=== PATIENT | female | born 1940 | race Caucasian/White ===

== ENCOUNTER → 2016-07-09 | Outpatient (CLI) | payer OTHER ==
[~2016-07-09] MED LIST: ACET325T96 PO; AMLO-110 PO; ASCO500C43 PO; ATOR-24 PO; CALCTAB5 PO; CHOL200027 PO; EFFSR75 PO; ENAL10TA88 PO; FRS/40 PO; MCTP TOP; METO50TA16 PO; MRLP120 PO; MULT-190 PO; MULTTAB58 PO; NVLGI; PANT1TAB48 PO; TOLT1CAP3 PO
[2016-07-09 12:04] LABS: HEMATOCRIT 39.3 % (37-47); MEAN CELL VOLUME 85.8 fL (80-100); MEAN CORPUSCULAR HEMOGLOBIN 27.3 pg (25-34); MEAN CORPUSCULAR HGB CONC 31.8 g/dl (32-36); MEAN PLATELET VOLUME 9.8 fL (7.4-10.4); PLATELET COUNT 213 K/uL (130-400); RED BLOOD COUNT 4.58 M/uL (4.2-5.4); WHITE BLOOD COUNT 9.52 K/uL (4.8-10.8)
[2016-07-09 12:14] LABS: ESTIMATED AVERAGE GLUCOSE 157 mg/dl; HA1C FLAG Normal (Normal)
[2016-07-09 12:17] LABS: BLOOD UREA NITROGEN 35 mg/dl (7-18); GLUCOSE 158 mg/dl (70-99)
[2016-07-09 12:18] LABS: BUN/CREATININE RATIO 22.1 (10-20); CALCIUM 9.2 mg/dl (8.5-10.1); CARBON DIOXIDE 29 mmol/L (21-32); CHLORIDE 104 mmol/L (98-107); PHOSPHORUS 2.8 mg/dl (2.5-4.9); POTASSIUM 4.5 mmol/L (3.5-5.1); SODIUM 141 mmol/L (136-145)
[2016-07-09 12:31] LABS: URINE PROTIEN/CREAT RATIO 0.9 (0-0.2); URINE TOTAL PROTEIN 78.9 mg/dl (0-11.9)
== END | disposition home or self-care (01) ==
LOC: C.LAB 10:44
PROVIDERS: ATTEND Internal Medicine Nephrology
DX: D64.9 Anemia, unspecified (principal); N18.3 Chronic kidney disease, stage 3 (moderate); I12.9 Hypertensive chronic kidney disease with stage 1 through stage 4 chronic kidney disease, or unspecified chronic kidney disease; N25.81 Secondary hyperparathyroidism of renal origin; E11.22 Type 2 diabetes mellitus with diabetic chronic kidney disease

== ENCOUNTER → 2016-08-23 | Outpatient (CLI) | payer OTHER ==
[2016-08-23 12:09] LABS: HEMATOCRIT 38.1 % (37-47); MEAN CELL VOLUME 84.5 fL (80-100); MEAN CORPUSCULAR HEMOGLOBIN 27.5 pg (25-34); MEAN CORPUSCULAR HGB CONC 32.5 g/dl (32-36); MEAN PLATELET VOLUME 9.7 fL (7.4-10.4); PLATELET COUNT 234 K/uL (130-400); RED BLOOD COUNT 4.51 M/uL (4.2-5.4); WHITE BLOOD COUNT 6.61 K/uL (4.8-10.8)
[2016-08-23 12:27] LABS: URINE APPEARANCE CLEAR (CLEAR); URINE BILIRUBIN NEG (NEG); URINE COLOR YELLOW; URINE NITRITE NEG (NEG); URINE SPECIFIC GRAVITY 1.009 (1.000-1.030); UROBILINOGEN NEG (NEG)
[2016-08-23 12:32] LABS: ALT/SGPT 20 U/L (12-78); AST/SGOT 18 U/L (15-37); BLOOD UREA NITROGEN 41 mg/dl (7-18); BUN/CREATININE RATIO 27.4 (10-20); CALCIUM 9.1 mg/dl (8.5-10.1); CARBON DIOXIDE 27 mmol/L (21-32); CHLORIDE 105 mmol/L (98-107); GLUCOSE 164 mg/dl (70-99); POTASSIUM 4.4 mmol/L (3.5-5.1); SODIUM 142 mmol/L (136-145)
[2016-08-23 12:37] LABS: ALKALINE PHOSPHATASE 98 U/L (45-117); CHOLESTEROL 239 mg/dl (0-200); CHOLESTEROL/HDL RATIO 5.6; HDL CHOLESTEROL 43 mg/dl; LDL CHOLESTEROL CALCULATED 145 mg/dl; PHOSPHORUS 3.1 mg/dl (2.5-4.9); TRIGLYCERIDES 256 mg/dl (0-150); VERY LOW DENSITY LIPOPROT CALC 51 mg/dl
[2016-08-23 12:38] LABS: URINE PROTIEN/CREAT RATIO 0.8 (0-0.2); URINE TOTAL PROTEIN 16.7 mg/dl (0-11.9)
[2016-08-23 12:39] LABS: MANUAL MICROSCOPIC REQUIRED? NO; REVIEW REQ? NO
== END | disposition home or self-care (01) ==
LOC: C.LAB 10:26
PROVIDERS: ATTEND Family Medicine
DX: I12.9 Hypertensive chronic kidney disease with stage 1 through stage 4 chronic kidney disease, or unspecified chronic kidney disease (principal); E78.5 Hyperlipidemia, unspecified; D64.9 Anemia, unspecified; N25.81 Secondary hyperparathyroidism of renal origin

== ENCOUNTER → 2016-10-02 | Outpatient (CLI) | payer OTHER ==
--- NOTE | 2016-10-03 14:06 | MAMMOGRAPHY REPORT ---
BILATERAL DIGITAL SCREENING MAMMOGRAM WITH CAD: 10/02/2016 CLINICAL HISTORY: Routine screening. Patient has no complaints. TECHNIQUE: Bilateral CC, MLO and CC views with nipples in profile were obtained. Current study was also evaluated with a Computer Aided Detection (CAD) system. COMPARISON: Comparison is made to exams dated: 09/12/2015 mammogram, 08/12/2012 mammogram, 10/11/2011 [facility] mogram, 04/09/2011 mammogram, 04/04/2010 mammogram - [facility], and 09/26/2008. BREAST COMPOSITION: There are scattered areas of fibroglandular density in both breasts. FINDINGS: There are mild vascular calcifications and scattered round and punctate benign-appearing m icrocalcifications in the breasts. No suspicious mass, architectural distortion or cluster of suspi cious microcalcifications is seen. IMPRESSION: ACR BI-RADS CATEGORY 1: NEGATIVE There is no mammographic evidence of malignancy. A 1 year screening mammogram is recommended. The p atient will receive written notification of the results. Approximately 10% of breast cancers are not detected with mammography. A negative mammographic repor t should not delay biopsy if a clinically suggestive mass is present. Christianne Forrester M.D. ay/:10/02/2016 15:47:53 Passenger Elevator Operator: Shaina COLIN(Cayla)(M), [facility] letter sent: Normal 1/2 BI-RADS Code: ACR BI-RADS Category 1: Negative
== END | disposition home or self-care (01) ==
LOC: C.MAMM 13:39
PROVIDERS: ATTEND Family Medicine
DX: Z12.31 Encounter for screening mammogram for malignant neoplasm of breast (principal)

== ENCOUNTER → 2016-10-11 | Outpatient (CLI) | payer OTHER ==
--- NOTE | 2016-10-12 13:58 | DIAGNOSTIC IMAGING REPORT ---
MAXILLOFACIAL CT WITH CONTRAST CT DOSE: 133.42 mGy.cm CLINICAL HISTORY: Large mass on palate. TECHNIQUE: Axial images through the face were obtained following intravenous injection 119 cc Optiray 320 IV. Sagittal and coronal reconstructions were viewed. COMPARISON STUDY: MRI of the brain April 15, 2007. FINDINGS: Visualized portions of the intracranial contents are unremarkable. Orbits are within normal limits. Mastoid air cells are clear. Note is made of a 9 mm periapical lucency of the symphysis of the mandible shown on axial image 192 of 241. This is associated with the roots for the medial mandibular incisors. Note is made of a 2 x 1.7 cm mixed attenuation destructive focus within the right anterior aspect of the maxilla which extends into the hard palate. This has an enhancing irregular rind with central hypodensity. This erodes through the cortex. This is associated with the roots of the right medial and lateral maxillary incisors. A prominent right level 2 lymph node measures 9 mm in short axis diameter. Slight asymmetry is noted within visualized portions of the lingual tonsils. This is only partially imaged on this exam. IMPRESSION: 1. 2 x 1.7 cm mass-like abnormality with associated bony erosion of the right anterior maxilla, associated with the roots of the right lateral and medial maxillary incisors. This is nonspecific and could reflect an infectious etiology however malignancy is within the differential given the aggressive appearance. 2. 9 mm periapical lucency of the symphysis of the mandible associated with the roots of the bilateral medial incisors. This is also nonspecific and likely odontogenic. 3. Prominent but nonenlarged right level 2 cervical lymph node. Electronically signed by: Emigdio Ibrahim M.D. 10/12/2016 1:57 PM Dictated Date/Time: 10/11/2016 2:43 PM
== END | disposition home or self-care (01) ==
LOC: C.CTS 12:54
PROVIDERS: ATTEND Dentist Oral and Maxillofacial Surgery
DX: R22.0 Localized swelling, mass and lump, head (principal)

== ENCOUNTER 2016-12-03 11:56 | Day surgery (SDC) | payer OTHER ==
[2016-11-13 14:54] VITALS: BMI 40.0
--- NOTE | 2016-11-13 15:26 | PAT Medication Instructions ---
Service Date Nov 13, 2016. Current Home Medication List Acetaminophen Tab (Tylenol), 650-975 MG PO BID PRN for PRN Amlodipine (Norvasc), 5 MG PO BID Ascorbic Acid (Vitamin C 500 mg), 500 MG PO BID Atorvastatin (Lipitor), 40 MG PO QPM Calcium (Caltrate), 600 MG PO BID Cholecalciferol (Vitamin D-3), 1 TAB PO QAM Enalapril (Vasotec), 20 MG PO BID Furosemide (Lasix), 40 MG PO QAM Insulin Aspart (Novolog), DIRECTED Metoprolol Tartrate (Lopressor) (Lopressor), 50 PO BID Multiple Vitamin (Multivitamin), 1 TAB PO QAM Ocuvite Preservision (Ocuvite Preservision), 1 TAB PO BID Pantoprazole (Protonix), 40 MG PO QAM Polyethylene (Miralax), 1 DOSE PO DAILY PRN for PRN Tolterodine Tartrate (Tolterodine Tartrate ER), 2 MG PO BID Venlafaxine Ext Rel (Effexor Extended Rel *), 75 MG PO BID Medication Instructions For Your Scheduled Surgery - Keep at basal rate as of midnight the night before surgery. No bolus. : Insulin Aspart (Novolog), DIRECTED - Hold the following medications 24 hours prior to surgery: Enalapril (Vasotec), 20 MG PO BID - Hold the following medications the morning of surgery: Ascorbic Acid (Vitamin C 500 mg), 500 MG PO BID Calcium (Caltrate), 600 MG PO BID Furosemide (Lasix), 40 MG PO QAM Multiple Vitamin (Multivitamin), 1 TAB PO QAM Polyethylene (Miralax), 1 DOSE PO DAILY PRN for PRN Cholecalciferol (Vitamin D-3), 1 TAB PO QAM Ocuvite Preservision (Ocuvite Preservision), 1 TAB PO BID - Take the following medications the morning of surgery with a sip of water OTHERWISE NOTHING TO EAT OR DRINK AFTER MIDNIGHT: Acetaminophen Tab (Tylenol), 650-975 MG PO BID PRN for PRN (may take if needed up to 4 hours prior to surgery) Amlodipine (Norvasc), 5 MG PO BID Tolterodine Tartrate (Tolterodine Tartrate ER), 2 MG PO BID Venlafaxine Ext Rel (Effexor Extended Rel *), 75 MG PO BID Metoprolol Tartrate (Lopressor) (Lopressor), 50 PO BID Pantoprazole (Protonix), 40 MG PO QAM - Take the following medications as scheduled the night before surgery: Acetaminophen Tab (Tylenol), 650-975 MG PO BID PRN for PRN Amlodipine (Norvasc), 5 MG PO BID Atorvastatin (Lipitor), 40 MG PO QPM Ascorbic Acid (Vitamin C 500 mg), 500 MG PO BID Calcium (Caltrate), 600 MG PO BID Tolterodine Tartrate (Tolterodine Tartrate ER), 2 MG PO BID Venlafaxine Ext Rel (Effexor Extended Rel *), 75 MG PO BID Metoprolol Tartrate (Lopressor) (Lopressor), 50 PO BID Ocuvite Preservision (Ocuvite Preservision), 1 TAB PO BID If you have any questions please call us at [phone] or [phone] or [phone]
[2016-11-13 16:10] LABS: BASO % 0.2 %; BASO ABS # 0.02 K/uL (0-0.2); COMPLETE YES; EOS % 2.6 %; HEMATOCRIT 37.1 % (37-47); IG% 0.2 %; LYMPH % 27.6 %; LYMPH ABS # 2.24 K/uL (1.2-3.4); MEAN CELL VOLUME 86.9 fL (80-100); MEAN CORPUSCULAR HEMOGLOBIN 27.4 pg (25-34); MEAN CORPUSCULAR HGB CONC 31.5 g/dl (32-36); MEAN PLATELET VOLUME 9.6 fL (7.4-10.4); MONO % 11.2 %; NEUT % 58.2 %; PLATELET COUNT 216 K/uL (130-400); RED BLOOD COUNT 4.27 M/uL (4.2-5.4); WHITE BLOOD COUNT 8.12 K/uL (4.8-10.8)
[2016-11-13 16:17] LABS: PROTHROMBIN TIME (PATIENT) 10.6 SECONDS (9.0-12.0)
[2016-11-13 16:25] LABS: BUN/CREATININE RATIO 22.2 (10-20); CALCIUM 9.3 mg/dl (8.5-10.1); CREATININE 1.2 mg/dl (0.60-1.20); POTASSIUM 4.7 mmol/L (3.5-5.1)
[~2016-12-03] VITALS: Ht 167.6 cm; Wt 112.6 kg
[~2016-12-03 11:56] MED LIST changes: +CEFAZOLIN 2000 MG/60 ML D5W IV SCH; +LACTATED RINGER'S 1000ML 1,000 ML IV SCH; -MCTP TOP; +OXYMETAZOLINE HCL 0.05% NA SPR 15 ML BTL ONE
[2016-12-03 12:43] VITALS: BP 165/71; PULSE 63; TEMP 36.8; BMI 40.0
[2016-12-03 12:49] VITALS: Ht 167.6 cm; Wt 112.6 kg
[2016-12-03] MEDS ORDERED: PHENYLEPHRINE HCL INJ 10 MG/ML VIAL ONE (13:13)
[2016-12-03] MEDS ORDERED: EpHEDrine SULFATE INJ 50 MG/ML AMP ONE (13:13)
[2016-12-03] MEDS ORDERED: LIDOCAINE HCL 2% 2 ML VIAL (20MG/ML) ONE (13:13)
[2016-12-03] MEDS ORDERED: SUCCINYLCHOLINE CHLORIDE 20 MG/ML 10 ML VIAL IV ONE (13:13)
[2016-12-03] MEDS ORDERED: DEXAMETHASONE SOD INJ 4 MG/ML VIAL ONE (13:13)
[2016-12-03] MEDS ORDERED: NEOSTIGMINE METHYLSULFATE 5 MG/5 ML SYR ONE (13:14)
[2016-12-03] MEDS ORDERED: PROPOFOL IV EMULSION 10 MG/ML 20 ML VIAL IV ONE (13:14)
[2016-12-03] MEDS ORDERED: ROCURONIUM BROMIDE 10 MG/ML 5 ML VIAL ONE (13:14)
[2016-12-03] MEDS ORDERED: FENTANYL CITRATE INJ 50 MCG/1 ML 2 ML VIAL ONE (13:14)
[2016-12-03] MEDS ORDERED: ONDANSETRON INJ 2 MG/ML 2 ML VIAL ONE (13:14)
[2016-12-03] MEDS ORDERED: GLYCOPYRROLATE INJ 0.2 MG/ML VIAL ONE (13:14)
[2016-12-03] MEDS ORDERED: CHLORHEXIDINE GLUCONATE 0.12% 15 ML UDP ONE (14:02)
[2016-12-03] MEDS ORDERED: BUPIVACAINE/EPINEPHRINE 0.5% 1:200,000 1.8 ML CARP ONE (14:03)
--- NOTE | 2016-12-03 14:12 | History & Physical Bridge Note ---
H&P Re-Evaluation Bridge Note: I have examined the patient, reviewed the History & Physical and in the interval since the performance of the History & Physical I have noted the following changes of clinical significance: No changes noted
[2016-12-03] MEDS ORDERED: MEPERIDINE HCL 25 MG/ML CARP IV PRN (14:30)
[2016-12-03] MEDS ORDERED: HYDROmorphone INJ 2 MG/ML SYR/VIAL IV PRN (14:30)
[2016-12-03] MEDS ORDERED: PHENYLEPHRINE 100MCG/ML 5ML SYR IV PRN (14:30)
[2016-12-03] MEDS ORDERED: FENTANYL CITRATE INJ 50 MCG/1 ML 2 ML VIAL IV PRN (14:30)
[2016-12-03] MEDS ORDERED: EpHEDrine SULFATE INJ 50 MG/ML AMP IV PRN (14:30)
[2016-12-03] MEDS ORDERED: FLUMAZENIL 0.1 MG/1 ML 10 ML VIAL IV PRN (14:30)
[2016-12-03] MEDS ORDERED: ATROPINE SULFATE 0.1 MG/ML 5ML SYR IV PRN (14:30)
[2016-12-03] MEDS ORDERED: ONDANSETRON INJ 2 MG/ML 2 ML VIAL IV PRN ×2 (14:30→16:00)
[2016-12-03] MEDS ORDERED: LABETALOL HCL IV 5 MG/ML 20ML IV PRN (14:30)
[2016-12-03] MEDS ORDERED: NALOXONE HCL 0.4 MG/1 ML VIAL/CARP IV PRN (14:30)
[2016-12-03] MEDS ORDERED: D5W AND 1/2NSS + 20MEQ KCL 1,000 ML IV SCH (15:52)
--- NOTE | 2016-12-03 15:52 | [facility] Post Operative Brief Note ---
Immediate Operative Summary Operative Date Dec 03, 2016. Pre-Operative Diagnosis Palatal Lesion, Infected Teeth x 9 Post-Operative Diagnosis Palatal Lesion, Infected Teeth Procedure(s) Performed Excision and Biopsy of Palatal Lesion and Removal of Infected Teeth Associated with Large Cyst Surgeon Dr. Sachin Acosta Special Crimes Investigator Surgeon(s) Efren Velasco, GOSIA Estimated Blood Loss 100mL Findings carious teeth and large defect of the right palate at lest 1 x 1 cm with loss of bone and exposure of the nasal floor Specimens Specimen A. Drains none Anesthesia ga and local Complication(s) None Disposition Recovery Room / PACU
[2016-12-03] MEDS ORDERED: MoRPHine SULFATE 2 MG/ML CARP IV PRN (16:00)
[2016-12-03] MEDS ORDERED: OXYMETAZOLINE HCL 0.05% NA SPR 15 ML BTL PRN (16:00)
[2016-12-03] MEDS ORDERED: HYDROCODONE/ACETAMOPHEN 5/325MG TAB PO PRN (16:00)
[2016-12-03] MEDS ORDERED: LORAZEPAM INJ 1 MG in SYRINGE 0 ML IV PRN (16:00)
--- NOTE | 2016-12-03 16:00 | Discharge Instructions ---
Discharge Instructions Date of Service Dec 03, 2016. Visit Reason for Visit: Palatal Lesion Discharge Discharge Diagnosis / Problem: large infected lesion of the right palate Discharge Goals Goal(s): Decrease discomfort, Improve function Activity Recommendations Activity Limitations: as noted below Lifting Limitations: no more than 10 pounds Exercise/Sports Limitations: until after follow-up appointment May Resume Sexual Activity: after follow-up appointment Shower/Bathe: tomorrow Driving or Machine Use: resume 3 days after discharge Weightbearing Status: Left weightbearing (as tolerated), Right weightbearing ( as tolerated) soft food only Anesthesia . Post Anesthesia Instructions: If you have had General Anesthesia or IV Sedation: * Do not drive today. * Resume driving when surgeon permits. * Do not make important decisions or sign legal documents today. * Call surgeon for: 1. Temperature elevations greater than 101 degrees F. 2. Uncontrollable pain. 3. Excessive bleeding. 4. Persistent nausea and vomiting. 5. Medication intolerance (nausea, vomiting or rash). * For nausea and vomiting use only clear liquids such as: tea, soda, bouillon until nausea subsides, then gradually increase diet as tolerated. * If you have any concerns or questions, call your surgeon's office. If physician is unavailable and it is an emergency, call 911 or go to the nearest emergency room. . Instructions / Follow-Up Instructions / Follow-Up ADDITIONAL ACTIVITY RECOMMENDATIONS: * [place] teeth after every meal. It is very important to keep your mouth clean to prevent infection. SPECIAL CARE INSTRUCTIONS: * Keep ice on the side of your face for the next 24 to 36 hours. This will help keep the swelling down. * After 36 hours, apply heat (hot water bottle or heating pad) for the next two days, as often as possible. * Tomorrow start rinsing your mouth with 1/2 teaspoon salt in 8 ounces warm water. This rinse should be used every 4-6 hours. * You may experience slight nausea. To prevent this, never take your medication on an empty stomach. If nauseated, take small sips of ruma narendra until you feel better; then you may start on applesauce and toast. * Some swelling is common. It should gradually decrease within 4-5 days. * A certain amount of bleeding is to be expected. It is often possible to control mild oozing by placing folded gauze over the area and biting down for 30 minutes. If you are unable to control excessive bleeding, call your doctor at . * You may experience some discomfort for a few days. If pain or swelling increases, call your doctor immediately at . Diet Recommendations Recommended Home Diet: diabetes diet Diet Texture: Dental Soft (bite-sized) Procedures Procedures Performed: Excision and Biopsy of Palatal Lesion and Removal of Infected Teeth Associated with Large Cyst Pending Studies Studies pending at discharge: no Work Instructions Return To Work: after follow-up Lifting Limitations: no more than 10 pounds School Instructions Return To School: after follow-up Medical Emergencies . Who to Call and When: Medical Emergencies: If at any time you feel your situation is an emergency, please call 911 immediately. . Non-Emergent Contact Non-Emergency issues call your: Hospital Doctor Contact Number: [phone] Call Non-Emergent contact if: you have a fever, temperature is above 101.5, your pain is not controlled, your pain is worsening, wound has increased drainage, wound has increased redness, you have any medication questions . . "Provider Documentation" section prepared by Sachin Acosta. . [place] Drug Monitoring Program Search Results: patient reviewed within database Drug Monitoring Findings: as expected
[2016-12-03] MEDS ORDERED: HydrALAZINE HCL 20 MG/ML VIAL IV. STA (16:24)
[2016-12-03] MEDS ORDERED: HydrALAZINE HCL 20 MG/ML VIAL ONE (16:25)
--- NOTE | 2016-12-03 16:42 | Anesthesiology Progress Note ---
Anesthesia Post Op Note Date & Time Dec 03, 2016 at 16:42 Vital Signs Pain Intensity: 0 Vital Signs Past 12 Hours Date Time Temp Pulse Resp B/P (MAP) Pulse Ox O2 Delivery O2 Flow Rate FiO2 12/03/16 16:37 36.6 59 16 153/59 (82) 97 Room Air 12/03/16 16:36 153/59 12/03/16 16:34 169/60 12/03/16 16:32 58 19 99 12/03/16 16:32 60 19 12/03/16 16:31 164/69 12/03/16 16:27 56 11 12/03/16 16:27 56 11 99 12/03/16 16:26 173/69 12/03/16 16:22 56 12 100 12/03/16 16:22 56 12 12/03/16 16:21 199/75 12/03/16 16:17 56 13 12/03/16 16:17 55 13 100 12/03/16 16:16 186/71 12/03/16 16:12 55 10 100 12/03/16 16:12 56 10 12/03/16 16:11 182/71 12/03/16 16:10 54 12 12/03/16 16:10 54 12 99 12/03/16 16:08 187/73 12/03/16 16:06 190/60 12/03/16 16:05 54 12 99 12/03/16 16:05 54 12 12/03/16 16:01 187/62 12/03/16 16:00 52 16 100 12/03/16 16:00 52 16 12/03/16 16:00 36.2 52 19 187/62 100 Mask 10 12/03/16 12:49 Room Air 12/03/16 12:43 36.8 63 20 165/71 Notes Mental Status: alert / awake / arousable, participated in evaluation Pt Amnestic to Procedure: Yes Nausea / Vomiting: adequately controlled Pain: adequately controlled Airway Patency, RR, SpO2: stable & adequate BP & HR: stable & adequate Hydration State: stable & adequate Anesthetic Complications: no major complications apparent
[2016-12-03 16:50] VITALS: BP 147/53; PULSE 62; TEMP 37.3; O2SAT 94
[2016-12-03 17:20] VITALS: BP 129/42; PULSE 59; TEMP 36.2; O2SAT 94
[2016-12-03 17:50] VITALS: BP 147/56; PULSE 55; TEMP 36.4; O2SAT 95
[2016-12-03 18:20] VITALS: BP 159/63; PULSE 57; TEMP 36.3; O2SAT 94
--- NOTE | 2016-12-04 15:20 | OPERATIVE REPORT ---
DATE OF OPERATION: 12/03/2016 OPERATION: Removal of carious teeth and 1 cm cyst of the right maxillary palate and alveolar ridge. SURGEON: Dr. Sachin Acosta. The patient was worked up in the appropriate manner and after getting medical clearance as well as cardiac clearance via an echocardiogram the patient was prepared for general anesthesia via an orotracheal intubation for the removal of multiple carious teeth and a large radiolucent area of the maxilla. When the patient first came to see me she had a rather extensive palatal swelling. CT scanning demonstrated a rather large defect of the right maxilla with extensive bone loss involving the alveolar ridge and the floor of the nose. As a matter of fact the only thing the palate from the floor of the nose was the mucoperiosteal tissue of the nose as well as the mucoperiosteal tissue of the palate. There was no intervening bone as there was a through and through defect in this area. At this time after the patient was prepped in the usual manner, the facial area was cleansed with Betadine. At this time, the facial area was then prepped in the usual manner. Sterile dressings were applied. Local anesthesia was infiltrated into the appropriate areas of the maxilla and right mandible. After adequate period of time to allow for hemostasis and local anesthetic effect. The facial area was prepped in the usual manner and sterile dressings were applied. I turned my attention first to the maxilla. The patient had approximately 8 carious teeth that were periodontally involved and needed extraction. With the use of a dental forceps, I was able to remove these carious teeth and then curettage and irrigated the sockets. Because of the irregularities of the teeth, the patient needed a rather aggressive alveoplasty to trim the bone back into a more ideal position to allow for the fabrication of dentures in the future. After this was accomplished with the use of a 15 blade, a large mucoperiosteal incision was created from the right first molar area across the midline to the left first molar area. With use of periosteal elevators, I was able to reflect the mucoperiosteal tissue anteriorly up to the anterior nasal spine and on the palate I was able to reflect the mucoperiosteal tissues back to literally degloved the palate. In order to do this, I had to resect the anterior neurovascular bundle. This was done in the following manner. Once the neurovascular bundle was visualized, I used an electrocautery instrument and excised the contents of the neurovascular bundle and then cauterizing both the stumps. I then curettaged the area vigorously. I now was able to get free axis to the palate. By doing so, I fell into an area of a lot of very dense gritty tissue on the right maxilla. There was a defect over 1 cm in diameter that extended from the midline of the palate to the alveolar ridge on the upper right side. When I started to remove this very dense gritty tissue I was able to dissect it freely from the nasal mucoperiosteal tissue and noted that there was no bone the palate from the nose. There was a through and through defect involving the lateral and cuspid area of the maxilla also on the upper right side. There was a through and through defect from the palate to the anterior vestibule. Nevertheless, with careful dissection, I was able to remove the remnants and got back to good healthy bone. Great care was taken to avoid any tissue breakdown into the floor of the nose. Once this was accomplished, I now completed my alveoplasty by smoothing and recontouring the bone to allow for nice U-shaped alveolar ridge. Each socket was now irrigated and curettaged. Once I was satisfied that all of the remnants of the cystic material were removed from the defect I once again used the electrocautery instrument to coagulate any bleeders on the palate. I then trimmed the tissues and repositioned the tissues over the alveolar ridge and with the use of a 4-0 Vicryl suture, I was able to suture in both an interrupted and continuous fashion the mucoperiosteal tissues to allow for a good watertight closure. When all was said and done, we had excellent closure of the mucoperiosteal flaps with good ridge form for the fabrication of future dentures. There were no rents in the mucoperiosteal tissues that would cause an oronasal fistula. At this time, I irrigated the contents of the oral cavity. I noted that there was no bleeding. I also irrigated the nasal cavity and could not find any rents in the mucoperiosteal tissue of the floor of the nose. At this time, I turned my attention to tooth #31, which was just periodontally involved tooth and this tooth was easily removed with the use of a dental forceps. The socket was curettaged and sutured closed with a Vicryl suture. At this time, the oropharyngeal throat pack was removed. The oral cavity was irrigated and suctioned dried and an orogastric tube was placed and evacuated the contents of the stomach. Being satisfied that the treatment plan was carried out as planned we now turned the patient over to the anesthesia department. She was allowed to recover in the usual manner. Upon full recovery she was extubated and transported to the recovery room breathing in satisfactory condition with all vital signs stable. In the recovery room, I evaluated Sonam, she was doing quite well. She was not having any bleeding or excessive swelling. I then discussed her treatment planning with her daughter in the outpatient area and they will be seeing me in my [place] office in about 10 days. They do have prescriptions at home for antibiotics and pain management. They know to call their physician if there are any issues concerning her respiratory status or any issues with any underlying medical disorders. At this time, she is doing quite well from both the general anesthesia, the oral surgery and her medical management seems to be well controlled. Postoperative instructions given to the patient as well as the prescriptions. She has a good understanding of the outcome of the surgery and the recommended postoperative care. Again, we will be following her in approximately 7-10 days as an outpatient. Again, the procedure performed was removal of the following teeth, teeth #4, 6, 7, 8, 9, 10, 11, 12 and 31, the performance of an alveoplasty involving 2 quadrants of the right and left maxilla and the excision of a rather extensive defect of the maxilla in approximately 1 to 1.5 cm in total diameter with bony destruction involving the right maxilla, palate and alveolar process. The contents of the cystic material and/or granulation fibrous tissue were sent for pathologic determination to [facility] pathology department. This is pending. The patient will be seeing me in my office in approximately 7-10 days. I attest to the content of the Intraoperative Record and any orders documented therein. Any exception s are noted below.
== END 2016-12-03 18:53 | disposition home or self-care (01) ==
LOC: C.ACU 11:56
PROVIDERS: ATTEND Dentist Oral and Maxillofacial Surgery
DX: K09.1 Developmental (nonodontogenic) cysts of oral region (principal); K02.9 Dental caries, unspecified; E11.9 Type 2 diabetes mellitus without complications; Z85.42 Personal history of malignant neoplasm of other parts of uterus; M19.90 Unspecified osteoarthritis, unspecified site; E78.00 Pure hypercholesterolemia, unspecified; F41.9 Anxiety disorder, unspecified; F32.9 Major depressive disorder, single episode, unspecified; K21.9 Gastro-esophageal reflux disease without esophagitis; E03.9 Hypothyroidism, unspecified; Z79.4 Long term (current) use of insulin; M06.9 Rheumatoid arthritis, unspecified; E66.9 Obesity, unspecified; Z90.710 Acquired absence of both cervix and uterus; Z90.89 Acquired absence of other organs; Z98.41 Cataract extraction status, right eye; Z98.42 Cataract extraction status, left eye; N18.3 Chronic kidney disease, stage 3 (moderate); I12.9 Hypertensive chronic kidney disease with stage 1 through stage 4 chronic kidney disease, or unspecified chronic kidney disease
CPT/HCPCS: 21030; 41874; D7140

== ENCOUNTER → 2017-03-20 | Outpatient (CLI) | payer OTHER ==
[~2017-03-20] MED LIST changes: -ACET325T96 PO; -CEFAZOLIN 2000 MG/60 ML D5W IV SCH; -LACTATED RINGER'S 1000ML 1,000 ML IV SCH; -OXYMETAZOLINE HCL 0.05% NA SPR 15 ML BTL ONE
[2017-03-20 15:41] LABS: HEMATOCRIT 37.4 % (37-47); MEAN CELL VOLUME 85.8 fL (80-100); MEAN CORPUSCULAR HEMOGLOBIN 27.8 pg (25-34); MEAN CORPUSCULAR HGB CONC 32.4 g/dl (32-36); MEAN PLATELET VOLUME 9.5 fL (7.4-10.4); PLATELET COUNT 219 K/uL (130-400); RED BLOOD COUNT 4.36 M/uL (4.2-5.4); WHITE BLOOD COUNT 8.04 K/uL (4.8-10.8)
[2017-03-20 15:51] LABS: URINE APPEARANCE CLEAR (CLEAR); URINE BILIRUBIN NEG (NEG); URINE COLOR YELLOW; URINE NITRITE NEG (NEG); UROBILINOGEN NEG (NEG)
[2017-03-20 15:53] LABS: MANUAL MICROSCOPIC REQUIRED? NO; REVIEW REQ? NO
[2017-03-20 16:12] LABS: ALT/SGPT 22 U/L (12-78); AST/SGOT 22 U/L (15-37); BLOOD UREA NITROGEN 23 mg/dl (7-18); BUN/CREATININE RATIO 21.4 (10-20); CALCIUM 9.2 mg/dl (8.5-10.1); CARBON DIOXIDE 29 mmol/L (21-32); CHLORIDE 104 mmol/L (98-107); CREATININE 1.08 mg/dl (0.60-1.20); GLUCOSE 122 mg/dl (70-99); POTASSIUM 4.1 mmol/L (3.5-5.1); SODIUM 139 mmol/L (136-145)
[2017-03-20 16:13] LABS: CREATININE, URINE 13.5 mg/dl; URINE PROTIEN/CREAT RATIO 3.2 (0-0.2); URINE TOTAL PROTEIN 43.8 mg/dl (0-11.9)
[2017-03-20 16:22] LABS: ALB/GLOB RATIO 0.7 (0.9-2); ALKALINE PHOSPHATASE 124 U/L (45-117)
[2017-03-21 05:43] LABS: ESTIMATED AVERAGE GLUCOSE 174 mg/dl; HA1C FLAG Normal (Normal)
== END | disposition home or self-care (01) ==
LOC: C.LAB 14:08
PROVIDERS: ATTEND Internal Medicine Nephrology
DX: N25.81 Secondary hyperparathyroidism of renal origin (principal); I12.9 Hypertensive chronic kidney disease with stage 1 through stage 4 chronic kidney disease, or unspecified chronic kidney disease; N18.3 Chronic kidney disease, stage 3 (moderate); D64.9 Anemia, unspecified; E11.9 Type 2 diabetes mellitus without complications; K21.9 Gastro-esophageal reflux disease without esophagitis

== ENCOUNTER → 2017-04-21 | Outpatient (CLI) | payer OTHER ==
[~2017-04-21] MED LIST changes: +PANT1TAB3 PO; -PANT1TAB48 PO
[2017-04-21 12:49] LABS: URINE APPEARANCE CLEAR (CLEAR); URINE BILIRUBIN NEG (NEG); URINE COLOR YELLOW; URINE NITRITE NEG (NEG); URINE SPECIFIC GRAVITY 1.017 (1.000-1.030); UROBILINOGEN NEG (NEG)
[2017-04-21 12:50] LABS: BLOOD UREA NITROGEN 33 mg/dl (7-18); BUN/CREATININE RATIO 28.8 (10-20); CALCIUM 8.8 mg/dl (8.5-10.1); CARBON DIOXIDE 28 mmol/L (21-32); CHLORIDE 101 mmol/L (98-107); CREATININE 1.13 mg/dl (0.60-1.20); GLUCOSE 236 mg/dl (70-99); POTASSIUM 4.2 mmol/L (3.5-5.1); SODIUM 136 mmol/L (136-145)
[2017-04-21 12:52] LABS: ESTIMATED AVERAGE GLUCOSE 180 mg/dl; HA1C FLAG Normal (Normal)
[2017-04-21 12:59] LABS: MANUAL MICROSCOPIC REQUIRED? NO; REVIEW REQ? NO
[2017-04-21 13:41] LABS: CREATININE, URINE 83.2 mg/dl; URINE PROTIEN/CREAT RATIO 2.3 (0-0.2); URINE TOTAL PROTEIN 193.5 mg/dl (0-11.9)
== END | disposition home or self-care (01) ==
LOC: C.LAB 11:31
PROVIDERS: ATTEND Internal Medicine Nephrology
DX: E11.610 Type 2 diabetes mellitus with diabetic neuropathic arthropathy (principal); N25.81 Secondary hyperparathyroidism of renal origin; I10 Essential (primary) hypertension; N18.3 Chronic kidney disease, stage 3 (moderate); D64.9 Anemia, unspecified

== ENCOUNTER 2017-04-28 17:56 | Emergency (ER) | payer OTHER ==
[~2017-04-28] VITALS: Ht 167.6 cm; Wt 110.2 kg
[~2017-04-28 17:56] MED LIST changes: -FRS/40 PO
[2017-04-28 17:58] VITALS: TEMP 36.8; Ht 167.6 cm; Wt 110.2 kg
[2017-04-28] MEDS ORDERED: AMPICILLIN/SULBACTAM SOD INJ 3,000 MG in SODIUM CHLORIDE 0.9% 100ML 100 ML IV ONE (18:15)
--- NOTE | 2017-04-28 18:15 | EMERGENCY ROOM VISIT NOTE ---
History Report prepared by Ghanshyam: Darek Andrews Under the Supervision of: Dr. Isai Hooper M.D. First contact with patient: 18:02 Chief Complaint: INFECTION Stated Complaint: RT HAND SWELLING WITH RED LINE History of Present Illness The patient is a 76 year old female who presents to the Emergency Room with complaints of a possible hand infection beginning yesterday. Per , the patient noted that she had a red line running along her right hand starting yesterday. He notes that he was worried about a possible blood infection, prompting them to come to the emergency department today. The patient reports that her hand has been swollen for the past 3 weeks. She states that her swelling has not worsened over the last few days. She notes that she has not experienced symptoms like this previously. She also complains of chills that occur constantly. She denies any recent injury, trauma, and fever. She reports that she she has not used any antibiotics recently and does not use any medication that may suppress her immune system. Source of History: patient, family Onset: yesterday Position: hand (right) Quality: other (infection) Timing: constant Associated Symptoms: + chills Note: She complains of right handed edema. Review of Systems See HPI for pertinent positives & negatives. A total of 10 systems reviewed and were otherwise negative. Past Medical & Surgical Medical Problems: (1) 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 (2) Diabetic peripheral neuropathy associated with type 2 diabetes mellitus (3) Foot deformity (4) Foot drop (5) Loss of sensation Family History No pertinent family history stated. Social History Smoking Status: Never Smoker Marital Status: Occupation Status: retired Current/Historical Medications Scheduled Amlodipine (Norvasc), 5 MG PO BID Amoxicillin & Pot Clavulanate (Augmentin 875-125 mg), 875 MG PO BID Ascorbic Acid (Vitamin C 500 mg), 500 MG PO BID Aspirin (Aspirin Ec), 650 MG PO PRN Atorvastatin (Lipitor), 40 MG PO QPM Calcium Carbonate-Vitamin D W/ (Caltrate 600 Plus), 1 TAB PO BID Cholecalciferol (Vitamin D-3), 1 TAB PO QAM Enalapril (Vasotec), 20 MG PO BID Furosemide (Lasix), 40 MG PO QAM Insulin Aspart (novoLOG INSULIN PUMP ), 1 EA N/A UD Metoprolol Tartrate (Lopressor) (Lopressor), 50 PO BID Multiple Vitamin (Multivitamin), 1 TAB PO QAM Ocuvite Preservision (Ocuvite Preservision), 1 TAB PO BID Pantoprazole (Protonix), 40 MG PO QAM Venlafaxine Hcl (Venlafaxine Extended Rel), 75 MG PO DAILY Scheduled PRN Polyethylene (Miralax), 1 DOSE PO DAILY PRN for PRN Allergies Coded Allergies: Chlorhexidine (Verified Allergy, Unknown, RASH-PT DENIES, 11/13/16) Lidocaine (Verified Allergy, Unknown, nausea and vomiting with injection to shoulder, 11/13/16) Physical Exam Vital Signs Date Time Temp Pulse Resp B/P (MAP) Pulse Ox O2 Delivery O2 Flow Rate FiO2 04/28/17 19:31 80 20 204/97 97 Room Air 04/28/17 17:58 36.8 66 18 144/71 95 Room Air Physical Exam GENERAL: Patient is in no acute distress. HEENT: No acute trauma, normocephalic atraumatic, mucous membranes moist, no nasal congestion, no scleral icterus. NECK: No stridor, no adenopathy, no meningismus, trachea is midline. LUNGS: Clear to auscultation bilaterally, no wheeze, no rhonchi, breath sounds equal. HEART: 2/6 systolic murmur, RRR. ABDOMEN: Soft, nontender, bowel sounds positive, no hernias, no peritonitis. EXTREMITIES: Mild bilaterally pedal edema without cellulitis, swelling of the right hand especially dorsally, there is no gross deformity, swelling of the ventral wrist with an erythematous line from the base of the palm extending proximally group home up the forearm. This area is tender. Patient has no pain with movement of the wrist joint. NEUROLOGIC: Oriented x 3, no acute motor or sensory deficits, no focal weakness. SKIN: No rash, no jaundice, no diaphoresis. Medical Decision & Procedures ER Provider Diagnostic Interpretation: Radiology results as stated below per my review and radiologist interpretation: R WRIST W/NAVICULAR MIN 3 VIEWS FINDINGS: Osteopenia is noted. Numerous lucencies are noted. There is no acute fracture. Widening of the scapholunate interval is noted. There is moderate arthritis within several articulations, most pronounced within the radiocarpal joint. Soft tissue swelling is noted. IMPRESSION: 1. No acute fracture. 2. Widening of the scapholunate interval. While age indeterminate, this is likely chronic and suggests old scapholunate ligament tear. 3. Lucencies within the right wrist which are likely related to osteoarthritis. Erosions could appear similar although are considered less likely. 4. 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 Electronically signed by: Emigdio Ibrahim M.D. 04/28/2017 6:37 PM R HAND MIN 3 VIEWS ROUTINE FINDINGS: Osteopenia. This limits evaluation for nondisplaced fracture. Significant degenerative change is evident throughout the hand most significantly at the radial scaphoid articulation where there is subchondral cystic change as well as at the first interphalangeal joint and distal interphalangeal joint of the second finger. Diffuse soft tissue swelling along the dorsum and wrist noted. Altered configuration of the head of the third metacarpal may suggest the presence of erosions. Marginal erosion may also be present at the head of the proximal phalanx of the second finger. No soft tissue calcification. IMPRESSION: Findings raise concern for an inflammatory arthritis. Involvement of the radiocarpal articulation and potential erosion at the head of the third metacarpal raises concern for rheumatoid arthritis or another inflammatory arthritis. Electronically signed by: Bean Malcolm M.D. 04/28/2017 6:34 PM Laboratory Results 04/28/17 18:30 Red Blood Count 4.22, Mean Corpuscular Volume 84.6, Mean Corpuscular Hemoglobin 27.5, Mean Corpuscular Hemoglobin Concent 32.5, Mean Platelet Volume 9.4, Neutrophils (%) (Auto) 63.0, Lymphocytes (%) (Auto) 23.3, Monocytes (%) (Auto) 9.7, Eosinophils (%) (Auto) 3.4, Basophils (%) (Auto) 0.3, Neutrophils # (Auto) 5.80, Lymphocytes # (Auto) 2.15, Monocytes # (Auto) 0.89, Eosinophils # (Auto) 0.31, Basophils # (Auto) 0.03 04/28/17 18:30 Test 04/28/17 18:30 White Blood Count 9.21 K/uL (4.8-10.8) Red Blood Count 4.22 M/uL (4.2-5.4) Hemoglobin 11.6 g/dL (12.0-16.0) Hematocrit 35.7 % (37-47) Mean Corpuscular Volume 84.6 fL (80-100) Mean Corpuscular Hemoglobin 27.5 pg (25-34) Mean Corpuscular Hemoglobin Concent 32.5 g/dl (32-36) Platelet Count 297 K/uL (130-400) Mean Platelet Volume 9.4 fL (7.4-10.4) Neutrophils (%) (Auto) 63.0 % Lymphocytes (%) (Auto) 23.3 % Monocytes (%) (Auto) 9.7 % Eosinophils (%) (Auto) 3.4 % Basophils (%) (Auto) 0.3 % Neutrophils # (Auto) 5.80 K/uL (1.4-6.5) Lymphocytes # (Auto) 2.15 K/uL (1.2-3.4) Monocytes # (Auto) 0.89 K/uL (0.11-0.59) Eosinophils # (Auto) 0.31 K/uL (0-0.5) Basophils # (Auto) 0.03 K/uL (0-0.2) RDW Standard Deviation 43.3 fL (36.4-46.3) RDW Coefficient of Variation 14.1 % (11.5-14.5) Immature Granulocyte % (Auto) 0.3 % Immature Granulocyte # (Auto) 0.03 K/uL (0.00-0.02) Anion Gap 4.0 mmol/L (3-11) Est Creatinine Clear Calc Drug Dose 48.9 ml/min Estimated GFR () 48.1 Estimated GFR (Non- 41.5 BUN/Creatinine Ratio 21.2 (10-20) Calcium Level 9.3 mg/dl (8.5-10.1) Laboratory results reviewed by me. Medications Administered Medications (Trade) Dose Ordered Sig/Isabelle Route Start Time Stop Time Status Last Admin Dose Admin Ampicillin Sodium/ Sulbactam Sodium 3000 mg/Sodium Chloride 108 ml @ 200 mls/hr ONE ONCE IV 04/28/17 18:15 17 18:47 DC 04/28/17 18:45 200 MLS/HR ED Course 1803: The patient was evaluated in room B4. A complete history and physical exam was performed. 1815: Ampicillin Sodium/Sulbactam Sodium 3000mg/Sodium Chloride 108ml@200mls/hr IV 1916: Reevaluated the patient. Discussed results and discharge instructions: she verbalized understanding and agreement. The patient is ready for discharge. Medical Decision Differential diagnoses include: lymphangitis, septic joint, cellulitis, fracture , and dislocation. There is no leukocytosis or concerning anemia. No significant electrolyte abnormality or kidney failure. Films of the right hand and right wrist show arthritis, no dislocation or fracture. The patient presents with some pain and redness to the right ventral wrist. She seems to have the start of a cellulitis or lymphangitis in this area. She was given IV Unasyn. The patient is not septic, she is not toxic or currently febrile. She is being discharged on Augmentin. She was encouraged to see her doctors office this week and to return here if worsening. Of note, the patient's blood pressure was somewhat elevated upon discharge. She will take her blood pressure medications when she returns home. She was asymptomatic with the pressure reading. Medication Reconcilliation Current Medication List: was personally reviewed by me Blood Pressure Screening Patient's blood pressure: Elevated blood pressure Blood pressure disposition: Elevated BP felt to be situational Impression Primary Impression: Right arm cellulitis Additional Impression: Swelling of right hand Scribe Attestation The scribe's documentation has been prepared under my direction and personally reviewed by me in its entirety. I confirm that the note above accurately reflects all work, treatment, procedures, and medical decision making performed by me. Departure Information Dispostion Home / Self-Care Prescriptions Amoxicillin & Pot Clavulanate (Augmentin 875-125 mg) 1 Tab Tab 875 MG PO BID for 10 Days, #20 TAB Prov: Isai Hooper M.D. 04/28/17 Referrals David Lopez III, CRNP (PCP) Forms HOME CARE DOCUMENTATION FORM, IMPORTANT VISIT INFORMATION, WORK / SCHOOL INSTRUCTIONS Patient Instructions My [facility] Additional Instructions augmentin 2x per day for 10 days try to keep the hand elevated to help the swelling see your doctor this week for a recheck return for fever or worsening symptoms as discussed return if not improving Problem Qualifiers
--- NOTE | 2017-04-28 18:36 | DIAGNOSTIC IMAGING REPORT ---
R HAND MIN 3 VIEWS ROUTINE CLINICAL HISTORY: 76 years-old Female presenting with pain, swelling. TECHNIQUE: Frontal, oblique, and lateral views of the right hand were obtained. COMPARISON: None. FINDINGS: Osteopenia. This limits evaluation for nondisplaced fracture. Significant degenerative change is evident throughout the hand most significantly at the radial scaphoid articulation where there is subchondral cystic change as well as at the first interphalangeal joint and distal interphalangeal joint of the second finger. Diffuse soft tissue swelling along the dorsum and wrist noted. Altered configuration of the head of the third metacarpal may suggest the presence of erosions. Marginal erosion may also be present at the head of the proximal phalanx of the second finger. No soft tissue calcification. IMPRESSION: Findings raise concern for an inflammatory arthritis. Involvement of the radiocarpal articulation and potential erosion at the head of the third metacarpal raises concern for rheumatoid arthritis or another inflammatory arthritis. Electronically signed by: Bean Malcolm M.D. 04/28/2017 6:34 PM Dictated Date/Time: 04/28/2017 6:30 PM
--- NOTE | 2017-04-28 18:38 | DIAGNOSTIC IMAGING REPORT ---
R WRIST W/NAVICULAR MIN 3 VIEWS CLINICAL HISTORY: Right wrist pain and swelling. COMPARISON: None FINDINGS: Osteopenia is noted. Numerous lucencies are noted. There is no acute fracture. Widening of the scapholunate interval is noted. There is moderate arthritis within several articulations, most pronounced within the radiocarpal joint. Soft tissue swelling is noted. IMPRESSION: 1. No acute fracture. 2. Widening of the scapholunate interval. While age indeterminate, this is likely chronic and suggests old scapholunate ligament tear. 3. Lucencies within the right wrist which are likely related to osteoarthritis. Erosions could appear similar although are considered less likely. 4. 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 Electronically signed by: Emigdio Ibrahim M.D. 04/28/2017 6:37 PM Dictated Date/Time: 04/28/2017 6:29 PM
[2017-04-28 18:49] LABS: BASO % 0.3 %; BASO ABS # 0.03 K/uL (0-0.2); COMPLETE YES; EOS % 3.4 %; HEMATOCRIT 35.7 % (37-47); IG% 0.3 %; LYMPH % 23.3 %; LYMPH ABS # 2.15 K/uL (1.2-3.4); MEAN CELL VOLUME 84.6 fL (80-100); MEAN CORPUSCULAR HEMOGLOBIN 27.5 pg (25-34); MEAN CORPUSCULAR HGB CONC 32.5 g/dl (32-36); MEAN PLATELET VOLUME 9.4 fL (7.4-10.4); MONO % 9.7 %; PLATELET COUNT 297 K/uL (130-400); RED BLOOD COUNT 4.22 M/uL (4.2-5.4); WHITE BLOOD COUNT 9.21 K/uL (4.8-10.8)
[2017-04-28 19:10] LABS: BUN/CREATININE RATIO 21.2 (10-20); CALCIUM 9.3 mg/dl (8.5-10.1); CREATININE 1.27 mg/dl (0.60-1.20)
[2017-04-28] MEDS ORDERED: VENLAFAXINE (19:11)
[2017-04-28] MEDS ORDERED: INSPMPNVLG (19:11)
[2017-04-28] MEDS ORDERED: CALCTAB7 PO (19:11)
[2017-04-28] MEDS ORDERED: VENL75CA73 PO (19:11)
[2017-04-28] MEDS ORDERED: ASPI325T39 PO (19:13)
[2017-04-28] MEDS ORDERED: AMOX875T PO (19:20)
[2017-04-28 19:31] VITALS: BP 204/97; PULSE 80; O2SAT 97
[2017-04-28] MEDS ORDERED: AMOXICILLIN/CLAVULANATE TAB 875 MG TAB PO ONE (21:00)
[2017-04-28] MEDS ORDERED: FRS/40 PO (21:44)
== END 2017-04-28 19:33 | disposition home or self-care (01) ==
LOC: C.EDB 17:57
DX: L03.113 Cellulitis of right upper limb (principal); E11.42 Type 2 diabetes mellitus with diabetic polyneuropathy; Z79.4 Long term (current) use of insulin; Z79.82 Long term (current) use of aspirin; Z79.899 Other long term (current) drug therapy; Z88.8 Allergy status to other drugs, medicaments and biological substances

== ENCOUNTER → 2017-08-27 | Outpatient (CLI) | payer OTHER ==
[~2017-08-27] MED LIST changes: +ASPI325T39 PO; -CALCTAB5 PO; +CALCTAB7 PO; +CEPH500C2 PO; -EFFSR75 PO; +FRS/40 PO; +INSPMPNVLG; -NVLGI; -TOLT1CAP3 PO; +VENL75CA73 PO
[2017-08-28 07:46] LABS: HEMOGLOBIN A1C 7.3 % (4.5-5.6)
== END | disposition home or self-care (01) ==
LOC: C.LAB 12:44
PROVIDERS: ATTEND Nurse Practitioner Family
DX: E11.9 Type 2 diabetes mellitus without complications (principal)

== ENCOUNTER → 2017-12-04 | Outpatient (CLI) | payer OTHER ==
[~2017-12-04] MED LIST changes: -AMLO-110 PO; +AMLO5TAB3 PO
[2017-12-05 06:08] LABS: HEMOGLOBIN A1C 7.6 % (4.5-5.6)
== END | disposition home or self-care (01) ==
LOC: C.LAB 12:12
PROVIDERS: ATTEND Nurse Practitioner Family
DX: E11.65 Type 2 diabetes mellitus with hyperglycemia (principal)

== ENCOUNTER 2020-03-09 15:03 | Observation (INO) ==
[2020-03-09 16:40] LABS: Basophils # (auto) 0.05 K/uL (0-0.2); Basophils % (auto) 0.5 %; Eosinophils # (auto) 0.28 K/uL (0-0.5); Hematocrit (blood only) 36.9 % (37-47); Hemoglobin 11.5 g/dL (12.0-16.0); Immature Granulocytes # (auto) 0.02 K/uL (0.00-0.02); Immature Granulocytes % (auto) 0.2 %; Lymphocytes % (auto) 22.5 %; Mean Corpuscular Hemoglobin 27.2 pg (25-34); Mean Corpuscular Hgb Conc 31.2 g/dL (32-36); Mean Corpuscular Volume 87.2 fL (80-100); Mean Platelet Volume 10.3 fL (7.4-10.4); Monocytes # (auto) 1.04 K/uL (0.11-0.59); Monocytes % (auto) 11.1 %; Neutrophils # (auto) 5.84 K/uL (1.4-6.5); Neutrophils % (auto) 62.7 %; Platelet Count 246 K/uL (130-400); RDW Coefficient of Variation 15.3 % (11.5-14.5); RDW Standard Deviation 49.4 fL (36.4-46.3); Red Blood Count 4.23 M/uL (4.2-5.4); White Blood Count 9.33 K/uL (4.8-10.8)
[2020-03-09 16:45] LABS: Prothrombin Time 10.8 Seconds (9.0-12.0)
[2020-03-09 16:47] LABS: Alanine Aminotransferase 31 U/L (12-78); Albumin Level 2.9 gm/dl (3.4-5.0); Aspartate Aminotransferase 29 U/L (15-37); BUN Creatinine Ratio 21.3 (10-20); Blood Urea Nitrogen 56 mg/dl (7-18); Calcium 9.6 mg/dl (8.5-10.1); Carbon Dioxide 28 mmol/L (21-32); Chloride 109 mmol/L (98-107); Creatinine Clr Calc Pharmacy 22.4 ml/min; Est GFR (African American) 19.8; Est GFR (Non-African American) 17.1; Glucose 60 mg/dl (70-99); Lipase 351 U/L (73-393); Magnesium 2.1 mg/dl (1.8-2.4); Potassium 3.8 mmol/L (3.5-5.1); Sodium 142 mmol/L (136-145)
[2020-03-09 16:58] LABS: Albumin Globulin Ratio 0.7 (0.9-2); Alkaline Phosphatase 92 U/L (45-117); Bilirubin,Total 0.3 mg/dl (0.2-1); Globulin 4.3 gm/dl (2.5-4.0); NT Pro B Type Natriuretic Pept 2530 pg/ml (0-1800); Total Protein 7.2 gm/dl (6.4-8.2); Troponin I < 0.015 ng/ml (0-0.045)
[2020-03-09 17:07] LABS: Appearance Urine Cloudy (Clear); Bacteria Urine Automated 3+ (Negative); Bilirubin Urine Negative (Negative); Blood Urine 1+ (Negative); Color Urine Yellow; Epithelial Cell Urine Auto 0-5 /lpf (0-5); Glucose Urine UA Negative (Negative); Ketones Urine Negative (Negative); Leukocyte Esterase Urine Trace (Negative); Nitrite Urine Negative (Negative); Protein Urine 3+ (Negative); RBC Urine Automated 0-4 /hpf (0-4); Specific Gravity Urine 1.014 (1.000-1.030); Urobilinogen Urine Negative (Negative); WBC Urine Automated >30 /hpf (0-5)
--- NOTE | 2020-03-09 17:13 | CT Scan Report ---
CT SCAN OF THE BRAIN WITHOUT IV CONTRAST CLINICAL HISTORY: Change in mental status. COMPARISON STUDY: CT of the brain dated 11/10/2006. TECHNIQUE: Unenhanced axial CT scan of the brain is performed from the vertex to the skull base. A do se lowering technique was utilized adhering to the principles of ALARA. CT DOSE: 773.57 mGy.cm FINDINGS: Brain parenchyma: There are age-related involutional changes noting mild to moderate subcortical and periventricular microangiopathic change. There is no hemorrhage, mass effect, or evidence of acute t erritorial ischemia by CT criteria. 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 Vazquez-white mat ter differentiation is preserved. No extra-axial fluid collection is seen. Ventricles, sulci, cisterns: Prominent secondary to involutional change. Intracranial vasculature: There is atherosclerotic calcification of the cavernous carotid and vertebr al arteries. Calvarium: Unremarkable. Sinuses and mastoids: The visualized paranasal sinuses are clear. The mastoid air cells are well pneu matized. Orbits: The bony orbits are grossly intact. There are bilateral ocular lens implants. IMPRESSION: There is no hemorrhage, mass effect, or evidence of acute territorial ischemia by CT cruz anderson. ACT 112: Negative or not required by law. Electronically signed by: Isai Baldwin M.D. 03/09/2020 5:11 PM
--- NOTE | 2020-03-09 17:26 | XRay Report ---
SINGLE VIEW CHEST CLINICAL HISTORY: Dyspnea. FINDINGS: An AP, portable, upright chest radiograph is compared to study dated 07/21/2019. The cardiom ediastinal silhouette is unremarkable noting atherosclerotic calcification of the thoracic aorta. The re are low lung volumes with bibasilar atelectasis. No airspace consolidation is seen typical for pne umonia and there is no large pleural effusion. No pneumothorax is seen. The skeletal structures are o steopenic. The bony thorax is grossly intact. Arthritic change is noted in the shoulders and thoracic spine. Atherosclerotic calcification is seen in the carotid bulbs. IMPRESSION: Low lung volumes with bibasilar atelectasis. ACT 112: Negative or not required by law. Electronically signed by: Isai Baldwin M.D. 03/09/2020 5:25 PM
--- NOTE | 2020-03-09 17:42 | Emergency Department Note ---
History of Present Illness General Chief complaint: Hypoglycemia Stated complaint: hypoglycemia Time Seen by Provider: 03/09/20 15:54 Source: patient Mode of arrival: EMS Limitations: no limitations History of Present Illness Provider complaint: Recurrent hypoglycemia Onset (ago): day(s) 3 Relieved By: + none Associated symptoms: + denies other symptoms Treatments prior to arrival: none This is a 79-year-old female who presents via EMS from home where she lives with family due to recurrent episodes of symptomatic hypoglycemia. Daughter at bedside states episodes of been happening over the last 3 days. Patient undergoes significant change in personality and mentation, and when checked blood sugars have been in the 40s. These will come up when patient begins to eat or drink however it takes many hours for the patient's mental status to return to baseline. They deny any changes in the patient's medication. They did change her insulin pump as a precaution Friday in case it was malfunctioning. She denies any recent fevers or chills, cough or cold symptoms. Daughter states she noticed that the patient has dyspnea with exertion and intermittent lower extremity edema and is concerned for CHF. Patient does follow with endocrinology, Dr. Finnegan. No other known sick contacts. Patient lives with son and [id number]. Daughter bedside states that she has had prior episodes related to not eating which seem to be secondary to depression as they have experienced several losses in the family and are coming up on the anniversaries of other deaths. Patient denies any change in bowel or bladder function, denies fevers or chills, denies chest pain or shortness of breath. Pt seen during a time of high acuity and national emergency pandemic while wearing PPE. Home Medications Home Medications Medication Instructions Recorded Confirmed Type ascorbic acid (vitamin C) 500 mg 1,000 mg PO BID tab 12/10/18 03/09/20 History tablet aspirin 325 mg tablet 650 mg PO DAILY PRN tab 12/10/18 03/09/20 History cholecalciferol (vitamin D3) 25 1,000 units PO BID cap 12/10/18 03/09/20 History mcg (1,000 unit) capsule multivit with min-folic 1 tab PO QAM 12/10/18 03/09/20 History acid-lutein 400 mcg-250 mcg chewable tablet polyethylene glycol 3350 17 17 gm PO DAILY PRN gm 12/10/18 03/09/20 History gram/dose oral powder venlafaxine 150 mg 150 mg PO QAM cap 12/10/18 03/09/20 History capsule,extended release 24 hr venlafaxine 37.5 mg tablet 37.5 mg PO QAM tab 12/10/18 03/09/20 History vitamins A,C,L-lkwz-uxbzqj 14,320 1 cap PO BID cap 12/10/18 03/09/20 History unit-226 mg-200 unit capsule enalapril maleate 20 mg tablet 20 mg PO BID #180 tab 09/08/19 03/09/20 Rx metoprolol tartrate 50 mg tablet 50 mg PO BID #60 tab 09/08/19 03/09/20 Rx amlodipine 5 mg PO BID 03/09/20 03/09/20 History atorvastatin 40 mg PO QAM 03/09/20 03/09/20 History calcium carbonate-vitamin D3 2 tab PO QAM 03/09/20 03/09/20 History [Calcium 600 with Vitamin D3] insulin aspart U-100 [Novolog See Rx Instructions .ROUTE .COMPLEX 03/09/20 03/09/20 History U-100 Insulin aspart] isosorbide mononitrate 30 mg PO QAM 03/09/20 03/09/20 History torsemide 20 mg PO QAM 03/09/20 03/09/20 History Allergies Allergy/AdvReac Type Severity Reaction Status Date / Time No Known Allergies Allergy Verified 03/09/20 22:31 Past Med/Surg History Medical History (Updated 03/09/20 @ 20:32 by Payton France DO) Anemia Aortic valve sclerosis Arteriosclerosis of carotid artery 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 Chronic gastroesophageal reflux disease Chronic kidney disease Chronic kidney disease, stage III (moderate) Depression Diabetes Diabetic peripheral neuropathy associated with type 2 diabetes mellitus Dyslipidemia Generalized osteoarthritis of multiple sites Graves disease H/O malignant neoplasm of uterine body Hypertension Hypoglycemia associated with type 2 diabetes mellitus Left ventricular diastolic dysfunction Macular degeneration Multiple thyroid nodules Obesity Osteopenia Secondary hyperparathyroidism Subclinical hyperthyroidism Superficial burn of left index finger Surgical History H/O basal cell carcinoma excision H/O shoulder surgery S/P complete hysterectomy Family History Father Lung cancer Diabetes Mother , in a home fire Hypertension Denies family history of Ovarian cancer Prostate cancer Myocardial infarction Breast cancer Colorectal cancer Social History Smoking Status: Former smoker Hx Alcohol Use: Yes Alcohol type: wine Hx Substance Use: No Preferred Language: [place] Communication Ability: Effective Visual Impairment: No Limitations Hearing Ability: Normal Beliefs That Will Affect Care: None marital status: Current Living Situation: Family current occupational status: retired Feels Safe at Home: Yes Safety Concerns Comment: unsteady at times Childhood Exposure to Second-Hand Smoke: Yes Dental Care, Regularly: No Physical Activity Frequency: Does not Exercise Seatbelt Use: always Sunscreen Use: No Assistive Devices: None Review of Systems See HPI for pertinent positives & negatives. and A total of 10 systems reviewed and were otherwise negative Physical Exam Vital Signs Vital Signs - 24 hr 03/09/20 22:10 Pulse Rate [Right Finger] 84 Pulse Rhythm [Right Finger] Regular Pulse Strength [Right Finger] Normal Respiratory Rate 18 Respiratory Effort / Characteristics Non-Labored Respiratory Depth Normal Respiratory Pattern Regular Blood Pressure [Right Arm] 188/85 H Blood Pressure Mean [Right Arm] 119 Blood Pressure Position [Right Arm] Sitting Pulse Oximetry 95 Oxygen Delivery Method Room Air GENERAL: alert, well appearing, well nourished, no distress, non-toxic, obese EYE EXAM: normal conjunctiva, PERRL and EOM's grossly intact OROPHARYNX: no exudate, no erythema, lips, buccal mucosa, and tongue normal and mucous membranes are moist, edentulous NECK: supple, no nuchal rigidity, no adenopathy, non-tender LUNGS: Clear to auscultation. Normal chest wall mechanics, no w/r/r HEART: no murmurs, S1 normal and S2 normal ABDOMEN: abdomen soft, non-tender, normo-active bowel sounds, no masses, no rebound or guarding. Insulin pump noted on right lateral abdomen. BACK: Back is symmetrical on inspection and there is no deformity, no midline tenderness, no CVA tenderness. SKIN: no rashes and no bruising UPPER EXTREMITIES: upper extremities are grossly normal. FROM, nml pulses b/l. LOWER EXTREMITIES: No pitting edema. FROM, nml pulses b/l. NEURO EXAM: Normal sensorium, cranial nerves II-XII grossly intact, normal speech, no gross weakness of arms, no gross weakness of legs. Gross sensation intact. Course Course 1744: Dated patient at bedside. Will order antibiotics. Denies recent trouble with UTIs. 1834: Extensive time spent by registered nurse hh case manager Becca with daughter discussing patient's care needs. I was updated on this discussion, and additional resources will be given and arrangements made if the patient is discharged. 2010: Updated patient and daughter again at bedside. Blood pressure still elevated after hydralazine. 2021: Discussed with Dr. Demarco. Recommends addition of IV metoprolol 5 mg as well as removal of the patient's insulin pump in the short-term. Administered Medications Atorvastatin Calcium (Atorvastatin 40 Mg Tab) 40 mg PO QAM [facility] Stop: 04/09/20 08:59 Last Admin: 03/10/20 08:10 Dose: 40 mg Documented by: [id number] Diltiazem HCl (Diltiazem Hcl 5 Mg/Ml 5 Ml Vial) 10 mg IV Q4H PRN PRN Reason: Hypertension Stop: 04/08/20 23:31 Last Admin: 03/10/20 00:46 Dose: 10 mg Documented by: [id number] Cosigned by: [id number] Enoxaparin Sodium (Enoxaparin Inj 40 Mg/0.4 Ml Syr) 40 mg SQ Q24H [facility] Stop: 04/09/20 01:29 Last Admin: 03/10/20 01:55 Dose: 40 mg Documented by: [id number] Ferrous Sulfate (Ferrous Sulfate 325 Mg Tab) 325 mg PO Q48H [facility] Stop: 04/09/20 08:59 Last Admin: 03/10/20 08:09 Dose: 325 mg Documented by: [id number] Ceftriaxone Sodium 2,000 mg/ (Dextrose) 70 mls @ 140 mls/hr IV Q24H [facility] Stop: 03/18/20 18:29 Last Infusion: 03/10/20 20:43 Dose: 0 mls/hr Documented by: [id number] Admin: 03/10/20 19:12 Dose: 140 mls/hr Documented by: [id number] Sodium Chloride (Nss 1000ml) 1,000 mls @ 80 mls/hr IV .[id number] [facility] Stop: 03/11/20 02:59 Last Admin: 03/10/20 14:53 Dose: 80 mls/hr Documented by: [id number] Insulin Aspart (Insulin Aspart 100 Units/Ml 3 Ml Pen) 0 units SC ACHS CAS[facility] Stop: 04/09/20 07:29 Last Admin: 03/10/20 19:22 Dose: 8 units Documented by: [id number] Cosigned by: [id number] Admin: 03/10/20 15:51 Dose: 4 units Documented by: [id number] Cosigned by: [id number] Admin: 03/10/20 12:15 Dose: 6 units Documented by: [id number] Cosigned by: [id number] Admin: 03/10/20 08:22 Dose: 1 units Documented by: [id number] Cosigned by: [id number] Insulin Glargine (Insulin Glargine Solostar 100 Units/Ml 3 Ml Pen) 0 units SC BID [facility]; Protocol Stop: 04/09/20 20:59 Last Admin: 03/10/20 19:24 Dose: 10 units Documented by: [id number] Cosigned by: [id number] Isosorbide Mononitrate (Isosorbide Becker Extended Rel 30 Mg Tabcr) [facility] [place] Stop: 04/09/20 08:59 Last Admin: 03/10/20 08:09 Dose: 30 mg Documented by: [id number] Ondansetron HCl (Ondansetron Inj 2 Mg/Ml 2 Ml Vial) 4 mg IV Q6H PRN PRN Reason: Nausea Stop: 04/09/20 02:02 Last Admin: 03/10/20 08:16 Dose: 4 mg Documented by: [id number] Venlafaxine HCl (Venlafaxine Hcl Xr 150 Mg Capxr) [facility] [place] Stop: 04/09/20 08:59 Last Admin: 03/10/20 08:09 Dose: 150 mg Documented by: [id number] Venlafaxine HCl (Venlafaxine Hcl Xr 37.5 Mg Capxr) 37.5 mg [facility] [place] Stop: 04/09/20 08:59 Last Admin: 03/10/20 08:11 Dose: 37.5 mg Documented by: [id number] Discontinued Medications Hydralazine HCl (Hydralazine Hcl 20 Mg/Ml Vial) 10 mg IV NOW STA Stop: 03/09/20 18:27 Last Admin: 03/09/20 18:37 Dose: 10 mg Documented by: [id number] Hydralazine HCl (Hydralazine Hcl 20 Mg/Ml Vial) 10 mg IV NOW STA Stop: 03/09/20 20:16 Last Admin: 03/09/20 20:27 Dose: 10 mg Documented by: [id number] Ceftriaxone Sodium (Rocephin) 2,000 mg in 70 mls @ 140 mls/hr IV NOW STA Stop: 03/09/20 18:54 Last Infusion: 03/09/20 19:12 Dose: 0 mls/hr Documented by: [id number] Admin: 03/09/20 18:40 Dose: 140 mls/hr Documented by: [id number] Ceftriaxone Sodium (Rocephin) 2,000 mg in 70 mls @ 140 mls/hr IV NOW STA Stop: 03/10/20 02:21 Last Admin: 03/10/20 02:48 Dose: Not Given Documented by: [id number] Sodium Chloride (Nss 1000ml) 1,000 mls @ 100 mls/hr IV .Q10H ONE Stop: 03/10/20 12:02 Last Infusion: 03/10/20 12:22 Dose: 0 mls/hr Documented by: [id number] Admin: 03/10/20 02:45 Dose: 100 mls/hr Documented by: [id number] Insulin Glargine (Insulin Glargine Solostar 100 Units/Ml 3 Ml Pen) 20 units SC ONE ONE Stop: 03/10/20 11:46 Last Admin: 03/10/20 12:16 Dose: 20 units Documented by: [id number] Cosigned by: [id number] Metoprolol Tartrate (Metoprolol Tartrate 1 Mg/Ml Vial) 5 mg IV NOW STA Stop: 03/09/20 20:28 Last Admin: 03/09/20 20:46 Dose: 5 mg Documented by: [id number] Ondansetron HCl (Ondansetron 2 Mg Od Tab) 2 mg PO NOW STA Stop: 03/09/20 21:12 Last Admin: 03/09/20 23:04 Dose: Not Given Documented by: [id number] Ondansetron HCl (Ondansetron 4 Mg Od Tab) 4 mg PO Q4H PRN PRN Reason: Nausea Stop: 04/08/20 21:19 Last Admin: 03/10/20 00:50 Dose: 4 mg Documented by: [id number] Medical Decision Making Differential Diagnosis Differential Diagnosis includes but is not limited to dehydration, stroke, anemia, hypoglycemia, hyponatremia, hypernatremia, urinary tract infection, pneumonia, bronchitis, sepsis, gastroenteritis, additional abdominal pathology, metabolic abnormalities and infections. Medical Records Attestation: I reviewed the patient's medical records. Home Medications Current Medication List: was personally reviewed by me Laboratory Data Attestation: I reviewed the patient's lab results. Result diagrams: 03/10/20 05:19 03/10/20 05:19 Lab Results 03/09/20 03/09/20 03/09/20 Range/Units 15:00 15:00 15:00 WBC 9.33 (4.8-10.8) K/uL RBC 4.23 (4.2-5.4) M/uL Hgb 11.5 L (12.0-16.0) g/dL Hct 36.9 L (37-47) % MCV 87.2 (80-100) fL MCH 27.2 (25-34) pg MCHC 31.2 L (32-36) g/dL RDW Std Deviation 49.4 H (36.4-46.3) fL RDW Coeff of Chris 15.3 H (11.5-14.5) % Plt Count 246 (130-400) K/uL MPV 10.3 (7.4-10.4) fL Immature Gran % (Auto) 0.2 % Neut % (Auto) 62.7 % Lymph % (Auto) 22.5 % Becker % (Auto) 11.1 % Eos % (Auto) 3.0 % Baso % (Auto) 0.5 % Neut # (Auto) 5.84 (1.4-6.5) K/uL Lymph # (Auto) 2.10 (1.2-3.4) K/uL Becker # (Auto) 1.04 H (0.11-0.59) K/uL Eos # (Auto) 0.28 (0-0.5) K/uL Baso # (Auto) 0.05 (0-0.2) K/uL Immature Gran # (Auto) 0.02 (0.00-0.02) K/uL PT 10.8 (9.0-12.0) Seconds INR 1.0 (0.9-1.1) Sodium 142 (136-145) mmol/L Potassium 3.8 (3.5-5.1) mmol/L Chloride 109 H (98-107) mmol/L Carbon Dioxide 28 (21-32) mmol/L Anion Gap 5.0 (3-11) BUN 56 H (7-18) mg/dl Creatinine 2.60 H (0.6-1.2) mg/dl Est Cr Clr Drug Dosing 22.4 ml/min Est GFR ( Amer) 19.8 Est GFR (Non-Af Amer) 17.1 BUN/Creatinine Ratio 21.3 H (10-20) Glucose 60 L (70-99) mg/dl POC Glucose (70-99) mg/dl Calcium 9.6 (8.5-10.1) mg/dl Magnesium 2.1 (1.8-2.4) mg/dl Total Bilirubin 0.3 (0.2-1) mg/dl AST 29 (15-37) U/L ALT 31 (12-78) U/L Alkaline Phosphatase 92 (45-117) U/L Troponin I < 0.015 (0-0.045) ng/ml NT-Pro-B Natriuret Pep 2530 H (0-1800) pg/ml Total Protein 7.2 (6.4-8.2) gm/dl Albumin 2.9 L (3.4-5.0) gm/dl Globulin 4.3 H (2.5-4.0) gm/dl Albumin/Globulin Ratio 0.7 L (0.9-2) Lipase 351 (73-393) U/L TSH 1.200 (0.300-4.500) uIu/ml Urine Color Urine Appearance (Clear) Urine pH (4.5-7.5) Ur Specific Lanse (1.000-1.030) Urine Protein (Negative) Urine Glucose (UA) (Negative) Urine Ketones (Negative) Urine Blood (Negative) Urine Nitrite (Negative) Urine Bilirubin (Negative) Urine Urobilinogen (Negative) Ur Leukocyte Esterase (Negative) Urine WBC (Auto) (0-5) /hpf Urine RBC (Auto) (0-4) /hpf U Hyaline Cast (Auto) (0-5) /lpf U Epithel Cells (Auto) (0-5) /lpf Urine Bacteria (Auto) (Negative) 03/09/20 03/09/20 03/09/20 Range/Units 15:23 16:53 16:54 WBC (4.8-10.8) K/uL RBC (4.2-5.4) M/uL Hgb (12.0-16.0) g/dL Hct (37-47) % MCV (80-100) fL MCH (25-34) pg MCHC (32-36) g/dL RDW Std Deviation (36.4-46.3) fL RDW Coeff of Chris (11.5-14.5) % Plt Count (130-400) K/uL MPV (7.4-10.4) fL Immature Gran % (Auto) % Neut % (Auto) % Lymph % (Auto) % Becker % (Auto) % Eos % (Auto) % Baso % (Auto) % Neut # (Auto) (1.4-6.5) K/uL Lymph # (Auto) (1.2-3.4) K/uL Becker # (Auto) (0.11-0.59) K/uL Eos # (Auto) (0-0.5) K/uL Baso # (Auto) (0-0.2) K/uL Immature Gran # (Auto) (0.00-0.02) K/uL PT (9.0-12.0) Seconds INR (0.9-1.1) Sodium (136-145) mmol/L Potassium (3.5-5.1) mmol/L Chloride (98-107) mmol/L Carbon Dioxide (21-32) mmol/L Anion Gap (3-11) BUN (7-18) mg/dl Creatinine (0.6-1.2) mg/dl Est Cr Clr Drug Dosing ml/min Est GFR ( Amer) Est GFR (Non-Af Amer) BUN/Creatinine Ratio (10-20) Glucose (70-99) mg/dl POC Glucose 139 H 195 H (70-99) mg/dl Calcium (8.5-10.1) mg/dl Magnesium (1.8-2.4) mg/dl Total Bilirubin (0.2-1) mg/dl AST (15-37) U/L ALT (12-78) U/L Alkaline Phosphatase (45-117) U/L Troponin I (0-0.045) ng/ml NT-Pro-B Natriuret Pep (0-1800) pg/ml Total Protein (6.4-8.2) gm/dl Albumin (3.4-5.0) gm/dl Globulin (2.5-4.0) gm/dl Albumin/Globulin Ratio (0.9-2) Lipase (73-393) U/L TSH (0.300-4.500) uIu/ml Urine Color Yellow Urine Appearance Cloudy A (Clear) Urine pH 6.0 (4.5-7.5) Ur Specific Lanse 1.014 (1.000-1.030) Urine Protein 3+ H (Negative) Urine Glucose (UA) Negative (Negative) Urine Ketones Negative (Negative) Urine Blood 1+ H (Negative) Urine Nitrite Negative (Negative) Urine Bilirubin Negative (Negative) Urine Urobilinogen Negative (Negative) Ur Leukocyte Esterase Trace H (Negative) Urine WBC (Auto) >30 H (0-5) /hpf Urine RBC (Auto) 0-4 (0-4) /hpf U Hyaline Cast (Auto) 1-5 (0-5) /lpf U Epithel Cells (Auto) 0-5 (0-5) /lpf Urine Bacteria (Auto) 3+ H (Negative) 03/09/20 03/09/20 03/09/20 Range/Units 19:22 22:08 23:21 WBC (4.8-10.8) K/uL RBC (4.2-5.4) M/uL Hgb (12.0-16.0) g/dL Hct (37-47) % MCV (80-100) fL MCH (25-34) pg MCHC (32-36) g/dL RDW Std Deviation (36.4-46.3) fL RDW Coeff of Chris (11.5-14.5) % Plt Count (130-400) K/uL MPV (7.4-10.4) fL Immature Gran % (Auto) % Neut % (Auto) % Lymph % (Auto) % Becker % (Auto) % Eos % (Auto) % Baso % (Auto) % Neut # (Auto) (1.4-6.5) K/uL Lymph # (Auto) (1.2-3.4) K/uL Becker # (Auto) (0.11-0.59) K/uL Eos # (Auto) (0-0.5) K/uL Baso # (Auto) (0-0.2) K/uL Immature Gran # (Auto) (0.00-0.02) K/uL PT (9.0-12.0) Seconds INR (0.9-1.1) Sodium (136-145) mmol/L Potassium (3.5-5.1) mmol/L Chloride (98-107) mmol/L Carbon Dioxide (21-32) mmol/L Anion Gap (3-11) BUN (7-18) mg/dl Creatinine (0.6-1.2) mg/dl Est Cr Clr Drug Dosing ml/min Est GFR ( Amer) Est GFR (Non-Af Amer) BUN/Creatinine Ratio (10-20) Glucose (70-99) mg/dl POC Glucose 101 H 107 H 118 H (70-99) mg/dl Calcium (8.5-10.1) mg/dl Magnesium (1.8-2.4) mg/dl Total Bilirubin (0.2-1) mg/dl AST (15-37) U/L ALT (12-78) U/L Alkaline Phosphatase (45-117) U/L Troponin I (0-0.045) ng/ml NT-Pro-B Natriuret Pep (0-1800) pg/ml Total Protein (6.4-8.2) gm/dl Albumin (3.4-5.0) gm/dl Globulin (2.5-4.0) gm/dl Albumin/Globulin Ratio (0.9-2) Lipase (73-393) U/L TSH (0.300-4.500) uIu/ml Urine Color Urine Appearance (Clear) Urine pH (4.5-7.5) Ur Specific Lanse (1.000-1.030) Urine Protein (Negative) Urine Glucose (UA) (Negative) Urine Ketones (Negative) Urine Blood (Negative) Urine Nitrite (Negative) Urine Bilirubin (Negative) Urine Urobilinogen (Negative) Ur Leukocyte Esterase (Negative) Urine WBC (Auto) (0-5) /hpf Urine RBC (Auto) (0-4) /hpf U Hyaline Cast (Auto) (0-5) /lpf U Epithel Cells (Auto) (0-5) /lpf Urine Bacteria (Auto) (Negative) Imaging Data Radiologist's Impression: CT SCAN OF THE BRAIN WITHOUT IV CONTRAST CLINICAL HISTORY: Change in mental status. COMPARISON STUDY: CT of the brain dated 11/10/2006. TECHNIQUE: Unenhanced axial CT scan of the brain is performed from the vertex to the skull base. A dose lowering technique was utilized [facility] DOSE: 773.57 mGy.cm FINDINGS: Brain parenchyma: There are age-related involutional changes noting mild to moderate subcortical and periventricular microangiopathic change. There is no hemorrhage, mass effect, or evidence of acute territorial ischemia by CT criteria. 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 Vazquez-white matter differentiation is preserved. No extra-axial fluid collection is seen. Ventricles, sulci, cisterns: Prominent secondary to involutional change. Intracranial vasculature: There is atherosclerotic calcification of the cavernous carotid and vertebral arteries. Calvarium: Unremarkable. Sinuses and mastoids: The visualized paranasal sinuses are clear. The mastoid air cells are well pneumatized. Orbits: The bony orbits are grossly intact. There are bilateral ocular lens implants. IMPRESSION: There is no hemorrhage, mass effect, or evidence of acute territorial ischemia by CT criteria. ACT 112: Negative or not required by law. Electronically signed by: Isai Baldwin M.D. 03/09/2020 5:11 PM SINGLE VIEW CHEST CLINICAL HISTORY: Dyspnea. FINDINGS: An AP, portable, upright chest radiograph is compared to study dated 07/21/2019. The cardiomediastinal silhouette is unremarkable noting atherosclerotic calcification of the thoracic aorta. There are low lung volumes with bibasilar atelectasis. No airspace consolidation is seen typical for pneumonia and there is no large pleural effusion. No pneumothorax is seen. The skeletal structures are osteopenic. The bony thorax is grossly intact. Arthritic change is noted in the shoulders and thoracic spine. Atherosclerotic calcification is seen in the carotid bulbs. IMPRESSION: Low lung volumes with bibasilar atelectasis. ACT 112: Negative or not required by law. Electronically signed by: Isai Baldwin M.D. 03/09/2020 5:25 PM Impression 6. A few subcentimeter indeterminate pulmonary nodules within the lung bases with the largest measuring 4 mm. Please refer to the chart below for recommended follow-up. Please refer to below summary of Fleischner criteria recommendations for follow- up of incidental CT nodules (Pippa Luna, Guidelines for management of small pulmonary nodules detected on CT scans: A statement from the Fleischner Society, Radiology 237: [phone].) SOLID NODULES Solitary nodule size: <6 mm * Low risk patients: no follow-up needed * high risk patients: optional CT at 12 months Solitary nodule size: 6-8 mm * Low risk patients: follow-up at 6-12 months, then consider further follow-up at 18-24 months * high risk patients: initial follow-up CT at 6-12 months and then at 18-24 months if no change Solitary nodule size: >8 mm * either low or high risk patients - consider follow-up CT at 3 months, and/or CT-PET, and/or biopsy Multiple nodules size: <6 mm * Low risk patients: no routine follow-up * high risk patients: optional CT at 12 months Multiple nodules size: 6-8 mm * Low risk patients: follow-up at 3-6 months, then consider further follow-up at 18-24 months * high risk patients: follow-up at 3-6 months, then at 18-24 months if no change Multiple nodules size: >8 mm * Low risk patients: follow-up at 3-6 months, then consider further follow-up at 18-24 months * high risk patients: follow-up at 3-6 months, then at 18-24 months if no change Note: newly detected indeterminate nodule in persons 35 years of age or older. * Low risk patients: minimal or absent history of smoking and/or other known risk factors * high risk patients: history of smoking or of other known risk factors (e.g. first degree relative with lung cancer, or exposure to asbestos, radon, uranium) * if a nodule up to 8 mm is partly solid or is ground glass further follow-up is required after 24 months to exclude possible slow growing adenocarcinoma (YUE) SUBSOLID NODULES Solitary pure ground-glass nodule * nodule size <6 mm - no CT follow-up required * nodule size >=6 mm - follow-up CT at 6-12 months, then every 2 years until 5 years Solitary part-solid nodule * nodule size <6 mm - no CT follow-up required * nodule size >=6 mm - follow-up CT at 3-6 months. If unchanged, and solid component remains <6 mm, then annual follow-up for 5 years Multiple subsolid nodules * nodule size <6 mm - follow-up CT at 3-6 months, consider further follow-up at 2 and 4 years if stable * nodule size >=6 mm - follow-up CT at 3-6 months, subsequent management based on the most suspicious nodule(s) Electronically signed by: Carlito Eugene M.D. 03/10/2020 7:20 AM ADDENDUM END ABDOMEN AND PELVIS CT WITHOUT CONTRAST CT DOSE: 1262.88 mGy.cm HISTORY: Urinary tract infection. Chronic kidney disease. Altered mental status. TECHNIQUE: Multiaxial CT images of the abdomen and pelvis were performed without contrast. A dose lowering technique was utilized adhering to the principles of ALARA. COMPARISON STUDY: None. FINDINGS: A few scattered subcentimeter bibasilar pulmonary nodules. Dominant nodule within the base of the left lower lobe on image 54 measures 4 mm. Moderate right and small left pleural effusions. Associated compressive atelectasis within the bilateral lower lobes posteriorly. Punctate densities within the atelectatic right lower lobe could be due to prior aspiration of barium. No pneumoperitoneum. No pneumatosis. No suspicious lytic or blastic osseous lesions. Scattered punctate calcified granuloma seen within the liver and spleen. The unenhanced adrenal glands and pancreas are within normal limits. Bilateral perinephric edema. This is likely chronic. Renal vascular calcifications are noted. No renal or ureteral calculi. No hydronephrosis. No bladder wall thickening. The uterus is surgically absent. Moderate calcified plaque within the normal caliber abdominal aorta. No retroperitoneal lymphadenopathy. The gallbladder is mildly distended. There are multiple small gallstones. Tiny hiatus hernia. Suboptimal evaluation for bowel pathology due to the lack of intravenous and oral contrast. However, there is no definite bowel wall thickening or obstruction. The appendix is not identified and reportedly surgically absent. Colonic diverticulosis. No evidence for acute diverticulitis. There is a 7 mm slightly hyperdense exophytic lesion within the lower pole the right kidney on image 227. This is incompletely characterized on this noncontrast study but could represent a small hyperdense cyst. IMPRESSION: 1. Moderate right and small left pleural effusions. 2. Bilateral perinephric edema, right greater than left. This is nonspecific but likely chronic. Recommend correlation with urinalysis to exclude the possibility of an underlying infection. 3. Cholelithiasis. The gallbladder is mildly distended. No gallbladder wall thickening. 4. No bowel wall thickening or obstruction. 5. Colonic diverticulosis. No evidence for acute diverticulitis. ACT 112: Negative or not required by law. Electronically signed by: Carlito Eugene M.D. 03/10/2020 7:17 AM Blood Pressure Blood Pressure Findings: Elevated blood pressure Blood Pressure Disposition: further management by hospitalist MDM Narrative This is an elderly female with recent recurrent episodes of hypoglycemia. Patient with a complicated past medical history, and admits to poor p.o. intake recently. Patient's family had been trying to encourage her to eat and drink more regularly and also tried replacing her insulin pump in case this was due to a device failure. Labs are drawn and sent on the patient, and she was borderline hypoglycemic here and was encouraged to eat and drink. Patient sent for a CT of the head to rule out other cause of her transient altered mental status, as well as sent for a chest x-ray, these were unremarkable. Patient found to be persistently hypertensive. Ultimately patient received 2 doses of IV hydralazine with no improvement. Patient also found to have slightly worse renal dysfunction compared to prior levels. Patient also found to have a urinary tract infection which may be contributing to her poor appetite recently which led to the hypoglycemia. Patient started on IV antibiotics, patient had no abdominal pain or back pain on multiple rechecks to suggest other obstructive pathology, however given advanced age and comorbidities, patient sent for CT of the abdomen and pelvis in addition. No ureteral stone was noted. Case was discussed with hospitalist for additional management of her high blood pressure and hypoglycemia as well as monitoring for improvement of her UTI and systemic symptoms. All results were discussed with the patient and family at bedside, they verbalized understanding and were in agreement with plan. No evidence of bacteremia/sepsis. No evidence of ectopy or dysrhythmia while on telemetry. An order was placed for continuous cardiac monitoring. The monitor shows a rate of _86_ with normal sinus__ rhythm. Impression & Plan Hypoglycemia, Acute UTI (urinary tract infection), CKD (chronic kidney disease), Hypertension, uncontrolled Discharge Plan Visit Data Chief Complaint: Hypoglycemia Stated Complaint: hypoglycemia ED Provider: Payton France Discharge Problem: Hypoglycemia, Acute UTI (urinary tract infection), CKD (chronic kidney disease), Hypertension, uncontrolled Patient Disposition: Admitted As Inpatient Discharge Instructions Interventions: ED Discharge Assessment Last Done: 03/10/20 01:35 Discharge Problem: CKD (chronic kidney disease) Qualifiers: Chronic kidney disease stage: unspecified stage Qualified Code(s): N18.9 - Chronic kidney disease, unspecified
[2020-03-09] MEDS ORDERED: cefTRIAXone SODIUM 2,000 MG/70 ML BAG IV STA (18:25)
[2020-03-09] MEDS ORDERED: hydrALAZINE HCL 20 MG/ML VIAL IV STA ×2 (18:26→20:15)
[2020-03-09] MEDS ORDERED: METOPROLOL TARTRATE 1 MG/ML VIAL IV STA (20:27)
[2020-03-09] MEDS ORDERED: ONDANSETRON 2 MG OD TAB PO STA (21:11)
[2020-03-09] MEDS ORDERED: ONDANSETRON 4 MG OD TAB PO PRN (21:20)
--- NOTE | 2020-03-09 21:38 | History & Physical Report ---
Date of Service March 09, 2020 Assessment & Plan (1) Hypoglycemia: Sonam Bolivar is a 79yo female with a history of treatment-resistant HTN, IDDM (A1c 6.1), CKD stage III, HFpEF, urinary incontinence, and UTI who presented to the ED with severe hypoglycemia, uncontrolled HTN, acute kidney injury, UA suspicious for UTI, and left calf tenderness. Patient is clinically stable though her BP remains significantly elevated despite IV antihypertensive administration. Differential includes sepsis secondary to UTI, inappropriate insulin administration, antihypertensive withdrawal syndrome. Severe hypoglycemia -BSG range 101-195 since arrival to the ED -holding home insulin regimen -insulin pump removed -diabetic, heart healthy diet -BSG measurement qac, qhs -ISS until insulin requirement can be clarified Uncontrolled hypertension: current symptoms limited to mild headache -troponin neg, admission EKG unremarkable -holding home antihypertensives, diuretics (metoprolol tartrate 50mg PO bid, amlodipine 5mg PO bid, torsemide 20mg PO qam, enalapril 20mg PO bid) -IV antihypertensives with goal of SBP < 160 -metoprolol 5mg IV q4h prn SBP>160 if HR>70 -cardizem 10mg IV q4h prn SBP>160 if HR>70 if needed in addition to metoprolol IV above -hydralazine 10mg IV q4h prn SBP>160 if HR<70 -admit to med/surg telemetry -continue atorvastatin 40mg PO qAM -awaiting CT abdomen/pelvis -close clinical monitoring Bacteriuria/UTI: unclear if asymptomatic bacteriuria superimposed on other ongoing acute pathology, or complicated UTI contributing to labile sugars and AMS -leukocytosis absent -ceftriaxone IV -await urine culture results -CBC in AM -monitor clinically Left calf tenderness -no known history of DVT -moderate risk for DVT per Wells' criteria -LE ultrasound ordered -lovenox 40mg sq q24h Acute kidney injury, CKD stage III: differential for DONNA includes hypovolemia pre-admission, hypertensive end-organ damage, sepsis -Cr on admission 2.6; baseline unclear -holding home diuretics (torsemide, enalapril) -awaiting CT abdomen/pelvis results -LR @ 100mL/hr -BMP in AM Anemia -Hgb 11.5 on admission, near baseline of ~12.0 -ferrous sulfate 325mg PO q other day HFpEF -no overt fluid overload on CXR -currently clinically euvolemic -aware of elevated BNP; likely an acute phase reactant than consequence of fluid overload -continue home dose imdur 30mg PO qam -close clinical monitoring Depression -c/w home dose venlafaxine FENGI: LR @ 100mL/hr; heart healthy, carb consistent diet DVTp: lovenox 40mg sq Code status: conditional (see HPI) Dispo: med/surg telemetry (2) Uncontrolled type 2 diabetes mellitus with insulin therapy: (3) Hypertension, uncontrolled: (4) Acute UTI (urinary tract infection): (5) Urge and stress incontinence: (6) Anemia: (7) Chronic kidney disease, stage III (moderate): History of Present Illness Primary Care Provider: David Lopez III, ELLIOTT Sonam Bolivar is a 79yo female with a history of treatment-resistant HTN, IDDM (A1c 6.1), CKD stage III, HFpEF, urinary incontinence, and UTI who presented to the ED via ambulance for recurrent episodes of symptomatic hypoglycemia. This afternoon she was found at home in bed, awake but unresponsive and not making eye contact; her daughter took her blood sugar which was 44. Per daughter, patient has had similar episodes of nonresponsiveness and low BSG three times total in the last four days (03/06, 03/07, and today). On 03/06 and 03/07 patient was given juice and food, and returned to baseline after a few hours. Today, her daughter called an ambulance because "this kind of thing happening three times is too much". Patient does not remember today's episode. Patient reports feeling fatigued over the past week and sleeping earlier than normal. Daughter notes that patient has had some shortness of breath on exertion recently as well as lower extremity edema. Patient denies fever, chest pain, abdominal pain, urinary frequency, urinary urgency, pain with urination, vomiting, diarrhea, change in appetite, sore throat, palpitations, cough, wheezing, bloody stools, change in hearing or vision, numbness, tingling, weakness, increased hunger or thirst, today as well as over the past week. She reports a mild headache and mild nausea which she says started within the past hour. She has had no illnesses recently and no sick contacts. Patient's nutrition aides teacher is Dr. óLpez. Patient uses an insulin pump as well as supplementary novolog if her sugars are high; yesterday evening she took 44u novolog in response to a BSG of 455. Her family changed her insulin pump two days ago because they believed it was malfunctioning. Patient has had similar hypoglycemic events prior to this week, but not in the past year. Patient's daughter reports that patient has a history of reduced PO intake due to depression, and that the family has experienced a number of losses recently. Patient denies feeling depressed or hopeless at the moment. She notes that she forgot to take her antihypertensives today, and also forgot to take them two days ago. Daughter reports patient has a history of uncontrolled HTN as well as going to the ED in response to high blood pressure readings taken with her home blood pressure cuff; but denies that patient was ever admitted for blood pressure control. Daughter reports patient no longer measures her BP at home. Code status was discussed with the patient after patient's daughter left for home. She is unsure if she has an advanced directive. Patient reports she would like to be resuscitated if her heart were to stop, including chest compressions; however she reports she would not want a breathing tube if her breathing were to stop. Allergies Allergy/AdvReac Type Severity Reaction Status Date / Time No Known Allergies Allergy Verified 03/09/20 22:31 Home Medications Home Medications Medication Instructions Recorded Confirmed Type ascorbic acid (vitamin C) 500 mg 1,000 mg PO BID tab 12/10/18 03/09/20 History tablet aspirin 325 mg tablet 650 mg PO DAILY PRN tab 12/10/18 03/09/20 History cholecalciferol (vitamin D3) 25 1,000 units PO BID cap 12/10/18 03/09/20 History mcg (1,000 unit) capsule multivit with min-folic 1 tab PO QAM 12/10/18 03/09/20 History acid-lutein 400 mcg-250 mcg chewable tablet polyethylene glycol 3350 17 17 gm PO DAILY PRN gm 12/10/18 03/09/20 History gram/dose oral powder venlafaxine 150 mg 150 mg PO QAM cap 12/10/18 03/09/20 History capsule,extended release 24 hr venlafaxine 37.5 mg tablet 37.5 mg PO QAM tab 12/10/18 03/09/20 History vitamins A,C,B-bjnh-ifwomj 14,320 1 cap PO BID cap 12/10/18 03/09/20 History unit-226 mg-200 unit capsule enalapril maleate 20 mg tablet 20 mg PO BID #180 tab 09/08/19 03/09/20 Rx metoprolol tartrate 50 mg tablet 50 mg PO BID #60 tab 09/08/19 03/09/20 Rx amlodipine 5 mg PO BID 03/09/20 03/09/20 History atorvastatin 40 mg PO QAM 03/09/20 03/09/20 History calcium carbonate-vitamin D3 2 tab PO QAM 03/09/20 03/09/20 History [Calcium 600 with Vitamin D3] insulin aspart U-100 [Novolog See Rx Instructions .ROUTE .COMPLEX 03/09/20 03/09/20 History U-100 Insulin aspart] isosorbide mononitrate 30 mg PO QAM 03/09/20 03/09/20 History torsemide 20 mg PO QAM 03/09/20 03/09/20 History Past Med/Surg History Medical History (Updated 03/09/20 @ 20:32 by Payton France DO) Anemia Aortic valve sclerosis Arteriosclerosis of carotid artery 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 Chronic gastroesophageal reflux disease Chronic kidney disease Chronic kidney disease, stage III (moderate) Depression Diabetes Diabetic peripheral neuropathy associated with type 2 diabetes mellitus Dyslipidemia Generalized osteoarthritis of multiple sites Graves disease H/O malignant neoplasm of uterine body Hypertension Hypoglycemia associated with type 2 diabetes mellitus Left ventricular diastolic dysfunction Macular degeneration Multiple thyroid nodules Obesity Osteopenia Secondary hyperparathyroidism Subclinical hyperthyroidism Superficial burn of left index finger Surgical History H/O basal cell carcinoma excision H/O shoulder surgery S/P complete hysterectomy Family History Father Lung cancer Diabetes Mother , in a home fire Hypertension Denies family history of Ovarian cancer Prostate cancer Myocardial infarction Breast cancer Colorectal cancer Social History Smoking Status: Former smoker Hx Alcohol Use: Yes Alcohol type: wine Hx Substance Use: No Preferred Language: Macedonian Communication Ability: Effective Visual Impairment: No Limitations Hearing Ability: Normal Beliefs That Will Affect Care: None marital status: Current Living Situation: Family current occupational status: retired Feels Safe at Home: Yes Safety Concerns Comment: unsteady at times Childhood Exposure to Second-Hand Smoke: Yes Dental Care, Regularly: No Physical Activity Frequency: Does not Exercise Seatbelt Use: always Sunscreen Use: No Assistive Devices: None Review of Systems Constitutional: no fever, no chills, no sweats, no body aches, no weakness and no insomnia Respiratory: no chest congestion, no pain on inspiration and no wheezing Cardiovascular: no chest pain, no palpitations, no lightheadedness and no syncope Gastrointestinal: no abdominal pain, no bloating, no heartburn, no vomiting and no blood in stools Genitourinary: no difficulty urinating, no urinary frequency, no decreased urination and no flank pain Musculoskeletal: no back pain, no joint pain, no stiffness and no muscle weakness Physical Exam Constitutional: + obese; no acute distress, not ill appearing and no altered mental status Eyes: PERRL, conjunctivae normal, anicteric sclerae retinal exam without overt retinal hemorrhages but inconclusive - adequate fundoscopy limited by examiner's PPE (face shield) Respiratory: normal respiratory effort; no respiratory distress and no labored breathing Auscultation: + wheezes (mild, inferior lobes bilaterally); no diminished lung sounds, no crackles, no rales and no rhonchi Cardiovascular: Rate/Rhythm: regular rate and regular rhythm Heart Sounds: + murmur (grade 4/6 systolic crescendo-decrescendo murmur) Vessels: normal peripheral pulses; no JVD Extremities: + calf tenderness; no edema Gastrointestinal (Abdomen): normal bowel sounds, soft, nontender, no hepatosplenomegaly Musculoskeletal: no flank tenderness; right calf nontender to palpation; moderate tenderness to palpation of the lower left calf without edema, erythema, or warmth Neurologic: CN's II-XI intact bilaterally and awake; not confused Speech / Cognition: normal speech and normal cognition Psychiatric: A+Ox3, euthymic affect Results & Data Results & Data ([facility]) Vital Signs (Past 12 Hours) Vital Signs Temp Pulse Pulse Resp BP BP Pulse Ox 03/09/20 21:21 195/77 H 03/09/20 20:46 88 210/95 H 03/09/20 20:45 92 H 20 210/95 H 96 03/09/20 20:10 78 20 215/80 H 98 03/09/20 18:40 74 20 237/78 H 03/09/20 16:57 225/102 H 03/09/20 16:29 20 215/84 H 94 03/09/20 14:46 36.3 C L 64 18 230/87 H 98 Supervising Physician Co-Signing Physician Notes Attending addendum: I have physically seen this patient, have supervised the medical residents activities, and agree with the H&P unless as otherwise noted. Assessment and Plan: Severe hypoglycemia- Discontinue her insulin pump for now. Placed on Accu-Cheks before meals and at bedtime with NovoLog coverage per scale Check hemoglobin A1c Uncontrolled hypertension- Unsure of how much her medications that she actually took today. We will place on IV metoprolol, IV Cardizem and IV hydralazine as noted. Resume antihypertensives as we can in the a.m. Urinary tract infection- Follow urine culture sensitivity Empiric ceftriaxone IV. Remaining orders and notations as noted Resident Activity Tracking Resident Involvement: Resident Care Provided Care Provided: Adult Hospital Medicine
[2020-03-09] MEDS ORDERED: METOPROLOL TARTRATE 1 MG/ML VIAL IV PRN (23:32)
[2020-03-09] MEDS ORDERED: dilTIAZem HCl 5 MG/ML 5 ML VIAL IV PRN (23:32)
[2020-03-10] MEDS ORDERED: cefTRIAXone SODIUM 2,000 MG/70 ML BAG IV STA (01:52)
[2020-03-10] MEDS: ENOXAPARIN INJ 40 MG/0.4 ML SYR SQ SCH (01:55)
[2020-03-10] MEDS ORDERED: DEXTROSE 50% 50 ML SYRINGE IV PRN ×2 (02:03)
[2020-03-10] MEDS ORDERED: GLUCAGON FOR INJ 1 MG VIAL SQ PRN ×2 (02:03)
[2020-03-10] MEDS ORDERED: ASPIRIN 325 MG ECTAB PO PRN (02:03)
[2020-03-10] MEDS ORDERED: GLUCOSE 40% GEL 15 GM TUBE PO PRN ×2 (02:03)
[2020-03-10] MEDS ORDERED: GLUCOSE 10 TABS/TUBE PO PRN ×2 (02:03)
[2020-03-10] MEDS ORDERED: ONDANSETRON INJ 2 MG/ML 2 ML VIAL IV PRN (02:03)
[2020-03-10] MEDS ORDERED: SODIUM CHLORIDE 0.9% 1000ML 1,000 ML IV ONE (02:03)
[2020-03-10] MEDS ORDERED: MAGNESIUM HYDROXIDE SUSP 30 ML UDC PO PRN (02:03)
[2020-03-10] MEDS ORDERED: CARBOHYDRATES FOR HYPOGLYCEMIA PO PRN ×2 (02:03)
[2020-03-10] MEDS ORDERED: ACETAMINOPHEN 325 MG TAB PO PRN (02:03)
[2020-03-10 06:27] LABS: Basophils # (auto) 0.02 K/uL (0-0.2); Basophils % (auto) 0.2 %; Eosinophils # (auto) 0.09 K/uL (0-0.5); Eosinophils % (auto) 0.9 %; Hematocrit (blood only) 34.5 % (37-47); Hemoglobin 10.7 g/dL (12.0-16.0); Immature Granulocytes # (auto) 0.03 K/uL (0.00-0.02); Immature Granulocytes % (auto) 0.3 %; Lymphocytes % (auto) 13.6 %; Mean Corpuscular Hemoglobin 27.3 pg (25-34); Mean Platelet Volume 10.1 fL (7.4-10.4); Monocytes # (auto) 0.83 K/uL (0.11-0.59); Monocytes % (auto) 8.7 %; Neutrophils # (auto) 7.27 K/uL (1.4-6.5); Neutrophils % (auto) 76.3 %; Platelet Count 224 K/uL (130-400); RDW Coefficient of Variation 15.6 % (11.5-14.5); Red Blood Count 3.92 M/uL (4.2-5.4); White Blood Count 9.54 K/uL (4.8-10.8)
[2020-03-10 06:58] LABS: BUN Creatinine Ratio 23.3 (10-20); Calcium 8.9 mg/dl (8.5-10.1); Creatinine Clr Calc Pharmacy 22.8 ml/min; Est GFR (African American) 21.1; Est GFR (Non-African American) 18.2; Potassium 4.4 mmol/L (3.5-5.1)
--- NOTE | 2020-03-10 07:19 | CT Scan Report ---
ABDOMEN AND PELVIS CT WITHOUT CONTRAST CT DOSE: 1262.88 mGy.cm HISTORY: Urinary tract infection. Chronic kidney disease. Altered mental status. TECHNIQUE: Multiaxial CT images of the abdomen and pelvis were performed without contrast. A dose lo wering technique was utilized adhering to the principles of ALARA. COMPARISON STUDY: None. FINDINGS: A few scattered subcentimeter bibasilar pulmonary nodules. Dominant nodule within the base of the left lower lobe on image 54 measures 4 mm. Moderate right and small left pleural effusions. As sociated compressive atelectasis within the bilateral lower lobes posteriorly. Punctate densities wit hin the atelectatic right lower lobe could be due to prior aspiration of barium. No pneumoperitoneum. No pneumatosis. No suspicious lytic or blastic osseous lesions. Scattered punctate calcified granulo ma seen within the liver and spleen. The unenhanced adrenal glands and pancreas are within normal pierre its. Bilateral perinephric edema. This is likely chronic. Renal vascular calcifications are noted. No renal or ureteral calculi. No hydronephrosis. No bladder wall thickening. The uterus is surgically a bsent. Moderate calcified plaque within the normal caliber abdominal aorta. No retroperitoneal lympha denopathy. The gallbladder is mildly distended. There are multiple small gallstones. Tiny hiatus drew ia. Suboptimal evaluation for bowel pathology due to the lack of intravenous and oral contrast. Howev er, there is no definite bowel wall thickening or obstruction. The appendix is not identified and rep ortedly surgically absent. Colonic diverticulosis. No evidence for acute diverticulitis. There is a 7 mm slightly hyperdense exophytic lesion within the lower pole the right kidney on image 227. This is incompletely characterized on this noncontrast study but could represent a small hyperdense cyst. IMPRESSION: 1. Moderate right and small left pleural effusions. 2. Bilateral perinephric edema, right greater than left. This is nonspecific but likely chronic. Isaac mmend correlation with urinalysis to exclude the possibility of an underlying infection. 3. Cholelithiasis. The gallbladder is mildly distended. No gallbladder wall thickening. 4. No bowel wall thickening or obstruction. 5. Colonic diverticulosis. No evidence for acute diverticulitis. ACT 112: Negative or not required by law. Electronically signed by: Carlito Eugene M.D. 03/10/2020 7:17 AM
[2020-03-10] MEDS: FERROUS SULFATE 325 MG TAB PO SCH (08:09)
[2020-03-10] MEDS: VENLAFAXINE HCL XR 150 MG CAPXR PO SCH (08:09)
[2020-03-10] MEDS: ISOSORBIDE MONO EXTENDED REL 30 MG TABCR PO SCH (08:09)
[2020-03-10] MEDS: ATORVASTATIN 40 MG TAB PO SCH (08:10)
[2020-03-10] MEDS: VENLAFAXINE HCL XR 37.5 MG CAPXR PO SCH (08:11)
[2020-03-10] MEDS: INSULIN ASPART 100 UNITS/ML 3 ML PEN SC SCH ×4 (08:22→19:22)
[2020-03-10] MEDS ORDERED: PHARMACY GLYCEMIC MGMT CONSULT SCH (08:35)
[2020-03-10] MEDS ORDERED: INSULIN GLARGINE SOLOSTAR 100 UNITS/ML 3 ML PEN SC ONE (11:45)
--- NOTE | 2020-03-10 12:13 | Pharmacy Report ---
Pharmacy Glycemic Short Note 2 - Date of Service March 10, 2020 - Glycemic Short BSG Results (Last 24 hours): 03/09/20 03/09/20 03/09/20 15:00 15:23 16:53 Glucose 60 L POC Glucose 139 H 195 H 03/09/20 03/09/20 03/09/20 19:22 22:08 23:21 Glucose POC Glucose 101 H 107 H 118 H 03/10/20 03/10/20 03/10/20 01:38 01:54 02:57 Glucose POC Glucose 138 H 117 H 141 H 03/10/20 03/10/20 03/10/20 03:57 05:19 07:15 Glucose 137 H POC Glucose 144 H 165 H 03/10/20 11:18 Glucose POC Glucose 236 H OUTPATIENT ANTIDIABETIC REGIMEN: * V-Go 40 insulin pump (Novolog): * basal = 40 units per day * bolus = 10 units (5 clicks) with breakfast + lunch, 16 units (8 clicks) with dinner * A1c = 6.1% ASSESSMENT: * Type 2 diabetic admitted for hypoglycemia, hypertensive urgency, DONNA and concerns for heart failure * Patient follows w/ Dr Grove's office and the above doses were confirmed w/ his office. * Spoke with fitter type bar and segment who has evaluated this patient earlier. Patient reported not always administering ordered bolus doses w/ meals and resulting in hyperglycemia later in the day (mid 200s). She has administered large rescue Novolog doses when BSGs are elevated (using Novolog via syringe) but has not been following the sliding scale given by endocrinology. These large bolus doses may be responsible for her observed lows. Fasting BSGs were reported to be in the mid 100s with current basal dose (40 units/day). No reported changes in dietary habits. * Will administer basal/bolus insulin this admission in the form of Lantus + Novolog, doses will be based upon expected total daily dose of ~60-80 units/day when tolerating a diet. PLAN FOR INPATIENT GLYCEMIC CONTROL: * Hold outpatient V-Go pump * Basal insulin * Lantus 20 units SQ x 1 now, then BID per scale: * 0 units if BSG less than 110 * 10 units if BSG 110-180 * 15 units if BSG greater than 180 * Bolus insulin * NovoLog per scale ACHS or Q6hrs while NPO * Goal Range: Low 110 mg/dL - High 140 mg/dL * Correction Factor: 20 mg/dL/unit * Nutritional / Prandial insulin per carb ratio of 1 unit per 7 grams CHO consumed PLAN FOR DISCHARGE: * Patient's A1c is at goal however she reports frequent hypoglycemic episodes as of late. This appears to be new finding since her last Endocrinology visit 01/2020. On discharge it may be quiñonez to reduce her basal insulin dose to 30 units/day, which will require change to V-Go-30 pump on discharge. Meal time doses may need adjusted as well, however would like to observe post-prandial BSG pattern this admission and insulin resistance to provide these recs. Helmet Coverer is providing patient with sliding scale for her to follow on discharge to prevent overcorrection of hyperglycemia.
--- NOTE | 2020-03-10 14:17 | Hospitalist Progress Note ---
Date of Service March 10, 2020 Assessment & Plan (1) Hypoglycemia: resolved. suspect tight insulin control at home with her insulin pump (recent a1c <7%) in setting of poor appetite and infection (UTI). pump removed. transitioned to SC insulin regimen. pharmacy consulted for glycemic management and assistance. likely to need adjustments to basal rate and correction on pump prior to discharge. (2) Acute kidney injury: 2nd volume depletion in setting of illness. Give 1 additional liter of NS. repeat BMP am. (3) Acute UTI (urinary tract infection): 2nd to gram negative freda. cont IV rocephin. follow culture. suspect UTI contributing to patient feeling poorly this week. (4) Gallstones: Due to her illness this week I elected to obtain a RUQ u/s to rule out acute cholecystitis as the cause of her symptoms (nausea, feeling unwell, anorexia, etc). RUQ u/s with numerous gallstones but no signs of acute cholecystitis. LFTs wnl. 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 trend H/H acceptable however (8) Chronic kidney disease, stage III (moderate): Cr was 2.3 in early January this may be her new baseline IV fluids and repeat BMP in am no obstruction seen on CT yesterday (9) Diabetic nephropathy associated with type 2 diabetes mellitus: pharmacy glycemic management consult placed ideally should be on LASHAY but await to see where Creatinine settles during this stay (10) Graves disease: history of TSH this admission wnl (11) Dyslipidemia: cont statin check CPK in am (12) DVT prophylaxis: lovenox consults placed to PT/OT COVID-19 RULED OUT TODAY with negative testing due to myalgias and statin usage will check CPK in am updated daughter by phone today Admission and Anticipated Discharge Date Admission Date: March 09, 2020 Subjective tele stable overnight. patient lying in bed comfortably during the visit. she reports feeling poorly since Friday of this week with fatigue, decrease in appetite, achiness in muscles, etc. minimal shortness of breath this week with minimal cough. no travel or sick contacts. insulin pump is off- pharmacy consulted for management. NO low blood sugars since admission. patient reports nausea with eating but no abdominal pain. Review of Systems Constitutional: no fever and no chills Respiratory: + dyspnea Cardiovascular: no orthopnea and no edema Gastrointestinal: no abdominal pain, no vomiting and no diarrhea/loose stools Physical Exam Constitutional: + obese; no acute distress and no altered mental status ENMT: Mouth: + dry oral mucous membranes Respiratory: normal respiratory effort, lungs clear to auscultation Cardiovascular: Rate/Rhythm: regular rate and regular rhythm Heart Sounds: normal S1 and normal S2; no murmur Vessels: posterior tibial pulses present and dorsalis pedis pulses present; no JVD Extremities: no edema Gastrointestinal (Abdomen): normal bowel sounds, soft, nontender, no hepatosplenomegaly Inspection/Auscultation: abdomen normal to inspection; ab domen not distended Psychiatric: A+Ox3, euthymic affect Results & Data Results & Data ([facility]) Vital Signs (Past 12 Hours) Vital Signs Temp Pulse Pulse Resp BP Pulse Ox 03/10/20 11:18 37.4 C 88 20 148/49 H 91 03/10/20 08:00 95 H 03/10/20 07:13 37.2 C 93 H 20 169/66 H 91 03/10/20 04:00 37.6 C H 95 H 19 154/76 H 92 Laboratory Results Laboratory Results - last 24 hr 03/10/20 03/10/20 03/10/20 05:19 07:15 09:50 Sodium 143 Potassium 4.4 D Chloride 110 H Carbon Dioxide 25 Anion Gap 8.0 BUN 58 H Creatinine 2.47 H Est Cr Clr Drug Dosing 22.8 Est GFR ( Amer) 21.1 Est GFR (Non-Af Amer) 18.2 BUN/Creatinine Ratio 23.3 H Glucose 137 H POC Glucose 165 H Calcium 8.9 COVID-19 Eval Order Covid19 Done at [facility] COVID-19 PCR 03/10/20 03/10/20 03/10/20 09:50 11:18 15:50 Sodium Potassium Chloride Carbon Dioxide Anion Gap BUN Creatinine Est Cr Clr Drug Dosing Est GFR ( Amer) Est GFR (Non-Af Amer) BUN/Creatinine Ratio Glucose POC Glucose 236 H 210 H Calcium COVID-19 Eval Order COVID-19 PCR NEGATIVE 03/10/20 19:20 Sodium Potassium Chloride Carbon Dioxide Anion Gap BUN Creatinine Est Cr Clr Drug Dosing Est GFR ( Amer) Est GFR (Non-Af Amer) BUN/Creatinine Ratio Glucose POC Glucose 134 H Calcium COVID-19 Eval Order COVID-19 PCR PG Care Time/CCT Total # of Minutes Spent Total Time Spent with Patient: Total time spent is greater than 50% in coordination of care (as documented) at patient's floor/unit and/or counseling patient: Coding Level of Care Code 72151 Subseq Hosp Care Lvl 3 Diagnoses Hypoglycemia E16.2 Acute kidney injury N17.9 Acute UTI (urinary tract infection) N39.0 Gallstones K80.20 Hypertension, uncontrolled I10 Urge and stress incontinence N39.46 Anemia D64.9 Chronic kidney disease, stage III (moderate) N18.3 Diabetic nephropathy associated with type 2 diabetes mellitus E11.21 Graves disease E05.00 Dyslipidemia E78.5 DVT prophylaxis Z29.9
[2020-03-10] MEDS ORDERED: SODIUM CHLORIDE 0.9% 1000ML 1,000 ML IV SCH (14:30)
[2020-03-10] MEDS ORDERED: cefTRIAXone SODIUM 2,000 MG/70 ML BAG IV SCH (18:00)
--- NOTE | 2020-03-10 19:08 | Ultrasound Report ---
US gallbladder HISTORY: 79 years-old Female fever, nausea, gallstones; eval cholecystitis acute right upper quadran t abdominal pain with fever and nausea COMPARISON: CT abdomen and pelvis 03/09/2020 TECHNIQUE: Multiple real-time sonographic images of the abdominal right upper quadrant were obtained assessing grayscale appearance and color flow FINDINGS: Pancreas is mostly obscured by bowel gas. Liver is unremarkable. Moderately distended gallbladder wit h layering cholelithiasis. There is no gallbladder wall thickening or pericholecystic fluid. Sonograp hic Reyna sign reported as negative. Normal common bile duct, 5 mm. Cortical thinning of the right kidney which measures 9.7 cm in length. No hydronephrosis. IMPRESSION: 1. Moderately distended gallbladder with cholelithiasis. No sonographic evidence of acute cholecystit is. 2. No biliary ductal dilation. ACT 112: Negative or not required by law. The above report was generated using voice recognition software. It may contain grammatical, syntax o r spelling errors. Electronically signed by: Beau Osullivan M.D. 03/10/2020 7:07 PM
[2020-03-10] MEDS: cefTRIAXone SODIUM 2,000 MG in DEXTROSE 5% 50 ML IV SCH (19:12)
--- NOTE | 2020-03-10 19:13 | Electrocardiogram Report ---
Test Reason : Blood Pressure : / mmHG Vent. Rate : 073 BPM Atrial Rate : 073 BPM P-R Int : 156 ms QRS Dur : 108 ms QT Int : 428 ms P-R-T Axes : 112 017 058 degrees QTc Int : 471 ms Sinus rhythm with occasional Premature ventricular complexes Otherwise normal ECG When compared with ECG of 13-NOV-2016 15:48, Premature ventricular complexes are now Present Vent. rate has increased BY 24 BPM QT has lengthened Confirmed by Patrice Berrios ([id number]) on 03/10/2020 7:13:13 PM Referred By: REFERRED SELF Confirmed By:Patrice Berrios
[2020-03-10] MEDS: INSULIN GLARGINE SOLOSTAR 100 UNITS/ML 3 ML PEN SC SCH (19:24)
--- NOTE | 2020-03-10 22:40 | Billing Data ---
Date of Service March 10, 2020 Coding Level of Care Code 83888 Initial Inpt Care Lvl 3
[2020-03-11] MEDS ORDERED: LORazepam 1 MG TAB ONE (01:14)
[2020-03-11] MEDS: hydrALAZINE HCL 20 MG/ML VIAL IV PRN ×3 (01:20→23:49)
[2020-03-11] MEDS: ENOXAPARIN INJ 40 MG/0.4 ML SYR SQ SCH (02:38)
[2020-03-11 07:01] LABS: BUN Creatinine Ratio 22.1 (10-20); Calcium 8.8 mg/dl (8.5-10.1); Creatinine Clr Calc Pharmacy 20.8 ml/min; Est GFR (African American) 18.5; Potassium 4.2 mmol/L (3.5-5.1)
[2020-03-11] MEDS ORDERED: POLYETHYLENE (MIRALAX) 17 GM PACK PO PRN (07:39)
[2020-03-11] MEDS: INSULIN ASPART 100 UNITS/ML 3 ML PEN SC SCH ×4 (07:42→21:33)
[2020-03-11] MEDS ORDERED: SODIUM CHLORIDE 0.9% 1000ML 1,000 ML IV SCH (07:45)
[2020-03-11] MEDS: INSULIN GLARGINE SOLOSTAR 100 UNITS/ML 3 ML PEN SC SCH (08:30)
[2020-03-11] MEDS: METOPROLOL TARTRATE 50 MG TAB PO SCH ×2 (08:31→21:30)
[2020-03-11] MEDS: ATORVASTATIN 40 MG TAB PO SCH (08:31)
[2020-03-11] MEDS: ASCORBIC ACID 500 MG TAB PO SCH ×2 (08:31→21:29)
[2020-03-11] MEDS: MULTIVITAMIN TAB PO SCH (08:31)
[2020-03-11] MEDS: amLODIPine BESYLATE 5 MG TAB PO SCH ×2 (08:31→21:29)
[2020-03-11] MEDS: VENLAFAXINE HCL XR 37.5 MG CAPXR PO SCH (08:31)
[2020-03-11] MEDS: CHOLECALCIFEROL 1,000 UNITS 25 MCG TAB PO SCH ×2 (08:31→21:29)
[2020-03-11] MEDS: CALCIUM 600MG + VIT D 400 IU TAB PO SCH ×2 (08:31→21:30)
[2020-03-11] MEDS: VENLAFAXINE HCL XR 150 MG CAPXR PO SCH (08:31)
[2020-03-11] MEDS: ISOSORBIDE MONO EXTENDED REL 30 MG TABCR PO SCH (08:31)
--- NOTE | 2020-03-11 10:46 | Hospitalist Progress Note ---
Date of Service March 11, 2020 Assessment & Plan (1) Hypoglycemia: resolved. suspect tight insulin control at home with her insulin pump (recent a1c <7%) in setting of poor appetite and infection (UTI). pump removed on admission. transitioned to SC insulin regimen. pharmacy consulted for glycemic management and assistance. likely to need adjustments to basal rate and correction on pump prior to discharge. Follows with Endocrinology as outpt (2) Acute kidney injury: 2nd volume depletion in setting of illness. Received 1 further L NS on 03/10 Rcp still rising today at 2.75 Give 1 additional liter of NS on 03/11 and encouraged po hydration She is making urine, other lytes ok -continue to hold home torsemide, enalapril repeat BMP am. (3) Acute UTI (urinary tract infection): 2nd to Klebsiella pneumoniae, pansensitive cont IV rocephin for today and transition to cefdinir tomorrow to finish out 7 day course-last dose should be 03/15/20. Suspect UTI contributing to patient feeling poorly this week which is now much improved (4) Gallstones: Due to her illness this week had RUQ u/s to rule out acute cholecystitis as the cause of her symptoms (nausea, feeling unwell, anorexia, etc). RUQ u/s with numerous gallstones but no signs of acute cholecystitis. LFTs wnl. 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 Spangler of Nephrology (9) Diabetic nephropathy associated with type 2 diabetes mellitus: pharmacy glycemic management consult placed ideally should be on LASHAY but await to see where Creatinine settles during this stay (10) Graves disease: Thyroid: Remote history of graves per record. TSH monitored now annually, Apr 2019 TSH 2.550 (0.300-4.500 uIu/ml). Also, history of multi nodular goiter. Large nodule biopsied in 2009, benign. Ultrasound 01/2016 stable, advised to repeat 2020. TSH this admission wnl Follows with Endocrinology (11) Dyslipidemia: cont statin CPK here normal (12) Constipation: make Miralax scheduled, no BM in 3 days (13) Depression: stable, continue Effexor (14) DVT prophylaxis: lovenox consults placed to PT/OT-pending. Pt states she holds onto the sam at home to walk and has cane for outings. Is agreeable to home health if recommended COVID-19 RULED OUT here with negative testing Dispo-continued stay for DONNA, but can transfer to medical floor Admission and Anticipated Discharge Date Admission Date: March 09, 2020 Subjective Pt feeling well, has no complaints. Denies NV, no abd pain, no trouble urinating. She has not moved her bowels since admission and requests Miralax. Denies CP. Has chronic [place] but not new. Is ambulating with assistance and reports she uses the sam to hold onto at home to ambulate and a cane when out. Tele with NSR, PVCs, rates 70-80s Review of Systems Review of Systems: All systems reviewed & are unremarkable except as noted in HPI & below Physical Exam Constitutional: WD/WN, vitals as above Eyes: + anicteric sclerae ENMT: external ear and nose normal, oropharynx normal Neck: trachea midline, no thyromegaly Respiratory: normal respiratory effort, lungs clear to auscultation Cardiovascular: RRR, no murmur, no edema Chest (Breasts): Chest: normal inspection of chest Gastrointestinal (Abdomen): normal bowel sounds, soft, nontender, no hepatosplenomegaly Musculoskeletal: Extremities: extremities normal to inspection; no cyanosis and no clubbing Skin: no rashes, warm and dry Neurologic: moves all extremities and awake; no focal motor deficits Psychiatric: A+Ox3, euthymic affect Lymphatic: no lymphedema Results & Data Results & Data ([facility]) Vital Signs (Past 12 Hours) Vital Signs Temp Pulse Pulse Resp BP BP BP 03/11/20 07:29 36.8 C 83 19 178/69 H 03/11/20 04:15 36.7 C 87 20 154/48 H 03/11/20 02:42 153/53 H 03/11/20 01:00 204/78 H 03/11/20 00:19 80 192/94 H 03/11/20 00:01 36.7 C 80 20 192/94 H 03/11/20 00:00 78 Pulse Ox 03/11/20 07:29 92 03/11/20 04:15 92 03/11/20 02:42 03/11/20 01:00 03/11/20 00:19 03/11/20 00:01 91 03/11/20 00:00 Laboratory Results 03/11/20 03/11/20 03/11/20 Range/Units 07:27 06:14 06:14 Sodium 142 (136-145) mmol/L Potassium 4.2 (3.5-5.1) mmol/L Chloride 111 H (98-107) mmol/L Carbon Dioxide 25 (21-32) mmol/L Anion Gap 6.0 (3-11) BUN 61 H (7-18) mg/dl Creatinine 2.75 H (0.6-1.2) mg/dl Est Cr Clr Drug Dosing 20.8 ml/min Est GFR ( Amer) 18.5 Est GFR (Non-Af Amer) 16.0 BUN/Creatinine Ratio 22.1 H (10-20) Glucose 149 H (70-99) mg/dl POC Glucose 176 H (70-99) mg/dl Calcium 8.8 (8.5-10.1) mg/dl Total Creatine Kinase 51 (26-192) U/L COVID-19 PCR (Negative) 03/10/20 03/10/20 03/10/20 Range/Units 19:20 15:50 11:18 Sodium (136-145) mmol/L Potassium (3.5-5.1) mmol/L Chloride (98-107) mmol/L Carbon Dioxide (21-32) mmol/L Anion Gap (3-11) BUN (7-18) mg/dl Creatinine (0.6-1.2) mg/dl Est Cr Clr Drug Dosing ml/min Est GFR ( Amer) Est GFR (Non-Af Amer) BUN/Creatinine Ratio (10-20) Glucose (70-99) mg/dl POC Glucose 134 H 210 H 236 H (70-99) mg/dl Calcium (8.5-10.1) mg/dl Total Creatine Kinase (26-192) U/L COVID-19 PCR (Negative) 03/10/20 Range/Units 09:50 Sodium (136-145) mmol/L Potassium (3.5-5.1) mmol/L Chloride (98-107) mmol/L Carbon Dioxide (21-32) mmol/L Anion Gap (3-11) BUN (7-18) mg/dl Creatinine (0.6-1.2) mg/dl Est Cr Clr Drug Dosing ml/min Est GFR ( Amer) Est GFR (Non-Af Amer) BUN/Creatinine Ratio (10-20) Glucose (70-99) mg/dl POC Glucose (70-99) mg/dl Calcium (8.5-10.1) mg/dl Total Creatine Kinase (26-192) U/L COVID-19 PCR NEGATIVE (Negative) PG Care Time/CCT Total # of Minutes Spent Total Time Spent with Patient: Total time spent is greater than 50% in coordination of care (as documented) at patient's floor/unit and/or counseling patient: Coding Level of Care Code 86588 Subseq Hosp Care Lvl 3 Diagnoses Hypoglycemia E16.2 Acute kidney injury N17.9 Acute UTI (urinary tract infection) N39.0 Gallstones K80.20 Hypertension, uncontrolled I10 Urge and stress incontinence N39.46 Anemia D64.9 Chronic kidney disease, stage III (moderate) N18.3 Diabetic nephropathy associated with type 2 diabetes mellitus E11.21 Graves disease E05.00 Dyslipidemia E78.5 Constipation K59.00 Depression F32.9 DVT prophylaxis Z29.9
[2020-03-11] MEDS: POLYETHYLENE (MIRALAX) 17 GM PACK PO SCH (11:47)
[2020-03-11] MEDS ORDERED: INSULIN GLARGINE SOLOSTAR 100 UNITS/ML 3 ML PEN SC SCH (12:15)
--- NOTE | 2020-03-11 14:54 | Pharmacy Report ---
Pharmacy Glycemic Short Note 2 - Date of Service March 11, 2020 - Glycemic Short BSG Results (Last 24 hours): 03/10/20 03/10/20 03/11/20 15:50 19:20 06:14 Glucose 149 H POC Glucose 210 H 134 H 03/11/20 03/11/20 07:27 11:31 Glucose POC Glucose 176 H 174 H OUTPATIENT ANTIDIABETIC REGIMEN: * V-Go 40 insulin pump (Novolog): * basal = 40 units per day * bolus = 10 units (5 clicks) with breakfast + lunch, 16 units (8 clicks) with dinner * A1c = 6.1% ASSESSMENT: 03/11: * Patient received total of 49 units of insulin yesterday: 30 units of basal + 19 units bolus * Fasting BSG today was 176 mg/dl this AM. Lantus 30 units was ordered for noon today. * Pre-lunch BSG today was 174 mg/dl which is only slightly above goal. Continued same Novolog parameters as yesterday. 03/10: * Type 2 diabetic admitted for hypoglycemia, hypertensive urgency, DONNA and concerns for heart failure * Patient follows w/ Dr Grove's office and the above doses were confirmed w/ his office. * Spoke with parent educator who has evaluated this patient earlier. Patient reported not always administering ordered bolus doses w/ meals and resulting in hyperglycemia later in the day (mid 200s). She has administered large rescue Novolog doses when BSGs are elevated (using Novolog via syringe) but has not been following the sliding scale given by endocrinology. These large bolus doses may be responsible for her observed lows. Fasting BSGs were reported to be in the mid 100s with current basal dose (40 units/day). No reported changes in dietary habits. * Will administer basal/bolus insulin this admission in the form of Lantus + Novolog, doses will be based upon expected total daily dose of ~60-80 units/day when tolerating a diet. PLAN FOR INPATIENT GLYCEMIC CONTROL: * Hold outpatient V-Go pump * Basal insulin: continued * Lantus 30 units SQ Q24h * Bolus insulin: continued * NovoLog per scale ACHS or Q6hrs while NPO * Goal Range: Low 110 mg/dL - High 140 mg/dL * Correction Factor: 20 mg/dL/unit * Nutritional / Prandial insulin per carb ratio of 1 unit per 7 grams CHO consumed PLAN FOR DISCHARGE: * Patient's A1c is at goal however she reports frequent hypoglycemic episodes as of late. This appears to be new finding since her last Endocrinology visit 01/2020. On discharge it may be quiñonez to reduce her basal insulin dose to 30 units/day, which will require change to V-Go-30 pump on discharge. Meal time doses may need adjusted as well, however would like to observe post-prandial BSG pattern this admission and insulin resistance to provide these recs. Inpatient Services Director is providing patient with sliding scale for her to follow on discharge to prevent overcorrection of hyperglycemia.
[2020-03-11] MEDS: cefTRIAXone SODIUM 2,000 MG in DEXTROSE 5% 50 ML IV SCH (18:42)
[2020-03-12 05:31] LABS: Basophils # (auto) 0.02 K/uL (0-0.2); Basophils % (auto) 0.3 %; Eosinophils # (auto) 0.64 K/uL (0-0.5); Eosinophils % (auto) 8.3 %; Hematocrit (blood only) 32.1 % (37-47); Immature Granulocytes # (auto) 0.04 K/uL (0.00-0.02); Immature Granulocytes % (auto) 0.5 %; Lymphocytes # (auto) 1.82 K/uL (1.2-3.4); Lymphocytes % (auto) 23.7 %; Mean Corpuscular Hemoglobin 27.4 pg (25-34); Mean Corpuscular Hgb Conc 31.2 g/dL (32-36); Mean Corpuscular Volume 87.9 fL (80-100); Mean Platelet Volume 9.5 fL (7.4-10.4); Monocytes # (auto) 0.98 K/uL (0.11-0.59); Monocytes % (auto) 12.8 %; Neutrophils # (auto) 4.18 K/uL (1.4-6.5); Neutrophils % (auto) 54.4 %; Platelet Count 199 K/uL (130-400); RDW Coefficient of Variation 15.5 % (11.5-14.5); RDW Standard Deviation 50.3 fL (36.4-46.3); Red Blood Count 3.65 M/uL (4.2-5.4); White Blood Count 7.68 K/uL (4.8-10.8)
[2020-03-12 05:54] LABS: BUN Creatinine Ratio 25.3 (10-20); Calcium 9.2 mg/dl (8.5-10.1); Creatinine Clr Calc Pharmacy 22.4 ml/min; Est GFR (African American) 20.2; Est GFR (Non-African American) 17.4; Potassium 4.4 mmol/L (3.5-5.1)
[2020-03-12 05:57] LABS: Ferritin 93.7 ng/ml (8-388)
[2020-03-12] MEDS: amLODIPine BESYLATE 5 MG TAB PO SCH ×2 (07:31→20:41)
[2020-03-12] MEDS: ISOSORBIDE MONO EXTENDED REL 30 MG TABCR PO SCH (07:33)
[2020-03-12] MEDS: METOPROLOL TARTRATE 50 MG TAB PO SCH ×2 (07:33→20:41)
[2020-03-12] MEDS: INSULIN ASPART 100 UNITS/ML 3 ML PEN SC SCH ×4 (08:33→20:43)
[2020-03-12] MEDS: CALCIUM 600MG + VIT D 400 IU TAB PO SCH ×2 (08:34→20:40)
[2020-03-12] MEDS: VENLAFAXINE HCL XR 37.5 MG CAPXR PO SCH (08:34)
[2020-03-12] MEDS: FERROUS SULFATE 325 MG TAB PO SCH (08:35)
[2020-03-12] MEDS: ATORVASTATIN 40 MG TAB PO SCH (08:35)
[2020-03-12] MEDS: VENLAFAXINE HCL XR 150 MG CAPXR PO SCH (08:35)
[2020-03-12] MEDS: MULTIVITAMIN TAB PO SCH (08:36)
[2020-03-12] MEDS: ENOXAPARIN INJ 40 MG/0.4 ML SYR SQ SCH (08:36)
[2020-03-12] MEDS: CHOLECALCIFEROL 1,000 UNITS 25 MCG TAB PO SCH ×2 (08:37→20:41)
[2020-03-12] MEDS: ASCORBIC ACID 500 MG TAB PO SCH ×2 (08:37→20:40)
[2020-03-12] MEDS: INSULIN GLARGINE SOLOSTAR 100 UNITS/ML 3 ML PEN SC SCH (08:39)
[2020-03-12] MEDS: POLYETHYLENE (MIRALAX) 17 GM PACK PO SCH (08:44)
--- NOTE | 2020-03-12 09:14 | Hospitalist Progress Note ---
Date of Service March 12, 2020 Assessment & Plan (1) Hypoglycemia: resolved. suspect tight insulin control at home with her insulin (recent a1c <7%) in setting of poor appetite and infection (UTI). Pt states that she typically is on VGO 40 at home and thomas consult endocrine for advice on perhaps transitionng to lower delivery device such as the 20 or 30 vs scrapping this system all to gether transitioned to SC insulin regimen. pharmacy consulted for glycemic management and assistance. Follows with Endocrinology as outpt (2) Acute kidney injury: 2nd volume depletion in setting of illness. Received 1 further L NS on 03/10 Cr down to 2.5, previously was <2, will continue support and follow She is making urine, other lytes ok -continue to hold home torsemide, enalapril (3) Acute UTI (urinary tract infection): 2nd to Klebsiella pneumoniae, pansensitive cont IV rocephin for today and transition to cefdinir tomorrow to finish out 7 day course-last dose should be 03/15/20. Suspect UTI contributing to patient feeling poorly this week which is now much improved (4) Gallstones: Due to her illness this week had RUQ u/s to rule out acute cholecystitis as the cause of her symptoms (nausea, feeling unwell, anorexia, etc). RUQ u/s with numerous gallstones but no signs of acute cholecystitis. LFTs wnl. 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 Spangler of Nephrology (9) Diabetic nephropathy associated with type 2 diabetes mellitus: pharmacy glycemic management consult placed ideally should be on LASHAY but await to see where Creatinine settles during this stay (10) Graves disease: Thyroid: Remote history of graves per record. TSH monitored now annually, Apr 2019 TSH 2.550 (0.300-4.500 uIu/ml). Also, history of multi nodular goiter. Large nodule biopsied in 2009, benign. Ultrasound 01/2016 stable, advised to repeat 2020. TSH this admission wnl Follows with Endocrinology (11) Dyslipidemia: cont statin (12) Constipation: make Miralax scheduled, no BM in 3 days (13) Depression: stable, continue Effexor (14) DVT prophylaxis: lovenox PT/OT. Pt states she holds onto the sam at home to walk and has cane for outings. Is agreeable to home health if recommended COVID-19 RULED OUT here with negative testing Admission and Anticipated Discharge Date Admission Date: March 09, 2020 Subjective pt is feeling better initially was with low blood glucoses on a insulin delivery system of vgo 40. she has a pansensitive klebsiella uti, and has some deconditioning overall she is feeling much better Review of Systems Review of Systems: Very little distress distress and minor fatigue no headache, blurry or double vision no speech or swallowing issues no chest pain, pressure or palpitations no shortness of breath, cough or wheezes no abdominal pain, nausea or vomiting, diarrhea or constipation Still with some mild dysuria, but no hematuria or frequency no focal joint pain or swelling no back pain, CVA tenderness or radicular pain no bruising, bleeding or rashes no focal signs of weakness or numbness or altered sensation no complaints of anxiety or depression. Physical Exam Physical Exam: The patient appeared well nourished and normally developed. Vital signs as documented. Head exam is normocephalic atraumatic no scleral icterus Neck is without JVD, thyromegaly, or carotid bruits. Lungs are clear to auscultation, no focal loss of breath sounds Cardiac exam, Rhythm is regular.. No murmurs, rubs or gallops. Abdominal exam reveals normal bowel sounds, soft non tender, no masses Extremities are nonedematous and both pedal pulses are present Neurologic exam is alert and oriented, no focal loss of strength or sensation Skin is without bruises or rashes Psychologically is without concerns for anxiety or depression. Results & Data Results & Data ([facility]) Vital Signs (Past 12 Hours) Vital Signs Temp Pulse Resp BP BP Pulse Ox 03/12/20 07:23 97.7 F 71 16 181/70 H 94 03/12/20 03:00 97.7 F 72 16 157/69 H 94 03/12/20 01:05 EST 173/63 H 180/68 H 03/12/20 00:00 192/80 H 03/11/20 23:32 98.2 F 63 15 188/72 H 95 PG Care Time/CCT Total # of Minutes Spent Total Time Spent with Patient: Total time spent is greater than 50% in coordination of care (as documented) at patient's floor/unit and/or counseling patient: Coding Level of Care Code 94249 Subseq Hosp Care Lvl 3 Diagnoses Hypoglycemia E16.2 Acute kidney injury N17.9 Acute UTI (urinary tract infection) N39.0 Gallstones K80.20 Hypertension, uncontrolled I10 Urge and stress incontinence N39.46 Anemia D64.9 Chronic kidney disease, stage III (moderate) N18.3 Diabetic nephropathy associated with type 2 diabetes mellitus E11.21 Graves disease E05.00 Dyslipidemia E78.5 Constipation K59.00 Depression F32.9 DVT prophylaxis Z29.9
[2020-03-12] MEDS: hydrALAZINE HCL 20 MG/ML VIAL IV PRN ×2 (09:37→18:31)
[2020-03-12 14:28] LABS: Folate (Folic Acid) 20.66 ng/ml (>5.38)
[2020-03-12] MEDS: cefTRIAXone SODIUM 2,000 MG in DEXTROSE 5% 50 ML IV SCH (19:04)
[2020-03-13] MEDS: hydrALAZINE HCL 20 MG/ML VIAL IV PRN ×2 (03:36→15:37)
[2020-03-13] MEDS ORDERED: METOPROLOL TARTRATE 25 MG TAB PO ONE (04:57)
[2020-03-13 06:41] LABS: BUN Creatinine Ratio 26.4 (10-20); Calcium 9.9 mg/dl (8.5-10.1); Creatinine Clr Calc Pharmacy 23.5 ml/min; Est GFR (African American) 21.4; Est GFR (Non-African American) 18.5; Potassium 4.5 mmol/L (3.5-5.1)
[2020-03-13] MEDS: ATORVASTATIN 40 MG TAB PO SCH (08:07)
[2020-03-13] MEDS: amLODIPine BESYLATE 5 MG TAB PO SCH (08:07)
[2020-03-13] MEDS: VENLAFAXINE HCL XR 37.5 MG CAPXR PO SCH (08:08)
[2020-03-13] MEDS: ASCORBIC ACID 500 MG TAB PO SCH (08:08)
[2020-03-13] MEDS: CHOLECALCIFEROL 1,000 UNITS 25 MCG TAB PO SCH (08:08)
[2020-03-13] MEDS: ISOSORBIDE MONO EXTENDED REL 30 MG TABCR PO SCH (08:09)
[2020-03-13] MEDS: METOPROLOL TARTRATE 50 MG TAB PO SCH (08:09)
[2020-03-13] MEDS: MULTIVITAMIN TAB PO SCH (08:09)
[2020-03-13] MEDS: POLYETHYLENE (MIRALAX) 17 GM PACK PO SCH (08:10)
[2020-03-13] MEDS: VENLAFAXINE HCL XR 150 MG CAPXR PO SCH (08:10)
[2020-03-13] MEDS: CALCIUM 600MG + VIT D 400 IU TAB PO SCH (08:11)
[2020-03-13] MEDS: ENOXAPARIN INJ 40 MG/0.4 ML SYR SQ SCH (08:11)
[2020-03-13] MEDS: INSULIN ASPART 100 UNITS/ML 3 ML PEN SC SCH ×2 (08:46→12:59)
[2020-03-13] MEDS: INSULIN GLARGINE SOLOSTAR 100 UNITS/ML 3 ML PEN SC SCH (08:46)
[2020-03-13] MEDS ORDERED: METOPROLOL TARTRATE 25 MG TAB PO SCH (09:00)
--- NOTE | 2020-03-13 09:32 | Pharmacy Report ---
Pharmacy Glycemic Short Note 2 - Date of Service March 13, 2020 - Glycemic Short BSG Results (Last 24 hours): OUTPATIENT ANTIDIABETIC REGIMEN: * V-Go 40 insulin pump (Novolog): * basal = 40 units per day * bolus = 10 units (5 clicks) with breakfast + lunch, 16 units (8 clicks) with dinner * A1c = 6.1% ASSESSMENT: 03/13: * Sonam received a total of 65 units of insulin yesterday * 30 units basal + 35 units bolus * BSGs were [phone] mg/dL - adequate control * Fasting BSG this AM was 134 mg/dL - at goal * Continue current basal dose * Lunchtime BSG was 177 mg/dL. * No change to Novolog parameters 03/11: * Patient received total of 49 units of insulin yesterday: 30 units of basal + 19 units bolus * Fasting BSG today was 176 mg/dl this AM. Lantus 30 units was ordered for noon today. * Pre-lunch BSG today was 174 mg/dl which is only slightly above goal. Continued same Novolog parameters as yesterday. 03/10: * Type 2 diabetic admitted for hypoglycemia, hypertensive urgency, DONNA and concerns for heart failure * Patient follows w/ Dr Grove's office and the above doses were confirmed w/ his office. * Spoke with special services supervisor who has evaluated this patient earlier. Patient reported not always administering ordered bolus doses w/ meals and resulting in hyperglycemia later in the day (mid 200s). She has administered large rescue Novolog doses when BSGs are elevated (using Novolog via syringe) but has not been following the sliding scale given by endocrinology. These large bolus doses may be responsible for her observed lows. Fasting BSGs were reported to be in the mid 100s with current basal dose (40 units/day). No reported changes in dietary habits. * Will administer basal/bolus insulin this admission in the form of Lantus + Novolog, doses will be based upon expected total daily dose of ~60-80 units/day when tolerating a diet. PLAN FOR INPATIENT GLYCEMIC CONTROL: * Hold outpatient V-Go pump * Basal insulin - no change * Lantus 30 units SQ Q24h * Bolus insulin - no change * NovoLog per scale ACHS or Q6hrs while NPO * Goal Range: Low 110 mg/dL - High 140 mg/dL * Correction Factor: 20 mg/dL/unit * Nutritional / Prandial insulin per carb ratio of 1 unit per 7 grams CHO consumed PLAN FOR DISCHARGE: * Patient's A1c is at goal however she reports frequent hypoglycemic episodes as of late. This appears to be new finding since her last Endocrinology visit 01/2020. On discharge it may be quiñonez to reduce her basal insulin dose to 30 units/day, which will require change to V-Go-30 pump on discharge. Meal time doses may need adjusted as well, however would like to observe post-prandial BSG pattern this admission and insulin resistance to provide these recs. Cloth Sponger is providing patient with sliding scale for her to follow on discharge to prevent overcorrection of hyperglycemia.
--- NOTE | 2020-03-13 17:54 | Discharge Summary ---
Date of Service March 13, 2020 Admission HPI Per Admitting Provider Sonam Bolivar is a 79yo female with a history of treatment-resistant HTN, IDDM (A1c 6.1), CKD stage III, HFpEF, urinary incontinence, and UTI who presented to the ED via ambulance for recurrent episodes of symptomatic hypoglycemia. This afternoon she was found at home in bed, awake but unresponsive and not making eye contact; her daughter took her blood sugar which was 44. Per daughter, patient has had similar episodes of nonresponsiveness and low BSG three times total in the last four days (03/06, 03/07, and today). On 03/06 and 03/07 patient was given juice and food, and returned to baseline after a few hours. Today, her daughter called an ambulance because "this kind of thing happening three times is too much". Patient does not remember today's episode. Patient reports feeling fatigued over the past week and sleeping earlier than normal. Daughter notes that patient has had some shortness of breath on exertion recently as well as lower extremity edema. Patient denies fever, chest pain, abdominal pain, urinary frequency, urinary urgency, pain with urination, vomiting, diarrhea, change in appetite, sore throat, palpitations, cough, wheezing, bloody stools, change in hearing or vision, numbness, tingling, weakness, increased hunger or thirst, today as well as over the past week. She reports a mild headache and mild nausea which she says started within the past hour. She has had no illnesses recently and no sick contacts. Patient's cotton converter is Dr. López. Patient uses an insulin pump as well as supplementary novolog if her sugars are high; yesterday evening she took 44u novolog in response to a BSG of 455. Her family changed her insulin pump two days ago because they believed it was malfunctioning. Patient has had similar hypoglycemic events prior to this week, but not in the past year. Patient's daughter reports that patient has a history of reduced PO intake due to depression, and that the family has experienced a number of losses recently. Patient denies feeling depressed or hopeless at the moment. She notes that she forgot to take her antihypertensives today, and also forgot to take them two days ago. Daughter reports patient has a history of uncontrolled HTN as well as going to the ED in response to high blood pressure readings taken with her home blood pressure cuff; but denies that patient was ever admitted for blood pressure control. Daughter reports patient no longer measures her BP at home. Code status was discussed with the patient after patient's daughter left for home. She is unsure if she has an advanced directive. Patient reports she would like to be resuscitated if her heart were to stop, including chest compressions; however she reports she would not want a breathing tube if her breathing were to stop. Principal Diagnosis klebsiella uti poa hypoglycemia hypertensive urgency Discharge Exam The patient appeared well Vital signs as documented. Lungs are clear to auscultation and appear unlabored Cardiac exam, Rhythm is regular.. No murmurs, rubs or gallops. Abdominal exam reveals normal bowel sounds, soft non tender, no masses Extremities are nonedematous and both pedal pulses are normal. Neurologic exam is alert and oriented, no focal loss of strength or sensation Skin is without bruises or rashes Psychologically is without concerns for anxiety or depression. Discharge Data Allergies Allergy/AdvReac Type Severity Reaction Status Date / Time No Known Allergies Allergy Verified 03/09/20 22:31 Consultations 03/09/20 20:27 ED Decision to Admit Stat 03/10/20 02:03 Consult Case Management - Discharge Planning Routine 03/11/20 10:54 Consult Lung Nodule Program Routine Ordered Studies 03/09/20 16:30 CT head/brain wo con Stat 03/09/20 18:26 CT abd pelvis wo con Urgent 03/10/20 02:17 US point of care ultrasound Routine 03/10/20 14:16 US gallbladder Urgent Hospital Course (1) Hypoglycemia: resolved. Pt states that she typically is on VGO 40 diabetic nurse educator gave advice on perhaps transitioning to lower delivery device such as the 20 or 30 vs scrapping this system all together, the patient freely admits to dietary indiscretion. she knows that she has to do better, also she has had issues getting lower doses in the past due to supply issues Pt agrees to using a tighter sliding scale Follows with Endocrinology as outpt, will recommend short term follow up (2) Acute kidney injury: Has improved but will follow as an outpt -continue to hold home torsemide, enalapril (3) Acute UTI (urinary tract infection): 2nd to Klebsiella pneumoniae, pansensitive cont IV rocephin for today and transitioned to cefdinir Suspect UTI contributing to patient feeling poorly this week which is now much improved (4) Gallstones: Due to her illness this week had RUQ u/s to rule out acute cholecystitis as the cause of her symptoms (nausea, feeling unwell, anorexia, etc). RUQ u/s with numerous gallstones but no signs of acute cholecystitis. LFTs wnl. Asymptiomatic, no intervention at this time (5) Hypertension, uncontrolled: BPs still remain quite high and has not been on usual home meds -restart home metoprolol 50mg po bid -cont Imdur 30mg po daily -continue amlodipine -continue to hold home ACEi due to DONNA (6) Urge and stress incontinence: noted, fu with PCP (7) Anemia: likely 2nd to CKD stage 3/4 Hgb 10.7, normocytic No gross bleeding -check Fe studies, B12, folate in AM and replace if needed follow CBC (8) Chronic kidney disease, stage III (moderate): CKD stage 3-4, with Acute kidney injury as above Cr was 2.3 in early January, but was 1.6-1.9 prior to that no obstruction seen on CT abd/pelvis here -Avoid nephrotoxins, continue to hold and not restart diuretics until Cr settles down to lower level -renally dose meds when appropriate Follows with Dr. Spangler of Nephrology (9) Diabetic nephropathy associated with type 2 diabetes mellitus: pharmacy glycemic management consult placed ideally should be on LASHAY but await to see where Creatinine settles may need to restart at low dose (10) Graves disease: Thyroid: Remote history of graves per record. TSH monitored now annually, Apr 2019 TSH 2.550 (0.300-4.500 uIu/ml). Also, history of multi nodular goiter. Large nodule biopsied in 2009, benign. Ultrasound 01/2016 stable, advised to repeat 2020. TSH this admission wnl Follows with Endocrinology (11) Dyslipidemia: cont statin (12) Depression: stable, continue Effexor Total Time Total Time Spent Total Time Spent (In Minutes): It required greater than 30 minutes to prepare this patient for discharge Discharge Plan Discharge Items Patient Disposition: Home - Home Health Services Reason For Visit: HYPOGLYCEMIA, HYPERTENSIVE EMERGENCY Discharge Diagnosis: klebsiella uti present on admission' low blood sugar elevated blood pressure Activity: Resume your previous activity Non-emergency contact: Primary Care Provider Call non-emergency contact if: you have any medication questions Follow-up/Referrals: David Lopez III, CRNP [Primary Care Provider] - 03/20/20 9:20 am Diet: Carb Consistent or DM2 Addtl Attending Provider Instructions: you need to give more attention to your diet in regard to the types of food you eat. the more the food is like its natural form the more healthy it will be for you as per our discussion you do not feel that the vgo40 is not the issue but more that you were not eating for a few days reliably plus prior to that you may have been snacking that caused your blood glucose to go higher that it should be, continue your vgo40 system and use sliging scale injectable insulin for glusose over 200, for every 20 over 200 on finger stick glucose check please give your self one additional unit you kidney function is not entirely back to your baseline, I would recommend keeping yourself hydrated and have you labs checked at your primary care office when you see them for a one week follow up Pending Studies at Discharge: No Stand-Alone Forms: [facility], Smoking Cessation Medications and DC Order Prescriptions: New cefdinir 300 mg capsule 300 mg PO BID 5 Days Qty: 10 RF: 0 Continued aspirin 325 mg tablet 650 mg PO DAILY PRN (Reason: Pain) RF: 0 Centrum Silver 400-250 mcg tablet,chewable 1 tab PO QAM RF: 0 polyethylene glycol 3350 17 gram/dose powder 17 gm PO DAILY PRN (Reason: Constipation) RF: 0 PreserVision AREDS [id number] capsule 1 cap PO BID RF: 0 venlafaxine 37.5 mg tablet 37.5 mg PO QAM RF: 0 venlafaxine 150 mg capsule,extended release 24hr 150 mg PO QAM RF: 0 ascorbic acid (vitamin C) 500 mg tablet 1,000 mg PO BID RF: 0 cholecalciferol (vitamin D3) 1,000 unit capsule 1,000 units PO BID RF: 0 metoprolol tartrate 50 mg tablet 50 mg PO BID Qty: 60 RF: 5 atorvastatin 40 mg tablet 40 mg PO QAM RF: 0 isosorbide mononitrate 30 mg tablet extended release 24 hr 30 mg PO QAM RF: 0 amlodipine 5 mg tablet 5 mg PO BID RF: 0 insulin aspart U-100 [Novolog U-100 Insulin aspart] 100 unit/mL solution See Rx Instructions .ROUTE .COMPLEX RF: 0 Calcium 600 with Vitamin D3 600 mg(1,500mg) -400 unit Tablet,Chewable 2 tab PO QAM RF: 0 Discontinued enalapril maleate 20 mg tablet 20 mg PO BID Qty: 180 RF: 1 torsemide 20 mg tablet 20 mg PO QAM RF: 0 Discharge Orders: Discharge Order (Routine); Ordered 03/13/20 Ordered By: Yosi Randall Admission Data Admit Date/Time: 03/09/20 23:41 Attending Provider: Yosi Randall Admit Provider: Harvey Clancy Primary Care Provider: David Lopez III Other Providers: Nimesh Demarco Other Interventions: Discharge Summary Assessment (RN) Last Done: 03/13/20 15:56 Coding Level of Care Code D/C Day Management >30 mins Diagnoses Hypoglycemia E16.2 Acute kidney injury N17.9 Acute UTI (urinary tract infection) N39.0 Gallstones K80.20 Hypertension, uncontrolled I10 Urge and stress incontinence N39.46 Anemia D64.9 Chronic kidney disease, stage III (moderate) N18.3 Diabetic nephropathy associated with type 2 diabetes mellitus E11.21 Graves disease E05.00 Dyslipidemia E78.5 Depression F32.9
== END 2020-03-13 16:58 | disposition home or self-care (01) ==
LOC: ED 15:03 → SUATTDRO 23:41 → INTOOBSV 23:41 → 2E 23:41 → 3E 03-11 13:58

== ENCOUNTER 2020-12-30 22:48 | Inpatient (IN) ==
[2020-12-30] MEDS ORDERED: NITROGLYCERIN 2% OINTMENT 30GM TUBE EXT ONE (23:15)
[2020-12-30 23:25] LABS: Basophils # (auto) 0.03 K/uL (0-0.2); Basophils % (auto) 0.3 %; Eosinophils # (auto) 0.17 K/uL (0-0.5); Eosinophils % (auto) 1.6 %; Hematocrit (blood only) 31.6 % (37-47); Hemoglobin 9.8 g/dL (12.0-16.0); Immature Granulocytes # (auto) 0.03 K/uL (0.00-0.02); Immature Granulocytes % (auto) 0.3 %; Lymphocytes # (auto) 1.52 K/uL (1.2-3.4); Lymphocytes % (auto) 14.6 %; Mean Corpuscular Hemoglobin 26.9 pg (25-34); Mean Corpuscular Volume 86.8 fL (80-100); Monocytes # (auto) 1.18 K/uL (0.11-0.59); Monocytes % (auto) 11.3 %; Neutrophils # (auto) 7.51 K/uL (1.4-6.5); Neutrophils % (auto) 71.9 %; Platelet Count 294 K/uL (130-400); RDW Coefficient of Variation 16.3 % (11.5-14.5); RDW Standard Deviation 50.7 fL (36.4-46.3); Red Blood Count 3.64 M/uL (4.2-5.4); White Blood Count 10.44 K/uL (4.8-10.8)
[2020-12-30 23:31] LABS: Alanine Aminotransferase 28 U/L (12-78); Aspartate Aminotransferase 22 U/L (15-37); BUN Creatinine Ratio 22.6 (10-20); Blood Urea Nitrogen 88 mg/dl (7-18); Calcium 9.8 mg/dl (8.5-10.1); Carbon Dioxide 27 mmol/L (21-32); Chloride 103 mmol/L (98-107); Est GFR (African American) 12.2 ml/min; Est GFR (Non-African American) 10.5 ml/min; Glucose 116 mg/dl (70-99); Potassium 4.3 mmol/L (3.5-5.1); Sodium 140 mmol/L (136-145)
[2020-12-30 23:36] LABS: Albumin Globulin Ratio 0.6 (0.9-2); Alkaline Phosphatase 111 U/L (45-117); Bilirubin,Total 0.4 mg/dl (0.2-1); Globulin 4.6 gm/dl (2.5-4.0); NT Pro B Type Natriuretic Pept 17393 pg/ml (0-1800); Total Protein 7.6 gm/dl (6.4-8.2); Troponin I < 0.015 ng/ml (0-0.045)
--- NOTE | 2020-12-30 23:55 | History & Physical Report ---
Date of Service December 30, 2020 Assessment & Plan (1) Acute exacerbation of CHF (congestive heart failure): Plan: 80 yo F hx HFrEF, IDDM2, ESRD, multinodular goiter, BL pleural effusions, HLD, HTN, admitted for acute congestive heart failure exacerbation. HFrEF exacerbation - lasix 40 mg IV x1 in ER, continue daily with BMP monitoring - marroquin, monitor I/O - dry weight ~206 lb? - EF 45-50% in october 2020, complicated by moderate aortic stenosis - torsemide recently increased to 40 mg daily without much improvement - cards consult -- follows with Dr. Hamm - cont amlodipine, isosorbide mononitrate, metoprolol BL Pleural effusions - chronic, follows with Dr. Ceja - pulm consult for possible thoracentesis - CXR showing BL pleural effusions worse compared to cxr on 12/28 ESRD - Cr 3.87, GFR ~10, approximately baseline - not on dialysis but has AV Fistula - nephro consult for worsening ESRD, possible need for dialysis CAD - statin IDDM2 - insulin glargine 27 units sq PM - SSI [usually takes 7u TID] Chronic Anemia - hg 9.8, baseline 10-11 - Q2D CBC DVt ppx: heparin sq bid FEn/GI: heart healthy, low sodium Code status: conditional code -- no intubation Dispo: med/tele (2) Hypoxemia: (3) Urinary Incontinence: (4) Ambulatory dysfunction: (5) Type 2 diabetes mellitus with insulin therapy: (6) Multinodular goiter (nontoxic): (7) ESRD (end stage renal disease): (8) Bilateral pleural effusion: (9) Moderate calcific aortic stenosis: (10) Graves disease: History of Present Illness Primary Care Provider: David Lopez, III, TRANSIT SPECIALIST 80 yo F with pmh HFrEF, aortic stenosis, DM2, ESRD, multinodular goiter, graves disease, HTN, brought to ER by daughter for worsening SOB. Recently seen by smokehouse worker Dr. Hamm on 12/27, at which time he increased her torsemide from 30 mg daily to 40 mg daily to help reduce peripheral edema and pleural effusions. Daughter states that Sonam sees Dr. Ceja for pulmonary care, and they have previously discussed doing thoracenteses to drain the effusions. She says the increase in torsemide did not improve her shortness of breath. She states she has a dry cough and isn't able to take a deep breath. No chest pain. She says she doens't have much of an appetite and has been that way for a while now. She eats a lot of tea and ritz crackers, and says she knows she's supposed to avoid salt but doesn't care to. Allergies Allergy/AdvReac Type Severity Reaction Status Date / Time codeine AdvReac Unknown DOES NOT Verified 12/31/20 00:[address] IT MAKES HER FEEL. Home Medications Medication Instructions Recorded Confirmed Type ascorbic acid (vitamin C) 500 mg 500 mg PO QAM tab 12/10/18 12/31/20 History tablet aspirin 325 mg tablet 650 mg PO DAILY PRN tab 12/10/18 12/31/20 History multivit with min-folic 1 tab PO QAM 12/10/18 12/31/20 History acid-lutein 400 mcg-250 mcg chewable tablet (Centrum Silver) polyethylene glycol 3350 17 17 gm PO DAILY PRN gm 12/10/18 12/31/20 History gram/dose oral powder venlafaxine 150 mg 150 mg PO QAM cap 12/10/18 12/31/20 History capsule,extended release 24 hr vitamins A,C,K-kfew-qbdhjt 14,320 1 cap PO BID cap 12/10/18 12/31/20 History unit-226 mg-200 unit capsule (PreserVision AREDS) calcium carbonate-vitamin D3 600 2 tab PO QAM 03/09/20 12/31/20 History mg(1,500 mg)-400 unit chewable tablet (Calcium 600 with Vitamin D3) insulin glargine 100 unit/mL (3 27 unit SUBCUT QPM ml 05/22/20 12/31/20 History mL) subcutaneous pen (Basaglar KwikPen U-100 Insulin) OneTouch Ultra Blue Test Strip #100 ea NS 08/10/20 12/27/20 Rx (blood sugar diagnostic) Incentive Spirometer #1 ea 10/24/20 12/27/20 Rx atorvastatin 80 mg tablet 80 mg PO QAM #90 tab 10/24/20 12/31/20 Rx metoprolol succinate 100 mg 150 mg PO QAM #90 tab 10/24/20 12/31/20 Rx tablet,extended release 24 hr pen needle, diabetic 32 gauge x #400 ea 10/24/20 12/27/20 Rx 5/32" (BD Ultra-Fine [place] Pen Needle) isosorbide mononitrate 120 mg 120 mg PO QAM #90 tab 10/25/20 12/31/20 Rx tablet,extended release 24 hr amlodipine 5 mg tablet 5 mg PO BID #180 tab 11/23/20 12/31/20 Rx Novolog Flexpen U-100 Insulin 100 30 unit SUBCUT DAILY 90 Days #30 12/04/20 12/31/20 Rx unit/mL (3 mL) subcutaneous ml NS (insulin aspart U-100) cholecalciferol (vitamin D3) 25 50 mcg PO BID cap 12/27/20 12/31/20 History mcg (1,000 unit) capsule torsemide 20 mg tablet 40 mg PO DAILY #90 tab 12/27/20 12/31/20 Rx venlafaxine 37.5 mg 37.5 mg PO QAM 12/31/20 12/31/20 History tablet,extended release 24 hr Past Med/Surg History Medical History (Updated 12/31/20 @ 18:11 by Stanislaw Farrar MD) Anemia Chronic, hgb's in the 10-11 range per chart view, remote hx blood transfusions Carotid artery disease Less than 50% ICA stenosis per 08/2016 carotid duplex 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 Chronic gastroesophageal reflux disease Chronic kidney disease Worsening creatinine now in the 3's under surveillance by nephrology ([facility]), plan for AVF/future dialysis Depression Diabetes IDDM Diabetic peripheral neuropathy associated with type 2 diabetes mellitus Dyslipidemia Gallstones Generalized osteoarthritis of multiple sites Graves disease Per records, TSH WNL 02/2020 labs H/O malignant neoplasm of uterine body Hiatal hernia Hypertension Irregular heart beat metoprolol for this per pt Kidney stones Macular degeneration Moderate calcific aortic stenosis Moderate (ANUJ 1.0cm2, MG 20.8mmhg) per 10/2020 echo Multinodular goiter (nontoxic) Multiple thyroid nodules Obesity Osteopenia Secondary hyperparathyroidism Sleep apnea No device Subclinical hyperthyroidism Type 2 diabetes mellitus with insulin therapy Surgical History Fistula H/O abdominoplasty H/O basal cell carcinoma excision H/O shoulder surgery Right History of appendectomy History of cataract surgery R/L History of colonoscopy History of esophagogastroduodenoscopy (EGD) History of tonsillectomy History of tooth extraction S/P complete hysterectomy Family History Father Lung cancer Diabetes Mother , in a home fire Hypertension Denies family history of Ovarian cancer Prostate cancer Myocardial infarction Breast cancer Colorectal cancer Social History Smoking Status: Former smoker Second Hand Exposure: No; Hx Alcohol Use: No Hx Substance Use: No Preferred Language: Setswana Communication Ability: Effective Visual Impairment: No Limitations Hearing Ability: Normal Human Resources Officer Required: No Beliefs That Will Affect Care: None marital status: Current Living Situation: Family current occupational status: retired Other Information That Helps Us Care for You: No Feels Safe at Home: Yes Safety Concerns Comment: unsteady at times Childhood Exposure to Second-Hand Smoke: Yes Dental Care, Regularly: No Physical Activity Frequency: Does not Exercise Seatbelt Use: always Sunscreen Use: No Assistive Devices: Oxygen - Continuous Review of Systems Constitutional: no fever, no chills, no sweats and no fatigue Eyes: no blind spots and no discharge Ear, Nose, Mouth, Throat: no hearing loss and no nasal congestion Respiratory: + cough, + dyspnea and + pain on inspiration; no sputum production Cardiovascular: + dyspnea, + dyspnea at rest, + dyspnea on exertion and + edema; no chest pain Gastrointestinal: no abdominal pain, no nausea, no vomiting, no constipation, no diarrhea/loose stools and no blood in stools Genitourinary: + urinary incontinence; no dysuria Musculoskeletal: no joint pain and no myalgia Neurologic: no tingling, no numbness and no headache(s) Endocrine: no fatigue Physical Exam Physical Exam: Constitutional: obese, in no apparent distress, sitting comfortably in bed. Eyes: EOMI, pupils equal and reactive bilaterally, no scleral icterus Cardiac: RRR, no murmurs, gallops or rubs. Normal S1, S2 Pulm: poor inspiratory effort, bibasilar crackles, breathing comfortably on 6L NC Abd: soft, nontender, distended, normal bowel sounds, no rebound or guarding Extremities: 2+ peripheral pulses, 3+ pitting edema to knees bilaterally Neuro: no focal deficits, moving all 4 limbs, A&Ox3 Results & Data Results & Data ([facility]) Vital Signs (Past 12 Hours) Vital Signs Temp Pulse Resp BP Pulse Ox 12/30/20 23:35 96 12/30/20 23:30 68 18 183/80 H 98 12/30/20 23:24 71 19 168/82 H 94 12/30/20 22:58 36.8 C 80 16 161/120 H 96 Laboratory Results Laboratory Results WBC 10.44 K/uL (4.8-10.8) 12/30/20 22:30 RBC 3.64 M/uL (4.2-5.4) L 12/30/20 22:30 Hgb 9.8 g/dL (12.0-16.0) L 12/30/20 22:30 Hct 31.6 % (37-47) L 12/30/20 22:30 MCV 86.8 fL (80-100) 12/30/20 22:30 MCH 26.9 pg (25-34) 12/30/20 22:30 MCHC 31.0 g/dL (32-36) L 12/30/20 22:30 RDW Std Deviation 50.7 fL (36.4-46.3) H 12/30/20 22:30 RDW Coeff of Chris 16.3 % (11.5-14.5) H 12/30/20 22:30 Plt Count 294 K/uL (130-400) 12/30/20 22:30 MPV 10.0 fL (7.4-10.4) 12/30/20 22:30 Immature Gran % (Auto) 0.3 % 12/30/20 22:30 Neut % (Auto) 71.9 % 12/30/20 22:30 Lymph % (Auto) 14.6 % 12/30/20 22:30 Smith % (Auto) 11.3 % 12/30/20 22:30 Eos % (Auto) 1.6 % 12/30/20 22:30 Baso % (Auto) 0.3 % 12/30/20 22:30 Neut # (Auto) 7.51 K/uL (1.4-6.5) H 12/30/20 22:30 Lymph # (Auto) 1.52 K/uL (1.2-3.4) 12/30/20 22:30 Smith # (Auto) 1.18 K/uL (0.11-0.59) H 12/30/20 22:30 Eos # (Auto) 0.17 K/uL (0-0.5) 12/30/20 22:30 Baso # (Auto) 0.03 K/uL (0-0.2) 12/30/20 22:30 Immature Gran # (Auto) 0.03 K/uL (0.00-0.02) H 12/30/20 22:30 ABG pH 7.34 (7.35-7.45) L 12/30/20 23:44 ABG pCO2 53 mmHg (35-46) H 12/30/20 23:44 ABG pO2 89 mmHg (80-95) 12/30/20 23:44 ABG HCO3 28 mmol/L (19-24) H 12/30/20 23:44 ABG O2 Saturation 96.5 % (90-95) H 12/30/20 23:44 ABG Base Excess 1.5 mEq/L (-9-1.8) 12/30/20 23:44 Lauro Test POS (Pos) 12/30/20 23:44 Barometric Pressure 730.2 mm/Hg 12/30/20 23:44 Oxygen Given 6 L 12/30/20 23:44 Sodium 140 mmol/L (136-145) 12/30/20 22:30 Potassium 4.3 mmol/L (3.5-5.1) 12/30/20 22:30 Chloride 103 mmol/L (98-107) 12/30/20 22:30 Carbon Dioxide 27 mmol/L (21-32) 12/30/20 22:30 Anion Gap 10.0 (3-11) 12/30/20 22:30 BUN 88 mg/dl (7-18) H 12/30/20 22:30 Creatinine 3.87 mg/dl (0.6-1.2) H 12/30/20 22:30 Est Cr Clr Drug Dosing Not Reportable 12/30/20 22:30 Est GFR ( Amer) 12.2 ml/min 12/30/20 22:30 Est GFR (Non-Af Amer) 10.5 ml/min 12/30/20 22:30 BUN/Creatinine Ratio 22.6 (10-20) H 12/30/20 22:30 Glucose 116 mg/dl (70-99) H 12/30/20 22:30 Calcium 9.8 mg/dl (8.5-10.1) 12/30/20 22:30 Total Bilirubin 0.4 mg/dl (0.2-1) 12/30/20 22:30 AST 22 U/L (15-37) 12/30/20 22:30 ALT 28 U/L (12-78) 12/30/20 22:30 Alkaline Phosphatase 111 U/L (45-117) 12/30/20 22:30 Troponin I < 0.015 ng/ml (0-0.045) 12/30/20 22:30 NT-Pro-B Natriuret Pep 98561 pg/ml (0-1800) H 12/30/20 22:30 Total Protein 7.6 gm/dl (6.4-8.2) 12/30/20 22:30 Albumin 3.0 gm/dl (3.4-5.0) L 12/30/20 22:30 Globulin 4.6 gm/dl (2.5-4.0) H 12/30/20 22:30 Albumin/Globulin Ratio 0.6 (0.9-2) L 12/30/20 22:30 Urine Color Yellow 12/31/20 00:52 Urine Appearance Clear (Clear) 12/31/20 00:52 Urine pH 5.5 (4.5-7.5) 12/31/20 00:52 Ur Specific [place] 1.016 (1.000-1.030) 12/31/20 00:52 Urine Protein 3+ (Negative) H 12/31/20 00:52 Urine Glucose (UA) Negative (Negative) 12/31/20 00:52 Urine Ketones Negative (Negative) 12/31/20 00:52 Urine Blood Negative (Negative) 12/31/20 00:52 Urine Nitrite Negative (Negative) 12/31/20 00:52 Urine Bilirubin Negative (Negative) 12/31/20 00:52 Urine Urobilinogen Negative (Negative) 12/31/20 00:52 Ur Leukocyte Esterase Negative (Negative) 12/31/20 00:52 COVID-19 Eval Order Cov[facility]19 at [facility] 12/30/20 23:28 SARS-CoV-2 (PCR) NEGATIVE (Negative) 12/30/20 23:28 Supervising Physician Co-Signing Physician Notes Attending addendum: I have physically seen this patient, have supervised the medical residents activities, and agree with the H&P unless as otherwise noted. Assessment and Plan: Acute on chronic HFrEF/CAD/hypertension/cardiomyopathy- The patient will be admitted to telemetry for serial cardiac enzymes, serial EKG's, cardiac rhythm monitoring and a 2-D echocardiogram with Dopplers. Given Lasix 40 mg IV in ED. Lasix 40 mg IV every morning Serial BMP and magnesium levels Hold oral torsemide Continue amlodipine, isosorbide mononitrate and metoprolol with hold parameters Consult cardiology Chronic kidney disease/presence of AV fistula and used- Creatinine 3.7 upon admission with GFR around 10. Follow labs serially Consult nephrology IDDM- Continue glargine 27 units subcu every evening Place on Accu-Cheks before meals and at bedtime with NovoLog coverage per scale remaining orders and notations as noted Resident Activity Tracking Resident Involvement: Resident Care Provided Care Provided: Adult Hospital Medicine (1) Acute exacerbation of CHF (congestive heart failure) Heart failure type: unspecified Qualified Code(s): I50.9 - Heart failure, unspecified
[2020-12-30 23:59] LABS: Base Excess ABG 1.5 mEq/L (-9-1.8); HCO3 ABG 28 mmol/L (19-24); Oxygen Saturation ABG 96.5 % (90-95); PCO2 ABG 53 mmHg (35-46); PO2 ABG 89 mmHg (80-95); pH ABG 7.34 (7.35-7.45)
[2020-12-31] LABS: Allen Test POS (Pos)
[2020-12-31] MEDS ORDERED: FUROSEMIDE 40 MG/4 ML VIAL IV STA (00:16)
--- NOTE | 2020-12-31 00:45 | Emergency Department Note ---
History of Present Illness General Chief complaint: Respiratory Problems Stated complaint: BREATHING DIFFICULTY Time Seen by Provider: 12/30/20 23:03 History of Present Illness This 80-year-old presents to the ER complaining of shortness of breath who is hypoxic on room air Location: Chest Quality: Hard to breathe Severity: Moderate Duration: Yesterday Timing: Yesterday Context: Symptoms got worse and patient came in Modifying factors: better with oxygen; worse with activity Patient states she feels like she is back in heart failure. Patient denies fever, chills, flulike illness, abdominal pain. She states she feels like she is retaining fluid. Home Medications Medication Instructions Recorded Confirmed Type ascorbic acid (vitamin C) 500 mg 500 mg PO QAM tab 12/10/18 12/31/20 History tablet aspirin 325 mg tablet 650 mg PO DAILY PRN tab 12/10/18 12/31/20 History multivit with min-folic 1 tab PO QAM 12/10/18 12/31/20 History acid-lutein 400 mcg-250 mcg chewable tablet (Centrum Silver) polyethylene glycol 3350 17 17 gm PO DAILY PRN gm 12/10/18 12/31/20 History gram/dose oral powder venlafaxine 150 mg 150 mg PO QAM cap 12/10/18 12/31/20 History capsule,extended release 24 hr vitamins A,C,W-shgu-svtqst 14,320 1 cap PO BID cap 12/10/18 12/31/20 History unit-226 mg-200 unit capsule (PreserVision AREDS) calcium carbonate-vitamin D3 600 2 tab PO QAM 03/09/20 12/31/20 History mg(1,500 mg)-400 unit chewable tablet (Calcium 600 with Vitamin D3) insulin glargine 100 unit/mL (3 27 unit SUBCUT QPM ml 05/22/20 12/31/20 History mL) subcutaneous pen (Basaglar KwikPen U-100 Insulin) OneTouch Ultra Blue Test Strip #100 ea NS 08/10/20 12/27/20 Rx (blood sugar diagnostic) Incentive Spirometer #1 ea 10/24/20 12/27/20 Rx atorvastatin 80 mg tablet 80 mg PO QAM #90 tab 10/24/20 12/31/20 Rx metoprolol succinate 100 mg 150 mg PO QAM #90 tab 10/24/20 12/31/20 Rx tablet,extended release 24 hr pen needle, diabetic 32 gauge x #400 ea 10/24/20 12/27/20 Rx 5/32" (BD Ultra-Fine [place] Pen Needle) isosorbide mononitrate 120 mg 120 mg PO QAM #90 tab 10/25/20 12/31/20 Rx tablet,extended release 24 hr amlodipine 5 mg tablet 5 mg PO BID #180 tab 11/23/20 12/31/20 Rx Novolog Flexpen U-100 Insulin 100 30 unit SUBCUT DAILY 90 Days #30 12/04/20 12/31/20 Rx unit/mL (3 mL) subcutaneous ml NS (insulin aspart U-100) cholecalciferol (vitamin D3) 25 50 mcg PO BID cap 12/27/20 12/31/20 History mcg (1,000 unit) capsule torsemide 20 mg tablet 40 mg PO DAILY #90 tab 12/27/20 12/31/20 Rx venlafaxine 37.5 mg 37.5 mg PO QAM 12/31/20 12/31/20 History tablet,extended release 24 hr Allergies Allergy/AdvReac Type Severity Reaction Status Date / Time codeine AdvReac Unknown DOES NOT Verified 12/31/20 00:14 LIKE THE WAY IT MAKES HER FEEL. Past Med/Surg History Medical History Anemia Chronic, hgb's in the 10-11 range per chart view, remote hx blood transfusions Carotid artery disease Less than 50% ICA stenosis per 08/2016 carotid duplex 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 Chronic gastroesophageal reflux disease Chronic kidney disease Worsening creatinine now in the 3's under surveillance by nephrology ([facility]), plan for AVF/future dialysis Depression Diabetes IDDM Diabetic peripheral neuropathy associated with type 2 diabetes mellitus Dyslipidemia Gallstones Generalized osteoarthritis of multiple sites Graves disease Per records, TSH WNL 02/2020 labs H/O malignant neoplasm of uterine body Hiatal hernia Hypertension Irregular heart beat metoprolol for this per pt Kidney stones Macular degeneration Moderate calcific aortic stenosis Moderate (ANUJ 1.0cm2, MG 20.8mmhg) per 10/2020 echo Multinodular goiter (nontoxic) Multiple thyroid nodules Obesity Osteopenia Secondary hyperparathyroidism Sleep apnea No device Subclinical hyperthyroidism Type 2 diabetes mellitus with insulin therapy Type 2 diabetes mellitus, controlled Surgical History Fistula H/O abdominoplasty H/O basal cell carcinoma excision H/O shoulder surgery Right History of appendectomy History of cataract surgery R/L History of colonoscopy History of esophagogastroduodenoscopy (EGD) History of tonsillectomy History of tooth extraction S/P complete hysterectomy Family History Father Lung cancer Diabetes Mother , in a home fire Hypertension Denies family history of Ovarian cancer Prostate cancer Myocardial infarction Breast cancer Colorectal cancer Social History Smoking Status: Former smoker Second Hand Exposure: No; Hx Alcohol Use: No Hx Substance Use: No Preferred Language: Tamazight Communication Ability: Effective Visual Impairment: No Limitations Hearing Ability: Normal Pipe Smoker Machine Operator Required: No Beliefs That Will Affect Care: None marital status: Current Living Situation: Family current occupational status: retired Feels Safe at Home: Yes Safety Concerns Comment: unsteady at times Childhood Exposure to Second-Hand Smoke: Yes Dental Care, Regularly: No Physical Activity Frequency: Does not Exercise Seatbelt Use: always Sunscreen Use: No Assistive Devices: Cane and Glasses Review of Systems A total of 10 systems reviewed and were otherwise negative Physical Exam Vital Signs Vital Signs - 24 hr 12/30/20 22:58 12/30/20 23:24 12/30/20 23:30 Temperature 36.8 C Temperature Source Oral Pulse Rate 80 71 68 Respiratory Rate 16 19 18 Respiratory Effort / Characteristics Labored Respiratory Depth Normal Blood Pressure 161/120 H 168/82 H 183/80 H Blood Pressure Mean 133 110 114 Blood Pressure Position Lying Pulse Oximetry 96 94 98 Oxygen Delivery Method Nasal Cannula Nasal Cannula Nasal Cannula Oxygen Flow Rate 6 6 6 Sepsis Recent Fever Within 48 Hours No Sepsis New/Unexplained Change in Mental Status N/A Sepsis Action Taken by Nursing No Action Required 12/30/20 23:35 12/31/20 00:01 Temperature Temperature Source Pulse Rate 70 Respiratory Rate 22 Respiratory Effort / Characteristics Respiratory Depth Blood Pressure 169/85 H Blood Pressure Mean 113 Blood Pressure Position Pulse Oximetry 96 96 Oxygen Delivery Method Nasal Cannula Nasal Cannula Oxygen Flow Rate 6 6 Sepsis Recent Fever Within 48 Hours Sepsis New/Unexplained Change in Mental Status Sepsis Action Taken by Nursing VITALS: Vitals are noted on the nurse's note and reviewed by myself. Vital signs hypoxic on room air. GENERAL: Elderly female working to breathe SKIN: The skin was without rashes, erythema, edema, or bruising. There is no tenting of the skin. Capillary reflex less than 2 seconds. HEAD: Normocephalic atraumatic. EARS: External auditory canals clear, tympanic membranes pearly mcgrath without erythema or effusion bilaterally. EYES: Pupils equal round and reactive to light and accommodation. Conjunctivae without injection, sclerae without icterus. Extraocular movements intact. NOSE: Patent, turbinates without inflammation or discharge. MOUTH: Mucous membranes mildly dry. Pharynx without erythema or exudate. Uvula midline. Airway patent. Tongue does not deviate. NECK: Supple without nuchal rigidity. No lymphadenopathy. No thyromegaly. Cervical spine is nontender. No JVD. HEART: Regular rate and rhythm LUNGS: Bibasilar rales No retractions or accessory muscle use. ABDOMEN: Positive bowel sounds x 4. Normal tympanic percussion. Soft, nontender, without masses or organomegaly. Reyna sign negative. No guarding or rebound tenderness. No CVA tenderness MUSCULOSKELETAL: No muscle atrophy, erythema, noted. +2 pitting edema up to the mid tib-fib bilaterally NEURO: Patient was alert and oriented to person place and time. Normal sensation to light and sharp touch. No focal neurological deficits. Course Administered Medications Discontinued Medications Nitroglycerin (Nitroglycerin 2% Ointment 30gm Tube) 0.5 inch EXT NOW ONE Stop: 12/30/20 23:16 Last Admin: 12/30/20 23:26 Dose: 0.5 inch Documented by: [id number] Medical Decision Making Medical Records Attestation: I reviewed the patient's medical records. Home Medications Current Medication List: was personally reviewed by me Laboratory Data Attestation: I reviewed the patient's lab results. Result diagrams: 12/30/20 22:30 12/30/20 22:30 Lab Results 12/30/20 12/30/20 12/30/20 Range/Units 22:30 22:30 23:28 WBC 10.44 (4.8-10.8) K/uL RBC 3.64 L (4.2-5.4) M/uL Hgb 9.8 L (12.0-16.0) g/dL Hct 31.6 L (37-47) % MCV 86.8 (80-100) fL MCH 26.9 (25-34) pg MCHC 31.0 L (32-36) g/dL RDW Std Deviation 50.7 H (36.4-46.3) fL RDW Coeff of Chris 16.3 H (11.5-14.5) % Plt Count 294 (130-400) K/uL MPV 10.0 (7.4-10.4) fL Immature Gran % (Auto) 0.3 % Neut % (Auto) 71.9 % Lymph % (Auto) 14.6 % [place] % (Auto) 11.3 % Eos % (Auto) 1.6 % Baso % (Auto) 0.3 % Neut # (Auto) 7.51 H (1.4-6.5) K/uL Lymph # (Auto) 1.52 (1.2-3.4) K/uL [place] # (Auto) 1.18 H (0.11-0.59) K/uL Eos # (Auto) 0.17 (0-0.5) K/uL Baso # (Auto) 0.03 (0-0.2) K/uL Immature Gran # (Auto) 0.03 H (0.00-0.02) K/uL ABG pH (7.35-7.45) ABG pCO2 (35-46) mmHg ABG pO2 (80-95) mmHg ABG HCO3 (19-24) mmol/L ABG O2 Saturation (90-95) % ABG Base Excess (-9-1.8) mEq/L Lauro Test (Pos) Barometric Pressure mm/Hg Oxygen Given Sodium 140 (136-145) mmol/L Potassium 4.3 (3.5-5.1) mmol/L Chloride 103 (98-107) mmol/L Carbon Dioxide 27 (21-32) mmol/L Anion Gap 10.0 (3-11) BUN 88 H (7-18) mg/dl Creatinine 3.87 H (0.6-1.2) mg/dl Est Cr Clr Drug Dosing Not Reportable Est GFR ( Amer) 12.2 ml/min Est GFR (Non-Af Amer) 10.5 ml/min BUN/Creatinine Ratio 22.6 H (10-20) Glucose 116 H (70-99) mg/dl Calcium 9.8 (8.5-10.1) mg/dl Total Bilirubin 0.4 (0.2-1) mg/dl AST 22 (15-37) U/L ALT 28 (12-78) U/L Alkaline Phosphatase 111 (45-117) U/L Troponin I < 0.015 (0-0.045) ng/ml NT-Pro-B Natriuret Pep 40020 H (0-1800) pg/ml Total Protein 7.6 (6.4-8.2) gm/dl Albumin 3.0 L (3.4-5.0) gm/dl Globulin 4.6 H (2.5-4.0) gm/dl Albumin/Globulin Ratio 0.6 L (0.9-2) COVID-19 Eval Order Covid19 at [facility] 12/30/20 Range/Units 23:44 WBC (4.8-10.8) K/uL RBC (4.2-5.4) M/uL Hgb (12.0-16.0) g/dL Hct (37-47) % MCV (80-100) fL MCH (25-34) pg MCHC (32-36) g/dL RDW Std Deviation (36.4-46.3) fL RDW Coeff of Chris (11.5-14.5) % Plt Count (130-400) K/uL MPV (7.4-10.4) fL Immature Gran % (Auto) % Neut % (Auto) % Lymph % (Auto) % [place] % (Auto) % Eos % (Auto) % Baso % (Auto) % Neut # (Auto) (1.4-6.5) K/uL Lymph # (Auto) (1.2-3.4) K/uL [place] # (Auto) (0.11-0.59) K/uL Eos # (Auto) (0-0.5) K/uL Baso # (Auto) (0-0.2) K/uL Immature Gran # (Auto) (0.00-0.02) K/uL ABG pH 7.34 L (7.35-7.45) ABG pCO2 53 H (35-46) mmHg ABG pO2 89 (80-95) mmHg ABG HCO3 28 H (19-24) mmol/L ABG O2 Saturation 96.5 H (90-95) % ABG Base Excess 1.5 (-9-1.8) mEq/L Lauro Test POS (Pos) Barometric Pressure 730.2 mm/Hg Oxygen Given 6 L Sodium (136-145) mmol/L Potassium (3.5-5.1) mmol/L Chloride (98-107) mmol/L Carbon Dioxide (21-32) mmol/L Anion Gap (3-11) BUN (7-18) mg/dl Creatinine (0.6-1.2) mg/dl Est Cr Clr Drug Dosing Est GFR ( Amer) ml/min Est GFR (Non-Af Amer) ml/min BUN/Creatinine Ratio (10-20) Glucose (70-99) mg/dl Calcium (8.5-10.1) mg/dl Total Bilirubin (0.2-1) mg/dl AST (15-37) U/L ALT (12-78) U/L Alkaline Phosphatase (45-117) U/L Troponin I (0-0.045) ng/ml NT-Pro-B Natriuret Pep (0-1800) pg/ml Total Protein (6.4-8.2) gm/dl Albumin (3.4-5.0) gm/dl Globulin (2.5-4.0) gm/dl Albumin/Globulin Ratio (0.9-2) COVID-19 Eval Order Imaging Data Attestation: I personally reviewed and interpreted this imaging study as follows: MDM Narrative Prior records/ancillary studies reviewed. Triage Nursing notes reviewed. Additional history obtained from EMS. The patient's history was concerning for respiratory difficulties. Differential diagnosis: Etiologies such as infections, reactive airway disease, pneumonia, pn eumothorax, COPD, CHF, cardiac ischemia, pulmonary embolism, musculoskeletal, gastrointestinal, as well as others were entertained. Physical examination: As above. ER treatment provided: An order was placed for continuous cardiac monitoring. The monitor shows a rate of 60-100 with a sinus rhythm. Nitropaste On reassessment the patient felt better. Diagnostic interpretation by me: The electrocardiogram was poor baseline, normal sinus, incomplete right bundle, no acute ST-T wave changes, rate of 69. Impression normal sinus rhythm with incomplete right bundle poor baseline interpreted by myself EKG ordered for dyspnea The labs revealed elevated BNP. Negative troponin. Negative troponin Imaging studies: Chest x-ray pulmonary edema per my interpretation. Consultation: A consultation was placed with the hospitalist. The case was discussed and diagnostics were reviewed. The patient was evaluated in the ER for further treatment. This appears to be consistent with congestive heart failure. Patient was hypoxic. She was given Nitropaste. She was placed on oxygen. She is feeling better. Medicine was consulted. She will be evaluated for admission. By the evaluation outlined above emergent etiologies such as cardiac ischemia, pulmonary embolism, reactive airway disease, pneumonia, pneumothorax, musculoskeletal, serious bacterial infections, as well as others were deemed relatively unlikely. The pt informed about the findings as listed above. All questions were answered and pleased with the treatment. The chart was completed utilizing Kl[employer] Speech voice recognition software. Grammatical errors, random word insertions, pronoun errors, and incomplete sentences are an occassional consequence of this system due to software limitations, ambient noise, and hardware issues. Any formal questions or concerns about the content, text, or information contained within the body of this dictation should be directly addressed to the physician lead recreation assistant for clarification. Impression & Plan Acute exacerbation of CHF (congestive heart failure), Hypoxemia Discharge Plan Visit Data Chief Complaint: Respiratory Problems Stated Complaint: BREATHING DIFFICULTY ED Provider: Payton [place] ED Midlevel Provider: Siri Coyle Discharge Problem: Acute exacerbation of CHF (congestive heart failure), Hypoxemia Patient Disposition: Admitted As Inpatient Condition: Fair Forms Stand Alone Forms: My [facility] Mobile [employer]ie Prescriptions Prescriptions: No Action aspirin 325 mg tablet 650 mg PO DAILY PRN (Reason: Pain) RF: 0 Centrum Silver 400-250 mcg tablet,chewable 1 tab PO QAM RF: 0 polyethylene glycol 3350 17 gram/dose powder 17 gm PO DAILY PRN (Reason: Constipation) RF: 0 PreserVision AREDS 14,320-226-200 [id number]-xu-acfd capsule 1 cap PO BID RF: 0 venlafaxine 150 mg capsule,extended release 24hr 150 mg PO QAM RF: 0 ascorbic acid (vitamin C) 500 mg tablet 500 mg PO QAM RF: 0 (DME) VrvanaTouch Ultra Blue Test Strip Strip See Rx Instructions .ROUTE .MEDSUPPLY Qty: 100 RF: 3 (DME) pen needle, diabetic [BD Ultra-Fine [place] Pen Needle] 32 gauge x 5/32" needle See Rx Instructions .ROUTE .MEDSUPPLY Qty: 400 RF: 3 metoprolol succinate 100 mg tablet extended release 24 hr 150 mg PO QAM Qty: 90 RF: 3 atorvastatin 80 mg tablet 80 mg PO QAM Qty: 90 RF: 3 isosorbide mononitrate 120 mg tablet extended release 24 hr 120 mg PO QAM Qty: 90 RF: 3 amlodipine 5 mg tablet 5 mg PO BID Qty: 180 RF: 3 insulin aspart U-100 [Novolog Flexpen U-100 Insulin] 100 unit/mL (3 mL) insulin pen 30 unit subcut DAILY 90 Days Qty: 30 RF: 1 torsemide 20 mg tablet 40 mg PO DAILY Qty: 90 RF: 3 (DME) Incentive Spirometer Misc See Rx Instructions .MEDSUPPLY Qty: 1 RF: 0 cholecalciferol (vitamin D3) 25 mcg (1,000 unit) capsule 50 mcg PO BID RF: 0 Basaglar KwikPen U-100 Insulin 100 unit/mL (3 mL) insulin pen 27 unit subcut QPM RF: 0 Calcium 600 with Vitamin D3 600 mg(1,500mg) -400 unit Tablet,Chewable 2 tab PO QAM RF: 0 venlafaxine 37.5 mg tablet extended release 24hr 37.5 mg PO QAM RF: 0 Referrals Referrals: David Lopez III, CRNP [Primary Care Provider] -
--- NOTE | 2020-12-31 00:51 | Emergency Department Note ---
ED Visit Note Patient seen and evaluated in conjunction with physician assistant professor of mathematics, Nirali Coyle. Please refer to her note for additional details. Patient denies prior similar events. Patient does feel better with oxygen in place. Patient is aware of plan for additional inpatient evaluation and management at this time. Vital signs stable. . : Acute exacerbation of CHF (congestive heart failure) Qualifiers: Heart failure type: unspecified Qualified Code(s): I50.9 - Heart failure, unspecified
[2020-12-31 01:06] LABS: Appearance Urine Clear (Clear); Bacteria Urine Automated Negative (Negative); Bilirubin Urine Negative (Negative); Blood Urine Negative (Negative); Color Urine Yellow; Epithelial Cell Urine Auto >30 /lpf (0-5); Glucose Urine UA Negative (Negative); Ketones Urine Negative (Negative); Leukocyte Esterase Urine Negative (Negative); Nitrite Urine Negative (Negative); Protein Urine 3+ (Negative); Specific Gravity Urine 1.016 (1.000-1.030); Urobilinogen Urine Negative (Negative); pH Urine 5.5 (4.5-7.5)
[2020-12-31 01:30] LABS: Renal Epithelial Cells Urine 0-5 /lpf (0-5)
[2020-12-31] MEDS ORDERED: DEXTROSE 50% 50 ML SYRINGE IV PRN (02:13)
[2020-12-31] MEDS ORDERED: MoRPHine SULFATE 2 MG/ML CARP IV PRN (02:13)
[2020-12-31] MEDS ORDERED: ONDANSETRON INJ 2 MG/ML 2 ML VIAL IV PRN (02:13)
[2020-12-31] MEDS ORDERED: GLUCOSE 40% GEL 15 GM TUBE PO PRN (02:13)
[2020-12-31] MEDS ORDERED: GLUCOSE 10 TABS/TUBE PO PRN (02:13)
[2020-12-31] MEDS ORDERED: NITROGLYCERIN SL 0.4 MG/TAB TAB SL PRN (02:13)
[2020-12-31] MEDS ORDERED: ACETAMINOPHEN 325 MG TAB PO PRN (02:13)
[2020-12-31] MEDS ORDERED: GLUCAGON FOR INJ 1 MG VIAL SQ PRN (02:13)
[2020-12-31 06:30] LABS: Hemoglobin 9.2 g/dL (12.0-16.0); Mean Corpuscular Hemoglobin 26.9 pg (25-34); Mean Corpuscular Hgb Conc 30.7 g/dL (32-36); Mean Corpuscular Volume 87.7 fL (80-100); Mean Platelet Volume 9.1 fL (7.4-10.4); Platelet Count 238 K/uL (130-400); RDW Coefficient of Variation 16.2 % (11.5-14.5); Red Blood Count 3.42 M/uL (4.2-5.4); White Blood Count 8.65 K/uL (4.8-10.8)
--- NOTE | 2020-12-31 06:56 | Hospitalist Progress Note ---
Date of Service December 31, 2020 Assessment & Plan (1) Acute exacerbation of CHF (congestive heart failure): Plan: 80 yo F hx HFrEF, IDDM2, ESRD, multinodular goiter, BL pleural effusions, HLD, HTN, admitted for acute congestive heart failure exacerbation. Hx consistent w/ dietary indiscretion. HFrEF exacerbation - bnp [id number] - marroquin, monitor I/O - dry weight ~206 lb? - EF 45-50% in october 2020, complicated by moderate aortic stenosis. moderate MR. mild LVH - torsemide recently increased to 40 mg daily without much improvement - cards consult -- follows with Dr. Hamm. recommended fluid restriction - nephro consult. recommended diuresis. Lasix 40 mg IV this AM, Bumex 4mg IV this PM, w/ Bumex drip if needed. - 450mL UOP since admission. not oliguric, but UOP low. 150mL from 7am-7pm - cont amlodipine, isosorbide mononitrate - follow BMP Hypertension - hold home metoprolol if HR <65. if HR>65, will resume on half dose - consider PO hydralazine for BP control this admission Bradycardia - 50s most of the day 12/31 - may be 2/2 home metoprolol XL 150 PO qAM - see above - repeat ecg if bradycardia persists BL Pleural effusions - chronic, follows with Dr. Ceja - pulm consult for possible thoracentesis. will consider in 1-2 days if still indicated after diuresis - CXR showing BL pleural effusions worse compared to cxr on 12/28 - repeat cxr in AM Respiratory acidosis - may be 2/2 hypervolemia, chf exac - abg 7.34/53/89/28 - no hypoxia, may have been on supp O2 - continue diuresis ESRD - Cr 3.87, GFR ~10, approximately baseline - not on dialysis but has AV Fistula - nephro consult for worsening ESRD, possible need for dialysis CAD - statin IDDM2 - home regimen insulin basaglar 27 units sq PM - SSI [usually takes 7u TID] - hypoglycemic to 63 AM of 12/31. may be 2/2 decreased PO intake overnight during initial admission - decreasing lantus from 27u to 20u and will reassess in AM - check BSG ACHS Chronic Anemia - hg 9.8, baseline 10-11 - follow CBC DVt ppx: heparin sq bid FEn/GI: heart healthy, low sodium Code status: conditional code -- no intubation Dispo: med/tele (2) Hypoxemia: (3) Urinary Incontinence: (4) Ambulatory dysfunction: (5) Type 2 diabetes mellitus with insulin therapy: (6) Multinodular goiter (nontoxic): (7) ESRD (end stage renal disease): (8) Bilateral pleural effusion: (9) Moderate calcific aortic stenosis: (10) Graves disease: (11) Respiratory acidosis: (12) Bradycardia: Admission and Anticipated Discharge Date Admission Date: December 31, 2020 Supervising Physician Co-Signing Physician Notes I personally examined the patient and verified all tinajero points of history and exam, discussed case, and agree with decision making with Dr Farrar. No HPI review of systems obtainableshe is sleeping soundly each time in the room. Does not even really wake up to physical exam. Discussed with nursingnot really making much urine. Vitals noted, in general she is sitting up in bed sleeping but does not appear in distress. HEENT normocephalic atraumatic. Cardio is distant. Lungs show diffuse rales but no accessory muscle use good effort. No focal neuro deficits. HFrEF/severe CKDESRD/pulmonary edema and effusionsongoing attempts at diuresis. Fortunately while she is somewhat hypoxic she is relatively stable and does not show urgent need for dialysis. Unfortunately she is not showing a lot of improvement with fairly aggressive diuresis, and I wonder if this will not progress quickly to where she does need dialysis. Continue to attempt to diurese, continue supportive care. Does appear that she will need education on the critical role of lifestyle in maintaining fluid balance, but given her sleepiness I was unable to do this today. Otherwise as above. Subjective Not on home O2. She feels tired. Not SOB at the moment. Dyspnea x 2 months, progressive. 15 lb weight gain in 2 months. Currently feels ok. She doesn't add salt to her diet, but does not specifically avoid salty foods. She states she does not drink enough fluid at home. +orthopnea. Other ROS neg. Review of Systems Review of Systems: All systems reviewed & are unremarkable except as noted in HPI & below Physical Exam Physical Exam: General: Grossly A&O. NAD. Cooperative. HEENT: Atraumatic, normocephalic. EOMI Pulm: Mild accessory muscle use. Shallow breaths, worse at R lower. Fine crackles L lower base. Cardiac: RRR, -mrg. 2+ BLE to knee. Abdominal: Nontender, soft. Results & Data Results & Data ([facility]) Vital Signs (Past 12 Hours) Vital Signs Temp Pulse Pulse Pulse Resp BP BP 12/31/20 04:00 36.6 C 68 18 169/78 H 12/31/20 03:22 36.5 C 73 19 174/80 H 12/31/20 02:00 69 12/31/20 00:30 66 22 174/79 H 12/31/20 00:01 70 22 169/85 H 12/30/20 23:35 12/30/20 23:30 68 18 183/80 H 12/30/20 23:24 71 19 168/82 H 12/30/20 22:58 36.8 C 80 16 161/120 H Pulse Ox 12/31/20 04:00 96 12/31/20 03:22 93 12/31/20 02:00 12/31/20 00:30 96 12/31/20 00:01 96 12/30/20 23:35 96 12/30/20 23:30 98 12/30/20 23:24 94 12/30/20 22:58 96 Laboratory Results 12/31/20 06:05 12/31/20 06:05 Diagnostic Findings Chest X-Ray 12/30/20 23:13 IMPRESSION: Progression of pulmonary edema, moderate bilateral pleural effusions and associated bibasilar opacities Resident Activity Tracking Resident Involvement: Resident Care Provided Care Provided: Adult Hospital Medicine (1) Acute exacerbation of CHF (congestive heart failure) Heart failure type: unspecified Qualified Code(s): I50.9 - Heart failure, unspecified
[2020-12-31 06:58] LABS: BUN Creatinine Ratio 23.7 (10-20); Calcium 9.1 mg/dl (8.5-10.1); Creatinine Clr Calc Pharmacy 14.3 ml/min; Est GFR (African American) 12.4 ml/min; Est GFR (Non-African American) 10.7 ml/min; Potassium 4.5 mmol/L (3.5-5.1)
[2020-12-31] MEDS: VENLAFAXINE HCL XR 150 MG CAPXR PO SCH (07:50)
[2020-12-31] MEDS: VENLAFAXINE HCL XR 37.5 MG CAPXR PO SCH (07:51)
[2020-12-31] MEDS: ATORVASTATIN 40 MG TAB PO SCH (07:52)
[2020-12-31] MEDS: ISOSORBIDE MONO EXTENDED REL 60 MG TABCR PO SCH (07:52)
[2020-12-31] MEDS: amLODIPine BESYLATE 5 MG TAB PO SCH ×2 (07:52→20:12)
--- NOTE | 2020-12-31 08:31 | Cardiology Progress Note ---
Date of Service December 31, 2020 Assessment & Plan (1) Acute exacerbation of CHF (congestive heart failure): (2) CKD (chronic kidney disease): (3) Cardiomyopathy: (4) Moderate calcific aortic stenosis: Plan: 1. Congestive heart failure: I believe her congestive heart failure is due to a combination of excessive fluid intake (although I cannot be sure that but she tries to force fluids) and chronic kidney disease. There is no evidence that this is some other type of cardiac abnormality has occurred although a contribution of her mild cardiomyopathy is possible but I doubt that is the primary cause. I am going to add a fluid restriction to her diet although it does not look like she is drinking a lot of fluid here. 2. Chronic kidney disease: She has significant kidney disease, I do not know if she can be managed by diuretics or not, perhaps with a fluid restriction she could be but I will leave that up to nephrology. 3. Cardiomyopathy: She has a mild cardiomyopathy, I doubt that has much to do with her presentation but it may be contributory to her fluid management. 4. Aortic stenosis: She has aortic stenosis which was recently evaluated, again that is not likely to be a major cause of her presentation although it could also contribute somewhat. Admission and Anticipated Discharge Date Admission Date: December 31, 2020 Subjective This is a 80-year-old woman who has a history of severe chronic kidney disease and congestive heart failure. She also has a mild cardiomyopathy and aortic stenosis. She is followed by Dr. Hamm in the office, who recently saw her on December 27, 2020. At that time she was observed to be in congestive heart failure and her diuretics were increased. In anticipation of hemodialysis and AV fistula was created on November 08, 2020. Her most recent echocardiogram on October 23, 2020 shows a left ventricular ejection fraction 45 to 50% with mild left ventricular hypertrophy, moderate mitral regurgitation and moderate aortic stenosis with a valve area calculated at [address] scan had been done on October 20, 2020 showing bilateral pleural effusions, there is improvement by November 08, 2020. She presented to the emergency room on December 30, 2020 with shortness of breath. Emergency room evaluation included a chest x-ray which showed worsening of her pleural effusions, her creatinine was approaching 4 which is similar to her historical measurements. Her weight was somewhat elevated, 96.4 kg and it had been running around 92.3 kg when she was diuresed in October 2020. Her electrocard iogram on arrival showed sinus rhythm at a rate of 71 bpm. BNP was elevated to over 17,000, her troponin was not detectable. This morning she feels little bit better but tells me she is tired and still somewhat short of breath. It sounds as though a lot of her fluid retention is dietary indiscretion. When asked whether she restricts her water intake she says "they all told me I need to drink more to keep hydrated", I asked who told her that and she says "all of the doctors". She does not follow a fluid restriction, and she tries to force herself to drink fluids throughout the day to keep hydrated. I cannot assess whether she is urinating a lot with her current diuretic based on her history. She has no chest discomfort. Physical Exam Physical Exam: Constitutional: Alert, cooperative and in mild respiratory distress. HEENT: Unremarkable Neck: No jugular venous distention, carotid pulses are normal and equal bilaterally without bruits. Pulmonary: Decreased breath sounds at bases bilaterally. Cardiac: Regular rhythm with a grade 2/6 crescendo decrescendo murmur at the base, a grade 2/6 holosystolic murmur at the apex, no gallop or rub. Abdomen: Soft, nontender with normal bowel sounds. Extremities: +2-3 bilateral pretibial edema. Distal pulses intact. Neurologic: No focal findings. Gait was not tested. Skin: No rash, ecchymoses or petechiae. Results & Data ([facility]) Vital Signs (Past 12 Hours) Vital Signs Temp Pulse Pulse Pulse Resp BP BP 12/31/20 08:00 36.2 C L 67 58 L 22 185/47 H 12/31/20 04:00 36.6 C 68 18 169/78 H 12/31/20 03:22 36.5 C 73 19 174/80 H 12/31/20 02:00 69 12/31/20 00:30 66 22 174/79 H 12/31/20 00:01 70 22 169/85 H 12/30/20 23:35 12/30/20 23:30 68 18 183/80 H 12/30/20 23:24 71 19 168/82 H 12/30/20 22:58 36.8 C 80 16 161/120 H Pulse Ox 12/31/20 08:00 97 12/31/20 04:00 96 12/31/20 03:22 93 12/31/20 02:00 12/31/20 00:30 96 12/31/20 00:01 96 12/30/20 23:35 96 12/30/20 23:30 98 12/30/20 23:24 94 12/30/20 22:58 96 Laboratory Results Cardiac Enzymes 12/30/20 Range/Units 22:30 AST 22 (15-37) U/L Troponin I < 0.015 (0-0.045) ng/ml CBC 12/30/20 12/31/20 Range/Units 22:30 06:05 WBC 10.44 8.65 (4.8-10.8) K/uL RBC 3.64 L 3.42 L (4.2-5.4) M/uL Hgb 9.8 L 9.2 L (12.0-16.0) g/dL Hct 31.6 L 30.0 L (37-47) % Plt Count 294 238 (130-400) K/uL Neut # (Auto) 7.51 H (1.4-6.5) K/uL Lymph # (Auto) 1.52 (1.2-3.4) K/uL [place] # (Auto) 1.18 H (0.11-0.59) K/uL Eos # (Auto) 0.17 (0-0.5) K/uL Baso # (Auto) 0.03 (0-0.2) K/uL Comprehensive Metabolic Panel 12/30/20 12/31/20 Range/Units 22:30 06:05 Sodium 140 141 (136-145) mmol/L Potassium 4.3 4.5 (3.5-5.1) mmol/L Chloride 103 107 (98-107) mmol/L Carbon Dioxide 27 29 (21-32) mmol/L BUN 88 H 90 H (7-18) mg/dl Creatinine 3.87 H 3.80 H (0.6-1.2) mg/dl Glucose 116 H 63 L (70-99) mg/dl Calcium 9.8 9.1 (8.5-10.1) mg/dl AST 22 (15-37) U/L ALT 28 (12-78) U/L Alkaline Phosphatase 111 (45-117) U/L Total Protein 7.6 (6.4-8.2) gm/dl Albumin 3.0 L (3.4-5.0) gm/dl Intake and Output 12/30/20 12/31/20 12/31/20 22:59 06:59 14:59 Output Total 300 / 300 Balance -300 / -300 Output: Urine Amount (Catheter) 300 / 300 Gan/Indwelling 300 / 300 Other: Weight 98.4 kg 96.4 kg Weight Measurement Method [facility] in [facility] Built in [facility] Diagnostic Findings Telemetry: Sinus rhythm generally in the 60s, no significant arrhythmia. PG Care Time/CCT Total # of Minutes Spent Total Time Spent with Patient: Total time spent is greater than 50% in coordination of care (as documented) at patient's floor/unit and/or counseling patient: Coding Level of Care Code 83140 Subseq Hosp Care Lvl 3 Diagnoses Acute exacerbation of CHF (congestive heart failure) I50.9 Heart failure type: unspecified CKD (chronic kidney disease) N18.9 Chronic kidney disease stage: unspecified stage Cardiomyopathy I42.9 Moderate calcific aortic stenosis I35.0 (1) Acute exacerbation of CHF (congestive heart failure) Heart failure type: unspecified Qualified Code(s): I50.9 - Heart failure, unspecified (2) CKD (chronic kidney disease) Chronic kidney disease stage: unspecified stage Qualified Code(s): N18.9 - Chronic kidney disease, unspecified
--- NOTE | 2020-12-31 08:53 | XRay Report ---
XR chest 1V portable CLINICAL HISTORY: Dyspnea COMPARISON STUDY: Chest radiograph December 28, 2020. FINDINGS: There is no pneumothorax. Moderate bilateral pleural effusions are again noted. Pulmonary e fabio has progressed. Bibasilar opacities have increased. Cardiomediastinal silhouette is stable. IMPRESSION: Progression of pulmonary edema, moderate bilateral pleural effusions and associated biba silar opacities ACT 112: Negative or not required by law. Electronically signed by: Emigdio Ibrahim M.D. 12/31/2020 8:52 AM
[2020-12-31] MEDS ORDERED: METOPROLOL SUCC 50MG EXT REL TAB PO SCH (09:00)
[2020-12-31] MEDS: INSULIN ASPART 100 UNITS/ML 3 ML PEN SC SCH ×4 (10:06→20:12)
[2020-12-31] MEDS ORDERED: NYSTATIN POWDER 15GM BTL EXT PRN (10:36)
--- NOTE | 2020-12-31 13:07 | Nephrology Consultation ---
Date of Consultation December 31, 2020 Assessment & Plan (1) CKD (chronic kidney disease): CKD IV A3. Approaching the need for HD but no emergent indication at this time. AVF placed on November 08 has a good thrill and bruit and may be ready for use though it is still small. The fistula was placed by Dr. Gregg. At this time, aggressive trial of diuretics is encouraged. Sonam has discussed dialysis in detail with Dr. Spangler and plans to dialyze at [facility] when needed. Medications are appropriately dosed for kidney dysfunction. Monitor metabolic profile daily. (2) Acute exacerbation of CHF (congestive heart failure): IV furosemide 40 mg provided. Document strict I/O's and daily morning weight. Cardiology consult appreciated. CKD certainly largely contributing. At this time Sonam has advanced kidney dysfunction with nephrotic range proteinuria and hypoalbuminemia. She is approaching the need for dialysis. However, emergent HD not indicated. I suspect, given Torsemide 40 mg daily at home, she will require larger doses of IV diuretic pending monitoring response to the IV furosemide that has been given. If no adequate response is seen by this afternoon, suggest trying Bumex 4 mg IV and subsequently a gtt as needed. (3) Hypertension, uncontrolled: Maintained on amlodipine and metoprolol succinate as outpatient. Anticipate some improvement with diuresis. Amlodipine increased from 5 mg to 10 mg daily. LASHAY/ARB avoided due to renal dysfunction. (4) Anemia: Chronic, stable. Not on EMELINA therapy as outpatient. Epogen deferred today pending update iron profile and improved BP control. Iron profile to be obtained with AM labs. Repeat H/H tomorrow AM. History of Present Illness Reason for Consultation: DONNA, CKD Requesting Physician: Rick Tejeda DO Attending Physician: Rick Tejeda DO History of Present Illness Sonam Bolivar is a 80-year-old female with chronic kidney disease. She fol lows in the nephrology clinic with Dr. Spangler. CKD has been attributed to DKD. Sonam has not had a kidney biopsy. Prior screening did not demonstrate concern for a monoclonal process. Baseline creatinine is 3.8 mg/dL. Urine protein excretion is high grade with a most recent random PCR of 6.6. Sonam has not been on LASHAY/ARB therapy due to a history of DONNA. She has completed predialysis education through [facility]. A L RC AVF was placed by Dr. Gregg on November 08. Sonam saw Dr. Spangler on November 15. Sonam follows in the cardiology clinic with Dr. Hamm. She has a history of coronary artery disease and HFpEF. LVEF 45% with mild LVH, moderate MR and moderate . Medical history is also notable for Graves disease and multinodular goiter as well as DMII, obesity, and hypertension. Dr. Hamm had recently increased Torsemide from 30 mg to 40 mg daily. Sonam presented to [facility] yesterday with progressive shortness of breath. She was found to be volume overloaded. CXR demonstrating progressive pulmonary edema and moderate BL pleural effusions. Weight is increased 4 kg from baseline. Furosemide 40 mg IV was provided. Cardiology consultation was obtained by Dr. Watkins. Sonam was sleeping upright in her hospital bed this morning. She continues to struggle with orthopnea but overall dyspnea has improved. Sonam lives in [facility]. She has family who assist her at home. She plans to dialyze at [facility] in [place] when necessary. She will have one daughter drive her to dialysis and has another daughter who works in [employer] and plans to bring Sonam home post treatment. Allergies Allergy/AdvReac Type Severity Reaction Status Date / Time codeshereen AdvReac Unknown DOES NOT Verified 12/31/20 00:[address] IT MAKES HER FEEL. Home Medications Medication Instructions Recorded Confirmed Type ascorbic acid (vitamin C) 500 mg 500 mg PO QAM tab 12/10/18 12/31/20 History tablet aspirin 325 mg tablet 650 mg PO DAILY PRN tab 12/10/18 12/31/20 History multivit with min-folic 1 tab PO QAM 12/10/18 12/31/20 History acid-lutein 400 mcg-250 mcg chewable tablet (Centrum Silver) polyethylene glycol 3350 17 17 gm PO DAILY PRN gm 12/10/18 12/31/20 History gram/dose oral powder venlafaxine 150 mg 150 mg PO QAM cap 12/10/18 12/31/20 History capsule,extended release 24 hr vitamins A,C,R-uove-qjbyed 14,320 1 cap PO BID cap 12/10/18 12/31/20 History unit-226 mg-200 unit capsule (PreserVision AREDS) calcium carbonate-vitamin D3 600 2 tab PO QAM 03/09/20 12/31/20 History mg(1,500 mg)-400 unit chewable tablet (Calcium 600 with Vitamin D3) insulin glargine 100 unit/mL (3 27 unit SUBCUT QPM ml 05/22/20 12/31/20 History mL) subcutaneous pen (Basaglar KwikPen U-100 Insulin) OneTouch Ultra Blue Test Strip #100 ea NS 08/10/20 12/27/20 Rx (blood sugar diagnostic) Incentive Spirometer #1 ea 10/24/20 12/27/20 Rx atorvastatin 80 mg tablet 80 mg PO QAM #90 tab 10/24/20 12/31/20 Rx metoprolol succinate 100 mg 150 mg PO QAM #90 tab 10/24/20 12/31/20 Rx tablet,extended release 24 hr pen needle, diabetic 32 gauge x #400 ea 10/24/20 12/27/20 Rx 5/32" (BD Ultra-Fine [place] Pen Needle) isosorbide mononitrate 120 mg 120 mg PO QAM #90 tab 10/25/20 12/31/20 Rx tablet,extended release 24 hr amlodipine 5 mg tablet 5 mg PO BID #180 tab 11/23/20 12/31/20 Rx Novolog Flexpen U-100 Insulin 100 30 unit SUBCUT DAILY 90 Days #30 12/04/20 12/31/20 Rx unit/mL (3 mL) subcutaneous ml NS (insulin aspart U-100) cholecalciferol (vitamin D3) 25 50 mcg PO BID cap 12/27/20 12/31/20 History mcg (1,000 unit) capsule torsemide 20 mg tablet 40 mg PO DAILY #90 tab 12/27/20 12/31/20 Rx venlafaxine 37.5 mg 37.5 mg PO QAM 12/31/20 12/31/20 History tablet,extended release 24 hr Patient History Medical History (Updated 12/31/20 @ 01:20 by Fe Dwyer MD) Anemia Chronic, hgb's in the 10-11 range per chart view, remote hx blood transfusions Carotid artery disease Less than 50% ICA stenosis per 08/2016 carotid duplex 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 Chronic gastroesophageal reflux disease Chronic kidney disease Worsening creatinine now in the 3's under surveillance by nephrology ([facility]), plan for AVF/future dialysis Depression Diabetes IDDM Diabetic peripheral neuropathy associated with type 2 diabetes mellitus Dyslipidemia Gallstones Generalized osteoarthritis of multiple sites Graves disease Per records, TSH WNL 02/2020 labs H/O malignant neoplasm of uterine body Hiatal hernia Hypertension Irregular heart beat metoprolol for this per pt Kidney stones Macular degeneration Moderate calcific aortic stenosis Moderate (ANUJ 1.0cm2, MG 20.8mmhg) per 10/2020 echo Multinodular goiter (nontoxic) Multiple thyroid nodules Obesity Osteopenia Secondary hyperparathyroidism Sleep apnea No device Subclinical hyperthyroidism Type 2 diabetes mellitus with insulin therapy Surgical History Fistula H/O abdominoplasty H/O basal cell carcinoma excision H/O shoulder surgery Right History of appendectomy History of cataract surgery R/L History of colonoscopy History of esophagogastroduodenoscopy (EGD) History of tonsillectomy History of tooth extraction S/P complete hysterectomy Family History Father Lung cancer Diabetes Mother , in a home fire Hypertension Denies family history of Ovarian cancer Prostate cancer Myocardial infarction Breast cancer Colorectal cancer Social History Smoking Status: Former smoker Second Hand Exposure: No; Hx Alcohol Use: No Hx Substance Use: No Preferred Language: Pashto Communication Ability: Effective Visual Impairment: No Limitations Hearing Ability: Normal [employer] Required: No Beliefs That Will Affect Care: None marital status: Current Living Situation: Family current occupational status: retired Other Information That Helps Us Care for You: No Feels Safe at Home: Yes Safety Concerns Comment: unsteady at times Childhood Exposure to Second-Hand Smoke: Yes Dental Care, Regularly: No Physical Activity Frequency: Does not Exercise Seatbelt Use: always Sunscreen Use: No Assistive Devices: None Review of Systems 2 Review of Systems: All systems reviewed & are unremarkable except as noted in HPI & below Physical Exam Constitutional: well developed and + ill appearing; no acute distress Eyes: no scleral abnormality and no corneal abnormality ENMT: Mouth: + dry oral mucous membranes; no oral mucosal abnormality Neck: normal visual inspection and trachea midline Respiratory: normal respiratory effort Auscultation: + rales Cardiovascular: Rate/Rhythm: regular rate Heart Sounds: normal S1, normal S2 and + murmur Vessels: + JVD Extremities: + edema and + AV fistula Gastrointestinal (Abdomen): Percussion/Palpation: abdomen soft; abdomen nontender Musculoskeletal: Extremities: no cyanosis and no clubbing Skin: normal turgor; no lesions Neurologic: Motor/Sensory: no tremor and no asterixis Psychiatric: Orientation: alert and oriented x 3 Results & Data ([facility]) Vital Signs (Past 12 Hours) Vital Signs Temp Pulse Pulse Pulse Resp BP Pulse Ox 12/31/20 11:32 36.3 C L 59 L 20 182/75 H 92 12/31/20 08:00 36.2 C L 67 58 L 22 185/47 H 97 12/31/20 04:00 36.6 C 68 18 169/78 H 96 12/31/20 03:22 36.5 C 73 19 174/80 H 93 12/31/20 02:00 69 Laboratory Results Laboratory Results - last 24 hr 12/30/20 12/30/20 12/30/20 22:30 22:30 23:28 WBC 10.44 RBC 3.64 L Hgb 9.8 L Hct 31.6 L MCV 86.8 MCH 26.9 MCHC 31.0 L RDW Std Deviation 50.7 H RDW Coeff of Chris 16.3 H Plt Count 294 MPV 10.0 Immature Gran % (Auto) 0.3 Neut % (Auto) 71.9 Lymph % (Auto) 14.6 [place] % (Auto) 11.3 Eos % (Auto) 1.6 Baso % (Auto) 0.3 Neut # (Auto) 7.51 H Lymph # (Auto) 1.52 [place] # (Auto) 1.18 H Eos # (Auto) 0.17 Baso # (Auto) 0.03 Immature Gran # (Auto) 0.03 H ABG pH ABG pCO2 ABG pO2 ABG HCO3 ABG O2 Saturation ABG Base Excess Lauro Test Barometric Pressure Oxygen Given Sodium 140 Potassium 4.3 Chloride 103 Carbon Dioxide 27 Anion Gap 10.0 BUN 88 H Creatinine 3.87 H Est Cr Clr Drug Dosing Not Reportable Est GFR ( Amer) 12.2 Est GFR (Non-Af Amer) 10.5 BUN/Creatinine Ratio 22.6 H Glucose 116 H POC Glucose Estimat Average Glucose Hemoglobin A1c Calcium 9.8 Total Bilirubin 0.4 AST 22 ALT 28 Alkaline Phosphatase 111 Troponin I < 0.015 NT-Pro-B Natriuret Pep 06302 H Total Protein 7.6 Albumin 3.0 L Globulin 4.6 H Albumin/Globulin Ratio 0.6 L Urine Color Urine Appearance Urine pH Ur Specific [place] Urine Protein Urine Glucose (UA) Urine Ketones Urine Blood Urine Nitrite Urine Bilirubin Urine Urobilinogen Ur Leukocyte Esterase Urine WBC (Auto) Urine RBC (Auto) U Hyaline Cast (Auto) U Epithel Cells (Auto) Urine Bacteria (Auto) Ur Renal Epithelial Cell COVID-19 Eval Order Covid19 at [facility] SARS-CoV-2 (PCR) 12/30/20 12/30/20 12/31/20 23:28 23:44 00:52 WBC RBC Hgb Hct MCV MCH MCHC RDW Std Deviation RDW Coeff of Chris Plt Count MPV Immature Gran % (Auto) Neut % (Auto) Lymph % (Auto) [place] % (Auto) Eos % (Auto) Baso % (Auto) Neut # (Auto) Lymph # (Auto) [place] # (Auto) Eos # (Auto) Baso # (Auto) Immature Gran # (Auto) ABG pH 7.34 L ABG pCO2 53 H ABG pO2 89 ABG HCO3 28 H ABG O2 Saturation 96.5 H ABG Base Excess 1.5 Lauro Test POS Barometric Pressure 730.2 Oxygen Given 6 L Sodium Potassium Chloride Carbon Dioxide Anion Gap BUN Creatinine Est Cr Clr Drug Dosing Est GFR ( Amer) Est GFR (Non-Af Amer) BUN/Creatinine Ratio Glucose POC Glucose Estimat Average Glucose Hemoglobin A1c Calcium Total Bilirubin AST ALT Alkaline Phosphatase Troponin I NT-Pro-B Natriuret Pep Total Protein Albumin Globulin Albumin/Globulin Ratio Urine Color Yellow Urine Appearance Clear Urine pH 5.5 Ur Specific [place] 1.016 Urine Protein 3+ H Urine Glucose (UA) Negative Urine Ketones Negative Urine Blood Negative Urine Nitrite Negative Urine Bilirubin Negative Urine Urobilinogen Negative Ur Leukocyte Esterase Negative Urine WBC (Auto) 1-5 Urine RBC (Auto) 5-10 H U Hyaline Cast (Auto) 1-5 U Epithel Cells (Auto) >30 H Urine Bacteria (Auto) Negative Ur Renal Epithelial Cell 0-5 COVID-19 Eval Order SARS-CoV-2 (PCR) NEGATIVE 12/31/20 12/31/20 12/31/20 06:05 06:05 06:05 WBC 8.65 RBC 3.42 L Hgb 9.2 L Hct 30.0 L MCV 87.7 MCH 26.9 MCHC 30.7 L RDW Std Deviation 51.0 H RDW Coeff of Chris 16.2 H Plt Count 238 MPV 9.1 Immature Gran % (Auto) Neut % (Auto) Lymph % (Auto) [place] % (Auto) Eos % (Auto) Baso % (Auto) Neut # (Auto) Lymph # (Auto) [place] # (Auto) Eos # (Auto) Baso # (Auto) Immature Gran # (Auto) ABG pH ABG pCO2 ABG pO2 ABG HCO3 ABG O2 Saturation ABG Base Excess Lauro Test Barometric Pressure Oxygen Given Sodium 141 Potassium 4.5 Chloride 107 Carbon Dioxide 29 Anion Gap 5.0 BUN 90 H Creatinine 3.80 H Est Cr Clr Drug Dosing 14.3 Est GFR ( Amer) 12.4 Est GFR (Non-Af Amer) 10.7 BUN/Creatinine Ratio 23.7 H Glucose 63 L POC Glucose Estimat Average Glucose Pending Hemoglobin A1c Pending Calcium 9.1 Total Bilirubin AST ALT Alkaline Phosphatase Troponin I NT-Pro-B Natriuret Pep Total Protein Albumin Globulin Albumin/Globulin Ratio Urine Color Urine Appearance Urine pH Ur Specific [place] Urine Protein Urine Glucose (UA) Urine Ketones Urine Blood Urine Nitrite Urine Bilirubin Urine Urobilinogen Ur Leukocyte Esterase Urine WBC (Auto) Urine RBC (Auto) U Hyaline Cast (Auto) U Epithel Cells (Auto) Urine Bacteria (Auto) Ur Renal Epithelial Cell COVID-19 Eval Order SARS-CoV-2 (PCR) 12/31/20 12/31/20 12/31/20 07:46 07:54 08:19 WBC RBC Hgb Hct MCV MCH MCHC RDW Std Deviation RDW Coeff of Chris Plt Count MPV Immature Gran % (Auto) Neut % (Auto) Lymph % (Auto) [place] % (Auto) Eos % (Auto) Baso % (Auto) Neut # (Auto) Lymph # (Auto) [place] # (Auto) Eos # (Auto) Baso # (Auto) Immature Gran # (Auto) ABG pH ABG pCO2 ABG pO2 ABG HCO3 ABG O2 Saturation ABG Base Excess Lauro Test Barometric Pressure Oxygen Given Sodium Potassium Chloride Carbon Dioxide Anion Gap BUN Creatinine Est Cr Clr Drug Dosing Est GFR ( Amer) Est GFR (Non-Af Amer) BUN/Creatinine Ratio Glucose POC Glucose 65 L* 56 L* 60 L* Estimat Average Glucose Hemoglobin A1c Calcium Total Bilirubin AST ALT Alkaline Phosphatase Troponin I NT-Pro-B Natriuret Pep Total Protein Albumin Globulin Albumin/Globulin Ratio Urine Color Urine Appearance Urine pH Ur Specific [place] Urine Protein Urine Glucose (UA) Urine Ketones Urine Blood Urine Nitrite Urine Bilirubin Urine Urobilinogen Ur Leukocyte Esterase Urine WBC (Auto) Urine RBC (Auto) U Hyaline Cast (Auto) U Epithel Cells (Auto) Urine Bacteria (Auto) Ur Renal Epithelial Cell COVID-19 Eval Order SARS-CoV-2 (PCR) 12/31/20 12/31/20 09:18 11:24 WBC RBC Hgb Hct MCV MCH MCHC RDW Std Deviation RDW Coeff of Chris Plt Count MPV Immature Gran % (Auto) Neut % (Auto) Lymph % (Auto) [place] % (Auto) Eos % (Auto) Baso % (Auto) Neut # (Auto) Lymph # (Auto) [place] # (Auto) Eos # (Auto) Baso # (Auto) Immature Gran # (Auto) ABG pH ABG pCO2 ABG pO2 ABG HCO3 ABG O2 Saturation ABG Base Excess Lauro Test Barometric Pressure Oxygen Given Sodium Potassium Chloride Carbon Dioxide Anion Gap BUN Creatinine Est Cr Clr Drug Dosing Est GFR ( Amer) Est GFR (Non-Af Amer) BUN/Creatinine Ratio Glucose POC Glucose 142 H 130 H Estimat Average Glucose Hemoglobin A1c Calcium Total Bilirubin AST ALT Alkaline Phosphatase Troponin I NT-Pro-B Natriuret Pep Total Protein Albumin Globulin Albumin/Globulin Ratio Urine Color Urine Appearance Urine pH Ur Specific [place] Urine Protein Urine Glucose (UA) Urine Ketones Urine Blood Urine Nitrite Urine Bilirubin Urine Urobilinogen Ur Leukocyte Esterase Urine WBC (Auto) Urine RBC (Auto) U Hyaline Cast (Auto) U Epithel Cells (Auto) Urine Bacteria (Auto) Ur Renal Epithelial Cell COVID-19 Eval Order SARS-CoV-2 (PCR) PG Care Time/CCT Total # of Minutes Spent Total Time Spent with Patient: Total time spent is greater than 50% in coordination of care (as documented) at patient's floor/unit and/or counseling patient: Coding Level of Care Code 41772 Inpt Consult Level 5 Diagnoses Anemia D64.9 CKD (chronic kidney disease) N18.9 Chronic kidney disease stage: unspecified stage Acute exacerbation of CHF (congestive heart failure) I50.9 Heart failure type: unspecified Hypertension, uncontrolled I10 (1) CKD (chronic kidney disease) Chronic kidney disease stage: unspecified stage Qualified Code(s): N18.9 - Chronic kidney disease, unspecified (2) Acute exacerbation of CHF (congestive heart failure) Heart failure type: unspecified Qualified Code(s): I50.9 - Heart failure, unspecified
[2020-12-31] MEDS ORDERED: BUMETANIDE 4 MG in SYRINGE 0 ML IV ONE ×2 (14:00→23:30)
--- NOTE | 2020-12-31 14:04 | Pulmonary Consultation ---
Date of Consultation December 31, 2020 Assessment & Plan (1) Acute exacerbation of CHF (congestive heart failure): Heart failure type: unspecified Qualified Code(s): I50.9 - Heart failure, unspecified (2) Hypoxemia: (3) Bilateral pleural effusion: (4) Heart failure with mid-range ejection fraction: 72-year-old female with a history of diastolic CHF, ESRD, bilateral effusions and diabetes mellitus type 2 presenting to the hospital for shortness of breath. Bilateral effusions: Secondary to her volume overload state related to her end- stage renal disease and acute diastolic heart failure. Agree with diuretic therapy. Can consider thoracentesis if no improvement in the next 1 to 2 days. Maintain oxygen saturations of 90 to 94%. Thank you for the consultation. Pulmonary will continue to follow along with you. History of Present Illness Reason for Consultation: Bilateral pleural effusions Attending Physician: Rick Tejeda DO History of Present Illness 80-year-old female with history of ESRD nearing the need for dialysis, diastolic CHF, aortic stenosis followed by cardiology who presented to the [facility] due to increasing shortness of breath. She was noted to have worsening bilateral effusions. She follows with Dr. Ceja in the pulmonary clinic. She has been feeling short of breath during this hospitalization with some minor improvement. She denies any chest pain. She endorses 2-3 pillow orthopnea. Chest x-ray completed yesterday demonstrated bilateral effusions with increased interstitial markings. Her creatinine is 3.80. No significant leukocytosis seen. She is currently receiving 4 mg of IV Bumex. There is consideration for a Bumex drip. She is feeling better today with regards to her shortness of breath. She is lying in bed. Allergies Allergy/AdvReac Type Severity Reaction Status Date / Time codeine AdvReac Unknown DOES NOT Verified 12/31/20 00:14 [address] THE WAY IT MAKES HER FEEL. Home Medications Medication Instructions Recorded Confirmed Type ascorbic acid (vitamin C) 500 mg 500 mg PO QAM tab 12/10/18 12/31/20 History tablet aspirin 325 mg tablet 650 mg PO DAILY PRN tab 12/10/18 12/31/20 History multivit with min-folic 1 tab PO QAM 12/10/18 12/31/20 History acid-lutein 400 mcg-250 mcg chewable tablet (Centrum Silver) polyethylene glycol 3350 17 17 gm PO DAILY PRN gm 12/10/18 12/31/20 History gram/dose oral powder venlafaxine 150 mg 150 mg PO QAM cap 12/10/18 12/31/20 History capsule,extended release 24 hr vitamins A,C,W-rxqo-olvsre 14,320 1 cap PO BID cap 12/10/18 12/31/20 History unit-226 mg-200 unit capsule (PreserVision AREDS) calcium carbonate-vitamin D3 600 2 tab PO QAM 03/09/20 12/31/20 History mg(1,500 mg)-400 unit chewable tablet (Calcium 600 with Vitamin D3) insulin glargine 100 unit/mL (3 27 unit SUBCUT QPM ml 05/22/20 12/31/20 History mL) subcutaneous pen (Basaglar KwikPen U-100 Insulin) OneTouch Ultra Blue Test Strip #100 ea NS 08/10/20 12/27/20 Rx (blood sugar diagnostic) Incentive Spirometer #1 ea 10/24/20 12/27/20 Rx atorvastatin 80 mg tablet 80 mg PO QAM #90 tab 10/24/20 12/31/20 Rx metoprolol succinate 100 mg 150 mg PO QAM #90 tab 10/24/20 12/31/20 Rx tablet,extended release 24 hr pen needle, diabetic 32 gauge x #400 ea 10/24/20 12/27/20 Rx 5/32" (BD Ultra-Fine [place] Pen Needle) isosorbide mononitrate 120 mg 120 mg PO QAM #90 tab 10/25/20 12/31/20 Rx tablet,extended release 24 hr amlodipine 5 mg tablet 5 mg PO BID #180 tab 11/23/20 12/31/20 Rx Novolog Flexpen U-100 Insulin 100 30 unit SUBCUT DAILY 90 Days #30 12/04/20 12/31/20 Rx unit/mL (3 mL) subcutaneous ml NS (insulin aspart U-100) cholecalciferol (vitamin D3) 25 50 mcg PO BID cap 12/27/20 12/31/20 History mcg (1,000 unit) capsule torsemide 20 mg tablet 40 mg PO DAILY #90 tab 12/27/20 12/31/20 Rx venlafaxine 37.5 mg 37.5 mg PO QAM 12/31/20 12/31/20 History tablet,extended release 24 hr Patient History Medical History (Updated 12/31/20 @ 01:20 by Fe Dwyer MD) Anemia Chronic, hgb's in the 10-11 range per chart view, remote hx blood transfusions Carotid artery disease Less than 50% ICA stenosis per 08/2016 carotid duplex 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 Chronic gastroesophageal reflux disease Chronic kidney disease Worsening creatinine now in the 3's under surveillance by nephrology ([facility]), plan for AVF/future dialysis Depression Diabetes IDDM Diabetic peripheral neuropathy associated with type 2 diabetes mellitus Dyslipidemia Gallstones Generalized osteoarthritis of multiple sites Graves disease Per records, TSH WNL 02/2020 labs H/O malignant neoplasm of uterine body Hiatal hernia Hypertension Irregular heart beat metoprolol for this per pt Kidney stones Macular degeneration Moderate calcific aortic stenosis Moderate (ANUJ 1.0cm2, MG 20.8mmhg) per 10/2020 echo Multinodular goiter (nontoxic) Multiple thyroid nodules Obesity Osteopenia Secondary hyperparathyroidism Sleep apnea No device Subclinical hyperthyroidism Type 2 diabetes mellitus with insulin therapy Surgical History Fistula H/O abdominoplasty H/O basal cell carcinoma excision H/O shoulder surgery Right History of appendectomy History of cataract surgery R/L History of colonoscopy History of esophagogastroduodenoscopy (EGD) History of tonsillectomy History of tooth extraction S/P complete hysterectomy Family History Father Lung cancer Diabetes Mother , in a home fire Hypertension Denies family history of Ovarian cancer Prostate cancer Myocardial infarction Breast cancer Colorectal cancer Social History Smoking Status: Former smoker Second Hand Exposure: No; Hx Alcohol Use: No Hx Substance Use: No Preferred Language: Belarusian Communication Ability: Effective Visual Impairment: No Limitations Hearing Ability: Normal 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 Required: No Beliefs That Will Affect Care: None marital status: Current Living Situation: Family current occupational status: retired Other Information That Helps Us Care for You: No Feels Safe at Home: Yes Safety Concerns Comment: unsteady at times Childhood Exposure to Second-Hand Smoke: Yes Dental Care, Regularly: No Physical Activity Frequency: Does not Exercise Seatbelt Use: always Sunscreen Use: No Assistive Devices: None Review of Systems Review of Systems: All systems reviewed & are unremarkable except as noted in HPI & below Physical Exam Physical Exam: Constitutional: Chronically ill-appearing female in no apparent distress. Laying in bed. Frail appearing. Eyes: Conjunctivae are normal. Anicteric sclera. Ears nose, mouth and throat: No obvious deformities. Neck: Trachea is midline. Visual inspection is normal. Respiratory: Diminished to auscultation bilaterally. Cardiovascular: Regular rate and rhythm. No murmurs. 2+ pitting edema. AV fistula noted. Gastrointestinal: Normal bowel sounds, soft, nontender and nondistended. No hepatosplenomegaly noted. Musculoskeletal: No cyanosis. Patient is able to move all extremities. Skin: No rashes, warm dry and intact. Neurologic: No obvious focal neurological deficits seen. Psychiatric: Alert and oriented x3 with a euthymic affect. Results & Data Results & Data ([facility]) Vital Signs (Past 12 Hours) Vital Signs Temp Pulse Pulse Pulse Resp BP Pulse Ox 12/31/20 11:32 97.3 F L 59 L 20 182/75 H 92 12/31/20 08:00 97.2 F L 67 58 L 22 185/47 H 97 12/31/20 04:00 97.9 F 68 18 169/78 H 96 12/31/20 03:22 97.7 F 73 19 174/80 H 93 12/31/20 02:00 69 Vital signs, labs and imaging personally reviewed PG Care Time/CCT Total # of Minutes Spent Total Time Spent with Patient: Total time spent is greater than 50% in coordination of care (as documented) at patient's floor/unit and/or counseling patient: Coding Level of Care Code 25651 Initial Inpt Care Lvl 2 Diagnoses Acute exacerbation of CHF (congestive heart failure) I50.9 Heart failure type: unspecified Hypoxemia R09.02 Bilateral pleural effusion J90 Heart failure with mid-range ejection fraction I50.9
--- NOTE | 2020-12-31 19:15 | Billing Data ---
Date of Service December 31, 2020 Coding Level of Care Code 05010 Subseq Hosp Care Lvl 2
[2020-12-31] MEDS ORDERED: INSULIN GLARGINE SOLOSTAR 100 UNITS/ML 3 ML PEN SQ SCH ×2 (21:00)
--- NOTE | 2020-12-31 21:23 | Billing Data ---
Date of Service December 31, 2020 Coding Level of Care Code 58734 Initial Inpt Care Lvl 3
--- NOTE | 2021-01-01 07:10 | Hospitalist Progress Note ---
Date of Service January 01, 2021 Assessment & Plan (1) Acute exacerbation of CHF (congestive heart failure): Plan: 80yo female with a history of HFrEF, IDDM2, ESRD, multinodular goiter, BL pleural effusions, HLD, HTN, admitted for acute CHF exacerbation, suspected to be secondary to dietary indiscretion. HFrEF acute exacerbation BNP on admission 17,393 EF 45-50% Echo (10/30), moderate aortic stenosis, moderate MR, mild LVH Torsemide recently increased to 40mg daily without much improvement Cardiology consulted, follows with Dr. Hamm Nephrology consulted, recommends diuresis (12/31: lasix 40mg IV in AM, bumex 4mg IV in PM) Continue amlodipine, isosorbide mononitrate Gan, monitor I/Os. last balance neg 1080. Follow daily BMP Bilateral pleural effusions - transudative sec to CHF exac Chronic, follows with Dr. Ceja. worse compared to CXR on 12/28. repeat 01/01 - persistent. Will consider thoracentesis if still indicated after diuresis due to worsening respiratory status - pul to do thoracentesis. Acute respiratory failure - sec to fluid overload/pleural effusion requiring 6L NC O2. diuresis and thoracentesis should help. Hypertension Hold home metoprolol if HR <65. if HR>65, will resume on half dose Consider PO hydralazine for BP control this admission Bradycardia 12/31: 50s most of the day May be 2/2 home metoprolol XL 150mg PO qAM ESRD Cr 3.87, GFR ~10, approximately baseline not on dialysis but has AV Fistula nephro consult for worsening ESRD, possible need for dialysis CAD Continue statin IDDM2 Home regimen held (insulin basaglar 27 units sq PM), continue SSI Hypoglycemic to 63 AM of 12/31. may be 2/2 decreased PO intake overnight during initial admission : per pharmacy recommendation, decreasing lantus to 10u Check BSG ACHS Chronic Anemia Hgb 9.8, baseline 10-11 Follow CBC DVt ppx: heparin sq bid FEn/GI: heart healthy, low sodium Code status: conditional code -- no intubation Dispo: med/tele (2) Hypoxemia: (3) Urinary Incontinence: (4) Ambulatory dysfunction: (5) Type 2 diabetes mellitus with insulin therapy: (6) Multinodular goiter (nontoxic): (7) ESRD (end stage renal disease): (8) Bilateral pleural effusion: (9) Moderate calcific aortic stenosis: (10) Graves disease: (11) Respiratory acidosis: (12) Bradycardia: Admission and Anticipated Discharge Date Admission Date: December 31, 2020 Supervising Physician Co-Signing Physician Notes Resident Physician Supervision Note: I independently interviewed and examined the patient and verified the tinajero history and physical, reviewed labs and image studies and agree with resident Dr. Clancy findings and care plan. Subjective Patient seen and evaluated at bedside this morning. No acute events overnight. Feels well today, noting improved SOB compared to yesterday. No new complaints. Patient denies abdominal pain, nausea, vomiting, lightheadedness, dizziness, and diarrhea. Review of Systems Review of Systems: See HPI Physical Exam Physical Exam: Constitutional: well-appearing, no acute distress HEENT: NCAT, no conjunctival injection CV: regular rhythm, no murmur appreciated, extremities well-perfused Resp: poor air movement, no wheezes/rales/rhonchi appreciated, no increased work of breathing MSK: no gross deformities appreciated Skin: warm, dry, no rash appreciated Neuro: AOx4, no focal neurological deficits appreciated Results & Data Results & Data ([facility]) Vital Signs (Past 12 Hours) Vital Signs Temp Pulse Pulse Resp BP Pulse Ox 01/01/21 04:02 36.5 C 62 18 171/67 H 98 01/01/21 02:50 57 L 01/01/21 00:22 177/68 H 12/31/20 23:09 36.3 C L 60 18 166/60 H 96 Resident Activity Tracking Resident Involvement: Resident Care Provided Care Provided: Adult Hospital Medicine (1) Acute exacerbation of CHF (congestive heart failure) Heart failure type: unspecified Qualified Code(s): I50.9 - Heart failure, unspecified
[2021-01-01 07:22] LABS: iSTAT Creatinine 4.2 mg/dl (0.6-1.3); iSTAT Hemoglobin 9.9 g/dl (12.0-16.0); iSTAT Ionized Calcium 1.22 mmol/l (1.12-1.32); iSTAT Potassium 4.3 mmol/L (3.3-5.0)
[2021-01-01 07:28] LABS: Estimated Average Glucose 128 mg/dl; Hemoglobin A1C 6.1 % (4.5-5.6)
[2021-01-01] MEDS: CARBOHYDRATES FOR HYPOGLYCEMIA PO PRN ×2 (07:59→08:17)
[2021-01-01] MEDS: INSULIN ASPART 100 UNITS/ML 3 ML PEN SC SCH ×4 (08:49→21:47)
[2021-01-01 08:57] LABS: Hematocrit (blood only) 30.4 % (37-47); Mean Corpuscular Hemoglobin 26.8 pg (25-34); Mean Corpuscular Hgb Conc 29.6 g/dL (32-36); Mean Corpuscular Volume 90.5 fL (80-100); Mean Platelet Volume 9.4 fL (7.4-10.4); Platelet Count 247 K/uL (130-400); RDW Coefficient of Variation 16.2 % (11.5-14.5); RDW Standard Deviation 52.5 fL (36.4-46.3); Red Blood Count 3.36 M/uL (4.2-5.4); White Blood Count 7.84 K/uL (4.8-10.8)
--- NOTE | 2021-01-01 08:59 | XRay Report ---
XR chest 1V portable CLINICAL HISTORY: pulm edema. pleural effusions COMPARISON STUDY: Chest radiograph December 30, 2020. FINDINGS: There is no pneumothorax. There are persistent bilateral pleural effusions and associated b ibasilar opacities. Pulmonary edema persists. Cardiomediastinal silhouette is stable. Right perihilar opacity is slightly increased. IMPRESSION: Persistent pulmonary edema, bilateral pleural effusions and associated bibasilar opaciti es. ACT 112: Negative or not required by law. Electronically signed by: Emigdio Ibrahim M.D. 01/01/2021 8:58 AM
--- NOTE | 2021-01-01 08:59 | Hospitalist Progress Note ---
Date of Service January 01, 2021 Assessment & Plan (1) Acute exacerbation of CHF (congestive heart failure): Plan: 80 yo F hx HFrEF, IDDM2, ESRD, multinodular goiter, BL pleural effusions, HLD, HTN, admitted for acute congestive heart failure exacerbation. HFrEF exacerbation - lasix 40 mg IV x1 in ER, continue daily with BMP monitoring - marroquin, monitor I/O - dry weight ~206 lb? - EF 45-50% in october 2020, complicated by moderate aortic stenosis - torsemide recently increased to 40 mg daily without much improvement - iv bumex was given 12/31 by nephrology - cont amlodipine, isosorbide mononitrate, metoprolol BL Pleural effusions - chronic, follows with Dr. Ceja - pulm consult for possible thoracentesis - CXR showing BL pleural effusions worse compared to cxr on 12/28 ESRD - Cr 3.87, GFR ~10, approximately baseline - not on dialysis but has AV Fistula - nephro consult for worsening ESRD, possible need for dialysis CAD - statin IDDM2 - insulin glargine 27 units sq PM - SSI [usually takes 7u TID] Chronic Anemia - hg 9.8, baseline 10-11 - Q2D CBC DVt ppx: heparin sq bid FEn/GI: heart healthy, low sodium Code status: conditional code -- no intubation Dispo: med/tele (2) Hypoxemia: (3) Urinary Incontinence: (4) Ambulatory dysfunction: (5) Type 2 diabetes mellitus with insulin therapy: (6) Multinodular goiter (nontoxic): (7) ESRD (end stage renal disease): (8) Bilateral pleural effusion: (9) Moderate calcific aortic stenosis: (10) Graves disease: Admission and Anticipated Discharge Date Admission Date: December 31, 2020 Results & Data Results & Data ([facility]) Vital Signs (Past 12 Hours) Vital Signs Temp Pulse Pulse Resp BP Pulse Ox 01/01/21 07:52 97.5 F L 65 20 189/77 H 96 01/01/21 07:00 59 L 01/01/21 04:02 97.7 F 62 18 171/67 H 98 01/01/21 02:50 57 L 01/01/21 00:22 177/68 H 12/31/20 23:09 97.3 F L 60 18 166/60 H 96 PG Care Time/CCT Total # of Minutes Spent Total Time Spent with Patient: Total time spent is greater than 50% in coordination of care (as documented) at patient's floor/unit and/or counseling patient: Coding Diagnoses Acute exacerbation of CHF (congestive heart failure) I50.9 Heart failure type: unspecified Hypoxemia R09.02 Urinary Incontinence R32 Ambulatory dysfunction R26.2 Type 2 diabetes mellitus with insulin therapy E11.9; Z79.4 Multinodular goiter (nontoxic) E04.2 ESRD (end stage renal disease) N18.6 Bilateral pleural effusion J90 Moderate calcific aortic stenosis I35.0 Graves disease E05.00 (1) Acute exacerbation of CHF (congestive heart failure) Heart failure type: unspecified Qualified Code(s): I50.9 - Heart failure, un specified
--- NOTE | 2021-01-01 09:19 | Pulmonology Progress Note ---
Date of Service January 01, 2021 Assessment & Plan (1) Acute exacerbation of CHF (congestive heart failure): Heart failure type: unspecified Qualified Code(s): I50.9 - Heart failure, unspecified (2) Bilateral pleural effusion: (3) Heart failure with mid-range ejection fraction: (4) Acute respiratory failure with hypoxia: (5) Pulmonary nodules: (6) Pulmonary hypertension: Plan: 72-year-old female with a history of diastolic CHF, ESRD, bilateral effusions and diabetes mellitus type 2 presenting to the hospital for shortness of breath. --Bilateral pleural effusion Appreciated on the CT chest 10/20/20 as well as on the chest x-ray 12/30/2020 Etiology is likely patient's underlying CKD as well as diastolic CHF Patient is requiring oxygen and she is using accessory muscles --> we will plan thoracentesis 2D echo 01/20/2020: EF 45 to 50%, grade 2 diastolic dysfunction, RVSP 40-50 mmHg moderate TR --Acute hypoxic respiratory failure Secondary to fluid overload with bilateral pleural effusion Multifactorial Diastolic as well as systolic CHF is playing a role on top of volume overload from CKD as well as morbid obesity O2 supplementation to keep oxygen saturation between 90-92% --Multiple pulmonary nodules Largest being 8 mm in the right lower lobe followed by 6 mm in the right upper lobe In a patient who is technically a non-smoker which puts her at low risk The likelihood of them being benign is very high. There is a possibility could be an autoimmune process like sarcoidosis but again patient is 79 years old, her labs are within normal limit and she is not symptomatic when it comes to her nodules. Labs 03/09/2020: No lymphopenia, AST, ALT, alk phos within normal limit Calcium high normal. --Pulmonary hypertension Likely type II Continue with treatment for underlying heart failure and CKD --Morbid obesity Advised to lose with a diet and exercise Plan: For thoracentesis today. We will try to do on the right side first and if need be on the left side the following day Risk and benefit of the procedure explained to the patient in depth. Consent signed, witnessed and put in the chart Please note the above document was generated using voice recognition software. It may contain grammatical, syntax or spelling errors.Any formal questions or concerns about the content, text or information contained within the body of this dictation should be directly addressed to the provider for clarification. Admission and Anticipated Discharge Date Admission Date: December 31, 2020 Subjective Patient seen and examined at bedside. Was in mild respiratory distress Is on 4 L nasal cannula. Denies any chest pain, no nausea or vomiting. She did say that she feels more short of breath compared to when she saw me in the clinic on 10/24/2020 Fair appetite Review of Systems Review of Systems: All systems reviewed & are unremarkable except as noted in Subjective Physical Exam Physical Exam: Constitutional: In respiratory distress HEENT: EOMI, PERRLA Respiratory system: Decreased air entry bilaterally no wheeze, positive crackles bilateral lower lobes, no rhonchi CVS: S1-S2 positive, no murmurs or gallops Abdomen: Soft, nontender, nondistended, positive bowel sounds x4, obese Extremities: +2 pulses bilaterally radialis, no cyanosis, no edema, no clubbing, Dupuytren's contracture appreciated Neuro: Awake alert oriented x3 Psych: Normal mood and affect G/U: Positive Gan Skin: no rashes, warm and dry Lymphatic: no cervical or axillary lymphadenopathy Results & Data Results & Data ([facility]) Vital Signs (Past 12 Hours) Vital Signs Temp Pulse Pulse Resp BP Pulse Ox 01/01/21 07:52 36.4 C L 65 20 189/77 H 96 01/01/21 07:00 59 L 01/01/21 04:02 36.5 C 62 18 171/67 H 98 01/01/21 02:50 57 L 01/01/21 00:22 177/68 H 12/31/20 23:09 36.3 C L 60 18 166/60 H 96 01/01/21 08:36 01/01/21 08:36 PG Care Time/CCT Total # of Minutes Spent Total Time Spent with Patient: Total time spent is greater than 50% in coordination of care (as documented) at patient's floor/unit and/or counseling patient: Coding Level of Care Code 92528 Subseq Hosp Care Lvl 3 Diagnoses Acute exacerbation of CHF (congestive heart failure) I50.9 Heart failure type: unspecified Bilateral pleural effusion J90 Heart failure with mid-range ejection fraction I50.9 Acute respiratory failure with hypoxia J96.01 Pulmonary nodules R91.8 Pulmonary hypertension I27.20
--- NOTE | 2021-01-01 09:29 | Electrocardiogram Report ---
Test Reason : Blood Pressure : / mmHG Vent. Rate : 061 BPM Atrial Rate : 061 BPM P-R Int : 162 ms QRS Dur : 108 ms QT Int : 456 ms P-R-T Axes : 051 028 006 degrees QTc Int : 459 ms Normal sinus rhythm Normal ECG When compared with ECG of 30-DEC-2020 23:04, (unconfirmed) Minimal criteria for Septal infarct are no longer Present Nonspecific T wave abnormality now evident in Inferior leads Confirmed by David Watkins ([id number]) on 01/01/2021 9:28:40 AM Referred By: REFERRED SELF Confirmed By:David Watkins
[2021-01-01 09:31] LABS: Albumin Level 2.6 gm/dl (3.4-5.0); BUN Creatinine Ratio 22.1 (10-20); Calcium 8.7 mg/dl (8.5-10.1); Creatinine Clr Calc Pharmacy 13.2 ml/min; Est GFR (African American) 11.3 ml/min; Est GFR (Non-African American) 9.8 ml/min; Potassium 4.4 mmol/L (3.5-5.1)
[2021-01-01 09:34] LABS: Albumin Globulin Ratio 0.6 (0.9-2); Bilirubin,Total 0.3 mg/dl (0.2-1); Ferritin 159.5 ng/ml (8-388); Globulin 4.1 gm/dl (2.5-4.0); Phosphorus 4.6 mg/dl (2.5-4.9); Total Protein 6.7 gm/dl (6.4-8.2)
[2021-01-01] MEDS: ATORVASTATIN 40 MG TAB PO SCH (10:00)
[2021-01-01] MEDS: ISOSORBIDE MONO EXTENDED REL 60 MG TABCR PO SCH (10:00)
[2021-01-01] MEDS: amLODIPine BESYLATE 5 MG TAB PO SCH ×2 (10:00→20:31)
[2021-01-01] MEDS: VENLAFAXINE HCL XR 150 MG CAPXR PO SCH (10:01)
[2021-01-01] MEDS: VENLAFAXINE HCL XR 37.5 MG CAPXR PO SCH (10:02)
--- NOTE | 2021-01-01 10:32 | Nephrology Progress Note ---
Date of Service January 01, 2021 Assessment & Plan (1) Acute kidney injury superimposed on chronic kidney disease: (2) CKD (chronic kidney disease): (3) Acute exacerbation of CHF (congestive heart failure): (4) Hypertension, uncontrolled: Plan: M (5) Anemia: Plan: 80-year-old female with CKD IV A3, baseline creatinine has been around 2.5- 3.0, since admission creatinine staying around 3.5. Admitted with volume overload at home was on torsemide 40 mg daily. on admission initially received furosemide 40 mg IV but since yesterday has been getting Bumex 4 mg IV with minimum response with slightly net negative. Approaching the need for HD but no emergent indication at this time. AVF placed on November [address] Gregg, has a good thrill and bruit and may be ready for use though it is still small. Sonam has discussed dialysis in detail with Dr. Spangler and plans to dialyze at [facility] when needed. -- the will give another dose of Bumex 4 mg IV x1 dose now. Thoracentesis should help with respiratory status as well. -- She is approaching the need for dialysis. However, emergent HD not indicated. -- Dose medications for GFR less than 10 -- check iron study, phosphate. will follow Admission and Anticipated Discharge Date Admission Date: December 31, 2020 Subjective Sonam was seen and examined in her room this morning. She has been having some difficulty breathing and overall feeling poorly. Blood pressure has been running high. Had minimum response to Bumex 4 mg IV yesterday. Labs pending from this morning. Review of Systems Review of Systems: Detailed review of system was otherwise unremarkable. Physical Exam Constitutional: + acute distress and + ill appearing Neck: normal visual inspection Respiratory: + respiratory distress; no cough Auscultation: + diminished lung sounds and + rales; no wheezes Cardiovascular: RRR, no murmur, no edema Neurologic: moves all extremities and awake; not confused Psychiatric: A+Ox3, euthymic affect Results & Data ([facility]) Vital Signs (Past 12 Hours) Vital Signs Temp Pulse Pulse Resp BP Pulse Ox 01/01/21 09:57 64 192/73 H 01/01/21 07:52 36.4 C L 65 20 189/77 H 96 01/01/21 07:00 59 L 01/01/21 04:02 36.5 C 62 18 171/67 H 98 01/01/21 02:50 57 L 01/01/21 00:22 177/68 H 12/31/20 23:09 36.3 C L 60 18 166/60 H 96 PG Care Time/CCT Total # of Minutes Spent Total Time Spent with Patient: Total time spent is greater than 50% in coordination of care (as documented) at patient's floor/unit and/or counseling patient: Coding Level of Care Code 04742 Subseq Hosp Care Lvl 3 Diagnoses CKD (chronic kidney disease) N18.9 Chronic kidney disease stage: unspecified stage Acute exacerbation of CHF (congestive heart failure) I50.9 Heart failure type: unspecified Hypertension, uncontrolled I10 Anemia D64.9 Acute kidney injury superimposed on chronic kidney disease N17.9; N18.9 (1) CKD (chronic kidney disease) Chronic kidney disease stage: unspecified stage Qualified Code(s): N18.9 - Chronic kidney disease, unspecified (2) Acute exacerbation of CHF (congestive heart failure) Heart failure type: unspecified Qualified Code(s): I50.9 - Heart failure, unspecified
[2021-01-01] MEDS ORDERED: BUMETANIDE 4 MG in SYRINGE 0 ML IV ONE (10:45)
[2021-01-01] MEDS: METOPROLOL SUCC 25MG EXT REL TAB PO SCH (11:03)
--- NOTE | 2021-01-01 15:14 | Cardiology Progress Note ---
Date of Service January 01, 2021 Assessment & Plan (1) Acute exacerbation of CHF (congestive heart failure): (2) CKD (chronic kidney disease): (3) Cardiomyopathy: (4) Moderate calcific aortic stenosis: Plan: 1. Congestive heart failure: I believe her congestive heart failure is due to a combination of excessive fluid intake (although I cannot be sure that but she tries to force fluids) and chronic kidney disease. She also has a low albumin which might be contributing to edema. There is no evidence that this is some other type of cardiac abnormality has occurred although a contribution of her mild cardiomyopathy is possible but I doubt that is the primary cause. Her I and O is only slightly negative, her weight is not changing much so it is hard to evaluate intravascular status. 2. Chronic kidney disease: She has significant kidney disease, with a rising creatinine I do not know if her fluid status can be managed by diuretics, but I will leave that up to nephrology. 3. Cardiomyopathy: She has a mild cardiomyopathy, I doubt that has much to do with her presentation but it may be contributory to her fluid management. 4. Aortic stenosis: She has aortic stenosis which was recently evaluated, again that is not likely to be a major cause of her presentation although it could also contribute somewhat. Admission and Anticipated Discharge Date Admission Date: December 31, 2020 Subjective She tells me that she is more short of breath today, no other complaints. Physical Exam Physical Exam: Constitutional: Alert, cooperative and in mild respiratory distress. HEENT: Unremarkable Neck: No jugular venous distention, carotid pulses are normal and equal bilaterally without bruits. Pulmonary: Decreased breath sounds at bases bilaterally. Cardiac: Regular rhythm with a grade 2/6 crescendo decrescendo murmur at the base, a grade 2/6 holosystolic murmur at the apex, no gallop or rub. Abdomen: Soft, nontender with normal bowel sounds. Extremities: +2-3 bilateral pretibial edema. Distal pulses intact. Neurologic: No focal findings. Gait was not tested. Skin: No rash, ecchymoses or petechiae. Results & Data ([facility]) Vital Signs (Past 12 Hours) Vital Signs Temp Pulse Pulse Resp BP Pulse Ox 01/01/21 12:09 36.6 C 63 20 150/62 H 91 01/01/21 09:57 64 192/73 H 01/01/21 07:52 36.4 C L 65 20 189/77 H 96 01/01/21 07:00 59 L 01/01/21 04:02 36.5 C 62 18 171/67 H 98 Laboratory Results Cardiac Enzymes 01/01/21 Range/Units 08:36 AST 18 (15-37) U/L CBC 01/01/21 Range/Units 08:36 WBC 7.84 (4.8-10.8) K/uL RBC 3.36 L (4.2-5.4) M/uL Hgb 9.0 L (12.0-16.0) g/dL Hct 30.4 L (37-47) % Plt Count 247 (130-400) K/uL Comprehensive Metabolic Panel 01/01/21 Range/Units 08:36 Sodium 142 (136-145) mmol/L Potassium 4.4 (3.5-5.1) mmol/L Chloride 105 (98-107) mmol/L Carbon Dioxide 27 (21-32) mmol/L BUN 91 H (7-18) mg/dl Creatinine 4.11 H D (0.6-1.2) mg/dl Glucose 85 (70-99) mg/dl Calcium 8.7 (8.5-10.1) mg/dl AST 18 (15-37) U/L ALT 21 (12-78) U/L Alkaline Phosphatase 88 (45-117) U/L Total Protein 6.7 (6.4-8.2) gm/dl Albumin 2.6 L (3.4-5.0) gm/dl Intake and Output 01/01/21 01/01/21 01/01/21 06:59 14:59 22:59 Intake Total 100 / 220 100 / 100 Output Total 450 / 1000 550 / 550 Balance -350 / -780 -450 / -450 Intake: Oral 100 / 220 100 / 100 Output: Urine Amount (Catheter) 450 / 1000 550 / 550 Gan/Indwelling 450 / 1000 550 / 550 Other: Weight 96.6 kg 96.6 kg Weight Measurement Method Built in [facility] Patient Weight 01/02/21 06:59 Weight 96.6 kg Diagnostic Findings Telemetry: Sinus rhythm in the 60s, brief episode of PAT a few seconds in duration. PG Care Time/CCT Total # of Minutes Spent Total Time Spent with Patient: Total time spent is greater than 50% in coordination of care (as documented) at patient's floor/unit and/or counseling patient: Coding Level of Care Code 12469 Subseq Hosp Care Lvl 2 Diagnoses Acute exacerbation of CHF (congestive heart failure) I50.9 Heart failure type: unspecified CKD (chronic kidney disease) N18.9 Chronic kidney disease stage: unspecified stage Cardiomyopathy I42.9 Moderate calcific aortic stenosis I35.0 (1) Acute exacerbation of CHF (congestive heart failure) Heart failure type: unspecified Qualified Code(s): I50.9 - Heart failure, unspecified (2) CKD (chronic kidney disease) Chronic kidney disease stage: unspecified stage Qualified Code(s): N18.9 - Chronic kidney disease, unspecified
--- NOTE | 2021-01-01 17:01 | Procedure Note ---
Procedure Note Date of Service January 01, 2021 Note Procedure: Diagnostic therapeutic ultrasound-guided catheter thoracentesis Device Sales Consultant: Dr. Enzo Ceja Indication: Pleural effusion Consent: Signed by patient and verified with timeout prior to procedure Anesthesia: 1% lidocaine without epinephrine local. Procedure: Consent was verified and timeout performed. Appropriate imaging studies were reviewed prior to the procedure. Patient was placed in a seated position and limited thoracic ultrasound was performed of the right chest. See separate imaging. Appropriate site above the diaphragm for thoracentesis was selected. The skin was prepped and draped in normal sterile fashion. Lidocaine was used for local analgesia. Fluid was aspirated via the finder needle. A small skin parker was made with the scalpel and the catheter over the needle apparatus was advanced over the rib into the pleural space. Using the syringe one-way valve system, a total of 1800 mL's of dark yellow- sanguinous fluid was removed. The catheter was removed and observed to be intact. A sterile dressing was applied. Post procedure chest x-ray was ordered. Fluid was sent for labs, culture and cytology. Complications: None Blood loss: None Coding CPT Codes Pulmonary/Thoracic - Pulmonary and Thoracic: 95978 Thoracentesis w imaging ([id number]) [facility] [place] Codes ([place]) Pulmonary/Thoracic Procedure 1: Pulmonary and Thoracic: 18061 Thoracentesis w imaging
[2021-01-01] MEDS: POLYETHYLENE (MIRALAX) 17 GM PACK PO PRN (17:02)
--- NOTE | 2021-01-01 17:31 | XRay Report ---
SINGLE VIEW CHEST CLINICAL HISTORY: Status post thoracentesis. FINDINGS: An AP, portable, upright chest radiograph is compared to study performed earlier the same d ay 01/01/2021. Correlation is made with chest CT dated 10/20/2020. The examination is degraded by channing ble technique and patient rotation. The heart is mildly enlarged noting atherosclerotic calcificati on of the thoracic aorta. There is pulmonary vascular congestion. There is a layering left pleural ef fusion with associated basilar consolidation. The right pleural effusion has significantly decreased in size. No pneumothorax is identified. The skeletal structures are osteopenic. The bony thorax appea rs intact. Degenerative change is noted in the shoulders and thoracic spine. IMPRESSION: 1. No pneumothorax is identified post procedure. 2. Cardiomegaly with evidence of congestive failure. 3. Layering left pleural effusion with associated consolidation. 4. The right pleural effusion has significantly decreased in size. ACT 112: Negative or not required by law. Electronically signed by: Isai Baldwin M.D. 01/01/2021 5:30 PM
[2021-01-01 17:43] LABS: Albumin Level 2.4 gm/dl (3.4-5.0); Bilirubin,Total 0.3 mg/dl (0.2-1)
[2021-01-01 17:52] LABS: Appearance Pleural Fluid HAZY; Color Pleural Fluid AMBER; RBC Pleural Fluid (A) 10000 /uL; Source Pleural Fluid RIGHT LUNG; WBC Pleural Fluid (A) 444 /uL
[2021-01-01 18:03] LABS: Glucose Pleural Fluid 92 mg/dl
[2021-01-01 18:10] LABS: Amylase Pleural Fluid 31 U/L; LDH Pleural Fluid 50 U/L
[2021-01-01 18:22] LABS: Basophils, Fluid 0 %; Eosinophils, Fluid 0 %; Lymphocytes, Fluid 65 %; Mono,Macrophage,Mesothelial 27 %; Neutrophils, Fluid 8 %
[2021-01-01] MEDS ORDERED: INSULIN GLARGINE SOLOSTAR 100 UNITS/ML 3 ML PEN SQ SCH (21:00)
[2021-01-02] MEDS: CARBOHYDRATES FOR HYPOGLYCEMIA PO PRN ×2 (06:21→06:36)
[2021-01-02 07:26] LABS: Basophils # (auto) 0.01 K/uL (0-0.2); Basophils % (auto) 0.1 %; Eosinophils # (auto) 0.26 K/uL (0-0.5); Eosinophils % (auto) 3.2 %; Hematocrit (blood only) 28.4 % (37-47); Hemoglobin 8.7 g/dL (12.0-16.0); Immature Granulocytes # (auto) 0.02 K/uL (0.00-0.02); Immature Granulocytes % (auto) 0.2 %; Lymphocytes # (auto) 0.93 K/uL (1.2-3.4); Lymphocytes % (auto) 11.6 %; Mean Corpuscular Hemoglobin 27.1 pg (25-34); Mean Corpuscular Hgb Conc 30.6 g/dL (32-36); Mean Corpuscular Volume 88.5 fL (80-100); Monocytes # (auto) 0.86 K/uL (0.11-0.59); Monocytes % (auto) 10.7 %; Neutrophils # (auto) 5.93 K/uL (1.4-6.5); Neutrophils % (auto) 74.2 %; Platelet Count 210 K/uL (130-400); RDW Coefficient of Variation 16.1 % (11.5-14.5); RDW Standard Deviation 51.6 fL (36.4-46.3); Red Blood Count 3.21 M/uL (4.2-5.4); White Blood Count 8.01 K/uL (4.8-10.8)
[2021-01-02 08:00] LABS: Albumin Level 2.3 gm/dl (3.4-5.0); BUN Creatinine Ratio 22.9 (10-20); Calcium 8.4 mg/dl (8.5-10.1); Creatinine Clr Calc Pharmacy 14.1 ml/min; Est GFR (African American) 12.2 ml/min; Est GFR (Non-African American) 10.6 ml/min; Potassium 4.4 mmol/L (3.5-5.1)
[2021-01-02 08:01] LABS: Phosphorus 4.1 mg/dl (2.5-4.9)
[2021-01-02] MEDS: METOPROLOL SUCC 25MG EXT REL TAB PO SCH (09:52)
[2021-01-02] MEDS: ISOSORBIDE MONO EXTENDED REL 60 MG TABCR PO SCH (09:52)
[2021-01-02] MEDS: VENLAFAXINE HCL XR 37.5 MG CAPXR PO SCH (09:53)
[2021-01-02] MEDS: amLODIPine BESYLATE 5 MG TAB PO SCH (09:53)
[2021-01-02] MEDS: CEROVITE ADV FORMULA TAB PO SCH (09:53)
[2021-01-02] MEDS: VENLAFAXINE HCL XR 150 MG CAPXR PO SCH (09:53)
[2021-01-02] MEDS: ATORVASTATIN 40 MG TAB PO SCH (09:53)
--- NOTE | 2021-01-02 09:53 | Hospitalist Progress Note ---
Date of Service January 02, 2021 Assessment & Plan (1) Acute exacerbation of CHF (congestive heart failure): Plan: 80yo female with a history of HFrEF, IDDM2, ESRD, multinodular goiter, BL pleural effusions, HLD, HTN, admitted for acute CHF exacerbation, suspected to be secondary to dietary indiscretion. HFrEF exacerbation BNP on admission 17,393 EF 45-50% Echo (10/30) shows EF 45-50%, moderate aortic stenosis, moderate MR, mild LVH Torsemide recently increased to 40mg daily without much improvement Cardiology consulted, follows with Dr. Hamm Nephrology consulted, recommends diuresis (12/31: lasix 40mg IV in AM, bumex 4mg IV in PM) Continue bumetanide. Gan, monitor I/Os. neg 420 balance in last 24hours. Follow daily BMP Hypertension On amlodipine, metoprolol, isosorbide. Consider PO hydralazine for BP control this admission Bradycardia 12/31: 50s most of the day May be 2/2 home metoprolol XL 150mg PO qAM - dose decreased to 75mgs Bilateral pleural effusions Chronic, follows with Dr. Ceja CXR showing BL pleural effusions worse compared to CXR on 12/28 Thoracentesis performed on 01/01 for the right side - plan to repeat procedure on left side on 01/02 Acute Respiratory failure sec to above oxygenating better today after thoracentesis. follow. ESRD Cr 3.87, GFR ~10, approximately baseline not on dialysis but has AV Fistula nephro consult for worsening ESRD, possible need for dialysis CAD Continue metoprolol, isosorbide, aspirin, statin IDDM2 Home regimen held (insulin basaglar 27 units sq PM), continue SSI Hypoglycemic to 63 AM of 12/31. may be 2/2 decreased PO intake overnight during initial admission : per pharmacy recommendation, decreasing lantus to 10u Check BSG ACHS Sacral pressure ulcer Photographed on 01/02 Wound care consult ordered Chronic Anemia Hgb 9.8, baseline 10-11 Follow CBC DVt ppx: heparin sq bid FEn/GI: heart healthy, low sodium Code status: conditional code -- no intubation Dispo: med/tele (2) Hypoxemia: (3) Urinary Incontinence: (4) Ambulatory dysfunction: (5) Type 2 diabetes mellitus with insulin therapy: (6) Multinodular goiter (nontoxic): (7) ESRD (end stage renal disease): (8) Bilateral pleural effusion: (9) Moderate calcific aortic stenosis: (10) Graves disease: (11) Respiratory acidosis: (12) Bradycardia: Admission and Anticipated Discharge Date Admission Date: December 31, 2020 Supervising Physician Co-Signing Physician Notes Resident Physician Supervision Note: I independently interviewed and examined the patient and verified the tinajero history and physical, reviewed labs and image studies and agree with resident Dr. David findings and care plan. Per repeat CXR - right side pleural effusion recurring. to add metolazone. will discuss with nephro as well regarding HD. dietary consult for albumin 2.3 considering CHF - d/c amlodipine and add hydralazine for BP control. Subjective Patient seen and evaluated at bedside this morning. No acute events overnight. Reports breathing has improved after thoracentesis yesterday. Denies pain at this time. Patient has no complaints or concerns this morning. Patient denies CP, abdominal pain, nausea, vomiting, lightheadedness, dizziness, and diarrhea. Review of Systems Review of Systems: See HPI Physical Exam Physical Exam: Constitutional: well-appearing, no acute distress CV: regular rhythm, no murmur appreciated, extremities well-perfused, no LE edema Resp: CTABL, no wheezes/rales/rhonchi appreciated, no increased work of breathing Skin: warm, dry, no rash appreciated Neuro: AOx4, no focal neurological deficits appreciated Results & Data Results & Data ([facility]) Vital Signs (Past 12 Hours) Vital Signs Temp Pulse Pulse Resp BP Pulse Ox 01/02/21 08:12 36.4 C L 60 20 165/78 H 97 01/02/21 04:00 36.4 C L 57 L 18 172/68 H 96 01/01/21 22:55 36.6 C 56 L 20 175/66 H 100 01/01/21 22:20 54 L Resident Activity Tracking Resident Involvement: Resident Care Provided Care Provided: Adult Hospital Medicine (1) Acute exacerbation of CHF (congestive heart failure) Heart failure type: unspecified Qualified Code(s): I50.9 - Heart failure, unspecified
[2021-01-02] MEDS: IRON SUCROSE 200 MG in 0.9 % SODIUM CHLORIDE 100 ML IV SCH (09:55)
--- NOTE | 2021-01-02 10:44 | XRay Report ---
SINGLE VIEW CHEST CLINICAL HISTORY: Dyspnea. FINDINGS: An AP, portable, upright chest radiograph is compared to study dated 01/01/2021. Correlation is made with chest CT dated 10/20/2020. The examination is degraded by portable technique and patient rotation. The heart is mildly enlarged noting atherosclerotic calcification of the thoracic aorta. Pulmonary vascular congestion has modestly worsened from yesterday. There are left larger than right pleural effusions with bibasilar consolidation. No pneumothorax is identified. The skeletal structur es are osteopenic. The bony thorax appears intact. Degenerative change is noted in the shoulders and thoracic spine. IMPRESSION: 1. Cardiomegaly with evidence of congestive failure. This has modestly worsened as compared to yester day. 2. Left larger than right pleural effusions with bibasilar consolidation. ACT 112: Negative or not required by law. Electronically signed by: Isai Baldwin M.D. 01/02/2021 10:43 AM
--- NOTE | 2021-01-02 10:50 | Nephrology Progress Note ---
Date of Service January 02, 2021 Assessment & Plan (1) Acute kidney injury superimposed on chronic kidney disease: (2) CKD (chronic kidney disease): (3) Acute exacerbation of CHF (congestive heart failure): (4) Hypertension, uncontrolled: Plan: M (5) Anemia: Plan: 80-year-old female with CKD IV A3, baseline creatinine has been around 2.5- 3.0, since admission creatinine staying around 3.5. Admitted with volume overload at home was on torsemide 40 mg daily. on admission initially received furosemide 40 mg IV but since yesterday has been getting Bumex 4 mg IV with minimum response with slightly net negative. Approaching the need for HD but no emergent indication at this time. AVF placed on November [address] Gregg, has a good thrill and bruit and may be ready for use though it is still small. Sonam has discussed dialysis in detail with Dr. Spangler and plans to dialyze at [facility] when needed. Renal function relatively stable, suboptimal response to diuretics. Although clinically she does not look like volume overloaded, blood pressure continues to be elevated with significant pulmonary vascular congestion and persistent left pleural effusion. -- Bumex 2 mg IV twice a day, aim for net negative 0.5-1 L/d. probably she will benefit from left-sided thoracentesis. -- She is approaching the need for dialysis. However, emergent HD not indicated. although she has AV fistula, fistula is not ready to be used yet. If she needs dialysis during this admission, will need a tunneled dialysis catheter. -- start on Venofer -- Dose medications for GFR less than 10 will follow Admission and Anticipated Discharge Date Admission Date: December 31, 2020 Subjective Sonam was seen in her room this morning. She reports slight improvement in her breathing. appetite has been poor but she has been trying to eat. Overall net negative almost 2 L since admission. blood pressure remained elevated. Renal function relatively stable with acceptable electrolyte. Review of Systems Review of Systems: Detailed review of system otherwise unremarkable. Physical Exam Constitutional: + ill appearing; no acute distress Neck: normal visual inspection Respiratory: Auscultation: + diminished lung sounds and + rales; no wheezes Cardiovascular: RRR, no murmur, no edema Neurologic: moves all extremities and awake; not confused Psychiatric: A+Ox3, euthymic affect Results & Data ([facility]) Vital Signs (Past 12 Hours) Vital Signs Temp Pulse Resp BP Pulse Ox 01/02/21 08:12 36.4 C L 60 20 165/78 H 97 01/02/21 04:00 36.4 C L 57 L 18 172/68 H 96 01/01/21 22:55 36.6 C 56 L 20 175/66 H 100 PG Care Time/CCT Total # of Minutes Spent Total Time Spent with Patient: Total time spent is greater than 50% in coordination of care (as documented) at patient's floor/unit and/or counseling patient: Coding Level of Care Code 52689 Subseq Hosp Care Lvl 3 Diagnoses Acute kidney injury superimposed on chronic kidney disease N17.9; N18.9 CKD (chronic kidney disease) N18.9 Chronic kidney disease stage: unspecified stage Acute exacerbation of CHF (congestive heart failure) I50.9 Heart failure type: unspecified Hypertension, uncontrolled I10 Anemia D64.9 (1) CKD (chronic kidney disease) Chronic kidney disease stage: unspecified stage Qualified Code(s): N18.9 - Chronic kidney disease, unspecified (2) Acute exacerbation of CHF (congestive heart failure) Heart failure type: unspecified Qualified Code(s): I50.9 - Heart failure, unspecified
[2021-01-02] MEDS: INSULIN ASPART 100 UNITS/ML 3 ML PEN SC SCH ×4 (10:56→20:41)
[2021-01-02] MEDS ORDERED: BUMETANIDE 2 MG in SYRINGE 0 ML IV ONE (11:00)
--- NOTE | 2021-01-02 14:13 | Pulmonology Progress Note ---
Date of Service January 02, 2021 Assessment & Plan (1) Acute exacerbation of CHF (congestive heart failure): Heart failure type: unspecified Qualified Code(s): I50.9 - Heart failure, unspecified (2) Bilateral pleural effusion: (3) Heart failure with mid-range ejection fraction: (4) Acute respiratory failure with hypoxia: (5) Pulmonary nodules: (6) Pulmonary hypertension: Plan: 72-year-old female with a history of diastolic CHF, ESRD, bilateral effusions and diabetes mellitus type 2 presenting to the hospital for shortness of breath. --Bilateral pleural effusion Appreciated on the CT chest 10/20/20 as well as on the chest x-ray 12/30/2020 Etiology is likely patient's underlying CKD as well as diastolic CHF S/p right-sided thoracentesis 01/01/2021, transudative as per lights criteria, Follow-up cytology 2D echo 01/20/2020: EF 45 to 50%, grade 2 diastolic dysfunction, RVSP 40-50 mmHg moderate TR --Acute hypoxic respiratory failure Secondary to fluid overload with bilateral pleural effusion Multifactorial Diastolic as well as systolic CHF is playing a role on top of volume overload from CKD as well as morbid obesity O2 supplementation to keep oxygen saturation between 90-92% --Multiple pulmonary nodules Largest being 8 mm in the right lower lobe followed by 6 mm in the right upper lobe In a patient who is technically a non-smoker which puts her at low risk The likelihood of them being benign is very high. There is a possibility could be an autoimmune process like sarcoidosis but again patient is 79 years old, her labs are within normal limit and she is not symptomatic when it comes to her nodules. Labs 03/09/2020: No lymphopenia, AST, ALT, alk phos within normal limit Calcium high normal. --Pulmonary hypertension Likely type II Continue with treatment for underlying heart failure and CKD --Morbid obesity Advised to lose with a diet and exercise Plan: From today shows reaccumulation of pleural fluid on the right side. I will plan to do thoracentesis on the left side today. Need more aggressive diuresis. Because the effusions will come back even if I take them out Please note the above document was generated using voice recognition software. It may contain grammatical, syntax or spelling errors.Any formal questions or concerns about the content, text or information contained within the body of this dictation should be directly addressed to the provider for clarification. Admission and Anticipated Discharge Date Admission Date: December 31, 2020 Subjective Patient seen and examined at bedside. No acute distress, no adverse events overnight. Patient did complain of right-sided which is not new to her she occasionally gets this. Says the shortness of breath is significantly improved after the thoracentesis Has been urinating with diuresis Denies any abdominal pain Review of Systems Review of Systems: All systems reviewed & are unremarkable except as noted in Subjective Physical Exam Physical Exam: Constitutional: No acute distress HEENT: EOMI, PERRLA Respiratory system: Decreased air entry bilaterally no wheeze, positive crackles bilateral lower lobes, no rhonchi CVS: S1-S2 positive, no murmurs or gallops Abdomen: Soft, nontender, nondistended, positive bowel sounds x4, obese Extremities: +2 pulses bilaterally radialis, no cyanosis, no edema, no clubbing, Dupuytren's contracture appreciated Neuro: Awake alert oriented x3 Psych: Normal mood and affect G/U: Positive Gan Skin: no rashes, warm and dry Lymphatic: no cervical or axillary lymphadenopathy Results & Data Results & Data ([facility]) Vital Signs (Past 12 Hours) Vital Signs Temp Pulse Pulse Resp BP Pulse Ox 01/02/21 12:20 36.8 C 59 L 18 174/74 H 95 01/02/21 09:00 57 L 01/02/21 08:12 36.4 C L 60 20 165/78 H 97 01/02/21 04:00 36.4 C L 57 L 18 172/68 H 96 01/02/21 07:11 01/02/21 07:11 PG Care Time/CCT Total # of Minutes Spent Total Time Spent with Patient: Total time spent is greater than 50% in coordination of care (as documented) at patient's floor/unit and/or counseling patient: Coding Level of Care Code 29391 Subseq Hosp Care Lvl 3 Diagnoses Acute exacerbation of CHF (congestive heart failure) I50.9 Heart failure type: unspecified Bilateral pleural effusion J90 Heart failure with mid-range ejection fraction I50.9 Acute respiratory failure with hypoxia J96.01 Pulmonary nodules R91.8 Pulmonary hypertension I27.20
[2021-01-02] MEDS ORDERED: metOLazone 5 MG TABLET PO ONE (14:23)
[2021-01-02] MEDS ORDERED: metOLazone 2.5 MG TABLET PO ONE (17:45)
--- NOTE | 2021-01-02 18:36 | XRay Report ---
XR chest 1V portable CLINICAL HISTORY: Post Thoracentesis COMPARISON STUDY: Chest radiograph January 02, 2021. FINDINGS: Left pleural effusion has significantly decreased in size since prior exam. Left lung opaci ty has improved. There is no pneumothorax. A right pleural effusion is noted with right basilar opaci ty. Pulmonary edema is again noted. IMPRESSION: 1. Significant decrease in size of the left pleural effusion following thoracentesis. No pneumothorax . 2. Right pleural effusion with right basilar opacity. 3. Pulmonary edema. ACT 112: Negative or not required by law. Electronically signed by: Emigdio Ibrahim M.D. 01/02/2021 6:35 PM
[2021-01-02 19:01] LABS: Glucose Pleural Fluid 126 mg/dl
[2021-01-02 19:07] LABS: Amylase Pleural Fluid 28 U/L; LDH Pleural Fluid 55 U/L
[2021-01-02 19:25] LABS: Albumin Level 2.2 gm/dl (3.4-5.0); Bilirubin,Total 0.2 mg/dl (0.2-1)
[2021-01-02 19:50] LABS: Appearance Pleural Fluid CLOUDY; Basophils, Fluid 0 %; Color Pleural Fluid AMBER; Eosinophils, Fluid 2 %; Lymphocytes, Fluid 44 %; Mono,Macrophage,Mesothelial 52 %; Neutrophils, Fluid 2 %; RBC Pleural Fluid (A) 7000 /uL; Source Pleural Fluid LEFT LUNG; WBC Pleural Fluid (A) 475 /uL
--- NOTE | 2021-01-02 19:56 | Procedure Note ---
Procedure Note Date of Service January 02, 2021 Note Procedure: Diagnostic therapeutic ultrasound-guided catheter thoracentesis Dairy Consultant: Dr. Enzo Ceja Indication: Pleural effusion Consent: Signed by patient and verified with timeout prior to procedure Anesthesia: 1% lidocaine without epinephrine local. Procedure: Consent was verified and timeout performed. Appropriate imaging studies were reviewed prior to the procedure. Patient was placed in a seated position and limited thoracic ultrasound was performed of the left chest. See separate imaging. Appropriate site above the diaphragm for thoracentesis was selected. The skin was prepped and draped in normal sterile fashion. Lidocaine was used for local analgesia. Fluid was aspirated via the finder needle. A small skin parker was made with the scalpel and the catheter over the needle a pparatus was advanced over the rib into the pleural space. Using the syringe one-way valve system, a total of 1500 mL's of dark yellow sanguinous fluid was removed. The catheter was removed and observed to be intact. A sterile dressing was applied. Post procedure chest x-ray was ordered. Fluid was sent for labs, culture and cytology. Complications: None Blood loss: None Coding CPT Codes Pulmonary/Thoracic - Pulmonary and Thoracic: 99661 Thoracentesis w imaging ([id number]) [facility] [place] Codes ([place]es) Pulmonary/Thoracic Procedure 1: Pulmonary and Thoracic: 59182 Thoracentesis w imaging
[2021-01-02] MEDS: hydrALAZINE 10 MG TAB PO SCH (20:43)
[2021-01-02] MEDS: INSULIN GLARGINE SOLOSTAR 100 UNITS/ML 3 ML PEN SQ SCH (20:43)
[2021-01-02] MEDS: BUMETANIDE 2 MG in SYRINGE 0 ML IV SCH (20:44)
[2021-01-03] MEDS ORDERED: hydrALAZINE HCL 20 MG/ML VIAL IV ONE (05:24)
[2021-01-03] MEDS: hydrALAZINE 10 MG TAB PO SCH ×4 (07:38→21:00)
[2021-01-03] MEDS: BUMETANIDE 2 MG in SYRINGE 0 ML IV SCH ×2 (07:39→21:10)
[2021-01-03 08:10] LABS: Basophils # (auto) 0.02 K/uL (0-0.2); Basophils % (auto) 0.2 %; Eosinophils # (auto) 0.25 K/uL (0-0.5); Eosinophils % (auto) 2.9 %; Hematocrit (blood only) 29.4 % (37-47); Hemoglobin 8.9 g/dL (12.0-16.0); Immature Granulocytes # (auto) 0.02 K/uL (0.00-0.02); Immature Granulocytes % (auto) 0.2 %; Lymphocytes # (auto) 1.19 K/uL (1.2-3.4); Lymphocytes % (auto) 13.6 %; Mean Corpuscular Hemoglobin 26.5 pg (25-34); Mean Corpuscular Hgb Conc 30.3 g/dL (32-36); Mean Corpuscular Volume 87.5 fL (80-100); Mean Platelet Volume 9.9 fL (7.4-10.4); Monocytes # (auto) 1.01 K/uL (0.11-0.59); Monocytes % (auto) 11.6 %; Neutrophils # (auto) 6.25 K/uL (1.4-6.5); Neutrophils % (auto) 71.5 %; Platelet Count 251 K/uL (130-400); RDW Coefficient of Variation 16.4 % (11.5-14.5); RDW Standard Deviation 51.8 fL (36.4-46.3); Red Blood Count 3.36 M/uL (4.2-5.4); White Blood Count 8.74 K/uL (4.8-10.8)
--- NOTE | 2021-01-03 08:19 | Hospitalist Progress Note ---
Date of Service January 03, 2021 Assessment & Plan (1) Acute exacerbation of CHF (congestive heart failure): Plan: 80yo female with a history of HFrEF, IDDM2, ESRD, multinodular goiter, BL pleural effusions, HLD, HTN, admitted for acute CHF exacerbation, suspected to be secondary to dietary indiscretion. HFrEF exacerbation BNP on admission 17,393; echo (10/30) shows EF 45-50%, moderate aortic stenosis, moderate MR, mild LVH Torsemide recently increased to 40mg daily without much improvement Nephrology consulted, recommends continued diuresis 01/03: lasix 40mg IV given; if no response by afternoon, will consider bumex 4mg IV and possible gtt Metolazone 5mgs daily added. Gan, strict I/Os, 24 hour balance: -680mL Currently satting well on 6L NC Follow daily BMP Bilateral pleural effusions Chronic, follows with Dr. Ceja CXR showing BL pleural effusions worse compared to CXR on 12/28 Thoracentesis performed on 01/01 for the right side, left side done 01/02 - 1.5L fluid drained (01/02) Thoracentesis fluid transudative per Light's criteria; cytology pending Acute respiratory failure Sec to above Oxygenating better today after thoracentesis x2. follow. ESRD Cr 3.87, GFR ~10, approximately baseline; patient is approaching need for dialysis Has an AV fistula though this is not functioning yet; if patient needs HD she will need a tunneled catheter Per nephrology, no indication for urgent dialysis Plan to receive dialysis at [facility] when needed in the future Hypertension On amlodipine, metoprolol, isosorbide Hydralazine added. Bradycardia: resolved 12/31: 50s most of the day May be 2/2 home metoprolol XL 150mg PO qAM - dose decreased to 75mgs CAD Continue isosorbide, aspirin, statin, metoprolol. IDDM2 Home regimen held (insulin basaglar 27 units sq PM), continue SSI Hypoglycemic to 63 AM of 12/31. may be 2/2 decreased PO intake overnight during initial admission : per pharmacy recommendation, decreasing lantus to 10u Check BSG ACHS Sacral pressure ulcer Photographed on 01/02 Wound care consult ordered Chronic Anemia Hgb 9.8, baseline 10-11 Follow CBC DVt ppx: heparin sq bid FEn/GI: heart healthy, low sodium Code status: conditional code -- no intubation Dispo: med/tele (2) Hypoxemia: (3) Urinary Incontinence: (4) Ambulatory dysfunction: (5) Type 2 diabetes mellitus with insulin therapy: (6) Multinodular goiter (nontoxic): (7) ESRD (end stage renal disease): (8) Bilateral pleural effusion: (9) Moderate calcific aortic stenosis: (10) Graves disease: (11) Respiratory acidosis: (12) Bradycardia: Admission and Anticipated Discharge Date Admission Date: December 31, 2020 Supervising Physician Co-Signing Physician Notes Resident Physician Supervision Note: I independently interviewed and examined the patient and verified the tinajero history and physical, reviewed labs and image studies and agree with resident Dr. David findings and care plan. Subjective Patient seen and evaluated at bedside this morning. No acute events overnight. Patient feels well today and reports continued improvement in her breathing after repeat thoracentesis yesterday. Patient denies CP, nausea, vomiting, lightheadedness, dizziness, and diarrhea. Review of Systems Review of Systems: See HPI Physical Exam Physical Exam: Constitutional: well-appearing, no acute distress CV: regular rhythm, no murmur appreciated, extremities well-perfused, no LE edema Resp: CTABL, no wheezes/rales/rhonchi appreciated, no increased work of breathing, poor air movement Skin: warm, dry, no rash appreciated Neuro: AOx4, no focal neurological deficits appreciated Results & Data Results & Data ([facility]) Vital Signs (Past 12 Hours) Vital Signs Temp Pulse Pulse Resp BP Pulse Ox 01/03/21 07:09 36.4 C L 63 18 175/69 H 100 01/03/21 05:17 63 182/69 H 01/03/21 04:33 36.5 C 65 16 191/62 H 100 01/02/21 23:59 36.9 C 65 18 177/94 H 98 01/02/21 23:42 64 Resident Activity Tracking Resident Involvement: Resident Care Provided Care Provided: Adult Hospital Medicine (1) Acute exacerbation of CHF (congestive heart failure) Heart failure type: unspecified Qualified Code(s): I50.9 - Heart failure, unspecified
[2021-01-03] MEDS: VENLAFAXINE HCL XR 37.5 MG CAPXR PO SCH (08:27)
[2021-01-03] MEDS: CEROVITE ADV FORMULA TAB PO SCH (08:27)
[2021-01-03] MEDS: ISOSORBIDE MONO EXTENDED REL 60 MG TABCR PO SCH (08:28)
[2021-01-03] MEDS: METOPROLOL SUCC 25MG EXT REL TAB PO SCH (08:28)
[2021-01-03] MEDS: VENLAFAXINE HCL XR 150 MG CAPXR PO SCH (08:28)
[2021-01-03] MEDS: ATORVASTATIN 40 MG TAB PO SCH (08:29)
--- NOTE | 2021-01-03 08:30 | XRay Report ---
XR chest 1V portable HISTORY: Status post thoracentesis. Follow-up pleural effusion. COMPARISON: Chest 01/02/2021. FINDINGS: Small left pleural effusion has slightly increased in size. No pneumothorax. A small right pleural effusion and right mid to lower lung zone airspace opacities persist. The heart is mildly enl arged. There is mild pulmonary vascular congestion. IMPRESSION: 1. Slight increase in size in the small left pleural effusion. 2. The small right pleural effusion and right lung airspace opacities persist. 3. Stable mild cardiomegaly and mild congestive change. ACT 112: Negative or not required by law. Electronically signed by: Carlito Eugene M.D. 01/03/2021 8:28 AM
[2021-01-03] MEDS: INSULIN ASPART 100 UNITS/ML 3 ML PEN SC SCH ×4 (08:33→21:06)
[2021-01-03] MEDS: IRON SUCROSE 200 MG in 0.9 % SODIUM CHLORIDE 100 ML IV SCH (08:40)
[2021-01-03 08:41] LABS: Albumin Level 2.3 gm/dl (3.4-5.0); Creatinine Clr Calc Pharmacy 14.8 ml/min; Est GFR (African American) 13.2 ml/min; Est GFR (Non-African American) 11.4 ml/min; Phosphorus 3.8 mg/dl (2.5-4.9); Potassium 4.3 mmol/L (3.5-5.1)
--- NOTE | 2021-01-03 08:58 | Electrocardiogram Report ---
Test Reason : Blood Pressure : / mmHG Vent. Rate : 063 BPM Atrial Rate : 063 BPM P-R Int : 156 ms QRS Dur : 114 ms QT Int : 438 ms P-R-T Axes : 051 019 025 degrees QTc Int : 448 ms Normal sinus rhythm Incomplete left bundle block Minimal voltage criteria for LVH, may be normal variant Poor R-wave progression: anterior MO vs. lead placement vs. LVH Borderline ECG When compared with ECG of 01-JAN-2021 05:16, Poor R-wave progression: anterior MO vs. lead placement vs. LVH is now Present Confirmed by David Watkins ([id number]) on 01/03/2021 8:57:38 AM Referred By: REFERRED SELF Confirmed By:David Watkins
[2021-01-03] MEDS ORDERED: metOLazone 2.5 MG TABLET PO SCH (09:00)
--- NOTE | 2021-01-03 09:32 | Electrocardiogram Report ---
Test Reason : Blood Pressure : / mmHG Vent. Rate : 071 BPM Atrial Rate : 066 BPM P-R Int : 000 ms QRS Dur : 116 ms QT Int : 450 ms P-R-T Axes : 000 008 045 degrees QTc Int : 489 ms Poor data quality, interpretation may be adversely affected Sinus rhythm Left ventricular hypertrophy with QRS widening Cannot rule out Septal infarct (cited on or before 30-DEC-2020) Abnormal ECG When compared with ECG of 30-DEC-2020 23:03, (unconfirmed) No significant change Confirmed by David Watkins ([id number]) on 01/03/2021 9:32:37 AM Referred By: REFERRED SELF Confirmed By:David Watkins
--- NOTE | 2021-01-03 10:28 | Nephrology Progress Note ---
Date of Service January 03, 2021 Assessment & Plan (1) Acute kidney injury superimposed on chronic kidney disease: (2) CKD (chronic kidney disease): (3) Acute exacerbation of CHF (congestive heart failure): (4) Hypertension, uncontrolled: Plan: M (5) Anemia: Plan: 80-year-old female with CKD IV A3, baseline creatinine has been around 2.5- 3.0, since admission creatinine staying around 3.5. Admitted with volume overload at home was on torsemide 40 mg daily. on admission initially received furosemide 40 mg IV but since yesterday has been getting Bumex 4 mg IV with minimum response with slightly net negative. Approaching the need for HD but no emergent indication at this time. AVF placed on November [address] Gregg, has a good thrill and bruit and may be ready for use though it is still small. Sonam has discussed dialysis in detail with Dr. Spangler and plans to dialyze at [facility] when needed. Renal function relatively stable, responding to diuretics. Although clinically she does not look like volume overloaded, blood pressure continues to be elevated with significant pulmonary vascular congestion. Status post thoracentesis on left side however again started to have reaccumulation of pleural effusion specially on the right side. -- continue on Bumex 2 mg IV twice a day, aim for net negative 0.5-1 L/d. Okay to continue on metolazone for now -- She is approaching the need for dialysis. However, emergent HD not indicated. although she has AV fistula, fistula is not ready to be used yet. If she needs dialysis during this admission, will need a tunneled dialysis catheter. -- continue on Venofer -- Dose medications for GFR less than 10 will follow Admission and Anticipated Discharge Date Admission Date: December 31, 2020 Subjective Overall feeling better, denies any shortness of breath. Renal function staying relatively stable, on average has been net negative around 652 ml to 1 L/d. electrolyte acceptable. Blood pressure running high. Review of Systems Review of Systems: Detailed review of system otherwise unremarkable. Physical Exam Constitutional: + ill appearing; no acute distress Neck: normal visual inspection Respiratory: no cough Auscultation: + rales Cardiovascular: RRR, no murmur, no edema Neurologic: moves all extremities; not confused Psychiatric: A+Ox3, euthymic affect Results & Data ([facility]) Vital Signs (Past 12 Hours) Vital Signs Temp Pulse Pulse Resp BP Pulse Ox 01/03/21 07:09 36.4 C L 63 18 175/69 H 100 01/03/21 07:00 61 01/03/21 05:17 63 182/69 H 01/03/21 04:33 36.5 C 65 16 191/62 H 100 01/02/21 23:59 36.9 C 65 18 177/94 H 98 01/02/21 23:42 64 PG Care Time/CCT Total # of Minutes Spent Total Time Spent with Patient: Total time spent is greater than 50% in coordination of care (as documented) at patient's floor/unit and/or counseling patient: Coding Level of Care Code 95181 Subseq Hosp Care Lvl 3 Diagnoses Acute kidney injury superimposed on chronic kidney disease N17.9; N18.9 CKD (chronic kidney disease) N18.9 Chronic kidney disease stage: unspecified stage Acute exacerbation of CHF (congestive heart failure) I50.9 Heart failure type: unspecified Hypertension, uncontrolled I10 Anemia D64.9 (1) CKD (chronic kidney disease) Chronic kidney disease stage: unspecified stage Qualified Code(s): N18.9 - Chronic kidney disease, unspecified (2) Acute exacerbation of CHF (congestive heart failure) Heart failure type: unspecified Qualified Code(s): I50.9 - Heart failure, unspecified
[2021-01-03] MEDS: metOLazone 5 MG TABLET PO SCH (10:31)
[2021-01-03] MEDS: amLODIPine BESYLATE 5 MG TAB PO SCH (10:32)
--- NOTE | 2021-01-03 17:05 | Pulmonology Progress Note ---
Date of Service January 03, 2021 Assessment & Plan (1) Acute exacerbation of CHF (congestive heart failure): Heart failure type: unspecified Qualified Code(s): I50.9 - Heart failure, unspecified (2) Bilateral pleural effusion: (3) Heart failure with mid-range ejection fraction: (4) Acute respiratory failure with hypoxia: (5) Pulmonary nodules: (6) Pulmonary hypertension: Plan: 72-year-old female with a history of diastolic CHF, ESRD, bilateral effusions and diabetes mellitus type 2 presenting to the hospital for shortness of breath. --Bilateral pleural effusion Appreciated on the CT chest 10/20/20 as well as on the chest x-ray 12/30/2020 Etiology is likely patient's underlying CKD as well as diastolic CHF S/p right-sided thoracentesis 01/01/2021, transudative as per lights criteria, 1800 and removed, cytology negative S/p left-sided thoracentesis 01/02/2021, transudative as per lights criteria, 1500 mL removed, follow-up cytology 2D echo 01/20/2020: EF 45 to 50%, grade 2 diastolic dysfunction, RVSP 40-50 mmHg moderate TR --Acute hypoxic respiratory failure Secondary to fluid overload with bilateral pleural effusion Multifactorial Diastolic as well as systolic CHF is playing a role on top of volume overload from CKD as well as morbid obesity O2 supplementation to keep oxygen saturation between 90-92% --Multiple pulmonary nodules Largest being 8 mm in the right lower lobe followed by 6 mm in the right upper lobe In a patient who is technically a non-smoker which puts her at low risk The likelihood of them being benign is very high. There is a possibility could be an autoimmune process like sarcoidosis but again patient is 79 years old, her labs are within normal limit and she is not symptomatic when it comes to her nodules. Labs 03/09/2020: No lymphopenia, AST, ALT, alk phos within normal limit Calcium high normal. --Pulmonary hypertension Likely type II Continue with treatment for underlying heart failure and CKD --Morbid obesity Advised to lose with a diet and exercise Plan: In/out: -943, urine output 1901 Chest x-ray from today shows reaccumulation of the pleural fluid more on the right side. Minimal on the left side. Case was discussed with Dr. Lawrence. I did discuss the need for aggressive diuresis. Unfortunately patient's AV fistula is not yet mature. She is going to try metolazone for couple of days and increase the diuretic. I will add BiPAP as this will help with transmyocardial pressure to help with ejection fraction as well as EPAP will help with lung recruitment. Unfortunately there is not much to offer from pulmonary perspective. If the pleural effusion gets worse we will consider thoracentesis again Case discussed with Dr Haskins. Please call directly with any questions. Please note the above document was generated using voice recognition software. It may contain grammatical, syntax or spelling errors.Any formal questions or concerns about the content, text or information contained within the body of this dictation should be directly addressed to the provider for clarification. Admission and Anticipated Discharge Date Admission Date: December 31, 2020 Subjective Patient seen and is on the bedside. No acute distress, no adverse events overnight. Patient was about to start her physical therapy prior to examination. States that she is feeling better. Has been using incentive spirometry. When he is able to get up to 750-1000 mL. Encouraged to go even higher and aim for at least 2000 mL Has been urinating with the help of diuretics. Fair appetite Denies any chest pain Review of Systems Review of Systems: All systems reviewed & are unremarkable except as noted in Subjective Physical Exam Physical Exam: Constitutional: No acute distress HEENT: EOMI, PERRLA Respiratory system: Decreased air entry bilaterally no wheeze, positive crackles bilateral lower lobes, no rhonchi CVS: S1-S2 positive, no murmurs or gallops Abdomen: Soft, nontender, nondistended, positive bowel sounds x4, obese Extremities: +2 pulses bilaterally radialis, no cyanosis, no edema, no clubbing, Dupuytren's contracture appreciated Neuro: Awake alert oriented x3 Psych: Normal mood and affect G/U: Positive Gan Skin: no rashes, warm and dry Lymphatic: no cervical or axillary lymphadenopathy Results & Data Results & Data ([facility]) Vital Signs (Past 12 Hours) Vital Signs Temp Pulse Pulse Resp BP Pulse Ox 01/03/21 15:25 36.6 C 65 22 175/65 H 99 01/03/21 14:20 64 01/03/21 11:26 36.5 C 62 20 162/64 H 97 01/03/21 07:09 36.4 C L 63 18 175/69 H 100 01/03/21 07:00 61 01/03/21 05:17 63 182/69 H 01/03/21 07:22 01/03/21 07:22 PG Care Time/CCT Total # of Minutes Spent Total Time Spent with Patient: Total time spent is greater than 50% in coordination of care (as documented) at patient's floor/unit and/or counseling patient: Coding Level of Care Code 61597 Subseq Hosp Care Lvl 2 Diagnoses Acute exacerbation of CHF (congestive heart failure) I50.9 Heart failure type: unspecified Bilateral pleural effusion J90 Heart failure with mid-range ejection fraction I50.9 Acute respiratory failure with hypoxia J96.01 Pulmonary nodules R91.8 Pulmonary hypertension I27.20
[2021-01-03] MEDS: INSULIN GLARGINE SOLOSTAR 100 UNITS/ML 3 ML PEN SQ SCH (21:05)
[2021-01-04 08:31] LABS: Basophils # (auto) 0.01 K/uL (0-0.2); Basophils % (auto) 0.1 %; Eosinophils # (auto) 0.36 K/uL (0-0.5); Eosinophils % (auto) 4.7 %; Hematocrit (blood only) 30.6 % (37-47); Hemoglobin 9.6 g/dL (12.0-16.0); Immature Granulocytes # (auto) 0.02 K/uL (0.00-0.02); Immature Granulocytes % (auto) 0.3 %; Lymphocytes # (auto) 1.23 K/uL (1.2-3.4); Mean Corpuscular Hemoglobin 27.4 pg (25-34); Mean Corpuscular Hgb Conc 31.4 g/dL (32-36); Mean Corpuscular Volume 87.2 fL (80-100); Mean Platelet Volume 9.1 fL (7.4-10.4); Monocytes # (auto) 0.93 K/uL (0.11-0.59); Monocytes % (auto) 12.1 %; Neutrophils # (auto) 5.14 K/uL (1.4-6.5); Neutrophils % (auto) 66.8 %; Platelet Count 239 K/uL (130-400); RDW Coefficient of Variation 16.4 % (11.5-14.5); RDW Standard Deviation 51.5 fL (36.4-46.3); Red Blood Count 3.51 M/uL (4.2-5.4); White Blood Count 7.69 K/uL (4.8-10.8)
[2021-01-04 09:06] LABS: Albumin Level 2.3 gm/dl (3.4-5.0); BUN Creatinine Ratio 23.8 (10-20); Calcium 9.4 mg/dl (8.5-10.1); Creatinine Clr Calc Pharmacy 13.6 ml/min; Est GFR (African American) 11.9 ml/min; Est GFR (Non-African American) 10.3 ml/min; Potassium 4.3 mmol/L (3.5-5.1)
[2021-01-04 09:11] LABS: Phosphorus 4.5 mg/dl (2.5-4.9)
[2021-01-04] MEDS: amLODIPine BESYLATE 5 MG TAB PO SCH (09:30)
[2021-01-04] MEDS: METOPROLOL SUCC 25MG EXT REL TAB PO SCH (09:31)
[2021-01-04] MEDS: hydrALAZINE 10 MG TAB PO SCH ×4 (09:31→21:59)
[2021-01-04] MEDS: ATORVASTATIN 40 MG TAB PO SCH (09:31)
[2021-01-04] MEDS: VENLAFAXINE HCL XR 150 MG CAPXR PO SCH (09:31)
[2021-01-04] MEDS: VENLAFAXINE HCL XR 37.5 MG CAPXR PO SCH (09:31)
[2021-01-04] MEDS: metOLazone 5 MG TABLET PO SCH (09:31)
[2021-01-04] MEDS: ISOSORBIDE MONO EXTENDED REL 60 MG TABCR PO SCH (09:31)
[2021-01-04] MEDS: CEROVITE ADV FORMULA TAB PO SCH (09:31)
[2021-01-04] MEDS: INSULIN ASPART 100 UNITS/ML 3 ML PEN SC SCH ×4 (09:32→22:08)
[2021-01-04] MEDS: IRON SUCROSE 200 MG in 0.9 % SODIUM CHLORIDE 100 ML IV SCH (09:37)
--- NOTE | 2021-01-04 10:02 | Hospitalist Progress Note ---
Date of Service January 04, 2021 Assessment & Plan (1) Acute exacerbation of CHF (congestive heart failure): Plan: 80yo female with a history of HFrEF, IDDM2, ESRD, multinodular goiter, BL pleural effusions, HLD, HTN, admitted for acute CHF exacerbation, suspected to be secondary to dietary indiscretion. HFrEF exacerbation BNP on admission 17,393; echo (10/30) shows EF 45-50%, moderate aortic stenosis, moderate MR, mild LVH Torsemide recently increased to 40mg daily without much improvement Nephrology consulted, recommends continued diuresis Continue bumex 2mg IV bid, Metolazone 5mgs daily added. Gan, strict I/Os, 24 hour balance: -870mL Goal to have negative fluid balance of 1000 daily to prevent reaccumulation of pleural effusion. Currently satting well on 6L NC Follow daily BMP Bilateral pleural effusions Chronic, follows with Dr. Ceja CXR showing BL pleural effusions worse compared to CXR on 12/28 Thoracentesis performed on 01/01 for the right side, left side done 01/02 - 1.5L fluid drained (01/02) Thoracentesis fluid transudative per Light's criteria; cytology pending Acute respiratory failure Sec to above Oxygenating better today after thoracentesis x2. follow. ESRD Cr 3.5-4.0, GFR ~10, approximately baseline; patient is approaching need for dialysis Has an AV fistula though this is not functioning yet; if patient needs HD she will need a tunneled catheter Per nephrology, no indication for urgent dialysis Plan to receive dialysis at [facility] when needed in the future Epigastric pain, nausea Started 01/04, suspected to be secondary to GERD Started famotidine; can escalate if needed Continue zofran as-needed Hypertension On amlodipine, metoprolol, isosorbide Hydralazine added. Bradycardia: resolved 12/31: 50s most of the day May be 2/2 home metoprolol XL 150mg PO qAM - dose decreased to 75mgs CAD Continue isosorbide, aspirin, statin, metoprolol. IDDM2 Home regimen held (insulin basaglar 27 units sq PM), continue SSI Hypoglycemic to 63 AM of 12/31. may be 2/2 decreased PO intake overnight during initial admission : per pharmacy recommendation, decreasing lantus to 10u Check BSG ACHS Sacral pressure ulcer Photographed on 01/02 Wound care consulted Chronic Anemia Hgb 9.8, baseline 10-11 Follow CBC DVt ppx: heparin sq bid FEn/GI: heart healthy, low sodium Code status: conditional code -- no intubation Dispo: med/tele (2) Hypoxemia: (3) Urinary Incontinence: (4) Ambulatory dysfunction: (5) Type 2 diabetes mellitus with insulin therapy: (6) Multinodular goiter (nontoxic): (7) ESRD (end stage renal disease): (8) Bilateral pleural effusion: (9) Moderate calcific aortic stenosis: (10) Graves disease: (11) Respiratory acidosis: (12) Bradycardia: Admission and Anticipated Discharge Date Admission Date: December 31, 2020 Supervising Physician Co-Signing Physician Notes Resident Physician Supervision Note: I independently interviewed and examined the patient and verified the tinajero history and physical, reviewed labs and image studies and agree with resident Dr. David findings and care plan. Subjective Patient seen and evaluated at bedside this morning. No acute events overnight. This morning patient endorses some mild epigastric pain and nausea which she suspects is due to acid reflux. Shortness of breath is about the same as yesterday. No other acute complaints at this time. Patient denies vomiting, lightheadedness, dizziness, and diarrhea. Review of Systems Review of Systems: See HPI Physical Exam Physical Exam: Constitutional: well-appearing, no acute distress CV: regular rhythm, no murmur appreciated, extremities well-perfused, no LE edema Resp: CTABL, no wheezes/rales/rhonchi appreciated, no increased work of breathing, poor air movement Abd: soft, nondistended, minimal tenderness of LLQ, nontender elsewhere including epigastrium Skin: warm, dry, no rash appreciated Neuro: AOx4, no focal neurological deficits appreciated Results & Data Results & Data ([facility]) Vital Signs (Past 12 Hours) Vital Signs Temp Pulse Pulse Resp BP Pulse Ox 01/04/21 08:02 36.5 C 63 18 170/84 H 93 01/04/21 07:32 63 01/04/21 04:00 36.6 C 66 18 177/70 H 97 01/04/21 00:16 63 01/04/21 00:09 36.6 C 65 18 168/69 H 94 Resident Activity Tracking Resident Involvement: Resident Care Provided Care Provided: Adult Hospital Medicine (1) Acute exacerbation of CHF (congestive heart failure) Heart failure type: unspecified Qualified Code(s): I50.9 - Heart failure, unspecified
--- NOTE | 2021-01-04 10:37 | Cardiology Progress Note ---
Date of Service January 04, 2021 Assessment & Plan (1) Acute exacerbation of CHF (congestive heart failure): (2) CKD (chronic kidney disease): (3) Cardiomyopathy: (4) Moderate calcific aortic stenosis: Plan: 1. Congestive heart failure: She seems to be gradually improving, she has lost about 5 kg since presentation. Her kidney function is more or less stable so I would continue with diuresis. 2. Chronic kidney disease: She has significant kidney disease, so far she has been diuresing and her creatinine has not been significantly rising. 3. Cardiomyopathy: She has a mild cardiomyopathy, I doubt that has much to do with her presentation but it may be contributory to her fluid management. 4. Aortic stenosis: She has aortic stenosis which was recently evaluated, again that is not likely to be a major cause of her presentation although it could also contribute somewhat. Admission and Anticipated Discharge Date Admission Date: December 31, 2020 Subjective She was difficult to arouse this morning but once awake did not have any specific complaints other than being tired. No shortness of breath when she was lying supine. Physical Exam Physical Exam: Constitutional: Alert, cooperative and in mild respiratory distress. HEENT: Unremarkable Neck: No jugular venous distention, carotid pulses are normal and equal bilaterally without bruits. Pulmonary: Decreased breath sounds at bases bilaterally. Cardiac: Regular rhythm with a grade 2/6 crescendo decrescendo murmur at the base, a grade 2/6 holosystolic murmur at the apex, no gallop or rub. Abdomen: Soft, nontender with normal bowel sounds. Extremities: +2-3 bilateral pretibial edema. Distal pulses intact. Neurologic: No focal findings. Gait was not tested. Skin: No rash, ecchymoses or petechiae. Results & Data ([place]) Vital Signs (Past 12 Hours) Vital Signs Temp Pulse Pulse Resp BP Pulse Ox 01/04/21 08:02 36.5 C 63 18 170/84 H 93 01/04/21 07:32 63 01/04/21 04:00 36.6 C 66 18 177/70 H 97 01/04/21 00:16 63 01/04/21 00:09 36.6 C 65 18 168/69 H 94 Laboratory Results CBC 01/04/21 Range/Units 08:12 WBC 7.69 (4.8-10.8) K/uL RBC 3.51 L (4.2-5.4) M/uL Hgb 9.6 L (12.0-16.0) g/dL Hct 30.6 L (37-47) % Plt Count 239 (130-400) K/uL Neut # (Auto) 5.14 (1.4-6.5) K/uL Lymph # (Auto) 1.23 (1.2-3.4) K/uL [place] # (Auto) 0.93 H (0.11-0.59) K/uL Eos # (Auto) 0.36 (0-0.5) K/uL Baso # (Auto) 0.01 (0-0.2) K/uL Comprehensive Metabolic Panel 01/04/21 Range/Units 08:12 Sodium 140 (136-145) mmol/L Potassium 4.3 (3.5-5.1) mmol/L Chloride 104 (98-107) mmol/L Carbon Dioxide 30 (21-32) mmol/L BUN 94 H (7-18) mg/dl Creatinine 3.94 H D (0.6-1.2) mg/dl Glucose 97 (70-99) mg/dl Calcium 9.4 (8.5-10.1) mg/dl Albumin 2.3 L (3.4-5.0) gm/dl Intake and Output 01/03/21 01/04/21 01/04/21 22:59 06:59 14:59 Intake Total 420 / 1108 100 / 1108 110 / 110 Output Total 400 / 1900 800 / 1900 Balance 20 / -792 -700 / -792 110 / 110 Intake: IV 110 / 110 Iron Sucrose 200 mg In 0.9 % 110 / 110 Sodium Chloride 100 ml @ 200 mls/hr IV DAILY [facility] Rx#: [id number] Oral 420 / 998 100 / 998 Output: Urine Amount (Catheter) 400 / 1900 800 / 1900 Gan/Indwelling 400 / 1900 800 / 1900 Other: Weight 93.6 kg Weight Measurement Method Built in [facility] Diagnostic Findings Telemetry: Sinus rhythm generally in the 60s, no significant arrhythmia PG Care Time/CCT Total # of Minutes Spent Total Time Spent with Patient: Total time spent is greater than 50% in coordination of care (as documented) at patient's floor/unit and/or counseling patient: Coding Level of Care Code 84167 Subseq Hosp Care Lvl 2 Diagnoses Acute exacerbation of CHF (congestive heart failure) I50.9 Heart failure type: unspecified CKD (chronic kidney disease) N18.9 Chronic kidney disease stage: unspecified stage Cardiomyopathy I42.9 Cardiomyopathy type: unspecified Moderate calcific aortic stenosis I35.0 (1) Acute exacerbation of CHF (congestive heart failure) Heart failure type: unspecified Qualified Code(s): I50.9 - Heart failure, unspecified (2) CKD (chronic kidney disease) Chronic kidney disease stage: unspecified stage Qualified Code(s): N18.9 - Chronic kidney disease, unspecified (3) Cardiomyopathy Cardiomyopathy type: unspecified Qualified Code(s): I42.9 - Cardiomyopathy, unspecified
--- NOTE | 2021-01-04 10:41 | Nephrology Progress Note ---
Date of Service January 04, 2021 Assessment & Plan (1) Acute kidney injury superimposed on chronic kidney disease: (2) CKD (chronic kidney disease): (3) Acute exacerbation of CHF (congestive heart failure): (4) Hypertension, uncontrolled: Plan: M (5) Anemia: Plan: 80-year-old female with CKD IV A3, baseline creatinine has been around 2.5-3.0, since admission creatinine staying around 3.5. Admitted with volume overload at home was on torsemide 40 mg daily. on admission initially received furosemide 40 mg IV but since yesterday has been getting Bumex 4 mg IV with minimum response with slightly net negative. Approaching the need for HD but no emergent indication at this time. AVF placed on November [address] Gregg, has a good thrill and bruit and may be ready for use though it is still small. Sonam has discussed dialysis in detail with Dr. Spangler and plans to dialyze at [facility] when needed. Renal function relatively stable, responding to diuretics. Although clinically she does not look like volume overloaded, blood pressure continues to be elevated with significant pulmonary vascular congestion. Status post thoracentesis on left side however again started to have reaccumulation of pleural effusion specially on the right side. -- continue on Bumex 2 mg IV twice a day, and metolazone current dose for now, aim for net negative 0.5-1 L/d. -- concern for possible need for dialysis in near future, continue to monitor renal function and volume status, probably she will need tunneled dialysis catheter. will keep NPO post midnight in case renal function progressively worsened and need to start on dialysis in next 24 hours -- continue on Venofer -- Dose medications for GFR less than 10 will follow Admission and Anticipated Discharge Date Admission Date: December 31, 2020 Subjective Sonam feeling nauseous this morning, started after she had breakfast. Denies fever, chills, abdominal pain or diarrhea. She was net negative almost 800 mL. blood pressure remains slightly elevated. Denies any significant respiratory distress although chest x-ray from yesterday showed reaccumulating bilateral pleural effusion. Renal function worsened with both BUN creatinine elevated, other electrolyte relatively acceptable. Review of Systems Review of Systems: Detailed review of system otherwise unremarkable. Physical Exam Constitutional: + ill appearing; no acute distress Neck: normal visual inspection Respiratory: no cough Auscultation: + diminished lung sounds and + rales; no wheezes Cardiovascular: RRR, no murmur, no edema Neurologic: awake; not confused Psychiatric: A+Ox3, euthymic affect Results & Data ([facility]) Vital Signs (Past 12 Hours) Vital Signs Temp Pulse Pulse Resp BP Pulse Ox 01/04/21 08:02 36.5 C 63 18 170/84 H 93 01/04/21 07:32 63 01/04/21 04:00 36.6 C 66 18 177/70 H 97 01/04/21 00:16 63 01/04/21 00:09 36.6 C 65 18 168/69 H 94 PG Care Time/CCT Total # of Minutes Spent Total Time Spent with Patient: Total time spent is greater than 50% in coordination of care (as documented) at patient's floor/unit and/or counseling patient: Coding Level of Care Code 77195 Subseq Hosp Care Lvl 3 Diagnoses Acute kidney injury superimposed on chronic kidney disease N17.9; N18.9 CKD (chronic kidney disease) N18.9 Chronic kidney disease stage: unspecified stage Acute exacerbation of CHF (congestive heart failure) I50.9 Heart failure type: unspecified Hypertension, uncontrolled I10 Anemia D64.9 (1) CKD (chronic kidney disease) Chronic kidney disease stage: unspecified stage Qualified Code(s): N18.9 - Chronic kidney disease, unspecified (2) Acute exacerbation of CHF (congestive heart failure) Heart failure type: unspecified Qualified Code(s): I50.9 - Heart failure, unspecified
[2021-01-04] MEDS: BUMETANIDE 2 MG in SYRINGE 0 ML IV SCH ×2 (10:50→22:02)
[2021-01-04] MEDS: FAMOTIDINE 20 MG TAB PO SCH ×2 (10:50→22:00)
[2021-01-04] MEDS: INSULIN GLARGINE SOLOSTAR 100 UNITS/ML 3 ML PEN SQ SCH (22:08)
[2021-01-05] MEDS ORDERED: hydrALAZINE HCL 20 MG/ML VIAL IV ONE (06:15)
--- NOTE | 2021-01-05 07:01 | Hospitalist Progress Note ---
Date of Service January 05, 2021 Assessment & Plan (1) Acute exacerbation of CHF (congestive heart failure): Plan: 80yo female with a history of HFrEF, IDDM2, ESRD, multinodular goiter, BL pleural effusions, HLD, HTN, admitted for acute CHF exacerbation, suspected to be secondary to dietary indiscretion. Acute on chronic ystolic heart failure HFrEF exacerbation BNP on admission 17,393; echo (10/30) shows EF 45-50%, moderate aortic stenos is, moderate MR, mild LVH Torsemide was recently increased to 40mg daily without much improvement Nephrology recommends continued diuresis Continue bumex 2mg IV bid Metolazone 5mgs daily added. Gan, strict I/Os, 24 hour balance: -850mL Goal to have negative fluid balance of 1000 daily to prevent reaccumulation of pleural effusion. Currently satting well on 2L NC Follow daily BMP Bilateral pleural effusions Chronic, follows with Dr. Ceja CXR showing BL pleural effusions worse compared to CXR on 12/28 Thoracentesis performed on 01/01 for the right side, left side done 01/02 - 1.5L fluid drained (01/02) Thoracentesis fluid transudative per Light's criteria; cytology pending Acute respiratory failure Sec to above Oxygenating better today after thoracentesis x2. follow. Hypertension On amlodipine, metoprolol, isosorbide Hydralazine 25mg tid added for persistently elevated BP despite net negative fluid balance and overall improvement in volume status Obtaining renal artery doppler ESRD Cr 3.5-4.0, GFR ~10, approximately baseline; patient is approaching need for dialysis Has an AV fistula though this is not functioning yet; if patient needs HD she will need a tunneled catheter Per nephrology, no indication for urgent dialysis Plan to receive dialysis at [facility] when needed in the future Epigastric pain, nausea Started 01/04, suspected to be secondary to GERD Started famotidine; can escalate if needed Continue zofran as-needed Bradycardia: resolved 12/31: 50s most of the day May be 2/2 home metoprolol XL 150mg PO qAM - dose decreased to 75mgs CAD Continue isosorbide, aspirin, statin, metoprolol. IDDM2 Home regimen held (insulin basaglar 27 units sq PM), continue SSI Hypoglycemic to 63 AM of 12/31. may be 2/2 decreased PO intake overnight during initial admission : per pharmacy recommendation, decreasing lantus to 10u Check BSG ACHS Sacral pressure ulcer Photographed on 01/02 Wound care consulted Chronic Anemia Hgb 9.8, baseline 10-11 Follow CBC DVt ppx: heparin sq bid FEn/GI: heart healthy, low sodium Code status: conditional code -- no intubation Dispo: med/tele (2) Hypoxemia: (3) Urinary Incontinence: (4) Ambulatory dysfunction: (5) Type 2 diabetes mellitus with insulin therapy: (6) Multinodular goiter (nontoxic): (7) ESRD (end stage renal disease): (8) Bilateral pleural effusion: (9) Moderate calcific aortic stenosis: (10) Graves disease: (11) Respiratory acidosis: (12) Bradycardia: Admission and Anticipated Discharge Date Admission Date: December 31, 2020 Supervising Physician Co-Signing Physician Notes Resident Physician Supervision Note: I independently interviewed and examined the patient and verified the tinajero history and physical, reviewed labs and image studies and agree with resident Dr. David findings and care plan. Subjective Patient seen and evaluated at bedside this morning. No acute events overnight. Patient feels alright this morning and has no acute complaints. SOB a bit improved compared to yesterday. Patient denies nausea, vomiting, lightheadedness, dizziness, and diarrhea. Review of Systems Review of Systems: See HPI Results & Data Results & Data ([facility]) Vital Signs (Past 12 Hours) Vital Signs Temp Pulse Pulse Resp BP Pulse Ox 01/05/21 05:23 36.8 C 60 18 189/49 H 98 01/04/21 23:16 64 01/04/21 22:04 36.6 C 18 187/70 H 99 01/04/21 20:28 36.7 C 68 18 151/70 H 91 Resident Activity Tracking Resident Involvement: Resident Care Provided Care Provided: Adult Hospital Medicine (1) Acute exacerbation of CHF (congestive heart failure) Heart failure type: unspecified Qualified Code(s): I50.9 - Heart failure, unspecified
[2021-01-05 07:27] LABS: Basophils # (auto) 0.04 K/uL (0-0.2); Basophils % (auto) 0.7 %; Eosinophils # (auto) 0.29 K/uL (0-0.5); Eosinophils % (auto) 4.8 %; Hematocrit (blood only) 29.3 % (37-47); Hemoglobin 8.9 g/dL (12.0-16.0); Immature Granulocytes # (auto) 0.02 K/uL (0.00-0.02); Immature Granulocytes % (auto) 0.3 %; Lymphocytes # (auto) 1.03 K/uL (1.2-3.4); Lymphocytes % (auto) 17.2 %; Mean Corpuscular Hemoglobin 26.6 pg (25-34); Mean Corpuscular Hgb Conc 30.4 g/dL (32-36); Mean Corpuscular Volume 87.5 fL (80-100); Mean Platelet Volume 9.4 fL (7.4-10.4); Monocytes # (auto) 0.63 K/uL (0.11-0.59); Monocytes % (auto) 10.5 %; Neutrophils # (auto) 3.98 K/uL (1.4-6.5); Neutrophils % (auto) 66.5 %; Platelet Count 249 K/uL (130-400); RDW Coefficient of Variation 16.4 % (11.5-14.5); RDW Standard Deviation 52.1 fL (36.4-46.3); Red Blood Count 3.35 M/uL (4.2-5.4); White Blood Count 5.99 K/uL (4.8-10.8)
[2021-01-05 08:17] LABS: Albumin Level 2.2 gm/dl (3.4-5.0); BUN Creatinine Ratio 23.1 (10-20); Calcium 9.3 mg/dl (8.5-10.1); Creatinine Clr Calc Pharmacy 13.1 ml/min; Est GFR (African American) 11.5 ml/min; Est GFR (Non-African American) 9.9 ml/min; Potassium 4.2 mmol/L (3.5-5.1)
[2021-01-05] MEDS: INSULIN ASPART 100 UNITS/ML 3 ML PEN SC SCH ×4 (09:15→21:43)
[2021-01-05] MEDS: ATORVASTATIN 40 MG TAB PO SCH (09:39)
[2021-01-05] MEDS: ISOSORBIDE MONO EXTENDED REL 60 MG TABCR PO SCH (09:40)
[2021-01-05] MEDS: VENLAFAXINE HCL XR 150 MG CAPXR PO SCH (09:41)
[2021-01-05] MEDS: VENLAFAXINE HCL XR 37.5 MG CAPXR PO SCH (09:42)
[2021-01-05] MEDS: CEROVITE ADV FORMULA TAB PO SCH (09:43)
[2021-01-05] MEDS: FAMOTIDINE 20 MG TAB PO SCH ×2 (09:43→20:46)
[2021-01-05] MEDS: BUMETANIDE 2 MG in SYRINGE 0 ML IV SCH ×2 (09:44→20:45)
[2021-01-05] MEDS: metOLazone 5 MG TABLET PO SCH (09:49)
[2021-01-05] MEDS: amLODIPine BESYLATE 5 MG TAB PO SCH (09:49)
[2021-01-05] MEDS: METOPROLOL SUCC 25MG EXT REL TAB PO SCH (09:49)
[2021-01-05] MEDS: IRON SUCROSE 200 MG in 0.9 % SODIUM CHLORIDE 100 ML IV SCH (09:53)
[2021-01-05] MEDS: hydrALAZINE HCL 25 MG TAB PO SCH ×3 (10:01→20:46)
[2021-01-05] MEDS: hydrALAZINE 10 MG TAB PO SCH (10:23)
--- NOTE | 2021-01-05 10:30 | Nephrology Progress Note ---
Date of Service January 05, 2021 Assessment & Plan (1) Acute kidney injury superimposed on chronic kidney disease: (2) CKD (chronic kidney disease): (3) Acute exacerbation of CHF (congestive heart failure): (4) Hypertension, uncontrolled: Plan: M (5) Anemia: Plan: 80-year-old female with CKD IV A3, baseline creatinine has been around 2.5-3.0, since admission creatinine staying around 3.5. Admitted with volume overload at home was on torsemide 40 mg daily. on admission initially received furosemide 40 mg IV but since yesterday has been getting Bumex 4 mg IV with minimum response with slightly net negative. Approaching the need for HD but no emergent indication at this time. AVF placed on November [address] Gregg, has a good thrill and bruit and may be ready for use though it is still small. Sonam has discussed dialysis in detail with Dr. Spangler and plans to dialyze at [facility] when needed. Renal function relatively stable, responding to diuretics. Although clinically she does not look like volume overloaded, blood pressure continues to be elevated with significant pulmonary vascular congestion. Status post thoracentesis on left side however again started to have reaccumulation of pleural effusion specially on the right side. Renal function staying relatively stable without any significant worsening, electrolyte acceptable. Persistently net negative around 700-900 mL/ day and total 4.5 L net negative. -- continue on Bumex 2 mg IV twice a day, and metolazone current dose for now, aim for net negative 0.5-1 L/d. -- concern for possible need for dialysis in near future, continue to monitor renal function and volume status, probably she will need tunneled dialysis catheter. No indication for dialysis today. -- Start on hydralazine 25 mg t.i.d., as blood pressure persistently elevated despite being net negative an overall improvement in volume status, will get renal artery Doppler -- continue on Venofer -- Dose medications for GFR less than 10 will follow Admission and Anticipated Discharge Date Admission Date: December 31, 2020 Subjective Sonam denies any specific symptoms this morning, she slept well, lying flat in bed. Denies fever, chills, abdominal pain or diarrhea. She was net negative >800 mL. blood pressure remains elevated although overall she has been net negative 4.5 L. Renal function staying relatively stable although certainly off of her baseline, other electrolyte relatively acceptable. no overt uremic symptoms. Review of Systems Review of Systems: Detailed review of system otherwise unremarkable. Physical Exam Constitutional: no acute distress Neck: normal visual inspection Respiratory: no cough Auscultation: + diminished lung sounds; no wheezes Cardiovascular: RRR, no murmur, no edema Neurologic: awake; not confused Psychiatric: A+Ox3, euthymic affect Results & Data ([facility]) Vital Signs (Past 12 Hours) Vital Signs Temp Pulse Pulse Resp BP Pulse Ox 01/05/21 09:54 36.5 C 67 18 183/77 H 96 01/05/21 05:23 36.8 C 60 18 189/49 H 98 01/04/21 23:16 64 PG Care Time/CCT Total # of Minutes Spent Total Time Spent with Patient: Total time spent is greater than 50% in coordination of care (as documented) at patient's floor/unit and/or counseling patient: Coding Level of Care Code 75405 Subseq Hosp Care Lvl 3 Diagnoses Acute kidney injury superimposed on chronic kidney disease N17.9; N18.9 CKD (chronic kidney disease) N18.9 Chronic kidney disease stage: unspecified stage Acute exacerbation of CHF (congestive heart failure) I50.9 Heart failure type: unspecified Hypertension, uncontrolled I10 Anemia D64.9 (1) CKD (chronic kidney disease) Chronic kidney disease stage: unspecified stage Qualified Code(s): N18.9 - Chronic kidney disease, unspecified (2) Acute exacerbation of CHF (congestive heart failure) Heart failure type: unspecified Qualified Code(s): I50.9 - Heart failure, unspecified
--- NOTE | 2021-01-05 17:45 | Ultrasound Report ---
US duplex renal artery CLINICAL HISTORY: Kidney injury, hypertensive urgency COMPARISON STUDY: None. FINDINGS: The right kidney measures 10.2 cm and the left kidney measures 9.6 cm. The bilateral renal veins are patent. No elevated resistive indices within the renal arcuate arteries. Peak velocity with in the right renal artery was 57 cm/s in the left renal artery was 76 cm/s. IMPRESSION: No evidence for renal artery stenosis. ACT 112: Negative or not required by law. Electronically signed by: Carlito Eugene M.D. 01/05/2021 5:44 PM
[2021-01-05] MEDS: INSULIN GLARGINE SOLOSTAR 100 UNITS/ML 3 ML PEN SQ SCH (21:42)
--- NOTE | 2021-01-06 06:13 | Hospitalist Progress Note ---
Date of Service January 06, 2021 Assessment & Plan (1) Acute exacerbation of CHF (congestive heart failure): Plan: 80yo female with a history of HFrEF, IDDM2, ESRD, multinodular goiter, BL pleural effusions, HLD, HTN, admitted for acute CHF exacerbation, suspected to be secondary to dietary indiscretion. Acute on chronic systolic heart failure / HFrEF exacerbation -- Fluid status greatly improving, no longer requiring supplemental O2 BNP on admission 17,393; echo (10/30) shows EF 45-50%, moderate aortic stenosis, moderate MR, mild LVH Torsemide was previously increased to 40mg daily without much improvement Nephrology recommends continued diuresis Initiate oral Bumex: 2mg b.i.d. Stop metolazone Gan, strict I/Os, 24 hour balance -- aim between 0.5 - 1.0 cc/kg/hr: currently achieving Goal to have negative fluid balance of 1000 daily to prevent reaccumulation of pleural effusion. Follow daily BMP Bilateral pleural effusions Chronic, follows with Dr. Ceja CXR showing BL pleural effusions worse compared to CXR on 12/28 Thoracentesis performed on 01/01 for the right side, left side done 01/02 - 1.5L fluid drained (01/02) Thoracentesis fluid transudative per Light's criteria No need for further thoracentesis at present Acute hypoxic respiratory failure Sec to above Greatly improving with diuresis -- now stable on RA Oxygenating well following thoracentesis, diuresis: O2 requirement decreasing Hypertension On amlodipine, metoprolol, isosorbide Increase hydralazine: 50mg PO t.i.d. per nephrology Renal doppler without stenosis. ESRD Cr 3.5-4.0, GFR ~10, approximately baseline; patient is approaching need for dialysis Creatinine increasing (4.1) following diuretic therapy Has an AV fistula though this is not functioning yet; if patient needs HD she will need a tunneled catheter Per nephrology, no indication for urgent dialysis Plan to receive dialysis at [facility] when needed in the future Epigastric pain, nausea Started 01/04, suspected to be secondary to GERD Started famotidine; can escalate if needed Continue zofran as-needed Bradycardia: resolved 12/31: 50s most of the day May be 2/2 home metoprolol XL 150mg PO qAM - dose decreased to 75mgs CAD Continue isosorbide, aspirin, statin, metoprolol. IDDM2 Home regimen held (insulin basaglar 27 units sq PM), continue SSI Hypoglycemic to 63 AM of 12/31. may be 2/2 decreased PO intake overnight during initial admission : per pharmacy recommendation, Lantus decreased to 10U Check BSG ACHS Sacral pressure ulcer Photographed on 01/02 Wound care consulted Chronic Anemia Hgb 9.8, baseline 10-11 s/p Venofer infusion Follow CBC DVt ppx: heparin sq bid FEn/GI: heart healthy, low sodium Code status: conditional code -- no intubation Dispo: med/tele, possible d/c tomorrow (2) Hypoxemia: (3) Urinary Incontinence: (4) Ambulatory dysfunction: (5) Type 2 diabetes mellitus with insulin therapy: (6) Multinodular goiter (nontoxic): (7) ESRD (end stage renal disease): (8) Bilateral pleural effusion: (9) Moderate calcific aortic stenosis: (10) Graves disease: (11) Respiratory acidosis: (12) Bradycardia: Admission and Anticipated Discharge Date Admission Date: December 31, 2020 Supervising Physician Co-Signing Physician Notes Resident Physician Supervision Note: I independently interviewed and examined the patient and verified the tinajero history and physical, reviewed labs and image studies and agree with resident Dr. Andres findings and care plan. Subjective No acute events overnight. Compared to when she entered the hospital, she reports feeling much better. Breathing easier and much more comfortably. She denies any pain. Denies any chest pain, palpitations. Denies cough. Denies night sweats or chills. She is eager to leave the hospital. Review of Systems Review of Systems: As per HPI Physical Exam Physical Exam: General: Tired but well-appearing 80-year-old female is lying back in her hospital bed relaxed upon my arrival. She converses freely and is in no acute distress. HEENT: NCAT. Eyes - Sclera are white, anicteric, and without injection. PERRL. Mucous membranes are moist. Cardiac: Normal rate and regular rhythm; S1 and S2 present with no murmurs, rubs, or gallops. Pulmonary: Good respiratory effort with symmetric expansion of the chest. No use of accessory muscles. Lungs demonstrated diminished sounds throughout. Abdominal: Normoactive bowel sounds. Abdomen was soft, nondistended, and non- tender to palpation. Extremities: Upper and lower extremities are warm and well perfused. Radial and dorsalis pedis pulses were 2+ b/l. There is trace pitting edema in the lower extremities bilaterally. Results & Data Results & Data ([facility]) Vital Signs (Past 12 Hours) Vital Signs Temp Pulse Pulse Resp BP Pulse Ox 01/06/21 04:05 36.6 C 64 18 185/68 H 94 01/06/21 00:52 64 01/06/21 00:00 36.3 C L 68 20 195/68 H 91 01/05/21 19:35 36.5 C 56 L 20 145/50 H 92 Resident Activity Tracking Resident Involvement: Resident Care Provided Care Provided: Adult Hospital Medicine (1) Acute exacerbation of CHF (congestive heart failure) Heart failure type: unspecified Qualified Code(s): I50.9 - Heart failure, unspecified
[2021-01-06 07:53] LABS: Basophils % (auto) 0.3 %; Eosinophils % (auto) 5.9 %; Hematocrit (blood only) 32.7 % (37-47); Immature Granulocytes % (auto) 0.3 %; Lymphocytes % (auto) 15.5 %; Mean Corpuscular Hemoglobin 26.9 pg (25-34); Mean Corpuscular Hgb Conc 30.6 g/dL (32-36); Mean Corpuscular Volume 87.9 fL (80-100); Mean Platelet Volume 9.1 fL (7.4-10.4); Monocytes % (auto) 12.4 %; Neutrophils # (auto) 4.23 K/uL (1.4-6.5); Neutrophils % (auto) 65.6 %; Platelet Count 283 K/uL (130-400); RDW Coefficient of Variation 16.3 % (11.5-14.5); RDW Standard Deviation 51.4 fL (36.4-46.3); Red Blood Count 3.72 M/uL (4.2-5.4); White Blood Count 6.45 K/uL (4.8-10.8)
[2021-01-06 07:54] LABS: Basophils # (auto) 0.02 K/uL (0-0.2); Eosinophils # (auto) 0.38 K/uL (0-0.5); Immature Granulocytes # (auto) 0.02 K/uL (0.00-0.02)
[2021-01-06 08:14] LABS: Albumin Level 2.4 gm/dl (3.4-5.0); BUN Creatinine Ratio 23.2 (10-20); Calcium 9.5 mg/dl (8.5-10.1); Creatinine Clr Calc Pharmacy 12.9 ml/min; Est GFR (African American) 11.2 ml/min; Est GFR (Non-African American) 9.6 ml/min; Phosphorus 4.9 mg/dl (2.5-4.9); Potassium 4.3 mmol/L (3.5-5.1)
[2021-01-06] MEDS: BUMETANIDE 2 MG in SYRINGE 0 ML IV SCH (08:49)
[2021-01-06] MEDS: hydrALAZINE HCL 25 MG TAB PO SCH (08:49)
[2021-01-06] MEDS: VENLAFAXINE HCL XR 150 MG CAPXR PO SCH (08:50)
[2021-01-06] MEDS: metOLazone 5 MG TABLET PO SCH (08:50)
[2021-01-06] MEDS: ISOSORBIDE MONO EXTENDED REL 60 MG TABCR PO SCH (08:50)
[2021-01-06] MEDS: CEROVITE ADV FORMULA TAB PO SCH (08:50)
[2021-01-06] MEDS: VENLAFAXINE HCL XR 37.5 MG CAPXR PO SCH (08:50)
[2021-01-06] MEDS: FAMOTIDINE 20 MG TAB PO SCH ×2 (08:50→20:44)
[2021-01-06] MEDS: amLODIPine BESYLATE 5 MG TAB PO SCH (08:50)
[2021-01-06] MEDS: ATORVASTATIN 40 MG TAB PO SCH (08:50)
[2021-01-06] MEDS: INSULIN ASPART 100 UNITS/ML 3 ML PEN SC SCH ×4 (08:51→20:45)
[2021-01-06] MEDS: METOPROLOL SUCC 25MG EXT REL TAB PO SCH (08:51)
--- NOTE | 2021-01-06 11:09 | Nephrology Progress Note ---
Date of Service January 06, 2021 Assessment & Plan (1) Acute kidney injury superimposed on chronic kidney disease: Plan: * Admitted w/ CHF. Cr has risen to 4.1 following diuretic therapy * No uremic symptoms. No acute indication for HD today. AVF is not yet mature for use (2) CKD (chronic kidney disease): Plan: * Baseline Cr has been ~ 3.5 w/ EGFR 10 cc/min. Renal impairment is on the basis of DKD, hypertensive nephrosclerosis * Urine sediment has been acellular * UPCR has been > 3.5. No prior h/o monoclonal gammopathy * 09/29 renal US: R 10.6, L 9.2 w/ 2.3 upper pole cyst. No stone * 12/30 renal artery doppler: no KEO * L RC AVF created 11/08/[address] Gregg. Patient to dialyze at [facility] when necessary (3) Acute exacerbation of CHF (congestive heart failure): Plan: * Had been on a weight based diuretic regimen as outpatient. Target weight 215 lbs. Was taking Torsemide 30 mg po daily PRN weight > 215 lbs * Admit weight was 98.4 kg (216.5 lbs). Patient has required IV Bumex + po Metolazone. She has diuresed 4.7 L since admission and is currently breathing comfortably on O2 at 1L/min NC (SaO2 95%) * Will stop Metolazone today and convert to oral Bumex (4) Anemia: Plan: * Patient has completed 1 g Venofer infusion. Hgb is trending up (5) Hypertension: Plan: * No KEO on doppler this admission * Will increase Hydralazine to 50 mg po TID * Continue Amlodipine, Isosorbide and Bumex Admission and Anticipated Discharge Date Admission Date: December 31, 2020 Subjective Ms. Bolivar was evaluated in her hospital room this morning. She reports brisk UO. She denies dyspnea and is breathing comfortably on O2 at 1L/min NC Review of Systems Constitutional: no fever Eyes: no problem reported Ear, Nose, Mouth, Throat: no problem reported Respiratory: no cough and no dyspnea Cardiovascular: no chest pain Gastrointestinal: no abdominal pain Genitourinary: no dysuria and no hematuria Musculoskeletal: no back pain Integumentary: no rash Neurologic: no dizziness Physical Exam Constitutional: not in distress Eyes: PERRL, conjunctivae normal, anicteric sclerae ENMT: external ear and nose normal, oropharynx normal Neck: trachea midline, no thyromegaly Respiratory: normal respiratory effort, lungs clear to auscultation Cardiovascular: Rate/Rhythm: regular rate and regular rhythm Extremities: + edema (trace LE swelling) Gastrointestinal (Abdomen): normal bowel sounds, soft, nontender, no hepatosplenomegaly Musculoskeletal: Extremities: no cyanosis Skin: no rashes, warm and dry Neurologic: awake; not confused Results & Data ([facility]) Vital Signs (Past 12 Hours) Vital Signs Temp Pulse Pulse Resp BP Pulse Ox 01/06/21 08:00 36.5 C 60 20 170/62 H 95 01/06/21 04:05 36.6 C 64 18 185/68 H 94 01/06/21 00:52 64 01/06/21 00:00 36.3 C L 68 20 195/68 H 91 Laboratory Results Laboratory Tests 01/06/21 01/06/21 06:56 06:56 WBC 6.45 Hgb 10.0 L Hct 32.7 L Plt Count 283 Sodium 140 Potassium 4.3 Chloride 104 Carbon Dioxide 29 BUN 96 H Creatinine 4.15 H Glucose 88 Calcium 9.5 Phosphorus 4.9 Albumin 2.4 L PG Care Time/CCT Total # of Minutes Spent Total Time Spent with Patient: Total time spent is greater than 50% in coordination of care (as documented) at patient's floor/unit and/or counseling patient: Coding Level of Care Code 89379 Subseq Hosp Care Lvl 3 Diagnoses Acute kidney injury superimposed on chronic kidney disease N17.9; N18.9 CKD (chronic kidney disease) N18.9 Chronic kidney disease stage: unspecified stage Anemia D64.9 Hypertension I10 Acute exacerbation of CHF (congestive heart failure) I50.9 Heart failure type: unspecified (1) CKD (chronic kidney disease) Chronic kidney disease stage: unspecified stage Qualified Code(s): N18.9 - Chronic kidney disease, unspecified (2) Acute exacerbation of CHF (congestive heart failure) Heart failure type: unspecified Qualified Code(s): I50.9 - Heart failure, unspecified
[2021-01-06] MEDS: hydrALAZINE TAB 50 MG TAB PO SCH ×2 (13:43→20:44)
[2021-01-06] MEDS: BUMETANIDE 1 MG TAB PO SCH (17:47)
[2021-01-06] MEDS: INSULIN GLARGINE SOLOSTAR 100 UNITS/ML 3 ML PEN SQ SCH (20:46)
[2021-01-07 07:46] LABS: Hematocrit (blood only) 31.6 % (37-47); Hemoglobin 9.5 g/dL (12.0-16.0); Mean Corpuscular Hemoglobin 26.5 pg (25-34); Mean Corpuscular Hgb Conc 30.1 g/dL (32-36); Mean Platelet Volume 9.1 fL (7.4-10.4); Platelet Count 282 K/uL (130-400); RDW Coefficient of Variation 16.3 % (11.5-14.5); RDW Standard Deviation 52.4 fL (36.4-46.3); Red Blood Count 3.59 M/uL (4.2-5.4); White Blood Count 6.66 K/uL (4.8-10.8)
[2021-01-07] MEDS: hydrALAZINE TAB 50 MG TAB PO SCH (07:55)
[2021-01-07] MEDS: VENLAFAXINE HCL XR 150 MG CAPXR PO SCH (07:55)
[2021-01-07] MEDS: FAMOTIDINE 20 MG TAB PO SCH ×2 (07:56→22:09)
[2021-01-07] MEDS: BUMETANIDE 1 MG TAB PO SCH ×2 (07:56→18:08)
[2021-01-07] MEDS: VENLAFAXINE HCL XR 37.5 MG CAPXR PO SCH (07:56)
[2021-01-07] MEDS: ATORVASTATIN 40 MG TAB PO SCH (07:57)
[2021-01-07] MEDS: CEROVITE ADV FORMULA TAB PO SCH (07:59)
[2021-01-07] MEDS: METOPROLOL SUCC 25MG EXT REL TAB PO SCH (08:00)
[2021-01-07] MEDS: amLODIPine BESYLATE 5 MG TAB PO SCH (08:00)
[2021-01-07] MEDS: ISOSORBIDE MONO EXTENDED REL 60 MG TABCR PO SCH (08:01)
[2021-01-07] MEDS: INSULIN ASPART 100 UNITS/ML 3 ML PEN SC SCH ×4 (08:04→22:15)
[2021-01-07 08:14] LABS: BUN Creatinine Ratio 22.5 (10-20); Calcium 9.5 mg/dl (8.5-10.1); Creatinine Clr Calc Pharmacy 12.7 ml/min; Est GFR (African American) 11.2 ml/min; Est GFR (Non-African American) 9.6 ml/min
--- NOTE | 2021-01-07 08:21 | XRay Report ---
XR chest 1V portable HISTORY: Congestive heart failure. Shortness of breath. COMPARISON: Chest 01/03/2021. FINDINGS: No pneumothorax. The heart remains mildly enlarged. Improved aeration within the hazy airsp amarilys opacities. There is also improvement in the interstitial pulmonary edema and small bilateral pleu ral fusions. There are low lung volumes with mild elevation of the right hemidiaphragm. IMPRESSION: Interval improvement in the edema/airspace opacities and small bilateral pleural effusions. ACT 112: Negative or not required by law. Electronically signed by: Carlito Eugene M.D. 01/07/2021 8:20 AM
[2021-01-07] MEDS ORDERED: hydrALAZINE HCL 25 MG TAB PO ONE (09:15)
--- NOTE | 2021-01-07 10:48 | Hospitalist Progress Note ---
Date of Service January 07, 2021 Assessment & Plan (1) Acute exacerbation of CHF (congestive heart failure): Plan: 80yo female with a history of HFrEF, IDDM2, ESRD, multinodular goiter, BL pleural effusions, HLD, HTN, admitted for acute hypoxic respiratory failure sec ondary to volume overload from acute HFpEF and worsening CKD. Deconditioning 2-step performed prior to previously anticipated d/c on 01/07: remained >91% SpO2, but could not make it 25' without profound exhaustion Patient reportedly made a 45' walk several days ago with PT, but declined re- visit before the weekend Consult replaced with PT to evaluate need for potential inpatient rehab vs. intensive at-home OR outpatient PT Suspect this is secondary to multiple days of respiratory exhaustion. Anemia noted, unchanged at present. Acute on chronic systolic heart failure / HFrEF exacerbation -- Fluid status greatly improving, no longer requiring supplemental O2 BNP on admission 17,393; echo (10/30) shows EF 45-50%, moderate aortic stenosis, moderate MR, mild LVH Torsemide was previously increased to 40mg daily without much improvement Nephrology recommends continued diuresis Initiate oral Bumex: 2mg b.i.d. Stopped metolazone Gan, strict I/Os, 24 hour balance -- aim between 0.5 - 1.0 cc/kg/hr: over- achieving at this point (1.44, net negative -2200cc since 01/06) Goal to have negative fluid balance of 1000 daily to prevent reaccumulation of pleural effusion. Follow daily BMP Bilateral pleural effusions -- Improving on CXR 01/07 Chronic, follows with Dr. Ceja CXR showing BL pleural effusions worse compared to CXR on 12/28 Thoracentesis performed on 01/01 for the right side, left side done 01/02 - 1.5L fluid drained (01/02) Thoracentesis fluid transudative per Light's criteria No need for further thoracentesis at present ESRD Cr 3.5-4.0, GFR ~10, approximately baseline; patient is approaching need for dialysis Creatinine increasing (4.1) following diuretic therapy Has an AV fistula though this is not functioning yet; if patient needs HD she will need a tunneled catheter Per nephrology, no indication for urgent dialysis Plan to receive dialysis at [facility] when needed in the future Acute hypoxic respiratory failure -- Resolved Sec to above Greatly improving with diuresis -- now stable on RA Has required O2 overnight given temporary desaturations -- suspect sec to PREM Hypertension On amlodipine, metoprolol, isosorbide Increased hydralazine: 75 mg PO t.i.d. per nephrology Patient would benefit from outpatient sleep study on discharge and possible CPAP If she stays tonight, can do nocturnal pulse oximetry Renal doppler without stenosis. Epigastric pain, nausea -- Resolved Started 01/04, suspected to be secondary to GERD Started famotidine; can escalate if needed Continue zofran as-needed Bradycardia: resolved 12/31: 50s most of the day May be 2/2 home metoprolol XL 150mg PO qAM - dose decreased to 75mgs CAD Continue isosorbide, aspirin, statin, metoprolol. IDDM2 Home regimen held (insulin basaglar 27 units sq PM), continue SSI Hypoglycemic to 63 AM of 12/31. may be 2/2 decreased PO intake overnight during initial admission : per pharmacy recommendation, Lantus decreased to 10U Check BSG ACHS Sacral pressure ulcer Photographed on 01/02 Wound care consulted Chronic Anemia Hgb 9.8, baseline 10-11 s/p Venofer infusion Follow CBC DVt ppx: heparin sq bid FEn/GI: heart healthy, low sodium Code status: conditional code -- no intubation Dispo: Await PT eval, home vs. need for rehab (2) Hypoxemia: (3) Urinary Incontinence: (4) Ambulatory dysfunction: (5) Type 2 diabetes mellitus with insulin therapy: (6) Multinodular goiter (nontoxic): (7) ESRD (end stage renal disease): (8) Bilateral pleural effusion: (9) Moderate calcific aortic stenosis: (10) Graves disease: (11) Respiratory acidosis: (12) Bradycardia: Admission and Anticipated Discharge Date Admission Date: December 31, 2020 Supervising Physician Co-Signing Physician Notes Resident Physician Supervision Note: I independently interviewed and examined the patient and verified the tinajero history and physical, reviewed labs and image studies and agree with resident Dr. Andres findings and care plan. Subjective No acute events overnight. Patient seen at the bedside this morning, reports feeling well overall, but quite tired. She was unable to get much sleep last morning because of noise related to interactions to her sleep. She says that her breathing feels good. Compared to when she came in, she says she feels about 50 to 60% better. She denies any chest pain, palpitations, shortness of breath. No other complaints this morning. Appetite is good. Review of Systems Review of Systems: As per HPI Physical Exam Physical Exam: General: Tired but well-appearing 80-year-old female is lying back in her hospital bed relaxed upon my arrival. She converses freely and is in no acute distress. HEENT: NCAT. Eyes - Sclera are white, anicteric, and without injection. PERRL. Mucous membranes are moist. Cardiac: Normal rate and regular rhythm; S1 and S2 present with no murmurs, rubs, or gallops. Pulmonary: Good respiratory effort with symmetric expansion of the chest. No use of accessory muscles. Lungs demonstrated diminished sounds throughout. Abdominal: Normoactive bowel sounds. Abdomen was soft, nondistended, and non- tender to palpation. Extremities: Upper and lower extremities are warm and well perfused. Radial and dorsalis pedis pulses were 2+ b/l. There is trace pitting edema in the lower extremities bilaterally, unchanged from yesterday. Results & Data Results & Data ([facility]) Vital Signs (Past 12 Hours) Vital Signs Temp Pulse Pulse Resp BP Pulse Ox 01/07/21 10:20 156/61 H 01/07/21 07:21 36.4 C L 69 20 217/81 H 97 01/07/21 02:37 36.5 C 71 20 196/70 H 92 01/07/21 00:08 69 01/06/21 23:32 94 01/06/21 22:45 36.7 C 76 20 177/65 H 87 L Resident Activity Tracking Resident Involvement: Resident Care Provided Care Provided: Adult Hospital Medicine (1) Acute exacerbation of CHF (congestive heart failure) Heart failure type: unspecified Qualified Code(s): I50.9 - Heart failure, unspecified
--- NOTE | 2021-01-07 11:33 | Nephrology Progress Note ---
Date of Service January 07, 2021 Assessment & Plan (1) Acute kidney injury superimposed on chronic kidney disease: Plan: * Admitted w/ CHF * Cr has risen to 4.1 following diuretic therapy and remains stable * No uremic symptoms. No acute indication for HD today. AVF is not yet mature for use (2) CKD (chronic kidney disease): Plan: * Baseline Cr has been ~ 3.5 w/ EGFR 10 cc/min. Renal impairment is on the basis of DKD, hypertensive nephrosclerosis * Urine sediment has been acellular * UPCR has been > 3.5. No prior h/o monoclonal gammopathy * 09/29 renal US: R 10.6, L 9.2 w/ 2.3 upper pole cyst. No stone * 12/30 renal artery doppler: no KEO * L RC AVF created 11/08/[address] Gregg. Patient to dialyze at [facility] when necessary (3) Acute exacerbation of CHF (congestive heart failure): Plan: * Had been on a weight based diuretic regimen as outpatient. Target weight 215 lbs. Was taking Torsemide 30 mg po daily PRN weight > 215 lbs * Admit weight was 98.4 kg (216.5 lbs). Patient has required IV Bumex + po Metolazone. She has diuresed 6.9 L since admission and is currently breathing comfortably on O2 at 1L/min NC (SaO2 95%) * Metolazone has been stopped * Bumex has been changed to 2 mg po BID * Recommend weaning O2 to off, advance activity and remove Gan catheter (4) Anemia: Plan: * Patient has completed 1 g Venofer infusion. Hgb is trending up (5) Hypertension: Plan: * BP remains difficult to control * No KEO on doppler this admission * Will increase Hydralazine to 75 mg po TID * Continue Amlodipine, Isosorbide and Bumex Admission and Anticipated Discharge Date Admission Date: December 31, 2020 Subjective Ms. Bolivar was evaluated in her hospital room this morning. She slept poorly last night and remains fatigued this morning. Ms. Bolivar was transitioned to oral diuretics yesterday afternoon and reports brisk UO. Review of Systems Review of Systems: Detailed review of system otherwise unremarkable. Constitutional: no fever Eyes: no problem reported Ear, Nose, Mouth, Throat: no problem reported Respiratory: no cough and no dyspnea Cardiovascular: no chest pain Gastrointestinal: no abdominal pain Genitourinary: no dysuria and no hematuria Musculoskeletal: no back pain Integumentary: no rash Neurologic: no dizziness Physical Exam Constitutional: not in distress Eyes: PERRL, conjunctivae normal, anicteric sclerae ENMT: external ear and nose normal, oropharynx normal Neck: trachea midline, no thyromegaly Respiratory: normal respiratory effort, lungs clear to auscultation Cardiovascular: Rate/Rhythm: regular rate and regular rhythm Extremities: + edema (trace LE swelling) Gastrointestinal (Abdomen): normal bowel sounds, soft, nontender, no hepatosplenomegaly Musculoskeletal: Extremities: no cyanosis Skin: no rashes, warm and dry Neurologic: awake; not confused Results & Data ([facility]) Vital Signs (Past 12 Hours) Vital Signs Temp Pulse Pulse Resp BP Pulse Ox 01/07/21 10:20 156/61 H 01/07/21 07:21 36.4 C L 69 20 217/81 H 97 01/07/21 02:37 36.5 C 71 20 196/70 H 92 01/07/21 00:08 69 01/06/21 23:32 94 Laboratory Results Laboratory Tests 01/07/21 01/07/21 06:56 06:56 WBC 6.66 Hgb 9.5 L Hct 31.6 L Plt Count 282 Sodium 140 Potassium 4.0 Chloride 103 Carbon Dioxide 29 BUN 93 H Creatinine 4.16 H Glucose 125 H PG Care Time/CCT Total # of Minutes Spent Total Time Spent with Patient: Total time spent is greater than 50% in coordination of care (as documented) at patient's floor/unit and/or counseling patient: Coding Level of Care Code 99415 Subseq Hosp Care Lvl 3 Diagnoses Acute kidney injury superimposed on chronic kidney disease N17.9; N18.9 CKD (chronic kidney disease) N18.9 Chronic kidney disease stage: unspecified stage Acute exacerbation of CHF (congestive heart failure) I50.9 Heart failure type: unspecified Anemia D64.9 Hypertension I10 (1) CKD (chronic kidney disease) Chronic kidney disease stage: unspecified stage Qualified Code(s): N18.9 - Chronic kidney disease, unspecified (2) Acute exacerbation of CHF (congestive heart failure) Heart failure type: unspecified Qualified Code(s): I50.9 - Heart failure, unspecified
--- NOTE | 2021-01-07 13:43 | Discharge Summary ---
Date of Service January 07, 2021 Admission HPI Per Admitting Provider 80 yo F with pmh HFrEF, aortic stenosis, DM2, ESRD, multinodular goiter, graves disease, HTN, brought to ER by daughter for worsening SOB. Recently seen by clinical informatics spec Dr. Hamm on 12/27, at which time he increased her torsemide from 30 mg daily to 40 mg daily to help reduce peripheral edema and pleural effusions. Daughter states that Sonam sees Dr. Ceja for pulmonary care, and they have previously discussed doing thoracenteses to drain the effusions. She says the increase in torsemide did not improve her shortness of breath. She states she has a dry cough and isn't able to take a deep breath. No chest pain. She says she doens't have much of an appetite and has been that way for a while now. She eats a lot of tea and ritz crackers, and says she knows she's supposed to avoid salt but doesn't care to. Admission Exam Per Admitting Provider Constitutional: obese, in no apparent distress, sitting comfortably in bed. Eyes: EOMI, pupils equal and reactive bilaterally, no scleral icterus Cardiac: RRR, no murmurs, gallops or rubs. Normal S1, S2 Pulm: poor inspiratory effort, bibasilar crackles, breathing comfortably on 6L NC Abd: soft, nontender, distended, normal bowel sounds, no rebound or guarding Extremities: 2+ peripheral pulses, 3+ pitting edema to knees bilaterally Neuro: no focal deficits, moving all 4 limbs, A&Ox3 Principal Diagnosis volume overload acute HFrEF DONNA atop CKD Discharge Exam General: Tired but well-appearing 80-year-old female is lying back in her hospital bed relaxed upon my arrival. She converses freely and is in no acute distress. HEENT: NCAT. Eyes - Sclera are white, anicteric, and without injection. PERRL. Mucous membranes are moist. Cardiac: Normal rate and regular rhythm; S1 and S2 present with no murmurs, rubs, or gallops. Pulmonary: Good respiratory effort with symmetric expansion of the chest. No use of accessory muscles. Lungs demonstrated diminished sounds throughout. Abdominal: Normoactive bowel sounds. Abdomen was soft, nondistended, and non- tender to palpation. Extremities: Upper and lower extremities are warm and well perfused. Radial and dorsalis pedis pulses were 2+ b/l. There is trace pitting edema in the lower extremities bilaterally, unchanged from yesterday. Discharge Data Allergies Allergy/AdvReac Type Severity Reaction Status Date / Time codeine AdvReac Unknown DOES NOT Verified 12/31/20 00:14 [address] THE WAY IT MAKES HER FEEL. Consultations 12/30/20 23:43 ED Decision to Admit Stat 12/31/20 02:13 Consult Cardiology Routine Consult Nephrology Routine Consult Pulmonology Routine Ordered Studies 01/01/21 16:01 US point of care ultrasound Urgent US point of care ultrasound Urgent 01/02/21 15:38 US point of care ultrasound Urgent 01/05/21 10:24 US duplex renal artery Routine US duplex renal artery CLINICAL HISTORY: Kidney injury, hypertensive urgency COMPARISON STUDY: None. FINDINGS: The right kidney measures 10.2 cm and the left kidney measures 9.6 cm. The bilateral renal veins are patent. No elevated resistive indices within the renal arcuate arteries. Peak velocity within the right renal artery was 57 cm/s in the left renal artery was 76 cm/s. IMPRESSION: No evidence for renal artery stenosis. Hospital Course (1) Urinary Incontinence: (2) Ambulatory dysfunction: (3) Type 2 diabetes mellitus with insulin therapy: (4) Multinodular goiter (nontoxic): (5) ESRD (end stage renal disease): (6) Bilateral pleural effusion: (7) Moderate calcific aortic stenosis: (8) Graves disease: (9) Respiratory acidosis: (10) Bradycardia: Total Time Total Time Spent Total Time Spent (In Minutes): 30 Discharge Plan Discharge Items Patient Disposition: Home - Self-Care Reason For Visit: CHF EXACERBATION Discharge Diagnosis: volume overload (excess fluid) heart failure exacerbation chronic kidney disease Condition on Discharge: Fair Activity: Per Instructions section Non-emergency contact: Primary Care Provider, Supervisor [employer] Call non-emergency contact if: you have any medication questions, your symptoms worsen and your temperature is above 101 Follow-up/Referrals: Sanjay Spangler MD [Physician] - 02/06/21 2:30 pm (Ultrasound) David Lopez III, CRNP [Primary Care Provider] - 01/18/21 9:20 am Faheem Gregg MD [Physician] - 02/13/21 1:00 pm (FOLLOW UP) Diet: Dialysis Renal and Low Potassium (2gm) Fluids: 1500ml (6 cups) Addtl Attending Provider Instructions: You were seen in [facility] for evaluation of shortness of breath. During her stay here, you underwent several tests to determine the cause of this shortness of breath. Based on her different studies, your symptoms were thought to be due to excess fluid within the lungs, which was likely caused by a combination of decreased heart function as well as your chronic kidney disease. You underwent multiple evaluations and medication changes to help treat your symptoms, including with diuretics (fluid pills) and manual removal of the fluid surrounding your lungs (thoracentesis). Thankfully, you demonstrated excellent response to these therapies. By the time of discharge, you were stable on just a few medications. Upon your discharge, please continue taking Bumex 2mg twice daily. Please also continue taking hydralazine 75mg, 3 times daily. Please continue taking your other blood pressure medications as previously prescribed. Do not take torsemide unless directed by your primary care doctor or specialists. Please note that your long-acting insulin was changed to 10U/night following an episode of low blood sugar here in the hospital -- please discuss this with your PCP on discharge. It will be very important to follow-up with your kidney doctor and heart doctor following discharge. We also highly suggest that you undergo a sleep study to help evaluate for sleep apnea, which may be contributing to your symptoms. Here are your upcoming appointments: Dialysis at [facility] on Friday, 01/15 at 10:30am Appointment with ELLIOTT Rivero on 01/18 at 9:20am Appointment with Dr. Spangler (nephrology) on 02/06 at 2:30pm Appointment with Dr. Gregg (vascular surgery) on 02/13 at 1pm In the interim, if you experience any worsening shortness of breath, lightheadedness or dizziness, chest pain, palpitations, increased swelling in your legs, fevers, chills, night sweats, or other worrisome symptoms, please seek medical attention. If your symptoms are severe, please report to the ER immediately for evaluation. Is a pleasure for caring for you while you are here, and we wish you all the best in your recovery. ---- Call 911 and go to the Emergency Room if: * You have tightness or pain in your chest that does not go away with rest or Nitroglycerin * You are very short of breath even with rest Call your doctor if any of the following symptoms or problems start or get worse: * Shortness of breath or difficulty breathing * Wake up at night short of breath * Chest pain * Cough * Swelling of your hands, fee, or legs * More fatigued or tired with your normal activity * Palpitations - sudden fast heart beats WEIGHT * Weigh yourself every morning after using the bathroom. * Use the same scale. * Wear the same amount of clothing. * Write your weight down on your chart. * Call your doctor if you gain more than 2-3 pounds in 1-2 days. MEDICATIONS * Use this discharge instruction sheet for instructions. * Take your medications at the time your doctor ordered. * Do not skip a dose of your medicines. * If you miss a dose of medicine, take as soon as possible, but DO NOT DOUBLE A DOSE. * Read your medicine information when you get home. * Know all of the side effects of your medicine. * Call your doctor's office if you have any side effects. * Be sure all of your doctors know what medicine and herbs you take (including cold, flu, and herbal medicine). * Pain Medicine: If you do not get relief from your pain, please call your doctor for help. Take the following with you to your follow-up doctor appointments: * Weight Chart * Medication List * List of questions Do not drink excessive alcohol, beer or wine. Pending Studies at Discharge: No Stand-Alone Forms: My [facility] Medications and DC Order Prescriptions: New metoprolol succinate 25 mg Tablet Extended Release 24 Hr 75 mg PO QAM 30 Days Qty: 90 RF: 0 hydralazine 25 mg Tablet 75 mg PO TID 30 Days Qty: 270 RF: 0 bumetanide 1 mg Tablet 2 mg PO BID17 30 Days Qty: 60 RF: 0 Continued Centrum Silver 400-250 mcg tablet,chewable 1 tab PO QAM RF: 0 polyethylene glycol 3350 17 gram/dose powder 17 gm PO DAILY PRN (Reason: Constipation) RF: 0 PreserVision AREDS [id number] capsule 1 cap PO BID RF: 0 venlafaxine 150 mg capsule,extended release 24hr 150 mg PO QAM RF: 0 ascorbic acid (vitamin C) 500 mg tablet 500 mg PO QAM RF: 0 (DME) OneTouch Ultra Blue Test Strip Strip See Rx Instructions .ROUTE .MEDSUPPLY Qty: 100 RF: 3 (DME) pen needle, diabetic [BD Ultra-Fine [place] Pen Needle] 32 gauge x 5/32" needle See Rx Instructions .ROUTE .MEDSUPPLY Qty: 400 RF: 3 atorvastatin 80 mg tablet 80 mg PO QAM Qty: 90 RF: 3 isosorbide mononitrate 120 mg tablet extended release 24 hr 120 mg PO QAM Qty: 90 RF: 3 amlodipine 5 mg tablet 5 mg PO BID Qty: 180 RF: 3 insulin aspart U-100 [Novolog Flexpen U-100 Insulin] 100 unit/mL (3 mL) insulin pen 30 unit subcut DAILY 90 Days Qty: 30 RF: 1 (DME) Incentive Spirometer Misc See Rx Instructions .MEDSUPPLY Qty: 1 RF: 0 cholecalciferol (vitamin D3) 25 mcg (1,000 unit) capsule 50 mcg PO BID RF: 0 Calcium 600 with Vitamin D3 600 mg(1,500mg) -400 unit Tablet,Chewable 2 tab PO QAM RF: 0 venlafaxine 37.5 mg tablet extended release 24hr 37.5 mg PO QAM RF: 0 Changed Basaglar KwikPen U-100 Insulin 100 unit/mL (3 mL) insulin pen 10 unit subcut QPM Qty: 0 RF: 0 Discontinued aspirin 325 mg tablet 650 mg PO DAILY PRN (Reason: Pain) RF: 0 metoprolol succinate 100 mg tablet extended release 24 hr 150 mg PO QAM Qty: 90 RF: 3 torsemide 20 mg tablet 40 mg PO DAILY Qty: 90 RF: 3 Discharge Orders: Discharge Order (Routine); Ordered 01/12/21 Ordered By: Harvey Sharpe/Other Patient Handouts: A1C, Managing Type 2 Diabetes, Coping with Kidney Failure, Coping with Heart Failure, CKD Dc, Eating Heart-Healthy Foods Admission Data Admit Date/Time: 12/31/20 00:15 Attending Provider: Rick Tejeda Admit Provider: Fe Dwyer Primary Care Provider: David Lopez III Other Providers: Rick Tejeda ; Yosi Randall ; [facility] ; Johanny Haskins ; [place] ; Nimesh Demarco ; David Watkins ; Atul Schneider ; Hernandez Boogie ; Faheem Gregg Other Interventions: Discharge Summary Assessment (RN) Last Done: 01/12/21 15:04 Supervising Physician Co-Signing Physician Notes Resident Physician Supervision Note: I independently interviewed and examined the patient and verified the tinajero history and physical, reviewed labs and image studies and agree with resident Dr. Andres findings and care plan.
[2021-01-07] MEDS: hydrALAZINE HCL 25 MG TAB PO SCH ×2 (14:06→22:10)
[2021-01-07] MEDS: INSULIN GLARGINE SOLOSTAR 100 UNITS/ML 3 ML PEN SQ SCH (22:13)
[2021-01-08] MEDS: POLYETHYLENE (MIRALAX) 17 GM PACK PO PRN (09:52)
[2021-01-08] MEDS: INSULIN ASPART 100 UNITS/ML 3 ML PEN SC SCH ×5 (09:52→23:50)
[2021-01-08] MEDS: CEROVITE ADV FORMULA TAB PO SCH (09:54)
[2021-01-08] MEDS: hydrALAZINE HCL 25 MG TAB PO SCH ×3 (09:56→20:43)
[2021-01-08] MEDS: VENLAFAXINE HCL XR 150 MG CAPXR PO SCH (09:57)
[2021-01-08] MEDS: METOPROLOL SUCC 25MG EXT REL TAB PO SCH (09:57)
[2021-01-08] MEDS: ATORVASTATIN 40 MG TAB PO SCH (09:57)
[2021-01-08] MEDS: ISOSORBIDE MONO EXTENDED REL 60 MG TABCR PO SCH (09:58)
[2021-01-08] MEDS: FAMOTIDINE 20 MG TAB PO SCH ×2 (09:58→20:44)
[2021-01-08 09:59] LABS: BUN Creatinine Ratio 20.2 (10-20); Calcium 9.3 mg/dl (8.5-10.1); Creatinine Clr Calc Pharmacy 11.6 ml/min; Est GFR (African American) 9.9 ml/min; Est GFR (Non-African American) 8.6 ml/min; Potassium 4.3 mmol/L (3.5-5.1)
[2021-01-08] MEDS: BUMETANIDE 1 MG TAB PO SCH ×2 (09:59→17:29)
[2021-01-08] MEDS: VENLAFAXINE HCL XR 37.5 MG CAPXR PO SCH (10:00)
--- NOTE | 2021-01-08 10:11 | Hospitalist Progress Note ---
Date of Service January 08, 2021 Assessment & Plan (1) Acute exacerbation of CHF (congestive heart failure): Plan: 80yo female with a history of HFrEF, IDDM2, ESRD, multinodular goiter, BL pleural effusions, HLD, HTN, admitted for acute hypoxic respiratory failure sec ondary to volume overload from acute HFpEF and worsening CKD. ESRD Cr 3.5-4.0, GFR ~10, approximately baseline; patient is approaching need for dialysis Creatinine increasing (4.1) following diuretic therapy -- stabilized at this level prior to discharge Has an AV fistula though not yet mature/ready for use Nephrology plans to place tunneled catheter on 01/09 followed by first HD treatment Plan to receive dialysis at [facility] when needed in the future HFrEF exacerbation: resolved BNP on admission 17,393; echo (10/30) shows EF 45-50%, moderate aortic stenosis, moderate MR, mild LVH Torsemide was previously increased to 40mg daily without much improvement Nephrology recommends continued diuresis Initiate oral Bumex: 2mg bid Stop metolazone, torsemide Achieved adequate I&O balance with resolution of AHRF prior to discharge following aggressive diuresis Currently stable and satting well on room air Continue to monitor Bilateral pleural effusions Chronic, follows with Dr. Ceja CXR showing BL pleural effusions worse compared to CXR on 12/28 Thoracentesis performed on 01/01 for the right side, left side done 01/02 - 1.5L fluid drained (01/02) Thoracentesis fluid transudative per Light's criteria No intervention currently indicated Acute hypoxic respiratory failure: resolved Secondary to CHF exacerbation Greatly improved with diuresis, now stable on room air Suspect nocturnal desaturations are secondary to underlying PREM, would benefit from outpatient sleep study Hypertension On amlodipine, metoprolol, isosorbide at home Renal doppler done here without evidence of KEO Continue hydralazine 75mg Patient will receive HD tomorrow, anticipate this will help BP Epigastric pain, nausea: resolved Started 01/04, suspected to be secondary to GERD Resolved with famotidine Bradycardia: resolved Intermittently bradycardic to 50s, asymptomatic Home metoprolol decreased from 150mg to 75mg CAD Continue isosorbide, aspirin, statin, metoprolol IDDM2 Home regimen held (insulin basaglar 27 units sq PM) while here, utilized SSI Hypoglycemic to 63 AM of 12/31. Likely 2/2 decreased PO intake overnight during initial admission Per pharmacy recommendation, lantus decreased to 10U Sacral pressure ulcer Wound care following Chronic anemia Hgb 9.8, baseline 10-11 Patient is s/p venofer infusion FEN: low sodium, heart healthy, fluid restriction to 1L Code status: no intubation, OK for CPR, defibrillation DVT ppx: SCDs Isolation: none Consults: nephrology, pulmonology PT/OT: following Dispo: med/surg (2) Hypoxemia: (3) Urinary Incontinence: (4) Ambulatory dysfunction: (5) Type 2 diabetes mellitus with insulin therapy: (6) Multinodular goiter (nontoxic): (7) ESRD (end stage renal disease): (8) Bilateral pleural effusion: (9) Moderate calcific aortic stenosis: (10) Graves disease: (11) Respiratory acidosis: (12) Bradycardia: Admission and Anticipated Discharge Date Admission Date: December 31, 2020 Supervising Physician Co-Signing Physician Notes I personally examined the patient and verified all tinajero points of history and exam, discussed case, and agree with decision making with Dr Clancy Feeling about the same. No current complaints. Understands plan. Vitals noted, in general she is awake and alert pleasant no distress. HEENT normocephalic atraumatic mucous membranes moist. Breathing unlabored no accessory muscle use good effort. Skin shows no rashes no pallor or icterus. Neuro without focal deficits. HFpEF/ESRDappears predominantly to be failing med managementfor dialysis starting tomorrow. As it relates to pleural effusions, fortunately she is breathing room air, unfortunately they reaccumulate quite quicklyif they were to start to cause her any problems, may need pleurodesis beyond just simple thoracentesis to prevent reaccumulation yet again. Otherwise as above. Subjective Patient seen and evaluated at bedside this morning. No acute events overnight. Patient feels alright today Results & Data Results & Data ([facility]) Vital Signs (Past 12 Hours) Vital Signs Temp Pulse Pulse Resp BP Pulse Ox 01/08/21 07:55 36.4 C L 65 18 174/82 H 94 01/08/21 03:08 36.5 C 68 20 197/78 H 95 01/07/21 23:56 68 01/07/21 23:00 36.4 C L 68 20 178/70 H 96 Resident Activity Tracking Resident Involvement: Resident Care Provided Care Provided: Adult Hospital Medicine (1) Acute exacerbation of CHF (congestive heart failure) Heart failure type: unspecified Qualified Code(s): I50.9 - Heart failure, unspecified
--- NOTE | 2021-01-08 10:13 | Nephrology Progress Note ---
Date of Service January 08, 2021 Assessment & Plan (1) Acute kidney injury superimposed on chronic kidney disease: Plan: * Admitted w/ CHF * Cr has risen to 4.5 and patient now has mild uremic symptoms. AVF is not yet mature for use * EGFR is 8 cc/min. Will order 24 hour urine Clcr * Case discussed w/ primary service and Vascular Surgery * Will keep hospitalized for IJ THC insertion tomorrow followed by 1st run HD * Will consult case management to set up outpatient HD at [facility] (2) CKD (chronic kidney disease): Plan: * Baseline Cr has been ~ 3.5 w/ EGFR 10 cc/min. Renal impairment is on the basis of DKD, hypertensive nephrosclerosis * Urine sediment has been acellular * UPCR has been > 3.5. No prior h/o monoclonal gammopathy * 09/29 renal US: R 10.6, L 9.2 w/ 2.3 upper pole cyst. No stone * 12/30 renal artery doppler: no KEO * L RC AVF created 11/08/[address] Gregg. Patient to dialyze at [facility] when necessary (3) Acute exacerbation of CHF (congestive heart failure): Plan: * Had been on a weight based diuretic regimen as outpatient. Target weight 215 lbs. Was taking Torsemide 30 mg po daily PRN weight > 215 lbs * Admit weight was 98.4 kg (216.5 lbs). Patient has required IV Bumex + po Metolazone. She has diuresed 6.9 L since admission and is currently breathing comfortably on O2 at 1L/min NC (SaO2 95%) * Metolazone has been stopped * Bumex has been changed to 2 mg po BID * Recommend weaning O2 to off, advance activity and remove Gan catheter (4) Anemia: Plan: * Patient has completed 1 g Venofer infusion. Hgb is trending up (5) Hypertension: Plan: * BP remains difficult to control * No KEO on doppler this admission * Continue Hydralazine 75 mg po TID * Continue Amlodipine, Isosorbide and Bumex Admission and Anticipated Discharge Date Admission Date: December 31, 2020 Subjective Ms. Bolivar was evaluated in her hospital room this morning. She reports that she is breathing easily on RA. She reports mild nausea and is uncertain about returning home today Review of Systems Review of Systems: Detailed review of system otherwise unremarkable. Constitutional: no fever Eyes: no problem reported Ear, Nose, Mouth, Throat: no problem reported Respiratory: no cough and no dyspnea Cardiovascular: no chest pain Gastrointestinal: + nausea; no abdominal pain Genitourinary: no dysuria and no hematuria Musculoskeletal: no back pain Integumentary: no rash Neurologic: no dizziness Physical Exam Constitutional: not in distress Eyes: PERRL, conjunctivae normal, anicteric sclerae ENMT: external ear and nose normal, oropharynx normal Neck: trachea midline, no thyromegaly Respiratory: normal respiratory effort, lungs clear to auscultation Cardiovascular: Rate/Rhythm: regular rate and regular rhythm Extremities: + edema (trace LE swelling) Gastrointestinal (Abdomen): normal bowel sounds, soft, nontender, no hepatosplenomegaly Musculoskeletal: Extremities: no cyanosis Skin: no rashes, warm and dry Neurologic: awake; not confused Results & Data ([facility]) Vital Signs (Past 12 Hours) Vital Signs Temp Pulse Pulse Resp BP Pulse Ox 01/08/21 07:55 36.4 C L 65 18 174/82 H 94 01/08/21 03:08 36.5 C 68 20 197/78 H 95 01/07/21 23:56 68 01/07/21 23:00 36.4 C L 68 20 178/70 H 96 Laboratory Results Laboratory Tests 01/08/21 08:55 Sodium 139 Potassium 4.3 Chloride 103 Carbon Dioxide 31 BUN 93 H Creatinine 4.58 H* D PG Care Time/CCT Total # of Minutes Spent Total Time Spent with Patient: Total time spent is greater than 50% in coordination of care (as documented) at patient's floor/unit and/or counseling patient: Coding Level of Care Code 40906 Subseq Hosp Care Lvl 3 Diagnoses Acute kidney injury superimposed on chronic kidney disease N17.9; N18.9 CKD (chronic kidney disease) N18.9 Chronic kidney disease stage: unspecified stage Acute exacerbation of CHF (congestive heart failure) I50.9 Heart failure type: unspecified Anemia D64.9 Hypertension I10 (1) Acute exacerbation of CHF (congestive heart failure) Heart failure type: unspecified Qualified Code(s): I50.9 - Heart failure, unspecified (2) CKD (chronic kidney disease) Chronic kidney disease stage: unspecified stage Qualified Code(s): N18.9 - Chronic kidney disease, unspecified
[2021-01-08] MEDS: amLODIPine BESYLATE 5 MG TAB PO SCH (12:24)
[2021-01-08] MEDS: NEPHROCAPS PO SCH (12:27)
--- NOTE | 2021-01-08 17:54 | Billing Data ---
Date of Service January 08, 2021 Coding Level of Care Code 35144 Subseq Hosp Care Lvl 2
[2021-01-08] MEDS ORDERED: MELATONIN 3 MG TAB PO PRN (18:24)
[2021-01-08] MEDS: INSULIN GLARGINE SOLOSTAR 100 UNITS/ML 3 ML PEN SQ SCH (20:43)
[2021-01-08] MEDS ORDERED: Nursing to Pharmacy Communication SCH (22:00)
[2021-01-09] MEDS: INSULIN ASPART 100 UNITS/ML 3 ML PEN SC SCH ×4 (06:11→21:31)
--- NOTE | 2021-01-09 06:53 | Hospitalist Progress Note ---
Date of Service January 09, 2021 Assessment & Plan (1) Acute exacerbation of CHF (congestive heart failure): Plan: 80yo female with a history of HFrEF, IDDM2, ESRD, multinodular goiter, BL pleural effusions, HLD, HTN, admitted for acute hypoxic respiratory failure sec ondary to volume overload from acute HFpEF and worsening CKD. ESRD Cr 3.5-4.0, GFR ~10, approximately baseline; patient is approaching need for dialysis Creatinine increasing (4.1) following diuretic therapy -- stabilized at this level prior to discharge Has an AV fistula though not yet mature/ready for use 01/09: nephrology placed a tunneled catheter, patient underwent first HD treatment today, tolerated well Plan to receive dialysis at [facility] when needed in the future HFrEF exacerbation: resolved BNP on admission 17,393; echo (10/30) shows EF 45-50%, moderate aortic stenosis, moderate MR, mild LVH Torsemide was previously increased to 40mg daily without much improvement Nephrology recommends continued diuresis Initiate oral Bumex: 2mg bid Stop metolazone, torsemide Achieved adequate I&O balance with resolution of AHRF prior to discharge following aggressive diuresis Currently stable and satting well on room air Continue to monitor Bilateral pleural effusions Chronic, follows with Dr. Ceja CXR showing BL pleural effusions worse compared to CXR on 12/28 Thoracentesis performed on 01/01 for the right side, left side done 01/02 - 1.5L fluid drained (01/02) Thoracentesis fluid transudative per Light's criteria No intervention currently indicated Anticipate improvement with hemodialysis Acute hypoxic respiratory failure: resolved Secondary to CHF exacerbation Greatly improved with diuresis, now stable on room air Suspect nocturnal desaturations are secondary to underlying PREM, would benefit from outpatient sleep study Hypertension On amlodipine, metoprolol, isosorbide at home Renal doppler done here without evidence of KEO Continue hydralazine 75mg Anticipate improvement with hemodialysis Epigastric pain, nausea: resolved Started 01/04, suspected to be secondary to GERD Resolved with famotidine Bradycardia: resolved Intermittently bradycardic to 50s, asymptomatic Home metoprolol decreased from 150mg to 75mg CAD Continue isosorbide, aspirin, statin, metoprolol IDDM2 Home regimen held (insulin basaglar 27 units sq PM) while here, utilized SSI Hypoglycemic to 63 AM of 12/31. Likely 2/2 decreased PO intake overnight during initial admission Per pharmacy recommendation, lantus decreased to 10U Sacral pressure ulcer Wound care following Chronic anemia Hgb 9.8, baseline 10-11 Patient is s/p venofer infusion FEN: low sodium, heart healthy, fluid restriction to 1L Code status: no intubation, OK for CPR, defibrillation DVT ppx: SCDs Isolation: none Consults: nephrology, pulmonology PT/OT: following Dispo: med/surg (2) Hypoxemia: (3) Urinary Incontinence: (4) Ambulatory dysfunction: (5) Type 2 diabetes mellitus with insulin therapy: (6) Multinodular goiter (nontoxic): (7) ESRD (end stage renal disease): (8) Bilateral pleural effusion: (9) Moderate calcific aortic stenosis: (10) Graves disease: (11) Respiratory acidosis: (12) Bradycardia: Admission and Anticipated Discharge Date Admission Date: December 31, 2020 Supervising Physician Co-Signing Physician Notes I personally examined the patient and verified all tinajero points of history and exam, discussed case, and agree with decision making with Dr Clancy Seen prior to permacath placement and dialysis. Generally feeling about the same. Vitals noted, in general she is awake and alert pleasant no distress. HEENT normocephalic atraumatic mucous membranes moist. Breathing unlabored no accessory muscle use good effort. Skin shows no rashes no pallor or icterus. Neuro without focal deficits. HFpEF/ESRDappears predominantly to be failing med managementfor dialysis starting today, hopefully that will start to affect improvement in how she is feeling. As it relates to pleural effusions, fortunately she is breathing room air, unfortunately they reaccumulate quite quicklyif they were to start to cause her any problems, may need pleurodesis beyond just simple thoracentesis to prevent reaccumulation yet again. Otherwise as above. Subjective Patient seen and evaluated at bedside this morning. No acute events overnight. Patient endorses very mild nausea but has no other concerns or complaints today. Patient denies CP, SOB, abdominal pain, vomiting, lightheadedness, dizziness, and diarrhea. Review of Systems Review of Systems: See HPI Physical Exam Physical Exam: Constitutional: well-appearing, no acute distress CV: regular rhythm, no murmur appreciated, extremities well-perfused, no LE edema Resp: CTABL, no wheezes/rales/rhonchi appreciated, no increased work of breathing, poor air movement Skin: warm, dry, no rash appreciated Neuro: AOx4, no focal neurological deficits appreciated Results & Data Results & Data ([facility]) Vital Signs (Past 12 Hours) Vital Signs Temp Pulse Pulse Resp BP Pulse Ox 01/09/21 03:57 36.4 C L 74 18 186/69 H 90 01/08/21 23:43 64 01/08/21 23:33 36.4 C L 69 18 195/70 H 90 01/08/21 19:51 36.6 C 67 18 195/62 H 90 Resident Activity Tracking Resident Involvement: Resident Care Provided Care Provided: Adult Hospital Medicine (1) Acute exacerbation of CHF (congestive heart failure) Heart failure type: unspecified Qualified Code(s): I50.9 - Heart failure, unspecified
[2021-01-09] MEDS: ATORVASTATIN 40 MG TAB PO SCH (07:54)
[2021-01-09] MEDS: VENLAFAXINE HCL XR 37.5 MG CAPXR PO SCH (07:55)
[2021-01-09] MEDS: FAMOTIDINE 20 MG TAB PO SCH ×2 (07:55→21:32)
[2021-01-09] MEDS: CEROVITE ADV FORMULA TAB PO SCH (07:55)
[2021-01-09] MEDS: VENLAFAXINE HCL XR 150 MG CAPXR PO SCH (07:55)
[2021-01-09] MEDS: NEPHROCAPS PO SCH (07:55)
[2021-01-09] MEDS: ISOSORBIDE MONO EXTENDED REL 60 MG TABCR PO SCH (07:56)
[2021-01-09] MEDS: BUMETANIDE 1 MG TAB PO SCH ×2 (07:56→17:25)
[2021-01-09] MEDS ORDERED: ceFAZolin 2000MG 2,000 MG/15 ML SYR IV SCH (08:00)
[2021-01-09] MEDS: amLODIPine BESYLATE 5 MG TAB PO SCH (08:03)
[2021-01-09] MEDS: METOPROLOL SUCC 25MG EXT REL TAB PO SCH (08:03)
[2021-01-09] MEDS: hydrALAZINE HCL 25 MG TAB PO SCH ×3 (08:03→21:32)
[2021-01-09 08:04] LABS: Basophils # (auto) 0.04 K/uL (0-0.2); Basophils % (auto) 0.6 %; Eosinophils # (auto) 0.31 K/uL (0-0.5); Eosinophils % (auto) 4.9 %; Hematocrit (blood only) 31.8 % (37-47); Hemoglobin 9.7 g/dL (12.0-16.0); Immature Granulocytes # (auto) 0.03 K/uL (0.00-0.02); Immature Granulocytes % (auto) 0.5 %; Lymphocytes # (auto) 1.31 K/uL (1.2-3.4); Lymphocytes % (auto) 20.6 %; Mean Corpuscular Hemoglobin 26.7 pg (25-34); Mean Corpuscular Hgb Conc 30.5 g/dL (32-36); Mean Corpuscular Volume 87.6 fL (80-100); Mean Platelet Volume 9.1 fL (7.4-10.4); Monocytes # (auto) 0.66 K/uL (0.11-0.59); Monocytes % (auto) 10.4 %; Neutrophils # (auto) 4.01 K/uL (1.4-6.5); Platelet Count 258 K/uL (130-400); RDW Coefficient of Variation 16.7 % (11.5-14.5); RDW Standard Deviation 52.9 fL (36.4-46.3); Red Blood Count 3.63 M/uL (4.2-5.4); White Blood Count 6.36 K/uL (4.8-10.8)
[2021-01-09] MEDS ORDERED: SODIUM CHLORIDE 0.9% 1000ML 1,000 ML IV PRN (08:27)
[2021-01-09] MEDS ORDERED: EPOETIN ALFA 10,000 UNITS/ML VIAL IV ONE (08:27)
[2021-01-09 08:48] LABS: BUN Creatinine Ratio 19.5 (10-20); Calcium 9.7 mg/dl (8.5-10.1); Creatinine Clr Calc Pharmacy 11.3 ml/min; Est GFR (African American) 9.7 ml/min; Est GFR (Non-African American) 8.3 ml/min
--- NOTE | 2021-01-09 09:06 | Consultation ---
Date of Consultation January 09, 2021 Assessment & Plan (1) ESRD (end stage renal disease): Pt scheduled for permcath insertion later today by Dr Gregg. Will reeval pt in office with US of AVF to assess for maturation. Plan discussed with nephrology as well. Patient was seen, examined, and chart reviewed. Agree with exam and treatment plan of the Vascular PA. History of Present Illness Reason for Consultation: ESRD, need permcath for HD Attending Physician: Rick Tejeda DO History of Present Illness 80 yo f with hx of CHF, pulmonary HTN, DMII, depression, HTN, CKD, cardiomyopathy, peripheral neuropathy, admitted with worsening renal fxn, seen in consultation today for permcath insertion to initiate HD. Pt known to Dr Gregg for L radiocephalic AVF creation on 11/08/20, however, it may not be fully matured. Pt admits fatigue/malaise and [place] G[place]. Denies fever, chest pain, SOB at rest, abd pain, N/V, rest pain, ulcers, other complaints. Allergies Allergy/AdvReac Type Severity Reaction Status Date / Time codeine AdvReac Unknown DOES NOT Verified 12/31/20 00:14 [address] THE [address] IT MAKES HER FEEL. Home Medications Medication Instructions Recorded Confirmed Type ascorbic acid (vitamin C) 500 mg 500 mg PO QAM tab 12/10/18 12/31/20 History tablet aspirin 325 mg tablet 650 mg PO DAILY PRN tab 12/10/18 12/31/20 History multivit with min-folic 1 tab PO QAM 12/10/18 12/31/20 History acid-lutein 400 mcg-250 mcg chewable tablet (Centrum Silver) polyethylene glycol 3350 17 17 gm PO DAILY PRN gm 12/10/18 12/31/20 History gram/dose oral powder venlafaxine 150 mg 150 mg PO QAM cap 12/10/18 12/31/20 History capsule,extended release 24 hr vitamins A,C,L-ypdf-xktkur 14,320 1 cap PO BID cap 12/10/18 12/31/20 History unit-226 mg-200 unit capsule (PreserVision AREDS) calcium carbonate-vitamin D3 600 2 tab PO QAM 03/09/20 12/31/20 History mg(1,500 mg)-400 unit chewable tablet (Calcium 600 with Vitamin D3) insulin glargine 100 unit/mL (3 27 unit SUBCUT QPM ml 05/22/20 12/31/20 History mL) subcutaneous pen (Basaglar KwikPen U-100 Insulin) OneTouch Ultra Blue Test Strip #100 ea NS 08/10/20 12/27/20 Rx (blood sugar diagnostic) Incentive Spirometer #1 ea 10/24/20 12/27/20 Rx atorvastatin 80 mg tablet 80 mg PO QAM #90 tab 10/24/20 12/31/20 Rx metoprolol succinate 100 mg 150 mg PO QAM #90 tab 10/24/20 12/31/20 Rx tablet,extended release 24 hr pen needle, diabetic 32 gauge x #400 ea 10/24/20 12/27/20 Rx " (BD Ultra-Fine [place] Pen Needle) isosorbide mononitrate 120 mg 120 mg PO QAM #90 tab 10/25/20 12/31/20 Rx tablet,extended release 24 hr amlodipine 5 mg tablet 5 mg PO BID #180 tab 11/23/20 12/31/20 Rx Novolog Flexpen U-100 Insulin 100 30 unit SUBCUT DAILY 90 Days #30 12/04/20 12/31/20 Rx unit/mL (3 mL) subcutaneous ml NS (insulin aspart U-100) cholecalciferol (vitamin D3) 25 50 mcg PO BID cap 12/27/20 12/31/20 History mcg (1,000 unit) capsule torsemide 20 mg tablet 40 mg PO DAILY #90 tab 12/27/20 12/31/20 Rx venlafaxine 37.5 mg 37.5 mg PO QAM 12/31/20 12/31/20 History tablet,extended release 24 hr bumetanide 1 mg tablet 2 mg PO BID17 30 Days #60 tab 01/07/21 Rx hydralazine 25 mg tablet 75 mg PO TID 30 Days #270 tab 01/07/21 Rx metoprolol succinate 25 mg 75 mg PO QAM 30 Days #90 tab 01/07/21 Rx tablet,extended release 24 hr Patient History Medical History Acute kidney injury superimposed on chronic kidney disease Anemia Chronic, hgb's in the 10-11 range per chart view, remote hx blood transfusions Carotid artery disease Less than 50% ICA stenosis per 08/2016 carotid duplex 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 Chronic gastroesophageal reflux disease Chronic kidney disease Worsening creatinine now in the 3's under surveillance by nephrology ([facility]), plan for AVF/future dialysis Depression Diabetes IDDM Diabetic peripheral neuropathy associated with type 2 diabetes mellitus Dyslipidemia Gallstones Generalized osteoarthritis of multiple sites Graves disease Per records, TSH WNL 02/2020 labs H/O malignant neoplasm of uterine body Hiatal hernia Hypertension Irregular heart beat metoprolol for this per pt Kidney stones Macular degeneration Moderate calcific aortic stenosis Moderate (ANUJ 1.0cm2, MG 20.8mmhg) per 10/2020 echo Multinodular goiter (nontoxic) Multiple thyroid nodules Obesity Osteopenia Secondary hyperparathyroidism Sleep apnea No device Subclinical hyperthyroidism Type 2 diabetes mellitus with insulin therapy Surgical History Fistula H/O abdominoplasty H/O basal cell carcinoma excision H/O shoulder surgery Right History of appendectomy History of cataract surgery R/L History of colonoscopy History of esophagogastroduodenoscopy (EGD) History of tonsillectomy History of tooth extraction S/P complete hysterectomy Family History Father Lung cancer Diabetes Mother , in a home fire Hypertension Denies family history of Ovarian cancer Prostate cancer Myocardial infarction Breast cancer Colorectal cancer Social History Smoking Status: Former smoker Second Hand Exposure: No; Hx Alcohol Use: No Hx Substance Use: No Preferred Language: Burmese Communication Ability: Effective Visual Impairment: No Limitations Hearing Ability: Normal Slash Trimmer Required: No Beliefs That Will Affect Care: None marital status: / Current Living Situation: Family current occupational status: retired Feels Safe at Home: Yes Safety Concerns Comment: unsteady at times Childhood Exposure to Second-Hand Smoke: Yes Dental Care, Regularly: No Physical Activity Frequency: Does not Exercise Seatbelt Use: always Sunscreen Use: No Assistive Devices: Walker Review of Systems Review of Systems: 14 systems reviewed and negative aside from HPI Physical Exam Constitutional: WD/WN, vitals as above + ill appearing (mildly), + obese, cooperative and comfortable; not in distress ENMT: Ears: no hearing impairment Neck: trachea midline Respiratory: normal respiratory effort Auscultation: + diminished lung sounds Cardiovascular: Rate/Rhythm: regular rate and regular rhythm Vessels: posterior tibial pulses present, dorsalis pedis pulses present and radial pulses present; + abnormal peripheral pulses Extremities: normal capillary refill and + AV fistula (L radiocephalic +thrill/bruit, palpable to upper arm) Gastrointestinal (Abdomen): Inspection/Auscultation: abdomen normal to inspection and normal bowel sounds Percussion/Palpation: abdomen nontender Musculoskeletal: Extremities: + abnormal strength (mild generalized weakness) Skin: no rashes, warm and dry + incision (L wrist incision well healed) Neurologic: moves all extremities and awake; no focal motor deficits Psychiatric: Orientation: alert and oriented x 3 Affect: + depressed affect and + flat affect Results & Data ([facility]) Vital Signs (Past 12 Hours) Vital Signs Temp Pulse Pulse Resp BP Pulse Ox 01/09/21 07:32 35.8 C L 70 22 205/64 H 91 01/09/21 03:57 36.4 C L 74 18 186/69 H 90 01/08/21 23:43 64 01/08/21 23:33 36.4 C L 69 18 195/70 H 90
--- NOTE | 2021-01-09 10:46 | Nephrology Progress Note ---
Date of Service January 09, 2021 Assessment & Plan (1) Acute kidney injury superimposed on chronic kidney disease: Plan: * Admitted w/ CHF * Cr has risen to 4.7 and patient has mild uremic symptoms. AVF is not yet mature for use * EGFR is 8 cc/min. 24 hour urine Clcr is pending * Patient scheduled for IJ THC insertion today followed by 1st run HD * Case management has been consulted to set up outpatient HD at [facility] (2) CKD (chronic kidney disease): Plan: * Baseline Cr has been ~ 3.5 w/ EGFR 10 cc/min. Renal impairment is on the basis of DKD, hypertensive nephrosclerosis * Urine sediment has been acellular * UPCR has been > 3.5. No prior h/o monoclonal gammopathy * 09/29 renal US: R 10.6, L 9.2 w/ 2.3 upper pole cyst. No stone * 12/30 renal artery doppler: no KEO * L RC AVF created 11/08/[address] Gregg. Patient to dialyze at [facility] when necessary (3) Acute exacerbation of CHF (congestive heart failure): Plan: * Had been on a weight based diuretic regimen as outpatient. Target weight 215 lbs. Was taking Torsemide 30 mg po daily PRN weight > 215 lbs * Admit weight was 98.4 kg (216.5 lbs). Patient has required IV Bumex + po Metolazone. She has diuresed 6.9 L since admission and is currently breathing comfortably on O2 at 1L/min NC (SaO2 95%) * Metolazone has been stopped * Bumex has been changed to 2 mg po BID * Recommend advance activity (4) Anemia: Plan: * Patient has completed 1 g Venofer infusion. Hgb is trending up (5) Hypertension: Plan: * BP remains difficult to control * No KEO on doppler this admission * Continue Hydralazine 75 mg po TID * Continue Amlodipine, Isosorbide and Bumex * Expect BP will improve following UF on HD Admission and Anticipated Discharge Date Admission Date: December 31, 2020 Subjective Ms. Bolivar was evaluated in her hospital room this morning. She c/o nausea but denies dyspnea. She is breathing comfortably on RA Review of Systems Constitutional: no fever Eyes: no problem reported Ear, Nose, Mouth, Throat: no problem reported Respiratory: no cough and no dyspnea Cardiovascular: no chest pain Gastrointestinal: + nausea; no abdominal pain Genitourinary: no dysuria and no hematuria Musculoskeletal: no back pain Integumentary: no rash Neurologic: no dizziness Physical Exam Constitutional: not in distress Eyes: PERRL, conjunctivae normal, anicteric sclerae ENMT: external ear and nose normal, oropharynx normal Neck: trachea midline, no thyromegaly Respiratory: normal respiratory effort, lungs clear to auscultation Cardiovascular: Rate/Rhythm: regular rate and regular rhythm Extremities: + edema (trace LE swelling) L RC AVF + bruit but no palpable thrill. Venous limb remains under developed Gastrointestinal (Abdomen): normal bowel sounds, soft, nontender, no hepa tosplenomegaly Musculoskeletal: Extremities: no cyanosis Skin: no rashes, warm and dry Neurologic: awake; not confused Results & Data ([facility]) Vital Signs (Past 12 Hours) Vital Signs Temp Pulse Pulse Resp BP Pulse Ox 01/09/21 07:32 35.8 C L 70 22 205/64 H 91 01/09/21 03:57 36.4 C L 74 18 186/69 H 90 01/08/21 23:43 64 01/08/21 23:33 36.4 C L 69 18 195/70 H 90 Laboratory Results Laboratory Tests 01/09/21 01/09/21 07:38 07:38 WBC 6.36 Hgb 9.7 L Hct 31.8 L Plt Count 258 Sodium 139 Potassium 4.0 Chloride 103 Carbon Dioxide 30 BUN 90 H Creatinine 4.68 H* Est GFR (Non-Af Amer) 8.3 Glucose 103 H Calcium 9.7 PG Care Time/CCT Total # of Minutes Spent Total Time Spent with Patient: Total time spent is greater than 50% in coordination of care (as documented) at patient's floor/unit and/or counseling patient: Coding Level of Care Code 36223 Subseq Hosp Care Lvl 3 Diagnoses Acute kidney injury superimposed on chronic kidney disease N17.9; N18.9 CKD (chronic kidney disease) N18.9 Chronic kidney disease stage: unspecified stage Acute exacerbation of CHF (congestive heart failure) I50.9 Heart failure type: unspecified Anemia D64.9 Hypertension I10 (1) CKD (chronic kidney disease) Chronic kidney disease stage: unspecified stage Qualified Code(s): N18.9 - Chronic kidney disease, unspecified (2) Acute exacerbation of CHF (congestive heart failure) Heart failure type: unspecified Qualified Code(s): I50.9 - Heart failure, unspecified
--- NOTE | 2021-01-09 10:57 | History & Physical Bridge Note ---
Date of Service January 09, 2021 History & Physical Bridge Note Patient for permcath insertion today. I have discussed the risks options and benefits of the procedure with the patient. The patient understands the risks options and benefits and agrees to the procedure. I have examined the patient, reviewed the History & Physical and in the interval since the performance of the History & Physical I have noted the following changes of clinical significance: no changes noted
[2021-01-09] MEDS ORDERED: fentaNYL citrate 100 MCG/2 ML VIAL ONE (11:02)
[2021-01-09] MEDS ORDERED: HEPARIN SOD (PORCINE) 5,000 UNITS/ML VIAL ONE (11:02)
[2021-01-09] MEDS ORDERED: LIDOCAINE 1% LOCAL 20 ML VIAL ONE ×2 (11:02→11:54)
[2021-01-09] MEDS ORDERED: MIDAZOLAM HCL 1 MG/ML 2ML VIAL ONE ×2 (11:02→11:49)
--- NOTE | 2021-01-09 11:39 | Pre Anesthesia Assessment ---
Date of Service January 09, 2021 Pre Sedation Assessment Vital Signs Temp Pulse Pulse Pulse Resp BP Pulse Ox 01/09/21 11:34 71 20 202/80 H 100 01/09/21 11:08 36.3 C L 66 66 18 188/58 H 96 01/09/21 07:32 35.8 C L 70 22 205/64 H 91 01/09/21 03:57 36.4 C L 74 18 186/69 H 90 01/08/21 23:43 64 01/08/21 23:33 36.4 C L 69 18 195/70 H 90 01/08/21 19:51 36.6 C 67 18 195/62 H 90 01/08/21 15:36 36.5 C 92 H 18 170/51 H 95 01/08/21 13:51 165/71 H Cardiovascular RRR, no murmur, no edema Respiratory normal respiratory effort, lungs clear to auscultation Pre-Sedation Airway Assessment Smoking Status: Former smoker Hx Sleep Apnea: No (pt denies but emr states has sleep apnea) Short, Thick Neck: No Thyromental Distance: > or= 3.5 Finger Breadths Oral Cavity: + Dental Abnormalities Mallampati Class: III ASA: ASA4 NPO Status Date of Last Intake of Fluids: 01/08/21 Time of Last Intake of Fluids: 00:00 Last Oral Intake of Fluids Comment: sip of water with meds this am Date of Last Intake of Solid Food: 01/07/21 Time of Last Intake of Solid Foods: 00:00 Last Intake of Solids Comment: "i ate nothing yesterday and very little the day before" Procedure Planning Contraindications for Sedation: none Current Medications Reviewed: Yes Notes The planned sedation has been discussed with the patient. Informed Consent was obtained. I have identified the patient, determined the appropriateness of sedation and have assessed the patient immediately prior to the procedure. All medicine(s) and interventions are by my order.
--- NOTE | 2021-01-09 12:09 | Post Operative Brief Note ---
Immediate Post Op Note v1 Date of Surgery January 09, 2021 Pre & Post Diagnosis Operation Date: 01/09/21 11:30 Pre-Op Diagnosis: End Stage Renal Disease Post-Op Diagnosis: End Stage Renal Disease I identified the patient and participated in the time-out.: Yes Procedure Operation Date: 01/09/21 11:30 Actual Procedures p Insertion of Perm Catheter, Right Internal Jugular Approach, Ultrasound Localization of Right internal Jugular Vein, Fluoroscopy for Positioning, Moderate Sedation [id number](Right) - Faheem Gregg MD Surgeon Faheem Gregg MD Acid Blower MD Mickey Estimated Blood Loss 5 Findings Consistent with Post-Op Diagnosis Anesthesia Type RN Sedation Complications none Disposition Accompanied Patient To Recovery: No Disposition: Recovery Room
--- NOTE | 2021-01-09 12:10 | Procedure Note ---
Angiogram Post Procedure Fluoroscopy Time (minutes): 0.6 Post Operative Report Pre & Post Diagnosis Operation Date: 01/09/21 11:30 Pre-Op Diagnosis: End Stage Renal Disease Post-Op Diagnosis: End Stage Renal Disease I identified the patient and participated in the time-out.: Yes Procedure Operation Date: 01/09/21 11:30 Actual Procedures p Insertion of Perm Catheter, Right Internal Jugular Approach, Ultrasound Localization of Right internal Jugular Vein, Fluoroscopy for Positioning, Moderate Sedation 1138-(Right) - Faheem Gregg MD Surgeon Faheem Gregg MD Dancer Or Choreographer Sadia Magallon MD Estimated Blood Loss 5 Findings See Below Specimens None Anesthesia Type RN Sedation Complications None immediate Disposition Accompanied Patient To Recovery: No Disposition: Recovery Room Indications Need for long-term hemodialysis access Description of Procedure Patient was taken to the angio suite and placed in the supine position. The right side of the neck and chest wall were prepped and draped in a sterile manner. A team timeout was performed including confirmation of the patient's identity, surgical site, and surgical procedure. Local anesthesia was then administered to the appropriate areas of the neck and chest wall. Ultrasound was then used to locate the right internal jugular vein. The vein compressed easily, had no filing defects, and was patent. The vein was then punctured under direct ultrasound imaging. A guidewire was then passed centrally under fluoroscopic imaging. A stab wound was then made in the anterior chest wall and a 19 cm permcath was passed from the stab wound on the chest wall to the puncture site on the neck. The puncture site was then dilated till the 14Fr peel away sheath was inserted. The permcath was then inserted through the sheath to a central position in the distal superior vena cava. The peel away sheath was then removed. The catheter was then sutured in place using nylon sutures. The puncture was then closed using a 4-0 Vicryl subcuticular suture. Dermabond was used for a dressing on the puncture site. Both ports aspirated and flushed easily and were then packed with heparin. A sterile dressing was applied to the catheter. The patient tolerated the procedure well and without immediate complication. The patient was taken to the recovery room in satisfactory condition. Dr. Gregg was present and scrubbed for the entirety of the procedure. I attest to the content of the Intraoperative Record and any orders documented therein. Any exceptions are noted below.
--- NOTE | 2021-01-09 12:24 | Post Anesthesia Assessment ---
Date of Service January 09, 2021 Post Sedation Assessment Vital Signs Temp Pulse Pulse Pulse Resp BP Pulse Ox 01/09/21 12:14 60 18 183/77 H 90 01/09/21 12:09 60 18 154/64 H 94 01/09/21 12:08 60 18 147/64 H 98 01/09/21 12:03 60 18 155/64 H 100 01/09/21 11:58 61 20 164/70 H 100 01/09/21 11:53 63 20 189/77 H 100 01/09/21 11:48 64 20 200/77 H 100 01/09/21 11:43 67 20 200/98 H 100 01/09/21 11:38 70 20 208/93 H 100 01/09/21 11:34 71 20 202/80 H 100 01/09/21 11:08 36.3 C L 66 66 18 188/58 H 96 01/09/21 07:32 35.8 C L 70 22 205/64 H 91 01/09/21 03:57 36.4 C L 74 18 186/69 H 90 01/08/21 23:43 64 01/08/21 23:33 36.4 C L 69 18 195/70 H 90 01/08/21 19:51 36.6 C 67 18 195/62 H 90 01/08/21 15:36 36.5 C 92 H 18 170/51 H 95 01/08/21 13:51 165/71 H Recovery Score Activity: Moves 4 extremities Respiration: Deep Breath/Cough Circulation: +/-20% PreAnes Value Consciousness: Fully Awake Oxygen Saturation: O2 needed for >90% Post Anesthesia Score: 9 Discharge Sedation Level of Care: Fast Track Phase II Post Sedation Plan On clinical assessment, the patient appears to have tolerated the sedation without complications. Patient is recovering as anticipated. Patient will continue to be monitored by nursing and may be discharged when sedation discharge criteria are met per below protocol. Upon Completions of procedure up to 15 minutes continue every 5 minute vital signs and the P.A.R. score; then discharge to a Phase I or Fast Track to Phase II per the following guidelines: * Discharge Patient to appropriate Phase II area if PAR is 8 or greater or return to pre- procedure baseline. The post - procedure orders will be as directed. * If PAR score is less than 8 or not return to pre-procedure baseline then patient will follow Phase I monitoring till PAR is reached for Phase II. The Phase I may be done in procedure room or may call to secure a Phase I area. * If naloxone or flumazenil are used for reversal, hold in Phase I for continued monitoring from when last reversal dose was given for a minimum of 60 minutes or longer pending the nurse and/or physician discretion of patient condition before discharge to Phase II. Please call the Sedation Physician to re-evaluate and complete post-note for discharge to Phase II area. Do NOT discharge from procedure sedation or Phase 1 until post- sedation evaluation note is complete by procedure /sedation MD Sedation Discharge Instructions to be given to the patient at discharge to home.
[2021-01-09 12:52] LABS: Patient Weight 92.2 kg
[2021-01-09] MEDS: D5W AND 1/4NSS 1,000 ML IV SCH (13:15)
[2021-01-09 13:59] LABS: Creatinine 24 Hour Urine 0.4 gm/24 HR (0.6-2.5); Creatinine Clearance Urine 4.6 ml/min (88-128); Urine Creatinine 38.9 mg/dl
[2021-01-09] MEDS ORDERED: Nursing to Pharmacy Communication SCH (16:00)
--- NOTE | 2021-01-09 18:52 | Billing Data ---
Date of Service January 09, 2021 Coding Level of Care Code 76268 Subseq Hosp Care Lvl 2
[2021-01-09] MEDS: INSULIN GLARGINE SOLOSTAR 100 UNITS/ML 3 ML PEN SQ SCH (21:32)
[2021-01-10 06:09] LABS: Basophils # (auto) 0.03 K/uL (0-0.2); Basophils % (auto) 0.5 %; Eosinophils # (auto) 0.25 K/uL (0-0.5); Eosinophils % (auto) 4.1 %; Hemoglobin 9.9 g/dL (12.0-16.0); Immature Granulocytes # (auto) 0.04 K/uL (0.00-0.02); Immature Granulocytes % (auto) 0.7 %; Lymphocytes # (auto) 1.19 K/uL (1.2-3.4); Lymphocytes % (auto) 19.5 %; Mean Corpuscular Hemoglobin 27.2 pg (25-34); Mean Corpuscular Hgb Conc 30.9 g/dL (32-36); Mean Corpuscular Volume 87.9 fL (80-100); Mean Platelet Volume 9.1 fL (7.4-10.4); Monocytes # (auto) 0.82 K/uL (0.11-0.59); Monocytes % (auto) 13.4 %; Neutrophils # (auto) 3.78 K/uL (1.4-6.5); Neutrophils % (auto) 61.8 %; Platelet Count 226 K/uL (130-400); RDW Coefficient of Variation 16.7 % (11.5-14.5); Red Blood Count 3.64 M/uL (4.2-5.4); White Blood Count 6.11 K/uL (4.8-10.8)
[2021-01-10 06:47] LABS: BUN Creatinine Ratio 16.2 (10-20); Calcium 9.2 mg/dl (8.5-10.1); Creatinine Clr Calc Pharmacy 12.5 ml/min; Est GFR (African American) 11.1 ml/min; Est GFR (Non-African American) 9.6 ml/min; Potassium 3.8 mmol/L (3.5-5.1)
--- NOTE | 2021-01-10 07:16 | Hospitalist Progress Note ---
Date of Service January 10, 2021 Assessment & Plan (1) Acute exacerbation of CHF (congestive heart failure): Plan: 80yo female with a history of HFrEF, IDDM2, ESRD, multinodular goiter, BL pleural effusions, HLD, HTN, admitted for acute hypoxic respiratory failure s econdary to volume overload from acute HFpEF and worsening CKD. ESRD Cr 3.5-4.0, GFR ~10, approximately baseline; patient is approaching need for dialysis Creatinine increasing (4.1) following diuretic therapy -- stabilized at this level prior to discharge Has an AV fistula though not yet mature/ready for use 01/09: nephrology placed a tunneled catheter, patient underwent first HD treatment, tolerated well, 2L UF removed 01/10: nephrology plans to perform a second HD treatment, goal to remove of 2L UF Plan to receive dialysis at [facility] when needed in the future HFrEF exacerbation: resolved BNP on admission 17,393; echo (10/30) shows EF 45-50%, moderate aortic stenos is, moderate MR, mild LVH Torsemide was previously increased to 40mg daily without much improvement Nephrology recommends continued diuresis Continue bumex 2mg bid Stop metolazone, torsemide Achieved adequate I&O balance with resolution of AHRF prior to discharge following aggressive diuresis Currently stable and satting well on room air Continue to monitor Bilateral pleural effusions Chronic, follows with Dr. Ceja Thoracentesis performed on 01/01 (right side) and 01/02 (left side) Thoracentesis fluid transudative per Light's criteria No intervention currently indicated Anticipate improvement with hemodialysis Acute hypoxic respiratory failure: resolved Secondary to CHF exacerbation Greatly improved with diuresis, now stable on room air Suspect nocturnal desaturations are secondary to underlying PREM, would benefit from outpatient sleep study Hypertension On amlodipine, metoprolol, isosorbide at home Renal doppler done here without evidence of KEO Continue hydralazine 75mg Anticipate improvement with hemodialysis Epigastric pain, nausea: resolved Started 01/04, suspected to be secondary to GERD Improved with famotidine, continue famotidine 20mg bid Bradycardia: resolved Intermittently bradycardic to 50s, asymptomatic Home metoprolol decreased from 150mg to 75mg CAD Continue isosorbide, aspirin, statin, metoprolol IDDM2 Home regimen held (basaglar 27 units sq PM) while here, utilized SSI 12/31: hypoglycemic to 63, likely 2/2 decreased PO intake overnight during initial admission Per pharmacy recommendation, lantus decreased to 10U Sacral pressure ulcer Wound care following Chronic anemia Hgb 9.8, baseline 10-11 Patient is s/p venofer infusion FEN: low sodium, heart healthy, fluid restriction to 1L Code status: no intubation, OK for CPR, defibrillation DVT ppx: SCDs Isolation: none Consults: nephrology, pulmonology PT/OT: following Dispo: med/surg (2) Hypoxemia: (3) Urinary Incontinence: (4) Ambulatory dysfunction: (5) Type 2 diabetes mellitus with insulin therapy: (6) Multinodular goiter (nontoxic): (7) ESRD (end stage renal disease): (8) Bilateral pleural effusion: (9) Moderate calcific aortic stenosis: (10) Graves disease: (11) Respiratory acidosis: (12) Bradycardia: Admission and Anticipated Discharge Date Admission Date: December 31, 2020 Supervising Physician Co-Signing Physician Notes I personally examined the patient and verified all tinajero points of history and exam, discussed case, and agree with decision making with Dr Clancy Eating lunch and actually feeling about as good as she can remember in quite a while. Generally overall better, seems to have less malaise. Breathing okay. Mostly she is worried about her kids, they are diabetics as well, she notes that she got to this point by not taking care of herself and she is worried they will do the same. We discussed a lot about diabetes educationand how she can pass this along to her children. Vitals noted, in general she is awake and alert pleasant no distress. HEENT normocephalic atraumatic mucous membranes moist. Breathing unlabored no accessory muscle use good effort. Skin shows no rashes no pallor or icterus. Neuro without focal deficits. HFpEF/ESRDappears predominantly to be failing med managementstarted dialysis, feeling much better. Otherwise as per nephrology. Otherwise as above. Subjective Patient seen and evaluated at bedside this morning. No acute events overnight. Patient feels well today, noting a considerable improvement compared to yesterday. Patient tolerated her first HD treatment well and only complains of fatigue. Endorses minimal SOB which is an improvement compared to yesterday. Patient denies CP, abdominal pain, nausea, vomiting, lightheadedness, dizziness, and diarrhea. Review of Systems Review of Systems: See HPI Physical Exam Physical Exam: Constitutional: well-appearing, no acute distress CV: regular rhythm, no murmur appreciated, extremities well-perfused, no LE edema Resp: CTABL, no wheezes/rales/rhonchi appreciated, no increased work of breathi ng, fair air movement Skin: warm, dry, no rash appreciated Neuro: AOx4, no focal neurological deficits appreciated Results & Data Results & Data ([facility]) Vital Signs (Past 12 Hours) Vital Signs Temp Pulse Pulse Resp BP Pulse Ox 01/10/21 04:00 36.6 C 69 20 203/62 H 93 01/10/21 00:52 68 01/09/21 23:00 37 C 71 20 186/62 H 91 01/09/21 20:00 37.2 C 76 20 193/68 H 94 Resident Activity Tracking Resident Involvement: Resident Care Provided Care Provided: Adult Hospital Medicine (1) Acute exacerbation of CHF (congestive heart failure) Heart failure type: unspecified Qualified Code(s): I50.9 - Heart failure, unspecified
[2021-01-10] MEDS: amLODIPine BESYLATE 5 MG TAB PO SCH (07:52)
[2021-01-10] MEDS: FAMOTIDINE 20 MG TAB PO SCH ×2 (07:52→20:41)
[2021-01-10] MEDS: METOPROLOL SUCC 25MG EXT REL TAB PO SCH (07:52)
[2021-01-10] MEDS: hydrALAZINE HCL 25 MG TAB PO SCH ×3 (07:52→20:43)
[2021-01-10] MEDS: VENLAFAXINE HCL XR 37.5 MG CAPXR PO SCH (07:52)
[2021-01-10] MEDS: ATORVASTATIN 40 MG TAB PO SCH (07:53)
[2021-01-10] MEDS: ISOSORBIDE MONO EXTENDED REL 60 MG TABCR PO SCH (07:53)
[2021-01-10] MEDS: VENLAFAXINE HCL XR 150 MG CAPXR PO SCH (07:53)
[2021-01-10] MEDS: CEROVITE ADV FORMULA TAB PO SCH (07:53)
[2021-01-10] MEDS: NEPHROCAPS PO SCH (07:53)
[2021-01-10] MEDS: BUMETANIDE 1 MG TAB PO SCH ×2 (07:53→16:41)
[2021-01-10] MEDS: INSULIN ASPART 100 UNITS/ML 3 ML PEN SC SCH ×4 (07:54→20:43)
[2021-01-10] MEDS ORDERED: SODIUM CHLORIDE 0.9% 1000ML 1,000 ML IV PRN (08:42)
--- NOTE | 2021-01-10 10:12 | Nephrology Progress Note ---
Date of Service January 10, 2021 Assessment & Plan (1) Acute kidney injury superimposed on chronic kidney disease: Plan: * Admitted w/ CHF * Cr has risen to 4.7 and patient has mild uremic symptoms. AVF is not yet mature for use * EGFR is 8 cc/min. 24 hour urine Clcr 4.6 cc/min * R IJ THC placed and 1st run HD completed 01/09/21 * Case management has been consulted to set up outpatient HD at [facility] * Will provide 2nd HD treatment today and attempt 2 L UF (2) CKD (chronic kidney disease): Plan: * Baseline Cr has been ~ 3.5 w/ EGFR 10 cc/min. Renal impairment is on the basis of DKD, hypertensive nephrosclerosis * Urine sediment has been acellular * UPCR has been > 3.5. No prior h/o monoclonal gammopathy * 09/29 renal US: R 10.6, L 9.2 w/ 2.3 upper pole cyst. No stone * 12/30 renal artery doppler: no KEO * L RC AVF created 11/08/[address] Gregg. Patient to dialyze at [facility] when necessary (3) Acute exacerbation of CHF (congestive heart failure): Plan: * Now on HD. Challenging EDW * Continue Bumex since patient still makes urine * CHF resolved. Advance activity. Needs PT evaluation to determine whether patient may return home or require short stay at SNF for ongoing PT (4) Anemia: Plan: * Patient has completed 1 g Venofer infusion. Hgb is trending up (5) Hypertension: Plan: * BP remains difficult to control * No KEO on doppler this admission * Continue Hydralazine 75 mg po TID * Continue Amlodipine, Isosorbide and Bumex * Expect BP will improve following UF on HD Admission and Anticipated Discharge Date Admission Date: December 31, 2020 Subjective Ms. Bolivar was evaluated in her hospital room this morning. She had her 1 st dialysis treatment yesterday for 2 hours using IJ THC - no complications. 2L UF obtained. Ms. Bolivar reports that she was up walking in her room yesterday. She declined PT. Review of Systems Constitutional: no fever Eyes: no problem reported Ear, Nose, Mouth, Throat: no problem reported Respiratory: no cough and no dyspnea Cardiovascular: no chest pain Gastrointestinal: + nausea; no abdominal pain Genitourinary: no dysuria and no hematuria Musculoskeletal: no back pain Integumentary: no rash Neurologic: no dizziness Physical Exam Constitutional: not in distress Eyes: PERRL, conjunctivae normal, anicteric sclerae ENMT: external ear and nose normal, oropharynx normal Neck: trachea midline, no thyromegaly Respiratory: normal respiratory effort, lungs clear to auscultation Cardiovascular: Rate/Rhythm: regular rate and regular rhythm Extremities: + edema (trace LE swelling) Gastrointestinal (Abdomen): normal bowel sounds, soft, nontender, no hepatosplenomegaly Musculoskeletal: Extremities: no cyanosis Skin: no rashes, warm and dry Neurologic: awake; not confused Results & Data ([facility]) Vital Signs (Past 12 Hours) Vital Signs Temp Pulse Pulse Resp BP Pulse Ox 01/10/21 07:48 36.7 C 69 20 196/74 H 90 01/10/21 07:38 70 01/10/21 04:00 36.6 C 69 20 203/62 H 93 01/10/21 00:52 68 01/09/21 23:00 37 C 71 20 186/62 H 91 Laboratory Results Laboratory Tests 01/10/21 01/10/21 05:36 05:36 WBC 6.11 Hgb 9.9 L Hct 32.0 L Plt Count 226 Sodium 140 Potassium 3.8 Chloride 107 Carbon Dioxide 26 BUN 68 H Creatinine 4.18 H D Glucose 68 L PG Care Time/CCT Total # of Minutes Spent Total Time Spent with Patient: Total time spent is greater than 50% in coordination of care (as documented) at patient's floor/unit and/or counseling patient: Coding Level of Care Code 48530 Subseq Hosp Care Lvl 3 Diagnoses Acute kidney injury superimposed on chronic kidney disease N17.9; N18.9 CKD (chronic kidney disease) N18.9 Chronic kidney disease stage: unspecified stage Acute exacerbation of CHF (congestive heart failure) I50.9 Heart failure type: unspecified Anemia D64.9 Hypertension I10 (1) CKD (chronic kidney disease) Chronic kidney disease stage: unspecified stage Qualified Code(s): N18.9 - Chronic kidney disease, unspecified (2) Acute exacerbation of CHF (congestive heart failure) Heart failure type: unspecified Qualified Code(s): I50.9 - Heart failure, unspecified
[2021-01-10 10:40] LABS: Hepatitis B Surface Ab Quant < 3.10 mIU/mL (>or=10mIU/mL Immune); Hepatitis B Surface Antibody Non-Immune
[2021-01-10 10:50] LABS: Hepatitis B Surf Ag Rflx Conf Neg (Neg)
[2021-01-10] MEDS: D5W AND 1/4NSS 1,000 ML IV SCH (12:18)
--- NOTE | 2021-01-10 20:24 | Billing Data ---
Date of Service January 10, 2021 Coding Level of Care Code 91669 Subseq Hosp Care Lvl 2
[2021-01-10] MEDS: INSULIN GLARGINE SOLOSTAR 100 UNITS/ML 3 ML PEN SQ SCH (20:43)
[2021-01-11 06:45] LABS: Basophils # (auto) 0.02 K/uL (0-0.2); Basophils % (auto) 0.3 %; Eosinophils % (auto) 5.4 %; Hematocrit (blood only) 32.6 % (37-47); Hemoglobin 9.9 g/dL (12.0-16.0); Immature Granulocytes # (auto) 0.06 K/uL (0.00-0.02); Immature Granulocytes % (auto) 0.8 %; Lymphocytes # (auto) 1.42 K/uL (1.2-3.4); Lymphocytes % (auto) 19.3 %; Mean Corpuscular Hemoglobin 26.8 pg (25-34); Mean Corpuscular Hgb Conc 30.4 g/dL (32-36); Mean Corpuscular Volume 88.3 fL (80-100); Mean Platelet Volume 9.6 fL (7.4-10.4); Monocytes # (auto) 1.19 K/uL (0.11-0.59); Monocytes % (auto) 16.2 %; Neutrophils # (auto) 4.26 K/uL (1.4-6.5); Platelet Count 206 K/uL (130-400); RDW Coefficient of Variation 16.8 % (11.5-14.5); RDW Standard Deviation 54.9 fL (36.4-46.3); Red Blood Count 3.69 M/uL (4.2-5.4); White Blood Count 7.35 K/uL (4.8-10.8)
--- NOTE | 2021-01-11 07:26 | Hospitalist Progress Note ---
Date of Service January 11, 2021 Assessment & Plan (1) Acute exacerbation of CHF (congestive heart failure): Plan: 80yo female with a history of HFrEF, IDDM2, ESRD, multinodular goiter, BL pleural effusions, HLD, HTN, admitted for acute hypoxic respiratory failure s econdary to volume overload from acute HFpEF and worsening CKD. ESRD Cr 3.5-4.0, GFR ~10, approximately baseline; patient is approaching need for dialysis Creatinine increasing (4.1) following diuretic therapy -- stabilized at this level prior to discharge Has an AV fistula though not yet mature/ready for use 01/09: nephrology placed a tunneled catheter, patient underwent first HD treatment, tolerated well, 2L UF removed 01/10: underwent second HD treatment, removed 1.7L UF Plan to receive dialysis at [facility] when needed in the future HFrEF exacerbation: resolved BNP on admission 17,393; echo (10/30) shows EF 45-50%, moderate aortic stenosis, moderate MR, mild LVH Torsemide was previously increased to 40mg daily without much improvement Nephrology recommends continued diuresis Continue bumex 2mg bid Stop metolazone, torsemide Achieved adequate I&O balance with resolution of AHRF prior to discharge following aggressive diuresis Currently stable and satting well on room air Continue to monitor Bilateral pleural effusions Chronic, follows with Dr. Ceja Thoracentesis performed on 01/01 (right side) and 01/02 (left side) Thoracentesis fluid transudative per Light's criteria No intervention currently indicated Anticipate improvement with hemodialysis Acute hypoxic respiratory failure: resolved Secondary to CHF exacerbation Greatly improved with diuresis, now stable on room air Suspect nocturnal desaturations are secondary to underlying PREM, would benefit from outpatient sleep study Hypertension On amlodipine, metoprolol, isosorbide at home Renal doppler done here without evidence of KEO Continue hydralazine 75mg Anticipate improvement with hemodialysis Epigastric pain, nausea: resolved Started 01/04, suspected to be secondary to GERD Improved with famotidine, continue famotidine 20mg bid Bradycardia: resolved Intermittently bradycardic to 50s, asymptomatic Home metoprolol decreased from 150mg to 75mg CAD Continue isosorbide, aspirin, statin, metoprolol IDDM2 Home regimen held (basaglar 27 units sq PM) while here, utilized SSI 12/31: hypoglycemic to 63, likely 2/2 decreased PO intake overnight during initial admission Per pharmacy recommendation, lantus decreased to 10U Sacral pressure ulcer Wound care following Chronic anemia Hgb 9.8, baseline 10-11 Patient is s/p venofer infusion FEN: low sodium, heart healthy, fluid restriction to 1L Code status: no intubation, OK for CPR, defibrillation DVT ppx: SCDs Isolation: none Consults: nephrology, pulmonology PT/OT: following Dispo: med/surg, discharge pending PT/OT eval (2) Hypoxemia: (3) Urinary Incontinence: (4) Ambulatory dysfunction: (5) Type 2 diabetes mellitus with insulin therapy: (6) Multinodular goiter (nontoxic): (7) ESRD (end stage renal disease): (8) Bilateral pleural effusion: (9) Moderate calcific aortic stenosis: (10) Graves disease: (11) Respiratory acidosis: (12) Bradycardia: Admission and Anticipated Discharge Date Admission Date: December 31, 2020 Supervising Physician Co-Signing Physician Notes I personally examined the patient and verified all tinajero points of history and exam, discussed case, and agree with decision making with Dr Clancy Seen in the eveningfeeling well. In discussing discharge planning, she notes she really does not want to go to SNF. Discussed PT and OT findings, she noted she still would really not want ago. Walked with patientshe was slow but ove rall steady, showed good safety awareness, we probably walked 30 feet out of her room turned around and came backshe did the whole thing unassisted but with a walker. Discussed with case managementshcici does not yet have an appointment/chair time for outpatient dialysisthey were working on her discharge arrangements, but still working off of the patient's previously stated plan of going for rehab at SNF. In the midst of my discussions with the patient, she called her daughter to come pick her up, in spite of my telling her there were many loose ends to figure out for safe discharge planningwith our visitor policy as it currently stands, I met the daughter in the lobby and had a good, extensive discussion with her. She noted that she would prefer mom to come home instead of a facility to I discussed what I was seeing with her weakness, she notes mom has multiple walkers at home but just does not use them. Otherwise she feels safe looking after mom, and feels that the plan to go home is reasonable. At the same time she also expressed a bit of frustration with her mom at calling to pick her up whenever it was clear that the discharge plan was not yet finalized, but noted "that is just my mom". We discussed what it would take to finalize discharge plans and the anticipation that she can probably go home tomorrow. Vitals noted, in general she is awake and alert pleasant no distress. HEENT normocephalic atraumatic mucous membranes moist. Breathing unlabored no accessory muscle use good effort. Skin shows no rashes no pallor or icterus. Neuro without focal deficits. Gait as above. HFpEF/ESRDappears predominantly to be failing med managementstarted dialysis, feeling much better. Otherwise as per nephrology. Anticipate dialysis again tomorrow, then likely home for outpatient dialysis. WeaknessPT/OT input noted, discussed with patient, she is weak enough that she would benefit from SNF, but is of sound mind/has capacity and really does not want to go. We walked together, and while she is weak and somewhat unsteady, she does seem to show reasonably good safety awareness, and we discussed how important this would be if she goes home once SNF would be more indicated. Given her capacity to make her own decisions, certainly we cannot have her go somewhere against her will, but given her family support, and her reviewing her situation rationally, it seems cautiously reasonable for her to go home. Outpatient PT to continue. Otherwise as above. Subjective Patient seen and evaluated at bedside this morning. No acute events overnight. Patient feels well this morning. Patient's fatigue that came on after her HD treatments has improved, as has her SOB. Patient denies CP, abdominal pain, nausea, vomiting, lightheadedness, dizziness, and diarrhea. Review of Systems Review of Systems: See HPI Physical Exam Physical Exam: Constitutional: well-appearing, no acute distress CV: regular rhythm, no murmur appreciated, extremities well-perfused, no LE edema Resp: CTABL, no wheezes/rales/rhonchi appreciated, no increased work of breathing, fair air movement Skin: warm, dry, no rash appreciated Neuro: AOx4, no focal neurological deficits appreciated Results & Data Results & Data ([facility]) Vital Signs (Past 12 Hours) Vital Signs Temp Pulse Pulse Resp BP Pulse Ox 01/11/21 04:16 36.5 C 64 20 129/78 92 01/10/21 23:00 36.7 C 72 20 178/63 H 93 01/10/21 22:25 75 (1) Acute exacerbation of CHF (congestive heart failure) Heart failure type: unspecified Qualified Code(s): I50.9 - Heart failure, unspecified
[2021-01-11 07:29] LABS: BUN Creatinine Ratio 11.9 (10-20); Calcium 9.4 mg/dl (8.5-10.1); Creatinine Clr Calc Pharmacy 14.8 ml/min; Est GFR (African American) 13.7 ml/min; Est GFR (Non-African American) 11.8 ml/min
[2021-01-11] MEDS: hydrALAZINE HCL 25 MG TAB PO SCH ×3 (09:10→20:33)
[2021-01-11] MEDS: VENLAFAXINE HCL XR 37.5 MG CAPXR PO SCH (09:10)
[2021-01-11] MEDS: VENLAFAXINE HCL XR 150 MG CAPXR PO SCH (09:10)
[2021-01-11] MEDS: FAMOTIDINE 20 MG TAB PO SCH ×2 (09:10→20:33)
[2021-01-11] MEDS: ISOSORBIDE MONO EXTENDED REL 60 MG TABCR PO SCH (09:10)
[2021-01-11] MEDS: NEPHROCAPS PO SCH (09:10)
[2021-01-11] MEDS: CEROVITE ADV FORMULA TAB PO SCH (09:10)
[2021-01-11] MEDS: METOPROLOL SUCC 25MG EXT REL TAB PO SCH (09:11)
[2021-01-11] MEDS: amLODIPine BESYLATE 5 MG TAB PO SCH (09:11)
[2021-01-11] MEDS: ATORVASTATIN 40 MG TAB PO SCH (09:11)
[2021-01-11] MEDS: BUMETANIDE 1 MG TAB PO SCH ×2 (09:11→17:49)
[2021-01-11] MEDS: INSULIN ASPART 100 UNITS/ML 3 ML PEN SC SCH ×4 (09:12→20:34)
--- NOTE | 2021-01-11 10:43 | Nephrology Progress Note ---
Date of Service January 11, 2021 Assessment & Plan (1) Acute kidney injury superimposed on chronic kidney disease: Plan: * Admitted w/ CHF * Cr gustavo to 4.7 and patient had mild uremic symptoms. AVF was not yet mature for use * EGFR is 8 cc/min. 24 hour urine Clcr 4.6 cc/min * R IJ THC placed and 1st run HD completed 01/09/21 * Case management has been consulted to set up outpatient HD at [facility] * Volume status improved, electrolyte balance is acceptable. No acute indication for HD today (2) CKD (chronic kidney disease): Plan: * Baseline Cr has been ~ 3.5 w/ EGFR 10 cc/min. Renal impairment is on the basis of DKD, hypertensive nephrosclerosis * Urine sediment has been acellular * UPCR has been > 3.5. No prior h/o monoclonal gammopathy * 09/29 renal US: R 10.6, L 9.2 w/ 2.3 upper pole cyst. No stone * 12/30 renal artery doppler: no KEO * L RC AVF created 11/08/[address] Gregg. Patient to dialyze at [facility] when necessary (3) Acute exacerbation of CHF (congestive heart failure): Plan: * Now on HD. Challenging EDW * Continue Bumex since patient still makes urine * CHF resolved. Advance activity. Needs PT evaluation to determine whether patient may return home or require short stay at SNF for ongoing PT (4) Anemia: Plan: * Patient has completed 1 g Venofer infusion. Hgb is trending up (5) Hypertension: Plan: * BP remains difficult to control * No KEO on doppler this admission * Continue Hydralazine 75 mg po TID * Continue Amlodipine, Isosorbide and Bumex * Expect BP will improve following UF on HD Admission and Anticipated Discharge Date Admission Date: December 31, 2020 Subjective Ms. Bolivar was evaluated in her hospital room this morning. She had her 2nd dialysis treatment yesterday for 3 hours using IJ THC - no complications. 1.7 L UF obtained. Ms. Bolivar reports that she was up walking in her room yesterday. She hopes to return home soon. Review of Systems Constitutional: no fever Eyes: no problem reported Ear, Nose, Mouth, Throat: no problem reported Respiratory: no cough and no dyspnea Cardiovascular: no chest pain Gastrointestinal: + nausea; no abdominal pain Genitourinary: no dysuria and no hematuria Musculoskeletal: no back pain Integumentary: no rash Neurologic: no dizziness Physical Exam Constitutional: not in distress Eyes: PERRL, conjunctivae normal, anicteric sclerae ENMT: external ear and nose normal, oropharynx normal Neck: trachea midline, no thyromegaly Respiratory: normal respiratory effort, lungs clear to auscultation Cardiovascular: Rate/Rhythm: regular rate and regular rhythm Extremities: + edema (trace LE swelling) Gastrointestinal (Abdomen): normal bowel sounds, soft, nontender, no hepatosplenomegaly Musculoskeletal: Extremities: no cyanosis Skin: no rashes, warm and dry Neurologic: awake; not confused Results & Data ([facility]) Vital Signs (Past 12 Hours) Vital Signs Temp Pulse Pulse Resp BP Pulse Ox 01/11/21 08:00 36.4 C L 68 18 190/62 H 92 01/11/21 07:38 67 01/11/21 04:16 36.5 C 64 20 129/78 92 01/10/21 23:00 36.7 C 72 20 178/63 H 93 Laboratory Results Laboratory Tests 01/11/21 01/11/21 06:19 06:19 WBC 7.35 Hgb 9.9 L Hct 32.6 L Plt Count 206 Sodium 139 Potassium 4.0 Chloride 107 Carbon Dioxide 27 BUN 42 H Creatinine 3.51 H D Glucose 145 H PG Care Time/CCT Total # of Minutes Spent Total Time Spent with Patient: Total time spent is greater than 50% in coordination of care (as documented) at patient's floor/unit and/or counseling patient: Coding Level of Care Code 37566 Subseq Hosp Care Lvl 3 Diagnoses Acute kidney injury superimposed on chronic kidney disease N17.9; N18.9 CKD (chronic kidney disease) N18.9 Chronic kidney disease stage: unspecified stage Acute exacerbation of CHF (congestive heart failure) I50.9 Heart failure type: unspecified Anemia D64.9 Hypertension I10 (1) CKD (chronic kidney disease) Chronic kidney disease stage: unspecified stage Qualified Code(s): N18.9 - Chronic kidney disease, unspecified (2) Acute exacerbation of CHF (congestive heart failure) Heart failure type: unspecified Qualified Code(s): I50.9 - Heart failure, unspecified
[2021-01-11] MEDS: D5W AND 1/4NSS 1,000 ML IV SCH (11:02)
--- NOTE | 2021-01-11 20:04 | Billing Data ---
Date of Service January 11, 2021 Coding Level of Care Code 03943 Subseq Hosp Care Lvl 3
[2021-01-11] MEDS: INSULIN GLARGINE SOLOSTAR 100 UNITS/ML 3 ML PEN SQ SCH (20:33)
--- NOTE | 2021-01-12 06:40 | Hospitalist Progress Note ---
Date of Service January 12, 2021 Assessment & Plan (1) Acute exacerbation of CHF (congestive heart failure): Plan: 80yo female with a history of HFrEF, IDDM2, ESRD, multinodular goiter, BL pleural effusions, HLD, HTN, admitted for acute hypoxic respiratory failure s econdary to volume overload from acute HFpEF and worsening CKD. ESRD Cr 3.5-4.0, GFR ~10, approximately baseline; patient is approaching need for dialysis Creatinine increasing (4.1) following diuretic therapy -- stabilized at this level prior to discharge Has an AV fistula though not yet mature/ready for use 01/09: nephrology placed a tunneled catheter, patient underwent first HD treatment, tolerated well, 2L UF removed 01/10: underwent second HD treatment, removed 1.7L UF Plan to receive dialysis at [facility] when needed in the future HFrEF exacerbation: resolved BNP on admission 17,393; echo (10/30) shows EF 45-50%, moderate aortic stenosis, moderate MR, mild LVH Torsemide was previously increased to 40mg daily without much improvement Nephrology recommends continued diuresis Continue bumex 2mg bid Stop metolazone, torsemide Achieved adequate I&O balance with resolution of AHRF prior to discharge following aggressive diuresis Currently stable and satting well on room air Continue to monitor Bilateral pleural effusions Chronic, follows with Dr. Ceja Thoracentesis performed on 01/01 (right side) and 01/02 (left side) Thoracentesis fluid transudative per Light's criteria No intervention currently indicated Anticipate improvement with hemodialysis Acute hypoxic respiratory failure: resolved Secondary to CHF exacerbation Greatly improved with diuresis, now stable on room air Suspect nocturnal desaturations are secondary to underlying PREM, would benefit from outpatient sleep study Hypertension On amlodipine, metoprolol, isosorbide at home Renal doppler done here without evidence of KEO Continue hydralazine 75mg Anticipate improvement with hemodialysis Epigastric pain, nausea: resolved Started 01/04, suspected to be secondary to GERD Improved with famotidine, continue famotidine 20mg bid Bradycardia: resolved Intermittently bradycardic to 50s, asymptomatic Home metoprolol decreased from 150mg to 75mg CAD Continue isosorbide, aspirin, statin, metoprolol IDDM2 Home regimen held (basaglar 27 units sq PM) while here, utilized SSI 12/31: hypoglycemic to 63, likely 2/2 decreased PO intake overnight during initial admission Per pharmacy recommendation, lantus decreased to 10U Sacral pressure ulcer Wound care following Chronic anemia Hgb 9.8, baseline 10-11 Patient is s/p venofer infusion FEN: low sodium, heart healthy, fluid restriction to 1L Code status: no intubation, OK for CPR, defibrillation DVT ppx: SCDs Isolation: none Consults: nephrology, pulmonology PT/OT: following Dispo: med/surg, discharge pending PT/OT eval (2) Hypoxemia: (3) Urinary Incontinence: (4) Ambulatory dysfunction: (5) Type 2 diabetes mellitus with insulin therapy: (6) Multinodular goiter (nontoxic): (7) ESRD (end stage renal disease): (8) Bilateral pleural effusion: (9) Moderate calcific aortic stenosis: (10) Graves disease: (11) Respiratory acidosis: (12) Bradycardia: Admission and Anticipated Discharge Date Admission Date: December 31, 2020 Results & Data Results & Data ([facility]) Vital Signs (Past 12 Hours) Vital Signs Temp Pulse Pulse Resp BP Pulse Ox 01/12/21 02:47 36.7 C 61 18 135/63 93 01/11/21 22:34 36.6 C 65 18 130/62 94 01/11/21 22:21 64 01/11/21 19:54 36.6 C 63 18 143/69 H 96 (1) Acute exacerbation of CHF (congestive heart failure) Heart failure type: unspecified Qualified Code(s): I50.9 - Heart failure, unspecified
[2021-01-12] MEDS ORDERED: HEPARIN SOD (PORCINE) 1000 UNIT/ML IV ONE (07:00)
[2021-01-12] MEDS ORDERED: EPOETIN ALFA 10,000 UNITS/ML VIAL IV ONE (07:00)
[2021-01-12] MEDS ORDERED: SODIUM CHLORIDE 0.9% 1000ML 1,000 ML IV PRN (07:00)
[2021-01-12 07:52] LABS: Basophils # (auto) 0.02 K/uL (0-0.2); Basophils % (auto) 0.3 %; Eosinophils # (auto) 0.44 K/uL (0-0.5); Eosinophils % (auto) 5.7 %; Hematocrit (blood only) 32.7 % (37-47); Immature Granulocytes # (auto) 0.08 K/uL (0.00-0.02); Lymphocytes # (auto) 1.48 K/uL (1.2-3.4); Lymphocytes % (auto) 19.2 %; Mean Corpuscular Hemoglobin 27.1 pg (25-34); Mean Corpuscular Hgb Conc 30.6 g/dL (32-36); Mean Corpuscular Volume 88.6 fL (80-100); Mean Platelet Volume 9.2 fL (7.4-10.4); Monocytes # (auto) 1.14 K/uL (0.11-0.59); Monocytes % (auto) 14.8 %; Neutrophils # (auto) 4.55 K/uL (1.4-6.5); Platelet Count 207 K/uL (130-400); RDW Coefficient of Variation 16.8 % (11.5-14.5); RDW Standard Deviation 54.8 fL (36.4-46.3); Red Blood Count 3.69 M/uL (4.2-5.4); White Blood Count 7.71 K/uL (4.8-10.8)
[2021-01-12] MEDS: INSULIN ASPART 100 UNITS/ML 3 ML PEN SC SCH ×2 (08:13→13:50)
[2021-01-12] MEDS: ATORVASTATIN 40 MG TAB PO SCH (08:15)
[2021-01-12] MEDS: VENLAFAXINE HCL XR 37.5 MG CAPXR PO SCH (08:16)
[2021-01-12] MEDS: CEROVITE ADV FORMULA TAB PO SCH (08:16)
[2021-01-12] MEDS: ISOSORBIDE MONO EXTENDED REL 60 MG TABCR PO SCH (08:16)
[2021-01-12] MEDS: FAMOTIDINE 20 MG TAB PO SCH (08:16)
[2021-01-12] MEDS: VENLAFAXINE HCL XR 150 MG CAPXR PO SCH (08:17)
[2021-01-12 08:35] LABS: BUN Creatinine Ratio 12.5 (10-20); Calcium 9.4 mg/dl (8.5-10.1); Creatinine Clr Calc Pharmacy 11.2 ml/min; Est GFR (African American) 9.8 ml/min; Est GFR (Non-African American) 8.5 ml/min; Potassium 4.3 mmol/L (3.5-5.1)
[2021-01-12] MEDS: HEPARIN SOD (PORCINE) 1000 UNIT/ML IV SCH (09:44)
--- NOTE | 2021-01-12 10:51 | Nephrology Progress Note ---
Date of Service January 12, 2021 Assessment & Plan (1) Acute kidney injury superimposed on chronic kidney disease: Plan: * Admitted w/ CHF * Cr gustavo to 4.7 and patient had mild uremic symptoms. AVF is not yet mature for use * EGFR is 8 cc/min. 24 hour urine Clcr 4.6 cc/min * R IJ THC placed and 1st run HD completed 01/09/21 * Patient is scheduled for HD 11am MWF at [facility]. I have phoned in orders * HD today for continued UF and correction of azotemia (2) CKD (chronic kidney disease): Plan: * Baseline Cr has been ~ 3.5 w/ EGFR 10 cc/min. Renal impairment is on the basis of DKD, hypertensive nephrosclerosis * Urine sediment has been acellular * UPCR has been > 3.5. No prior h/o monoclonal gammopathy * 09/29 renal US: R 10.6, L 9.2 w/ 2.3 upper pole cyst. No stone * 12/30 renal artery doppler: no KEO * L RC AVF created 11/08/[address] Gregg. Patient to dialyze at [facility] when necessary (3) Acute exacerbation of CHF (congestive heart failure): Plan: * Now on HD. Challenging EDW * Continue Bumex since patient still makes urine (4) Anemia: Plan: * Patient has completed 1 g Venofer infusion. Hgb is trending up (5) Hypertension: Plan: * BP has improved following UF * No KEO on doppler this admission * Continue current antihypertensive regimen Admission and Anticipated Discharge Date Admission Date: December 31, 2020 Subjective Ms. Bolivar was evaluated in her hospital room this morning. Her breathing is improved. She is anxious to return home and wants to avoid SNF if possible Review of Systems Constitutional: no fever Eyes: no problem reported Ear, Nose, Mouth, Throat: no problem reported Respiratory: no cough and no dyspnea Cardiovascular: no chest pain Gastrointestinal: + nausea; no abdominal pain Genitourinary: no dysuria and no hematuria Musculoskeletal: no back pain Integumentary: no rash Neurologic: no dizziness Physical Exam Constitutional: not in distress Eyes: PERRL, conjunctivae normal, anicteric sclerae ENMT: external ear and nose normal, oropharynx normal Neck: trachea midline, no thyromegaly Respiratory: normal respiratory effort, lungs clear to auscultation Cardiovascular: Rate/Rhythm: regular rate and regular rhythm Extremities: + edema (trace LE swelling) Gastrointestinal (Abdomen): normal bowel sounds, soft, nontender, no hepatosplenomegaly Musculoskeletal: Extremities: no cyanosis Skin: no rashes, warm and dry Neurologic: awake; not confused Results & Data ([facility]) Vital Signs (Past 12 Hours) Vital Signs Temp Pulse Pulse Pulse Resp BP BP 01/12/21 10:40 63 153/65 H 01/12/21 09:40 61 121/62 01/12/21 09:20 61 122/55 L 01/12/21 09:00 60 100/55 L 01/12/21 08:44 64 167/60 H 01/12/21 08:30 36.6 C 63 01/12/21 08:08 115/62 01/12/21 07:58 64 01/12/21 07:56 36.6 C 68 20 01/12/21 02:47 36.7 C 61 18 135/63 Pulse Ox 01/12/21 10:40 01/12/21 09:40 01/12/21 09:20 01/12/21 09:00 01/12/21 08:44 01/12/21 08:30 01/12/21 08:08 01/12/21 07:58 01/12/21 07:56 94 01/12/21 02:47 93 Laboratory Results Laboratory Tests 01/12/21 01/12/21 07:15 07:15 WBC 7.71 Hgb 10.0 L Hct 32.7 L Plt Count 207 Sodium 138 Potassium 4.3 Chloride 106 Carbon Dioxide 24 BUN 58 H Creatinine 4.63 H* D Glucose 155 H Calcium 9.4 PG Care Time/CCT Total # of Minutes Spent Total Time Spent with Patient: Total time spent is greater than 50% in coordination of care (as documented) at patient's floor/unit and/or counseling patient: Coding Level of Care Code 36021 Subseq Hosp Care Lvl 3 Diagnoses Acute kidney injury superimposed on chronic kidney disease N17.9; N18.9 CKD (chronic kidney disease) N18.9 Chronic kidney disease stage: unspecified stage Acute exacerbation of CHF (congestive heart failure) I50.9 Heart failure type: unspecified Anemia D64.9 Hypertension I10 (1) CKD (chronic kidney disease) Chronic kidney disease stage: unspecified stage Qualified Code(s): N18.9 - Chronic kidney disease, unspecified (2) Acute exacerbation of CHF (congestive heart failure) Heart failure type: unspecified Qualified Code(s): I50.9 - Heart failure, unspecified
[2021-01-12] MEDS: BUMETANIDE 1 MG TAB PO SCH (12:55)
[2021-01-12] MEDS: amLODIPine BESYLATE 5 MG TAB PO SCH (12:55)
[2021-01-12] MEDS: hydrALAZINE HCL 25 MG TAB PO SCH ×2 (12:55→13:50)
[2021-01-12] MEDS: METOPROLOL SUCC 25MG EXT REL TAB PO SCH (12:56)
[2021-01-12] MEDS: D5W AND 1/4NSS 1,000 ML IV SCH (13:20)
[2021-01-12] MEDS: NEPHROCAPS PO SCH (13:50)
--- NOTE | 2021-01-12 14:16 | Discharge Summary ---
Date of Service January 12, 2021 Admission HPI Per Admitting Provider 80 yo F with pmh HFrEF, aortic stenosis, DM2, ESRD, multinodular goiter, graves disease, HTN, brought to ER by daughter for worsening SOB. Recently seen by community outreach worker Dr. Hamm on 12/27, at which time he increased her torsemide from 30 mg daily to 40 mg daily to help reduce peripheral edema and pleural effusions. Daughter states that Sonam sees Dr. Ceja for pulmonary care, and they have previously discussed doing thoracenteses to drain the effusions. She says the increase in torsemide did not improve her shortness of breath. She states she has a dry cough and isn't able to take a deep breath. No chest pain. She says she doens't have much of an appetite and has been that way for a while now. She eats a lot of tea and ritz crackers, and says she knows she's supposed to avoid salt but doesn't care to. Admission Exam Per Admitting Provider Constitutional: obese, in no apparent distress, sitting comfortably in bed. Eyes: EOMI, pupils equal and reactive bilaterally, no scleral icterus Cardiac: RRR, no murmurs, gallops or rubs. Normal S1, S2 Pulm: poor inspiratory effort, bibasilar crackles, breathing comfortably on 6L NC Abd: soft, nontender, distended, normal bowel sounds, no rebound or guarding Extremities: 2+ peripheral pulses, 3+ pitting edema to knees bilaterally Neuro: no focal deficits, moving all 4 limbs, A&Ox3 Principal Diagnosis Fluid overload secondary to ERSD Discharge Exam Constitutional: well-appearing, no acute distress CV: regular rhythm, no murmur appreciated, extremities well-perfused, no LE edema Resp: CTABL, no wheezes/rales/rhonchi appreciated, no increased work of breathing, fair air movement Skin: warm, dry, no rash appreciated Neuro: AOx4, no focal neurological deficits appreciated Discharge Data Allergies Allergy/AdvReac Type Severity Reaction Status Date / Time codeine AdvReac Unknown DOES NOT Verified 12/31/20 00:14 [address] THE WAY IT MAKES HER FEEL. Consultations 12/30/20 23:43 ED Decision to Admit Stat 12/31/20 02:13 Consult Cardiology Routine Consult Nephrology Routine Consult Pulmonology Routine 01/08/21 10:46 Consult Vascular Surgery Routine Procedures Performed Operation Date: 01/09/21 11:30 Actual Procedures p Insertion of Perm Catheter, Right Internal Jugular Approach, Ultrasound Localization of Right internal Jugular Vein, Fluoroscopy for Positioning, Moderate Sedation [id number](Right) - Faheem Gregg MD Ordered Studies 01/01/21 16:01 US point of care ultrasound Urgent US point of care ultrasound Urgent 01/02/21 15:38 US point of care ultrasound Urgent 01/05/21 10:24 US duplex renal artery Routine 01/09/21 07:31 EV cvc insrt tnnl with prt/burner hand Routine US EV guide vascular access Routine Hospital Course (1) Acute exacerbation of CHF (congestive heart failure): CHF exacerbation and BL pleural effusions secondary to ESRD On admission, patient was diuresed with some improvement in SOB and oxygen requirement. Nephrology was consulted given patient's ESRD and carefully managed patient's diuresis. Patient's chronic bilateral pleural effusions were found to have worsened, which continued to re-accumulate despite multiple thoracenteses. Initially during this hospitalization, an attempt was made to manage patient's fluid status with diuretics alone, but this was unsuccessful, and it became clear that dialysis would be required going forward. Patient's AV fistula, which had been placed on 11/08/20, was not yet mature enough for use, and so a tunneled catheter was placed. Patient underwent her first three HD treatments on 01/09, 01/10, and 01/12, which she tolerated well. Patient was discharged on hospital day 14 in stable condition. Patient was set up to receive dialysis at [facility], with an appointment set up for 01/15/21. Nephrology recommended continuation of bumex (as patient was not anuric) and discontinuation of torsemide. Follow-up with nephrology was arranged for 01/17/21, and pulmonary follow-up arranged for 04/24/21. Hypertension, bradycardia Patient's BP was difficult to control early during hospitalization, suspected to be secondary to fluid overload and ESRD. Patient's BP typically ranged from 170-200/90-110. Unfortunately, due to intermittent bradycardia to the 50s, patient's metoprolol had to be decreased from 150mg to 75mg daily. Patient's BP greatly improved with dialysis, and was 140/60s on day of discharge. CAD Patient's home regimen was continued during this hospitalization. DM2 Patient's home DM2 regimen was held on admission. BSG was controlled with sliding-scale insulin. Patient had an episode of hypoglycemia to 63 on hospital day two, likely secondary to decreased PO intake prior to admission. Patient's home regimen was restarted upon discharge. Chronic anemia Patient's Hgb was 9.8 on admission, below her baseline of 10-11. Patient received an infusion of venofer, and Hgb remained stable for the remainder of her hospitalization. Total Time Total Time Spent Total Time Spent (In Minutes): <30 Discharge Plan Discharge Items Patient Disposition: Home - Self-Care Reason For Visit: CHF EXACERBATION Discharge Diagnosis: volume overload (excess fluid) heart failure exacerbation chronic kidney disease Condition on Discharge: Fair Activity: Per Instructions section Non-emergency contact: Primary Care Provider, Medical Esthetician and Vice President Tax Call non-emergency contact if: you have any medication questions, your symptoms worsen and your temperature is above 101 Follow-up/Referrals: Sanjay Spangler MD [Physician] - 02/06/21 2:30 pm (Ultrasound) David Lopez III, CRNP [Primary Care Provider] - 01/18/21 9:20 am Faheem Gregg MD [Physician] - 02/13/21 1:00 pm (FOLLOW UP) Diet: Dialysis Renal and Low Potassium (2gm) Fluids: 1500ml (6 cups) Addtl Attending Provider Instructions: You were seen in [facility] for evaluation of shortness of breath. During her stay here, you underwent several tests to determine the cause of this shortness of breath. Based on her different studies, your sympt oms were thought to be due to excess fluid within the lungs, which was likely caused by a combination of decreased heart function as well as your chronic kidney disease. You underwent multiple evaluations and medication changes to help treat your symptoms, including with diuretics (fluid pills) and manual removal of the fluid surrounding your lungs (thoracentesis). Thankfully, you demonstrated excellent response to these therapies. By the time of discharge, you were stable on just a few medications. Upon your discharge, please continue taking Bumex 2mg twice daily. Please also continue taking hydralazine 75mg, 3 times daily. Please continue taking your other blood pressure medications as previously prescribed. Do not take torsemide unless directed by your primary care doctor or specialists. Please note that your long-acting insulin was changed to 10U/night following an episode of low blood sugar here in the hospital -- please discuss this with your PCP on discharge. It will be very important to follow-up with your kidney doctor and heart doctor following discharge. We also highly suggest that you undergo a sleep study to help evaluate for sleep apnea, which may be contributing to your symptoms. Here are your upcoming appointments: Dialysis at [facility] on Friday, 01/15 at 10:30am Appointment with ELLIOTT Rivero on 01/18 at 9:20am Appointment with Dr. Spangler (nephrology) on 02/06 at 2:30pm Appointment with Dr. Gregg (vascular surgery) on 02/13 at 1pm In the interim, if you experience any worsening shortness of breath, lightheadedness or dizziness, chest pain, palpitations, increased swelling in your legs, fevers, chills, night sweats, or other worrisome symptoms, please seek medical attention. If your symptoms are severe, please report to the ER immediately for evaluation. Is a pleasure for caring for you while you are here, and we wish you all the best in your recovery. ---- Call 911 and go to the Emergency Room if: * You have tightness or pain in your chest that does not go away with rest or Nitroglycerin * You are very short of breath even with rest Call your doctor if any of the following symptoms or problems start or get worse: * Shortness of breath or difficulty breathing * Wake up at night short of breath * Chest pain * Cough * Swelling of your hands, fee, or legs * More fatigued or tired with your normal activity * Palpitations - sudden fast heart beats WEIGHT * Weigh yourself every morning after using the bathroom. * Use the same scale. * Wear the same amount of clothing. * Write your weight down on your chart. * Call your doctor if you gain more than 2-3 pounds in 1-2 days. MEDICATIONS * Use this discharge instruction sheet for instructions. * Take your medications at the time your doctor ordered. * Do not skip a dose of your medicines. * If you miss a dose of medicine, take as soon as possible, but DO NOT DOUBLE A DOSE. * Read your medicine information when you get home. * Know all of the side effects of your medicine. * Call your doctor's office if you have any side effects. * Be sure all of your doctors know what medicine and herbs you take (including cold, flu, and herbal medicine). * Pain Medicine: If you do not get relief from your pain, please call your doctor for help. Take the following with you to your follow-up doctor appointments: * Weight Chart * Medication List * List of questions Do not drink excessive alcohol, beer or wine. Pending Studies at Discharge: No Stand-Alone Forms: My [facility] Medications and DC Order Prescriptions: New metoprolol succinate 25 mg Tablet Extended Release 24 Hr 75 mg PO QAM 30 Days Qty: 90 RF: 0 hydralazine 25 mg Tablet 75 mg PO TID 30 Days Qty: 270 RF: 0 bumetanide 1 mg Tablet 2 mg PO BID17 30 Days Qty: 60 RF: 0 Continued Centrum Silver 400-250 mcg tablet,chewable 1 tab PO QAM RF: 0 polyethylene glycol 3350 17 gram/dose powder 17 gm PO DAILY PRN (Reason: Constipation) RF: 0 PreserVision AREDS [id number] bhiy-ou-gyno capsule 1 cap PO BID RF: 0 venlafaxine 150 mg capsule,extended release 24hr 150 mg PO QAM RF: 0 ascorbic acid (vitamin C) 500 mg tablet 500 mg PO QAM RF: 0 (DME) OneTouch Ultra Blue Test Strip Strip See Rx Instructions .ROUTE .MEDSUPPLY Qty: 100 RF: 3 (DME) pen needle, diabetic [BD Ultra-Fine [place] Pen Needle] 32 gauge x 5/32" ne edle See Rx Instructions .ROUTE .MEDSUPPLY Qty: 400 RF: 3 atorvastatin 80 mg tablet 80 mg PO QAM Qty: 90 RF: 3 isosorbide mononitrate 120 mg tablet extended release 24 hr 120 mg PO QAM Qty: 90 RF: 3 amlodipine 5 mg tablet 5 mg PO BID Qty: 180 RF: 3 insulin aspart U-100 [Novolog Flexpen U-100 Insulin] 100 unit/mL (3 mL) insulin pen 30 unit subcut DAILY 90 Days Qty: 30 RF: 1 (DME) Incentive Spirometer Misc See Rx Instructions .MEDSUPPLY Qty: 1 RF: 0 cholecalciferol (vitamin D3) 25 mcg (1,000 unit) capsule 50 mcg PO BID RF: 0 Calcium 600 with Vitamin D3 600 mg(1,500mg) -400 unit Tablet,Chewable 2 tab PO QAM RF: 0 venlafaxine 37.5 mg tablet extended release 24hr 37.5 mg PO QAM RF: 0 Changed Basaglar KwikPen U-100 Insulin 100 unit/mL (3 mL) insulin pen 10 unit subcut QPM Qty: 0 RF: 0 Discontinued aspirin 325 mg tablet 650 mg PO DAILY PRN (Reason: Pain) RF: 0 metoprolol succinate 100 mg tablet extended release 24 hr 150 mg PO QAM Qty: 90 RF: 3 torsemide 20 mg tablet 40 mg PO DAILY Qty: 90 RF: 3 Discharge Orders: Discharge Order (Routine); Ordered 01/12/21 Ordered By: Harvey Sharpe/Other Patient Handouts: A1C, Managing Type 2 Diabetes, Coping with Kidney Failure, Coping with Heart Failure, CKD Dc, Eating Heart-Healthy Foods Admission Data Admit Date/Time: 12/31/20 00:15 Attending Provider: Rick Tejeda Admit Provider: Fe Dwyer Primary Care Provider: David Lopez III Other Providers: Rick Tejeda ; Yosi Randall ; [facility] ; Johanny Haskins ; [place] ; Nimesh Demarco ; David Watkins ; Atul Schneider ; Hernandez Boogie ; Faheem Gregg Other Interventions: Discharge Summary Assessment (RN) Last Done: 01/12/21 15:04 Supervising Physician Co-Signing Physician Notes I personally examined the patient and verified all tinajero points of history and exam, discussed case, and agree with decision making with Dr Clancy Feeling okay. Very much wants to go home. Was even upset about having to stay for dialysis today. Fortunately outpatient dialysis now set up. Updated daughter. Vitals noted, in general she is awake and alert pleasant no distress. HEENT normocephalic atraumatic mucous membranes moist. Breathing unlabored no accessory muscle use good effort. Skin shows no rashes no pallor or icterus. Neuro without focal deficits. HFpEF/ESRDappears predominantly to be failing med managementstarted dialysis, feeling much better. Otherwise as per nephrology. Patient was adamant about going home today. Did not really want to stay yesterday and today, but after we discussed that dialysis had not yet been finalized as an outpatient, and that she would need dialysis today, she was willing to stay just for that but nothing longer. Stable for home. WeaknessPT/OT input noted, discussed with patient, she is weak enough that she would benefit from SNF, but is of sound mind/has capacity and really does not want to go her daughter does not want her to go to SNF either. On 01/11 we walked together, and while she is weak and somewhat unsteady, she does seem to show reasonably good safety awareness, and we discussed how important this would be if she goes home once SNF would be more indicated. Given her capacity to make her own decisions, certainly we cannot have her go somewhere against her will, but given her family support, and her reviewing her situation rationally, it seems cautiously reasonable for her to go home. Outpatient PT to continue. Otherwise as above. Resident Activity Tracking Resident Involvement: Resident Care Provided Care Provided: Adult Hospital Medicine
--- NOTE | 2021-01-12 17:41 | Billing Data ---
Date of Service January 12, 2021 Coding Level of Care Code D/C DAY MANAGEMENT <30 MINS
--- NOTE | 2021-01-23 11:00 | Coding Query ---
CONGESTIVE HEART FAILURE To Promote full compliance with coding requirements relating to patient care, physician participation is requested in all cases of home health caregiver uncertainty. Please assist us with the following questions. A diagnosis of Congestive Heart Failure Exacerbation is documented in the patient's medical record from H&P through Discharge Summary, however, there is documentation of HFrEF, HFpEF, Acute Diastolic and Systolic CHF, Acute Systolic CHF, and Acute Diastolic CHF. It is not clear the type of CHF. To accurately code this diagnosis and to compare patient severity, we ask that you specify the type of heart failure by placing an X within the parenthesis (x). SYSTOLIC HEART FAILURE ( ) Acute ( ) Chronic ( ) Acute on Chronic ( ) Rheumatic ( ) Unknown DIASTOLIC HEART FAILURE ( ) Acute ( ) Chronic ( ) Acute on Chronic ( ) Rheumatic ( ) Unknown COMBINED SYSTOLIC AND DIASTOLIC HEART FAILURE ( ) Acute ( ) Chronic ( ) Acute on Chronic ( ) Rheumatic ( ) Unknown acute HFpEF related to ESRD Thank you Saadia ANDERSON
--- NOTE | 2021-01-23 11:01 | Coding Query ---
PRESSURE ULCER DOCUMENTATION To promote full compliance with coding requirements relating to patient care, physician participation is requested in all cases of nutrition and dietetics instructor uncertainty. Please assist us with the question(s) below: Please specify the known or suspected type by placing an "X" within the parenthesis (x). A Sacral Pressure Ulcer is documented beginning on Progress Note 01/02/21: If possible, please check the box that provides the specific stage of the pressure ulcer ( ) Stage I ( ) Stage II ( ) Stage III ( ) Stage IV ( ) Unstageable ( x) Unable to determine - no decubitus ulcer. it is moisture associated dermatitis Was the pressure ulcer present on admission? Please check the appropriate box for the pressure ulcer: ( ) Present on admission ( ) Not present on admission ( ) Unable to be clinically determined Thank you Saadia ANDERSON
== END 2021-01-12 15:56 | disposition home or self-care (01) | DRG 291 ==
LOC: ED 22:48 → SUATTDRO 12-31 00:15 → 2W 12-31 00:15

== ENCOUNTER 2021-02-15 15:19 | Inpatient (IN) ==
--- NOTE | 2021-02-15 16:12 | Emergency Department Note ---
History of Present Illness General Chief complaint: Fall Stated complaint: FALL Time Seen by Provider: 02/15/21 15:56 Source: patient Mode of arrival: EMS Limitations: no limitations History of Present Illness Provider complaint: Fall, left hip pain Onset (ago): hour(s) Location: hip Pain Consistency: + constant Maximum Pain Intensity: 5 Exacerbated By: + movement Associated symptoms: + denies other symptoms Treatments prior to arrival: none This is a 80-year-old female brought in by EMS from home after an accidental fall with subsequent injury to her left hip. Patient states she was standing in her kitchen, bent down to pick something up and when she stood back up she became off balance and fell backwards towards her refrigerator. She states she landed on her butt and left hip, and hit her head on the refrigerator. She denies LOC, headache, or neck pain. Patient states she does not use any blood thinners. Patient states she was unable to move the left leg or hip without significant pain and contacted 911. Patient states she has chronic bilateral lower extremity neuropathy, however does not notice any change in her neuropathy symptoms since the fall. She denies upper extremity injury, chest pain, abdominal pain, trouble breathing, or nausea. Patient was not given anything prehospital for pain. Patient states she has previously seen Dr. Pearson for orthopedic care. Pt seen during a time of high acuity and national emergency pandemic while wearing PPE. Home Medications Medication Instructions Recorded Confirmed Type ascorbic acid (vitamin C) 500 mg 500 mg PO QAM tab 12/10/18 02/15/21 History tablet multivit with min-folic 1 tab PO QAM 12/10/18 02/15/21 History acid-lutein 400 mcg-250 mcg chewable tablet (Centrum Silver) polyethylene glycol 3350 17 17 gm PO DAILY PRN gm 12/10/18 02/15/21 History gram/dose oral powder venlafaxine 150 mg 150 mg PO QAM cap 12/10/18 02/15/21 History capsule,extended release 24 hr vitamins A,C,H-tihp-qcqdjq 14,320 1 cap PO BID cap 12/10/18 02/15/21 History unit-226 mg-200 unit capsule (PreserVision AREDS) calcium carbonate-vitamin D3 600 2 tab PO QAM 03/09/20 02/15/21 History mg(1,500 mg)-400 unit chewable tablet (Calcium 600 with Vitamin D3) atorvastatin 80 mg tablet 80 mg PO QAM #90 tab 10/24/20 02/15/21 Rx isosorbide mononitrate 120 mg 120 mg PO QAM #90 tab 10/25/20 02/15/21 Rx tablet,extended release 24 hr amlodipine 5 mg tablet 5 mg PO BID #180 tab 11/23/20 02/15/21 Rx Novolog Flexpen U-100 Insulin 100 30 unit SUBCUT DAILY 90 Days #30 12/04/20 02/15/21 Rx unit/mL (3 mL) subcutaneous ml NS (insulin aspart U-100) cholecalciferol (vitamin D3) 25 50 mcg PO BID cap 12/27/20 02/15/21 History mcg (1,000 unit) capsule venlafaxine 37.5 mg 37.5 mg PO QAM 12/31/20 02/15/21 History tablet,extended release 24 hr insulin glargine 100 unit/mL (3 10 unit SUBCUT QPM #0 ml 01/07/21 02/15/21 Rx mL) subcutaneous pen (Basaglar KwikPen U-100 Insulin) Allergies Allergy/AdvReac Type Severity Reaction Status Date / Time codeine AdvReac Unknown DOES NOT Verified 02/15/21 17:10 LIKE THE WAY IT MAKES HER FEEL. Past Med/Surg History Medical History Acute exacerbation of CHF (congestive heart failure) Acute kidney injury superimposed on chronic kidney disease Anemia Chronic, hgb's in the 10-11 range per chart view, remote hx blood transfusions Carotid artery disease Less than 50% ICA stenosis per 08/2016 carotid duplex 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 Chronic gastroesophageal reflux disease Chronic kidney disease Worsening creatinine now in the 3's under surveillance by nephrology ([facility]), plan for AVF/future dialysis Depression Diabetes IDDM Diabetic peripheral neuropathy associated with type 2 diabetes mellitus Dyslipidemia Gallstones Generalized osteoarthritis of multiple sites Graves disease Per records, TSH WNL 02/2020 labs H/O malignant neoplasm of uterine body Hiatal hernia Hypertension Hypoxemia Irregular heart beat metoprolol for this per pt Kidney stones Macular degeneration Moderate calcific aortic stenosis Moderate (ANUJ 1.0cm2, MG 20.8mmhg) per 10/2020 echo Multinodular goiter (nontoxic) Multiple thyroid nodules Obesity Osteopenia Secondary hyperparathyroidism Sleep apnea No device Subclinical hyperthyroidism Type 2 diabetes mellitus with insulin therapy Surgical History Fistula H/O abdominoplasty H/O basal cell carcinoma excision H/O shoulder surgery Right History of appendectomy History of cataract surgery R/L History of colonoscopy History of esophagogastroduodenoscopy (EGD) History of tonsillectomy History of tooth extraction S/P complete hysterectomy Family History Father Lung cancer Diabetes Mother , in a home fire Hypertension Denies family history of Ovarian cancer Prostate cancer Myocardial infarction Breast cancer Colorectal cancer Social History Smoking Status: Never smoker Second Hand Exposure: No; Hx Alcohol Use: No Hx Substance Use: No Preferred Language: Latvian Communication Ability: Effective Visual Impairment: No Limitations Hearing Ability: Normal 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: No Beliefs That Will Affect Care: None marital status: / Current Living Situation: Family current occupational status: retired Feels Safe at Home: Yes Safety Concerns Comment: unsteady at times Childhood Exposure to Second-Hand Smoke: Yes Dental Care, Regularly: No Physical Activity Frequency: Does not Exercise Seatbelt Use: always Sunscreen Use: No Assistive Devices: Walker Review of Systems A total of 10 systems reviewed and were otherwise negative All systems reviewed & are unremarkable except as noted in HPI & below Physical Exam Vital Signs Vital Signs - 24 hr 02/15/21 15:23 02/15/21 15:30 02/15/21 16:00 Temperature 36.5 C Temperature Source Oral Pulse Rate 59 L 57 L 57 L Pulse Rate [Apical] Pulse Rate from SpO2 Sensor 59 L Pulse Rhythm Regular Pulse Strength Normal Respiratory Rate 17 15 18 Respiratory Effort / Characteristics Non-Labored Respiratory Depth Normal Respiratory Pattern Regular Blood Pressure 202/66 H Blood Pressure [Left Arm] Blood Pressure Mean 111 Blood Pressure Mean [Left Arm] Blood Pressure Position Lying Pulse Oximetry 99 94 94 Oxygen Delivery Method Room Air Sepsis Recent Fever Within 48 Hours No Sepsis New/Unexplained Change in Mental Status N/A Sepsis Action Taken by Nursing No Action Required 02/15/21 16:30 02/15/21 17:00 02/15/21 17:30 Temperature Temperature Source Pulse Rate 59 L 54 L 57 L Pulse Rate [Apical] Pulse Rate from SpO2 Sensor 55 L Pulse Rhythm Pulse Strength Respiratory Rate 21 14 16 Respiratory Effort / Characteristics Respiratory Depth Respiratory Pattern Blood Pressure 177/73 H 176/70 H Blood Pressure [Left Arm] Blood Pressure Mean 107 105 Blood Pressure Mean [Left Arm] Blood Pressure Position Pulse Oximetry 93 93 92 Oxygen Delivery Method Sepsis Recent Fever Within 48 Hours Sepsis New/Unexplained Change in Mental Status Sepsis Action Taken by Nursing 02/15/21 17:47 02/15/21 18:00 02/15/21 18:30 Temperature Temperature Source Pulse Rate 58 L 60 Pulse Rate [Apical] 58 L Pulse Rate from SpO2 Sensor 58 L 59 L Pulse Rhythm Pulse Strength Respiratory Rate 18 19 15 Respiratory Effort / Characteristics Respiratory Depth Respiratory Pattern Blood Pressure 159/103 H Blood Pressure [Left Arm] 186/65 H Blood Pressure Mean 121 Blood Pressure Mean [Left Arm] 105 Blood Pressure Position Pulse Oximetry 94 92 92 Oxygen Delivery Method Room Air Sepsis Recent Fever Within 48 Hours Sepsis New/Unexplained Change in Mental Status Sepsis Action Taken by Nursing GENERAL: alert, well appearing, well nourished, no distress, non-toxic EYE EXAM: normal conjunctiva, PERRL and EOM's grossly intact OROPHARYNX: no exudate, no erythema, lips, buccal mucosa, and tongue normal and mucous membranes are moist NECK: supple, no nuchal rigidity, no adenopathy, non-tender LUNGS: Clear to auscultation. Normal chest wall mechanics, no w/r/r HEART: no murmurs, S1 normal and S2 normal ABDOMEN: abdomen soft, non-tender, normo-active bowel sounds, no masses, no rebound or guarding. BACK: Back is symmetrical on inspection and there is no deformity, no midline tenderness, no CVA tenderness. SKIN: no rashes and no bruising UPPER EXTREMITIES: upper extremities are grossly normal. FROM, nml pulses b/l. LOWER EXTREMITIES: Left lower extremity shortened and externally rotated. No reproducible pain with palpation over the left lateral hip. Pelvis otherwise stable to compression. Right hip nontender with full range of motion. No evidence of deformity to the left lower extremity, normal distal pulses bilaterally, sensation normal and symmetric bilaterally per patient report. Compartments soft. No evidence of ecchymosis. FROM RLE. NEURO EXAM: Normal sensorium, cranial nerves II-XII grossly intact, normal speech, no gross weakness of arms, no gross weakness of legs. No pronator drift. Finger to nose intact. Gross sensation intact. Course Administered Medications Sodium Chloride (Nss 1000ml) 1,000 mls @ 150 mls/hr IV .[id number] CASA Stop: 02/15/21 22:54 Last Admin: 02/15/21 16:34 Dose: 150 mls/hr Documented by: [id number] Morphine Sulfate (Morphine Sulfate 4 Mg/Ml 1 Ml Carp\Vial) 4 mg IV Q1H PRN PRN Reason: Severe Pain (Rating 7,8,9,10) Stop: 03/01/21 16:05 Last Admin: 02/15/21 16:32 Dose: 4 mg Documented by: [id number] Medical Decision Making Differential Diagnosis Fracture, subluxation, dislocation, contusion, ligamentous injury, neurovascular, compartment syndrome, rhabdomyolysis, as well as other pathologies. Medical Records Attestation: I reviewed the patient's medical records. Home Medications Current Medication List: was personally reviewed by me Laboratory Data Attestation: I reviewed the patient's lab results. Result diagrams: 02/15/21 15:30 02/15/21 15:30 Lab Results 02/15/21 02/15/21 02/15/21 Range/Units 15:30 15:30 17:51 WBC 6.75 (4.8-10.8) K/uL RBC 3.75 L (4.2-5.4) M/uL Hgb 10.3 L (12.0-16.0) g/dL Hct 33.7 L (37-47) % MCV 89.9 (80-100) fL MCH 27.5 (25-34) pg MCHC 30.6 L (32-36) g/dL RDW Std Deviation 54.3 H (36.4-46.3) fL RDW Coeff of Chris 16.5 H (11.5-14.5) % Plt Count 205 (130-400) K/uL MPV 9.7 (7.4-10.4) fL Immature Gran % (Auto) 0.4 % Neut % (Auto) 54.0 % Lymph % (Auto) 24.1 % Glynn % (Auto) 12.1 % Eos % (Auto) 9.0 % Baso % (Auto) 0.4 % Neut # (Auto) 3.63 (1.4-6.5) K/uL Lymph # (Auto) 1.63 (1.2-3.4) K/uL Glynn # (Auto) 0.82 H (0.11-0.59) K/uL Eos # (Auto) 0.61 H (0-0.5) K/uL Baso # (Auto) 0.03 (0-0.2) K/uL Immature Gran # (Auto) 0.03 H (0.00-0.02) K/uL PT 10.0 (9.0-12.0) Seconds INR 1.0 (0.9-1.1) APTT 25.3 (21.0-31.0) Seconds PTT Ratio 1.0 Sodium 135 L (136-145) mmol/L Potassium 5.4 H (3.5-5.1) mmol/L Chloride 101 (98-107) mmol/L Carbon Dioxide 29 (21-32) mmol/L Anion Gap 5.0 (3-11) BUN 26 H (7-18) mg/dl Creatinine 3.52 H (0.6-1.2) mg/dl Est Cr Clr Drug Dosing 14.8 ml/min Est GFR ( Amer) 13.6 ml/min Est GFR (Non-Af Amer) 11.8 ml/min BUN/Creatinine Ratio 7.5 L (10-20) Glucose 140 H (70-99) mg/dl Calcium 9.9 (8.5-10.1) mg/dl Total Bilirubin 0.3 (0.2-1) mg/dl AST 27 (15-37) U/L ALT 21 (12-78) U/L Alkaline Phosphatase 106 (45-117) U/L Total Protein 7.3 (6.4-8.2) gm/dl Albumin 2.8 L (3.4-5.0) gm/dl Globulin 4.5 H (2.5-4.0) gm/dl Albumin/Globulin Ratio 0.6 L (0.9-2) COVID-19 Eval Order SARS-CoV-2 (PCR) (Negative) 02/15/21 02/15/21 Range/Units 18:16 18:16 WBC (4.8-10.8) K/uL RBC (4.2-5.4) M/uL Hgb (12.0-16.0) g/dL Hct (37-47) % MCV (80-100) fL MCH (25-34) pg MCHC (32-36) g/dL RDW Std Deviation (36.4-46.3) fL RDW Coeff of Chris (11.5-14.5) % Plt Count (130-400) K/uL MPV (7.4-10.4) fL Immature Gran % (Auto) % Neut % (Auto) % Lymph % (Auto) % Glynn % (Auto) % Eos % (Auto) % Baso % (Auto) % Neut # (Auto) (1.4-6.5) K/uL Lymph # (Auto) (1.2-3.4) K/uL Glynn # (Auto) (0.11-0.59) K/uL Eos # (Auto) (0-0.5) K/uL Baso # (Auto) (0-0.2) K/uL Immature Gran # (Auto) (0.00-0.02) K/uL PT (9.0-12.0) Seconds INR (0.9-1.1) APTT (21.0-31.0) Seconds PTT Ratio Sodium (136-145) mmol/L Potassium (3.5-5.1) mmol/L Chloride (98-107) mmol/L Carbon Dioxide (21-32) mmol/L Anion Gap (3-11) BUN (7-18) mg/dl Creatinine (0.6-1.2) mg/dl Est Cr Clr Drug Dosing ml/min Est GFR ( Amer) ml/min Est GFR (Non-Af Amer) ml/min BUN/Creatinine Ratio (10-20) Glucose (70-99) mg/dl Calcium (8.5-10.1) mg/dl Total Bilirubin (0.2-1) mg/dl AST (15-37) U/L ALT (12-78) U/L Alkaline Phosphatase (45-117) U/L Total Protein (6.4-8.2) gm/dl Albumin (3.4-5.0) gm/dl Globulin (2.5-4.0) gm/dl Albumin/Globulin Ratio (0.9-2) COVID-19 Eval Order Covid19 at [facility] SARS-CoV-2 (PCR) NEGATIVE (Negative) Imaging Data Radiologist's Impression: Chest X-Ray 02/15/21 16:06 XR chest 1V portable HISTORY: 80 years-old Female trauma acute chest trauma COMPARISON: Chest radiograph 01/07/2021 TECHNIQUE: Supine AP view of the chest FINDINGS: Cardiac silhouette is enlarged. Right IJ dual-lumen hemodialysis catheter distal tip terminates in the expected location of the mid SVC. Cardiomegaly with pulmonary vascular congestion and reticular interstitial opacities. No pneumothorax. Trace left and small right pleural effusions with right greater than left bilateral airspace opacities. Calcified plaque of the thoracic aorta. Degenerative changes of the shoulders and spine. IMPRESSION: 1. Cardiomegaly with pulmonary edema. 2. Trace left and small right pleural effusions. 3. Right greater than left bibasilar opacities suggest atelectasis. Pneumonitis could appear similarly. ACT 112: Negative or not required by law. The above report was generated using voice recognition software. It may contain grammatical, syntax or spelling errors. Electronically signed by: All Osullivan M.D. 02/15/2021 5:18 PM Hip/Pelvis X-Ray 02/15/21 16:06 XR hip LT 2V w pelvis HISTORY: 80 years-old Female trauma acute posttraumatic pelvic and left hip pain COMPARISON: None TECHNIQUE: AP view the pelvis with 2 views of the left hip FINDINGS: Moderate osteoarthritis of the hips. Demineralized appearance of the. No acute pelvic ring fracture identified. Moderate degeneration of the SI joints. There is an acute mildly comminuted intertrochanteric fracture of the left femur with fracture separation measuring up to approximately 9 mm. There is 9 mm volar displacement with 18 degrees of apex volar angulation. The lesser trochanteric fracture fragment is displaced superiorly a few centimeters. Soft tissue swelling lateral to the left hip. No dislocation. IMPRESSION: Acute mildly comminuted and displaced intertrochanteric fracture of the left femur. ACT 112: Negative or not required by law. The above report was generated using voice recognition software. It may contain grammatical, syntax or spelling errors. Electronically signed by: All Osullivan M.D. 02/15/2021 5:22 PM ECG Data Attestation: I personally reviewed and interpreted this ECG as follows: Indication: + other Rate (beats per minute): 60 Rhythm: + normal sinus ECG Intervals/blocks: + Normal QRS and + Normal QT ECG [place]: + Normal ECG ST segments: + Normal ST segments MDM Narrative This 80-year-old female presents following a fall with accompanying left hip pain. Patient's left lower extremity shortened and externally rotated. Patient is not anticoagulated. Patient did have pain with any attempt at movement. I do not suspect any additional occult traumatic injury. Patient found to have an intertrochanteric left hip fracture. Patient made aware of all results. Case discussed with hospitalist for additional evaluation and management. Patient will need dialysis tomorrow as she typically has dialysis Friday/Friday/Friday. Patient afebrile and otherwise hemodynamically stable. Patient with no prodromal symptoms, I do not suspect syncopal event. I do not suspect occult head injury. An order was placed for continuous cardiac monitoring. The monitor shows a rate of _62_ with __normal sinus__ rhythm. Impression & Plan Closed intertrochanteric fracture of left femur, CKD (chronic kidney disease), Fall, Hypertension, Anemia Discharge Plan Visit Data Chief Complaint: Fall Stated Complaint: FALL ED Provider: Payton Farnce Discharge Problem: Closed intertrochanteric fracture of left femur, CKD (chronic kidney disease), Fall, Hypertension, Anemia Forms Stand Alone Forms: My [facility] [place] [facility] Prescriptions Prescriptions: No Action Centrum Silver 400-250 mcg tablet,chewable 1 tab PO QAM RF: 0 polyethylene glycol 3350 17 gram/dose powder 17 gm PO DAILY PRN (Reason: Constipation) RF: 0 PreserVision AREDS 14,320-226-200 [id number] capsule 1 cap PO BID RF: 0 venlafaxine 150 mg capsule,extended release 24hr 150 mg PO QAM RF: 0 ascorbic acid (vitamin C) 500 mg tablet 500 mg PO QAM RF: 0 atorvastatin 80 mg tablet 80 mg PO QAM Qty: 90 RF: 3 isosorbide mononitrate 120 mg tablet extended release 24 hr 120 mg PO QAM Qty: 90 RF: 3 amlodipine 5 mg tablet 5 mg PO BID Qty: 180 RF: 3 insulin aspart U-100 [Novolog Flexpen U-100 Insulin] 100 unit/mL (3 mL) insulin pen 30 unit subcut DAILY 90 Days Qty: 30 RF: 1 cholecalciferol (vitamin D3) 25 mcg (1,000 unit) capsule 50 mcg PO BID RF: 0 Calcium 600 with Vitamin D3 600 mg(1,500mg) -400 unit Tablet,Chewable 2 tab PO QAM RF: 0 venlafaxine 37.5 mg tablet extended release 24hr 37.5 mg PO QAM RF: 0 Basaglar KwikPen U-100 Insulin 100 unit/mL (3 mL) insulin pen 10 unit subcut QPM Qty: 0 RF: 0 Referrals Referrals: David Lopez III, CRNP [Primary Care Provider] - Discharge Problem: Closed intertrochanteric fracture of left femur Qualifiers: Encounter type: initial encounter Fracture alignment: displaced Qualified Code(s): S72.142A - Displaced intertrochanteric fracture of left femur, initial encounter for closed fracture CKD (chronic kidney disease) Qualifiers: Chronic kidney disease stage: on chronic dialysis Qualified Code(s): N18.6 - End stage renal disease Fall Qualifiers: Encounter type: initial encounter Qualified Code(s): W19.XXXA - Unspecified fall, initial encounter Hypertension Qualifiers: Hypertension type: unspecified Qualified Code(s): I10 - Essential (primary) hypertension Anemia Qualifiers: Anemia type: due to chronic kidney disease Chronic kidney disease stage: on chronic dialysis Qualified Code(s): N18.6 - End stage renal disease
[2021-02-15 16:15] LABS: Basophils # (auto) 0.03 K/uL (0-0.2); Basophils % (auto) 0.4 %; Eosinophils # (auto) 0.61 K/uL (0-0.5); Hematocrit (blood only) 33.7 % (37-47); Hemoglobin 10.3 g/dL (12.0-16.0); Immature Granulocytes # (auto) 0.03 K/uL (0.00-0.02); Immature Granulocytes % (auto) 0.4 %; Lymphocytes # (auto) 1.63 K/uL (1.2-3.4); Lymphocytes % (auto) 24.1 %; Mean Corpuscular Hemoglobin 27.5 pg (25-34); Mean Corpuscular Hgb Conc 30.6 g/dL (32-36); Mean Corpuscular Volume 89.9 fL (80-100); Mean Platelet Volume 9.7 fL (7.4-10.4); Monocytes # (auto) 0.82 K/uL (0.11-0.59); Monocytes % (auto) 12.1 %; Neutrophils # (auto) 3.63 K/uL (1.4-6.5); Platelet Count 205 K/uL (130-400); RDW Coefficient of Variation 16.5 % (11.5-14.5); RDW Standard Deviation 54.3 fL (36.4-46.3); Red Blood Count 3.75 M/uL (4.2-5.4); White Blood Count 6.75 K/uL (4.8-10.8)
[2021-02-15] MEDS ORDERED: SODIUM CHLORIDE 0.9% 1000ML 1,000 ML IV SCH (16:15)
[2021-02-15 16:23] LABS: Albumin Level 2.8 gm/dl (3.4-5.0); BUN Creatinine Ratio 7.5 (10-20); Calcium 9.9 mg/dl (8.5-10.1); Creatinine Clr Calc Pharmacy 14.8 ml/min; Est GFR (African American) 13.6 ml/min; Est GFR (Non-African American) 11.8 ml/min; Potassium 5.4 mmol/L (3.5-5.1)
[2021-02-15 16:26] LABS: Albumin Globulin Ratio 0.6 (0.9-2); Bilirubin,Total 0.3 mg/dl (0.2-1); Globulin 4.5 gm/dl (2.5-4.0); Total Protein 7.3 gm/dl (6.4-8.2)
[2021-02-15] MEDS: MoRPHine SULFATE 4 MG/ML 1 ML CARP\\VIAL IV PRN ×2 (16:32→19:55)
--- NOTE | 2021-02-15 17:20 | XRay Report ---
XR chest 1V portable HISTORY: 80 years-old Female trauma acute chest trauma COMPARISON: Chest radiograph 01/07/2021 TECHNIQUE: Supine AP view of the chest FINDINGS: Cardiac silhouette is enlarged. Right IJ dual-lumen hemodialysis catheter distal tip terminates in th e expected location of the mid SVC. Cardiomegaly with pulmonary vascular congestion and reticular int erstitial opacities. No pneumothorax. Trace left and small right pleural effusions with right greater than left bilateral airspace opacities. Calcified plaque of the thoracic aorta. Degenerative changes of the shoulders and spine. IMPRESSION: 1. Cardiomegaly with pulmonary edema. 2. Trace left and small right pleural effusions. 3. Right greater than left bibasilar opacities suggest atelectasis. Pneumonitis could appear similarl y. ACT 112: Negative or not required by law. The above report was generated using voice recognition software. It may contain grammatical, syntax o r spelling errors. Electronically signed by: All Osullivan M.D. 02/15/2021 5:18 PM
--- NOTE | 2021-02-15 17:23 | XRay Report ---
XR hip LT 2V w pelvis HISTORY: 80 years-old Female trauma acute posttraumatic pelvic and left hip pain COMPARISON: None TECHNIQUE: AP view the pelvis with 2 views of the left hip FINDINGS: Moderate osteoarthritis of the hips. Demineralized appearance of the. No acute pelvic ring fracture i dentified. Moderate degeneration of the SI joints. There is an acute mildly comminuted intertrochante anshul fracture of the left femur with fracture separation measuring up to approximately 9 mm. There is 9 mm volar displacement with 18 degrees of apex volar angulation. The lesser trochanteric fracture fr agment is displaced superiorly a few centimeters. Soft tissue swelling lateral to the left hip. No di slocation. IMPRESSION: Acute mildly comminuted and displaced intertrochanteric fracture of the left femur. ACT 112: Negative or not required by law. The above report was generated using voice recognition software. It may contain grammatical, syntax o r spelling errors. Electronically signed by: All Osullivan M.D. 02/15/2021 5:22 PM
--- NOTE | 2021-02-15 18:02 | History & Physical Report ---
Date of Service February 15, 2021 Assessment & Plan (1) Closed intertrochanteric fracture of left femur: Plan: NPO after midnight Geriatric hip fracture protocol order set [place] 5/325, 1 p.o. every 6 hours as needed moderate pain [place] 5/325, 2 p.o. every 6 hours as needed severe pain Dilaudid 0.25 mg IV every 3 hours as needed moderate pain Dilaudid 0.5 mg IV every 3 hours as needed severe pain Zofran 4 mg IV every 6 hours as needed Famotidine 20 mg IV every 12 hours Consult orthopedic surgery (2) End-stage renal disease on hemodialysis: Plan: Undergoes dialysis, Friday, Friday and Friday Consult nephrology Dr. Spangler (3) Type 2 diabetes mellitus with insulin therapy: Plan: Decrease Basaglar from 10 to [address] Accu-Cheks before meals and at bedtime with NovoLog coverage per scale (4) Depression: Plan: Continue venlafaxine (5) CAD (coronary artery disease): Plan: CAD/hypertension- Continue amlodipine and isosorbide mononitrate (6) Hypertension, uncontrolled: Plan: See above History of Present Illness Chief Complaint: The patient presents to the emergency department with left hip pain after a fall at home earlier in the day today Primary Care Provider: David Lopez III, ELLIOTT The patient is a 80-year-old female with a past medical history including ESRD on HD, pulmonary hypertension, diabetic nephropathy, depression, urge and stress incontinence, urinary tract infections, hypertension, pulmonary nodules, cardiomyopathy, foot ulcer, moderate aortic stenosis, dyslipidemia, Graves' disease and anemia. 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 X-rays in the emergency department revealed and acute mildly comminuted and displaced intertrochanteric fracture of the left femur. Allergies Allergy/AdvReac Type Severity Reaction Status Date / Time codeine AdvReac Unknown DOES NOT Verified 02/15/21 17:10 LIKE THE WAY IT MAKES HER FEEL. Home Medications Medication Instructions Recorded Confirmed Type ascorbic acid (vitamin C) 500 mg 500 mg PO QAM tab 12/10/18 02/15/21 History tablet multivit with min-folic 1 tab PO QAM 12/10/18 02/15/21 History acid-lutein 400 mcg-250 mcg chewable tablet (Centrum Silver) polyethylene glycol 3350 17 17 gm PO DAILY PRN gm 12/10/18 02/15/21 History gram/dose oral powder venlafaxine 150 mg 150 mg PO QAM cap 12/10/18 02/15/21 History capsule,extended release 24 hr vitamins A,C,E-wivq-xoyatl 14,320 1 cap PO BID cap 12/10/18 02/15/21 History unit-226 mg-200 unit capsule (PreserVision AREDS) calcium carbonate-vitamin D3 600 2 tab PO QAM 03/09/20 02/15/21 History mg(1,500 mg)-400 unit chewable tablet (Calcium 600 with Vitamin D3) atorvastatin 80 mg tablet 80 mg PO QAM #90 tab 10/24/20 02/15/21 Rx isosorbide mononitrate 120 mg 120 mg PO QAM #90 tab 10/25/20 02/15/21 Rx tablet,extended release 24 hr amlodipine 5 mg tablet 5 mg PO BID #180 tab 11/23/20 02/15/21 Rx Novolog Flexpen U-100 Insulin 100 30 unit SUBCUT DAILY 90 Days #30 12/04/20 02/15/21 Rx unit/mL (3 mL) subcutaneous ml NS (insulin aspart U-100) cholecalciferol (vitamin D3) 25 50 mcg PO BID cap 12/27/20 02/15/21 History mcg (1,000 unit) capsule venlafaxine 37.5 mg 37.5 mg PO QAM 12/31/20 02/15/21 History tablet,extended release 24 hr insulin glargine 100 unit/mL (3 10 unit SUBCUT QPM #0 ml 01/07/21 02/15/21 Rx mL) subcutaneous pen (Basaglar KwikPen U-100 Insulin) Past Med/Surg History Medical History (Updated 02/15/21 @ 20:54 by Nimesh Demarco MD) Acute exacerbation of CHF (congestive heart failure) Acute kidney injury superimposed on chronic kidney disease Anemia Chronic, hgb's in the 10-11 range per chart view, remote hx blood transfusions CAD (coronary artery disease) Carotid artery disease Less than 50% ICA stenosis per 08/2016 carotid duplex 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 Chronic gastroesophageal reflux disease Chronic kidney disease Worsening creatinine now in the 3's under surveillance by nephrology ([facility]), plan for AVF/future dialysis Depression Diabetes IDDM Diabetic peripheral neuropathy associated with type 2 diabetes mellitus Dyslipidemia Gallstones Generalized osteoarthritis of multiple sites Graves disease Per records, TSH WNL 02/2020 labs H/O malignant neoplasm of uterine body Hiatal hernia Hypertension Hypoxemia Irregular heart beat metoprolol for this per pt Kidney stones Macular degeneration Moderate calcific aortic stenosis Moderate (ANUJ 1.0cm2, MG 20.8mmhg) per 10/2020 echo Multinodular goiter (nontoxic) Multiple thyroid nodules Obesity Osteopenia Secondary hyperparathyroidism Sleep apnea No device Subclinical hyperthyroidism Type 2 diabetes mellitus with insulin therapy Surgical History Fistula H/O abdominoplasty H/O basal cell carcinoma excision H/O shoulder surgery Right History of appendectomy History of cataract surgery R/L History of colonoscopy History of esophagogastroduodenoscopy (EGD) History of tonsillectomy History of tooth extraction S/P complete hysterectomy Family History Father Lung cancer Diabetes Mother , in a home fire Hypertension Denies family history of Ovarian cancer Prostate cancer Myocardial infarction Breast cancer Colorectal cancer Social History Smoking Status: Never smoker Second Hand Exposure: No; Hx Alcohol Use: No Hx Substance Use: No Preferred Language: Japanese Communication Ability: Effective Visual Impairment: No Limitations Hearing Ability: Normal Licensed Psychologist Director Required: No Beliefs That Will Affect Care: None marital status: / Current Living Situation: Family current occupational status: retired Feels Safe at Home: Yes Safety Concerns Comment: unsteady at times Childhood Exposure to Second-Hand Smoke: Yes Dental Care, Regularly: No Physical Activity Frequency: Does not Exercise Seatbelt Use: always Sunscreen Use: No Assistive Devices: Walker Review of Systems Review of Systems: The patient denies chest pain, palpitations, shortness of breath, dyspnea on exertion, cough, lower extremity swelling, sore throat, fevers, chills, sweats, weight change, fatigue, nausea, vomiting, diarrhea , constipation, abdominal pain, pelvic pain, blood in urine or stool, dysuria, urinary frequency or urgency, lightheadedness, dizziness, headache, memory loss, loss of consciousness, rash, abnormal bruising or bleeding, focal or generalized weakness, numbness or tingling in arms, generalized arthralgias or myalgias, back or neck pain, or night sweats. The review of systems is otherwise negative other than for that already noted above, and at least 10 systems have been reviewed. Physical Exam Physical Exam: The patient is awake, alert and oriented 3, well developed and well nourished, normocephalic and atraumatic, lying in bed and in no acute distress. HEENT--PERRL, EOMI, mucous membranes and oropharynx dry. Neck--supple. No JVD. No bruits. Thyroid normal, trachea midline, no adenopathy. Heart--normal S1 and S2. No murmurs, rubs or gallops. Lungs--clear bilaterally, no respiratory distress, no accessory muscle use. Abdomen--normal bowel sounds and soft. Nontender. Nondistended, no hernias or masses, no organomegaly. Extremities--no cyanosis or clubbing. No edema. Dermatologic--normal skin turgor, normal color, no abnormal lymph nodes, no rash. Neurologic--cranial nerves II through XII grossly intact. Rheumatologic--limited exam due to hip fracture Psychiatric--normal affect. Results & Data Results & Data ([facility]) Vital Signs (Past 12 Hours) Vital Signs Temp Pulse Pulse Resp BP BP Pulse Ox 02/15/21 17:47 58 L 18 186/65 H 94 02/15/21 15:23 97.7 F 59 L 17 202/66 H 99 Laboratory Results Laboratory Results WBC 6.75 K/uL (4.8-10.8) 02/15/21 15:30 RBC 3.75 M/uL (4.2-5.4) L 02/15/21 15:30 Hgb 10.3 g/dL (12.0-16.0) L 02/15/21 15:30 Hct 33.7 % (37-47) L 02/15/21 15:30 MCV 89.9 fL (80-100) 02/15/21 15:30 MCH 27.5 pg (25-34) 02/15/21 15:30 MCHC 30.6 g/dL (32-36) L 02/15/21 15:30 RDW Std Deviation 54.3 fL (36.4-46.3) H 02/15/21 15:30 RDW Coeff of Chris 16.5 % (11.5-14.5) H 02/15/21 15:30 Plt Count 205 K/uL (130-400) 02/15/21 15:30 MPV 9.7 fL (7.4-10.4) 02/15/21 15:30 Immature Gran % (Auto) 0.4 % 02/15/21 15:30 Neut % (Auto) 54.0 % 02/15/21 15:30 Lymph % (Auto) 24.1 % 02/15/21 15:30 [place] % (Auto) 12.1 % 02/15/21 15:30 Eos % (Auto) 9.0 % 02/15/21 15:30 Baso % (Auto) 0.4 % 02/15/21 15:30 Neut # (Auto) 3.63 K/uL (1.4-6.5) 02/15/21 15:30 Lymph # (Auto) 1.63 K/uL (1.2-3.4) 02/15/21 15:30 [place] # (Auto) 0.82 K/uL (0.11-0.59) H 02/15/21 15:30 Eos # (Auto) 0.61 K/uL (0-0.5) H 02/15/21 15:30 Baso # (Auto) 0.03 K/uL (0-0.2) 02/15/21 15:30 Immature Gran # (Auto) 0.03 K/uL (0.00-0.02) H 02/15/21 15:30 PT 10.0 Seconds (9.0-12.0) 02/15/21 17:51 INR 1.0 (0.9-1.1) 02/15/21 17:51 APTT 25.3 Seconds (21.0-31.0) 02/15/21 17:51 PTT Ratio 1.0 02/15/21 17:51 Sodium 135 mmol/L (136-145) L 02/15/21 15:30 Potassium 5.4 mmol/L (3.5-5.1) H 02/15/21 15:30 Chloride 101 mmol/L (98-107) 02/15/21 15:30 Carbon Dioxide 29 mmol/L (21-32) 02/15/21 15:30 Anion Gap 5.0 (3-11) 02/15/21 15:30 BUN 26 mg/dl (7-18) H 02/15/21 15:30 Creatinine 3.52 mg/dl (0.6-1.2) H 02/15/21 15:30 Est Cr Clr Drug Dosing 14.8 ml/min 02/15/21 15:30 Est GFR ( Amer) 13.6 ml/min 02/15/21 15:30 Est GFR (Non-Af Amer) 11.8 ml/min 02/15/21 15:30 BUN/Creatinine Ratio 7.5 (10-20) L 02/15/21 15:30 Glucose 140 mg/dl (70-99) H 02/15/21 15:30 Calcium 9.9 mg/dl (8.5-10.1) 02/15/21 15:30 Total Bilirubin 0.3 mg/dl (0.2-1) 02/15/21 15:30 AST 27 U/L (15-37) 02/15/21 15:30 ALT 21 U/L (12-78) 02/15/21 15:30 Alkaline Phosphatase 106 U/L (45-117) 02/15/21 15:30 Total Protein 7.3 gm/dl (6.4-8.2) 02/15/21 15:30 Albumin 2.8 gm/dl (3.4-5.0) L 02/15/21 15:30 Globulin 4.5 gm/dl (2.5-4.0) H 02/15/21 15:30 Albumin/Globulin Ratio 0.6 (0.9-2) L 02/15/21 15:30 COVID-19 Eval Order Covid19 at [facility] 02/15/21 18:16 SARS-CoV-2 (PCR) NEGATIVE (Negative) 02/15/21 18:16 Impressions Chest X-Ray 02/15/21 16:06 XR chest 1V portable HISTORY: 80 years-old Female trauma acute chest trauma COMPARISON: Chest radiograph 01/07/2021 TECHNIQUE: Supine AP view of the chest FINDINGS: Cardiac silhouette is enlarged. Right IJ dual-lumen hemodialysis catheter distal tip terminates in the expected location of the mid SVC. Cardiomegaly with pulmonary vascular congestion and reticular interstitial opacities. No pneumothorax. Trace left and small right pleural effusions with right greater than left bilateral airspace opacities. Calcified plaque of the thoracic aorta. Degenerative changes of the shoulders and spine. IMPRESSION: 1. Cardiomegaly with pulmonary edema. 2. Trace left and small right pleural effusions. 3. Right greater than left bibasilar opacities suggest atelectasis. Pneumonitis could appear similarly. ACT 112: Negative or not required by law. The above report was generated using voice recognition software. It may contain grammatical, syntax or spelling errors. Electronically signed by: All Osullivan M.D. 02/15/2021 5:18 PM Hip/Pelvis X-Ray 02/15/21 16:06 XR hip LT 2V w pelvis HISTORY: 80 years-old Female trauma acute posttraumatic pelvic and left hip pain COMPARISON: None TECHNIQUE: AP view the pelvis with 2 views of the left hip FINDINGS: Moderate osteoarthritis of the hips. Demineralized appearance of the. No acute pelvic ring fracture identified. Moderate degeneration of the SI joints. There is an acute mildly comminuted intertrochanteric fracture of the left femur with fracture separation measuring up to approximately 9 mm. There is 9 mm volar displacement with 18 degrees of apex volar angulation. The lesser trochanteric fracture fragment is displaced superiorly a few centimeters. Soft tissue swelling lateral to the left hip. No dislocation. IMPRESSION: Acute mildly comminuted and displaced intertrochanteric fracture of the left femur. ACT 112: Negative or not required by law. The above report was generated using voice recognition software. It may contain grammatical, syntax or spelling errors. Electronically signed by: All Osullivan M.D. 02/15/2021 5:22 PM Code Status & VTE Plan Code Status Full code VTE Prophylaxis Plan VTE Prophylaxis will be ordered: Yes PG Care Time/CCT Total # of Minutes Spent Total Time Spent with Patient: Total time spent is greater than 50% in coordination of care (as documented) at patient's floor/unit and/or counseling patient: Coding Level of Care Code 21659 Initial Inpt Care Lvl 3 Diagnoses Closed intertrochanteric fracture of left femur S72.142A Encounter type: initial encounter Fracture alignment: displaced End-stage renal disease on hemodialysis N18.6; Z99.2 Type 2 diabetes mellitus with insulin therapy E11.9; Z79.4 Depression F32.9 Hypertension, uncontrolled I10 CAD (coronary artery disease) I25.10 (1) Closed intertrochanteric fracture of left femur Encounter type: initial encounter Fracture alignment: displaced Qualified Code(s): S72.142A - Displaced intertrochanteric fracture of left femur, initial encounter for closed fracture
[2021-02-15 18:12] LABS: Partial Thromboplastin Time 25.3 Seconds (21.0-31.0)
[2021-02-15] MEDS ORDERED: DEXTROSE 50% 50 ML SYRINGE IV PRN (20:51)
[2021-02-15] MEDS ORDERED: GLUCOSE 10 TABS/TUBE PO PRN (20:51)
[2021-02-15] MEDS ORDERED: POLYETHYLENE (MIRALAX) 17 GM PACK PO PRN (20:51)
[2021-02-15] MEDS ORDERED: NALOXONE HCL 0.4 MG/1 ML VIAL/CARP IV PRN (20:51)
[2021-02-15] MEDS ORDERED: HYDROmorphone INJ 0.5 MG/0.5 ML SYR IV PRN ×2 (20:51)
[2021-02-15] MEDS ORDERED: CARBOHYDRATES FOR HYPOGLYCEMIA PO PRN (20:51)
[2021-02-15] MEDS ORDERED: ONDANSETRON INJ 2 MG/ML 2 ML VIAL IV PRN (20:51)
[2021-02-15] MEDS ORDERED: GLUCAGON FOR INJ 1 MG VIAL SQ PRN (20:51)
[2021-02-15] MEDS ORDERED: bisacodyL 10 MG SUPP PR PRN (20:51)
[2021-02-15] MEDS ORDERED: HYDROCODONE/ACETAMOPHEN 5/325MG TAB PO PRN ×2 (20:51)
[2021-02-15] MEDS ORDERED: GLUCOSE 40% GEL 15 GM TUBE PO PRN (20:51)
[2021-02-15] MEDS: amLODIPine BESYLATE 5 MG TAB PO SCH (21:55)
[2021-02-15] MEDS: FAMOTIDINE 20 MG in SYRINGE 3 ML IV SCH (21:55)
[2021-02-15] MEDS: INSULIN ASPART 100 UNITS/ML 3 ML PEN SC SCH (21:56)
[2021-02-15] MEDS: INSULIN GLARGINE SOLOSTAR 100 UNITS/ML 3 ML PEN SQ SCH (21:56)
[2021-02-15] MEDS: DOCUSATE SODIUM/SENNA 50/8.6MG TAB PO SCH (21:56)
[2021-02-15] MEDS: CHOLECALCIFEROL 1,000 UNITS 25 MCG TAB PO SCH (21:56)
[2021-02-16] MEDS: INSULIN ASPART 100 UNITS/ML 3 ML PEN SC SCH ×3 (06:24→22:02)
[2021-02-16 08:51] LABS: Estimated Average Glucose 140 mg/dl; Hemoglobin A1C 6.5 % (4.5-5.6)
[2021-02-16] MEDS: CALCIUM 600MG + VIT D 400 IU TAB PO SCH (09:00)
[2021-02-16] MEDS: ASCORBIC ACID 500 MG TAB PO SCH (09:00)
[2021-02-16] MEDS: ATORVASTATIN 40 MG TAB PO SCH (09:00)
[2021-02-16] MEDS: CHOLECALCIFEROL 1,000 UNITS 25 MCG TAB PO SCH ×2 (09:01→22:01)
[2021-02-16] MEDS: FAMOTIDINE 20 MG in SYRINGE 3 ML IV SCH ×2 (09:01→22:05)
[2021-02-16] MEDS: CEROVITE ADV FORMULA TAB PO SCH (09:02)
[2021-02-16] MEDS: VENLAFAXINE HCL XR 150 MG CAPXR PO SCH (09:02)
[2021-02-16] MEDS: VENLAFAXINE HCL XR 37.5 MG CAPXR PO SCH (09:02)
--- NOTE | 2021-02-16 09:55 | Nephrology Consultation ---
Date of Consultation February 16, 2021 Assessment & Plan (1) End-stage renal disease on hemodialysis: ESRD on HD MWF. Orders for HD today entered into EMR and reviewed with dialysis nurse. Outpatient orders: 4 hours, 180 optiflux Qb 300 with 3 K bath. EDW has been 84.5 kg. Typical UF 1-2 L. TDC has been used for treatment. Successful arterial stick to AVF on 02/14. Medications appropriately dosed for IHD. (2) Closed intertrochanteric fracture of left femur: Ortho consult pending. (3) Anemia: Chronic, stable. Maintained on Micera as outpatient. Venofer 100 mg with HD today. (4) Hypertension: Elevated BP, anticipate some improvement with HD. Continue home medications. UF goal 2-3 L as tolerated. History of Present Illness Reason for Consultation: ESRD on HD Requesting Physician: Yosi Randall MD Attending Physician: Yosi Randall MD History of Present Illness Sonam Bolivar is a 80-year-old female with ESRD. She was admitted to [facility] last month with advanced CKD and volume overload requiring initiation of dialysis. TDC placed on 01/[address] Gregg and HD started the same day. She was discharge in early January and has been on HD on a MWF schedule at [facility]. Sonam follows in the nephrology clinic with Dr. Spangler. CKD has been attributed to DKD. L RC AVF was placed by Dr. Gregg on November 08. Arterial stick of the AVF was successful with her last HD treatment. TDC remains in place and was used for venous return. Sonam completed dialysis on 02/14 without complications. Unfortunately, she suffered a mechanical fall at home yesterday evening resulting in a left hip fracture. Pain has been controlled. She was resting comfortably in bed during assessment this AM. Supplemental oxygen pr ovided overnight via nasal canula for hypoxia. Sonam follows in the cardiology clinic with Dr. Hamm. She has a history of coronary artery disease and HFpEF. LVEF 45% with mild LVH, moderate MR and moderate . Medical history is also notable for Graves disease and multinodular goiter as well as DMII, obesity, and hypertension. Sonam lives in [facility]. She has family who assist her at home. Allergies Allergy/AdvReac Type Severity Reaction Status Date / Time codeine AdvReac Unknown DOES NOT Verified 02/15/21 17:10 LIKE THE WAY IT MAKES HER FEEL. Home Medications Medication Instructions Recorded Confirmed Type ascorbic acid (vitamin C) 500 mg 500 mg PO QAM tab 12/10/18 02/15/21 History tablet multivit with min-folic 1 tab PO QAM 12/10/18 02/15/21 History acid-lutein 400 mcg-250 mcg chewable tablet (Centrum Silver) polyethylene glycol 3350 17 17 gm PO DAILY PRN gm 12/10/18 02/15/21 History gram/dose oral powder venlafaxine 150 mg 150 mg PO QAM cap 12/10/18 02/15/21 History capsule,extended release 24 hr vitamins A,C,M-rdah-riufza 14,320 1 cap PO BID cap 12/10/18 02/15/21 History unit-226 mg-200 unit capsule (PreserVision AREDS) calcium carbonate-vitamin D3 600 2 tab PO QAM 03/09/20 02/15/21 History mg(1,500 mg)-400 unit chewable tablet (Calcium 600 with Vitamin D3) atorvastatin 80 mg tablet 80 mg PO QAM #90 tab 10/24/20 02/15/21 Rx isosorbide mononitrate 120 mg 120 mg PO QAM #90 tab 10/25/20 02/15/21 Rx tablet,extended release 24 hr amlodipine 5 mg tablet 5 mg PO BID #180 tab 11/23/20 02/15/21 Rx Novolog Flexpen U-100 Insulin 100 30 unit SUBCUT DAILY 90 Days #30 12/04/20 02/15/21 Rx unit/mL (3 mL) subcutaneous ml NS (insulin aspart U-100) cholecalciferol (vitamin D3) 25 50 mcg PO BID cap 12/27/20 02/15/21 History mcg (1,000 unit) capsule venlafaxine 37.5 mg 37.5 mg PO QAM 12/31/20 02/15/21 History tablet,extended release 24 hr insulin glargine 100 unit/mL (3 10 unit SUBCUT QPM #0 ml 01/07/21 02/15/21 Rx mL) subcutaneous pen (Basaglar KwikPen U-100 Insulin) Patient History Medical History (Updated 02/16/21 @ 09:59 by Atul C. Kamrar, DO) Acute exacerbation of CHF (congestive heart failure) Anemia Chronic, hgb's in the 10-11 range per chart view, remote hx blood transfusions CAD (coronary artery disease) Carotid artery disease Less than 50% ICA stenosis per 08/2016 carotid duplex 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 Chronic gastroesophageal reflux disease Chronic kidney disease Worsening creatinine now in the 3's under surveillance by nephrology ([facility]), plan for AVF/future dialysis Depression Diabetes IDDM Diabetic peripheral neuropathy associated with type 2 diabetes mellitus Dyslipidemia Gallstones Generalized osteoarthritis of multiple sites Graves disease Per records, TSH WNL 02/2020 labs H/O malignant neoplasm of uterine body Hiatal hernia Hypertension Hypoxemia Irregular heart beat metoprolol for this per pt Kidney stones Macular degeneration Moderate calcific aortic stenosis Moderate (ANUJ 1.0cm2, MG 20.8mmhg) per 10/2020 echo Multinodular goiter (nontoxic) Multiple thyroid nodules Obesity Osteopenia Secondary hyperparathyroidism Sleep apnea No device Subclinical hyperthyroidism Type 2 diabetes mellitus with insulin therapy Surgical History Fistula H/O abdominoplasty H/O basal cell carcinoma excision H/O shoulder surgery Right History of appendectomy History of cataract surgery R/L History of colonoscopy History of esophagogastroduodenoscopy (EGD) History of tonsillectomy History of tooth extraction S/P complete hysterectomy Family History Father Lung cancer Diabetes Mother , in a home fire Hypertension Denies family history of Ovarian cancer Prostate cancer Myocardial infarction Breast cancer Colorectal cancer Social History Smoking Status: Former smoker Second Hand Exposure: No; Do You Dip or Chew Tobacco: No; Hx Alcohol Use: No Hx Substance Use: No Preferred Language: Yi Communication Ability: Effective Visual Impairment: No Limitations Hearing Ability: Normal Outreach Clinician Required: No Beliefs That Will Affect Care: None marital status: / Current Living Situation: Family Current Living Situation Comment: Son and daughter in law current occupational status: retired Other Information That Helps Us Care for You: No Feels Safe at Home: Yes Safety Concerns: Feels Safe At This Time Safety Concerns Comment: unsteady at times Childhood Exposure to Second-Hand Smoke: Yes Dental Care, Regularly: No Physical Activity Frequency: Does not Exercise Seatbelt Use: always Sunscreen Use: No Assistive Devices: Walker Physical Exam Constitutional: well developed and + frail appearing; not in distress Eyes: PERRL, conjunctivae normal, anicteric sclerae ENMT: external ear and nose normal, oropharynx normal Neck: trachea midline, no thyromegaly RIJ TDC Respiratory: normal respiratory effort, lungs clear to auscultation Cardiovascular: Rate/Rhythm: regular rate and regular rhythm Extremities: + edema (trace LE swelling) and + AV fistula Gastrointestinal (Abdomen): normal bowel sounds, soft, nontender, no hepatosplenomegaly Musculoskeletal: Extremities: no cyanosis Skin: no rashes, warm and dry Neurologic: awake; not confused Results & Data ([facility]) Vital Signs (Past 12 Hours) Vital Signs Temp Pulse Pulse Resp BP Pulse Ox 02/16/21 07:00 36.8 C 57 L 18 174/71 H 98 02/16/21 03:00 36.9 C 55 L 20 147/60 H 94 02/16/21 02:00 57 L 02/15/21 23:17 36.7 C 55 L 18 184/63 H 95 Laboratory Results Laboratory Results - last 24 hr 02/15/21 02/15/21 02/15/21 15:30 15:30 15:30 WBC 6.75 RBC 3.75 L Hgb 10.3 L Hct 33.7 L MCV 89.9 MCH 27.5 MCHC 30.6 L RDW Std Deviation 54.3 H RDW Coeff of Chris 16.5 H Plt Count 205 MPV 9.7 Immature Gran % (Auto) 0.4 Neut % (Auto) 54.0 Lymph % (Auto) 24.1 Sherman % (Auto) 12.1 Eos % (Auto) 9.0 Baso % (Auto) 0.4 Neut # (Auto) 3.63 Lymph # (Auto) 1.63 Sherman # (Auto) 0.82 H Eos # (Auto) 0.61 H Baso # (Auto) 0.03 Immature Gran # (Auto) 0.03 H PT INR APTT PTT Ratio Sodium 135 L Potassium 5.4 H Chloride 101 Carbon Dioxide 29 Anion Gap 5.0 BUN 26 H Creatinine 3.52 H Est Cr Clr Drug Dosing 14.8 Est GFR ( Amer) 13.6 Est GFR (Non-Af Amer) 11.8 BUN/Creatinine Ratio 7.5 L Glucose 140 H POC Glucose Estimat Average Glucose 140 Hemoglobin A1c 6.5 H Calcium 9.9 Total Bilirubin 0.3 AST 27 ALT 21 Alkaline Phosphatase 106 Total Protein 7.3 Albumin 2.8 L Globulin 4.5 H Albumin/Globulin Ratio 0.6 L Nasal Screen MRSA (PCR) COVID-19 Eval Order SARS-CoV-2 (PCR) 02/15/21 02/15/21 02/15/21 17:51 18:16 18:16 WBC RBC Hgb Hct MCV MCH MCHC RDW Std Deviation RDW Coeff of Chris Plt Count MPV Immature Gran % (Auto) Neut % (Auto) Lymph % (Auto) Sherman % (Auto) Eos % (Auto) Baso % (Auto) Neut # (Auto) Lymph # (Auto) Sherman # (Auto) Eos # (Auto) Baso # (Auto) Immature Gran # (Auto) PT 10.0 INR 1.0 APTT 25.3 PTT Ratio 1.0 Sodium Potassium Chloride Carbon Dioxide Anion Gap BUN Creatinine Est Cr Clr Drug Dosing Est GFR ( Amer) Est GFR (Non-Af Amer) BUN/Creatinine Ratio Glucose POC Glucose Estimat Average Glucose Hemoglobin A1c Calcium Total Bilirubin AST ALT Alkaline Phosphatase Total Protein Albumin Globulin Albumin/Globulin Ratio Nasal Screen MRSA (PCR) COVID-19 Eval Order Covid19 at [facility] SARS-CoV-2 (PCR) NEGATIVE 02/15/21 02/15/21 02/16/21 20:51 21:42 03:02 WBC RBC Hgb Hct MCV MCH MCHC RDW Std Deviation RDW Coeff of Chris Plt Count MPV Immature Gran % (Auto) Neut % (Auto) Lymph % (Auto) Sherman % (Auto) Eos % (Auto) Baso % (Auto) Neut # (Auto) Lymph # (Auto) Sherman # (Auto) Eos # (Auto) Baso # (Auto) Immature Gran # (Auto) PT INR APTT PTT Ratio Sodium Potassium Chloride Carbon Dioxide Anion Gap BUN Creatinine Est Cr Clr Drug Dosing Est GFR ( Amer) Est GFR (Non-Af Amer) BUN/Creatinine Ratio Glucose POC Glucose 103 H 116 H Estimat Average Glucose Hemoglobin A1c Calcium Total Bilirubin AST ALT Alkaline Phosphatase Total Protein Albumin Globulin Albumin/Globulin Ratio Nasal Screen MRSA (PCR) Negative COVID-19 Eval Order SARS-CoV-2 (PCR) 02/16/21 05:36 WBC RBC Hgb Hct MCV MCH MCHC RDW Std Deviation RDW Coeff of Chris Plt Count MPV Immature Gran % (Auto) Neut % (Auto) Lymph % (Auto) Sherman % (Auto) Eos % (Auto) Baso % (Auto) Neut # (Auto) Lymph # (Auto) Sherman # (Auto) Eos # (Auto) Baso # (Auto) Immature Gran # (Auto) PT INR APTT PTT Ratio Sodium Potassium Chloride Carbon Dioxide Anion Gap BUN Creatinine Est Cr Clr Drug Dosing Est GFR ( Amer) Est GFR (Non-Af Amer) BUN/Creatinine Ratio Glucose POC Glucose 113 H Estimat Average Glucose Hemoglobin A1c Calcium Total Bilirubin AST ALT Alkaline Phosphatase Total Protein Albumin Globulin Albumin/Globulin Ratio Nasal Screen MRSA (PCR) COVID-19 Eval Order SARS-CoV-2 (PCR) PG Care Time/CCT Total # of Minutes Spent Total Time Spent with Patient: Total time spent is greater than 50% in coordination of care (as documented) at patient's floor/unit and/or counseling patient: Coding Level of Care Code 58250 Inpt Consult Level 4 Diagnoses End-stage renal disease on hemodialysis N18.6; Z99.2 Closed intertrochanteric fracture of left femur S72.142A Encounter type: initial encounter Fracture alignment: displaced Anemia N18.6; D63.1; Z99.2 Anemia type: due to chronic kidney disease Chronic kidney disease stage: on chronic dialysis Hypertension I10 Hypertension type: unspecified (1) Closed intertrochanteric fracture of left femur Encounter type: initial encounter Fracture alignment: displaced Qualified Code(s): S72.142A - Displaced intertrochanteric fracture of left femur, initial encounter for closed fracture (2) Anemia Anemia type: due to chronic kidney disease Chronic kidney disease stage: on chronic dialysis Qualified Code(s): N18.6 - End stage renal disease; D63.1 - Anemia in chronic kidney disease; Z99.2 - Dependence on renal dialysis (3) Hypertension Hypertension type: unspecified Qualified Code(s): I10 - Essential (primary) hypertension
[2021-02-16] MEDS ORDERED: IRON SUCROSE 100 MG in SYRINGE 0 ML IV SCH (10:00)
--- NOTE | 2021-02-16 11:54 | Orthopedic Consultation ---
Date of Service February 16, 2021 Assessment & Plan (1) Closed intertrochanteric fracture of left femur: We discussed the diagnosis and treatment options at bedside. I did recommend intramedullary nail fixation of the left hip. She would like to proceed. She understands the risk, benefits, and alternatives to procedure and elected to proceed. Questions were answered at bedside and the consents were signed. The decision was made for surgery. She is currently n.p.o. and the anesthesiology group is checking her current medical status and her fluid levels. History of Present Illness Reason for Consultation: Left intertrochanteric hip fracture. Requesting Physician: . Attending Physician: Yosi Randall MD Sonam is a pleasant 80-year-old female who was at home yesterday. She was reaching into the lower cabinets of her kitchen. When she went to stand up she lost her balance and fell onto her left hip. She had significant left hip pain. She came to the emergency room and radiographs demonstrated a moderately displaced left intertrochanteric hip fracture. She was admitted to the hospitalist service. Orthopedics was consulted to evaluate and treat.. Allergies Allergy/AdvReac Type Severity Reaction Status Date / Time codeine AdvReac Unknown DOES NOT Verified 02/15/21 17:10 LIKE THE WAY IT MAKES HER FEEL. Home Medications Medication Instructions Recorded Confirmed Type ascorbic acid (vitamin C) 500 mg 500 mg PO QAM tab 12/10/18 02/15/21 History tablet multivit with min-folic 1 tab PO QAM 12/10/18 02/15/21 History acid-lutein 400 mcg-250 mcg chewable tablet (Centrum Silver) polyethylene glycol 3350 17 17 gm PO DAILY PRN gm 12/10/18 02/15/21 History gram/dose oral powder venlafaxine 150 mg 150 mg PO QAM cap 12/10/18 02/15/21 History capsule,extended release 24 hr vitamins A,C,P-yvte-opcwim 14,320 1 cap PO BID cap 12/10/18 02/15/21 History unit-226 mg-200 unit capsule (PreserVision AREDS) calcium carbonate-vitamin D3 600 2 tab PO QAM 03/09/20 02/15/21 History mg(1,500 mg)-400 unit chewable tablet (Calcium 600 with Vitamin D3) atorvastatin 80 mg tablet 80 mg PO QAM #90 tab 10/24/20 02/15/21 Rx isosorbide mononitrate 120 mg 120 mg PO QAM #90 tab 10/25/20 02/15/21 Rx tablet,extended release 24 hr amlodipine 5 mg tablet 5 mg PO BID #180 tab 11/23/20 02/15/21 Rx Novolog Flexpen U-100 Insulin 100 30 unit SUBCUT DAILY 90 Days #30 12/04/20 02/15/21 Rx unit/mL (3 mL) subcutaneous ml NS (insulin aspart U-100) cholecalciferol (vitamin D3) 25 50 mcg PO BID cap 12/27/20 02/15/21 History mcg (1,000 unit) capsule venlafaxine 37.5 mg 37.5 mg PO QAM 12/31/20 02/15/21 History tablet,extended release 24 hr insulin glargine 100 unit/mL (3 10 unit SUBCUT QPM #0 ml 01/07/21 02/15/21 Rx mL) subcutaneous pen (Basaglar KwikPen U-100 Insulin) Past Med/Surg History Medical History Acute exacerbation of CHF (congestive heart failure) Anemia Chronic, hgb's in the 10-11 range per chart view, remote hx blood transfusions CAD (coronary artery disease) Carotid artery disease Less than 50% ICA stenosis per 08/2016 carotid duplex 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 Chronic gastroesophageal reflux disease Chronic kidney disease Worsening creatinine now in the 3's under surveillance by nephrology ([facility]), plan for AVF/future dialysis Depression Diabetes IDDM Diabetic peripheral neuropathy associated with type 2 diabetes mellitus Dyslipidemia Gallstones Generalized osteoarthritis of multiple sites Graves disease Per records, TSH WNL 02/2020 labs H/O malignant neoplasm of uterine body Hiatal hernia Hypertension Hypoxemia Irregular heart beat metoprolol for this per pt Kidney stones Macular degeneration Moderate calcific aortic stenosis Moderate (ANUJ 1.0cm2, MG 20.8mmhg) per 10/2020 echo Multinodular goiter (nontoxic) Multiple thyroid nodules Obesity Osteopenia Secondary hyperparathyroidism Sleep apnea No device Subclinical hyperthyroidism Type 2 diabetes mellitus with insulin therapy Surgical History Fistula H/O abdominoplasty H/O basal cell carcinoma excision H/O shoulder surgery Right History of appendectomy History of cataract surgery R/L History of colonoscopy History of esophagogastroduodenoscopy (EGD) History of tonsillectomy History of tooth extraction S/P complete hysterectomy Family History Father Lung cancer Diabetes Mother , in a home fire Hypertension Denies family history of Ovarian cancer Prostate cancer Myocardial infarction Breast cancer Colorectal cancer Social History Smoking Status: Former smoker Second Hand Exposure: No; Do You Dip or Chew Tobacco: No; Hx Alcohol Use: No Hx Substance Use: No Preferred Language: Irish Communication Ability: Effective Visual Impairment: No Limitations Hearing Ability: Normal Quality Assurance Supervisor Chassis Required: No Beliefs That Will Affect Care: None marital status: / Current Living Situation: Family Current Living Situation Comment: Son and daughter in law current occupational status: retired Other Information That Helps Us Care for You: No Feels Safe at Home: Yes Safety Concerns: Feels Safe At This Time Safety Concerns Comment: unsteady at times Childhood Exposure to Second-Hand Smoke: Yes Dental Care, Regularly: No Physical Activity Frequency: Does not Exercise Seatbelt Use: always Sunscreen Use: No Assistive Devices: Walker Review of Systems All systems reviewed & are unremarkable except as noted in HPI & below. Physical Exam On examination of the left hip, the leg is shortened and externally rotated. She has active dorsiflexion and plantarflexion of her left ankle. Sensation is intact.. Constitutional WD/WN, vitals as above Eyes PERRL, conjunctivae normal, anicteric sclerae ENMT external ear and nose normal, oropharynx normal Neck trachea midline, no thyromegaly Respiratory normal respiratory effort Cardiovascular RRR, no murmur, no edema Gastrointestinal (Abdomen) normal bowel sounds, soft, nontender, no hepatosplenomegaly Psychiatric A+Ox3, euthymic affect Results & Data Results & Data Laboratory Results . Diagnostic Findings X-rays of the left hip show a moderately displaced left intertrochanteric hip fracture.. PG Care Time/CCT Total # of Minutes Spent Total Time Spent with Patient: Total time spent is greater than 50% in coordination of care (as documented) at patient's floor/unit and/or counseling patient: Coding Level of Care Code 28272 Inpt Consult Level 4 (57 - DECISION FOR SURGERY) Diagnoses Closed intertrochanteric fracture of left femur S72.142A Encounter type: initial encounter Fracture alignment: displaced (1) Closed intertrochanteric fracture of left femur Encounter type: initial encounter Fracture alignment: displaced Qualified Code(s): S72.142A - Displaced intertrochanteric fracture of left femur, initial encounter for closed fracture
--- NOTE | 2021-02-16 11:59 | Anesthesiology Consultation ---
Date of Service February 16, 2021 Assessment & Plan (1) Encounter for pre-operative examination: History Surgery Operation Date: 02/16/21 09:05 Proposed Procedures p Left Short Nail - Heriberto Ly, Height/Weight Height: 5 ft 6 in Weight: 86.6 kg Allergies Allergy/AdvReac Type Severity Reaction Status Date / Time codeine AdvReac Unknown DOES NOT Verified 02/15/21 17:10 LIKE THE WAY IT MAKES HER FEEL. Medications Home Medications Medication Instructions Recorded Confirmed Last Taken ascorbic acid (vitamin C) 500 mg 500 mg PO QAM tab 12/10/18 02/15/21 11/04/20 09:00 tablet multivit with min-folic 1 tab PO QAM 12/10/18 02/15/21 11/04/20 09:00 acid-lutein 400 mcg-250 mcg chewable tablet (Centrum Silver) polyethylene glycol 3350 17 17 gm PO DAILY PRN gm 12/10/18 02/15/21 11/07/20 09:00 gram/dose oral powder venlafaxine 150 mg 150 mg PO QAM cap 12/10/18 02/15/21 11/08/20 05:00 capsule,extended release 24 hr vitamins A,C,N-rxqs-ichfhn 14,320 1 cap PO BID cap 12/10/18 02/15/21 11/04/20 09:00 unit-226 mg-200 unit capsule (PreserVision AREDS) calcium carbonate-vitamin D3 600 2 tab PO QAM 03/09/20 02/15/21 11/04/20 09:00 mg(1,500 mg)-400 unit chewable tablet (Calcium 600 with Vitamin D3) atorvastatin 80 mg tablet 80 mg PO QAM #90 tab 10/24/20 02/15/21 11/08/20 05:00 isosorbide mononitrate 120 mg 120 mg PO QAM #90 tab 10/25/20 02/15/21 11/08/20 05:00 tablet,extended release 24 hr amlodipine 5 mg tablet 5 mg PO BID #180 tab 11/23/20 02/15/21 Unknown Novolog Flexpen U-100 Insulin 100 30 unit SUBCUT DAILY 90 Days #30 12/04/20 02/15/21 Unknown unit/mL (3 mL) subcutaneous ml NS (insulin aspart U-100) cholecalciferol (vitamin D3) 25 50 mcg PO BID cap 12/27/20 02/15/21 Unknown mcg (1,000 unit) capsule venlafaxine 37.5 mg 37.5 mg PO QAM 12/31/20 02/15/21 Unknown tablet,extended release 24 hr insulin glargine 100 unit/mL (3 10 unit SUBCUT QPM #0 ml 01/07/21 02/15/21 11/07/20 22:00 mL) subcutaneous pen (Basaglar KwikPen U-100 Insulin) Active Medications Generic Name Dose Route Start Last Admin Trade Name Freq PRN Reason Stop Dose Admin Amlodipine Besylate 5 mg 02/15/21 21:00 02/15/21 21:55 Amlodipine Besylate 5 Mg Tab PO 03/17/21 20:59 5 mg BID CASA Administration Ascorbic Acid 500 mg 02/16/21 09:00 02/16/21 09:00 Ascorbic Acid 500 Mg Tab PO 03/18/21 08:59 500 mg QAM CASA Administration Atorvastatin Calcium 80 mg 02/16/21 09:00 02/16/21 09:00 Atorvastatin 40 Mg Tab PO 03/18/21 08:59 80 mg QAM CASA Administration Hydromorphone HCl 0.5 mg 02/15/21 20:51 02/16/21 03:00 Hydromorphone Inj 0.5 Mg/0.5 Ml Syr IV 03/01/21 20:50 0.5 mg Q3H PRN Administration Pain (6,7,8,9,10) Famotidine 20 mg/ Syringe 5 mls @ 2.5 mls/min 02/15/21 21:00 02/16/21 09:01 IV 03/17/21 20:59 2.5 mls/min Q12H CASA Administration Insulin Aspart 0 units 02/15/21 21:30 02/16/21 06:24 Insulin Aspart 100 Units/Ml 3 Ml Pen SC 03/17/21 21:29 Not Given Q6 CASA Insulin Glargine 5 units 02/15/21 21:30 02/15/21 21:56 Insulin Glargine Solostar 100 Units/Ml 3 Ml Pen SQ 03/17/21 21:29 5 units QPM CASA Administration Multivitamins/Minerals 2 tab 02/16/21 09:00 02/16/21 09:00 Calcium 600mg + Vit D 400 Iu Tab PO 03/18/21 08:59 2 tab QAM CASA Administration Multivitamins/Minerals 1 tab 02/16/21 09:00 02/16/21 09:02 Cerovite Adv Formula Tab PO 03/18/21 08:59 1 tab QAM CASA Administration Senna/Docusate Sodium 2 tab 02/15/21 21:00 02/15/21 21:56 Docusate Sodium/Senna 50/8.6mg Tab PO 03/17/21 20:59 2 tab HS CASA Administration Venlafaxine HCl 37.5 mg 02/16/21 09:00 02/16/21 09:02 Venlafaxine Hcl Xr 37.5 Mg Capxr PO 03/18/21 08:59 37.5 mg QAM CASA Administration Venlafaxine HCl 150 mg 02/16/21 09:00 02/16/21 09:02 Venlafaxine Hcl Xr 150 Mg Capxr PO 03/18/21 08:59 150 mg QAM CASA Administration Vitamin D 2,000 units 02/15/21 21:00 02/16/21 09:01 Cholecalciferol 1,000 Units 25 Mcg Tab PO 03/17/21 20:59 2,000 units BID CASA Administration Past Medical History Medical History Acute exacerbation of CHF (congestive heart failure) Anemia Chronic, hgb's in the 10-11 range per chart view, remote hx blood transfusions CAD (coronary artery disease) Carotid artery disease Less than 50% ICA stenosis per 08/2016 carotid duplex 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 Chronic gastroesophageal reflux disease Chronic kidney disease Worsening creatinine now in the 3's under surveillance by nephrology ([facility]), plan for AVF/future dialysis Depression Diabetes IDDM Diabetic peripheral neuropathy associated with type 2 diabetes mellitus Dyslipidemia Gallstones Generalized osteoarthritis of multiple sites Graves disease Per records, TSH WNL 02/2020 labs H/O malignant neoplasm of uterine body Hiatal hernia Hypertension Hypoxemia Irregular heart beat metoprolol for this per pt Kidney stones Macular degeneration Moderate calcific aortic stenosis Moderate (ANUJ 1.0cm2, MG 20.8mmhg) per 10/2020 echo Multinodular goiter (nontoxic) Multiple thyroid nodules Obesity Osteopenia Secondary hyperparathyroidism Sleep apnea No device Subclinical hyperthyroidism Type 2 diabetes mellitus with insulin therapy Past Family History Family History Father Lung cancer Diabetes Mother , in a home fire Hypertension Denies family history of Ovarian cancer Prostate cancer Myocardial infarction Breast cancer Colorectal cancer Past Surgical History Surgical History Fistula H/O abdominoplasty H/O basal cell carcinoma excision H/O shoulder surgery Right History of appendectomy History of cataract surgery R/L History of colonoscopy History of esophagogastroduodenoscopy (EGD) History of tonsillectomy History of tooth extraction S/P complete hysterectomy Social History Smoking Status: Former smoker tobacco type: cigarettes Do You Dip or Chew Tobacco: No Hx Alcohol Use: No Alcohol type: wine alcohol intake frequency: holidays/special occasions only Hx Substance Use: No substance use type: does not use Physical Exam Vital Signs Last Vital Signs Temp 37.2 C 02/16/21 12:17 Pulse 61 02/16/21 12:17 Resp 18 02/16/21 12:17 BP 169/53 H 02/16/21 12:17 Pulse Ox 100 02/16/21 12:17 Testing Laboratory Results 02/15/21 15:30 02/15/21 15:30 PT 10.0 Seconds (9.0-12.0) 02/15/21 17:51 INR 1.0 (0.9-1.1) 02/15/21 17:51 APTT 25.3 Seconds (21.0-31.0) 02/15/21 17:51 Hemoglobin A1c 6.5 % (4.5-5.6) H 02/15/21 15:30 02/16/21 02/16/21 02/16/21 12:18 05:36 03:02 POC Glucose 122 H 113 H 116 H Electrocardiogram Date: 02/15/21 Normal sinus rhythm Normal ECG When compared with ECG of 03-JAN-2021 05:50, Nonspecific T wave abnormality now evident in Lateral leads Chest X-Ray Date: 02/15/21 IMPRESSION: 1. Cardiomegaly with pulmonary edema. 2. Trace left and small right pleural effusions. 3. Right greater than left bibasilar opacities suggest atelectasis. Pneumonitis could appear similarly. Echocardiogram Date: 10/23/20 EF: 45-50% grade 1 diastolic dysfunction, global hypokinesis of left ventricle.
[2021-02-16] MEDS ORDERED: fentaNYL citrate 100 MCG/2 ML VIAL ONE (12:03)
[2021-02-16] MEDS ORDERED: PROPOFOL IV EMULSION 10 MG/ML 20 ML VIAL IV ONE (12:03)
[2021-02-16] MEDS ORDERED: ROCURONIUM BROMIDE 10 MG/ML 5 ML VIAL IV ONE (12:03)
[2021-02-16] MEDS ORDERED: DEXAMETHASONE SOD INJ 4 MG/ML VIAL ONE (12:03)
[2021-02-16] MEDS ORDERED: PHENYLEPHRINE HCL 10 MG/ML VIAL ONE (12:03)
[2021-02-16] MEDS ORDERED: ONDANSETRON INJ 2 MG/ML 2 ML VIAL ONE (12:03)
--- NOTE | 2021-02-16 12:12 | Hospitalist Progress Note ---
Date of Service February 16, 2021 Assessment & Plan (1) Closed intertrochanteric fracture of left femur: Plan: Left femur nailing 02/16/2021 Dr. Ly Geriatric hip fracture protocol order set Age-related osteoporosis with current fracture of left femur Whipple 5/325, 1 p.o. every 6 hours as needed moderate pain Whipple 5/325, 2 p.o. every 6 hours as needed severe pain Dilaudid 0.25 mg IV every 3 hours as needed moderate pain Dilaudid 0.5 mg IV every 3 hours as needed severe pain Zofran 4 mg IV every 6 hours as needed Famotidine 20 mg IV every 12 hours Consult orthopedic surgery (2) End-stage renal disease on hemodialysis: Plan: Undergoes dialysis, Friday, Friday and Friday did miss her dialysis on Friday 02/16 will of dialysis 02/[address] Spangler (3) Type 2 diabetes mellitus with insulin therapy: Plan: Decrease Basaglar from 10 to [address] on Accu-Cheks before meals and at bedtime with NovoLog coverage per scale (4) Depression: Plan: Continue venlafaxine (5) CAD (coronary artery disease): Plan: CAD/hypertension- Continue amlodipine and isosorbide mononitrate (6) Hypertension, uncontrolled: Plan: See above Plan: Heparin for DVT prevention based upon renal dysfunction Admission and Anticipated Discharge Date Admission Date: February 15, 2021 Subjective pt was seen in the pacu, she was slightly nauseated, she appeared pale but was without pain shortness of breath or chest pain. she did miss dialysis today, and will have in am, she reportedly still makes some urine so if there is a concern for volume overload can try diuretics Review of Systems Review of Systems: Mild distress and fatigue no headache, no visual changes no speech or swallowing issues no chest pain, pressure or palpitations no shortness of breath, cough or wheezes no abdominal pain, does have mild nausea without vomiting, diarrhea or constipation no dysuria, hematuria or frequency Some mild postoperative left hip pain no back pain, CVA tenderness or radicular pain no bruising, bleeding or rashes she does appear pale the visual inspection no focal signs of weakness or numbness or altered sensation no complaints of anxiety or depression.. Physical Exam Physical Exam: The patient appeared well nourished and normally developed. Vital signs as documented. Head exam is normocephalic atraumatic Neck is without JVD, thyromegaly, or carotid bruits. Lungs are clear to auscultation, no focal loss of breath sounds Cardiac exam, Rhythm is regular.. No murmurs, rubs or gallops. Abdominal exam reveals normal bowel sounds, soft non tender, no masses Extremities are nonedematous and both pedal pulses are present Neurologic exam is alert and oriented, no focal loss of strength or sensation Skin is without bruises or rashes Psychologically is without concerns for anxiety or depression Results & Data Results & Data ([facility]) Vital Signs (Past 12 Hours) Vital Signs Temp Pulse Pulse Pulse Resp BP Pulse Ox 02/16/21 11:35 97.9 F 73 18 172/63 H 96 02/16/21 07:00 98.2 F 57 L 18 174/71 H 98 02/16/21 03:00 98.4 F 55 L 20 147/60 H 94 02/16/21 02:00 57 L PG Care Time/CCT Total # of Minutes Spent Total Time Spent with Patient: Total time spent is greater than 50% in coordination of care (as documented) at patient's floor/unit and/or counseling patient: Coding Level of Care Code 44020 Subseq Hosp Care Lvl 2 Diagnoses Closed intertrochanteric fracture of left femur S72.142A Encounter type: initial encounter Fracture alignment: displaced End-stage renal disease on hemodialysis N18.6; Z99.2 Type 2 diabetes mellitus with insulin therapy E11.9; Z79.4 Depression F32.9 CAD (coronary artery disease) I25.10 Hypertension, uncontrolled I10 (1) Closed intertrochanteric fracture of left femur Encounter type: initial encounter Fracture alignment: displaced Qualified Code(s): S72.142A - Displaced intertrochanteric fracture of left femur, initial encounter for closed fracture
[2021-02-16] MEDS ORDERED: ceFAZolin 2000MG 2,000 MG/15 ML SYR IV ONE (12:27)
[2021-02-16] MEDS ORDERED: ceFAZolin 2,000 MG/15 ML IV PUSH IV ONE (12:29)
[2021-02-16] MEDS ORDERED: EPINEPHrine INJ 1 MG/ML AMP ONE (12:38)
[2021-02-16] MEDS ORDERED: BUPIVACAINE 0.25% 30 ML VIAL ONE (12:38)
[2021-02-16] MEDS ORDERED: NEOSTIGMINE METHYLSULFATE 1 MG/ML 10ML VIAL ONE (13:33)
[2021-02-16] MEDS ORDERED: GLYCOPYRROLATE 0.2 MG/ML VIAL ONE ×2 (13:33)
--- NOTE | 2021-02-16 14:24 | Operative Report ---
PG Post Operative Report Pre & Post Diagnosis Operation Date: 02/16/21 09:05 Pre-Op Diagnosis: Closed intertrochanteric fracture of left femur Post-Op Diagnosis: Closed intertrochanteric fracture of left femur I identified the patient and participated in the time-out.: Yes Procedure Operation Date: 02/16/21 09:05 Actual Procedures p intramedullary nail fixation of the left femur (Left) - Heriberto Ly DO Surgeon Heriberto Ly DO Cardiology Coordinator None Estimated Blood Loss 20 Findings Consistent with Post-Op Diagnosis Specimens None Complications none Disposition Disposition: Recovery Room Indications Sonam is a pleasant 80-year-old female who fell yesterday sustaining an intertrochanteric fracture of her left hip. She was admitted to [facility]. After discussions at bedside, she elected proceed with an intramedullary nail fixation of her left hip. Description of Procedure On February 16, 2021 Sonam was brought down from her hospital room to the preoperative holding area. The operative extremity was identified and signed. She was given a preoperative antibiotic. She was taken back to the operating room and laid on a fracture table in supine position. She was put under general anesthesia. The left leg was brought out to traction. Fluoroscopic images were used to ensure reduction of the fracture. The left hip was then prepped and draped in sterile fashion. A timeout was done. The patient and the operative extremity was properly identified. A longitudinal incision was made just superior to the greater trochanter. Dissection was taken down to the fascia. The tip of the greater trochanter was identified. A guidepin was placed in the tip of the greater trochanter and advanced down the femoral canal. Appropriate placement of the pain was checked on orthogonal fluoroscopic images. A 17 mm opening reamer was used to open the greater trochanter. A 12 mm Synthes short TFN nail was then impacted into place. Appropriate placement was checked on fluoroscopy. A small lateral incision was then made and a cannula was in advanced for the lag screw. A guidepin was placed at the center center position of the femoral head. The helical blade measured to be 105 mm. The lateral cortex was then drilled and the blade was drilled. The final helical blade was then impacted into place. The setscrew was then locked. A cannula was then advanced for the distal locking screw. A 4 mm drill was used and a 4 mm distal locking screw was then placed. The outrigger was then removed. Final fluoroscopic images showed anatomic alignment of the fracture and good placement of the hardware. The wounds were then irrigated. Surrounding soft tissue was injected with 30 cc of Marcaine with epi. The deep fascial layer was closed with #1 Vicryl. Skin was closed with 2-0 Vicryl and ventura. She was placed in soft dressings. She was then extubated and transferred to a hospital bed. She was taken to the post anesthesia care unit in stable condition. She tolerated the procedure well. I attest to the content of the Intraoperative Record and any orders documented therein. Any exceptions are noted below.
[2021-02-16] MEDS: amLODIPine BESYLATE 5 MG TAB PO SCH ×2 (14:27→21:59)
[2021-02-16] MEDS: ISOSORBIDE MONO EXTENDED REL 60 MG TABCR PO SCH (14:27)
--- NOTE | 2021-02-16 14:50 | Fluoroscopy Report ---
FL hip LT 2-3V HISTORY: 80 years-old Female ORIF LEFT SHORT TROCH NAIL acute intertrochanteric fracture of the left femur COMPARISON: Pelvis and hip radiographs 02/15/2021 TECHNIQUE: 2 spot fluoroscopic images of the left hip were obtained utilizing 52.6 seconds fluoroscop y time FINDINGS: Status post placement of an intratrochanteric nail with medullary freda fixating the acute intertrochan teric fracture. Satisfactory alignment. Postoperative soft tissue swelling with deep tissue air. IMPRESSION: Fluoroscopic assistance as above. ACT 112: Negative or not required by law. The above report was generated using voice recognition software. It may contain grammatical, syntax o r spelling errors. Electronically signed by: All Osullivan M.D. 02/16/2021 2:49 PM
[2021-02-16] MEDS ORDERED: ePHEDrine sulfate 50 MG/ML AMP IV PRN (15:00)
[2021-02-16] MEDS ORDERED: fentaNYL citrate 100 MCG/2 ML VIAL IV PRN (15:00)
[2021-02-16] MEDS ORDERED: ONDANSETRON INJ 2 MG/ML 2 ML VIAL IV PRN (15:00)
[2021-02-16] MEDS ORDERED: ATROPINE SULFATE 0.1 MG/ML 10ML SYR IV PRN (15:00)
--- NOTE | 2021-02-16 15:05 | Anesthesiology Progress Note ---
Date of Service February 16, 2021 Anesthesia Post Procedure Vital Signs Vital Signs: Temp Pulse Pulse Pulse Resp BP BP 02/16/21 15:00 69 14 02/16/21 14:50 70 14 02/16/21 14:40 70 16 02/16/21 14:34 37.0 C 76 16 02/16/21 13:47 50 L 02/16/21 12:17 37.2 C 61 18 02/16/21 11:35 36.6 C 73 18 02/16/21 07:00 36.8 C 57 L 18 02/16/21 03:00 36.9 C 55 L 20 02/16/21 02:00 57 L 02/15/21 23:17 36.7 C 55 L 18 02/15/21 20:51 36.7 C 72 59 L 20 02/15/21 20:15 02/15/21 20:00 67 18 02/15/21 19:30 62 14 02/15/21 19:00 61 14 02/15/21 18:30 60 15 02/15/21 18:00 58 L 19 159/103 H 02/15/21 17:47 58 L 18 186/65 H 02/15/21 17:30 57 L 16 02/15/21 17:00 54 L 14 176/70 H 02/15/21 16:30 59 L 21 177/73 H 02/15/21 16:00 57 L 18 02/15/21 15:30 57 L 15 02/15/21 15:23 36.5 C 59 L 17 202/66 H BP Pulse Ox Pulse Ox 02/16/21 15:00 169/61 H 94 02/16/21 14:50 157/52 H 94 02/16/21 14:40 163/52 H 96 02/16/21 14:34 181/77 H 96 02/16/21 13:47 02/16/21 12:17 169/53 H 100 02/16/21 11:35 172/63 H 96 02/16/21 07:00 174/71 H 98 02/16/21 03:00 147/60 H 94 02/16/21 02:00 02/15/21 23:17 184/63 H 95 02/15/21 20:51 171/67 H 95 95 02/15/21 20:15 159/81 H 02/15/21 20:00 171/70 H 99 02/15/21 19:30 99 02/15/21 19:00 90 02/15/21 18:30 92 02/15/21 18:00 92 02/15/21 17:47 94 02/15/21 17:30 92 02/15/21 17:00 93 02/15/21 16:30 93 02/15/21 16:00 94 02/15/21 15:30 94 02/15/21 15:23 99 Pain Intensity Left Hip: Pain Intensity: 4 Transfer of Care Handoff Completed per policy Notes Mental Status: alert / awake / arousable and participated in evaluation Patient Amnestic to Procedure: Yes Nausea / Vomiting: adequately controlled Pain: adequately controlled Airway Patency, RR, SpO2: stable & adequate BP & HR: stable & adequate Hydration State: stable & adequate Anesthetic Complications: no major complications apparent and Pt Satisfied with anesthetic care
[2021-02-16] MEDS ORDERED: PROMETHAZINE HCL INJ 25 MG/ML 1 ML VIAL ONE (15:37)
[2021-02-16] MEDS ORDERED: PROMETHAZINE HCL 12.5 MG in SODIUM CHLORIDE 0.9% 50 ML IV STA (15:46)
[2021-02-16] MEDS ORDERED: NALOXONE HCL 0.4 MG/1 ML VIAL/CARP IV PRN (16:14)
[2021-02-16] MEDS ORDERED: Nursing to Pharmacy Communication SCH (17:30)
--- NOTE | 2021-02-16 17:33 | Electrocardiogram Report ---
Test Reason : Blood Pressure : / mmHG Vent. Rate : 060 BPM Atrial Rate : 060 BPM P-R Int : 164 ms QRS Dur : 104 ms QT Int : 440 ms P-R-T Axes : 061 -02 036 degrees QTc Int : 440 ms Poor data quality, interpretation may be adversely affected Normal sinus rhythm Normal ECG When compared with ECG of 03-JAN-2021 05:50, Nonspecific T wave abnormality now evident in Lateral leads Confirmed by Aamir Travis ([id number]) on 02/16/2021 5:33:01 PM Referred By: REFERRED SELF Confirmed By:Juan Travis
[2021-02-16] MEDS: ceFAZolin 2000MG 2,000 MG/15 ML SYR IV SCH (21:59)
[2021-02-16] MEDS: DOCUSATE SODIUM/SENNA 50/8.6MG TAB PO SCH (22:00)
[2021-02-16] MEDS: INSULIN GLARGINE SOLOSTAR 100 UNITS/ML 3 ML PEN SQ SCH (22:02)
[2021-02-17] MEDS: ceFAZolin 2000MG 2,000 MG/15 ML SYR IV SCH ×2 (05:58→14:22)
[2021-02-17] MEDS: CEROVITE ADV FORMULA TAB PO SCH (08:32)
[2021-02-17] MEDS: HEPARIN SOD 5,000 UNIT/0.5 ML VIAL SQ SCH ×2 (08:33→21:50)
[2021-02-17] MEDS: ASCORBIC ACID 500 MG TAB PO SCH (08:33)
[2021-02-17] MEDS: FAMOTIDINE 20 MG in SYRINGE 3 ML IV SCH ×2 (08:33→21:54)
[2021-02-17] MEDS: VENLAFAXINE HCL XR 37.5 MG CAPXR PO SCH (08:33)
[2021-02-17] MEDS: CALCIUM 600MG + VIT D 400 IU TAB PO SCH (08:33)
[2021-02-17] MEDS: VENLAFAXINE HCL XR 150 MG CAPXR PO SCH (08:33)
[2021-02-17] MEDS: ATORVASTATIN 40 MG TAB PO SCH (08:34)
[2021-02-17] MEDS: CHOLECALCIFEROL 1,000 UNITS 25 MCG TAB PO SCH ×2 (08:34→21:49)
[2021-02-17] MEDS: INSULIN ASPART 100 UNITS/ML 3 ML PEN SC SCH ×4 (08:36→21:52)
--- NOTE | 2021-02-17 08:42 | Orthopedic Progress Note ---
Date of Service February 17, 2021 Assessment & Plan (1) Closed intertrochanteric fracture of left femur: Overall she is doing as well as expected. She is having much pain in the left hip. She can be seen by therapy today for ambulation and range of motion exercises. She is currently on heparin for DVT prophylaxis and is being managed by the hospitalist team. She is orthopedically stable for discharge when medically ready. The dressings can be changed tomorrow. Full orthopedic discharge instructions were placed in the discharge summary. Jason Masters was seen and examined at bedside this morning. Overall she is doing fairly well. She not having any pain in her left hip. She was able to get some sleep last night. She has not been up and ambulating on it yet. She has no complaints. Review of Systems All systems reviewed & are unremarkable except as noted in HPI & below. Physical Exam On physical examination of the left hip, the dressings are clean and dry. She has active dorsiflexion plantarflexion of her left ankle. Sensation is intact.. Results & Data Results & Data Laboratory Results . Diagnostic Findings . PG Care Time/CCT Total # of Minutes Spent Total Time Spent with Patient: Total time spent is greater than 50% in coordination of care (as documented) at patient's floor/unit and/or counseling patient: Coding Level of Care Code 72452 Post Operative Follow-Up Diagnoses Closed intertrochanteric fracture of left femur S72.142A Encounter type: initial encounter Fracture alignment: displaced (1) Closed intertrochanteric fracture of left femur Encounter type: initial encounter Fracture alignment: displaced Qualified Code(s): S72.142A - Displaced intertrochanteric fracture of left femur, initial encounter for closed fracture
[2021-02-17] MEDS ORDERED: ENOXAPARIN INJ 40 MG/0.4 ML SYR SQ SCH (09:00)
[2021-02-17] MEDS ORDERED: INSULIN ASPART 100 UNITS/ML 3 ML PEN SQ SCH (09:00)
[2021-02-17 09:23] LABS: Basophils # (auto) 0.02 K/uL (0-0.2); Basophils % (auto) 0.2 %; Eosinophils # (auto) 0.12 K/uL (0-0.5); Eosinophils % (auto) 1.3 %; Hematocrit (blood only) 27.2 % (37-47); Hemoglobin 8.4 g/dL (12.0-16.0); Immature Granulocytes # (auto) 0.03 K/uL (0.00-0.02); Immature Granulocytes % (auto) 0.3 %; Lymphocytes # (auto) 1.04 K/uL (1.2-3.4); Lymphocytes % (auto) 11.2 %; Mean Corpuscular Hemoglobin 27.8 pg (25-34); Mean Corpuscular Hgb Conc 30.9 g/dL (32-36); Mean Corpuscular Volume 90.1 fL (80-100); Mean Platelet Volume 9.6 fL (7.4-10.4); Monocytes # (auto) 0.83 K/uL (0.11-0.59); Neutrophils # (auto) 7.21 K/uL (1.4-6.5); Platelet Count 195 K/uL (130-400); RDW Coefficient of Variation 16.7 % (11.5-14.5); Red Blood Count 3.02 M/uL (4.2-5.4); White Blood Count 9.25 K/uL (4.8-10.8)
[2021-02-17 09:51] LABS: BUN Creatinine Ratio 8.1 (10-20); Calcium 9.5 mg/dl (8.5-10.1); Creatinine Clr Calc Pharmacy 10.1 ml/min; Est GFR (African American) 8.8 ml/min; Est GFR (Non-African American) 7.6 ml/min; Potassium 6.3 mmol/L (3.5-5.1)
--- NOTE | 2021-02-17 10:19 | Nephrology Progress Note ---
Date of Service February 17, 2021 Assessment & Plan (1) End-stage renal disease on hemodialysis: Plan: * ESRD due to DKD * Dialyzes MWF at [facility]: 4 hours, 180 optiflux Qb 300 with 3 K bath. EDW has been 84.5 kg. Typical UF 1-2 L. * Current dialysis access is R IJ THC. AVF was created 11/08/[address] Gregg * Will schedule heparin free HD today. Patient missed Friday treatment due to surgery (2) Closed intertrochanteric fracture of left femur: Plan: * POD #1 intramedullary nail fixation of L femur (3) Anemia: Plan: * Will check iron stores * Will provide 10,000 units epogen w/ HD today (4) Hypertension: Plan: * BP elevated this am. Anticipate improvement following UF today * Continue home medications Admission and Anticipated Discharge Date Admission Date: February 15, 2021 Subjective Ms. Bolivar was evaluated in her hospital room this morning. She c/o mild incisional discomfort but denies fever, angina, dyspnea or uremic symptoms. Review of Systems Constitutional: no fever Eyes: no problem reported Ear, Nose, Mouth, Throat: no problem reported Respiratory: no cough and no dyspnea Cardiovascular: no chest pain, no palpitations and no edema Gastrointestinal: no abdominal pain, no nausea, no vomiting and no diarrhea/loose stools Genitourinary: no dysuria and no hematuria Musculoskeletal: no back pain Integumentary: no rash Neurologic: no confusion Physical Exam Constitutional: not in distress Eyes: PERRL, conjunctivae normal, anicteric sclerae ENMT: external ear and nose normal, oropharynx normal Neck: trachea midline, no thyromegaly IJ THC with clean dry dressing in place Respiratory: normal respiratory effort, lungs clear to auscultation Cardiovascular: Rate/Rhythm: regular rate and regular rhythm Extremities: no edema Gastrointestinal (Abdomen): normal bowel sounds, soft, nontender, no hepatosplenomegaly Musculoskeletal: Extremities: no cyanosis Skin: no rashes, warm and dry Neurologic: awake; not confused Results & Data ([facility]) Vital Signs (Past 12 Hours) Vital Signs Temp Pulse Pulse Pulse Resp BP Pulse Ox 02/17/21 08:00 37.4 C 87 18 198/63 H 92 02/17/21 06:20 62 10/09/21 04:00 36.9 C 63 20 120/49 L 97 02/16/21 23:00 36.8 C 79 20 190/64 H 97 02/16/21 22:25 66 Laboratory Results Laboratory Tests 02/17/21 02/17/21 09:04 09:04 WBC 9.25 Hgb 8.4 L Hct 27.2 L Plt Count 195 Sodium 135 L Potassium 6.3 H* D Chloride 103 Carbon Dioxide 28 BUN 41 H D Creatinine 5.08 H* D Glucose 169 H PG Care Time/CCT Total # of Minutes Spent Total Time Spent with Patient: Total time spent is greater than 50% in coordination of care (as documented) at patient's floor/unit and/or counseling patient: Coding Level of Care Code 87983 Subseq Hosp Care Lvl 3 Diagnoses End-stage renal disease on hemodialysis N18.6; Z99.2 Closed intertrochanteric fracture of left femur S72.142A Encounter type: initial encounter Fracture alignment: displaced Anemia N18.6; D63.1; Z99.2 Anemia type: due to chronic kidney disease Chronic kidney disease stage: on chronic dialysis Hypertension I10 Hypertension type: unspecified (1) Anemia Anemia type: due to chronic kidney disease Chronic kidney disease stage: on chronic dialysis Qualified Code(s): N18.6 - End stage renal disease; D63.1 - Anemia in chronic kidney disease; Z99.2 - Dependence on renal dialysis (2) Hypertension Hypertension type: unspecified Qualified Code(s): I10 - Essential (primary) hypertension (3) Closed intertrochanteric fracture of left femur Encounter type: initial encounter Fracture alignment: displaced Qualified Code(s): S72.142A - Displaced intertrochanteric fracture of left femur, initial encounter for closed fracture
[2021-02-17] MEDS ORDERED: IRON SUCROSE 100 MG in SYRINGE 0 ML IV SCH (11:30)
[2021-02-17] MEDS ORDERED: EPOETIN ALFA 10,000 UNITS/ML VIAL IV SCH (12:00)
[2021-02-17] MEDS: amLODIPine BESYLATE 5 MG TAB PO SCH ×2 (14:13→21:48)
[2021-02-17] MEDS: ISOSORBIDE MONO EXTENDED REL 60 MG TABCR PO SCH (14:14)
[2021-02-17] MEDS ORDERED: PHARMACY GLYCEMIC MGMT CONSULT PRN (17:25)
--- NOTE | 2021-02-17 17:25 | Hospitalist Progress Note ---
Date of Service February 17, 2021 Assessment & Plan (1) Closed intertrochanteric fracture of left femur: Plan: Left femur nailing 02/16/2021 Dr. Ly Geriatric hip fracture protocol order set Age-related osteoporosis with current fracture of left femur Navdeep & Radha for pain (2) End-stage renal disease on hemodialysis: Plan: Undergoes dialysis, Friday, Friday and Friday did miss her dialysis on Friday 02/16 will of dialysis 02/[address] Spangler (3) Type 2 diabetes mellitus with insulin therapy: Plan: Decrease Basaglar from 10 to [address] on Accu-Cheks before meals and at bedtime with NovoLog coverage per scale Glycemic management consult (4) Depression: Plan: Continue venlafaxine (5) CAD (coronary artery disease): Plan: CAD/hypertension- Continue amlodipine and isosorbide mononitrate (6) Hypertension, uncontrolled: Plan: See above Plan: Heparin for DVT prevention based upon renal dysfunction Admission and Anticipated Discharge Date Admission Date: February 15, 2021 Subjective Patient seen after dialysis. Her pain control was well. I removed 2 L during dialysis. She did for myself and the nurse of her intention to go home and not go to rehab. Review of Systems Review of Systems: Mild distress and fatigue no headache, no visual changes no speech or swallowing issues no chest pain, pressure or palpitations no shortness of breath, cough or wheezes no abdominal pain, does have mild nausea without vomiting, diarrhea or constipation no dysuria, hematuria or frequency Currently denies postoperative left hip pain no back pain, CVA tenderness or radicular pain no bruising, bleeding or rashes she does appear pale the visual inspection no focal signs of weakness or numbness or altered sensation no complaints of anxiety or depression.. Physical Exam Physical Exam: The patient appeared well nourished and normally developed. Vital signs as documented. Head exam is normocephalic atraumatic Neck is without JVD, thyromegaly, or carotid bruits. Lungs are clear to auscultation, no focal loss of breath sounds Cardiac exam, Rhythm is regular.. No murmurs, rubs or gallops. Abdominal exam reveals normal bowel sounds, soft non tender, no masses Extremities are nonedematous and both pedal pulses are present Neurologic exam is alert and oriented, no focal loss of sensation Psychologically is without concerns for anxiety or depression Results & Data Results & Data ([facility]) Vital Signs (Past 12 Hours) Vital Signs Temp Pulse Pulse Pulse Resp BP BP 02/17/21 14:14 99.3 F 86 163/73 H 02/17/21 13:40 83 139/56 L 02/17/21 13:20 89 140/60 02/17/21 13:00 84 107/72 02/17/21 12:40 84 136/60 02/17/21 12:20 86 147/67 H 02/17/21 12:00 62 155/105 H 02/17/21 11:40 86 148/60 H 02/17/21 11:20 73 132/59 L 02/17/21 11:00 68 142/59 H 02/17/21 10:40 69 152/77 H 02/17/21 10:20 68 127/57 L 02/17/21 10:00 70 133/57 L 02/17/21 09:37 62 172/68 H 02/17/21 09:30 99.3 F 65 02/17/21 08:00 99.3 F 87 18 198/63 H 02/17/21 06:20 62 Pulse Ox 02/17/21 14:14 02/17/21 13:40 02/17/21 13:20 02/17/21 13:00 02/17/21 12:40 02/17/21 12:20 02/17/21 12:00 02/17/21 11:40 02/17/21 11:20 02/17/21 11:00 02/17/21 10:40 02/17/21 10:20 02/17/21 10:00 02/17/21 09:37 02/17/21 09:30 02/17/21 08:00 92 02/17/21 06:20 PG Care Time/CCT Total # of Minutes Spent Total Time Spent with Patient: Total time spent is greater than 50% in coordination of care (as documented) at patient's floor/unit and/or counseling patient: Coding Level of Care Code 21724 Subseq Hosp Care Lvl 2 Diagnoses Closed intertrochanteric fracture of left femur S72.142A Encounter type: initial encounter Fracture alignment: displaced End-stage renal disease on hemodialysis N18.6; Z99.2 Type 2 diabetes mellitus with insulin therapy E11.9; Z79.4 Depression F32.9 CAD (coronary artery disease) I25.10 Hypertension, uncontrolled I10 (1) Closed intertrochanteric fracture of left femur Encounter type: initial encounter Fracture alignment: displaced Qualified Code(s): S72.142A - Displaced intertrochanteric fracture of left femur, initial encounter for closed fracture
--- NOTE | 2021-02-17 20:10 | Pharmacy Report ---
Pharmacy Glycemic Short Note 2 - Date of Service February 17, 2021 - Glycemic Short BSG Results (Last 24 hours): 02/16/21 02/17/21 02/17/21 21:45 03:19 06:08 Glucose POC Glucose 260 H 227 H 239 H 02/17/21 02/17/21 02/17/21 07:32 09:04 14:12 Glucose 169 H POC Glucose 222 H 153 H 02/17/21 16:46 Glucose POC Glucose 198 H OUTPATIENT ANTIDIABETIC REGIMEN: * Basaglar 10 units SQ qPM * Novolog SQ TID (up to 30 units/day) * A1c = 6.5% ASSESSMENT: * Sonam is a T2DM with h/o ESRD on HD who presented with closed intertrochanteric fracture of left femur, s/p surgery on 02/16/21 * Basal insulin dose reduced by 50% on admission. Patient tolerated an oral diet with elevated fasting BSG, therefore I will increase Lantus. * Continue current Novolog CF and CR PLAN FOR INPATIENT GLYCEMIC CONTROL: * Hold outpatient oral diabetes medications * Basal insulin * Lantus 10 units SQ qPM * Bolus insulin * NovoLog per scale ACHS or Q6hrs while NPO * Goal Range: Low 120 mg/dL - High 160 mg/dL * Correction Factor: 25 mg/dL/unit * Nutritional / Prandial insulin per carb ratio of 1 unit per 10 grams CHO consumed PLAN FOR DISCHARGE: * Patient's A1c = 6.5% today. * However, this result is likely somewhat unreliable in ESRD patients d/t interactions between the A1c analyzing technique and high levels of urea in ESRD, reduced RBC life span, iron deficiency anemia, and EPO administration. HbA1c > 7.5% in ESRD patient may overestimate the extent of hyperglycemia in ESRD patients. * Recommend frequent BSG monitoring to guide insulin dose adjustment as outpatient
[2021-02-17] MEDS: DOCUSATE SODIUM/SENNA 50/8.6MG TAB PO SCH (21:49)
[2021-02-17] MEDS: INSULIN GLARGINE SOLOSTAR 100 UNITS/ML 3 ML PEN SQ SCH (21:52)
[2021-02-18] MEDS: amLODIPine BESYLATE 5 MG TAB PO SCH ×2 (09:24→21:01)
[2021-02-18] MEDS: CHOLECALCIFEROL 1,000 UNITS 25 MCG TAB PO SCH ×2 (09:24→21:01)
[2021-02-18] MEDS: ISOSORBIDE MONO EXTENDED REL 60 MG TABCR PO SCH (09:24)
[2021-02-18] MEDS: ASCORBIC ACID 500 MG TAB PO SCH ×2 (09:24→21:03)
[2021-02-18] MEDS: FAMOTIDINE 20 MG in SYRINGE 3 ML IV SCH ×2 (09:24→21:11)
[2021-02-18] MEDS: CEROVITE ADV FORMULA TAB PO SCH (09:25)
[2021-02-18] MEDS: VENLAFAXINE HCL XR 150 MG CAPXR PO SCH (09:25)
[2021-02-18] MEDS: CALCIUM 600MG + VIT D 400 IU TAB PO SCH (09:25)
[2021-02-18] MEDS: HEPARIN SOD 5,000 UNIT/0.5 ML VIAL SQ SCH ×2 (09:25→21:06)
[2021-02-18] MEDS: ATORVASTATIN 40 MG TAB PO SCH (09:25)
[2021-02-18] MEDS: VENLAFAXINE HCL XR 37.5 MG CAPXR PO SCH (09:26)
[2021-02-18] MEDS: INSULIN ASPART 100 UNITS/ML 3 ML PEN SC SCH ×4 (09:26→21:04)
[2021-02-18 09:38] LABS: BUN Creatinine Ratio 7.7 (10-20); Calcium 9.5 mg/dl (8.5-10.1); Est GFR (African American) 13.1 ml/min; Est GFR (Non-African American) 11.3 ml/min; Potassium 4.7 mmol/L (3.5-5.1)
[2021-02-18 09:59] LABS: Ferritin 352.7 ng/ml (8-388)
--- NOTE | 2021-02-18 14:59 | Orthopedic Progress Note ---
Date of Service February 18, 2021 Assessment & Plan (1) Closed intertrochanteric fracture of left femur: Overall she is doing about as well as expected. She is not having too much pain in the left hip but she is having trouble standing and ambulating with physical therapy. She understands will take some time. She is currently on heparin for DVT prophylaxis. She will likely require about 4 weeks of DVT prophylaxis after discharge. She is orthopedically stable for discharge. She can follow-up in my office in 2 weeks for staple removal. Full orthopedic discharge instructions were placed in the discharge summary. Orthopedics will sign off. If you have any further questions please feel free to contact me personally at [phone]. Thank you Subjective Sonam was seen and examined at bedside today. Overall she is doing fairly well. She is having too much pain in the left hip. She did not ambulate well with physical therapy. She had trouble standing. All of this is to be expected. She is in good spirits. She has no complaints.. Review of Systems All systems reviewed & are unremarkable except as noted in HPI & below. Physical Exam On physical examination of the left hip, the dressings have been removed and the ventura are open to air. The incisions are clean and dry. Her leg lengths are equal.. Constitutional WD/WN, vitals as above Eyes PERRL, conjunctivae normal, anicteric sclerae ENMT external ear and nose normal, oropharynx normal Neck trachea midline, no thyromegaly Respiratory normal respiratory effort Cardiovascular RRR, no murmur, no edema Gastrointestinal (Abdomen) normal bowel sounds, soft, nontender, no hepatosplenomegaly Psychiatric A+Ox3, euthymic affect Results & Data Results & Data Laboratory Results . Diagnostic Findings . PG Care Time/CCT Total # of Minutes Spent Total Time Spent with Patient: Total time spent is greater than 50% in coordination of care (as documented) at patient's floor/unit and/or counseling patient: Coding Level of Care Code 92575 Post Operative Follow-Up Diagnoses Closed intertrochanteric fracture of left femur S72.142A Encounter type: initial encounter Fracture alignment: displaced (1) Closed intertrochanteric fracture of left femur Encounter type: initial encounter Fracture alignment: displaced Qualified Code(s): S72.142A - Displaced intertrochanteric fracture of left femur, initial encounter for closed fracture
--- NOTE | 2021-02-18 18:11 | Hospitalist Progress Note ---
Date of Service February 18, 2021 Assessment & Plan (1) Closed intertrochanteric fracture of left femur: Plan: Left femur nailing 02/16/2021 Dr. Ly Geriatric hip fracture protocol order set Age-related osteoporosis with current fracture of left femur Jimenez for pain PT is recommending inpatient rehab stay (2) End-stage renal disease on hemodialysis: Plan: Undergoes dialysis, Friday, Friday and Friday last dialysis session was Saturday 02/[address] Spangler (3) Type 2 diabetes mellitus with insulin therapy: Plan: Decrease Basaglar from 10 to [address] on Accu-Cheks before meals and at bedtime with NovoLog coverage per scale Glycemic management consult (4) Depression: Plan: Continue venlafaxine (5) CAD (coronary artery disease): Plan: CAD/hypertension- Continue amlodipine and isosorbide mononitrate (6) Hypertension, uncontrolled: Plan: See above Plan: Heparin for DVT prevention based upon renal dysfunction Admission and Anticipated Discharge Date Admission Date: February 15, 2021 Subjective Patient is doing well. She however did not do very well with physical therapy and will require rehab post discharge. Otherwise she appears but would be typical for her volume status on the day prior to dialysis. Dialysis is scheduled for Friday. Her pain is well controlled Review of Systems Review of Systems: Mild distress and fatigue no headache, no visual changes no speech or swallowing issues no chest pain, pressure or palpitations no shortness of breath, cough or wheezes no abdominal pain, does have mild nausea without vomiting, diarrhea or constipation no dysuria, hematuria or frequency Currently denies postoperative left hip pain no back pain, CVA tenderness or radicular pain no bruising, bleeding or rashes she does appear pale the visual inspection no focal signs of weakness or numbness or altered sensation no complaints of anxiety or depression.. Physical Exam Physical Exam: The patient appeared well nourished and normally developed. Vital signs as documented. Head exam is normocephalic atraumatic Neck is with subtle JVD, thyromegaly, or carotid bruits. Lungs are clear to auscultation, decreased at the bases, no focal loss of breath sounds Cardiac exam, Rhythm is regular.. Systolic ejection murmur Abdominal exam reveals normal bowel sounds, soft non tender, no masses Extremities are nonedematous and both pedal pulses are present Neurologic exam is alert and oriented, no focal loss of sensation Psychologically is without concerns for anxiety or depression Results & Data Results & Data ([facility]) Vital Signs (Past 12 Hours) Vital Signs Temp Pulse Pulse Resp BP Pulse Ox Pulse Ox 02/18/21 15:18 98.4 F 84 18 132/65 97 02/18/21 13:59 86 L 02/18/21 07:30 98.4 F 88 18 181/72 H 99 PG Care Time/CCT Total # of Minutes Spent Total Time Spent with Patient: Total time spent is greater than 50% in coordination of care (as documented) at patient's floor/unit and/or counseling patient: Coding Level of Care Code 54122 Subseq Hosp Care Lvl 2 Diagnoses Closed intertrochanteric fracture of left femur S72.142A Encounter type: initial encounter Fracture alignment: displaced End-stage renal disease on hemodialysis N18.6; Z99.2 Type 2 diabetes mellitus with insulin therapy E11.9; Z79.4 Depression F32.9 CAD (coronary artery disease) I25.10 Hypertension, uncontrolled I10 (1) Closed intertrochanteric fracture of left femur Encounter type: initial encounter Fracture alignment: displaced Qualified Code(s): S72.142A - Displaced intertrochanteric fracture of left femur, initial encounter for closed fracture
[2021-02-18] MEDS: INSULIN GLARGINE SOLOSTAR 100 UNITS/ML 3 ML PEN SQ SCH (21:03)
[2021-02-18] MEDS: DOCUSATE SODIUM/SENNA 50/8.6MG TAB PO SCH (21:10)
[2021-02-19] MEDS ORDERED: SODIUM CHLORIDE 0.9% 250 ML IV PRN (07:58)
[2021-02-19 08:09] LABS: Hematocrit (blood only) 23.8 % (37-47); Hemoglobin 7.3 g/dL (12.0-16.0); Mean Corpuscular Hemoglobin 27.4 pg (25-34); Mean Corpuscular Hgb Conc 30.7 g/dL (32-36); Mean Corpuscular Volume 89.5 fL (80-100); Mean Platelet Volume 9.4 fL (7.4-10.4); Platelet Count 194 K/uL (130-400); RDW Coefficient of Variation 16.6 % (11.5-14.5); RDW Standard Deviation 54.7 fL (36.4-46.3); Red Blood Count 2.66 M/uL (4.2-5.4); White Blood Count 7.99 K/uL (4.8-10.8)
[2021-02-19 08:29] LABS: BUN Creatinine Ratio 9.6 (10-20); Calcium 9.6 mg/dl (8.5-10.1); Creatinine Clr Calc Pharmacy 12.5 ml/min; Est GFR (African American) 11.5 ml/min; Est GFR (Non-African American) 9.9 ml/min; Potassium 4.7 mmol/L (3.5-5.1)
[2021-02-19 08:33] LABS: Ferritin 342.7 ng/ml (8-388)
[2021-02-19] MEDS: INSULIN ASPART 100 UNITS/ML 3 ML PEN SC SCH ×4 (09:27→21:01)
[2021-02-19] MEDS: VENLAFAXINE HCL XR 150 MG CAPXR PO SCH (09:30)
[2021-02-19] MEDS: CHOLECALCIFEROL 1,000 UNITS 25 MCG TAB PO SCH ×2 (09:30→21:01)
[2021-02-19] MEDS: CALCIUM 600MG + VIT D 400 IU TAB PO SCH (09:30)
[2021-02-19] MEDS: CEROVITE ADV FORMULA TAB PO SCH (09:30)
[2021-02-19] MEDS: VENLAFAXINE HCL XR 37.5 MG CAPXR PO SCH (09:31)
[2021-02-19] MEDS: ISOSORBIDE MONO EXTENDED REL 60 MG TABCR PO SCH (09:31)
[2021-02-19] MEDS: ATORVASTATIN 40 MG TAB PO SCH (09:31)
[2021-02-19] MEDS: amLODIPine BESYLATE 5 MG TAB PO SCH ×2 (09:32→21:01)
[2021-02-19] MEDS: HEPARIN SOD 5,000 UNIT/0.5 ML VIAL SQ SCH ×2 (09:33→21:01)
[2021-02-19 09:52] LABS: Hepatitis B Surface Ab Quant < 3.10 mIU/mL (>or=10mIU/mL Immune); Hepatitis B Surface Antibody Non-Immune
[2021-02-19 10:03] LABS: Hepatitis B Surf Ag Rflx Conf Neg (Neg)
--- NOTE | 2021-02-19 10:28 | Nephrology Progress Note ---
Date of Service February 19, 2021 Assessment & Plan (1) End-stage renal disease on hemodialysis: Plan: * ESRD due to DKD * Dialyzes MWF at [facility]: 4 hours, 180 optiflux Qb 300 with 3 K bath. EDW has been 84.5 kg. Typical UF 1-2 L. * Current dialysis access is R IJ [facility]. AVF was created 11/08/[address] Gregg * Last HD was Friday. No complications. 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 Orders have been placed in EMR and H D RN notified (2) Closed intertrochanteric fracture of left femur: Plan: * POD #3 intramedullary nail fixation of L femur (3) Anemia: Plan: * Iron saturation 9%, Ferritin 320 * Primary service has ordered 1 U PRBC * Will provide EMELINA w/ HD tomorrow (4) Hypertension: Plan: * BP elevated this am. Anticipate improvement following UF today * Continue home medications Admission and Anticipated Discharge Date Admission Date: February 15, 2021 Subjective Ms. Bolivar was evaluated in her hospital room this morning. She c/o mild incisional discomfort but denies fever, angina, dyspnea or uremic symptoms. She is depressed about being in the hospital Review of Systems Constitutional: no fever Eyes: no problem reported Ear, Nose, Mouth, Throat: no problem reported Respiratory: no cough and no dyspnea Cardiovascular: no chest pain, no palpitations and no edema Gastrointestinal: no abdominal pain, no nausea, no vomiting and no diarrhea/loose stools Genitourinary: no dysuria and no hematuria Musculoskeletal: no back pain Integumentary: no rash Neurologic: no confusion Physical Exam Constitutional: not in distress Eyes: PERRL, conjunctivae normal, anicteric sclerae ENMT: external ear and nose normal, oropharynx normal Neck: trachea midline, no thyromegaly Respiratory: normal respiratory effort, lungs clear to auscultation Cardiovascular: Rate/Rhythm: regular rate and regular rhythm Extremities: no edema Gastrointestinal (Abdomen): normal bowel sounds, soft, nontender, no hepatosplenomegaly Musculoskeletal: Extremities: no cyanosis Skin: no rashes, warm and dry Neurologic: awake; not confused Results & Data ([facility]) Vital Signs (Past 12 Hours) Vital Signs Temp Pulse Pulse Resp BP BP Pulse Ox 02/19/21 10:10 36.9 C 87 18 176/69 H 98 02/19/21 09:44 36.9 C 87 18 166/71 H 97 02/19/21 09:24 36.8 C 88 18 179/69 H 96 02/19/21 09:07 37.0 C 93 H 18 185/72 H 97 02/19/21 07:24 36.8 C 86 16 174/61 H 94 02/18/21 23:45 36.8 C 92 H 18 145/63 H 92 Laboratory Results Laboratory Tests 02/19/21 02/19/21 07:40 07:40 WBC 7.99 Hgb 7.3 L Hct 23.8 L Plt Count 194 Sodium 137 Potassium 4.7 Chloride 105 Carbon Dioxide 26 BUN 39 H Creatinine 4.07 H D Glucose 169 H Calcium 9.6 PG Care Time/CCT Total # of Minutes Spent Total Time Spent with Patient: Total time spent is greater than 50% in coordination of care (as documented) at patient's floor/unit and/or counseling patient: Coding Level of Care Code [address] [facility] 3 Diagnoses End-stage renal disease on hemodialysis N18.6; Z99.2 Closed intertrochanteric fracture of left femur S72.142A Encounter type: initial encounter Fracture alignment: displaced Anemia N18.6; D63.1; Z99.2 Anemia type: due to chronic kidney disease Chronic kidney disease stage: on chronic dialysis Hypertension I10 Hypertension type: unspecified (1) Closed intertrochanteric fracture of left femur Encounter type: initial encounter Fracture alignment: displaced Qualified Code(s): S72.142A - Displaced intertrochanteric fracture of left femur, initial encounter for closed fracture (2) Anemia Anemia type: due to chronic kidney disease Chronic kidney disease stage: on chronic dialysis Qualified Code(s): N18.6 - End stage renal disease; D63.1 - Anemia in chronic kidney disease; Z99.2 - Dependence on renal dialysis (3) Hypertension Hypertension type: unspecified Qualified Code(s): I10 - Essential (primary) hypertension
--- NOTE | 2021-02-19 10:37 | Hospitalist Progress Note ---
Date of Service February 19, 2021 Assessment & Plan (1) Closed intertrochanteric fracture of left femur: Plan: Left femur nailing 02/16/2021 Dr. Ly Geriatric hip fracture protocol order set Age-related osteoporosis with current fracture of left femur Navdeep & Radha for pain PT is recommending inpatient rehab stay (2) Acute blood loss anemia: Plan: Hgb stable 7.3 from yesterday but given significant fatigue and CKD recommend 1 unit packed RBCs. No sign, symptom of GI blood loss but will get fecal occult blood as she has been on famotidine and unclear if she needs to continue on PPI. (3) End-stage renal disease on hemodialysis: Plan: Undergoes dialysis, Friday, Friday and Friday last dialysis session was Saturday 02/[address] Spangler (4) Type 2 diabetes mellitus with insulin therapy: Plan: Appreciate pharmacy glycemic management (5) Depression: Plan: Continue venlafaxine (6) CAD (coronary artery disease): Plan: CAD/hypertension- Continue amlodipine and isosorbide mononitrate (7) Hypertension, uncontrolled: Plan: See above Plan: Heparin for DVT prevention based upon renal dysfunction Admission and Anticipated Discharge Date Admission Date: February 15, 2021 Subjective Feeling fatigued. No marroquin catheter in place. No dizziness, chest pain or shortness of breath with current anemia. No melena or bright red blood in stool. Review of Systems Review of Systems: All systems reviewed & are unremarkable except as noted in HPI & below Physical Exam Constitutional: WD/WN, vitals as above Respiratory: normal respiratory effort, lungs clear to auscultation Cardiovascular: RRR, no murmur, no edema Gastrointestinal (Abdomen): normal bowel sounds, soft, nontender, no hepatosplenomegaly Skin: no rashes, warm and dry Neurologic: moves all extremities and awake; no focal motor deficits (no lateralizing deficit) and not confused Psychiatric: A+Ox3, euthymic affect Results & Data Results & Data ([facility]) Vital Signs (Past 12 Hours) Vital Signs Temp Pulse Pulse Resp BP BP Pulse Ox 02/19/21 10:10 36.9 C 87 18 176/69 H 98 02/19/21 09:44 36.9 C 87 18 166/71 H 97 02/19/21 09:24 36.8 C 88 18 179/69 H 96 02/19/21 09:07 37.0 C 93 H 18 185/72 H 97 02/19/21 07:24 36.8 C 86 16 174/61 H 94 02/18/21 23:45 36.8 C 92 H 18 145/63 H 92 PG Care Time/CCT Total # of Minutes Spent Total Time Spent with Patient: Total time spent is greater than 50% in coordination of care (as documented) at patient's floor/unit and/or counseling patient: Coding Level of Care Code 57332 Subseq Hosp Care Lvl 2 Diagnoses Closed intertrochanteric fracture of left femur S72.142A Encounter type: initial encounter Fracture alignment: displaced End-stage renal disease on hemodialysis N18.6; Z99.2 Type 2 diabetes mellitus with insulin therapy E11.9; Z79.4 Depression F32.9 CAD (coronary artery disease) I25.10 Hypertension, uncontrolled I10 Acute blood loss anemia D62 (1) Closed intertrochanteric fracture of left femur Encounter type: initial encounter Fracture alignment: displaced Qualified Code(s): S72.142A - Displaced intertrochanteric fracture of left femur, initial encounter for closed fracture
[2021-02-19] MEDS: FAMOTIDINE 20 MG in SYRINGE 3 ML IV SCH (10:46)
[2021-02-19] MEDS: INSULIN GLARGINE SOLOSTAR 100 UNITS/ML 3 ML PEN SQ SCH (21:01)
[2021-02-19] MEDS: DOCUSATE SODIUM/SENNA 50/8.6MG TAB PO SCH (21:03)
[2021-02-20 06:52] LABS: Basophils # (auto) 0.03 K/uL (0-0.2); Basophils % (auto) 0.4 %; Eosinophils # (auto) 0.72 K/uL (0-0.5); Eosinophils % (auto) 8.8 %; Hematocrit (blood only) 26.6 % (37-47); Hemoglobin 8.4 g/dL (12.0-16.0); Immature Granulocytes # (auto) 0.08 K/uL (0.00-0.02); Lymphocytes # (auto) 1.24 K/uL (1.2-3.4); Lymphocytes % (auto) 15.1 %; Mean Corpuscular Hemoglobin 28.3 pg (25-34); Mean Corpuscular Hgb Conc 31.6 g/dL (32-36); Mean Corpuscular Volume 89.6 fL (80-100); Mean Platelet Volume 9.2 fL (7.4-10.4); Monocytes # (auto) 1.18 K/uL (0.11-0.59); Monocytes % (auto) 14.4 %; Neutrophils # (auto) 4.96 K/uL (1.4-6.5); Neutrophils % (auto) 60.3 %; Platelet Count 198 K/uL (130-400); RDW Coefficient of Variation 16.3 % (11.5-14.5); RDW Standard Deviation 53.8 fL (36.4-46.3); Red Blood Count 2.97 M/uL (4.2-5.4); White Blood Count 8.21 K/uL (4.8-10.8)
[2021-02-20] MEDS ORDERED: SODIUM CHLORIDE 0.9% 1000ML 1,000 ML IV PRN (07:00)
[2021-02-20] MEDS ORDERED: EPOETIN ALFA 10,000 UNITS/ML VIAL IV SCH (07:00)
[2021-02-20 07:15] LABS: BUN Creatinine Ratio 11.9 (10-20); Calcium 9.6 mg/dl (8.5-10.1); Creatinine Clr Calc Pharmacy 11.9 ml/min; Est GFR (African American) 10.8 ml/min; Est GFR (Non-African American) 9.3 ml/min; Potassium 4.7 mmol/L (3.5-5.1)
[2021-02-20] MEDS: ASCORBIC ACID 500 MG TAB PO SCH (07:59)
[2021-02-20] MEDS: CEROVITE ADV FORMULA TAB PO SCH (07:59)
[2021-02-20] MEDS: VENLAFAXINE HCL XR 150 MG CAPXR PO SCH (07:59)
[2021-02-20] MEDS: VENLAFAXINE HCL XR 37.5 MG CAPXR PO SCH (07:59)
[2021-02-20] MEDS: CALCIUM 600MG + VIT D 400 IU TAB PO SCH (07:59)
[2021-02-20] MEDS: CHOLECALCIFEROL 1,000 UNITS 25 MCG TAB PO SCH ×2 (07:59→21:55)
[2021-02-20] MEDS: ATORVASTATIN 40 MG TAB PO SCH (07:59)
[2021-02-20] MEDS: HEPARIN SOD 5,000 UNIT/0.5 ML VIAL SQ SCH ×2 (08:00→21:55)
[2021-02-20] MEDS: FAMOTIDINE 20 MG TAB PO SCH (08:00)
[2021-02-20] MEDS: INSULIN ASPART 100 UNITS/ML 3 ML PEN SC SCH ×4 (08:04→21:55)
[2021-02-20] MEDS: amLODIPine BESYLATE 5 MG TAB PO SCH ×2 (08:28→21:55)
[2021-02-20] MEDS: ISOSORBIDE MONO EXTENDED REL 60 MG TABCR PO SCH (08:28)
--- NOTE | 2021-02-20 11:32 | Nephrology Progress Note ---
Date of Service February 20, 2021 Assessment & Plan (1) End-stage renal disease on hemodialysis: Plan: * ESRD due to DKD * Dialyzes MWF at [facility]: 4 hours, 180 optiflux Qb 300 with 3 K bath. EDW has been 84.5 kg. Typical UF 1-2 L. * Current dialysis access is R [facility]. AVF was created 11/08/[address] Gregg * HD today for correction of azotemia. 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 Anticipate improvement following UF today * Continue home medications Admission and Anticipated Discharge Date Admission Date: February 15, 2021 Subjective Ms. Bolivar was evaluated in her hospital room this morning. She c/o mild incisional discomfort but denies fever, angina, dyspnea or uremic symptoms. She is depressed about being in the hospital Review of Systems Constitutional: no fever Eyes: no problem reported Ear, Nose, Mouth, Throat: no problem reported Respiratory: no cough and no dyspnea Cardiovascular: no chest pain, no palpitations and no edema Gastrointestinal: no abdominal pain, no nausea, no vomiting and no diarrhea/loose stools Genitourinary: no dysuria and no hematuria Musculoskeletal: no back pain Integumentary: no rash Neurologic: no confusion Physical Exam Constitutional: not in distress Eyes: PERRL, conjunctivae normal, anicteric sclerae ENMT: external ear and nose normal, oropharynx normal Neck: trachea midline, no thyromegaly Respiratory: normal respiratory effort, lungs clear to auscultation Cardiovascular: Rate/Rhythm: regular rate and regular rhythm Extremities: no edema Gastrointestinal (Abdomen): normal bowel sounds, soft, nontender, no hepatosplenomegaly Musculoskeletal: Extremities: no cyanosis Skin: no rashes, warm and dry Neurologic: awake; not confused Results & Data ([facility]) Vital Signs (Past 12 Hours) Vital Signs Temp Pulse Resp BP Pulse Ox 02/20/21 06:15 37.0 C 82 18 188/67 H 93 02/19/21 23:47 95 H 171/68 H Laboratory Tests 02/20/21 02/20/21 06:32 06:32 WBC 8.21 Hgb 8.4 L Hct 26.6 L Plt Count 198 Sodium 138 Potassium 4.7 Chloride 105 Carbon Dioxide 26 BUN 51 H Creatinine 4.27 H Glucose 148 H PG Care Time/CCT Total # of Minutes Spent Total Time Spent with Patient: Total time spent is greater than 50% in coordination of care (as documented) at patient's floor/unit and/or counseling patient: Coding Level of Care Code 29989 Subseq Hosp Care Lvl 3 Diagnoses End-stage renal disease on hemodialysis N18.6; Z99.2 Closed intertrochanteric fracture of left femur S72.142A Encounter type: initial encounter Fracture alignment: displaced Anemia N18.6; D63.1; Z99.2 Anemia type: due to chronic kidney disease Chronic kidney disease stage: on chronic dialysis Hypertension I10 Hypertension type: unspecified (1) Closed intertrochanteric fracture of left femur Encounter type: initial encounter Fracture alignment: displaced Qualified Code(s): S72.142A - Displaced intertrochanteric fracture of left femur, initial encounter for closed fracture (2) Anemia Anemia type: due to chronic kidney disease Chronic kidney disease stage: on chronic dialysis Qualified Code(s): N18.6 - End stage renal disease; D63.1 - Anemia in chronic kidney disease; Z99.2 - Dependence on renal dialysis (3) Hypertension Hypertension type: unspecified Qualified Code(s): I10 - Essential (primary) hypertension
--- NOTE | 2021-02-20 13:32 | Hospitalist Progress Note ---
Date of Service February 20, 2021 Assessment & Plan (1) Closed intertrochanteric fracture of left femur: Plan: Left femur nailing 02/16/2021 Dr. Ly Geriatric hip fracture protocol order set Age-related osteoporosis with current fracture of left femur Dildonn & Radha for pain PT is recommending inpatient rehab stay (2) Acute blood loss anemia: Plan: Hgb stable 8.4 after blood transfusion. No need for further transfusion at this stage. No sign, symptom of GI blood loss, FOB pending collection. (3) End-stage renal disease on hemodialysis: Plan: Undergoes dialysis, Friday, Friday and Friday last dialysis session was Saturday 02/[address] Spangler (4) Type 2 diabetes mellitus with insulin therapy: Plan: Appreciate pharmacy glycemic management (5) Depression: Plan: Continue venlafaxine (6) CAD (coronary artery disease): Plan: CAD/hypertension- Continue amlodipine and isosorbide mononitrate (7) Hypertension, uncontrolled: Plan: See above Plan: Heparin for DVT prevention based upon renal dysfunction Admission and Anticipated Discharge Date Admission Date: February 15, 2021 Subjective Fatigue improved after blood transfusion although she was seen just after dialysis and she always gets a little worn out after this. Reports she is doing better with physical therapy. No melena or bright red blood in stool. Review of Systems Review of Systems: All systems reviewed & are unremarkable except as noted in HPI & below Physical Exam Constitutional: WD/WN, vitals as above Respiratory: normal respiratory effort, lungs clear to auscultation Cardiovascular: RRR, no murmur, no edema Gastrointestinal (Abdomen): normal bowel sounds, soft, nontender, no hepatosplenomegaly Skin: no rashes, warm and dry Neurologic: moves all extremities and awake; no focal motor deficits (no lateralizing deficit) and not confused Psychiatric: A+Ox3, euthymic affect Results & Data Results & Data ([facility]) Vital Signs (Past 12 Hours) Vital Signs Temp Pulse Pulse Resp BP BP Pulse Ox 02/20/21 12:20 88 122/59 L 02/20/21 12:00 85 91/56 L 02/20/21 11:40 88 134/68 02/20/21 11:20 83 149/67 H 02/20/21 11:00 80 178/68 H 02/20/21 10:50 37.0 C 82 02/20/21 06:15 37.0 C 82 18 188/67 H 93 PG Care Time/CCT Total # of Minutes Spent Total Time Spent with Patient: Total time spent is greater than 50% in coordination of care (as documented) at patient's floor/unit and/or counseling patient: Coding Level of Care Code 60368 Subseq Hosp Care Lvl 2 Diagnoses Closed intertrochanteric fracture of left femur S72.142A Encounter type: initial encounter Fracture alignment: displaced Acute blood loss anemia D62 End-stage renal disease on hemodialysis N18.6; Z99.2 Type 2 diabetes mellitus with insulin therapy E11.9; Z79.4 Depression F32.9 CAD (coronary artery disease) I25.10 Hypertension, uncontrolled I10 (1) Closed intertrochanteric fracture of left femur Encounter type: initial encounter Fracture alignment: displaced Qualified Code(s): S72.142A - Displaced intertrochanteric fracture of left femur, initial encounter for closed fracture
[2021-02-20] MEDS: INSULIN GLARGINE SOLOSTAR 100 UNITS/ML 3 ML PEN SQ SCH (21:55)
[2021-02-20] MEDS: DOCUSATE SODIUM/SENNA 50/8.6MG TAB PO SCH (21:55)
[2021-02-21 07:35] LABS: Hematocrit (blood only) 28.8 % (37-47); Hemoglobin 9.1 g/dL (12.0-16.0); Mean Corpuscular Hemoglobin 27.8 pg (25-34); Mean Corpuscular Hgb Conc 31.6 g/dL (32-36); Mean Corpuscular Volume 88.1 fL (80-100); Mean Platelet Volume 9.2 fL (7.4-10.4); Platelet Count 209 K/uL (130-400); RDW Coefficient of Variation 16.5 % (11.5-14.5); RDW Standard Deviation 52.7 fL (36.4-46.3); Red Blood Count 3.27 M/uL (4.2-5.4); White Blood Count 8.21 K/uL (4.8-10.8)
[2021-02-21] MEDS: HEPARIN SOD 5,000 UNIT/0.5 ML VIAL SQ SCH ×2 (07:46→20:19)
[2021-02-21] MEDS: CHOLECALCIFEROL 1,000 UNITS 25 MCG TAB PO SCH ×2 (07:47→20:19)
[2021-02-21] MEDS: CEROVITE ADV FORMULA TAB PO SCH (07:47)
[2021-02-21] MEDS: CALCIUM 600MG + VIT D 400 IU TAB PO SCH (07:47)
[2021-02-21] MEDS: VENLAFAXINE HCL XR 150 MG CAPXR PO SCH (07:47)
[2021-02-21] MEDS: VENLAFAXINE HCL XR 37.5 MG CAPXR PO SCH (07:47)
[2021-02-21] MEDS: ASCORBIC ACID 500 MG TAB PO SCH (07:47)
[2021-02-21] MEDS: ISOSORBIDE MONO EXTENDED REL 60 MG TABCR PO SCH (07:47)
[2021-02-21] MEDS: ATORVASTATIN 40 MG TAB PO SCH (07:47)
[2021-02-21] MEDS: amLODIPine BESYLATE 5 MG TAB PO SCH ×2 (07:48→20:18)
[2021-02-21] MEDS: FAMOTIDINE 20 MG TAB PO SCH (07:48)
[2021-02-21 08:14] LABS: BUN Creatinine Ratio 12.5 (10-20); Calcium 9.7 mg/dl (8.5-10.1); Creatinine Clr Calc Pharmacy 15.5 ml/min; Est GFR (African American) 14.1 ml/min; Est GFR (Non-African American) 12.1 ml/min; Potassium 4.5 mmol/L (3.5-5.1)
[2021-02-21] MEDS: INSULIN ASPART 100 UNITS/ML 3 ML PEN SC SCH ×4 (08:52→21:36)
--- NOTE | 2021-02-21 10:54 | Nephrology Progress Note ---
Date of Service February 21, 2021 Assessment & Plan (1) End-stage renal disease on hemodialysis: Plan: * ESRD due to DKD * Dialyzes MWF at [facility]: 4 hours, 180 optiflux Qb 300 with 3 K bath. EDW has been 84.5 kg. Typical UF 1-2 L. * Current dialysis access is R IJ [facility]C. AVF was created 11/08/[address] Gregg * Plan next HD for am (2) Closed intertrochanteric fracture of left femur: Plan: * s/p intramedullary nail fixation of L femur (3) Anemia: Plan: * Transfused one unit PRBC 02/19 * Will provide EMELINA w/ HD tomorrow (4) Hypertension: Plan: * BP elevated this am. Anticipate improvement with UF * Continue home medications Admission and Anticipated Discharge Date Admission Date: February 15, 2021 Subjective Ms. Bolivar was evaluated in her hospital room this morning. She participating in PT. Ms. Bolivar was able to walk 15 feet with assistance using a walker. She was in much better spirts this morning. Review of Systems Constitutional: no fever Eyes: no problem reported Ear, Nose, Mouth, Throat: no problem reported Respiratory: no cough and no dyspnea Cardiovascular: no chest pain, no palpitations and no edema Gastrointestinal: no abdominal pain, no nausea, no vomiting and no diarrhea/loose stools Genitourinary: no dysuria and no hematuria Musculoskeletal: no back pain Integumentary: no rash Neurologic: no confusion Physical Exam Constitutional: not in distress Eyes: PERRL, conjunctivae normal, anicteric sclerae ENMT: external ear and nose normal, oropharynx normal Neck: trachea midline, no thyromegaly Respiratory: normal respiratory effort, lungs clear to auscultation Cardiovascular: Rate/Rhythm: regular rate and regular rhythm Extremities: no edema Gastrointestinal (Abdomen): normal bowel sounds, soft, nontender, no hepatosplenomegaly Musculoskeletal: Extremities: no cyanosis Skin: no rashes, warm and dry Neurologic: awake; not confused Results & Data ([facility]) Vital Signs (Past 12 Hours) Vital Signs Temp Pulse Pulse Resp BP Pulse Ox 02/21/21 10:01 78 160/84 H 02/21/21 08:04 36.7 C 80 16 191/67 H 93 02/20/21 23:05 162/78 H Laboratory Results Laboratory Tests 02/21/21 02/21/21 07:20 07:20 WBC 8.21 Hgb 9.1 L Hct 28.8 L Plt Count 209 Sodium 138 Potassium 4.5 Chloride 105 Carbon Dioxide 25 BUN 43 H Creatinine 3.43 H D Glucose 142 H PG Care Time/CCT Total # of Minutes Spent Total Time Spent with Patient: Total time spent is greater than 50% in coordination of care (as documented) at patient's floor/unit and/or counseling patient: Coding Level of Care Code 93822 Subseq Hosp Care Lvl 3 Diagnoses End-stage renal disease on hemodialysis N18.6; Z99.2 Closed intertrochanteric fracture of left femur S72.142A Encounter type: initial encounter Fracture alignment: displaced Anemia N18.6; D63.1; Z99.2 Anemia type: due to chronic kidney disease Chronic kidney disease stage: on chronic dialysis Hypertension I10 Hypertension type: unspecified (1) Closed intertrochanteric fracture of left femur Encounter type: initial encounter Fracture alignment: displaced Qualified Code(s): S72.142A - Displaced intertrochanteric fracture of left femur, initial encounter for closed fracture (2) Anemia Anemia type: due to chronic kidney disease Chronic kidney disease stage: on chronic dialysis Qualified Code(s): N18.6 - End stage renal disease; D63.1 - Anemia in chronic kidney disease; Z99.2 - Dependence on renal dialysis (3) Hypertension Hypertension type: unspecified Qualified Code(s): I10 - Essential (primary) hypertension
--- NOTE | 2021-02-21 15:19 | Pharmacy Report ---
Pharmacy Glycemic Short Note 2 - Date of Service February 21, 2021 - Glycemic Short BSG Results (Last 24 hours): 02/20/21 02/20/21 02/20/21 17:21 17:48 20:58 Glucose POC Glucose 249 H 217 H 240 H 02/21/21 02/21/21 02/21/21 07:20 08:15 11:44 Glucose 142 H POC Glucose 128 H 237 H OUTPATIENT ANTIDIABETIC REGIMEN: * Basaglar 10 units SQ qPM * Novolog SQ TID (up to 30 units/day) * A1c = 6.5% ASSESSMENT: 02/21/21: * BSGs have been relatively well-controlled, with intermittent hyperglycemia. * Gradually tightening carb ratio to provide additional prandial coverage. Background * Sonam is a T2DM with h/o ESRD on HD who presented with closed intertrochanteric fracture of left femur, s/p surgery on 02/16/21 * Basal insulin dose reduced by 50% on admission. Patient tolerated an oral diet with elevated fasting BSG, therefore I will increase Lantus. * Continue current Novolog CF and CR PLAN FOR INPATIENT GLYCEMIC CONTROL: * Hold outpatient oral diabetes medications * Basal insulin * Lantus 10 units SQ qPM * Bolus insulin * NovoLog per scale ACHS or Q6hrs while NPO * Goal Range: Low 120 mg/dL - High 160 mg/dL * Correction Factor: 25 mg/dL/unit * Nutritional / Prandial insulin per carb ratio of 1 unit per 8 grams CHO consumed PLAN FOR DISCHARGE: * Patient's A1c = 6.5% today. * However, this result is likely somewhat unreliable in ESRD patients d/t interactions between the A1c analyzing technique and high levels of urea in ESRD, reduced RBC life span, iron deficiency anemia, and EPO administration. HbA1c > 7.5% in ESRD patient may overestimate the extent of hyperglycemia in ESRD patients. * Recommend frequent BSG monitoring to guide insulin dose adjustment as outpatient
[2021-02-21] MEDS: DOCUSATE SODIUM/SENNA 50/8.6MG TAB PO SCH (20:22)
[2021-02-21] MEDS: INSULIN GLARGINE SOLOSTAR 100 UNITS/ML 3 ML PEN SQ SCH (21:36)
--- NOTE | 2021-02-21 21:55 | Hospitalist Progress Note ---
Date of Service February 21, 2021 Assessment & Plan (1) Closed intertrochanteric fracture of left femur: Plan: Left femur nailing 02/16/2021 Dr. Ly Geriatric hip fracture protocol order set Age-related osteoporosis with current fracture of left femur Navdeep & Radha for pain PT is recommending inpatient rehab stay (2) Acute blood loss anemia: Plan: Hgb stable after blood transfusion. No need for further transfusion at this stage. No sign, symptom of GI blood loss, FOB pending collection. (3) End-stage renal disease on hemodialysis: Plan: Undergoes dialysis, Friday, Friday and Friday Consult nephrology Dr. Spangler (4) Type 2 diabetes mellitus with insulin therapy: Plan: Appreciate pharmacy glycemic management (5) Depression: Plan: Continue venlafaxine (6) CAD (coronary artery disease): Plan: CAD/hypertension- Continue amlodipine and isosorbide mononitrate (7) Hypertension, uncontrolled: Plan: See above Plan: Heparin for DVT prevention based upon renal dysfunction - continue as outpatient per orthopedic recommendations Disposition - medically stable for discharge pending placement Admission and Anticipated Discharge Date Admission Date: February 15, 2021 Subjective Appears to be doing much better today with physical therapy although took a lot out of her and she had to nap this afternoon. No melena or bright red blood in stool. No chest pain, dizziness or lightheadedness. Review of Systems Review of Systems: All systems reviewed & are unremarkable except as noted in HPI & below Physical Exam Constitutional: WD/WN, vitals as above Respiratory: normal respiratory effort, lungs clear to auscultation Cardiovascular: RRR, no murmur, no edema Gastrointestinal (Abdomen): normal bowel sounds, soft, nontender, no hepatosplenomegaly Skin: no rashes, warm and dry Neurologic: moves all extremities and awake; no focal motor deficits (no lateralizing deficit) and not confused Motor/Sensory: + sensory deficit (bel ow ankles chronic peripheral neuropathy) Psychiatric: A+Ox3, euthymic affect Results & Data Results & Data ([facility]) Vital Signs (Past 12 Hours) Vital Signs Temp Pulse Pulse Resp BP Pulse Ox 02/21/21 15:52 37.0 C 74 16 161/67 H 94 02/21/21 13:05 100 02/21/21 10:01 78 160/84 H PG Care Time/CCT Total # of Minutes Spent Total Time Spent with Patient: Total time spent is greater than 50% in coordination of care (as documented) at patient's floor/unit and/or counseling patient: Coding Level of Care Code 52964 Subseq Hosp Care Lvl 2 Diagnoses Closed intertrochanteric fracture of left femur S72.142A Encounter type: initial encounter Fracture alignment: displaced Acute blood loss anemia D62 End-stage renal disease on hemodialysis N18.6; Z99.2 Type 2 diabetes mellitus with insulin therapy E11.9; Z79.4 Depression F32.9 CAD (coronary artery disease) I25.10 Hypertension, uncontrolled I10 (1) Closed intertrochanteric fracture of left femur Encounter type: initial encounter Fracture alignment: displaced Qualified Code(s): S72.142A - Displaced intertrochanteric fracture of left femur, initial encounter for closed fracture
[2021-02-21 22:47] LABS: Appearance Urine Cloudy (Clear); Bacteria Urine Automated Negative (Negative); Bilirubin Urine Negative (Negative); Blood Urine 1+ (Negative); Color Urine Yellow; Epithelial Cell Urine Auto >30 /lpf (0-5); Glucose Urine UA Negative (Negative); Ketones Urine Trace (Negative); Leukocyte Esterase Urine Trace (Negative); Nitrite Urine Negative (Negative); Protein Urine 2+ (Negative); RBC Urine Automated 0-4 /hpf (0-4); Specific Gravity Urine 1.017 (1.000-1.030); Urobilinogen Urine Negative (Negative)
[2021-02-21 23:06] LABS: Cast Urine Automated >30 /lpf (0-5); Granular Casts Urine >30 /lpf (0)
[2021-02-22 07:00] LABS: Basophils # (auto) 0.04 K/uL (0-0.2); Basophils % (auto) 0.6 %; Eosinophils # (auto) 0.74 K/uL (0-0.5); Eosinophils % (auto) 10.7 %; Hematocrit (blood only) 26.4 % (37-47); Hemoglobin 8.4 g/dL (12.0-16.0); Immature Granulocytes # (auto) 0.12 K/uL (0.00-0.02); Immature Granulocytes % (auto) 1.7 %; Lymphocytes # (auto) 1.46 K/uL (1.2-3.4); Lymphocytes % (auto) 21.1 %; Mean Corpuscular Hemoglobin 28.1 pg (25-34); Mean Corpuscular Hgb Conc 31.8 g/dL (32-36); Mean Corpuscular Volume 88.3 fL (80-100); Mean Platelet Volume 9.5 fL (7.4-10.4); Monocytes # (auto) 1.18 K/uL (0.11-0.59); Monocytes % (auto) 17.1 %; Neutrophils # (auto) 3.37 K/uL (1.4-6.5); Neutrophils % (auto) 48.8 %; Platelet Count 224 K/uL (130-400); RDW Coefficient of Variation 16.6 % (11.5-14.5); RDW Standard Deviation 53.3 fL (36.4-46.3); Red Blood Count 2.99 M/uL (4.2-5.4); White Blood Count 6.91 K/uL (4.8-10.8)
[2021-02-22] MEDS ORDERED: SODIUM CHLORIDE 0.9% 1000ML 1,000 ML IV PRN (07:00)
[2021-02-22] MEDS ORDERED: HEPARIN SOD (PORCINE) 1000 UNIT/ML IV SCH ×2 (07:00)
[2021-02-22] MEDS ORDERED: EPOETIN ALFA 10,000 UNITS/ML VIAL IV SCH (07:00)
[2021-02-22 07:36] LABS: BUN Creatinine Ratio 13.7 (10-20); Calcium 9.8 mg/dl (8.5-10.1); Creatinine Clr Calc Pharmacy 12.8 ml/min; Est GFR (African American) 11.2 ml/min; Est GFR (Non-African American) 9.7 ml/min; Potassium 4.3 mmol/L (3.5-5.1)
[2021-02-22] MEDS: amLODIPine BESYLATE 5 MG TAB PO SCH ×2 (08:58→21:26)
[2021-02-22] MEDS: CEROVITE ADV FORMULA TAB PO SCH (08:58)
[2021-02-22] MEDS: ASCORBIC ACID 500 MG TAB PO SCH (08:58)
[2021-02-22] MEDS: ATORVASTATIN 40 MG TAB PO SCH (08:58)
[2021-02-22] MEDS: CALCIUM 600MG + VIT D 400 IU TAB PO SCH (08:58)
[2021-02-22] MEDS: CHOLECALCIFEROL 1,000 UNITS 25 MCG TAB PO SCH ×2 (08:59→21:26)
[2021-02-22] MEDS: VENLAFAXINE HCL XR 150 MG CAPXR PO SCH (08:59)
[2021-02-22] MEDS: ISOSORBIDE MONO EXTENDED REL 60 MG TABCR PO SCH (08:59)
[2021-02-22] MEDS: VENLAFAXINE HCL XR 37.5 MG CAPXR PO SCH (08:59)
[2021-02-22] MEDS: INSULIN ASPART 100 UNITS/ML 3 ML PEN SC SCH ×4 (09:05→21:28)
[2021-02-22] MEDS: FAMOTIDINE 20 MG TAB PO SCH (09:11)
[2021-02-22] MEDS: HEPARIN SOD 5,000 UNIT/0.5 ML VIAL SQ SCH ×2 (09:12→21:27)
--- NOTE | 2021-02-22 09:22 | Hospitalist Progress Note ---
Date of Service February 22, 2021 Assessment & Plan (1) Closed intertrochanteric fracture of left femur: Plan: Left femur nailing 02/16/2021 Dr. Ly - POD#7 Geriatric hip fracture protocol order set Age-related osteoporosis with current fracture of left femur Dilaudid & [place] for pain PT is recommending inpatient rehab stay Currently awaiting a bed for placement (2) Acute blood loss anemia: Plan: Hgb stable after blood transfusion. No need for further transfusion at this stage. No sign, symptom of GI blood loss, FOB pending collection. Epoetin alpha with dialysis Follow serial labs (3) End-stage renal disease on hemodialysis: Plan: Undergoes dialysis, Friday, Friday and Friday Consult nephrology. Appreciate Dr. Spangler's input (4) Type 2 diabetes mellitus with insulin therapy: Plan: Appreciate pharmacy glycemic management 02/22: Pt received total of 39 units of insulin yesterday; 10 units basal + 29 units bolus. Fasting BSG was up to 135 mg/dl this AM. Post prandial BSGs were only slightly above goal yesterday but pre-lunch BSG elevated above 200 mg/dl. Basal Lantus dose at HS increased for tonight. Continued current Novolog parameters. (5) Depression: Plan: Continue venlafaxine (6) CAD (coronary artery disease): Plan: CAD/hypertension- Continue amlodipine and isosorbide mononitrate (7) Hypertension, uncontrolled: Plan: See above Plan: Heparin for DVT prevention based upon renal dysfunction - continue as outpatient per orthopedic recommendations Disposition - medically stable for discharge pending placement -awaiting bed Admission and Anticipated Discharge Date Admission Date: February 15, 2021 Supervising Physician Co-Signing Physician Notes Patient seen and examined, chart reviewed, case discussed with Isai Argueta PA-C and I agree with the assessment and plan as above Subjective Attending: Dr. Marcum Patient seen and examined in the dialysis clinic. She continues to have some left hip pain postsurgically. No bleeding. No fever or chills. No acute problems. Review of Systems Review of Systems: All systems reviewed & are unremarkable except as noted in Subjective Physical Exam Physical Exam: GENERAL : No acute distress EYES: No icterus, gaze conjugate NOSE: No evidence of epistaxis MOUTH: No lesions or candidiasis NECK: Supple LUNGS: CTA B/L, no wheezes, rales or rhonchi CHEST: Tunneled catheter for dialysis in place. No bleeding around site. No significant tenderness to palpation HEART: Regular, rate controlled ABDOMEN: Soft, NT, ND, BS Present EXTREMITIES: No LE edema, pedal pulses intact and equal bilaterally. No significant pain to palpation of left hip. No evidence of bleeding. Left arm with AV fistula with good bruit NEURO: A&OX3 Results & Data Results & Data ([facility]) Vital Signs (Past 12 Hours) Vital Signs Temp Pulse Pulse Pulse Resp BP BP 02/22/21 09:00 83 140/83 02/22/21 08:50 85 131/63 02/22/21 08:41 36.6 C 66 16 195/70 H 02/22/21 08:40 37.1 C 88 02/21/21 22:25 37.3 C 86 22 148/73 H Pulse Ox 02/22/21 09:00 02/22/21 08:50 02/22/21 08:41 91 02/22/21 08:40 02/21/21 22:25 95 Laboratory Results 02/22/21 06:30 02/22/21 06:30 Diagnostic Findings No further diagnostics PG Care Time/CCT Total # of Minutes Spent Total Time Spent with Patient: Total time spent is greater than 50% in coordination of care (as documented) at patient's floor/unit and/or counseling patient: 25 minutes Coding Level of Care Code 45731 Subseq Hosp Care Lvl 2 Diagnoses Closed intertrochanteric fracture of left femur S72.142A Encounter type: initial encounter Fracture alignment: displaced Acute blood loss anemia D62 End-stage renal disease on hemodialysis N18.6; Z99.2 Type 2 diabetes mellitus with insulin therapy E11.9; Z79.4 Depression F32.9 CAD (coronary artery disease) I25.10 Hypertension, uncontrolled I10 Time Spent (min) 25 (1) Closed intertrochanteric fracture of left femur Encounter type: initial encounter Fracture alignment: displaced Qualified Code(s): S72.142A - Displaced intertrochanteric fracture of left femur, initial encounter for closed fracture
--- NOTE | 2021-02-22 10:32 | Nephrology Progress Note ---
Date of Service February 22, 2021 Assessment & Plan (1) End-stage renal disease on hemodialysis: Plan: * ESRD due to DKD * Dialyzes MWF at [facility]: 4 hours, 180 optiflux Qb 300 with 3 K bath. EDW has been 84.5 kg. Typical UF 1-2 L. * Current dialysis access is R IJ [facility]C. AVF was created 11/08/[address] Gregg * HD scheduled for this afternoon. HD orders have been entered into EMR and HD RN notified (2) Closed intertrochanteric fracture of left femur: Plan: * s/p intramedullary nail fixation of L femur (3) Anemia: Plan: * Transfused one unit PRBC 02/19 * Will provide EMELINA w/ HD today (4) Hypertension: Plan: * BP elevated this am. Anticipate improvement with UF * Continue home medications Admission and Anticipated Discharge Date Admission Date: February 15, 2021 Subjective Ms. Bolivar was evaluated in her hospital room this morning. She reports difficulty participating in PT due to R leg discomfort. She denies fever, dyspnea, angina Review of Systems Constitutional: no fever Eyes: no problem reported Ear, Nose, Mouth, Throat: no problem reported Respiratory: no cough and no dyspnea Cardiovascular: no chest pain, no palpitations and no edema Gastrointestinal: no abdominal pain, no nausea, no vomiting and no diarrhea/loose stools Genitourinary: no dysuria and no hematuria Musculoskeletal: no back pain Integumentary: no rash Neurologic: no confusion Physical Exam Constitutional: not in distress Eyes: PERRL, conjunctivae normal, anicteric sclerae ENMT: external ear and nose normal, oropharynx normal Neck: trachea midline, no thyromegaly Respiratory: normal respiratory effort, lungs clear to auscultation Cardiovascular: Rate/Rhythm: regular rate and regular rhythm Extremities: no edema Gastrointestinal (Abdomen): normal bowel sounds, soft, nontender, no hepatosplenomegaly Musculoskeletal: Extremities: no cyanosis Skin: no rashes, warm and dry Neurologic: awake; not confused Results & Data ([facility]) Vital Signs (Past 12 Hours) Vital Signs Temp Pulse Pulse Pulse Resp BP BP 02/22/21 09:00 83 140/83 02/22/21 08:50 85 131/63 02/22/21 08:41 36.6 C 66 16 195/70 H 02/22/21 08:40 37.1 C 88 Pulse Ox 02/22/21 09:00 02/22/21 08:50 02/22/21 08:41 91 02/22/21 08:40 Laboratory Results Laboratory Tests 02/22/21 02/22/21 06:30 06:30 WBC 6.91 Hgb 8.4 L Hct 26.4 L Plt Count 224 Sodium 136 Potassium 4.3 Chloride 105 Carbon Dioxide 24 BUN 57 H Creatinine 4.14 H D PG Care Time/CCT Total # of Minutes Spent Total Time Spent with Patient: Total time spent is greater than 50% in coordination of care (as documented) at patient's floor/unit and/or counseling patient: Coding Level of Care Code 30362 Subseq Hosp Care Lvl 3 Diagnoses End-stage renal disease on hemodialysis N18.6; Z99.2 Closed intertrochanteric fracture of left femur S72.142A Encounter type: initial encounter Fracture alignment: displaced Anemia N18.6; D63.1; Z99.2 Anemia type: due to chronic kidney disease Chronic kidney disease stage: on chronic dialysis Hypertension I10 Hypertension type: unspecified (1) Closed intertrochanteric fracture of left femur Encounter type: initial encounter Fracture alignment: displaced Qualified Code(s): S72.142A - Displaced intertrochanteric fracture of left femur, initial encounter for closed fracture (2) Anemia Anemia type: due to chronic kidney disease Chronic kidney disease stage: on chronic dialysis Qualified Code(s): N18.6 - End stage renal disease; D63.1 - Anemia in chronic kidney disease; Z99.2 - Dependence on renal dialysis (3) Hypertension Hypertension type: unspecified Qualified Code(s): I10 - Essential (primary) hypertension
--- NOTE | 2021-02-22 12:22 | Pharmacy Report ---
Pharmacy Glycemic Short Note 2 - Date of Service February 22, 2021 - Glycemic Short BSG Results (Last 24 hours): 02/21/21 02/21/21 02/22/21 16:55 21:32 06:30 Glucose 119 H POC Glucose 193 H 154 H 02/22/21 02/22/21 08:23 11:26 Glucose POC Glucose 135 H 254 H OUTPATIENT ANTIDIABETIC REGIMEN: * Basaglar 10 units SQ qPM * Novolog SQ TID (up to 30 units/day) * A1c = 6.5% ASSESSMENT: 02/22: * Pt received total of 39 units of insulin yesterday; 10 units basal + 29 units bolus. * Fasting BSG was up to 135 mg/dl this AM. Post prandial BSGs were only slightly above goal yesterday but pre-lunch BSG elevated above 200 mg/dl. * Basal Lantus dose at HS increased for tonight. Continued current Novolog parameters. * Pt will be receiving HD this afternoon. 02/21/21: * BSGs have been relatively well-controlled, with intermittent hyperglycemia. * Gradually tightening carb ratio to provide additional prandial coverage. Background * Sonam is a T2DM with h/o ESRD on HD who presented with closed intertrochanteric fracture of left femur, s/p surgery on 02/16/21 * Basal insulin dose reduced by 50% on admission. Patient tolerated an oral diet with elevated fasting BSG, therefore I will increase Lantus. * Continue current Novolog CF and CR PLAN FOR INPATIENT GLYCEMIC CONTROL: * Hold outpatient oral diabetes medications * Basal insulin: increased * Lantus 15 units SQ qPM * Bolus insulin: continued * NovoLog per scale ACHS or Q6hrs while NPO * Goal Range: Low 120 mg/dL - High 160 mg/dL * Correction Factor: 25 mg/dL/unit * Nutritional / Prandial insulin per carb ratio of 1 unit per 8 grams CHO consumed PLAN FOR DISCHARGE: * Patient's A1c = 6.5% today. * However, this result is likely somewhat unreliable in ESRD patients d/t interactions between the A1c analyzing technique and high levels of urea in ESRD, reduced RBC life span, iron deficiency anemia, and EPO administration. HbA1c > 7.5% in ESRD patient may overestimate the extent of hyperglycemia in ESRD patients. * Recommend frequent BSG monitoring to guide insulin dose adjustment as outpatient
[2021-02-22] MEDS: ACETAMINOPHEN 325 MG TAB PO PRN (17:14)
[2021-02-22] MEDS: INSULIN GLARGINE SOLOSTAR 100 UNITS/ML 3 ML PEN SQ SCH (21:31)
[2021-02-22] MEDS: DOCUSATE SODIUM/SENNA 50/8.6MG TAB PO SCH (21:33)
[2021-02-23] MEDS ORDERED: INSULIN ASPART 100 UNITS/ML 3 ML PEN SC SCH (02:00)
[2021-02-23 06:12] LABS: Hematocrit (blood only) 28.3 % (37-47); Hemoglobin 8.9 g/dL (12.0-16.0); Mean Corpuscular Hemoglobin 28.2 pg (25-34); Mean Corpuscular Hgb Conc 31.4 g/dL (32-36); Mean Corpuscular Volume 89.6 fL (80-100); Mean Platelet Volume 9.2 fL (7.4-10.4); Platelet Count 253 K/uL (130-400); RDW Coefficient of Variation 16.6 % (11.5-14.5); RDW Standard Deviation 53.8 fL (36.4-46.3); Red Blood Count 3.16 M/uL (4.2-5.4); White Blood Count 8.62 K/uL (4.8-10.8)
[2021-02-23 06:49] LABS: BUN Creatinine Ratio 13.1 (10-20); Calcium 9.4 mg/dl (8.5-10.1); Creatinine Clr Calc Pharmacy 15.8 ml/min; Est GFR (African American) 14.6 ml/min; Est GFR (Non-African American) 12.6 ml/min
[2021-02-23] MEDS: ATORVASTATIN 40 MG TAB PO SCH (07:38)
[2021-02-23] MEDS: FAMOTIDINE 20 MG TAB PO SCH (07:38)
[2021-02-23] MEDS: CHOLECALCIFEROL 1,000 UNITS 25 MCG TAB PO SCH ×2 (07:38→21:10)
[2021-02-23] MEDS: VENLAFAXINE HCL XR 37.5 MG CAPXR PO SCH (07:38)
[2021-02-23] MEDS: CALCIUM 600MG + VIT D 400 IU TAB PO SCH (07:38)
[2021-02-23] MEDS: VENLAFAXINE HCL XR 150 MG CAPXR PO SCH (07:38)
[2021-02-23] MEDS: ASCORBIC ACID 500 MG TAB PO SCH (07:38)
[2021-02-23] MEDS: CEROVITE ADV FORMULA TAB PO SCH (07:38)
[2021-02-23] MEDS: amLODIPine BESYLATE 5 MG TAB PO SCH ×2 (08:46→21:08)
[2021-02-23] MEDS: ISOSORBIDE MONO EXTENDED REL 60 MG TABCR PO SCH (08:46)
[2021-02-23] MEDS: HEPARIN SOD 5,000 UNIT/0.5 ML VIAL SQ SCH ×2 (08:47→21:09)
[2021-02-23] MEDS: INSULIN ASPART 100 UNITS/ML 3 ML PEN SC SCH ×4 (08:49→21:12)
--- NOTE | 2021-02-23 09:57 | Nephrology Progress Note ---
Date of Service February 23, 2021 Assessment & Plan (1) End-stage renal disease on hemodialysis: Plan: * ESRD due to DKD * Current dialysis access is R IJ [facility]. AVF was created 11/08/[address] Gregg * [facility] optiflux Qb 300 with 3 K bath. EDW has been 84.5 kg. Typical UF 1-2 L * Patient has been dialyzing TTS during her hospitalization due to the surgical and HD RN schedule * Will schedule next HD for Friday. Orders have been placed in EMR and HD RN notified (2) Closed intertrochanteric fracture of left femur: Plan: * s/p intramedullary nail fixation of L femur 02/16/21 (3) Anemia: Plan: * Transfused one unit PRBC 02/19 * Low iron stores. Will schedule Venofer 200 mg daily x 5 days * Will provide EMELINA w/ HD tomorrow (4) Hypertension: Plan: * BP elevated this am. Anticipate improvement with UF * Continue home medications Admission and Anticipated Discharge Date Admission Date: February 15, 2021 Subjective Ms. Bolivar was evaluated in her hospital room this morning. She reports difficulty participating in PT. She has pain in L leg when weight bearing. Review of Systems Constitutional: no fever Eyes: no problem reported Ear, Nose, Mouth, Throat: no problem reported Respiratory: no cough and no dyspnea Cardiovascular: no chest pain, no palpitations and no edema Gastrointestinal: no abdominal pain, no nausea, no vomiting and no diarrhea/loose stools Genitourinary: no dysuria and no hematuria Musculoskeletal: no back pain Integumentary: no rash Neurologic: no confusion Physical Exam Constitutional: not in distress Eyes: PERRL, conjunctivae normal, anicteric sclerae ENMT: external ear and nose normal, oropharynx normal Neck: trachea midline, no thyromegaly Respiratory: normal respiratory effort, lungs clear to auscultation Cardiovascular: Rate/Rhythm: regular rate and regular rhythm Extremities: no edema Gastrointestinal (Abdomen): normal bowel sounds, soft, nontender, no hepatosplenomegaly Musculoskeletal: Extremities: no cyanosis Skin: no rashes, warm and dry Neurologic: awake; not confused Results & Data ([facility]) Vital Signs (Past 12 Hours) Vital Signs Temp Pulse Resp BP Pulse Ox 02/23/21 06:29 36.8 C 72 18 198/74 H 95 02/22/21 22:13 37.2 C 79 20 167/74 H 94 Laboratory Results Laboratory Tests 02/23/21 02/23/21 05:48 05:48 WBC 8.62 Hgb 8.9 L Hct 28.3 L Plt Count 253 Sodium 136 Potassium 4.0 Chloride 106 Carbon Dioxide 26 BUN 44 H Creatinine 3.33 H D Glucose 127 H PG Care Time/CCT Total # of Minutes Spent Total Time Spent with Patient: Total time spent is greater than 50% in coordination of care (as documented) at patient's floor/unit and/or counseling patient: Coding Level of Care Code 02509 Subseq Hosp Care Lvl 3 Diagnoses End-stage renal disease on hemodialysis N18.6; Z99.2 Closed intertrochanteric fracture of left femur S72.142A Encounter type: initial encounter Fracture alignment: displaced Anemia N18.6; D63.1; Z99.2 Anemia type: due to chronic kidney disease Chronic kidney disease stage: on chronic dialysis Hypertension I10 Hypertension type: unspecified (1) Closed intertrochanteric fracture of left femur Encounter type: initial encounter Fracture alignment: displaced Qualified Code(s): S72.142A - Displaced intertrochanteric fracture of left femur, initial encounter for closed fracture (2) Anemia Anemia type: due to chronic kidney disease Chronic kidney disease stage: on chronic dialysis Qualified Code(s): N18.6 - End stage renal disease; D63.1 - Anemia in chronic kidney disease; Z99.2 - Dependence on renal dialysis (3) Hypertension Hypertension type: unspecified Qualified Code(s): I10 - Essential (primary) hypertension
--- NOTE | 2021-02-23 10:27 | Pharmacy Report ---
Pharmacy Glycemic Short Note 2 - Date of Service February 23, 2021 - Glycemic Short BSG Results (Last 24 hours): 02/22/21 02/22/21 02/22/21 11:26 16:56 20:30 Glucose POC Glucose 254 H 273 H 327 H* 02/22/21 02/22/21 02/23/21 20:32 23:55 02:27 Glucose POC Glucose 329 H* 135 H 103 H 02/23/21 02/23/21 05:48 08:12 Glucose 127 H POC Glucose 158 H OUTPATIENT ANTIDIABETIC REGIMEN: * Basaglar 10 units SQ qPM * Novolog SQ TID (up to 30 units/day) * A1c = 6.5% ASSESSMENT: 02/23: * Pt received total of 44 units of insulin yesterday; 15 units basal + 29 units bolus * Post prandial BSGs trended up during the day to 329 mg/dl at HS. Novolog CF and CR was tightened at HS. * Fasting BSG today = 127 mg/dl. Continued the same basal dose. * Will further tighten Novolog CF and CR with lunch today 02/22: * Pt received total of 39 units of insulin yesterday; 10 units basal + 29 units bolus. * Fasting BSG was up to 135 mg/dl this AM. Post prandial BSGs were only slightly above goal yesterday but pre-lunch BSG elevated above 200 mg/dl. * Basal Lantus dose at HS increased for tonight. Continued current Novolog parameters. * Pt will be receiving HD this afternoon. 02/21/21: * BSGs have been relatively well-controlled, with intermittent hyperglycemia. * Gradually tightening carb ratio to provide additional prandial coverage. Background * Sonam is a T2DM with h/o ESRD on HD who presented with closed intertrochanteric fracture of left femur, s/p surgery on 02/16/21 * Basal insulin dose reduced by 50% on admission. Patient tolerated an oral diet with elevated fasting BSG, therefore I will increase Lantus. * Continue current Novolog CF and CR PLAN FOR INPATIENT GLYCEMIC CONTROL: * Hold outpatient oral diabetes medications * Basal insulin: * Lantus 15 units SQ qPM * Bolus insulin: tightened CF/CR * NovoLog per scale ACHS or Q6hrs while NPO * Goal Range: Low 120 mg/dL - High 160 mg/dL * Correction Factor: 15 mg/dL/unit * Nutritional / Prandial insulin per carb ratio of 1 unit per 6 grams CHO consumed PLAN FOR DISCHARGE: * Patient's A1c = 6.5% today. * However, this result is likely somewhat unreliable in ESRD patients d/t interactions between the A1c analyzing technique and high levels of urea in ESRD, reduced RBC life span, iron deficiency anemia, and EPO administration. HbA1c > 7.5% in ESRD patient may overestimate the extent of hyperglycemia in ESRD patients. * Recommend frequent BSG monitoring to guide insulin dose adjustment as outpatient
[2021-02-23] MEDS: IRON SUCROSE 200 MG in 0.9 % SODIUM CHLORIDE 100 ML IV SCH (10:30)
[2021-02-23] MEDS: ACETAMINOPHEN 325 MG TAB PO PRN (14:09)
[2021-02-23] MEDS: hydrALAZINE HCL 20 MG/ML VIAL IV PRN (14:10)
--- NOTE | 2021-02-23 16:53 | Hospitalist Progress Note ---
Date of Service February 23, 2021 Assessment & Plan (1) Closed intertrochanteric fracture of left femur: Plan: Left femur nailing 02/16/2021 Dr. Ly - POD#8 Geriatric hip fracture protocol order set Age-related osteoporosis with current fracture of left femur Dilaudid & Phelan for pain PT is recommending inpatient rehab stay Currently awaiting a bed for placement Continue physical therapy while inpatient (2) Acute blood loss anemia: Plan: Hgb stable after blood transfusion. No need for further transfusion at this stage. No sign, symptom of GI blood loss, FOB pending collection. Epoetin alpha with dialysis Follow serial labs on days with dialysis (3) End-stage renal disease on hemodialysis: Plan: Undergoes dialysis, Friday, Friday and Friday as an outpatient but receiving Friday at [facility] Consult nephrology. Appreciate Dr. Spangler's input (4) Type 2 diabetes mellitus with insulin therapy: Plan: Appreciate pharmacy glycemic management 02/23: Pt received total of 44 units of insulin yesterday; 15 units basal + 29 units bolus Post prandial BSGs trended up during the day to 329 mg/dl at HS. Novolog CF and CR was tightened at HS. Fasting BSG today = 127 mg/dl. Continued the same basal dose. Will further tighten Novolog CF and CR with lunch today (5) Depression: Plan: Continue venlafaxine (6) CAD (coronary artery disease): Plan: CAD/hypertension- Continue amlodipine and isosorbide mononitrate Hemodialysis (7) Hypertension, uncontrolled: Plan: See above Started PRN Hydralazine today Follow vital signs per protocol Plan: Heparin for DVT prevention based upon renal dysfunction - continue as outpatient per orthopedic recommendations Disposition - medically stable for discharge pending placement -awaiting bed Admission and Anticipated Discharge Date Admission Date: February 15, 2021 Subjective Attending: Dr. Marcum Patient doing better today but does complain of malaise. Hemodialysis Friday. Seen in bedside chair today. Tolerating diet. No acute complaints. Review of Systems Review of Systems: All systems reviewed & are unremarkable except as noted in Subjective Physical Exam Physical Exam: GENERAL : No acute distress EYES: No icterus, gaze conjugate NOSE: No evidence of epistaxis MOUTH: No lesions or candidiasis NECK: Supple LUNGS: CTA B/L, no wheezes, rales or rhonchi HEART: Regular, rate controlled ABDOMEN: Soft, NT, ND, BS Present EXTREMITIES: No LE edema, pedal pulses intact NEURO: A&OX3 Results & Data Results & Data ([facility]) Vital Signs (Past 12 Hours) Vital Signs Temp Pulse Resp BP Pulse Ox 02/23/21 14:58 36.7 C 84 18 173/67 H 95 02/23/21 06:29 36.8 C 72 18 198/74 H 95 Laboratory Results 02/23/21 05:48 02/23/21 05:48 Diagnostic Findings No further diagnostics PG Care Time/CCT Total # of Minutes Spent Total Time Spent with Patient: Total time spent is greater than 50% in coordination of care (as documented) at patient's floor/unit and/or counseling patient: Coding Level of Care Code 01102 Subseq Hosp Care Lvl 2 Diagnoses Closed intertrochanteric fracture of left femur S72.142A Encounter type: initial encounter Fracture alignment: displaced Acute blood loss anemia D62 End-stage renal disease on hemodialysis N18.6; Z99.2 Type 2 diabetes mellitus with insulin therapy E11.9; Z79.4 Depression F32.9 CAD (coronary artery disease) I25.10 Hypertension, uncontrolled I10 (1) Closed intertrochanteric fracture of left femur Encounter type: initial encounter Fracture alignment: displaced Qualified Code(s): S72.142A - Displaced intertrochanteric fracture of left femur, initial encounter for closed fracture
[2021-02-23] MEDS: DOCUSATE SODIUM/SENNA 50/8.6MG TAB PO SCH (21:11)
[2021-02-23] MEDS: INSULIN GLARGINE SOLOSTAR 100 UNITS/ML 3 ML PEN SQ SCH (21:13)
[2021-02-24] MEDS ORDERED: HEPARIN SOD (PORCINE) 1000 UNIT/ML IV SCH (07:00)
[2021-02-24] MEDS ORDERED: EPOETIN ALFA 10,000 UNITS/ML VIAL IV SCH (07:00)
[2021-02-24] MEDS ORDERED: HEPARIN SOD (PORCINE) 1000 UNIT/ML IV ONE (07:00)
[2021-02-24] MEDS ORDERED: SODIUM CHLORIDE 0.9% 1000ML 1,000 ML IV PRN (07:00)
[2021-02-24] MEDS: hydrALAZINE HCL 20 MG/ML VIAL IV PRN (08:26)
[2021-02-24] MEDS: ASCORBIC ACID 500 MG TAB PO SCH (08:38)
[2021-02-24] MEDS: amLODIPine BESYLATE 5 MG TAB PO SCH ×2 (08:38→21:45)
[2021-02-24] MEDS: FAMOTIDINE 20 MG TAB PO SCH (08:38)
[2021-02-24] MEDS: CALCIUM 600MG + VIT D 400 IU TAB PO SCH (08:38)
[2021-02-24] MEDS: CHOLECALCIFEROL 1,000 UNITS 25 MCG TAB PO SCH (08:38)
[2021-02-24] MEDS: VENLAFAXINE HCL XR 37.5 MG CAPXR PO SCH (08:38)
[2021-02-24] MEDS: CEROVITE ADV FORMULA TAB PO SCH (08:38)
[2021-02-24] MEDS: ATORVASTATIN 40 MG TAB PO SCH (08:38)
[2021-02-24] MEDS: ISOSORBIDE MONO EXTENDED REL 60 MG TABCR PO SCH (08:38)
[2021-02-24] MEDS: VENLAFAXINE HCL XR 150 MG CAPXR PO SCH (08:38)
[2021-02-24] MEDS: HEPARIN SOD 5,000 UNIT/0.5 ML VIAL SQ SCH ×2 (08:38→21:46)
[2021-02-24] MEDS: INSULIN ASPART 100 UNITS/ML 3 ML PEN SC SCH ×4 (08:56→21:47)
--- NOTE | 2021-02-24 09:54 | Pharmacy Report ---
Pharmacy Glycemic Short Note 2 - Date of Service February 24, 2021 - Glycemic Short BSG Results (Last 24 hours): 02/23/21 02/23/21 02/23/21 12:00 16:50 20:30 POC Glucose 173 H 170 H 190 H 02/24/21 08:18 POC Glucose 175 H OUTPATIENT ANTIDIABETIC REGIMEN: * Basaglar 10 units SQ qPM * Novolog SQ TID (up to 30 units/day) * A1c = 6.5% ASSESSMENT: 02/24/21 * Patient's BSGs yesterday were [phone] mg/dL. Patient received 58 units of insulin (15 units of basal and 43 units of bolus). * Fasting today was 175 mg/dL. * Increase Lantus by 20% to 18 units as fasting has been trending up x 4 days * Tighten CR as BSGs trend upwards through the day. 02/23: * Pt received total of 44 units of insulin yesterday; 15 units basal + 29 units bolus * Post prandial BSGs trended up during the day to 329 mg/dl at HS. Novolog CF and CR was tightened at HS. * Fasting BSG today = 127 mg/dl. Continued the same basal dose. * Will further tighten Novolog CF and CR with lunch today 02/22: * Pt received total of 39 units of insulin yesterday; 10 units basal + 29 units bolus. * Fasting BSG was up to 135 mg/dl this AM. Post prandial BSGs were only slightly above goal yesterday but pre-lunch BSG elevated above 200 mg/dl. * Basal Lantus dose at HS increased for tonight. Continued current Novolog parameters. * Pt will be receiving HD this afternoon. 02/21/21: * BSGs have been relatively well-controlled, with intermittent hyperglycemia. * Gradually tightening carb ratio to provide additional prandial coverage. Background * Sonam is a T2DM with h/o ESRD on HD who presented with closed intertrocha nteric fracture of left femur, s/p surgery on 02/16/21 * Basal insulin dose reduced by 50% on admission. Patient tolerated an oral diet with elevated fasting BSG, therefore I will increase Lantus. * Continue current Novolog CF and CR PLAN FOR INPATIENT GLYCEMIC CONTROL: * Hold outpatient oral diabetes medications * Basal insulin: increased * Lantus 18 units SQ qPM * Bolus insulin: tightened CR * NovoLog per scale ACHS or Q6hrs while NPO * Goal Range: Low 110 mg/dL - High 140 mg/dL * Correction Factor: 15 mg/dL/unit * Nutritional / Prandial insulin per carb ratio of 1 unit per 5 grams CHO consumed PLAN FOR DISCHARGE: * Patient's A1c = 6.5% today. * However, this result is likely somewhat unreliable in ESRD patients d/t interactions between the A1c analyzing technique and high levels of urea in ESRD, reduced RBC life span, iron deficiency anemia, and EPO administration. HbA1c > 7.5% in ESRD patient may overestimate the extent of hyperglycemia in ESRD patients. * Recommend frequent BSG monitoring to guide insulin dose adjustment as outpatient
--- NOTE | 2021-02-24 12:01 | Nephrology Progress Note ---
Date of Service February 24, 2021 Assessment & Plan (1) End-stage renal disease on hemodialysis: (2) Fall: (3) Acute blood loss anemia: Plan: End-stage renal disease, on hemodialysis via IJ tunneled dialysis catheter. Admitted after fall at home and fracture left femur, status post surgical intervention. Overall recovering well from the surgery, denies any pain. -- Tolerating dialysis as her regular schedule. IJ tunneled dialysis catheter function well. -- Received Epogen 36024 units with dialysis today, getting IV Venofer. -- Dose medications for GFR less than 10, avoid IV fluid, left arm nephrology precaution. Will follow Admission and Anticipated Discharge Date Admission Date: February 15, 2021 Jason Masters was seen and examined during hemodialysis this morning. She has been tolerating dialysis well. Denies any pain at recent surgical site. No shortness of breath or chest pain. Blood pressure well controlled. Tolerating ultrafiltration. Appetite has been fair. Review of Systems Review of Systems: Detailed review of system was otherwise unremarkable. Physical Exam Constitutional: well developed and well nourished; no acute distress Respiratory: normal respiratory effort, lungs clear to auscultation Cardiovascular: RRR, no murmur, no edema Right IJ tunneled dialysis catheter, functioning well, no erythema or active bleeding. Neurologic: moves all extremities and awake; not confused Psychiatric: A+Ox3, euthymic affect Results & Data ([facility]) Vital Signs (Past 12 Hours) Vital Signs Temp Pulse Pulse Pulse Pulse Resp BP 02/24/21 11:40 79 113/57 L 02/24/21 11:20 80 108/52 L 02/24/21 11:00 78 102/52 L 02/24/21 10:40 82 102/57 L 02/24/21 10:20 78 114/54 L 02/24/21 10:00 79 110/49 L 02/24/21 09:40 82 116/61 02/24/21 09:20 79 159/60 H 02/24/21 09:17 36.8 C 86 02/24/21 08:45 36.8 C 76 16 02/24/21 08:33 02/24/21 08:12 36.7 C 83 16 BP Pulse Ox 02/24/21 11:40 02/24/21 11:20 02/24/21 11:00 02/24/21 10:40 02/24/21 10:20 02/24/21 10:00 02/24/21 09:40 02/24/21 09:20 02/24/21 09:17 02/24/21 08:45 197/71 H 92 02/24/21 08:33 203/65 H 02/24/21 08:12 202/62 H 94 PG Care Time/CCT Total # of Minutes Spent Total Time Spent with Patient: Total time spent is greater than 50% in coordination of care (as documented) at patient's floor/unit and/or counseling patient: Coding Level of Care Code 87039 Subseq Hosp Care Lvl 2 Diagnoses End-stage renal disease on hemodialysis N18.6; Z99.2 Fall W19.XXXA Encounter type: initial encounter Acute blood loss anemia D62 (1) Fall Encounter type: initial encounter Qualified Code(s): W19.XXXA - Unspecified fall, initial encounter
[2021-02-24] MEDS: MAGNESIUM HYDROXIDE SUSP 30 ML UDC PO PRN (13:55)
[2021-02-24] MEDS: IRON SUCROSE 200 MG in 0.9 % SODIUM CHLORIDE 100 ML IV SCH (14:10)
--- NOTE | 2021-02-24 18:04 | Hospitalist Progress Note ---
Date of Service February 24, 2021 Assessment & Plan (1) Closed intertrochanteric fracture of left femur: Plan: Left femur nailing 02/16/2021 Dr. Ly - POD#9 Geriatric hip fracture protocol order set Age-related osteoporosis with current fracture of left femur Navdeep & Radha for pain PT is recommending inpatient rehab stay Currently awaiting a bed for placement Continue physical therapy while inpatient Out of bed to chair as tolerated (2) Acute blood loss anemia: Plan: Hgb stable after blood transfusion. No need for further transfusion at this stage. No sign, symptom of GI blood loss, FOB pending collection. Epoetin alpha with dialysis Follow serial labs on days with dialysis (3) End-stage renal disease on hemodialysis: Plan: Undergoes dialysis, Friday, Friday and Friday as an outpatient but receiving Friday at [facility] Bed available in [place] on Friday or Friday. Would like to consider inpatient dialysis on Friday so that she can recover that day and be discharged on Friday. Consult nephrology. Appreciate Dr. Spangler's input (4) Type 2 diabetes mellitus with insulin therapy: Plan: Appreciate pharmacy glycemic management 02/24/21 Patient's BSGs yesterday were [phone] mg/dL. Patient received 58 units of insulin (15 units of basal and 43 units of bolus). Fasting today was 175 mg/dL. Increase Lantus by 20% to 18 units as fasting has been trending up x 4 days Tighten CR as BSGs trend upwards through the day. (5) Depression: Plan: Continue venlafaxine (6) CAD (coronary artery disease): Plan: CAD/hypertension- Continue amlodipine and isosorbide mononitrate Hemodialysis (7) Hypertension, uncontrolled: Plan: See above Started PRN Hydralazine. Continue as needed for SBP greater than 180 Follow vital signs per protocol Plan: Heparin for DVT prevention based upon renal dysfunction - continue as outpatient per orthopedic recommendations Disposition - medically stable for discharge pending placement -awaiting bed Admission and Anticipated Discharge Date Admission Date: February 15, 2021 Subjective Attending: Dr. Marcum Mrs. Bolivar is doing quite well. She was seen immediately after dialysis today and is tired but otherwise feeling well. She does complain of some constipation. She typically uses milk of magnesia at home. This is been ordered as needed but has not been administered. Patient would like to receive this in hopes that she would have a bowel movement today. She has no fever or chills. She is tolerating meals well. She has no other acute complaints. Review of Systems Review of Systems: All systems reviewed & are unremarkable except as noted in Subjective Physical Exam Physical Exam: GENERAL : No acute distress EYES: No icterus, gaze conjugate NOSE: No evidence of epistaxis MOUTH: No lesions or candidiasis NECK: Supple LUNGS: CTA B/L, no wheezes, rales or rhonchi HEART: Regular, rate controlled ABDOMEN: Soft, NT, ND, BS Present. No pain with palpation. No guarding. EXTREMITIES: No LE edema, pedal pulses intact NEURO: A&OX3 Results & Data Results & Data ([facility]) Vital Signs (Past 12 Hours) Vital Signs Temp Pulse Pulse Pulse Pulse Resp BP 02/24/21 14:44 37.2 C 90 16 02/24/21 14:21 36.9 C 90 16 02/24/21 14:08 37.4 C 93 H 12 02/24/21 13:09 36.8 C 77 02/24/21 12:22 77 108/49 L 02/24/21 12:03 78 122/56 L 02/24/21 11:40 79 113/57 L 02/24/21 11:20 80 108/52 L 02/24/21 11:00 78 102/52 L 02/24/21 10:40 82 102/57 L 02/24/21 10:20 78 114/54 L 02/24/21 10:00 79 110/49 L 02/24/21 09:40 82 116/61 02/24/21 09:20 79 159/60 H 02/24/21 09:17 36.8 C 86 02/24/21 08:45 36.8 C 76 16 02/24/21 08:33 02/24/21 08:12 36.7 C 83 16 BP Pulse Ox 02/24/21 14:44 155/71 H 91 02/24/21 14:21 166/71 H 92 02/24/21 14:08 162/71 H 92 02/24/21 13:09 127/51 L 02/24/21 12:22 02/24/21 12:03 02/24/21 11:40 02/24/21 11:20 02/24/21 11:00 02/24/21 10:40 02/24/21 10:20 02/24/21 10:00 02/24/21 09:40 02/24/21 09:20 02/24/21 09:17 02/24/21 08:45 197/71 H 92 02/24/21 08:33 203/65 H 02/24/21 08:12 202/62 H 94 Laboratory Results 02/23/21 05:48 02/23/21 05:48 Diagnostic Findings No further diagnostics PG Care Time/CCT Total # of Minutes Spent Total Time Spent with Patient: Total time spent is greater than 50% in nursing staffing coordinator rdination of care (as documented) at patient's floor/unit and/or counseling patient: 20 minutes Coding Level of Care Code 00934 Subseq Hosp Care Lvl 2 Diagnoses Closed intertrochanteric fracture of left femur S72.142A Encounter type: initial encounter Fracture alignment: displaced Acute blood loss anemia D62 End-stage renal disease on hemodialysis N18.6; Z99.2 Type 2 diabetes mellitus with insulin therapy E11.9; Z79.4 Depression F32.9 CAD (coronary artery disease) I25.10 Hypertension, uncontrolled I10 Time Spent (min) 20 (1) Closed intertrochanteric fracture of left femur Encounter type: initial encounter Fracture alignment: displaced Qualified Code(s): S72.142A - Displaced intertrochanteric fracture of left femur, initial encounter for closed fracture
[2021-02-24] MEDS: INSULIN GLARGINE SOLOSTAR 100 UNITS/ML 3 ML PEN SQ SCH (21:48)
[2021-02-24] MEDS: DOCUSATE SODIUM/SENNA 50/8.6MG TAB PO SCH (21:50)
[2021-02-25] MEDS: hydrALAZINE HCL 20 MG/ML VIAL IV PRN ×2 (01:04→07:31)
[2021-02-25] MEDS: ATORVASTATIN 40 MG TAB PO SCH (09:48)
[2021-02-25] MEDS: amLODIPine BESYLATE 5 MG TAB PO SCH ×2 (09:48→20:34)
[2021-02-25] MEDS: ASCORBIC ACID 500 MG TAB PO SCH (09:48)
[2021-02-25] MEDS: ISOSORBIDE MONO EXTENDED REL 60 MG TABCR PO SCH (09:49)
[2021-02-25] MEDS: CALCIUM 600MG + VIT D 400 IU TAB PO SCH (09:49)
[2021-02-25] MEDS: VENLAFAXINE HCL XR 150 MG CAPXR PO SCH (09:50)
[2021-02-25] MEDS: VENLAFAXINE HCL XR 37.5 MG CAPXR PO SCH (09:50)
[2021-02-25] MEDS: CEROVITE ADV FORMULA TAB PO SCH (09:50)
[2021-02-25] MEDS: MAGNESIUM HYDROXIDE SUSP 30 ML UDC PO PRN (09:52)
[2021-02-25] MEDS: FAMOTIDINE 20 MG TAB PO SCH (09:52)
[2021-02-25] MEDS: INSULIN ASPART 100 UNITS/ML 3 ML PEN SC SCH ×4 (09:54→21:04)
[2021-02-25] MEDS: HEPARIN SOD 5,000 UNIT/0.5 ML VIAL SQ SCH ×2 (09:55→20:34)
[2021-02-25] MEDS: IRON SUCROSE 200 MG in 0.9 % SODIUM CHLORIDE 100 ML IV SCH (10:03)
--- NOTE | 2021-02-25 12:01 | Nephrology Progress Note ---
Date of Service February 25, 2021 Assessment & Plan (1) End-stage renal disease on hemodialysis: (2) Fall: (3) Acute blood loss anemia: Plan: End-stage renal disease, on hemodialysis via IJ tunneled dialysis catheter. Admitted after fall at home and fracture left femur, status post surgical intervention. Overall recovering well from the surgery, denies any pain. Had dialysis yesterday, IJ tunneled dialysis catheter has been functioning well, left radiocephalic AV fistula Waiting to be used. blood pressure has been running high -- start on hydralazine 50 mg t.i.d. -- Received Epogen 31925 units with dialysis,, getting IV Venofer. -- Dose medications for GFR less than 10, avoid IV fluid, left arm nephrology precaution. Will follow Admission and Anticipated Discharge Date Admission Date: February 15, 2021 Jason Masters was seen and examined this morning. Denies any pain, shortness of breath or chest pain. Blood pressure has been elevated. Appetite has been fair. Review of Systems Review of Systems: Detailed review of system was otherwise unremarkable. Physical Exam Constitutional: well developed and well nourished; no acute distress Respiratory: normal respiratory effort, lungs clear to auscultation Cardiovascular: RRR, no murmur, no edema Neurologic: moves all extremities and awake; not confused Psychiatric: A+Ox3, euthymic affect Results & Data ([facility]) Vital Signs (Past 12 Hours) Vital Signs Temp Pulse Pulse Pulse Pulse Resp BP 02/25/21 11:24 36.5 C 84 16 138/80 02/25/21 11:04 36.8 C 80 16 169/64 H 02/25/21 09:46 36.6 C 79 18 189/67 H 02/25/21 08:06 193/68 H 02/25/21 08:05 36.7 C 79 16 207/69 H 02/25/21 06:03 195/69 H 02/25/21 01:01 76 185/66 H 02/25/21 00:20 36.8 C 77 18 187/65 H Pulse Ox 02/25/21 11:24 94 02/25/21 11:04 94 02/25/21 09:46 93 02/25/21 08:06 02/25/21 08:05 94 02/25/21 06:03 02/25/21 01:01 02/25/21 00:20 95 PG Care Time/CCT Total # of Minutes Spent Total Time Spent with Patient: Total time spent is greater than 50% in coordination of care (as documented) at patient's floor/unit and/or counseling patient: Coding Level of Care Code 19393 Subseq Hosp Care Lvl 2 Diagnoses End-stage renal disease on hemodialysis N18.6; Z99.2 Fall W19.XXXA Encounter type: initial encounter Acute blood loss anemia D62 (1) Fall Encounter type: initial encounter Qualified Code(s): W19.XXXA - Unspecified fall, initial encounter
[2021-02-25] MEDS: hydrALAZINE TAB 50 MG TAB PO SCH ×2 (14:29→20:34)
[2021-02-25] MEDS: ACETAMINOPHEN 325 MG TAB PO PRN (17:20)
--- NOTE | 2021-02-25 18:45 | Hospitalist Progress Note ---
Date of Service February 25, 2021 Assessment & Plan (1) Closed intertrochanteric fracture of left femur: Plan: Left femur nailing 02/16/2021 Dr. Ly - POD#10 Geriatric hip fracture protocol order set Age-related osteoporosis with current fracture of left femur Navdeep & Radha for pain PT is recommending inpatient rehab stay Currently awaiting a bed for placement Continue physical therapy while inpatient Out of bed to chair as tolerated (2) Acute blood loss anemia: Plan: Hgb stable after blood transfusion. No need for further transfusion at this stage. No sign, symptom of GI blood loss, FOB pending collection. Epoetin alpha with dialysis per nephrology Follow serial labs on days with dialysis (3) End-stage renal disease on hemodialysis: Plan: Undergoes dialysis, Friday, Friday and Friday as an outpatient but receiving Friday at [facility] Bed available in [place] on Friday or Friday. Would like to consider inpatient dialysis on Friday so that she can recover that day and be discharged on Friday. Consult nephrology. Appreciate Dr. Spangler's input (4) Type 2 diabetes mellitus with insulin therapy: Plan: Appreciate pharmacy glycemic management 02/24/21 Patient's BSGs yesterday were [phone] mg/dL. Patient received 58 units of insulin (15 units of basal and 43 units of bolus). Fasting today was 175 mg/dL. Increase Lantus by 20% to 18 units as fasting has been trending up x 4 days Tighten CR as BSGs trend upwards through the day. No changes noted on 02/25/2021 (5) Depression: Plan: Continue venlafaxine (6) CAD (coronary artery disease): Plan: CAD/hypertension- Continue amlodipine and isosorbide mononitrate Hemodialysis (7) Hypertension, uncontrolled: Plan: See above Started PRN Hydralazine. Continue as needed for SBP greater than 180 Follow vital signs per protocol Plan: Heparin for DVT prevention based upon renal dysfunction - continue as outpatient per orthopedic recommendations Disposition - medically stable for discharge pending placement -awaiting bed Admission and Anticipated Discharge Date Admission Date: February 15, 2021 Subjective Attending: Dr. Marcum Patient seen and examined the room. Blood pressure was high at systolic pressure of 207. Patient was given hydralazine. She had some response but continued to have a systolic pressure of approxione 78. Patient no chest pain or tightness. She had no nausea or vomiting. She did report that she felt constipated and that often times her blood pressure went up when she was constipated. She was given milk of magnesia resulting in a small bowel movement. Communication order was given for disimpaction. Patient no other acute complaints. Review of Systems Review of Systems: All systems reviewed & are unremarkable except as noted in Subjective Physical Exam Physical Exam: GENERAL : No acute distress EYES: No icterus, gaze conjugate NOSE: No evidence of epistaxis MOUTH: No lesions or candidiasis NECK: Supple LUNGS: CTA B/L, no wheezes, rales or rhonchi HEART: Regular, rate controlled ABDOMEN: Soft, NT, ND, BS Present EXTREMITIES: No LE edema, pedal pulses intact NEURO: A&OX3 Results & Data Results & Data ([facility]) Vital Signs (Past 12 Hours) Vital Signs Temp Pulse Pulse Resp BP Pulse Ox 02/25/21 16:27 36.7 C 76 16 174/63 H 93 02/25/21 14:28 163/67 H 02/25/21 11:24 36.5 C 84 16 138/80 94 02/25/21 11:04 36.8 C 80 16 169/64 H 94 02/25/21 09:46 36.6 C 79 18 189/67 H 93 02/25/21 08:06 193/68 H 02/25/21 08:05 36.7 C 79 16 207/69 H 94 Laboratory Results 02/23/21 05:48 02/23/21 05:48 Diagnostic Findings No further diagnostics PG Care Time/CCT Total # of Minutes Spent Total Time Spent with Patient: Total time spent is greater than 50% in coordination of care (as documented) at patient's floor/unit and/or counseling patient: 25 minutes Coding Level of Care Code 53114 Subseq Hosp Care Lvl 2 Diagnoses Closed intertrochanteric fracture of left femur S72.142A Encounter type: initial encounter Fracture alignment: displaced Acute blood loss anemia D62 End-stage renal disease on hemodialysis N18.6; Z99.2 Type 2 diabetes mellitus with insulin therapy E11.9; Z79.4 Depression F32.9 CAD (coronary artery disease) I25.10 Hypertension, uncontrolled I10 Time Spent (min) 25 (1) Closed intertrochanteric fracture of left femur Encounter type: initial encounter Fracture alignment: displaced Qualified Code(s): S72.142A - Displaced intertrochanteric fracture of left femur, initial encounter for closed fracture
[2021-02-25] MEDS: DOCUSATE SODIUM/SENNA 50/8.6MG TAB PO SCH (20:34)
[2021-02-25] MEDS: INSULIN GLARGINE SOLOSTAR 100 UNITS/ML 3 ML PEN SQ SCH (21:05)
[2021-02-26 06:37] LABS: Hematocrit (blood only) 30.5 % (37-47); Hemoglobin 9.3 g/dL (12.0-16.0); Mean Corpuscular Hemoglobin 27.9 pg (25-34); Mean Corpuscular Hgb Conc 30.5 g/dL (32-36); Mean Corpuscular Volume 91.6 fL (80-100); Mean Platelet Volume 8.9 fL (7.4-10.4); Platelet Count 268 K/uL (130-400); RDW Coefficient of Variation 17.6 % (11.5-14.5); RDW Standard Deviation 57.4 fL (36.4-46.3); Red Blood Count 3.33 M/uL (4.2-5.4); White Blood Count 9.23 K/uL (4.8-10.8)
[2021-02-26 07:07] LABS: Albumin Level 2.2 gm/dl (3.4-5.0); BUN Creatinine Ratio 12.9 (10-20); Creatinine Clr Calc Pharmacy 13.4 ml/min; Est GFR (African American) 12.1 ml/min; Est GFR (Non-African American) 10.4 ml/min; Phosphorus 2.7 mg/dl (2.5-4.9); Potassium 4.8 mmol/L (3.5-5.1)
[2021-02-26] MEDS: hydrALAZINE HCL 20 MG/ML VIAL IV PRN (08:03)
[2021-02-26] MEDS: INSULIN ASPART 100 UNITS/ML 3 ML PEN SC SCH ×5 (08:58→21:41)
[2021-02-26] MEDS: HEPARIN SOD 5,000 UNIT/0.5 ML VIAL SQ SCH ×2 (09:00→21:39)
[2021-02-26] MEDS: hydrALAZINE TAB 50 MG TAB PO SCH ×3 (09:00→21:40)
[2021-02-26] MEDS: CEROVITE ADV FORMULA TAB PO SCH (09:01)
[2021-02-26] MEDS: ASCORBIC ACID 500 MG TAB PO SCH (09:01)
[2021-02-26] MEDS: VENLAFAXINE HCL XR 150 MG CAPXR PO SCH (09:01)
[2021-02-26] MEDS: amLODIPine BESYLATE 5 MG TAB PO SCH ×2 (09:01→21:38)
[2021-02-26] MEDS: ATORVASTATIN 40 MG TAB PO SCH (09:01)
[2021-02-26] MEDS: VENLAFAXINE HCL XR 37.5 MG CAPXR PO SCH (09:01)
[2021-02-26] MEDS: ISOSORBIDE MONO EXTENDED REL 60 MG TABCR PO SCH (09:02)
[2021-02-26] MEDS: CALCIUM 600MG + VIT D 400 IU TAB PO SCH (09:02)
[2021-02-26] MEDS: IRON SUCROSE 200 MG in 0.9 % SODIUM CHLORIDE 100 ML IV SCH (09:16)
[2021-02-26] MEDS: CHOLECALCIFEROL 1,000 UNITS 25 MCG TAB PO SCH ×2 (09:53→21:39)
[2021-02-26] MEDS: FAMOTIDINE 20 MG TAB PO SCH (09:53)
[2021-02-26] MEDS: MAGNESIUM HYDROXIDE SUSP 30 ML UDC PO PRN (10:03)
--- NOTE | 2021-02-26 10:07 | Nephrology Progress Note ---
Date of Service February 26, 2021 Assessment & Plan (1) End-stage renal disease on hemodialysis: (2) Fall: (3) Acute blood loss anemia: Plan: End-stage renal disease, on hemodialysis via IJ tunneled dialysis catheter. Admitted after fall at home and fracture left femur, status post surgical intervention. Overall recovering well from the surgery, denies any pain. Had dialysis yesterday, IJ tunneled dialysis catheter has been functioning well, left radiocephalic AV fistula Waiting to be used. blood pressure has been running high -- HD today, on hydralazine 50 mg t.i.d. -- Received Epogen 60069 units with dialysis,, getting IV Venofer. -- Dose medications for GFR less than 10, avoid IV fluid, left arm nephrology precaution. Will follow Admission and Anticipated Discharge Date Admission Date: February 15, 2021 Jason Masters was seen and examined this morning. Denies any pain, shortness of breath or chest pain. Blood pressure has been elevated, hydralazine was added. Appetite has been fair. Review of Systems Review of Systems: Detailed review of system was otherwise unremarkable. Physical Exam Constitutional: well developed and well nourished; no acute distress Respiratory: normal respiratory effort, lungs clear to auscultation Cardiovascular: RRR, no murmur, no edema Neurologic: moves all extremities and awake; not confused Psychiatric: A+Ox3, euthymic affect Results & Data ([facility]) Vital Signs (Past 12 Hours) Vital Signs Temp Pulse Resp BP Pulse Ox 02/26/21 07:43 36.7 C 77 16 206/68 H 94 02/25/21 22:40 36.9 C 68 18 178/61 H 91 PG Care Time/CCT Total # of Minutes Spent Total Time Spent with Patient: Total time spent is greater than 50% in coordination of care (as documented) at patient's floor/unit and/or counseling patient: Coding Level of Care Code 58712 Subseq Hosp Care Lvl 2 Diagnoses End-stage renal disease on hemodialysis N18.6; Z99.2 Fall W19.XXXA Encounter type: initial encounter Acute blood loss anemia D62 (1) Fall Encounter type: initial encounter Qualified Code(s): W19.XXXA - Unspecified fall, initial encounter
[2021-02-26] MEDS: ACETAMINOPHEN 325 MG TAB PO PRN ×2 (12:02→21:44)
--- NOTE | 2021-02-26 20:08 | Hospitalist Progress Note ---
Date of Service February 26, 2021 Assessment & Plan (1) Closed intertrochanteric fracture of left femur: Plan: Left femur nailing 02/16/2021 Dr. Ly Geriatric hip fracture protocol order set Age-related osteoporosis with current fracture of left femur Navdeep & Radha for pain PT is recommending inpatient rehab stay Currently awaiting a bed for placement Continue physical therapy while inpatient Out of bed to chair as tolerated (2) Acute blood loss anemia: Plan: Hgb stable after blood transfusion. No need for further transfusion at this stage. No sign, symptom of GI blood loss, FOB pending collection. Epoetin alpha with dialysis per nephrology Follow serial labs on days with dialysis (3) End-stage renal disease on hemodialysis: Plan: Undergoes dialysis, Friday, Friday and Friday as an outpatient but receiving Friday at [facility] Bed available in [place] on Friday or Friday. Would like to consider inpatient dialysis on Friday so that she can recover that day and be discharged on Friday. Consult nephrology. Appreciate Dr. Spangler's input (4) Type 2 diabetes mellitus with insulin therapy: Plan: Appreciate glycemic pharmacy management of basal bolus insulin (5) Depression: Plan: Continue venlafaxine (6) CAD (coronary artery disease): Plan: CAD/hypertension- Continue amlodipine and isosorbide mononitrate Hemodialysis (7) Hypertension, uncontrolled: Plan: See above Started PRN Hydralazine. Continue as needed for SBP greater than 180 Follow vital signs per protocol Plan: Heparin for DVT prevention based upon renal dysfunction - continue as outpatient per orthopedic recommendations Disposition - medically stable for discharge pending placement -awaiting bed Admission and Anticipated Discharge Date Admission Date: February 15, 2021 Jason Masters was seen and examined she is good good pain control at the surgical site she is awaiting dialysis for eventual placement to rehab Review of Systems Review of Systems: Mild distress and fatigue no headache, no visual changes no speech or swallowing issues no chest pain, pressure or palpitations no shortness of breath, cough or wheezes no abdominal pain, does have mild nausea without vomiting, diarrhea or constipation no dysuria, hematuria or frequency Currently denies postoperative left hip pain no back pain, CVA tenderness or radicular pain no bruising, bleeding or rashes she does appear pale the visual inspection no focal signs of weakness or numbness or altered sensation no complaints of anxiety or depression.. Physical Exam Physical Exam: The patient appeared well nourished and normally developed. Vital signs as documented. Head exam is normocephalic atraumatic Neck is with subtle JVD, thyromegaly, or carotid bruits. Lungs are clear to auscultation, decreased at the bases, no focal loss of breath sounds Cardiac exam, Rhythm is regular.. Systolic ejection murmur Abdominal exam reveals normal bowel sounds, soft non tender, no masses Extremities are nonedematous and both pedal pulses are present Neurologic exam is alert and oriented, no focal loss of sensation Psychologically is without concerns for anxiety or depression Results & Data Results & Data ([facility]) Vital Signs (Past 12 Hours) Vital Signs Temp Pulse Pulse Pulse Resp BP BP 02/26/21 18:34 98.8 F 85 16 135/61 02/26/21 17:53 98.1 F 87 102/47 L 02/26/21 17:52 92 H 95/52 L 02/26/21 17:20 91 H 95/48 L 02/26/21 17:00 83 109/57 L 02/26/21 16:40 87 92/55 L 02/26/21 16:20 84 100/58 L 02/26/21 16:00 56 L 105/50 L 02/26/21 15:40 82 98/53 L 02/26/21 15:20 61 96/50 L 02/26/21 15:00 74 112/53 L 02/26/21 14:46 73 165/60 H 02/26/21 14:40 98.1 F 70 02/26/21 14:34 76 158/61 H Pulse Ox 02/26/21 18:34 94 02/26/21 17:53 02/26/21 17:52 02/26/21 17:20 02/26/21 17:00 02/26/21 16:40 02/26/21 16:20 02/26/21 16:00 02/26/21 15:40 02/26/21 15:20 02/26/21 15:00 02/26/21 14:46 02/26/21 14:40 02/26/21 14:34 PG Care Time/CCT Total # of Minutes Spent Total Time Spent with Patient: Total time spent is greater than 50% in coordination of care (as documented) at patient's floor/unit and/or counseling patient: Coding Level of Care Code 55793 Subseq Hosp Care Lvl 1 Diagnoses Closed intertrochanteric fracture of left femur S72.142A Encounter type: initial encounter Fracture alignment: displaced Acute blood loss anemia D62 End-stage renal disease on hemodialysis N18.6; Z99.2 Type 2 diabetes mellitus with insulin therapy E11.9; Z79.4 Depression F32.9 CAD (coronary artery disease) I25.10 Hypertension, uncontrolled I10 (1) Closed intertrochanteric fracture of left femur Encounter type: initial encounter Fracture alignment: displaced Qualified Code(s): S72.142A - Displaced intertrochanteric fracture of left femur, initial encounter for closed fracture
[2021-02-26] MEDS: INSULIN GLARGINE SOLOSTAR 100 UNITS/ML 3 ML PEN SQ SCH (21:42)
[2021-02-26] MEDS: DOCUSATE SODIUM/SENNA 50/8.6MG TAB PO SCH (21:44)
[2021-02-27 06:45] LABS: Basophils # (auto) 0.06 K/uL (0-0.2); Basophils % (auto) 0.7 %; Eosinophils # (auto) 0.78 K/uL (0-0.5); Eosinophils % (auto) 8.7 %; Hematocrit (blood only) 31.2 % (37-47); Hemoglobin 9.4 g/dL (12.0-16.0); Immature Granulocytes # (auto) 0.23 K/uL (0.00-0.02); Immature Granulocytes % (auto) 2.6 %; Lymphocytes # (auto) 1.79 K/uL (1.2-3.4); Lymphocytes % (auto) 19.9 %; Mean Corpuscular Hgb Conc 30.1 g/dL (32-36); Mean Corpuscular Volume 92.9 fL (80-100); Mean Platelet Volume 8.7 fL (7.4-10.4); Monocytes # (auto) 1.05 K/uL (0.11-0.59); Monocytes % (auto) 11.7 %; Neutrophils # (auto) 5.09 K/uL (1.4-6.5); Neutrophils % (auto) 56.4 %; Platelet Count 219 K/uL (130-400); RDW Coefficient of Variation 18.7 % (11.5-14.5); RDW Standard Deviation 58.6 fL (36.4-46.3); Red Blood Count 3.36 M/uL (4.2-5.4)
[2021-02-27] MEDS: ASCORBIC ACID 500 MG TAB PO SCH (08:56)
[2021-02-27] MEDS: amLODIPine BESYLATE 5 MG TAB PO SCH ×2 (08:56→21:27)
[2021-02-27] MEDS: ATORVASTATIN 40 MG TAB PO SCH (08:56)
[2021-02-27] MEDS: CHOLECALCIFEROL 1,000 UNITS 25 MCG TAB PO SCH ×2 (09:00→21:27)
[2021-02-27] MEDS: CALCIUM 600MG + VIT D 400 IU TAB PO SCH (09:00)
[2021-02-27] MEDS: HEPARIN SOD 5,000 UNIT/0.5 ML VIAL SQ SCH ×2 (09:02→21:28)
[2021-02-27] MEDS: hydrALAZINE TAB 50 MG TAB PO SCH ×3 (09:04→21:28)
[2021-02-27] MEDS: ISOSORBIDE MONO EXTENDED REL 60 MG TABCR PO SCH (09:05)
[2021-02-27] MEDS: CEROVITE ADV FORMULA TAB PO SCH (09:06)
[2021-02-27] MEDS: VENLAFAXINE HCL XR 37.5 MG CAPXR PO SCH (09:06)
[2021-02-27] MEDS: VENLAFAXINE HCL XR 150 MG CAPXR PO SCH (09:07)
--- NOTE | 2021-02-27 09:20 | Pharmacy Report ---
Pharmacy Glycemic Short Note 2 - Date of Service February 27, 2021 - Glycemic Short BSG Results (Last 24 hours): 02/26/21 02/26/21 02/26/21 12:16 18:11 20:28 POC Glucose 118 H 78 138 H 02/27/21 07:53 POC Glucose 91 OUTPATIENT ANTIDIABETIC REGIMEN: * Basaglar 10 units SQ qPM * Novolog SQ TID (up to 30 units/day) * A1c = 6.5% ASSESSMENT: 02/27/21 * BSGs remain well-controlled, ranging 78-138 mg/dL yesterday * 50/50 basal/bolus split yesterday, 36 units total * Fasting BSG of 91 mg/dL this morning * Do not anticipate need for changes today 02/24/21 * Patient's BSGs yesterday were [phone] mg/dL. Patient received 58 units of insulin (15 units of basal and 43 units of bolus). * Fasting today was 175 mg/dL. * Increase Lantus by 20% to 18 units as fasting has been trending up x 4 days * Tighten CR as BSGs trend upwards through the day. Background * Sonam is a T2DM with h/o ESRD on HD who presented with closed intertrochanteric fracture of left femur, s/p surgery on 02/16/21 * Basal insulin dose reduced by 50% on admission. Patient tolerated an oral diet with elevated fasting BSG, therefore I will increase Lantus. * Continue current Novolog CF and CR PLAN FOR INPATIENT GLYCEMIC CONTROL: * Basal insulin: continue * Lantus 18 units SQ qPM * Bolus insulin: continue * NovoLog per scale ACHS or Q6hrs while NPO * Goal Range: Low 110 mg/dL - High 140 mg/dL * Correction Factor: 15 mg/dL/unit * Nutritional / Prandial insulin per carb ratio of 1 unit per 5 grams CHO consumed PLAN FOR DISCHARGE: * Patient's A1c = 6.5% today. * However, this result is likely somewhat unreliable in ESRD patients d/t interactions between the A1c analyzing technique and high levels of urea in ESRD, reduced RBC life span, iron deficiency anemia, and EPO administration. HbA1c > 7.5% in ESRD patient may overestimate the extent of hyperglycemia in ESRD patients. * Recommend frequent BSG monitoring to guide insulin dose adjustment as outpatient
[2021-02-27] MEDS: INSULIN ASPART 100 UNITS/ML 3 ML PEN SC SCH ×4 (09:29→21:29)
[2021-02-27] MEDS: IRON SUCROSE 200 MG in 0.9 % SODIUM CHLORIDE 100 ML IV SCH ×2 (09:31→16:13)
--- NOTE | 2021-02-27 10:30 | Nephrology Progress Note ---
Date of Service February 27, 2021 Assessment & Plan (1) End-stage renal disease on hemodialysis: (2) Fall: (3) Acute blood loss anemia: Plan: End-stage renal disease, on hemodialysis via IJ tunneled dialysis catheter. Admitted after fall at home and fracture left femur, status post surgical intervention. Overall recovering well from the surgery, denies any pain. Had dialysis yesterday, IJ tunneled dialysis catheter has been functioning well, left radiocephalic AV fistula waiting to be used. blood pressure has been Variable but asymptomatic. -- on hydralazine 50 mg t.i.d. -- Received Epogen 70482 units with dialysis,, getting IV Venofer. -- Dose medications for GFR less than 10, avoid IV fluid, left arm nephrology precaution. -- Okay to be discharged when rehab bed available. Will follow Admission and Anticipated Discharge Date Admission Date: February 15, 2021 Jason Masters was seen and examined this morning. Denies any pain, shortness of breath or chest pain. Blood pressure has been widely variable, asymptomatic. Appetite has been fair. Review of Systems Review of Systems: Detailed review of system was otherwise unremarkable. Physical Exam Constitutional: well developed and well nourished; no acute distress Respiratory: normal respiratory effort, lungs clear to auscultation Cardiovascular: RRR, no murmur, no edema Neurologic: moves all extremities and awake; not confused Psychiatric: A+Ox3, euthymic affect Results & Data ([facility]) Vital Signs (Past 12 Hours) Vital Signs Temp Pulse Resp BP Pulse Ox 02/27/21 07:59 36.7 C 78 16 181/65 H 95 PG Care Time/CCT Total # of Minutes Spent Total Time Spent with Patient: Total time spent is greater than 50% in coordination of care (as documented) at patient's floor/unit and/or counseling patient: Coding Level of Care Code 14508 Subseq Hosp Care Lvl 2 Diagnoses End-stage renal disease on hemodialysis N18.6; Z99.2 Fall W19.XXXA Encounter type: initial encounter Acute blood loss anemia D62 (1) Fall Encounter type: initial encounter Qualified Code(s): W19.XXXA - Unspecified fall, initial encounter
[2021-02-27] MEDS: FAMOTIDINE 20 MG TAB PO SCH (14:41)
--- NOTE | 2021-02-27 17:33 | Hospitalist Progress Note ---
Date of Service February 27, 2021 Assessment & Plan (1) Closed intertrochanteric fracture of left femur: Plan: Left femur nailing 02/16/2021 Dr. Ly Geriatric hip fracture protocol order set Age-related osteoporosis with current fracture of left femur PT is recommending inpatient rehab stay Currently awaiting a bed for placement Continue physical therapy while inpatient Out of bed to chair as tolerated (2) Acute blood loss anemia: Plan: Hgb stable after 1 unit blood transfusion. No need for further transfusion at this stage. No sign, symptom of GI blood loss, chronic anemia managed by dialysis Epoetin alpha with dialysis per nephrology Follow serial labs on days with dialysis (3) End-stage renal disease on hemodialysis: Plan: Undergoes dialysis, Friday, Friday and Friday as an outpatient but receiving Friday at [facility] Consult nephrology. Appreciate Dr. Spangler's input (4) Type 2 diabetes mellitus with insulin therapy: Plan: Appreciate glycemic pharmacy management of basal bolus insulin (5) Depression: Plan: Continue venlafaxine (6) CAD (coronary artery disease): Plan: CAD/hypertension- Continue amlodipine and isosorbide mononitrate Hemodialysis (7) Hypertension, uncontrolled: Plan: See above Started PRN Hydralazine. Continue as needed for SBP greater than 180 Follow vital signs per protocol Plan: Heparin for DVT prevention based upon renal dysfunction - continue as outpatient per orthopedic recommendations Disposition - medically stable for discharge pending placement -awaiting bed Admission and Anticipated Discharge Date Admission Date: February 15, 2021 Jason Masters is in a bit of a down mood today we will try to coordinate dialysis and her transfer to [facility] to [facility]habilitate from her hip fracture with repair she is no focal specific problem just feeling a bit fatigued and tired more than usual today. Review of Systems Review of Systems: Mild distress and fatigue no headache, no visual changes no speech or swallowing issues no chest pain, pressure or palpitations no shortness of breath, cough or wheezes no abdominal pain, resolution of nausea no dysuria, hematuria or frequency Currently denies postoperative left hip pain no back pain, CVA tenderness or radicular pain no bruising, bleeding or rashes she does appear pale the visual inspection no focal signs of weakness or numbness or altered sensation no complaints of anxiety or depression.. Physical Exam Physical Exam: The patient appeared well nourished and normally developed. Vital signs as documented. Head exam is normocephalic atraumatic Neck is with subtle JVD, thyromegaly, or carotid bruits. Lungs are clear to auscultation, continues to be decreased at the bases, no focal loss of breath sounds Cardiac exam, Rhythm is regular.. Systolic ejection murmur Abdominal exam reveals normal bowel sounds, soft non tender, no masses Extremities are nonedematous and both pedal pulses are present left hip examined without much discomfort Neurologic exam is alert and oriented, no focal loss of sensation Psychologically is without concerns for anxiety or depression Results & Data Results & Data ([facility]) Vital Signs (Past 12 Hours) Vital Signs Temp Pulse Resp BP Pulse Ox 02/27/21 16:00 99.0 F 83 18 131/64 92 02/27/21 07:59 98.1 F 78 16 181/65 H 95 PG Care Time/CCT Total # of Minutes Spent Total Time Spent with Patient: Total time spent is greater than 50% in coordination of care (as documented) at patient's floor/unit and/or counseling patient: Coding Level of Care Code 01319 Subseq Hosp Care Lvl 1 Diagnoses Closed intertrochanteric fracture of left femur S72.142A Encounter type: initial encounter Fracture alignment: displaced Acute blood loss anemia D62 End-stage renal disease on hemodialysis N18.6; Z99.2 Type 2 diabetes mellitus with insulin therapy E11.9; Z79.4 Depression F32.9 CAD (coronary artery disease) I25.10 Hypertension, uncontrolled I10 (1) Closed intertrochanteric fracture of left femur Encounter type: initial encounter Fracture alignment: displaced Qualified Code(s): S72.142A - Displaced intertrochanteric fracture of left femur, initial encounter for closed fracture
[2021-02-27] MEDS: INSULIN GLARGINE SOLOSTAR 100 UNITS/ML 3 ML PEN SQ SCH (21:29)
[2021-02-27] MEDS: DOCUSATE SODIUM/SENNA 50/8.6MG TAB PO SCH (21:32)
[2021-02-27] MEDS: ACETAMINOPHEN 325 MG TAB PO PRN (23:42)
[2021-02-28] MEDS: hydrALAZINE HCL 20 MG/ML VIAL IV PRN (00:09)
[2021-02-28] MEDS: VENLAFAXINE HCL XR 150 MG CAPXR PO SCH (08:49)
[2021-02-28] MEDS: ATORVASTATIN 40 MG TAB PO SCH (08:49)
[2021-02-28] MEDS: CALCIUM 600MG + VIT D 400 IU TAB PO SCH (08:49)
[2021-02-28] MEDS: CEROVITE ADV FORMULA TAB PO SCH (08:49)
[2021-02-28] MEDS: VENLAFAXINE HCL XR 37.5 MG CAPXR PO SCH (08:49)
[2021-02-28] MEDS: ASCORBIC ACID 500 MG TAB PO SCH (08:50)
[2021-02-28] MEDS: hydrALAZINE TAB 50 MG TAB PO SCH ×2 (08:50→14:25)
[2021-02-28] MEDS: CHOLECALCIFEROL 1,000 UNITS 25 MCG TAB PO SCH (08:50)
[2021-02-28] MEDS: HEPARIN SOD 5,000 UNIT/0.5 ML VIAL SQ SCH (08:50)
[2021-02-28] MEDS: ISOSORBIDE MONO EXTENDED REL 60 MG TABCR PO SCH (08:50)
[2021-02-28] MEDS: INSULIN ASPART 100 UNITS/ML 3 ML PEN SC SCH ×3 (08:51→18:52)
[2021-02-28] MEDS: amLODIPine BESYLATE 5 MG TAB PO SCH (08:51)
[2021-02-28] MEDS: FAMOTIDINE 20 MG TAB PO SCH (09:02)
--- NOTE | 2021-02-28 10:01 | Nephrology Progress Note ---
Date of Service February 28, 2021 Assessment & Plan (1) End-stage renal disease on hemodialysis: (2) Fall: (3) Acute blood loss anemia: Plan: End-stage renal disease, on hemodialysis via IJ tunneled dialysis catheter. Admitted after fall at home and fracture left femur, status post surgical intervention. Overall recovering well from the surgery, denies any pain. Overall doing well., IJ tunneled dialysis catheter has been functioning well, left radiocephalic AV fistula waiting to be used. blood pressure has been Variable but asymptomatic. -- plan for 3.5 h HD this afternoon, OK to be discharged after HD. Next HD Friday at [facility]. -- on hydralazine 50 mg t.i.d. -- Received Epogen 70799 units with dialysis,, getting IV Venofer. -- Dose medications for GFR less than 10, avoid IV fluid, left arm nephrology precaution. Will follow Admission and Anticipated Discharge Date Admission Date: February 15, 2021 Jason Masters was seen and examined this morning. Denies any pain, shortness of breath or chest pain. Blood pressure remains widely variable, asymptomatic. Appetite has been fair. Review of Systems Review of Systems: Detailed review of system was otherwise unremarkable. Physical Exam Constitutional: well developed and well nourished; no acute distress Respiratory: normal respiratory effort, lungs clear to auscultation Cardiovascular: RRR, no murmur, no edema Neurologic: moves all extremities and awake; not confused Psychiatric: A+Ox3, euthymic affect Results & Data ([facility]) Vital Signs (Past 12 Hours) Vital Signs Temp Pulse Pulse Resp BP Pulse Ox 02/28/21 07:34 36.7 C 82 14 193/67 H 94 02/28/21 00:32 172/78 H 02/27/21 23:40 93 H 203/73 H 02/27/21 22:11 37.5 C 95 H 16 187/63 H 97 PG Care Time/CCT Total # of Minutes Spent Total Time Spent with Patient: Total time spent is greater than 50% in coordination of care (as documented) at patient's floor/unit and/or counseling patient: Coding Level of Care Code 57311 Subseq Hosp Care Lvl 2 Diagnoses End-stage renal disease on hemodialysis N18.6; Z99.2 Fall W19.XXXA Encounter type: initial encounter Acute blood loss anemia D62 (1) Fall Encounter type: initial encounter Qualified Code(s): W19.XXXA - Unspecified fall, initial encounter
--- NOTE | 2021-02-28 19:39 | Discharge Summary ---
Date of Service February 28, 2021 Admission HPI Per Admitting Provider The patient is a 80-year-old female with a past medical history including ESRD on HD, pulmonary hypertension, diabetic nephropathy, depression, urge and stress incontinence, urinary tract infections, hypertension, pulmonary nodules, cardiomyopathy, foot ulcer, moderate aortic stenosis, dyslipidemia, Graves' disease and anemia. 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 X-rays in the emergency department revealed and acute mildly comminuted and displaced intertrochanteric fracture of the left femur. Principal Diagnosis left femur intertrochanteric fracture with nailing acute blood loss anemia in the post operative setting chronic anemia associated with end stage renal disease Discharge Exam The patient appeared comfortable Vital signs as documented. Lungs are clear to auscultation and appear unlabored Cardiac exam, Rhythm is regular.. Systolic murmur is heard Discharge Data Allergies Allergy/AdvReac Type Severity Reaction Status Date / Time codeine AdvReac Unknown DOES NOT Verified 02/15/21 17:10 [address] THE WAY IT MAKES HER FEEL. Consultations 02/15/21 17:55 ED Decision to Admit Stat 02/15/21 20:56 Consult Nephrology Routine 02/16/21 00:27 Consult Orthopedic Surgery Routine Procedures Performed Operation Date: 02/16/21 09:05 Actual Procedures p intramedullary nail fixation of the left femur(Left) - Heriberto Ly DO Ordered Studies 02/16/21 12:45 FL hip LT 2-3V Routine Hospital Course (1) Closed intertrochanteric fracture of left femur: Left femur nailing 02/16/2021 Dr. Ly Geriatric hip fracture protocol order set Age-related osteoporosis with current fracture of left femur PT is recommending inpatient rehab stay (2) Acute blood loss anemia: Acute blood loss anemia in the postoperative setting. Hgb stable after 1 unit blood transfusion. No need for further transfusion at this stage. No sign, symptom of GI blood loss, chronic anemia secondary end-stage renal disease managed by nephrology Epoetin alpha with dialysis per nephrology (3) End-stage renal disease on hemodialysis: Undergoes dialysis, Friday, Friday and Friday as an outpatient but receiving Friday at [place] Consult nephrology. Appreciate Dr. Spangler's input will coordinate change of dialysis days based upon chair availability outpatient dialysis center that is near her rehab center (4) Type 2 diabetes mellitus with insulin therapy: Appreciate glycemic pharmacy management of basal bolus insulin we will continue to have sliding scale insulin at the rehab center (5) Depression: Continue venlafaxine (6) CAD (coronary artery disease): CAD/hypertension- Continue amlodipine and isosorbide mononitrate Hemodialysis (7) Hypertension, uncontrolled: See above Add hydralazine the medical regiment Total Time Total Time Spent Total Time Spent (In Minutes): It required less than 30 minutes to prepare this patient for discharge Discharge Plan Discharge Items Patient Disposition: Transfer Halfway Fac Reason For Visit: CLOSE LEFT INTERTROCHANTERIC FRACTURE Discharge Diagnosis: left intertrochanteric hip fracture. weakness Activity: Per Instructions section Activity Comment: per PT / OT Non-emergency contact: Primary Care Provider and Surgeon Call non-emergency contact if: you have any medication questions, your symptoms worsen and you have a fever Follow-up/Referrals: David Lopez III, CRNP [Primary Care Provider] - Diet: Regular Addtl Attending Provider Instructions: please follow up with orthopedics for hip fracture repair Addtl [facility] Provider Instructions: ORTHOPEDIC INSTRUCTIONS Hip Fracture Activity and Therapy Recommendations: 1. You were shown a series of exercises in the hospital. Do these exercises three times each day if you are able. 2. Get up and walk several times each day if you are capable. Make sure you have assistance is needed. For the first four weeks, try not to stand or walk for more than one hour at a time. If you do stand or walk for more than one hour, you will not hurt anything, but your leg will likely swell. 3. As you feel comfortable, you may change from the walker or crutches to a cane and then to independent walking if you are able. Please be safe. Medications: 1. Narcotic You will likely be sent from the hospital with the narcotic pain medication that worked best throughout your stay. 2. Anticoagulation for 4 weeks. 3. Other medications may be given for specific circumstances. If you have any questions, please call the office at [phone]. 4. Resume previous home medications unless otherwise instructed TEDs/Elastic Stockings: The white elastic stockings help limit swelling and prevent blood clots from forming in your legs. The more you wear them, the more they work. Wear them for six weeks. Dressing Care: Vidal can be open to air as long as the incisions are not draining. If the incisions are draining or if the vidal are getting caught on your clothes then please cover the vidal with dry gauze. Change the dressings as necessary to keep the incision as dry as possible Showering: You may shower 5 days from the day of surgery as long as the incisions are not draining. Do not soak the incision. Let soapy water run over the vidal and pat them dry. Things To Watch For: 1. Drainage from the incision site that occurs more than one week after your surgery. 2. Increased redness at the incision site. 3. Fever above 102 degrees Fahrenheit. 4. Unusual chest pain or shortness of breath. 5. Call [facility] at with any of the above problems Follow-Up Visit: Follow-up with Dr. Ly's PA (Heriberto Rasheed) 2-3 weeks after your day of surgery. He will remove your vidal and answer any questions. If you have any additional questions or concerns, Dr Ly is usually in the office at the same time and will be available Please call to set up an appointment for a time that works for you Pending Studies at Discharge: No Stand-Alone Forms: [facility] Skilled Items Patient informed of condition?: Yes DNR: No Discharge Level of Care: Skilled Communicable Disease: No Discharge Prognosis: Stable Lines: None Urinary Catheter: No Medications and DC Order Prescriptions: New hydralazine 50 mg Tablet 50 mg PO TID Qty: 90 RF: 0 hydrocodone-acetaminophen 5-325 mg Tablet 1 tab PO Q4H PRN (Reason: pain) Qty: 30 RF: 0 Lantus Solostar U-100 Insulin 100 unit/mL (3 mL) Insulin Pen 18 unit subcut QPM Qty: 3 RF: 0 insulin aspart U-100 [Novolog Flexpen U-100 Insulin] 100 unit/mL (3 mL) Insulin Pen 1 sliding scale dose SC ACHS Qty: 1 RF: 0 Continued Centrum Silver 400-250 mcg tablet,chewable 1 tab PO QAM RF: 0 polyethylene glycol 3350 17 gram/dose powder 17 gm PO DAILY PRN (Reason: Constipation) RF: 0 PreserVision AREDS 14,320-226-200 msbg-la-lcta capsule 1 cap PO BID RF: 0 venlafaxine 150 mg capsule,extended release 24hr 150 mg PO QAM RF: 0 ascorbic acid (vitamin C) 500 mg tablet 500 mg PO QAM RF: 0 atorvastatin 80 mg tablet 80 mg PO QAM Qty: 90 RF: 3 isosorbide mononitrate 120 mg tablet extended release 24 hr 120 mg PO QAM Qty: 90 RF: 3 amlodipine 5 mg tablet 5 mg PO BID Qty: 180 RF: 3 cholecalciferol (vitamin D3) 25 mcg (1,000 unit) capsule 50 mcg PO BID RF: 0 Calcium 600 with Vitamin D3 600 mg(1,500mg) -400 unit Tablet,Chewable 2 tab PO QAM RF: 0 venlafaxine 37.5 mg tablet extended release 24hr 37.5 mg PO QAM RF: 0 Discontinued insulin aspart U-100 [Novolog Flexpen U-100 Insulin] 100 unit/mL (3 mL) insulin pen 30 unit subcut DAILY 90 Days Qty: 30 RF: 1 Basaglar KwikPen U-100 Insulin 100 unit/mL (3 mL) insulin pen 10 unit subcut QPM Qty: 0 RF: 0 Discharge Orders: Discharge Order (Routine); Ordered 02/28/21 Ordered By: Yosi Sharpe/Other Patient Handouts: A1C, Managing Type 2 Diabetes Admission Data Admit Date/Time: 02/15/21 18:00 Attending Provider: Yosi Randall Admit Provider: Nimesh Demarco Primary Care Provider: David Lopez III Other Providers: Nimesh Demarco ; Sanjay Spangler ; Heriberto Ly ; [facility] ; [place],[facility], [place] Other Interventions: Discharge Summary Assessment (RN) Last Done: 02/28/21 12:11 Coding Level of Care Code D/C DAY MANAGEMENT <30 MINS Diagnoses Closed intertrochanteric fracture of left femur S72.142A Encounter type: initial encounter Fracture alignment: displaced Acute blood loss anemia D62 End-stage renal disease on hemodialysis N18.6; Z99.2 Type 2 diabetes mellitus with insulin therapy E11.9; Z79.4 Depression F32.9 CAD (coronary artery disease) I25.10 Hypertension, uncontrolled I10
== END 2021-02-28 19:07 | DRG 480 ==
LOC: ED 15:19 → SUATTDRO 18:00 → 2N 18:00 → 3N 02-17 17:26 → 3E 02-19 14:31

== ENCOUNTER 2021-05-31 13:55 | Observation (INO) ==
--- NOTE | 2021-05-30 08:38 | Anesthesiology Consultation ---
Date of Service May 30, 2021 Assessment & Plan (1) Encounter for pre-operative examination: - check BMP and BSG am DOS. -Dialysis MWF: [facility] in [place]. - left upper extremity restriction. - PCP office visit 05/29/2021 [place]: "...telephone visit for general check in. Patient had recent fall while she was at dialysis and suffered a fractured patella. She also has lose [sic] hardware from her previous surgery. She is scheduled for surgical repair on . 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 Patient vaccinated. Surgeon arranging preop COVID testing, completed 05/29/2021 at [place]-negative. Chart Review Chart Review: Acceptable Risk for Surgery and Patient NOT seen in Pre Admission Testing History Surgery Operation Date: 05/31/21 07:00 Proposed Procedures p Right Open Reduction Internal Fixation Patella, Hardware Removal - Heriberto Ly DO Height/Weight Height: 5 ft 6 in Weight: 83.915 kg Allergies Allergy/AdvReac Type Severity Reaction Status Date / Time codeine AdvReac Mild DOES NOT Verified 05/29/21 15:05 LIKE THE WAY IT MAKES HER FEEL. Medications Home Medications Medication Instructions Recorded Confirmed Last Taken ascorbic acid (vitamin C) 500 mg 500 mg PO QAM tab 12/10/18 05/29/21 05/17/21 10:00 tablet polyethylene glycol 3350 17 17 gm PO DAILY PRN gm 12/10/18 05/29/21 11/07/20 09:00 gram/dose oral powder venlafaxine 150 mg 150 mg PO QAM cap 12/10/18 05/29/21 05/17/21 10:00 capsule,extended release 24 hr vitamins A,C,X-mnlw-hlyzyc 14,320 1 cap PO BID cap 12/10/18 05/29/21 05/17/21 20:00 unit-226 mg-200 unit capsule (PreserVision AREDS) calcium carbonate 600 mg-vitamin 2 tab PO QAM 03/09/20 05/29/21 05/17/21 10:00 D3 10 mcg (400 unit) chewable tablet (Calcium 600 with Vitamin D3) isosorbide mononitrate 120 mg 120 mg PO QAM #90 tab 10/25/20 05/29/21 05/17/21 10:00 tablet,extended release 24 hr amlodipine 5 mg tablet 5 mg PO BID #180 tab 11/23/20 05/29/21 05/18/21 04:30 cholecalciferol (vitamin D3) 25 50 mcg PO BID cap 12/27/20 05/29/21 05/17/21 10:00 mcg (1,000 unit) capsule hydralazine 50 mg tablet 50 mg PO TID #90 tab 02/28/21 05/29/21 05/17/21 20:00 flash glucose scanning reader 05/10/21 05/29/21 Unknown (FreeStyle Flash 2 [place]) flash glucose sensor (FreeStyle 05/10/21 05/29/21 Unknown Flash 2 Sensor) insulin aspart U-100 100 unit/mL 35 unit SUBCUT AC ml 05/10/21 05/29/21 05/17/21 17:00 (3 mL) subcutaneous pen (Novolog 10 units Flexpen U-100 Insulin aspart) insulin glargine 100 unit/mL (3 23 unit SUBCUT QPM ml 05/10/21 05/29/21 05/17/21 20:00 mL) subcutaneous pen (Lantus Solostar U-100 Insulin) multivitamin 1 cap PO DAILY 05/18/21 05/29/21 05/17/21 10:00 tramadol 50 mg tablet 50 mg PO Q6H PRN #20 tab 05/18/21 05/29/21 Unknown cephalexin 500 mg capsule 500 mg PO QID #40 cap 05/25/21 05/29/21 Unknown atorvastatin 80 mg tablet 80 mg PO HS #90 tab 05/29/21 05/29/21 Unknown Past Medical History Medical History Anemia AV fistula LEFT CAD (coronary artery disease) Carotid artery disease less than 50% ICA stenosis per 08/2016 carotid duplex CHF (congestive heart failure) Chronic gastroesophageal reflux disease Chronic kidney disease on HD Depression Diabetic peripheral neuropathy associated with type 2 diabetes mellitus Dialysis patient [facility] Dyslipidemia Gallstones Generalized osteoarthritis of multiple sites Graves disease H/O malignant neoplasm of uterine body Hiatal hernia History of kidney stones Hypertension Irregular heart beat metoprolol for this per pt Macular degeneration Moderate calcific aortic stenosis Multinodular goiter (nontoxic) Multiple thyroid nodules Obesity Osteopenia Secondary hyperparathyroidism Sleep apnea No device Type 2 diabetes mellitus with insulin therapy Past Family History Family History Father Diabetes Lung cancer Family history of diabetes mellitus Mother , in a home fire Hypertension Family history of diabetes mellitus Daughter Family history of diabetes mellitus Son Family history of diabetes mellitus Other No family history of adverse response to anesthesia Denies family history of Ovarian cancer Prostate cancer Myocardial infarction Breast cancer Colorectal cancer Past Surgical History Surgical History (Updated 05/30/21 @ 08:36 by Trisha Nobles PA-C) H/O abdominoplasty H/O basal cell carcinoma excision H/O shoulder surgery Right History of appendectomy History of cataract surgery R/L History of colonoscopy History of esophagogastroduodenoscopy (EGD) History of hip surgery Closed intertrochanteric fracture of left femur 04/10/2021: 02/16/2021: Grade 4 view, MAC#3, ETT#7.0. No issues per anesthesia postop progress note. History of open reduction and internal fixation (ORIF) procedure right patella 05/18/2021: LMA#4 atraumatic + PNB. No issues per anesthesia postop progress note. History of tonsillectomy History of tooth extraction S/P complete hysterectomy Social History Smoking Status: Former smoker tobacco type: cigarettes Smoking End Date: 2004 Hx Alcohol Use: Yes Alcohol type: wine alcohol intake frequency: holidays/special occasions only substance use type: does not use Lab Results Anesthesia Preop Results Results Anesthesia Widget: WBC 8.65 K/uL (4.8-10.8) 05/15/21 Hgb 10.0 g/dL (12.0-16.0) L 05/15/21 Hct 33.6 % (37-47) L 05/15/21 Plt 319 K/uL (130-400) 05/15/21 Na 138 mmol/L (136-145) 05/18/21 K 3.8 mmol/L (3.5-5.1) 05/18/21 Cl 101 mmol/L (98-107) 05/18/21 CO2 30 mmol/L (21-32) 05/18/21 BUN 32 mg/dl (7-18) H 05/18/21 Creat 3.55 mg/dl (0.6-1.2) H 05/18/21 Glucose Level 214 mg/dl (70-99) H 05/18/21 POC Glucose 197 mg/dl (70-99) H 05/18/21 Blood Type O Positive 05/18/21 Antibody Screen NEGATIVE 05/18/21 Testing Electrocardiogram Date: 02/15/21 Poor data quality, interpretation may be adversely affected Normal sinus rhythm Normal ECG When compared with ECG of 03-JAN-2021 05:50, Nonspecific T wave abnormality now evident in Lateral leads Echocardiogram Date: 10/23/20 Mild left ventricular systolic dysfunction Mild cLVH Mild left atrial dilatation Normal right ventricular systolic function Moderate aortic stenosis. Mean gradient 20.8 mmHg. Aortic valve area 1 cm2 Trace to mild aortic regurgitation Moderate mitral regurgitation EF 45-50% Grade 1 diastolic dysfunction Mild global hypokinesis of the left ventricle Other Testing Thyroid ultrasound 05/22/2021 IMPRESSION: No significant change in multiple thyroid nodules since ultrasound of January 17, 2016, including a densely calcified right mid pole nodule. Carotid doppler 09/03/2016 < 50% stenosis in internal carotid arteries bilat
--- NOTE | 2021-05-31 13:49 | History & Physical Bridge Note ---
Date of Service May 31, 2021 History & Physical Bridge Note I have examined the patient, reviewed the History & Physical and in the interval since the performance of the History & Physical I have noted the following changes of clinical significance: no changes noted
[~2021-05-31 13:55] MED LIST changes: -AMLO5TAB3 PO; -ASCO500C43 PO; -ASPI325T39 PO; -ATOR-24 PO; -CALCTAB7 PO; -CEPH500C2 PO; -CHOL200027 PO; -ENAL10TA88 PO; +EPINEPHrine INJ 1 MG/ML AMP ONE; -FRS/40 PO; -INSPMPNVLG; +LR 60ML/HR IV SCH; -METO50TA16 PO; -MRLP120 PO; -MULT-190 PO; -MULTTAB58 PO; -PANT1TAB3 PO; +ROPIVACAINE 0.5% 5 MG/ML 30 ML VIAL ONE; +SODIUM CHLORIDE 0.9% 1000ML IV SCH; -VENL75CA73 PO; +ceFAZolin 2000MG 2,000 MG/15 ML SYR IV SCH
[2021-05-31] MEDS ORDERED: fentaNYL citrate 100 MCG/2 ML VIAL ONE ×2 (14:23→17:06)
[2021-05-31] MEDS ORDERED: MIDAZOLAM HCL 1 MG/ML 2ML VIAL ONE (14:23)
[2021-05-31] MEDS ORDERED: EPINEPHrine INJ 1 MG/ML AMP ONE (14:37)
[2021-05-31] MEDS ORDERED: BUPIVACAINE 0.25% 30 ML VIAL ONE (14:37)
[2021-05-31] MEDS ORDERED: LIDOCAINE 2% 2 ML VIAL/AMP(20MG/ML) INFIL ONE ×2 (15:07→16:59)
[2021-05-31] MEDS ORDERED: ATROPINE SULFATE 0.1 MG/ML 10ML SYR IV PRN (15:13)
[2021-05-31] MEDS ORDERED: ONDANSETRON INJ 2 MG/ML 2 ML VIAL IV PRN ×2 (15:13→18:36)
[2021-05-31] MEDS ORDERED: ePHEDrine sulfate 50 MG/ML AMP IV PRN (15:13)
[2021-05-31] MEDS ORDERED: fentaNYL citrate 100 MCG/2 ML VIAL IV PRN (15:13)
[2021-05-31 15:20] LABS: Calcium 9.4 mg/dl (8.5-10.1); Creatinine Clr Calc Pharmacy 20.3 ml/min; Est GFR (African American) 20.7 ml/min; Est GFR (Non-African American) 17.9 ml/min; Potassium 3.8 mmol/L (3.5-5.1)
[2021-05-31 15:21] LABS: Partial Thromboplastin Ratio 1.1; Partial Thromboplastin Time 29.1 Seconds (21.0-31.0); Prothrombin Time 10.4 Seconds (9.0-12.0)
[2021-05-31] MEDS ORDERED: ONDANSETRON INJ 2 MG/ML 2 ML VIAL ONE (16:59)
[2021-05-31] MEDS ORDERED: PROPOFOL IV EMULSION 10 MG/ML 20 ML VIAL IV ONE (16:59)
[2021-05-31] MEDS ORDERED: GLYCOPYRROLATE 0.2 MG/ML VIAL ONE (16:59)
--- NOTE | 2021-05-31 17:26 | Operative Report ---
PG Post Operative Report Pre & Post Diagnosis Operation Date: 05/31/21 07:00 Pre-Op Diagnosis: Re-fracture status post open reduction internal fixation and right patellar fracture Post-Op Diagnosis: Re-fracture status post open reduction internal fixation and right patellar fracture with infected seroma of the right knee I identified the patient and participated in the time-out.: Yes Procedure Operation Date: 05/31/21 07:00 Actual Procedures p Incision and Debridement Right Knee, Right Open Reduction Internal Fixation Patella, Hardware Removal(Right) - Heriberto Ly DO Surgeon Heriberto Ly DO Sheet Cutter Heriberto Rasheed PAC Estimated Blood Loss 10 Findings Consistent with Post-Op Diagnosis Specimens Cultures Complications none Disposition Disposition: Recovery Room Indications Sonam is a pleasant 80-year-old female who sustained a right patella fracture about 10 days ago. She underwent open reduction internal fixation with cannulated screws. Unfortunately when she came back to the office she was concerned with some redness around the knee and she was sitting in a wheelchair with her knee flexed. X-rays showed failure of the fracture fixation. After discussions, she elected to proceed with a revision open reduction internal f ixation of the right patella with removal of hardware. Description of Procedure On May 31, 2021 Sonam arrived at [facility] for the above procedure. She was seen in the preoperative holding area and the operative extremity identified and signed. She was given a preoperative antibiotic. She was taken back the operating room and laid on the table in supine position. She was put under general anesthesia. The right knee was prepped and draped in sterile fashion. A timeout was done. The patient and the operative extremity w as properly identified. The previous incision was opened up. After the incision was opened there was a large seroma. It appeared to be possibly infected. Cultures were taken. The seroma was washed out with 6 mL of normal saline solution by pulse lavage. Screws were removed and previous sutures were all removed. The knee was once again irrigated with 3 L of normal saline solution by pulse lavage. New drapes were placed, new gloves were placed, new suction cautery was placed. We had a separate clean table for the plate fixation of the patella. A clamp was used to reduce the fracture. A Synthes small 6-hole patella plate was then placed. The legs were then bent around the inferior pole of the patella. 2 screws were placed perpendicular from the legs of the plate across the fracture site. 5 screws were then placed through the body and arms of the plate. The third leg was then bent down around the inferior pole of the patella and a third locking screw was placed. All screws were locking screws. Screws were then tightened. Final fluoroscopic images showed good alignment of the fracture. The retinaculum was then repaired with #0 PDS suture. After the procedure I can on ly flex the knee about 15 to 20 degrees before there was significant tension on the repair site. A Betadine lavage was then done for 3 minutes. The knee was once again irrigated. Skin was closed with 2-0 Vicryl and ventura. She was placed in a soft compressive dressing. She was extubated and transferred to a hospital bed. She was taken to the postanesthesia care unit in stable condition. She tolerated the procedure well. Heriberto Rasheed PA-C, was present for the entire procedure. He was critical for patient positioning, prepping, draping, retraction exposure, wound closure and application of sterile dressing. I attest to the content of the Intraoperative Record and any orders documented therein. Any exceptions are noted below.
--- NOTE | 2021-05-31 18:02 | Hospitalist Consultation ---
Date of Consultation May 31, 2021 Assessment & Plan (1) Patella fracture: Right patellar refracture status post open reduction and internal fixation with infected seroma of the right knee Patient operatively treated as above with nausea Wound cultures have been sent, follow for speciation/sensitivities On perioperative cefazolin no history of MRSA. Patient does have a history of MSSA infection of the finger in 2019, Klebsiella and pseudomonal UTIs in the past. Patient with pseudomonal urine culture within the previous 3 months. Given infection with hardware present with risk for pseudomonal colonization will treat with cefepime at this time for pseudomonal coverage and gram-negative coverage,andadjust based on wound cultures. Given gross purulent appearance in OR suspect is likely MSSA is more likely. Consider adjunct rifampin if staph/strep speciation; deferred at this time. 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 TDD ~128u. Glucose checks AC/at bedtime Goal BSG 1001 40 Continue basal bolus insulin.Based on home total daily doses would be Lantus 22 units twice daily, correction factor 20, carb ratio 6. Concerned this may be overly tight for hospital diet, will loosen to correction factor 25 carb ratio 10 and continue Lantus 23 units nightly with pharmacy glycemic consult. (3) End-stage renal disease on hemodialysis: End-stage renal disease on dialysis Patient on home dialysis Friday Nephrology consulted for dialysis Dialysis diet Potassium 3.8 today, reasonable volume status (4) CAD (coronary artery disease): Heart failure with moderate ejection fraction, history of CAD Continue atorvastatin 80 mg daily Continue isosorbide mononitrate 120 mg every 24 hours Patient on hemodialysis as below - TTE 10/2020: EF~45%. Appears near euvolemic, no signs of overload (5) Hypertension: Hypertension Continue amlodipine 5 mg twice daily Continue hydralazine 50 mg p.o. 3 times daily, hold for BP less than 110 Depression Continue venlafaxine 150 mg extended release daily DVT prophylaxis: Per primary team, resume 24 hours postop Diet: DM, dialysis Disposition: Medical surgical CODE STATUS: Reports she has been DNR/DNI in the past understands this decision, but feels her in the setting of surgery this is a special circumstance and would like to remain full code at this time/hospitalization History of Present Illness Reason for Consultation: Infected knee Requesting Physician: Heriberto Ly DO Attending Physician: Heriberto Ly DO History of Present Illness Sonam Bolivar is a 80-year-old female with a past medical history of hip fracture and knee fracture, type 2 diabetes mellitus, heart failure with midrange ejection fraction and cardiomyopathy, end-stage renal disease on Friday dialysis, CAD, Graves' disease, and hypertension who presents to the hospital for operative repair of her kneecap and he was found to have purulence/infection of the knee during repair. Per discussion with primary provider patient had a hip fracture 6 months ago and underwent operative repair. Following this she fell and shattered her patella which was repaired 10 days ago. Patient was noncompliant with immobilizer, fell and again broke the patella. She underwent operative repair today with orthopedics who noted an infected seroma of the knee. She has had hardware placed in the knee, we have been consulted for medical management of the above conditions and for assistance in antibiotic treatment in this patient. Wound cultures have been sent, patient does not have any history of MRSA. No fevers, chills, sweats. No pain in her knee, reports she cannot feel much of anything from anesthesia in her knee. Sensation is intact in her feet bilaterally to soft touch. Reports patella fracture consistent with history above. She reports she has a history of diabetes on insulin as noted. Confirms Friday dialysis. She has had no problems sleeping laying flat, sees Dr. Lugo in the past for reduced EF but has not had any problems with fluid recently. No shortness of breath, dyspnea, cough at time of assessment. Sleepy, and reports she is looking forward to a nap after surgery otherwise no questions or concerns. Denies chest pain, chest pressure. Medical History: Reviewed Medications: Reviewed Surgical History: Reviewed Allergies: Reviewed Social History: No tobacco, alcohol, recreational drug use Code Status: Tiffany Diaz surrogate, daughter. Full Code. "I have 25 grandkids to get back to." Allergies Allergy/AdvReac Type Severity Reaction Status Date / Time codeine AdvReac Mild DOES NOT Verified 05/31/21 14:42 [address] THE [address] IT MAKES HER FEEL. Home Medications Medication Instructions Recorded Confirmed Type ascorbic acid (vitamin C) 500 mg 500 mg PO QAM tab 12/10/18 05/31/21 History tablet polyethylene glycol 3350 17 17 gm PO DAILY PRN gm 12/10/18 05/31/21 History gram/dose oral powder venlafaxine 150 mg 150 mg PO QAM cap 12/10/18 05/31/21 History capsule,extended release 24 hr vitamins A,C,Y-fkpy-wpyjnd 14,320 1 cap PO BID cap 12/10/18 05/31/21 History unit-226 mg-200 unit capsule (PreserVision AREDS) calcium carbonate 600 mg-vitamin 2 tab PO QAM 03/09/20 05/31/21 History D3 10 mcg (400 unit) chewable tablet (Calcium 600 with Vitamin D3) isosorbide mononitrate 120 mg 120 mg PO QAM #90 tab 10/25/20 05/31/21 Rx tablet,extended release 24 hr amlodipine 5 mg tablet 5 mg PO BID #180 tab 11/23/20 05/31/21 Rx cholecalciferol (vitamin D3) 25 50 mcg PO BID cap 12/27/20 05/31/21 History mcg (1,000 unit) capsule hydralazine 50 mg tablet 50 mg PO TID #90 tab 02/28/21 05/31/21 Rx flash glucose scanning reader 05/10/21 05/29/21 History (FreeStyle Flash 2 Mather) flash glucose sensor (FreeStyle 05/10/21 05/29/21 History Flash 2 Sensor) insulin aspart U-100 100 unit/mL 35 unit SUBCUT AC ml 05/10/21 05/31/21 History (3 mL) subcutaneous pen (Novolog Flexpen U-100 Insulin aspart) insulin glargine 100 unit/mL (3 23 unit SUBCUT QPM ml 05/10/21 05/31/21 History mL) subcutaneous pen (Lantus Solostar U-100 Insulin) multivitamin 1 cap PO DAILY 05/18/21 05/31/21 History tramadol 50 mg tablet 50 mg PO Q6H PRN #20 tab 05/18/21 05/31/21 Rx cephalexin 500 mg capsule 500 mg PO QID #40 cap 05/25/21 05/31/21 Rx atorvastatin 80 mg tablet 80 mg PO HS #90 tab 05/29/21 05/31/21 Rx Patient History Medical History Anemia AV fistula LEFT CAD (coronary artery disease) Carotid artery disease less than 50% ICA stenosis per 08/2016 carotid duplex CHF (congestive heart failure) Chronic gastroesophageal reflux disease Chronic kidney disease on HD Depression Diabetic peripheral neuropathy associated with type 2 diabetes mellitus Dialysis patient 3XWK (M/W/F) Formerly [facility]>FOLLOWED BY DR. HATHAWAY Dyslipidemia Gallstones Generalized osteoarthritis of multiple sites Graves disease H/O malignant neoplasm of uterine body Hiatal hernia History of kidney stones Hypertension Irregular heart beat metoprolol for this per pt Macular degeneration Moderate calcific aortic stenosis Multinodular goiter (nontoxic) Multiple thyroid nodules Obesity Osteopenia Secondary hyperparathyroidism Sleep apnea No device Type 2 diabetes mellitus with insulin therapy Surgical History H/O abdominoplasty H/O basal cell carcinoma excision H/O shoulder surgery Right History of appendectomy History of cataract surgery R/L History of colonoscopy History of esophagogastroduodenoscopy (EGD) History of hip surgery Closed intertrochanteric fracture of left femur 04/10/2021: 02/16/2021: Grade 4 view, MAC#3, ETT#7.0. No issues per anesthesia postop progress note. History of open reduction and internal fixation (ORIF) procedure right patella 05/18/2021: LMA#4 atraumatic + PNB. No issues per anesthesia postop progress note. History of tonsillectomy History of tooth extraction S/P complete hysterectomy Family History Father Diabetes Lung cancer Family history of diabetes mellitus Mother , in a home fire Hypertension Family history of diabetes mellitus Daughter Family history of diabetes mellitus Son Family history of diabetes mellitus Other No family history of adverse response to anesthesia Denies family history of Ovarian cancer Prostate cancer Myocardial infarction Breast cancer Colorectal cancer Social History Smoking Status: Former smoker Smoking End Date: 2004; Second Hand Exposure: No; Hx Alcohol Use: Yes Alcohol type: wine Preferred Language: Upper Sorbian Communication Ability: Effective Visual Impairment: No Limitations Hearing Ability: Normal Jacquard Loom Heddles Tier Required: No Beliefs That Will Affect Care: None marital status: / Current Living Situation: Family Current Living Situation Comment: SON AND DAUGHTER N LAW current occupational status: retired Feels Safe at Home: Yes Safety Concerns: Feels Safe At This Time Safety Concerns Comment: unsteady at times Childhood Exposure to Second-Hand Smoke: Yes Dental Care, Regularly: No Physical Activity Frequency: Does not Exercise Seatbelt Use: always Sunscreen Use: No Assistive Devices: Denture - Upper, Denture - Lower, Glasses, Walker and Wheelchair Assistive Devices Comment: READING GASSES, HAS NOT BEEN WEARING DENTURES Review of Systems Review of Systems: All systems reviewed & are unremarkable except as noted in Subjective Physical Exam Physical Exam: General: A&Ox3. NAD. Cooperative. HEENT: Atraumatic, normocephalic. Pupils reactive to light and accommodation. Visual acuity intact, hearing intact. EOM intact without nystagmus. Pulm: Grossly clear without overt wheezes rales or rhonchi, moderate air movement. Symmetrical chest rise. No increased work of breathing. No respiratory distress. Cardiac: RRR, systolic murmur present. Radial pulses intact and symmetrical. Abdominal: Nontender, nondistended, soft. BS present. CRANIAL NERVES: II: Pupils equal and reactive, no relative afferent pupillary defect, no VF cuts III, IV, : EOM intact, no gaze preference or deviation, no nystagmus. V: normal sensation in V1, V2, and V3 segments bilaterally VII: no asymmetry, no nasolabial fold flattening VIII: normal hearing to speech IX, X: normal palatal elevation, no uvular deviation XI: 5/5 head XII: midline tongue protrusion extremity: Right knee in postop wrap. Sensation in ankles intact to soft touch without asymmetry, PT pulses intact bilaterally. 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 Results & Data Results & Data ([facility]) Vital Signs (Past 12 Hours) Vital Signs Temp Pulse Resp BP Pulse Ox 05/31/21 17:46 64 12 172/49 H 100 05/31/21 17:36 64 15 167/57 H 100 05/31/21 17:26 36.7 C 62 12 183/63 H 97 PG Care Time/CCT Total # of Minutes Spent Total Time Spent with Patient: Total time spent is greater than 50% in coordination of care (as documented) at patient's floor/unit and/or counseling patient: Coding Level of Care Code 75078 Inpt Consult Level 4 Diagnoses Patella fracture S82.009A Type 2 diabetes mellitus with insulin therapy E11.9; Z79.4 End-stage renal disease on hemodialysis N18.6; Z99.2 CAD (coronary artery disease) I25.10 Hypertension I10 Hypertension type: unspecified (1) Hypertension Hypertension type: unspecified Qualified Code(s): I10 - Essential (primary) hypertension
[2021-05-31] MEDS ORDERED: PHARMACY GLYCEMIC MGMT CONSULT PRN ×2 (18:17→18:36)
[2021-05-31] MEDS ORDERED: GLUCOSE 40% GEL 15 GM TUBE PO PRN (18:17)
[2021-05-31] MEDS ORDERED: GLUCAGON FOR INJ 1 MG VIAL SQ PRN (18:17)
[2021-05-31] MEDS ORDERED: DEXTROSE 50% 50 ML SYRINGE IV PRN (18:17)
[2021-05-31] MEDS ORDERED: GLUCOSE 10 TABS/TUBE PO PRN (18:17)
[2021-05-31] MEDS ORDERED: CARBOHYDRATES FOR HYPOGLYCEMIA PO PRN (18:17)
[2021-05-31] MEDS ORDERED: SODIUM CHLORIDE 0.9% 1000ML 1,000 ML IV SCH (18:36)
[2021-05-31] MEDS ORDERED: HYDROmorphone INJ 0.5 MG/0.5 ML SYR IV PRN (18:36)
[2021-05-31] MEDS ORDERED: NALOXONE HCL 0.4 MG/1 ML VIAL/CARP IV PRN (18:36)
[2021-05-31] MEDS ORDERED: METOCLOPRAMIDE HCL INJ 5 MG/ML 2 ML VIAL IV PRN (18:36)
[2021-05-31] MEDS ORDERED: MAGNESIUM HYDROXIDE SUSP 30 ML UDC PO PRN (18:36)
[2021-05-31] MEDS ORDERED: bisacodyL 10 MG SUPP PR PRN (18:36)
[2021-05-31] MEDS ORDERED: VANCOMYCIN CONSULT ACTIVE PRN (19:20)
[2021-05-31] MEDS ORDERED: VANCOMYCIN HCL 1,750 MG in SODIUM CHLORIDE 0.9% 500 ML IV SCH (19:30)
--- NOTE | 2021-05-31 19:57 | Fluoroscopy Report ---
INTRAOPERATIVE RADIOGRAPHS CLINICAL HISTORY: Open reduction and internal fixation of the right patella. Fluoroscopy time: 30 seconds. FINDINGS: 2 spot fluoroscopic views of the right knee are correlated with radiographs dated . There has been buttress plate fixation of the patella with zoroastrian of near-anatomic alignment. Numerous cortical lag screws transfix the buttress plate. Overlying soft tissue edema is noted. IMPRESSION: Intraoperative images from open reduction and internal fixation of the right patella as a haritha. Electronically signed by: Isai Baldwin M.D. 05/31/2021 7:56 PM
[2021-05-31] MEDS: CEFEPIME 1,000 MG in SYRINGE 0 ML IV SCH (20:11)
[2021-05-31] MEDS: DOCUSATE SODIUM 100 MG CAP PO SCH (20:16)
[2021-05-31] MEDS: ASPIRIN 81 MG ECTAB PO SCH (20:16)
[2021-05-31] MEDS: CHOLECALCIFEROL 1,000 UNITS 25 MCG TAB PO SCH (20:17)
[2021-05-31] MEDS: ATORVASTATIN 40 MG TAB PO SCH (20:18)
[2021-05-31] MEDS: CEROVITE ADV FORMULA TAB PO SCH (20:18)
[2021-05-31] MEDS: hydrALAZINE TAB 50 MG TAB PO SCH (20:18)
[2021-05-31] MEDS: amLODIPine BESYLATE 5 MG TAB PO SCH (20:19)
[2021-05-31] MEDS: SENNA 8.6 MG TAB PO SCH (20:19)
--- NOTE | 2021-05-31 20:23 | XRay Report ---
RIGHT KNEE 2 VIEWS CLINICAL HISTORY: Postoperative examination. FINDINGS: AP and crosstable lateral portable views of the right knee are compared to study dated 04/13. The skeletal structures are osteopenic. There has been buttress plate fixation of a patellar fracture with congregational of near-anatomic alignment. Numerous cortical lag screws transfix the plate . The orthopedic hardware appears intact. No new fracture is seen. There is moderate to advanced tric ompartmental degenerative joint space narrowing. There are large marginal osteophytes and patellar en thesophytes. There is a joint effusion. Midline skin clips are noted. Soft tissue edema and subcutane ous gas are expected postoperative findings. IMPRESSION: Expected postoperative findings status post open reduction and internal fixation of a pat ellar fracture as above. No new fracture is seen. Electronically signed by: Isai Baldwin M.D. 05/31/2021 8:22 PM
[2021-05-31] MEDS: INSULIN ASPART PER UNIT SC SCH ×2 (21:46→21:47)
[2021-05-31] MEDS: INSULIN GLARGINE SOLOSTAR 100 UNITS/ML 3 ML PEN SC SCH (21:54)
[2021-05-31] MEDS: ACETAMINOPHEN 500 MG TAB PO SCH (21:57)
[2021-06-01] MEDS: oxyCODONE HCL IR 5 MG TAB (IMMEDIATE RELEASE) PO PRN ×3 (00:43→12:51)
[2021-06-01] MEDS: ACETAMINOPHEN 500 MG TAB PO SCH ×3 (06:03→22:10)
[2021-06-01 06:26] LABS: Basophils # (auto) 0.03 K/uL (0-0.2); Basophils % (auto) 0.3 %; Eosinophils # (auto) 0.21 K/uL (0-0.5); Eosinophils % (auto) 1.9 %; Hemoglobin 8.5 g/dL (12.0-16.0); Immature Granulocytes # (auto) 0.03 K/uL (0.00-0.02); Immature Granulocytes % (auto) 0.3 %; Lymphocytes # (auto) 0.88 K/uL (1.2-3.4); Lymphocytes % (auto) 7.8 %; Mean Corpuscular Hgb Conc 29.3 g/dL (32-36); Mean Corpuscular Volume 95.4 fL (80-100); Mean Platelet Volume 8.9 fL (7.4-10.4); Monocytes # (auto) 1.38 K/uL (0.11-0.59); Monocytes % (auto) 12.3 %; Neutrophils # (auto) 8.72 K/uL (1.4-6.5); Neutrophils % (auto) 77.4 %; Platelet Count 303 K/uL (130-400); RDW Coefficient of Variation 17.6 % (11.5-14.5); RDW Standard Deviation 61.4 fL (36.4-46.3); Red Blood Count 3.04 M/uL (4.2-5.4); White Blood Count 11.25 K/uL (4.8-10.8)
[2021-06-01 06:41] LABS: BUN Creatinine Ratio 10.3 (10-20); Calcium 8.9 mg/dl (8.5-10.1); Creatinine Clr Calc Pharmacy 17.7 ml/min; Est GFR (African American) 17.3 ml/min; Est GFR (Non-African American) 14.9 ml/min; Potassium 3.9 mmol/L (3.5-5.1)
--- NOTE | 2021-06-01 07:16 | Hospitalist Progress Note ---
Date of Service June 01, 2021 Assessment & Plan (1) Patella fracture: Plan: Right patellar refracture status post open reduction and internal fixation with infected seroma of the right knee Patient operatively treated as above with nausea Wound cultures have been sent, follow for speciation/sensitivities On perioperative cefazolin no history of MRSA. Patient does have a history of MSSA infection of the finger in 2019, Klebsiella and pseudomonal UTIs in the past. Patient with pseudomonal urine culture within the previous 3 months. Given infection with hardware present with risk for pseudomonal colonization will treat with cefepime at this time for pseudomonal coverage and gram-negative coverage,andadjust based on cultures. Continue vanco pending cultures. Consider adjunct rifampin if staph/strep speciation; deferred at this time. Dialysis do sing - WC pending, possible Enterococcus. 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 TDD ~128u. Glucose checks AC/at bedtime Goal BSG [id number] Continue basal bolus insulin.Based on home total daily doses would be Lantus 22 units twice daily, correction factor 20, carb ratio 6. 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 Appears near euvolemic, no signs of overload (5) Hypertension: Plan: Hypertension Continue amlodipine 5 mg twice daily Continue hydralazine 50 mg p.o. 3 times daily, hold for BP less than 110 Depression Continue venlafaxine 150 mg extended release daily Plan: DVT prophylaxis: Per primary team, anticipate resume 24 hours postop Diet: DM, dialysis Disposition: Medical surgical CODE STATUS: Reports she has been DNR/DNI in the past understands this decision, but feels her in the setting of surgery this is a special circumstance and would like to remain full code at this time/hospitalization Admission and Anticipated Discharge Date Admission Date: May 31, 2021 Subjective She is seen at bedside this morning. Reports since anesthesia wore off her knee has been aching, tolerable at time of assessment but worse with movement. Otherwise feels "okay ". Denies fever, chills, sweats, shortness of breath, difficulty breathing, chest pain, chest pressure, numbness, tingling. Sensation is intact in her ankles bilaterally and in her hands bilaterally. Discussed need for antibiotics at this time patient does not voice other questions or concerns Review of Systems Review of Systems: All systems reviewed & are unremarkable except as noted in Subjective Physical Exam Physical Exam: General: A&Ox3. NAD. Cooperative. HEENT: Atraumatic, normocephalic. Visual acuity intact, hearing intact. EOM grossly intact Pulm: Moderate air movement without wheezes rales or rhonchi. Symmetrical chest rise. No increased work of breathing. No respiratory distress. Cardiac: RRR, systolic murmur present. Radial pulses intact and symmetrical. Abdominal: Nontender, nondistended, soft. BS present. extremity: Right knee in postop wrap. Sensation in ankles intact to soft touch without asymmetry, PT pulses intact bilaterally. Belt Measurer strength intact in upper extremities. Results & Data Results & Data ([facility]) Vital Signs (Past 12 Hours) Vital Signs Temp Pulse Resp BP Pulse Ox 06/01/21 02:45 92 06/01/21 02:43 36.6 C 70 16 151/70 H 82 L 06/01/21 00:38 36.5 C 05/31/21 21:42 36.6 C 64 16 156/63 H 91 05/31/21 20:36 36.3 C L 67 16 168/60 H 91 05/31/21 19:30 36.6 C 64 16 173/61 H 100 PG Care Time/CCT Total # of Minutes Spent Total Time Spent with Patient: Total time spent is greater than 50% in coordination of care (as documented) at patient's floor/unit and/or counseling patient: Coding Level of Care Code 65951 Subseq Hosp Care Lvl 2 Diagnoses Patella fracture S82.009A Type 2 diabetes mellitus with insulin therapy E11.9; Z79.4 End-stage renal disease on hemodialysis N18.6; Z99.2 CAD (coronary artery disease) I25.10 Hypertension I10 Hypertension type: unspecified (1) Hypertension Hypertension type: unspecified Qualified Code(s): I10 - Essential (primary) hypertension
[2021-06-01 07:39] LABS: Estimated Average Glucose 131 mg/dl; Hemoglobin A1C 6.2 % (4.5-5.6)
--- NOTE | 2021-06-01 08:32 | Orthopedic Progress Note ---
Date of Service June 01, 2021 Assessment & Plan (1) Patella fracture: Overall she is doing fairly well. She underwent an ORIF of her right patella yesterday. The procedure went well. She did have an infected seroma in the area and cultures were obtained. She was seen by the hospitalist postoperatively and started on cefepime and vancomycin. Nephrology has also been consulted for her dialysis treatment. She can be weightbearing as tolerated on the right leg. We are still waiting culture results. Jason Masters was seen and examined at bedside this morning. Overall she is doing fairly well. She is not having too much pain. She has been seen by the hospitalist. She was started on cefepime and vancomycin for antibiotic. She is on aspirin for DVT prophylaxis. She can be weightbearing as tolerated in the knee immobilizer. She will be seen by nephrology today and likely set up with dialysis. Review of Systems All systems reviewed & are unremarkable except as noted in HPI & below. Physical Exam On physical examination of the right knee, she is in her knee immobilizer. Her legs out in full extension. She has active dorsiflexion plantarflexion of her right ankle. Sensation is intact throughout. Results & Data Results & Data Laboratory Results Cultures of the right knee are still pending. Diagnostic Findings . PG Care Time/CCT Total # of Minutes Spent Total Time Spent with Patient: Total time spent is greater than 50% in coordination of care (as documented) at patient's floor/unit and/or counseling patient: Coding Level of Care Code 75029 Post Operative Follow-Up Diagnoses Patella fracture S82.009A
[2021-06-01] MEDS ORDERED: EPOETIN ALFA 40,000 UNITS/ML VIAL IV ONE (08:48)
[2021-06-01] MEDS: CALCIUM 600MG + VIT D 400 IU TAB PO SCH (08:59)
[2021-06-01] MEDS: ASPIRIN 81 MG ECTAB PO SCH ×2 (08:59→20:43)
[2021-06-01] MEDS: DOCUSATE SODIUM 100 MG CAP PO SCH ×2 (08:59→20:42)
[2021-06-01] MEDS: VENLAFAXINE HCL XR 150 MG CAPXR PO SCH (08:59)
[2021-06-01] MEDS: CHOLECALCIFEROL 1,000 UNITS 25 MCG TAB PO SCH ×2 (08:59→20:44)
[2021-06-01] MEDS: CEROVITE ADV FORMULA TAB PO SCH ×2 (08:59→20:47)
[2021-06-01] MEDS: ASCORBIC ACID 500 MG TAB PO SCH (08:59)
[2021-06-01] MEDS: amLODIPine BESYLATE 5 MG TAB PO SCH ×2 (09:00→20:43)
[2021-06-01] MEDS ORDERED: VANCOMYCIN HCL 1,250 MG in SODIUM CHLORIDE 0.9% 250 ML IV ONE ×2 (09:00→16:00)
[2021-06-01] MEDS ORDERED: IRON SUCROSE 100 MG in SYRINGE 0 ML IV SCH (09:00)
[2021-06-01] MEDS ORDERED: MULTIVITAMIN TAB PO SCH (09:00)
[2021-06-01] MEDS: hydrALAZINE TAB 50 MG TAB PO SCH ×3 (09:00→20:43)
[2021-06-01] MEDS: INSULIN ASPART PER UNIT SC SCH ×4 (09:01→20:59)
--- NOTE | 2021-06-01 10:20 | Nephrology Consultation ---
Date of Consultation June 01, 2021 Assessment & Plan (1) End-stage renal disease on hemodialysis: Maintained on HD MWF: Rx 3.5 hrs, 180 optiflux, Qb 350/ Qd 800, 2K bath. EDW 83.5. AVF has been functioning well. Orders for HD today have been entered into the EHR and reviewed with the guanaco lysis nurse. Medications are appropriately dosed for IHD. Renal diet. (2) Anemia: Acute on chronic. Epogen 87294 units with HD today. Venofer 100 mg IV with HD. Repeat H/H tomorrow AM. (3) Patella fracture: POD#1 s/p ORIF. Infected seroma drained. Cultures pending. Remains on cefepime and vanco. Vancomycin dosing post HD was reviewed with pharmacy this AM. History of Present Illness Reason for Consultation: ESRD on HD Requesting Physician: Heriberto Ly DO Attending Physician: Heriberto Ly DO History of Present Illness Sonam Bolivar (Lucy) is a 80 year-old female with DM, CAD, hypertension, Grave's disease with hypothyroidism, obesity, and ESRD. ESRD attributed to DKD. Minerva is maintained on hemodialysis MWF at [facility] under my care. She has been tolerating HD well. Unfortunately, she suffered several recent falls. ORIF of a IC femoral fracture performed in February. She presented yesterday for ORIF of a patella fracture. Surgery was completed without complications. During surgery a seroma was drained. There was concern for infection. She has been admitted for antibiotic therapy and post operative monitoring. Cefepime and vancomycin provided post operatively. 1.75 gm IV vanco. AM level 16. Minerva feels well. She denies any fevers or chills. She denies significant pain. Her last dialysis treatment was complicated on May 30 without complications. Net UF 1.3 L. EDW has been 83.5 kg. Minerva has a well functioning L RC AVF which was placed by Dr. Gregg in October. It has been functioning well. Minerva has chronic anemia for which she is maintained on Micera and has required PRBC transfusion support as recently as February. Hemoglobin was 8.8 on May 23. Minerva is an DNR/DNI at dialysis. Allergies Allergy/AdvReac Type Severity Reaction Status Date / Time codeine AdvReac Mild DOES NOT Verified 05/31/21 14:[address] IT MAKES HER FEEL. Home Medications Medication Instructions Recorded Confirmed Type ascorbic acid (vitamin C) 500 mg 500 mg PO QAM tab 12/10/18 05/31/21 History tablet polyethylene glycol 3350 17 17 gm PO DAILY PRN gm 12/10/18 05/31/21 History gram/dose oral powder venlafaxine 150 mg 150 mg PO QAM cap 12/10/18 05/31/21 History capsule,extended release 24 hr vitamins A,C,Q-kvcm-bqvtgm 14,320 1 cap PO BID cap 12/10/18 05/31/21 History unit-226 mg-200 unit capsule (PreserVision AREDS) calcium carbonate 600 mg-vitamin 2 tab PO QAM 03/09/20 05/31/21 History D3 10 mcg (400 unit) chewable tablet (Calcium 600 with Vitamin D3) isosorbide mononitrate 120 mg 120 mg PO QAM #90 tab 10/25/20 05/31/21 Rx tablet,extended release 24 hr amlodipine 5 mg tablet 5 mg PO BID #180 tab 11/23/20 05/31/21 Rx cholecalciferol (vitamin D3) 25 50 mcg PO BID cap 12/27/20 05/31/21 History mcg (1,000 unit) capsule hydralazine 50 mg tablet 50 mg PO TID #90 tab 02/28/21 05/31/21 Rx flash glucose scanning reader 05/10/21 05/29/21 History (FreeStyle Flash 2 [place]) flash glucose sensor (FreeStyle 05/10/21 05/29/21 History Flash 2 Sensor) insulin aspart U-100 100 unit/mL 35 unit SUBCUT AC ml 05/10/21 05/31/21 History (3 mL) subcutaneous pen (Novolog Flexpen U-100 Insulin aspart) insulin glargine 100 unit/mL (3 23 unit SUBCUT QPM ml 05/10/21 05/31/21 History mL) subcutaneous pen (Lantus Solostar U-100 Insulin) multivitamin 1 cap PO DAILY 05/18/21 05/31/21 History tramadol 50 mg tablet 50 mg PO Q6H PRN #20 tab 05/18/21 05/31/21 Rx cephalexin 500 mg capsule 500 mg PO QID #40 cap 05/25/21 05/31/21 Rx atorvastatin 80 mg tablet 80 mg PO HS #90 tab 05/29/21 05/31/21 Rx Patient History Medical History Anemia AV fistula LEFT CAD (coronary artery disease) Carotid artery disease less than 50% ICA stenosis per 08/2016 carotid duplex CHF (congestive heart failure) Chronic gastroesophageal reflux disease Chronic kidney disease on HD Depression Diabetic peripheral neuropathy associated with type 2 diabetes mellitus Dialysis patient 3XWK (M/W/F) [facility]>FOLLOWED BY DR. HATHAWAY Dyslipidemia Gallstones Generalized osteoarthritis of multiple sites Graves disease H/O malignant neoplasm of uterine body Hiatal hernia History of kidney stones Hypertension Irregular heart beat metoprolol for this per pt Macular degeneration Moderate calcific aortic stenosis Multinodular goiter (nontoxic) Multiple thyroid nodules Obesity Osteopenia Secondary hyperparathyroidism Sleep apnea No device Type 2 diabetes mellitus with insulin therapy Surgical History H/O abdominoplasty H/O basal cell carcinoma excision H/O shoulder surgery Right History of appendectomy History of cataract surgery R/L History of colonoscopy History of esophagogastroduodenoscopy (EGD) History of hip surgery Closed intertrochanteric fracture of left femur 04/10/2021: 02/16/2021: Grade 4 view, MAC#3, ETT#7.0. No issues per anesthesia postop progress note. History of open reduction and internal fixation (ORIF) procedure right patella 05/18/2021: LMA#4 atraumatic + PNB. No issues per anesthesia postop progress note. History of tonsillectomy History of tooth extraction S/P complete hysterectomy Family History Father Diabetes Lung cancer Family history of diabetes mellitus Mother , in a home fire Hypertension Family history of diabetes mellitus Daughter Family history of diabetes mellitus Son Family history of diabetes mellitus Other No family history of adverse response to anesthesia Denies family history of Ovarian cancer Prostate cancer Myocardial infarction Breast cancer Colorectal cancer Social History Smoking Status: Never smoker Smoking End Date: 2004; Second Hand Exposure: No; Hx Alcohol Use: No Hx Substance Use: No Preferred Language: Portuguese Communication Ability: Effective Visual Impairment: No Limitations Hearing Ability: Normal Water Mechanic Required: No Beliefs That Will Affect Care: None marital status: / Current Living Situation: Family Current Living Situation Comment: lives with son and daughter in law current occupational status: retired Other Information That Helps Us Care for You: No Feels Safe at Home: Yes and Hesitant to Answer Safety Concerns: Feels Safe At This Time Safety Concerns Comment: unsteady at times Childhood Exposure to Second-Hand Smoke: Yes Dental Care, Regularly: No Physical Activity Frequency: Does not Exercise Seatbelt Use: always Sunscreen Use: No Assistive Devices: Cane, Denture - Upper, Denture - Lower, Walker and Wheelchair Assistive Devices Comment: READING GASSES, HAS NOT BEEN WEARING DENTURES Physical Exam Constitutional: well developed; no acute distress Eyes: no scleral abnormality and no corneal abnormality ENMT: Mouth: no oral mucosal abnormality and oral mucous membranes not dry edentulous Neck: normal visual inspection and trachea midline Respiratory: normal respiratory effort Auscultation: lungs clear to auscultation bilaterally Cardiovascular: Rate/Rhythm: regular rate Heart Sounds: normal S1, normal S2 and + murmur Extremities: + edema (dependent) and + AV fistula Musculoskeletal: Extremities: no cyanosis and no clubbing Skin: normal turgor; no lesions Neurologic: Motor/Sensory: no tremor and no asterixis Psychiatric: Orientation: alert and oriented x 3 Results & Data ([facility]) Vital Signs (Past 12 Hours) Vital Signs Temp Pulse Resp BP Pulse Ox 06/01/21 07:23 36.8 C 63 16 183/62 H 98 06/01/21 02:45 92 06/01/21 02:43 36.6 C 70 16 151/70 H 82 L 06/01/21 00:38 36.5 C Laboratory Results Laboratory Results - last 24 hr 05/31/21 05/31/21 05/31/21 14:43 14:43 14:43 WBC RBC Hgb Hct MCV MCH MCHC RDW Std Deviation RDW Coeff of Chris Plt Count MPV Immature Gran % (Auto) Neut % (Auto) Lymph % (Auto) [place] % (Auto) Eos % (Auto) Baso % (Auto) Neut # (Auto) Lymph # (Auto) [place] # (Auto) Eos # (Auto) Baso # (Auto) Immature Gran # (Auto) PT 10.4 INR 1.0 APTT 29.1 PTT Ratio 1.1 Sodium 138 Potassium 3.8 Chloride 99 Carbon Dioxide 31 Anion Gap 8 BUN 25 H Creatinine 2.49 H Est Cr Clr Drug Dosing 20.3 Est GFR ( Amer) 20.7 Est GFR (Non-Af Amer) 17.9 BUN/Creatinine Ratio 10.0 Glucose 154 H POC Glucose Estimat Average Glucose Hemoglobin A1c Calcium 9.4 Random Vancomycin Blood Type O Positive Antibody Screen NEGATIVE 05/31/21 05/31/21 05/31/21 14:56 17:29 19:51 WBC RBC Hgb Hct MCV MCH MCHC RDW Std Deviation RDW Coeff of Chris Plt Count MPV Immature Gran % (Auto) Neut % (Auto) Lymph % (Auto) [place] % (Auto) Eos % (Auto) Baso % (Auto) Neut # (Auto) Lymph # (Auto) [place] # (Auto) Eos # (Auto) Baso # (Auto) Immature Gran # (Auto) PT INR APTT PTT Ratio Sodium Potassium Chloride Carbon Dioxide Anion Gap BUN Creatinine Est Cr Clr Drug Dosing Est GFR ( Amer) Est GFR (Non-Af Amer) BUN/Creatinine Ratio Glucose POC Glucose 164 H 112 H 108 H Estimat Average Glucose Hemoglobin A1c Calcium Random Vancomycin Blood Type Antibody Screen 05/31/21 06/01/21 06/01/21 21:42 00:41 05:47 WBC 11.25 H RBC 3.04 L Hgb 8.5 L Hct 29.0 L MCV 95.4 MCH 28.0 MCHC 29.3 L RDW Std Deviation 61.4 H RDW Coeff of Chris 17.6 H Plt Count 303 MPV 8.9 Immature Gran % (Auto) 0.3 Neut % (Auto) 77.4 Lymph % (Auto) 7.8 [place] % (Auto) 12.3 Eos % (Auto) 1.9 Baso % (Auto) 0.3 Neut # (Auto) 8.72 H Lymph # (Auto) 0.88 L [place] # (Auto) 1.38 H Eos # (Auto) 0.21 Baso # (Auto) 0.03 Immature Gran # (Auto) 0.03 H PT INR APTT PTT Ratio Sodium Potassium Chloride Carbon Dioxide Anion Gap BUN Creatinine Est Cr Clr Drug Dosing Est GFR ( Amer) Est GFR (Non-Af Amer) BUN/Creatinine Ratio Glucose POC Glucose 115 H 88 Estimat Average Glucose Hemoglobin A1c Calcium Random Vancomycin Blood Type Antibody Screen 06/01/21 06/01/21 06/01/21 05:47 05:47 05:47 WBC RBC Hgb Hct MCV MCH MCHC RDW Std Deviation RDW Coeff of Chris Plt Count MPV Immature Gran % (Auto) Neut % (Auto) Lymph % (Auto) [place] % (Auto) Eos % (Auto) Baso % (Auto) Neut # (Auto) Lymph # (Auto) [place] # (Auto) Eos # (Auto) Baso # (Auto) Immature Gran # (Auto) PT INR APTT PTT Ratio Sodium 138 Potassium 3.9 Chloride 101 Carbon Dioxide 30 Anion Gap 7 BUN 30 H Creatinine 2.90 H D Est Cr Clr Drug Dosing 17.7 Est GFR ( Amer) 17.3 Est GFR (Non-Af Amer) 14.9 BUN/Creatinine Ratio 10.3 Glucose 78 POC Glucose Estimat Average Glucose 131 Hemoglobin A1c 6.2 H Calcium 8.9 Random Vancomycin 15.8 Blood Type Antibody Screen 06/01/21 08:10 WBC RBC Hgb Hct MCV MCH MCHC RDW Std Deviation RDW Coeff of Chris Plt Count MPV Immature Gran % (Auto) Neut % (Auto) Lymph % (Auto) [place] % (Auto) Eos % (Auto) Baso % (Auto) Neut # (Auto) Lymph # (Auto) [place] # (Auto) Eos # (Auto) Baso # (Auto) Immature Gran # (Auto) PT INR APTT PTT Ratio Sodium Potassium Chloride Carbon Dioxide Anion Gap BUN Creatinine Est Cr Clr Drug Dosing Est GFR ( Amer) Est GFR (Non-Af Amer) BUN/Creatinine Ratio Glucose POC Glucose 91 Estimat Average Glucose Hemoglobin A1c Calcium Random Vancomycin Blood Type Antibody Screen PG Care Time/CCT Total # of Minutes Spent Total Time Spent with Patient: Total time spent is greater than 50% in coordination of care (as documented) at patient's floor/unit and/or counseling patient: Coding Level of Care Code 11402 Inpt Consult Level 5 Diagnoses Anemia N18.6; D63.1; Z99.2 Anemia type: due to chronic kidney disease Chronic kidney disease stage: on chronic dialysis End-stage renal disease on hemodialysis N18.6; Z99.2 Patella fracture S82.009A (1) Anemia Anemia type: due to chronic kidney disease Chronic kidney disease stage: on chronic dialysis Qualified Code(s): N18.6 - End stage renal disease; D63.1 - Anemia in chronic kidney disease; Z99.2 - Dependence on renal dialysis
--- NOTE | 2021-06-01 12:08 | Pharmacy Report ---
Pharmacy Abx Dose Progress Nt - Date of Service June 01, 2021 - Pharmacy Dosing Scope The patient is currently receiving the following antimicrobial agents per Pharmacy consult: Vancomycin IV based on level - Objective Vital Signs (Past 12hrs): Vital Signs Temp Pulse Pulse Pulse Resp BP BP 06/01/21 11:20 63 131/60 06/01/21 11:00 65 128/54 L 06/01/21 10:40 62 121/57 L 06/01/21 10:20 61 148/60 H 06/01/21 10:11 62 171/65 H 06/01/21 10:01 36.6 C 67 06/01/21 07:23 36.8 C 63 16 183/62 H 06/01/21 02:45 06/01/21 02:43 36.6 C 70 16 151/70 H 06/01/21 00:38 36.5 C Pulse Ox 06/01/21 11:20 06/01/21 11:00 06/01/21 10:40 06/01/21 10:20 06/01/21 10:11 06/01/21 10:01 06/01/21 07:23 98 06/01/21 02:45 92 06/01/21 02:43 82 L 06/01/21 00:38 Lab Results (24hrs): Laboratory Tests (24 Hours) 06/01/21 06/01/21 06/01/21 05:47 05:47 05:47 WBC 11.25 H Neut # (Auto) 8.72 H Creatinine 2.90 H D Est Cr Clr Drug Dosing 17.7 Random Vancomycin 15.8 05/31/21 14:43 WBC Neut # (Auto) Creatinine 2.49 H Est Cr Clr Drug Dosing 20.3 Random Vancomycin Micro Results: 05/31/21 Unknown Gram Stain - Final Knee,Right Aerobic and Anaerobic Culture - Pending - Risk Factors for Resistance * Chronic dialysis within the past 30 days * History of Klebsiella and Pseudomonas UTIs * Antimicrobial use within the last 90 days: Keflex PO - 05/26/21 - Assessment & Plan Assessment 80 year old F admitted for ORIF of R knee and removal of hardware following fall and fracture yesterday. Found infected seroma during surgery. Awaiting culture results. Patient is on chronic Hemo-dialysis MWF. Vancomycin and Cefepime started yesterday for risk of MRSA and Pseudomonas. Loading dose of Vanco 1750 mg (21.5 mg/kg) IV x 1 given last night. Random Vanc level obtained this AM. See below. Laboratory Tests 06/01/21 05:47 Random Vancomycin 15.8 Plan Vancomycin IV * Random level of 15.8 mcg/ml is therapeutic. * Patient is on hemo-dialysis. Dialysis today. * Vancomycin dose 1250 mg (15 mg/kg) IV x1 today scheduled for after dialysis per dialysis guided dosing. * Goal trough level for infected knee: 15 to 20 mcg/mL * Random level ordered for: 06/02 with AM labs. * Will dose Vancomycin by levels per dialysis dosing guidelines. Pharmacy will continue to follow and will adjust dose/frequency as necessary. Thank you.
--- NOTE | 2021-06-01 14:25 | Pharmacy Report ---
Pharmacy Glycemic Short Note 2 - Date of Service June 01, 2021 - Glycemic Short BSG Results (Last 24 hours): 05/31/21 05/31/21 05/31/21 14:43 14:56 17:29 Glucose 154 H POC Glucose 164 H 112 H 05/31/21 05/31/21 06/01/21 19:51 21:42 00:41 Glucose POC Glucose 108 H 115 H 88 06/01/21 06/01/21 06/01/21 05:47 08:10 13:41 Glucose 78 POC Glucose 91 82 OUTPATIENT ANTIDIABETIC REGIMEN: * Lantus 23 units SQ HS * Novolog 7 units TID with meals + sliding scale and 3-4 units at HS if BSG greater than 250 mg/dl ASSESSMENT: * 80 y/o F admitted with infected seroma of R knee. Patient with history of diabetes managed on basal and bolus insulin at home. * She also has ESRD with HD on MWF. * Basal Lantus started at lower dose last night based off her previous admissions. * Novolog started based on wt and stress between 2 and 3 but this was loosened to stress of 2 this AM since she was going to dialysis this morning. PLAN FOR INPATIENT GLYCEMIC CONTROL: * Basal insulin * Lantus 15 units SQ HS * Bolus insulin * NovoLog per scale ACHS or Q6hrs while NPO * Goal Range: Low 110 mg/dL - High 140 mg/dL * Correction Factor: 30 mg/dL/unit * Nutritional / Prandial insulin per carb ratio of 1 unit per 10 grams CHO consumed PLAN FOR DISCHARGE: * Recommend continue on home insulin regimen with basal Lantus and Novolog with meals and HS.
[2021-06-01] MEDS: CEFEPIME 1,000 MG in SYRINGE 0 ML IV SCH (20:35)
[2021-06-01] MEDS: SENNA 8.6 MG TAB PO SCH (20:43)
[2021-06-01] MEDS: ATORVASTATIN 40 MG TAB PO SCH (20:43)
[2021-06-01] MEDS: INSULIN GLARGINE SOLOSTAR 100 UNITS/ML 3 ML PEN SC SCH (20:46)
[2021-06-02 05:53] LABS: Basophils # (auto) 0.03 K/uL (0-0.2); Basophils % (auto) 0.3 %; Eosinophils # (auto) 0.42 K/uL (0-0.5); Eosinophils % (auto) 4.4 %; Hematocrit (blood only) 28.9 % (37-47); Hemoglobin 8.5 g/dL (12.0-16.0); Immature Granulocytes # (auto) 0.08 K/uL (0.00-0.02); Immature Granulocytes % (auto) 0.8 %; Lymphocytes # (auto) 1.48 K/uL (1.2-3.4); Lymphocytes % (auto) 15.4 %; Mean Corpuscular Hgb Conc 29.4 g/dL (32-36); Mean Corpuscular Volume 95.1 fL (80-100); Monocytes # (auto) 1.19 K/uL (0.11-0.59); Monocytes % (auto) 12.4 %; Neutrophils # (auto) 6.41 K/uL (1.4-6.5); Neutrophils % (auto) 66.7 %; Platelet Count 255 K/uL (130-400); RDW Coefficient of Variation 17.6 % (11.5-14.5); Red Blood Count 3.04 M/uL (4.2-5.4); White Blood Count 9.61 K/uL (4.8-10.8)
[2021-06-02 06:19] LABS: BUN Creatinine Ratio 10.8 (10-20); Calcium 9.3 mg/dl (8.5-10.1); Creatinine Clr Calc Pharmacy 20.9 ml/min; Est GFR (African American) 21.6 ml/min; Est GFR (Non-African American) 18.6 ml/min; Magnesium 2.1 mg/dl (1.7-2.4); Phosphorus 3.1 mg/dl (2.5-4.9); Potassium 4.1 mmol/L (3.5-5.1)
--- NOTE | 2021-06-02 08:43 | Pharmacy Report ---
Pharmacy Abx Dose Short Note - Date of Service June 02, 2021 - Assessment & Plan Assessment 80 year old F receiving vancomycin + cefepime for treatment of infected R knee Underwent an ORIF of right patella. POD#2 Day #3 of antimicrobial therapy R knee growing probably enterococcus. Sensitivities to follow. Plan Vancomycin * Random level of 17.8 mcg/mL is therapeutic for indication * Patient is on chronic HD MWF as an outpatient. Vancomycin will be dosed based on random pre-HD levels * Pharmacy will continue to follow patient's dialysis schedule closely and dose Vancomycin (to be given post HD) appropriately Cefepime * Added given patient's hx of pseudomonal UTIs * Approximately 68% of the total amount of cefepime present in the body at the start of dialysis will be removed during a 3-hour dialysis period * Target dose 2 g IV every 8 hours appropriately adjusted to 1 g IV every 24 hours given patient's HD status Thank you.
--- NOTE | 2021-06-02 08:44 | Orthopedic Progress Note ---
Date of Service June 02, 2021 Assessment & Plan (1) Patella fracture: She is doing about as well as expected. She is on cefepime and vancomycin. We are awaiting final cultures and sensitivities. Initial cultures have grown out Enterococcus. She has been seen by nephrology and did dialysis yesterday. She has been seen by therapy and was able to stand but unable to ambulate. Case management is seeing her as well. She did go to rehab after hip fracture 4 months ago but she is refusing to go back to rehab. She wants to go home. In order to go home, she will need to at least be able to take a few steps with a walker. We will see how she does with therapy over the next day or 2. We will await final culture sensitivities. She will likely need a 6 weeks course of IV antibiotics. Jason Masters was seen and examined at bedside this morning. She was very sedated. I had trouble waking her. She seemed to be breathing fine and seemed comfortable. Her vital signs are stable. She has been seen by nephrology and had dialysis yesterday. She was seen by therapy and was able to stand but unable to ambulate. She is currently on IV antibiotics. Review of Systems All systems reviewed & are unremarkable except as noted in HPI & below. Physical Exam On physical examination of the right knee, the knee immobilizer is in place. Her leg is out full extension. I am unable to do a neurovascular exam because she is very sedated. . Results & Data Results & Data Laboratory Results . Diagnostic Findings . PG Care Time/CCT Total # of Minutes Spent Total Time Spent with Patient: Total time spent is greater than 50% in coordination of care (as documented) at patient's floor/unit and/or counseling patient: Coding Level of Care Code 62001 Post Operative Follow-Up Diagnoses Patella fracture S82.009A
[2021-06-02] MEDS: DOCUSATE SODIUM 100 MG CAP PO SCH ×2 (08:57→22:21)
[2021-06-02] MEDS: hydrALAZINE TAB 50 MG TAB PO SCH ×3 (08:57→22:21)
[2021-06-02] MEDS: ASPIRIN 81 MG ECTAB PO SCH ×2 (08:58→22:22)
[2021-06-02] MEDS: CHOLECALCIFEROL 1,000 UNITS 25 MCG TAB PO SCH ×2 (08:58→22:21)
[2021-06-02] MEDS: CEROVITE ADV FORMULA TAB PO SCH ×2 (08:59→22:20)
[2021-06-02] MEDS: ASCORBIC ACID 500 MG TAB PO SCH (08:59)
[2021-06-02] MEDS: CALCIUM 600MG + VIT D 400 IU TAB PO SCH (08:59)
[2021-06-02] MEDS: VENLAFAXINE HCL XR 150 MG CAPXR PO SCH (08:59)
[2021-06-02] MEDS: amLODIPine BESYLATE 5 MG TAB PO SCH ×2 (09:00→22:20)
[2021-06-02] MEDS: ACETAMINOPHEN 500 MG TAB PO SCH ×3 (09:01→22:21)
[2021-06-02] MEDS: INSULIN ASPART PER UNIT SC SCH ×4 (09:07→22:24)
--- NOTE | 2021-06-02 10:20 | Nephrology Progress Note ---
Date of Service June 02, 2021 Assessment & Plan (1) End-stage renal disease on hemodialysis: Plan: * Maintained on HD MWF: Rx 3.5 hrs, 180 optiflux, Qb 350/ Qd 800, 2K bath. EDW 83.5. AVF has been functioning well. * Clinically euvolemic. Electrolyte balance is acceptable. No acute indication for HD today (2) Anemia: Plan: * Epogen 83438 units and Venofer 100 mg IV given w/ HD 06/01 (3) Patella fracture: Plan: * s/p ORIF of R patella. Infected seroma drained * Cultures pending Admission and Anticipated Discharge Date Admission Date: May 31, 2021 Subjective Ms. Bolivar was evaluated in her hospital room this morning. She reports weakness and is anxious to participate in PT today. She was dialyzed yesterday without complication Review of Systems Constitutional: + weakness; no fever Eyes: no problem reported Ear, Nose, Mouth, Throat: no problem reported Respiratory: no cough and no dyspnea Cardiovascular: no chest pain, no palpitations and no edema Gastrointestinal: no abdominal pain, no nausea, no vomiting and no diarrhea/loose stools Musculoskeletal: no back pain Integumentary: no rash Neurologic: no confusion Physical Exam Constitutional: not in distress Eyes: PERRL, conjunctivae normal, anicteric sclerae ENMT: external ear and nose normal, oropharynx normal Neck: trachea midline, no thyromegaly Respiratory: normal respiratory effort, lungs clear to auscultation Cardiovascular: Rate/Rhythm: regular rate and regular rhythm Extremities: no edema Gastrointestinal (Abdomen): normal bowel sounds, soft, nontender, no hepatosplenomegaly Musculoskeletal: Extremities: no cyanosis Skin: no rashes, warm and dry Neurologic: awake; not confused Results & Data ([facility]) Vital Signs (Past 12 Hours) Vital Signs Temp Pulse Resp BP Pulse Ox 06/02/21 07:20 36.7 C 16 185/68 H 96 06/01/21 23:14 36.6 C 65 16 168/52 H 90 Laboratory Results Laboratory Tests 06/02/21 06/02/21 05:31 05:31 WBC 9.61 Hgb 8.5 L Hct 28.9 L Plt Count 255 Sodium 136 Potassium 4.1 Chloride 100 Carbon Dioxide 30 BUN 26 H Creatinine 2.41 H D Glucose 94 PG Care Time/CCT Total # of Minutes Spent Total Time Spent with Patient: Total time spent is greater than 50% in coordination of care (as documented) at patient's floor/unit and/or counseling patient: Coding Level of Care Code 39663 Subseq Hosp Care Lvl 3 Diagnoses End-stage renal disease on hemodialysis N18.6; Z99.2 Anemia N18.6; D63.1; Z99.2 Anemia type: due to chronic kidney disease Chronic kidney disease stage: on chronic dialysis Patella fracture S82.009A (1) Anemia Anemia type: due to chronic kidney disease Chronic kidney disease stage: on chronic dialysis Qualified Code(s): N18.6 - End stage renal disease; D63.1 - Anemia in chronic kidney disease; Z99.2 - Dependence on renal dialysis
--- NOTE | 2021-06-02 17:48 | Hospitalist Progress Note ---
Date of Service June 02, 2021 Assessment & Plan (1) Patella fracture: Plan: Right patellar refracture status post open reduction and internal fixation with infected seroma of the right knee Wound cultures have been sent, growing probable Enterococcus no history of MRSA. Patient does have a history of MSSA infection of the finger in 2019, Klebsiella and pseudomonal UTIs in the past. Patient with pseudomonal urine culture within the previous 3 months. Given infection with hardware present with risk for pseudomonal colonization will treat with cefepime at this time for pseudomonal coverage and gram-negative coverage,and adjust based on cultures. Continue vanco pending cultures. 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 Appears near euvolemic, no signs of overload (5) Hypertension: Plan: Hypertension Continue amlodipine 5 mg twice daily Continue hydralazine 50 mg p.o. 3 times daily, hold for BP less than 110 Depression Continue venlafaxine 150 mg extended release daily (6) Anemia: Plan: hgb 8.5 and stable from yesterday, normocytic last transferrin sat low at 9% in 02/2021 received Venofer and Epogen through Nephro on 06/01 follow CBC Plan: DVT prophylaxis: ASA 81mg bid Diet: DM, dialysis Disposition: Medical surgical, hopeful for dc to home with IV abx at HD center CODE STATUS: Reports she has been DNR/DNI in the past understands this decision, but feels her in the setting of surgery this is a special circumstance and would like to remain full code at this time/hospitalization Admission and Anticipated Discharge Date Admission Date: May 31, 2021 Subjective Pt has no pain in knee. Is adamant she will not go to rehab and wants to go home. No CP or OSB, no nausea. Discussed PICC line placement Review of Systems Review of Systems: All systems reviewed & are unremarkable except as noted in HPI & below Physical Exam Constitutional: WD/WN, vitals as above Eyes: + anicteric sclerae Neck: trachea midline, no thyromegaly Respiratory: normal respiratory effort, lungs clear to auscultation Cardiovascular: RRR, no murmur, no edema Chest (Breasts): Chest: normal inspection of chest Gastrointestinal (Abdomen): normal bowel sounds, soft, nontender, no hepatosplenomegaly Musculoskeletal: Extremities: + extremities abnormal to inspection (RLE in knee brace), no cyanosis and no clubbing Skin: no rashes, warm and dry Neurologic: moves all extremities and awake; no focal motor deficits Psychiatric: A+Ox3, euthymic affect Lymphatic: no lymphedema Results & Data Results & Data ([facility]) Vital Signs (Past 12 Hours) Vital Signs Temp Resp BP Pulse Ox 06/02/21 07:20 36.7 C 16 185/68 H 96 PG Care Time/CCT Total # of Minutes Spent Total Time Spent with Patient: Total time spent is greater than 50% in coordination of care (as documented) at patient's floor/unit and/or counseling patient: Coding Level of Care Code 42102 Subseq Hosp Care Lvl 2 Diagnoses Patella fracture S82.009A Type 2 diabetes mellitus with insulin therapy E11.9; Z79.4 End-stage renal disease on hemodialysis N18.6; Z99.2 CAD (coronary artery disease) I25.10 Hypertension I10 Hypertension type: unspecified Anemia N18.6; D63.1; Z99.2 Anemia type: due to chronic kidney disease Chronic kidney disease stage: on chronic dialysis (1) Hypertension Hypertension type: unspecified Qualified Code(s): I10 - Essential (primary) hypertension (2) Anemia Anemia type: due to chronic kidney disease Chronic kidney disease stage: on chronic dialysis Qualified Code(s): N18.6 - End stage renal disease; D63.1 - Anemia in chronic kidney disease; Z99.2 - Dependence on renal dialysis
[2021-06-02] MEDS: INSULIN GLARGINE SOLOSTAR 100 UNITS/ML 3 ML PEN SC SCH (22:17)
[2021-06-02] MEDS: SENNA 8.6 MG TAB PO SCH (22:22)
[2021-06-02] MEDS: ATORVASTATIN 40 MG TAB PO SCH (22:22)
[2021-06-02] MEDS: CEFEPIME 1,000 MG in SYRINGE 0 ML IV SCH (22:44)
[2021-06-03 06:48] LABS: Hematocrit (blood only) 28.7 % (37-47); Hemoglobin 8.6 g/dL (12.0-16.0); Mean Corpuscular Hemoglobin 28.4 pg (25-34); Mean Corpuscular Volume 94.7 fL (80-100); Mean Platelet Volume 8.9 fL (7.4-10.4); Platelet Count 290 K/uL (130-400); RDW Coefficient of Variation 17.6 % (11.5-14.5); RDW Standard Deviation 60.7 fL (36.4-46.3); Red Blood Count 3.03 M/uL (4.2-5.4); White Blood Count 8.26 K/uL (4.8-10.8)
[2021-06-03 07:16] LABS: BUN Creatinine Ratio 14.5 (10-20); Creatinine Clr Calc Pharmacy 16.6 ml/min; Est GFR (African American) 16.4 ml/min; Est GFR (Non-African American) 14.1 ml/min; Potassium 4.1 mmol/L (3.5-5.1)
--- NOTE | 2021-06-03 07:56 | Orthopedic Progress Note ---
Date of Service June 03, 2021 Assessment & Plan (1) Patella fracture: She is doing as well as expected with regards to her knee. She will be in the knee immobilizer for 6 weeks. She can be weightbearing as tolerated while in the knee immobilizer. Her final cultures have grown out Enterococcus and her sensitivities are back. She can receive IV vancomycin during dialysis. She will remain on aspirin 81 mg twice a day for 6 weeks for DVT prophylaxis. She is orthopedically stable for discharge when medically ready. She is adamant that she wants to return home. She needs to follow-up with orthopedics in 2 weeks for staple removal. I spoke with the hospitalist personally and they will set up the PICC line and the IV antibiotics before discharge. Jason Masters was seen and examined at bedside this morning. Overall she is doing better. She is having some soreness in the knee but its not too bad. She was seen by therapy yesterday. She is able to easily do transfers and to stand but she was only able to take a couple of small shuffling steps. The dressing had been changed. Her final cultures and sensitivities are back. She has no new complaints. Review of Systems All systems reviewed & are unremarkable except as noted in HPI & below. Physical Exam On physical examination of the right knee, I took down the dressing and the incision was clean and dry. There is a little bit of swelling but it was not too bad. I put her knee immobilizer back in place. She had active dorsiflexion plantarflexion of her right ankle. Results & Data Results & Data Laboratory Results . Diagnostic Findings . PG Care Time/CCT Total # of Minutes Spent Total Time Spent with Patient: Total time spent is greater than 50% in coordination of care (as documented) at patient's floor/unit and/or counseling patient: Coding Level of Care Code 91106 Post Operative Follow-Up Diagnoses Patella fracture S82.009A
[2021-06-03] MEDS: hydrALAZINE TAB 50 MG TAB PO SCH ×2 (07:58→13:14)
[2021-06-03] MEDS: ACETAMINOPHEN 500 MG TAB PO SCH ×2 (07:58→13:15)
[2021-06-03] MEDS: CEROVITE ADV FORMULA TAB PO SCH (07:58)
[2021-06-03] MEDS: ASCORBIC ACID 500 MG TAB PO SCH (07:59)
[2021-06-03] MEDS: amLODIPine BESYLATE 5 MG TAB PO SCH (07:59)
[2021-06-03] MEDS: ASPIRIN 81 MG ECTAB PO SCH (07:59)
[2021-06-03] MEDS: VENLAFAXINE HCL XR 150 MG CAPXR PO SCH (07:59)
[2021-06-03] MEDS: CALCIUM 600MG + VIT D 400 IU TAB PO SCH (07:59)
[2021-06-03] MEDS: DOCUSATE SODIUM 100 MG CAP PO SCH (08:00)
[2021-06-03] MEDS: CHOLECALCIFEROL 1,000 UNITS 25 MCG TAB PO SCH (08:00)
[2021-06-03] MEDS ORDERED: hydrALAZINE HCL 20 MG/ML VIAL IV ONE (08:43)
--- NOTE | 2021-06-03 08:48 | Nephrology Progress Note ---
Date of Service June 03, 2021 Assessment & Plan (1) End-stage renal disease on hemodialysis: Plan: * Maintained on HD MWF: Rx 3.5 hrs, 180 optiflux, Qb 350/ Qd 800, 2K bath. EDW 83.5. AVF has been functioning well. * Clinically euvolemic. Electrolyte balance is acceptable. No acute indication for HD today * Will schedule HD for tomorrow if still hospitalized * If discharge is anticipated, please call [facility] to resume outpatient HD (P [phone], F [phone]) * 6 week antibiotic therapy needed: Consider Vanco 1 g IV after each HD with monitoring of levels weekly (HD unit should have Vancomycin in stock, fax order to unit) or place PICC and consider Ampicillin 2g IV q24 hours administered after HD on dialysis days (2) Anemia: Plan: * Epogen 69512 units and Venofer 100 mg IV given w/ HD 06/01 (3) Patella fracture: Plan: * s/p ORIF of R patella. Infected seroma drained * Culture + enterococcus Admission and Anticipated Discharge Date Admission Date: May 31, 2021 Subjective Ms. Bolivar was evaluated in her hospital room this morning. She voices no new medical concerns Review of Systems Constitutional: + weakness; no fever Eyes: no problem reported Ear, Nose, Mouth, Throat: no problem reported Respiratory: no cough and no dyspnea Cardiovascular: no chest pain, no palpitations and no edema Gastrointestinal: no abdominal pain, no nausea, no vomiting and no diarrhea/loose stools Musculoskeletal: no back pain Integumentary: no rash Neurologic: no confusion Physical Exam Constitutional: not in distress Eyes: PERRL, conjunctivae normal, anicteric sclerae ENMT: external ear and nose normal, oropharynx normal Neck: trachea midline, no thyromegaly Respiratory: normal respiratory effort, lungs clear to auscultation Cardiovascular: Rate/Rhythm: regular rate and regular rhythm Extremities: no edema Gastrointestinal (Abdomen): normal bowel sounds, soft, nontender, no hepatosplenomegaly Musculoskeletal: Extremities: no cyanosis Skin: no rashes, warm and dry Neurologic: awake; not confused Results & Data ([facility]) Vital Signs (Past 12 Hours) Vital Signs Temp Pulse Resp BP Pulse Ox 06/03/21 08:43 192/63 H 06/03/21 07:36 36.6 C 88 18 207/69 H 95 06/02/21 22:22 36.8 C 87 18 147/62 H 91 Laboratory Results Laboratory Tests 06/03/21 06/03/21 06:07 06:07 WBC 8.26 Hgb 8.6 L Hct 28.7 L Plt Count 290 Sodium 132 L Potassium 4.1 Chloride 102 Carbon Dioxide 28 BUN 44 H Creatinine 3.03 H D Glucose 153 H Calcium 10.0 PG Care Time/CCT Total # of Minutes Spent Total Time Spent with Patient: Total time spent is greater than 50% in coordination of care (as documented) at patient's floor/unit and/or counseling patient: Coding Level of Care Code 29831 Subseq Hosp Care Lvl 3 Diagnoses End-stage renal disease on hemodialysis N18.6; Z99.2 Anemia N18.6; D63.1; Z99.2 Anemia type: due to chronic kidney disease Chronic kidney disease stage: on chronic dialysis Patella fracture S82.009A (1) Anemia Anemia type: due to chronic kidney disease Chronic kidney disease stage: on chronic dialysis Qualified Code(s): N18.6 - End stage renal disease; D63.1 - Anemia in chronic kidney disease; Z99.2 - Dependence on renal dialysis
[2021-06-03] MEDS: INSULIN ASPART PER UNIT SC SCH ×2 (08:49→13:13)
[2021-06-03] MEDS: oxyCODONE HCL IR 5 MG TAB (IMMEDIATE RELEASE) PO PRN (10:04)
--- NOTE | 2021-06-03 10:12 | Hospitalist Progress Note ---
Date of Service June 03, 2021 Assessment & Plan (1) Patella fracture: Plan: Right patellar refracture status post open reduction and internal fixation with infected seroma of the right knee Treated empirically with Cefepime and Vanco IV initially Wound cultures have been sent, growing Enterococcus faecalis, pansensitive Given infection with hardware present with risk for colonization will treat with IV Vancomycin x 6 weeks as per my d/w Orthopedic Surgeon. SHe will receive her IV Vancomycin with HD if random trough levels < 17 at dialysis She does not need a PICC line as per my d/w Dr. Spangler of Nephrology as her Vanco can be given through her AVF after HD completed. 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 Appears near euvolemic, no signs of overload (5) Hypertension: Plan: Hypertension-BPs elevated secondary to pain in knee on day of discharge with systolic 209. Gave IV hydralazine 5mg and continue home meds, control pain with pain medication Continue amlodipine 5 mg twice daily Continue hydralazine 50 mg p.o. 3 times daily Depression Continue venlafaxine 150 mg extended release daily (6) Anemia: Plan: hgb 8.5 and stable from yesterday, normocytic last transferrin sat low at 9% in 02/2021 received Venofer and Epogen through Nephro on 06/01 follow CBC as outpt Plan: DVT prophylaxis: ASA 81mg bid Disposition: dc to home with IV abx at HD center. I have made these arrangements with Nephrology and Case Management--> CM will fax over Rx for IV Vanco x 6 week course. Should have random Vanco level drawn prior to HD and dose with Vanco if level< 17. Her last dose of IV Vanco was on 06/01/21 and was 1250mg. Her last random Vanco level was on 06/02 and was 17.8 CODE STATUS: Reports she has been DNR/DNI in the past understands this decision, but feels her in the setting of surgery this is a special circumstance and would like to remain full code at this time/hospitalization Admission and Anticipated Discharge Date Admission Date: May 31, 2021 Subjective Pt having pain in right knee but feels she is ready for discharge. Requesting a pain pill. BPs elevated today likely due to pain. Gve IV hydralazine and usual po meds today. No CP or SOB, no headache. Is eating and drinking. Review of Systems Review of Systems: All systems reviewed & are unremarkable except as noted in HPI & below Physical Exam Constitutional: WD/WN, vitals as above Eyes: + anicteric sclerae Neck: trachea midline, no thyromegaly Respiratory: normal respiratory effort, lungs clear to auscultation Cardiovascular: RRR, no murmur, no edema Chest (Breasts): Chest: normal inspection of chest Gastrointestinal (Abdomen): normal bowel sounds, soft, nontender, no he patosplenomegaly Musculoskeletal: Extremities: + extremities abnormal to inspection (RLE in knee brace), no cyanosis and no clubbing Skin: no rashes, warm and dry Neurologic: moves all extremities and awake; no focal motor deficits Psychiatric: A+Ox3, euthymic affect Lymphatic: no lymphedema Results & Data Results & Data ([facility]) Vital Signs (Past 12 Hours) Vital Signs Temp Pulse Resp BP Pulse Ox 06/03/21 08:43 192/63 H 06/03/21 07:36 36.6 C 88 18 207/69 H 95 06/02/21 22:22 36.8 C 87 18 147/62 H 91 Laboratory Results 06/03/21 06:07 06/03/21 06:07 Wound cx with Enterococcus faecalis, pansensitive PG Care Time/CCT Total # of Minutes Spent Total Time Spent with Patient: Total time spent is greater than 50% in coordination of care (as documented) at patient's floor/unit and/or counseling patient: Coding Level of Care Code 06371 Subseq Hosp Care Lvl 3 Diagnoses Patella fracture S82.009A Type 2 diabetes mellitus with insulin therapy E11.9; Z79.4 End-stage renal disease on hemodialysis N18.6; Z99.2 CAD (coronary artery disease) I25.10 Hypertension I10 Hypertension type: unspecified Anemia N18.6; D63.1; Z99.2 Anemia type: due to chronic kidney disease Chronic kidney disease stage: on chronic dialysis (1) Hypertension Hypertension type: unspecified Qualified Code(s): I10 - Essential (primary) hypertension (2) Anemia Anemia type: due to chronic kidney disease Chronic kidney disease stage: on chronic dialysis Qualified Code(s): N18.6 - End stage renal disease; D63.1 - Anemia in chronic kidney disease; Z99.2 - Dependence on renal dialysis
[2021-06-03] MEDS ORDERED: INSULIN GLARGINE SOLOSTAR 100 UNITS/ML 3 ML PEN SC SCH (21:00)
[2021-06-04] MEDS ORDERED: HEPARIN SOD (PORCINE) 1000 UNIT/ML IV SCH (07:00)
[2021-06-04] MEDS ORDERED: HEPARIN SOD (PORCINE) 1000 UNIT/ML IV ONE (07:00)
[2021-06-04] MEDS ORDERED: SODIUM CHLORIDE 0.9% 1000ML 1,000 ML IV PRN (07:00)
[2021-06-04] MEDS ORDERED: EPOETIN ALFA 10,000 UNITS/ML VIAL IV ONE (08:00)
--- NOTE | 2021-06-09 07:50 | Discharge Summary ---
Date of Service June 09, 2021 Principal Diagnosis Same as "Discharge Diagnosis" noted below under Discharge Instructions. Discharge Exam On physical examination of the right knee, I took down the dressing and the incision was clean and dry. There is a little bit of swelling but it was not too bad. I put her knee immobilizer back in place. She had active dorsiflexion plantarflexion of her right ankle. Discharge Data Consultations 05/31/21 18:17 Consult Nephrology Routine 05/31/21 18:36 Consult Hospitalist Routine Procedures Performed Operation Date: 05/31/21 07:00 Actual Procedures p Incision and Debridement Right Knee, Right Open Reduction Internal Fixation Patella, Hardware Removal(Right) - Heriberto Ly DO Ordered Studies 05/31/21 FL knee RT 1 or 2V Routine 05/31/21 15:20 US - OR guided needle placemen Routine Hospital Course (1) Patella fracture: On May 31, 2021 Sonam arrived at [facility] and underwent a revision open reduction internal fixation of the right patella. During the procedure I found a possible infected seroma so cultures were sent. Postoperatively she was transferred to the general orthopedic floors. She was started on aspirin for DVT prophylaxis. She was started on vancomycin for antimicrobial prophylaxis. The hospitalist was consulted. Her hospital course was relatively uneventful. On postop day #1 she continue the vancomycin. She was having a little bit difficulty participating with physical therapy. She was able to stand but not able to ambulate. She received dialysis treatment. Recommendations were made for her to be discharged to rehab but she was fairly adamant that she wanted to go home. On postop day #2 she continued to do fairly well. She was participating a little bit better with physical therapy but still needs a lot of assistance to ambulate. She was in a knee immobilizer as instructed. She continue with the vancomycin and we await the culture results. On postop day #3 cultures came back showing Enterococcus. She received another dialysis treatment. She was still adamant that she wanted be discharged home. She was set up to receive IV vancomycin with her dialysis treatments. She was then discharged home. She will follow-up with orthopedics in 2 weeks. PG Care Time/CCT Total # of Minutes Spent Total Time Spent with Patient: Total time spent is greater than 50% in coordination of care (as documented) at patient's floor/unit and/or counseling patient: Discharge Plan Discharge Items Patient Disposition: Home - Home Health Services Reason For Visit: POST OP CARE Discharge Diagnosis: Right patella fracture Condition on Discharge: Good Activity: As commented below Non-emergency contact: Primary Care Provider and Surgeon Call non-emergency contact if: you have any medication questions, your symptoms worsen, your pain is not controlled, you have a fever, your temperature is above 101, your wound has increased redness and your wound has increased drainage Follow-up/Referrals: David Lopez III, CRNP [Primary Care Provider] - Diet: Carb Consistent or DM2 and Dialysis Renal Addtl Attending Provider Instructions: May be weightbearing as tolerated on the right leg while in the knee immobilize r. Knee immobilizer at all times. Daily dry dressing changes underneath the knee immobilizer. Aspirin 81 mg twice a day to prevent blood clots. Take IV antibiotics as instructed. Follow-up with Dr. Ly in 2 weeks for staple removal. Call to make an appointment. Phone number [phone]. Addtl Buggyman Provider Instructions: You will need to stay on the IV Vancomycin as your antibiotic for 6 weeks. You will receive this at dialysis. CM will fax over Rx for IV Vanco x 6 week course. Should have random Vanco level drawn prior to HD and dose with Vanco if level< 17. Her last dose of IV Vanco was on 06/01/21 and was 1250mg. Her last random Vanco level was on 06/02 and was 17.8. Pending Studies at Discharge: No Stand-Alone Forms: [email or web address], Smoking Cessation Medications and DC Order Prescriptions: New aspirin [Adult Aspirin Regimen] 81 mg tablet,delayed release (DR/EC) 81 mg PO BID Qty: 84 RF: 0 vancomycin 1.25 gram recon soln See Rx Instructions .ROUTE .COMPLEX 42 Days Qty: 6 RF: 0 Continued polyethylene glycol 3350 17 gram/dose powder 17 gm PO DAILY PRN (Reason: Constipation) RF: 0 PreserVision AREDS [id number] capsule 1 cap PO BID RF: 0 venlafaxine 150 mg capsule,extended release 24hr 150 mg PO QAM RF: 0 ascorbic acid (vitamin C) 500 mg tablet 500 mg PO QAM RF: 0 isosorbide mononitrate 120 mg tablet extended release 24 hr 120 mg PO QAM Qty: 90 RF: 3 amlodipine 5 mg tablet 5 mg PO BID Qty: 180 RF: 3 cholecalciferol (vitamin D3) 25 mcg (1,000 unit) capsule 50 mcg PO BID RF: 0 insulin aspart U-100 [Novolog Flexpen U-100 Insulin] 100 unit/mL (3 mL) insulin pen 35 unit subcut AC RF: 0 Lantus Solostar U-100 Insulin 100 unit/mL (3 mL) insulin pen 23 unit subcut QPM RF: 0 (DME) FreeStyle Flash 2 Sensor Kit See Rx Instructions .Route RF: 0 (DME) FreeStyle Flash 2 [place] Misc See Rx Instructions .Route RF: 0 atorvastatin 80 mg tablet 80 mg PO HS Qty: 90 RF: 3 Calcium 600 with Vitamin D3 600 mg(1,500mg) -400 unit Tablet,Chewable 2 tab PO QAM RF: 0 hydralazine 50 mg Tablet 50 mg PO TID Qty: 90 RF: 0 multivitamin Capsule 1 cap PO DAILY RF: 0 Discontinued cephalexin 500 mg capsule 500 mg PO QID Qty: 40 RF: 0 No Action tramadol 50 mg tablet 50 mg PO Q6H PRN (Reason: pain) Qty: 60 RF: 0 Discharge Orders: Discharge Order (Routine); Ordered 06/03/21 Ordered By: Akila Sharpe/Other Patient Handouts: Managing Type 2 Diabetes Admission Data Admit Date/Time: 05/31/21 17:29 Attending Provider: Heriberto Ly Admit Provider: Heriberto Ly Primary Care Provider: David Lopez III Other Providers: Atul Schneider ; Bean Archuleta ; Torri Yates ; Aamir Martell ; Nimesh Demarco ; Mark Eubanks ; Kunal Cedeño V. ; Aissatou Mcnair ; Miguel Angel Gaitan ; Davon Faith ; Yosi Randall ; Rick Tejeda ; Juno Deluca ; Isai Argueta ; Edel Ibrahim ; Akila Ascencio ; Marcia Sy ; Jefferson Martin ; Ivelisse Elias ; Sandy Roque ; Jennifer Fuller ; Adam Ramos ; Jose Vivas ; Arianna Lentz ; Arlette Burton ; Cristian Royal ; Aissatou Howard ; Ned Coyne ; Alejo Benavides ; Luis Heath ; Miguel Angel Kennedy ; Heriberto Boateng ; Johanny Haskins ; Janett Babb ; Jose Anaya ; Ivelisse Ford ; Bean Marcum ; Ben Puckett ; Drake Jiménez ; Rajan Worrell ; Gian Manzanares. Other Interventions: Discharge Summary Assessment (RN) Last Done: 06/03/21 14:58
== END 2021-06-03 15:34 | disposition home health service (06) ==
LOC: 3E 13:55 → ASU 13:55

== ENCOUNTER 2021-06-14 11:08 | Inpatient (IN) ==
[2021-06-14] MEDS ORDERED: AMPICILLIN/SULBACTAM SOD 3,000 MG in 0.9 % SODIUM CHLORIDE 100 ML IV STA (11:21)
--- NOTE | 2021-06-14 11:25 | Emergency Department Note ---
Impression & Plan Dehiscence of wound, Post-operative infection ED Provider Note NAME: AMARILYS MCFARLANE AGE: 80 SEX: F : 1940 ARRIVES VIA: Ambulance INFORMANT: Patient ED PROVIDER(S): Rick Garcia DO CHIEF COMPLAINT: r knee open HPI: Patient is a 80-year-old female with past medical history of depression, hypertension, diabetes, CAD, anemia and dyslipidemia presents the ER for right knee which is open. Patient notes that she fell and broke her knee around May 04. The screws came loose and she had surgery again around early May. She had ventura removed within 48 hours and noticed that the wound opened up this morning. She called her surgeon and was referred into the ER. She denies any pain. She notes when she flexes her knee it opens up more. She was wearing a brace. She denies any headache or change in vision. No chest pain or shortness of breath. No cough or runny nose. No other exacerbating remitting factors. ROS: See above HPI for pertinent positives & negatives. A total of 10 systems reviewed and were otherwise negative. PAST MEDICAL HISTORY:See Below PAST SURGICAL HISTORY:See Below FAMILY HISTORY:See Below SOCIAL HISTORY:See Below HOME MEDICATIONS:See Below ALLERGIES:See Below VITALS:See Below PHYSICAL EXAMINATION: GENERAL: Sitting up in bed, alert, well appearing, well nourished, no distress, non-toxic EYE EXAM: normal conjunctiva. PERRL and EOM's grossly intact. OROPHARYNX: no exudate, no erythema, lips, buccal mucosa, and tongue normal and mucous membranes are moist NECK: supple, no nuchal rigidity, no adenopathy, non-tender LUNGS: Clear to auscultation. Normal chest wall mechanics HEART: no murmurs, S1 normal and S2 normal ABDOMEN: abdomen soft, non-tender, normo-active bowel sounds, no masses, no rebound or guarding. UPPER EXTREMITIES: upper extremities are grossly normal. LOWER EXTREMITIES: Right knee with a midline incision which is open with exposed bone and hardware with sutures in place. There is no active drainage. NEURO EXAM: Normal sensorium, cranial nerves II-XII grossly intact, normal spee ch, no gross weakness of arms, no gross weakness of legs. MEDICAL DECISION MAKING: Patient is a 80-year-old female who presents the ER for dehiscence of her right knee. Patient had her second surgery in early May and ventura removed yesterday. Wound dehisced this morning they discussed with her surgeon and was referred in. IV was established blood work was obtained. Patient was given 3 g of Ancef with previous culture reviewed growing Enterococcus and susceptible. CBC with mild anemia at 9.7. BMP with a creatinine of 2.2 which x-ray improved from previous. Glucose slightly elevated. Covid negative. Patient declined pain medications. Discussed with Dr. Ly and she will be evaluated and likely go to the OR for washout. Triage Nursing notes reviewed. Limited review of prior medical records performed Vital Signs: reviewed and remarkable for HTN Differential diagnosis: Fracture, subluxation, dislocation, contusion, ligamentous injury, neurovascular, compartment syndrome, rhabdomyolysis, as well as other pathologies. ER treatment provided: See below Diagnostics interpreted by me: ECG: none Cardiac Monitoring: An order was placed for continuous cardiac monitoring. The monitor shows a rate of 70 with sinus rhythm. Laboratory studies: As stated above and show below. Imaging studies: See below Consultation(s): D/w Dr. Ly will likely take to the OR Procedures: none Critical Care: None Past Med/Surg History Medical History Anemia AV fistula LEFT CAD (coronary artery disease) Carotid artery disease less than 50% ICA stenosis per 08/2016 carotid duplex CHF (congestive heart failure) Chronic gastroesophageal reflux disease Chronic kidney disease on HD Depression Diabetic peripheral neuropathy associated with type 2 diabetes mellitus Dialysis patient 3XWK (M/W/F) [facility]>FOLLOWED BY DR. HATHAWAY Dyslipidemia Gallstones Generalized osteoarthritis of multiple sites Graves disease H/O malignant neoplasm of uterine body Hiatal hernia History of kidney stones Hypertension Irregular heart beat metoprolol for this per pt Macular degeneration Moderate calcific aortic stenosis Multinodular goiter (nontoxic) Multiple thyroid nodules Obesity Osteopenia Secondary hyperparathyroidism Sleep apnea No device Type 2 diabetes mellitus with insulin therapy Surgical History H/O abdominoplasty H/O basal cell carcinoma excision H/O shoulder surgery Right History of appendectomy History of cataract surgery R/L History of colonoscopy History of esophagogastroduodenoscopy (EGD) History of hip surgery Closed intertrochanteric fracture of left femur 04/10/2021: 02/16/2021: Grade 4 view, MAC#3, ETT#7.0. No issues per anesthesia postop progress note. History of open reduction and internal fixation (ORIF) procedure right patella 05/18/2021: LMA#4 atraumatic + PNB. No issues per anesthesia postop progress note. History of tonsillectomy History of tooth extraction S/P complete hysterectomy Status post knee surgery 05/31/21 Dr. Heriberto Ly- Incision and Debridement Right Knee, Right Open Reduction Internal Fixation Patella, Hardware Removal(Right) Family History Father Diabetes Lung cancer Family history of diabetes mellitus Mother , in a home fire Hypertension Family history of diabetes mellitus Daughter Family history of diabetes mellitus Son Family history of diabetes mellitus Other No family history of adverse response to anesthesia Denies family history of Ovarian cancer Prostate cancer Myocardial infarction Breast cancer Colorectal cancer Social History Smoking Status: Former smoker Tobacco Type: Cigarettes Smoking End Date: 2004; Second Hand Exposure: No; Hx Alcohol Use: Yes Alcohol type: wine Hx Substance Use: No Preferred Language: Congolese Communication Ability: Effective Visual Impairment: No Limitations Hearing Ability: Normal It Applications Manager Required: No Beliefs That Will Affect Care: None marital status: / Current Living Situation: Family Current Living Situation Comment: Son and Daughter in Law current occupational status: retired Feels Safe at Home: Yes Safety Concerns Comment: unsteady at times Childhood Exposure to Second-Hand Smoke: Yes Dental Care, Regularly: No Physical Activity Frequency: Does not Exercise Seatbelt Use: always Sunscreen Use: No Assistive Devices: Glasses and Walker Assistive Devices Comment: Assistive devices not here Allergies Allergies Allergy/AdvReac Type Severity Reaction Status Date / Time codeine AdvReac Mild DOES NOT Verified 06/14/21 12:01 [address] IT MAKES HER FEEL. Home Meds Home Medications Medication Instructions Recorded Confirmed ascorbic acid (vitamin C) 500 mg 500 mg PO QAM tab 12/10/18 06/14/21 tablet polyethylene glycol 3350 17 17 gm PO DAILY PRN gm 12/10/18 06/14/21 gram/dose oral powder venlafaxine 150 mg 150 mg PO QAM cap 12/10/18 06/14/21 capsule,extended release 24 hr calcium carbonate 600 mg-vitamin 2 tab PO QAM 03/09/20 06/14/21 D3 10 mcg (400 unit) chewable tablet (Calcium 600 with Vitamin D3) cholecalciferol (vitamin D3) 25 50 mcg PO BID cap 12/27/20 06/14/21 mcg (1,000 unit) capsule flash glucose scanning reader 05/10/21 05/29/21 (FreeStyle Flash 2 Jud) flash glucose sensor (FreeStyle 05/10/21 05/29/21 Flash 2 Sensor) insulin aspart U-100 100 unit/mL 35 unit SUBCUT AC ml 05/10/21 06/14/21 (3 mL) subcutaneous pen (Novolog Flexpen U-100 Insulin aspart) insulin glargine 100 unit/mL (3 27 unit SUBCUT QPM ml 05/10/21 06/14/21 mL) subcutaneous pen (Lantus Solostar U-100 Insulin) multivitamin 1 cap PO DAILY 05/18/21 06/14/21 vitamins A,C,X-[id number]-[id number] 14,320 1 cap PO BID 06/14/21 06/14/21 unit-226 mg-200 unit capsule (PreserVision AREDS) Previous Rx's Medication Instructions Recorded isosorbide mononitrate 120 mg 120 mg PO QAM #90 tab 10/25/20 tablet,extended release 24 hr amlodipine 5 mg tablet 5 mg PO BID #180 tab 11/23/20 hydralazine 50 mg tablet 50 mg PO TID #90 tab 02/28/21 atorvastatin 80 mg tablet 80 mg PO HS #90 tab 05/29/21 aspirin 81 mg tablet,delayed 81 mg PO BID #84 tab 06/03/21 release (Adult Aspirin Regimen) vancomycin 1.25 gram intravenous See Rx Instructions .ROUTE 06/03/21 solution .COMPLEX 42 Days #6 vial tramadol 50 mg tablet 50 mg PO Q6H PRN #60 tab 06/04/21 Results & Data (ED) Vital Signs Vital Signs - 24 hr 06/14/21 11:16 06/14/21 12:32 06/14/21 14:33 Temperature 37.0 C 36.8 C 36.3 C L Temperature Source Oral Oral Temporal Artery Scan Pulse Rate 72 Pulse Rate [Apical] 71 Pulse Rate [Left Finger] 79 Pulse Rhythm Regular Pulse Rhythm [Apical] Regular Pulse Rhythm [Left Finger] Regular Pulse Strength Normal Pulse Strength [Apical] Normal Pulse Strength [Left Finger] Normal Normal Respiratory Rate 18 20 12 Respiratory Effort / Characteristics Non-Labored Spontaneous Non-Labored Spontaneous Non-Labored Spontaneous Respiratory Depth Normal Normal Normal Respiratory Pattern Regular Regular Blood Pressure 210/78 H Blood Pressure [Right Arm] 218/69 H 185/62 H Blood Pressure Mean 122 Blood Pressure Mean [Right Arm] 118 103 Blood Pressure Position Lying Blood Pressure Position [Right Arm] Lying Lying Pulse Oximetry 96 97 95 Oxygen Delivery Method Room Air Room Air Oxymask Oxygen Flow Rate 6 Sepsis Recent Fever Within 48 Hours No Sepsis New/Unexplained Change in Mental Status No Sepsis Action Taken by Nursing No Action Required Laboratory Data Result diagrams: 06/14/21 11:25 06/14/21 11:25 Lab Results 06/14/21 06/14/21 06/14/21 Range/Units 11:25 11:25 11:25 WBC 8.07 (4.8-10.8) K/uL RBC 3.41 L (4.2-5.4) M/uL Hgb 9.7 L (12.0-16.0) g/dL Hct 32.9 L (37-47) % MCV 96.5 (80-100) fL MCH 28.4 (25-34) pg MCHC 29.5 L (32-36) g/dL RDW Std Deviation 66.2 H (36.4-46.3) fL RDW Coeff of Chris 18.6 H (11.5-14.5) % Plt Count 237 (130-400) K/uL MPV 9.2 (7.4-10.4) fL Immature Gran % (Auto) 0.6 % Neut % (Auto) 67.9 % Lymph % (Auto) 13.6 % [place] % (Auto) 8.8 % Eos % (Auto) 8.6 % Baso % (Auto) 0.5 % Neut # (Auto) 5.48 (1.4-6.5) K/uL Lymph # (Auto) 1.10 L (1.2-3.4) K/uL [place] # (Auto) 0.71 H (0.11-0.59) K/uL Eos # (Auto) 0.69 H (0-0.5) K/uL Baso # (Auto) 0.04 (0-0.2) K/uL Immature Gran # (Auto) 0.05 H (0.00-0.02) K/uL Sodium 139 (136-145) mmol/L Potassium 4.1 (3.5-5.1) mmol/L Chloride 99 (98-107) mmol/L Carbon Dioxide 32 (21-32) mmol/L Anion Gap 8 (3-11) BUN 34 H (6-23) mg/dl Creatinine 2.22 H (0.6-1.2) mg/dl Est Cr Clr Drug Dosing 22.2 ml/min Est GFR ( Amer) 23.8 ml/min Est GFR (Non-Af Amer) 20.6 ml/min BUN/Creatinine Ratio 15.3 (10-20) Glucose 150 H (70-99(Fasting)) mg/dl POC Glucose (70-99) mg/dl Calcium 9.3 (8.5-10.1) mg/dl SARS-CoV-2, RNA, NAAT NEGATIVE (NEGATIVE) 06/14/21 06/14/21 Range/Units 12:28 13:01 WBC (4.8-10.8) K/uL RBC (4.2-5.4) M/uL Hgb (12.0-16.0) g/dL Hct (37-47) % MCV (80-100) fL MCH (25-34) pg MCHC (32-36) g/dL RDW Std Deviation (36.4-46.3) fL RDW Coeff of Chris (11.5-14.5) % Plt Count (130-400) K/uL MPV (7.4-10.4) fL Immature Gran % (Auto) % Neut % (Auto) % Lymph % (Auto) % [place] % (Auto) % Eos % (Auto) % Baso % (Auto) % Neut # (Auto) (1.4-6.5) K/uL Lymph # (Auto) (1.2-3.4) K/uL [place] # (Auto) (0.11-0.59) K/uL Eos # (Auto) (0-0.5) K/uL Baso # (Auto) (0-0.2) K/uL Immature Gran # (Auto) (0.00-0.02) K/uL Sodium (136-145) mmol/L Potassium (3.5-5.1) mmol/L Chloride (98-107) mmol/L Carbon Dioxide (21-32) mmol/L Anion Gap (3-11) BUN (6-23) mg/dl Creatinine (0.6-1.2) mg/dl Est Cr Clr Drug Dosing ml/min Est GFR ( Amer) ml/min Est GFR (Non-Af Amer) ml/min BUN/Creatinine Ratio (10-20) Glucose (70-99(Fasting)) mg/dl POC Glucose 149 H 150 H (70-99) mg/dl Calcium (8.5-10.1) mg/dl SARS-CoV-2, RNA, NAAT (NEGATIVE) Administered Medications Sodium Chloride (Nss 1000ml) 1,000 mls @ 100 mls/hr IV .Q10H [facility] Stop: 06/15/21 06:00 Last Admin: 06/14/21 16:03 Dose: 100 mls/hr Documented by: [id number] Labetalol HCl (Labetalol Hcl Iv 5 Mg/Ml 20ml) 5 mg IV Q5M PRN PRN Reason: PACU Use-SBP>160 or DBP>100 Stop: 06/14/21 21:25 Last Admin: 06/14/21 15:24 Dose: 5 mg Documented by: [id number] Cosigned by: [id number] Admin: 06/14/21 14:59 Dose: 5 mg Documented by: [id number] Cosigned by: [id number] Discontinued Medications Bupivacaine HCl/Epinephrine Bitart (Bupivacaine/Epinephrine 0.25% 1:200,000 30 Ml Vial) Confirm Administered Dose 30 ml .ROUTE .STK-MED ONE Stop: 06/14/21 13:44 Last Admin: 06/14/21 14:22 Dose: 25 ml Documented by: [id number] Cefazolin Sodium (Cefazolin 330 Mg/Ml 1 Gm Vial) Confirm Administered Dose 990 mg .ROUTE .STK-MED ONE Stop: 06/14/21 13:15 Last Admin: 06/14/21 14:18 Dose: 1,000 mg Documented by: [id number] Ampicillin Sodium/Sulbactam Sodium 3,000 mg/ Sodium Chloride 108 mls @ 200 mls/hr IV NOW STA; Protocol Stop: 06/14/21 11:53 Last Infusion: 06/14/21 12:54 Dose: 0 mls/hr Documented by: [id number] Admin: 06/14/21 11:55 Dose: 200 mls/hr Documented by: [id number] Discharge Plan Visit Data Chief Complaint: Wound Stated Complaint: R KNEE INCISION OPEN ED Provider: Rick Garcia Discharge Problem: Dehiscence of wound, Post-operative infection Patient Disposition: Admitted As Inpatient Discharge Instructions Interventions: ED Discharge Assessment Last Done: 06/14/21 12:48 Discharge Problem: Post-operative infection Qualifiers: Encounter type: initial encounter Postoperative infection type: unspecified type Qualified Code(s): T81.40XA - Infection following a procedure, unspecified, initial encounter
[2021-06-14 11:37] LABS: Basophils # (auto) 0.04 K/uL (0-0.2); Basophils % (auto) 0.5 %; Eosinophils # (auto) 0.69 K/uL (0-0.5); Eosinophils % (auto) 8.6 %; Hematocrit (blood only) 32.9 % (37-47); Hemoglobin 9.7 g/dL (12.0-16.0); Immature Granulocytes # (auto) 0.05 K/uL (0.00-0.02); Immature Granulocytes % (auto) 0.6 %; Lymphocytes % (auto) 13.6 %; Mean Corpuscular Hemoglobin 28.4 pg (25-34); Mean Corpuscular Hgb Conc 29.5 g/dL (32-36); Mean Corpuscular Volume 96.5 fL (80-100); Mean Platelet Volume 9.2 fL (7.4-10.4); Monocytes # (auto) 0.71 K/uL (0.11-0.59); Monocytes % (auto) 8.8 %; Neutrophils # (auto) 5.48 K/uL (1.4-6.5); Neutrophils % (auto) 67.9 %; Platelet Count 237 K/uL (130-400); RDW Coefficient of Variation 18.6 % (11.5-14.5); RDW Standard Deviation 66.2 fL (36.4-46.3); Red Blood Count 3.41 M/uL (4.2-5.4); White Blood Count 8.07 K/uL (4.8-10.8)
[2021-06-14 12:02] LABS: BUN Creatinine Ratio 15.3 (10-20); Calcium 9.3 mg/dl (8.5-10.1); Creatinine Clr Calc Pharmacy 22.2 ml/min; Est GFR (African American) 23.8 ml/min; Est GFR (Non-African American) 20.6 ml/min; Potassium 4.1 mmol/L (3.5-5.1)
[2021-06-14] MEDS ORDERED: fentaNYL citrate 100 MCG/2 ML VIAL ONE ×2 (12:59→13:35)
--- NOTE | 2021-06-14 12:59 | Anesthesiology Consultation ---
Date of Service June 14, 2021 Assessment & Plan (1) Encounter for pre-operative examination: Chart Review Chart Review: Acceptable Risk for Surgery and Patient NOT seen in Pre Admission Testing Consults Requested none History Surgery Operation Date: 06/14/21 12:15 Proposed Procedures p Right Knee Incision and Drainage, Wound Closure and Wound Vac Application - Heriberto Ly, Height/Weight Height: 5 ft 6 in Weight: 79.3 kg Allergies Allergy/AdvReac Type Severity Reaction Status Date / Time codeine AdvReac Mild DOES NOT Verified 06/14/21 12:01 LIKE THE WAY IT MAKES HER FEEL. Medications Home Medications Medication Instructions Recorded Confirmed Last Taken ascorbic acid (vitamin C) 500 mg 500 mg PO QAM tab 12/10/18 06/14/21 05/30/21 tablet polyethylene glycol 3350 17 17 gm PO DAILY PRN gm 12/10/18 06/14/21 11/07/20 09:00 gram/dose oral powder venlafaxine 150 mg 150 mg PO QAM cap 12/10/18 06/14/21 05/31/21 08:00 capsule,extended release 24 hr calcium carbonate 600 mg-vitamin 2 tab PO QAM 03/09/20 06/14/21 05/17/21 10:00 D3 10 mcg (400 unit) chewable tablet (Calcium 600 with Vitamin D3) isosorbide mononitrate 120 mg 120 mg PO QAM #90 tab 10/25/20 06/14/21 05/31/21 08:00 tablet,extended release 24 hr amlodipine 5 mg tablet 5 mg PO BID #180 tab 11/23/20 06/14/21 05/31/21 08:00 cholecalciferol (vitamin D3) 25 50 mcg PO BID cap 12/27/20 06/14/21 05/30/21 mcg (1,000 unit) capsule hydralazine 50 mg tablet 50 mg PO TID #90 tab 02/28/21 06/14/21 05/31/21 08:00 flash glucose scanning reader 05/10/21 05/29/21 Unknown (FreeStyle Flash 2 Constable) flash glucose sensor (FreeStyle 05/10/21 05/29/21 Unknown Flash 2 Sensor) insulin aspart U-100 100 unit/mL 35 unit SUBCUT AC ml 05/10/21 06/14/21 05/17/21 17:00 (3 mL) subcutaneous pen (Novolog 10 units Flexpen U-100 Insulin aspart) insulin glargine 100 unit/mL (3 27 unit SUBCUT QPM ml 05/10/21 06/14/21 05/30/21 18:00 mL) subcutaneous pen (Lantus Solostar U-100 Insulin) multivitamin 1 cap PO DAILY 05/18/21 06/14/21 05/17/21 10:00 atorvastatin 80 mg tablet 80 mg PO HS #90 tab 05/29/21 06/14/21 Unknown aspirin 81 mg tablet,delayed 81 mg PO BID #84 tab 06/03/21 Unknown release (Adult Aspirin Regimen) vancomycin 1.25 gram intravenous See Rx Instructions .ROUTE 06/03/21 06/14/21 Unknown solution .COMPLEX 42 Days #6 vial tramadol 50 mg tablet 50 mg PO Q6H PRN #60 tab 06/04/21 06/14/21 Unknown vitamins A,C,T-mcja-gldpxw 14,320 1 cap PO BID 06/14/21 06/14/21 Unknown unit-226 mg-200 unit capsule (PreserVision AREDS) NPO Date Last Intake of Fluids: 06/13/21 Time Last Intake of Fluids: 22:00 Date Last Intake of Solids: 06/13/21 Time Last Intake of Solids: 19:00 Past Medical History Medical History Anemia AV fistula LEFT CAD (coronary artery disease) Carotid artery disease less than 50% ICA stenosis per 08/2016 carotid duplex CHF (congestive heart failure) Chronic gastroesophageal reflux disease Chronic kidney disease on HD Depression Diabetic peripheral neuropathy associated with type 2 diabetes mellitus Dialysis patient 3XWK (M/W/F) [facility]>FOLLOWED BY DR. HATHAWAY Dyslipidemia Gallstones Generalized osteoarthritis of multiple sites Graves disease H/O malignant neoplasm of uterine body Hiatal hernia History of kidney stones Hypertension Irregular heart beat metoprolol for this per pt Macular degeneration Moderate calcific aortic stenosis Multinodular goiter (nontoxic) Multiple thyroid nodules Obesity Osteopenia Secondary hyperparathyroidism Sleep apnea No device Type 2 diabetes mellitus with insulin therapy Past Family History Family History Father Diabetes Lung cancer Family history of diabetes mellitus Mother , in a home fire Hypertension Family history of diabetes mellitus Daughter Family history of diabetes mellitus Son Family history of diabetes mellitus Other No family history of adverse response to anesthesia Denies family history of Ovarian cancer Prostate cancer Myocardial infarction Breast cancer Colorectal cancer Past Surgical History Surgical History H/O abdominoplasty H/O basal cell carcinoma excision H/O shoulder surgery Right History of appendectomy History of cataract surgery R/L History of colonoscopy History of esophagogastroduodenoscopy (EGD) History of hip surgery Closed intertrochanteric fracture of left femur 04/10/2021: 02/16/2021: Grade 4 view, MAC#3, ETT#7.0. No issues per anesthesia postop progress note. History of open reduction and internal fixation (ORIF) procedure right patella 05/18/2021: LMA#4 atraumatic + PNB. No issues per anesthesia postop progress note. History of tonsillectomy History of tooth extraction S/P complete hysterectomy Status post knee surgery 05/31/21 Dr. Heriberto Ly- Incision and Debridement Right Knee, Right Open Reduction Internal Fixation Patella, Hardware Removal(Right) Social History Smoking Status: Former smoker tobacco type: cigarettes Hx Alcohol Use: No Alcohol type: wine alcohol intake frequency: holidays/special occasions only Hx Substance Use: No substance use type: does not use Physical Exam Vital Signs Last Vital Signs Temp 36.8 C 06/14/21 12:32 Pulse 79 06/14/21 12:32 Resp 20 06/14/21 12:32 BP 218/69 H 06/14/21 12:32 Pulse Ox 97 06/14/21 12:32 Testing Laboratory Results 06/14/21 11:25 06/14/21 11:25 06/14/21 12:28 POC Glucose 149 H Other Testing Testing Electrocardiogram Date: 02/15/21 Poor data quality, interpretation may be adversely affected Normal sinus rhythm Normal ECG When compared with ECG of 03-JAN-2021 05:50, Nonspecific T wave abnormality now evident in Lateral leads Echocardiogram Date: 10/23/20 Mild left ventricular systolic dysfunction Mild cLVH Mild left atrial dilatation Normal right ventricular systolic function Moderate aortic stenosis. Mean gradient 20.8 mmHg. Aortic valve area 1 cm2 Trace to mild aortic regurgitation Moderate mitral regurgitation EF 45-50% Grade 1 diastolic dysfunction Mild global hypokinesis of the left ventricle Other Testing Thyroid ultrasound 05/22/2021 IMPRESSION: No significant change in multiple thyroid nodules since ultrasound of January 17, 2016, including a densely calcified right mid pole nodule. Carotid doppler 09/03/2016 < 50% stenosis in internal carotid arteries bilat
[2021-06-14] MEDS ORDERED: ceFAZolin 330 MG/ML 1 GM VIAL ONE (13:14)
[2021-06-14] MEDS ORDERED: HYDROmorphone INJ 1 MG/ML SYRINGE IV PRN (13:25)
[2021-06-14] MEDS ORDERED: ONDANSETRON INJ 2 MG/ML 2 ML VIAL IV PRN ×2 (13:25→15:51)
[2021-06-14] MEDS ORDERED: ATROPINE SULFATE 0.1 MG/ML 10ML SYR IV PRN (13:25)
[2021-06-14] MEDS ORDERED: fentaNYL citrate 100 MCG/2 ML VIAL IV PRN (13:25)
[2021-06-14] MEDS ORDERED: ePHEDrine sulfate 50 MG/ML AMP IV PRN (13:25)
--- NOTE | 2021-06-14 13:28 | History & Physical Bridge Note ---
Date of Service June 14, 2021 History & Physical Bridge Note I have examined the patient, reviewed the History & Physical and in the interval since the performance of the History & Physical I have noted the following changes of clinical significance: no changes noted
--- NOTE | 2021-06-14 13:31 | History & Physical Report ---
Date of Service June 14, 2021 Assessment & Plan (1) Wound dehiscence: We talked about the situation, as well as the diagnosis and treatment options at bedside with her and her daughter. I recommended taking her to the operating room urgently and doing an irrigation debridement with wound closure and possible application of a wound VAC. Her and her daughter understand the risk, benefits, and alternatives procedure elected proceed. Time was spent scribed to the procedure and postop expectations. The decision was made for surgery. We will take her back to the operating room and likely admit her postoperatively for medical management and possible placement. History of Present Illness Chief Complaint: Right knee wound dehiscence . Primary Care Provider: David Lopez III, ELLIOTT Sonam is a pleasant 80-year-old female who initially underwent an ORIF of her right patella 4 weeks ago. Unfortunately she failed the fixation and underwent a revision ORIF 2 weeks ago. She also had an irrigation debridement at that time. She has been on IV vancomycin and continued dialysis treatments. I saw her in the office 2 days ago and removed her sutures at the 2-week mae. The wound actually looked good. She was placed back in the knee immobilizer. The home health nurse came to her house today and when she removed the knee i mmobilizer she found that the wound had completely dehisced. She came immediately to the emergency room and is being taken directly to the operating room for irrigation debridement and closure of the right knee wound dehiscence. . Allergies Allergy/AdvReac Type Severity Reaction Status Date / Time codeine AdvReac Mild DOES NOT Verified 06/14/21 12:[address] IT MAKES HER FEEL. Home Medications Medication Instructions Recorded Confirmed Type ascorbic acid (vitamin C) 500 mg 500 mg PO QAM tab 12/10/18 06/14/21 History tablet polyethylene glycol 3350 17 17 gm PO DAILY PRN gm 12/10/18 06/14/21 History gram/dose oral powder venlafaxine 150 mg 150 mg PO QAM cap 12/10/18 06/14/21 History capsule,extended release 24 hr calcium carbonate 600 mg-vitamin 2 tab PO QAM 03/09/20 06/14/21 History D3 10 mcg (400 unit) chewable tablet (Calcium 600 with Vitamin D3) isosorbide mononitrate 120 mg 120 mg PO QAM #90 tab 10/25/20 06/14/21 Rx tablet,extended release 24 hr amlodipine 5 mg tablet 5 mg PO BID #180 tab 11/23/20 06/14/21 Rx cholecalciferol (vitamin D3) 25 50 mcg PO BID cap 12/27/20 06/14/21 History mcg (1,000 unit) capsule hydralazine 50 mg tablet 50 mg PO TID #90 tab 02/28/21 06/14/21 Rx flash glucose scanning reader 05/10/21 05/29/21 History (FreeStyle Flash 2 [place]) flash glucose sensor (FreeStyle 05/10/21 05/29/21 History Flash 2 Sensor) insulin aspart U-100 100 unit/mL 35 unit SUBCUT AC ml 05/10/21 06/14/21 History (3 mL) subcutaneous pen (Novolog Flexpen U-100 Insulin aspart) insulin glargine 100 unit/mL (3 27 unit SUBCUT QPM ml 05/10/21 06/14/21 History mL) subcutaneous pen (Lantus Solostar U-100 Insulin) multivitamin 1 cap PO DAILY 05/18/21 06/14/21 History atorvastatin 80 mg tablet 80 mg PO HS #90 tab 05/29/21 06/14/21 Rx aspirin 81 mg tablet,delayed 81 mg PO BID #84 tab 06/03/21 Rx release (Adult Aspirin Regimen) vancomycin 1.25 gram intravenous See Rx Instructions .ROUTE 06/03/21 06/14/21 Rx solution .COMPLEX 42 Days #6 vial tramadol 50 mg tablet 50 mg PO Q6H PRN #60 tab 06/04/21 06/14/21 Rx vitamins A,C,M-dkwt-pemyol 14,320 1 cap PO BID 06/14/21 06/14/21 History unit-226 mg-200 unit capsule (PreserVision AREDS) Past Med/Surg History Medical History Anemia AV fistula LEFT CAD (coronary artery disease) Carotid artery disease less than 50% ICA stenosis per 08/2016 carotid duplex CHF (congestive heart failure) Chronic gastroesophageal reflux disease Chronic kidney disease on HD Depression Diabetic peripheral neuropathy associated with type 2 diabetes mellitus Dialysis patient 3XWK (M/W/F) [facility]>FOLLOWED BY DR. DONELAN Dyslipidemia Gallstones Generalized osteoarthritis of multiple sites Graves disease H/O malignant neoplasm of uterine body Hiatal hernia History of kidney stones Hypertension Irregular heart beat metoprolol for this per pt Macular degeneration Moderate calcific aortic stenosis Multinodular goiter (nontoxic) Multiple thyroid nodules Obesity Osteopenia Secondary hyperparathyroidism Sleep apnea No device Type 2 diabetes mellitus with insulin therapy Surgical History H/O abdominoplasty H/O basal cell carcinoma excision H/O shoulder surgery Right History of appendectomy History of cataract surgery R/L History of colonoscopy History of esophagogastroduodenoscopy (EGD) History of hip surgery Closed intertrochanteric fracture of left femur 04/10/2021: 02/16/2021: Grade 4 view, MAC#3, ETT#7.0. No issues per anesthesia postop progress note. History of open reduction and internal fixation (ORIF) procedure right patella 05/18/2021: LMA#4 atraumatic + PNB. No issues per anesthesia postop progress note. History of tonsillectomy History of tooth extraction S/P complete hysterectomy Status post knee surgery 05/31/21 Dr. Heriberto Ly- Incision and Debridement Right Knee, Right Open Reduction Internal Fixation Patella, Hardware Removal(Right) Family History Father Diabetes Lung cancer Family history of diabetes mellitus Mother , in a home fire Hypertension Family history of diabetes mellitus Daughter Family history of diabetes mellitus Son Family history of diabetes mellitus Other No family history of adverse response to anesthesia Denies family history of Ovarian cancer Prostate cancer Myocardial infarction Breast cancer Colorectal cancer Social History Smoking Status: Former smoker Tobacco Type: Cigarettes Second Hand Exposure: No; Hx Alcohol Use: No Hx Substance Use: No Preferred Language: Togolese Communication Ability: Effective Visual Impairment: No Limitations Hearing Ability: Normal Machine Packer Required: No Beliefs That Will Affect Care: None marital status: / Current Living Situation: Family Current Living Situation Comment: lives with son and daughter in law current occupational status: retired Feels Safe at Home: Yes Safety Concerns Comment: unsteady at times Childhood Exposure to Second-Hand Smoke: Yes Dental Care, Regularly: No Physical Activity Frequency: Does not Exercise Seatbelt Use: always Sunscreen Use: No Assistive Devices: Walker Review of Systems All systems reviewed & are unremarkable except as noted in HPI & below. Physical Exam On physical examination, the entire incision has opened back up. The hardware is exposed. There is little bit of serous drainage but no signs of gross infection. . Constitutional WD/WN, vitals as above Eyes PERRL, conjunctivae normal, anicteric sclerae ENMT external ear and nose normal, oropharynx normal Neck trachea midline, no thyromegaly Respiratory normal respiratory effort Cardiovascular RRR, no murmur, no edema Gastrointestinal (Abdomen) normal bowel sounds, soft, nontender, no hepatosplenomegaly Psychiatric A+Ox3, euthymic affect Results & Data Results & Data Laboratory Results . Diagnostic Findings . PG Care Time/CCT Total # of Minutes Spent Total Time Spent with Patient: Total time spent is greater than 50% in coordination of care (as documented) at patient's floor/unit and/or counseling patient: Coding Level of Care Code None Diagnoses Wound dehiscence T81.30XA
[2021-06-14] MEDS ORDERED: BUPIVACAINE/EPINEPHRINE 0.25% 1:200,000 30 ML VIAL ONE (13:43)
[2021-06-14] MEDS ORDERED: PROPOFOL IV EMULSION 10 MG/ML 20 ML VIAL IV ONE (13:47)
[2021-06-14] MEDS ORDERED: ONDANSETRON INJ 2 MG/ML 2 ML VIAL ONE (13:47)
[2021-06-14] MEDS ORDERED: LIDOCAINE 2% 2 ML VIAL/AMP(20MG/ML) INFIL ONE (13:47)
[2021-06-14] MEDS ORDERED: ePHEDrine sulfate 50 MG/ML SYR ONE (13:53)
[2021-06-14] MEDS ORDERED: PHENYLEPHRINE HCL 10 MG/ML VIAL ONE (13:58)
--- NOTE | 2021-06-14 14:43 | Anesthesiology Progress Note ---
Date of Service June 14, 2021 Anesthesia Post Procedure Vital Signs Vital Signs: Temp Pulse Pulse Resp BP BP Pulse Ox 06/14/21 12:32 36.8 C 79 20 218/69 H 97 06/14/21 11:16 37.0 C 72 18 210/78 H 96 Transfer of Care Handoff Completed per policy Notes Mental Status: alert / awake / arousable and participated in evaluation Patient Amnestic to Procedure: Yes Nausea / Vomiting: adequately controlled Pain: adequately controlled Airway Patency, RR, SpO2: stable & adequate BP & HR: see Notes below (treating with labetalol) Hydration State: stable & adequate Anesthetic Complications: no major complications apparent and Pt Satisfied with anesthetic care
--- NOTE | 2021-06-14 14:58 | Operative Report ---
PG Post Operative Report Pre & Post Diagnosis Operation Date: 06/14/21 12:15 Pre-Op Diagnosis: Right knee wound dehiscence Post-Op Diagnosis: Right knee wound dehiscence with rupture of the patella tendon I identified the patient and participated in the time-out.: Yes Procedure Operation Date: 06/14/21 12:15 Actual Procedures p Right Knee Incision and Drainage with patella tendon repair and wound closure (Right) - Heriberto Ly DO Surgeon Heriberto Ly DO Test Operator Heriberto Rasheed PAC Estimated Blood Loss 20 Findings Consistent with Post-Op Diagnosis Specimens None Complications none Disposition Disposition: Recovery Room Indications Sonam is a 80-year-old female who fractured her right patella about 4 weeks ago. She initially underwent ORIF. At 2 weeks she presented with her knee flexed and she had failed the repair. She then underwent a revision ORIF with plate and screw fixation. When she came to our office the 2 weeks she still had her knee flexed. The wound was healed so I just remove the ventura. Advised her to keep her knee extended. Unfortunately the wound then dehisced and the patella plate was exposed. She came to the emergency room and I decided to take her immediately to the operating room for irrigation and debridement with wound closure. Description of Procedure On June 14, 2021 Sonam was seen in the preoperative holding area. The operative extremity identified and signed. She was taken back to the operating room and laid on the table in supine position. She was put under general anesthesia. The right knee was prepped and draped in sterile fashion. A timeout was done. The patient and the operative extremity was properly identified. The previous incision had almost completely opened up. The patella plate was exposed. Unfortunately she had also torn the patella tendon off the inferior pole of the patella. The knee was then irrigated with 3 L of normal saline solution with pulse lavage. There was Ancef in the irrigation solution. The surrounding soft tissues were then debrided with a sharp knife to ensure that there was no gross infection within the knee. An attempt was made to repair the patella tendon. Several #1 Prolene sutures were used to try to reapproximate the medial lateral retinaculum and the patella tendon to the inferior pole of the patella. I was able to use some the screw holes through the plate to hold sutures to reapproximate the patella tendon. The wound was once again irrigated with 3 L normal saline solution with pulse lavage. The skin was then closed with 2-0 nylon suture in a trauma stitch vertical mattress fashion. I was able to get a complete closure. She was then placed in a bulky soft dressing and a posterior splint. She was then extubated and transferred to a [facility]. She was taken to the post anesthesia care unit in stable condition. She tolerated the procedure well. Heriberto Rasheed PA-C, was present for the entire procedure. He was critical for patient positioning, prepping, draping, retraction exposure, wound closure and application of sterile dressing. I attest to the content of the Intraoperative Record and any orders documented therein. Any exceptions are noted below.
[2021-06-14] MEDS: LABETALOL HCL IV 5 MG/ML 20ML IV PRN ×2 (14:59→15:24)
[2021-06-14] MEDS ORDERED: PHARMACY GLYCEMIC MGMT CONSULT PRN (15:51)
[2021-06-14] MEDS ORDERED: METOCLOPRAMIDE HCL INJ 5 MG/ML 2 ML VIAL IV PRN (15:51)
[2021-06-14] MEDS ORDERED: NALOXONE HCL 0.4 MG/1 ML VIAL/CARP IV PRN (15:51)
[2021-06-14] MEDS ORDERED: MAGNESIUM HYDROXIDE SUSP 30 ML UDC PO PRN (15:51)
[2021-06-14] MEDS ORDERED: HYDROmorphone INJ 0.5 MG/0.5 ML SYR IV PRN (15:51)
[2021-06-14] MEDS ORDERED: bisacodyL 10 MG SUPP PR PRN (15:51)
[2021-06-14] MEDS: SODIUM CHLORIDE 0.9% 1000ML 1,000 ML IV SCH (16:03)
[2021-06-14] MEDS ORDERED: VANCOMYCIN CONSULT ACTIVE PRN (16:36)
[2021-06-14] MEDS: INSULIN ASPART PER UNIT SC SCH ×2 (17:41→21:48)
--- NOTE | 2021-06-14 18:08 | Hospitalist Consultation ---
Date of Consultation June 14, 2021 Assessment & Plan (1) Dehiscence of wound: - H/O R patella fracture with ORIF approx. 1 month ago then with revision 2 weeks ago. Now with wound dehiscence - S/P irrigation/debridement with closure on 06/14 - noted per operative report to have rupture of patella tendon - Management per primary service (2) End-stage renal disease on hemodialysis: - Follows a MWF schedule; Labs are very good with no electrolyte a bnormalities - no urgent dialysis needs - Consult nephrology - depending on length of hospital stay may need dialysis treatment in-house (3) CAD (coronary artery disease): - STABLE; no reports of CP - Continue ASA; Atorvastatin 80 mg HS (4) Hypertension, uncontrolled: - Did not take her medications today - Continue Amlodipine 5 mg BID and Hydralazine 50 mg TID (5) Heart failure with mid-range ejection fraction: - EF 45%; no signs of decompensation - Medical management as above (6) Type 2 diabetes mellitus with insulin therapy: - A1c 6.2; Controlled - Glycemic pharmacy on consult - appreciate input (7) Depression: - STABLE - Continue Venlafaxine 150 mg daily Patient is stable from her chronic medical conditions. Assess AM labs. Hospi talists will continue to follow Supervising Physician Co-Signing Physician Notes Attending note: patient seen and examined with Marcia SHARPE. I agree with her assessment and plan, review of systems, examination, history. I reviewed chart and labs. patient doing well after surgery, no specific complaints - Wound dehiscence: management per orthopedics - ESRD: nephrology consulted for HD will check labs in AM, if vitals stable and doing well we can likely sign off History of Present Illness Reason for Consultation: Post-Op Management Requesting Physician: Dr. Ly Attending Physician: Heriberto Ly, History of Present Illness Ms. Bolivar is a 80 y/o female with PMHx of T2DM, ESRD on HD (MWF), CAD, Systolic CHF with EF 45%, HTN, Graves Disease, and Depression who presents to the ED due to wound dehiscence. Patient is S/P R knee irrigation and debridement with wound closure and noted to have a ruptured patella tendon. Hospitalists consulted for medical management. Patient initially had ORIF of the R patella approx 4 weeks ago. She had a failed fixation and underwent revision with irrigation/debridement about 2 weeks ago. She had her follow-up and sutures removed on 06/12 but unfortunately today was found to have wound dehiscence and underwent surgery today. She is doing well post-operatively. Denies any pain. Hasn't eaten anything yet. She last moved her bowels yesterday and has issues with constipation. Allergies Allergy/AdvReac Type Severity Reaction Status Date / Time codeine AdvReac Mild DOES NOT Verified 06/14/21 12:01 LIKE THE WAY IT MAKES HER FEEL. Home Medications Medication Instructions Recorded Confirmed Type ascorbic acid (vitamin C) 500 mg 500 mg PO QAM tab 12/10/18 06/14/21 History tablet polyethylene glycol 3350 17 17 gm PO DAILY PRN gm 12/10/18 06/14/21 History gram/dose oral powder venlafaxine 150 mg 150 mg PO QAM cap 12/10/18 06/14/21 History capsule,extended release 24 hr calcium carbonate 600 mg-vitamin 2 tab PO QAM 03/09/20 06/14/21 History D3 10 mcg (400 unit) chewable tablet (Calcium 600 with Vitamin D3) isosorbide mononitrate 120 mg 120 mg PO QAM #90 tab 10/25/20 06/14/21 Rx tablet,extended release 24 hr amlodipine 5 mg tablet 5 mg PO BID #180 tab 11/23/20 06/14/21 Rx cholecalciferol (vitamin D3) 25 50 mcg PO BID cap 12/27/20 06/14/21 History mcg (1,000 unit) capsule hydralazine 50 mg tablet 50 mg PO TID #90 tab 02/28/21 06/14/21 Rx flash glucose scanning reader 05/10/21 05/29/21 History (FreeStyle Flash 2 [place]) flash glucose sensor (FreeStyle 05/10/21 05/29/21 History Flash 2 Sensor) insulin aspart U-100 100 unit/mL 7 unit SUBCUT TIDM ml 05/10/21 06/15/21 History (3 mL) subcutaneous pen (Novolog Flexpen U-100 Insulin aspart) insulin glargine 100 unit/mL (3 23 unit SUBCUT QPM ml 05/10/21 06/15/21 History mL) subcutaneous pen (Lantus Solostar U-100 Insulin) multivitamin 1 cap PO DAILY 05/18/21 06/14/21 History atorvastatin 80 mg tablet 80 mg PO HS #90 tab 05/29/21 06/14/21 Rx aspirin 81 mg tablet,delayed 81 mg PO BID #84 tab 06/03/21 Rx release (Adult Aspirin Regimen) vancomycin 1.25 gram intravenous See Rx Instructions .ROUTE 06/03/21 06/14/21 Rx solution .COMPLEX 42 Days #6 vial tramadol 50 mg tablet 50 mg PO Q6H PRN #60 tab 06/04/21 06/14/21 Rx vitamins A,C,G-cdei-iqsrcn 14,320 1 cap PO BID 06/14/21 06/14/21 History unit-226 mg-200 unit capsule (PreserVision AREDS) Patient History Medical History Anemia AV fistula LEFT CAD (coronary artery disease) Carotid artery disease less than 50% ICA stenosis per 08/2016 carotid duplex CHF (congestive heart failure) Chronic gastroesophageal reflux disease Chronic kidney disease on HD Depression Diabetic peripheral neuropathy associated with type 2 diabetes mellitus Dialysis patient 3XWK (M/W/F) [facility]>FOLLOWED BY DR. HATHAWAY Dyslipidemia Gallstones Generalized osteoarthritis of multiple sites Graves disease H/O malignant neoplasm of uterine body Hiatal hernia History of kidney stones Hypertension Irregular heart beat metoprolol for this per pt Macular degeneration Moderate calcific aortic stenosis Multinodular goiter (nontoxic) Multiple thyroid nodules Obesity Osteopenia Secondary hyperparathyroidism Sleep apnea No device Type 2 diabetes mellitus with insulin therapy Surgical History H/O abdominoplasty H/O basal cell carcinoma excision H/O shoulder surgery Right History of appendectomy History of cataract surgery R/L History of colonoscopy History of esophagogastroduodenoscopy (EGD) History of hip surgery Closed intertrochanteric fracture of left femur 04/10/2021: 02/16/2021: Grade 4 view, MAC#3, ETT#7.0. No issues per anesthesia postop progress note. History of open reduction and internal fixation (ORIF) procedure right patella 05/18/2021: LMA#4 atraumatic + PNB. No issues per anesthesia postop progress note. History of tonsillectomy History of tooth extraction S/P complete hysterectomy Status post knee surgery 05/31/21 Dr. Heriberto Ly- Incision and Debridement Right Knee, Right Open Reduction Internal Fixation Patella, Hardware Removal(Right) Family History Father Diabetes Lung cancer Family history of diabetes mellitus Mother , in a home fire Hypertension Family history of diabetes mellitus Daughter Family history of diabetes mellitus Son Family history of diabetes mellitus Other No family history of adverse response to anesthesia Denies family history of Ovarian cancer Prostate cancer Myocardial infarction Breast cancer Colorectal cancer Social History Smoking Status: Former smoker Tobacco Type: Cigarettes Second Hand Exposure: No; Hx Alcohol Use: Yes Alcohol type: wine Hx Substance Use: No Preferred Language: German Communication Ability: Effective Visual Impairment: No Limitations Hearing Ability: Normal Student Assistant Required: No Beliefs That Will Affect Care: None marital status: / Current Living Situation: Family Current Living Situation Comment: Son and Daughter in Law current occupational status: retired Feels Safe at Home: Yes Safety Concerns Comment: unsteady at times Childhood Exposure to Second-Hand Smoke: Yes Dental Care, Regularly: No Physical Activity Frequency: Does not Exercise Seatbelt Use: always Sunscreen Use: No Assistive Devices: Walker Review of Systems Review of Systems: All systems reviewed & are unremarkable except as noted in HPI & below Physical Exam Physical Exam: PHYSICAL EXAM General Appearance: WDWN in NAD who is A&O x 3 HEENT: Head is normocephalic/atraumatic; Hearing grossly intact; Mucous membranes moist Neck: Supple; Trachea midline; Neg JVD Heart: RRR with no M/G/R Lungs: CTA in all lung knowles bilaterally; Respirations unlabored; Neg accessory muscle use Abdomen: Soft, non-tender, non-distended; Positive BS x 4 quadrants Extremities: Neg cyanosis or edema; RLE with surgical dressing in place C/D/I Neurological: Speech clear; Gross motor/sensory function intact; Neg focal neurologic deficits Psychiatric: Appropriate mood/affect Skin: Normal Color; Warm/Dry Results & Data Results & Data ([facility]) Vital Signs (Past 12 Hours) Vital Signs Temp Pulse Pulse Pulse Pulse Resp BP 06/14/21 17:39 69 18 06/14/21 16:39 36.7 C 65 16 06/14/21 16:21 62 18 06/14/21 15:50 37.1 C 68 18 06/14/21 15:30 36.4 C L 65 13 06/14/21 15:20 71 13 06/14/21 15:10 65 17 06/14/21 15:00 70 13 06/14/21 14:50 69 13 06/14/21 14:40 70 20 06/14/21 14:33 36.3 C L 71 12 06/14/21 12:32 36.8 C 79 20 06/14/21 11:16 37.0 C 72 18 210/78 H BP Pulse Ox 06/14/21 17:39 178/67 H 94 06/14/21 16:39 184/69 H 100 06/14/21 16:21 175/75 H 99 06/14/21 15:50 164/69 H 97 06/14/21 15:30 134/61 96 06/14/21 15:20 183/65 H 97 06/14/21 15:10 150/57 H 88 L 06/14/21 15:00 200/73 H 97 06/14/21 14:50 193/68 H 98 06/14/21 14:40 192/81 H 97 06/14/21 14:33 185/62 H 95 06/14/21 12:32 218/69 H 97 06/14/21 11:16 96 PG Care Time/CCT Total # of Minutes Spent Total Time Spent with Patient: Total time spent is greater than 50% in coordination of care (as documented) at patient's floor/unit and/or counseling patient: Coding Level of Care Code 57036 Office/OBS Consult Lvl 2 Diagnoses Dehiscence of wound T81.30XA Depression F32.9 Hypertension, uncontrolled I10 Heart failure with mid-range ejection fraction I50.9 End-stage renal disease on hemodialysis N18.6; Z99.2 CAD (coronary artery disease) I25.10 Type 2 diabetes mellitus with insulin therapy E11.9; Z79.4
[2021-06-14] MEDS: oxyCODONE HCL IR 5 MG TAB (IMMEDIATE RELEASE) PO PRN (18:24)
[2021-06-14] MEDS: SENNA 8.6 MG TAB PO SCH (19:58)
[2021-06-14] MEDS: hydrALAZINE TAB 50 MG TAB PO SCH (19:59)
[2021-06-14] MEDS: DOCUSATE SODIUM 100 MG CAP PO SCH (20:00)
[2021-06-14] MEDS: amLODIPine BESYLATE 5 MG TAB PO SCH (20:00)
[2021-06-14] MEDS: ASPIRIN 81 MG ECTAB PO SCH (20:01)
[2021-06-14] MEDS: INSULIN GLARGINE SOLOSTAR 100 UNITS/ML 3 ML PEN SC SCH (21:49)
[2021-06-14] MEDS: ACETAMINOPHEN 500 MG TAB PO SCH (21:49)
[2021-06-14] MEDS: ATORVASTATIN 40 MG TAB PO SCH (21:50)
[2021-06-15] MEDS: oxyCODONE HCL IR 5 MG TAB (IMMEDIATE RELEASE) PO PRN ×2 (02:22→16:58)
[2021-06-15] MEDS: SODIUM CHLORIDE 0.9% 1000ML 1,000 ML IV SCH (03:26)
[2021-06-15] MEDS: ACETAMINOPHEN 500 MG TAB PO SCH ×3 (05:35→22:04)
[2021-06-15] MEDS: DOCUSATE SODIUM 100 MG CAP PO SCH ×2 (07:21→20:09)
[2021-06-15] MEDS: ASPIRIN 81 MG ECTAB PO SCH ×2 (07:21→20:09)
[2021-06-15] MEDS: VENLAFAXINE HCL XR 150 MG CAPXR PO SCH (07:22)
[2021-06-15] MEDS: MULTIVITAMIN TAB PO SCH (07:22)
[2021-06-15] MEDS: amLODIPine BESYLATE 5 MG TAB PO SCH ×2 (07:22→20:08)
[2021-06-15 07:46] LABS: Hematocrit (blood only) 29.1 % (37-47); Hemoglobin 8.3 g/dL (12.0-16.0); Mean Corpuscular Hemoglobin 28.2 pg (25-34); Mean Corpuscular Hgb Conc 28.5 g/dL (32-36); Mean Platelet Volume 9.5 fL (7.4-10.4); Platelet Count 233 K/uL (130-400); RDW Coefficient of Variation 18.9 % (11.5-14.5); RDW Standard Deviation 68.8 fL (36.4-46.3); Red Blood Count 2.94 M/uL (4.2-5.4); White Blood Count 7.02 K/uL (4.8-10.8)
[2021-06-15 07:57] LABS: BUN Creatinine Ratio 15.4 (10-20); Creatinine Clr Calc Pharmacy 18.9 ml/min; Est GFR (African American) 19.1 ml/min; Est GFR (Non-African American) 16.4 ml/min; Potassium 4.2 mmol/L (3.5-5.1)
[2021-06-15] MEDS: hydrALAZINE TAB 50 MG TAB PO SCH ×3 (08:01→20:07)
[2021-06-15] MEDS: INSULIN ASPART PER UNIT SC SCH ×4 (08:40→22:02)
--- NOTE | 2021-06-15 09:53 | Pharmacy Report ---
Pharmacy [facility] Short Note - Date of Service June 15, 2021 - Assessment & Plan Assessment 80 year old F admitted for dehiscence of wound. History of infected seroma R knee, underwent surgery/hardware placement. Discharged end of last month on 6 weeks of IV vancomycin for enterococcus - vancomycin given after dialysis days (MWF). Last vancomycin dose was 1250 mg x 1 after dialysis on 06/13. Patient underwent I&D / wound closure procedure yesterday Plan Vancomycin * Random vancomycin level this morning therapeutic at ~18 mcg/ml * Per notes, patient to receive usual dialysis today, therefore will plan to re- dose with vancomycin 1250 mg x 1 later this afternoon after dialysis * Will plan to order next random level for vancomycin prior to next HD session to assist with further dosing - likely Sunday 06/18 Pharmacy will continue to follow and will adjust dose/frequency as necessary. Thank you.
--- NOTE | 2021-06-15 11:02 | Orthopedic Progress Note ---
Date of Service June 15, 2021 Assessment & Plan (1) Dehiscence of wound: She is doing about as well as expected. She is going to dialysis today. Her knee is out in full extension. She can be weightbearing on her knee in full extension but she really cannot bend it. She is on vancomycin with her dialysis treatments. She is on aspirin for DVT prophylaxis. She is orthopedically stable for discharge when medically ready. She will need to go to a rehab facility. Case management currently working on it. Jason Masters was seen in examined at bedside today. She was getting ready for dialysis. She is having some soreness in the knee but is not too bad. She has no complaints. Review of Systems All systems reviewed & are unremarkable except as noted in HPI & below. Physical Exam On physical examination of the right knee, she is in the posterior splint. It is well-padded. Results & Data Results & Data Laboratory Results . Diagnostic Findings . PG Care Time/CCT Total # of Minutes Spent Total Time Spent with Patient: Total time spent is greater than 50% in coordination of care (as documented) at patient's floor/unit and/or counseling patient: Coding Level of Care Code 23145 Post Operative Follow-Up Diagnoses Dehiscence of wound T81.30XA
--- NOTE | 2021-06-15 11:31 | Nephrology Consultation ---
Date of Consultation June 15, 2021 Assessment & Plan (1) End-stage renal disease on hemodialysis: (2) Wound dehiscence: (3) Anemia: (4) Hypertension: End-stage renal disease on hemodialysis Friday, Friday, Friday, admitted with right knee wound dehiscence and had incision and drainage and closure yesterday. no postsurgical complications. Currently on IV vancomycin post dialysis. Blood pressure slightly elevated but volume status, electrolyte acceptable. AV fistula has been functioning well. -- Hemodialysis today as her regular schedule. -- Epogen 62182 units IV x1 dose during dialysis today. -- Left arm nephrology precaution, dose medications for GFR less than 10 will follow Thank you for allowing me to participate in your patient's care. It was a pleasure to see Minerva History of Present Illness Reason for Consultation: End-stage renal disease on hemodialysis. Attending Physician: Heriberto Ly DO History of Present Illness Mrs. Sonam Bolivar (Lucy) is a 80 y o f with PMH significant for ESRD on hemodialysis, T2DM, CAD, CHF with EF 45%, HTN, Graves Disease, and Depression admitted for right knee incision and drainage and wound closure. Nephrology consult requested to manage hemodialysis while inpatient. EMR records are reviewed in detail during patient's visit. Minerva presented to ER with Rt knee wound dehiscence. She had h/o R knee ORIF for a patella fracture approximately 4 weeks ago. She had a failed fixation and underwent revision with irrigation/debridement about 2 weeks ago. She had her follow-up and sutures removed on 06/12 but unfortunately Yesterday was found to have wound dehiscence and admitted to hospital for surgical intervention. She underwent Right Knee Incision and Drainage with patella tendon repair and wound closure on 06/14/21. She has been doing well post-operatively. Denies any pain. She is currently on IV vancomycin. Has End-stage renal disease secondary to diabetic nephropathy, currently on the to DKD. Minerva is maintained on hemodialysis MWF at [facility] under care of Dr. Schneider. she has been having regular dialysis, had dialysis Friday. EDW has been 83.5 kg, has well functioning L RC AVF which was placed by Dr. Gregg in October 2020. She the was seen while she is getting dialysis this morning. Has been tolerat ing dialysis well, otherwise doing well since surgery yesterday. Tolerating p.o. intake. Denies any significant pain at right knee, no shortness of breath or chest pain. Blood pressure slightly elevated but electrolyte acceptable. She does not make much urine anymore. Allergies Allergy/AdvReac Type Severity Reaction Status Date / Time codeine AdvReac Mild DOES NOT Verified 06/14/21 12:01 [address] THE [address] IT MAKES HER FEEL. Home Medications Medication Instructions Recorded Confirmed Type ascorbic acid (vitamin C) 500 mg 500 mg PO QAM tab 12/10/18 06/14/21 History tablet polyethylene glycol 3350 17 17 gm PO DAILY PRN gm 12/10/18 06/14/21 History gram/dose oral powder venlafaxine 150 mg 150 mg PO QAM cap 12/10/18 06/14/21 History capsule,extended release 24 hr calcium carbonate 600 mg-vitamin 2 tab PO QAM 03/09/20 06/14/21 History D3 10 mcg (400 unit) chewable tablet (Calcium 600 with Vitamin D3) isosorbide mononitrate 120 mg 120 mg PO QAM #90 tab 10/25/20 06/14/21 Rx tablet,extended release 24 hr amlodipine 5 mg tablet 5 mg PO BID #180 tab 11/23/20 06/14/21 Rx cholecalciferol (vitamin D3) 25 50 mcg PO BID cap 12/27/20 06/14/21 History mcg (1,000 unit) capsule hydralazine 50 mg tablet 50 mg PO TID #90 tab 02/28/21 06/14/21 Rx flash glucose scanning reader 05/10/21 05/29/21 History (FreeStyle Flash 2 [place]) flash glucose sensor (FreeStyle 05/10/21 05/29/21 History Flash 2 Sensor) insulin aspart U-100 100 unit/mL 7 unit SUBCUT TIDM ml 05/10/21 06/15/21 History (3 mL) subcutaneous pen (Novolog Flexpen U-100 Insulin aspart) insulin glargine 100 unit/mL (3 23 unit SUBCUT QPM ml 05/10/21 06/15/21 History mL) subcutaneous pen (Lantus Solostar U-100 Insulin) multivitamin 1 cap PO DAILY 05/18/21 06/14/21 History atorvastatin 80 mg tablet 80 mg PO HS #90 tab 05/29/21 06/14/21 Rx aspirin 81 mg tablet,delayed 81 mg PO BID #84 tab 06/03/21 Rx release (Adult Aspirin Regimen) vancomycin 1.25 gram intravenous See Rx Instructions .ROUTE 06/03/21 06/14/21 Rx solution .COMPLEX 42 Days #6 vial tramadol 50 mg tablet 50 mg PO Q6H PRN #60 tab 06/04/21 06/14/21 Rx vitamins A,C,N-jcqz-mygcfu 14,320 1 cap PO BID 06/14/21 06/14/21 History unit-226 mg-200 unit capsule (PreserVision AREDS) Patient History Medical History Anemia AV fistula LEFT CAD (coronary artery disease) Carotid artery disease less than 50% ICA stenosis per 08/2016 carotid duplex CHF (congestive heart failure) Chronic gastroesophageal reflux disease Chronic kidney disease on HD Depression Diabetic peripheral neuropathy associated with type 2 diabetes mellitus Dialysis patient 3XWK (M/W/F) [facility] Dyslipidemia Gallstones Generalized osteoarthritis of multiple sites Graves disease H/O malignant neoplasm of uterine body Hiatal hernia History of kidney stones Hypertension Irregular heart beat metoprolol for this per pt Macular degeneration Moderate calcific aortic stenosis Multinodular goiter (nontoxic) Multiple thyroid nodules Obesity Osteopenia Secondary hyperparathyroidism Sleep apnea No device Type 2 diabetes mellitus with insulin therapy Surgical History H/O abdominoplasty H/O basal cell carcinoma excision H/O shoulder surgery Right History of appendectomy History of cataract surgery R/L History of colonoscopy History of esophagogastroduodenoscopy (EGD) History of hip surgery Closed intertrochanteric fracture of left femur 04/10/2021: 02/16/2021: Grade 4 view, MAC#3, ETT#7.0. No issues per anesthesia postop progress note. History of open reduction and internal fixation (ORIF) procedure right patella 05/18/2021: LMA#4 atraumatic + PNB. No issues per anesthesia postop progress note. History of tonsillectomy History of tooth extraction S/P complete hysterectomy Status post knee surgery 05/31/21 Dr. Heriberto Malachi- Incision and Debridement Right Knee, Right Open Reduction Internal Fixation Patella, Hardware Removal(Right) Family History Father Diabetes Lung cancer Family history of diabetes mellitus Mother , in a home fire Hypertension Family history of diabetes mellitus Daughter Family history of diabetes mellitus Son Family history of diabetes mellitus Other No family history of adverse response to anesthesia Denies family history of Ovarian cancer Prostate cancer Myocardial infarction Breast cancer Colorectal cancer Social History Smoking Status: Former smoker Tobacco Type: Cigarettes Smoking End Date: 2004; Second Hand Exposure: No; Hx Alcohol Use: Yes Alcohol type: wine Hx Substance Use: No Preferred Language: [place] Communication Ability: Effective Visual Impairment: No Limitations Hearing Ability: Normal Dip Filler Required: No Beliefs That Will Affect Care: None marital status: / Current Living Situation: Family Current Living Situation Comment: Son and Daughter in Law current occupational status: retired Feels Safe at Home: Yes Safety Concerns Comment: unsteady at times Childhood Exposure to Second-Hand Smoke: Yes Dental Care, Regularly: No Physical Activity Frequency: Does not Exercise Seatbelt Use: always Sunscreen Use: No Assistive Devices: None Assistive Devices Comment: Assistive devices not here Review of Systems Review of Systems: Detailed review of system was otherwise unremarkable except mentioned above. Physical Exam Constitutional: WD/WN, vitals as above no acute distress The Eyes: + anicteric sclerae Neck: normal visual inspection Thyroid: no thyromegaly Respiratory: normal respiratory effort; no respiratory distress and no cough Auscultation: lungs clear to auscultation bilaterally Cardiovascular: Rate/Rhythm: regular rate and regular rhythm Heart Sounds: normal S1 and normal S2 Extremities: no edema Gastrointestinal (Abdomen): Inspection/Auscultation: abdomen normal to inspection and normal bowel sounds Percussion/Palpation: abdomen soft; abdomen nontender Musculoskeletal: Right lower extremity dressing intact. Skin: no rashes Neurologic: no focal motor deficits and not confused Psychiatric: Orientation: alert and oriented x 3 Affect: euthymic affect Results & Data ([facility]) Vital Signs (Past 12 Hours) Vital Signs Temp Pulse Pulse Resp BP Pulse Ox 06/15/21 10:03 37.0 C 74 06/15/21 07:12 36.8 C 75 18 163/66 H 92 06/15/21 05:33 170/61 H 06/15/21 03:25 36.7 C 69 20 179/71 H 91 PG Care Time/CCT Total # of Minutes Spent Total Time Spent with Patient: Total time spent is greater than 50% in coordination of care (as documented) at patient's floor/unit and/or counseling patient: Coding Level of Care Code 79825 Initial Inpt Care Lvl 3 Diagnoses End-stage renal disease on hemodialysis N18.6; Z99.2 Wound dehiscence T81.30XA Anemia N18.6; D63.1; Z99.2 Anemia type: due to chronic kidney disease Chronic kidney disease stage: on chronic dialysis Hypertension I10 Hypertension type: unspecified (1) Anemia Anemia type: due to chronic kidney disease Chronic kidney disease stage: on chronic dialysis Qualified Code(s): N18.6 - End stage renal disease; D63.1 - Anemia in chronic kidney disease; Z99.2 - Dependence on renal dialysis (2) Hypertension Hypertension type: unspecified Qualified Code(s): I10 - Essential (primary) hypertension
[2021-06-15] MEDS ORDERED: EPOETIN ALFA 20,000 UNITS/ML VIAL IV ONE (12:15)
--- NOTE | 2021-06-15 14:09 | Pharmacy Report ---
Pharmacy Glycemic Short Note 2 - Date of Service June 15, 2021 - Glycemic Short BSG Results (Last 24 hours): 06/14/21 06/14/21 06/14/21 14:38 17:02 20:57 Glucose POC Glucose 152 H 154 H 164 H 06/15/21 06/15/21 06/15/21 06:50 08:11 13:39 Glucose 137 H POC Glucose 153 H 133 H OUTPATIENT ANTIDIABETIC REGIMEN: * Lantus 23 units HS, Novolog 7 units tidm + SSI ; 3-4 units HS if BSG >250 mg/dL (taken from last admission medication list) ASSESSMENT: * Patient admitted for dehiscence of wound. Pharmacy consulted for glycemic management * Patient known to glycemic service from other admissions. * Patient received total of 17 units of insulin yesterday, of which 15 units were basal * Fasting BSG 137 mg/dL - plan to continue same basal insulin PLAN FOR INPATIENT GLYCEMIC CONTROL: * Hold outpatient oral diabetes medications * Basal insulin - no change * Lantus 15 units HS * Bolus insulin * NovoLog per scale ACHS or Q6hrs while NPO * Goal Range: Low 110 mg/dL - High 140 mg/dL * Correction Factor: 30 mg/dL/unit * Nutritional / Prandial insulin per carb ratio of 1 unit per 10 grams CHO consumed PLAN FOR DISCHARGE: * Reasonable to continue home DM regimen on discharge as long as patient is not experiencing frequent hypo/hyperglycemia
[2021-06-15] MEDS ORDERED: VANCOMYCIN HCL 1,250 MG in SODIUM CHLORIDE 0.9% 250 ML IV ONE (16:00)
--- NOTE | 2021-06-15 18:02 | Hospitalist Progress Note ---
Date of Service June 15, 2021 Assessment & Plan (1) Dehiscence of wound: Plan: - H/O R patella fracture with ORIF approx. 1 month ago then with revision 2 weeks ago. Now with wound dehiscence - S/P irrigation/debridement with closure on 06/14 - noted per operative report to have rupture of patella tendon - Patient on Vanc dosed on dialysis days - Management per primary service (2) End-stage renal disease on hemodialysis: Plan: - Follows a MWF schedule; Labs are very good with no electrolyte abnormalities - was dialyzed on 06/15 - Consulted nephrology - discussed with Dr. Shipman (3) CAD (coronary artery disease): Plan: - STABLE; no reports of CP - Continue ASA; Atorvastatin 80 mg HS (4) Hypertension, uncontrolled: Plan: - Improved compared to yesterday - Continue Amlodipine 5 mg BID and Hydralazine 50 mg TID (5) Heart failure with mid-range ejection fraction: Plan: - EF 45%; no signs of decompensation - Did have some desaturations when laying down but denied SOB and may be a bit of sleep apnea/hypoventilation contributing but monitor volume status - Medical management as above (6) Type 2 diabetes mellitus with insulin therapy: Plan: - A1c 6.2; Controlled - Glycemic pharmacy on consult - appreciate input (7) Depression: Plan: - STABLE - Continue Venlafaxine 150 mg daily Plan: Patient is stable from her chronic medical conditions. Hospitalists will continue to follow. Patient is in agreement for rehab if indicated - PT/OT ordered Admission and Anticipated Discharge Date Admission Date: June 14, 2021 Subjective No acute events overnight. Doing well today. She had dialysis this AM so she reports feeling a bit wiped out. Her knee is not too bothersome today but admits it is hard to get around right now. She is agreeing to rehab if it is recommended. PT/OT are ordered. Verbalizes no new complaitns. Review of Systems Review of Systems: All systems reviewed & are unremarkable except as noted in Subjective Physical Exam Physical Exam: PHYSICAL EXAM General Appearance: WDWN in NAD who is A&O x 3 HEENT: Head is normocephalic/atraumatic; Hearing grossly intact; Mucous membranes moist Neck: Supple; Trachea midline; Neg JVD Heart: RRR with no M/G/R Lungs: CTA in all lung knowles bilaterally; Respirations unlabored; Neg accessory muscle use Abdomen: Soft, non-tender, non-distended; Positive BS x 4 quadrants Extremities: Neg cyanosis or edema; RLE with surgical dressing in place C/D/I Neurological: Speech clear; Gross motor/sensory function intact; Neg focal neurologic deficits Psychiatric: Appropriate mood/affect Skin: Normal Color; Warm/Dry Results & Data Results & Data ([facility]) Vital Signs (Past 12 Hours) Vital Signs Temp Pulse Pulse Pulse Resp BP BP 06/15/21 15:28 37 C 82 16 153/71 H 06/15/21 13:51 36.6 C 72 18 140/70 06/15/21 13:25 37.1 C 79 171/64 H 06/15/21 13:00 75 128/54 L 06/15/21 12:40 73 146/54 H 06/15/21 12:20 67 146/54 H 06/15/21 12:00 68 136/54 L 06/15/21 11:40 72 131/56 L 06/15/21 11:20 68 134/52 L 06/15/21 11:00 66 127/52 L 06/15/21 10:40 69 125/45 L 06/15/21 10:20 67 158/64 H 06/15/21 10:10 69 155/56 H 06/15/21 10:03 37.0 C 74 06/15/21 07:12 36.8 C 75 18 163/66 H Pulse Ox 06/15/21 15:28 91 06/15/21 13:51 96 06/15/21 13:25 06/15/21 13:00 06/15/21 12:40 06/15/21 12:20 06/15/21 12:00 06/15/21 11:40 06/15/21 11:20 06/15/21 11:00 06/15/21 10:40 06/15/21 10:20 06/15/21 10:10 06/15/21 10:03 06/15/21 07:12 92 PG Care Time/CCT Total # of Minutes Spent Total Time Spent with Patient: Total time spent is greater than 50% in coordination of care (as documented) at patient's floor/unit and/or counseling patient: Coding Level of Care Code 83402 Inpt Consult Level 2 Diagnoses Dehiscence of wound T81.30XA End-stage renal disease on hemodialysis N18.6; Z99.2 CAD (coronary artery disease) I25.10 Hypertension, uncontrolled I10 Heart failure with mid-range ejection fraction I50.9 Type 2 diabetes mellitus with insulin therapy E11.9; Z79.4 Depression F32.9
[2021-06-15] MEDS: SENNA 8.6 MG TAB PO SCH (20:07)
[2021-06-15] MEDS: ATORVASTATIN 40 MG TAB PO SCH (20:08)
[2021-06-15] MEDS: INSULIN GLARGINE SOLOSTAR 100 UNITS/ML 3 ML PEN SC SCH (22:03)
[2021-06-16] MEDS: ACETAMINOPHEN 500 MG TAB PO SCH ×3 (06:11→21:33)
--- NOTE | 2021-06-16 08:19 | Orthopedic Progress Note ---
Date of Service June 16, 2021 Assessment & Plan (1) Dehiscence of wound: She is doing as well as expected right now with her right knee. She will need to stay on vancomycin with her hemodialysis treatments to help prevent any infections. She is having wound breakdown around the skin. She has been very noncompliant with the knee immobilizer. Because of her wound breakdowns I cannot cast her. The family is adamant that they do not want her returning home. I think she would do best with a rehab stay. She does need hemodialysis treatments on Friday and Friday. We are keeping her in the hospital now for pain control and to make sure that she is compliant with not bending her right knee. We are also checking the wounds daily. She will likely be ready for discharge once a bed becomes available at a rehab or nursing facility. Jason Masters was seen and examined at bedside this morning. Overall she doing fairly well. She was able to stand some yesterday with therapy. The dressing had been changed. She has no complaints. Review of Systems All systems reviewed & are unremarkable except as noted in HPI & below. Physical Exam On physical examination of the right knee, the wound is closed. There is little erythema around it. I did redress the leg with web roll and a posterior splint. Results & Data Results & Data Laboratory Results . Diagnostic Findings . PG Care Time/CCT Total # of Minutes Spent Total Time Spent with Patient: Total time spent is greater than 50% in coordination of care (as documented) at patient's floor/unit and/or counseling patient: Coding Level of Care Code 50470 Post Operative Follow-Up Diagnoses Dehiscence of wound T81.30XA
[2021-06-16 09:41] LABS: Basophils # (auto) 0.05 K/uL (0-0.2); Basophils % (auto) 0.8 %; Eosinophils # (auto) 0.43 K/uL (0-0.5); Hematocrit (blood only) 28.7 % (37-47); Hemoglobin 8.1 g/dL (12.0-16.0); Immature Granulocytes # (auto) 0.04 K/uL (0.00-0.02); Immature Granulocytes % (auto) 0.6 %; Lymphocytes # (auto) 0.85 K/uL (1.2-3.4); Lymphocytes % (auto) 13.8 %; Mean Corpuscular Hgb Conc 28.2 g/dL (32-36); Mean Corpuscular Volume 99.3 fL (80-100); Mean Platelet Volume 8.9 fL (7.4-10.4); Monocytes # (auto) 0.63 K/uL (0.11-0.59); Monocytes % (auto) 10.2 %; Neutrophils # (auto) 4.16 K/uL (1.4-6.5); Neutrophils % (auto) 67.6 %; Platelet Count 189 K/uL (130-400); RDW Coefficient of Variation 18.6 % (11.5-14.5); RDW Standard Deviation 67.5 fL (36.4-46.3); Red Blood Count 2.89 M/uL (4.2-5.4); White Blood Count 6.16 K/uL (4.8-10.8)
[2021-06-16] MEDS: INSULIN ASPART PER UNIT SC SCH ×4 (10:29→20:30)
[2021-06-16] MEDS: ASPIRIN 81 MG ECTAB PO SCH ×2 (10:36→20:32)
[2021-06-16] MEDS: amLODIPine BESYLATE 5 MG TAB PO SCH ×2 (10:36→20:31)
[2021-06-16] MEDS: DOCUSATE SODIUM 100 MG CAP PO SCH ×2 (10:36→20:30)
[2021-06-16] MEDS: MULTIVITAMIN TAB PO SCH (10:36)
[2021-06-16] MEDS: hydrALAZINE TAB 50 MG TAB PO SCH ×3 (10:36→20:32)
[2021-06-16] MEDS: VENLAFAXINE HCL XR 150 MG CAPXR PO SCH (10:36)
--- NOTE | 2021-06-16 11:55 | Hospitalist Progress Note ---
Date of Service June 16, 2021 Assessment & Plan (1) Dehiscence of wound: Plan: - H/O R patella fracture with ORIF approx. 1 month ago then with revision 2 weeks ago for infected seroma. Now with wound dehiscence - S/P irrigation/debridement with closure on 06/14 - noted per operative report to have rupture of patella tendon - Patient on Vanc dosed on dialysis days-continue for 6 weeks from previous hospitalization - Management per primary service To remain in immobilizer at all times Will need rehab Control with acetaminophen, IV Dilaudid as needed, oxycodone as needed DVT prophylaxis with aspirin twice daily (2) End-stage renal disease on hemodialysis: Plan: - Follows a MWF schedule; Labs are very good with no electrolyte abnormalities - was dialyzed on 06/15 - Consulted nephrology-appreciated -Will ensure dialysis diet (3) Heart failure with mid-range ejection fraction: Plan: Heart failure with moderate ejection fraction, history of CAD Continue atorvastatin 80 mg daily,ASA Continue isosorbide mononitrate 120 mg every 24 hours Patient on hemodialysis - TTE 10/2020: EF~45%. Appears near euvolemic, no signs of overload (4) CAD (coronary artery disease): Plan: Noted, as above Aspirin, statin (5) Hypertension, uncontrolled: Plan: -With some elevated blood pressures - Continue Amlodipine 5 mg BID and Hydralazine 50 mg TID -Continue to monitor (6) Type 2 diabetes mellitus with insulin therapy: Plan: - A1c 6.2; Controlled - Glycemic pharmacy on consult - appreciate input (7) Depression: Plan: - STABLE - Continue Venlafaxine 150 mg daily (8) Moderate calcific aortic stenosis: Plan: On last echocardiogram from 10/2020 (9) Anemia: Plan: hgb 8.1 and stable from previous, normocytic last transferrin sat low at 9% in 02/2021 receives Venofer and Epogen through Nephro follow CBC Plan: Patient is stable from her chronic medical conditions. Hospitalists will continue to follow. Patient is in agreement for rehab if indicated - PT/OT ordered Admission and Anticipated Discharge Date Admission Date: June 14, 2021 Subjective Patient reports some pain in the knee but is doing okay otherwise. No headache or nausea, no chest pain or shortness of breath, no abdominal pain. Review of Systems Review of Systems: All systems reviewed & are unremarkable except as noted in HPI & below Physical Exam Constitutional: WD/WN, vitals as above Eyes: + anicteric sclerae Neck: trachea midline, no thyromegaly Respiratory: normal respiratory effort, lungs clear to auscultation Cardiovascular: Rate/Rhythm: regular rate and regular rhythm Heart Sounds: + murmur (2/6 IWONA at RUSB) Chest (Breasts): Chest: normal inspection of chest Gastrointestinal (Abdomen): normal bowel sounds, soft, nontender, no he patosplenomegaly Musculoskeletal: Extremities: + extremities abnormal to inspection (RLE in immobilizer with LASHAY wrap), no cyanosis and no clubbing Skin: no rashes, warm and dry Neurologic: moves all extremities and awake; no focal motor deficits Psychiatric: A+Ox3, euthymic affect Lymphatic: no lymphedema Results & Data Results & Data ([facility]) Vital Signs (Past 12 Hours) Vital Signs Temp Pulse Resp BP Pulse Ox 06/16/21 07:13 36.7 C 70 16 168/69 H 99 06/16/21 02:14 66 174/72 H Laboratory Results 06/16/21 06/16/21 06/16/21 Range/Units 11:54 09:17 08:05 WBC 6.16 (4.8-10.8) K/uL RBC 2.89 L (4.2-5.4) M/uL Hgb 8.1 L (12.0-16.0) g/dL Hct 28.7 L (37-47) % MCV 99.3 (80-100) fL MCH 28.0 (25-34) pg MCHC 28.2 L (32-36) g/dL RDW Std Deviation 67.5 H (36.4-46.3) fL RDW Coeff of Chris 18.6 H (11.5-14.5) % Plt Count 189 (130-400) K/uL MPV 8.9 (7.4-10.4) fL Immature Gran % (Auto) 0.6 % Neut % (Auto) 67.6 % Lymph % (Auto) 13.8 % [place] % (Auto) 10.2 % Eos % (Auto) 7.0 % Baso % (Auto) 0.8 % Neut # (Auto) 4.16 (1.4-6.5) K/uL Lymph # (Auto) 0.85 L (1.2-3.4) K/uL [place] # (Auto) 0.63 H (0.11-0.59) K/uL Eos # (Auto) 0.43 (0-0.5) K/uL Baso # (Auto) 0.05 (0-0.2) K/uL Immature Gran # (Auto) 0.04 H (0.00-0.02) K/uL POC Glucose 181 H 133 H (70-99) mg/dl 06/15/21 06/15/21 06/15/21 Range/Units 21:35 17:08 13:39 WBC (4.8-10.8) K/uL RBC (4.2-5.4) M/uL Hgb (12.0-16.0) g/dL Hct (37-47) % MCV (80-100) fL MCH (25-34) pg MCHC (32-36) g/dL RDW Std Deviation (36.4-46.3) fL RDW Coeff of Chris (11.5-14.5) % Plt Count (130-400) K/uL MPV (7.4-10.4) fL Immature Gran % (Auto) % Neut % (Auto) % Lymph % (Auto) % [place] % (Auto) % Eos % (Auto) % Baso % (Auto) % Neut # (Auto) (1.4-6.5) K/uL Lymph # (Auto) (1.2-3.4) K/uL [place] # (Auto) (0.11-0.59) K/uL Eos # (Auto) (0-0.5) K/uL Baso # (Auto) (0-0.2) K/uL Immature Gran # (Auto) (0.00-0.02) K/uL POC Glucose 149 H 143 H 133 H (70-99) mg/dl PG Care Time/CCT Total # of Minutes Spent Total Time Spent with Patient: Total time spent is greater than 50% in coordination of care (as documented) at patient's floor/unit and/or counseling patient: Coding Level of Care Code 60067 Subseq Hosp Care Lvl 1 Diagnoses Dehiscence of wound T81.30XA End-stage renal disease on hemodialysis N18.6; Z99.2 CAD (coronary artery disease) I25.10 Hypertension, uncontrolled I10 Heart failure with mid-range ejection fraction I50.9 Type 2 diabetes mellitus with insulin therapy E11.9; Z79.4 Depression F32.9 Moderate calcific aortic stenosis I35.0 Anemia N18.6; D63.1; Z99.2 Anemia type: due to chronic kidney disease Chronic kidney disease stage: on chronic dialysis (1) Anemia Anemia type: due to chronic kidney disease Chronic kidney disease stage: on chronic dialysis Qualified Code(s): N18.6 - End stage renal disease; D63.1 - Anemia in chronic kidney disease; Z99.2 - Dependence on renal dialysis
--- NOTE | 2021-06-16 13:13 | Nephrology Progress Note ---
Date of Service June 16, 2021 Assessment & Plan (1) End-stage renal disease on hemodialysis: (2) Wound dehiscence: Plan: POD #2 s/p I&D and wound closure. Remains on vancomycin dosing coordinated with HD. (3) Anemia: (4) Hypertension: Plan: ESRD on HD via AVF MWF. Adequate clearance and UF yesterday. Volume status reasonable. Electrolytes controlled. Next anticipated HD will be Friday. Medications appropriately dosed for kidney dysfunction; Epogen 64350 units provided with HD yesterday. Admission and Anticipated Discharge Date Admission Date: June 14, 2021 Subjective No acute events overnight. Minerva was seen and evaluated in her hospital room this morning. She feels well. Completed HD yesterday without complications. Pain controlled. No fevers or chills. Review of Systems Review of Systems: All systems reviewed & are unremarkable except as noted in HPI & below Physical Exam Constitutional: WD/WN, vitals as above Eyes: + anicteric sclerae Neck: trachea midline, no thyromegaly Respiratory: normal respiratory effort, lungs clear to auscultation Cardiovascular: Rate/Rhythm: regular rate and regular rhythm Heart Sounds: + murmur (2/6 IWONA at RUSB) Chest (Breasts): Chest: normal inspection of chest Gastrointestinal (Abdomen): normal bowel sounds, soft, nontender, no hepatosplenomegaly Musculoskeletal: Extremities: + extremities abnormal to inspection (RLE in immobilizer with LASHAY wrap), no cyanosis and no clubbing Skin: no rashes, warm and dry Neurologic: moves all extremities and awake; no focal motor deficits Psychiatric: A+Ox3, euthymic affect Lymphatic: no lymphedema Results & Data ([facility]) Vital Signs (Past 12 Hours) Vital Signs Temp Pulse Resp BP Pulse Ox 06/16/21 07:13 36.7 C 70 16 168/69 H 99 06/16/21 02:14 66 174/72 H Laboratory Results Laboratory Results - last 24 hr 06/15/21 06/15/21 06/15/21 13:39 17:08 21:35 WBC RBC Hgb Hct MCV MCH MCHC RDW Std Deviation RDW Coeff of Chris Plt Count MPV Immature Gran % (Auto) Neut % (Auto) Lymph % (Auto) [place] % (Auto) Eos % (Auto) Baso % (Auto) Neut # (Auto) Lymph # (Auto) [place] # (Auto) Eos # (Auto) Baso # (Auto) Immature Gran # (Auto) POC Glucose 133 H 143 H 149 H 06/16/21 06/16/21 06/16/21 08:05 09:17 11:54 WBC 6.16 RBC 2.89 L Hgb 8.1 L Hct 28.7 L MCV 99.3 MCH 28.0 MCHC 28.2 L RDW Std Deviation 67.5 H RDW Coeff of Chris 18.6 H Plt Count 189 MPV 8.9 Immature Gran % (Auto) 0.6 Neut % (Auto) 67.6 Lymph % (Auto) 13.8 [place] % (Auto) 10.2 Eos % (Auto) 7.0 Baso % (Auto) 0.8 Neut # (Auto) 4.16 Lymph # (Auto) 0.[address] [place] # (Auto) 0.63 H Eos # (Auto) 0.43 Baso # (Auto) 0.05 Immature Gran # (Auto) 0.04 H POC Glucose 133 H 181 H PG Care Time/CCT Total # of Minutes Spent Total Time Spent with Patient: Total time spent is greater than 50% in coordination of care (as documented) at patient's floor/unit and/or counseling patient: Coding Level of Care Code 98087 Subseq Hosp Care Lvl 3 Diagnoses End-stage renal disease on hemodialysis N18.6; Z99.2 Wound dehiscence T81.30XA Anemia N18.6; D63.1; Z99.2 Anemia type: due to chronic kidney disease Chronic kidney disease stage: on chronic dialysis Hypertension I10 Hypertension type: unspecified (1) Anemia Anemia type: due to chronic kidney disease Chronic kidney disease stage: on chronic dialysis Qualified Code(s): N18.6 - End stage renal disease; D63.1 - Anemia in chronic kidney disease; Z99.2 - Dependence on renal dialysis (2) Hypertension Hypertension type: unspecified Qualified Code(s): I10 - Essential (primary) hypertension
[2021-06-16] MEDS: INSULIN GLARGINE SOLOSTAR 100 UNITS/ML 3 ML PEN SC SCH (20:29)
[2021-06-16] MEDS: SENNA 8.6 MG TAB PO SCH (20:31)
[2021-06-16] MEDS: ATORVASTATIN 40 MG TAB PO SCH (20:32)
[2021-06-17] MEDS: ACETAMINOPHEN 500 MG TAB PO SCH ×3 (05:28→21:52)
[2021-06-17 07:18] LABS: Basophils # (auto) 0.12 K/uL (0-0.2); Basophils % (auto) 1.7 %; Eosinophils # (auto) 0.53 K/uL (0-0.5); Eosinophils % (auto) 7.6 %; Hematocrit (blood only) 29.2 % (37-47); Hemoglobin 8.4 g/dL (12.0-16.0); Immature Granulocytes # (auto) 0.09 K/uL (0.00-0.02); Immature Granulocytes % (auto) 1.3 %; Lymphocytes # (auto) 1.29 K/uL (1.2-3.4); Lymphocytes % (auto) 18.6 %; Mean Corpuscular Hemoglobin 28.1 pg (25-34); Mean Corpuscular Hgb Conc 28.8 g/dL (32-36); Mean Corpuscular Volume 97.7 fL (80-100); Mean Platelet Volume 9.1 fL (7.4-10.4); Monocytes # (auto) 0.48 K/uL (0.11-0.59); Monocytes % (auto) 6.9 %; Neutrophils # (auto) 4.42 K/uL (1.4-6.5); Neutrophils % (auto) 63.9 %; Platelet Count 243 K/uL (130-400); RDW Coefficient of Variation 18.4 % (11.5-14.5); RDW Standard Deviation 65.7 fL (36.4-46.3); Red Blood Count 2.99 M/uL (4.2-5.4); White Blood Count 6.93 K/uL (4.8-10.8)
[2021-06-17 07:37] LABS: BUN Creatinine Ratio 18.9 (10-20); Calcium 9.4 mg/dl (8.5-10.1); Creatinine Clr Calc Pharmacy 17.6 ml/min; Est GFR (Non-African American) 15.5 ml/min; Potassium 4.4 mmol/L (3.5-5.1)
[2021-06-17] MEDS ORDERED: VANCOMYCIN CONSULT ACTIVE PRN (08:17)
--- NOTE | 2021-06-17 08:23 | Orthopedic Progress Note ---
Date of Service June 17, 2021 Assessment & Plan (1) Dehiscence of wound: Overall she is doing about as well as expected. She can be weightbearing as tolerated with her knee in full extension. We will likely change the dressing tomorrow and take another look at the wounds. She is scheduled for dialysis on Friday and Friday. She is getting vancomycin with her dialysis treatment. She will likely need placement in a rehab facility. The family is very adamant that she is unable to care for self at home. This has been evident with 3 surgeries to the right knee over the last 2 weeks, mostly due to noncompliance. Jason Masters was seen and examined at bedside this morning. Overall she is doing fairly well. She is not having much pain in the right knee. Her knee splint is in place this morning. She has no complaints. Review of Systems All systems reviewed & are unremarkable except as noted in HPI & below. Physical Exam On physical examination of the right knee, the dressing is clean and dry. Her leg is out full extension with the posterior splint appropriately placed. She still having some weakness with ankle dorsiflexion. She is unsure if it was like this before the previous procedure. She has good plantarflexion of her ankle but she is weak with dorsiflexion. Posterior splint and the Marcio wrap are fairly loose fitting and the dressing has already been changed. The I&D and wound closure on the anterior aspect of her knee should not have affected the peroneal nerve which runs posteriorly. We will continue to watch this closely. Results & Data Results & Data Laboratory Results . Diagnostic Findings . PG Care Time/CCT Total # of Minutes Spent Total Time Spent with Patient: Total time spent is greater than 50% in coordination of care (as documented) at patient's floor/unit and/or counseling patient: Coding Level of Care Code 96097 Post Operative Follow-Up Diagnoses Dehiscence of wound T81.30XA
[2021-06-17] MEDS ORDERED: VANCOMYCIN HCL 1,000 MG in SODIUM CHLORIDE 0.9% 250 ML IV SCH (08:30)
[2021-06-17] MEDS: INSULIN ASPART PER UNIT SC SCH ×4 (08:55→21:58)
[2021-06-17] MEDS: VENLAFAXINE HCL XR 150 MG CAPXR PO SCH (09:01)
[2021-06-17] MEDS: MULTIVITAMIN TAB PO SCH (09:01)
[2021-06-17] MEDS: amLODIPine BESYLATE 5 MG TAB PO SCH ×2 (09:01→21:50)
[2021-06-17] MEDS: hydrALAZINE TAB 50 MG TAB PO SCH ×3 (09:01→21:51)
[2021-06-17] MEDS: ASPIRIN 81 MG ECTAB PO SCH ×2 (09:01→21:50)
[2021-06-17] MEDS: DOCUSATE SODIUM 100 MG CAP PO SCH ×2 (09:01→21:51)
--- NOTE | 2021-06-17 09:29 | Pharmacy Report ---
Pharmacy Glycemic Short Note 2 - Date of Service June 17, 2021 - Glycemic Short BSG Results (Last 24 hours): 06/16/21 06/16/21 06/16/21 11:54 16:47 20:28 Glucose POC Glucose 181 H 119 H 105 H 06/17/21 06/17/21 07:04 08:07 Glucose 118 H POC Glucose 123 H OUTPATIENT ANTIDIABETIC REGIMEN: * Lantus 23 units HS, Novolog 7 units tidm + SSI ; 3-4 units HS if BSG >250 mg/dL (taken from last admission medication list) ASSESSMENT: 06/17 * BSGs yesterday of 133, 181, 119, and 105 mg/dL, fasting BSG of 123 mg/dL this morning * Received 32 units of insulin (15 units of Lantus and 17 units of Novolog) * No change to stressors, plan to continue current insulin regimen 06/15 * Patient admitted for dehiscence of wound. Pharmacy consulted for glycemic management * Patient known to glycemic service from other admissions. * Patient received total of 17 units of insulin yesterday, of which 15 units were basal * Fasting BSG 137 mg/dL - plan to continue same basal insulin PLAN FOR INPATIENT GLYCEMIC CONTROL: * Basal insulin - no change * Lantus 15 units HS * Bolus insulin * NovoLog per scale ACHS or Q6hrs while NPO * Goal Range: Low 110 mg/dL - High 140 mg/dL * Correction Factor: 30 mg/dL/unit * Nutritional / Prandial insulin per carb ratio of 1 unit per 9 grams CHO consumed PLAN FOR DISCHARGE: * Reasonable to continue home DM regimen on discharge as long as patient is not experiencing frequent hypo/hyperglycemia
[2021-06-17] MEDS ORDERED: hydrALAZINE HCL 20 MG/ML VIAL IV PRN (09:33)
--- NOTE | 2021-06-17 11:18 | Nephrology Progress Note ---
Date of Service June 17, 2021 Assessment & Plan (1) End-stage renal disease on hemodialysis: (2) Wound dehiscence: Plan: POD #3 s/p I&D and wound closure. Remains on vancomycin dosing coordinated with HD. (3) Anemia: (4) Hypertension: Plan: Uncontrolled with amlodipine and hydralazine. Minerva does not recall being on LASHAY/ARB or beta-blockers in the past. Imdur from home medication list was restarted. Plan: ESRD on HD via AVF MWF. Volume status reasonable. Electrolytes controlled. Next HD tomorrow. Medications appropriately dosed for kidney dysfunction; Epogen 21129 units provided with HD 06/15. Admission and Anticipated Discharge Date Admission Date: June 14, 2021 Subjective No acute events overnight. Minerva was seen and evaluated in her hospital room this morning. She feels well. BP elevated but denies symptoms. Denies significant pain. Review of Systems Review of Systems: All systems reviewed & are unremarkable except as noted in HPI & below Physical Exam Constitutional: WD/WN, vitals as above Eyes: + anicteric sclerae Neck: trachea midline, no thyromegaly Respiratory: normal respiratory effort, lungs clear to auscultation Cardiovascular: Rate/Rhythm: regular rate and regular rhythm Heart Sounds: + murmur (2/6 IWONA at RUSB) Chest (Breasts): Chest: normal inspection of chest Gastrointestinal (Abdomen): normal bowel sounds, soft, nontender, no hepatosplenomegaly Musculoskeletal: Extremities: + extremities abnormal to inspection (RLE in immobilizer with LASHAY wrap), no cyanosis and no clubbing Skin: no rashes, warm and dry Neurologic: moves all extremities and awake; no focal motor deficits Psychiatric: A+Ox3, euthymic affect Lymphatic: no lymphedema Results & Data ([facility]) Vital Signs (Past 12 Hours) Vital Signs Temp Pulse Resp BP Pulse Ox 06/17/21 11:07 76 188/64 H 06/17/21 10:35 78 18 201/70 H 99 06/17/21 10:30 203/69 H 06/17/21 07:21 36.9 C 78 16 199/67 H 99 Laboratory Results Laboratory Results - last 24 hr 06/16/21 06/16/21 06/16/21 11:54 16:47 20:28 WBC RBC Hgb Hct MCV MCH MCHC RDW Std Deviation RDW Coeff of Chris Plt Count MPV Immature Gran % (Auto) Neut % (Auto) Lymph % (Auto) [place] % (Auto) Eos % (Auto) Baso % (Auto) Neut # (Auto) Lymph # (Auto) [place] # (Auto) Eos # (Auto) Baso # (Auto) Immature Gran # (Auto) Sodium Potassium Chloride Carbon Dioxide Anion Gap BUN Creatinine Est Cr Clr Drug Dosing Est GFR ( Amer) Est GFR (Non-Af Amer) BUN/Creatinine Ratio Glucose POC Glucose 181 H 119 H 105 H Calcium 06/17/21 06/17/21 06/17/21 07:04 07:04 08:07 WBC 6.93 RBC 2.99 L Hgb 8.4 L Hct 29.2 L MCV 97.7 MCH 28.1 MCHC 28.8 L RDW Std Deviation 65.7 H RDW Coeff of Chris 18.4 H Plt Count 243 MPV 9.1 Immature Gran % (Auto) 1.3 Neut % (Auto) 63.9 Lymph % (Auto) 18.6 [place] % (Auto) 6.9 Eos % (Auto) 7.6 Baso % (Auto) 1.7 Neut # (Auto) 4.42 Lymph # (Auto) 1.29 [place] # (Auto) 0.48 Eos # (Auto) 0.53 H Baso # (Auto) 0.12 Immature Gran # (Auto) 0.09 H Sodium 138 Potassium 4.4 Chloride 102 Carbon Dioxide 29 Anion Gap 7 BUN 53 H Creatinine 2.80 H Est Cr Clr Drug Dosing 17.6 Est GFR ( Amer) 18.0 Est GFR (Non-Af Amer) 15.5 BUN/Creatinine Ratio 18.9 Glucose 118 H POC Glucose 123 H Calcium 9.4 PG Care Time/CCT Total # of Minutes Spent Total Time Spent with Patient: Total time spent is greater than 50% in coordination of care (as documented) at patient's floor/unit and/or counseling patient: Coding Level of Care Code 52302 Subseq Hosp Care Lvl 3 Diagnoses End-stage renal disease on hemodialysis N18.6; Z99.2 Wound dehiscence T81.30XA Anemia N18.6; D63.1; Z99.2 Anemia type: due to chronic kidney disease Chronic kidney disease stage: on chronic dialysis Hypertension I10 Hypertension type: unspecified (1) Anemia Anemia type: due to chronic kidney disease Chronic kidney disease stage: on chronic dialysis Qualified Code(s): N18.6 - End stage renal disease; D63.1 - Anemia in chronic kidney disease; Z99.2 - Dependence on renal dialysis (2) Hypertension Hypertension type: unspecified Qualified Code(s): I10 - Essential (primary) hypertension
[2021-06-17] MEDS: ISOSORBIDE MONO EXTENDED REL 60 MG TABCR PO SCH (11:58)
--- NOTE | 2021-06-17 13:52 | Hospitalist Progress Note ---
Date of Service June 17, 2021 Assessment & Plan (1) Dehiscence of wound: Plan: - H/O R patella fracture with ORIF approx. 1 month ago then with revision 2 weeks ago for infected seroma. Now with wound dehiscence - S/P irrigation/debridement with closure on 06/14 - noted per operative report to have rupture of patella tendon - Patient on Vanc dosed on dialysis days-continue for 6 weeks from previous hospitalization - Management per primary service To remain in immobilizer at all times Will need rehab Control with acetaminophen, IV Dilaudid as needed, oxycodone as needed DVT prophylaxis with aspirin twice daily (2) End-stage renal disease on hemodialysis: Plan: - Follows a MWF schedule; Labs are very good with no electrolyte abnormalities - was dialyzed on 06/15 - Consulted nephrology-appreciated -Will ensure dialysis diet (3) Heart failure with mid-range ejection fraction: Plan: Heart failure with moderate ejection fraction, history of CAD Continue atorvastatin 80 mg daily,ASA restarted isosorbide mononitrate 120 mg every 24 hours, hydralazine tid Patient on hemodialysis - TTE 10/2020: EF~45%. Appears euvolemic, no signs of overload (4) CAD (coronary artery disease): Plan: Noted, as above Aspirin, statin (5) Hypertension, uncontrolled: Plan: -With some elevated blood pressures over 200 systolic today - Continue Amlodipine 5 mg BID and Hydralazine 50 mg TID -gave IV hdralazine 10mg x 1 -Nephrology noticed her home isosorbide was not ordered-ordered for today- appreciate this -Continue to monitor (6) Type 2 diabetes mellitus with insulin therapy: Plan: - A1c 6.2; Controlled - Glycemic pharmacy on consult - appreciate input (7) Depression: Plan: - STABLE - Continue Venlafaxine 150 mg daily (8) Moderate calcific aortic stenosis: Plan: On last echocardiogram from 10/2020 (9) Anemia: Plan: hgb 8.4 and stable from previous, normocytic last transferrin sat low at 9% in 02/2021 receives Venofer and Epogen through Nephro follow CBC Plan: Patient is stable from her chronic medical conditions. Hospitalists will continue to follow. Patient is in agreement for rehab if indicated - PT/OT ordered Admission and Anticipated Discharge Date Admission Date: June 14, 2021 Subjective Pt has no pain. Denies SOB or CP, is eating and drinking. BPs were high this AM and received IV hydralazine, home Imdur restarted. Constipated but feels like she is going ot have a BM today Review of Systems Review of Systems: All systems reviewed & are unremarkable except as noted in HPI & below Physical Exam Constitutional: WD/WN, vitals as above Eyes: + anicteric sclerae Neck: trachea midline, no thyromegaly Respiratory: normal respiratory effort, lungs clear to auscultation Cardiovascular: Rate/Rhythm: regular rate and regular rhythm Heart Sounds: + murmur (2/6 IWONA at RUSB) Chest (Breasts): Chest: normal inspection of chest Gastrointestinal (Abdomen): normal bowel sounds, soft, nontender, no hepa tosplenomegaly Musculoskeletal: Extremities: + extremities abnormal to inspection (RLE in immobilizer with LASHAY wrap), no cyanosis and no clubbing Skin: no rashes, warm and dry Neurologic: moves all extremities, + focal motor deficit (having 3/5 strength Rt ankle dorsiflexion) and awake Psychiatric: A+Ox3, euthymic affect Lymphatic: no lymphedema Results & Data Results & Data ([facility]) Vital Signs (Past 12 Hours) Vital Signs Temp Pulse Resp BP Pulse Ox 06/17/21 13:07 80 152/79 H 97 06/17/21 11:07 76 188/64 H 06/17/21 10:35 78 18 201/70 H 99 06/17/21 10:30 203/69 H 06/17/21 07:21 36.9 C 78 16 199/67 H 99 Laboratory Results 06/17/21 06/17/21 06/17/21 Range/Units 11:59 08:07 07:04 WBC (4.8-10.8) K/uL RBC (4.2-5.4) M/uL Hgb (12.0-16.0) g/dL Hct (37-47) % MCV (80-100) fL MCH (25-34) pg MCHC (32-36) g/dL RDW Std Deviation (36.4-46.3) fL RDW Coeff of Chris (11.5-14.5) % Plt Count (130-400) K/uL MPV (7.4-10.4) fL Immature Gran % (Auto) % Neut % (Auto) % Lymph % (Auto) % [place] % (Auto) % Eos % (Auto) % Baso % (Auto) % Neut # (Auto) (1.4-6.5) K/uL Lymph # (Auto) (1.2-3.4) K/uL [place] # (Auto) (0.11-0.59) K/uL Eos # (Auto) (0-0.5) K/uL Baso # (Auto) (0-0.2) K/uL Immature Gran # (Auto) (0.00-0.02) K/uL Sodium 138 (136-145) mmol/L Potassium 4.4 (3.5-5.1) mmol/L Chloride 102 (98-107) mmol/L Carbon Dioxide 29 (21-32) mmol/L Anion Gap 7 (3-11) BUN 53 H (6-23) mg/dl Creatinine 2.80 H (0.6-1.2) mg/dl Est Cr Clr Drug Dosing 17.6 ml/min Est GFR ( Amer) 18.0 ml/min Est GFR (Non-Af Amer) 15.5 ml/min BUN/Creatinine Ratio 18.9 (10-20) Glucose 118 H (70-99(Fasting)) mg/dl POC Glucose 167 H 123 H (70-99) mg/dl Calcium 9.4 (8.5-10.1) mg/dl 06/17/21 06/16/21 06/16/21 Range/Units 07:04 20:28 16:47 WBC 6.93 (4.8-10.8) K/uL RBC 2.99 L (4.2-5.4) M/uL Hgb 8.4 L (12.0-16.0) g/dL Hct 29.2 L (37-47) % MCV 97.7 (80-100) fL MCH 28.1 (25-34) pg MCHC 28.8 L (32-36) g/dL RDW Std Deviation 65.7 H (36.4-46.3) fL RDW Coeff of Chris 18.4 H (11.5-14.5) % Plt Count 243 (130-400) K/uL MPV 9.1 (7.4-10.4) fL Immature Gran % (Auto) 1.3 % Neut % (Auto) 63.9 % Lymph % (Auto) 18.6 % [place] % (Auto) 6.9 % Eos % (Auto) 7.6 % Baso % (Auto) 1.7 % Neut # (Auto) 4.42 (1.4-6.5) K/uL Lymph # (Auto) 1.29 (1.2-3.4) K/uL [place] # (Auto) 0.48 (0.11-0.59) K/uL Eos # (Auto) 0.53 H (0-0.5) K/uL Baso # (Auto) 0.12 (0-0.2) K/uL Immature Gran # (Auto) 0.09 H (0.00-0.02) K/uL Sodium (136-145) mmol/L Potassium (3.5-5.1) mmol/L Chloride (98-107) mmol/L Carbon Dioxide (21-32) mmol/L Anion Gap (3-11) BUN (6-23) mg/dl Creatinine (0.6-1.2) mg/dl Est Cr Clr Drug Dosing ml/min Est GFR ( Amer) ml/min Est GFR (Non-Af Amer) ml/min BUN/Creatinine Ratio (10-20) Glucose (70-99(Fasting)) mg/dl POC Glucose 105 H 119 H (70-99) mg/dl Calcium (8.5-10.1) mg/dl PG Care Time/CCT Total # of Minutes Spent Total Time Spent with Patient: Total time spent is greater than 50% in coordination of care (as documented) at patient's floor/unit and/or counseling patient: Coding Level of Care Code 55254 Subseq Hosp Care Lvl 2 Diagnoses Dehiscence of wound T81.30XA End-stage renal disease on hemodialysis N18.6; Z99.2 Heart failure with mid-range ejection fraction I50.9 CAD (coronary artery disease) I25.10 Hypertension, uncontrolled I10 Type 2 diabetes mellitus with insulin therapy E11.9; Z79.4 Depression F32.9 Moderate calcific aortic stenosis I35.0 Anemia N18.6; D63.1; Z99.2 Anemia type: due to chronic kidney disease Chronic kidney disease stage: on chronic dialysis (1) Anemia Anemia type: due to chronic kidney disease Chronic kidney disease stage: on chronic dialysis Qualified Code(s): N18.6 - End stage renal disease; D63.1 - Anemia in chronic kidney disease; Z99.2 - Dependence on renal dialysis
[2021-06-17] MEDS: POLYETHYLENE (MIRALAX) 17 GM PACK PO SCH (17:31)
[2021-06-17] MEDS: ATORVASTATIN 40 MG TAB PO SCH (21:50)
[2021-06-17] MEDS: SENNA 8.6 MG TAB PO SCH (21:51)
[2021-06-17] MEDS: INSULIN GLARGINE SOLOSTAR 100 UNITS/ML 3 ML PEN SC SCH (21:52)
[2021-06-18] MEDS: oxyCODONE HCL IR 5 MG TAB (IMMEDIATE RELEASE) PO PRN ×2 (04:49→21:25)
[2021-06-18] MEDS: ACETAMINOPHEN 500 MG TAB PO SCH ×3 (04:49→21:17)
[2021-06-18 06:54] LABS: Iron 36 mcg/dl (35-150); Total Iron Binding Cap Calc 154 mcg/dl (250-450); Transferrin (FE) Percent Satur 23 % (15-50); Unsaturated Iron Binding Cap 118 mcg/dl (155-355)
[2021-06-18 06:59] LABS: Hematocrit (blood only) 27.7 % (37-47)
[2021-06-18 07:19] LABS: Albumin Level 2.8 gm/dl (3.4-5.0); BUN Creatinine Ratio 19.8 (10-20); Calcium 9.3 mg/dl (8.5-10.1); Creatinine Clr Calc Pharmacy 14.3 ml/min; Est GFR (African American) 13.3 ml/min; Est GFR (Non-African American) 11.5 ml/min; Potassium 4.5 mmol/L (3.5-5.1)
[2021-06-18] MEDS: ASPIRIN 81 MG ECTAB PO SCH ×2 (08:20→21:14)
[2021-06-18] MEDS: amLODIPine BESYLATE 5 MG TAB PO SCH ×2 (08:20→21:13)
[2021-06-18] MEDS: ISOSORBIDE MONO EXTENDED REL 60 MG TABCR PO SCH (08:20)
[2021-06-18] MEDS: DOCUSATE SODIUM 100 MG CAP PO SCH ×2 (08:21→21:16)
[2021-06-18] MEDS: MULTIVITAMIN TAB PO SCH (08:21)
[2021-06-18] MEDS: VENLAFAXINE HCL XR 150 MG CAPXR PO SCH (08:21)
[2021-06-18] MEDS: hydrALAZINE TAB 50 MG TAB PO SCH ×3 (08:21→21:16)
[2021-06-18] MEDS: POLYETHYLENE (MIRALAX) 17 GM PACK PO SCH (08:30)
[2021-06-18] MEDS ORDERED: EPOETIN ALFA 10,000 UNITS/ML VIAL IV SCH (09:00)
[2021-06-18] MEDS: INSULIN ASPART PER UNIT SC SCH ×4 (09:09→21:16)
--- NOTE | 2021-06-18 10:19 | Orthopedic Progress Note ---
Date of Service June 18, 2021 Assessment & Plan (1) Dehiscence of wound: We are trying to get her set up to go to a nursing facility. She needs to be careful with this knee for several weeks. I am unable to use the knee immobilizer because of wound breakdowns on her skin. I been a little bit leery of casting her as well due to possibility of wound breakdown. She will be orthopedically stable for discharge when a bed becomes available at a nursing facility. She is on aspirin for DVT prophylaxis. She is currently getting vancomycin with her hemodialysis treatments on Friday and Friday. I would like to see her back in the office shortly after discharge to look over th e wounds. Subjective Sonam was seen and examined at bedside today. Overall she states she is doing fairly well. She denies any much pain in the right knee. She had an episode yesterday when she was standing with therapy she said she felt something tear around the incision of her knee. They did take down the knee splint and bandage and the incision was intact. She was redressed. She is not having much pain today. Review of Systems All systems reviewed & are unremarkable except as noted in HPI & below. Physical Exam On physical examination of the right leg the posterior splint in place. There is a well padded dressing and Marcio wrap. Everything feels loose. She is still having difficult time dorsiflexing her right ankle. She can plantarflex it. Results & Data Results & Data Laboratory Results . Diagnostic Findings . PG Care Time/CCT Total # of Minutes Spent Total Time Spent with Patient: Total time spent is greater than 50% in coordination of care (as documented) at patient's floor/unit and/or counseling patient: Coding Level of Care Code 63399 Post Operative Follow-Up Diagnoses Dehiscence of wound T81.30XA
--- NOTE | 2021-06-18 11:45 | Nephrology Progress Note ---
Date of Service June 18, 2021 Assessment & Plan (1) End-stage renal disease on hemodialysis: (2) Wound dehiscence: Plan: POD #4 s/p I&D and wound closure. Remains on vancomycin dosing coordinated with HD. (3) Anemia: (4) Hypertension: Plan: Improved. Tolerating UF well. Will monitor. Plan: ESRD on HD via AVF MWF. Orders for HD today entered into EHR and reviewed with dialysis nurse. UF goal 2-2.5 L as tolerated. Medications appropriately dosed for kidney dysfunction; Additional 80035 units Epogen provided today. Iron profile acceptable. Admission and Anticipated Discharge Date Admission Date: June 14, 2021 Subjective No acute events overnight. Minerva feels well today. She was seen and evaluated at hemodialysis. BP has improved. AVF functioning well. Review of Systems Review of Systems: All systems reviewed & are unremarkable except as noted in HPI & below Physical Exam Constitutional: WD/WN, vitals as above Eyes: + anicteric sclerae Neck: trachea midline, no thyromegaly Respiratory: normal respiratory effort, lungs clear to auscultation Cardiovascular: Rate/Rhythm: regular rate and regular rhythm Heart Sounds: + murmur (2/6 IWONA at RUSB) Chest (Breasts): Chest: normal inspection of chest Gastrointestinal (Abdomen): normal bowel sounds, soft, nontender, no hepatosplenomegaly Musculoskeletal: Extremities: + extremities abnormal to inspection (RLE in immobilizer with LASHAY wrap), no cyanosis and no clubbing Skin: no rashes, warm and dry Neurologic: moves all extremities and awake; no focal motor deficits Psychiatric: A+Ox3, euthymic affect Lymphatic: no lymphedema Results & Data ([facility]) Vital Signs (Past 12 Hours) Vital Signs Temp Pulse Pulse Resp BP BP Pulse Ox 06/18/21 11:00 75 108/56 L 06/18/21 10:40 71 123/47 L 06/18/21 10:36 36.9 C 73 06/18/21 07:34 36.3 C L 75 16 179/65 H 99 Laboratory Results Laboratory Results - last 24 hr 06/17/21 06/17/21 06/17/21 11:59 17:03 21:51 Hgb Hct Sodium Potassium Chloride Carbon Dioxide Anion Gap BUN Creatinine Est Cr Clr Drug Dosing Est GFR ( Amer) Est GFR (Non-Af Amer) BUN/Creatinine Ratio Glucose POC Glucose 167 H 124 H 203 H Calcium Phosphorus Iron TIBC Unsaturated IBC Transferrin % Sat Ferritin Albumin 06/18/21 06/18/21 06/18/21 06:23 06:23 06:23 Hgb 8.0 L Hct 27.7 L Sodium 136 Potassium 4.5 Chloride 100 Carbon Dioxide 27 Anion Gap 9 BUN 71 H Creatinine 3.59 H D Est Cr Clr Drug Dosing 14.3 Est GFR ( Amer) 13.3 Est GFR (Non-Af Amer) 11.5 BUN/Creatinine Ratio 19.8 Glucose 122 H POC Glucose Calcium 9.3 Phosphorus 4.0 Iron 36 TIBC 154 L Unsaturated IBC 118 L Transferrin % Sat 23 Ferritin 1029.0 H Albumin 2.8 L 06/18/21 08:07 Hgb Hct Sodium Potassium Chloride Carbon Dioxide Anion Gap BUN Creatinine Est Cr Clr Drug Dosing Est GFR ( Amer) Est GFR (Non-Af Amer) BUN/Creatinine Ratio Glucose POC Glucose 129 H Calcium Phosphorus Iron TIBC Unsaturated IBC Transferrin % Sat Ferritin Albumin PG Care Time/CCT Total # of Minutes Spent Total Time Spent with Patient: Total time spent is greater than 50% in coordination of care (as documented) at patient's floor/unit and/or counseling patient: Coding Level of Care Code 82606 Subseq Hosp Care Lvl 3 Diagnoses End-stage renal disease on hemodialysis N18.6; Z99.2 Wound dehiscence T81.30XA Anemia N18.6; D63.1; Z99.2 Anemia type: due to chronic kidney disease Chronic kidney disease stage: on chronic dialysis Hypertension I10 Hypertension type: unspecified (1) Anemia Anemia type: due to chronic kidney disease Chronic kidney disease stage: on chronic dialysis Qualified Code(s): N18.6 - End stage renal disease; D63.1 - Anemia in chronic kidney disease; Z99.2 - Dependence on renal dialysis (2) Hypertension Hypertension type: unspecified Qualified Code(s): I10 - Essential (primary) hypertension
--- NOTE | 2021-06-18 19:15 | Hospitalist Progress Note ---
Date of Service June 18, 2021 Assessment & Plan (1) Dehiscence of wound: Plan: - H/O R patella fracture with ORIF approx. 1 month ago then with revision 2 weeks ago. Now with wound dehiscence - S/P irrigation/debridement with closure on 06/14 - noted per operative report to have rupture of patella tendon - Management per primary service -Maintain posterior knee immobilizer splint -With skin breakdown anteriorly on the right leg that should not have a splint or cast pushing into it -Remains on IV vancomycin to be given on dialysis days-noticed that this was not ordered for today-ordered her usual dose of vancomycin 1250 mg IV for 06/18 -Most recent dose of IV vancomycin was 06/15 and she is to be given vancomycin on dialysis days, last random Vanco level on 06/15 was acceptable at 18 -She will need to remain on IV antibiotics for 4 more weeks for her previous in fected seroma -Needs rehab (2) End-stage renal disease on hemodialysis: Plan: - Follows a MW schedule; Labs are very good with no electrolyte abnormalities - Consult nephrology appreciated Continues on her usual dialysis schedule here (3) CAD (coronary artery disease): Plan: - STABLE; no reports of CP - Continue ASA; Atorvastatin 80 mg HS (4) Hypertension, uncontrolled: Plan: -With some elevated blood pressures over 200 systolic here which is now much improved after her home isosorbide was restarted and she was given IV hydralazine - Continue Amlodipine 5 mg BID and Hydralazine 50 mg TID Continue isosorbide 120 mg p.o. once daily (5) Heart failure with mid-range ejection fraction: Plan: - EF 45%; no signs of decompensation - Medical management as above (6) Type 2 diabetes mellitus with insulin therapy: Plan: - A1c 6.2; Controlled - Glycemic pharmacy on consult - appreciate input (7) Depression: Plan: - STABLE - Continue Venlafaxine 150 mg daily Plan: Dispo-continued stay, awaiting SNF placement Admission and Anticipated Discharge Date Admission Date: June 14, 2021 Subjective Patient seen after she returned from dialysis. Reports had some jolting of her leg when the bed hit the door and traveling to dialysis and has some pain in the knee. Otherwise denies chest pains or shortness of breath, is eating and drinking like normal. Review of Systems Review of Systems: All systems reviewed & are unremarkable except as noted in HPI & below Physical Exam Constitutional: WD/WN, vitals as above Eyes: + anicteric sclerae Neck: trachea midline, no thyromegaly Respiratory: normal respiratory effort, lungs clear to auscultation Cardiovascular: Rate/Rhythm: regular rate and regular rhythm Heart Sounds: + murmur (2/6 IWONA at R[facility]) Chest (Breasts): Chest: normal inspection of chest Gastrointestinal (Abdomen): normal bowel sounds, soft, nontender, no hepatosplenomegaly Musculoskeletal: Extremities: + extremities abnormal to inspection (RLE in immobilizer with LASHAY wrap), no cyanosis and no clubbing Skin: no rashes, warm and dry Neurologic: moves all extremities, + focal motor deficit (having 3/5 strength Rt ankle dorsiflexion) and awake Psychiatric: A+Ox3, euthymic affect Lymphatic: no lymphedema Results & Data Results & Data ([facility]) Vital Signs (Past 12 Hours) Vital Signs Temp Pulse Pulse Resp BP BP Pulse Ox 06/18/21 14:46 36.4 C L 94 H 18 129/65 99 06/18/21 14:26 36.4 C L 93 H 142/59 H 06/18/21 14:00 91 H 108/52 L 06/18/21 13:40 91 H 103/54 L 06/18/21 13:20 89 104/53 L 06/18/21 13:00 85 101/54 L 06/18/21 12:40 84 97/50 L 06/18/21 12:20 81 124/54 L 06/18/21 12:00 80 113/52 L 06/18/21 11:40 79 109/55 L 06/18/21 11:20 77 100/52 L 06/18/21 11:00 75 108/56 L 06/18/21 10:40 71 123/47 L 06/18/21 10:36 36.9 C 73 06/18/21 07:34 36.3 C L 75 16 179/65 H 99 Laboratory Results 06/18/21 06/18/21 06/18/21 Range/Units 17:02 14:44 08:07 Hgb (12.0-16.0) g/dL Hct (37-47) % Sodium (136-145) mmol/L Potassium (3.5-5.1) mmol/L Chloride (98-107) mmol/L Carbon Dioxide (21-32) mmol/L Anion Gap (3-11) BUN (6-23) mg/dl Creatinine (0.6-1.2) mg/dl Est Cr Clr Drug Dosing ml/min Est GFR ( Amer) ml/min Est GFR (Non-Af Amer) ml/min BUN/Creatinine Ratio (10-20) Glucose (70-99(Fasting)) mg/dl POC Glucose 179 H 124 H 129 H (70-99) mg/dl Calcium (8.5-10.1) mg/dl Phosphorus (2.5-4.9) mg/dl Iron (35-150) mcg/dl TIBC (250-450) mcg/dl Unsaturated IBC (155-355) mcg/dl Transferrin % Sat (15-50) % Ferritin (8-388) ng/ml Albumin (3.4-5.0) gm/dl 06/18/21 06/18/21 06/18/21 Range/Units 06:23 06:23 06:23 Hgb 8.0 L (12.0-16.0) g/dL Hct 27.7 L (37-47) % Sodium 136 (136-145) mmol/L Potassium 4.5 (3.5-5.1) mmol/L Chloride 100 (98-107) mmol/L Carbon Dioxide 27 (21-32) mmol/L Anion Gap 9 (3-11) BUN 71 H (6-23) mg/dl Creatinine 3.59 H D (0.6-1.2) mg/dl Est Cr Clr Drug Dosing 14.3 ml/min Est GFR ( Amer) 13.3 ml/min Est GFR (Non-Af Amer) 11.5 ml/min BUN/Creatinine Ratio 19.8 (10-20) Glucose 122 H (70-99(Fasting)) mg/dl POC Glucose (70-99) mg/dl Calcium 9.3 (8.5-10.1) mg/dl Phosphorus 4.0 (2.5-4.9) mg/dl Iron 36 (35-150) mcg/dl TIBC 154 L (250-450) mcg/dl Unsaturated IBC 118 L (155-355) mcg/dl Transferrin % Sat 23 (15-50) % Ferritin 1029.0 H (8-388) ng/ml Albumin 2.8 L (3.4-5.0) gm/dl 06/17/21 Range/Units 21:51 Hgb (12.0-16.0) g/dL Hct (37-47) % Sodium (136-145) mmol/L Potassium (3.5-5.1) mmol/L Chloride (98-107) mmol/L Carbon Dioxide (21-32) mmol/L Anion Gap (3-11) BUN (6-23) mg/dl Creatinine (0.6-1.2) mg/dl Est Cr Clr Drug Dosing ml/min Est GFR ( Amer) ml/min Est GFR (Non-Af Amer) ml/min BUN/Creatinine Ratio (10-20) Glucose (70-99(Fasting)) mg/dl POC Glucose 203 H (70-99) mg/dl Calcium (8.5-10.1) mg/dl Phosphorus (2.5-4.9) mg/dl Iron (35-150) mcg/dl TIBC (250-450) mcg/dl Unsaturated IBC (155-355) mcg/dl Transferrin % Sat (15-50) % Ferritin (8-388) ng/ml Albumin (3.4-5.0) gm/dl PG Care Time/CCT Total # of Minutes Spent Total Time Spent with Patient: Total time spent is greater than 50% in coordination of care (as documented) at patient's floor/unit and/or counseling patient: Coding Level of Care Code 37539 Subseq Hosp Care Lvl 2 Diagnoses Dehiscence of wound T81.30XA End-stage renal disease on hemodialysis N18.6; Z99.2 CAD (coronary artery disease) I25.10 Hypertension, uncontrolled I10 Heart failure with mid-range ejection fraction I50.9 Type 2 diabetes mellitus with insulin therapy E11.9; Z79.4 Depression F32.9
[2021-06-18] MEDS ORDERED: VANCOMYCIN CONSULT ACTIVE PRN (19:16)
[2021-06-18] MEDS ORDERED: VANCOMYCIN HCL 1,250 MG in SODIUM CHLORIDE 0.9% 250 ML IV STA (19:24)
[2021-06-18] MEDS: INSULIN GLARGINE SOLOSTAR 100 UNITS/ML 3 ML PEN SC SCH (21:13)
[2021-06-18] MEDS: ATORVASTATIN 40 MG TAB PO SCH (21:15)
[2021-06-18] MEDS: SENNA 8.6 MG TAB PO SCH (21:16)
--- NOTE | 2021-06-19 06:35 | Orthopedic Progress Note ---
Date of Service June 19, 2021 Assessment & Plan (1) Dehiscence of wound: She continues to do about as well as expected. She can be weightbearing as tolerated but I do not want any motion of the right knee or any quad activation. She is on aspirin for DVT prophylaxis. She is getting vancomycin through her hemodialysis treatments on Friday and Friday. She is orthopedically stable for discharge to a rehab facility. I do want to see her in the office in a week for a wound check and splint change. Jason Masters was seen and examined at bedside this morning. Overall she is doing fairly well. She denies any too much pain in the right leg. She is still working with physical therapy and awaiting placement at a nursing facility at this point. Review of Systems All systems reviewed & are unremarkable except as noted in HPI & below. Physical Exam Physical examination the right leg, the dressing and posterior splint are intact. She still has difficulty doing dorsiflexion of her right ankle. Results & Data Results & Data Laboratory Results . Diagnostic Findings . PG Care Time/CCT Total # of Minutes Spent Total Time Spent with Patient: Total time spent is greater than 50% in coordination of care (as documented) at patient's floor/unit and/or counseling patient: Coding Level of Care Code 34868 Post Operative Follow-Up Diagnoses Dehiscence of wound T81.30XA
[2021-06-19] MEDS: ACETAMINOPHEN 500 MG TAB PO SCH ×2 (07:05→14:12)
[2021-06-19 07:58] LABS: Basophils # (auto) 0.16 K/uL (0-0.2); Basophils % (auto) 2.5 %; Eosinophils # (auto) 0.36 K/uL (0-0.5); Eosinophils % (auto) 5.5 %; Hematocrit (blood only) 29.5 % (37-47); Hemoglobin 8.5 g/dL (12.0-16.0); Immature Granulocytes # (auto) 0.08 K/uL (0.00-0.02); Immature Granulocytes % (auto) 1.2 %; Lymphocytes # (auto) 1.34 K/uL (1.2-3.4); Lymphocytes % (auto) 20.6 %; Mean Corpuscular Hemoglobin 28.2 pg (25-34); Mean Corpuscular Hgb Conc 28.8 g/dL (32-36); Mean Platelet Volume 9.1 fL (7.4-10.4); Monocytes # (auto) 0.69 K/uL (0.11-0.59); Monocytes % (auto) 10.6 %; Neutrophils # (auto) 3.87 K/uL (1.4-6.5); Neutrophils % (auto) 59.6 %; Platelet Count 283 K/uL (130-400); RDW Coefficient of Variation 18.8 % (11.5-14.5); RDW Standard Deviation 66.3 fL (36.4-46.3); Red Blood Count 3.01 M/uL (4.2-5.4)
--- NOTE | 2021-06-19 08:22 | Pharmacy Report ---
Pharmacy Vanc AUC Short Note - Date of Service June 19, 2021 - Assessment & Plan Assessment 80 year old F admitted for dehiscence of wound. History of infected seroma R knee, underwent surgery/hardware placement. Discharged end of last month on 6 weeks of IV vancomycin for enterococcus - vancomycin given after dialysis days (MWF). Plan Vancomycin * Patient received HD yesterday, therefore vancomycin 1250 mg x 1 given after dialysis yesterday evening. * Will continue to obtain random levels before dialysis to assist with vancomycin dosing. * Reasonable to continue with same vancomycin plan as discussed on discharge last admission. Obtain random vancomycin levels prior to HD session. If random vanco level <18 mcg/ml, okay to dose with vancomcyin 1250 mg x 1 post dialysis session. If random vanco level >18 likely okay to hold vancomycin dose and re- draw prior to next HD session Pharmacy will continue to follow and will adjust dose/frequency as necessary. Thank you.
[2021-06-19 08:32] LABS: BUN Creatinine Ratio 20.1 (10-20); Calcium 9.2 mg/dl (8.5-10.1); Creatinine Clr Calc Pharmacy 21.8 ml/min; Est GFR (African American) 22.9 ml/min; Est GFR (Non-African American) 19.8 ml/min; Potassium 4.4 mmol/L (3.5-5.1)
[2021-06-19] MEDS: POLYETHYLENE (MIRALAX) 17 GM PACK PO SCH (08:54)
[2021-06-19] MEDS: amLODIPine BESYLATE 5 MG TAB PO SCH (08:54)
[2021-06-19] MEDS: MULTIVITAMIN TAB PO SCH (08:54)
[2021-06-19] MEDS: VENLAFAXINE HCL XR 150 MG CAPXR PO SCH (08:55)
[2021-06-19] MEDS: ASPIRIN 81 MG ECTAB PO SCH (08:55)
[2021-06-19] MEDS: hydrALAZINE TAB 50 MG TAB PO SCH ×2 (08:55→14:56)
[2021-06-19] MEDS: ISOSORBIDE MONO EXTENDED REL 60 MG TABCR PO SCH (08:55)
[2021-06-19] MEDS: DOCUSATE SODIUM 100 MG CAP PO SCH (08:55)
[2021-06-19] MEDS: INSULIN ASPART PER UNIT SC SCH ×2 (08:57→12:51)
--- NOTE | 2021-06-19 09:48 | Nephrology Progress Note ---
Date of Service June 19, 2021 Assessment & Plan (1) End-stage renal disease on hemodialysis: (2) Wound dehiscence: Plan: POD #5 s/p I&D and wound closure. Remains on vancomycin dosing coordinated with HD. (3) Anemia: Plan: Stable. Additional 58626 units Epogen provided with HD yesterday. Iron profile acceptable. (4) Hypertension: Plan: Improved. Tolerating UF well. Will monitor. Plan: ESRD on HD via AVF MWF. Tolerating HD well. Clearances acceptable. Volume status controlled. Next anticipated HD tomorrow. Medications appropriately dosed for kidney dysfunction; Admission and Anticipated Discharge Date Admission Date: June 14, 2021 Subjective No acute events overnight. Minerva feels well this AM. HD completed yesterday without complications. Net UF 2.5 L. She denies significant pain. Review of Systems Review of Systems: All systems reviewed & are unremarkable except as noted in HPI & below Physical Exam Constitutional: + physical limitations; no acute distress Eyes: + anicteric sclerae; no corneal abnormality ENMT: Mouth: + dry oral mucous membranes; no oral mucosal abnormality Neck: normal visual inspection and trachea midline Respiratory: normal respiratory effort, lungs clear to auscultation Cardiovascular: Rate/Rhythm: regular rate and regular rhythm Heart Sounds: + murmur Gastrointestinal (Abdomen): Inspection/Auscultation: abdomen normal to inspection; abdomen not distended Percussion/Palpation: abdomen soft; abdomen nontender Musculoskeletal: Extremities: + extremities abnormal to inspection (RLE in immobilizer with LASHAY wrap), no cyanosis and no clubbing Skin: no rashes, warm and dry + turgor decreased Neurologic: moves all extremities and awake; no focal motor deficits Psychiatric: A+Ox3, euthymic affect Results & Data ([facility]) Vital Signs (Past 12 Hours) Vital Signs Temp Pulse Resp BP Pulse Ox 06/19/21 07:00 36.8 C 79 16 182/64 H 97 Laboratory Results Laboratory Results - last 24 hr 06/18/21 06/18/21 06/18/21 14:44 17:02 21:12 WBC RBC Hgb Hct MCV MCH MCHC RDW Std Deviation RDW Coeff of Chris Plt Count MPV Immature Gran % (Auto) Neut % (Auto) Lymph % (Auto) Owsley % (Auto) Eos % (Auto) Baso % (Auto) Neut # (Auto) Lymph # (Auto) Owsley # (Auto) Eos # (Auto) Baso # (Auto) Immature Gran # (Auto) Sodium Potassium Chloride Carbon Dioxide Anion Gap BUN Creatinine Est Cr Clr Drug Dosing Est GFR ( Amer) Est GFR (Non-Af Amer) BUN/Creatinine Ratio Glucose POC Glucose 124 H 179 H 85 Calcium 06/19/21 06/19/21 06/19/21 07:32 07:32 08:04 WBC 6.50 RBC 3.01 L Hgb 8.5 L Hct 29.5 L MCV 98.0 MCH 28.2 MCHC 28.8 L RDW Std Deviation 66.3 H RDW Coeff of Chris 18.8 H Plt Count 283 MPV 9.1 Immature Gran % (Auto) 1.2 Neut % (Auto) 59.6 Lymph % (Auto) 20.6 Owsley % (Auto) 10.6 Eos % (Auto) 5.5 Baso % (Auto) 2.5 Neut # (Auto) 3.87 Lymph # (Auto) 1.34 Owsley # (Auto) 0.69 H Eos # (Auto) 0.36 Baso # (Auto) 0.16 Immature Gran # (Auto) 0.08 H Sodium 135 L Potassium 4.4 Chloride 102 Carbon Dioxide 26 Anion Gap 7 BUN 46 H D Creatinine 2.29 H D Est Cr Clr Drug Dosing 21.8 Est GFR ( Amer) 22.9 Est GFR (Non-Af Amer) 19.8 BUN/Creatinine Ratio 20.1 H Glucose 124 H POC Glucose 125 H Calcium 9.2 PG Care Time/CCT Total # of Minutes Spent Total Time Spent with Patient: Total time spent is greater than 50% in coordination of care (as documented) at patient's floor/unit and/or counseling patient: Coding Level of Care Code 74372 Subseq Hosp Care Lvl 3 Diagnoses End-stage renal disease on hemodialysis N18.6; Z99.2 Wound dehiscence T81.30XA Anemia N18.6; D63.1; Z99.2 Anemia type: due to chronic kidney disease Chronic kidney disease stage: on chronic dialysis Hypertension I10 Hypertension type: unspecified (1) Anemia Anemia type: due to chronic kidney disease Chronic kidney disease stage: on chronic dialysis Qualified Code(s): N18.6 - End stage renal disease; D63.1 - Anemia in chronic kidney disease; Z99.2 - Dependence on renal dialysis (2) Hypertension Hypertension type: unspecified Qualified Code(s): I10 - Essential (primary) hypertension
--- NOTE | 2021-06-19 12:17 | Hospitalist Progress Note ---
Date of Service June 19, 2021 Assessment & Plan (1) Dehiscence of wound: Plan: - H/O R patella fracture with ORIF approx. 1 month ago then with revision 2 weeks ago. Now with wound dehiscence - S/P irrigation/debridement with closure on 06/14 - noted per operative report to have rupture of patella tendon - Management per primary service -Maintain posterior knee immobilizer splint -With skin breakdown anteriorly on the right leg that should not have a splint or cast pushing into it -Remains on IV vancomycin to be given on dialysis days-received 2 doses of IV vancomycin with the last being on 06/18 in the hospital -She will need to remain on IV antibiotics for 4 more weeks for her previous infected seroma -Check random Vanco levels with dialysis and give dose of vancomycin 1250 mg IV if random level less than 18 -Needs rehab placement-hopefully today (2) End-stage renal disease on hemodialysis: Plan: - Follows a MWF schedule; Labs are very good with no electrolyte abnormalities - Consult nephrology appreciated Continues on her usual dialysis schedule here (3) CAD (coronary artery disease): Plan: - STABLE; no reports of CP - Continue ASA; Atorvastatin 80 mg HS (4) Hypertension, uncontrolled: Plan: -With some elevated blood pressures over 200 systolic here which is now much improved after her home isosorbide was restarted and she was given IV hy dralazine - Continue Amlodipine 5 mg BID and Hydralazine 50 mg TID Continue isosorbide 120 mg p.o. once daily (5) Heart failure with mid-range ejection fraction: Plan: - EF 45%; no signs of decompensation - Medical management as above (6) Type 2 diabetes mellitus with insulin therapy: Plan: - A1c 6.2; Controlled - Glycemic pharmacy on consult - appreciate input (7) Depression: Plan: - STABLE - Continue Venlafaxine 150 mg daily Plan: Dispo-insurance authorization approved for SNF for today-discharge to SNF Hospital service will sign off Admission and Anticipated Discharge Date Admission Date: June 14, 2021 Subjective Patient feeling well today, has no complaints, no chest pain or shortness of breath, no nausea or abdominal pain. No pain in the right knee at all. She is eating and drinking and anxious to get out of the hospital to rehab Review of Systems Review of Systems: All systems reviewed & are unremarkable except as noted in HPI & below Physical Exam Constitutional: WD/WN, vitals as above Eyes: + anicteric sclerae Neck: trachea midline, no thyromegaly Respiratory: normal respiratory effort, lungs clear to auscultation Cardiovascular: Rate/Rhythm: regular rate and regular rhythm Heart Sounds: + murmur (2/6 IWONA at R[facility]) Chest (Breasts): Chest: normal inspection of chest Gastrointestinal (Abdomen): normal bowel sounds, soft, nontender, no hepatosplenomegaly Musculoskeletal: Extremities: + extremities abnormal to inspection (RLE in immobilizer with LASHAY wrap), no cyanosis and no clubbing Skin: no rashes, warm and dry Neurologic: moves all extremities, + focal motor deficit (having 3/5 strength Rt ankle dorsiflexion) and awake Psychiatric: A+Ox3, euthymic affect Lymphatic: no lymphedema Results & Data Results & Data ([facility]) Vital Signs (Past 12 Hours) Vital Signs Temp Pulse Resp BP Pulse Ox 06/19/21 11:38 90 16 159/67 H 93 06/19/21 09:54 16 91 06/19/21 07:00 36.8 C 79 16 182/64 H 97 Laboratory Results 06/19/21 07:32 06/19/21 07:32 PG Care Time/CCT Total # of Minutes Spent Total Time Spent with Patient: Total time spent is greater than 50% in coordination of care (as documented) at patient's floor/unit and/or counseling patient: Coding Level of Care Code 13940 Subseq Hosp Care Lvl 1 Diagnoses Dehiscence of wound T81.30XA End-stage renal disease on hemodialysis N18.6; Z99.2 CAD (coronary artery disease) I25.10 Hypertension, uncontrolled I10 Heart failure with mid-range ejection fraction I50.9 Type 2 diabetes mellitus with insulin therapy E11.9; Z79.4 Depression F32.9
--- NOTE | 2021-06-28 15:01 | Discharge Summary ---
Date of Service June 28, 2021 Admission HPI (Per Admitting) Sonam is a pleasant 80-year-old female who initially underwent an ORIF of her right patella 4 weeks ago. Unfortunately she failed the fixation and underwent a revision ORIF 2 weeks ago. She also had an irrigation debridement at that time. She has been on IV vancomycin and continued dialysis treatments. I saw her in the office 2 days ago and removed her sutures at the 2-week mae. The wound actually looked good. She was placed back in the knee immobilizer. The home health nurse came to her house today and when she removed the knee immobilizer she found that the wound had completely dehisced. She came immediately to the emergency room and is being taken directly to the operating room for irrigation debridement and closure of the right knee wound dehiscence. . Admission Exam (Per Admitting) On physical examination, the entire incision has opened back up. The hardware is exposed. There is little bit of serous drainage but no signs of gross infection. . Principal Diagnosis Same as "Discharge Diagnosis" noted below under Discharge Instructions. Discharge Exam Physical examination the right leg, the dressing and posterior splint are intact. She still has difficulty doing dorsiflexion of her right ankle. Discharge Data Consultations 06/14/21 11:25 ED Decision to Admit Stat 06/14/21 15:51 Consult Hospitalist Routine 06/14/21 16:23 Consult Nephrology Routine Procedures Performed Operation Date: 06/14/21 12:15 Actual Procedures p Right Knee Incision and Drainage, Wound Closure (Right) - Heriberto Ly DO Hospital Course (1) Dehiscence of wound: On June 14, 2021 Sonam Arrived at [facility] with a dehisced wound on her right knee. She came to the emergency room and was taken directly to the operating room. She underwent an irrigation debridement of the right knee with the patella tendon repair and a wound closure. She tolerated the procedure well. Postoperatively she was placed in a posterior knee splint. She was then transferred to the general orthopedic floors. Her hospital course was relatively uneventful. On postop day #1 she was able to get dialysis and was receiving vancomycin with her dialysis. She was on aspirin for DVT prophylaxis. She was able to participate with physical therapy. On postop day #2 she continued to do fairly well. She was not having too much pain. The dressing was changed. The determination was made that she needed placement in a rehab facility. On postop day #3 she continued to participate well with physical therapy. She was not having much pain in the knee. On postop day #4 she was continued the hemodialysis and the IV vancomycin. She was awaiting placement at a rehab facility. On postop day #5 she continued to do well. She was then discharged to rehab facility. She will follow-up with orthopedics in 2 weeks. PG Care Time/CCT Total # of Minutes Spent Total Time Spent with Patient: Total time spent is greater than 50% in coordination of care (as documented) at patient's floor/unit and/or counseling patient: Discharge Plan Discharge Items Patient Disposition: Transfer Detention Fac Reason For Visit: POST SURGICAL CARE Discharge Diagnosis: Right knee patella fracture Activity: As commented below Non-emergency contact: Surgeon Call non-emergency contact if: your wound has increased redness and your wound has increased drainage Follow-up/Referrals: David Lopez III, CRNP [Primary Care Provider] - Diet: Carb Consistent or DM2 Addtl Attending Provider Instructions: ORTHOPEDIC INSTRUCTIONS Activity Recommendations: Remain in posterior splint at all times. No bending of the right knee. I am unable to do so knee immobilizer due to skin breakdown around the straps. Weightbearing as tolerated but no straight leg raises or quad activation. Medications: Aspirin 81 mg twice a day for 6 weeks for DVT prophylaxis Vancomycin every Friday, Friday, and Friday with hemodialysis treatment Dressing Care: You may change the dressing if necessary but she needs to be in a soft dressing with a posterior splint at all times. Showering: No showering until follow-up in the office. Follow-Up Visit: Follow-up with Dr. Ly's PA in 1 week for evaluation of the wounds and splints Please call to set up an appointment for a time that works for you Pending Studies at Discharge: No Stand-Alone Forms: My [employer], Smoking Cessation Skilled Items Patient informed of condition?: Yes DNR: No Discharge Level of Care: Skilled Communicable Disease: No Discharge Prognosis: Stable Lines: None Urinary Catheter: No Medications and DC Order Prescriptions: Continued polyethylene glycol 3350 17 gram/dose powder 17 gm PO DAILY PRN (Reason: Constipation) RF: 0 venlafaxine 150 mg capsule,extended release 24hr 150 mg PO QAM RF: 0 ascorbic acid (vitamin C) 500 mg tablet 500 mg PO QAM RF: 0 isosorbide mononitrate 120 mg tablet extended release 24 hr 120 mg PO QAM Qty: 90 RF: 3 amlodipine 5 mg tablet 5 mg PO BID Qty: 180 RF: 3 tramadol 50 mg tablet 50 mg PO Q6H PRN (Reason: pain) Qty: 60 RF: 0 cholecalciferol (vitamin D3) 25 mcg (1,000 unit) capsule 50 mcg PO BID RF: 0 Lantus Solostar U-100 Insulin 100 unit/mL (3 mL) insulin pen 23 unit subcut QPM RF: 0 (DME) FreeStyle Flash 2 Sensor Kit See Rx Instructions .Route RF: 0 (DME) FreeStyle Flash 2 Hildreth Misc See Rx Instructions .Route RF: 0 atorvastatin 80 mg tablet 80 mg PO HS Qty: 90 RF: 3 Calcium 600 with Vitamin D3 600 mg(1,500mg) -400 unit Tablet,Chewable 2 tab PO QAM RF: 0 hydralazine 50 mg Tablet 50 mg PO TID Qty: 90 RF: 0 multivitamin Capsule 1 cap PO DAILY RF: 0 aspirin [Adult Aspirin Regimen] 81 mg tablet,delayed release (DR/EC) 81 mg PO BID Qty: 84 RF: 0 vancomycin 1.25 gram recon soln See Rx Instructions .ROUTE .COMPLEX 42 Days Qty: 6 RF: 0 PreserVision AREDS [id number] ghnf-yn-ilrd Capsule 1 cap PO BID RF: 0 No Action insulin aspart U-100 [Novolog Flexpen U-100 Insulin] 100 unit/mL (3 mL) insulin pen 7 unit subcut TIDM Qty: 30 RF: 3 Discharge Orders: Discharge Order (Routine); Ordered 06/19/21 Ordered By: Heriberto Ly Admission Data Admit Date/Time: 06/14/21 14:37 Attending Provider: Heriberto Ly Admit Provider: Heriberto Ly Primary Care Provider: David Lopez III Other Providers: Heriberto Ly ; Torri Yates ; Aamir Martell ; Nimesh Demarco ; Mark Eubanks ; Kunal Tabor V. ; Aissatou Mcnair ; Miguel Angel Gaitan ; Davon Faith ; Yosi Randall ; Rick Tejeda ; Juno Deluca ; Isai Argueta ; Edel Ibrahim ; Akila Ascencio ; Marcia Sy ; Jefferson Martin ; Ivelisse Elias ; Sandy Roque ; Jennifer Fuller ; Adam Ramos ; Jose Vivas ; Arianna Lentz ; Arlette Burton ; Cristian Royal ; Aissatou Howard ; Ned Coyne ; Alejo Benavides ; Luis Heath ; Miguel Angel Kennedy ; Heriberto Boateng ; Johanny Haskins ; Janett Babb ; Jose Anaya ; Ivelisse Ford ; Bean Marcum ; Ben Puckett ; Drake Jiménez SZack ; Rajan Worrell ; Gian Manzanares S. ; Melinda Shipman Other Interventions: Discharge Summary Assessment (RN) Last Done: 06/19/21 15:06
== END 2021-06-19 16:20 | DRG 907 ==
LOC: ED 11:08 → OR 12:30 → 3E 14:37

== ENCOUNTER 2021-07-06 17:43 | Inpatient (IN) ==
[2021-07-06 19:00] LABS: Hematocrit (blood only) 30.3 % (37-47); Hemoglobin 8.9 g/dL (12.0-16.0); Mean Corpuscular Hemoglobin 27.5 pg (25-34); Mean Corpuscular Hgb Conc 29.4 g/dL (32-36); Mean Corpuscular Volume 93.5 fL (80-100); Mean Platelet Volume 9.4 fL (7.4-10.4); Platelet Count 234 K/uL (130-400); RDW Coefficient of Variation 16.4 % (11.5-14.5); RDW Standard Deviation 56.8 fL (36.4-46.3); Red Blood Count 3.24 M/uL (4.2-5.4); White Blood Count 9.67 K/uL (4.8-10.8)
--- NOTE | 2021-07-06 19:09 | XRay Report ---
XR chest 1V portable HISTORY: Fever COMPARISON: Chest 02/15/2021. FINDINGS: No pneumothorax. Small to moderate bilateral pleural effusions have increased in size. Biba silar densities are also noted. The heart is enlarged. There is diffuse interstitial/vascular thicken ing consistent with mild pulmonary edema. Degenerative changes noted within the shoulders. IMPRESSION: 1. Cardiomegaly, pulmonary edema, and bilateral pleural effusions. This has progressed in the interva l. 2. Bibasilar densities are nonspecific but favor atelectasis from the pleural effusions. A pneumonia could also have a similar appearance. ACT 112: Negative or not required by law. Electronically signed by: Carlito Eugene M.D. 07/06/2021 7:08 PM
[2021-07-06 19:19] LABS: Alanine Aminotransferase 11 U/L (7-52); Albumin Globulin Ratio 0.9 (0.9-2); Albumin Level 3.1 gm/dl (3.4-5.0); Alkaline Phosphatase 104 U/L (34-104); Anion Gap 7 (3-11); Aspartate Aminotransferase 21 U/L (13-39); BUN Creatinine Ratio 13.2 (10-20); Bilirubin,Total 0.3 mg/dl (0.2-1.0); Blood Urea Nitrogen 22 mg/dl (6-23); Calcium 9.2 mg/dl (8.5-10.1); Carbon Dioxide 31 mmol/L (21-32); Chloride 99 mmol/L (98-107); Est GFR (African American) 33.6 ml/min; Globulin 3.6 gm/dl (2.5-4.0); Glucose 167 mg/dl (70-99(Fasting)); Sodium 137 mmol/L (136-145); Total Protein 6.7 gm/dl (6.0-8.3)
--- NOTE | 2021-07-06 19:21 | Emergency Department Note ---
History of Present Illness General Chief complaint: Knee Injury/Pain Stated complaint: FEVER, KNEE PAIN, DR REFERRED FOR BLOOD TESTING Time Seen by Provider: 07/06/21 19:08 Source: patient and family (Daughter who was at the bedside) Mode of arrival: ambulatory Limitations: no limitations History of Present Illness This patient is 80-year-old female has history of end-stage renal disease, comes in referred by her doctor for concern for right knee infection. She had a significant right knee injury where she fractured it and she has had several surgeries the last one was done on June [address] Ly she is wearing a bivalved cast. She is receiving IV antibiotics with dialysis. Looks like she has been receiving vancomycin she did receive dialysis in the vancomycin today. During her time of dialysis she developed rigors and fevers and did not feel well she vomited once. She had no fall or trauma since then. No shortness of breath she has had occasional cough. She felt feverish. In the assisted afterwards her temperature ranged from 99-103. Her knee culture did grow out Enterococcus. There has been a Covid outbreak at the assisted however Covid testing has been negative Home Medications Medication Instructions Recorded Confirmed Type ascorbic acid (vitamin C) 500 mg 500 mg PO QAM tab 12/10/18 07/06/21 History tablet polyethylene glycol 3350 17 17 gm PO DAILY PRN gm 12/10/18 07/06/21 History gram/dose oral powder venlafaxine 150 mg 150 mg PO QAM cap 12/10/18 07/06/21 History capsule,extended release 24 hr calcium carbonate 600 mg-vitamin 2 tab PO QAM 03/09/20 07/06/21 History D3 10 mcg (400 unit) chewable tablet (Calcium 600 with Vitamin D3) isosorbide mononitrate 120 mg 120 mg PO QAM #90 tab 10/25/20 07/06/21 Rx tablet,extended release 24 hr amlodipine 5 mg tablet 5 mg PO BID #180 tab 11/23/20 07/06/21 Rx cholecalciferol (vitamin D3) 25 50 mcg PO BID cap 12/27/20 07/06/21 History mcg (1,000 unit) capsule hydralazine 50 mg tablet 50 mg PO TID #90 tab 02/28/21 07/06/21 Rx insulin glargine 100 unit/mL (3 23 unit SUBCUT QPM ml 05/10/21 07/06/21 History mL) subcutaneous pen (Lantus Solostar U-100 Insulin) multivitamin 1 cap PO DAILY 05/18/21 07/06/21 History atorvastatin 80 mg tablet 80 mg PO HS #90 tab 05/29/21 07/06/21 Rx aspirin 81 mg tablet,delayed 81 mg PO BID #84 tab 06/03/21 07/06/21 Rx release (Adult Aspirin Regimen) vancomycin 1.25 gram intravenous See Rx Instructions .ROUTE 06/03/21 07/06/21 Rx solution .COMPLEX 42 Days #6 vial tramadol 50 mg tablet 50 mg PO Q6H PRN #60 tab 06/04/21 07/06/21 Rx vitamins A,C,E-mvsy-qbydeq 14,320 1 cap PO BID 06/14/21 07/06/21 History unit-226 mg-200 unit capsule (PreserVision AREDS) insulin aspart U-100 100 unit/mL 7 unit SUBCUT TIDM #30 ml 06/22/21 07/06/21 Rx (3 mL) subcutaneous pen (Novolog Flexpen U-100 Insulin aspart) Allergies Allergy/AdvReac Type Severity Reaction Status Date / Time codeine AdvReac Mild DOES NOT Verified 07/06/21 20:37 LIKE THE WAY IT MAKES HER FEEL. Past Med/Surg History Medical History Anemia AV fistula LEFT CAD (coronary artery disease) Carotid artery disease less than 50% ICA stenosis per 08/2016 carotid duplex CHF (congestive heart failure) Chronic gastroesophageal reflux disease Chronic kidney disease on HD Depression Diabetic peripheral neuropathy associated with type 2 diabetes mellitus Dialysis patient 3XWK (M/W/F) [facility]>FOLLOWED BY DR. HATHAWAY Dyslipidemia Gallstones Generalized osteoarthritis of multiple sites Graves disease H/O malignant neoplasm of uterine body Hiatal hernia History of kidney stones Hypertension Irregular heart beat metoprolol for this per pt Macular degeneration Moderate calcific aortic stenosis Multinodular goiter (nontoxic) Multiple thyroid nodules Obesity Osteopenia Secondary hyperparathyroidism Sleep apnea No device Type 2 diabetes mellitus with insulin therapy Surgical History H/O abdominoplasty H/O basal cell carcinoma excision H/O shoulder surgery Right History of appendectomy History of cataract surgery R/L History of colonoscopy History of esophagogastroduodenoscopy (EGD) History of hip surgery Closed intertrochanteric fracture of left femur 04/10/2021: 02/16/2021: Grade 4 view, MAC#3, ETT#7.0. No issues per anesthesia postop progress note. History of open reduction and internal fixation (ORIF) procedure right patella 05/18/2021: LMA#4 atraumatic + PNB. No issues per anesthesia postop progress note. History of tonsillectomy History of tooth extraction S/P complete hysterectomy Status post knee surgery 05/31/21 Dr. Heriberto Ly- Incision and Debridement Right Knee, Right Open Reduction Internal Fixation Patella, Hardware Removal(Right) Family History Father Diabetes Lung cancer Family history of diabetes mellitus Mother , in a home fire Hypertension Family history of diabetes mellitus Daughter Family history of diabetes mellitus Son Family history of diabetes mellitus Other No family history of adverse response to anesthesia Denies family history of Ovarian cancer Prostate cancer Myocardial infarction Breast cancer Colorectal cancer Social History Smoking Status: Former smoker Tobacco Type: Cigarettes Second Hand Exposure: No; Hx Alcohol Use: Yes Alcohol type: wine Hx Substance Use: No Preferred Language: [place] Communication Ability: Effective Visual Impairment: No Limitations Hearing Ability: Normal Combine Driver Required: No Beliefs That Will Affect Care: None marital status: / Current Living Situation: Family Current Living Situation Comment: Son and Daughter in Law current occupational status: retired Feels Safe at Home: Yes Safety Concerns Comment: unsteady at times Childhood Exposure to Second-Hand Smoke: Yes Dental Care, Regularly: No Physical Activity Frequency: Does not Exercise Seatbelt Use: always Sunscreen Use: No Assistive Devices: Walker Review of Systems A total of 10 systems reviewed and were otherwise negative Physical Exam Vital Signs Vital Signs - 24 hr 07/06/21 17:57 07/06/21 19:48 07/06/21 20:55 Temperature 36.7 C Temperature Source Temporal Artery Scan Pulse Rate 99 H 95 H Pulse Rate [Finger] 100 H Respiratory Rate 16 19 18 Respiratory Effort / Characteristics Non-Labored Spontaneous Respiratory Depth Normal Respiratory Pattern Regular Blood Pressure 113/58 L Blood Pressure [Left Arm] 147/71 H Blood Pressure Mean 76 Blood Pressure Mean [Left Arm] 96 Blood Pressure Position Sitting Pulse Oximetry 91 91 90 Oxygen Delivery Method Room Air Room Air Room Air Sepsis Recent Fever Within 48 Hours Yes Sepsis New/Unexplained Change in Mental Status No Sepsis Action Taken by Nursing No Action Required General: Well developed well nourished chronically ill-appearing older female older female who appears in no acute distress, breathing comfortably on room air. Normal speech HEENT: Normal cephalic atraumatic. Pupils are equal round and reactive to light. Extraocular movements are intact. Oropharynx is pink with moist mucous membranes. No swelling of the mouth lips or tongue. Neck: Supple with a midline trachea. No meningeal signs or stiffness, no JVD or bruits. No Stridor. Chest: Clear to auscultation bilaterally. No wheezes or rhonchi. No increased work of breathing. Heart: Regular rate and rhythm without murmurs or gallops. Abdomen: Soft nontender, nondistended without rebound guarding or rigidity. Extremities: No cyanosis clubbing or edema. No calf tenderness or assymetry. Her right lower extremity has a bivalved cast. I removed it to examine it and she has a large amount of pus coming from the patella there is a large scab as well. There is overlying redness. The presentation is very concerning for wound infection. Distally foot she has distal pulses intact. She is a dialysis fistula in the left arm which has a palpable thrill and has no redness or signs of infection Spine/Back. Non tender to palpation. No CVA tenderness Skin: Good turgor without rashes. Neurologic exam: Cranial nerves two through 12 are intact. Motor and sensation are intact and symmetrical throughout, with limitations in the right leg secondary to pain and cast. Course Administered Medications Discontinued Medications Acetaminophen (Acetaminophen 325 Mg Tab) 650 mg PO NOW STA Stop: 07/06/21 22:30 Last Admin: 07/06/21 22:38 Dose: 650 mg Documented by: [id number] Cefepime HCl (Maxipime) 2,000 mg in 20 mls @ 5 mls/min IV NOW STA; Protocol Stop: 07/06/21 19:39 Last Admin: 07/06/21 20:14 Dose: 5 mls/min Documented by: [id number] Medical Decision Making Differential Diagnosis Wound infection, sepsis, dialysis related complication, electrolyte or metabolic abnormality, pneumonia, Covid Medical Records Attestation: I reviewed the patient's medical records. Home Medications Current Medication List: was personally reviewed by me Laboratory Data Attestation: I reviewed the patient's lab results. Result diagrams: 07/06/21 18:41 07/06/21 18:41 Lab Results 07/06/21 07/06/21 07/06/21 Range/Units 18:41 18:41 18:41 WBC 9.67 (4.8-10.8) K/uL RBC 3.24 L (4.2-5.4) M/uL Hgb 8.9 L (12.0-16.0) g/dL Hct 30.3 L (37-47) % MCV 93.5 (80-100) fL MCH 27.5 (25-34) pg MCHC 29.4 L (32-36) g/dL RDW Std Deviation 56.8 H (36.4-46.3) fL RDW Coeff of Chris 16.4 H (11.5-14.5) % Plt Count 234 (130-400) K/uL MPV 9.4 (7.4-10.4) fL Immature Gran % (Auto) 0.2 % Neut % (Auto) 84.0 % Lymph % (Auto) 5.0 % [place] % (Auto) 9.9 % Eos % (Auto) 0.4 % Baso % (Auto) 0.5 % Neut # (Auto) 8.12 H (1.4-6.5) K/uL Lymph # (Auto) 0.48 L (1.2-3.4) K/uL [place] # (Auto) 0.96 H (0.11-0.59) K/uL Eos # (Auto) 0.04 (0-0.5) K/uL Baso # (Auto) 0.05 (0-0.2) K/uL Immature Gran # (Auto) 0.02 (0.00-0.02) K/uL Polychromasia 1+ ESR (0-30) mm/hr Sodium 137 (136-145) mmol/L Potassium 4.0 (3.5-5.1) mmol/L Chloride 99 (98-107) mmol/L Carbon Dioxide 31 (21-32) mmol/L Anion Gap 7 (3-11) BUN 22 (6-23) mg/dl Creatinine 1.67 H (0.6-1.2) mg/dl Est Cr Clr Drug Dosing Not Reportable Est GFR ( Amer) 33.6 ml/min Est GFR (Non-Af Amer) 29.0 ml/min BUN/Creatinine Ratio 13.2 (10-20) Glucose 167 H (70-99(Fasting)) mg/dl Lactate (0.4-2.0) mmol/L Calcium 9.2 (8.5-10.1) mg/dl Total Bilirubin 0.3 (0.2-1.0) mg/dl AST 21 (13-39) U/L ALT 11 (7-52) U/L Alkaline Phosphatase 104 (34-104) U/L C-Reactive Protein 31.16 H (0-0.5) mg/dl Total Protein 6.7 (6.0-8.3) gm/dl Albumin 3.1 L (3.4-5.0) gm/dl Globulin 3.6 (2.5-4.0) gm/dl Albumin/Globulin Ratio 0.9 (0.9-2) SARS-CoV-2, RNA, NAAT (NEGATIVE) 07/06/21 07/06/21 07/06/21 Range/Units 18:45 19:54 19:54 WBC (4.8-10.8) K/uL RBC (4.2-5.4) M/uL Hgb (12.0-16.0) g/dL Hct (37-47) % MCV (80-100) fL MCH (25-34) pg MCHC (32-36) g/dL RDW Std Deviation (36.4-46.3) fL RDW Coeff of Chris (11.5-14.5) % Plt Count (130-400) K/uL MPV (7.4-10.4) fL Immature Gran % (Auto) % Neut % (Auto) % Lymph % (Auto) % [place] % (Auto) % Eos % (Auto) % Baso % (Auto) % Neut # (Auto) (1.4-6.5) K/uL Lymph # (Auto) (1.2-3.4) K/uL [place] # (Auto) (0.11-0.59) K/uL Eos # (Auto) (0-0.5) K/uL Baso # (Auto) (0-0.2) K/uL Immature Gran # (Auto) (0.00-0.02) K/uL Polychromasia ESR 88 H (0-30) mm/hr Sodium (136-145) mmol/L Potassium (3.5-5.1) mmol/L Chloride (98-107) mmol/L Carbon Dioxide (21-32) mmol/L Anion Gap (3-11) BUN (6-23) mg/dl Creatinine (0.6-1.2) mg/dl Est Cr Clr Drug Dosing Est GFR ( Amer) ml/min Est GFR (Non-Af Amer) ml/min BUN/Creatinine Ratio (10-20) Glucose (70-99(Fasting)) mg/dl Lactate 0.8 (0.4-2.0) mmol/L Calcium (8.5-10.1) mg/dl Total Bilirubin (0.2-1.0) mg/dl AST (13-39) U/L ALT (7-52) U/L Alkaline Phosphatase (34-104) U/L C-Reactive Protein (0-0.5) mg/dl Total Protein (6.0-8.3) gm/dl Albumin (3.4-5.0) gm/dl Globulin (2.5-4.0) gm/dl Albumin/Globulin Ratio (0.9-2) SARS-CoV-2, RNA, NAAT NEGATIVE (NEGATIVE) 07/06/21 Range/Units 20:19 WBC (4.8-10.8) K/uL RBC (4.2-5.4) M/uL Hgb (12.0-16.0) g/dL Hct (37-47) % MCV (80-100) fL MCH (25-34) pg MCHC (32-36) g/dL RDW Std Deviation (36.4-46.3) fL RDW Coeff of Chris (11.5-14.5) % Plt Count (130-400) K/uL MPV (7.4-10.4) fL Immature Gran % (Auto) % Neut % (Auto) % Lymph % (Auto) % [place] % (Auto) % Eos % (Auto) % Baso % (Auto) % Neut # (Auto) (1.4-6.5) K/uL Lymph # (Auto) (1.2-3.4) K/uL [place] # (Auto) (0.11-0.59) K/uL Eos # (Auto) (0-0.5) K/uL Baso # (Auto) (0-0.2) K/uL Immature Gran # (Auto) (0.00-0.02) K/uL Polychromasia ESR (0-30) mm/hr Sodium (136-145) mmol/L Potassium (3.5-5.1) mmol/L Chloride (98-107) mmol/L Carbon Dioxide (21-32) mmol/L Anion Gap (3-11) BUN (6-23) mg/dl Creatinine (0.6-1.2) mg/dl Est Cr Clr Drug Dosing Est GFR ( Amer) ml/min Est GFR (Non-Af Amer) ml/min BUN/Creatinine Ratio (10-20) Glucose (70-99(Fasting)) mg/dl Lactate (0.4-2.0) mmol/L Calcium (8.5-10.1) mg/dl Total Bilirubin (0.2-1.0) mg/dl AST (13-39) U/L ALT (7-52) U/L Alkaline Phosphatase (34-104) U/L C-Reactive Protein (0-0.5) mg/dl Total Protein (6.0-8.3) gm/dl Albumin (3.4-5.0) gm/dl Globulin (2.5-4.0) gm/dl Albumin/Globulin Ratio (0.9-2) SARS-CoV-2, RNA, NAAT NEGATIVE (NEGATIVE) Imaging Data Attestation: I personally reviewed and interpreted this imaging study as follows: My Impression: Chest x-ray -she has findings consistent with fluid overload and pulmonary edema Radiologist's Impression: Chest X-Ray 07/06/21 18:02 XR chest 1V portable HISTORY: Fever COMPARISON: Chest 02/15/2021. FINDINGS: No pneumothorax. Small to moderate bilateral pleural effusions have increased in size. Bibasilar densities are also noted. The heart is enlarged. There is diffuse interstitial/vascular thickening consistent with mild pulmonary edema. Degenerative changes noted within the shoulders. IMPRESSION: 1. Cardiomegaly, pulmonary edema, and bilateral pleural effusions. This has progressed in the interval. 2. Bibasilar densities are nonspecific but favor atelectasis from the pleural effusions. A pneumonia could also have a similar appearance. ACT 112: Negative or not required by law. Electronically signed by: Carlito Eugene M.D. 07/06/2021 7:08 PM Knee X-Ray 07/06/21 19:32 XR knee RT 1 or 2V routine CLINICAL HISTORY: post-op rt knee infection COMPARISON STUDY: Right knee 06/12/2021 and 05/31/2021. FINDINGS: Overlying bandage obscures fine bony detail. There is an avulsion fracture at the inferior aspect of the patella which likely accounts for the p atella josef. This demonstrates approximately 2.6 cm of distraction. Soft tissue swelling and a small amount of soft tissue gas inferior to the patella. Basilar calcifications are noted. Small knee effusion. Advanced degenerative changes again noted within the right knee. IMPRESSION: 1. Avulsion fracture at the inferior aspect of the patella demonstrating 2.6 cm of distraction. This is similar to the 06/12/2021 knee radiograph. 2. Soft tissue swelling and a small amount of soft tissue gas anteriorly. This could be due to a superficial wound or infection from a gas-forming organism. No gas identified within the joint space. 3. Advanced degenerative changes again noted within the right knee. ACT 112: Negative or not required by law. Electronically signed by: Carlito Eugene M.D. 07/06/2021 8:54 PM ECG Data Attestation: I personally reviewed and interpreted this ECG as follows: Indication: + weakness Rate (beats per minute): 91 Rhythm: + normal sinus ECG Intervals/blocks: + Normal QRS, + Normal QT and + Normal MS ECG [place]: + Normal ECG ST segments: + Normal ST segments ECG Findings: + PACs and + LVH; no PVCs Comparison ECG Date: from (02/15/21) Change: no significant change MDM Narrative This patient comes in as described haritha. She was placed on a lock operator on C7. She has end-stage renal disease. She has been getting IV antibiotics. She has a injury to her right knee that has been operated on 3 times. Chest x-ray does suggest some fluid overloaded however she has been dialyzed today and has no shortness of breath. White count not elevated and she is afebrile initially here however her knee has marked amount of purulence and is red and appears infected I did refurther review her chart and talk to her ED pharmacist she has been receiving IV vancomycin we broaden the coverage with this with adding cefepime as well. Patient did receive 2 g of IV cefepime. Blood cultures and lactic acid were ordered as well as inflammatory markers. X-ray does show a small amount of air which could be from the wound itself. There is no air in the joint. Dr. Ellis who is on-call for Dr. Ly did see the patient promptly in the ER. I also consulted the hospitalist and Dr. Ascencio saw the patient will be admitting the patient for IV antibiotics and possible operative care. Patient was seen by Dr. Ap Hernandes in the emergency department as well as Dr. Ascencio who will be admitting the patient for further care. Continuous cardiac monitoring: Orders placed in EMR for continuous cart monitor. Upon my interpretation the patient was noted to be in sinus tachycardia at 100. Impression & Plan Infection of right knee, End-stage renal disease on hemodialysis, Patella fracture, Sepsis, Lab test negative for COVID-19 virus Discharge Plan Visit Data Chief Complaint: Knee Injury/Pain Stated Complaint: FEVER, KNEE PAIN, DR REFERRED FOR BLOOD TESTING ED Provider: Heriberto Oconnor Discharge Problem: Infection of right knee, End-stage renal disease on hemodialysis, Patella fracture, Sepsis, Lab test negative for COVID-19 virus Patient Disposition: Admitted As Inpatient Discharge Instructions Interventions: ED Discharge Assessment Last Done: 07/06/21 22:48
[2021-07-06 19:28] LABS: Basophils # (auto) 0.05 K/uL (0-0.2); Basophils % (auto) 0.5 %; Eosinophils # (auto) 0.04 K/uL (0-0.5); Eosinophils % (auto) 0.4 %; Immature Granulocytes # (auto) 0.02 K/uL (0.00-0.02); Immature Granulocytes % (auto) 0.2 %; Lymphocytes # (auto) 0.48 K/uL (1.2-3.4); Monocytes # (auto) 0.96 K/uL (0.11-0.59); Monocytes % (auto) 9.9 %; Neutrophils # (auto) 8.12 K/uL (1.4-6.5); Polychromasia 1+
[2021-07-06] MEDS ORDERED: CEFEPIME 2,000 MG/20 ML VIAL IV STA (19:36)
--- NOTE | 2021-07-06 20:14 | History & Physical Report ---
Date of Service July 06, 2021 Assessment & Plan (1) Dehiscence of wound: Plan: Presents with yet another recurrence of wound dehiscence of the right knee and reported fevers at dialysis, but is afebrile here but took Tylenol prior to admission No leukocytosis, vital signs are stable ESR and CRP are elevated Chest x-ray with evidence of volume overload but no pneumonia and no symptoms of pneumonia UA ordered but not collected and she makes minimal urine Does have a sacral wound but it does not appear infected -Admit to medical/surgical floor -Obtain orthopedics consultation-Dr. Ly is her primary orthopedist, however Dr. Fritz is on-call tonight and is aware of the patient-we will see if needs surgical washout -Continue IV vancomycin and continue addition of IV cefepime given history of Pseudomonas on previous urine cultures -Obtain wound cultures -Follow blood cultures -Follow CBC, CMP -Tylenol as needed for fevers (2) Anemia: Plan: Hemoglobin low at 8.9, managed by nephrology with periodic Epogen and IV iron She is at her baseline Follow CBC (3) End-stage renal disease on hemodialysis: Plan: Consult nephrology for inpatient hemodialysis management if still here on Friday Her dialysis days are Friday and she received dialysis on 07/06 Continue (4) CAD (coronary artery disease): Plan: No history of stents Holding home aspirin in case of need for surgery Continue atorvastatin, isosorbide (5) Depression: Plan: Feeling worse with her mood lately with being in the hospital and rehab so much Continue home venlafaxine (6) Dyslipidemia: Plan: Continue statin (7) Heart failure with mid-range ejection fraction: Plan: Last echocardiogram 10/2020 with mild LV dysfunction EF 45-50%, moderate aortic stenosis, moderate MR Managed with dialysis for volume (8) Hypertension: Plan: Continue home medications of hydralazine, isosorbide, amlodipine (9) Moderate calcific aortic stenosis: Plan: As above, moderate on last echocardiogram Plan: DVT prophylaxis-SCD to the left lower extremity only for now in case of need for surgery Disposition-admit to medical/surgical Conditional code-wants CPR but no intubation or artificial ventilation History of Present Illness Chief Complaint: Fevers/rigors, wound infection Primary Care Provider: David Lopez III, ELLIOTT This patient is a 80-year-old female known to me from previous hospitalizations with ESRD on HD, CAD, HTN, heart failure with midrange EF, DM 2, and depression, who has had multiple recent hospitalizations for postoperative knee infections that continued to dehisce. She was noted to have rigors at dialysis today and did receive a dose of vancomycin there as she has been on vancomycin for over 1 month now. She was brought to the ER for further evaluation and was found to have dehiscence and purulent drainage of her wound again. In the ER, she was not febrile and her vital signs were stable. Of note, she did take Tylenol prior to arrival. Her laboratory work-up was fairly unremarkable other than her chronic anemia, chronic kidney disease, but her ESR was elevated at 88 and CRP elevated at 31. She will be admitted for orthopedic evaluation for wound washout and continued IV antibiotics. She was given a dose of cefepime as well in the ER given history of Pseudomonas in the urine. This is in addition to the IV vancomycin she received with dialysis today. Allergies Allergy/AdvReac Type Severity Reaction Status Date / Time codeine AdvReac Mild DOES NOT Verified 07/06/21 20:37 LIKE THE WAY IT MAKES HER FEEL. Home Medications Medication Instructions Recorded Confirmed Type ascorbic acid (vitamin C) 500 mg 500 mg PO QAM tab 12/10/18 06/14/21 History tablet polyethylene glycol 3350 17 17 gm PO DAILY PRN gm 12/10/18 06/14/21 History gram/dose oral powder venlafaxine 150 mg 150 mg PO QAM cap 12/10/18 06/14/21 History capsule,extended release 24 hr calcium carbonate 600 mg-vitamin 2 tab PO QAM 03/09/20 06/14/21 History D3 10 mcg (400 unit) chewable tablet (Calcium 600 with Vitamin D3) isosorbide mononitrate 120 mg 120 mg PO QAM #90 tab 10/25/20 06/14/21 Rx tablet,extended release 24 hr amlodipine 5 mg tablet 5 mg PO BID #180 tab 11/23/20 06/14/21 Rx cholecalciferol (vitamin D3) 25 50 mcg PO BID cap 12/27/20 06/14/21 History mcg (1,000 unit) capsule hydralazine 50 mg tablet 50 mg PO TID #90 tab 02/28/21 06/14/21 Rx insulin glargine 100 unit/mL (3 23 unit SUBCUT QPM ml 05/10/21 06/15/21 History mL) subcutaneous pen (Lantus Solostar U-100 Insulin) multivitamin 1 cap PO DAILY 05/18/21 06/14/21 History atorvastatin 80 mg tablet 80 mg PO HS #90 tab 05/29/21 06/14/21 Rx aspirin 81 mg tablet,delayed 81 mg PO BID #84 tab 06/03/21 Rx release (Adult Aspirin Regimen) vancomycin 1.25 gram intravenous See Rx Instructions .ROUTE 06/03/21 06/14/21 Rx solution .COMPLEX 42 Days #6 vial tramadol 50 mg tablet 50 mg PO Q6H PRN #60 tab 06/04/21 06/14/21 Rx vitamins A,C,X-tnvl-anxosh 14,320 1 cap PO BID 06/14/21 06/14/21 History unit-226 mg-200 unit capsule (PreserVision AREDS) insulin aspart U-100 100 unit/mL 7 unit SUBCUT TIDM #30 ml 06/22/21 Rx (3 mL) subcutaneous pen (Novolog Flexpen U-100 Insulin aspart) Past Med/Surg History Medical History Anemia AV fistula LEFT CAD (coronary artery disease) Carotid artery disease less than 50% ICA stenosis per 08/2016 carotid duplex CHF (congestive heart failure) Chronic gastroesophageal reflux disease Chronic kidney disease on HD Depression Diabetic peripheral neuropathy associated with type 2 diabetes mellitus Dialysis patient 3XWK (M/W/F) [facility]>FOLLOWED BY DR. HATHAWAY Dyslipidemia Gallstones Generalized osteoarthritis of multiple sites Graves disease H/O malignant neoplasm of uterine body Hiatal hernia History of kidney stones Hypertension Irregular heart beat metoprolol for this per pt Macular degeneration Moderate calcific aortic stenosis Multinodular goiter (nontoxic) Multiple thyroid nodules Obesity Osteopenia Secondary hyperparathyroidism Sleep apnea No device Type 2 diabetes mellitus with insulin therapy Surgical History H/O abdominoplasty H/O basal cell carcinoma excision H/O shoulder surgery Right History of appendectomy History of cataract surgery R/L History of colonoscopy History of esophagogastroduodenoscopy (EGD) History of hip surgery Closed intertrochanteric fracture of left femur 04/10/2021: 02/16/2021: Grade 4 view, MAC#3, ETT#7.0. No issues per anesthesia postop progress note. History of open reduction and internal fixation (ORIF) procedure right patella 05/18/2021: LMA#4 atraumatic + PNB. No issues per anesthesia postop progress note. History of tonsillectomy History of tooth extraction S/P complete hysterectomy Status post knee surgery 05/31/21 Dr. Heriberto Ly- Incision and Debridement Right Knee, Right Open Reduction Internal Fixation Patella, Hardware Removal(Right) Family History Father Diabetes Lung cancer Family history of diabetes mellitus Mother , in a home fire Hypertension Family history of diabetes mellitus Daughter Family history of diabetes mellitus Son Family history of diabetes mellitus Other No family history of adverse response to anesthesia Denies family history of Ovarian cancer Prostate cancer Myocardial infarction Breast cancer Colorectal cancer Social History Smoking Status: Former smoker Tobacco Type: Cigarettes Second Hand Exposure: No; Hx Alcohol Use: Yes Alcohol type: wine Hx Substance Use: No Preferred Language: Djiboutian Communication Ability: Effective Visual Impairment: No Limitations Hearing Ability: Normal Cook Fish Eggs Required: No Beliefs That Will Affect Care: None marital status: / Current Living Situation: Family Current Living Situation Comment: Son and Daughter in Law current occupational status: retired Feels Safe at Home: Yes Safety Concerns Comment: unsteady at times Childhood Exposure to Second-Hand Smoke: Yes Dental Care, Regularly: No Physical Activity Frequency: Does not Exercise Seatbelt Use: always Sunscreen Use: No Assistive Devices: Walker Review of Systems Review of Systems: All systems reviewed & are unremarkable except as noted in HPI & below Physical Exam Constitutional: WD/WN, vitals as above Eyes: PERRL, conjunctivae normal, anicteric sclerae ENMT: external ear and nose normal, oropharynx normal Neck: trachea midline, no thyromegaly Respiratory: normal respiratory effort, lungs clear to auscultation Cardiovascular: Rate/Rhythm: regular rate and regular rhythm (With ectopy) Heart Sounds: + murmur (2/6 IWONA at RUSB) Vessels: dorsalis pedis pulses present (1+ bilaterally) Extremities: no edema Chest (Breasts): Chest: normal inspection of chest Gastrointestinal (Abdomen): normal bowel sounds, soft, nontender, no hepatosplenomegaly Musculoskeletal: Extremities: extremities normal to inspection; no cyanosis and no clubbing Skin: no rashes, warm and dry Neurologic: moves all extremities and awake; no focal motor deficits Psychiatric: A+Ox3, euthymic affect Lymphatic: no lymphedema Results & Data Results & Data ([facility]) Vital Signs (Past 12 Hours) Vital Signs Temp Pulse Resp BP Pulse Ox 07/06/21 19:48 95 H 19 91 07/06/21 17:57 36.7 C 99 H 16 113/58 L 91 Laboratory Results 07/06/21 07/06/21 07/06/21 Range/Units 20:19 19:54 19:54 WBC (4.8-10.8) K/uL RBC (4.2-5.4) M/uL Hgb (12.0-16.0) g/dL Hct (37-47) % MCV (80-100) fL MCH (25-34) pg MCHC (32-36) g/dL RDW Std Deviation (36.4-46.3) fL RDW Coeff of Chris (11.5-14.5) % Plt Count (130-400) K/uL MPV (7.4-10.4) fL Immature Gran % (Auto) % Neut % (Auto) % Lymph % (Auto) % [place] % (Auto) % Eos % (Auto) % Baso % (Auto) % Neut # (Auto) (1.4-6.5) K/uL Lymph # (Auto) (1.2-3.4) K/uL [place] # (Auto) (0.11-0.59) K/uL Eos # (Auto) (0-0.5) K/uL Baso # (Auto) (0-0.2) K/uL Immature Gran # (Auto) (0.00-0.02) K/uL Polychromasia ESR 88 H (0-30) mm/hr Sodium (136-145) mmol/L Potassium (3.5-5.1) mmol/L Chloride (98-107) mmol/L Carbon Dioxide (21-32) mmol/L Anion Gap (3-11) BUN (6-23) mg/dl Creatinine (0.6-1.2) mg/dl Est Cr Clr Drug Dosing Est GFR ( Amer) ml/min Est GFR (Non-Af Amer) ml/min BUN/Creatinine Ratio (10-20) Glucose (70-99(Fasting)) mg/dl Lactate 0.8 (0.4-2.0) mmol/L Calcium (8.5-10.1) mg/dl Total Bilirubin (0.2-1.0) mg/dl AST (13-39) U/L ALT (7-52) U/L Alkaline Phosphatase (34-104) U/L C-Reactive Protein (0-0.5) mg/dl Total Protein (6.0-8.3) gm/dl Albumin (3.4-5.0) gm/dl Globulin (2.5-4.0) gm/dl Albumin/Globulin Ratio (0.9-2) SARS-CoV-2, RNA, NAAT Pending (NEGATIVE) 07/06/21 07/06/21 07/06/21 Range/Units 18:45 18:41 18:41 WBC (4.8-10.8) K/uL RBC (4.2-5.4) M/uL Hgb (12.0-16.0) g/dL Hct (37-47) % MCV (80-100) fL MCH (25-34) pg MCHC (32-36) g/dL RDW Std Deviation (36.4-46.3) fL RDW Coeff of Chris (11.5-14.5) % Plt Count (130-400) K/uL MPV (7.4-10.4) fL Immature Gran % (Auto) % Neut % (Auto) % Lymph % (Auto) % [place] % (Auto) % Eos % (Auto) % Baso % (Auto) % Neut # (Auto) (1.4-6.5) K/uL Lymph # (Auto) (1.2-3.4) K/uL [place] # (Auto) (0.11-0.59) K/uL Eos # (Auto) (0-0.5) K/uL Baso # (Auto) (0-0.2) K/uL Immature Gran # (Auto) (0.00-0.02) K/uL Polychromasia ESR (0-30) mm/hr Sodium 137 (136-145) mmol/L Potassium 4.0 (3.5-5.1) mmol/L Chloride 99 (98-107) mmol/L Carbon Dioxide 31 (21-32) mmol/L Anion Gap 7 (3-11) BUN 22 (6-23) mg/dl Creatinine 1.67 H (0.6-1.2) mg/dl Est Cr Clr Drug Dosing Not Reportable Est GFR ( Amer) 33.6 ml/min Est GFR (Non-Af Amer) 29.0 ml/min BUN/Creatinine Ratio 13.2 (10-20) Glucose 167 H (70-99(Fasting)) mg/dl Lactate (0.4-2.0) mmol/L Calcium 9.2 (8.5-10.1) mg/dl Total Bilirubin 0.3 (0.2-1.0) mg/dl AST 21 (13-39) U/L ALT 11 (7-52) U/L Alkaline Phosphatase 104 (34-104) U/L C-Reactive Protein 31.16 H (0-0.5) mg/dl Total Protein 6.7 (6.0-8.3) gm/dl Albumin 3.1 L (3.4-5.0) gm/dl Globulin 3.6 (2.5-4.0) gm/dl Albumin/Globulin Ratio 0.9 (0.9-2) SARS-CoV-2, RNA, NAAT NEGATIVE (NEGATIVE) 07/06/21 Range/Units 18:41 WBC 9.67 (4.8-10.8) K/uL RBC 3.24 L (4.2-5.4) M/uL Hgb 8.9 L (12.0-16.0) g/dL Hct 30.3 L (37-47) % MCV 93.5 (80-100) fL MCH 27.5 (25-34) pg MCHC 29.4 L (32-36) g/dL RDW Std Deviation 56.8 H (36.4-46.3) fL RDW Coeff of Chris 16.4 H (11.5-14.5) % Plt Count 234 (130-400) K/uL MPV 9.4 (7.4-10.4) fL Immature Gran % (Auto) 0.2 % Neut % (Auto) 84.0 % Lymph % (Auto) 5.0 % [place] % (Auto) 9.9 % Eos % (Auto) 0.4 % Baso % (Auto) 0.5 % Neut # (Auto) 8.12 H (1.4-6.5) K/uL Lymph # (Auto) 0.48 L (1.2-3.4) K/uL [place] # (Auto) 0.96 H (0.11-0.59) K/uL Eos # (Auto) 0.04 (0-0.5) K/uL Baso # (Auto) 0.05 (0-0.2) K/uL Immature Gran # (Auto) 0.02 (0.00-0.02) K/uL Polychromasia 1+ ESR (0-30) mm/hr Sodium (136-145) mmol/L Potassium (3.5-5.1) mmol/L Chloride (98-107) mmol/L Carbon Dioxide (21-32) mmol/L Anion Gap (3-11) BUN (6-23) mg/dl Creatinine (0.6-1.2) mg/dl Est Cr Clr Drug Dosing Est GFR ( Amer) ml/min Est GFR (Non-Af Amer) ml/min BUN/Creatinine Ratio (10-20) Glucose (70-99(Fasting)) mg/dl Lactate (0.4-2.0) mmol/L Calcium (8.5-10.1) mg/dl Total Bilirubin (0.2-1.0) mg/dl AST (13-39) U/L ALT (7-52) U/L Alkaline Phosphatase (34-104) U/L C-Reactive Protein (0-0.5) mg/dl Total Protein (6.0-8.3) gm/dl Albumin (3.4-5.0) gm/dl Globulin (2.5-4.0) gm/dl Albumin/Globulin Ratio (0.9-2) SARS-CoV-2, RNA, NAAT (NEGATIVE) Diagnostic Findings Chest X-Ray 07/06/21 18:02 XR chest 1V portable HISTORY: Fever COMPARISON: Chest 02/15/2021. FINDINGS: No pneumothorax. Small to moderate bilateral pleural effusions have increased in size. Bibasilar densities are also noted. The heart is enlarged. There is diffuse interstitial/vascular thickening consistent with mild pulmonary edema. Degenerative changes noted within the shoulders. IMPRESSION: 1. Cardiomegaly, pulmonary edema, and bilateral pleural effusions. This has progressed in the interval. 2. Bibasilar densities are nonspecific but favor atelectasis from the pleural effusions. A pneumonia could also have a similar appearance. ACT 112: Negative or not required by law. Electronically signed by: Carlito Eugene M.D. 07/06/2021 7:08 PM ECG Additional Comments: ECG on 07/06/2021 1846 with sinus rhythm with PACs, no ischemic changes Code Status & VTE Plan Code Status Conditional code-wants CPR but no intubation or ventilation VTE Prophylaxis Plan VTE Prophylaxis will be ordered: Yes PG Care Time/CCT Total # of Minutes Spent Total Time Spent with Patient: Total time spent is greater than 50% in coordination of care (as documented) at patient's floor/unit and/or counseling patient: Coding Level of Care Code 40446 Initial Inpt Care Lvl 3 Diagnoses Anemia N18.6; D63.1; Z99.2 Anemia type: due to chronic kidney disease Chronic kidney disease stage: on chronic dialysis CAD (coronary artery disease) I25.10 Dehiscence of wound T81.30XA Depression F32.9 Dyslipidemia E78.5 End-stage renal disease on hemodialysis N18.6; Z99.2 Heart failure with mid-range ejection fraction I50.9 Hypertension I10 Hypertension type: unspecified Moderate calcific aortic stenosis I35.0 (1) Anemia Anemia type: due to chronic kidney disease Chronic kidney disease stage: on chronic dialysis Qualified Code(s): N18.6 - End stage renal disease; D63.1 - Anemia in chronic kidney disease; Z99.2 - Dependence on renal dialysis (2) Hypertension Hypertension type: unspecified Qualified Code(s): I10 - Essential (primary) hypertension
--- NOTE | 2021-07-06 20:55 | XRay Report ---
XR knee RT 1 or 2V routine CLINICAL HISTORY: post-op rt knee infection COMPARISON STUDY: Right knee 06/12/2021 and 05/31/2021. FINDINGS: Overlying bandage obscures fine bony detail. There is an avulsion fracture at the inferior aspect of the patella which likely accounts for the patella josef. This demonstrates approximately 2.6 cm of distraction. Soft tissue swelling and a small amount of soft tissue gas inferior to the patell a. Basilar calcifications are noted. Small knee effusion. Advanced degenerative changes again noted w ithin the right knee. IMPRESSION: 1. Avulsion fracture at the inferior aspect of the patella demonstrating 2.6 cm of distraction. This is similar to the 06/12/2021 knee radiograph. 2. Soft tissue swelling and a small amount of soft tissue gas anteriorly. This could be due to a supe rficial wound or infection from a gas-forming organism. No gas identified within the joint space. 3. Advanced degenerative changes again noted within the right knee. ACT 112: Negative or not required by law. Electronically signed by: Carlito Eugene M.D. 07/06/2021 8:54 PM
--- NOTE | 2021-07-06 22:09 | Consultation Report ---
DATE OF SERVICE: 07/06/2021 Sonam is a 80-year-old female who I was called to the ER to see. She was at dialysis today and had feelings of illness, shaking chills and sweats. She was sent to the Emergency Room. She has had prior surgery on her right knee recently and evaluation of that revealed an infection. Sonam fell around the first of the year, sustaining a patellar fracture, which was treated with ORIF by Dr. Ly. That unfortunately did not work requiring a revision ORIF with a plate and screws. She subsequently had further complication of wound dehiscence and disruption of her patellar tendon, which required an additional surgery approximately on 06/14. She was in the hospital for a couple of weeks and recently has been discharged. She remains on intravenous vancomycin. Sonam has a past medical history of diabetes and end-stage renal disease, on dialysis. Her past medical history otherwise is reviewed and noted. Her medications are noted. Amlodipine, vitamin C, aspirin, atorvastatin, calcium and vitamin D, hydralazine, insulin, Isordil, polyethylene glycol, tramadol, vancomycin, venlafaxine. SHE IS ALLERGIC TO CODEINE, MORE OF A REACTION. DOES NOT LIKE THE WAY IT MAKES HER FEEL. Radiographs of the knee have been obtained, but they are not available for review in previewing in the EMR right now. Report indicates avulsion fracture at the inferior aspect of patella, 2.6 cm of distraction similar to 06/12 x-ray, soft tissue swelling and small amount of gas anteriorly. No gas in the joint space. Advanced degenerative changes of the knee. Previous x-rays demonstrate plate and screws in place within the patella. White count is 9.7, hemoglobin 10, hematocrit 30, platelets 234. She is afebrile. Vital signs are noted. Her blood pressure is a little bit high. She is mildly tachycardic. She is awake, alert and responsive. Her daughter is with her. She has a large linear black eschar over the anterior piedra, which her daughter states was there after the first surgery. There is a small wound about a centimeter in diameter over the right Achilles area and a small black eschar over the forefoot. Pedal pulses are not palpable. Her foot is warm and capillary refill is less than 2 seconds. She has intact plantar flexion and inversion, but has no ability to dorsiflex the ankle or toes or saurabh the foot. Her plantar flexion and inversion strength would be graded about 4/5. Her knee is held in a flexed posture and I did not flex the knee or straighten it. Her leg is not swollen. She has several eschars about the knee, one on each of the medial and lateral sides of the knee, which are able to be peeled off revealing some new skin below with some excoriation. Her daughter states that these were caused by the initial brace. There is a large black eschar 6 cm triangular in shape over the midportion of the lateral wound. There is yellow pus draining out from the margins of this. Sutures remain in place. The distal portion of this eschar is from the skin and can be lifted up slightly revealing necrotic and purulent material underneath. I do not visualize any tendon, bone, or hardware. There is tenderness over the medial retinaculum. The knee itself does not demonstrate any effusion and swelling overall is mild. The area around the incision and around the large black eschar is mildly erythematous. Her thigh and calf are nontender. Her daughter showed me a series of pictures showing the knee in various stages since the time of the initial surgery. IMPRESSION: Postoperative infection of the right knee with necrotic tissue and retained hardware. PLAN: I contacted Dr. Ly and discussed the case with him. I am electronic calibration technician and he is not available. We both agree that the patient should be admitted to the hospital. She will be admitted to the medicine service. Dr. Ly indicated what had transpired recently regarding the numerous complications that the patient has unfortunately suffered. I relayed to him my thoughts regarding the situation. I also discussed this with the patient and her daughter. I think that this requires surgery. I think the surgery could be done tomorrow morning, but probably should not wait much beyond that. I think the surgery should consist of debridement of the eschar and debridement of the wound. This is likely going to result in a full thickness defect down to the extensor mechanism, which I am pretty certain is going to leave the previous patellar tendon repair as well as the plate and screws of the patella exposed. Given the condition of the wound, these areas are likely contaminated, and any and all foreign material needs to be removed. I do not think that there is any infection inside the knee joint at this point, but that certainly would be evaluated tomorrow and I may aspirate the knee joint to evaluate. The patella is unfortunately likely not to be healed and the extensor mechanism, i.e., the patellar tendon likely is not healed either. The result is likely going to be a large open wound with an unhealed patellar fracture and an unhealed patellar tendon rupture. I discussed this with Dr. Ly. I do not think there is a way to salvage this with wound care and antibiotics. She may need a wound VAC. I discussed with the patient and her daughter that this is a very unfortunate complicated situation to have loss of soft tissue coverage over her kneecap and patellar tendon. This might be salvageable with something like wound care or wound VAC. I would get plastic surgery and vascular surgery involved. While it is possible that things may heal up, I think that this is pretty unlikely and that she is probably going to end up with an open wound and a disrupted extensor mechanism. This is going to make her leg nonfunctional. The patient's foot drop, she reports, has been present since the first surgery. This also complicates matters as well. Her daughter stated that Dr. Ly said she may lose her leg and that is a possibility and in some respects is a more straightforward solution to address this complicated situation with a more predictable and short-term outcome. I will go ahead and take care of debriding the wound and then Dr. Ly will assume care once he is available. I talked about risks, benefits, rehab, and recovery and an informed consent was obtained. She will be n.p.o. after midnight.Offered transfer to tertiary care. Job ID: [id number] [facility]
[2021-07-06] MEDS ORDERED: ACETAMINOPHEN 325 MG TAB PO STA (22:29)
[2021-07-06] MEDS ORDERED: CEFEPIME 2,000 MG in SYRINGE 0 ML IV SCH (23:32)
[2021-07-06] MEDS ORDERED: VANCOMYCIN CONSULT ACTIVE PRN (23:32)
[2021-07-06] MEDS ORDERED: INSULIN ASPART PER UNIT SC SCH (23:32)
[2021-07-06] MEDS ORDERED: GLUCOSE 10 TABS/TUBE PO PRN (23:32)
[2021-07-06] MEDS ORDERED: DEXTROSE 50% 50 ML SYRINGE IV PRN (23:32)
[2021-07-06] MEDS ORDERED: GLUCAGON FOR INJ 1 MG VIAL SQ PRN (23:32)
[2021-07-06] MEDS ORDERED: ONDANSETRON INJ 2 MG/ML 2 ML VIAL IV PRN (23:32)
[2021-07-06] MEDS ORDERED: CARBOHYDRATES FOR HYPOGLYCEMIA PO PRN (23:32)
[2021-07-07] MEDS: amLODIPine BESYLATE 5 MG TAB PO SCH ×3 (00:44→20:54)
[2021-07-07] MEDS: ATORVASTATIN 40 MG TAB PO SCH ×2 (00:45→20:55)
[2021-07-07] MEDS: hydrALAZINE TAB 50 MG TAB PO SCH ×4 (00:46→20:56)
[2021-07-07] MEDS: CHOLECALCIFEROL 1,000 UNITS 25 MCG TAB PO SCH ×3 (00:46→20:55)
[2021-07-07] MEDS: INSULIN GLARGINE SOLOSTAR 100 UNITS/ML 3 ML PEN SQ SCH ×2 (00:49→20:56)
[2021-07-07] MEDS: traMADol HCL 50 MG TABLET PO PRN ×2 (00:59→23:10)
[2021-07-07] MEDS: INSULIN ASPART PER UNIT SC SCH ×3 (06:31→20:53)
[2021-07-07] MEDS: ACETAMINOPHEN 325 MG TAB PO PRN ×2 (06:35→20:59)
--- NOTE | 2021-07-07 08:59 | Anesthesiology Consultation ---
Date of Service July 07, 2021 Assessment & Plan (1) Encounter for pre-operative examination: Chart Review Chart Review: Acceptable Risk for Surgery and Patient NOT seen in Pre Admission Testing Consults Requested none History Surgery Operation Date: 07/07/21 08:45 Proposed Procedures p Incision and Drainage Right Knee(Right) - Bean Fritz MD Height/Weight Height: 5 ft 6 in Weight: 82.3 kg Allergies Allergy/AdvReac Type Severity Reaction Status Date / Time codeine AdvReac Mild DOES NOT Verified 07/06/21 20:37 LIKE THE WAY IT MAKES HER FEEL. Medications Home Medications Medication Instructions Recorded Confirmed Last Taken ascorbic acid (vitamin C) 500 mg 500 mg PO QAM tab 12/10/18 07/06/21 07/06/21 tablet polyethylene glycol 3350 17 17 gm PO DAILY PRN gm 12/10/18 07/06/21 11/07/20 09:00 gram/dose oral powder venlafaxine 150 mg 150 mg PO QAM cap 12/10/18 07/06/21 07/06/21 capsule,extended release 24 hr calcium carbonate 600 mg-vitamin 2 tab PO QAM 03/09/20 07/06/21 07/06/21 D3 10 mcg (400 unit) chewable tablet (Calcium 600 with Vitamin D3) isosorbide mononitrate 120 mg 120 mg PO QAM #90 tab 10/25/20 07/06/21 07/06/21 tablet,extended release 24 hr amlodipine 5 mg tablet 5 mg PO BID #180 tab 11/23/20 07/06/21 07/06/21 cholecalciferol (vitamin D3) 25 50 mcg PO BID cap 12/27/20 07/06/21 05/30/21 mcg (1,000 unit) capsule hydralazine 50 mg tablet 50 mg PO TID #90 tab 02/28/21 07/06/21 07/06/21 insulin glargine 100 unit/mL (3 23 unit SUBCUT QPM ml 05/10/21 07/06/21 07/05/21 mL) subcutaneous pen (Lantus Solostar U-100 Insulin) multivitamin 1 cap PO DAILY 05/18/21 07/06/21 07/06/21 atorvastatin 80 mg tablet 80 mg PO HS #90 tab 05/29/21 07/06/21 Unknown aspirin 81 mg tablet,delayed 81 mg PO BID #84 tab 06/03/21 07/06/21 Unknown release (Adult Aspirin Regimen) vancomycin 1.25 gram intravenous See Rx Instructions .ROUTE 06/03/21 07/06/21 Unknown solution .COMPLEX 42 Days #6 vial tramadol 50 mg tablet 50 mg PO Q6H PRN #60 tab 06/04/21 07/06/21 07/06/21 vitamins A,C,T-xlfu-ujtxsy 14,320 1 cap PO BID 06/14/21 07/06/21 07/06/21 unit-226 mg-200 unit capsule (PreserVision AREDS) insulin aspart U-100 100 unit/mL 7 unit SUBCUT TIDM #30 ml 06/22/21 07/06/21 Unknown (3 mL) subcutaneous pen (Novolog Flexpen U-100 Insulin aspart) Active Medications Generic Name Dose Route Start Last Admin Trade Name Freq PRN Reason Stop Dose Admin Acetaminophen 650 mg 07/06/21 23:32 07/07/21 06:35 Acetaminophen 325 Mg Tab PO 08/05/21 23:31 650 mg Q4H PRN Administration pain/fever Amlodipine Besylate 5 mg 07/06/21 23:32 07/07/21 00:44 Amlodipine Besylate 5 Mg Tab PO 08/05/21 23:31 5 mg BID CASA Administration Atorvastatin Calcium 80 mg 07/06/21 23:32 07/07/21 00:45 Atorvastatin 40 Mg Tab PO 08/05/21 23:31 80 mg HS CASA Administration Hydralazine HCl 50 mg 07/06/21 23:32 07/07/21 00:46 Hydralazine Tab 50 Mg Tab PO 08/05/21 23:31 50 mg TID CASA Administration Insulin Aspart 0 units 07/07/21 06:00 07/07/21 06:31 Insulin Aspart Per Unit SC 08/06/21 05:59 Not Given Q6 CASA Insulin Glargine 15 units 07/06/21 23:32 07/07/21 00:49 Insulin Glargine Solostar 100 Units/Ml 3 Ml Pen SQ 08/05/21 23:31 15 units QPM CASA Administration Tramadol HCl 50 mg 07/06/21 23:32 07/07/21 00:59 Tramadol Hcl 50 Mg Tablet PO 08/05/21 23:31 50 mg Q6H PRN Administration pain Vitamin D 1,000 units 07/06/21 23:32 07/07/21 00:46 Cholecalciferol 1,000 Units 25 Mcg Tab PO 08/05/21 23:31 1,000 units BID CASA Administration NPO Date Last Intake of Fluids: 07/06/21 Time Last Intake of Fluids: 23:59 Date Last Intake of Solids: 07/06/21 Time Last Intake of Solids: 23:59 Past Medical History Medical History Anemia AV fistula LEFT CAD (coronary artery disease) Carotid artery disease less than 50% ICA stenosis per 08/2016 carotid duplex CHF (congestive heart failure) Chronic gastroesophageal reflux disease Chronic kidney disease on HD Depression Diabetic peripheral neuropathy associated with type 2 diabetes mellitus Dialysis patient 3XWK (M/W/F) [facility]>FOLLOWED BY DR. HATHAWAY Dyslipidemia Gallstones Generalized osteoarthritis of multiple sites Graves disease H/O malignant neoplasm of uterine body Hiatal hernia History of kidney stones Hypertension Irregular heart beat metoprolol for this per pt Macular degeneration Moderate calcific aortic stenosis Multinodular goiter (nontoxic) Multiple thyroid nodules Obesity Osteopenia Secondary hyperparathyroidism Sleep apnea No device Type 2 diabetes mellitus with insulin therapy Past Family History Family History Father Diabetes Lung cancer Family history of diabetes mellitus Mother , in a home fire Hypertension Family history of diabetes mellitus Daughter Family history of diabetes mellitus Son Family history of diabetes mellitus Other No family history of adverse response to anesthesia Denies family history of Ovarian cancer Prostate cancer Myocardial infarction Breast cancer Colorectal cancer Past Surgical History Surgical History H/O abdominoplasty H/O basal cell carcinoma excision H/O shoulder surgery Right History of appendectomy History of cataract surgery R/L History of colonoscopy History of esophagogastroduodenoscopy (EGD) History of hip surgery Closed intertrochanteric fracture of left femur 04/10/2021: 02/16/2021: Grade 4 view, MAC#3, ETT#7.0. No issues per anesthesia postop progress note. History of open reduction and internal fixation (ORIF) procedure right patella 05/18/2021: LMA#4 atraumatic + PNB. No issues per anesthesia postop progress note. History of tonsillectomy History of tooth extraction S/P complete hysterectomy Status post knee surgery 05/31/21 Dr. Heriberto Ly- Incision and Debridement Right Knee, Right Open Reduction Internal Fixation Patella, Hardware Removal(Right) Social History Smoking Status: Former smoker tobacco type: cigarettes Do You Dip or Chew Tobacco: No Hx Alcohol Use: Yes Alcohol type: wine alcohol intake frequency: holidays/special occasions only Hx Substance Use: No substance use type: does not use Physical Exam Vital Signs Last Vital Signs Temp 36.6 C 07/07/21 08:16 Pulse 82 07/07/21 08:16 Resp 18 07/07/21 08:16 BP 152/73 H 07/07/21 08:16 Pulse Ox 96 07/07/21 08:16 Testing Laboratory Results 07/06/21 18:41 07/06/21 18:41 07/07/21 07/06/21 06:21 23:37 POC Glucose 90 161 H Other Testing Electrocardiogram Date: 02/15/21 Poor data quality, interpretation may be adversely affected Normal sinus rhythm Normal ECG When compared with ECG of 03-JAN-2021 05:50, Nonspecific T wave abnormality now evident in Lateral leads Echocardiogram Date: 10/23/20 Mild left ventricular systolic dysfunction Mild cLVH Mild left atrial dilatation Normal right ventricular systolic function Moderate aortic stenosis. Mean gradient 20.8 mmHg. Aortic valve area 1 cm2 Trace to mild aortic regurgitation Moderate mitral regurgitation EF 45-50% Grade 1 diastolic dysfunction Mild global hypokinesis of the left ventricle Other Testing Thyroid ultrasound 05/22/2021 IMPRESSION: No significant change in multiple thyroid nodules since ultrasound of January 17, 2016, including a densely calcified right mid pole nodule. Carotid doppler 09/03/2016 < 50% stenosis in internal carotid arteries bilat
[2021-07-07] MEDS ORDERED: VANCOMYCIN HCL 1,250 MG in SODIUM CHLORIDE 0.9% 250 ML IV SCH (09:00)
--- NOTE | 2021-07-07 09:00 | Hospitalist Progress Note ---
Date of Service July 07, 2021 Assessment & Plan (1) Dehiscence of wound: Plan: Presents with yet another recurrence of wound dehiscence of the right knee and reported fevers at dialysis, but is afebrile here but took Tylenol prior to admission No leukocytosis, vital signs are stable ESR and CRP are elevated 88 & 31.1 respectively Chest x-ray with evidence of volume overload but no pneumonia and no symptoms of pneumonia UA ordered but not collected and she makes minimal urine Does have a sacral wound but it does not appear infected 07/07 NPO for I&D with Dr Fritz this morning s/p Incision and drainage extremity right knee, extensive debridement right knee, removal of implant from right patella, application of wound vac.(Right) - Bean Fritz MD. EBL 50cc. Blood cultures pending Wound cx to be obtained from OR -- monitor (prior May 2021 Enterococcus and had been on Vanco) Wound vac placed in OR, wound RN consulted Continued on Vanco/Cefepime given prior hx pseudomonas in urine cx (not really able to obtain, patient makes minimal urine and vanco for knee cx May with enterococcus) Dr Ly to make determination of need for consultation with plastics/vascular in AM per Dr Fritz ?Lovenox ordered by surgery for DVT prophylaxis --> discussed with pharmacy and they are reaching out to ortho DELL to discuss feasibility of using Heparin SQ instead of Lovenox given ESRD on HD Labs from AM pending Nephrology on consult given on HD, monitoring h/h sharron, maintained on Mircera as outpatient for anemia (2) Anemia: Plan: Hemoglobin low at 8.9, managed by nephrology with periodic Epogen and IV iron She is at her baseline Follow CBC (3) End-stage renal disease on hemodialysis: Plan: Consult nephrology for inpatient hemodialysis management if still here on Friday Her dialysis days are Friday and she received dialysis on 07/06 Continue (4) CAD (coronary artery disease): Plan: No history of stents Holding home aspirin for surgery, resumed ASA 81mg BID post-operatively No chest pain reported Continue atorvastatin, isosorbide (5) Depression: Plan: Feeling worse with her mood lately with being in the hospital and rehab so much Continue home venlafaxine (6) Dyslipidemia: Plan: Continue statin (7) Heart failure with mid-range ejection fraction: Plan: Last echocardiogram 10/2020 with mild LV dysfunction EF 45-50%, moderate aortic stenosis, moderate MR Managed with dialysis for volume (8) Hypertension: Plan: Continue home medications of hydralazine, isosorbide, amlodipine (9) Moderate calcific aortic stenosis: Plan: As above, moderate on last echocardiogram Plan: DVT prophylaxis-SCD to the left lower extremity only for now in case of need for surgery Conditional code-wants CPR but no intubation or artificial ventilation wound vac placed in OR, monitor cx wound RN consulted Admission and Anticipated Discharge Date Admission Date: July 06, 2021 Subjective patient evaluated post-operatively in room 375. s/p debridement and removal of hardware Patient states she is having 11/10 pain to her knee currently and requesting medication. denies fever, chills, chest pain, shortness of breath, abdominal pain or nausea at this time and main symptom is pain. Was supposed to go home after recovering from [facility] but she pre sented to HD with low grade temp/night sweat/chills. Review of Systems Review of Systems: All systems reviewed & are unremarkable except as noted in HPI & below Physical Exam Constitutional: WD/WN, vitals as above (mild distress d/t pain in knee) Eyes: pupils equal, reactive ENMT: external ear and nose normal, oropharynx normal Neck: trachea midline, no thyromegaly Respiratory: normal respiratory effort, lungs clear to auscultation oxymask post-operatively, SpO2 95% Cardiovascular: Rate/Rhythm: regular rate and regular rhythm Heart Sounds: + murmur (2/6 IWONA at RUSB) Vessels: dorsalis pedis pulses present (1+ bilaterally) Extremities: no edema calves non-tender' AV fistula (+thrill) Chest (Breasts): Chest: normal inspection of chest Gastrointestinal (Abdomen): normal bowel sounds, soft, nontender, no hepatosplenomegaly Musculoskeletal: Extremities: extremities normal to inspection; no cyanosis and no clubbing +b/l LE neuropathy wound vac to L knee, amarilys wrap/immobilizer in place, pulses palpable but diminished toes cool, but mobile Skin: cool, dry Neurologic: moves all extremities and awake; no focal motor deficits Psychiatric: alert, oriented to person/place/time Lymphatic: no lymphedema Results & Data Results & Data ([facility]) Vital Signs (Past 12 Hours) Vital Signs Temp Pulse Resp BP Pulse Ox Pulse Ox 07/07/21 08:16 36.6 C 82 18 152/73 H 96 07/06/21 23:08 36.8 C 108 H 18 184/68 H 93 96 Laboratory Results 07/07/21 07/07/21 07/07/21 Range/Units 13:38 06:21 00:02 WBC (4.8-10.8) K/uL RBC (4.2-5.4) M/uL Hgb (12.0-16.0) g/dL Hct (37-47) % MCV (80-100) fL MCH (25-34) pg MCHC (32-36) g/dL RDW Std Deviation (36.4-46.3) fL RDW Coeff of Chris (11.5-14.5) % Plt Count (130-400) K/uL MPV (7.4-10.4) fL Immature Gran % (Auto) % Neut % (Auto) % Lymph % (Auto) % Mcminn % (Auto) % Eos % (Auto) % Baso % (Auto) % Neut # (Auto) (1.4-6.5) K/uL Lymph # (Auto) (1.2-3.4) K/uL Mcminn # (Auto) (0.11-0.59) K/uL Eos # (Auto) (0-0.5) K/uL Baso # (Auto) (0-0.2) K/uL Immature Gran # (Auto) (0.00-0.02) K/uL Polychromasia ESR (0-30) mm/hr Sodium (136-145) mmol/L Potassium (3.5-5.1) mmol/L Chloride (98-107) mmol/L Carbon Dioxide (21-32) mmol/L Anion Gap (3-11) BUN (6-23) mg/dl Creatinine (0.6-1.2) mg/dl Est Cr Clr Drug Dosing Est GFR ( Amer) ml/min Est GFR (Non-Af Amer) ml/min BUN/Creatinine Ratio (10-20) Glucose (70-99(Fasting)) mg/dl POC Glucose 109 H 90 (70-99) mg/dl Lactate (0.4-2.0) mmol/L Calcium (8.5-10.1) mg/dl Total Bilirubin (0.2-1.0) mg/dl AST (13-39) U/L ALT (7-52) U/L Alkaline Phosphatase (34-104) U/L C-Reactive Protein (0-0.5) mg/dl Total Protein (6.0-8.3) gm/dl Albumin (3.4-5.0) gm/dl Globulin (2.5-4.0) gm/dl Albumin/Globulin Ratio (0.9-2) Random Vancomycin 16.3 (10-20) mcg/ml SARS-CoV-2, RNA, NAAT (NEGATIVE) 07/06/21 07/06/21 07/06/21 Range/Units 23:37 20:19 19:54 WBC (4.8-10.8) K/uL RBC (4.2-5.4) M/uL Hgb (12.0-16.0) g/dL Hct (37-47) % MCV (80-100) fL MCH (25-34) pg MCHC (32-36) g/dL RDW Std Deviation (36.4-46.3) fL RDW Coeff of Chris (11.5-14.5) % Plt Count (130-400) K/uL MPV (7.4-10.4) fL Immature Gran % (Auto) % Neut % (Auto) % Lymph % (Auto) % Mcminn % (Auto) % Eos % (Auto) % Baso % (Auto) % Neut # (Auto) (1.4-6.5) K/uL Lymph # (Auto) (1.2-3.4) K/uL Mcminn # (Auto) (0.11-0.59) K/uL Eos # (Auto) (0-0.5) K/uL Baso # (Auto) (0-0.2) K/uL Immature Gran # (Auto) (0.00-0.02) K/uL Polychromasia ESR (0-30) mm/hr Sodium (136-145) mmol/L Potassium (3.5-5.1) mmol/L Chloride (98-107) mmol/L Carbon Dioxide (21-32) mmol/L Anion Gap (3-11) BUN (6-23) mg/dl Creatinine (0.6-1.2) mg/dl Est Cr Clr Drug Dosing Est GFR ( Amer) ml/min Est GFR (Non-Af Amer) ml/min BUN/Creatinine Ratio (10-20) Glucose (70-99(Fasting)) mg/dl POC Glucose 161 H (70-99) mg/dl Lactate 0.8 (0.4-2.0) mmol/L Calcium (8.5-10.1) mg/dl Total Bilirubin (0.2-1.0) mg/dl AST (13-39) U/L ALT (7-52) U/L Alkaline Phosphatase (34-104) U/L C-Reactive Protein (0-0.5) mg/dl Total Protein (6.0-8.3) gm/dl Albumin (3.4-5.0) gm/dl Globulin (2.5-4.0) gm/dl Albumin/Globulin Ratio (0.9-2) Random Vancomycin (10-20) mcg/ml SARS-CoV-2, RNA, NAAT NEGATIVE (NEGATIVE) 07/06/21 07/06/21 07/06/21 Range/Units 19:54 18:45 18:41 WBC (4.8-10.8) K/uL RBC (4.2-5.4) M/uL Hgb (12.0-16.0) g/dL Hct (37-47) % MCV (80-100) fL MCH (25-34) pg MCHC (32-36) g/dL RDW Std Deviation (36.4-46.3) fL RDW Coeff of Chris (11.5-14.5) % Plt Count (130-400) K/uL MPV (7.4-10.4) fL Immature Gran % (Auto) % Neut % (Auto) % Lymph % (Auto) % Mcminn % (Auto) % Eos % (Auto) % Baso % (Auto) % Neut # (Auto) (1.4-6.5) K/uL Lymph # (Auto) (1.2-3.4) K/uL Mcminn # (Auto) (0.11-0.59) K/uL Eos # (Auto) (0-0.5) K/uL Baso # (Auto) (0-0.2) K/uL Immature Gran # (Auto) (0.00-0.02) K/uL Polychromasia ESR 88 H (0-30) mm/hr Sodium (136-145) mmol/L Potassium (3.5-5.1) mmol/L Chloride (98-107) mmol/L Carbon Dioxide (21-32) mmol/L Anion Gap (3-11) BUN (6-23) mg/dl Creatinine (0.6-1.2) mg/dl Est Cr Clr Drug Dosing Est GFR ( Amer) ml/min Est GFR (Non-Af Amer) ml/min BUN/Creatinine Ratio (10-20) Glucose (70-99(Fasting)) mg/dl POC Glucose (70-99) mg/dl Lactate (0.4-2.0) mmol/L Calcium (8.5-10.1) mg/dl Total Bilirubin (0.2-1.0) mg/dl AST (13-39) U/L ALT (7-52) U/L Alkaline Phosphatase (34-104) U/L C-Reactive Protein 31.16 H (0-0.5) mg/dl Total Protein (6.0-8.3) gm/dl Albumin (3.4-5.0) gm/dl Globulin (2.5-4.0) gm/dl Albumin/Globulin Ratio (0.9-2) Random Vancomycin (10-20) mcg/ml SARS-CoV-2, RNA, NAAT NEGATIVE (NEGATIVE) 07/06/21 07/06/21 Range/Units 18:41 18:41 WBC 9.67 (4.8-10.8) K/uL RBC 3.24 L (4.2-5.4) M/uL Hgb 8.9 L (12.0-16.0) g/dL Hct 30.3 L (37-47) % MCV 93.5 (80-100) fL MCH 27.5 (25-34) pg MCHC 29.4 L (32-36) g/dL RDW Std Deviation 56.8 H (36.4-46.3) fL RDW Coeff of Chris 16.4 H (11.5-14.5) % Plt Count 234 (130-400) K/uL MPV 9.4 (7.4-10.4) fL Immature Gran % (Auto) 0.2 % Neut % (Auto) 84.0 % Lymph % (Auto) 5.0 % Mcminn % (Auto) 9.9 % Eos % (Auto) 0.4 % Baso % (Auto) 0.5 % Neut # (Auto) 8.12 H (1.4-6.5) K/uL Lymph # (Auto) 0.48 L (1.2-3.4) K/uL Mcminn # (Auto) 0.96 H (0.11-0.59) K/uL Eos # (Auto) 0.04 (0-0.5) K/uL Baso # (Auto) 0.05 (0-0.2) K/uL Immature Gran # (Auto) 0.02 (0.00-0.02) K/uL Polychromasia 1+ ESR (0-30) mm/hr Sodium 137 (136-145) mmol/L Potassium 4.0 (3.5-5.1) mmol/L Chloride 99 (98-107) mmol/L Carbon Dioxide 31 (21-32) mmol/L Anion Gap 7 (3-11) BUN 22 (6-23) mg/dl Creatinine 1.67 H (0.6-1.2) mg/dl Est Cr Clr Drug Dosing Not Reportable Est GFR ( Amer) 33.6 ml/min Est GFR (Non-Af Amer) 29.0 ml/min BUN/Creatinine Ratio 13.2 (10-20) Glucose 167 H (70-99(Fasting)) mg/dl POC Glucose (70-99) mg/dl Lactate (0.4-2.0) mmol/L Calcium 9.2 (8.5-10.1) mg/dl Total Bilirubin 0.3 (0.2-1.0) mg/dl AST 21 (13-39) U/L ALT 11 (7-52) U/L Alkaline Phosphatase 104 (34-104) U/L C-Reactive Protein (0-0.5) mg/dl Total Protein 6.7 (6.0-8.3) gm/dl Albumin 3.1 L (3.4-5.0) gm/dl Globulin 3.6 (2.5-4.0) gm/dl Albumin/Globulin Ratio 0.9 (0.9-2) Random Vancomycin (10-20) mcg/ml SARS-CoV-2, RNA, NAAT (NEGATIVE) PG Care Time/CCT Total # of Minutes Spent Total Time Spent with Patient: Total time spent is greater than 50% in coordination of care (as documented) at patient's floor/unit and/or counseling patient: Coding Level of Care Code 57150 Subseq Hosp Care Lvl 3 Diagnoses Dehiscence of wound T81.30XA Anemia N18.6; D63.1; Z99.2 Anemia type: due to chronic kidney disease Chronic kidney disease stage: on chronic dialysis End-stage renal disease on hemodialysis N18.6; Z99.2 CAD (coronary artery disease) I25.10 Depression F32.9 Dyslipidemia E78.5 Heart failure with mid-range ejection fraction I50.9 Hypertension I10 Hypertension type: unspecified Moderate calcific aortic stenosis I35.0 (1) Anemia Anemia type: due to chronic kidney disease Chronic kidney disease stage: on chronic dialysis Qualified Code(s): N18.6 - End stage renal disease; D63.1 - Anemia in chronic kidney disease; Z99.2 - Dependence on renal dialysis (2) Hypertension Hypertension type: unspecified Qualified Code(s): I10 - Essential (primary) hypertension
--- NOTE | 2021-07-07 09:02 | History & Physical Bridge Note ---
Date of Service July 07, 2021 History & Physical Bridge Note I have examined the patient, reviewed the History & Physical and in the interval since the performance of the History & Physical I have noted the following changes of clinical significance: no changes noted site signed, no sig changes
[2021-07-07] MEDS: ISOSORBIDE MONO EXTENDED REL 60 MG TABCR PO SCH (09:06)
[2021-07-07] MEDS ORDERED: LIDOCAINE 1% LOCAL 20 ML VIAL ONE (09:56)
[2021-07-07] MEDS ORDERED: BUPIVACAINE 0.5 % 5 MG/1 ML MPF 30ML VIAL ONE (09:56)
[2021-07-07] MEDS ORDERED: LIDOCAINE 2% 2 ML VIAL/AMP(20MG/ML) INFIL ONE (10:14)
[2021-07-07] MEDS ORDERED: fentaNYL citrate 100 MCG/2 ML VIAL ONE (10:14)
[2021-07-07] MEDS ORDERED: ONDANSETRON INJ 2 MG/ML 2 ML VIAL ONE (10:14)
[2021-07-07] MEDS ORDERED: PROPOFOL IV EMULSION 10 MG/ML 20 ML VIAL IV ONE (10:14)
--- NOTE | 2021-07-07 10:25 | Electrocardiogram Report ---
Test Reason : Blood Pressure : / mmHG Vent. Rate : 091 BPM Atrial Rate : 091 BPM P-R Int : 140 ms QRS Dur : 100 ms QT Int : 378 ms P-R-T Axes : 030 000 067 degrees QTc Int : 464 ms Sinus rhythm with Premature atrial complexes Moderate voltage criteria for LVH, may be normal variant Borderline ECG When compared with ECG of 15-FEB-2021 16:43, Premature atrial complexes are now Present Vent. rate has increased BY 31 BPM T wave amplitude has decreased in Lateral leads Confirmed by Mark Stephens [id number]) on 07/07/2021 10:25:24 AM Referred By: Atul Schneider Confirmed By:Mark Stephens
[2021-07-07] MEDS ORDERED: VANCOMYCIN HCL 1000MG/20ML VIAL ONE (10:42)
[2021-07-07] MEDS ORDERED: GENTAMICIN SULFATE 40 MG/ML 2 ML VIAL ONE (10:42)
[2021-07-07] MEDS ORDERED: ceFAZolin 330 MG/ML 1 GM VIAL ONE (11:36)
[2021-07-07] MEDS ORDERED: ONDANSETRON INJ 2 MG/ML 2 ML VIAL IV PRN (11:42)
[2021-07-07] MEDS ORDERED: ePHEDrine sulfate 50 MG/ML AMP IV PRN (11:42)
[2021-07-07] MEDS ORDERED: ATROPINE SULFATE 0.1 MG/ML 10ML SYR IV PRN (11:42)
[2021-07-07] MEDS ORDERED: ceFAZolin 1000MG 1,000 MG/7.5 ML SYR IV ONE (12:18)
[2021-07-07] MEDS ORDERED: TRANEXAMIC ACID / 0.7% NACL 1000MG/100ML BAG IV ONE (12:58)
[2021-07-07] MEDS ORDERED: ePHEDrine sulfate 50 MG/ML AMP ONE (13:10)
[2021-07-07] MEDS ORDERED: PHENYLEPHRINE 100MCG/ML 5ML SYR ONE (13:10)
--- NOTE | 2021-07-07 13:39 | Operative Report ---
Post Operative Report Pre & Post Diagnosis Operation Date: 07/07/21 08:45 Pre-Op Diagnosis: Postoperative infection of the right knee with necrotic tissue and retained hardware. Post-Op Diagnosis: Postoperative infection of the right knee with necrotic tissue and retained hardware. I identified the patient and participated in the time-out.: Yes Procedure Operation Date: 07/07/21 08:45 Actual Procedures p Incision and drainage extremity right knee, extensive debridement right knee, removal of implant from right knee, application of wound vac.(Right) - Bean Fritz MD Surgeon Dr. Bean Fritz Health Outreach Worker Rose Myrick PA-C Estimated Blood Loss 50 Findings Consistent with Post-Op Diagnosis Specimens right knee escar and tissue Description of Procedure Pt was taken to operating room, placed under general anesthesia. Pt was given 1gram Ancef IV. Prepped and draped in sterile fashion. I was present during the entire case and assisted with positioning, instrumentation, closure and dressings. Please see Dr. Fritz's op report for further detail. Pt was awake and transferred to PACU in stable condition I attest to the content of the Intraoperative Record and any orders documented therein. Any exceptions are noted below.
--- NOTE | 2021-07-07 13:49 | Operative Report ---
Post Operative Report Pre & Post Diagnosis Operation Date: 07/07/21 08:45 Pre-Op Diagnosis: Postoperative infection of the right knee with necrotic tissue and retained hardware. Post-Op Diagnosis: Postoperative infection of the right knee with necrotic tissue and retained hardware. I identified the patient and participated in the time-out.: Yes Procedure Operation Date: 07/07/21 08:45 Actual Procedures p Incision and drainage extremity right knee, extensive debridement right knee, removal of implant from right patella, application of wound vac.(Right) - Bean Fritz MD Surgeon Bean Fritz MD Casing Mixer Rose blue, physicians cosmetic sales assistant. No resident or fellow available. Estimated Blood Loss 50 Findings Consistent with Post-Op Diagnosis Specimens Cultures x1 debrided tissue. Drains Wound VAC Anesthesia Type General Complications none Disposition Accompanied Patient To Recovery: No Disposition: Recovery Room Indications Patient is 80 years old. She has diabetes and kidney failure on dialysis. She is status post a fall resulting in a patella fracture. This was treated with ORIF. That unfortunately failed which required revision ORIF. She subsequently had a wound necrosis and dehiscence. That was addressed surgically. She now reports to the hospital with wound infection and necrosis. Description of Procedure Informed consent obtained. Patient identified. She identified the operative site as the right knee. I marked with my initials. A preoperative surgical timeout was performed. A preop dose of IV antibiotics was given. She was taken to the operating room positioned supine on the operating room table. A bump was placed on the right hip. The leg was prescrubbed the Betadine the sutures in the incision were removed. The distal portion of the wound spontaneously dehisced. Betadine paint was used for prepping. SCD for prophylaxis. Postoperatively Lovenox or heparin. The wound had copious purulent drainage. There was a 6 to 7 cm on edge triangular area on the midportion of the lateral wound which was a thick black leathery eschar which represented full-thickness necrosis of the skin. The distal portion of this was detached already. Purulent drainage was coming from underneath it. The proximal wound had healed. The distal wound spontaneously opened. There was also 2 areas about a centimeter and a half in diameter overlying the medial lateral aspects of the knee at about the joint line area which had black eschar present. There is also an area on the front of the knee about 1 to 2 cm wide and 10 to 12 cm long which also had a thick black eschar. These 3 areas were debrided by lifting the eschar and pulling it off of the underlying tissue. I then used sharp debridement with scissors or scalpel to debride back to healthy normal tissue. Hemostasis was achieved and at the end of the surgical procedure this was covered with Xeroform 4 x 4 and OpSite dressings. No bone was exposed although the pretibial area was down to the periosteum. In regards to the knee I obtained a culture from the purulent material set it for Gram stain aerobic anaerobic culture. I then lifted up the black eschar and it was easily removed from its proximal attachment at the demarcation zone using a combination of pressure and sharp dissection. This was full-thickness necrosis and resembled a piece of the leather. Immediate beneath this was the plate which was exposed and covered with purulence. Copious granulation tissue was noted throughout the knee area. I went ahead and remove the screws from the plate. The plate was removed. Building Supplies Salesperson Retail fluoroscopic images in the AP and lateral views were obtained demonstrating that the patella held together. There is no exposed bone directly on the patella had good soft tissue covering. The hardware had been completely removed. The bursal area around the retinaculum was thoroughly debrided using a curette and rondure as well as the surface of the patella patella. Distally there were numerous sutures which looked like a PDS which were encountered from the prior patellar tendon repair. This repair had come apart and was by several centimeters. The sutures were removed as encountered. In fact all foreign material was removed as it was encountered. I then identified some bone fragments within the upper portion of the patellar tendon which was completely torn and from the patella. I debrided these sharply. The anterior portion of the patellar tendon was soupy and stringy and I debrided as much of that as I could encounter. Due to the patellar tendon injury the joint was opened and exposed and the femoral condyle was easily visible within the wound. However the patella had essentially adhered down to the suprapatellar area and I could not free it up from the distal femur. There is no suprapatellar effusion noted. There was unhealthy looking fluid down into the tibiofemoral joint. This was then irrigated with 6 L of pulsatile lavage. I then closed the proximal distal extents of the incision using #1 nylon near far far near suture. This left a full-thickness defect about 6 to 7 cm on edge involving the patella lateral retinaculum and the anterolateral joint and patellar tendon. There was exposed cartilage. There was nothing to cover this over with. I went ahead and applied a wound VAC. I used a silver sponge. I put Adaptic over the cartilage and this inserted 3 pieces of silver sponge into the wound and slightly underneath the tissue. The VAC was then constructed in standard fashion and deployed without incident. A small amount of bloody drainage was noted. Prior to applying the VAC meticulous hemostasis was performed and the wound was dry at the time it was applied. I then applied abundant padding over the front of the knee and wrapped everything with an Marcio wrap. The hose was padded. Underneath the Marcio wrap was several layers of cast padding. A knee immobilizer was then applied. Patient taken to recovery in stable condition the resected tissue was sent for specimen. Cultures were also sent. No complications. Counts correct blood loss 50 cc. The patient received intraoperative dose of TXA. I spoke the patient's daughter informed her of my findings. I also contacted Dr. Ly and discussed with him my findings as well. I attest to the content of the Intraoperative Record and any orders documented therein. Any exceptions are noted below.
[2021-07-07] MEDS: fentaNYL citrate 100 MCG/2 ML VIAL IV PRN ×2 (13:55→14:02)
[2021-07-07] MEDS ORDERED: CONSULT PHARMACY STA (13:58)
--- NOTE | 2021-07-07 14:09 | Anesthesiology Progress Note ---
Date of Service July 07, 2021 Anesthesia Post Procedure Vital Signs Vital Signs: Temp Pulse Pulse Resp BP BP BP 07/07/21 08:16 36.6 C 82 18 152/73 H 07/06/21 23:08 36.8 C 108 H 18 184/68 H 07/06/21 20:55 100 H 18 147/71 H 07/06/21 19:48 95 H 19 07/06/21 17:57 36.7 C 99 H 16 113/58 L Pulse Ox Pulse Ox 07/07/21 08:16 96 07/06/21 23:08 93 96 07/06/21 20:55 90 07/06/21 19:48 91 07/06/21 17:57 91 Pain Intensity Right Knee: Pain Intensity: 6 Transfer of Care Handoff Completed per policy Notes Mental Status: alert / awake / arousable and participated in evaluation Patient Amnestic to Procedure: Yes Nausea / Vomiting: adequately controlled Pain: adequately controlled Airway Patency, RR, SpO2: stable & adequate BP & HR: stable & adequate Hydration State: stable & adequate Anesthetic Complications: no major complications apparent and Pt Satisfied with anesthetic care
--- NOTE | 2021-07-07 14:20 | Nephrology Consultation ---
Date of Consultation July 07, 2021 Assessment & Plan (1) End-stage renal disease on hemodialysis: HD MWF. Volume status acceptable. Clearances have been appropriate. Electrolytes controlled. Minerva was seen and evaluated during HD yesterday. She has been tolerating HD well. AVF functioning well. Medications appropriately dosed for IHD. No changes at this time. (2) Anemia: Chronic, stable. Maintained on Micera as outaptient. Monitor H/H daily through Friday. (3) Infection of right knee: Remains on vancomycin with HD. Cefepime provided yesterday. Cultures pending. s/p debridement and hardware removal today. History of Present Illness Reason for Consultation: ESRD on HD Requesting Physician: Bean Marcum MD Attending Physician: Bean Marcum MD History of Present Illness Sonam Bolivar (Lucy) is a 80 year-old female with DM, CAD, hypertension, Grave's disease with hypothyroidism, obesity, and ESRD. ESRD attributed to DKD. Minerva is maintained on hemodialysis MWF at [facility] under my care. She has been tolerating HD well. Unfortunately, she suffered several recent falls. ORIF of a IC femoral fracture performed in February. She presented in May for ORIF of a patella fracture. During surgery a seroma was drained. There was concern for infection. Unfortunately, she then required revision ORIF with plate and screw placement. Further complications included wound dehiscence and disruption of the patellar tendon. Minerva has been maintained on vancomycin for ~1 month. Following recent hospitalization at [facility] 06/14-06/28, she has been recovering at [facility]. Minerva was scheduled to return home yesterday. Unfortunately, she presented to HD yesterday with a low grade temp, night sweats and chills. She developed notable rigors and a Tmax 101 during HD. Following HD, vancomycin 1.25 grams was provided as scheduled. Minerva was then transported to the ER at [facility] for additional evaluation. She was admitted with evidence of wound infection and necrosis and taken to the OR this AM for debridement, removal of hardware and wound vac placement. Minerva completed a full HD treatment yesterday without complications. EDW has been 83 kg. Minerva has a well functioning L RC AVF which was placed by Dr. Gregg in October. It has been functioning well. Minerva has chronic anemia for which she is maintained on Micera and has required PRBC transfusion support as recently as February. Hemoglobin has been stable recently at ~9-9.5. Allergies Allergy/AdvReac Type Severity Reaction Status Date / Time codeine AdvReac Mild DOES NOT Verified 07/06/21 20:[address] IT MAKES HER FEEL. Home Medications Medication Instructions Recorded Confirmed Type ascorbic acid (vitamin C) 500 mg 500 mg PO QAM tab 12/10/18 07/06/21 History tablet polyethylene glycol 3350 17 17 gm PO DAILY PRN gm 12/10/18 07/06/21 History gram/dose oral powder venlafaxine 150 mg 150 mg PO QAM cap 12/10/18 07/06/21 History capsule,extended release 24 hr calcium carbonate 600 mg-vitamin 2 tab PO QAM 03/09/20 07/06/21 History D3 10 mcg (400 unit) chewable tablet (Calcium 600 with Vitamin D3) isosorbide mononitrate 120 mg 120 mg PO QAM #90 tab 10/25/20 07/06/21 Rx tablet,extended release 24 hr amlodipine 5 mg tablet 5 mg PO BID #180 tab 11/23/20 07/06/21 Rx cholecalciferol (vitamin D3) 25 50 mcg PO BID cap 12/27/20 07/06/21 History mcg (1,000 unit) capsule hydralazine 50 mg tablet 50 mg PO TID #90 tab 02/28/21 07/06/21 Rx insulin glargine 100 unit/mL (3 23 unit SUBCUT QPM ml 05/10/21 07/06/21 History mL) subcutaneous pen (Lantus Solostar U-100 Insulin) multivitamin 1 cap PO DAILY 05/18/21 07/06/21 History atorvastatin 80 mg tablet 80 mg PO HS #90 tab 05/29/21 07/06/21 Rx aspirin 81 mg tablet,delayed 81 mg PO BID #84 tab 06/03/21 07/06/21 Rx release (Adult Aspirin Regimen) vancomycin 1.25 gram intravenous See Rx Instructions .ROUTE 06/03/21 07/06/21 Rx solution .COMPLEX 42 Days #6 vial tramadol 50 mg tablet 50 mg PO Q6H PRN #60 tab 06/04/21 07/06/21 Rx vitamins A,C,H-jmuw-mvqebo 14,320 1 cap PO BID 06/14/21 07/06/21 History unit-226 mg-200 unit capsule (PreserVision AREDS) insulin aspart U-100 100 unit/mL 7 unit SUBCUT TIDM #30 ml 06/22/21 07/06/21 Rx (3 mL) subcutaneous pen (Novolog Flexpen U-100 Insulin aspart) Patient History Medical History Anemia AV fistula LEFT CAD (coronary artery disease) Carotid artery disease less than 50% ICA stenosis per 08/2016 carotid duplex CHF (congestive heart failure) Chronic gastroesophageal reflux disease Chronic kidney disease on HD Depression Diabetic peripheral neuropathy associated with type 2 diabetes mellitus Dialysis patient 3XWK (M/W/F) [facility]>FOLLOWED BY DR. HATHAWAY Dyslipidemia Gallstones Generalized osteoarthritis of multiple sites Graves disease H/O malignant neoplasm of uterine body Hiatal hernia History of kidney stones Hypertension Irregular heart beat metoprolol for this per pt Macular degeneration Moderate calcific aortic stenosis Multinodular goiter (nontoxic) Multiple thyroid nodules Obesity Osteopenia Secondary hyperparathyroidism Sleep apnea No device Type 2 diabetes mellitus with insulin therapy Surgical History H/O abdominoplasty H/O basal cell carcinoma excision H/O shoulder surgery Right History of appendectomy History of cataract surgery R/L History of colonoscopy History of esophagogastroduodenoscopy (EGD) History of hip surgery Closed intertrochanteric fracture of left femur 04/10/2021: 02/16/2021: Grade 4 view, MAC#3, ETT#7.0. No issues per anesthesia postop progress note. History of open reduction and internal fixation (ORIF) procedure right patella 05/18/2021: LMA#4 atraumatic + PNB. No issues per anesthesia postop progress note. History of tonsillectomy History of tooth extraction S/P complete hysterectomy Status post knee surgery 05/31/21 Dr. Heriberto Ly- Incision and Debridement Right Knee, Right Open Reduction Internal Fixation Patella, Hardware Removal(Right) Family History Father Diabetes Lung cancer Family history of diabetes mellitus Mother , in a home fire Hypertension Family history of diabetes mellitus Daughter Family history of diabetes mellitus Son Family history of diabetes mellitus Other No family history of adverse response to anesthesia Denies family history of Ovarian cancer Prostate cancer Myocardial infarction Breast cancer Colorectal cancer Social History Smoking Status: Former smoker Tobacco Type: Cigarettes Second Hand Exposure: No; Do You Dip or Chew Tobacco: No; Tobacco Cessation Education Requested by Patient: No Hx Alcohol Use: Yes Alcohol type: wine Hx Substance Use: No Preferred Language: Turkish Communication Ability: Effective Visual Impairment: No Limitations Hearing Ability: Normal Acid Tester Required: No Beliefs That Will Affect Care: None marital status: / Current Living Situation: Family Current Living Situation Comment: Son and Daughter in law. current occupational status: retired Other Information That Helps Us Care for You: No Feels Safe at Home: Yes Safety Concerns: Feels Safe At This Time Safety Concerns Comment: unsteady at times Childhood Exposure to Second-Hand Smoke: Yes Dental Care, Regularly: No Physical Activity Frequency: Does not Exercise Seatbelt Use: always Sunscreen Use: No Assistive Devices: Denture - Upper, Denture - Lower, Glasses and Wheelchair Review of Systems Review of Systems: All systems reviewed & are unremarkable except as noted in HPI & below Physical Exam Constitutional: well developed; no acute distress Eyes: no scleral abnormality and no corneal abnormality ENMT: Mouth: no oral mucosal abnormality and oral mucous membranes not dry Neck: normal visual inspection and trachea midline Respiratory: normal respiratory effort Auscultation: lungs clear to auscultation bilaterally Cardiovascular: Rate/Rhythm: regular rate Heart Sounds: normal S1, normal S2 and + murmur Extremities: + AV fistula; no edema Musculoskeletal: Extremities: no cyanosis and no clubbing Skin: normal turgor; no lesions Neurologic: Motor/Sensory: no tremor and no asterixis Psychiatric: Orientation: alert and oriented x 3 Results & Data ([facility]) Vital Signs (Past 12 Hours) Vital Signs Temp Pulse Pulse Resp BP Pulse Ox 07/07/21 14:05 36.3 C L 78 13 122/63 100 07/07/21 13:55 80 15 131/64 98 07/07/21 13:45 80 14 127/53 L 98 07/07/21 13:35 36.1 C L 75 16 132/54 L 99 07/07/21 08:16 36.6 C 82 18 152/73 H 96 Laboratory Results Laboratory Results - last 24 hr 07/06/21 07/06/21 07/06/21 18:41 18:41 18:41 WBC 9.67 RBC 3.24 L Hgb 8.9 L Hct 30.3 L MCV 93.5 MCH 27.5 MCHC 29.4 L RDW Std Deviation 56.8 H RDW Coeff of Chris 16.4 H Plt Count 234 MPV 9.4 Immature Gran % (Auto) 0.2 Neut % (Auto) 84.0 Lymph % (Auto) 5.0 [place] % (Auto) 9.9 Eos % (Auto) 0.4 Baso % (Auto) 0.5 Neut # (Auto) 8.12 H Lymph # (Auto) 0.48 L [place] # (Auto) 0.96 H Eos # (Auto) 0.04 Baso # (Auto) 0.05 Immature Gran # (Auto) 0.02 Polychromasia 1+ ESR Sodium 137 Potassium 4.0 Chloride 99 Carbon Dioxide 31 Anion Gap 7 BUN 22 Creatinine 1.67 H Est Cr Clr Drug Dosing Not Reportable Est GFR ( Amer) 33.6 Est GFR (Non-Af Amer) 29.0 BUN/Creatinine Ratio 13.2 Glucose 167 H POC Glucose Lactate Calcium 9.2 Total Bilirubin 0.3 AST 21 ALT 11 Alkaline Phosphatase 104 C-Reactive Protein 31.16 H Total Protein 6.7 Albumin 3.1 L Globulin 3.6 Albumin/Globulin Ratio 0.9 Random Vancomycin SARS-CoV-2, RNA, NAAT 07/06/21 07/06/21 07/06/21 18:45 19:54 19:54 WBC RBC Hgb Hct MCV MCH MCHC RDW Std Deviation RDW Coeff of Chris Plt Count MPV Immature Gran % (Auto) Neut % (Auto) Lymph % (Auto) [place] % (Auto) Eos % (Auto) Baso % (Auto) Neut # (Auto) Lymph # (Auto) [place] # (Auto) Eos # (Auto) Baso # (Auto) Immature Gran # (Auto) Polychromasia ESR 88 H Sodium Potassium Chloride Carbon Dioxide Anion Gap BUN Creatinine Est Cr Clr Drug Dosing Est GFR ( Amer) Est GFR (Non-Af Amer) BUN/Creatinine Ratio Glucose POC Glucose Lactate 0.8 Calcium Total Bilirubin AST ALT Alkaline Phosphatase C-Reactive Protein Total Protein Albumin Globulin Albumin/Globulin Ratio Random Vancomycin SARS-CoV-2, RNA, NAAT NEGATIVE 07/06/21 07/06/21 07/07/21 20:19 23:37 00:02 WBC RBC Hgb Hct MCV MCH MCHC RDW Std Deviation RDW Coeff of Chris Plt Count MPV Immature Gran % (Auto) Neut % (Auto) Lymph % (Auto) [place] % (Auto) Eos % (Auto) Baso % (Auto) Neut # (Auto) Lymph # (Auto) [place] # (Auto) Eos # (Auto) Baso # (Auto) Immature Gran # (Auto) Polychromasia ESR Sodium Potassium Chloride Carbon Dioxide Anion Gap BUN Creatinine Est Cr Clr Drug Dosing Est GFR ( Amer) Est GFR (Non-Af Amer) BUN/Creatinine Ratio Glucose POC Glucose 161 H Lactate Calcium Total Bilirubin AST ALT Alkaline Phosphatase C-Reactive Protein Total Protein Albumin Globulin Albumin/Globulin Ratio Random Vancomycin 16.3 SARS-CoV-2, RNA, NAAT NEGATIVE 07/07/21 07/07/21 06:21 13:38 WBC RBC Hgb Hct MCV MCH MCHC RDW Std Deviation RDW Coeff of Chris Plt Count MPV Immature Gran % (Auto) Neut % (Auto) Lymph % (Auto) [place] % (Auto) Eos % (Auto) Baso % (Auto) Neut # (Auto) Lymph # (Auto) [place] # (Auto) Eos # (Auto) Baso # (Auto) Immature Gran # (Auto) Polychromasia ESR Sodium Potassium Chloride Carbon Dioxide Anion Gap BUN Creatinine Est Cr Clr Drug Dosing Est GFR ( Amer) Est GFR (Non-Af Amer) BUN/Creatinine Ratio Glucose POC Glucose 90 109 H Lactate Calcium Total Bilirubin AST ALT Alkaline Phosphatase C-Reactive Protein Total Protein Albumin Globulin Albumin/Globulin Ratio Random Vancomycin SARS-CoV-2, RNA, NAAT PG Care Time/CCT Total # of Minutes Spent Total Time Spent with Patient: Total time spent is greater than 50% in coordination of care (as documented) at patient's floor/unit and/or counseling patient: Coding Level of Care Code 70309 Inpt Consult Level 4 Diagnoses Anemia N18.6; D63.1; Z99.2 Anemia type: due to chronic kidney disease Chronic kidney disease stage: on chronic dialysis End-stage renal disease on hemodialysis N18.6; Z99.2 Infection of right knee M00.9 (1) Anemia Anemia type: due to chronic kidney disease Chronic kidney disease stage: on chronic dialysis Qualified Code(s): N18.6 - End stage renal disease; D63.1 - Anemia in chronic kidney disease; Z99.2 - Dependence on renal dialysis
[2021-07-07] MEDS: CALCIUM 600MG + VIT D 400 IU TAB PO SCH (14:51)
[2021-07-07] MEDS: ASCORBIC ACID 500 MG TAB PO SCH (14:51)
[2021-07-07] MEDS: MULTIVITAMIN TAB PO SCH (14:51)
[2021-07-07] MEDS: VENLAFAXINE HCL XR 150 MG CAPXR PO SCH (14:52)
[2021-07-07] MEDS ORDERED: ACETAMINOPHEN 1,000 MG/100 ML VIAL IV STA (15:36)
--- NOTE | 2021-07-07 15:41 | Fluoroscopy Report ---
FL knee RT 1 or 2V CLINICAL HISTORY: RIGHT KNEE HARDWARE REMOVAL COMPARISON STUDY: Right knee 07/06/2021. FLUOROSCOPY TIME: 6 seconds. FINDINGS: 5 fluoroscopic spot images of the right knee demonstrate removal of the patellar hardware. IMPRESSION: Fluoroscopic assistance provided for removal of the patellar hardware ACT 112: Negative or not required by law. Electronically signed by: Carlito Eugene M.D. 07/07/2021 3:40 PM
[2021-07-07 16:18] LABS: Basophils # (auto) 0.04 K/uL (0-0.2); Basophils % (auto) 0.4 %; Eosinophils # (auto) 0.15 K/uL (0-0.5); Eosinophils % (auto) 1.5 %; Hematocrit (blood only) 25.5 % (37-47); Hemoglobin 7.6 g/dL (12.0-16.0); Immature Granulocytes # (auto) 0.03 K/uL (0.00-0.02); Immature Granulocytes % (auto) 0.3 %; Lymphocytes # (auto) 0.39 K/uL (1.2-3.4); Mean Corpuscular Hemoglobin 27.8 pg (25-34); Mean Corpuscular Hgb Conc 29.8 g/dL (32-36); Mean Corpuscular Volume 93.4 fL (80-100); Monocytes # (auto) 1.08 K/uL (0.11-0.59); Monocytes % (auto) 11.1 %; Neutrophils # (auto) 8.06 K/uL (1.4-6.5); Neutrophils % (auto) 82.7 %; Platelet Count 234 K/uL (130-400); RDW Coefficient of Variation 16.4 % (11.5-14.5); RDW Standard Deviation 56.2 fL (36.4-46.3); Red Blood Count 2.73 M/uL (4.2-5.4); White Blood Count 9.75 K/uL (4.8-10.8)
[2021-07-07 16:35] LABS: Albumin Globulin Ratio 0.9 (0.9-2); Albumin Level 2.8 gm/dl (3.4-5.0); BUN Creatinine Ratio 13.2 (10-20); Bilirubin,Total 0.3 mg/dl (0.2-1.0); Calcium 9.1 mg/dl (8.5-10.1); Creatinine Clr Calc Pharmacy 20.6 ml/min; Est GFR (African American) 21.4 ml/min; Est GFR (Non-African American) 18.4 ml/min; Globulin 3.1 gm/dl (2.5-4.0); Total Protein 5.9 gm/dl (6.0-8.3)
[2021-07-07 16:46] LABS: Polychromasia 1+
[2021-07-07] MEDS: CEFEPIME 1,000 MG in SYRINGE 0 ML IV SCH (17:19)
[2021-07-07] MEDS ORDERED: Nursing to Pharmacy Communication SCH (17:45)
[2021-07-07 18:16] LABS: C Reactive Protein 30.12 mg/dl (0-0.5)
[2021-07-07] MEDS: ASPIRIN 81 MG ECTAB PO SCH (20:55)
[2021-07-08] MEDS: ACETAMINOPHEN 325 MG TAB PO PRN ×4 (02:22→23:50)
[2021-07-08] MEDS: traMADol HCL 50 MG TABLET PO PRN (06:11)
--- NOTE | 2021-07-08 06:59 | Orthopedic Progress Note ---
Date of Service July 08, 2021 Assessment & Plan (1) Infection of right knee: Unfortunately, nothing seems to be healing with her right leg. She has multiple wounds and the large eschar that was in the central lateral aspect of her knee has not improved at all in the last month. Now she has an infection. Dr. Fritz did a meticulous job at irrigating and debriding the right knee yesterday. A 6 cm x 7 cm VAC sponge was placed. Unfortunately, this is a full- thickness defect. Below the VAC sponge is the distal femur. I do not know of any other way that we could better optimize healing in her right leg. She is just not a candidate for skin graft or rotational flaps. I had a serious conversation with her this morning about an amputation of the right leg. At this point I think it is in her best interest. Our 2 options going forward would be either an amputation or to continue wound VAC treatments to the right leg with the hope of getting this to heal. However, given the fact that nothing seems to be healing in her right leg I do not think that the VAC sponges and wo und care would be successful. At this point I recommend an above-knee amputation. I am going to call her daughter later this morning and discussed it with her. It will need to be discussed with her family. After the patient and the family reached a decision we will move forward appropriately. Jason Masters was seen and examined at bedside this morning. I spoke with Dr. Ap Valadez yesterday about what he found during the procedure. Unfortunately she has a 6 cm x 7 cm full-thickness defect on the lateral aspect of her knee. A VAC sp onge is filling the defect for now. Nothing seems to be healing. In fact, after almost 3 weeks with the sutures in place, when he removed the sutures the wound just dehisced. This leg is simply not healing. Unfortunately she is having a lot of pain in the right leg today. She seems depressed by the whole situation. Review of Systems All systems reviewed & are unremarkable except as noted in HPI & below. Physical Exam On physical examination of the right leg, I opened up the bandage. There is a 6 cm x 7 cm VAC sponge placed over the central lateral aspect of the knee wound. There is some redness around the knee. She is in a knee immobilizer as well. Results & Data Results & Data Laboratory Results . Diagnostic Findings . PG Care Time/CCT Total # of Minutes Spent Total Time Spent with Patient: Total time spent is greater than 50% in coordination of care (as documented) at patient's floor/unit and/or counseling patient: Coding Level of Care Code 22115 Post Operative Follow-Up Diagnoses Infection of right knee M00.9
[2021-07-08 08:09] LABS: Hematocrit (blood only) 23.3 % (37-47); Hemoglobin 6.8 g/dL (12.0-16.0); Mean Corpuscular Hemoglobin 27.3 pg (25-34); Mean Corpuscular Hgb Conc 29.2 g/dL (32-36); Mean Corpuscular Volume 93.6 fL (80-100); Mean Platelet Volume 9.2 fL (7.4-10.4); Platelet Count 237 K/uL (130-400); RDW Coefficient of Variation 16.4 % (11.5-14.5); RDW Standard Deviation 55.9 fL (36.4-46.3); Red Blood Count 2.49 M/uL (4.2-5.4); White Blood Count 8.09 K/uL (4.8-10.8)
[2021-07-08] MEDS ORDERED: SODIUM CHLORIDE 0.9% 250 ML IV PRN (08:29)
[2021-07-08 08:33] LABS: Albumin Globulin Ratio 0.9 (0.9-2); Albumin Level 2.8 gm/dl (3.4-5.0); BUN Creatinine Ratio 11.8 (10-20); Bilirubin,Total 0.2 mg/dl (0.2-1.0); Calcium 8.8 mg/dl (8.5-10.1); Creatinine Clr Calc Pharmacy 16.5 ml/min; Est GFR (African American) 16.3 ml/min; Est GFR (Non-African American) 14.1 ml/min; Potassium 4.5 mmol/L (3.5-5.1); Total Protein 5.8 gm/dl (6.0-8.3)
[2021-07-08] MEDS: INSULIN ASPART PER UNIT SC SCH ×4 (08:51→23:45)
[2021-07-08] MEDS: ISOSORBIDE MONO EXTENDED REL 60 MG TABCR PO SCH (08:53)
[2021-07-08] MEDS: CALCIUM 600MG + VIT D 400 IU TAB PO SCH (08:53)
[2021-07-08] MEDS: hydrALAZINE TAB 50 MG TAB PO SCH ×3 (08:53→23:43)
[2021-07-08] MEDS: CHOLECALCIFEROL 1,000 UNITS 25 MCG TAB PO SCH ×2 (08:53→23:43)
[2021-07-08] MEDS: amLODIPine BESYLATE 5 MG TAB PO SCH ×2 (08:53→23:42)
[2021-07-08] MEDS: ASCORBIC ACID 500 MG TAB PO SCH (08:53)
[2021-07-08] MEDS: ASPIRIN 81 MG ECTAB PO SCH ×2 (08:53→23:42)
[2021-07-08] MEDS: VENLAFAXINE HCL XR 150 MG CAPXR PO SCH (08:54)
[2021-07-08] MEDS: MULTIVITAMIN TAB PO SCH (08:54)
[2021-07-08 08:57] LABS: Basophils # (auto) 0.04 K/uL (0-0.2); Basophils % (auto) 0.5 %; Eosinophils # (auto) 0.28 K/uL (0-0.5); Eosinophils % (auto) 3.5 %; Immature Granulocytes # (auto) 0.02 K/uL (0.00-0.02); Immature Granulocytes % (auto) 0.2 %; Lymphocytes # (auto) 0.82 K/uL (1.2-3.4); Lymphocytes % (auto) 10.1 %; Monocytes # (auto) 1.37 K/uL (0.11-0.59); Monocytes % (auto) 16.9 %; Neutrophils # (auto) 5.56 K/uL (1.4-6.5); Neutrophils % (auto) 68.8 %; Polychromasia 1+
[2021-07-08] MEDS ORDERED: HEPARIN SOD 5,000 UNIT/0.5 ML VIAL SQ SCH (09:00)
[2021-07-08] MEDS ORDERED: ENOXAPARIN INJ 30 MG/0.3 ML SYR SQ SCH (09:00)
--- NOTE | 2021-07-08 09:12 | Hospitalist Progress Note ---
Date of Service July 08, 2021 Assessment & Plan (1) Bacteremia: Plan: presented with wound dehiscence s/p multiple surgeries and fever at HD Continue on Vanco/cefepime POD #1 s/p Incision and drainage extremity right knee, extensive debridement right knee, removal of implant from right patella, application of wound vac.(Right) - Bean Fritz MD. EBL 50cc --> OR cx from wound gram negative bacilli (last month with Enterococcus) Blood cultures 2/2 GN bacilli, repeat pending ECHO --> NO VEGETATION Hgb 6.8 this morning --> discussed with Nephro, will give 1u PRBC, repeat labs this afternoon (on heparin SQ for DVT prophylaxis, maintained on Mircera as ou tpatient for anemia) --> Checked iron panel --> iron 11, trans % sat 9 and nephrology has ordered dose of Venofer, EPO 20,000 to be given with HD tomorrow Plans for HD in AM per nephrology, on consult for patient with ESRD on HD Patient to talk with family today as ortho recommended amputation --> She is to let them know and if agreeable would make NPO Currently on Heparin SQ for DVT prophylaxis (changed from ortho order for Lovenox in pt on HD) (2) Sepsis: Plan: 2nd to R knee infection (3) Dehiscence of wound: Plan: Presents with yet another recurrence of wound dehiscence of the right knee and reported fevers at dialysis, but is afebrile here but took Tylenol prior to admission No leukocytosis, vital signs are stable ESR and CRP are elevated 88 & 31.1 respectively Chest x-ray with evidence of volume overload but no pneumonia and no symptoms of pneumonia UA ordered but not collected and she makes minimal urine Does have a sacral wound but it does not appear infected s/p Incision and drainage extremity right knee, extensive debridement right k nee, removal of implant from right patella, application of wound vac.(Right) - Bean Fritz MD. EBL 50cc. Bcx as above, repeat pending --> gram negative bacilli Wound cx with same from OR --> monitor Per Dr Ly, full thickness defect and below VAC sponder is distal femur. Best interest of patient to have amputation of R leg with hope of getting to heal. Not candidate for skin graft or rotational flaps Pain controlled with tylenol/tramadol Wound RN consulted See above under Bacteremia (4) Anemia: Plan: Hemoglobin low at 8.9, managed by nephrology with periodic Epogen and IV iron Hgb dropped to 6.8 post op --> discussed with nephro and ordered 1u PRBC CBC this afternoon (5) End-stage renal disease on hemodialysis: Plan: Consult nephrology for inpatient hemodialysis management Her dialysis days are Friday and she received dialysis on 07/06 Plans for HD tomorrow (6) CAD (coronary artery disease): Plan: No history of stents Resumed ASA 81mg BID post-operatively by ortho, also on Heparin SQ for DVT proph as above No chest pain reported Continue atorvastatin, isosorbide (7) Depression: Plan: Feeling worse with her mood lately with being in the hospital and rehab so much but did seem ok on exam today, awaiting discussion with her family to make decision on whether or not to proceed with amputation Continue home venlafaxine (8) Dyslipidemia: Plan: Continue statin (9) Heart failure with mid-range ejection fraction: Plan: Last echocardiogram 10/2020 with mild LV dysfunction EF 45-50%, moderate aortic stenosis, moderate MR Managed with dialysis for volume ECHO repeated given +BCx --> LV systolic function normal. No regional wma. Mild concentric LVH. EF 60-65%. Severe valvular aortic stenosis. Mild MR. NO VALVULAR vegetation identified. Compared to October 2020, minor progression in aortic stenosis. (10) Hypertension: Plan: Continue home medications of hydralazine, isosorbide, amlodipine (11) Moderate calcific aortic stenosis: Plan: As above, moderate on last echocardiogram --> now SEVERE. Cautious IVF (12) Infection of right knee: Plan: as above Conditional code-wants CPR but no intubation or artificial ventilation DVT prophylaxis SCD to the left lower extremity only. Heparin SQ for DVT prophylaxis Plan: wound vac placed in OR, wound RN consulted Knee cx and blood cx with same. repeat bcx pending 1u PRBC today, venofer + EPO tomorrow per Nephrology, HD in AM would consult ID in AM once cx finalized Possible need for amputation if patient agreeable Admission and Anticipated Discharge Date Admission Date: July 06, 2021 Supervising Physician Co-Signing Physician Notes PA Supervision Note: I did not personally see or examine the patient today, but I verified all tinajero points of DELL Mcnair's assessment and plan with the following exceptions/additions: Infective endocarditis highly unlikely but if this is Pseudomonas, there is a small chance of such. Agree with waiting on culture results until available prior to consulting ID. Subjective Patient evaluated this afternoon. Slightly depressed about possible need for amputation as discussed by Dr Ly this morning. She is unsure if she wants to proceed with procedure or not and is awaiting call with family to discuss here around 1pm with all of her children. No fever/chills. No chest pain. On nasal cannula but denied increased shortness of breath. Reviewed hgb and discussed with Dr Schneider and ordered 1u PRBC. Questions/concerns addressed at this time. Review of Systems Review of Systems: All systems reviewed & are unremarkable except as noted in HPI & below Physical Exam Constitutional: WD/WN, vitals as above (NAD, sitting up in chair eating lunch, waiting for family to call) Eyes: anicteric, pupils equal and reactive ENMT: external ear and nose normal, oropharynx normal Neck: trachea midline, no thyromegaly Respiratory: normal respiratory effort, lungs clear to auscultation (diminished in the bases, on 2L NC with SpO2 96%) Cardiovascular: Rate/Rhythm: regular rate and regular rhythm Heart Sounds: + murmur (3/6 IWONA at RUSB) Vessels: dorsalis pedis pulses present (1+ bilaterally) Extremities: no edema Chest (Breasts): Chest: normal inspection of chest Gastrointestinal (Abdomen): normal bowel sounds, soft, nontender, no hepatosplenomegaly Musculoskeletal: Extremities: no cyanosis and no clubbing R leg with dressing/amarilys wrap and immobilizer. Wound vac in place. Dressing previously opened by ortho (6x7cm Vac sponge over central lateral aspect of knee wound with associated redness). b/l neuropathy Neurologic: moves all extremities and awake; no focal motor deficits Psychiatric: alert,oriented x 3 Lymphatic: no lymphedema Results & Data Results & Data ([facility]) Vital Signs (Past 12 Hours) Vital Signs Temp Pulse Resp BP Pulse Ox 07/08/21 08:12 37.1 C 85 16 147/63 H 90 07/08/21 03:07 36.8 C 86 17 153/63 H 92 07/07/21 22:49 36.9 C 93 H 18 143/64 H 96 Laboratory Results 07/08/21 07/08/21 07/08/21 Range/Units Unknown 12:19 08:04 WBC (4.8-10.8) K/uL RBC (4.2-5.4) M/uL Hgb (12.0-16.0) g/dL Hct (37-47) % MCV (80-100) fL MCH (25-34) pg MCHC (32-36) g/dL RDW Std Deviation (36.4-46.3) fL RDW Coeff of Chris (11.5-14.5) % Plt Count (130-400) K/uL MPV (7.4-10.4) fL Immature Gran % (Auto) % Neut % (Auto) % Lymph % (Auto) % Cecil % (Auto) % Eos % (Auto) % Baso % (Auto) % Neut # (Auto) (1.4-6.5) K/uL Lymph # (Auto) (1.2-3.4) K/uL Cecil # (Auto) (0.11-0.59) K/uL Eos # (Auto) (0-0.5) K/uL Baso # (Auto) (0-0.2) K/uL Immature Gran # (Auto) (0.00-0.02) K/uL Polychromasia Sodium (136-145) mmol/L Potassium (3.5-5.1) mmol/L Chloride (98-107) mmol/L Carbon Dioxide (21-32) mmol/L Anion Gap (3-11) BUN (6-23) mg/dl Creatinine (0.6-1.2) mg/dl Est Cr Clr Drug Dosing ml/min Est GFR ( Amer) ml/min Est GFR (Non-Af Amer) ml/min BUN/Creatinine Ratio (10-20) Glucose (70-99(Fasting)) mg/dl POC Glucose 225 H 103 H (70-99) mg/dl Calcium (8.5-10.1) mg/dl Iron 11 L (35-150) mcg/dl TIBC 125 L (250-450) mcg/dl Unsaturated IBC 114 L (155-355) mcg/dl Transferrin % Sat 9 L (15-50) % Ferritin 2464.0 H (8-388) ng/ml Total Bilirubin (0.2-1.0) mg/dl AST (13-39) U/L ALT (7-52) U/L Alkaline Phosphatase (34-104) U/L C-Reactive Protein (0-0.5) mg/dl Total Protein (6.0-8.3) gm/dl Albumin (3.4-5.0) gm/dl Globulin (2.5-4.0) gm/dl Albumin/Globulin Ratio (0.9-2) Random Vancomycin (10-20) mcg/ml Blood Type Antibody Screen Crossmatch 07/08/21 07/08/21 07/08/21 Range/Units 07:00 07:00 07:00 WBC 8.09 (4.8-10.8) K/uL RBC 2.49 L (4.2-5.4) M/uL Hgb 6.8 L* (12.0-16.0) g/dL Hct 23.3 L (37-47) % MCV 93.6 (80-100) fL MCH 27.3 (25-34) pg MCHC 29.2 L (32-36) g/dL RDW Std Deviation 55.9 H (36.4-46.3) fL RDW Coeff of Chris 16.4 H (11.5-14.5) % Plt Count 237 (130-400) K/uL MPV 9.2 (7.4-10.4) fL Immature Gran % (Auto) 0.2 % Neut % (Auto) 68.8 % Lymph % (Auto) 10.1 % Cecil % (Auto) 16.9 % Eos % (Auto) 3.5 % Baso % (Auto) 0.5 % Neut # (Auto) 5.56 (1.4-6.5) K/uL Lymph # (Auto) 0.82 L (1.2-3.4) K/uL Cecil # (Auto) 1.37 H (0.11-0.59) K/uL Eos # (Auto) 0.28 (0-0.5) K/uL Baso # (Auto) 0.04 (0-0.2) K/uL Immature Gran # (Auto) 0.02 (0.00-0.02) K/uL Polychromasia 1+ Sodium 135 L (136-145) mmol/L Potassium 4.5 (3.5-5.1) mmol/L Chloride 98 (98-107) mmol/L Carbon Dioxide 29 (21-32) mmol/L Anion Gap 8 (3-11) BUN 36 H (6-23) mg/dl Creatinine 3.04 H D (0.6-1.2) mg/dl Est Cr Clr Drug Dosing 16.5 ml/min Est GFR ( Amer) 16.3 ml/min Est GFR (Non-Af Amer) 14.1 ml/min BUN/Creatinine Ratio 11.8 (10-20) Glucose 93 (70-99(Fasting)) mg/dl POC Glucose (70-99) mg/dl Calcium 8.8 (8.5-10.1) mg/dl Iron (35-150) mcg/dl TIBC (250-450) mcg/dl Unsaturated IBC (155-355) mcg/dl Transferrin % Sat (15-50) % Ferritin (8-388) ng/ml Total Bilirubin 0.2 (0.2-1.0) mg/dl AST 24 (13-39) U/L ALT 10 (7-52) U/L Alkaline Phosphatase 83 (34-104) U/L C-Reactive Protein (0-0.5) mg/dl Total Protein 5.8 L (6.0-8.3) gm/dl Albumin 2.8 L (3.4-5.0) gm/dl Globulin 3.0 (2.5-4.0) gm/dl Albumin/Globulin Ratio 0.9 (0.9-2) Random Vancomycin 14.3 (10-20) mcg/ml Blood Type Antibody Screen Crossmatch 07/08/21 07/07/21 07/07/21 Range/Units 02:29 20:40 18:25 WBC (4.8-10.8) K/uL RBC (4.2-5.4) M/uL Hgb (12.0-16.0) g/dL Hct (37-47) % MCV (80-100) fL MCH (25-34) pg MCHC (32-36) g/dL RDW Std Deviation (36.4-46.3) fL RDW Coeff of Chris (11.5-14.5) % Plt Count (130-400) K/uL MPV (7.4-10.4) fL Immature Gran % (Auto) % Neut % (Auto) % Lymph % (Auto) % Cecil % (Auto) % Eos % (Auto) % Baso % (Auto) % Neut # (Auto) (1.4-6.5) K/uL Lymph # (Auto) (1.2-3.4) K/uL Cecil # (Auto) (0.11-0.59) K/uL Eos # (Auto) (0-0.5) K/uL Baso # (Auto) (0-0.2) K/uL Immature Gran # (Auto) (0.00-0.02) K/uL Polychromasia Sodium (136-145) mmol/L Potassium (3.5-5.1) mmol/L Chloride (98-107) mmol/L Carbon Dioxide (21-32) mmol/L Anion Gap (3-11) BUN (6-23) mg/dl Creatinine (0.6-1.2) mg/dl Est Cr Clr Drug Dosing ml/min Est GFR ( Amer) ml/min Est GFR (Non-Af Amer) ml/min BUN/Creatinine Ratio (10-20) Glucose (70-99(Fasting)) mg/dl POC Glucose 82 129 H (70-99) mg/dl Calcium (8.5-10.1) mg/dl Iron (35-150) mcg/dl TIBC (250-450) mcg/dl Unsaturated IBC (155-355) mcg/dl Transferrin % Sat (15-50) % Ferritin (8-388) ng/ml Total Bilirubin (0.2-1.0) mg/dl AST (13-39) U/L ALT (7-52) U/L Alkaline Phosphatase (34-104) U/L C-Reactive Protein (0-0.5) mg/dl Total Protein (6.0-8.3) gm/dl Albumin (3.4-5.0) gm/dl Globulin (2.5-4.0) gm/dl Albumin/Globulin Ratio (0.9-2) Random Vancomycin (10-20) mcg/ml Blood Type O Positive Antibody Screen NEGATIVE Crossmatch See Detail 07/07/21 07/07/21 07/07/21 Range/Units 17:16 16:07 16:06 WBC 9.75 (4.8-10.8) K/uL RBC 2.73 L (4.2-5.4) M/uL Hgb 7.6 L (12.0-16.0) g/dL Hct 25.5 L (37-47) % MCV 93.4 (80-100) fL MCH 27.8 (25-34) pg MCHC 29.8 L (32-36) g/dL RDW Std Deviation 56.2 H (36.4-46.3) fL RDW Coeff of Chris 16.4 H (11.5-14.5) % Plt Count 234 (130-400) K/uL MPV 9.0 (7.4-10.4) fL Immature Gran % (Auto) 0.3 % Neut % (Auto) 82.7 % Lymph % (Auto) 4.0 % Cecil % (Auto) 11.1 % Eos % (Auto) 1.5 % Baso % (Auto) 0.4 % Neut # (Auto) 8.06 H (1.4-6.5) K/uL Lymph # (Auto) 0.39 L (1.2-3.4) K/uL Cecil # (Auto) 1.08 H (0.11-0.59) K/uL Eos # (Auto) 0.15 (0-0.5) K/uL Baso # (Auto) 0.04 (0-0.2) K/uL Immature Gran # (Auto) 0.03 H (0.00-0.02) K/uL Polychromasia 1+ Sodium 138 (136-145) mmol/L Potassium 4.0 (3.5-5.1) mmol/L Chloride 101 (98-107) mmol/L Carbon Dioxide 29 (21-32) mmol/L Anion Gap 8 (3-11) BUN 32 H (6-23) mg/dl Creatinine 2.43 H D (0.6-1.2) mg/dl Est Cr Clr Drug Dosing 20.6 ml/min Est GFR ( Amer) 21.4 ml/min Est GFR (Non-Af Amer) 18.4 ml/min BUN/Creatinine Ratio 13.2 (10-20) Glucose 104 H (70-99(Fasting)) mg/dl POC Glucose 109 H (70-99) mg/dl Calcium 9.1 (8.5-10.1) mg/dl Iron (35-150) mcg/dl TIBC (250-450) mcg/dl Unsaturated IBC (155-355) mcg/dl Transferrin % Sat (15-50) % Ferritin (8-388) ng/ml Total Bilirubin 0.3 (0.2-1.0) mg/dl AST 18 (13-39) U/L ALT 10 (7-52) U/L Alkaline Phosphatase 81 (34-104) U/L C-Reactive Protein 30.12 H (0-0.5) mg/dl Total Protein 5.9 L (6.0-8.3) gm/dl Albumin 2.8 L (3.4-5.0) gm/dl Globulin 3.1 (2.5-4.0) gm/dl Albumin/Globulin Ratio 0.9 (0.9-2) Random Vancomycin (10-20) mcg/ml Blood Type Antibody Screen Crossmatch Diagnostic Findings Knee X-Ray 07/07/21 09:00 FL knee RT 1 or 2V CLINICAL HISTORY: RIGHT KNEE HARDWARE REMOVAL COMPARISON STUDY: Right knee 07/06/2021. FLUOROSCOPY TIME: 6 seconds. FINDINGS: 5 fluoroscopic spot images of the right knee demonstrate removal of the patellar hardware. IMPRESSION: Fluoroscopic assistance provided for removal of the patellar hardware ACT 112: Negative or not required by law. Electronically signed by: Carlito Eugene M.D. 07/07/2021 3:40 PM PG Care Time/CCT Total # of Minutes Spent Total Time Spent with Patient: Total time spent is greater than 50% in coordination of care (as documented) at patient's floor/unit and/or counseling patient: Coding Level of Care Code 35266 Subseq Hosp Care Lvl 3 Diagnoses Dehiscence of wound T81.30XA Anemia N18.6; D63.1; Z99.2 Anemia type: due to chronic kidney disease Chronic kidney disease stage: on chronic dialysis End-stage renal disease on hemodialysis N18.6; Z99.2 CAD (coronary artery disease) I25.10 Depression F32.9 Dyslipidemia E78.5 Heart failure with mid-range ejection fraction I50.9 Hypertension I10 Hypertension type: unspecified Moderate calcific aortic stenosis I35.0 Sepsis A41.9 Sepsis acute organ dysfunction status: unspecified Sepsis type: sepsis due to unspecified organism Infection of right knee M00.9 Bacteremia R78.81 (1) Anemia Anemia type: due to chronic kidney disease Chronic kidney disease stage: on chronic dialysis Qualified Code(s): N18.6 - End stage renal disease; D63.1 - Anemia in chronic kidney disease; Z99.2 - Dependence on renal dialysis (2) Sepsis Sepsis acute organ dysfunction status: unspecified Sepsis type: sepsis due to unspecified organism Qualified Code(s): A41.9 - Sepsis, unspecified organism (3) Hypertension Hypertension type: unspecified Qualified Code(s): I10 - Essential (primary) hypertension
--- NOTE | 2021-07-08 12:26 | Pharmacy Report ---
Pharmacy Abx Initial Consult - Date of Service July 08, 2021 - Pharmacy Dosing Scope Date of Consult: 07/07/21 Consultation requested by: Dr. Ascencio Pharmacy is consulted to initiate vancomycin IV/PO dosing therapy, order appropriate labs and adjust drug dose/frequency. - Subjective The patient is a 80 year old F admitted on 07/06/21 21:04. - Objective Height: 5 ft 6 in Weight: 82.3 kg Vital Signs (Past 12hrs): Vital Signs Temp Pulse Pulse Resp BP BP Pulse Ox 07/08/21 10:56 37.1 C 87 18 147/64 H 95 07/08/21 10:26 36.9 C 85 18 152/57 H 96 07/08/21 10:12 37 C 89 18 130/60 93 07/08/21 10:11 36.9 C 87 18 143/61 H 94 07/08/21 09:47 36.8 C 86 18 130/65 90 07/08/21 08:12 37.1 C 85 16 147/63 H 90 07/08/21 03:07 36.8 C 86 17 153/63 H 92 Lab Results (24hrs): Laboratory Tests (24 Hours) 07/08/21 07/08/21 07/08/21 07:00 07:00 07:00 WBC 8.09 Neut # (Auto) 5.56 Creatinine 3.04 H D Est Cr Clr Drug Dosing 16.5 C-Reactive Protein Random Vancomycin 14.3 07/07/21 07/07/21 16:07 16:06 WBC 9.75 Neut # (Auto) 8.06 H Creatinine 2.43 H D Est Cr Clr Drug Dosing 20.6 C-Reactive Protein 30.12 H Random Vancomycin Micro Results: 07/07/21 11:57 Gram Stain - Final Knee,Right 07/07/21 18:25 Aerobic Blood Culture - Pending Blood Anaerobic Blood Culture - Pending 07/07/21 18:28 Aerobic Blood Culture - Pending Blood Anaerobic Blood Culture - Pending - Assessment & Plan Assessment * 80 year old F receiving vanc + cefepime for R knee infection * Gram negative bacilli found in blood and R knee cultures * Hx of e. faecalis in May 2021 (for which she was receiving vancomycin prior to current hospital admission) * To OR yesterday for I&D with Dr. Fritz * PMH includes end stage renal disease on HD. Typical HD session MWF. Plan Vancomycin IV * Random level upon admission 16.3 mg/ml * Random level ordered for 07/09 with AM labs to guide post HD dosing * When patient was admitted in May, she required vancomycin 1250mg IV post HD Cefepime * Added for pseudomonal coverage * Approximately 68% of the total amount of cefepime present in the body at the start of dialysis will be removed during a 3-hour dialysis period. Administer doses at the same time each day and after the completion of hemodialysis on hemodialysis days. * 1g IV q24h dosed appropriately for HD Pharmacy will continue to follow and will adjust dose/frequency as necessary. Thank you.
--- NOTE | 2021-07-08 12:33 | XCELERA ---
[id number]
[2021-07-08] MEDS: POLYETHYLENE (MIRALAX) 17 GM PACK PO PRN (12:42)
--- NOTE | 2021-07-08 13:32 | Nephrology Progress Note ---
Date of Service July 08, 2021 Assessment & Plan (1) End-stage renal disease on hemodialysis: Plan: HD MWF. Volume status acceptable. Clearances have been appropriate. Electrolytes controlled. Minerva has been tolerating HD well. AVF functioning well. Medications appropriately dosed for IHD. No changes at this time. (2) Anemia: Plan: 1 u PRBC transfusion support provided today. Additional PRBC transfusion support and Epogen to be provided with HD tomorrow PRN. Monitor H/H daily. (3) Infection of right knee: Plan: Remains on vancomycin with HD. Cefepime provided yesterday. Cultures pending. s/p debridement and hardware removal 07/07. Admission and Anticipated Discharge Date Admission Date: July 06, 2021 Subjective No acute events overnight. Pain reasonably controlled. No fevers or chills. Struggling with idea of possible amputation. Did not sleep last night. Family meeting with ortho scheduled for this afternoon. I discussed the plan of care with Aissatou Mcnair PA-C. Review of Systems Review of Systems: All systems reviewed & are unremarkable except as noted in HPI & below Physical Exam Constitutional: well developed; no acute distress Eyes: no scleral abnormality and no corneal abnormality ENMT: Mouth: no oral mucosal abnormality and oral mucous membranes not dry Neck: normal visual inspection and trachea midline Respiratory: normal respiratory effort Auscultation: lungs clear to auscultation bilaterally Cardiovascular: Rate/Rhythm: regular rate Heart Sounds: normal S1, normal S2 and + murmur Extremities: + AV fistula; no edema Musculoskeletal: Extremities: no cyanosis and no clubbing Skin: normal turgor; no lesions Neurologic: Motor/Sensory: no tremor and no asterixis Psychiatric: Orientation: alert and oriented x 3 Results & Data ([facility]) Vital Signs (Past 12 Hours) Vital Signs Temp Pulse Pulse Resp BP BP Pulse Ox 07/08/21 11:56 37.0 C 83 16 136/57 L 91 07/08/21 10:56 37.1 C 87 18 147/64 H 95 07/08/21 10:26 36.9 C 85 18 152/57 H 96 07/08/21 10:12 37 C 89 18 130/60 93 07/08/21 10:11 36.9 C 87 18 143/61 H 94 07/08/21 09:47 36.8 C 86 18 130/65 90 07/08/21 08:12 37.1 C 85 16 147/63 H 90 07/08/21 03:07 36.8 C 86 17 153/63 H 92 Laboratory Results Laboratory Results - last 24 hr 07/07/21 07/07/21 07/07/21 13:38 16:06 16:07 WBC 9.75 RBC 2.73 L Hgb 7.6 L Hct 25.5 L MCV 93.4 MCH 27.8 MCHC 29.8 L RDW Std Deviation 56.2 H RDW Coeff of Chris 16.4 H Plt Count 234 MPV 9.0 Immature Gran % (Auto) 0.3 Neut % (Auto) 82.7 Lymph % (Auto) 4.0 [place] % (Auto) 11.1 Eos % (Auto) 1.5 Baso % (Auto) 0.4 Neut # (Auto) 8.06 H Lymph # (Auto) 0.39 L [place] # (Auto) 1.08 H Eos # (Auto) 0.15 Baso # (Auto) 0.04 Immature Gran # (Auto) 0.03 H Polychromasia 1+ Sodium 138 Potassium 4.0 Chloride 101 Carbon Dioxide 29 Anion Gap 8 BUN 32 H Creatinine 2.43 H D Est Cr Clr Drug Dosing 20.6 Est GFR ( Amer) 21.4 Est GFR (Non-Af Amer) 18.4 BUN/Creatinine Ratio 13.2 Glucose 104 H POC Glucose 109 H Calcium 9.1 Iron TIBC Unsaturated IBC Transferrin % Sat Ferritin Total Bilirubin 0.3 AST 18 ALT 10 Alkaline Phosphatase 81 C-Reactive Protein 30.12 H Total Protein 5.9 L Albumin 2.8 L Globulin 3.1 Albumin/Globulin Ratio 0.9 Random Vancomycin Blood Type Antibody Screen Crossmatch 07/07/21 07/07/21 07/07/21 17:16 18:25 20:40 WBC RBC Hgb Hct MCV MCH MCHC RDW Std Deviation RDW Coeff of Chris Plt Count MPV Immature Gran % (Auto) Neut % (Auto) Lymph % (Auto) [place] % (Auto) Eos % (Auto) Baso % (Auto) Neut # (Auto) Lymph # (Auto) [place] # (Auto) Eos # (Auto) Baso # (Auto) Immature Gran # (Auto) Polychromasia Sodium Potassium Chloride Carbon Dioxide Anion Gap BUN Creatinine Est Cr Clr Drug Dosing Est GFR ( Amer) Est GFR (Non-Af Amer) BUN/Creatinine Ratio Glucose POC Glucose 109 H 129 H Calcium Iron TIBC Unsaturated IBC Transferrin % Sat Ferritin Total Bilirubin AST ALT Alkaline Phosphatase C-Reactive Protein Total Protein Albumin Globulin Albumin/Globulin Ratio Random Vancomycin Blood Type O Positive Antibody Screen NEGATIVE Crossmatch See Detail 07/08/21 07/08/21 07/08/21 02:29 07:00 07:00 WBC 8.09 RBC 2.49 L Hgb 6.8 L* Hct 23.3 L MCV 93.6 MCH 27.3 MCHC 29.2 L RDW Std Deviation 55.9 H RDW Coeff of Chris 16.4 H Plt Count 237 MPV 9.2 Immature Gran % (Auto) 0.2 Neut % (Auto) 68.8 Lymph % (Auto) 10.1 [place] % (Auto) 16.9 Eos % (Auto) 3.5 Baso % (Auto) 0.5 Neut # (Auto) 5.56 Lymph # (Auto) 0.82 L [place] # (Auto) 1.37 H Eos # (Auto) 0.28 Baso # (Auto) 0.04 Immature Gran # (Auto) 0.02 Polychromasia 1+ Sodium Potassium Chloride Carbon Dioxide Anion Gap BUN Creatinine Est Cr Clr Drug Dosing Est GFR ( Amer) Est GFR (Non-Af Amer) BUN/Creatinine Ratio Glucose POC Glucose 82 Calcium Iron TIBC Unsaturated IBC Transferrin % Sat Ferritin Total Bilirubin AST ALT Alkaline Phosphatase C-Reactive Protein Total Protein Albumin Globulin Albumin/Globulin Ratio Random Vancomycin 14.3 Blood Type Antibody Screen Crossmatch 07/08/21 07/08/21 07/08/21 07:00 08:04 12:19 WBC RBC Hgb Hct MCV MCH MCHC RDW Std Deviation RDW Coeff of Chris Plt Count MPV Immature Gran % (Auto) Neut % (Auto) Lymph % (Auto) [place] % (Auto) Eos % (Auto) Baso % (Auto) Neut # (Auto) Lymph # (Auto) [place] # (Auto) Eos # (Auto) Baso # (Auto) Immature Gran # (Auto) Polychromasia Sodium 135 L Potassium 4.5 Chloride 98 Carbon Dioxide 29 Anion Gap 8 BUN 36 H Creatinine 3.04 H D Est Cr Clr Drug Dosing 16.5 Est GFR ( Amer) 16.3 Est GFR (Non-Af Amer) 14.1 BUN/Creatinine Ratio 11.8 Glucose 93 POC Glucose 103 H 225 H Calcium 8.8 Iron TIBC Unsaturated IBC Transferrin % Sat Ferritin Total Bilirubin 0.2 AST 24 ALT 10 Alkaline Phosphatase 83 C-Reactive Protein Total Protein 5.8 L Albumin 2.8 L Globulin 3.0 Albumin/Globulin Ratio 0.9 Random Vancomycin Blood Type Antibody Screen Crossmatch 07/08/21 Unknown WBC RBC Hgb Hct MCV MCH MCHC RDW Std Deviation RDW Coeff of Chris Plt Count MPV Immature Gran % (Auto) Neut % (Auto) Lymph % (Auto) [place] % (Auto) Eos % (Auto) Baso % (Auto) Neut # (Auto) Lymph # (Auto) [place] # (Auto) Eos # (Auto) Baso # (Auto) Immature Gran # (Auto) Polychromasia Sodium Potassium Chloride Carbon Dioxide Anion Gap BUN Creatinine Est Cr Clr Drug Dosing Est GFR ( Amer) Est GFR (Non-Af Amer) BUN/Creatinine Ratio Glucose POC Glucose Calcium Iron 11 L TIBC 125 L Unsaturated IBC 114 L Transferrin % Sat 9 L Ferritin 2464.0 H Total Bilirubin AST ALT Alkaline Phosphatase C-Reactive Protein Total Protein Albumin Globulin Albumin/Globulin Ratio Random Vancomycin Blood Type Antibody Screen Crossmatch PG Care Time/CCT Total # of Minutes Spent Total Time Spent with Patient: Total time spent is greater than 50% in coordination of care (as documented) at patient's floor/unit and/or counseling patient: Coding Level of Care Code 08342 Subseq Hosp Care Lvl 3 Diagnoses End-stage renal disease on hemodialysis N18.6; Z99.2 Anemia N18.6; D63.1; Z99.2 Anemia type: due to chronic kidney disease Chronic kidney disease stage: on chronic dialysis Infection of right knee M00.9 (1) Anemia Anemia type: due to chronic kidney disease Chronic kidney disease stage: on chronic dialysis Qualified Code(s): N18.6 - End stage renal disease; D63.1 - Anemia in chronic kidney disease; Z99.2 - Dependence on renal dialysis
--- NOTE | 2021-07-08 16:36 | Progress Notes ---
DATE OF SERVICE: 07/08/2021 Sonam is resting comfortably in bed. No significant complaints other than some intermittent pain if she moves in the right leg area. She is afebrile. Her vital signs are stable. Her white count today is 8, hemoglobin is 7, hematocrit 23. She is chronically anemic. Platelets are 237. Her INR is noted. Leg dressing and brace and wound VAC in place. She can plantarflex her foot with 4/5 strength, but h as no active dorsiflexion. She does not have a palpable dorsalis pedis pulse. Her foot has capillar y refill less than 2 seconds. I discussed with her my findings relative to surgery yesterday. She has had a discussion with Dr. Rubén xie and her family and has decided to proceed with an above-knee amputation. Unfortunately, there are limited options to address the soft tissue defect in her knee. 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 She is not a candidate for sophisticated soft tissue cover age such as free flaps or rotational flaps. This would be a long drawn out process if so. Transfemo ral amputation offers her a solution that addresses this problem and, in the long run, probably prese rves very similar function. Dr. Ly can direct her orthopedic care at this time and I will see h er as necessary. Job ID: [id number]
[2021-07-08] MEDS: CEFEPIME 1,000 MG in SYRINGE 0 ML IV SCH (17:53)
[2021-07-08] MEDS: ATORVASTATIN 40 MG TAB PO SCH (23:43)
[2021-07-08] MEDS: INSULIN GLARGINE SOLOSTAR 100 UNITS/ML 3 ML PEN SQ SCH (23:46)
[2021-07-09] MEDS ORDERED: Nursing to Pharmacy Communication SCH ×2 (03:45→23:00)
[2021-07-09] MEDS: INSULIN ASPART PER UNIT SC SCH ×4 (06:02→23:56)
--- NOTE | 2021-07-09 06:33 | Orthopedic Progress Note ---
Date of Service July 09, 2021 Assessment & Plan (1) Infection of right knee: Unfortunately it is necessary for us to proceed with an above-knee amputation of the right knee. With her loss of extension mechanism, as well as the soft tissue loss and infection, is really best for her overall health to proceed with an above-knee amputation of the right leg. She would like to proceed. She understands the risk, benefits, and alternatives to procedure. Questions were answered at bedside. Her H&H is still low. The medicine team will optimize her throughout the day today. She is also scheduled to have hemodialysis today. I plan on doing the amputation around 630 this evening pending medical clearance. She has been placed on the OR schedule. Jason Masters was seen and examined at bedside this morning. I had a discussion yesterday with her family, and the decision has been made for an above-knee amputation of the right leg. She has been n.p.o. past midnight. We are hoping to do the amputation later this evening. Review of Systems All systems reviewed & are unremarkable except as noted in HPI & below. Physical Exam On physical examination of the right leg, the dressing and knee immobilizer intact. Results & Data Results & Data Laboratory Results . Diagnostic Findings . PG Care Time/CCT Total # of Minutes Spent Total Time Spent with Patient: Total time spent is greater than 50% in coordination of care (as documented) at patient's floor/unit and/or counseling patient: Coding Level of Care Code 74280 Subseq Hosp Care Lvl 2 (57 - DECISION FOR SURGERY) Diagnoses Infection of right knee M00.9
[2021-07-09] MEDS ORDERED: EPOETIN ALFA 20,000 UNITS/ML VIAL IV ONE (07:00)
[2021-07-09] MEDS ORDERED: IRON SUCROSE 100 MG in SYRINGE 0 ML IV ONE (07:00)
[2021-07-09 08:03] LABS: Hematocrit (blood only) 25.8 % (37-47); Hemoglobin 7.7 g/dL (12.0-16.0); Mean Corpuscular Hemoglobin 27.2 pg (25-34); Mean Corpuscular Hgb Conc 29.8 g/dL (32-36); Mean Corpuscular Volume 91.2 fL (80-100); Mean Platelet Volume 9.3 fL (7.4-10.4); Platelet Count 250 K/uL (130-400); RDW Coefficient of Variation 16.2 % (11.5-14.5); RDW Standard Deviation 54.5 fL (36.4-46.3); Red Blood Count 2.83 M/uL (4.2-5.4); White Blood Count 9.08 K/uL (4.8-10.8)
[2021-07-09] MEDS: ACETAMINOPHEN 325 MG TAB PO PRN (08:25)
[2021-07-09] MEDS: CALCIUM 600MG + VIT D 400 IU TAB PO SCH (08:26)
[2021-07-09] MEDS: amLODIPine BESYLATE 5 MG TAB PO SCH (08:26)
[2021-07-09] MEDS: ASPIRIN 81 MG ECTAB PO SCH (08:26)
[2021-07-09] MEDS: hydrALAZINE TAB 50 MG TAB PO SCH ×2 (08:26→13:33)
[2021-07-09] MEDS: ISOSORBIDE MONO EXTENDED REL 60 MG TABCR PO SCH (08:26)
[2021-07-09] MEDS: CHOLECALCIFEROL 1,000 UNITS 25 MCG TAB PO SCH (08:26)
[2021-07-09] MEDS: ASCORBIC ACID 500 MG TAB PO SCH (08:26)
[2021-07-09] MEDS: VENLAFAXINE HCL XR 150 MG CAPXR PO SCH (08:26)
[2021-07-09] MEDS: MULTIVITAMIN TAB PO SCH (08:26)
[2021-07-09 08:44] LABS: Albumin Globulin Ratio 0.9 (0.9-2); Albumin Level 2.8 gm/dl (3.4-5.0); BUN Creatinine Ratio 12.6 (10-20); Bilirubin,Total 0.3 mg/dl (0.2-1.0); Calcium 8.8 mg/dl (8.5-10.1); Creatinine Clr Calc Pharmacy 13.2 ml/min; Est GFR (African American) 12.4 ml/min; Est GFR (Non-African American) 10.7 ml/min; Globulin 3.2 gm/dl (2.5-4.0); Phosphorus 4.1 mg/dl (2.5-4.9); Potassium 4.4 mmol/L (3.5-5.1)
[2021-07-09] MEDS ORDERED: SODIUM CHLORIDE 0.9% 250 ML IV PRN (09:00)
[2021-07-09] MEDS: GLUCOSE 40% GEL 15 GM TUBE PO PRN ×2 (12:05→18:04)
--- NOTE | 2021-07-09 12:21 | Pharmacy Report ---
Pharmacy Vanc [facility] Short Note - Date of Service July 09, 2021 - Assessment & Plan Assessment 80 year old F receiving Vancomycin and Cefepime for treatment of right knee infection/osteomyelitis/bacteremia. * Patient has been on Vancomycin following HD on MWF since 05/31/21. Was to receive 6 weeks of Vanc for Enterococcus faecalis that grew in knee cultures. Last day = 07/12/21 (). * Now re-admitted w/ pansensitive Enterobacter cloacae growing in knee and blood cultures. * Recommended transition to ceftriaxone today but primary team would like Aspen JONES's input before changing any abx. * Pre-HD random was at goal this morning. Patient to go to OR today for R AKA. * Will give Vanc dose after HD and before OR today. Plan Vancomycin * Random level of 13.4 mcg/mL is therapeutic * Will give Vancomycin 1250 mg IV x 1 following HD today but prior to going to OR * Ordered next random level prior to HD on Friday (07/11/21). Cefepime * Continue 1 g IV every 24 hour following HD Pharmacy will continue to follow and will adjust dose/frequency as necessary. Thank you.
--- NOTE | 2021-07-09 12:52 | Nephrology Progress Note ---
Date of Service July 09, 2021 Assessment & Plan (1) End-stage renal disease on hemodialysis: Plan: HD MWF. Tolerating HD well. Orders for treatment were entered into the EHR and reviewed with the dialysis nurse. AVF functioning well. Clearance at goal. Qb appropriate. Medications appropriately dosed for IHD. (2) Anemia: Plan: 1 u PRBC transfusion support provided yesterday. Additional 2 u PRBC transfusion support + Epogen provided with HD today. Monitor H/H daily. (3) Infection of right knee: Plan: Remains on vancomycin with HD + cefepime. Cultures pending. s/p debridement and hardware removal 07/07. Admission and Anticipated Discharge Date Admission Date: July 06, 2021 Subjective No acute events overnight. Minerva has decided to proceed with AKA. She was seen and evaluated during HD today. She is tolerating dialysis well. Review of Systems Review of Systems: All systems reviewed & are unremarkable except as noted in HPI & below Physical Exam Constitutional: well developed; no acute distress Eyes: no scleral abnormality and no corneal abnormality ENMT: Mouth: no oral mucosal abnormality and oral mucous membranes not dry Neck: normal visual inspection and trachea midline Respiratory: normal respiratory effort Auscultation: lungs clear to auscul tation bilaterally Cardiovascular: Rate/Rhythm: regular rate Heart Sounds: normal S1, normal S2 and + murmur Extremities: + AV fistula; no edema Musculoskeletal: Extremities: no cyanosis and no clubbing Skin: normal turgor; no lesions Neurologic: Motor/Sensory: no tremor and no asterixis Psychiatric: Orientation: alert and oriented x 3 Results & Data ([facility] [place]) Vital Signs (Past 12 Hours) Vital Signs Temp Pulse Pulse Pulse Resp BP BP 07/09/21 12:30 83 163/74 H 07/09/21 12:15 84 173/88 H 07/09/21 12:00 56 L 142/78 H 07/09/21 11:45 83 174/78 H 07/09/21 11:30 37.1 C 78 16 144/66 H 07/09/21 11:15 72 135/61 07/09/21 11:00 81 141/63 H 07/09/21 10:45 37.0 C 69 18 136/100 07/09/21 10:38 37.0 C 85 16 137/62 07/09/21 10:30 83 137/62 07/09/21 10:15 86 143/62 H 07/09/21 10:00 83 129/56 L 07/09/21 09:44 37.1 C 85 16 133/59 L 07/09/21 09:40 85 133/59 L 07/09/21 09:20 85 151/62 H 07/09/21 09:13 37.1 C 87 07/09/21 07:39 37 C 85 16 150/61 H Pulse Ox 07/09/21 12:30 07/09/21 12:15 07/09/21 12:00 07/09/21 11:45 07/09/21 11:30 07/09/21 11:15 07/09/21 11:00 07/09/21 10:45 07/09/21 10:38 07/09/21 10:30 07/09/21 10:15 07/09/21 10:00 07/09/21 09:44 07/09/21 09:40 07/09/21 09:20 07/09/21 09:13 07/09/21 07:39 94 Laboratory Results Laboratory Results - last 24 hr 07/07/21 07/08/21 07/08/21 18:25 17:05 20:31 WBC RBC Hgb Hct MCV MCH MCHC RDW Std Deviation RDW Coeff of Chris Plt Count MPV Sodium Potassium Chloride Carbon Dioxide Anion Gap BUN Creatinine Est Cr Clr Drug Dosing Est GFR ( Amer) Est GFR (Non-Af Amer) BUN/Creatinine Ratio Glucose POC Glucose 95 113 H Calcium Phosphorus Total Bilirubin AST ALT Alkaline Phosphatase Total Protein Albumin Globulin Albumin/Globulin Ratio Nasal Screen MRSA (PCR) Random Vancomycin Blood Type O Positive Antibody Screen NEGATIVE Crossmatch See Detail 07/08/21 07/09/21 07/09/21 Unknown 05:56 07:38 WBC RBC Hgb Hct MCV MCH MCHC RDW Std Deviation RDW Coeff of Chris Plt Count MPV Sodium Potassium Chloride Carbon Dioxide Anion Gap BUN Creatinine Est Cr Clr Drug Dosing Est GFR ( Amer) Est GFR (Non-Af Amer) BUN/Creatinine Ratio Glucose POC Glucose 79 Calcium Phosphorus Total Bilirubin AST ALT Alkaline Phosphatase Total Protein Albumin Globulin Albumin/Globulin Ratio Nasal Screen MRSA (PCR) Negative Random Vancomycin 13.4 Blood Type Antibody Screen Crossmatch 07/09/21 07/09/21 07/09/21 07:38 07:38 09:30 WBC 9.08 RBC 2.83 L Hgb 7.7 L Hct 25.8 L MCV 91.2 MCH 27.2 MCHC 29.8 L RDW Std Deviation 54.5 H RDW Coeff of Chris 16.2 H Plt Count 250 MPV 9.3 Sodium 133 L Potassium 4.4 Chloride 97 L Carbon Dioxide 26 Anion Gap 10 BUN 48 H Creatinine 3.80 H D Est Cr Clr Drug Dosing 13.2 Est GFR ( Amer) 12.4 Est GFR (Non-Af Amer) 10.7 BUN/Creatinine Ratio 12.6 Glucose 70 POC Glucose 90 Calcium 8.8 Phosphorus 4.1 Total Bilirubin 0.3 AST 26 ALT 6 L Alkaline Phosphatase 96 Total Protein 6.0 Albumin 2.8 L Globulin 3.2 Albumin/Globulin Ratio 0.9 Nasal Screen MRSA (PCR) Random Vancomycin Blood Type Antibody Screen Crossmatch 07/09/21 07/09/21 07/09/21 11:41 12:11 12:16 WBC RBC Hgb Hct MCV MCH MCHC RDW Std Deviation RDW Coeff of Chris Plt Count MPV Sodium Potassium Chloride Carbon Dioxide Anion Gap BUN Creatinine Est Cr Clr Drug Dosing Est GFR ( Amer) Est GFR (Non-Af Amer) BUN/Creatinine Ratio Glucose POC Glucose 71 76 72 Calcium Phosphorus Total Bilirubin AST ALT Alkaline Phosphatase Total Protein Albumin Globulin Albumin/Globulin Ratio Nasal Screen MRSA (PCR) Random Vancomycin Blood Type Antibody Screen Crossmatch PG Care Time/CCT Total # of Minutes Spent Total Time Spent with Patient: Total time spent is greater than 50% in coordination of care (as documented) at patient's floor/unit and/or counseling patient: Coding Level of Care Code 35166 Subseq Hosp Care Lvl 3 Diagnoses End-stage renal disease on hemodialysis N18.6; Z99.2 Anemia N18.6; D63.1; Z99.2 Anemia type: due to chronic kidney disease Chronic kidney disease stage: on chronic dialysis Infection of right knee M00.9 (1) Anemia Anemia type: due to chronic kidney disease Chronic kidney disease stage: on chronic dialysis Qualified Code(s): N18.6 - End stage renal disease; D63.1 - Anemia in chronic kidney disease; Z99.2 - Dependence on renal dialysis
[2021-07-09] MEDS ORDERED: VANCOMYCIN HCL 1,250 MG in SODIUM CHLORIDE 0.9% 250 ML IV ONE (13:00)
[2021-07-09 14:20] LABS: Hematocrit (blood only) 31.6 % (37-47); Mean Corpuscular Hemoglobin 28.3 pg (25-34); Mean Corpuscular Hgb Conc 31.6 g/dL (32-36); Mean Corpuscular Volume 89.5 fL (80-100); Platelet Count 214 K/uL (130-400); RDW Coefficient of Variation 15.9 % (11.5-14.5); RDW Standard Deviation 51.8 fL (36.4-46.3); Red Blood Count 3.53 M/uL (4.2-5.4); White Blood Count 7.99 K/uL (4.8-10.8)
--- NOTE | 2021-07-09 17:02 | Anesthesiology Consultation ---
Date of Service July 09, 2021 Assessment & Plan (1) Encounter for pre-operative examination: Chart Review Chart Review: Acceptable Risk for Surgery and Patient NOT seen in Pre Admission Testing Nephrology note 07/09/21: (1) End-stage renal disease on hemodialysis: Plan: HD MWF. Tolerating HD well. Orders for treatment were entered into the EHR and reviewed with the dialysis nurse. AVF functioning well. Clearance at goal. Qb appropriate. Medications appropriately dosed for IHD. (2) Anemia: Plan: 1 u PRBC transfusion support provided yesterday. Additional 2 u PRBC transfusion support + Epogen provided with HD today. Consults Requested none History Surgery Operation Date: 07/07/21 08:45 Proposed Procedures p Incision and Drainage Right Knee(Right) - Bena Fritz MD Operation Date: 07/09/21 11:30 Proposed Procedures p Right Above Knee Amputation - Heriberto Ly DO Height/Weight Height: 5 ft 6 in Weight: 82.6 kg Allergies Allergy/AdvReac Type Severity Reaction Status Date / Time codeine AdvReac Mild DOES NOT Verified 07/06/21 20:[address] IT MAKES HER FEEL. Medications Home Medications Medication Instructions Recorded Confirmed Last Taken ascorbic acid (vitamin C) 500 mg 500 mg PO QAM tab 12/10/18 07/06/21 07/06/21 tablet polyethylene glycol 3350 17 17 gm PO DAILY PRN gm 12/10/18 07/06/21 11/07/20 09:00 gram/dose oral powder venlafaxine 150 mg 150 mg PO QAM cap 12/10/18 07/06/21 07/06/21 capsule,extended release 24 hr calcium carbonate 600 mg-vitamin 2 tab PO QAM 03/09/20 07/06/21 07/06/21 D3 10 mcg (400 unit) chewable tablet (Calcium 600 with Vitamin D3) isosorbide mononitrate 120 mg 120 mg PO QAM #90 tab 10/25/20 07/06/21 07/06/21 tablet,extended release 24 hr amlodipine 5 mg tablet 5 mg PO BID #180 tab 11/23/20 07/06/21 07/06/21 cholecalciferol (vitamin D3) 25 50 mcg PO BID cap 12/27/20 07/06/21 05/30/21 mcg (1,000 unit) capsule hydralazine 50 mg tablet 50 mg PO TID #90 tab 02/28/21 07/06/21 07/06/21 insulin glargine 100 unit/mL (3 23 unit SUBCUT QPM ml 05/10/21 07/06/21 07/05/21 mL) subcutaneous pen (Lantus Solostar U-100 Insulin) multivitamin 1 cap PO DAILY 05/18/21 07/06/21 07/06/21 atorvastatin 80 mg tablet 80 mg PO HS #90 tab 05/29/21 07/06/21 Unknown aspirin 81 mg tablet,delayed 81 mg PO BID #84 tab 06/03/21 07/06/21 Unknown release (Adult Aspirin Regimen) vancomycin 1.25 gram intravenous See Rx Instructions .ROUTE 06/03/21 07/06/21 Unknown solution .COMPLEX 42 Days #6 vial tramadol 50 mg tablet 50 mg PO Q6H PRN #60 tab 06/04/21 07/06/21 07/06/21 vitamins A,C,V-qjvg-uhsova 14,320 1 cap PO BID 06/14/21 07/06/21 07/06/21 unit-226 mg-200 unit capsule (PreserVision AREDS) insulin aspart U-100 100 unit/mL 7 unit SUBCUT TIDM #30 ml 06/22/21 07/06/21 Unknown (3 mL) subcutaneous pen (Novolog Flexpen U-100 Insulin aspart) Active Medications Generic Name Dose Route Start Last Admin Trade Name Freq PRN Reason Stop Dose Admin Acetaminophen 650 mg 07/06/21 23:32 07/09/21 08:25 Acetaminophen 325 Mg Tab PO 08/05/21 23:31 650 mg Q4H PRN Administration pain/fever Amlodipine Besylate 5 mg 07/06/21 23:32 07/09/21 08:26 Amlodipine Besylate 5 Mg Tab PO 08/05/21 23:31 5 mg BID CASA Administration Ascorbic Acid 500 mg 07/07/21 09:00 07/09/21 08:26 Ascorbic Acid 500 Mg Tab PO 08/06/21 08:59 500 mg QAM CASA Administration Aspirin 81 mg 07/07/21 21:00 07/09/21 08:26 Aspirin 81 Mg Ectab PO 08/06/21 20:59 81 mg BID CASA Administration Atorvastatin Calcium 80 mg 07/06/21 23:32 07/08/21 23:43 Atorvastatin 40 Mg Tab PO 08/05/21 23:31 80 mg HS CASA Administration Glucose 15 - 30 gm 07/06/21 23:32 07/09/21 12:05 Glucose 40% Gel 15 Gm Tube PO 08/05/21 23:31 15 gm UD PRN Administration Hypoglycemia Protocol Protocol Heparin Sodium (Porcine) 5,000 units 07/08/21 09:00 07/08/21 08:53 Heparin Sod 5,000 Unit/0.5 Ml Vial SQ 08/07/21 08:59 5,000 units Q12H CASA Administration Hydralazine HCl 50 mg 07/06/21 23:32 07/09/21 13:33 Hydralazine Tab 50 Mg Tab PO 08/05/21 23:31 50 mg TID CASA Administration Cefepime HCl 1,000 mg/ Syringe 11.3 mls @ 5.5 mls/min 07/07/21 18:00 07/08/21 17:53 IV 07/14/21 17:59 5.5 mls/min Q24H CASA Administration Protocol Insulin Aspart 0 units 07/09/21 06:00 07/09/21 11:46 Insulin Aspart Per Unit SC 08/08/21 05:59 Not Given Q6 CASA Insulin Glargine 15 units 07/06/21 23:32 07/08/21 23:46 Insulin Glargine Solostar 100 Units/Ml 3 Ml Pen SQ 08/05/21 23:31 15 units QPM CASA Administration Isosorbide Mononitrate 120 mg 07/07/21 09:00 07/09/21 08:26 Isosorbide [place] Extended Rel 60 Mg Tabcr PO 08/06/21 08:59 120 mg QAM CASA Administration Multivitamins 1 tab 07/07/21 09:00 07/09/21 08:26 Multivitamin Tab PO 08/06/21 08:59 1 tab DAILY CASA Administration Multivitamins/Minerals 2 tab 07/07/21 09:00 07/09/21 08:26 Calcium 600mg + Vit D 400 Iu Tab PO 08/06/21 08:59 2 tab QAM CASA Administration Polyethylene Glycol 17 gm 07/06/21 23:32 07/08/21 12:42 Polyethylene (Miralax) 17 Gm Pack PO 03/27/22 23:31 17 gm DAILY PRN Administration Constipation Tramadol HCl 50 mg 07/06/21 23:32 07/08/21 06:11 Tramadol Hcl 50 Mg Tablet PO 08/05/21 23:31 50 mg Q6H PRN Administration pain Venlafaxine HCl 150 mg 07/07/21 09:00 07/09/21 08:26 Venlafaxine Hcl Xr 150 Mg Capxr PO 08/06/21 08:59 150 mg QAM CASA Administration Vitamin D 1,000 units 07/06/21 23:32 07/09/21 08:26 Cholecalciferol 1,000 Units 25 Mcg Tab PO 08/05/21 23:31 1,000 units BID CASA Administration Past Medical History Medical History Anemia AV fistula LEFT CAD (coronary artery disease) Carotid artery disease less than 50% ICA stenosis per 08/2016 carotid duplex CHF (congestive heart failure) Chronic gastroesophageal reflux disease Chronic kidney disease on HD Depression Diabetic peripheral neuropathy associated with type 2 diabetes mellitus [facility] Dyslipidemia Gallstones Generalized osteoarthritis of multiple sites Graves disease H/O malignant neoplasm of uterine body Hiatal hernia History of kidney stones Hypertension Irregular heart beat metoprolol for this per pt Macular degeneration Moderate calcific aortic stenosis Multinodular goiter (nontoxic) Multiple thyroid nodules Obesity Osteopenia Secondary hyperparathyroidism Sleep apnea No device Type 2 diabetes mellitus with insulin therapy Past Family History Family History Father Diabetes Lung cancer Family history of diabetes mellitus Mother , in a home fire Hypertension Family history of diabetes mellitus Daughter Family history of diabetes mellitus Son Family history of diabetes mellitus Other No family history of adverse response to anesthesia Denies family history of Ovarian cancer Prostate cancer Myocardial infarction Breast cancer Colorectal cancer Past Surgical History Surgical History H/O abdominoplasty H/O basal cell carcinoma excision H/O shoulder surgery Right History of appendectomy History of cataract surgery R/L History of colonoscopy History of esophagogastroduodenoscopy (EGD) History of hip surgery Closed intertrochanteric fracture of left femur 04/10/2021: 02/16/2021: Grade 4 view, MAC#3, ETT#7.0. No issues per anesthesia postop progress note. History of open reduction and internal fixation (ORIF) procedure right patella 05/18/2021: LMA#4 atraumatic + PNB. No issues per anesthesia po stop progress note. History of tonsillectomy History of tooth extraction S/P complete hysterectomy Status post knee surgery 05/31/21 Dr. Heriberto Ly- Incision and Debridement Right Knee, Right Open Reduction Internal Fixation Patella, Hardware Removal(Right) Social History Smoking Status: Former smoker tobacco type: cigarettes Do You Dip or Chew Tobacco: No Hx Alcohol Use: Yes Alcohol type: wine alcohol intake frequency: holidays/special occasions only Hx Substance Use: No substance use type: does not use Physical Exam Vital Signs Last Vital Signs Temp 37.3 C 07/09/21 15:48 Pulse 88 07/09/21 15:48 Resp 16 07/09/21 15:48 BP 133/67 07/09/21 15:48 Pulse Ox 96 07/09/21 15:48 Testing Laboratory Results 07/09/21 13:59 07/09/21 07:38 Blood Type O Positive 07/07/21 18:25 Antibody Screen NEGATIVE 07/07/21 18:25 07/06/21 19:54 Aerobic Blood Culture - Preliminary Blood No growth in Aerobic bottle after 48 hours. Anaerobic Blood Culture - Preliminary Enterobacter cloacae 07/07/21 11:57 Gram Stain - Final Knee,Right Aerobic and Anaerobic Culture - Preliminary Enterobacter cloacae 07/06/21 19:56 Aerobic Blood Culture - Preliminary Blood Enterobacter cloacae Anaerobic Blood Culture - Preliminary No growth in Anaerobic bottle after 48 hours. 07/07/21 18:25 Aerobic Blood Culture - Preliminary Blood No growth in Aerobic bottle after 24 hours. Anaerobic Blood Culture - Preliminary No growth in Anaerobic bottle after 24 hours. 07/07/21 18:28 Aerobic Blood Culture - Preliminary Blood No growth in Aerobic bottle after 24 hours. Anaerobic Blood Culture - Preliminary No growth in Anaerobic bottle after 24 hours. 07/09/21 07/09/21 07/09/21 12:16 12:11 11:41 POC Glucose 72 76 71 07/09/21 07/09/21 09:30 05:56 POC Glucose 90 79 Echocardiogram Date: 07/08/21 LV systolic function is normal. No RWMA Mild LVH EF 60-65% Mild MR No valvular vegetations noted. Severe . Other Testing Other Testing Electrocardiogram Date: 02/15/21 Poor data quality, interpretation may be adversely affected Normal sinus rhythm Normal ECG When compared with ECG of 03-JAN-2021 05:50, Nonspecific T wave abnormality now evident in Lateral leads Echocardiogram Date: 10/23/20 Mild left ventricular systolic dysfunction Mild cLVH Mild left atrial dilatation Normal right ventricular systolic function Moderate aortic stenosis. Mean gradient 20.8 mmHg. Aortic valve area 1 cm2 Trace to mild aortic regurgitation Moderate mitral regurgitation EF 45-50% Grade 1 diastolic dysfunction Mild global hypokinesis of the left ventricle Other Testing Thyroid ultrasound 05/22/2021 IMPRESSION: No significant change in multiple thyroid nodules since ultrasound of January 17, 2016, including a densely calcified right mid pole nodule. Carotid doppler 09/03/2016 < 50% stenosis in internal carotid arteries bilat
[2021-07-09] MEDS: CEFEPIME 1,000 MG in SYRINGE 0 ML IV SCH (18:04)
--- NOTE | 2021-07-09 18:43 | History & Physical Bridge Note ---
Date of Service July 09, 2021 History & Physical Bridge Note I have examined the patient, reviewed the History & Physical and in the interval since the performance of the History & Physical I have noted the following changes of clinical significance: no changes noted
[2021-07-09] MEDS ORDERED: ALBUMIN HUMAN 5% 12.5 GM/250 ML VIAL IV ONE (18:55)
[2021-07-09] MEDS ORDERED: ATROPINE SULFATE 0.1 MG/ML 10ML SYR IV PRN (19:53)
[2021-07-09] MEDS ORDERED: ONDANSETRON INJ 2 MG/ML 2 ML VIAL IV PRN (19:53)
[2021-07-09] MEDS ORDERED: fentaNYL citrate 100 MCG/2 ML VIAL IV PRN (19:53)
[2021-07-09] MEDS ORDERED: ePHEDrine sulfate 50 MG/ML AMP IV PRN (19:53)
[2021-07-09] MEDS ORDERED: fentaNYL citrate 100 MCG/2 ML VIAL ONE ×2 (19:54→20:57)
--- NOTE | 2021-07-09 20:10 | Hospitalist Progress Note ---
Date of Service July 09, 2021 Assessment & Plan (1) Bacteremia: Plan: - Presented with wound dehiscence s/p multiple surgeries and fever at HD - Continue on Vanco/cefepime -- likely can de-escalate and will discuss with ID, given gram negative organism possibly can do orals for 14 day coverage? - S/P Incision and drainage extremity right knee, extensive debridement right knee, removal of implant from right patella, application of wound vac.(Right) - Bean Fritz -- 07/07 --> OR cx with enterobacter cloacae which is also present on BCx; repeat BCx with NGTD > 48 hours -- Previous Cx from knee with Enterococcus faecalis which is not currently growing -- likely can D/C Vanc -- Will Consult ID - suspect maybe oral Abx coverage given gram negative organism and less likely to seed in heart valves/on hardware -- Suspect can also D/C Vanc -- Ultimately source of infection will be controlled with planned AKA ECHO --> NO VEGETATION Hgb 7.7 with 1 unit PRBC (gustavo from 6.8) -- transfused x 2 units on 07/09 and Hgb 10 in anticipation of AKA this evening --> Checked iron panel --> iron 11, trans % sat 9 and nephrology has ordered dose of Venofer, EPO 20,000 to be given with H (2) Sepsis: Plan: 2nd to R knee infection; as above (3) Dehiscence of wound: Plan: Presents with yet another recurrence of wound dehiscence of the right knee and reported fevers at dialysis, but is afebrile; Postoperative infection of the internal right knee prosthesis No leukocytosis, vital signs are stable ESR and CRP are elevated 88 & 31.1 respectively on admission Chest x-ray with evidence of volume overload but no pneumonia and no symptoms of pneumonia UA ordered but not collected and she makes minimal urine Does have a sacral wound but it does not appear infected s/p Incision and drainage extremity right knee, extensive debridement right knee, removal of implant from right patella, application of wound vac.(Right) - Bean Fritz MD Per Dr Ly, full thickness defect and below VAC sponder is distal femur. Best interest of patient to have amputation of R leg with hope of getting to h eal. Not candidate for skin graft or rotational flaps Pain controlled with tylenol/tramadol Wound RN consulted See above under Bacteremia Patient is generally high risk given severe , ESRD, CHF history, Insulin requirement. On revised cardiac risk assessment she is at a 15% risk of , [place], or cardiac arrest in the next 30 days. However, ongoing infection/sepsis posses a risk. She has had multiple surgical procedures and did well post- operatively. Will have to monitor BP control in setting of severe . Patient's volume status is acceptable post-dialysis and Hgb/vitals stable. She is as optimal as possible at this time for surgical intervention (4) Anemia: Plan: Hemoglobin chronically low (baseline 8-9) managed by nephrology with periodic Epogen and IV iron Hgb monitored and transfuse as necessary - will monitor after surgery (5) End-stage renal disease on hemodialysis: Plan: Consult nephrology for inpatient hemodialysis management Her dialysis days are Friday Monitor volume status (6) CAD (coronary artery disease): Plan: No history of stents Resumed ASA 81mg BID post-operatively by ortho No chest pain reported Continue atorvastatin, isosorbide (7) Depression: Plan: Feeling worse with her mood lately with being in the hospital and rehab so much; also has sustained a lot of loss of family members in the past years. She was tearful today but was able to easily cheer up and just spend some time talking with her (8) Dyslipidemia: Plan: Continue statin (9) Heart failure with mid-range ejection fraction: Plan: Last echocardiogram 10/2020 with mild LV dysfunction EF 45-50%, moderate aortic stenosis, moderate MR Managed with dialysis for volume ECHO repeated given +BCx --> LV systolic function normal. No regional wma. Mild concentric LVH. EF 60-65%. Severe valvular aortic stenosis. Mild MR. NO VALVULAR vegetation identified. Compared to October 2020, minor progression in aortic stenosis. (10) Hypertension: Plan: Continue home medications of hydralazine, isosorbide, amlodipine (11) Moderate calcific aortic stenosis: Plan: As above, moderate on last echocardiogram --> now SEVERE. monitor BP control Plan: Plan for AKA; requires ongoing hospitalization; will need ID consultation Admission and Anticipated Discharge Date Admission Date: July 06, 2021 Supervising Physician Co-Signing Physician Notes PA Supervision Note: I did not personally see or examine the patient today, but I verified all tinajero points of PA Kerrie's assessment and plan with the following exceptions/additions: None Subjective No acute events overnight. She is anxious about surgery today. She did complete dialysis and had blood transfusions completed with improvement in H&H. She reports no CP or SOB. She verbalizes no complaints Review of Systems Review of Systems: All systems reviewed & are unremarkable except as noted in Subjective Physical Exam Physical Exam: Constitutional:L WD/WN BEyes: anicteric ENMT: external ear and n ose normal, oropha rynx normal Neck: trachea midline, n o JVD Respiratory: normal respiratory effort, lungs monique ar to auscultation but diminished at bases Cardiovascular:L Rate/Rhythm: regul ar rate and regula r rhythm Heart So unds: + murmur (3/ 6 IWONA at RUSB) Ve ssels: dorsalis pe dis pulses present (1+ bilaterally) Extremities: no e fabio Chest (Breasts): Chest: normal insp ection of chest Gastrointestinal ( Abdomen): normal bowel sound s, soft, nontender , no hepatosplenom egaly Musculoskeletal: Extremities: no cy anosis and no club ivon R leg with d ressing/amarilys wrap a nd immobilizer. Wo und vac in place. Neurologic: moves all extremit ies and awake; no focal motor defici ts Psychiatric: alert,oriented x 3 Lymphatic: no lymphedema Results & Data Results & Data ([facility]) Vital Signs (Past 12 Hours) Vital Signs Temp Pulse Pulse Pulse Resp BP BP 07/09/21 19:04 37.4 C 102 H 18 147/57 H 07/09/21 15:48 37.3 C 88 16 133/67 07/09/21 12:50 36.8 C 93 H 166/66 H 07/09/21 12:30 83 163/74 H 07/09/21 12:15 84 173/88 H 07/09/21 12:00 56 L 142/78 H 07/09/21 11:45 83 174/78 H 07/09/21 11:30 37.1 C 78 16 144/66 H 07/09/21 11:15 72 135/61 07/09/21 11:00 81 141/63 H 07/09/21 10:45 37.0 C 69 18 136/100 07/09/21 10:38 37.0 C 85 16 137/62 07/09/21 10:30 83 137/62 07/09/21 10:15 86 143/62 H 07/09/21 10:00 83 129/56 L 07/09/21 09:44 37.1 C 85 16 133/59 L 07/09/21 09:40 85 133/59 L 07/09/21 09:20 85 151/62 H 07/09/21 09:13 37.1 C 87 Pulse Ox 07/09/21 19:04 96 07/09/21 15:48 96 07/09/21 12:50 07/09/21 12:30 07/09/21 12:15 07/09/21 12:00 07/09/21 11:45 07/09/21 11:30 07/09/21 11:15 07/09/21 11:00 07/09/21 10:45 07/09/21 10:38 07/09/21 10:30 07/09/21 10:15 07/09/21 10:00 07/09/21 09:44 07/09/21 09:40 07/09/21 09:20 07/09/21 09:13 PG Care Time/CCT Total # of Minutes Spent Total Time Spent with Patient: Total time spent is greater than 50% in coordination of care (as documented) at patient's floor/unit and/or counseling patient: Coding Level of Care Code 02047 Subseq Hosp Care Lvl 3 Diagnoses Bacteremia R78.81 Sepsis A41.9 Sepsis acute organ dysfunction status: unspecified Sepsis type: sepsis due to unspecified organism Dehiscence of wound T81.30XA Anemia N18.6; D63.1; Z99.2 Anemia type: due to chronic kidney disease Chronic kidney disease stage: on chronic dialysis End-stage renal disease on hemodialysis N18.6; Z99.2 CAD (coronary artery disease) I25.10 Depression F32.9 Dyslipidemia E78.5 Heart failure with mid-range ejection fraction I50.9 Hypertension I10 Hypertension type: unspecified Moderate calcific aortic stenosis I35.0 (1) Anemia Anemia type: due to chronic kidney disease Chronic kidney disease stage: on chronic dialysis Qualified Code(s): N18.6 - End stage renal disease; D63.1 - Anemia in chronic kidney disease; Z99.2 - Dependence on renal dialysis (2) Sepsis Sepsis acute organ dysfunction status: unspecified Sepsis type: sepsis due to unspecified organism Qualified Code(s): A41.9 - Sepsis, unspecified organism (3) Hypertension Hypertension type: unspecified Qualified Code(s): I10 - Essential (primary) hypertension
[2021-07-09] MEDS ORDERED: BUPIVACAINE 0.5 % 5 MG/1 ML MPF 30ML VIAL ONE (20:24)
[2021-07-09] MEDS ORDERED: NEOSTIGMINE METHYLSULFATE 1 MG/ML 10ML VIAL ONE (20:40)
[2021-07-09] MEDS ORDERED: GLYCOPYRROLATE 0.2 MG/ML VIAL ONE (20:40)
[2021-07-09] MEDS ORDERED: ONDANSETRON INJ 2 MG/ML 2 ML VIAL ONE (20:40)
--- NOTE | 2021-07-09 21:45 | Operative Report ---
PG Post Operative Report Pre & Post Diagnosis Operation Date: 07/07/21 08:45 Pre-Op Diagnosis: Postoperative infection of the right knee with necrotic tissue and retained hardware. Post-Op Diagnosis: Postoperative infection of the right knee with necrotic tissue and retained hardware. Operation Date: 07/09/21 11:30 Pre-Op Diagnosis: Infection and advanced soft tissue loss of the right knee Post-Op Diagnosis: Infection and advanced soft tissue loss of the right knee I identified the patient and participated in the time-out.: Yes Procedure Operation Date: 07/07/21 08:45 Actual Procedures p Incision and drainage extremity right knee, extensive debridement right knee, removal of implant from right knee, application of wound vac.(Right) - Bean Fritz MD Operation Date: 07/09/21 11:30 Actual Procedures p Right Above Knee Amputation(Right) - Heriberto Ly DO Surgeon Heriberto Ly DO Memory Care Director Heriberto Rasheed PA-C Estimated Blood Loss 100 Findings Consistent with Post-Op Diagnosis Specimens Right leg Anesthesia Type General Complications none Disposition Accompanied Patient To Recovery: No Disposition: Recovery Room Description of Procedure On July 01 8021 Sonam was taken from the hospital room to the preoperative holding area. The operative extremity identified and signed. She was then taken back to the operating room and laid on the table in supine position. She was put under general anesthesia. The right leg was prepped and draped in sterile fashion. A timeout was done. The patient and the operative extremity was properly identified. A fishmouth incision was made around the right thigh. The estimated bone cut was about 15 cm proximal to the joint line. Dissection was taken down through the quad tendon anteriorly and curved around the medial and lateral sides. The femoral artery and veins on the medial side were tied with silk ties. Once the anterior compartment of the thigh was released the femur was resected with an oscillating saw. The soft tissue resection was continued through the hamstring muscle bellies and tendons. The sciatic nerve was ligated and allowed to retract proximally. The leg was then carefully removed. Hemostasis was obtained. The edges of the femoral resection were smoothed off with a rasp. Any extra muscle was debulked. A myodesis was then done of the muscle ends of the quadriceps and hamstrings. This was done with #1 Vicryl suture in interrupted fashion. Once the myodesis was complete the skin was closed with 2- 0 nylon suture in a trauma stitch fashion. A [place] drain was placed. She was then placed in a soft compressive dressing. She was then extubated and transferred to a hospital bed. She was taken to the postanesthesia care unit in stable condition. She tolerated the procedure well. Heriberto Rasheed PA-C, was present for the entire procedure. He was critical for patient positioning, prepping, draping, retraction exposure, wound closure and application of sterile dressing. I attest to the content of the Intraoperative Record and any orders documented therein. Any exceptions are noted below.
--- NOTE | 2021-07-09 22:27 | Anesthesiology Progress Note ---
Date of Service July 09, 2021 Anesthesia Post Procedure Vital Signs Vital Signs: Temp Pulse Pulse Pulse Resp BP BP 07/09/21 22:14 36.8 C 86 20 173/62 H 07/09/21 22:05 87 20 186/66 H 07/09/21 21:55 84 12 168/65 H 07/09/21 21:48 36.4 C L 81 12 169/64 H 07/09/21 19:04 37.4 C 102 H 18 147/57 H 07/09/21 15:48 37.3 C 88 16 133/67 07/09/21 12:50 36.8 C 93 H 166/66 H 07/09/21 12:30 83 163/74 H 07/09/21 12:15 84 173/88 H 07/09/21 12:00 56 L 142/78 H 07/09/21 11:45 83 174/78 H 07/09/21 11:30 37.1 C 78 16 144/66 H 07/09/21 11:15 72 135/61 07/09/21 11:00 81 141/63 H 07/09/21 10:45 37.0 C 69 18 136/100 07/09/21 10:38 37.0 C 85 16 137/62 07/09/21 10:30 83 137/62 07/09/21 10:15 86 143/62 H 07/09/21 10:00 83 129/56 L 07/09/21 09:44 37.1 C 85 16 133/59 L 07/09/21 09:40 85 133/59 L 07/09/21 09:20 85 151/62 H 07/09/21 09:13 37.1 C 87 07/09/21 07:39 37 C 85 16 150/61 H Pulse Ox 07/09/21 22:14 93 07/09/21 22:05 97 07/09/21 21:55 94 07/09/21 21:48 92 07/09/21 19:04 96 07/09/21 15:48 96 07/09/21 12:50 07/09/21 12:30 07/09/21 12:15 07/09/21 12:00 07/09/21 11:45 07/09/21 11:30 07/09/21 11:15 07/09/21 11:00 07/09/21 10:45 07/09/21 10:38 07/09/21 10:30 07/09/21 10:15 07/09/21 10:00 07/09/21 09:44 07/09/21 09:40 07/09/21 09:20 07/09/21 09:13 07/09/21 07:39 94 Pain Intensity Right Knee: Pain Intensity: 3 Transfer of Care Handoff Completed per policy Notes Mental Status: alert / awake / arousable and participated in evaluation Patient Amnestic to Procedure: Yes Nausea / Vomiting: adequately controlled Pain: adequately controlled Airway Patency, RR, SpO2: stable & adequate BP & HR: stable & adequate Hydration State: stable & adequate Anesthetic Complications: no major complications apparent and Pt Satisfied with anesthetic care
[2021-07-09] MEDS ORDERED: oxyCODONE HCL IR 5 MG TAB (IMMEDIATE RELEASE) PO PRN (22:40)
[2021-07-09] MEDS ORDERED: VANCOMYCIN 1.25 GM SCH (22:40)
[2021-07-09] MEDS ORDERED: HYDROmorphone INJ 0.5 MG/0.5 ML SYR IV PRN (22:40)
[2021-07-09] MEDS: INSULIN GLARGINE SOLOSTAR 100 UNITS/ML 3 ML PEN SQ SCH (23:52)
[2021-07-10] MEDS: amLODIPine BESYLATE 5 MG TAB PO SCH ×3 (01:03→20:20)
[2021-07-10] MEDS: ASPIRIN 81 MG ECTAB PO SCH ×3 (01:03→20:21)
[2021-07-10] MEDS: hydrALAZINE TAB 50 MG TAB PO SCH ×4 (01:04→20:21)
[2021-07-10] MEDS: ATORVASTATIN 40 MG TAB PO SCH ×2 (01:04→20:20)
[2021-07-10] MEDS: CHOLECALCIFEROL 1,000 UNITS 25 MCG TAB PO SCH ×3 (01:04→20:22)
[2021-07-10] MEDS: ACETAMINOPHEN 500 MG TAB PO PRN ×2 (05:18→20:51)
--- NOTE | 2021-07-10 06:26 | Orthopedic Progress Note ---
Date of Service July 10, 2021 Assessment & Plan (1) Status post above-knee amputation of right lower extremity: At this point she is doing fairly well. She is having too much pain in her stump. She has been admitted back to the medical service. She has been started back on the cefepime and she is currently on an aspirin twice a day for DVT prophylaxis. The medical team can resume more aggressive anticoagulation if they feel is necessary after 5:00 this evening. The amputated leg was grossly infected so I want to make sure that we do not feel with an infection of the right stump. It is important that she stays on the cefepime for now. Jason Masters was seen and examined at bedside this morning. Overall she seemed to be in good spirits. She was not having much pain in her right stump. She had no acute events overnight, and has no complaints. Review of Systems All systems reviewed & are unremarkable except as noted in HPI & below. Physical Exam On physical examination of the right stump, the dressing is clean and dry. Results & Data Results & Data Laboratory Results . Diagnostic Findings . PG Care Time/CCT Total # of Minutes Spent Total Time Spent with Patient: Total time spent is greater than 50% in coordination of care (as documented) at patient's floor/unit and/or counseling patient: Coding Level of Care Code 50626 Post Operative Follow-Up Diagnoses Status post above-knee amputation of right lower extremity Z89.611
[2021-07-10 06:45] LABS: Hematocrit (blood only) 32.1 % (37-47); Mean Corpuscular Hemoglobin 28.5 pg (25-34); Mean Corpuscular Hgb Conc 31.2 g/dL (32-36); Mean Corpuscular Volume 91.5 fL (80-100); Mean Platelet Volume 9.1 fL (7.4-10.4); Platelet Count 236 K/uL (130-400); RDW Coefficient of Variation 16.3 % (11.5-14.5); RDW Standard Deviation 54.2 fL (36.4-46.3); Red Blood Count 3.51 M/uL (4.2-5.4); White Blood Count 8.43 K/uL (4.8-10.8)
[2021-07-10 07:09] LABS: Calcium 8.8 mg/dl (8.5-10.1); Est GFR (African American) 21.8 ml/min; Est GFR (Non-African American) 18.8 ml/min
[2021-07-10] MEDS: ASCORBIC ACID 500 MG TAB PO SCH (08:40)
[2021-07-10] MEDS: ISOSORBIDE MONO EXTENDED REL 60 MG TABCR PO SCH (08:40)
[2021-07-10] MEDS: VENLAFAXINE HCL XR 150 MG CAPXR PO SCH (08:40)
[2021-07-10] MEDS: INSULIN ASPART PER UNIT SC SCH ×4 (08:40→20:51)
[2021-07-10] MEDS: MULTIVITAMIN TAB PO SCH (08:40)
[2021-07-10] MEDS: CALCIUM 600MG + VIT D 400 IU TAB PO SCH (08:41)
--- NOTE | 2021-07-10 10:10 | Nephrology Progress Note ---
Date of Service July 10, 2021 Assessment & Plan (1) End-stage renal disease on hemodialysis: Plan: HD MWF. Completed treatment yesterday with adequate clearance. Volume status controlled. AVF functioning well. Next HD planned for tomorrow. Medications appropriately dosed for IHD. (2) Anemia: Plan: 1 u PRBC transfusion support provided 07/08. Additional 2 u PRBC transfusion support + Epogen provided with HD 07/09. Monitor H/H daily. (3) Infection of right knee: Plan: Remains on vancomycin with HD + cefepime. s/p debridement and hardware removal 07/07. POD# 1 s/p AKA Admission and Anticipated Discharge Date Admission Date: July 06, 2021 Subjective No acute events overnight. Tolerated HD well yesterday. Surgery completed without complications. Wound care visiting this AM for dressing change during my assessment. Minerva had no concerns. Remains on 3L NC. Breathing comfortably. Denies pain. Review of Systems Review of Systems: All systems reviewed & are unremarkable except as noted in HPI & below Physical Exam Constitutional: well developed; no acute distress Eyes: no scleral abnormality and no corneal abnormality ENMT: Mouth: no oral mucosal abnormality and oral mucous membranes not dry Neck: normal visual inspection and trachea midline Respiratory: normal respiratory effort Auscultation: lungs clear to auscultation bilaterally Cardiovascular: Rate/Rhythm: regular rate Heart Sounds: normal S1, normal S2 and + murmur Extremities: + AV fistula (I did not personally evaluate the fistula this AM); no edema Musculoskeletal: Extremities: no cyanosis and no clubbing Skin: normal turgor; no lesions Neurologic: Motor/Sensory: no tremor and no asterixis Psychiatric: Orientation: alert and oriented x 3 Results & Data ([facility]) Vital Signs (Past 12 Hours) Vital Signs Temp Pulse Pulse Resp BP Pulse Ox 07/10/21 09:00 36.7 C 79 18 155/63 H 97 07/10/21 07:32 36.7 C 78 20 170/65 H 97 07/10/21 01:35 36.7 C 75 14 165/63 H 99 07/10/21 00:35 36.9 C 76 14 173/63 H 99 07/09/21 23:40 79 15 166/62 H 99 07/09/21 23:05 78 16 161/64 H 98 07/09/21 22:35 36.7 C 81 18 162/63 H 92 07/09/21 22:14 36.8 C 86 20 173/62 H 93 Laboratory Results Laboratory Results - last 24 hr 07/07/21 07/09/21 07/09/21 18:25 11:41 12:11 WBC RBC Hgb Hct MCV MCH MCHC RDW Std Deviation RDW Coeff of Chris Plt Count MPV Sodium Potassium Chloride Carbon Dioxide Anion Gap BUN Creatinine Est Cr Clr Drug Dosing Est GFR ( Amer) Est GFR (Non-Af Amer) BUN/Creatinine Ratio Glucose POC Glucose 71 76 Calcium Blood Type O Positive Antibody Screen NEGATIVE Crossmatch See Detail 07/09/21 07/09/21 07/09/21 12:16 13:59 17:55 WBC 7.99 RBC 3.53 L Hgb 10.0 L Hct 31.6 L MCV 89.5 MCH 28.3 MCHC 31.6 L RDW Std Deviation 51.8 H RDW Coeff of Chris 15.9 H Plt Count 214 MPV 9.0 Sodium Potassium Chloride Carbon Dioxide Anion Gap BUN Creatinine Est Cr Clr Drug Dosing Est GFR ( Amer) Est GFR (Non-Af Amer) BUN/Creatinine Ratio Glucose POC Glucose 72 63 L* Calcium Blood Type Antibody Screen Crossmatch 07/09/21 07/09/21 07/09/21 18:20 20:02 21:49 WBC RBC Hgb Hct MCV MCH MCHC RDW Std Deviation RDW Coeff of Chris Plt Count MPV Sodium Potassium Chloride Carbon Dioxide Anion Gap BUN Creatinine Est Cr Clr Drug Dosing Est GFR ( Amer) Est GFR (Non-Af Amer) BUN/Creatinine Ratio Glucose POC Glucose 80 86 97 Calcium Blood Type Antibody Screen Crossmatch 07/09/21 07/10/21 07/10/21 22:47 05:38 05:38 WBC 8.43 RBC 3.51 L Hgb 10.0 L Hct 32.1 L MCV 91.5 MCH 28.5 MCHC 31.2 L RDW Std Deviation 54.2 H RDW Coeff of Chris 16.3 H Plt Count 236 MPV 9.1 Sodium 137 Potassium 4.0 Chloride 102 Carbon Dioxide 26 Anion Gap 9 BUN 24 H D Creatinine 2.39 H D Est Cr Clr Drug Dosing 21.0 Est GFR ( Amer) 21.8 Est GFR (Non-Af Amer) 18.8 BUN/Creatinine Ratio 10.0 Glucose 79 POC Glucose 90 Calcium 8.8 Blood Type Antibody Screen Crossmatch 07/10/21 07:58 WBC RBC Hgb Hct MCV MCH MCHC RDW Std Deviation RDW Coeff of Chris Plt Count MPV Sodium Potassium Chloride Carbon Dioxide Anion Gap BUN Creatinine Est Cr Clr Drug Dosing Est GFR ( Amer) Est GFR (Non-Af Amer) BUN/Creatinine Ratio Glucose POC Glucose 82 Calcium Blood Type Antibody Screen Crossmatch PG Care Time/CCT Total # of Minutes Spent Total Time Spent with Patient: Total time spent is greater than 50% in coordination of care (as documented) at patient's floor/unit and/or counseling patient: Coding Level of Care Code 53743 Subseq Hosp Care Lvl 3 Diagnoses End-stage renal disease on hemodialysis N18.6; Z99.2 Anemia N18.6; D63.1; Z99.2 Anemia type: due to chronic kidney disease Chronic kidney disease stage: on chronic dialysis Infection of right knee M00.9 (1) Anemia Anemia type: due to chronic kidney disease Chronic kidney disease stage: on chronic dialysis Qualified Code(s): N18.6 - End stage renal disease; D63.1 - Anemia in chronic kidney disease; Z99.2 - Dependence on renal dialysis
--- NOTE | 2021-07-10 13:02 | Electrocardiogram Report ---
Test Reason : Blood Pressure : / mmHG Vent. Rate : 090 BPM Atrial Rate : 090 BPM P-R Int : 144 ms QRS Dur : 108 ms QT Int : 368 ms P-R-T Axes : 055 012 071 degrees QTc Int : 450 ms Sinus rhythm with Premature atrial complexes Nonspecific ST and T wave abnormality Abnormal ECG When compared with ECG of 06-JUL-2021 18:46, No significant change was found Confirmed by Mark Stephens ([id number]) on 07/10/2021 1:01:55 PM Referred By: Atul Schneider Confirmed By:Mark Stephens
[2021-07-10] MEDS: CEFEPIME 1,000 MG in SYRINGE 0 ML IV SCH (17:29)
--- NOTE | 2021-07-10 17:41 | Hospitalist Progress Note ---
Date of Service July 10, 2021 Assessment & Plan (1) Bacteremia: Plan: - Presented with wound dehiscence s/p multiple surgeries and fever at HD - Continue on Vanco/cefepime -- likely can de-escalate and will discuss with ID, given gram negative organism possibly can do orals for 14 day coverage? -- Was due to finish Vanc on 07/12 (for enterococcus) with dialysis and can complete at that time - will get ID opinion for ongoing Abx - S/P Incision and drainage extremity right knee, extensive debridement right knee, removal of implant from right patella, application of wound vac.(Right) - Bean Fritz -- 07/07 --> OR cx with enterobacter cloacae which is also present on BCx; repeat BCx with NGTD > 48 hours -- Previous Cx from knee with Enterococcus faecalis which is not currently growing -- Will Consult ID - suspect maybe oral Abx coverage given gram negative organism and less likely to seed in heart valves/on hardware -- Suspect can also D/C Vanc as treatment initially would have completed on 07/12 -- Ultimately source of infection will be controlled withAKA ECHO --> NO VEGETATION Hgb 7.7 with 1 unit PRBC (gustavo from 6.8) -- transfused x 2 units on 07/09 and Hgb 10 and still currently there post-operative --> Checked iron panel --> iron 11, trans % sat 9 and nephrology has ordered dose of Venofer, EPO 20,000 to be given with H (2) Sepsis: Plan: 2nd to R knee infection; as above (3) Dehiscence of wound: Plan: Presents with yet another recurrence of wound dehiscence of the right knee and reported fevers at dialysis, but is afebrile; Postoperative infection of the internal right knee prosthesis No leukocytosis, vital signs are stable ESR and CRP are elevated 88 & 31.1 respectively on admission Chest x-ray with evidence of volume overload but no pneumonia and no symptoms of pneumonia UA ordered but not collected and she makes minimal urine Does have a sacral wound but it does not appear infected s/p Incision and drainage extremity right knee, extensive debridement right knee, removal of implant from right patella, application of wound vac.(Right) - Bean Fritz MD Per Dr Ly, full thickness defect and below VAC sponder is distal femur. Best interest of patient to have amputation of R leg with hope of getting to heal. Not candidate for skin graft or rotational flaps Pain controlled with tylenol/oxy -- mostly only using Tylenol Wound RN consulted Now S/P R AKA on 07/[address] Ly (4) Anemia: Plan: Hemoglobin chronically low (baseline 8-9) managed by nephrology with periodic Epogen and IV iron Hgb monitored and transfuse as necessary - will monitor after surgery (5) End-stage renal disease on hemodialysis: Plan: Consult nephrology for inpatient hemodialysis management Her dialysis days are Friday Monitor volume status (6) CAD (coronary artery disease): Plan: No history of stents Resumed ASA 81mg BID post-operatively by ortho No chest pain reported Continue atorvastatin, isosorbide (7) Depression: Plan: Feeling worse with her mood lately with being in the hospital and rehab so much; also has sustained a lot of loss of family members in the past years. She was tearful today but was able to easily cheer up and just spend some time talking with her. Today her spirits are much improved and she feels less anxious now that the surgery is complete (8) Dyslipidemia: Plan: Continue statin (9) Heart failure with mid-range ejection fraction: Plan: Last echocardiogram 10/2020 with mild LV dysfunction EF 45-50%, moderate aortic stenosis, moderate MR Managed with dialysis for volume ECHO repeated given +BCx --> LV systolic function normal. No regional wma. Mild concentric LVH. EF 60-65%. Severe valvular aortic stenosis. Mild MR. NO VALVULAR vegetation identified. Compared to October 2020, minor progression in aortic stenosis. (10) Hypertension: Plan: Continue home medications of hydralazine, isosorbide, amlodipine (11) Moderate calcific aortic stenosis: Plan: As above, moderate on last echocardiogram --> now SEVERE. monitor BP control Plan: Consult ID Will check with ortho about when safe for PT/OT to start - however patient not leaning towards rehab at this time but will see Admission and Anticipated Discharge Date Admission Date: July 06, 2021 Supervising Physician Co-Signing Physician Notes PA Supervision Note: I did not personally see or examine the patient today, but I verified all tinajero points of DELL Sy's assessment and plan with the following exceptions/additions: None Subjective No acute events overnight. She is doing extremely well post-operatively. Minimal pain and working on exercises while in bed. Assisted with wound care team to assess her bottom with is getting red/irritated. Labs are stable. She is tolerating a diet without issue. She reports her mood is much better as she was very anxious/depressed prior to surgery but is in good spirits today. Verbalizes no new complaints Review of Systems Review of Systems: All systems reviewed & are unremarkable except as noted in Subjective Physical Exam Physical Exam: Constitutional:L WD/WN Eyes: anicteric ENMT: external ear and n ose normal, oropha rynx normal Neck: trachea midline, n o JVD Respiratory: normal respiratory effort, lungs monique ar to auscultation but diminished at bases Cardiovascular:L Rate/Rhythm: regul ar rate and regula r rhythm Heart So unds: + murmur (3/ 6 IWONA at RUSB) Ve ssels: dorsalis pe dis pulses present (1+ bilaterally o n L) Extremities: no edema Chest (Breasts): Chest: normal insp ection of chest Gastrointestinal ( Abdomen): normal bowel sound s, soft, nontender , no hepatosplenom egaly Musculoskeletal: Extremities: no cy anosis and no club ivon; R AKA with s urgical dressing i n place C/D/I Neurologic: moves all extremit ies and awake incl uding RLE stump; n o focal motor defi cits Psychiatric: alert,oriented x 3 ; in good spirits and not anxious or depressed appeari ng Lymphatic: Skin : no lymphedema Pur ple area at the sa toni with erythema of the area (woun d image placed in chart by wound car e nurse) Results & Data Results & Data ([facility]) Vital Signs (Past 12 Hours) Vital Signs Temp Pulse Resp BP Pulse Ox 07/10/21 14:06 36.9 C 79 18 147/66 H 97 07/10/21 11:04 36.8 C 79 20 163/63 H 97 07/10/21 09:00 36.7 C 79 18 155/63 H 97 07/10/21 07:32 36.7 C 78 20 170/65 H 97 PG Care Time/CCT Total # of Minutes Spent Total Time Spent with Patient: Total time spent is greater than 50% in coordination of care (as documented) at patient's floor/unit and/or counseling patient: Coding Level of Care Code 02368 Subseq Hosp Care Lvl 3 Diagnoses Bacteremia R78.81 Sepsis A41.9 Sepsis acute organ dysfunction status: unspecified Sepsis type: sepsis due to unspecified organism Dehiscence of wound T81.30XA Anemia N18.6; D63.1; Z99.2 Anemia type: due to chronic kidney disease Chronic kidney disease stage: on chronic dialysis End-stage renal disease on hemodialysis N18.6; Z99.2 CAD (coronary artery disease) I25.10 Depression F32.9 Dyslipidemia E78.5 Heart failure with mid-range ejection fraction I50.9 Hypertension I10 Hypertension type: unspecified Moderate calcific aortic stenosis I35.0 (1) Anemia Anemia type: due to chronic kidney disease Chronic kidney disease stage: on chronic dialysis Qualified Code(s): N18.6 - End stage renal disease; D63.1 - Anemia in chronic kidney disease; Z99.2 - Dependence on renal dialysis (2) Sepsis Sepsis acute organ dysfunction status: unspecified Sepsis type: sepsis due to unspecified organism Qualified Code(s): A41.9 - Sepsis, unspecified organism (3) Hypertension Hypertension type: unspecified Qualified Code(s): I10 - Essential (primary) hypertension
[2021-07-10] MEDS: INSULIN GLARGINE SOLOSTAR 100 UNITS/ML 3 ML PEN SQ SCH (20:57)
[2021-07-11] MEDS: CHOLECALCIFEROL 1,000 UNITS 25 MCG TAB PO SCH ×2 (08:11→21:11)
[2021-07-11] MEDS: MULTIVITAMIN TAB PO SCH (08:12)
[2021-07-11] MEDS: ASCORBIC ACID 500 MG TAB PO SCH (08:15)
[2021-07-11] MEDS: VENLAFAXINE HCL XR 150 MG CAPXR PO SCH (08:15)
[2021-07-11] MEDS: CALCIUM 600MG + VIT D 400 IU TAB PO SCH (08:15)
[2021-07-11] MEDS: ASPIRIN 81 MG ECTAB PO SCH ×2 (08:16→21:10)
[2021-07-11] MEDS: hydrALAZINE TAB 50 MG TAB PO SCH ×4 (08:16→21:10)
[2021-07-11] MEDS: amLODIPine BESYLATE 5 MG TAB PO SCH ×3 (08:16→21:11)
[2021-07-11] MEDS: ISOSORBIDE MONO EXTENDED REL 60 MG TABCR PO SCH (08:17)
[2021-07-11 08:21] LABS: Hematocrit (blood only) 34.9 % (37-47); Hemoglobin 10.7 g/dL (12.0-16.0); Mean Corpuscular Hgb Conc 30.7 g/dL (32-36); Mean Corpuscular Volume 91.4 fL (80-100); Mean Platelet Volume 9.3 fL (7.4-10.4); Platelet Count 318 K/uL (130-400); RDW Coefficient of Variation 16.1 % (11.5-14.5); Red Blood Count 3.82 M/uL (4.2-5.4); White Blood Count 9.52 K/uL (4.8-10.8)
[2021-07-11] MEDS: INSULIN ASPART PER UNIT SC SCH ×4 (08:36→21:14)
[2021-07-11 08:55] LABS: BUN Creatinine Ratio 12.1 (10-20); Calcium 9.7 mg/dl (8.5-10.1); Creatinine Clr Calc Pharmacy 16.9 ml/min; Est GFR (African American) 16.7 ml/min; Est GFR (Non-African American) 14.4 ml/min; Potassium 4.2 mmol/L (3.5-5.1)
--- NOTE | 2021-07-11 10:25 | Nephrology Progress Note ---
Date of Service July 11, 2021 Assessment & Plan (1) End-stage renal disease on hemodialysis: Plan: HD MWF. Orders entered into EMR and reviewed with interactive media designer. UF goal increased, as tolerated. AVF functioning well. Clearance acceptable. Medications appropriately dosed for IHD. (2) Anemia: Plan: 1 u PRBC transfusion support provided 07/08. Additional 2 u PRBC transfusion support + Epogen provided with HD 07/09. Monitor H/H daily. (3) Infection of right knee: Plan: Remains on vancomycin with HD + cefepime. s/p debridement and hardware removal 07/07. POD# 2 s/p AKA. ID consult pending. Admission and Anticipated Discharge Date Admission Date: July 06, 2021 Subjective No acute events overnight. Minerva was seen and evaluated during hemodialysis this AM. AVF functioning well. BP elevated. Tolerating treatment well. Some intermittent pain in stump but overall pain has been well controlled. Breathing comfortably. Review of Systems Review of Systems: All systems reviewed & are unremarkable except as noted in HPI & below Physical Exam Constitutional: well developed; no acute distress Eyes: no scleral abnormality and no corneal abnormality ENMT: Mouth: no oral mucosal abnormality and oral mucous membranes not dry Neck: normal visual inspection and trachea midline Respiratory: normal respiratory effort Auscultation: lungs clear to auscultation bilaterally Cardiovascular: Rate/Rhythm: regular rate Heart Sounds: normal S1, normal S2 and + murmur Extremities: + AV fistula (I did not personally evaluate the fistula this AM); no edema Musculoskeletal: Extremities: no cyanosis and no clubbing Skin: normal turgor; no lesions Neurologic: Motor/Sensory: no tremor and no asterixis Psychiatric: Orientation: alert and oriented x 3 Results & Data ([facility]) Vital Signs (Past 12 Hours) Vital Signs Temp Pulse Pulse Resp BP BP Pulse Ox 07/11/21 10:00 79 206/88 H 07/11/21 09:40 81 194/78 H 07/11/21 09:20 83 211/84 H 07/11/21 09:03 87 213/79 H 07/11/21 08:49 36.3 C L 91 H 07/11/21 08:10 85 173/69 H 07/11/21 08:00 36.6 C 20 94 Laboratory Results Laboratory Results - last 24 hr 07/10/21 07/10/2122 12:16 16:48 20:42 WBC RBC Hgb Hct MCV MCH MCHC RDW Std Deviation RDW Coeff of Chris Plt Count MPV Sodium Potassium Chloride Carbon Dioxide Anion Gap BUN Creatinine Est Cr Clr Drug Dosing Est GFR ( Amer) Est GFR (Non-Af Amer) BUN/Creatinine Ratio Glucose POC Glucose 157 H 90 108 H Calcium Random Vancomycin 07/11/21 07/11/21 07/11/21 07:04 07:04 07:04 WBC 9.52 RBC 3.82 L Hgb 10.7 L Hct 34.9 L MCV 91.4 MCH 28.0 MCHC 30.7 L RDW Std Deviation 54.0 H RDW Coeff of Chris 16.1 H Plt Count 318 MPV 9.3 Sodium 135 L Potassium 4.2 Chloride 100 Carbon Dioxide 24 Anion Gap 11 BUN 36 H Creatinine 2.98 H D Est Cr Clr Drug Dosing 16.9 Est GFR ( Amer) 16.7 Est GFR (Non-Af Amer) 14.4 BUN/Creatinine Ratio 12.1 Glucose 88 POC Glucose Calcium 9.7 Random Vancomycin 17.9 07/11/21 07:59 WBC RBC Hgb Hct MCV MCH MCHC RDW Std Deviation RDW Coeff of Chris Plt Count MPV Sodium Potassium Chloride Carbon Dioxide Anion Gap BUN Creatinine Est Cr Clr Drug Dosing Est GFR ( Amer) Est GFR (Non-Af Amer) BUN/Creatinine Ratio Glucose POC Glucose 81 Calcium Random Vancomycin PG Care Time/CCT Total # of Minutes Spent Total Time Spent with Patient: Total time spent is greater than 50% in coordination of care (as documented) at patient's floor/unit and/or counseling patient: Coding Level of Care Code 30719 Subseq Hosp Care Lvl 3 Diagnoses End-stage renal disease on hemodialysis N18.6; Z99.2 Anemia N18.6; D63.1; Z99.2 Anemia type: due to chronic kidney disease Chronic kidney disease stage: on chronic dialysis Infection of right knee M00.9 (1) Anemia Anemia type: due to chronic kidney disease Chronic kidney disease stage: on chronic dialysis Qualified Code(s): N18.6 - End stage renal disease; D63.1 - Anemia in chronic kidney disease; Z99.2 - Dependence on renal dialysis
--- NOTE | 2021-07-11 13:28 | Pharmacy Report ---
Pharmacy Abx Dose Short Note - Date of Service July 11, 2021 - Assessment & Plan Assessment 80 year old F receiving Vancomycin for treatment of Bacteremia. Day #6 of antimicrobial therapy. Plan Vancomycin * Random level of 17.9 mcg/mL this AM is therapeutic. * Patient is on hemo-dialysis. Vancomycin one-time doses are being given after HD based on random level obtained in the AM. * Goal trough level for Bacteremia: 15 to 20 mcg/mL * Based on today's level of 17.9 mcg/ml, Vancomycin 500 mg IV x1 ordered this afternoon. * Last day of Vanco therapy is 07/12/21. So, a new level is not ordered. Pharmacy will continue to follow and will adjust dose/frequency as necessary. Thank you.
[2021-07-11] MEDS ORDERED: VANCOMYCIN HCL 500 MG in DEXTROSE 5% 100 ML IV ONE (14:00)
[2021-07-11] MEDS: CEFEPIME 1,000 MG in SYRINGE 0 ML IV SCH (18:39)
--- NOTE | 2021-07-11 19:55 | Hospitalist Progress Note ---
Date of Service July 11, 2021 Assessment & Plan (1) Bacteremia: Plan: - Presented with wound dehiscence s/p multiple surgeries and fever at HD - Completed Vancomycin from previous infection; Currently on Cefepime -- Discussed with ID who completed consult to utilize Cipro to complete a 14 day total course -- left message with Ortho to see if okay from their perspective to convert medication -- Given gram negative organism possibly can do orals for 14 day coverage? - S/P Incision and drainage extremity right knee, extensive debridement right knee, removal of implant from right patella, application of wound vac.(Right) - Bean Fritz -- 07/07 --> OR cx with enterobacter cloacae which is also present on BCx; repeat BCx with NGTD > 48 hours -- Previous Cx from knee with Enterococcus faecalis which is not currently growing -- Consulted ID - suspect maybe oral Abx coverage given gram negative organism and less likely to seed in heart valves/on hardware -- Ultimately source of infection has been controlled with AKA ECHO --> NO VEGETATION Hgb 7.7 with 1 unit PRBC (gustavo from 6.8) -- transfused x 2 units on 07/09 and Hgb 10 and still currently there post-operative --> Checked iron panel --> iron 11, trans % sat 9 and nephrology has ordered dose of Venofer, EPO 20,000 to be given with H (2) Sepsis: Plan: 2nd to R knee infection; as above (3) Dehiscence of wound: Plan: Presents with yet another recurrence of wound dehiscence of the right knee and reported fevers at dialysis, but is afebrile; Postoperative infection of the internal right knee prosthesis No leukocytosis, vital signs are stable ESR and CRP are elevated 88 & 31.1 respectively on admission Chest x-ray with evidence of volume overload but no pneumonia and no symptoms of pneumonia UA ordered but not collected and she makes minimal urine Does have a sacral wound but it does not appear infected s/p Incision and drainage extremity right knee, extensive debridement right knee, removal of implant from right patella, application of wound vac.(Right) - Bean Fritz MD Per Dr Ly, full thickness defect and below VAC sponder is distal femur. Best interest of patient to have amputation of R leg with hope of getting to heal. Not candidate for skin graft or rotational flaps Pain controlled with tylenol/oxy -- mostly only using Tylenol Wound RN consulted Now S/P R AKA on 07/[address] Ly (4) Anemia: Plan: Hemoglobin chronically low (baseline 8-9) managed by nephrology with periodic Epogen and IV iron Hgb monitored and transfuse as necessary - will monitor after surgery (5) End-stage renal disease on hemodialysis: Plan: Consult nephrology for inpatient hemodialysis management Her dialysis days are Friday Monitor volume status (6) CAD (coronary artery disease): Plan: No history of stents Resumed ASA 81mg BID post-operatively by ortho No chest pain reported Continue atorvastatin, isosorbide (7) Depression: Plan: Feeling worse with her mood lately with being in the hospital and rehab so much; also has sustained a lot of loss of family members in the past years. Today her spirits continue to improve and she feels less anxious now that the surgery is complete (8) Dyslipidemia: Plan: Continue statin (9) Heart failure with mid-range ejection fraction: Plan: Last echocardiogram 10/2020 with mild LV dysfunction EF 45-50%, moderate aortic stenosis, moderate MR Managed with dialysis for volume ECHO repeated given +BCx --> LV systolic function normal. No regional wma. Mild concentric LVH. EF 60-65%. Severe valvular aortic stenosis. Mild MR. NO VALVULAR vegetation identified. Compared to October 2020, minor progression in aortic stenosis. (10) Hypertension: Plan: - Variable Continue home medications of hydralazine, isosorbide, amlodipine (11) Moderate calcific aortic stenosis: Plan: As above, moderate on last echocardiogram --> now SEVERE. monitor BP control Plan: PT/OT - patient currently interested in rehab and would like to consider [facility] Admission and Anticipated Discharge Date Admission Date: July 06, 2021 Supervising Physician Co-Signing Physician Notes PA Supervision Note: I did not personally see or examine the patient today, but I verified all tinajero points of DELL Sy's assessment and plan with the following exceptions/additions: None Subjective No acute events overnight. She completed dialysis today and states she felt a bit fatigued after which is normal. Her BP has been running a bit high today and she admits it fluctuates a lot but asymptomatic. She is tolerating a diet. Pain continues to remain controlled. She is interested in considering [facility] or rehab on D/C Review of Systems Review of Systems: All systems reviewed & are unremarkable except as noted in Subjective Physical Exam Physical Exam: Constitutional:L WD/WN Eyes: anicteric ENMT: external ear and n ose normal, oropha rynx normal Neck: trachea midline, n o JVD Respiratory: normal respiratory effort, lungs monique ar to auscultation but diminished at bases Cardiovascular:L Rate/Rhythm: regul ar rate and regula r rhythm Heart So unds: + murmur (3/ 6 IWONA at [facility]) Ve ssels: dorsalis pe dis pulses present (1+ bilaterally o n L) Extremities: no edema Chest (Breasts): Chest: normal insp ection of chest Gastrointestinal ( Abdomen): normal bowel sound s, soft, nontender , no hepatosplenom egaly Musculoskeletal: Extremities: no cy anosis and no club ivon; R AKA with s urgical dressing i n place C/D/I Neurologic: moves all extremit ies and awake incl uding RLE stump; n o focal motor defi cits Psychiatric: alert,oriented x 3 ; in good spirits and not anxious or depressed appeari ng Lymphatic: Skin : no lymphedema Pur ple area at the sa toni with erythema of the area (woun d image placed in chart by wound car e nurse) Results & Data Results & Data ([facility]) Vital Signs (Past 12 Hours) Vital Signs Temp Pulse Pulse Resp BP BP Pulse Ox 07/11/21 15:19 36.9 C 88 16 91 07/11/21 15:17 180/71 H 07/11/21 13:12 36.6 C 89 18 183/64 H 94 07/11/21 12:36 36.6 C 87 232/118 H 07/11/21 12:20 55 L 192/101 H 07/11/21 12:00 59 L 207/98 H 07/11/21 11:40 86 175/83 H 07/11/21 11:20 83 195/83 H 07/11/21 11:00 82 193/73 H 07/11/21 10:40 80 197/79 H 07/11/21 10:20 86 208/87 H 07/11/21 10:00 79 206/88 H 07/11/21 09:40 81 194/78 H 07/11/21 09:20 83 211/84 H 07/11/21 09:03 87 213/79 H 07/11/21 08:49 36.3 C L 91 H 07/11/21 08:10 85 173/69 H 07/11/21 08:00 36.6 C 20 94 PG Care Time/CCT Total # of Minutes Spent Total Time Spent with Patient: Total time spent is greater than 50% in coordination of care (as documented) at patient's floor/unit and/or counseling patient: Coding Level of Care Code 43948 Subseq Hosp Care Lvl 3 Diagnoses Bacteremia R78.81 Sepsis A41.9 Sepsis acute organ dysfunction status: unspecified Sepsis type: sepsis due to unspecified organism Dehiscence of wound T81.30XA Anemia N18.6; D63.1; Z99.2 Anemia type: due to chronic kidney disease Chronic kidney disease stage: on chronic dialysis End-stage renal disease on hemodialysis N18.6; Z99.2 CAD (coronary artery disease) I25.10 Depression F32.9 Dyslipidemia E78.5 Heart failure with mid-range ejection fraction I50.9 Hypertension I10 Hypertension type: unspecified Moderate calcific aortic stenosis I35.0 (1) Anemia Anemia type: due to chronic kidney disease Chronic kidney disease stage: on chronic dialysis Qualified Code(s): N18.6 - End stage renal disease; D63.1 - Anemia in chronic kidney disease; Z99.2 - Dependence on renal dialysis (2) Sepsis Sepsis acute organ dysfunction status: unspecified Sepsis type: sepsis due to unspecified organism Qualified Code(s): A41.9 - Sepsis, unspecified organism (3) Hypertension Hypertension type: unspecified Qualified Code(s): I10 - Essential (primary) hypertension
[2021-07-11] MEDS: ATORVASTATIN 40 MG TAB PO SCH (21:10)
[2021-07-11] MEDS: INSULIN GLARGINE SOLOSTAR 100 UNITS/ML 3 ML PEN SQ SCH (21:13)
[2021-07-11] MEDS: ACETAMINOPHEN 500 MG TAB PO PRN (21:18)
[2021-07-12] MEDS: POLYETHYLENE (MIRALAX) 17 GM PACK PO PRN ×2 (02:23→18:05)
--- NOTE | 2021-07-12 07:00 | Orthopedic Progress Note ---
Date of Service July 12, 2021 Assessment & Plan (1) Status post above-knee amputation of right lower extremity: Overall she doing well with the right knee amputation. She was recommended by infectious disease to be placed on oral antibiotics with Enterobacter growing consistently from the previous leg which has been amputated. She will be seen by physical therapy and Occupational Therapy to determined her amount of assistance and need. She is orthopedically stable for discharge when medically ready. Her H&H has been stable. She should follow-up in our office next Friday on July 18 for a dressing change and a wound check. Orthopedic discharge instructions were placed in the discharge summary. Jason Masters was seen and examined at bedside this morning. Overall she is doing very well. She denies any much pain in the right stump. She has been receiving her dialysis treatments. She has no complaints. Review of Systems All systems reviewed & are unremarkable except as noted in HPI & below. Physical Exam On physical examination of the right leg, the dressing was removed today and I pulled the drain. There was a little bit of bloody drainage on the dressing. There was no necrotic areas. The incision looks good. Results & Data Results & Data Laboratory Results . Diagnostic Findings . PG Care Time/CCT Total # of Minutes Spent Total Time Spent with Patient: Total time spent is greater than 50% in coordination of care (as documented) at patient's floor/unit and/or counseling patient: Coding Level of Care Code 72368 Post Operative Follow-Up Diagnoses Status post above-knee amputation of right lower extremity Z89.611
[2021-07-12] MEDS: hydrALAZINE TAB 50 MG TAB PO SCH ×3 (08:51→20:53)
[2021-07-12] MEDS: MULTIVITAMIN TAB PO SCH (08:51)
[2021-07-12] MEDS: CHOLECALCIFEROL 1,000 UNITS 25 MCG TAB PO SCH ×2 (08:51→20:52)
[2021-07-12] MEDS: ISOSORBIDE MONO EXTENDED REL 60 MG TABCR PO SCH (08:51)
[2021-07-12] MEDS: amLODIPine BESYLATE 5 MG TAB PO SCH ×2 (08:51→20:53)
[2021-07-12] MEDS: CALCIUM 600MG + VIT D 400 IU TAB PO SCH (08:51)
[2021-07-12] MEDS: VENLAFAXINE HCL XR 150 MG CAPXR PO SCH (08:52)
[2021-07-12] MEDS: ASPIRIN 81 MG ECTAB PO SCH ×2 (08:52→20:53)
[2021-07-12] MEDS: ASCORBIC ACID 500 MG TAB PO SCH (08:52)
[2021-07-12] MEDS: INSULIN ASPART PER UNIT SC SCH ×4 (09:11→20:54)
[2021-07-12] MEDS ORDERED: MAGNESIUM HYDROXIDE SUSP 30 ML UDC PO PRN (09:31)
[2021-07-12] MEDS ORDERED: bisacodyL 10 MG SUPP PR PRN (09:32)
--- NOTE | 2021-07-12 10:11 | Nephrology Progress Note ---
Date of Service July 12, 2021 Assessment & Plan (1) End-stage renal disease on hemodialysis: Plan: HD MWF. Completed treatment yesterday with adequate clearance. UF appropriate. AVF functioning well. Medications appropriately dosed for IHD. Next anticipated treatment tomorrow. (2) Anemia: Plan: 1 u PRBC transfusion support provided 07/08. Additional 2 u PRBC transfusion support + Epogen provided with HD 07/09. Repeat H/H tomorrow AM. (3) Infection of right knee: Plan: Remains on vancomycin with HD + cefepime. s/p debridement and hardware removal 07/07. POD# 2 s/p AKA. ID consult suggesting continued coverage for Enterobacter with PO such as cipro. Admission and Anticipated Discharge Date Admission Date: July 06, 2021 Subjective No acute events overnight. Tolerated HD well yesterday. No complications with treatment. Net UF 2.4 L. BP remains notable elevated. Denies symptoms of accelerated hypertension. No notable fluid retention. Pain control reasonable. Able to sit up in bed with PT today. Review of Systems Review of Systems: All systems reviewed & are unremarkable except as noted in HPI & below Physical Exam Constitutional: well developed; no acute distress Eyes: no scleral abnormality and no corneal abnormality ENMT: Mouth: no oral mucosal abnormality and oral mucous membranes not dry Neck: normal visual inspection and trachea midline Respiratory: normal respiratory effort Auscultation: lungs clear to auscultation bilaterally Cardiovascular: Rate/Rhythm: regular rate Heart Sounds: normal S1, normal S2 and + murmur Extremities: + AV fistula (ecchymosis, no notable hematoma; good thrill and bruit); no edema Musculoskeletal: Extremities: no cyanosis and no clubbing Skin: normal turgor; no lesions Neurologic: Motor/Sensory: no tremor and no asterixis Psychiatric: Orientation: alert and oriented x 3 Results & Data ([facility]) Vital Signs (Past 12 Hours) Vital Signs Temp Pulse Pulse Resp BP Pulse Ox 07/12/21 07:44 36.5 C 93 H 20 198/73 H 97 07/12/21 02:30 177/68 H 07/12/21 00:05 76 199/62 H Laboratory Results Laboratory Results - last 24 hr 07/11/21 07/11/21 07/11/21 10:30 13:01 17:10 POC Glucose 140 H 115 H 160 H 07/11/21 07/12/21 20:46 07:03 POC Glucose 136 H 127 H PG Care Time/CCT Total # of Minutes Spent Total Time Spent with Patient: Total time spent is greater than 50% in coordination of care (as documented) at patient's floor/unit and/or counseling patient: Coding Level of Care Code 44441 Subseq Hosp Care Lvl 3 Diagnoses End-stage renal disease on hemodialysis N18.6; Z99.2 Anemia N18.6; D63.1; Z99.2 Anemia type: due to chronic kidney disease Chronic kidney disease stage: on chronic dialysis Infection of right knee M00.9 (1) Anemia Anemia type: due to chronic kidney disease Chronic kidney disease stage: on chronic dialysis Qualified Code(s): N18.6 - End stage renal disease; D63.1 - Anemia in chronic kidney disease; Z99.2 - Dependence on renal dialysis
[2021-07-12] MEDS: SENNA 8.6 MG TAB PO SCH (10:34)
--- NOTE | 2021-07-12 12:23 | Hospitalist Progress Note ---
Date of Service July 12, 2021 Assessment & Plan (1) Bacteremia: Plan: - Presented with wound dehiscence s/p multiple surgeries and fever at HD - Completed Vancomycin from previous infection; Placed on Cefepime in-house -- Discussed with ID who completed consult to utilize Cipro to complete a 14 day total course (July 19) -- suspect should dose Cipro AFTER dialysis on dialysis days - S/P Incision and drainage extremity right knee, extensive debridement right knee, removal of implant from right patella, application of wound vac.(Right) - Bean Fritz -- 07/07 --> OR cx with enterobacter cloacae which is also present on BCx; repeat BCx with NGTD > 48 hours -- Previous Cx from knee with Enterococcus faecalis which is not currently growing ECHO --> NO VEGETATION -- Given gram negative organism, is less likely to seed which is of benefit Hgb 7.7 with 1 unit PRBC (gustavo from 6.8) -- transfused x 2 units on 07/09 and Hgb acceptable --> Checked iron panel --> iron 11, trans % sat 9 and nephrology has ordered dose of Venofer, EPO 20,000 to be given with H (2) Sepsis: Plan: 2nd to R knee infection; as above (3) Dehiscence of wound: Plan: Presents with yet another recurrence of wound dehiscence of the right knee and reported fevers at dialysis, but is afebrile; Postoperative infection of the internal right knee prosthesis No leukocytosis, vital signs are stable (chronic elevated BP in-hospital) ESR and CRP are elevated 88 & 31.1 respectively on admission Chest x-ray with evidence of volume overload but no pneumonia and no symptoms of pneumonia on admission UA ordered but not collected and she makes minimal urine Does have a sacral wound but it does not appear infected s/p Incision and drainage extremity right knee, extensive debridement right knee, removal of implant from right patella, application of wound vac.(Right) - Bean Fritz MD Pain controlled with tylenol/oxy -- mostly only using Tylenol Wound RN consulted Now S/P R AKA on 07/[address] Ly (4) Anemia: Plan: Hemoglobin chronically low (baseline 8-9) managed by nephrology with periodic Epogen and IV iron Hgb monitored and transfuse as necessary (5) End-stage renal disease on hemodialysis: Plan: Consult nephrology for inpatient hemodialysis management Her dialysis days are Friday Monitor volume status (6) CAD (coronary artery disease): Plan: No history of stents Resumed ASA 81mg BID post-operatively by ortho No chest pain reported Continue atorvastatin, isosorbide (7) Depression: Plan: Feeling worse with her mood lately with being in the hospital and rehab so much; also has sustained a lot of loss of family members in the past years. Today her spirits continue to improve and she feels less anxious now that the surgery is complete (8) Dyslipidemia: Plan: Continue statin (9) Heart failure with mid-range ejection fraction: Plan: Last echocardiogram 10/2020 with mild LV dysfunction EF 45-50%, moderate aortic stenosis, moderate MR Managed with dialysis for volume ECHO repeated given +BCx --> LV systolic function normal. No regional wma. Mild concentric LVH. EF 60-65%. Severe valvular aortic stenosis. Mild MR. NO VALVULAR vegetation identified. Compared to October 2020, minor progression in aortic stenosis. (10) Hypertension: Plan: - Variable Continue home medications of hydralazine, isosorbide, amlodipine (11) Moderate calcific aortic stenosis: Plan: As above, moderate on last echocardiogram --> now SEVERE. monitor BP control Plan: PT/OT - patient currently interested in rehab and would like to consider [facility] - Orthopedically stable for D/C; pending arrangements for rehab could D/C on oral Abx Admission and Anticipated Discharge Date Admission Date: July 06, 2021 Subjective No acute events overnight. BP has been running high and patient states this is common for her. She denies headache or issues. SHe did report some dizziness when first sitting up on the bedside but it subsided and she said that has been common lately for her as well. She states it helps with her abdominal bloating and it felt good to move. She continues to pass gas but no BM yet. She is tolerating a diet. Verbalizes no new complaints Review of Systems Review of Systems: All systems reviewed & are unremarkable except as noted in Subjective Physical Exam Physical Exam: Constitutional:L WD/WN Eyes: anicteric ENMT: Neck: trachea midline, n o JVD Respiratory: normal respiratory effort, lungs monique ar to auscultation but diminished at bases Cardiovascular:L Rate/Rhythm: regul ar rate and regula r rhythm Heart So unds: + murmur (3/ 6 IWONA at [facility]) Ve ssels: dorsalis pe dis pulses present (1+ bilaterally o n L) Extremities: no edema Chest (Breasts): Chest: normal insp ection of chest Gastrointestinal ( Abdomen): normal bowel sound s, soft, nontender Musculoskeletal: Extremities: no cy anosis and no club ivon; R AKA with s urgical dressing i n place C/D/I Neurologic: moves all extremit ies and awake incl uding RLE stump; n o focal motor defi cits Psychiatric: alert,oriented x 3 ; in good spirits and not anxious or depressed appeari ng Lymphatic: Skin : no lymphedema Results & Data Results & Data ([facility]) Vital Signs (Past 12 Hours) Vital Signs Temp Pulse Resp BP Pulse Ox 07/12/21 07:44 36.5 C 93 H 20 198/73 H 97 07/12/21 02:30 177/68 H PG Care Time/CCT Total # of Minutes Spent Total Time Spent with Patient: Total time spent is greater than 50% in coordination of care (as documented) at patient's floor/unit and/or counseling patient: Coding Level of Care Code 77008 Subseq Hosp Care Lvl 3 Diagnoses Bacteremia R78.81 Sepsis A41.9 Sepsis acute organ dysfunction status: unspecified Sepsis type: sepsis due to unspecified organism Dehiscence of wound T81.30XA Anemia N18.6; D63.1; Z99.2 Anemia type: due to chronic kidney disease Chronic kidney disease stage: on chronic dialysis End-stage renal disease on hemodialysis N18.6; Z99.2 CAD (coronary artery disease) I25.10 Depression F32.9 Dyslipidemia E78.5 Heart failure with mid-range ejection fraction I50.9 Hypertension I10 Hypertension type: unspecified Moderate calcific aortic stenosis I35.0 (1) Sepsis Sepsis acute organ dysfunction status: unspecified Sepsis type: sepsis due to unspecified organism Qualified Code(s): A41.9 - Sepsis, unspecified organism (2) Anemia Anemia type: due to chronic kidney disease Chronic kidney disease stage: on chronic dialysis Qualified Code(s): N18.6 - End stage renal disease; D63.1 - Anemia in chronic kidney disease; Z99.2 - Dependence on renal dialysis (3) Hypertension Hypertension type: unspecified Qualified Code(s): I10 - Essential (primary) hypertension
[2021-07-12] MEDS: CIPROFLOXACIN 500 MG TAB PO SCH (13:23)
[2021-07-12] MEDS: ATORVASTATIN 40 MG TAB PO SCH (20:53)
[2021-07-12] MEDS: INSULIN GLARGINE SOLOSTAR 100 UNITS/ML 3 ML PEN SQ SCH (20:54)
--- NOTE | 2021-07-13 10:51 | Nephrology Progress Note ---
Date of Service July 13, 2021 Assessment & Plan (1) End-stage renal disease on hemodialysis: Plan: HD MWF. Orders for HD today entered into EMR and reviewed with dialysis nurse. AVF functioning well. Qb at goal. Clearances have been acceptable. Electrolytes controlled. Will challenge for additional UF. BP elevated. Volume status overall acceptable. Medications appropriately dosed for IHD. Next anticipated treatment Friday. Possible discharge to rehab noted. (2) Anemia: Plan: 1 u PRBC transfusion support provided 07/08. Additional 2 u PRBC transfusion support + Epogen provided with HD 07/09. (3) Infection of right knee: Plan: Remains on vancomycin with HD + cefepime. s/p debridement and hardware removal 07/07. POD# 3 s/p AKA. Admission and Anticipated Discharge Date Admission Date: July 06, 2021 Subjective No acute events overnight. Minerva was seen and evaluated during HD today. She feels well. She denies pain. Tolerating dialysis well. Review of Systems Review of Systems: All systems reviewed & are unremarkable except as noted in HPI & below Physical Exam Constitutional: well developed; no acute distress Eyes: no scleral abnormality and no corneal abnormality ENMT: Mouth: no oral mucosal abnormality and oral mucous membranes not dry Neck: normal visual inspection and trachea midline Respiratory: normal respiratory effort Auscultation: lungs clear to auscultation bilaterally Cardiovascular: Rate/Rhythm: regular rate Heart Sounds: normal S1, normal S2 and + murmur Extremities: + AV fistula (ecchymosis, no notable hematoma; good thrill and bruit); no edema Musculoskeletal: Extremities: no cyanosis and no clubbing Skin: normal turgor; no lesions Neurologic: Motor/Sensory: no tremor and no asterixis Psychiatric: Orientation: alert and oriented x 3 Results & Data ([facility]) Vital Signs (Past 12 Hours) Vital Signs Temp Pulse Resp BP Pulse Ox 07/13/21 07:31 36.7 C 75 12 178/70 H 96 Laboratory Results Laboratory Results - last 24 hr 07/12/21 07/12/21 07/12/21 12:35 18:06 20:36 POC Glucose 120 H 99 88 07/13/21 07:52 POC Glucose 71 PG Care Time/CCT Total # of Minutes Spent Total Time Spent with Patient: Total time spent is greater than 50% in coordination of care (as documented) at patient's floor/unit and/or counseling patient: Coding Level of Care Code 52104 Subseq Hosp Care Lvl 3 Diagnoses End-stage renal disease on hemodialysis N18.6; Z99.2 Anemia N18.6; D63.1; Z99.2 Anemia type: due to chronic kidney disease Chronic kidney disease stage: on chronic dialysis Infection of right knee M00.9 (1) Anemia Anemia type: due to chronic kidney disease Chronic kidney disease stage: on chronic dialysis Qualified Code(s): N18.6 - End stage renal disease; D63.1 - Anemia in chronic kidney disease; Z99.2 - Dependence on renal dialysis
[2021-07-13] MEDS: VENLAFAXINE HCL XR 150 MG CAPXR PO SCH (14:15)
[2021-07-13] MEDS: CHOLECALCIFEROL 1,000 UNITS 25 MCG TAB PO SCH ×2 (14:16→21:28)
[2021-07-13] MEDS: ASPIRIN 81 MG ECTAB PO SCH ×2 (14:16→21:27)
[2021-07-13] MEDS: MULTIVITAMIN TAB PO SCH (14:16)
[2021-07-13] MEDS: SENNA 8.6 MG TAB PO SCH (14:16)
[2021-07-13] MEDS: CIPROFLOXACIN 500 MG TAB PO SCH (14:16)
[2021-07-13] MEDS: amLODIPine BESYLATE 5 MG TAB PO SCH ×2 (14:16→21:27)
[2021-07-13] MEDS: ISOSORBIDE MONO EXTENDED REL 60 MG TABCR PO SCH (14:17)
[2021-07-13] MEDS: CALCIUM 600MG + VIT D 400 IU TAB PO SCH (14:17)
[2021-07-13] MEDS: ASCORBIC ACID 500 MG TAB PO SCH (14:18)
[2021-07-13] MEDS: hydrALAZINE TAB 50 MG TAB PO SCH ×3 (14:18→21:28)
[2021-07-13] MEDS: INSULIN ASPART PER UNIT SC SCH ×4 (14:24→21:30)
[2021-07-13 15:43] LABS: Hematocrit (blood only) 37.6 % (37-47)
[2021-07-13 16:04] LABS: Albumin Level 3.1 gm/dl (3.4-5.0); BUN Creatinine Ratio 11.1 (10-20); Calcium 9.9 mg/dl (8.5-10.1); Creatinine Clr Calc Pharmacy 29.4 ml/min; Est GFR (African American) 32.7 ml/min; Est GFR (Non-African American) 28.2 ml/min; Phosphorus 1.8 mg/dl (2.5-4.9); Potassium 4.1 mmol/L (3.5-5.1)
--- NOTE | 2021-07-13 17:12 | Hospitalist Progress Note ---
Date of Service July 13, 2021 Assessment & Plan (1) Bacteremia: Plan: - Presented with wound dehiscence s/p multiple surgeries and fever at HD - Completed Vancomycin from previous infection; Placed on Cefepime in-house -- Discussed with ID who completed consult to utilize Cipro to complete a 14 day total course (July 19) -- suspect should dose Cipro AFTER dialysis on dialysis days - S/P Incision and drainage extremity right knee, extensive debridement right knee, removal of implant from right patella, application of wound vac.(Right) - Bean Fritz -- 07/07 --> OR cx with enterobacter cloacae which is also present on BCx; repeat BCx with NGTD > 48 hours -- Previous Cx from knee with Enterococcus faecalis which is not currently growing ECHO --> NO VEGETATION -- Given gram negative organism, is less likely to seed which is of benefit Hgb 7.7 with 1 unit PRBC (gustavo from 6.8) -- transfused x 2 units on 07/09 and Hgb acceptable --> Checked iron panel --> iron 11, trans % sat 9 and nephrology has ordered dose of Venofer, EPO 20,000 to be given with H (2) Sepsis: Plan: 2nd to R knee infection; as above (3) Dehiscence of wound: Plan: Presents with yet another recurrence of wound dehiscence of the right knee and reported fevers at dialysis, but is afebrile; Postoperative infection of the internal right knee prosthesis No leukocytosis, vital signs are stable (chronic elevated BP in-hospital) ESR and CRP are elevated 88 & 31.1 respectively on admission Chest x-ray with evidence of volume overload but no pneumonia and no symptoms of pneumonia on admission UA ordered but not collected and she makes minimal urine Does have a sacral wound but it does not appear infected s/p Incision and drainage extremity right knee, extensive debridement right knee, removal of implant from right patella, application of wound vac.(Right) - Bean Fritz MD Pain controlled with tylenol/oxy -- mostly only using Tylenol Wound RN consulted Now S/P R AKA on 07/[address] Ly (4) Anemia: Plan: Hemoglobin chronically low (baseline 8-9) managed by nephrology with periodic Epogen and IV iron Hgb monitored and transfuse as necessary (5) End-stage renal disease on hemodialysis: Plan: Consult nephrology for inpatient hemodialysis management Her dialysis days are Friday Monitor volume status (6) CAD (coronary artery disease): Plan: No history of stents Resumed ASA 81mg BID post-operatively by ortho No chest pain reported Continue atorvastatin, isosorbide (7) Depression: Plan: Feeling worse with her mood lately with being in the hospital and rehab so much; also has sustained a lot of loss of family members in the past years. Today her spirits continue to improve and she feels less anxious now that the surgery is complete (8) Dyslipidemia: Plan: Continue statin (9) Heart failure with mid-range ejection fraction: Plan: Last echocardiogram 10/2020 with mild LV dysfunction EF 45-50%, moderate aortic stenosis, moderate MR Managed with dialysis for volume ECHO repeated given +BCx --> LV systolic function normal. No regional wma. Mild concentric LVH. EF 60-65%. Severe valvular aortic stenosis. Mild MR. NO VALVULAR vegetation identified. Compared to October 2020, minor progression in aortic stenosis. (10) Hypertension: Plan: - Variable Continue home medications of hydralazine, isosorbide, amlodipine (11) Moderate calcific aortic stenosis: Plan: As above, moderate on last echocardiogram --> now SEVERE. monitor BP control Plan: PT/OT - patient currently interested in rehab and awaiting referrals - Orthopedically stable for D/C; pending arrangements for rehab could D/C on oral Abx Admission and Anticipated Discharge Date Admission Date: July 06, 2021 Subjective No acute events overnight. Reports feeling well today just fatigued from dialysis. Reports less bloating today. Has not required opiates for pain. Barely requires pain control. Review of Systems Review of Systems: All systems reviewed & are unremarkable except as noted in Subjective Physical Exam Physical Exam: Constitutional:L WD/WN Eyes: anicteric ENMT: Neck: trachea midline, n o JVD Respiratory: normal respiratory effort, lungs monique ar to auscultation but diminished at bases Cardiovascular:L Rate/Rhythm: regul ar rate and regula r rhythm Heart So unds: + murmur (3/ 6 IWONA at [facility]) Ve ssels: dorsalis pe dis pulses present (1+ bilaterally o n L) Extremities: no edema Chest (Breasts): Chest: normal insp ection of chest Gastrointestinal ( Abdomen): normal bowel sound s, soft, nontender Musculoskeletal: Extremities: no cy anosis and no club ivon; R AKA with s urgical dressing i n place C/D/I Neurologic: moves all extremit ies and awake incl uding RLE stump; n o focal motor defi cits Psychiatric: alert,oriented x 3 ; in good spirits and not anxious or depressed appeari ng Lymphatic: Skin : no lymphedema Results & Data Results & Data ([facility]) Vital Signs (Past 12 Hours) Vital Signs Temp Pulse Pulse Pulse Resp BP BP 07/13/21 15:44 36.9 C 77 16 109/62 07/13/21 13:00 59 L 116/63 07/13/21 12:40 82 120/84 07/13/21 12:20 69 131/64 07/13/21 12:00 76 132/64 07/13/21 11:40 76 148/76 H 07/13/21 11:20 75 144/69 H 07/13/21 11:00 78 155/70 H 07/13/21 10:40 77 123/61 07/13/21 10:20 78 132/63 07/13/21 10:00 78 180/77 H 07/13/21 09:44 36.4 C L 84 07/13/21 07:31 36.7 C 75 12 178/70 H Pulse Ox 07/13/21 15:44 95 07/13/21 13:00 07/13/21 12:40 07/13/21 12:20 07/13/21 12:00 07/13/21 11:40 07/13/21 11:20 07/13/21 11:00 07/13/21 10:40 07/13/21 10:20 07/13/21 10:00 07/13/21 09:44 07/13/21 07:31 96 PG Care Time/CCT Total # of Minutes Spent Total Time Spent with Patient: Total time spent is greater than 50% in coordination of care (as documented) at patient's floor/unit and/or counseling patient: Coding Level of Care Code 37492 Subseq Hosp Care Lvl 2 Diagnoses Bacteremia R78.81 Sepsis A41.9 Sepsis acute organ dysfunction status: unspecified Sepsis type: sepsis due to unspecified organism Dehiscence of wound T81.30XA Anemia N18.6; D63.1; Z99.2 Anemia type: due to chronic kidney disease Chronic kidney disease stage: on chronic dialysis End-stage renal disease on hemodialysis N18.6; Z99.2 CAD (coronary artery disease) I25.10 Depression F32.9 Dyslipidemia E78.5 Heart failure with mid-range ejection fraction I50.9 Hypertension I10 Hypertension type: unspecified Moderate calcific aortic stenosis I35.0 (1) Sepsis Sepsis acute organ dysfunction status: unspecified Sepsis type: sepsis due to unspecified organism Qualified Code(s): A41.9 - Sepsis, unspecified organism (2) Anemia Anemia type: due to chronic kidney disease Chronic kidney disease stage: on chronic dialysis Qualified Code(s): N18.6 - End stage renal disease; D63.1 - Anemia in chronic kidney disease; Z99.2 - Dependence on renal dialysis (3) Hypertension Hypertension type: unspecified Qualified Code(s): I10 - Essential (primary) hypertension
[2021-07-13] MEDS: ATORVASTATIN 40 MG TAB PO SCH (21:28)
[2021-07-13] MEDS: INSULIN GLARGINE SOLOSTAR 100 UNITS/ML 3 ML PEN SQ SCH (21:29)
[2021-07-13] MEDS: ACETAMINOPHEN 500 MG TAB PO PRN (21:49)
--- NOTE | 2021-07-14 07:40 | Orthopedic Progress Note ---
Date of Service July 14, 2021 Assessment & Plan (1) Status post above-knee amputation of right lower extremity: Overall she is doing about as well as expected. She is getting dialysis treatments. She is not having much pain in the stump and she is participating with therapy. We are currently awaiting placement at a rehab facility. She is orthopedically stable for discharge when a bed becomes available. Full orthopedic discharge instructions have been placed in the discharge summary. If you have any further questions please contact me personally on my cell phone at [phone]. Jason Masters was seen and examined at bedside this morning. Overall she is doing fairly well. She is not having much pain in her right stump. She has been able to participate with physical therapy. She has no complaints.. Review of Systems All systems reviewed & are unremarkable except as noted in HPI & below. Physical Exam On physical examination of the right stump, the dressing is clean and dry.. Results & Data Results & Data Laboratory Results . Diagnostic Findings . PG Care Time/CCT Total # of Minutes Spent Total Time Spent with Patient: Total time spent is greater than 50% in coordination of care (as documented) at patient's floor/unit and/or counseling patient: Coding Level of Care Code 48337 Post Operative Follow-Up Diagnoses Status post above-knee amputation of right lower extremity Z89.611
[2021-07-14] MEDS: ASPIRIN 81 MG ECTAB PO SCH ×2 (08:25→21:16)
[2021-07-14] MEDS: ISOSORBIDE MONO EXTENDED REL 60 MG TABCR PO SCH (08:25)
[2021-07-14] MEDS: VENLAFAXINE HCL XR 150 MG CAPXR PO SCH (08:25)
[2021-07-14] MEDS: hydrALAZINE TAB 50 MG TAB PO SCH ×3 (08:25→21:16)
[2021-07-14] MEDS: amLODIPine BESYLATE 5 MG TAB PO SCH ×2 (08:25→21:17)
[2021-07-14] MEDS: SENNA 8.6 MG TAB PO SCH (08:25)
[2021-07-14] MEDS: CALCIUM 600MG + VIT D 400 IU TAB PO SCH (08:25)
[2021-07-14] MEDS: ASCORBIC ACID 500 MG TAB PO SCH (08:25)
[2021-07-14] MEDS: CHOLECALCIFEROL 1,000 UNITS 25 MCG TAB PO SCH ×2 (08:25→21:15)
[2021-07-14] MEDS: MULTIVITAMIN TAB PO SCH (08:25)
[2021-07-14] MEDS: CIPROFLOXACIN 500 MG TAB PO SCH (08:25)
--- NOTE | 2021-07-14 08:57 | Nephrology Progress Note ---
Date of Service July 14, 2021 Assessment & Plan (1) End-stage renal disease on hemodialysis: Plan: * Volume status and electrolyte balance are acceptable at this time. No acute indication for HD today * Outpatient HD MWF: Rx 3.5 hrs, 180 optiflux, Qb 350/ Qd 800, 2K bath. EDW 83.5 (will need to be adjusted due to R AKA) * Next anticipated treatment Friday (2) Anemia: Plan: * 1 u PRBC transfusion support provided 07/08. Additional 2 u PRBC transfusion support + Epogen provided with HD 07/09. (3) Infection of right knee: Plan: * s/p debridement and hardware removal R knee 07/07 * s/p R AKA 07/10/21 Admission and Anticipated Discharge Date Admission Date: July 06, 2021 Subjective Ms. Bolivar was evaluated in her hospital room this morning. She c/o mild R AKA incisional discomfort but voices no other concerns. She was last dialyzed yesterday for 3L UF. Review of Systems Constitutional: no fever Eyes: no worsening vision and no problem reported Ear, Nose, Mouth, Throat: no problem reported Respiratory: no cough and no dyspnea Cardiovascular: no chest pain, no palpitations and no edema Gastrointestinal: no abdominal pain, no nausea, no vomiting and no diarrhea/ loose stools Genitourinary: no dysuria and no hematuria Musculoskeletal: no back pain Integumentary: no rash Neurologic: no confusion Physical Exam Constitutional: + in distress Eyes: PERRL, conjunctivae normal, anicteric sclerae ENMT: external ear and nose normal, oropharynx normal Neck: trachea midline, no thyromegaly Respiratory: normal respiratory effort, lungs clear to auscultation Cardiovascular: RRR, no murmur, no edema Extremities: + AV fistula (+ bruit) Gastrointestinal (Abdomen): normal bowel sounds, soft, nontender, no hepatosplenomegaly Skin: no rashes, warm and dry Neurologic: awake; not confused Results & Data ([facility]) Vital Signs (Past 12 Hours) Vital Signs Temp Pulse Pulse Resp BP Pulse Ox 07/14/21 07:36 37 C 78 16 174/68 H 94 07/13/21 21:14 36.7 C 77 16 124/68 95 Laboratory Results Laboratory Tests 07/14/21 07/14/21 09:06 09:06 WBC 9.89 Hgb 12.0 Hct 38.9 Plt Count 309 Sodium 135 L Potassium 3.8 Chloride 100 Carbon Dioxide 28 BUN 32 H Creatinine 2.57 H D Glucose 98 Calcium 10.1 PG Care Time/CCT Total # of Minutes Spent Total Time Spent with Patient: Total time spent is greater than 50% in coordination of care (as documented) at patient's floor/unit and/or counseling patient: Coding Level of Care Code 41219 Subseq Hosp Care Lvl 3 Diagnoses End-stage renal disease on hemodialysis N18.6; Z99.2 Anemia N18.6; D63.1; Z99.2 Anemia type: due to chronic kidney disease Chronic kidney disease stage: on chronic dialysis Infection of right knee M00.9 (1) Anemia Anemia type: due to chronic kidney disease Chronic kidney disease stage: on chronic dialysis Qualified Code(s): N18.6 - End stage renal disease; D63.1 - Anemia in chronic kidney disease; Z99.2 - Dependence on renal dialysis
[2021-07-14] MEDS: INSULIN ASPART PER UNIT SC SCH ×4 (09:13→21:13)
[2021-07-14 09:36] LABS: Hematocrit (blood only) 38.9 % (37-47); Mean Corpuscular Hemoglobin 28.4 pg (25-34); Mean Corpuscular Volume 92.2 fL (80-100); Mean Platelet Volume 9.3 fL (7.4-10.4); Platelet Count 309 K/uL (130-400); RDW Coefficient of Variation 16.3 % (11.5-14.5); RDW Standard Deviation 53.7 fL (36.4-46.3); Red Blood Count 4.22 M/uL (4.2-5.4); White Blood Count 9.89 K/uL (4.8-10.8)
[2021-07-14 09:38] LABS: Mean Corpuscular Hgb Conc 30.8 g/dL (32-36)
[2021-07-14 10:14] LABS: BUN Creatinine Ratio 12.5 (10-20); Calcium 10.1 mg/dl (8.5-10.1); Creatinine Clr Calc Pharmacy 19.5 ml/min; Est GFR (Non-African American) 17.2 ml/min; Potassium 3.8 mmol/L (3.5-5.1)
--- NOTE | 2021-07-14 11:47 | Hospitalist Progress Note ---
Date of Service July 14, 2021 Assessment & Plan (1) Bacteremia: Plan: - Presented with wound dehiscence s/p multiple surgeries and fever at HD - Completed Vancomycin from previous infection; Placed on Cefepime in-house -- Discussed with ID who completed consult to utilize Cipro to complete a 14 day total course (July 19) -- suspect should dose Cipro AFTER dialysis on dialysis days - S/P Incision and drainage extremity right knee, extensive debridement right knee, removal of implant from right patella, application of wound vac.(Right) - Bean Fritz -- 07/07 --> OR cx with enterobacter cloacae which is also present on BCx; repeat BCx with NGTD > 48 hours -- Previous Cx from knee with Enterococcus faecalis which is not currently growing ECHO --> NO VEGETATION -- Given gram negative organism, is less likely to seed which is of benefit Hgb 7.7 with 1 unit PRBC (gustavo from 6.8) earlier in admission -- transfused x 2 units on 07/09 and Hgb continues to be acceptable on labs --> Checked iron panel --> iron 11, trans % sat 9 and nephrology has ordered d ose of Venofer, EPO 20,000 to be given with H (2) Sepsis: Plan: 2nd to R knee infection; as above (3) Dehiscence of wound: Plan: Presents with yet another recurrence of wound dehiscence of the right knee and reported fevers at dialysis, but is afebrile; Postoperative infection of the internal right knee prosthesis No leukocytosis, vital signs are stable (chronic elevated BP in-hospital) ESR and CRP are elevated 88 & 31.1 respectively on admission Chest x-ray with evidence of volume overload but no pneumonia and no symptoms of pneumonia on admission UA ordered but not collected and she makes minimal urine Does have a sacral wound but it does not appear infected s/p Incision and drainage extremity right knee, extensive debridement right knee, removal of implant from right patella, application of wound vac.(Right) - Bean Fritz MD Pain controlled with tylenol/oxy -- mostly only using Tylenol and that is even rare Wound RN consulted Now S/P R AKA on 07/[address] Ly Having BMs currently and will monitor (4) Type 2 diabetes mellitus with insulin therapy: Plan: - Had low BSG on 07/14 - Reduce Lantus to 12 units and continue SSI (5) Anemia: Plan: Hemoglobin chronically low (baseline 8-9) managed by nephrology with periodic Epogen and IV iron Hgb monitored and has been stable and transfuse as necessary (6) End-stage renal disease on hemodialysis: Plan: Consult nephrology for inpatient hemodialysis management Her dialysis days are Friday Monitor volume status (7) CAD (coronary artery disease): Plan: No history of stents Resumed ASA 81mg BID post-operatively by ortho No chest pain reported Continue atorvastatin, isosorbide (8) Depression: Plan: Feeling worse with her mood lately with being in the hospital and rehab so much; also has sustained a lot of loss of family members in the past years. Her spirits continue to be improved and she feels less anxious now that the surgery is complete; states she misses her cats as she hasn't been home much in the past several weeks due to hospitalizations/rehabs (9) Dyslipidemia: Plan: Continue statin (10) Heart failure with mid-range ejection fraction: Plan: Last echocardiogram 10/2020 with mild LV dysfunction EF 45-50%, moderate aortic stenosis, moderate MR Managed with dialysis for volume ECHO repeated given +BCx --> LV systolic function normal. No regional wma. Mild concentric LVH. EF 60-65%. Severe valvular aortic stenosis. Mild MR. NO VALVULAR vegetation identified. Compared to October 2020, minor progression in aortic stenosis. (11) Hypertension: Plan: - Variable; tends to run high but asymptomatic Continue home medications of hydralazine, isosorbide, amlodipine (12) Moderate calcific aortic stenosis: Plan: As above, moderate on last echocardiogram --> now SEVERE. monitor BP control Plan: PT/OT - patient currently interested in rehab and awaiting referrals - Orthopedically stable for D/C; pending arrangements for rehab could D/C on oral Abx Admission and Anticipated Discharge Date Admission Date: July 06, 2021 Subjective No acute events overnight. Reporting no pain at this time and has only required Tylenol rarely. She reports poor sleep overnight but states she was going to take a nap this AM. She did have a small BM yesterday and a smear today which she said did help her feel less bloated. She is tolerating a diet without issue. She is still interested in rehab and awaiting determination Review of Systems Review of Systems: All systems reviewed & are unremarkable except as noted in Subjective Physical Exam Physical Exam: Constitutional:L WD/WN Eyes: anicteric ENMT: Neck: trachea midline, n o JVD Respiratory: normal respiratory effort, lungs monique ar to auscultation but diminished at bases Cardiovascular:L Rate/Rhythm: regul ar rate and regula r rhythm Heart So unds: + murmur (3/ 6 IWONA at [facility]) Ve ssels: dorsalis pe dis pulses present (1+ bilaterally o n L) Extremities: no edema Chest (Breasts): Chest: normal insp ection of chest Gastrointestinal ( Abdomen): normal bowel sound s, soft, nontender Musculoskeletal: Extremities: no cy anosis and no club ivon; R AKA with s urgical dressing i n place C/D/I Neurologic: moves all extremit ies including RLE stump; no focal mo tor deficits Psychiatric: alert,oriented x 3 ; in good spirits Lymphatic: Skin : no lymphedema Results & Data Results & Data ([facility]) Vital Signs (Past 12 Hours) Vital Signs Temp Pulse Resp BP Pulse Ox 07/14/21 07:36 37 C 78 16 174/68 H 94 PG Care Time/CCT Total # of Minutes Spent Total Time Spent with Patient: Total time spent is greater than 50% in coordination of care (as documented) at patient's floor/unit and/or counseling patient: Coding Level of Care Code 84126 Subseq Hosp Care Lvl 2 Diagnoses Bacteremia R78.81 Sepsis A41.9 Sepsis acute organ dysfunction status: unspecified Sepsis type: sepsis due to unspecified organism Dehiscence of wound T81.30XA Anemia N18.6; D63.1; Z99.2 Anemia type: due to chronic kidney disease Chronic kidney disease stage: on chronic dialysis End-stage renal disease on hemodialysis N18.6; Z99.2 CAD (coronary artery disease) I25.10 Depression F32.9 Dyslipidemia E78.5 Heart failure with mid-range ejection fraction I50.9 Hypertension I10 Hypertension type: unspecified Moderate calcific aortic stenosis I35.0 Type 2 diabetes mellitus with insulin therapy E11.9; Z79.4 (1) Sepsis Sepsis acute organ dysfunction status: unspecified Sepsis type: sepsis due to unspecified organism Qualified Code(s): A41.9 - Sepsis, unspecified organism (2) Anemia Anemia type: due to chronic kidney disease Chronic kidney disease stage: on chronic dialysis Qualified Code(s): N18.6 - End stage renal disease; D63.1 - Anemia in chronic kidney disease; Z99.2 - Dependence on renal dialysis (3) Hypertension Hypertension type: unspecified Qualified Code(s): I10 - Essential (primary) hypertension
[2021-07-14] MEDS: INSULIN GLARGINE SOLOSTAR 100 UNITS/ML 3 ML PEN SQ SCH (21:13)
[2021-07-14] MEDS: ATORVASTATIN 40 MG TAB PO SCH (21:15)
[2021-07-15 07:25] LABS: Hematocrit (blood only) 35.1 % (37-47); Mean Corpuscular Hemoglobin 28.4 pg (25-34); Mean Corpuscular Hgb Conc 31.3 g/dL (32-36); Mean Corpuscular Volume 90.7 fL (80-100); Mean Platelet Volume 9.3 fL (7.4-10.4); Platelet Count 287 K/uL (130-400); RDW Coefficient of Variation 16.2 % (11.5-14.5); RDW Standard Deviation 52.6 fL (36.4-46.3); Red Blood Count 3.87 M/uL (4.2-5.4); White Blood Count 10.46 K/uL (4.8-10.8)
[2021-07-15 08:01] LABS: BUN Creatinine Ratio 15.3 (10-20); Calcium 10.1 mg/dl (8.5-10.1); Creatinine Clr Calc Pharmacy 14.3 ml/min; Est GFR (African American) 13.6 ml/min; Est GFR (Non-African American) 11.8 ml/min; Potassium 4.2 mmol/L (3.5-5.1)
[2021-07-15] MEDS: ASPIRIN 81 MG ECTAB PO SCH ×2 (08:31→21:44)
[2021-07-15] MEDS: amLODIPine BESYLATE 5 MG TAB PO SCH ×2 (08:31→21:43)
[2021-07-15] MEDS: ASCORBIC ACID 500 MG TAB PO SCH (08:31)
[2021-07-15] MEDS: hydrALAZINE TAB 50 MG TAB PO SCH ×3 (08:31→21:45)
[2021-07-15] MEDS: CIPROFLOXACIN 500 MG TAB PO SCH (08:31)
[2021-07-15] MEDS: VENLAFAXINE HCL XR 150 MG CAPXR PO SCH (08:32)
[2021-07-15] MEDS: SENNA 8.6 MG TAB PO SCH (08:32)
[2021-07-15] MEDS: ISOSORBIDE MONO EXTENDED REL 60 MG TABCR PO SCH (08:32)
[2021-07-15] MEDS: CALCIUM 600MG + VIT D 400 IU TAB PO SCH (08:32)
[2021-07-15] MEDS: MULTIVITAMIN TAB PO SCH (08:32)
[2021-07-15] MEDS: CHOLECALCIFEROL 1,000 UNITS 25 MCG TAB PO SCH ×2 (09:36→21:44)
[2021-07-15] MEDS: INSULIN ASPART PER UNIT SC SCH ×4 (09:41→21:46)
--- NOTE | 2021-07-15 11:20 | Nephrology Progress Note ---
Date of Service July 15, 2021 Assessment & Plan (1) End-stage renal disease on hemodialysis: Plan: * Volume status and electrolyte balance are acceptable at this time. No acute indication for HD today * Outpatient HD MWF: Rx 3.5 hrs, 180 optiflux, Qb 350/ Qd 800, 2K bath. EDW 83.5 (will need to be adjusted due to R AKA) * Next anticipated treatment tomorrow (2) Anemia: Plan: * 1 u PRBC transfusion support provided 07/08. Additional 2 u PRBC transfusion support + Epogen provided with HD 07/09. (3) Infection of right knee: Plan: * s/p debridement and hardware removal R knee 07/07 * s/p R AKA 07/10/21 Admission and Anticipated Discharge Date Admission Date: July 06, 2021 Subjective Ms. Bolivar was evaluated in her hospital room this morning. She c/o mild R AKA incisional discomfort but voices no other concerns. Review of Systems Constitutional: no fever Eyes: no worsening vision and no problem reported Ear, Nose, Mouth, Throat: no problem reported Respiratory: no cough and no dyspnea Cardiovascular: no chest pain, no palpitations and no edema Gastrointestinal: no abdominal pain, no nausea, no vomiting and no diarrhea/loose stools Genitourinary: no dysuria and no hematuria Musculoskeletal: no back pain Integumentary: no rash Neurologic: no confusion Physical Exam Constitutional: + in distress Eyes: PERRL, conjunctivae normal, anicteric sclerae ENMT: external ear and nose normal, oropharynx normal Neck: trachea midline, no thyromegaly Respiratory: normal respiratory effort, lungs clear to auscultation Cardiovascular: RRR, no murmur, no edema Extremities: + AV fistula (+ bruit) Gastrointestinal (Abdomen): normal bowel sounds, soft, nontender, no hepatosplenomegaly Skin: no rashes, warm and dry Neurologic: awake; not confused Results & Data ([facility]) Vital Signs (Past 12 Hours) Vital Signs Temp Pulse Pulse Resp BP Pulse Ox 07/15/21 09:43 180/88 H 07/15/21 07:30 36.7 C 79 18 192/63 H 90 07/14/21 23:26 37.0 C 90 15 186/63 H 91 Laboratory Results Laboratory Tests 07/15/21 07/15/21 06:59 06:59 WBC 10.46 Hgb 11.0 L Hct 35.1 L Plt Count 287 Sodium 129 L Potassium 4.2 Chloride 97 L Carbon Dioxide 25 BUN 54 H D Creatinine 3.52 H D Glucose 148 H PG Care Time/CCT Total # of Minutes Spent Total Time Spent with Patient: Total time spent is greater than 50% in coordination of care (as documented) at patient's floor/unit and/or counseling patient: Coding Level of Care Code 21775 Subseq Hosp Care Lvl 3 Diagnoses End-stage renal disease on hemodialysis N18.6; Z99.2 Anemia N18.6; D63.1; Z99.2 Anemia type: due to chronic kidney disease Chronic kidney disease stage: on chronic dialysis Infection of right knee M00.9 (1) Anemia Anemia type: due to chronic kidney disease Chronic kidney disease stage: on chronic dialysis Qualified Code(s): N18.6 - End stage renal disease; D63.1 - Anemia in chronic kidney disease; Z99.2 - Dependence on renal dialysis
[2021-07-15] MEDS: ACETAMINOPHEN 500 MG TAB PO PRN (12:05)
[2021-07-15] MEDS ORDERED: MELATONIN 3 MG TAB PO PRN (12:22)
--- NOTE | 2021-07-15 13:27 | Hospitalist Progress Note ---
Date of Service July 15, 2021 Assessment & Plan (1) Bacteremia: Plan: - Presented with wound dehiscence s/p multiple surgeries and fever at HD - Completed Vancomycin from previous infection; Placed on Cefepime in-house -- Discussed with ID who completed consult to utilize Cipro to complete a 14 day total course (July 19) -- suspect should dose Cipro AFTER dialysis on dialysis days - S/P Incision and drainage extremity right knee, extensive debridement right knee, removal of implant from right patella, application of wound vac.(Right) - Bean Fritz -- 07/07 --> OR cx with enterobacter cloacae which is also present on BCx; repeat BCx with NGTD > 48 hours -- Previous Cx from knee with Enterococcus faecalis which is not currently growing ECHO --> NO VEGETATION -- Given gram negative organism, is less likely to seed which is of benefit Hgb 7.7 with 1 unit PRBC (gustavo from 6.8) earlier in admission -- transfused x 2 units on 07/09 and Hgb continues to be acceptable on labs --> Checked iron panel --> iron 11, trans % sat 9 and nephrology has ordered d ose of Venofer, EPO 20,000 to be given with H (2) Sepsis: Plan: 2nd to R knee infection; as above (3) Dehiscence of wound: Plan: Presents with yet another recurrence of wound dehiscence of the right knee and reported fevers at dialysis, but is afebrile; Postoperative infection of the internal right knee prosthesis No leukocytosis, vital signs are stable (chronic elevated BP in-hospital) ESR and CRP are elevated 88 & 31.1 respectively on admission Chest x-ray with evidence of volume overload but no pneumonia and no symptoms of pneumonia on admission UA ordered but not collected and she makes minimal urine Does have a sacral wound but it does not appear infected s/p Incision and drainage extremity right knee, extensive debridement right knee, removal of implant from right patella, application of wound vac.(Right) - Bean Fritz MD Pain controlled with tylenol/oxy -- mostly only using Tylenol and that is even rare Wound RN consulted Now S/P R AKA on 07/[address] Ly Having BMs currently and will monitor (4) Type 2 diabetes mellitus with insulin therapy: Plan: - Had low BSG on 07/14 - Reduced Lantus to 12 units and continue SSI (5) Anemia: Plan: Hemoglobin chronically low (baseline 8-9) managed by nephrology with periodic Epogen and IV iron Hgb monitored and has been stable and transfuse as necessary (6) End-stage renal disease on hemodialysis: Plan: Consult nephrology for inpatient hemodialysis management Her dialysis days are Friday Monitor volume status (7) CAD (coronary artery disease): Plan: No history of stents Resumed ASA 81mg BID post-operatively by ortho No chest pain reported Continue atorvastatin, isosorbide (8) Depression: Plan: Feeling worse with her mood lately with being in the hospital and rehab so much; also has sustained a lot of loss of family members in the past years. Her spirits continue to be improved and she feels less anxious now that the surgery is complete; states she misses her cats as she hasn't been home much in the past several weeks due to hospitalizations/rehabs (9) Dyslipidemia: Plan: Continue statin (10) Heart failure with mid-range ejection fraction: Plan: Last echocardiogram 10/2020 with mild LV dysfunction EF 45-50%, moderate aortic stenosis, moderate MR Managed with dialysis for volume ECHO repeated given +BCx --> LV systolic function normal. No regional wma. Mild concentric LVH. EF 60-65%. Severe valvular aortic stenosis. Mild MR. NO VALVULAR vegetation identified. Compared to October 2020, minor progression in aortic stenosis. (11) Hypertension: Plan: - Variable; tends to run high but asymptomatic Continue home medications of hydralazine, isosorbide, amlodipine (12) Moderate calcific aortic stenosis: Plan: As above, moderate on last echocardiogram --> now SEVERE. monitor BP control Plan: PT/OT - patient currently interested in rehab and awaiting referrals - Orthopedically stable for D/C; pending arrangements for rehab could D/C on oral Abx Admission and Anticipated Discharge Date Admission Date: July 06, 2021 Subjective No acute events overnight. Reports some pain in the stump today but states the Tylenol seems to help. She reports fatigue today. States she hasnt been able to sleep well at night. Will try Melatonin to see if this helps. She is due for dialysis tomorrow. She verbalizes no new complaints. Review of Systems Review of Systems: All systems reviewed & are unremarkable except as noted in Subjective Physical Exam Physical Exam: Constitutional:L WD/WN Eyes: anicteric ENMT: Neck: trachea midline, n o JVD Respiratory: normal respiratory effort, lungs monique ar to auscultation but diminished at bases Cardiovascular:L Rate/Rhythm: regul ar rate and regula r rhythm Heart So unds: + murmur (3/ 6 IWONA at RUSB) Ve ssels: dorsalis pe dis pulses present (1+ bilaterally o n L) Extremities: no edema Chest (Breasts): Chest: normal insp ection of chest Gastrointestinal ( Abdomen): normal bowel sound s, soft, nontender Musculoskeletal: Extremities: no cy anosis and no club ivon; R AKA with s urgical dressing i n place C/D/I Neurologic: moves all extremit ies including RLE stump; no focal mo tor deficits Psychiatric: alert,oriented x 3 ; in good spirits Lymphatic: Skin : no lymphedema Results & Data Results & Data ([facility]) Vital Signs (Past 12 Hours) Vital Signs Temp Pulse Resp BP Pulse Ox 07/15/21 09:43 180/88 H 07/15/21 07:30 36.7 C 79 18 192/63 H 90 PG Care Time/CCT Total # of Minutes Spent Total Time Spent with Patient: Total time spent is greater than 50% in coordination of care (as documented) at patient's floor/unit and/or counseling patient: Coding Level of Care Code 78382 Subseq Hosp Care Lvl 2 Diagnoses Bacteremia R78.81 Sepsis A41.9 Sepsis acute organ dysfunction status: unspecified Sepsis type: sepsis due to unspecified organism Dehiscence of wound T81.30XA Type 2 diabetes mellitus with insulin therapy E11.9; Z79.4 Anemia N18.6; D63.1; Z99.2 Anemia type: due to chronic kidney disease Chronic kidney disease stage: on chronic dialysis End-stage renal disease on hemodialysis N18.6; Z99.2 CAD (coronary artery disease) I25.10 Depression F32.9 Dyslipidemia E78.5 Heart failure with mid-range ejection fraction I50.9 Hypertension I10 Hypertension type: unspecified Moderate calcific aortic stenosis I35.0 (1) Sepsis Sepsis acute organ dysfunction status: unspecified Sepsis type: sepsis due to unspecified organism Qualified Code(s): A41.9 - Sepsis, unspecified organism (2) Anemia Anemia type: due to chronic kidney disease Chronic kidney disease stage: on chronic dialysis Qualified Code(s): N18.6 - End stage renal disease; D63.1 - Anemia in chronic kidney disease; Z99.2 - Dependence on renal dialysis (3) Hypertension Hypertension type: unspecified Qualified Code(s): I10 - Essential (primary) hypertension
[2021-07-15] MEDS: ATORVASTATIN 40 MG TAB PO SCH (21:44)
[2021-07-15] MEDS: INSULIN GLARGINE SOLOSTAR 100 UNITS/ML 3 ML PEN SQ SCH (21:45)
[2021-07-15] MEDS ORDERED: hydrALAZINE TAB 50 MG TAB PO STA (22:47)
[2021-07-16] MEDS ORDERED: HEPARIN SOD (PORCINE) 1000 UNIT/ML IV SCH (07:00)
[2021-07-16] MEDS ORDERED: SODIUM CHLORIDE 0.9% 1000ML 1,000 ML IV PRN (07:00)
[2021-07-16] MEDS: INSULIN ASPART PER UNIT SC SCH ×4 (08:47→20:51)
[2021-07-16] MEDS: amLODIPine BESYLATE 5 MG TAB PO SCH ×2 (08:49→20:35)
[2021-07-16] MEDS: CHOLECALCIFEROL 1,000 UNITS 25 MCG TAB PO SCH ×2 (08:49→20:35)
[2021-07-16] MEDS: VENLAFAXINE HCL XR 150 MG CAPXR PO SCH (08:49)
[2021-07-16] MEDS: ISOSORBIDE MONO EXTENDED REL 60 MG TABCR PO SCH (08:50)
[2021-07-16] MEDS: CALCIUM 600MG + VIT D 400 IU TAB PO SCH (08:50)
[2021-07-16] MEDS: MULTIVITAMIN TAB PO SCH (08:50)
[2021-07-16] MEDS: SENNA 8.6 MG TAB PO SCH (08:50)
[2021-07-16] MEDS: CIPROFLOXACIN 500 MG TAB PO SCH (08:50)
[2021-07-16] MEDS: hydrALAZINE TAB 50 MG TAB PO SCH ×3 (08:50→20:35)
[2021-07-16] MEDS: ASCORBIC ACID 500 MG TAB PO SCH (08:50)
[2021-07-16] MEDS: ASPIRIN 81 MG ECTAB PO SCH ×2 (08:51→20:35)
--- NOTE | 2021-07-16 09:53 | Hospitalist Progress Note ---
Date of Service July 16, 2021 Assessment & Plan (1) Bacteremia: Plan: Presented with wound dehiscence s/p multiple surgeries and fever at HD Ortho consulted S/P Incision and drainage extremity right knee, extensive debridement right knee, removal of implant from right patella, application of wound vac.(Right) - with Bean Fritz on 07/07 * --> OR cx with enterobacter cloacae which is also present on BCx; repeat BCx with NGTD > 48 hours -- Previous Cx from knee with Enterococcus faecalis which is not currently growing Completed Vancomycin from previous infection; Placed on Cefepime in-house * Discussed with ID who completed consult to utilize Cipro to complete a 14 day total course (end date July 19) -- suspect should dose Cipro AFTER dialysis on dialysis days (but did get before HD 07/16 and appears possibly got before HD) ECHO --> NO VEGETATION-- Given gram negative organism, is less likely to seed which is of benefit Hgb 7.7 with 1 unit PRBC (gustavo from 6.8) earlier in admission -- transfused x 2 units on 07/09 and Hgb continues to be acceptable on labs * (Checked iron panel --> iron 11, trans % sat 9 and nephrology has ordered dose of Venofer, EPO 20,000 to be given with HD WBC wnl 07/15 HD 07/16 for ~2L Labs from AM pending (2) Sepsis: Plan: 2nd to R knee infection; as above (3) Dehiscence of wound: Plan: Presents with yet another recurrence of wound dehiscence of the right knee and reported fevers at dialysis, but is afebrile; Postoperative infection of the internal right knee prosthesis No leukocytosis, vital signs are stable (chronic elevated BP in-hospital) ESR and CRP are elevated 88 & 31.1 respectively on admission Chest x-ray with evidence of volume overload but no pneumonia and no symptoms of pneumonia on admission UA ordered but not collected and she makes minimal urine Does have a sacral wound but it does not appear infected s/p Incision and drainage extremity right knee, extensive debridement right knee, removal of implant from right patella, application of wound vac.(Right) - Bean Fritz MD Pain controlled with tylenol/oxy -- mostly only using Tylenol and that is even rare. Oxycodone x 1 07/16 Wound RN consulted Now S/P R AKA on 07/[address] Ly Having BMs currently and will monitor (4) Type 2 diabetes mellitus with insulin therapy: Plan: - Had low BSG on 07/14 - Reduced Lantus to 12 units and continue SSI at current dose BSGs acceptable (5) Anemia: Plan: Hemoglobin chronically low (baseline 8-9) managed by nephrology with periodic Epogen and IV iron Hgb monitored and has been stable and transfuse as necessary (6) End-stage renal disease on hemodialysis: Plan: Consult nephrology for inpatient hemodialysis management Her dialysis days are Friday Monitor volume status (7) CAD (coronary artery disease): Plan: No history of stents Resumed ASA 81mg BID post-operatively by ortho No chest pain reported Continue atorvastatin, isosorbide (8) Depression: Plan: Feeling worse with her mood lately with being in the hospital and rehab so much; also has sustained a lot of loss of family members in the past years. Her spirits continue to be improved and she feels less anxious now that the surgery is complete; states she misses her cats as she hasn't been home much in the past several weeks due to hospitalizations/rehabs (9) Dyslipidemia: Plan: Continue statin (10) Heart failure with mid-range ejection fraction: Plan: Last echocardiogram 10/2020 with mild LV dysfunction EF 45-50%, moderate aortic stenosis, moderate MR Managed with dialysis for volume ECHO repeated given +BCx --> LV systolic function normal. No regional wma. Mild concentric LVH. EF 60-65%. Severe valvular aortic stenosis. Mild MR. NO VALVULAR vegetation identified. Compared to October 2020, minor progression in aortic stenosis. No longer requiring supplemental oxygen at this time s/p HD 07/16 (11) Hypertension: Plan: Variable; tends to run high but asymptomatic Continue home medications of hydralazine, isosorbide, amlodipine (12) Moderate calcific aortic stenosis: Plan: As above, moderate on last echocardiogram --> now SEVERE. monitor BP control Plan: PT/OT - patient currently interested in rehab and awaiting referrals - Orthopedically stable for D/C; pending arrangements for rehab could D/C on oral Abx as now on Cipro. --> Rec'd that she have cipro given AFTER HD sessions (got before 07/16), could consider extending by a day? Admission and Anticipated Discharge Date Admission Date: July 06, 2021 Supervising Physician Co-Signing Physician Notes DELL Supervision Note: I did not personally see or examine the patient today, but I verified all tinajero points of DELL Mcnair's assessment and plan with the following exceptions/additions: None Subjective patient evaluated this afternoon following HD. Doing alright. Main concern is that bacteria out of her blood stream. Discussed repeat blood cultures final NO GROWTH, and now that OR for amputation and source control can do decreased duration of IV abx. She notes IV in R forearm present since last friday and bothering her. Will have RN obtain new site. Pain controlled with ordered medications -- tylenol and occasional oxycodone x 1 today. Daughter at bedside and updated. Plans on [facility] once bed available [place] need [place] for her HD. No fever, chills, chest pain, shortness of breath, abdominal pain, nausea or vomiting at this time. Review of Systems Review of Systems: All systems reviewed & are unremarkable except as noted in HPI & below Physical Exam Physical Exam: General: WN/WN female laying flay in bed following HD, NAD Eyes: anicteric, pupils equal and reactive Neck: trachea midline Resp: CTAB, no w/c/r, on room air CV: RRR, 3/6 systolic murmur, 1+ pulse on LLE, +Fistula with bruit GI: +BS, soft, non-tender MSK: R AKA with surgical dressing/cap c/d/i, non-tender Psych: AOx3, pleasant and cooperative Neuro: answers questions appropriately, moving all extremities, follows commands Skin: scattered ecchymosis from lab draws Results & Data Results & Data ([facility]) Vital Signs (Past 12 Hours) Vital Signs Temp Pulse Pulse Pulse Resp BP BP 07/16/21 09:15 77 182/72 H 07/16/21 09:08 36.3 C L 77 07/16/21 08:10 36.6 C 73 18 204/61 H 07/15/21 22:27 36.8 C 78 17 195/66 H Pulse Ox 07/16/21 09:15 07/16/21 09:08 07/16/21 08:10 93 07/15/21 22:27 94 Laboratory Results 07/16/21 07/16/21 07/15/21 Range/Units 13:19 08:07 20:36 POC Glucose 99 149 H 130 H (70-99) mg/dl 07/15/21 Range/Units 17:28 POC Glucose 100 H (70-99) mg/dl PG Care Time/CCT Total # of Minutes Spent Total Time Spent with Patient: Total time spent is greater than 50% in coordination of care (as documented) at patient's floor/unit and/or counseling patient: Coding Level of Care Code 04898 Subseq Hosp Care Lvl 3 Diagnoses Bacteremia R78.81 Sepsis A41.9 Sepsis acute organ dysfunction status: unspecified Sepsis type: sepsis due to unspecified organism Dehiscence of wound T81.30XA Type 2 diabetes mellitus with insulin therapy E11.9; Z79.4 Anemia N18.6; D63.1; Z99.2 Anemia type: due to chronic kidney disease Chronic kidney disease stage: on chronic dialysis End-stage renal disease on hemodialysis N18.6; Z99.2 CAD (coronary artery disease) I25.10 Depression F32.9 Dyslipidemia E78.5 Heart failure with mid-range ejection fraction I50.9 Hypertension I10 Hypertension type: unspecified Moderate calcific aortic stenosis I35.0 (1) Anemia Anemia type: due to chronic kidney disease Chronic kidney disease stage: on chronic dialysis Qualified Code(s): N18.6 - End stage renal disease; D63.1 - Anemia in chronic kidney disease; Z99.2 - Dependence on renal dialysis (2) Sepsis Sepsis acute organ dysfunction status: unspecified Sepsis type: sepsis due to unspecified organism Qualified Code(s): A41.9 - Sepsis, unspecified organism (3) Hypertension Hypertension type: unspecified Qualified Code(s): I10 - Essential (primary) hypertension
--- NOTE | 2021-07-16 10:16 | Nephrology Progress Note ---
Date of Service July 16, 2021 Assessment & Plan (1) End-stage renal disease on hemodialysis: Plan: * Will provide HD today according to outpatient orders and attempt 2L UF. New EDW appears to be 80 kg following R AKA (~ 7.8 lbs less) * Outpatient HD MWF: Rx 3.5 hrs, 180 optiflux, Qb 350/ Qd 800, 2K bath. EDW 83.5 (will need to be adjusted due to R AKA) (2) Anemia: Plan: * 1 u PRBC transfusion support provided 07/08. Additional 2 u PRBC transfusion support + Epogen provided with HD 07/09. (3) Infection of right knee: Plan: * s/p debridement and hardware removal R knee 07/07 * s/p R AKA 07/10/21 * Declined last PT session 07/15/21. Encouraged participation in PT for strengthening Admission and Anticipated Discharge Date Admission Date: July 06, 2021 Subjective Ms. Bolivar was evaluated in her hospital room this morning. She c/o R AKA incisional discomfort but voices no other concerns. Review of Systems Constitutional: no fever Eyes: no worsening vision and no problem reported Ear, Nose, Mouth, Throat: no problem reported Respiratory: no cough and no dyspnea Cardiovascular: no chest pain, no palpitations and no edema Gastrointestinal: no abdominal pain, no nausea, no vomiting and no diarrhea/loose stools Genitourinary: no dysuria and no hematuria Musculoskeletal: no back pain Integumentary: no rash Neurologic: no confusion Physical Exam Eyes: PERRL, conjunctivae normal, anicteric sclerae ENMT: external ear and nose normal, oropharynx normal Neck: trachea midline, no thyromegaly Respiratory: normal respiratory effort, lungs clear to auscultation Cardiovascular: RRR, no murmur, no edema Extremities: + AV fistula (+ b ruit) Gastrointestinal (Abdomen): normal bowel sounds, soft, nontender, no hepatosplenomegaly Skin: no rashes, warm and dry Neurologic: awake; not confused Results & Data ([facility]) Vital Signs (Past 12 Hours) Vital Signs Temp Pulse Pulse Pulse Resp BP BP 07/16/21 09:45 77 182/72 H 07/16/21 09:15 77 182/72 H 07/16/21 09:08 36.3 C L 77 07/16/21 08:10 36.6 C 73 18 204/61 H 07/15/21 22:27 36.8 C 78 17 195/66 H Pulse Ox 07/16/21 09:45 07/16/21 09:15 07/16/21 09:08 07/16/21 08:10 93 07/15/21 22:27 94 PG Care Time/CCT Total # of Minutes Spent Total Time Spent with Patient: Total time spent is greater than 50% in coordination of care (as documented) at patient's floor/unit and/or counseling patient: Coding Level of Care Code 06355 Subseq Hosp Care Lvl 3 Diagnoses End-stage renal disease on hemodialysis N18.6; Z99.2 Anemia N18.6; D63.1; Z99.2 Anemia type: due to chronic kidney disease Chronic kidney disease stage: on chronic dialysis Infection of right knee M00.9 (1) Anemia Anemia type: due to chronic kidney disease Chronic kidney disease stage: on chronic dialysis Qualified Code(s): N18.6 - End stage renal disease; D63.1 - Anemia in chronic kidney disease; Z99.2 - Dependence on renal dialysis
[2021-07-16] MEDS: HEPARIN SOD (PORCINE) 1000 UNIT/ML IV SCH ×2 (10:20→14:54)
[2021-07-16 15:13] LABS: Hematocrit (blood only) 35.3 % (37-47); Hemoglobin 10.8 g/dL (12.0-16.0); Mean Corpuscular Hemoglobin 27.5 pg (25-34); Mean Corpuscular Hgb Conc 30.6 g/dL (32-36); Mean Corpuscular Volume 89.8 fL (80-100); Mean Platelet Volume 9.3 fL (7.4-10.4); Platelet Count 281 K/uL (130-400); RDW Coefficient of Variation 16.3 % (11.5-14.5); RDW Standard Deviation 52.5 fL (36.4-46.3); Red Blood Count 3.93 M/uL (4.2-5.4); White Blood Count 10.45 K/uL (4.8-10.8)
[2021-07-16 16:13] LABS: Bilirubin,Total 0.4 mg/dl (0.2-1.0); Est GFR (African American) 24.6 ml/min; Est GFR (Non-African American) 21.3 ml/min; Globulin 3.1 gm/dl (2.5-4.0); Potassium 3.9 mmol/L (3.5-5.1); Total Protein 6.1 gm/dl (6.0-8.3)
--- NOTE | 2021-07-16 16:19 | Orthopedic Progress Note ---
Date of Service July 16, 2021 Assessment & Plan (1) Status post above-knee amputation of right lower extremity: Overall she is doing as well as expected. She is having too much pain in the right stump. She is currently awaiting rehab placement. She can follow-up with orthopedics 2 weeks from the day of surgery. Full orthopedic discharge instructions have been placed in the discharge summary. I am making sure she is on Bactrim DS twice a day for about 4 weeks. She can be discharged with the oral antibiotic. She is currently on aspirin 81 mg twice a day for DVT prophylaxis. Jason Masters was seen and examined at bedside. Overall she doing fairly well. She is not any much pain in her right stump. She has no complaints. Review of Systems All systems reviewed & are unremarkable except as noted in HPI & below. Physical Exam On physical examination of her right leg, the dressing is clean and dry.. Results & Data Results & Data Laboratory Results . Diagnostic Findings . PG Care Time/CCT Total # of Minutes Spent Total Time Spent with Patient: Total time spent is greater than 50% in coordination of care (as documented) at patient's floor/unit and/or counseling patient: Coding Level of Care Code 70660 Post Operative Follow-Up Diagnoses Status post above-knee amputation of right lower extremity Z89.611
[2021-07-16] MEDS: ATORVASTATIN 40 MG TAB PO SCH (20:36)
[2021-07-16] MEDS: INSULIN GLARGINE SOLOSTAR 100 UNITS/ML 3 ML PEN SQ SCH (20:50)
[2021-07-16] MEDS ORDERED: SULFAMETHOXAZOLE/TRIMETHOPRIM DS 800/160MG TAB PO SCH (21:00)
[2021-07-17 06:47] LABS: BUN Creatinine Ratio 15.8 (10-20); Basophils # (auto) 0.03 K/uL (0-0.2); Basophils % (auto) 0.3 %; Calcium 9.4 mg/dl (8.5-10.1); Creatinine Clr Calc Pharmacy 17.4 ml/min; Eosinophils # (auto) 0.62 K/uL (0-0.5); Eosinophils % (auto) 5.4 %; Est GFR (African American) 17.6 ml/min; Est GFR (Non-African American) 15.2 ml/min; Hematocrit (blood only) 33.9 % (37-47); Hemoglobin 10.5 g/dL (12.0-16.0); Immature Granulocytes # (auto) 0.35 K/uL (0.00-0.02); Immature Granulocytes % (auto) 3.1 %; Lymphocytes # (auto) 1.47 K/uL (1.2-3.4); Lymphocytes % (auto) 12.9 %; Mean Corpuscular Volume 90.4 fL (80-100); Mean Platelet Volume 10.1 fL (7.4-10.4); Monocytes # (auto) 1.77 K/uL (0.11-0.59); Monocytes % (auto) 15.5 %; Neutrophils # (auto) 7.16 K/uL (1.4-6.5); Neutrophils % (auto) 62.8 %; Platelet Count 268 K/uL (130-400); Potassium 4.1 mmol/L (3.5-5.1); RDW Coefficient of Variation 16.3 % (11.5-14.5); RDW Standard Deviation 52.7 fL (36.4-46.3); Red Blood Count 3.75 M/uL (4.2-5.4)
[2021-07-17 07:15] LABS: RBC Morphology Unremarkable
[2021-07-17] MEDS: ISOSORBIDE MONO EXTENDED REL 60 MG TABCR PO SCH (08:41)
[2021-07-17] MEDS: hydrALAZINE TAB 50 MG TAB PO SCH ×3 (08:41→20:18)
[2021-07-17] MEDS: VENLAFAXINE HCL XR 150 MG CAPXR PO SCH (08:41)
[2021-07-17] MEDS: SENNA 8.6 MG TAB PO SCH (08:41)
[2021-07-17] MEDS: SULFAMETHOXAZOLE/TRIMETHOPRIM DS 800/160MG TAB PO SCH (08:41)
[2021-07-17] MEDS: MULTIVITAMIN TAB PO SCH (08:41)
[2021-07-17] MEDS: ASPIRIN 81 MG ECTAB PO SCH ×2 (08:42→20:18)
[2021-07-17] MEDS: ASCORBIC ACID 500 MG TAB PO SCH (08:42)
[2021-07-17] MEDS: CHOLECALCIFEROL 1,000 UNITS 25 MCG TAB PO SCH ×2 (08:42→20:18)
[2021-07-17] MEDS: CALCIUM 600MG + VIT D 400 IU TAB PO SCH (08:42)
[2021-07-17] MEDS: amLODIPine BESYLATE 5 MG TAB PO SCH ×2 (08:42→20:18)
--- NOTE | 2021-07-17 09:03 | Hospitalist Progress Note ---
Date of Service July 17, 2021 Assessment & Plan (1) Bacteremia: Plan: Presented with wound dehiscence s/p multiple surgeries and fever at HD Ortho consulted S/P Incision and drainage extremity right knee, extensive debridement right knee, removal of implant from right patella, application of wound vac.(Right) - with Bean Fritz on 07/07 * --> OR cx with enterobacter cloacae which is also present on BCx; repeat BCx with NGTD > 48 hours -- Previous Cx from knee with Enterococcus faecalis which is not currently growing Completed Vancomycin from previous infection; Placed on Cefepime in-house * Discussed with ID who completed consult to utilize Cipro to complete a 14 day total course (end date July 19) -- suspect should dose Cipro AFTER dialysis on dialysis days (but did get before HD 07/16 and appears possibly got before HD) ECHO --> NO VEGETATION-- Given gram negative organism, is less likely to seed which is of benefit Hgb 7.7 with 1 unit PRBC (gustavo from 6.8) earlier in admission -- transfused x 2 units on 07/09 and Hgb continues to be acceptable on labs * (Checked iron panel --> iron 11, trans % sat 9 and nephrology has ordered dose of Venofer, EPO 20,000 to be given with HD) Hgb improved and stable 10.5 HD 07/16 for ~2.3L WBC elevated to 11.4k (previously normal). Afebrile --> CXR with loculated effusion. Discussed with pulm --> old. Had thoracentesis in past by pulmonology, transudative. [place]co old. Was on bumex in the past per Shila Banerjee CHF notes, bumex 2mg BID Discussed with Dr Spangler, and he is planning to aim for 3L with HD tomorrow, pending response regarding possibly giving Ms Bolivar bumex PO to assist No respiratory decompensation to suggest need for repeat thoracentesis at this time but can consider if decompensates Encouraged incentive spirometer Working with PT/OT --> planning for [facility] when able Monitor labs in AM (2) Sepsis: Plan: 2nd to R knee infection; as above (3) Dehiscence of wound: Plan: Presents with yet another recurrence of wound dehiscence of the right knee and reported fevers at dialysis, but is afebrile; Postoperative infection of the internal right knee prosthesis No leukocytosis, vital signs are stable (chronic elevated BP in-hospital) ESR and CRP are elevated 88 & 31.1 respectively on admission Chest x-ray with evidence of volume overload but no pneumonia and no symptoms of pneumonia on admission UA ordered but not collected and she makes minimal urine Does have a sacral wound but it does not appear infected s/p Incision and drainage extremity right knee, extensive debridement right knee, removal of implant from right patella, application of wound vac.(Right) - Bean Fritz MD Pain controlled with tylenol/oxy -- mostly only using Tylenol and that is even rare. 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 Ly 06/19/27 (4) Type 2 diabetes mellitus with insulin therapy: Plan: - Had low BSG on 07/14 - Reduced Lantus to 12 units and continue SSI at current dose BSGs acceptable, monitor (5) Anemia: Plan: Hemoglobin chronically low (baseline 8-9) managed by nephrology with periodic Epogen and IV iron Hgb monitored and has been stable and transfuse as necessary (6) End-stage renal disease on hemodialysis: Plan: Consult nephrology for inpatient hemodialysis management Her dialysis days are Friday Monitor volume status Aiming for 3L with HD 07/18 (7) CAD (coronary artery disease): Plan: No history of stents Resumed ASA 81mg BID post-operatively by ortho No chest pain reported Continue atorvastatin, isosorbide (8) Depression: Plan: Feeling worse with her mood lately with being in the hospital and rehab so much; also has sustained a lot of loss of family members in the past years. Her spirits continue to be improved and she feels less anxious now that the surgery is complete; states she misses her cats as she hasn't been home much in the past several weeks due to hospitalizations/rehabs Mood stable currently (9) Dyslipidemia: Plan: Continue statin (10) Heart failure with mid-range ejection fraction: Plan: Last echocardiogram 10/2020 with mild LV dysfunction EF 45-50%, moderate aortic stenosis, moderate MR Managed with dialysis for volume ECHO repeated given +BCx --> LV systolic function normal. No regional wma. Mild concentric LVH. EF 60-65%. Severe valvular aortic stenosis. Mild MR. NO VALVULAR vegetation identified. Compared to October 2020, minor progression in aortic stenosis. No longer requiring supplemental oxygen at this time but still with volume overload on CXR/pulm exam as above s/p HD 07/16, aiming for increased ultradiltration tomorrow Of note, previously on bumex 2mg PO BID per Shila Banerjee note end of last year --> messaged nephro regarding oral diuretics but will defer to them to avoid worsening renal funciton. Per Shila Banerjee, has not seen patient since she started dialysis (11) Hypertension: Plan: Variable; tends to run high but asymptomatic --> currently 153/55 Continue home medications of hydralazine, isosorbide, amlodipine (12) Moderate calcific aortic stenosis: Plan: As above, moderate on last echocardiogram --> now SEVERE. monitor BP control Plan: PT/OT - patient currently interested in rehab and awaiting referrals --> plans for [facility] when bed available Updated daughter at bedside 07/16 Orthopedically stable for D/C; pending arrangements for rehab could D/C on oral Abx as now on Cipro. --> Rec'd that she have cipro given AFTER HD sessions (got before 07/16) Admission and Anticipated Discharge Date Admission Date: July 06, 2021 Supervising Physician Co-Signing Physician Notes PA Supervision Note: I did not personally see or examine the patient today, but I verified all tinajero points of DELL Mcnair's assessment and plan with the following exceptions/additions: Orthopedics has placed the patient on renally dosed Bactrim and request that this continue for 1 month on discharge. Will have renal function monitored by nephrology. Subjective patient evaluated this afternoon doing well pain well controlled, she states she doesn't have any pain at the moment she states she surprised therapy this morning by already being up in the chair she was working with the walker and jokes that she went to put her right leg/foot down and realized it wasn't there anymore, and was assisted back to bed. No falls. She is having some anxiety about walking, but states family goals are to see her walk again and she is going to try. she does note R shoulder pain prior to admission when she was going to fall her son bear hugged her and then lost ggrip and she slid down. Feels possibly like a muscle strain but will check Xray to look for any fractures. Awaiting bed at [facility]. Denies fever/chills, chest pain, shortness of breath, cough, sputum production, abdominal pain, nausea or vomiting. Eating/drinking without issue. Passing lots of gas but no BM in past 1-2 days she believes. Already on senna, will add docusate BID as she would like to avoid something like miralax which causes her to have to drink increased amounts of fluids. Questions/concerns addressed at this time. Review of Systems Review of Systems: All systems reviewed & are unremarkable except as noted in HPI & below Physical Exam Physical Exam: General: WN/WN female laying flay in bed following HD, NAD Eyes: anicteric, pupils equal and reactive Neck: trachea midline Resp: CTAB, no w/c/r, on room air CV: RRR, 3/6 systolic murmur, 1+ pulse on LLE, + L arm Fistula with bruit GI: +BS, soft, non-tender MSK: R AKA with surgical dressing/cap c/d/i, non-tender, R shoulder limited ROM due to pain, wided AC separation, tender to palpation, no erythema Psych: AOx3, pleasant and cooperative Neuro: answers questions appropriately, moving all extremities, follows commands Skin: scattered ecchymosis from lab draws Results & Data Results & Data ([facility]) Vital Signs (Past 12 Hours) Vital Signs Temp Pulse Resp BP Pulse Ox 07/17/21 07:12 36.8 C 85 16 166/65 H 92 07/16/21 22:49 37.3 C 87 16 188/67 H 92 Laboratory Results 07/17/21 07/17/21 07/17/21 Range/Units 08:11 05:49 05:49 WBC 11.40 H (4.8-10.8) K/uL RBC 3.75 L (4.2-5.4) M/uL Hgb 10.5 L (12.0-16.0) g/dL Hct 33.9 L (37-47) % MCV 90.4 (80-100) fL MCH 28.0 (25-34) pg MCHC 31.0 L (32-36) g/dL RDW Std Deviation 52.7 H (36.4-46.3) fL RDW Coeff of Chris 16.3 H (11.5-14.5) % Plt Count 268 (130-400) K/uL MPV 10.1 (7.4-10.4) fL Immature Gran % (Auto) 3.1 % Neut % (Auto) 62.8 % Lymph % (Auto) 12.9 % [place] % (Auto) 15.5 % Eos % (Auto) 5.4 % Baso % (Auto) 0.3 % Neut # (Auto) 7.16 H (1.4-6.5) K/uL Lymph # (Auto) 1.47 (1.2-3.4) K/uL [place] # (Auto) 1.77 H (0.11-0.59) K/uL Eos # (Auto) 0.62 H (0-0.5) K/uL Baso # (Auto) 0.03 (0-0.2) K/uL Immature Gran # (Auto) 0.35 H (0.00-0.02) K/uL RBC Morphology Unremarkable Sodium 133 L (136-145) mmol/L Potassium 4.1 (3.5-5.1) mmol/L Chloride 100 (98-107) mmol/L Carbon Dioxide 26 (21-32) mmol/L Anion Gap 7 (3-11) BUN 45 H (6-23) mg/dl Creatinine 2.85 H D (0.6-1.2) mg/dl Est Cr Clr Drug Dosing 17.4 ml/min Est GFR ( Amer) 17.6 ml/min Est GFR (Non-Af Amer) 15.2 ml/min BUN/Creatinine Ratio 15.8 (10-20) Glucose 85 (70-99(Fasting)) mg/dl POC Glucose 78 (70-99) mg/dl Calcium 9.4 (8.5-10.1) mg/dl Total Bilirubin (0.2-1.0) mg/dl AST (13-39) U/L ALT (7-52) U/L Alkaline Phosphatase (34-104) U/L Total Protein (6.0-8.3) gm/dl Albumin (3.4-5.0) gm/dl Globulin (2.5-4.0) gm/dl Albumin/Globulin Ratio (0.9-2) 03/07/22 03/07/22 03/07/22 Range/Units 20:51 17:26 14:49 WBC (4.8-10.8) K/uL RBC (4.2-5.4) M/uL Hgb (12.0-16.0) g/dL Hct (37-47) % MCV (80-100) fL MCH (25-34) pg MCHC (32-36) g/dL RDW Std Deviation (36.4-46.3) fL RDW Coeff of Chris (11.5-14.5) % Plt Count (130-400) K/uL MPV (7.4-10.4) fL Immature Gran % (Auto) % Neut % (Auto) % Lymph % (Auto) % [place] % (Auto) % Eos % (Auto) % Baso % (Auto) % Neut # (Auto) (1.4-6.5) K/uL Lymph # (Auto) (1.2-3.4) K/uL [place] # (Auto) (0.11-0.59) K/uL Eos # (Auto) (0-0.5) K/uL Baso # (Auto) (0-0.2) K/uL Immature Gran # (Auto) (0.00-0.02) K/uL RBC Morphology Sodium 134 L (136-145) mmol/L Potassium 3.9 (3.5-5.1) mmol/L Chloride 100 (98-107) mmol/L Carbon Dioxide 28 (21-32) mmol/L Anion Gap 6 (3-11) BUN 26 H D (6-23) mg/dl Creatinine 2.16 H D (0.6-1.2) mg/dl Est Cr Clr Drug Dosing 23.0 ml/min Est GFR ( Amer) 24.6 ml/min Est GFR (Non-Af Amer) 21.3 ml/min BUN/Creatinine Ratio 12.0 (10-20) Glucose 134 H (70-99(Fasting)) mg/dl POC Glucose 132 H 180 H (70-99) mg/dl Calcium 10.0 (8.5-10.1) mg/dl Total Bilirubin 0.4 (0.2-1.0) mg/dl AST 15 (13-39) U/L ALT 6 L (7-52) U/L Alkaline Phosphatase 95 (34-104) U/L Total Protein 6.1 (6.0-8.3) gm/dl Albumin 3.0 L (3.4-5.0) gm/dl Globulin 3.1 (2.5-4.0) gm/dl Albumin/Globulin Ratio 1.0 (0.9-2) 07/16/21 07/16/21 Range/Units 14:49 13:19 WBC 10.45 (4.8-10.8) K/uL RBC 3.93 L (4.2-5.4) M/uL Hgb 10.8 L (12.0-16.0) g/dL Hct 35.3 L (37-47) % MCV 89.8 (80-100) fL MCH 27.5 (25-34) pg MCHC 30.6 L (32-36) g/dL RDW Std Deviation 52.5 H (36.4-46.3) fL RDW Coeff of Chris 16.3 H (11.5-14.5) % Plt Count 281 (130-400) K/uL MPV 9.3 (7.4-10.4) fL Immature Gran % (Auto) % Neut % (Auto) % Lymph % (Auto) % [place] % (Auto) % Eos % (Auto) % Baso % (Auto) % Neut # (Auto) (1.4-6.5) K/uL Lymph # (Auto) (1.2-3.4) K/uL [place] # (Auto) (0.11-0.59) K/uL Eos # (Auto) (0-0.5) K/uL Baso # (Auto) (0-0.2) K/uL Immature Gran # (Auto) (0.00-0.02) K/uL RBC Morphology Sodium (136-145) mmol/L Potassium (3.5-5.1) mmol/L Chloride (98-107) mmol/L Carbon Dioxide (21-32) mmol/L Anion Gap (3-11) BUN (6-23) mg/dl Creatinine (0.6-1.2) mg/dl Est Cr Clr Drug Dosing ml/min Est GFR ( Amer) ml/min Est GFR (Non-Af Amer) ml/min BUN/Creatinine Ratio (10-20) Glucose (70-99(Fasting)) mg/dl POC Glucose 99 (70-99) mg/dl Calcium (8.5-10.1) mg/dl Total Bilirubin (0.2-1.0) mg/dl AST (13-39) U/L ALT (7-52) U/L Alkaline Phosphatase (34-104) U/L Total Protein (6.0-8.3) gm/dl Albumin (3.4-5.0) gm/dl Globulin (2.5-4.0) gm/dl Albumin/Globulin Ratio (0.9-2) Diagnostic Findings Chest X-Ray 07/17/21 08:53 XR chest 1V portable HISTORY: 80 years-old Female leukocytosis, ?atelectasis acute shortness of breath COMPARISON: Chest radiograph 07/06/2021 TECHNIQUE: Portable AP view of the chest FINDINGS: Cardiac silhouette is enlarged. Pulmonary vascular congestion with interstitial coarsening. Bilaterally pleural effusions with loculation of the left pleural effusion. Bibasilar prominent consolidation. No pneumothorax. Suggestive loose bodies superior to the left humeral head redemonstrated. Degenerative changes of the shoulders and spine. IMPRESSION: 1. Cardiomegaly with pulmonary edema. 2. Bilateral pleural effusions with loculation on the left. 3. Bibasilar predominant consolidation suggestive of atelectasis versus pneumonia. ACT 112: Negative or not required by law. The above report was generated using voice recognition software. It may contain grammatical, syntax or spelling errors. Electronically signed by: All Osullivan M.D. 07/17/2021 9:48 AM Shoulder X-Ray 07/17/21 13:56 XR shoulder RT min 2V routine HISTORY: 80 years-old Female R shoulder pain s/p fall acute right shoulder pain status post fall COMPARISON: Chest radiograph 07/06/2021 TECHNIQUE: 3 views of the right shoulder FINDINGS: Demineralized appearance of the bones. Moderate glenohumeral osteoarthritis. Unchanged widening of the right AC joint with findings suggestive of prior distal clavicular resection. No acute fracture, dislocation or opaque foreign body. Decreased acromiohumeral interval suggestive of chronic rotator cuff tear. Right pleural effusion with right lung base opacity is again noted. Suggested pulmonary edema. IMPRESSION: No acute fracture or dislocation. ACT 112: Negative or not required by law. The above report was generated using voice recognition software. It may contain grammatical, syntax or spelling errors. Electronically signed by: All Osullivan M.D. 07/17/2021 3:16 PM PG Care Time/CCT Total # of Minutes Spent Total Time Spent with Patient: Total time spent is greater than 50% in coordination of care (as documented) at patient's floor/unit and/or counseling patient: Coding Level of Care Code 78469 Subseq Hosp Care Lvl 3 Diagnoses Bacteremia R78.81 Sepsis A41.9 Sepsis acute organ dysfunction status: unspecified Sepsis type: sepsis due to unspecified organism Dehiscence of wound T81.30XA Type 2 diabetes mellitus with insulin therapy E11.9; Z79.4 Anemia N18.6; D63.1; Z99.2 Anemia type: due to chronic kidney disease Chronic kidney disease stage: on chronic dialysis End-stage renal disease on hemodialysis N18.6; Z99.2 CAD (coronary artery disease) I25.10 Depression F32.9 Dyslipidemia E78.5 Heart failure with mid-range ejection fraction I50.9 Hypertension I10 Hypertension type: unspecified Moderate calcific aortic stenosis I35.0 (1) Anemia Anemia type: due to chronic kidney disease Chronic kidney disease stage: on chronic dialysis Qualified Code(s): N18.6 - End stage renal disease; D63.1 - Anemia in chronic kidney disease; Z99.2 - Dependence on renal dialysis (2) Sepsis Sepsis acute organ dysfunction status: unspecified Sepsis type: sepsis due to unspecified organism Qualified Code(s): A41.9 - Sepsis, unspecified organism (3) Hypertension Hypertension type: unspecified Qualified Code(s): I10 - Essential (primary) hypertension
--- NOTE | 2021-07-17 09:06 | Nephrology Progress Note ---
Date of Service July 17, 2021 Assessment & Plan (1) End-stage renal disease on hemodialysis: Plan: * No acute indication for HD today. Will schedule next HD for tomorrow according to outpatient orders and attempt 2L UF. New EDW appears to be 80 kg following R AKA (~ 7.8 lbs less) * Outpatient HD MWF: Rx 3.5 hrs, 180 optiflux, Qb 350/ Qd 800, 2K bath. EDW 83.5 (will need to be adjusted due to R AKA) (2) Anemia: Plan: * Will provide EMELINA w/ HD (3) Infection of right knee: Plan: * s/p debridement and hardware removal R knee 07/07 * s/p R AKA 07/10/21 * Declined PT session 07/15/21, 07/16/21. Encouraged participation in PT for strengthening Admission and Anticipated Discharge Date Admission Date: July 06, 2021 Subjective Ms. Bolivar was evaluated in her hospital room this morning. She was dialyzed yesterday for 2.3L UF. She declined to participate in PT yesterday. She voices no new medical concerns this morning. Review of Systems Constitutional: no fever Eyes: no worsening vision and no problem reported Ear, Nose, Mouth, Throat: no problem reported Respiratory: no cough and no dyspnea Cardiovascular: no chest pain, no palpitations and no edema Gastrointestinal: no abdominal pain, no nausea, no vomiting and no diarrhea/loose stools Genitourinary: no dysuria and no hematuria Musculoskeletal: no back pain Integumentary: no rash Neurologic: no confusion Physical Exam Constitutional: not in distress Eyes: PERRL, conjunctivae normal, anicteric sclerae ENMT: external ear and nose normal, oropharynx normal Neck: trachea midline, no thyromegaly Respiratory: normal respiratory effort, lungs clear to auscultation Cardiovascular: RRR, no murmur, no edema Extremities: + AV fistula (+ bruit) Gastrointestinal (Abdomen): normal bowel sounds, soft, nontender, no hepato splenomegaly Skin: no rashes, warm and dry Neurologic: awake; not confused Results & Data ([facility]) Vital Signs (Past 12 Hours) Vital Signs Temp Pulse Resp BP Pulse Ox 07/17/21 07:12 36.8 C 85 16 166/65 H 92 07/16/21 22:49 37.3 C 87 16 188/67 H 92 Laboratory Results Laboratory Tests 07/17/21 07/17/21 05:49 05:49 WBC 11.40 H Hgb 10.5 L Hct 33.9 L Plt Count 268 Sodium 133 L Potassium 4.1 Chloride 100 Carbon Dioxide 26 BUN 45 H Creatinine 2.85 H D Glucose 85 Calcium 9.4 Laboratory Tests 07/08/21 Unknown Transferrin % Sat 9 L Ferritin 2464.0 H PG Care Time/CCT Total # of Minutes Spent Total Time Spent with Patient: Total time spent is greater than 50% in coordination of care (as documented) at patient's floor/unit and/or counseling patient: Coding Level of Care Code 75495 Subseq Hosp Care Lvl 3 Diagnoses End-stage renal disease on hemodialysis N18.6; Z99.2 Anemia N18.6; D63.1; Z99.2 Anemia type: due to chronic kidney disease Chronic kidney disease stage: on chronic dialysis Infection of right knee M00.9 (1) Anemia Anemia type: due to chronic kidney disease Chronic kidney disease stage: on chronic dialysis Qualified Code(s): N18.6 - End stage renal disease; D63.1 - Anemia in chronic kidney disease; Z99.2 - Dependence on renal dialysis
--- NOTE | 2021-07-17 09:50 | XRay Report ---
XR chest 1V portable HISTORY: 80 years-old Female leukocytosis, ?atelectasis acute shortness of breath COMPARISON: Chest radiograph 07/06/2021 TECHNIQUE: Portable AP view of the chest FINDINGS: Cardiac silhouette is enlarged. Pulmonary vascular congestion with interstitial coarsening. Bilateral ly pleural effusions with loculation of the left pleural effusion. Bibasilar prominent consolidation. No pneumothorax. Suggestive loose bodies superior to the left humeral head redemonstrated. Degenerat stephan changes of the shoulders and spine. IMPRESSION: 1. Cardiomegaly with pulmonary edema. 2. Bilateral pleural effusions with loculation on the left. 3. Bibasilar predominant consolidation suggestive of atelectasis versus pneumonia. ACT 112: Negative or not required by law. The above report was generated using voice recognition software. It may contain grammatical, syntax o r spelling errors. Electronically signed by: All Osullivan M.D. 07/17/2021 9:48 AM
[2021-07-17] MEDS: INSULIN ASPART PER UNIT SC SCH ×4 (10:15→20:32)
--- NOTE | 2021-07-17 15:17 | XRay Report ---
XR shoulder RT min 2V routine HISTORY: 80 years-old Female R shoulder pain s/p fall acute right shoulder pain status post fall COMPARISON: Chest radiograph 07/06/2021 TECHNIQUE: 3 views of the right shoulder FINDINGS: Demineralized appearance of the bones. Moderate glenohumeral osteoarthritis. Unchanged widening of th e right AC joint with findings suggestive of prior distal clavicular resection. No acute fracture, di slocation or opaque foreign body. Decreased acromiohumeral interval suggestive of chronic rotator cuf f tear. Right pleural effusion with right lung base opacity is again noted. Suggested pulmonary edema . IMPRESSION: No acute fracture or dislocation. ACT 112: Negative or not required by law. The above report was generated using voice recognition software. It may contain grammatical, syntax o r spelling errors. Electronically signed by: All Osullivan M.D. 07/17/2021 3:16 PM
[2021-07-17] MEDS: ATORVASTATIN 40 MG TAB PO SCH (20:18)
[2021-07-17] MEDS: DOCUSATE SODIUM 100 MG CAP PO SCH (20:18)
[2021-07-17] MEDS: INSULIN GLARGINE SOLOSTAR 100 UNITS/ML 3 ML PEN SQ SCH (20:28)
[2021-07-18] MEDS ORDERED: SODIUM CHLORIDE 0.9% 1000ML 1,000 ML IV PRN (07:00)
[2021-07-18] MEDS ORDERED: HEPARIN SOD (PORCINE) 1000 UNIT/ML IV SCH ×2 (07:00→08:00)
[2021-07-18 07:02] LABS: BUN Creatinine Ratio 19.8 (10-20); Calcium 9.6 mg/dl (8.5-10.1); Creatinine Clr Calc Pharmacy 13.8 ml/min; Est GFR (African American) 14.1 ml/min; Est GFR (Non-African American) 12.1 ml/min; Potassium 4.6 mmol/L (3.5-5.1)
--- NOTE | 2021-07-18 07:07 | Orthopedic Progress Note ---
Date of Service July 18, 2021 Assessment & Plan (1) Status post above-knee amputation of right lower extremity: Overall she is doing fairly well. The stump looks good. She is on aspirin for DVT prophylaxis and daily Bactrim for antimicrobial prophylaxis. We will continue to monitor her kidney functions and she receives dialysis 3 times a week. I looked over her shoulder x-rays. She has chronic cuff arthropathy of her right shoulder. I do not see any new acute injuries on the x-ray. She can leave the wound open to air or cover it with a bandage if it is draining. She is orthopedically stable for discharge when medically ready. She will follow-up with orthopedics in 2 weeks for suture removal. Full orthopedic discharge instructions were placed in the discharge summary. Jason Masters was seen and examined at bedside this morning. Overall she is doing fairly well. She did have a fall yesterday and she injured her shoulder. X- rays were taken. Is feeling a little bit better. She has been doing well with her right stump. She has no other complaints. Review of Systems All systems reviewed & are unremarkable except as noted in HPI & below. Physical Exam On physical examination of the right shoulder, she has limited range of motion some effusion. She feels like she has a large rotator cuff tear. I do not feel any dissociation of the AC joint. Examination of the right stump shows the incision to be clean and dry. There is no necrotic tissue or signs of infection. The stump looks good. Results & Data Results & Data Laboratory Results . Diagnostic Findings X-rays of the right shoulder reviewed and show signs of cuff arthropathy. I do not appreciate any AC joint separation. PG Care Time/CCT Total # of Minutes Spent Total Time Spent with Patient: Total time spent is greater than 50% in coordination of care (as documented) at patient's floor/unit and/or counseling patient: Coding Level of Care Code 66811 Post Operative Follow-Up Diagnoses Status post above-knee amputation of right lower extremity Z89.611
[2021-07-18 07:20] LABS: Basophils # (auto) 0.05 K/uL (0-0.2); Basophils % (auto) 0.4 %; Eosinophils # (auto) 0.57 K/uL (0-0.5); Eosinophils % (auto) 4.9 %; Hematocrit (blood only) 31.9 % (37-47); Hemoglobin 10.3 g/dL (12.0-16.0); Immature Granulocytes # (auto) 0.16 K/uL (0.00-0.02); Immature Granulocytes % (auto) 1.4 %; Lymphocytes # (auto) 1.37 K/uL (1.2-3.4); Lymphocytes % (auto) 11.7 %; Mean Corpuscular Hemoglobin 28.6 pg (25-34); Mean Corpuscular Hgb Conc 32.3 g/dL (32-36); Mean Corpuscular Volume 88.6 fL (80-100); Mean Platelet Volume 9.9 fL (7.4-10.4); Monocytes % (auto) 13.7 %; Neutrophils # (auto) 7.94 K/uL (1.4-6.5); Neutrophils % (auto) 67.9 %; Platelet Count 275 K/uL (130-400); RDW Coefficient of Variation 16.4 % (11.5-14.5); RDW Standard Deviation 52.6 fL (36.4-46.3); White Blood Count 11.69 K/uL (4.8-10.8)
[2021-07-18] MEDS: ASCORBIC ACID 500 MG TAB PO SCH (07:43)
[2021-07-18] MEDS: SULFAMETHOXAZOLE/TRIMETHOPRIM DS 800/160MG TAB PO SCH (07:44)
[2021-07-18] MEDS: MULTIVITAMIN TAB PO SCH (07:44)
[2021-07-18] MEDS: CALCIUM 600MG + VIT D 400 IU TAB PO SCH (07:44)
[2021-07-18] MEDS: ASPIRIN 81 MG ECTAB PO SCH ×2 (07:44→20:58)
[2021-07-18] MEDS: CHOLECALCIFEROL 1,000 UNITS 25 MCG TAB PO SCH ×2 (07:45→20:59)
[2021-07-18] MEDS: SENNA 8.6 MG TAB PO SCH (07:45)
[2021-07-18] MEDS: VENLAFAXINE HCL XR 150 MG CAPXR PO SCH (07:45)
[2021-07-18] MEDS ORDERED: EPOETIN ALFA 10,000 UNITS/ML VIAL IV SCH (08:00)
[2021-07-18] MEDS: DOCUSATE SODIUM 100 MG CAP PO SCH ×2 (08:12→20:58)
--- NOTE | 2021-07-18 08:22 | Hospitalist Progress Note ---
Date of Service July 18, 2021 Assessment & Plan (1) Bacteremia: Plan: Presented with R knee wound dehiscence s/p multiple surgeries and fever at HD Ortho consulted S/P Incision and drainage extremity right knee, extensive debridement right knee, removal of implant from right patella, application of wound vac.(Right) - with Bean Fritz on 07/07 * --> OR cx with enterobacter cloacae which is also present on BCx; * repeat BCx with NGTD > 48 hours -- Previous Cx from knee with Enterococcus faecalis which is not currently growing S/p Right Above Knee Amputation(Right) - Heriberto Ly, on 07/09. EBL 100cc Completed Vancomycin from previous infection; intially on Cefepime on admission * Discussed with ID who completed consult to utilize Cipro to complete a 14 day total course (end date July 19) * --> Cipro d/c'd by Dr Ly 07/17 and switched to Bactrim BID x 1 month (prior blood cultures do show sensitivity to such) for abx prophylaxis --> 1 tablet daily dosed for renal function WBC currently 11.6k, afebrile, likely 2nd to pulm congestion, but did switch abx as above Encouraged continued use of incentive spirometer HD 07/16 for ~2.3L, able to pull more off today (3L)for increased pulmonary congestion after discussion with Dr. Spangler) No diuretics to be given (prior on bumex 2mg BID prior to starting HD) Hgb 10.3, venofer x 1 given (iron 17/trans % sat 10) -- has gotten total 3u PRBC during inpatient stay Working with PT/OT --> planning for [facility] when bed available Monitor labs in AM (2) Sepsis: Plan: 2nd to R knee infection; as above (3) Dehiscence of wound: Plan: *Postoperative infection of the internal right knee prosthesis Now s/p R AKA by Dr Ly on 07/09, abx as outlined above (4) Type 2 diabetes mellitus with insulin therapy: Plan: Had low BSG on 07/14, lantus reduced Had been well controlled, but had low BSGs last evening 07/17, asymptomatic and evening lantus was held BSGs acceptable today and will continue dose for AM/utilize SSI for now and monitor (5) Anemia: Plan: Hemoglobin chronically low (baseline 8-9) managed by nephrology with periodic Epogen and IV iron Hgb monitored and has been stable and transfuse as necessary (6) End-stage renal disease on hemodialysis: Plan: Consult nephrology for inpatient hemodialysis management , MWF Aimed for 3L with HD for pulm congestion --> 3L removed 07/18 Appreciate continued assistance by nephrology Checking Hep B panel with AM labs as to be able to have HD at [facility] (7) CAD (coronary artery disease): Plan: No history of stents Resumed ASA 81mg, but BID post-operatively by ortho No chest pain reported Continue atorvastatin, isosorbide (8) Depression: Plan: Feeling worse with her mood lately with being in the hospital and rehab so much; also has sustained a lot of loss of family members in the past years. Her spirits continue to be improved and she feels less anxious now that the surgery is complete; states she misses her cats as she hasn't been home much in the past several weeks due to hospitalizations/rehabs Mood stable currently (9) Dyslipidemia: Plan: Continue statin (10) Heart failure with mid-range ejection fraction: Plan: Last echocardiogram 10/2020 with mild LV dysfunction EF 45-50%, moderate aortic stenosis, moderate MR Managed with dialysis for volume ECHO repeated given +BCx --> LV systolic function normal. No regional wma. Mild concentric LVH. EF 60-65%. Severe valvular aortic stenosis. Mild MR. NO VALVULAR vegetation identified. Compared to October 2020, minor progression in aortic stenosis. No longer requiring supplemental oxygen at this time but still with volume overload on CXR/pulm exam as above --> did have drop to 89% last evening and placed on 2L NC, denied SOB --> 3L removed with HD today, currently 97% on RA and laying flat in hospital bed in room Nephrology working on new EDW given amputation (11) Hypertension: Plan: Variable; tends to run high but asymptomatic --> currently 173/80 Continue home medications of hydralazine, isosorbide, amlodipine --> consider increasing or adding additional agent (12) Moderate calcific aortic stenosis: Plan: As above, moderate on last echocardiogram --> now SEVERE. monitor BP control Plan: PT/OT - patient currently interested in rehab and awaiting referrals --> plans for [facility] when bed available Updated daughter at bedside 07/16 Admission and Anticipated Discharge Date Admission Date: July 06, 2021 Supervising Physician Co-Signing Physician Notes DELL Supervision Note: I did not personally see or examine the patient today, but I verified all tinajero points of DELL Mcnair's assessment and plan with the following exceptions/additions: none Subjective patient evaluated this afternoon after HD she states she worked with PT this morning and stood x3. Still unsteady and felt like she was attempting to walk with her right foot and forgetting it's not there anymore. fatigued after HD this afternoon, but they were able to remove 3L of fluid no fever, chills, chest pain, shortness of breath. Denied shortness of breath last evening despite O2 sat reported 89% and placed on RA. No cough/sputum production or tachypnea. Shoulder pain about the same, seen by ortho this morning. doesn't think she needs anything topical and will stick to tylenol primarily for pains. needing Hep panel with am labs to set up for HD at [facility] when bed available questions/concerns addressed. Review of Systems Review of Systems: All systems reviewed & are unremarkable except as noted in HPI & below Physical Exam Physical Exam: General: WN/WN female laying flay in bed following HD, NAD Eyes: anicteric, pupils equal and reactive Neck: trachea midline Resp: CTAB, no w/c/r, on room air, SpO2 97% CV: RRR, 3/6 systolic murmur, 1+ pulse on LLE, + L arm Fistula with bruit GI: +BS, soft, non-tender MSK: R AKA with surgical dressing/cap removed, open to air, sutures intact, minimal crusting and minimally tender to palpation, no erythema Psych: AOx3, pleasant and cooperative Neuro: answers questions appropriately, moving all extremities, follows commands Skin: scattered ecchymosis from lab draws Results & Data Results & Data ([facility]) Vital Signs (Past 12 Hours) Vital Signs Temp Pulse Resp BP Pulse Ox 07/18/21 07:51 36.8 C 84 16 179/70 H 97 07/17/21 20:25 37.4 C 95 H 14 184/69 H 94 Laboratory Results 07/18/21 07/18/21 07/18/21 Range/Units 08:02 05:46 05:46 WBC 11.69 H (4.8-10.8) K/uL RBC 3.60 L (4.2-5.4) M/uL Hgb 10.3 L (12.0-16.0) g/dL Hct 31.9 L (37-47) % MCV 88.6 (80-100) fL MCH 28.6 (25-34) pg MCHC 32.3 (32-36) g/dL RDW Std Deviation 52.6 H (36.4-46.3) fL RDW Coeff of Chris 16.4 H (11.5-14.5) % Plt Count 275 (130-400) K/uL MPV 9.9 (7.4-10.4) fL Immature Gran % (Auto) 1.4 % Neut % (Auto) 67.9 % Lymph % (Auto) 11.7 % Larue % (Auto) 13.7 % Eos % (Auto) 4.9 % Baso % (Auto) 0.4 % Neut # (Auto) 7.94 H (1.4-6.5) K/uL Lymph # (Auto) 1.37 (1.2-3.4) K/uL Larue # (Auto) 1.60 H (0.11-0.59) K/uL Eos # (Auto) 0.57 H (0-0.5) K/uL Baso # (Auto) 0.05 (0-0.2) K/uL Immature Gran # (Auto) 0.16 H (0.00-0.02) K/uL Sodium 131 L (136-145) mmol/L Potassium 4.6 (3.5-5.1) mmol/L Chloride 98 (98-107) mmol/L Carbon Dioxide 24 (21-32) mmol/L Anion Gap 9 (3-11) BUN 68 H D (6-23) mg/dl Creatinine 3.43 H D (0.6-1.2) mg/dl Est Cr Clr Drug Dosing 13.8 ml/min Est GFR ( Amer) 14.1 ml/min Est GFR (Non-Af Amer) 12.1 ml/min BUN/Creatinine Ratio 19.8 (10-20) Glucose 125 H (70-99(Fasting)) mg/dl POC Glucose 166 H (70-99) mg/dl Calcium 9.6 (8.5-10.1) mg/dl Iron 17 L (35-150) mcg/dl TIBC 167 L (250-450) mcg/dl Unsaturated IBC 150 L (155-355) mcg/dl Transferrin % Sat 10 L (15-50) % Ferritin 1549.0 H (8-388) ng/ml 07/17/21 07/17/21 07/17/21 Range/Units 20:27 17:49 17:48 WBC (4.8-10.8) K/uL RBC (4.2-5.4) M/uL Hgb (12.0-16.0) g/dL Hct (37-47) % MCV (80-100) fL MCH (25-34) pg MCHC (32-36) g/dL RDW Std Deviation (36.4-46.3) fL RDW Coeff of Chris (11.5-14.5) % Plt Count (130-400) K/uL MPV (7.4-10.4) fL Immature Gran % (Auto) % Neut % (Auto) % Lymph % (Auto) % Larue % (Auto) % Eos % (Auto) % Baso % (Auto) % Neut # (Auto) (1.4-6.5) K/uL Lymph # (Auto) (1.2-3.4) K/uL Larue # (Auto) (0.11-0.59) K/uL Eos # (Auto) (0-0.5) K/uL Baso # (Auto) (0-0.2) K/uL Immature Gran # (Auto) (0.00-0.02) K/uL Sodium (136-145) mmol/L Potassium (3.5-5.1) mmol/L Chloride (98-107) mmol/L Carbon Dioxide (21-32) mmol/L Anion Gap (3-11) BUN (6-23) mg/dl Creatinine (0.6-1.2) mg/dl Est Cr Clr Drug Dosing ml/min Est GFR ( Amer) ml/min Est GFR (Non-Af Amer) ml/min BUN/Creatinine Ratio (10-20) Glucose (70-99(Fasting)) mg/dl POC Glucose 215 H 75 69 L* (70-99) mg/dl Calcium (8.5-10.1) mg/dl Iron (35-150) mcg/dl TIBC (250-450) mcg/dl Unsaturated IBC (155-355) mcg/dl Transferrin % Sat (15-50) % Ferritin (8-388) ng/ml 07/17/21 07/17/21 07/17/21 Range/Units 17:30 17:29 17:12 WBC (4.8-10.8) K/uL RBC (4.2-5.4) M/uL Hgb (12.0-16.0) g/dL Hct (37-47) % MCV (80-100) fL MCH (25-34) pg MCHC (32-36) g/dL RDW Std Deviation (36.4-46.3) fL RDW Coeff of Chris (11.5-14.5) % Plt Count (130-400) K/uL MPV (7.4-10.4) fL Immature Gran % (Auto) % Neut % (Auto) % Lymph % (Auto) % Larue % (Auto) % Eos % (Auto) % Baso % (Auto) % Neut # (Auto) (1.4-6.5) K/uL Lymph # (Auto) (1.2-3.4) K/uL Larue # (Auto) (0.11-0.59) K/uL Eos # (Auto) (0-0.5) K/uL Baso # (Auto) (0-0.2) K/uL Immature Gran # (Auto) (0.00-0.02) K/uL Sodium (136-145) mmol/L Potassium (3.5-5.1) mmol/L Chloride (98-107) mmol/L Carbon Dioxide (21-32) mmol/L Anion Gap (3-11) BUN (6-23) mg/dl Creatinine (0.6-1.2) mg/dl Est Cr Clr Drug Dosing ml/min Est GFR ( Amer) ml/min Est GFR (Non-Af Amer) ml/min BUN/Creatinine Ratio (10-20) Glucose (70-99(Fasting)) mg/dl POC Glucose 66 L* 63 L* 66 L* (70-99) mg/dl Calcium (8.5-10.1) mg/dl Iron (35-150) mcg/dl TIBC (250-450) mcg/dl Unsaturated IBC (155-355) mcg/dl Transferrin % Sat (15-50) % Ferritin (8-388) ng/ml 07/17/21 Range/Units 12:06 WBC (4.8-10.8) K/uL RBC (4.2-5.4) M/uL Hgb (12.0-16.0) g/dL Hct (37-47) % MCV (80-100) fL MCH (25-34) pg MCHC (32-36) g/dL RDW Std Deviation (36.4-46.3) fL RDW Coeff of Chris (11.5-14.5) % Plt Count (130-400) K/uL MPV (7.4-10.4) fL Immature Gran % (Auto) % Neut % (Auto) % Lymph % (Auto) % Larue % (Auto) % Eos % (Auto) % Baso % (Auto) % Neut # (Auto) (1.4-6.5) K/uL Lymph # (Auto) (1.2-3.4) K/uL Larue # (Auto) (0.11-0.59) K/uL Eos # (Auto) (0-0.5) K/uL Baso # (Auto) (0-0.2) K/uL Immature Gran # (Auto) (0.00-0.02) K/uL Sodium (136-145) mmol/L Potassium (3.5-5.1) mmol/L Chloride (98-107) mmol/L Carbon Dioxide (21-32) mmol/L Anion Gap (3-11) BUN (6-23) mg/dl Creatinine (0.6-1.2) mg/dl Est Cr Clr Drug Dosing ml/min Est GFR ( Amer) ml/min Est GFR (Non-Af Amer) ml/min BUN/Creatinine Ratio (10-20) Glucose (70-99(Fasting)) mg/dl POC Glucose 211 H (70-99) mg/dl Calcium (8.5-10.1) mg/dl Iron (35-150) mcg/dl TIBC (250-450) mcg/dl Unsaturated IBC (155-355) mcg/dl Transferrin % Sat (15-50) % Ferritin (8-388) ng/ml PG Care Time/CCT Total # of Minutes Spent Total Time Spent with Patient: Total time spent is greater than 50% in coordination of care (as documented) at patient's floor/unit and/or counseling patient: Coding Level of Care Code 80012 Subseq Hosp Care Lvl 3 Diagnoses Bacteremia R78.81 Sepsis A41.9 Sepsis acute organ dysfunction status: unspecified Sepsis type: sepsis due to unspecified organism Dehiscence of wound T81.30XA Type 2 diabetes mellitus with insulin therapy E11.9; Z79.4 Anemia N18.6; D63.1; Z99.2 Anemia type: due to chronic kidney disease Chronic kidney disease stage: on chronic dialysis End-stage renal disease on hemodialysis N18.6; Z99.2 CAD (coronary artery disease) I25.10 Depression F32.9 Dyslipidemia E78.5 Heart failure with mid-range ejection fraction I50.9 Hypertension I10 Hypertension type: unspecified Moderate calcific aortic stenosis I35.0 (1) Anemia Anemia type: due to chronic kidney disease Chronic kidney disease stage: on chronic dialysis Qualified Code(s): N18.6 - End stage renal disease; D63.1 - A nemia in chronic kidney disease; Z99.2 - Dependence on renal dialysis (2) Sepsis Sepsis acute organ dysfunction status: unspecified Sepsis type: sepsis due to unspecified organism Qualified Code(s): A41.9 - Sepsis, unspecified organism (3) Hypertension Hypertension type: unspecified Qualified Code(s): I10 - Essential (primary) hypertension
[2021-07-18] MEDS ORDERED: IRON SUCROSE 300 MG in SODIUM CHLORIDE 0.9% 250 ML IV STA (08:26)
--- NOTE | 2021-07-18 08:44 | Nephrology Progress Note ---
Date of Service July 18, 2021 Assessment & Plan (1) End-stage renal disease on hemodialysis: Plan: * Will schedule HD today and attempt 3L UF. Challenging EDW due to recent AKA. 07/17 CXR w/ mild pulmonary congestion and small R effusion. Patient is breathing comfortably on RA * Outpatient HD MWF: Rx 3.5 hrs, 180 optiflux, Qb 350/ Qd 800, 2K bath. EDW 83.5 (will need to be adjusted due to R AKA) (2) Anemia: Plan: * Will provide EMELINA w/ HD (3) Infection of right knee: Plan: * s/p debridement and hardware removal R knee 07/07 * s/p R AKA 07/10/21 * Declined PT session 07/15/21, 07/16/21. Encouraged participation in PT for strengthening Admission and Anticipated Discharge Date Admission Date: July 06, 2021 Subjective Ms. Bolivar was evaluated in her hospital room this morning. She was just starting PT. She voiced no new medical concerns Review of Systems Constitutional: no fever Eyes: no worsening vision and no problem reported Ear, Nose, Mouth, Throat: no problem reported Respiratory: no cough and no dyspnea Cardiovascular: no chest pain, no palpitations and no edema Gastrointestinal: no abdominal pain, no nausea, no vomiting and no diarrhea/loose stools Genitourinary: no dysuria and no hematuria Musculoskeletal: no back pain Integumentary: no rash Neurologic: no confusion Physical Exam Constitutional: not in distress Eyes: PERRL, conjunctivae normal, anicteric sclerae ENMT: external ear and nose normal, oropharynx normal Neck: trachea midline, no thyromegaly Respiratory: normal respiratory effort, lungs clear to auscultation Cardiovascular: RRR, no murmur, no edema Extremities: + AV fistula (+ bruit) Gastrointestinal (Abdomen): normal bowel sounds, soft, nontender, no hepatosplenomegaly Skin: no rashes, warm and dry Neurologic: awake; not confused Results & Data ([facility]) Vital Signs (Past 12 Hours) Vital Signs Temp Pulse Resp BP Pulse Ox 07/18/21 07:51 36.8 C 84 16 179/70 H 97 Laboratory Results Laboratory Tests 07/18/21 07/18/21 05:46 05:46 WBC 11.69 H Hgb 10.3 L Hct 31.9 L Plt Count 275 Sodium 131 L Potassium 4.6 Chloride 98 Carbon Dioxide 24 BUN 68 H D Creatinine 3.43 H D Glucose 125 H PG Care Time/CCT Total # of Minutes Spent Total Time Spent with Patient: Total time spent is greater than 50% in coordination of care (as documented) at patient's floor/unit and/or counseling patient: Coding Level of Care Code 50090 Subseq Hosp Care Lvl 3 Diagnoses End-stage renal disease on hemodialysis N18.6; Z99.2 Anemia N18.6; D63.1; Z99.2 Anemia type: due to chronic kidney disease Chronic kidney disease stage: on chronic dialysis Infection of right knee M00.9 (1) Anemia Anemia type: due to chronic kidney disease Chronic kidney disease stage: on chronic dialysis Qualified Code(s): N18.6 - End stage renal disease; D63.1 - Anemia in chronic kidney disease; Z99.2 - Dependence on renal dialysis
[2021-07-18] MEDS: INSULIN ASPART PER UNIT SC SCH ×4 (09:03→20:59)
[2021-07-18] MEDS: ISOSORBIDE MONO EXTENDED REL 60 MG TABCR PO SCH (15:06)
[2021-07-18] MEDS: amLODIPine BESYLATE 5 MG TAB PO SCH ×2 (15:06→20:59)
[2021-07-18] MEDS: hydrALAZINE TAB 50 MG TAB PO SCH ×3 (15:07→20:58)
[2021-07-18] MEDS: ACETAMINOPHEN 500 MG TAB PO PRN (19:29)
[2021-07-18] MEDS: ATORVASTATIN 40 MG TAB PO SCH (20:59)
[2021-07-18] MEDS: INSULIN GLARGINE SOLOSTAR 100 UNITS/ML 3 ML PEN SQ SCH (21:00)
[2021-07-19 06:27] LABS: Hematocrit (blood only) 31.9 % (37-47); Mean Corpuscular Hemoglobin 27.9 pg (25-34); Mean Corpuscular Hgb Conc 31.3 g/dL (32-36); Mean Corpuscular Volume 89.1 fL (80-100); Mean Platelet Volume 9.3 fL (7.4-10.4); Platelet Count 251 K/uL (130-400); RDW Coefficient of Variation 16.5 % (11.5-14.5); RDW Standard Deviation 53.8 fL (36.4-46.3); Red Blood Count 3.58 M/uL (4.2-5.4); White Blood Count 9.04 K/uL (4.8-10.8)
[2021-07-19 06:49] LABS: BUN Creatinine Ratio 14.2 (10-20); Calcium 9.4 mg/dl (8.5-10.1); Creatinine Clr Calc Pharmacy 17.7 ml/min; Est GFR (Non-African American) 16.4 ml/min
--- NOTE | 2021-07-19 08:18 | Hospitalist Progress Note ---
Date of Service July 19, 2021 Assessment & Plan (1) Bacteremia: Plan: Presented with R knee wound dehiscence s/p multiple surgeries and fever at HD Ortho consulted S/P Incision and drainage extremity right knee, extensive debridement right knee, removal of implant from right patella, application of wound vac.(Right) - with Bean Fritz on 07/07 * --> OR cx with enterobacter cloacae which is also present on BCx; * repeat BCx with NGTD > 48 hours -- Previous Cx from knee with Enterococcus faecalis which is not currently growing S/p Right Above Knee Amputation(Right) - Heriberto Ly, DO on 07/09. EBL 100cc Completed Vancomycin from previous infection; intially on Cefepime on admission * Discussed with ID who completed consult to utilize Cipro to complete a 14 day total course (end date July 19) * --> Cipro d/c'd by Dr Ly 07/17 and switched to Bactrim BID x 1 month (prior blood cultures do show sensitivity to such) for abx prophylaxis --> 1 tablet daily dosed for renal function --> Discussed with Dr Spangler last evening given patient with ESRD on HD regarding bactrim vs cipro for prophylaxis, pref Cipro. Discussed with Dr Ly and placed back on Cipro --> he would like her to be on this monthly for abx prophylaxis --> Recommend given AFTER HD on days when patient has HD WBC currently wnl, 9k Hgb stable at 10 -- got Venofer 300mg and epo 10,000 on 07/18 HD on 07/18 for 3L (previously 2.1-2.3L) for pulm congestion. Rec'd continued use of incentive spirometer Working with PT/OT --> planning for [facility] when bed available, not until next week. Checked Hep B panel in anticipation as they will be able to do HD at [facility] Monitor labs in AM (2) Sepsis: Plan: 2nd to R knee infection; as above (3) Dehiscence of wound: Plan: *Postoperative infection of the internal right knee prosthesis Now s/p R AKA by Dr Ly on 07/09, abx as outlined above (4) Type 2 diabetes mellitus with insulin therapy: Plan: Had low BSG on 07/14, lantus reduced to 12u. Again low evening 07/17, lantus held. BSGs improved/stable and continue current dose/monitor (5) Anemia: Plan: Hemoglobin chronically low (baseline 8-9) managed by nephrology with periodic Epogen and IV iron Hgb monitored and has been stable and transfuse as necessary (6) End-stage renal disease on hemodialysis: Plan: Consult nephrology for inpatient hemodialysis management , MWF Aimed for 3L with HD for pulm congestion --> 3L removed 07/18 Appreciate continued assistance by nephrology Checking Hep B panel with AM labs as to be able to have HD at [facility] -- pending (7) CAD (coronary artery disease): Plan: No history of stents Resumed ASA 81mg, but BID post-operatively by ortho No chest pain reported Continue atorvastatin, isosorbide (8) Depression: Plan: Feeling worse with her mood lately with being in the hospital and rehab so much; also has sustained a lot of loss of family members in the past years. Her spirits continue to be improved and she feels less anxious now that the surgery is complete; states she misses her cats as she hasn't been home much in the past several weeks due to hospitalizations/rehabs Mood stable currently, no issues (9) Dyslipidemia: Plan: Continue statin (10) Heart failure with mid-range ejection fraction: Plan: Last echocardiogram 10/2020 with mild LV dysfunction EF 45-50%, moderate aortic stenosis, moderate MR Managed with dialysis for volume ECHO repeated given +BCx --> LV systolic function normal. No regional wma. Mild concentric LVH. EF 60-65%. Severe valvular aortic stenosis. Mild MR. NO VALVULAR vegetation identified. Compared to October 2020, minor progression in aortic stenosis. No longer requiring supplemental oxygen at this time but still with volume overload on CXR/pulm exam as above --> did have drop to 89% last evening and placed on 2L NC, denied SOB --> 3L removed with HD 07/18, currently 96% and comfortable laying flat in bed Nephrology working on new EDW given amputation (11) Hypertension: Plan: Variable; tends to run high but asymptomatic --> currently 160/69 Continue home medications of hydralazine, isosorbide, amlodipine --> consider increasing or adding additional agent for better control? (12) Moderate calcific aortic stenosis: Plan: As above, moderate on last echocardiogram --> now SEVERE. monitor BP control Plan: PT/OT - patient currently interested in rehab and awaiting referrals --> plans for [facility] when bed available, not until next week Updated daughter at bedside 07/16, again afternoon 07/19 Admission and Anticipated Discharge Date Admission Date: July 06, 2021 Supervising Physician Co-Signing Physician Notes Attending Attestation - Chart reviewed in detail, care plan d/w PA Aissatou Mcnair. I agree w/ the tinajero components of her documentation. Miguel Angel Gaitan MD Subjective patient evaluated this morning had O2 on last night as she states her oxygen was slightly less than 90, priors 89% night before. Oxygen off currently and laid flat in bed, no shortness of breath or respiratory distress, no cough/sputum production. Does note she snores when sleeping and wakes herself up with such Denied fever. Pain well controlled with Tylenol. Wondering timeline for prosthesis as she is wanting to stand but having issues -- discussed will have to see after wound healing further along and f/u with ortho to determine timing/prosthetic. Got 3L off with HD yesterday. Eating/drinking no issues, passing gas. No BM but drinking some Miralax currently. Questions/concerns addressed. Will call daughter fernando this afternoon with update. Review of Systems Review of Systems: All systems reviewed & are unremarkable except as noted in HPI & below Physical Exam Physical Exam: General: WN/WN female sitting up in bed, looking out window, no acute distress Eyes: anicteric, pupils equal and reactive Neck: trachea midline Resp: CTAB diminished in R base, no wheezing/rales, 96% on ROOM AIR CV: RRR, 3/6 systolic murmur, 1+ pulse on LLE, + L arm Fistula with bruit GI: +BS, soft, non-tender, no guarding MSK: R AKA with sutures intact, covered with cap, no erythema/drainage, minimally tender Psych: AOx3, pleasant and cooperative Neuro: answers questions appropriately, moving all extremities, follows commands Skin: scattered ecchymosis from lab draws Results & Data Results & Data ([facility]) Vital Signs (Past 12 Hours) Vital Signs Temp Pulse Pulse Resp BP Pulse Ox 07/19/21 07:57 86 16 160/69 H 96 03/09/22 21:24 37.0 C 93 H 19 138/66 91 07/18/21 20:58 94 H 131 H Laboratory Results 07/19/21 07/19/21 07/19/21 Range/Units 11:57 08:16 06:06 WBC (4.8-10.8) K/uL RBC (4.2-5.4) M/uL Hgb (12.0-16.0) g/dL Hct (37-47) % MCV (80-100) fL MCH (25-34) pg MCHC (32-36) g/dL RDW Std Deviation (36.4-46.3) fL RDW Coeff of Chris (11.5-14.5) % Plt Count (130-400) K/uL MPV (7.4-10.4) fL Sodium 136 (136-145) mmol/L Potassium 4.0 (3.5-5.1) mmol/L Chloride 101 (98-107) mmol/L Carbon Dioxide 24 (21-32) mmol/L Anion Gap 11 (3-11) BUN 38 H D (6-23) mg/dl Creatinine 2.68 H D (0.6-1.2) mg/dl Est Cr Clr Drug Dosing 17.7 ml/min Est GFR ( Amer) 19.0 ml/min Est GFR (Non-Af Amer) 16.4 ml/min BUN/Creatinine Ratio 14.2 (10-20) Glucose 115 H (70-99(Fasting)) mg/dl POC Glucose 167 H 119 H (70-99) mg/dl Calcium 9.4 (8.5-10.1) mg/dl Hepatitis A IgM Ab Hep Bs Antigen Hep B Core IgM Ab Hepatitis C Antibody 07/19/21 07/19/21 07/19/21 Range/Units 06:06 06:06 06:06 WBC 9.04 (4.8-10.8) K/uL RBC 3.58 L (4.2-5.4) M/uL Hgb 10.0 L (12.0-16.0) g/dL Hct 31.9 L (37-47) % MCV 89.1 (80-100) fL MCH 27.9 (25-34) pg MCHC 31.3 L (32-36) g/dL RDW Std Deviation 53.8 H (36.4-46.3) fL RDW Coeff of Chris 16.5 H (11.5-14.5) % Plt Count 251 (130-400) K/uL MPV 9.3 (7.4-10.4) fL Sodium (136-145) mmol/L Potassium (3.5-5.1) mmol/L Chloride (98-107) mmol/L Carbon Dioxide (21-32) mmol/L Anion Gap (3-11) BUN (6-23) mg/dl Creatinine (0.6-1.2) mg/dl Est Cr Clr Drug Dosing ml/min Est GFR ( Amer) ml/min Est GFR (Non-Af Amer) ml/min BUN/Creatinine Ratio (10-20) Glucose (70-99(Fasting)) mg/dl POC Glucose (70-99) mg/dl Calcium (8.5-10.1) mg/dl Hepatitis A IgM Ab Pending Hep Bs Antigen Pending Hep B Core IgM Ab Pending Hepatitis C Antibody Pending 07/18/21 07/18/21 Range/Units 20:38 17:11 WBC (4.8-10.8) K/uL RBC (4.2-5.4) M/uL Hgb (12.0-16.0) g/dL Hct (37-47) % MCV (80-100) fL MCH (25-34) pg MCHC (32-36) g/dL RDW Std Deviation (36.4-46.3) fL RDW Coeff of Chris (11.5-14.5) % Plt Count (130-400) K/uL MPV (7.4-10.4) fL Sodium (136-145) mmol/L Potassium (3.5-5.1) mmol/L Chloride (98-107) mmol/L Carbon Dioxide (21-32) mmol/L Anion Gap (3-11) BUN (6-23) mg/dl Creatinine (0.6-1.2) mg/dl Est Cr Clr Drug Dosing ml/min Est GFR ( Amer) ml/min Est GFR (Non-Af Amer) ml/min BUN/Creatinine Ratio (10-20) Glucose (70-99(Fasting)) mg/dl POC Glucose 185 H 101 H (70-99) mg/dl Calcium (8.5-10.1) mg/dl Hepatitis A IgM Ab Hep Bs Antigen Hep B Core IgM Ab Hepatitis C Antibody PG Care Time/CCT Total # of Minutes Spent Total Time Spent with Patient: Total time spent is greater than 50% in coordination of care (as documented) at patient's floor/unit and/or counseling patient: Coding Level of Care Code 55888 Subseq Hosp Care Lvl 2 Diagnoses Bacteremia R78.81 Sepsis A41.9 Sepsis acute organ dysfunction status: unspecified Sepsis type: sepsis due to unspecified organism Dehiscence of wound T81.30XA Type 2 diabetes mellitus with insulin therapy E11.9; Z79.4 Anemia N18.6; D63.1; Z99.2 Anemia type: due to chronic kidney disease Chronic kidney disease stage: on chronic dialysis End-stage renal disease on hemodialysis N18.6; Z99.2 CAD (coronary artery disease) I25.10 Depression F32.9 Dyslipidemia E78.5 Heart failure with mid-range ejection fraction I50.9 Hypertension I10 Hypertension type: unspecified Moderate calcific aortic stenosis I35.0 (1) Anemia Anemia type: due to chronic kidney disease Chronic kidney disease stage: on chronic dialysis Qualified Code(s): N18.6 - End stage renal disease; D63.1 - Anemia in chronic kidney disease; Z99.2 - Dependence on renal dialysis (2) Sepsis Sepsis acute organ dysfunction status: unspecified Sepsis type: sepsis due to unspecified organism Qualified Code(s): A41.9 - Sepsis, unspecified organism (3) Hypertension Hypertension type: unspecified Qualified Code(s): I10 - Essential (primary) hypertension
[2021-07-19] MEDS ORDERED: POLYETHYLENE (MIRALAX) 17 GM PACK PO STA (08:20)
--- NOTE | 2021-07-19 08:46 | Nephrology Progress Note ---
Date of Service July 19, 2021 Assessment & Plan (1) End-stage renal disease on hemodialysis: Plan: * No acute indication for HD today. Volume status has improved following 3L UF w/ dialysis yesterday * Outpatient HD MWF: Rx 3.5 hrs, 180 optiflux, Qb 350/ Qd 800, 2K bath. EDW 83.5 (will need to be adjusted due to R AKA) (2) Anemia: Plan: * Will provide EMELINA w/ HD * Elevated ferritin precludes IV iron at this time (3) Infection of right knee: Plan: * s/p debridement and hardware removal R knee 07/07 * s/p R AKA 07/10/21 * Now working w/ physical therapy. Difficulty standing as she cannot support her weight using her arms on a walker. She is interested in being evaluated for a RLE prosthesis Admission and Anticipated Discharge Date Admission Date: July 06, 2021 Subjective Ms. Bolivar was evaluated in her hospital room this morning. Oxygen has been reduced and she was breathing comfortably flat in bed on 1L O2 NC. Ms. Bolivar reports that she remains weak and has difficulty trying to stand during PT due to weakness in her arms. She is interested in being evaluated for a RLE prosthesis because she does want to walk again Review of Systems 2 Constitutional: no fever Eyes: no worsening vision and no problem reported Ear, Nose, Mouth, Throat: no problem reported Respiratory: no cough and no dyspnea Cardiovascular: no chest pain, no palpitations and no edema Gastrointestinal: no abdominal pain, no nausea, no vomiting and no diarrhea/loose stools Genitourinary: no dysuria and no hematuria Musculoskeletal: no back pain Integumentary: no rash Neurologic: no confusion Physical Exam Constitutional: not in distress Eyes: PERRL, conjunctivae normal, anicteric sclerae ENMT: external ear and nose normal, oropharynx normal Neck: trachea midline, no thyromegaly Respiratory: normal respiratory effort, lungs clear to auscultation Cardiovascular: RRR, no murmur, no edema Extremities: + AV fistula (+ bruit) Gastrointestinal (Abdomen): normal bowel sounds, soft, nontender, no hepatosplenomegaly Skin: no rashes, warm and dry Neurologic: awake; not confused Results & Data ([facility]) Vital Signs (Past 12 Hours) Vital Signs Temp Pulse Pulse Resp BP Pulse Ox 07/19/21 07:57 86 16 160/69 H 96 07/18/21 21:24 37.0 C 93 H 19 138/66 91 07/18/21 20:58 94 H 131 H Laboratory Results Laboratory Tests 07/19/21 07/19/21 06:06 06:06 WBC 9.04 Hgb 10.0 L Hct 31.9 L Plt Count 251 Sodium 136 Potassium 4.0 Chloride 101 Carbon Dioxide 24 Creatinine 2.68 H D Glucose 115 H Laboratory Tests 07/18/21 05:46 Transferrin % Sat 10 L Ferritin 1549.0 H PG Care Time/CCT Total # of Minutes Spent Total Time Spent with Patient: Total time spent is greater than 50% in coordination of care (as documented) at patient's floor/unit and/or counseling patient: Coding Level of Care Code 46646 Subseq Hosp Care Lvl 3 Diagnoses End-stage renal disease on hemodialysis N18.6; Z99.2 Anemia N18.6; D63.1; Z99.2 Anemia type: due to chronic kidney disease Chronic kidney disease stage: on chronic dialysis Infection of right knee M00.9 (1) Anemia Anemia type: due to chronic kidney disease Chronic kidney disease stage: on chronic dialysis Qualified Code(s): N18.6 - End stage renal disease; D63.1 - Anemia in chronic kidney disease; Z99.2 - Dependence on renal dialysis
[2021-07-19] MEDS: hydrALAZINE TAB 50 MG TAB PO SCH ×3 (09:08→20:23)
[2021-07-19] MEDS: ASPIRIN 81 MG ECTAB PO SCH ×2 (09:09→20:21)
[2021-07-19] MEDS: CHOLECALCIFEROL 1,000 UNITS 25 MCG TAB PO SCH ×2 (09:09→20:21)
[2021-07-19] MEDS: amLODIPine BESYLATE 5 MG TAB PO SCH ×2 (09:09→20:22)
[2021-07-19] MEDS: SENNA 8.6 MG TAB PO SCH (09:09)
[2021-07-19] MEDS: MULTIVITAMIN TAB PO SCH (09:09)
[2021-07-19] MEDS: CALCIUM 600MG + VIT D 400 IU TAB PO SCH (09:09)
[2021-07-19] MEDS: CIPROFLOXACIN 500 MG TAB PO SCH (09:09)
[2021-07-19] MEDS: DOCUSATE SODIUM 100 MG CAP PO SCH ×2 (09:09→20:22)
[2021-07-19] MEDS: ASCORBIC ACID 500 MG TAB PO SCH (09:10)
[2021-07-19] MEDS: VENLAFAXINE HCL XR 150 MG CAPXR PO SCH (09:10)
[2021-07-19] MEDS: ISOSORBIDE MONO EXTENDED REL 60 MG TABCR PO SCH (09:10)
[2021-07-19] MEDS: INSULIN ASPART PER UNIT SC SCH ×4 (09:14→20:26)
[2021-07-19] MEDS: ATORVASTATIN 40 MG TAB PO SCH (20:22)
[2021-07-19] MEDS: INSULIN GLARGINE SOLOSTAR 100 UNITS/ML 3 ML PEN SQ SCH (20:23)
[2021-07-20 05:46] LABS: Hepatitis A Antibody IgM NON-REACTIVE (NON-REACTIVE); Hepatitis B Core Antibody IgM NON-REACTIVE (NON-REACTIVE)
[2021-07-20 06:27] LABS: Hematocrit (blood only) 31.5 % (37-47); Hemoglobin 9.8 g/dL (12.0-16.0); Mean Corpuscular Hgb Conc 31.1 g/dL (32-36); Mean Platelet Volume 9.3 fL (7.4-10.4); Platelet Count 282 K/uL (130-400); RDW Coefficient of Variation 16.6 % (11.5-14.5); RDW Standard Deviation 53.7 fL (36.4-46.3); White Blood Count 10.63 K/uL (4.8-10.8)
[2021-07-20] MEDS ORDERED: SODIUM CHLORIDE 0.9% 1000ML 1,000 ML IV PRN (07:00)
[2021-07-20] MEDS ORDERED: HEPARIN SOD (PORCINE) 1000 UNIT/ML IV SCH (07:00)
[2021-07-20] MEDS ORDERED: HEPARIN SOD (PORCINE) 1000 UNIT/ML IV ONE (07:00)
[2021-07-20] MEDS ORDERED: EPOETIN ALFA 10,000 UNITS/ML VIAL IV SCH (07:00)
[2021-07-20 07:13] LABS: BUN Creatinine Ratio 16.9 (10-20); Calcium 9.5 mg/dl (8.5-10.1); Creatinine Clr Calc Pharmacy 13.6 ml/min; Est GFR (African American) 13.8 ml/min; Est GFR (Non-African American) 11.9 ml/min; Potassium 4.6 mmol/L (3.5-5.1)
[2021-07-20] MEDS: MULTIVITAMIN TAB PO SCH (07:38)
[2021-07-20] MEDS: SENNA 8.6 MG TAB PO SCH (07:38)
[2021-07-20] MEDS: CIPROFLOXACIN 500 MG TAB PO SCH (07:38)
[2021-07-20] MEDS: CALCIUM 600MG + VIT D 400 IU TAB PO SCH (07:38)
[2021-07-20] MEDS: VENLAFAXINE HCL XR 150 MG CAPXR PO SCH (07:38)
[2021-07-20] MEDS: CHOLECALCIFEROL 1,000 UNITS 25 MCG TAB PO SCH ×2 (07:38→21:15)
[2021-07-20] MEDS: ASPIRIN 81 MG ECTAB PO SCH ×2 (07:38→21:15)
[2021-07-20] MEDS: ASCORBIC ACID 500 MG TAB PO SCH (07:38)
[2021-07-20] MEDS: DOCUSATE SODIUM 100 MG CAP PO SCH ×2 (07:38→21:15)
--- NOTE | 2021-07-20 08:11 | Hospitalist Progress Note ---
Date of Service July 20, 2021 Assessment & Plan (1) Bacteremia: Plan: Presented with R knee wound dehiscence s/p multiple surgeries and fever at HD Ortho consulted S/P Incision and drainage extremity right knee, extensive debridement right knee, removal of implant from right patella, application of wound vac.(Right) - with Bean Jeffersonmichael on 07/07 * --> OR cx with enterobacter cloacae which is also present on BCx; * repeat BCx with NGTD > 48 hours -- Previous Cx from knee with Enterococcus faecalis which is not currently growing S/p Right Above Knee Amputation(Right) - Heriberto Ly, on 07/09. EBL 100cc Completed Vancomycin from previous infection; intially on Cefepime on admission * Discussed with ID who completed consult to utilize Cipro to complete a 14 day total course (end date July 19), however extended to 1 month for abx prophy laxis * (See prior notes regarding bactrim vs cipro) * --> Recommend given AFTER HD on days when patient has HD (got this morning prior to HD) WBC currently wnl, afebrile Hgb stable -- got Venofer 300mg and epo 10,000 on 07/18 HD on 07/18 for 3L (previously 2.1-2.3L), additional 2.45L on 07/20 Continue to use incentive spirometer PT/OT --> [facility] and will plan for d/c after HD Checked Hep B panel in anticipation as they will be able to do HD at [facility] Monitor labs in AM (2) Sepsis: Plan: 2nd to R knee infection; as above (3) Dehiscence of wound: Plan: *Postoperative infection of the internal right knee prosthesis Now s/p R AKA by Dr Ly on 07/09, abx as outlined above (4) Type 2 diabetes mellitus with insulin therapy: Plan: Had low BSG on 07/14, lantus reduced to 12u. Again low evening 07/17, lantus held. BSGs improved/stable and continue current dose/monitor (5) Anemia: Plan: Hemoglobin chronically low (baseline 8-9) managed by nephrology with periodic Epogen and IV iron Hgb monitored and has been stable and transfuse as necessary (6) End-stage renal disease on hemodialysis: Plan: Consult nephrology for inpatient hemodialysis management , MWF Aimed for 3L with HD for pulm congestion --> 3L removed 07/18, 2.5L 07/20 Appreciate continued assistance by nephrology Checked Hep B panel with AM labs as to be able to have HD at [facility] (7) CAD (coronary artery disease): Plan: No history of stents Resumed ASA 81mg, but BID post-operatively by ortho No chest pain reported Continue atorvastatin, isosorbide (8) Depression: Plan: Feeling worse with her mood lately with being in the hospital and rehab so much; also has sustained a lot of loss of family members in the past years. Her spirits continue to be improved and she feels less anxious now that the surgery is complete; states she misses her cats as she hasn't been home much in the past several weeks due to hospitalizations/rehabs Mood stable currently, no issues (9) Dyslipidemia: Plan: Continue statin (10) Heart failure with mid-range ejection fraction: Plan: Last echocardiogram 10/2020 with mild LV dysfunction EF 45-50%, moderate aortic stenosis, moderate MR Managed with dialysis for volume ECHO repeated given +BCx --> LV systolic function normal. No regional wma. Mild concentric LVH. EF 60-65%. Severe valvular aortic stenosis. Mild MR. NO VALVULAR vegetation identified. Compared to October 2020, minor progression in aortic stenosis. No longer requiring supplemental oxygen at this time but still with volume overload on CXR/pulm exam as above --> did have drop to 89% last evening and placed on 2L NC, denied SOB --> 3L w/ HD 07/18 and additional 2.5L today Comfortable laying flat, on room air Nephrology working on new EDW given amputation (11) Hypertension: Plan: Variable; tends to run high but asymptomatic BP currently 180/54 and RN administering medications as told to hold prior to HD Continue home medications of hydralazine, isosorbide, amlodipine --> consider increasing or adding additional agent for better control? (12) Moderate calcific aortic stenosis: Plan: As above, moderate on last echocardiogram --> now SEVERE. monitor BP control Plan: PT/OT - patient currently interested in rehab and awaiting referrals --> plans for [facility] when bed Friday after HD Updated daughter at bedside 07/16, again afternoon 07/19 Admission and Anticipated Discharge Date Admission Date: July 06, 2021 Supervising Physician Co-Signing Physician Notes Attending Attestation - Chart reviewed in detail, care plan d/w PA Aissatou Mcnair. I agree w/ the tinajero components of her documentation. Miguel Angel Gaitan MD Subjective Patient evaluated this afternoon after HD. Dialyzed for 2.45L Doing well, sitting in bed, eating protein squares as brought in by daughter. Small BM overnight, working on another. Discussed [facility] to have bed on Friday and will plan for d/c after HD. She would like to see about assistance with transportation and will alert CM. No fever, chills, chest pain. Able to lay flat without shortness of breath and remains stable on room air. No abdominal pain, nausea or vomiting. Questions/concerns addressed at this time. Review of Systems Review of Systems: All systems reviewed & are unremarkable except as noted in HPI & below Physical Exam Physical Exam: General: WN/WN female sitting up in bed, looking out window, no acute distress, eating protein squares Eyes: anicteric, pupils equal and reactive Neck: trachea midline Resp: CTAB diminished in R base, no wheezing/rales, 93% on ROOM AIR CV: RRR, 3/6 systolic murmur, 1+ pulse on LLE, + L arm Fistula with bruit GI: +BS, soft, non-tender, no guarding MSK: R AKA with sutures intact, covered with cap, no erythema/drainage, non- tender Psych: AOx3, pleasant and cooperative Neuro: answers questions appropriately, moving all extremities, follows commands Skin: scattered ecchymosis from lab draws Results & Data Results & Data ([facility]) Vital Signs (Past 12 Hours) Vital Signs Temp Pulse Pulse Resp BP Pulse Ox 07/20/21 07:46 36.4 C L 78 16 178/71 H 92 07/19/21 20:19 37.5 C 87 20 177/70 H 91 Laboratory Results 07/20/21 07/20/21 07/19/21 Range/Units 06:10 06:10 20:16 WBC 10.63 (4.8-10.8) K/uL RBC 3.50 L (4.2-5.4) M/uL Hgb 9.8 L (12.0-16.0) g/dL Hct 31.5 L (37-47) % MCV 90.0 (80-100) fL MCH 28.0 (25-34) pg MCHC 31.1 L (32-36) g/dL RDW Std Deviation 53.7 H (36.4-46.3) fL RDW Coeff of Chris 16.6 H (11.5-14.5) % Plt Count 282 (130-400) K/uL MPV 9.3 (7.4-10.4) fL Sodium 133 L (136-145) mmol/L Potassium 4.6 (3.5-5.1) mmol/L Chloride 100 (98-107) mmol/L Carbon Dioxide 25 (21-32) mmol/L Anion Gap 8 (3-11) BUN 59 H D (6-23) mg/dl Creatinine 3.49 H D (0.6-1.2) mg/dl Est Cr Clr Drug Dosing 13.6 ml/min Est GFR ( Amer) 13.8 ml/min Est GFR (Non-Af Amer) 11.9 ml/min BUN/Creatinine Ratio 16.9 (10-20) Glucose 88 (70-99(Fasting)) mg/dl POC Glucose 179 H (70-99) mg/dl Calcium 9.5 (8.5-10.1) mg/dl Hepatitis A IgM Ab (NON-REACTIVE) Hep B Core IgM Ab (NON-REACTIVE) 07/19/21 07/19/21 07/19/21 Range/Units 17:04 11:57 08:16 WBC (4.8-10.8) K/uL RBC (4.2-5.4) M/uL Hgb (12.0-16.0) g/dL Hct (37-47) % MCV (80-100) fL MCH (25-34) pg MCHC (32-36) g/dL RDW Std Deviation (36.4-46.3) fL RDW Coeff of Chris (11.5-14.5) % Plt Count (130-400) K/uL MPV (7.4-10.4) fL Sodium (136-145) mmol/L Potassium (3.5-5.1) mmol/L Chloride (98-107) mmol/L Carbon Dioxide (21-32) mmol/L Anion Gap (3-11) BUN (6-23) mg/dl Creatinine (0.6-1.2) mg/dl Est Cr Clr Drug Dosing ml/min Est GFR ( Amer) ml/min Est GFR (Non-Af Amer) ml/min BUN/Creatinine Ratio (10-20) Glucose (70-99(Fasting)) mg/dl POC Glucose 96 167 H 119 H (70-99) mg/dl Calcium (8.5-10.1) mg/dl Hepatitis A IgM Ab (NON-REACTIVE) Hep B Core IgM Ab (NON-REACTIVE) 07/19/21 Range/Units 06:06 WBC (4.8-10.8) K/uL RBC (4.2-5.4) M/uL Hgb (12.0-16.0) g/dL Hct (37-47) % MCV (80-100) fL MCH (25-34) pg MCHC (32-36) g/dL RDW Std Deviation (36.4-46.3) fL RDW Coeff of Chris (11.5-14.5) % Plt Count (130-400) K/uL MPV (7.4-10.4) fL Sodium (136-145) mmol/L Potassium (3.5-5.1) mmol/L Chloride (98-107) mmol/L Carbon Dioxide (21-32) mmol/L Anion Gap (3-11) BUN (6-23) mg/dl Creatinine (0.6-1.2) mg/dl Est Cr Clr Drug Dosing ml/min Est GFR ( Amer) ml/min Est GFR (Non-Af Amer) ml/min BUN/Creatinine Ratio (10-20) Glucose (70-99(Fasting)) mg/dl POC Glucose (70-99) mg/dl Calcium (8.5-10.1) mg/dl Hepatitis A IgM Ab NON-REACTIVE (NON-REACTIVE) Hep B Core IgM Ab NON-REACTIVE (NON-REACTIVE) PG Care Time/CCT Total # of Minutes Spent Total Time Spent with Patient: Total time spent is greater than 50% in coordination of care (as documented) at patient's floor/unit and/or counseling patient: Coding Level of Care Code 58146 Subseq Hosp Care Lvl 2 Diagnoses Bacteremia R78.81 Sepsis A41.9 Sepsis acute organ dysfunction status: unspecified Sepsis type: sepsis due to unspecified organism Dehiscence of wound T81.30XA Type 2 diabetes mellitus with insulin therapy E11.9; Z79.4 Anemia N18.6; D63.1; Z99.2 Anemia type: due to chronic kidney disease Chronic kidney disease stage: on chronic dialysis End-stage renal disease on hemodialysis N18.6; Z99.2 CAD (coronary artery disease) I25.10 Depression F32.9 Dyslipidemia E78.5 Heart failure with mid-range ejection fraction I50.9 Hypertension I10 Hypertension type: unspecified Moderate calcific aortic stenosis I35.0 (1) Anemia Anemia type: due to chronic kidney disease Chronic kidney disease stage: on chronic dialysis Qualified Code(s): N18.6 - End stage renal disease; D63.1 - Anemia in chronic kidney disease; Z99.2 - Dependence on renal dialysis (2) Sepsis Sepsis acute organ dysfunction status: unspecified Sepsis type: sepsis due to unspecified organism Qualified Code(s): A41.9 - Sepsis, unspecified organism (3) Hypertension Hypertension type: unspecified Qualified Code(s): I10 - Essential (primary) hypertension
[2021-07-20] MEDS: INSULIN ASPART PER UNIT SC SCH ×4 (08:34→21:16)
[2021-07-20 08:38] LABS: Basophils # (auto) 0.05 K/uL (0-0.2); Basophils % (auto) 0.5 %; Eosinophils # (auto) 0.52 K/uL (0-0.5); Eosinophils % (auto) 5.1 %; Immature Granulocytes # (auto) 0.09 K/uL (0.00-0.02); Immature Granulocytes % (auto) 0.9 %; Lymphocytes # (auto) 1.76 K/uL (1.2-3.4); Lymphocytes % (auto) 17.1 %; Monocytes # (auto) 1.55 K/uL (0.11-0.59); Monocytes % (auto) 15.1 %; Neutrophils # (auto) 6.32 K/uL (1.4-6.5); Neutrophils % (auto) 61.3 %
[2021-07-20 08:49] LABS: Hepatitis B Surf Ag Rflx Conf Neg (Neg)
[2021-07-20 09:19] LABS: Hepatitis C IgG 13Yrs+Old_Rflx Neg (Neg)
[2021-07-20 09:33] LABS: RBC Morphology Unremarkable
--- NOTE | 2021-07-20 10:09 | Nephrology Progress Note ---
Date of Service July 20, 2021 Assessment & Plan (1) End-stage renal disease on hemodialysis: Plan: * HD today. Will challenge EDW and attempt 2L UF * Outpatient HD MWF: Rx 3.5 hrs, 180 optiflux, Qb 350/ Qd 800, 2K bath. EDW 83.5 (will need to be adjusted due to R AKA) (2) Anemia: Plan: * Will provide EMELINA w/ HD * Elevated ferritin precludes IV iron at this time (3) Infection of right knee: Plan: * s/p debridement and hardware removal R knee 07/07 * s/p R AKA 07/10/21 * Now working w/ physical therapy. Difficulty standing as she cannot support her weight using her arms on a walker. She is interested in being evaluated for a RLE prosthesis Admission and Anticipated Discharge Date Admission Date: July 06, 2021 Subjective Ms. Bolivar was evaluated in her hospital room this morning. She is now breat speedy comfortably on RA. Ms. Bolivar reports that she remains weak and has difficulty trying to stand during PT due to weakness in her arms. She is interested in being evaluated for a RLE prosthesis because she does want to walk again. She anticipates discharge to [facility] next week once a bed becomes available Review of Systems Constitutional: no fever Eyes: no worsening vision and no problem reported Ear, Nose, Mouth, Throat: no problem reported Respiratory: no cough and no dyspnea Cardiovascular: no chest pain, no palpitations and no edema Gastrointestinal: no abdominal pain, no nausea, no vomiting and no diarrhea/loose stools Genitourinary: no dysuria and no hematuria Musculoskeletal: no back pain Integumentary: no rash Neurologic: no confusion Physical Exam Constitutional: not in distress Eyes: PERRL, conjunctivae normal, anicteric sclerae ENMT: external ear and nose normal, oropharynx normal Neck: trachea midline, no thyromegaly Respiratory: normal respiratory effort, lungs clear to auscultation Cardiovascular: RRR, no murmur, no edema Extremities: + AV fistula (+ bruit) Gastrointestinal (Abdomen): normal bowel sounds, soft, nontender, no hepa tosplenomegaly Skin: no rashes, warm and dry Neurologic: awake; not confused Results & Data ([facility]) Vital Signs (Past 12 Hours) Vital Signs Temp Pulse Pulse Pulse Resp BP BP 07/20/21 09:30 75 149/52 H 07/20/21 09:00 76 186/80 H 07/20/21 08:46 36.5 C 78 07/20/21 07:46 36.4 C L 78 16 178/71 H Pulse Ox 07/20/21 09:30 07/20/21 09:00 07/20/21 08:46 07/20/21 07:46 92 Laboratory Results Laboratory Tests 07/20/21 07/20/21 06:10 06:10 WBC 10.63 Hgb 9.8 L Hct 31.5 L Plt Count 282 Sodium 133 L Potassium 4.6 Chloride 100 Carbon Dioxide 25 BUN 59 H D Creatinine 3.49 H D Glucose 88 PG Care Time/CCT Total # of Minutes Spent Total Time Spent with Patient: Total time spent is greater than 50% in coordination of care (as documented) at patient's floor/unit and/or counseling patient: Coding Level of Care Code 09991 Subseq Hosp Care Lvl 3 Diagnoses End-stage renal disease on hemodialysis N18.6; Z99.2 Anemia N18.6; D63.1; Z99.2 Anemia type: due to chronic kidney disease Chronic kidney disease stage: on chronic dialysis Infection of right knee M00.9 (1) Anemia Anemia type: due to chronic kidney disease Chronic kidney disease stage: on chronic dialysis Qualified Code(s): N18.6 - End stage renal disease; D63.1 - Anemia in chronic kidney disease; Z99.2 - Dependence on renal dialysis
[2021-07-20] MEDS: hydrALAZINE TAB 50 MG TAB PO SCH ×3 (13:19→21:16)
[2021-07-20] MEDS: amLODIPine BESYLATE 5 MG TAB PO SCH ×2 (13:20→21:15)
[2021-07-20] MEDS: ISOSORBIDE MONO EXTENDED REL 60 MG TABCR PO SCH (13:21)
[2021-07-20] MEDS: ATORVASTATIN 40 MG TAB PO SCH (21:14)
[2021-07-20] MEDS: INSULIN GLARGINE SOLOSTAR 100 UNITS/ML 3 ML PEN SQ SCH (21:16)
[2021-07-20] MEDS: ACETAMINOPHEN 500 MG TAB PO PRN (21:21)
[2021-07-21 06:18] LABS: Hematocrit (blood only) 32.2 % (37-47); Hemoglobin 9.8 g/dL (12.0-16.0); Mean Corpuscular Hemoglobin 27.5 pg (25-34); Mean Corpuscular Hgb Conc 30.4 g/dL (32-36); Mean Corpuscular Volume 90.4 fL (80-100); Mean Platelet Volume 9.1 fL (7.4-10.4); Platelet Count 305 K/uL (130-400); RDW Coefficient of Variation 16.4 % (11.5-14.5); RDW Standard Deviation 53.6 fL (36.4-46.3); Red Blood Count 3.56 M/uL (4.2-5.4); White Blood Count 8.59 K/uL (4.8-10.8)
[2021-07-21 06:49] LABS: BUN Creatinine Ratio 14.7 (10-20); Creatinine Clr Calc Pharmacy 18.9 ml/min; Est GFR (African American) 20.5 ml/min; Est GFR (Non-African American) 17.7 ml/min; Potassium 3.8 mmol/L (3.5-5.1)
[2021-07-21] MEDS: VENLAFAXINE HCL XR 150 MG CAPXR PO SCH (08:23)
[2021-07-21] MEDS: ASCORBIC ACID 500 MG TAB PO SCH (08:23)
[2021-07-21] MEDS: amLODIPine BESYLATE 5 MG TAB PO SCH ×2 (08:23→21:52)
[2021-07-21] MEDS: MULTIVITAMIN TAB PO SCH (08:23)
[2021-07-21] MEDS: hydrALAZINE TAB 50 MG TAB PO SCH ×3 (08:23→21:53)
[2021-07-21] MEDS: DOCUSATE SODIUM 100 MG CAP PO SCH ×2 (08:23→21:51)
[2021-07-21] MEDS: ASPIRIN 81 MG ECTAB PO SCH ×2 (08:23→21:53)
[2021-07-21] MEDS: ISOSORBIDE MONO EXTENDED REL 60 MG TABCR PO SCH (08:23)
[2021-07-21] MEDS: SENNA 8.6 MG TAB PO SCH (08:23)
[2021-07-21] MEDS: CHOLECALCIFEROL 1,000 UNITS 25 MCG TAB PO SCH ×2 (08:23→21:51)
[2021-07-21] MEDS: CALCIUM 600MG + VIT D 400 IU TAB PO SCH (08:23)
[2021-07-21] MEDS ORDERED: hydrALAZINE HCL 20 MG/ML VIAL IV PRN (08:25)
--- NOTE | 2021-07-21 08:27 | Hospitalist Progress Note ---
Date of Service July 21, 2021 Assessment & Plan (1) Bacteremia: Plan: Presented with R knee wound dehiscence s/p multiple surgeries and fever at HD Ortho consulted S/P Incision and drainage extremity right knee, extensive debridement right knee, removal of implant from right patella, application of wound vac.(Right) - with Bean Fritz on 07/07 * --> OR cx with Enterobacter cloacae which is also present on BCx; * repeat BCx with NGTD > 48 hours -- Previous Cx from knee with Enterococcus faecalis which is not currently growing S/p Right Above Knee Amputation(Right) - Heriberto Ly, on 07/09. EBL 100cc Completed Vancomycin from previous infection; intially on Cefepime on admission * Discussed with ID who completed consult to utilize Cipro to complete a 14 day total course (end date July 19) * --> Cipro d/c'd by Dr Ly 07/17 and switched to Bactrim BID x 1 month (prior blood cultures do show sensitivity to such) for abx prophylaxis --> 1 tablet daily dosed for renal function --> Discussed with Dr Spangler last evening given patient with ESRD on HD regarding Bactrim vs Cipro for prophylaxis, pref Cipro. Discussed with Dr Ly and placed back on Cipro --> he would like her to be on this monthly for abx prophylaxis --> Recommend given AFTER HD on days when patient has HD WBC currently wnl, 8.5k Hgb stable at 9.7 -- got Venofer 300mg and epo 10,000 on 07/18 HD on 07/18 for 3L (previously 2.1-2.3L) for pulm congestion. Rec'd continued use of incentive spirometer --> planning for [facility] when bed available, not until next week. Checked Hep B panel in anticipation as they will be able to do HD at [facility] Working with PT/OT Monitor labs in AM (2) Sepsis: Plan: 2nd to R knee infection; as above (3) Dehiscence of wound: Plan: *Postoperative infection of the internal right knee prosthesis Now s/p R AKA by Dr Ly on 07/09, abx as outlined above (4) Type 2 diabetes mellitus with insulin therapy: Plan: Had low BSG on 07/14, lantus reduced to 12u. Again low evening 07/17, Lantus held. BSGs improved/stable and continue current dose/monitor --> consider lower dose at d/c pending how sugars are running over the weekend (5) Anemia: Plan: Hemoglobin chronically low (baseline 8-9) managed by nephrology with periodic Epogen and IV iron Hgb monitored and has been stable and transfuse as necessary (6) End-stage renal disease on hemodialysis: Plan: Consult nephrology for inpatient hemodialysis management , MWF Aimed for 3L with HD for pulm congestion --> 3L removed 07/18, 2.5L 07/20 Appreciate continued assistance by nephrology (7) CAD (coronary artery disease): Plan: No history of stents Resumed ASA 81mg, but BID post-operatively by ortho No chest pain reported Continue atorvastatin, isosorbide (8) Depression: Plan: Feeling worse with her mood lately with being in the hospital and rehab so much; also has sustained a lot of loss of family members in the past years. Her spirits continue to be improved and she feels less anxious now that the surgery is complete; states she misses her cats as she hasn't been home much in the past several weeks due to hospitalizations/rehabs Mood stable currently, no issues (9) Dyslipidemia: Plan: Continue statin (10) Heart failure with mid-range ejection fraction: Plan: Last echocardiogram 10/2020 with mild LV dysfunction EF 45-50%, moderate aortic stenosis, moderate MR Managed with dialysis for volume ECHO repeated given +BCx --> LV systolic function normal. No regional wma. Mild concentric LVH. EF 60-65%. Severe valvular aortic stenosis. Mild MR. NO VALVULAR vegetation identified. Compared to October 2020, minor progression in aortic stenosis. No longer requiring supplemental oxygen at this time but still with volume overload on CXR/pulm exam as above Continuing HD to remover 2.5-3L IVF, last HD 07/20 for 2.5L Remains on RA, comfortable laying flat Nephrology working on new EDW given amputation (11) Hypertension: Plan: Variable; tends to run high but asymptomatic --> currently 194/64 (hydralazine available prn) but hasn't gotten her AM medications Continues on hydralazine, isosorbide, amlodipine --> consider further titrations for better control given chronically elevated Considering increase hydralazine to 75mg TID but will discuss with Nephro (12) Moderate calcific aortic stenosis: Plan: As above, moderate on last echocardiogram --> now SEVERE. DIuresis for volume overload as above, currently stable Plan: PT/OT - patient currently interested in rehab and awaiting referrals --> plans for [facility] when bed available Friday after HD Updated daughter at bedside 07/16, again afternoon 07/19 Admission and Anticipated Discharge Date Admission Date: July 06, 2021 Supervising Physician Co-Signing Physician Notes Attending Attestation - Chart reviewed in detail, care plan d/w PA Aissatou Mcnair. I agree w/ the tinajero components of her documentation. Miguel Angel Gaitan MD Subjective Patient evaluated this morning. Doing well. No pain currently, occasional phantom pains. Tylenol more than effective. No fever/chills, chest pain, shortness of breath. No headache, blurred vision, lightheadedness, dizziness or visual changes. BP high and getting medications shortly. SOme abdominal cramping but passing gas. No BM. Discussed suppository vs fleets and will order. Plans for [facility] on Friday after HD. Questions/concerns addressed at this time. Review of Systems Review of Systems: All systems reviewed & are unremarkable except as noted in HPI & below Physical Exam Physical Exam: General: WN/WN female sitting up in bed, looking out window, no acute distress, Eyes: anicteric, pupils equal and reactive Neck: trachea midline, +JVD Resp: CTAB diminished in R base, no wheezing/rales, on ROOM AIR CV: RRR, +3/6 systolic murmur, 1+ pulse on LLE, + L arm Fistula with bruit GI: +BS, soft, some palpable stool LLQ, slightly tender to palpation MSK: R AKA with sutures intact, covered with cap, no erythema/drainage, non- tender to palpation Psych: AOx3, pleasant and cooperative Neuro: answers questions appropriately, moving all extremities, follows commands Skin: scattered ecchymosis from lab draws Results & Data Results & Data ([facility]) Vital Signs (Past 12 Hours) Vital Signs Temp Pulse Resp BP Pulse Ox 07/21/21 08:03 36.7 C 89 18 194/64 H 91 07/20/21 22:51 37.1 C 84 18 166/66 H 93 Laboratory Results 07/21/21 07/21/21 07/20/21 Range/Units 05:47 05:47 20:31 WBC 8.59 (4.8-10.8) K/uL RBC 3.56 L (4.2-5.4) M/uL Hgb 9.8 L (12.0-16.0) g/dL Hct 32.2 L (37-47) % MCV 90.4 (80-100) fL MCH 27.5 (25-34) pg MCHC 30.4 L (32-36) g/dL RDW Std Deviation 53.6 H (36.4-46.3) fL RDW Coeff of Chris 16.4 H (11.5-14.5) % Plt Count 305 (130-400) K/uL MPV 9.1 (7.4-10.4) fL Immature Gran % (Auto) % Neut % (Auto) % Lymph % (Auto) % [place] % (Auto) % Eos % (Auto) % Baso % (Auto) % Neut # (Auto) (1.4-6.5) K/uL Lymph # (Auto) (1.2-3.4) K/uL [place] # (Auto) (0.11-0.59) K/uL Eos # (Auto) (0-0.5) K/uL Baso # (Auto) (0-0.2) K/uL Immature Gran # (Auto) (0.00-0.02) K/uL RBC Morphology Sodium 134 L (136-145) mmol/L Potassium 3.8 (3.5-5.1) mmol/L Chloride 99 (98-107) mmol/L Carbon Dioxide 27 (21-32) mmol/L Anion Gap 8 (3-11) BUN 37 H D (6-23) mg/dl Creatinine 2.51 H D (0.6-1.2) mg/dl Est Cr Clr Drug Dosing 18.9 ml/min Est GFR ( Amer) 20.5 ml/min Est GFR (Non-Af Amer) 17.7 ml/min BUN/Creatinine Ratio 14.7 (10-20) Glucose 116 H (70-99(Fasting)) mg/dl POC Glucose 201 H (70-99) mg/dl Calcium 10.0 (8.5-10.1) mg/dl Hep Bs Antigen (Neg) Hepatitis C Antibody (Neg) 07/20/21 07/20/21 07/20/21 Range/Units 17:20 13:15 06:10 WBC (4.8-10.8) K/uL RBC (4.2-5.4) M/uL Hgb (12.0-16.0) g/dL Hct (37-47) % MCV (80-100) fL MCH (25-34) pg MCHC (32-36) g/dL RDW Std Deviation (36.4-46.3) fL RDW Coeff of Chirs (11.5-14.5) % Plt Count (130-400) K/uL MPV (7.4-10.4) fL Immature Gran % (Auto) % Neut % (Auto) % Lymph % (Auto) % [place] % (Auto) % Eos % (Auto) % Baso % (Auto) % Neut # (Auto) (1.4-6.5) K/uL Lymph # (Auto) (1.2-3.4) K/uL [place] # (Auto) (0.11-0.59) K/uL Eos # (Auto) (0-0.5) K/uL Baso # (Auto) (0-0.2) K/uL Immature Gran # (Auto) (0.00-0.02) K/uL RBC Morphology Sodium 133 L (136-145) mmol/L Potassium 4.6 (3.5-5.1) mmol/L Chloride 100 (98-107) mmol/L Carbon Dioxide 25 (21-32) mmol/L Anion Gap 8 (3-11) BUN 59 H D (6-23) mg/dl Creatinine 3.49 H D (0.6-1.2) mg/dl Est Cr Clr Drug Dosing 13.6 ml/min Est GFR ( Amer) 13.8 ml/min Est GFR (Non-Af Amer) 11.9 ml/min BUN/Creatinine Ratio 16.9 (10-20) Glucose 88 (70-99(Fasting)) mg/dl POC Glucose 138 H 87 (70-99) mg/dl Calcium 9.5 (8.5-10.1) mg/dl Hep Bs Antigen (Neg) Hepatitis C Antibody (Neg) 07/20/21 07/19/21 Range/Units 06:10 06:06 WBC 10.63 (4.8-10.8) K/uL RBC 3.50 L (4.2-5.4) M/uL Hgb 9.8 L (12.0-16.0) g/dL Hct 31.5 L (37-47) % MCV 90.0 (80-100) fL MCH 28.0 (25-34) pg MCHC 31.1 L (32-36) g/dL RDW Std Deviation 53.7 H (36.4-46.3) fL RDW Coeff of Chris 16.6 H (11.5-14.5) % Plt Count 282 (130-400) K/uL MPV 9.3 (7.4-10.4) fL Immature Gran % (Auto) 0.9 % Neut % (Auto) 61.3 % Lymph % (Auto) 17.1 % [place] % (Auto) 15.1 % Eos % (Auto) 5.1 % Baso % (Auto) 0.5 % Neut # (Auto) 6.32 (1.4-6.5) K/uL Lymph # (Auto) 1.76 (1.2-3.4) K/uL [place] # (Auto) 1.55 H (0.11-0.59) K/uL Eos # (Auto) 0.52 H (0-0.5) K/uL Baso # (Auto) 0.05 (0-0.2) K/uL Immature Gran # (Auto) 0.09 H (0.00-0.02) K/uL RBC Morphology Unremarkable Sodium (136-145) mmol/L Potassium (3.5-5.1) mmol/L Chloride (98-107) mmol/L Carbon Dioxide (21-32) mmol/L Anion Gap (3-11) BUN (6-23) mg/dl Creatinine (0.6-1.2) mg/dl Est Cr Clr Drug Dosing ml/min Est GFR ( Amer) ml/min Est GFR (Non-Af Amer) ml/min BUN/Creatinine Ratio (10-20) Glucose (70-99(Fasting)) mg/dl POC Glucose (70-99) mg/dl Calcium (8.5-10.1) mg/dl Hep Bs Antigen Neg (Neg) Hepatitis C Antibody Neg (Neg) PG Care Time/CCT Total # of Minutes Spent Total Time Spent with Patient: Total time spent is greater than 50% in coordination of care (as documented) at patient's floor/unit and/or counseling patient: Coding Level of Care Code 16905 Subseq Hosp Care Lvl 2 Diagnoses Bacteremia R78.81 Sepsis A41.9 Sepsis acute organ dysfunction status: unspecified Sepsis type: sepsis due to unspecified organism Dehiscence of wound T81.30XA Type 2 diabetes mellitus with insulin therapy E11.9; Z79.4 Anemia N18.6; D63.1; Z99.2 Anemia type: due to chronic kidney disease Chronic kidney disease stage: on chronic dialysis End-stage renal disease on hemodialysis N18.6; Z99.2 CAD (coronary artery disease) I25.10 Depression F32.9 Dyslipidemia E78.5 Heart failure with mid-range ejection fraction I50.9 Hypertension I10 Hypertension type: unspecified Moderate calcific aortic stenosis I35.0 (1) Anemia Anemia type: due to chronic kidney disease Chronic kidney disease stage: on chronic dialysis Qualified Code(s): N18.6 - End stage renal disease; D63.1 - Anemia in chronic kidney disease; Z99.2 - Dependence on renal dialysis (2) Sepsis Sepsis acute organ dysfunction status: unspecified Sepsis type: sepsis due to unspecified organism Qualified Code(s): A41.9 - Sepsis, unspecified organism (3) Hypertension Hypertension type: unspecified Qualified Code(s): I10 - Essential (primary) hypertension
[2021-07-21] MEDS ORDERED: SOD PHOSPHATE/SOD BIPHOSPHATE ENEMA 132 ML BTL PR STA (09:06)
[2021-07-21] MEDS: CIPROFLOXACIN 500 MG TAB PO SCH (09:25)
[2021-07-21] MEDS: INSULIN ASPART PER UNIT SC SCH ×4 (09:25→22:05)
--- NOTE | 2021-07-21 11:55 | Nephrology Progress Note ---
Date of Service July 21, 2021 Assessment & Plan (1) End-stage renal disease on hemodialysis: Plan: ESRD on HD MWF, s/p AKA, now waiting on rehab DC. Had HD yesterday. --monitor over the weekend, electrolyte acceptable, keep on schedule fro MWF HD Admission and Anticipated Discharge Date Admission Date: July 06, 2021 Subjective Pt was not seen in person, clinical data, labs, vitals reviewed, discussed with primary team. Overall clinically stable, no acute overnight events. BP elevated, electrolytes acceptable, had HD yesterday. Results & Data ([facility]) Vital Signs (Past 12 Hours) Vital Signs Temp Pulse Resp BP Pulse Ox 07/21/21 08:03 36.7 C 89 18 194/64 H 91 PG Care Time/CCT Total # of Minutes Spent Total Time Spent with Patient: Total time spent is greater than 50% in coordination of care (as documented) at patient's floor/unit and/or counseling patient: Coding Level of Care Code 44861 Subseq Hosp Care Lvl 2 Diagnoses End-stage renal disease on hemodialysis N18.6; Z99.2
[2021-07-21] MEDS ORDERED: SOD PHOSPHATE/SOD BIPHOSPHATE ENEMA 132 ML BTL PR ONE (13:45)
[2021-07-21] MEDS: ATORVASTATIN 40 MG TAB PO SCH (21:52)
[2021-07-21] MEDS: INSULIN GLARGINE SOLOSTAR 100 UNITS/ML 3 ML PEN SQ SCH (21:54)
[2021-07-21] MEDS: ACETAMINOPHEN 500 MG TAB PO PRN (21:54)
--- NOTE | 2021-07-22 08:11 | Hospitalist Progress Note ---
Date of Service July 22, 2021 Assessment & Plan (1) Bacteremia: Plan: Presented with R knee wound dehiscence s/p multiple surgeries and fever at HD Ortho consulted S/P Incision and drainage extremity right knee, extensive debridement right knee, removal of implant from right patella, application of wound vac.(Right) - with Bean Fritz on 07/07 * OR cx with Enterobacter cloacae, BCx with SAME (Previous Cx from knee with Enterococcus faecalis which is not currently growing) * Repeat BCx with NGTD > 48 hours S/p Right Above Knee Amputation(Right) - Heriberto Ly, on 07/09. EBL 100cc Completed Vancomycin from previous infection; initially on Cefepime on admission * Consulted ID--> Cipro to complete a 14 day total course (completed 07/19) --> to continue x 1 month for abx proph per Dr Ly. Would rec to be given after HD WBC currently wnl, 9.4k, afebrile O2 88-89% but not documented overnight and put on O2. CXR with improvement in loculated fluid. * Does endorse snoring, will check overnight pulse ox to see about some degree underlying sleep apnea, which if tx may assist with her BP Encourage IS Hgb stable, improved to 10.1 PT/OT evals --> SNF. TO undergo HD tomorrow, then discharge to [facility] (2) Sepsis: Plan: 2nd to R knee infection; as above (3) Dehiscence of wound: Plan: *Postoperative infection of the internal right knee prosthesis Now s/p R AKA by Dr Ly on 07/09, abx as outlined above (4) Type 2 diabetes mellitus with insulin therapy: Plan: Had low BSG on 07/14, lantus reduced to 12u. BSGs improved/stable and continue current dose/monitor --> consider lower dose at d/c given stable BSGs on current dose (5) Anemia: Plan: Hemoglobin chronically low (baseline 8-9) managed by nephrology with periodic Epogen and IV iron Hgb stable and 10.1 on AM labs -- has gotten venofer, EPO, 3u PRBC while inpatient jeanie-operatively (6) End-stage renal disease on hemodialysis: Plan: Consult nephrology for inpatient hemodialysis management , MWF Aimed for 3L with HD for pulm congestion --> 3L removed 07/18, 2.5L 07/20 Appreciate continued assistance by nephrology To undergo HD tomorrow, discharge after. (7) CAD (coronary artery disease): Plan: No history of stents Resumed ASA 81mg, but BID post-operatively by ortho No chest pain reported Continue atorvastatin, isosorbide (8) Depression: Plan: Feeling worse with her mood lately with being in the hospital and rehab so much; also has sustained a lot of loss of family members in the past years. Her spirits continue to be improved and she feels less anxious now that the surgery is complete; states she misses her cats as she hasn't been home much in the past several weeks due to hospitalizations/rehabs Mood stable currently, no issues (9) Dyslipidemia: Plan: Continue statin (10) Heart failure with mid-range ejection fraction: Plan: Last echocardiogram 10/2020 with mild LV dysfunction EF 45-50%, moderate aortic stenosis, moderate MR Managed with dialysis for volume ECHO repeated given +BCx --> LV systolic function normal. No regional wma. Mild concentric LVH. EF 60-65%. Severe valvular aortic stenosis. Mild MR. NO VALVULAR vegetation identified. Compared to October 2020, minor progression in aortic stenosis. No longer requiring supplemental oxygen at this time but still with volume overload on CXR/pulm exam as above Continuing HD to remover 2.5-3L IVF, last HD 07/20 for 2.5L Remains on RA, comfortable laying flat but drops overnight. Overnight pulse ox ordered for [facility] Nephrology working on new EDW given amputation (11) Hypertension: Plan: Variable; tends to run high but asymptomatic --> currently 187/69 in AM prior to medications given Continues on hydralazine, isosorbide, amlodipine --> consider further titrations for better control given chronically elevated Considering increase hydralazine to 75mg TID but defer to nephro in AM, wide pulse pressures likely due to as well but volume status appeared acceptable (12) Moderate calcific aortic stenosis: Plan: As above, moderate on last echocardiogram --> now SEVERE. Diuresis for volume overload as above, currently stable f/u with Cardiology as outpt Plan: PT/OT rec'd SNF --> plans for [facility] when bed available Friday after HD F/u ortho after discharge about timing for prosthesis Admission and Anticipated Discharge Date Admission Date: July 06, 2021 Supervising Physician Co-Signing Physician Notes PA Supervision Note: I did not personally see or examine the patient today, but I verified all tinajero points of DELL Mcnair's assessment and plan with the following exceptions/additions: None Subjective Patient evaluated this morning. Doing well. Pain controlled, none reported. Moved her bowels yesterday. Was on O2 overnight and SpO2 to the upper 80s. Discussed could have some PREM, she does endorse waking her up snoring. No shortness of breath/cough or sputum production. Discussed incentive spirometer, none in room. Obtained by RN and I assisted to ensure she was using properly and encouraged continued use. Excited about getting out of here tomorrow to start rehab after dialysis. No fever, chills, chest pain, abdominal pain, nausea, vomiting at this time. Review of Systems Review of Systems: All systems reviewed & are unremarkable except as noted in HPI & below Physical Exam Physical Exam: General: WN/WN female sitting up in bed, looking out window, no acute distress, laughing with nursing at bedside Eyes: anicteric, pupils equal and reactive Neck: trachea midline, +JVD Resp: CTAB diminished in R base (improved), no wheezing/rales, on ROOM AIR SpO2 95% CV: RRR, +3/6 systolic murmur, 1+ pulse on LLE, + L arm Fistula with bruit GI: +BS, soft, non-tender MSK: R AKA with sutures intact, some crusting/redness to medial sutures but non- tender/no drainage, 4x4 covering with cap, no drainage on dressing observed Psych: AOx3, pleasant and cooperative Neuro: answers questions appropriately, moving all extremities, follows commands Skin: scattered ecchymosis from lab draws Results & Data Results & Data ([facility]) Vital Signs (Past 12 Hours) Vital Signs Temp Pulse Resp BP Pulse Ox 07/21/21 21:59 37.1 C 83 16 177/58 H 96 Laboratory Results 07/22/21 07/22/21 07/22/21 Range/Units 12:05 08:28 08:28 WBC 9.49 (4.8-10.8) K/uL RBC 3.57 L (4.2-5.4) M/uL Hgb 10.1 L (12.0-16.0) g/dL Hct 31.7 L (37-47) % MCV 88.8 (80-100) fL MCH 28.3 (25-34) pg MCHC 31.9 L (32-36) g/dL RDW Std Deviation 52.3 H (36.4-46.3) fL RDW Coeff of Chris 16.3 H (11.5-14.5) % Plt Count 327 (130-400) K/uL MPV 8.7 (7.4-10.4) fL Sodium 132 L (136-145) mmol/L Potassium 4.0 (3.5-5.1) mmol/L Chloride 97 L (98-107) mmol/L Carbon Dioxide 24 (21-32) mmol/L Anion Gap 11 (3-11) BUN 59 H D (6-23) mg/dl Creatinine 3.55 H D (0.6-1.2) mg/dl Est Cr Clr Drug Dosing 13.4 ml/min Est GFR ( Amer) 13.5 ml/min Est GFR (Non-Af Amer) 11.7 ml/min BUN/Creatinine Ratio 16.6 (10-20) Glucose 150 H (70-99(Fasting)) mg/dl POC Glucose 152 H (70-99) mg/dl Calcium 9.7 (8.5-10.1) mg/dl 07/22/21 07/21/21 07/21/21 Range/Units 08:17 20:32 17:11 WBC (4.8-10.8) K/uL RBC (4.2-5.4) M/uL Hgb (12.0-16.0) g/dL Hct (37-47) % MCV (80-100) fL MCH (25-34) pg MCHC (32-36) g/dL RDW Std Deviation (36.4-46.3) fL RDW Coeff of Chris (11.5-14.5) % Plt Count (130-400) K/uL MPV (7.4-10.4) fL Sodium (136-145) mmol/L Potassium (3.5-5.1) mmol/L Chloride (98-107) mmol/L Carbon Dioxide (21-32) mmol/L Anion Gap (3-11) BUN (6-23) mg/dl Creatinine (0.6-1.2) mg/dl Est Cr Clr Drug Dosing ml/min Est GFR ( Amer) ml/min Est GFR (Non-Af Amer) ml/min BUN/Creatinine Ratio (10-20) Glucose (70-99(Fasting)) mg/dl POC Glucose 139 H 148 H 132 H (70-99) mg/dl Calcium (8.5-10.1) mg/dl 07/21/21 Range/Units 12:31 WBC (4.8-10.8) K/uL RBC (4.2-5.4) M/uL Hgb (12.0-16.0) g/dL Hct (37-47) % MCV (80-100) fL MCH (25-34) pg MCHC (32-36) g/dL RDW Std Deviation (36.4-46.3) fL RDW Coeff of Chris (11.5-14.5) % Plt Count (130-400) K/uL MPV (7.4-10.4) fL Sodium (136-145) mmol/L Potassium (3.5-5.1) mmol/L Chloride (98-107) mmol/L Carbon Dioxide (21-32) mmol/L Anion Gap (3-11) BUN (6-23) mg/dl Creatinine (0.6-1.2) mg/dl Est Cr Clr Drug Dosing ml/min Est GFR ( Amer) ml/min Est GFR (Non-Af Amer) ml/min BUN/Creatinine Ratio (10-20) Glucose (70-99(Fasting)) mg/dl POC Glucose 146 H (70-99) mg/dl Calcium (8.5-10.1) mg/dl Diagnostic Findings Chest X-Ray 07/22/21 08:10 XR chest 2V PA/lateral HISTORY: 80 years-old Female f/u effusion follow-up study in a patient with pleural effusions COMPARISON: Chest radiograph 07/18/2019. TECHNIQUE: Portable AP view of the chest FINDINGS: Cardiac silhouette is enlarged. Pulmonary edema with persistent bibasilar consolidation and layering pleural effusions which have mildly decreased in size with a decreased amount of lateral loculation. No pneumothorax. Degenerative changes of the shoulders and spine. IMPRESSION: 1. Cardiomegaly with pulmonary edema. 2. Moderate pleural effusions with decreased amount of loculation compared to the prior study. 3. Bibasilar predominant consolidation suggestive of atelectasis versus pneumonia. ACT 112: Negative or not required by law. The above report was generated using voice recognition software. It may contain grammatical, syntax or spelling errors. Electronically signed by: All Osullivan M.D. 07/22/2021 10:20 AM PG Care Time/CCT Total # of Minutes Spent Total Time Spent with Patient: Total time spent is greater than 50% in coordination of care (as documented) at patient's floor/unit and/or counseling patient: Coding Level of Care Code 52918 Subseq Hosp Care Lvl 2 Diagnoses Bacteremia R78.81 Sepsis A41.9 Sepsis acute organ dysfunction status: unspecified Sepsis type: sepsis due to unspecified organism Dehiscence of wound T81.30XA Type 2 diabetes mellitus with insulin therapy E11.9; Z79.4 Anemia N18.6; D63.1; Z99.2 Anemia type: due to chronic kidney disease Chronic kidney disease stage: on chronic dialysis End-stage renal disease on hemodialysis N18.6; Z99.2 CAD (coronary artery disease) I25.10 Depression F32.9 Dyslipidemia E78.5 Heart failure with mid-range ejection fraction I50.9 Hypertension I10 Hypertension type: unspecified Moderate calcific aortic stenosis I35.0 (1) Anemia Anemia type: due to chronic kidney disease Chronic kidney disease stage: on chronic dialysis Qualified Code(s): N18.6 - End stage renal disease; D63.1 - Anemia in chronic kidney disease; Z99.2 - Dependence on renal dialysis (2) Sepsis Sepsis acute organ dysfunction status: unspecified Sepsis type: sepsis due to unspecified organism Qualified Code(s): A41.9 - Sepsis, unspecified organism (3) Hypertension Hypertension type: unspecified Qualified Code(s): I10 - Essential (primary) hypertension
[2021-07-22] MEDS: SENNA 8.6 MG TAB PO SCH (08:44)
[2021-07-22] MEDS: DOCUSATE SODIUM 100 MG CAP PO SCH ×2 (08:44→20:37)
[2021-07-22 08:46] LABS: Hematocrit (blood only) 31.7 % (37-47); Hemoglobin 10.1 g/dL (12.0-16.0); Mean Corpuscular Hemoglobin 28.3 pg (25-34); Mean Corpuscular Hgb Conc 31.9 g/dL (32-36); Mean Corpuscular Volume 88.8 fL (80-100); Mean Platelet Volume 8.7 fL (7.4-10.4); Platelet Count 327 K/uL (130-400); RDW Coefficient of Variation 16.3 % (11.5-14.5); RDW Standard Deviation 52.3 fL (36.4-46.3); Red Blood Count 3.57 M/uL (4.2-5.4); White Blood Count 9.49 K/uL (4.8-10.8)
[2021-07-22] MEDS: CALCIUM 600MG + VIT D 400 IU TAB PO SCH (08:46)
[2021-07-22] MEDS: amLODIPine BESYLATE 5 MG TAB PO SCH ×2 (08:46→20:38)
[2021-07-22] MEDS: CHOLECALCIFEROL 1,000 UNITS 25 MCG TAB PO SCH ×2 (08:46→20:37)
[2021-07-22] MEDS: VENLAFAXINE HCL XR 150 MG CAPXR PO SCH (08:46)
[2021-07-22] MEDS: ISOSORBIDE MONO EXTENDED REL 60 MG TABCR PO SCH (08:46)
[2021-07-22] MEDS: ASCORBIC ACID 500 MG TAB PO SCH (08:46)
[2021-07-22] MEDS: hydrALAZINE TAB 50 MG TAB PO SCH ×3 (08:46→20:38)
[2021-07-22] MEDS: CIPROFLOXACIN 500 MG TAB PO SCH (08:46)
[2021-07-22] MEDS: ASPIRIN 81 MG ECTAB PO SCH ×2 (08:46→20:39)
[2021-07-22] MEDS: MULTIVITAMIN TAB PO SCH (08:46)
[2021-07-22] MEDS: INSULIN ASPART PER UNIT SC SCH ×4 (09:01→20:42)
[2021-07-22 09:05] LABS: BUN Creatinine Ratio 16.6 (10-20); Calcium 9.7 mg/dl (8.5-10.1); Creatinine Clr Calc Pharmacy 13.4 ml/min; Est GFR (African American) 13.5 ml/min; Est GFR (Non-African American) 11.7 ml/min
--- NOTE | 2021-07-22 10:21 | XRay Report ---
XR chest 2V PA/lateral HISTORY: 80 years-old Female f/u effusion follow-up study in a patient with pleural effusions COMPARISON: Chest radiograph 07/18/2019. TECHNIQUE: Portable AP view of the chest FINDINGS: Cardiac silhouette is enlarged. Pulmonary edema with persistent bibasilar consolidation and layering pleural effusions which have mildly decreased in size with a decreased amount of lateral loculation. No pneumothorax. Degenerative changes of the shoulders and spine. IMPRESSION: 1. Cardiomegaly with pulmonary edema. 2. Moderate pleural effusions with decreased amount of loculation compared to the prior study. 3. Bibasilar predominant consolidation suggestive of atelectasis versus pneumonia. ACT 112: Negative or not required by law. The above report was generated using voice recognition software. It may contain grammatical, syntax o r spelling errors. Electronically signed by: All Osullivan M.D. 07/22/2021 10:20 AM
--- NOTE | 2021-07-22 12:43 | Nephrology Progress Note ---
Date of Service July 22, 2021 Assessment & Plan (1) End-stage renal disease on hemodialysis: (2) Pleural effusion on right: (3) Anemia: (4) Hypertension: Plan: ESRD on HD MWF, s/p AKA, now waiting on rehab DC. Had HD Friday. CXR today showed improved rt pleural effusion. --overall doing well, electrolyte acceptable, keep on schedule for HD on Friday am and possible DC to rehab in afternoon. Admission and Anticipated Discharge Date Admission Date: July 06, 2021 Jason Dale and was seen and examined this morning. Overall she is feeling well, looking forward to get discharged to rehab have. Had dialysis Friday, electrolyte, volume status acceptable. Blood pressure remained elevated. Review of Systems Review of Systems: Detailed review of system was otherwise unremarkable. Physical Exam Constitutional: WD/WN, vitals as above no acute distress Eyes: + anicteric sclerae Respiratory: no respiratory distress Auscultation: lungs clear to auscultation bilaterally Cardiovascular: Rate/Rhythm: regular rate and regular rhythm Heart Sounds: normal S1 and normal S2 Extremities: no edema Musculoskeletal: Rt AKA, healed stump Skin: no rashes Neurologic: no focal motor deficits and not confused Psychiatric: Orientation: alert and oriented x 3 Results & Data ([facility]) Vital Signs (Past 12 Hours) Vital Signs Temp Pulse Resp BP Pulse Ox 07/22/21 08:15 36.3 C L 79 18 187/69 H 95 PG Care Time/CCT Total # of Minutes Spent Total Time Spent with Patient: Total time spent is greater than 50% in coordination of care (as documented) at patient's floor/unit and/or counseling patient: Coding Level of Care Code 99242 Subseq Hosp Care Lvl 2 Diagnoses End-stage renal disease on hemodialysis N18.6; Z99.2 Pleural effusion on right J90 Anemia N18.6; D63.1; Z99.2 Anemia type: due to chronic kidney disease Chronic kidney disease stage: on chronic dialysis Hypertension I10 Hypertension type: unspecified (1) Anemia Anemia type: due to chronic kidney disease Chronic kidney disease stage: on chronic dialysis Qualified Code(s): N18.6 - End stage renal disease; D63.1 - Anemia in chronic kidney disease; Z99.2 - Dependence on renal dialysis (2) Hypertension Hypertension type: unspecified Qualified Code(s): I10 - Essential (primary) hypertension
[2021-07-22] MEDS: ATORVASTATIN 40 MG TAB PO SCH (20:38)
[2021-07-22] MEDS: INSULIN GLARGINE SOLOSTAR 100 UNITS/ML 3 ML PEN SQ SCH (20:40)
[2021-07-22] MEDS: ACETAMINOPHEN 500 MG TAB PO PRN (23:11)
[2021-07-23] MEDS: hydrALAZINE TAB 50 MG TAB PO SCH ×2 (07:48→13:57)
[2021-07-23] MEDS: amLODIPine BESYLATE 5 MG TAB PO SCH (07:48)
[2021-07-23] MEDS: SENNA 8.6 MG TAB PO SCH (07:48)
[2021-07-23] MEDS: CIPROFLOXACIN 500 MG TAB PO SCH (07:49)
[2021-07-23] MEDS: ASCORBIC ACID 500 MG TAB PO SCH (07:49)
[2021-07-23] MEDS: CALCIUM 600MG + VIT D 400 IU TAB PO SCH (07:49)
[2021-07-23] MEDS: DOCUSATE SODIUM 100 MG CAP PO SCH (07:50)
[2021-07-23] MEDS: MULTIVITAMIN TAB PO SCH (07:50)
[2021-07-23] MEDS: VENLAFAXINE HCL XR 150 MG CAPXR PO SCH (07:50)
[2021-07-23] MEDS: ISOSORBIDE MONO EXTENDED REL 60 MG TABCR PO SCH (07:50)
[2021-07-23] MEDS: CHOLECALCIFEROL 1,000 UNITS 25 MCG TAB PO SCH (07:51)
[2021-07-23] MEDS: ASPIRIN 81 MG ECTAB PO SCH (07:51)
[2021-07-23] MEDS: INSULIN ASPART PER UNIT SC SCH ×2 (08:15→14:11)
--- NOTE | 2021-07-23 12:30 | Nephrology Progress Note ---
Date of Service July 23, 2021 Assessment & Plan (1) End-stage renal disease on hemodialysis: (2) Pleural effusion on right: (3) Anemia: (4) Hypertension: Plan: ESRD on HD MWF, s/p AKA, now waiting on rehab DC. Had HD Friday. CXR today showed improved rt pleural effusion. --tolerating HD, continue to challenge UF as tolerated, OK to DC to rehab when bed available. Admission and Anticipated Discharge Date Admission Date: July 06, 2021 Jason Masters was seen and examined this morning during HD. Overall she is feeling well,tolerating HD, looking forward to get discharged to rehab. Volume status acceptable. Blood pressure remained elevated. Review of Systems Review of Systems: Detailed review of system was otherwise unremarkable. Physical Exam Constitutional: WD/WN, vitals as above no acute distress Eyes: + anicteric sclerae Respiratory: no respiratory distress Auscultation: lungs clear to auscultation bilaterally Cardiovascular: Rate/Rhythm: regular rate and regular rhythm Heart Sounds: normal S1 and normal S2 Extremities: no edema Skin: no rashes Neurologic: no focal motor deficits Psychiatric: Orientation: alert and oriented x 3 Results & Data ([facility]) Vital Signs (Past 12 Hours) Vital Signs Temp Pulse Pulse Pulse Pulse Resp BP 07/23/21 12:00 78 147/62 H 07/23/21 11:40 75 148/67 H 07/23/21 11:20 78 122/77 07/23/21 11:00 72 158/65 H 07/23/21 10:40 76 143/59 H 07/23/21 10:20 72 152/72 H 07/23/21 10:00 76 157/60 H 07/23/21 09:40 76 154/59 H 07/23/21 09:33 78 173/70 H 07/23/21 09:08 36.4 C L 81 07/23/21 07:30 36.6 C 76 14 07/23/21 03:31 69 BP Pulse Ox Pulse Ox 07/23/21 12:00 07/23/21 11:40 07/23/21 11:20 07/23/21 11:00 07/23/21 10:40 07/23/21 10:20 07/23/21 10:00 07/23/21 09:40 07/23/21 09:33 07/23/21 09:08 07/23/21 07:30 140/68 94 07/23/21 03:31 97 PG Care Time/CCT Total # of Minutes Spent Total Time Spent with Patient: Total time spent is greater than 50% in coordination of care (as documented) at patient's floor/unit and/or counseling patient: Coding Level of Care Code 60693 Subseq Hosp Care Lvl 2 Diagnoses End-stage renal disease on hemodialysis N18.6; Z99.2 Pleural effusion on right J90 Anemia N18.6; D63.1; Z99.2 Anemia type: due to chronic kidney disease Chronic kidney disease stage: on chronic dialysis Hypertension I10 Hypertension type: unspecified (1) Anemia Anemia type: due to chronic kidney disease Chronic kidney disease stage: on chronic dialysis Qualified Code(s): N18.6 - End stage renal disease; D63.1 - Anemia in chronic kidney disease; Z99.2 - Dependence on renal dialysis (2) Hypertension Hypertension type: unspecified Qualified Code(s): I10 - Essential (primary) hypertension
--- NOTE | 2021-07-23 15:04 | Discharge Summary ---
Date of Service July 23, 2021 Admission HPI Per Admitting Provider This patient is a 80-year-old female known to me from previous hospitalizations with ESRD on HD, CAD, HTN, heart failure with midrange EF, DM 2, and depression, who has had multiple recent hospitalizations for postoperative knee infections that continued to dehisce. She was noted to have rigors at dialysis today and did receive a dose of vancomycin there as she has been on vancomycin for over 1 month now. She was brought to the ER for further evaluation and was found to have dehiscence and purulent drainage of her wound again. In the ER, she was not febrile and her vital signs were stable. Of note, she did take Tylenol prior to arrival. Her laboratory work-up was fairly unremarkable other than her chronic anemia, chronic kidney disease, but her ESR was elevated at 88 and CRP elevated at 31. She will be admitted for orthopedic evaluation for wound washout and continued IV antibiotics. She was given a dose of cefepime as well in the ER given history of Pseudomonas in the urine. This is in addition to the IV vancomycin she received with dialysis today. Principal Diagnosis R Knee Wound Dehiscence and Recurrent Infection; Bacteremia s/p Right AKA Discharge Exam Constitutional: WD/WN Eyes: anicteric ENMT: Neck: trachea midline, no JVD Respiratory: normal respiratory effort, lungs clear to auscultation but diminished at bases Cardiovascular: Rate/Rhythm: regular rate and regular rhythm Heart Sounds: + murmur (3/6 IWONA at RUSB) Vessels: dorsalis pedis pulses present (1+ bilaterally on L) Extremities: no edema Chest (Breasts): Chest: normal inspection of chest Gastrointestinal (Abdomen): normal bowel sounds, soft, nontender Musculoskeletal: Extremities: no cyanosis and no clubbing; R AKA Neurologic: moves all extremities including RLE stump; no focal motor deficits Psychiatric: alert,oriented x 3; in good spirits Lymphatic: Skin: no lymphedema Discharge Data Allergies Allergy/AdvReac Type Severity Reaction Status Date / Time codeine AdvReac Mild DOES NOT Verified 07/06/21 20:37 LIKE THE WAY IT MAKES HER FEEL. Consultations 07/10/21 17:52 Consult Infectious Diseases Routine Procedures Performed Operation Date: 07/07/21 08:45 Actual Procedures p Incision and drainage extremity right knee, extensive debridement right knee, removal of implant from right knee, application of wound vac.(Right) - Bean Fritz MD Operation Date: 07/09/21 11:30 Actual Procedures p Right Above Knee Amputation(Right) - Heriberto Ly DO Ordered Studies Chest X-Ray 07/06/21 18:02 XR chest 1V portable HISTORY: Fever COMPARISON: Chest 02/15/2021. FINDINGS: No pneumothorax. Small to moderate bilateral pleural effusions have increased in size. Bibasilar densities are also noted. The heart is enlarged. There is diffuse interstitial/vascular thickening consistent with mild pulmonary edema. Degenerative changes noted within the shoulders. IMPRESSION: 1. Cardiomegaly, pulmonary edema, and bilateral pleural effusions. This has progressed in the interval. 2. Bibasilar densities are nonspecific but favor atelectasis from the pleural effusions. A pneumonia could also have a similar appearance. ACT 112: Negative or not required by law. Electronically signed by: Carlito Eugene M.D. 07/06/2021 7:08 PM Knee X-Ray 07/06/21 19:32 XR knee RT 1 or 2V routine CLINICAL HISTORY: post-op rt knee infection COMPARISON STUDY: Right knee 06/12/2021 and 05/31/2021. FINDINGS: Overlying bandage obscures fine bony detail. There is an avulsion fracture at the inferior aspect of the patella which likely accounts for the patella josef. This demonstrates approximately 2.6 cm of distraction. Soft tissue swelling and a small amount of soft tissue gas inferior to the patella. Basilar calcifications are noted. Small knee effusion. Advanced degenerative changes again noted within the right knee. IMPRESSION: 1. Avulsion fracture at the inferior aspect of the patella demonstrating 2.6 cm of distraction. This is similar to the 06/12/2021 knee radiograph. 2. Soft tissue swelling and a small amount of soft tissue gas anteriorly. This could be due to a superficial wound or infection from a gas-forming organism. No gas identified within the joint space. 3. Advanced degenerative changes again noted within the right knee. ACT 112: Negative or not required by law. Electronically signed by: Carlito Eugene M.D. 07/06/2021 8:54 PM Knee X-Ray 07/07/21 09:00 FL knee RT 1 or 2V CLINICAL HISTORY: RIGHT KNEE HARDWARE REMOVAL COMPARISON STUDY: Right knee 07/06/2021. FLUOROSCOPY TIME: 6 seconds. FINDINGS: 5 fluoroscopic spot images of the right knee demonstrate removal of the patellar hardware. IMPRESSION: Fluoroscopic assistance provided for removal of the patellar hardware ACT 112: Negative or not required by law. Electronically signed by: Carlito Eugene M.D. 07/07/2021 3:40 PM Chest X-Ray 07/17/21 08:53 XR chest 1V portable HISTORY: 80 years-old Female leukocytosis, ?atelectasis acute shortness of breath COMPARISON: Chest radiograph 07/06/2021 TECHNIQUE: Portable AP view of the chest FINDINGS: Cardiac silhouette is enlarged. Pulmonary vascular congestion with interstitial coarsening. Bilaterally pleural effusions with loculation of the left pleural effusion. Bibasilar prominent consolidation. No pneumothorax. Suggestive loose bodies superior to the left humeral head redemonstrated. Degenerative changes of the shoulders and spine. IMPRESSION: 1. Cardiomegaly with pulmonary edema. 2. Bilateral pleural effusions with loculation on the left. 3. Bibasilar predominant consolidation suggestive of atelectasis versus pneumonia. ACT 112: Negative or not required by law. The above report was generated using voice recognition software. It may contain grammatical, syntax or spelling errors. Electronically signed by: All Osullivan M.D. 07/17/2021 9:48 AM Shoulder X-Ray 07/17/21 13:56 XR shoulder RT min 2V routine HISTORY: 80 years-old Female R shoulder pain s/p fall acute right shoulder pain status post fall COMPARISON: Chest radiograph 07/06/2021 TECHNIQUE: 3 views of the right shoulder FINDINGS: Demineralized appearance of the bones. Moderate glenohumeral osteoarthritis. Unchanged widening of the right AC joint with findings suggestive of prior distal clavicular resection. No acute fracture, dislocation or opaque foreign body. Decreased acromiohumeral interval suggestive of chronic rotator cuff tear. Right pleural effusion with right lung base opacity is again noted. Suggested pulmonary edema. IMPRESSION: No acute fracture or dislocation. ACT 112: Negative or not required by law. The above report was generated using voice recognition software. It may contain grammatical, syntax or spelling errors. Electronically signed by: All Osullivan M.D. 07/17/2021 3:16 PM Chest X-Ray 07/22/21 08:10 XR chest 2V PA/lateral HISTORY: 80 years-old Female f/u effusion follow-up study in a patient with pleural effusions COMPARISON: Chest radiograph 07/18/2019. TECHNIQUE: Portable AP view of the chest FINDINGS: Cardiac silhouette is enlarged. Pulmonary edema with persistent bibasilar consolidation and layering pleural effusions which have mildly decreased in size with a decreased amount of lateral loculation. No pneumothorax. Degenerative changes of the shoulders and spine. IMPRESSION: 1. Cardiomegaly with pulmonary edema. 2. Moderate pleural effusions with decreased amount of loculation compared to the prior study. 3. Bibasilar predominant consolidation suggestive of atelectasis versus pneumonia. ACT 112: Negative or not required by law. The above report was generated using voice recognition software. It may contain grammatical, syntax or spelling errors. Electronically signed by: All Osullivan M.D. 07/22/2021 10:20 AM Hospital Course (1) Bacteremia: Presented with R knee wound dehiscence s/p multiple surgeries and fever at HD Ortho consulted S/P Incision and drainage extremity right knee, extensive debridement right knee, removal of implant from right patella, application of wound vac.(Right) - with Bean Fritz on 07/07 * OR cx with Enterobacter cloacae, BCx with SAME (Previous Cx from knee with Enterococcus faecalis which is not currently growing) * Repeat BCx with NGTD > 48 hours S/p Right Above Knee Amputation(Right) - Heriberto Ly, on 07/09. EBL 100cc -- Sutures removed on 07/23 prior to D/C Completed Vancomycin from previous infection; initially on Cefepime on admission * Consulted ID--> Cipro to complete a 14 day total course (completed 07/19) --> to continue x 1 month for abx proph per Dr Ly. Would rec to be given after HD Plan for SNF at [facility] for rehab (2) Sepsis: 2nd to R knee infection; as above (3) Dehiscence of wound: - *Postoperative infection of the internal right knee prosthesis - Now S/P R AKA by Dr Ly on 07/09, abx as outlined above (4) Type 2 diabetes mellitus with insulin therapy: - A1c 6.2 - Recommended reduction of Lantus to 12 units and further outpatient recommendations once monitored at [facility] (5) Anemia: - Hemoglobin chronically low (baseline 8-9) managed by nephrology with periodic Epogen and IV iron - Hgb stable and 10.1 on AM labs -- has gotten venofer, EPO, 3u PRBC while inpatient jeanie-operatively (6) End-stage renal disease on hemodialysis: - Consult nephrology for inpatient hemodialysis management , MWF (7) CAD (coronary artery disease): - No history of stents - Resumed ASA 81mg, but BID post-operatively by ortho - Continue atorvastatin, isosorbide (8) Depression: - STABLE at this time (9) Dyslipidemia: - Continue statin (10) Heart failure with mid-range ejection fraction: - Last echocardiogram 10/2020 with mild LV dysfunction EF 45-50%, moderate aortic stenosis, moderate MR - Managed with dialysis for volume - ECHO repeated given +BCx --> LV systolic function normal. No regional wma. Mild concentric LVH. EF 60-65%. Severe valvular aortic stenosis. Mild MR. -- NO VALVULAR vegetation identified. Compared to October 2020, minor progression in aortic stenosis. (11) Hypertension: - Variable; tends to run high but asymptomatic --> currently 187/69 in AM prior to medications given Continues on hydralazine, isosorbide, amlodipine --> Hydralazine increased to 100 mg TID (12) Moderate calcific aortic stenosis: - As above, moderate on last echocardiogram --> now SEVERE. - Diuresis for volume overload as above, currently stable - F/U as outpatient with cardiology (13) Nocturnal hypoxia: - Patient does note H/O snoring - Overnight pulse ox study revealed 2 episodes of hypoxia (84% and 82%) but average 97% - Recommend formal sleep study post rehab to see if further needs (maybe nocturnal O2 is needed) Rehab at [facility] Sutures removed by Dr. Ly Total Time Total Time Spent Total Time Spent (In Minutes): Spent greater than 30 minutes preparing patient for discharge. This includes discussion with patient/family, assessment, intervention, medication reconciliation, and coordination of care. Discharge Plan Discharge Items Patient Disposition: Transfer Assisted Fac Reason For Visit: KNEE WOUND INFECTION Discharge Diagnosis: R Knee Infection S/P AKA Activity: Per Instructions section Non-emergency contact: Primary Care Provider and Surgeon Call non-emergency contact if: you have any medication questions, your symptoms worsen and you have a fever Follow-up/Referrals: David Lopez III, CRNP [Primary Care Provider] - Diet: Carb Consistent or DM2 and Dialysis Renal Diet Texture: Easy to Chew Addtl Attending Provider Instructions: Bacteremia/Sepsis: - Presented with R knee wound dehiscence s/p multiple surgeries and fever at HD -- Postoperative infection of the internal right knee prosthesis - Initially had incision and drainage on 07/07 prior to the AKA surgery on 07/09 - Cultures with Enterobacter cloacae (wound and blood) -- Previous admission she grew enterococcus faecalis - She completed Vancomycin for previous admission infection and now on Cipro -- Infectious Disease recommended to complete Cipro for treatment of Bacteremia which was 07/19. However, orthopedics would like to continue antibiot ics x 1 month for antibiotic prophylaxis for the stump. Continue until August [address] Ly would like to follow-up as below -- Recommend to dose Cipro AFTER dialysis on dialysis days - Pain has been almost non-existent. Utilizes Tylenol. Only took one opiate so will defer prescribing at this time Dehiscence of R Knee Wound now S/P Right AKA on 07/09: - Instructions below per orthopedics - Bowel regimen in place -- tends to use milk of mag with success; will send Colace Nocturnal Hypoxia: - She had an overnight pulse ox study that showed she desaturated 2 times (82% and 84%) however average was 97% - Could consider night time O2 but a formal sleep study would be recommended on discharge. Patient does endorse snoring and likely has a component of sleep apnea Diabetes: - A1c 6.2 which is fantastic - Currently using Lantus 12 units and a sliding scale and would recommend using this while at [facility] -- Range 100-140 mg/dL ; Correction factor 30 mg/dL/unit; carb ratio 9 g/unit - If you do not want the sliding scale can use her scheduled dosing she utilizes at home with the reduced Lantus and monitor sugars - May benefit from dosage reduction upon leaving there Anemia: Hemoglobin chronically low (baseline 8-9) managed by nephrology with periodic Epogen and IV iron Hgb stable and 10.1 on AM labs -- has brysonten sosa, EPO, 3u PRBC while inpatient jeanie-operatively End-stage renal disease on hemodialysis: - MWF CAD (coronary artery disease): - No history of stents - Resumed ASA 81mg, (BID post-operatively by ortho) x 4 weeks - Continue atorvastatin, isosorbide Dyslipidemia: - Continue statin Heart failure with mid-range ejection fraction: - Last echocardiogram 10/2020 with mild LV dysfunction EF 45-50%, moderate aortic stenosis, moderate MR -- Repeat echo - EF 60-65%; Severe valvular aortic stenosis; mild MR; no valvular vegetation - Managed with dialysis for volume Hypertension: - Variable; tends to run high but asymptomatic --> currently 150-187s/70 - Continues on hydralazine, isosorbide, amlodipine --> Hydralazine was increased to 100 mg TID 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 Take aspirin 81 mg twice a day for DVT prophylaxis. Activity Recommendations: No pressure on the right stump at this point. Dressing Care: You may leave the stump open to air if wound is not draining Showering: You may shower if the wound is not draining Follow-Up Visit: Follow-up with Dr. Ly in 4 weeks Please call the office to make an appointment for a time that works for you. Pending Studies at Discharge: No Stand-Alone Forms: My [facility] Skilled Items Patient informed of condition?: Yes DNR: No (Chest Compressions/Defib/ACLS meds (YES); Invasive Airway/ventilation (NO)) Discharge Level of Care: Skilled Communicable Disease: No Discharge Prognosis: Stable Lines: None Urinary Catheter: No Medications and DC Order Prescriptions: New ciprofloxacin HCl 500 mg Tablet 500 mg PO DAILY Qty: 27 RF: 0 acetaminophen [Tylenol Extra Strength] 500 mg Tablet 1,000 mg PO Q6H PRN (Reason: pain) 7 Days Qty: 56 RF: 0 docusate sodium 100 mg Capsule 100 mg PO BID 30 Days Qty: 60 RF: 0 Continued polyethylene glycol 3350 17 gram/dose powder 17 gm PO DAILY PRN (Reason: Constipation) RF: 0 venlafaxine 150 mg capsule,extended release 24hr 150 mg PO QAM RF: 0 ascorbic acid (vitamin C) 500 mg tablet 500 mg PO QAM RF: 0 isosorbide mononitrate 120 mg tablet extended release 24 hr 120 mg PO QAM Qty: 90 RF: 3 amlodipine 5 mg tablet 5 mg PO BID Qty: 180 RF: 3 insulin aspart U-100 [Novolog Flexpen U-100 Insulin] 100 unit/mL (3 mL) insulin pen 7 unit subcut TIDM Qty: 30 RF: 3 cholecalciferol (vitamin D3) 25 mcg (1,000 unit) capsule 50 mcg PO BID RF: 0 atorvastatin 80 mg tablet 80 mg PO HS Qty: 90 RF: 3 Calcium 600 with Vitamin D3 600 mg(1,500mg) -400 unit Tablet,Chewable 2 tab PO QAM RF: 0 multivitamin Capsule 1 cap PO DAILY RF: 0 aspirin [Adult Aspirin Regimen] 81 mg tablet,delayed release (DR/EC) 81 mg PO BID Qty: 84 RF: 0 PreserVision AREDS 14,320-226-200 ehth-eg-romi Capsule 1 cap PO BID RF: 0 Changed hydralazine 50 mg Tablet 100 mg PO TID Qty: 90 RF: 0 Lantus Solostar U-100 Insulin 100 unit/mL (3 mL) insulin pen 12 unit subcut QPM Qty: 0 RF: 0 Discontinued tramadol 50 mg tablet 50 mg PO Q6H PRN (Reason: pain) Qty: 60 RF: 0 vancomycin 1.25 gram recon soln See Rx Instructions .ROUTE .COMPLEX 42 Days Qty: 6 RF: 0 Discharge Orders: Discharge Order (Routine); Ordered 07/23/21 Ordered By: Marcia Sy Admission Data Admit Date/Time: 07/06/21 21:04 Attending Provider: Akila Ascencio Admit Provider: Akila Ascencio Primary Care Provider: David Lopez III Other Providers: Ken Jay ; Brittani Stanford ; Jarret Fuller I. ; Dami Lee II ; Helen Whitehead ; Jhonny Falcon ; Davon Gonzalez ; [facility] ; [facility] Other Interventions: Discharge Summary Assessment (RN) Last Done: 07/23/21 15:30 Supervising Physician Co-Signing Physician Notes PA Supervision Note: I personally saw and examined the patient. I verified all tinajero points and agree with DELL Sy with the following exceptions and/or additions: Patient feeling well, has no pain. Is eating drinking, moving her bowels without constipation or diarrhea. Ready for discharge to rehab O- Vitals reviewed Gen: AAOx3, NAD HEENT: Anicteric sclerae, EOMI CV: RRR 3/6 IWONA at RUSB nl S1S2 Pulm: CTAB no wcr Abd: +BS soft NT ND no masses or hernias Ext: Right lower extremity with AKA, wound intact with sutures, no drainage or erythema Skin: No rashes, warm/dry Neuro: Full strength throughout A/D-89-ciju-old female with history of ESRD on hemodialysis, DM 2, here with recurrent right knee infection, now status post right AKA. Also with Enterobacter bacteremia Doing well, stable for discharge to rehab on Cipro to complete a 1 month course Follow-up with orthopedics after discharge Plan outlined otherwise as above Coding Level of Care Code D/C DAY MANAGEMENT >30 MINS Diagnoses Bacteremia R78.81 Sepsis A41.9 Sepsis acute organ dysfunction status: unspecified Sepsis type: sepsis due to unspecified organism Dehiscence of wound T81.30XA Type 2 diabetes mellitus with insulin therapy E11.9; Z79.4 Anemia N18.6; D63.1; Z99.2 Anemia type: due to chronic kidney disease Chronic kidney disease stage: on chronic dialysis End-stage renal disease on hemodialysis N18.6; Z99.2 CAD (coronary artery disease) I25.10 Depression F32.9 Dyslipidemia E78.5 Heart failure with mid-range ejection fraction I50.9 Hypertension I10 Hypertension type: unspecified Moderate calcific aortic stenosis I35.0 Nocturnal hypoxia G47.34
== END 2021-07-23 17:08 | DRG 463 ==
LOC: ED 17:43 → SUATTDRO 21:04 → 3N 21:04 → 3W 07-08 20:04

== ENCOUNTER 2021-12-11 17:47 | Inpatient (IN) ==
[2021-12-11 18:42] LABS: Basophils # (auto) 0.05 K/uL (0-0.2); Basophils % (auto) 0.7 %; Eosinophils # (auto) 0.22 K/uL (0-0.50); Eosinophils % (auto) 3.2 %; Hemoglobin 10.9 g/dl (12.0-16.0); Immature Granulocytes # (auto) 0.03 K/uL (0.00-0.02); Immature Granulocytes % (auto) 0.4 %; Lymphocytes # (auto) 1.09 K/uL (1.2-3.4); Lymphocytes % (auto) 15.6 %; Mean Corpuscular Hemoglobin 25.5 pg (25.0-34.0); Mean Corpuscular Hgb Conc 29.5 g/dL (32.0-36.0); Mean Corpuscular Volume 86.4 fL (80.0-100.0); Mean Platelet Volume 9.1 fL (9.4-12.3); Monocytes # (auto) 0.75 K/uL (0.24-0.82); Monocytes % (auto) 10.8 %; Neutrophils # (auto) 4.83 K/uL (1.4-6.5); Neutrophils % (auto) 69.3 %; Platelet Count 252 K/uL (130-400); RDW Coefficient of Variation 20.1 % (11.5-14.5); RDW Standard Deviation 58.4 fL (36.4-46.3); Red Blood Count 4.28 M/uL (3.93-5.22); White Blood Count 6.97 K/ul (4.8-10.8)
[2021-12-11 18:54] LABS: INR 1.1 (0.9-1.1); Partial Thromboplastin Ratio 0.8; Partial Thromboplastin Time 22.8 Seconds (21.0-31.0); Prothrombin Time 11.4 Seconds (9.0-12.0)
[2021-12-11 19:12] LABS: Albumin Level 3.3 gm/dl (3.4-5.0); BUN Creatinine Ratio 14.2 (10-20); Bilirubin,Total 0.4 mg/dl (0.2-1.0); Calcium 9.6 mg/dl (8.5-10.1); Creatinine Clr Calc Pharmacy 14.1 ml/min; Est GFR (African American) 15.9 ml/min; Est GFR (Non-African American) 13.7 ml/min; Globulin 3.3 gm/dl (2.5-4.0); Magnesium 2.3 mg/dl (1.7-2.4); Potassium 4.3 mmol/L (3.5-5.1); Total Protein 6.6 gm/dl (6.0-8.3)
[2021-12-11 19:15] LABS: Troponin I High Sensitivity 29.6 pg/ml (0-14)
[2021-12-11 19:21] LABS: Polychromasia 1+
[2021-12-11 20:00] LABS: Influenza A virus by PCR Negative (Neg); Influenza B virus by PCR Negative (Neg); RSV by PCR Negative (Neg); SARS CoV2 RNA(COVID-19) InHosp NEGATIVE (Negative)
--- NOTE | 2021-12-11 20:57 | XRay Report ---
SINGLE VIEW CHEST CLINICAL HISTORY: Dyspnea. FINDINGS: An AP, portable, upright chest radiograph is compared to study dated 07/22/2021. The heart i s enlarged noting atherosclerotic calcification of the thoracic and. There is pulmonary vascular hernán estion. Bilateral airspace opacities are consistent with pulmonary edema. There are layering pleural effusions with dependent consolidation. No pneumothorax is seen. The skeletal structures are osteopen ic. The bony thorax is grossly intact. IMPRESSION: 1. Cardiomegaly with evidence of congestive failure. 2. Bilateral airspace opacities are consistent with pulmonary edema. Correlate clinically for evidenc e of a superimposed infectious/inflammatory pneumonitis. 3. Layering pleural effusions with dependent consolidation ACT 112: Negative or not required by law. Electronically signed by: Isai Baldwin M.D. 12/11/2021 8:55 PM
--- NOTE | 2021-12-11 22:54 | History & Physical Report ---
Date of Service December 11, 2021 Assessment & Plan (1) Hypoxia: Plan: This is a 81-year-old female with a past medical history of ESDR & type 2 diabetes on insulin who presented to the hospital due to shortness of breath. Patient has been given supplemental oxygen and diuresis has been ordered. Pulmonary edema with possible superimposed pneumonia and hypoxia -Ordered 80 mg of Lasix given her ability to produce urine -Consult nephrology as patient will need hemodialysis tomorrow, appreciate recommendations -Start cefepime every 8 hours -Oxygen as needed with a saturation goal of greater than 90% -Incentive spirometer ordered -Accurate I's and O's Bilateral pulmonary effusions -Could be infectious related in the setting of end-stage renal disease -Attempt resolution with diuretics and hemodialysis -If unsuccessful consider pulmonology consult End-stage renal disease -Consult nephrology as above, MWF schedule in outpatient -Continue sevelamer -Daily BMP Type 2 diabetes on insulin -Home regimen is 12 units of Lantus at night and NovoLog 7 units with sliding scale for meals -Patient placed on 5 units of Lantus twice daily on hospital with sliding scale -Carb consistent diet -A1c in the morning Severe valvular aortic stenosis -Last seen on echocardiogram on 07/08, likely a factor in patient's pulmonary edema CAD -Continue aspirin, atorvastatin, isosorbide mononitrate Hypertension -Continue amlodipine, hydralazine Hyperlipidemia -Continue atorvastatin Depression -Continue Effexor Diet: Low-sodium, carb consistent Disposition: Admit to telemetry DVT prophylaxis: Heparin CODE STATUS: Full code (2) Pulmonary edema: (3) Status post above-knee amputation of right lower extremity: (4) End-stage renal disease on hemodialysis: (5) Type 2 diabetes mellitus with insulin therapy: (6) Dyslipidemia: (7) Hypertension: (8) Bilateral pleural effusion: History of Present Illness Primary Care Provider: David Lopez III, ELLIOTT Patient is a 81-year-old female with a past medical history of end-stage renal disease on dialysis, pulmonary hypertension, type 2 diabetes on insulin, coronary artery disease, hyperlipidemia, Graves' disease, history of right leg amputation, and hypertension who presented to the emergency room via EMS for hypoxia and shortness of breath. Patient reports to me yesterday while she was going to sleep she began feeling short of breath and had a pulse ox of around 60%. Patient turned on her air conditioner and reported feeling better so she slept the night and woke up and was still having shortness of breath. She reports that later in the day should her physical therapist had come and they had taken her oxygen saturation and found that it was in the low 80s and the physical therapist recommended going to the emergency room. Patient is ESDR and receives hemodialysis Friday. Patient reports to me that she does still produces urine albeit not that much. Otherwise denies any other sy mptoms such as nausea, vomiting, fever, chills, chest pain, or headache. Reports good adherence with her insulin and having good blood sugars at home. Denies any other complaints at this time. ED course: Patient arrived in the emergency department and was given 3 L of oxygen which improved her saturation to greater than 90%. Chest x-ray was taken which revealed cardiomegaly with evidence of congestive heart failure, pulmonary edema with possible superimposed pneumonitis, and layering pleural effusions. CBC revealed a hemoglobin of 10.9. PT INR within normal limits. BMP showed a creatinine of 3.09. Troponin mildly elevated at 29.6. Patient is COVID- negative. Allergies Allergy/AdvReac Type Severity Reaction Status Date / Time codeine AdvReac Mild DOES NOT Verified 12/11/21 21:[address] IT MAKES HER FEEL. Home Medications Medication Instructions Recorded Confirmed Type ascorbic acid (vitamin C) 500 mg 500 mg PO QAM 12/10/18 12/11/21 History tablet polyethylene glycol 3350 17 17 gm PO DAILY PRN Constipation 12/10/18 12/11/21 History gram/dose oral powder venlafaxine 150 mg 150 mg PO QAM 12/10/18 12/11/21 History capsule,extended release 24 hr calcium carbonate 600 mg-vitamin 2 tab PO QAM 03/09/20 12/11/21 History D3 10 mcg (400 unit) chewable tablet (Calcium 600 with Vitamin D3) isosorbide mononitrate 120 mg 120 mg PO QAM #90 tabs 10/25/20 12/11/21 Rx tablet,extended release 24 hr cholecalciferol (vitamin D3) 25 50 mcg PO BID 12/27/20 12/11/21 History mcg (1,000 unit) capsule multivitamin 1 cap PO DAILY 05/18/21 12/11/21 History atorvastatin 80 mg tablet 80 mg PO HS #90 tabs 05/29/21 12/11/21 Rx vitamins A,C,M-tyvh-clodse 14,320 1 cap PO BID 06/14/21 12/11/21 History unit-226 mg-200 unit capsule (PreserVision AREDS) insulin aspart U-100 100 unit/mL 7 unit (0.07 mL) subcut TIDM #30 mL 06/22/21 12/11/21 Rx (3 mL) subcutaneous pen (Novolog Flexpen U-100 Insulin aspart) hydralazine 50 mg tablet 100 mg PO TID #90 tabs 07/23/21 12/11/21 Rx pen needle, diabetic 32 gauge x #400 ea 09/25/21 11/20/21 Rx 5/32" (BD Ultra-Fine [place] Pen Needle) betamethasone dipropionate 0.05 % 1 applic topical DIRECTED PRN 11/20/21 12/11/21 History topical cream Skin Irritation insulin glargine 100 unit/mL (3 12 unit (0.12 mL) subcut QPM #15 mL 11/27/21 12/11/21 Rx mL) subcutaneous pen (Lantus Solostar U-100 Insulin) acetaminophen 500 mg tablet 1,000 mg PO Q8H PRN Pain 12/11/21 12/11/21 History (Tylenol Extra Strength) amlodipine 5 mg tablet 5 mg PO BID 12/11/21 12/11/21 History aspirin 81 mg tablet,delayed 81 mg PO DAILY 12/11/21 12/11/21 History release (Adult Aspirin Regimen) docusate sodium 100 mg capsule 100 mg PO BID 12/11/21 12/11/21 History menthol 0.44 %-zinc oxide 20.6 % 1 applic topical TID PRN NEEDED 12/11/21 12/11/21 History topical ointment (Calmoseptine) sevelamer HCl 800 mg tablet 800 mg PO TID 12/11/21 12/11/21 History Past Med/Surg History Medical History Anemia AV fistula LEFT CAD (coronary artery disease) Carotid artery disease less than 50% ICA stenosis per 08/2016 carotid duplex CHF (congestive heart failure) Chronic gastroesophageal reflux disease Chronic kidney disease on HD Dehiscence of wound Depression Diabetic peripheral neuropathy associated with type 2 diabetes mellitus Dialysis patient 3XWK (M/W/F) [facility]>FOLLOWED BY DR. SPANGLER Dyslipidemia Gallstones Generalized osteoarthritis of multiple sites Graves disease H/O malignant neoplasm of uterine body Hiatal hernia History of kidney stones Hypertension Irregular heart beat metoprolol for this per pt Lab test negative for COVID-19 virus Macular degeneration Moderate calcific aortic stenosis Multinodular goiter (nontoxic) Multiple thyroid nodules Obesity Osteopenia Patella fracture Secondary hyperparathyroidism Sepsis Sleep apnea No device Type 2 diabetes mellitus with insulin therapy Surgical History H/O abdominoplasty H/O basal cell carcinoma excision H/O shoulder surgery Right History of appendectomy History of cataract surgery R/L History of colonoscopy History of esophagogastroduodenoscopy (EGD) History of hip surgery Closed intertrochanteric fracture of left femur 04/10/2021: 02/16/2021: Grade 4 view, MAC#3, ETT#7.0. No issues per anesthesia postop progress note. History of open reduction and internal fixation (ORIF) procedure right patella 05/18/2021: LMA#4 atraumatic + PNB. No issues per anesthesia postop progress note. History of tonsillectomy History of tooth extraction S/P complete hysterectomy Status post knee surgery 05/31/21 Dr. Heriberto Ly- Incision and Debridement Right Knee, Right Open Reduction Internal Fixation Patella, Hardware Removal(Right) Family History Father Diabetes Lung cancer Family history of diabetes mellitus Mother , in a home fire Hypertension Family history of diabetes mellitus Daughter Family history of diabetes mellitus Son Family history of diabetes mellitus Other No family history of adverse response to anesthesia Denies family history of Ovarian cancer Prostate cancer Myocardial infarction Breast cancer Colorectal cancer Social History Smoking Status: Former smoker Tobacco Type: Cigarettes Second Hand Exposure: No; Hx Alcohol Use: No Hx Substance Use: No Preferred Language: Yemeni Communication Ability: Effective Visual Impairment: No Limitations Hearing Ability: Normal 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 current occupational status: retired Other Information That Helps Us Care for You: No Feels Safe at Home: Yes Safety Concerns: Feels Safe At This Time Safety Concerns Comment: unsteady at times Childhood Exposure to Second-Hand Smoke: Yes Dental Care, Regularly: No Physical Activity Frequency: Does not Exercise Seatbelt Use: always Sunscreen Use: No Assistive Devices: Walker and Wheelchair Review of Systems Review of Systems: All systems reviewed & are unremarkable except as noted in HPI & below Physical Exam Constitutional: well developed, well nourished and + frail appearing; no acute distress Eyes: + anicteric sclerae Neck: normal visual inspection Respiratory: normal respiratory effort Auscultation: + diminished lung sounds and + crackles Cardiovascular: Rate/Rhythm: regular rate and regular rhythm Heart Sounds: + murmur Extremities: + AV fistula; no edema Gastrointestinal (Abdomen): Inspection/Auscultation: abdomen normal to inspection; abdomen not distended Percussion/Palpation: abdomen soft; abdomen nontender Musculoskeletal: Head/Neck/Chest: normocephalic and head atraumatic Above- knee amputation on the right Skin: no rashes, warm and dry Neurologic: awake Psychiatric: A+Ox3, euthymic affect Lymphatic: no cervical or axillary lymphadenopathy Results & Data Results & Data ([facility]) Vital Signs (Past 12 Hours) Vital Signs Temp Pulse Pulse Resp BP BP Pulse Ox 12/11/21 21:10 12/11/21 20:52 95 12/11/21 20:50 71 22 154/68 H 100 12/11/21 17:59 36.8 C 89 20 154/73 H 100 O2 Del Method O2 Flow Rate 12/11/21 21:10 Nasal Cannula 1 12/11/21 20:52 Room Air 12/11/21 20:50 Nasal Cannula 2 12/11/21 17:59 Nasal Cannula 3 Code Status & VTE Plan VTE Prophylaxis Plan VTE Prophylaxis will be ordered: Yes Supervising Physician Co-Signing Physician Notes Attending addendum: I have physically seen this patient, have supervised the medical residents activities, and agree with the H&P unless as otherwise noted. Assessment and Plan: Acute respiratory failure with hypoxia- Acute on chronic CHF/pulmonary edema/bilateral pleural effusions/pneumonia with parapneumonic effusions- Do trial of Lasix 80 mg IV Patient does not produce much urine, and is due for dialysis tomorrow COVID-19 positive test (U07.1, COVID-19) with Acute Pneumonia (J12.89, Other viral pneumonia) (If respiratory failure or sepsis present, add as separate assessment) With parapneumonic effusions- Cefepime 2 g IV every 12 hours Nasal cannula oxygen, titrate to keep pulse ox 92-94% Duonebs every 4 hours while awake and every 2 hours when necessary. ESRD on HD Continue sevelamer Consult nephrology for routine dialysis Diabetes mellitus- Change Lantus insulin 12 units subcu at nighttime to 5 units subcu twice daily Hold standing order for NovoLog 7 units at meals Placed on Accu-Cheks before meals and at bedtime with NovoLog coverage per scale Remaining orders and notations as noted (1) Hypertension Hypertension type: unspecified Qualified Code(s): I10 - Essential (primary) hypertension
[2021-12-12] MEDS ORDERED: GLUCAGON FOR INJ 1 MG VIAL SQ PRN (00:22)
[2021-12-12] MEDS ORDERED: CARBOHYDRATES FOR HYPOGLYCEMIA PO PRN (00:22)
[2021-12-12] MEDS ORDERED: MENTHOL-ZINC OXIDE 360 APPLN/120 GM TUBE EXT PRN (00:22)
[2021-12-12] MEDS ORDERED: POLYETHYLENE (MIRALAX) 17 GM PACK PO PRN (00:22)
[2021-12-12] MEDS ORDERED: FUROSEMIDE 40 MG/4 ML VIAL IV ONE (00:22)
[2021-12-12] MEDS ORDERED: GLUCOSE 10 TAB/TUBE PO PRN (00:22)
[2021-12-12] MEDS ORDERED: BETAMETHASONE DIP AUG (DIPROLENE) 0.05% CR 15 GM TUBE EXT PRN (00:22)
[2021-12-12] MEDS ORDERED: DEXTROSE 50% 50 ML SYRINGE IV PRN (00:22)
[2021-12-12] MEDS ORDERED: GLUCOSE 40% GEL 15 GM TUBE PO PRN (00:22)
--- NOTE | 2021-12-12 01:03 | Emergency Department Note ---
Impression & Plan Pulmonary edema, Hypoxia Admit to the [facility] ED Provider Note NAME: AMARILYS MCFARLANE AGE: 81 SEX: F ARRIVES VIA: Ambulance INFORMANT: Patient and her daughter ED PROVIDER(S): Marci Mustafa DO CHIEF COMPLAINT: Shortness of breath PLAN: Disposition: Admit to the [facility] Condition: Guarded MEDICAL DECISION MAKING: This is a 81-year-old female patient who presents to the emergency department complaining of shortness of breath. O2 saturations were initially noted to be 60%. They were rechecked again after sleep and remained in the 80s. He came to the emergency department for evaluation. Chest x-ray revealed evidence of pleural effusions and pulmonary edema. The patient had an elevated troponin. Patient does have a history of congestive heart failure. She is a dialysis patient. [facility] for further management. Triage Nursing notes reviewed and agree with them. Additional history obtained from patient's daughter who is at the bedside. Prior medical records reviewed Vital Signs: reviewed and remarkable for hypoxia on room air Differential diagnosis: Pneumonia, CHF, pneumothorax Diagnostics interpreted by me: ECG: Sinus rhythm at a rate of 85 with PACs. There is no ST segment elevation or signs of ischemia. Cardiac Monitoring: Sinus rhythm at a rate of 82 Laboratory studies: See below Imaging studies: As per radiology Chest x-ray: See report HPI: 81/F arrives for evaluation of shortness of breath. Patient noted increasing shortness of breath over the past 24-48 hours. They checked her oxygen saturation at home and found it to be 60% yesterday. Patient slept overnight and rechecked it this morning and it was 82%. She is a dialysis patient and went to dialysis on Friday. An in-home therapist checked the oxygen saturation today and found to be in the 80s and contacted her doctor who recommended she come to the emergency department for evaluation. ROS: See above HPI for pertinent positives & negatives. A total of 10 systems reviewed and were otherwise negative. PAST MEDICAL HISTORY:See Below PAST SURGICAL HISTORY:See Below FAMILY HISTORY:See Below SOCIAL HISTORY:See Below HOME MEDICATIONS:See list ALLERGIES:See list VITALS:See Below PHYSICAL EXAMINATION: HEENT: Head - normocephalic and atraumatic Pupils are equal, round, and reactive to light. Extraocular eye muscles are intact, and sclera are anicteric. Nose - moist nasal mucosa without discharge. Mouth - moist buccal mucosa. Oropharynx is nonerythematous and there is no tonsillar exudate or edema noted. Neck: Supple; no cervical lymphadenopathy or JVD Heart: Regular rate and rhythm. There is a normal S1 and S2 with no murmurs, clicks, or gallops appreciated. Lungs: Absent breath sounds at both lung bases with rales throughout Abdomen: Soft, completely nontender, nondistended, with good bowel sounds. There are no palpable pulsatile masses or hepatosplenomegaly. There is no guarding, rigidity, or rebound noted. Extremities: Right AKA; no pulmonary edema Skin: warm and dry with good turgor and no rashes. ED COURSE: Times/Reassessments: 2104: Patient was evaluated in room C6. A complete history and physical was performed. A twelve-lead EKG was obtained as described above. Order was placed for continuous cardiac monitoring. The patient was in a normal sinus rhythm at a rate of 82. Laboratory studies were drawn as above. Chest x- ray was performed. I reviewed the results with the patient and her daughter. I discussed the case with the [facility] Hospitalist. Marci Mustafa DO Past Med/Surg History Medical History Anemia AV fistula CAD (coronary artery disease) Carotid artery disease CHF (congestive heart failure) Chronic gastroesophageal reflux disease Chronic kidney disease Dehiscence of wound Depression Diabetic peripheral neuropathy associated with type 2 diabetes mellitus Dialysis patient Dyslipidemia Gallstones Generalized osteoarthritis of multiple sites Graves disease H/O malignant neoplasm of uterine body Hiatal hernia History of kidney stones Hypertension Irregular heart beat Lab test negative for COVID-19 virus Macular degeneration Moderate calcific aortic stenosis Multinodular goiter (nontoxic) Multiple thyroid nodules Obesity Osteopenia Patella fracture Secondary hyperparathyroidism Sepsis Sleep apnea Type 2 diabetes mellitus with insulin therapy Surgical History H/O abdominoplasty H/O basal cell carcinoma excision H/O shoulder surgery History of appendectomy History of cataract surgery History of colonoscopy History of esophagogastroduodenoscopy (EGD) History of hip surgery History of open reduction and internal fixation (ORIF) procedure History of tonsillectomy History of tooth extraction S/P complete hysterectomy Status post knee surgery Family History Father Diabetes Lung cancer Family history of diabetes mellitus Mother Hypertension Family history of diabetes mellitus Daughter Family history of diabetes mellitus Son Family history of diabetes mellitus Other No family history of adverse response to anesthesia Denies family history of Ovarian cancer Prostate cancer Myocardial infarction Breast cancer Colorectal cancer Social History Smoking Status: Former smoker Tobacco Type: Cigarettes Second Hand Exposure: No; Hx Alcohol Use: Yes Alcohol type: wine Hx Substance Use: No Preferred Language: Maltese Communication Ability: Effective Visual Impairment: No Limitations Hearing Ability: Normal Dog Daycare Provider Required: No Beliefs That Will Affect Care: None marital status: / Current Living Situation: Family Current Living Situation Comment: Son and Daughter in law. current occupational status: retired Feels Safe at Home: Yes Safety Concerns Comment: unsteady at times Childhood Exposure to Second-Hand Smoke: Yes Dental Care, Regularly: No Physical Activity Frequency: Does not Exercise Seatbelt Use: always Sunscreen Use: No Assistive Devices: Walker and Wheelchair Allergies Allergies Allergy/AdvReac Type Severity Reaction Status Date / Time codeine AdvReac Mild DOES NOT Verified 12/11/21 21:[address] IT MAKES HER FEEL. Home Meds Home Medications Medication Instructions Recorded Confirmed ascorbic acid (vitamin C) 500 mg 500 mg PO QAM 12/10/18 12/11/21 tablet polyethylene glycol 3350 17 17 gm PO DAILY PRN Constipation 12/10/18 12/11/21 gram/dose oral powder venlafaxine 150 mg 150 mg PO QAM 12/10/18 12/11/21 capsule,extended release 24 hr calcium carbonate 600 mg-vitamin 2 tab PO QAM 03/09/20 12/11/21 D3 10 mcg (400 unit) chewable tablet (Calcium 600 with Vitamin D3) cholecalciferol (vitamin D3) 25 50 mcg PO BID 12/27/20 12/11/21 mcg (1,000 unit) capsule multivitamin 1 cap PO DAILY 05/18/21 12/11/21 vitamins A,C,J-dzoh-ugiywa 14,320 1 cap PO BID 06/14/21 12/11/21 unit-226 mg-200 unit capsule (PreserVision AREDS) betamethasone dipropionate 0.05 % 1 applic topical DIRECTED PRN 11/20/21 12/11/21 topical cream Skin Irritation acetaminophen 500 mg tablet 1,000 mg PO Q8H PRN Pain 12/11/21 12/11/21 (Tylenol Extra Strength) amlodipine 5 mg tablet 5 mg PO BID 12/11/21 12/11/21 aspirin 81 mg tablet,delayed 81 mg PO DAILY 12/11/21 12/11/21 release (Adult Aspirin Regimen) docusate sodium 100 mg capsule 100 mg PO BID 12/11/21 12/11/21 menthol 0.44 %-zinc oxide 20.6 % 1 applic topical TID PRN NEEDED 12/11/21 12/11/21 topical ointment (Calmoseptine) sevelamer HCl 800 mg tablet 800 mg PO TID 12/11/21 12/11/21 Previous Rx's Medication Instructions Recorded isosorbide mononitrate 120 mg 120 mg PO QAM #90 tabs 10/25/20 tablet,extended release 24 hr atorvastatin 80 mg tablet 80 mg PO HS #90 tabs 05/29/21 insulin aspart U-100 100 unit/mL 7 unit (0.07 mL) subcut TIDM #30 mL 06/22/21 (3 mL) subcutaneous pen (Novolog Flexpen U-100 Insulin aspart) hydralazine 50 mg tablet 100 mg PO TID #90 tabs 07/23/21 pen needle, diabetic 32 gauge x #400 ea 09/25/2132" (BD Ultra-Fine [place] Pen Needle) insulin glargine 100 unit/mL (3 12 unit (0.12 mL) subcut QPM #15 mL 11/27/21 mL) subcutaneous pen (Lantus Solostar U-100 Insulin) Results & Data (ED) Vital Signs Vital Signs - 24 hr 12/11/21 17:59 12/11/21 20:50 12/11/21 20:52 Temperature 36.8 C Temperature Source Temporal Artery Scan Pulse Rate 89 Pulse Rate [Finger] 71 Pulse Rhythm Regular Pulse Strength Normal Respiratory Rate 20 22 Respiratory Effort / Characteristics Non-Labored Spontaneous Non-Labored Spontaneous Respiratory Depth Normal Normal Respiratory Pattern Regular Regular Blood Pressure 154/73 H Blood Pressure [Right Arm] 154/68 H Blood Pressure Mean 100 Blood Pressure Mean [Right Arm] 96 Blood Pressure Position Sitting Blood Pressure Position [Right Arm] Lying Pulse Oximetry 100 100 95 Oxygen Delivery Method Nasal Cannula Nasal Cannula Room Air Oxygen Flow Rate 3 2 Sepsis Recent Fever Within 48 Hours No Sepsis New/Unexplained Change in Mental Status No Sepsis Action Taken by Nursing No Action Required 12/11/21 21:10 Temperature Temperature Source Pulse Rate Pulse Rate [Finger] Pulse Rhythm Pulse Strength Respiratory Rate Respiratory Effort / Characteristics Respiratory Depth Respiratory Pattern Blood Pressure Blood Pressure [Right Arm] Blood Pressure Mean Blood Pressure Mean [Right Arm] Blood Pressure Position Blood Pressure Position [Right Arm] Pulse Oximetry Oxygen Delivery Method Nasal Cannula Oxygen Flow Rate 1 Sepsis Recent Fever Within 48 Hours Sepsis New/Unexplained Change in Mental Status Sepsis Action Taken by Nursing Laboratory Data Result diagrams: 12/11/21 18:25 12/11/21 18:25 Lab Results 12/11/21 12/11/21 12/11/21 Range/Units 18:25 18:25 18:25 WBC 6.97 (4.8-10.8) K/ul RBC 4.28 (3.93-5.22) M/uL Hgb 10.9 L (12.0-16.0) g/dl Hct 37.0 (34.1-44.9) % MCV 86.4 (80.0-100.0) fL MCH 25.5 (25.0-34.0) pg MCHC 29.5 L (32.0-36.0) g/dL RDW Std Deviation 58.4 H (36.4-46.3) fL RDW Coeff of Chris 20.1 H (11.5-14.5) % Plt Count 252 (130-400) K/uL MPV 9.1 L (9.4-12.3) fL Immature Gran % (Auto) 0.4 % Neut % (Auto) 69.3 % Lymph % (Auto) 15.6 % Gilmer % (Auto) 10.8 % Eos % (Auto) 3.2 % Baso % (Auto) 0.7 % Neut # (Auto) 4.83 (1.4-6.5) K/uL Lymph # (Auto) 1.09 L (1.2-3.4) K/uL Gilmer # (Auto) 0.75 (0.24-0.82) K/uL Eos # (Auto) 0.22 (0-0.50) K/uL Baso # (Auto) 0.05 (0-0.2) K/uL Immature Gran # (Auto) 0.03 H (0.00-0.02) K/uL Polychromasia 1+ PT 11.4 (9.0-12.0) Seconds INR 1.1 (0.9-1.1) APTT 22.8 (21.0-31.0) Seconds PTT Ratio 0.8 Sodium 141 (136-145) mmol/L Potassium 4.3 (3.5-5.1) mmol/L Chloride 99 (98-107) mmol/L Carbon Dioxide 32 (21-32) mmol/L Anion Gap 10 (3-11) BUN 44 H (6-23) mg/dl Creatinine 3.09 H (0.6-1.2) mg/dl Est Cr Clr Drug Dosing 14.1 ml/min Est GFR ( Amer) 15.9 ml/min Est GFR (Non-Af Amer) 13.7 ml/min BUN/Creatinine Ratio 14.2 (10-20) Glucose 86 (70-99(Fasting)) mg/dl Calcium 9.6 (8.5-10.1) mg/dl Magnesium 2.3 (1.7-2.4) mg/dl Total Bilirubin 0.4 (0.2-1.0) mg/dl AST 26 (13-39) U/L ALT 22 (7-52) U/L Alkaline Phosphatase 107 H (34-104) U/L Troponin I High Sens 29.6 H (0-14) pg/ml Total Protein 6.6 (6.0-8.3) gm/dl Albumin 3.3 L (3.4-5.0) gm/dl Globulin 3.3 (2.5-4.0) gm/dl Albumin/Globulin Ratio 1.0 (0.9-2) SARS-CoV-2 (PCR) (Negative) Influenza Type A (PCR) (Neg) Influenza Type B (PCR) (Neg) RSV (RT-PCR) (Neg) 12/11/21 Range/Units 18:25 WBC (4.8-10.8) K/ul RBC (3.93-5.22) M/uL Hgb (12.0-16.0) g/dl Hct (34.1-44.9) % MCV (80.0-100.0) fL MCH (25.0-34.0) pg MCHC (32.0-36.0) g/dL RDW Std Deviation (36.4-46.3) fL RDW Coeff of Chris (11.5-14.5) % Plt Count (130-400) K/uL MPV (9.4-12.3) fL Immature Gran % (Auto) % Neut % (Auto) % Lymph % (Auto) % Gilmer % (Auto) % Eos % (Auto) % Baso % (Auto) % Neut # (Auto) (1.4-6.5) K/uL Lymph # (Auto) (1.2-3.4) K/uL Gilmer # (Auto) (0.24-0.82) K/uL Eos # (Auto) (0-0.50) K/uL Baso # (Auto) (0-0.2) K/uL Immature Gran # (Auto) (0.00-0.02) K/uL Polychromasia PT (9.0-12.0) Seconds INR (0.9-1.1) APTT (21.0-31.0) Seconds PTT Ratio Sodium (136-145) mmol/L Potassium (3.5-5.1) mmol/L Chloride (98-107) mmol/L Carbon Dioxide (21-32) mmol/L Anion Gap (3-11) BUN (6-23) mg/dl Creatinine (0.6-1.2) mg/dl Est Cr Clr Drug Dosing ml/min Est GFR ( Amer) ml/min Est GFR (Non-Af Amer) ml/min BUN/Creatinine Ratio (10-20) Glucose (70-99(Fasting)) mg/dl Calcium (8.5-10.1) mg/dl Magnesium (1.7-2.4) mg/dl Total Bilirubin (0.2-1.0) mg/dl AST (13-39) U/L ALT (7-52) U/L Alkaline Phosphatase (34-104) U/L Troponin I High Sens (0-14) pg/ml Total Protein (6.0-8.3) gm/dl Albumin (3.4-5.0) gm/dl Globulin (2.5-4.0) gm/dl Albumin/Globulin Ratio (0.9-2) SARS-CoV-2 (PCR) NEGATIVE (Negative) Influenza Type A (PCR) Negative (Neg) Influenza Type B (PCR) Negative (Neg) RSV (RT-PCR) Negative (Neg) Administered Medications Discontinued Medications Furosemide (Furosemide 40 Mg/4 Ml Vial) 80 mg IV ONE ONE Stop: 12/12/21 00:23 Last Admin: 12/12/21 01:19 Dose: 80 mg Documented By: Imaging Data Radiologist's Impression: Chest X-Ray 12/11/21 18:07 SINGLE VIEW CHEST CLINICAL HISTORY: Dyspnea. FINDINGS: An AP, portable, upright chest radiograph is compared to study dated 07/22/2021. The heart is enlarged noting atherosclerotic calcification of the thoracic and. There is pulmonary vascular congestion. Bilateral airspace opacities are consistent with pulmonary edema. There are layering pleural effu sions with dependent consolidation. No pneumothorax is seen. The skeletal structures are osteopenic. The bony thorax is grossly intact. IMPRESSION: 1. Cardiomegaly with evidence of congestive failure. 2. Bilateral airspace opacities are consistent with pulmonary edema. Correlate clinically for evidence of a superimposed infectious/inflammatory pneumonitis. 3. Layering pleural effusions with dependent consolidation ACT 112: Negative or not required by law. Electronically signed by: Isai Baldwin M.D. 12/11/2021 8:55 PM Discharge Plan Visit Data Chief Complaint: Illness Stated Complaint: low oxygen levels ED Provider: Marci Mustafa Discharge Problem: Pulmonary edema, Hypoxia Patient Disposition: Admitted As Inpatient Discharge Instructions Interventions: ED Discharge Assessment Last Done: 12/12/21 01:00
[2021-12-12 01:25] LABS: Phosphorus 3.8 mg/dl (2.5-4.9)
[2021-12-12] MEDS: CEFEPIME 1,000 MG in SYRINGE 0 ML IV SCH ×2 (03:41→21:36)
[2021-12-12 08:07] LABS: Hemoglobin 11.2 g/dl (12.0-16.0); Mean Corpuscular Hemoglobin 25.5 pg (25.0-34.0); Mean Corpuscular Hgb Conc 28.7 g/dL (32.0-36.0); Mean Corpuscular Volume 88.6 fL (80.0-100.0); Mean Platelet Volume 9.2 fL (9.4-12.3); Platelet Count 214 K/uL (130-400); RDW Coefficient of Variation 20.2 % (11.5-14.5); RDW Standard Deviation 61.1 fL (36.4-46.3)
[2021-12-12 08:32] LABS: BUN Creatinine Ratio 14.8 (10-20); Calcium 9.6 mg/dl (8.5-10.1); Creatinine Clr Calc Pharmacy 12.4 ml/min; Est GFR (African American) 13.6 ml/min; Est GFR (Non-African American) 11.7 ml/min; Potassium 4.3 mmol/L (3.5-5.1)
--- NOTE | 2021-12-12 08:46 | Nephrology Consultation ---
Date of Consultation December 12, 2021 Assessment & Plan (1) ESRD (end stage renal disease) on dialysis: * Will provide HD this morning and attempt 3 L UF * HD RN notified and orders placed in EMR (2) Congestive heart failure: * Recommend trending troponin and ECG * Outpatient EDW is 70 kg. Will challenge and attempt 3 L UF today * Will obtain follow up CXR and reassess need for HD in am (3) Anemia: * Hgb is within target range. No acute indication for EMELINA at this time History of Present Illness Reason for Consultation: ESKD on HD, CHF Attending Physician: Jose Anaya History of Present Illness Ms. Bolivar is a 81 year old white female who is seen at the request of Dr. Anaya for ESKD on HD, CHF. Medical records in the EMR were reviewed today and are summarized as follows: Ms. Bolivar has ESKD due to DKD. She dialyzes MWF at [facility] HD MWF (Rx 3.5 hrs, 180 optiflux, Qb 350/ Qd 800, 2K bath. EDW 70 kg). Ms. Bolivar states that she last dialyzed Friday without complication and did attain her EDW. Last night however she experienced progressive dyspnea. EMS was called and RA SaO2 was 60%. Ms. Bolivar was transported to [facility] for further evaluation. She was symptomatically improved following the applicatiion of O2 at 2L/min NC. Admission troponin was elevated at 29.6 but ECG was negative for acute ischemic change and patient denied angina. COVID testing was negative. PMH: AODM, R AKA 07/03, ASCVD, HTN, Grave's disease with hypothyroidism, obesity, ESKD on IHD Allergies Allergy/AdvReac Type Severity Reaction Status Date / Time codeine AdvReac Mild DOES NOT Verified 12/11/21 21:08 [address] THE [address] IT MAKES HER FEEL. Home Medications Medication Instructions Recorded Confirmed Type ascorbic acid (vitamin C) 500 mg 500 mg PO QAM 12/10/18 12/11/21 History tablet polyethylene glycol 3350 17 17 gm PO DAILY PRN Constipation 12/10/18 12/11/21 History gram/dose oral powder venlafaxine 150 mg 150 mg PO QAM 12/10/18 12/11/21 History capsule,extended release 24 hr calcium carbonate 600 mg-vitamin 2 tab PO QAM 03/09/20 12/11/21 History D3 10 mcg (400 unit) chewable tablet (Calcium 600 with Vitamin D3) isosorbide mononitrate 120 mg 120 mg PO QAM #90 tabs 10/25/20 12/11/21 Rx tablet,extended release 24 hr cholecalciferol (vitamin D3) 25 50 mcg PO BID 12/27/20 12/11/21 History mcg (1,000 unit) capsule multivitamin 1 cap PO DAILY 05/18/21 12/11/21 History atorvastatin 80 mg tablet 80 mg PO HS #90 tabs 05/29/21 12/11/21 Rx vitamins A,C,E-hlgc-wsrhwp 14,320 1 cap PO BID 06/14/21 12/11/21 History unit-226 mg-200 unit capsule (PreserVision AREDS) insulin aspart U-100 100 unit/mL 7 unit (0.07 mL) subcut TIDM #30 mL 06/22/21 0 12/11/21 Rx (3 mL) subcutaneous pen (Novolog Flexpen U-100 Insulin aspart) hydralazine 50 mg tablet 100 mg PO TID #90 tabs 07/23/21 12/11/21 Rx pen needle, diabetic 32 gauge x #400 ea 09/25/21 11/20/21 Rx 5/32" (BD Ultra-Fine [place] Pen Needle) betamethasone dipropionate 0.05 % 1 applic topical DIRECTED PRN 11/20/21 12/11/21 History topical cream Skin Irritation insulin glargine 100 unit/mL (3 12 unit (0.12 mL) subcut QPM #15 mL 11/27/21 12/11/21 Rx mL) subcutaneous pen (Lantus Solostar U-100 Insulin) acetaminophen 500 mg tablet 1,000 mg PO Q8H PRN Pain 12/11/21 12/11/21 History (Tylenol Extra Strength) amlodipine 5 mg tablet 5 mg PO BID 12/11/21 12/11/21 History aspirin 81 mg tablet,delayed 81 mg PO DAILY 12/11/21 12/11/21 History release (Adult Aspirin Regimen) docusate sodium 100 mg capsule 100 mg PO BID 12/11/21 12/11/21 History menthol 0.44 %-zinc oxide 20.6 % 1 applic topical TID PRN NEEDED 12/11/21 12/11/21 History topical ointment (Calmoseptine) sevelamer HCl 800 mg tablet 800 mg PO TID 12/11/21 12/11/21 History Patient History Medical History Anemia AV fistula LEFT CAD (coronary artery disease) Carotid artery disease less than 50% ICA stenosis per 08/2016 carotid duplex CHF (congestive heart failure) Chronic gastroesophageal reflux disease Chronic kidney disease on HD Dehiscence of wound Depression Diabetic peripheral neuropathy associated with type 2 diabetes mellitus Dialysis patient 3XWK (M/W/F) [facility]>FOLLOWED BY DR. HATHAWAY Dyslipidemia Gallstones Generalized osteoarthritis of multiple sites Graves disease H/O malignant neoplasm of uterine body Hiatal hernia History of kidney stones Hypertension Irregular heart beat metoprolol for this per pt Lab test negative for COVID-19 virus Macular degeneration Moderate calcific aortic stenosis Multinodular goiter (nontoxic) Multiple thyroid nodules Obesity Osteopenia Patella fracture Secondary hyperparathyroidism Sepsis Sleep apnea No device Type 2 diabetes mellitus with insulin therapy Surgical History H/O abdominoplasty H/O basal cell carcinoma excision H/O shoulder surgery Right History of appendectomy History of cataract surgery R/L History of colonoscopy History of esophagogastroduodenoscopy (EGD) History of hip surgery Closed intertrochanteric fracture of left femur 04/10/2021: 02/16/2021: Grade 4 view, MAC#3, ETT#7.0. No issues per anesthesia postop progress note. History of open reduction and internal fixation (ORIF) procedure right patella 05/18/2021: LMA#4 atraumatic + PNB. No issues per anesthesia postop progress note. History of tonsillectomy History of tooth extraction S/P complete hysterectomy Status post knee surgery 05/31/21 Dr. Heriberto Ly- Incision and Debridement Right Knee, Right Open Reduction Internal Fixation Patella, Hardware Removal(Right) Family History Father Diabetes Lung cancer Family history of diabetes mellitus Mother , in a home fire Hypertension Family history of diabetes mellitus Daughter Family history of diabetes mellitus Son Family history of diabetes mellitus Other No family history of adverse response to anesthesia Denies family history of Ovarian cancer Prostate cancer Myocardial infarction Breast cancer Colorectal cancer Social History Smoking Status: Former smoker Tobacco Type: Cigarettes Second Hand Exposure: No; Hx Alcohol Use: No Hx Substance Use: No Preferred Language: Setswana Communication Ability: Effective Visual Impairment: No Limitations Hearing Ability: Normal 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 current occupational status: retired Other Information That Helps Us Care for You: No Feels Safe at Home: Yes Safety Concerns: Feels Safe At This Time Safety Concerns Comment: unsteady at times Childhood Exposure to Second-Hand Smoke: Yes Dental Care, Regularly: No Physical Activity Frequency: Does not Exercise Seatbelt Use: always Sunscreen Use: No Assistive Devices: Walker and Wheelchair Review of Systems Constitutional: no fever Eyes: no worsening vision and no problem reported Ear, Nose, Mouth, Throat: no problem reported Respiratory: no cough and no dyspnea Cardiovascular: no chest pain, no palpitations and no edema Gastrointestinal: no abdominal pain, no nausea, no vomiting and no diarrhea/loose stools Genitourinary: no dysuria and no hematuria Musculoskeletal: no back pain Integumentary: no rash Neurologic: no confusion Physical Exam Constitutional: not in distress Eyes: PERRL, conjunctivae normal, anicteric sclerae ENMT: external ear and nose normal, oropharynx normal Neck: trachea midline, no thyromegaly Respiratory: normal respiratory effort, lungs clear to auscultation Cardiovascular: RRR, no murmur, no edema Extremities: + AV fistula (+ bruit) Gastrointestinal (Abdomen): normal bowel sounds, soft, nontender, no hepatosplenomegaly Skin: no rashes, warm and dry Neurologic: awake; not confused Results & Data ([facility]) Vital Signs (Past 12 Hours) Vital Signs Temp Pulse Resp BP Pulse Ox Pulse Ox O2 Del Method 12/12/21 07:00 36.9 C 87 18 171/87 H 95 Nasal Cannula 12/12/21 06:18 83 20 173/86 H 98 Nasal Cannula 12/12/21 04:11 78 18 174/89 H 98 Nasal Cannula 12/12/21 01:06 97 12/12/21 01:05 82 12 162/86 H 97 Nasal Cannula 12/11/21 21:10 Nasal Cannula 12/11/21 20:52 95 Room Air 12/11/21 20:50 71 22 154/68 H 100 Nasal Cannula O2 Del Method O2 Flow Rate O2 Flow Rate 12/12/21 07:00 2 12/12/21 06:18 2 12/12/21 04:11 2 12/12/21 01:06 Nasal Cannula 2 12/12/21 01:05 2 12/11/21 21:10 1 12/11/21 20:52 12/11/21 20:50 2 Laboratory Results Laboratory Tests 12/11/21 12/11/21 12/12/21 18:25 18:25 07:41 WBC 6.10 Hgb 11.2 L Hct 39.0 Plt Count 214 Sodium Potassium Chloride Carbon Dioxide BUN Creatinine Calcium Troponin I High Sens 29.6 H SARS-CoV-2 (PCR) NEGATIVE Influenza Type A (PCR) Negative Influenza Type B (PCR) Negative RSV (RT-PCR) Negative 12/12/21 07:41 WBC Hgb Hct Plt Count Sodium 141 Potassium 4.3 Chloride 101 Carbon Dioxide 31 BUN 52 H Creatinine 3.51 H D Calcium 9.6 Troponin I High Sens SARS-CoV-2 (PCR) Influenza Type A (PCR) Influenza Type B (PCR) RSV (RT-PCR) Diagnostic Findings 12/11/21 CXR: The heart is enlarged noting atherosclerotic calcification of the thoracic and. There is pulmonary vascular congestion. Bilateral airspace opacities are consistent with pulmonary edema. There are layering pleural effusions with dependent consolidation. No pneumothorax is seen. The skeletal structures are osteopenic. The bony thorax is grossly intact. PG Care Time/CCT Total # of Minutes Spent Total Time Spent with Patient: Total time spent is greater than 50% in coordination of care (as documented) at patient's floor/unit and/or counseling patient: Coding Level of Care Code 68879 Inpt Consult Level 5 Diagnoses ESRD (end stage renal disease) on dialysis N18.6; Z99.2 Congestive heart failure I50.9 Anemia N18.6; D63.1; Z99.2 Anemia type: due to chronic kidney disease Chronic kidney disease stage: on chronic dialysis (1) Anemia Anemia type: due to chronic kidney disease Chronic kidney disease stage: on chronic dialysis Qualified Code(s): N18.6 - End stage renal disease; D63.1 - Anemia in chronic kidney disease; Z99.2 - Dependence on renal dialysis
[2021-12-12 09:01] LABS: Estimated Average Glucose 111 mg/dl; Hemoglobin A1C 5.5 % (4.5-5.6)
[2021-12-12] MEDS: ASPIRIN 81 MG ECTAB PO SCH (09:14)
[2021-12-12] MEDS: SEVELAMER HCL 800 MG TABLET PO SCH ×3 (09:14→18:27)
[2021-12-12] MEDS: ASCORBIC ACID 500 MG TAB PO SCH (09:14)
[2021-12-12] MEDS: DOCUSATE SODIUM 100 MG CAP PO SCH ×2 (09:14→21:03)
[2021-12-12] MEDS: HEPARIN SOD 5,000 UNIT/0.5 ML VIAL SQ SCH ×2 (09:15→21:05)
[2021-12-12] MEDS: CHOLECALCIFEROL 1,000 UNITS 25 MCG TAB PO SCH ×2 (09:15→21:04)
[2021-12-12] MEDS: VENLAFAXINE HCL XR 150 MG CAPXR PO SCH (09:15)
[2021-12-12] MEDS: CALCIUM 600MG + VIT D 400 IU TAB PO SCH (09:15)
[2021-12-12] MEDS: CEROVITE ADV FORMULA TAB PO SCH (09:15)
[2021-12-12] MEDS: MULTIVITAMIN TAB PO SCH (09:15)
[2021-12-12] MEDS: INSULIN ASPART PER UNIT SC SCH ×4 (09:16→21:37)
[2021-12-12] MEDS: amLODIPine BESYLATE 5 MG TAB PO SCH ×2 (09:16→21:04)
[2021-12-12] MEDS: hydrALAZINE TAB 50 MG TAB PO SCH ×3 (09:17→21:04)
[2021-12-12] MEDS: ISOSORBIDE MONO EXTENDED REL 60 MG TABCR PO SCH (09:17)
[2021-12-12] MEDS: LANTUS PER UNIT CHARGE SQ SCH ×2 (09:17→21:37)
--- NOTE | 2021-12-12 09:52 | Hospitalist Progress Note ---
Date of Service December 12, 2021 Assessment & Plan (1) Acute dyspnea: Plan: Attending: Dr. Anaya Acute on chronic Diastolic Congestive Heart Failure Patient with history of CHF, nocturnal hypoxia, pulmonary hypertension, chronic right pleural effusion, presents with acute shortness of breath. Chest x-ray shows evidence of pulmonary edema Patient was taken to the dialysis lab today and had ultrafiltration with removal of 3 L of fluid. After dialysis, patient felt like she was back to baseline. Patient with history of severe aortic stenosis Continue with diuresis as well as hemodialysis Supplemental oxygen to maintain SaO2 greater than 90% (2) ESRD (end stage renal disease) on dialysis: Plan: Dialysis 3 times weekly Appreciate nephrology input Follow fluid ins and outs (3) Congestive heart failure: Plan: Continue with hemodialysis with ultrafiltration Patient is not on any chronic diuretics as an outpatient Continue with furosemide as needed Continue with strict ins and outs Continue amlodipine and Imdur for cardiac regulation (4) Nocturnal hypoxia: Plan: Supplemental oxygen to maintain SaO2 greater than 90% No evidence of hypercapnia (5) Hypertension, uncontrolled: Plan: Continue amlodipine, hydralazine, and Imdur Continue with hemodialysis for fluid management Diuretics as needed Follow-up on telemetry (6) Bilateral pleural effusion: Plan: Chronic Continue with dialysis (7) Type 2 diabetes mellitus with insulin therapy: Plan: Continuous Lantus as well as NovoLog sliding scale insulin Hemoglobin A1c is 5.5% Continue with diabetic diet (8) DVT prophylaxis: Plan: Continue aspirin 81 mg p.o. daily Continue with heparin sodium 5000 unit subcutaneously every 12 hours Admission and Anticipated Discharge Date Admission Date: December 11, 2021 Subjective Attending: Dr. Anaya 81-year-old female with a past medical history of IDDMII, CAD, HTN, ESRD on dialysis, HLD, severe , CHF, Graves disease, chronic anemia. Patient presents with shortness of breath. She is seen after dialysis today. They were able to ultrafiltrate 3 L off. Patient currently denies no shortness of breath and is oxygenating well. She has no chest pain or tightness. She has no other acute complaints at this time. Review of Systems Review of Systems: A total of 10 systems was reviewed and is negative other than as listed in the HPI Physical Exam Physical Exam: GENERAL : No acute distress EYES: No icterus, gaze conjugate NOSE: No evidence of epistaxis MOUTH: No lesions or candidiasis NECK: Supple LUNGS: Decreased globally. CTA B/L, no wheezes, rales or rhonchi HEART: Regular, rate controlled ABDOMEN: Soft, NT, ND, BS Present EXTREMITIES: No LE edema, left pedal pulse intact. Right [id number] amputation NEURO: A&OX3 Results & Data Results & Data ([facility]) Vital Signs (Past 12 Hours) Vital Signs Temp Pulse Resp BP Pulse Ox Pulse Ox O2 Del Method 12/12/21 08:00 Nasal Cannula 12/12/21 07:00 36.9 C 87 18 171/87 H 95 Nasal Cannula 12/12/21 06:18 83 20 173/86 H 98 Nasal Cannula 12/12/21 04:11 78 18 174/89 H 98 Nasal Cannula 12/12/21 01:06 97 12/12/21 01:05 82 12 162/86 H 97 Nasal Cannula O2 Del Method O2 Flow Rate O2 Flow Rate 12/12/21 08:00 2 12/12/21 07:00 2 12/12/21 06:18 2 12/12/21 04:11 2 12/12/21 01:06 Nasal Cannula 2 12/12/21 01:05 2 Critical Care Results & Data Vital Signs (Past 12 Hours) Vital Signs Temp Pulse Resp BP Pulse Ox Pulse Ox O2 Del Method 12/12/21 08:00 Nasal Cannula 12/12/21 07:00 36.9 C 87 18 171/87 H 95 Nasal Cannula 12/12/21 06:18 83 20 173/86 H 98 Nasal Cannula 12/12/21 04:11 78 18 174/89 H 98 Nasal Cannula 12/12/21 01:06 97 12/12/21 01:05 82 12 162/86 H 97 Nasal Cannula O2 Del Method O2 Flow Rate O2 Flow Rate 12/12/21 08:00 2 12/12/21 07:00 2 12/12/21 06:18 2 12/12/21 04:11 2 12/12/21 01:06 Nasal Cannula 2 12/12/21 01:05 2 Lab & Micro Results (Past 24 Hours) RBC 4.39 M/uL (3.93-5.22) 12/13/21 WBC 7.97 K/ul (4.8-10.8) 12/13/21 Hgb 11.3 g/dl (12.0-16.0) L 12/13/21 Hct 38.4 % (34.1-44.9) 12/13/21 MCV 87.5 fL (80.0-100.0) 12/13/21 MCH 25.7 pg (25.0-34.0) 12/13/21 MCHC 29.4 g/dL (32.0-36.0) L 12/13/21 RDW Standard Deviation 60.7 fL (36.4-46.3) H 12/13/21 RDW Coefficient of Variation 19.9 % (11.5-14.5) H 12/13/21 Plt Count 216 K/uL (130-400) 12/13/21 MPV 9.8 fL (9.4-12.3) 12/13/21 Na 138 mmol/L (136-145) 12/13/21 K 4.5 mmol/L (3.5-5.1) 12/13/21 Cl 102 mmol/L (98-107) 12/13/21 CO2 29 mmol/L (21-32) 12/13/21 Anion Gap 7 (3-11) 12/13/21 BUN 38 mg/dl (6-23) H 12/13/21 Creatinine 2.66 mg/dl (0.6-1.2) H 12/13/21 Estimated GFR ( Amer) 19.0 ml/min 12/13/21 Estimated GFR (Non-Af Amer) 16.4 ml/min 12/13/21 BUN/Creatinine Ratio 14.3 (10-20) 12/13/21 Glu 163 mg/dl (70-99(Fasting)) H 12/13/21 Ca 9.5 mg/dl (8.5-10.1) 12/13/21 Calcium Level 9.5 mg/dl (8.5-10.1) 12/13/21 06:08 Diagnostic Findings (Past 24 Hours) Chest X-Ray 12/11/21 18:07 SINGLE VIEW CHEST CLINICAL HISTORY: Dyspnea. FINDINGS: An AP, portable, upright chest radiograph is compared to study dated 07/22/2021. The heart is enlarged noting atherosclerotic calcification of the thoracic and. There is pulmonary vascular congestion. Bilateral airspace opacities are consistent with pulmonary edema. There are layering pleural effusions with dependent consolidation. No pneumothorax is seen. The skeletal structures are osteopenic. The bony thorax is grossly intact. IMPRESSION: 1. Cardiomegaly with evidence of congestive failure. 2. Bilateral airspace opacities are consistent with pulmonary edema. Correlate clinically for evidence of a superimposed infectious/inflammatory pneumonitis. 3. Layering pleural effusions with dependent consolidation ACT 112: Negative or not required by law. Electronically signed by: Isai Baldwin M.D. 12/11/2021 8:55 PM RT Ventilator Mngmt (Last Documented) Ventilator Ordered Settings Respiratory Rate 18 12/12/21 07:00 Ventilator - PT Measurements Respiratory Rate 18 PG Care Time/CCT Total # of Minutes Spent Total Time Spent with Patient: Total time spent is greater than 50% in coordination of care (as documented) at patient's floor/unit and/or counseling patient: Coding Level of Care Code 20077 Subseq Hosp Care Lvl 2 Diagnoses Acute dyspnea R06.00 ESRD (end stage renal disease) on dialysis N18.6; Z99.2 Congestive heart failure I50.9 Nocturnal hypoxia G47.34 Hypertension, uncontrolled I10 Bilateral pleural effusion J90 Type 2 diabetes mellitus with insulin therapy E11.9; Z79.4 DVT prophylaxis Z29.9
[2021-12-12] MEDS ORDERED: HEPARIN SOD (PORCINE) 1000 UNIT/ML IV SCH (10:00)
--- NOTE | 2021-12-12 10:18 | Electrocardiogram Report ---
Test Reason : Blood Pressure : / mmHG Vent. Rate : 085 BPM Atrial Rate : 085 BPM P-R Int : 152 ms QRS Dur : 096 ms QT Int : 394 ms P-R-T Axes : 093 006 070 degrees QTc Int : 468 ms Poor data quality, interpretation may be adversely affected Sinus rhythm with PVCs Otherwise normal ECG When compared with ECG of 09-JUL-2021 14:55, T wave amplitude has decreased in Anterior leads Confirmed by Aamir Travis ([id number]) on 12/12/2021 10:18:48 AM Referred By: David Lopez Confirmed By:Juan Travis
[2021-12-12] MEDS: HEPARIN SOD (PORCINE) 1000 UNIT/ML 1 ML VIAL IV SCH ×2 (11:42→12:42)
--- NOTE | 2021-12-12 11:49 | Dialysis Progress Note ---
Date of Service December 12, 2021 Assessment & Plan (1) ESRD (end stage renal disease) on dialysis: Plan: * Continue current HD prescription. Will reduce UF goal if SBP < 100 (2) Congestive heart failure: Plan: * Given difficulty w/ UF on HD and evidence of CHF, will order echocardiogram Admission and Anticipated Discharge Date Admission Date: December 11, 2021 Subjective Ms. Bolivar was evaluated during HD this morning. She was breathing comfortably on O2 at 2 L/min NC. She denied angina. HD medical staff services coordinator notes SBP dropped from 180 to 130 mm Hg within the 1st hour after only 1 L UF. Review of Systems Constitutional: no fever Eyes: no worsening vision and no problem reported Ear, Nose, Mouth, Throat: no problem reported Respiratory: no cough and no dyspnea Cardiovascular: no chest pain, no palpitations and no edema Gastrointestinal: no abdominal pain, no nausea, no vomiting and no diarrhea/loose stools Genitourinary: no dysuria and no hematuria Musculoskeletal: no back pain Integumentary: no rash Neurologic: no confusion Physical Exam Constitutional: not in distress Eyes: PERRL, conjunctivae normal, anicteric sclerae ENMT: external ear and nose normal, oropharynx normal Neck: trachea midline, no thyromegaly Respiratory: normal respiratory effort, lungs clear to auscultation Cardiovascular: RRR, no murmur, no edema Extremities: + AV fistula (+ bruit) Gastrointestinal (Abdomen): normal bowel sounds, soft, nontender, no hepatosplenomegaly Skin: no rashes, warm and dry Neurologic: awake; not confused Results & Data ([facility]) Vital Signs (Past 12 Hours) Vital Signs Temp Pulse Pulse Pulse Resp BP BP 12/12/21 11:30 71 134/55 L 12/12/21 11:00 68 144/92 H 12/12/21 10:30 83 167/81 H 12/12/21 09:55 36.7 C 85 12/12/21 08:00 12/12/21 07:00 36.9 C 87 18 171/87 H 12/12/21 06:18 83 20 173/86 H 12/12/21 04:11 78 18 174/89 H 12/12/21 01:06 12/12/21 01:05 82 12 162/86 H Pulse Ox Pulse Ox O2 Del Method O2 Del Method O2 Flow Rate O2 Flow Rate 12/12/21 11:30 12/12/21 11:00 12/12/21 10:30 12/12/21 09:55 12/12/21 08:00 Nasal Cannula 2 12/12/21 07:00 95 Nasal Cannula 2 12/12/21 06:18 98 Nasal Cannula 2 12/12/21 04:11 98 Nasal Cannula 2 12/12/21 01:06 97 Nasal Cannula 2 12/12/21 01:05 97 Nasal Cannula 2 [facility] Procedure Codes (Charges) Renal/Urologic Renal/Urologic: 95779 Hemodialysis, One Evaluation Coding Level of Care Code None Diagnoses ESRD (end stage renal disease) on dialysis N18.6; Z99.2 Congestive heart failure I50.9 CPT Codes Renal/Urologic - Renal/Urologic: 08418 Hemodialysis, One Evaluation ([id number])
--- NOTE | 2021-12-12 17:20 | XCELERA ---
[id number]
[2021-12-12] MEDS: ATORVASTATIN 40 MG TAB PO SCH (21:36)
--- NOTE | 2021-12-13 06:14 | Billing Data ---
Date of Service December 13, 2021 Coding Level of Care Code 06400 Initial Inpt Care Lvl 3
[2021-12-13 06:49] LABS: Hematocrit (blood only) 38.4 % (34.1-44.9); Hemoglobin 11.3 g/dl (12.0-16.0); Mean Corpuscular Hemoglobin 25.7 pg (25.0-34.0); Mean Corpuscular Hgb Conc 29.4 g/dL (32.0-36.0); Mean Corpuscular Volume 87.5 fL (80.0-100.0); Mean Platelet Volume 9.8 fL (9.4-12.3); Platelet Count 216 K/uL (130-400); RDW Coefficient of Variation 19.9 % (11.5-14.5); RDW Standard Deviation 60.7 fL (36.4-46.3); Red Blood Count 4.39 M/uL (3.93-5.22); White Blood Count 7.97 K/ul (4.8-10.8)
[2021-12-13 07:24] LABS: BUN Creatinine Ratio 14.3 (10-20); Calcium 9.5 mg/dl (8.5-10.1); Creatinine Clr Calc Pharmacy 16.4 ml/min; Est GFR (Non-African American) 16.4 ml/min; Potassium 4.5 mmol/L (3.5-5.1)
--- NOTE | 2021-12-13 07:31 | XRay Report ---
XR chest 1V portable HISTORY: 81 years-old Female CHF acute shortness of breath with reported congestive heart failure COMPARISON: Chest radiograph 12/11/2021 TECHNIQUE: AP view of the chest FINDINGS: Cardiac silhouette is enlarged. Pulmonary vascular congestion with interstitial coarsening. Right gre ater than left layering pleural effusions with bibasilar predominant consolidation redemonstrated. Sl ightly improved aeration of the left lung base. Degenerative changes of the shoulders and spine. Nons pecific cortical defect of the right humeral head measures approximately 10 mm. Atherosclerosis of th e aorta. IMPRESSION: 1. Cardiomegaly with pulmonary edema. 2. Right greater than left layering pleural effusions with bibasilar consolidation redemonstrated. 3. Slightly improved aeration of the left lung base. ACT 112: Negative or not required by law. The above report was generated using voice recognition software. It may contain grammatical, syntax o r spelling errors. Electronically signed by: All Osullivan M.D. 12/13/2021 7:29 AM
[2021-12-13] MEDS: SEVELAMER HCL 800 MG TABLET PO SCH ×3 (07:39→17:15)
[2021-12-13] MEDS: INSULIN ASPART PER UNIT SC SCH ×4 (08:16→21:14)
--- NOTE | 2021-12-13 08:32 | Nephrology Progress Note ---
Date of Service December 13, 2021 Assessment & Plan (1) ESRD (end stage renal disease) on dialysis: Plan: * Will provide HD today for continued UF and to establish new EDW. Orders have been placed in EMR and HD RN notified * Will repeat CXR in am (2) Congestive heart failure: Plan: * Valvular heart disease including mod-severe , MR * Consider consultation w/ Cardiology to determine whether patient is candidate for TAVR Admission and Anticipated Discharge Date Admission Date: December 11, 2021 Subjective Ms. Bolivar was evaluated during HD this morning. She was breathing comfortably on O2 at 2 L/min NC. She denied angina. Review of Systems Constitutional: no fever Eyes: no worsening vision and no problem reported Ear, Nose, Mouth, Throat: no problem reported Respiratory: no cough and no dyspnea Cardiovascular: no chest pain, no palpitations and no edema Gastrointestinal: no abdominal pain, no nausea, no vomiting and no diarrhea/loose stools Genitourinary: no dysuria and no hematuria Musculoskeletal: no back pain Integumentary: no rash Neurologic: no confusion Physical Exam Constitutional: not in distress Eyes: PERRL, conjunctivae normal, anicteric sclerae ENMT: external ear and nose normal, oropharynx normal Neck: trachea midline, no thyromegaly Respiratory: normal respiratory effort, lungs clear to auscultation Cardiovascular: RRR, no murmur, no edema Extremities: + AV fistula (+ bruit) Gastrointestinal (Abdomen): normal bowel sounds, soft, nontender, no hepatosplenomegaly Skin: no rashes, warm and dry Neurologic: awake; not confused Results & Data ([facility]) Vital Signs (Past 12 Hours) Vital Signs Temp Pulse Pulse Pulse Resp BP Pulse Ox 12/13/21 05:56 81 12/13/21 07:23 36.3 C L 85 18 150/70 H 91 12/13/21 04:31 36.4 C L 78 20 151/78 H 92 12/13/21 00:02 36.7 C 87 16 164/81 H 98 O2 Del Method O2 Flow Rate 12/13/21 05:56 12/13/21 07:23 Nasal Cannula 2 12/13/21 04:31 Nasal Cannula 2 12/13/21 00:02 Nasal Cannula 2 Laboratory Results Laboratory Tests 12/13/21 12/13/21 06:08 06:08 WBC 7.97 Hgb 11.3 L Hct 38.4 Plt Count 216 Sodium 138 Potassium 4.5 Chloride 102 Carbon Dioxide 29 BUN 38 H Creatinine 2.66 H D Glucose 163 H Calcium 9.5 12/13/21 CXR: Cardiac silhouette is enlarged. Pulmonary vascular congestion with interstitial coarsening. Right greater than left layering pleural effusions with bibasilar predominant consolidation redemonstrated. Slightly improved aeration of the left lung base. Degenerative changes of the shoulders and spine. Nonspecific cortical defect of the right humeral head measures approximately 10 mm. Atherosclerosis of the aorta. 12/12/21 Echo: LVEF 45 - 50%, moderate to severe , moderate to severe MR, RVSP 40 - 50 mm Hg, moderate dilation of IVC PG Care Time/CCT Total # of Minutes Spent Total Time Spent with Patient: Total time spent is greater than 50% in coordination of care (as documented) at patient's floor/unit and/or counseling patient: Coding Level of Care Code 71339 Subseq Hosp Care Lvl 3 Diagnoses ESRD (end stage renal disease) on dialysis N18.6; Z99.2 Congestive heart failure I50.9
[2021-12-13] MEDS ORDERED: SODIUM CHLORIDE 0.9% 1000ML 1,000 ML IV PRN (08:47)
[2021-12-13] MEDS: LANTUS PER UNIT CHARGE SQ SCH ×2 (08:53→21:14)
[2021-12-13] MEDS: CHOLECALCIFEROL 1,000 UNITS 25 MCG TAB PO SCH ×2 (08:56→21:17)
[2021-12-13] MEDS: HEPARIN SOD 5,000 UNIT/0.5 ML VIAL SQ SCH ×2 (08:56→21:18)
[2021-12-13] MEDS: DOCUSATE SODIUM 100 MG CAP PO SCH ×3 (08:57→21:18)
[2021-12-13] MEDS ORDERED: HEPARIN SOD (PORCINE) 1000 UNIT/ML IV SCH (09:00)
[2021-12-13] MEDS: hydrALAZINE TAB 50 MG TAB PO SCH ×3 (15:24→21:18)
[2021-12-13] MEDS: CALCIUM 600MG + VIT D 400 IU TAB PO SCH (16:02)
[2021-12-13] MEDS: ASCORBIC ACID 500 MG TAB PO SCH (16:02)
[2021-12-13] MEDS: MULTIVITAMIN TAB PO SCH (16:03)
[2021-12-13] MEDS: CEROVITE ADV FORMULA TAB PO SCH (16:03)
[2021-12-13] MEDS: ASPIRIN 81 MG ECTAB PO SCH (16:03)
[2021-12-13] MEDS: VENLAFAXINE HCL XR 150 MG CAPXR PO SCH (16:07)
[2021-12-13] MEDS: amLODIPine BESYLATE 5 MG TAB PO SCH ×2 (16:21→21:18)
[2021-12-13] MEDS: ISOSORBIDE MONO EXTENDED REL 60 MG TABCR PO SCH (16:22)
--- NOTE | 2021-12-13 17:54 | Hospitalist Progress Note ---
Date of Service December 13, 2021 Assessment & Plan (1) Acute dyspnea: Plan: Attending: Dr. Gaitan Patient with history of CHF, nocturnal hypoxia, pulmonary hypertension, chronic right pleural effusion, presents with acute shortness of breath. Chest x-ray showed evidence of pulmonary edema on admission Day #2 of consecutive hemodialysis with ultrafiltration of 3 L yesterday and 3 L today. Dialysis planned again for tomorrow Patient with history of severe aortic stenosis Continue with diuresis as well as hemodialysis Supplemental oxygen to maintain SaO2 greater than 90% (2) ESRD (end stage renal disease) on dialysis: Plan: Dialysis 3 times weekly Appreciate nephrology input Follow fluid ins and outs Dialysis planned again for tomorrow (3) Congestive heart failure: Plan: Continue with hemodialysis with ultrafiltration Patient is not on any chronic diuretics as an outpatient Continue with furosemide as needed Continue with strict ins and outs Continue amlodipine and Imdur for cardiac regulation (4) Nocturnal hypoxia: Plan: Supplemental oxygen to maintain SaO2 greater than 90% No evidence of hypercapnia (5) Hypertension, uncontrolled: Plan: Continue amlodipine, hydralazine, and Imdur Continue with hemodialysis for fluid management Diuretics as needed Follow-up on telemetry (6) Bilateral pleural effusion: Plan: Chronic Continue with dialysis We will obtain repeat chest x-ray tomorrow morning (7) Type 2 diabetes mellitus with insulin therapy: Plan: Continuous Lantus as well as NovoLog sliding scale insulin Hemoglobin A1c is 5.5% Continue with diabetic diet (8) DVT prophylaxis: Plan: Continue aspirin 81 mg p.o. daily Continue with heparin sodium 5000 unit subcutaneously every 12 hours Plan Disposition: Anticipate discharge once cleared by nephrology Admission and Anticipated Discharge Date Admission Date: December 11, 2021 Supervising Physician Co-Signing Physician Notes Attending Attestation - Chart reviewed, care plan d/w DELL Argueta. I agree w/ the tinajero components of his documentation. Miguel Angel Gaitan MD Subjective Attending: Dr. Gaitan Patient much more alert today. She is somewhat spunky. She denies any shortness of breath. She has no acute complaints. She again questions discharge plan. She received dialysis yesterday and again today. Dialysis is again planned for tomorrow. Review of Systems Review of Systems: A total of 10 systems was reviewed and is negative other than as listed in the HPI Physical Exam Physical Exam: GENERAL : No acute distress EYES: No icterus, gaze conjugate NOSE: No evidence of epistaxis MOUTH: No lesions or candidiasis NECK: Supple LUNGS: CTA B/L, no wheezes, rales or rhonchi HEART: Regular, rate controlled ABDOMEN: Soft, NT, ND, BS Present EXTREMITIES: No LE edema, left pedal pulses intact. [id number] stump on the right without tissue breakdown or pain NEURO: A&OX3 Results & Data Results & Data ([facility]) Vital Signs (Past 12 Hours) Vital Signs Temp Pulse Pulse Pulse Resp BP BP 12/13/21 15:37 36.4 C L 73 16 137/67 12/13/21 14:45 73 101/50 L 12/13/21 14:30 74 100/55 L 12/13/21 14:00 73 137/57 L 12/13/21 13:30 71 134/63 12/13/21 15:15 36.5 C 73 136/64 12/13/21 13:00 71 134/63 12/13/21 12:30 72 149/66 H 12/13/21 12:03 74 148/70 H 12/13/21 12:20 36.6 C 74 12/13/21 11:26 36.4 C L 85 16 163/71 H 12/13/21 08:00 12/13/21 05:56 81 12/13/21 07:23 36.3 C L 85 18 150/70 H Pulse Ox O2 Del Method O2 Flow Rate 12/13/21 15:37 98 High Flow Nasal Cannula 2 12/13/21 14:45 12/13/21 14:30 12/13/21 14:00 12/13/21 13:30 12/13/21 15:15 12/13/21 13:00 12/13/21 12:30 12/13/21 12:03 12/13/21 12:20 12/13/21 11:26 93 High Flow Nasal Cannula 2 12/13/21 08:00 High Flow Nasal Cannula 2 12/13/21 05:56 12/13/21 07:23 91 Nasal Cannula 2 Critical Care Results & Data Vital Signs (Past 12 Hours) Vital Signs Temp Pulse Pulse Pulse Resp BP BP 12/13/21 15:37 36.4 C L 73 16 137/67 12/13/21 14:45 73 101/50 L 12/13/21 14:30 74 100/55 L 12/13/21 14:00 73 137/57 L 12/13/21 13:30 71 134/63 12/13/21 15:15 36.5 C 73 136/64 12/13/21 13:00 71 134/63 12/13/21 12:30 72 149/66 H 12/13/21 12:03 74 148/70 H 12/13/21 12:20 36.6 C 74 12/13/21 11:26 36.4 C L 85 16 163/71 H 12/13/21 08:00 12/13/21 05:56 81 12/13/21 07:23 36.3 C L 85 18 150/70 H Pulse Ox O2 Del Method O2 Flow Rate 12/13/21 15:37 98 High Flow Nasal Cannula 2 12/13/21 14:45 12/13/21 14:30 12/13/21 14:00 12/13/21 13:30 12/13/21 15:15 12/13/21 13:00 12/13/21 12:30 12/13/21 12:03 12/13/21 12:20 12/13/21 11:26 93 High Flow Nasal Cannula 2 12/13/21 08:00 High Flow Nasal Cannula 2 12/13/21 05:56 12/13/21 07:23 91 Nasal Cannula 2 Lab & Micro Results (Past 24 Hours) RBC 4.37 M/uL (3.93-5.22) 12/15/21 WBC 5.52 K/ul (4.8-10.8) 12/15/21 Hgb 11.1 g/dl (12.0-16.0) L 12/15/21 Hct 37.7 % (34.1-44.9) 12/15/21 MCV 86.3 fL (80.0-100.0) 12/15/21 MCH 25.4 pg (25.0-34.0) 12/15/21 MCHC 29.4 g/dL (32.0-36.0) L 12/15/21 RDW Standard Deviation 59.3 fL (36.4-46.3) H 12/15/21 RDW Coefficient of Variation 19.7 % (11.5-14.5) H 12/15/21 Plt Count 186 K/uL (130-400) 12/15/21 MPV 10.5 fL (9.4-12.3) 12/15/21 No Data to Display No Data to Display Diagnostic Findings (Past 24 Hours) Chest X-Ray 12/13/21 06:00 XR chest 1V portable HISTORY: 81 years-old Female CHF acute shortness of breath with reported congestive heart failure COMPARISON: Chest radiograph 12/11/2021 TECHNIQUE: AP view of the chest FINDINGS: Cardiac silhouette is enlarged. Pulmonary vascular congestion with interstitial coarsening. Right greater than left layering pleural effusions with bibasilar predominant consolidation redemonstrated. Slightly improved aeration of the left lung base. Degenerative changes of the shoulders and spine. Nonspecific cortical defect of the right humeral head measures approximately 10 mm. Atherosclerosis of the aorta. IMPRESSION: 1. Cardiomegaly with pulmonary edema. 2. Right greater than left layering pleural effusions with bibasilar consolidation redemonstrated. 3. Slightly improved aeration of the left lung base. ACT 112: Negative or not required by law. The above report was generated using voice recognition software. It may contain grammatical, syntax or spelling errors. Electronically signed by: All Osullivan M.D. 12/13/2021 7:29 AM I & O Totals 24 Hours 12/12/21 12/13/21 12/14/21 06:59 06:59 06:59 Intake Total 240 / 240 Balance 240 / 240 Cumulative 12/11/21 17:33 thru 12/13/21 15:15 Intake Total 240 Balance 240 RT Ventilator Mngmt (Last Documented) Ventilator Ordered Settings Respiratory Rate 16 12/13/21 15:37 Ventilator - PT Measurements Respiratory Rate 16 PG Care Time/CCT Total # of Minutes Spent Total Time Spent with Patient: Total time spent is greater than 50% in coordination of care (as documented) at patient's floor/unit and/or counseling patient: Coding Level of Care Code 39601 Subseq Hosp Care Lvl 2 Diagnoses Acute dyspnea R06.00 ESRD (end stage renal disease) on dialysis N18.6; Z99.2 Congestive heart failure I50.9 Nocturnal hypoxia G47.34 Hypertension, uncontrolled I10 Bilateral pleural effusion J90 Type 2 diabetes mellitus with insulin therapy E11.9; Z79.4 DVT prophylaxis Z29.9
[2021-12-13] MEDS: ATORVASTATIN 40 MG TAB PO SCH (21:17)
[2021-12-13] MEDS: CEFEPIME 1,000 MG in SYRINGE 0 ML IV SCH (21:17)
[2021-12-14 06:41] LABS: BUN Creatinine Ratio 16.5 (10-20); Calcium 9.7 mg/dl (8.5-10.1); Creatinine Clr Calc Pharmacy 17.1 ml/min; Est GFR (Non-African American) 17.3 ml/min; Potassium 4.5 mmol/L (3.5-5.1)
[2021-12-14 07:01] LABS: Hematocrit (blood only) 40.6 % (34.1-44.9); Hemoglobin 11.7 g/dl (12.0-16.0); Mean Corpuscular Hemoglobin 25.7 pg (25.0-34.0); Mean Corpuscular Hgb Conc 28.8 g/dL (32.0-36.0); Mean Platelet Volume 9.6 fL (9.4-12.3); Platelet Count 183 K/uL (130-400); RDW Standard Deviation 62.5 fL (36.4-46.3); Red Blood Count 4.56 M/uL (3.93-5.22); White Blood Count 6.62 K/ul (4.8-10.8)
[2021-12-14] MEDS ORDERED: SODIUM CHLORIDE 0.9% 1000ML 1,000 ML IV PRN (08:28)
[2021-12-14] MEDS ORDERED: HEPARIN SOD (PORCINE) 1000 UNIT/ML IV ONE (08:28)
--- NOTE | 2021-12-14 08:32 | Nephrology Progress Note ---
Date of Service December 14, 2021 Assessment & Plan (1) ESRD (end stage renal disease) on dialysis: Plan: * CXR films this am reviewed - improving CHF * Outpatient HD orders: [facility] MWF 3.5 hrs, 180 optiflux, Qb 350/ Qd 800, 2K bath. EDW 70 kg (old) * Will provide HD today for continued UF and to establish new EDW. Orders have been placed in EMR and HD RN notified * [facility] dialysis unit has been notified to reduce EDW to 63 kg (new) (2) Congestive heart failure: Plan: * Valvular heart disease including mod-severe , MR * Consider consultation w/ Cardiology to determine whether patient is candidate for TAVR Admission and Anticipated Discharge Date Admission Date: December 11, 2021 Subjective Ms. Bolivar was evaluated in her hospital room this morning. She was breathing comfortably on O2 at 2 L/min NC. She denied angina. Review of Systems Constitutional: no fever Eyes: no worsening vision and no problem reported Ear, Nose, Mouth, Throat: no problem reported Respiratory: no cough and no dyspnea Cardiovascular: no chest pain, no palpitations and no edema Gastrointestinal: no abdominal pain, no nausea, no vomiting and no diarrhea/loose stools Genitourinary: no dysuria and no hematuria Musculoskeletal: no back pain Integumentary: no rash Neurologic: no confusion Physical Exam Constitutional: not in distress Eyes: PERRL, conjunctivae normal, anicteric sclerae ENMT: external ear and nose normal, oropharynx normal Neck: trachea midline, no thyromegaly Respiratory: normal respiratory effort, lungs clear to auscultation Cardiovascular: RRR, no murmur, no edema Extremities: + AV fistula (+ bruit) Gastrointestinal (Abdomen): normal bowel sounds, soft, nontender, no hepatosplenomegaly Skin: no rashes, warm and dry Neurologic: awake; not confused Results & Data ([facility]) Vital Signs (Past 12 Hours) Vital Signs Temp Pulse Pulse Pulse Resp BP Pulse Ox 12/14/21 08:00 65 12/14/21 08:00 12/14/21 07:38 36.3 C L 68 16 155/67 H 94 12/14/21 03:00 36.9 C 68 18 142/59 H 99 12/13/21 23:00 36.3 C L 72 18 140/76 98 O2 Del Method O2 Flow Rate 12/14/21 08:00 12/14/21 08:00 Nasal Cannula 2 12/14/21 07:38 Nasal Cannula 2 12/14/21 03:00 Nasal Cannula 12/13/21 23:00 Laboratory Results Laboratory Tests 12/14/21 12/14/21 05:34 05:34 WBC 6.62 Hgb 11.7 L Hct 40.6 Plt Count 183 Sodium 135 L Potassium 4.5 Chloride 100 Carbon Dioxide 27 BUN 42 H Creatinine 2.55 H Glucose 133 H Diagnostic Findings 12/14/21 CXR: 1. Cardiomegaly with evidence of congestive failure and pulmonary edema. This is similar to yesterday. 2. Layering pleural effusions with dependent consolidation PG Care Time/CCT Total # of Minutes Spent Total Time Spent with Patient: Total time spent is greater than 50% in coordination of care (as documented) at patient's floor/unit and/or counseling patient: Coding Level of Care Code 10204 Subseq Hosp Care Lvl 3 Diagnoses ESRD (end stage renal disease) on dialysis N18.6; Z99.2 Congestive heart failure I50.9
[2021-12-14] MEDS: ISOSORBIDE MONO EXTENDED REL 60 MG TABCR PO SCH (09:04)
[2021-12-14] MEDS: hydrALAZINE TAB 50 MG TAB PO SCH ×3 (09:05→21:35)
[2021-12-14] MEDS: CHOLECALCIFEROL 1,000 UNITS 25 MCG TAB PO SCH ×2 (09:06→21:40)
[2021-12-14] MEDS: amLODIPine BESYLATE 5 MG TAB PO SCH ×2 (09:06→21:41)
[2021-12-14] MEDS: SEVELAMER HCL 800 MG TABLET PO SCH ×3 (09:07→17:10)
[2021-12-14] MEDS: HEPARIN SOD 5,000 UNIT/0.5 ML VIAL SQ SCH ×2 (09:08→21:36)
[2021-12-14] MEDS: DOCUSATE SODIUM 100 MG CAP PO SCH ×2 (09:08→21:45)
[2021-12-14] MEDS: ASCORBIC ACID 500 MG TAB PO SCH (09:08)
[2021-12-14] MEDS: ASPIRIN 81 MG ECTAB PO SCH (09:08)
[2021-12-14] MEDS: CALCIUM 600MG + VIT D 400 IU TAB PO SCH (09:08)
[2021-12-14] MEDS: MULTIVITAMIN TAB PO SCH (09:14)
[2021-12-14] MEDS: INSULIN ASPART PER UNIT SC SCH ×4 (09:16→21:28)
[2021-12-14] MEDS: CEROVITE ADV FORMULA TAB PO SCH (09:17)
[2021-12-14] MEDS: VENLAFAXINE HCL XR 150 MG CAPXR PO SCH (09:17)
[2021-12-14] MEDS: LANTUS PER UNIT CHARGE SQ SCH ×2 (09:51→21:28)
--- NOTE | 2021-12-14 10:16 | XRay Report ---
SINGLE VIEW CHEST CLINICAL HISTORY: Congestive heart failure. FINDINGS: An AP, portable, upright chest radiograph is compared to study dated 12/13/2021. The heart is enlarged noting atherosclerotic calcification of the thoracic and. There is pulmonary vascular conge stion. Bilateral airspace opacities are consistent with pulmonary edema. There are layering pleural e ffusions with dependent consolidation. No pneumothorax is seen. The skeletal structures are osteopeni c. The bony thorax is grossly intact. IMPRESSION: 1. Cardiomegaly with evidence of congestive failure and pulmonary edema. This is similar to yesterday . 2. Layering pleural effusions with dependent consolidation Electronically signed by: Isai Baldwin M.D. 12/14/2021 10:14 AM
[2021-12-14] MEDS: HEPARIN SOD (PORCINE) 1000 UNIT/ML IV SCH ×2 (12:48→12:49)
--- NOTE | 2021-12-14 20:42 | Hospitalist Progress Note ---
Date of Service December 14, 2021 Assessment & Plan (1) Volume overload: Plan: I am concerned that much of her volume issues is indeed cardiac driven. Her EF on this admission's echo is worse than 6 months ago, and she has mod- severe . She has wall motion abnormalities on echo. She was seen by Dr Friedman in the [facility]iology clinic in 2020. A review of that note does not suggest any past h/o OR or CAD although CAD is listed as a diagnosis on her PMH list. Her volume status has improved with 3 serial HD sessions this week. However, if she indeed is having ischemia as suggested by echo, her volume status will continue to be problematic. I plan to formally consult cardiology tomorrow. Diagnostic cath to check coronaries? Valve gradient across AV can also be obtained as well if deemed necessary. Appreciate nephrology assistance. Check TSH/FT4 in am to be complete given h/o Graves. (2) Pulmonary edema: Plan: Improving. See #1 above. (3) Pleural effusion on right: Plan: 2nd to volume overloaded state from ESRD & systolic CHF. see above. her air movement on the right is poor - consideration of thoracentesis? alternative is just to be patient with serial HD treatments over time which should help. (4) ESRD (end stage renal disease) on dialysis: Plan: Typical outpatient schedule M/W/. s/p 3 serial treatments on 12/12, 12/13, and today. Appreciate nephrology assistance. BMP am. (5) Hypertension, uncontrolled: Plan: Continue amlodipine, hydralazine, and Imdur Continue with hemodialysis for fluid management BPs controlled last 48 hours with serial HD Should be on beta shelby given the concern for CAD/ischemic cardiomyopathy (6) Type 2 diabetes mellitus with insulin therapy: Plan: Continue Lantus as well as NovoLog SSI Controlled Hemoglobin A1c is 5.5% Continue with diabetic diet (7) DVT prophylaxis: Plan: Heparin SC BID (8) CAD (coronary artery disease): Plan: based on echo findings heavy concern for such. I can't find any record of a previous cardiac cath. Will consult cardiology tomorrow. Cont statin. Cont asa. Should be on BB. Is already on imdur, amlodipine. (9) Dyslipidemia: Plan: Cont statin (10) History of Graves' disease: Plan: noted check TSH and Ft4 in am (11) Unilateral AKA: Plan: right (12) Chronic systolic CHF (congestive heart failure): Plan: EF 45-50% on echo this admission. Was 60-65% in 06/2021. Ischemia and/or valvular disease (mod-severe ) likely to blame. Consult cards in am. (13) Ischemic cardiomyopathy: Plan: Concern for such. Wall motion abnormalities noted on echo this admission. Cards consult this weekend. Cont asa, statin, etc. (14) Aortic stenosis: Plan: mod-severe. see above. Admission and Anticipated Discharge Date Admission Date: December 11, 2021 Subjective patient is feeling better her dyspnea is improved she is not coughing she has a robust appetite had another HD session today w/o incident hopeful for d/c home soon with family tele overnight stable (NSR with ectopy; no a.fib) Review of Systems Review of Systems: gen - no fevers or chills cv - no cp, no pleuritic pain (although had a right sided pain earlier today that resolved), no orthopnea (was laying flat during the visit comfortably) pulm - no dyspnea at rest GI - no nausea, emesis or pain Physical Exam Physical Exam: gen - NAD, lying flat comfortably mouth - MMM neck - could not assess JVD due to laying flat heart - RR, irregular (ectopy), s1 s2, 2/6 systolic murmur RUSB lungs - decreased BS b/l bases much worse on right, some crackles b/l, occasional end-exp wheeze, apices clear; no increased work of breathing abd - soft NT ND BS+ ext - right AKA, left leg 2+ pulses and no edema psych - a/o x 3 Results & Data Results & Data ([facility]) Vital Signs (Past 12 Hours) Vital Signs Temp Pulse Pulse Pulse Resp BP BP 12/14/21 19:23 36.7 C 79 16 127/63 12/14/21 19:29 12/14/21 15:56 36.7 C 84 17 136/62 12/14/21 12:50 36.6 C 62 123/44 L 12/14/21 12:20 44 L 94/47 L 12/14/21 11:29 50 L 128/48 L 12/14/21 11:40 54 L 113/65 12/14/21 11:20 54 L 82/55 L 12/14/21 12:00 62 95/40 L 12/14/21 11:00 70 103/70 12/14/21 10:47 70 118/45 L 12/14/21 10:20 54 L 108/71 12/14/21 10:40 78 86/52 L 12/14/21 10:00 74 112/57 L 12/14/21 09:40 76 144/61 H 12/14/21 09:28 80 149/71 H 12/14/21 09:22 36.8 C 77 Pulse Ox Pulse Ox O2 Del Method O2 Del Method O2 Flow Rate 12/14/21 19:23 96 Nasal Cannula 2 12/14/21 19:29 95 Room Air 12/14/21 15:56 98 Nasal Cannula 1 12/14/21 12:50 12/14/21 12:20 12/14/21 11:29 12/14/21 11:40 12/14/21 11:20 12/14/21 12:00 12/14/21 11:00 12/14/21 10:47 12/14/21 10:20 12/14/21 10:40 12/14/21 10:00 12/14/21 09:40 12/14/21 09:28 12/14/21 09:22 PG Care Time/CCT Total # of Minutes Spent Total Time Spent with Patient: Total time spent is greater than 50% in coordination of care (as documented) at patient's floor/unit and/or counseling patient: Coding Level of Care Code 06636 Subseq Hosp Care Lvl 3 Diagnoses Volume overload E87.70 Pulmonary edema J81.1 Pleural effusion on right J90 ESRD (end stage renal disease) on dialysis N18.6; Z99.2 Hypertension, uncontrolled I10 Type 2 diabetes mellitus with insulin therapy E11.9; Z79.4 DVT prophylaxis Z29.9 CAD (coronary artery disease) I25.10 Dyslipidemia E78.5 History of Graves' disease Z86.39 Unilateral AKA S78.119A Chronic systolic CHF (congestive heart failure) I50.22 Ischemic cardiomyopathy I25.5 Aortic stenosis I35.0
[2021-12-14] MEDS: CEFEPIME 1,000 MG in SYRINGE 0 ML IV SCH (21:08)
[2021-12-14] MEDS: ATORVASTATIN 40 MG TAB PO SCH (21:41)
[2021-12-14] MEDS ORDERED: COUGH DROP (SUGAR FREE) LOZ 24 LOZ/1 BOX BUCCAL STA (23:38)
[2021-12-15] MEDS ORDERED: BENZONATATE 100 MG CAPSULE PO ONE (03:20)
[2021-12-15 05:58] LABS: Hematocrit (blood only) 37.7 % (34.1-44.9); Hemoglobin 11.1 g/dl (12.0-16.0); Mean Corpuscular Hemoglobin 25.4 pg (25.0-34.0); Mean Corpuscular Hgb Conc 29.4 g/dL (32.0-36.0); Mean Corpuscular Volume 86.3 fL (80.0-100.0); Mean Platelet Volume 10.5 fL (9.4-12.3); Platelet Count 186 K/uL (130-400); RDW Coefficient of Variation 19.7 % (11.5-14.5); RDW Standard Deviation 59.3 fL (36.4-46.3); Red Blood Count 4.37 M/uL (3.93-5.22); White Blood Count 5.52 K/ul (4.8-10.8)
[2021-12-15 06:26] LABS: BUN Creatinine Ratio 17.4 (10-20); Calcium 9.5 mg/dl (8.5-10.1); Creatinine Clr Calc Pharmacy 16.9 ml/min; Est GFR (African American) 19.7 ml/min; Potassium 4.2 mmol/L (3.5-5.1)
[2021-12-15] MEDS: INSULIN ASPART PER UNIT SC SCH ×4 (08:46→20:43)
[2021-12-15] MEDS: amLODIPine BESYLATE 5 MG TAB PO SCH ×2 (09:10→20:45)
[2021-12-15] MEDS: DOCUSATE SODIUM 100 MG CAP PO SCH ×2 (09:11→20:45)
[2021-12-15] MEDS: SEVELAMER HCL 800 MG TABLET PO SCH ×3 (09:11→17:38)
[2021-12-15] MEDS: CHOLECALCIFEROL 1,000 UNITS 25 MCG TAB PO SCH ×2 (09:11→20:44)
[2021-12-15] MEDS: ISOSORBIDE MONO EXTENDED REL 60 MG TABCR PO SCH (09:11)
[2021-12-15] MEDS: hydrALAZINE TAB 50 MG TAB PO SCH ×3 (09:11→20:44)
[2021-12-15] MEDS: CALCIUM 600MG + VIT D 400 IU TAB PO SCH (09:11)
[2021-12-15] MEDS: HEPARIN SOD 5,000 UNIT/0.5 ML VIAL SQ SCH (09:11)
[2021-12-15] MEDS: VENLAFAXINE HCL XR 150 MG CAPXR PO SCH (09:12)
[2021-12-15] MEDS: ASCORBIC ACID 500 MG TAB PO SCH (09:12)
[2021-12-15] MEDS: ASPIRIN 81 MG ECTAB PO SCH (09:12)
[2021-12-15] MEDS: CEROVITE ADV FORMULA TAB PO SCH (09:12)
[2021-12-15] MEDS: MULTIVITAMIN TAB PO SCH (09:12)
[2021-12-15] MEDS: LANTUS PER UNIT CHARGE SQ SCH ×2 (09:21→20:42)
--- NOTE | 2021-12-15 12:26 | Cardiology Consultation ---
Date of Consultation December 15, 2021 Assessment & Plan (1) Aortic stenosis: (2) Heart failure with mid-range ejection fraction: (3) End-stage renal disease on hemodialysis: (4) Bilateral pleural effusion: Plan 81-year-old woman with multiple comorbidities including aortic stenosis and moderately reduced left ventricular systolic function who presented with acute on chronic congestive heart failure and who appears to have responded very favorably to volume unloading with hemodialysis. As noted, she was comfortable lying flat and had no complaints at the time of my evaluation. In the absence of evidence for critical aortic stenosis, and given her responsiveness to volume unloading, doubt that she would see immediate benefit from transcatheter aortic valve replacement. There is some dispute on prior echocardiogram/that the severity of her aortic stenosis, but on exam she seems to have a readily audible aortic closure sound, weighing against critical disease. At this point time, would not see a pressing need to proceed with valve replacement, further evaluation (possibly transesophageal echocardiogram) could be performed as an outpatient. No specific medication recommendations. Continued monitoring and adjustment of her vasoactive regimen will likely be necessary given her hemodynamic lability. Defer to nephrology team for close management of her BP. No evidence of major myocardial ischemia during her current hospital stay or based on chronic symptoms. Would recommend outpatient cardiology follow-up with Dr. Hamm, he knows her well and could best determining the timing/appropriateness of further interventions. History of Present Illness Reason for Consultation: , ?CAD Requesting Physician: Miguel Angel Gaitan Attending Physician: Miguel Angel Gaitan History of Present Illness 81-year-old woman with moderate to severe aortic stenosis (calculated valve area 1.1 cm), moderate to severe mitral regurgitation, advanced kidney disease (on hemodialysis), diabetes mellitus (on insulin) and heart failure with midrange ejection fraction (EF varies between 40 and 60%) who was admitted 12/11/2021 with pulmonary edema/hypoxia/pleural effusions. She has undergone hemodialysis during this hospital stay with rather labile blood pressure but gradual volume unloading (down 10 pounds from admission). Of note, she also had evidence of heart failure during hospitalizations in July and August of this year. Due to recurrent heart failure, there is a question as to whether she would benefit from transcatheter aortic valve replacement. At the time of my evaluation today, she was lying flat and was comfortable. She denied any chest pain or dyspnea. Her exam was notable for none elevated neck veins and an intact aortic closure sound (weighing against critical aortic stenosis). Lungs show dullness at the bases but were generally clear. She noted that she was anxious to return home. Allergies Allergy/AdvReac Type Severity Reaction Status Date / Time codeine AdvReac Mild DOES NOT Verified 12/11/21 21:08 [address] THE WAY IT MAKES HER FEEL. Home Medications Medication Instructions Recorded Confirmed Type ascorbic acid (vitamin C) 500 mg 500 mg PO QAM 12/10/18 12/11/21 History tablet polyethylene glycol 3350 17 17 gm PO DAILY PRN Constipation 12/10/18 12/11/21 History gram/dose oral powder venlafaxine 150 mg 150 mg PO QAM 12/10/18 12/11/21 History capsule,extended release 24 hr calcium carbonate 600 mg-vitamin 2 tab PO QAM 03/09/20 12/11/21 History D3 10 mcg (400 unit) chewable tablet (Calcium 600 with Vitamin D3) isosorbide mononitrate 120 mg 120 mg PO QAM #90 tabs 10/25/20 12/11/21 Rx tablet,extended release 24 hr cholecalciferol (vitamin D3) 25 50 mcg PO BID 12/27/20 12/11/21 History mcg (1,000 unit) capsule multivitamin 1 cap PO DAILY 05/18/21 12/11/21 History atorvastatin 80 mg tablet 80 mg PO HS #90 tabs 05/29/21 12/11/21 Rx vitamins A,C,F-fenn-moecbk 14,320 1 cap PO BID 06/14/21 12/11/21 History unit-226 mg-200 unit capsule (PreserVision AREDS) insulin aspart U-100 100 unit/mL 7 unit (0.07 mL) subcut TIDM #30 mL 06/22/21 12/11/21 Rx (3 mL) subcutaneous pen (Novolog Flexpen U-100 Insulin aspart) hydralazine 50 mg tablet 100 mg PO TID #90 tabs 07/23/21 12/11/21 Rx pen needle, diabetic 32 gauge x #400 ea 09/25/21 11/20/21 Rx 5/32" (BD Ultra-Fine [place] Pen Needle) betamethasone dipropionate 0.05 % 1 applic topical DIRECTED PRN 11/20/21 12/11/21 History topical cream Skin Irritation insulin glargine 100 unit/mL (3 12 unit (0.12 mL) subcut QPM #15 mL 11/27/21 12/11/21 Rx mL) subcutaneous pen (Lantus Solostar U-100 Insulin) acetaminophen 500 mg tablet 1,000 mg PO Q8H PRN Pain 12/11/21 12/11/21 History (Tylenol Extra Strength) amlodipine 5 mg tablet 5 mg PO BID 12/11/21 12/11/21 History aspirin 81 mg tablet,delayed 81 mg PO DAILY 12/11/21 12/11/21 History release (Adult Aspirin Regimen) docusate sodium 100 mg capsule 100 mg PO BID 12/11/21 12/11/21 History menthol 0.44 %-zinc oxide 20.6 % 1 applic topical TID PRN NEEDED 12/11/21 12/11/21 History topical ointment (Calmoseptine) sevelamer HCl 800 mg tablet 800 mg PO TID 12/11/21 12/11/21 History Patient History Medical History Anemia AV fistula LEFT CAD (coronary artery disease) Carotid artery disease less than 50% ICA stenosis per 08/2016 carotid duplex CHF (congestive heart failure) Chronic gastroesophageal reflux disease Chronic kidney disease on HD Dehiscence of wound Depression Diabetic peripheral neuropathy associated with type 2 diabetes mellitus Dialysis patient 3XWK (M/W/F) [facility]>FOLLOWED BY DR. HATHAWAY Dyslipidemia Gallstones Generalized osteoarthritis of multiple sites Graves disease H/O malignant neoplasm of uterine body Hiatal hernia History of kidney stones Hypertension Irregular heart beat metoprolol for this per pt Lab test negative for COVID-19 virus Macular degeneration Moderate calcific aortic stenosis Multinodular goiter (nontoxic) Multiple thyroid nodules Obesity Osteopenia Patella fracture Secondary hyperparathyroidism Sepsis Sleep apnea No device Type 2 diabetes mellitus with insulin therapy Surgical History H/O abdominoplasty H/O basal cell carcinoma excision H/O shoulder surgery Right History of appendectomy History of cataract surgery R/L History of colonoscopy History of esophagogastroduodenoscopy (EGD) History of hip surgery Closed intertrochanteric fracture of left femur 04/10/2021: 02/16/2021: Grade 4 view, MAC#3, ETT#7.0. No issues per anesthesia postop progress note. History of open reduction and internal fixation (ORIF) procedure right patella 05/18/2021: LMA#4 atraumatic + PNB. No issues per anesthesia postop progress note. History of tonsillectomy History of tooth extraction S/P complete hysterectomy Status post knee surgery 05/31/21 Dr. Heriberto Ly- Incision and Debridement Right Knee, Right Open Reduction Internal Fixation Patella, Hardware Removal(Right) Family History Father Diabetes Lung cancer Family history of diabetes mellitus Mother , in a home fire Hypertension Family history of diabetes mellitus Daughter Family history of diabetes mellitus Son Family history of diabetes mellitus Other No family history of adverse response to anesthesia Denies family history of Ovarian cancer Prostate cancer Myocardial infarction Breast cancer Colorectal cancer Social History Smoking Status: Former smoker Tobacco Type: Cigarettes Second Hand Exposure: No; Hx Alcohol Use: No Hx Substance Use: No Preferred Language: Azerbaijani Communication Ability: Effective Visual Impairment: No Limitations Hearing Ability: Normal Transformation Analyst Required: No Beliefs That Will Affect Care: None marital status: / Current Living Situation: Family Current Living Situation Comment: Son and Daughter in law. current occupational status: retired Other Information That Helps Us Care for You: No Feels Safe at Home: Yes Safety Concerns: Feels Safe At This Time Safety Concerns Comment: unsteady at times Childhood Exposure to Second-Hand Smoke: Yes Dental Care, Regularly: No Physical Activity Frequency: Does not Exercise Seatbelt Use: always Sunscreen Use: No Assistive Devices: Walker and Wheelchair Physical Exam Physical Exam: Elderly white female who appears comfortable. Weight down 10 pounds during this hospitalization. BP labile, currently normotensive (132/67 mmHg). Heart rate 80 to 90 bpm. Skin: no generalized ecchymoses or generalized lesions. HEENT: unremarkable. Neck: Jugular venous pulse normal to slightly reduced (had to lie her flat to visualize), bilateral transmitted carotid murmur. Lungs: No accessory muscle use. Dullness both bases but generally clear. No crackles or wheezing. Cardiac: regular rhythm, readily audible aortic closure sound, 3/6 crescendo decrescendo systolic ejection murmur rating to the carotids and across the precordium, 2/6 apical holosystolic murmur, no diastolic murmur or distinct gallop. Abdomen: benign. Extremities: Right leg amputation, left leg currently with no edema. Neurologic: normal affect and conversation, grossly nonfocal. Results & Data ([facility]) Vital Signs (Past 12 Hours) Vital Signs Temp Pulse Pulse Pulse Resp BP Pulse Ox 12/15/21 11:14 99.7 F H 80 17 132/67 93 12/15/21 08:00 89 12/15/21 08:00 12/15/21 07:36 99.1 F 79 17 176/63 H 93 12/15/21 03:09 99.0 F 97 H 20 132/64 92 O2 Del Method O2 Flow Rate 12/15/21 11:14 Room Air 12/15/21 08:00 12/15/21 08:00 Nasal Cannula 2 12/15/21 07:36 Room Air 12/15/21 03:09 Room Air Laboratory Results Troponin 29 and 32. Sodium 135, potassium 4.2, BUN 45, creatinine 2.58. Diagnostic Findings ECG on admission showed sinus rhythm with PVCs, otherwise unremarkable. Echocardiogram this admission showed EF 45-50% with moderate to severe aortic stenosis (calculated valve area 1.1 cm unchanged over the past year or so), moderate to severe mitral regurgitation, and moderate pulmonary hypertension. Although an echocardiogram in June showed an EF of 60-65%, echocardiograms in 2019 and 2020 both showed EF of 45-50%. Chest x-rays last year were fairly unremarkable, most of this year she has had pleural effusions and some degree of persistent pulmonary edema. PG Care Time/CCT Total # of Minutes Spent Total Time Spent with Patient: Total time spent is greater than 50% in coordination of care (as documented) at patient's floor/unit and/or counseling patient: Coding Level of Care Code 87707 Inpt Consult Level 4 Diagnoses Aortic stenosis I35.0 Heart failure with mid-range ejection fraction I50.9 End-stage renal disease on hemodialysis N18.6; Z99.2 Bilateral pleural effusion J90
--- NOTE | 2021-12-15 12:34 | Nephrology Progress Note ---
Date of Service December 15, 2021 Assessment & Plan (1) ESRD (end stage renal disease) on dialysis: (2) Volume overload: (3) Aortic stenosis: (4) Status post above-knee amputation of right lower extremity: Plan 81-year-old F with ESRD on HD MWF at [facility], admitted with volume overload after she presented to ER with SOB. CXR shower Rt pL effusion and pulmonary edema. On admission her weight was 70 kg and she had 3 days back to back dialysis and her dry weight brought down to 63 kg. She had dialysis yesterday and overall she is feeling well, has been lying flat without any symptom. Has and MR and there was concern that her severe is contributing to volume issue. She was evaluated by Cardiology and felt that her aortic stenosis is not critical and unlikely to have major impact on volume status with any intervention for at this time but can be evaluated again in future if there is issues with volume overload. Of course with her significant comorbidities any intervention will be associated with significant risk. Overall she is doing much better with improvement in her volume status, but there was no significant change in right-sided pleural effusion despite improving volume status and having dialysis. -- May benefit from right-sided thoracentesis. -- will plan for dialysis this afternoon if no plan for discharge, otherwise next dialysis will be Friday at outpatient dialysis unit. Will follow Admission and Anticipated Discharge Date Admission Date: December 11, 2021 Jason Masters was seen and examined in her room this morning. Overall she feels comfortable she was lying flat, denies any shortness of breath or chest pain. She denied any fever or chills but there was recorded temperature of 37.6 this morning. Had lweb-yd-alcr dialysis for last 3 days and her weight down to more than 10 lb from her admission weight. Chest x-ray yesterday showed persistent pulmonary edema and right-sided pleural effusion. Review of Systems Review of Systems: Detailed review of system was otherwise unremarkable ex cept mentioned above in HPI. Physical Exam Constitutional: WD/WN, vitals as above no acute distress Eyes: + anicteric sclerae ENMT: Ears: no hearing impairment Neck: normal visual inspection Respiratory: normal respiratory effort; no respiratory distress Auscultation: + diminished lung sounds ( Right lower lobe); no crackles and no wheezes Cardiovascular: Rate/Rhythm: regular rate and regular rhythm Heart Sounds: normal S1 and normal S2 Extremities: no edema Skin: no rashes Neurologic: no focal motor deficits and not confused Psychiatric: Orientation: alert and oriented x 3 Results & Data ([facility]) Vital Signs (Past 12 Hours) Vital Signs Temp Pulse Pulse Pulse Resp BP Pulse Ox 12/15/21 11:14 37.6 C H 80 17 132/67 93 12/15/21 08:00 89 12/15/21 08:00 12/15/21 07:36 37.3 C 79 17 176/63 H 93 12/15/21 03:09 37.2 C 97 H 20 132/64 92 O2 Del Method O2 Flow Rate 12/15/21 11:14 Room Air 12/15/21 08:00 12/15/21 08:00 Nasal Cannula 2 12/15/21 07:36 Room Air 12/15/21 03:09 Room Air PG Care Time/CCT Total # of Minutes Spent Total Time Spent with Patient: Total time spent is greater than 50% in coordination of care (as documented) at patient's floor/unit and/or counseling patient: Coding Level of Care Code 14424 Subseq Hosp Care Lvl 3 Diagnoses ESRD (end stage renal disease) on dialysis N18.6; Z99.2 Volume overload E87.70 Aortic stenosis I35.0 Status post above-knee amputation of right lower extremity Z89.611
[2021-12-15] MEDS: BENZONATATE 100 MG CAPSULE PO SCH ×2 (17:39→20:43)
--- NOTE | 2021-12-15 20:09 | Hospitalist Progress Note ---
Date of Service December 15, 2021 Assessment & Plan (1) Fever: Plan: questionable fever this am, but then had confirmed fever of >38 this evening. has h/o bacteremia in the past. blood cx's x 2 sets. given her respiratory issues will recheck a COVID-19 test as well. (2) Volume overload: Plan: Improving with serial HD sessions. Session #4 today with 10-15 pounds of weight removed since earlier this week. TSH wnl. Formal consult by cardiology appreciated - volume overload issues not felt to be driven by valvular heart disease (moderate-severe ). Ischemia possible but felt unlikely per cardiology. Appreciate cards/nephro consults & assistance. I did consult pulmonary for consideration of thoracentesis on right. She has had thoracentesis in the past. (3) Pulmonary edema: Plan: Improving. See #1 above. (4) Pleural effusion on right: Plan: 2nd to volume overloaded state from ESRD & systolic CHF. see above. pulmonary to see in consult tomorrow for consideration of thoracentesis. hold heparin SC. (5) ESRD (end stage renal disease) on dialysis: Plan: Typical outpatient schedule M/W/F. s/p 4 serial treatments on 12/12, 12/13, 12/14, and again today. Appreciate nephrology assistance. BMP am. (6) Hypertension, uncontrolled: Plan: Continue amlodipine, hydralazine, and Imdur Continue with hemodialysis for fluid management BPs controlled last 48 hours with serial HD Consider low-dose beta shelby (7) Type 2 diabetes mellitus with insulin therapy: Plan: Continue Lantus as well as NovoLog SSI Controlled Hemoglobin A1c is 5.5% Continue with diabetic diet (8) DVT prophylaxis: Plan: Heparin SC BID - but hold in prep for possible thoracentesis tomorrow (9) CAD (coronary artery disease): Plan: I can't find any record of a previous cardiac cath. Saw Dr Hamm in 2020 - no mention of formal dx of CAD. Wall motion abnormalities are seen on echo. Thus, can't rule out underlying CAD. Cardiology saw in consult today - defer on w/u for CAD at this time. Cont statin. Cont asa. Should be on BB. Is already on imdur, amlodipine. (10) Dyslipidemia: Plan: Cont statin (11) History of Graves' disease: Plan: noted TSH wnl today (12) Unilateral AKA: Plan: right (13) Chronic systolic CHF (congestive heart failure): Plan: EF 45-50% on echo this admission. Was 60-65% in 06/2021. Cardiology consult today appreciated. She will need close f/u with Dr Hamm post-d/c. Her is not felt to be causing her current volume overloaded state. (14) Ischemic cardiomyopathy: Plan: Wall motion abnormalities noted on echo this admission. Cont asa, statin, etc. Cards consult appreciated. (15) Aortic stenosis: Plan: mod-severe. see above. Plan pt's daughter extensively updated by phone this evening plan of care discussed fever w/u discussed including COVID testing Admission and Anticipated Discharge Date Admission Date: December 11, 2021 Subjective patient lying in bed (flat) comfortably hoping to go home but understands that she continues with volume overload and agreeable to staying I spoke directly to Dr Davidson from cardiology and Dr Shipman from nephrology - Dr Shipman advises another HD session today patient with ?low-grade temp of 37.6 this am but patient denies any infectious symptoms appetite today is not as good as previous, however mild cough at times denies chest pain denies any pleuritic pain tele stable overnight Review of Systems Review of Systems: gen - ?fever this am; no rigors cv - no chest pain, no orthopnea pulm - no dyspnea at rest GI - no nausea or vomiting Physical Exam Physical Exam: gen - NAD, comfortable, looks same as yesterday mouth - MMM neck - no JVD heart - RR, irregular (ectopy), s1 s2, 2/6 systolic murmur RUSB lungs - decreased BS b/l bases much worse on right, some crackles b/l; apices clear; no increased work of breathing abd - soft NT ND BS+ ext - right AKA, left leg 2+ pulses and no edema psych - a/o x 3 Results & Data Results & Data ([facility]) Vital Signs (Past 12 Hours) Vital Signs Temp Pulse Pulse Pulse Resp BP BP 12/15/21 19:51 38.2 C H 105 H 16 151/65 H 12/15/21 19:24 12/15/21 17:28 36.9 C 81 157/64 H 12/15/21 16:20 53 L 115/50 L 12/15/21 16:40 55 L 118/41 L 12/15/21 16:00 64 105/62 12/15/21 15:40 58 L 120/68 12/15/21 15:20 60 118/55 L 12/15/21 15:00 59 L 120/54 L 12/15/21 14:40 64 131/51 L 12/15/21 14:20 64 137/58 L 12/15/21 14:03 81 159/66 H 12/15/21 13:55 37.3 C 83 12/15/21 11:14 36.7 C 80 17 132/67 Pulse Ox O2 Del Method 12/15/21 19:51 95 12/15/21 19:24 Room Air 12/15/21 17:28 12/15/21 16:20 12/15/21 16:40 12/15/21 16:00 12/15/21 15:40 12/15/21 15:20 12/15/21 15:00 12/15/21 14:40 12/15/21 14:20 12/15/21 14:03 12/15/21 13:55 12/15/21 11:14 93 Room Air Laboratory Results Laboratory Results - last 24 hr 12/14/21 12/15/21 12/15/21 20:09 05:34 05:34 WBC 5.52 RBC 4.37 Hgb 11.1 L Hct 37.7 MCV 86.3 MCH 25.4 MCHC 29.4 L RDW Std Deviation 59.3 H RDW Coeff of Chris 19.7 H Plt Count 186 MPV 10.5 Sodium 135 L Potassium 4.2 Chloride 101 Carbon Dioxide 25 Anion Gap 9 BUN 45 H Creatinine 2.58 H Est Cr Clr Drug Dosing 16.9 Est GFR ( Amer) 19.7 Est GFR (Non-Af Amer) 17.0 BUN/Creatinine Ratio 17.4 Glucose 118 H POC Glucose 136 H Calcium 9.5 TSH 12/15/21 12/15/21 12/15/21 06:39 06:50 07:29 WBC RBC Hgb Hct MCV MCH MCHC RDW Std Deviation RDW Coeff of Chris Plt Count MPV Sodium Potassium Chloride Carbon Dioxide Anion Gap BUN Creatinine Est Cr Clr Drug Dosing Est GFR ( Amer) Est GFR (Non-Af Amer) BUN/Creatinine Ratio Glucose POC Glucose 108 H 104 H Calcium TSH 1.442 12/15/21 12/15/21 11:21 17:39 WBC RBC Hgb Hct MCV MCH MCHC RDW Std Deviation RDW Coeff of Chris Plt Count MPV Sodium Potassium Chloride Carbon Dioxide Anion Gap BUN Creatinine Est Cr Clr Drug Dosing Est GFR ( Amer) Est GFR (Non-Af Amer) BUN/Creatinine Ratio Glucose POC Glucose 161 H 107 H Calcium TSH PG Care Time/CCT Total # of Minutes Spent Total Time Spent with Patient: Total time spent is greater than 50% in coordination of care (as documented) at patient's floor/unit and/or counseling patient: Coding Level of Care Code 24239 Subseq Hosp Care Lvl 3 Diagnoses Fever R50.9 Volume overload E87.70 Pulmonary edema J81.1 Pleural effusion on right J90 ESRD (end stage renal disease) on dialysis N18.6; Z99.2 Hypertension, uncontrolled I10 Type 2 diabetes mellitus with insulin therapy E11.9; Z79.4 DVT prophylaxis Z29.9 CAD (coronary artery disease) I25.10 Dyslipidemia E78.5 History of Graves' disease Z86.39 Unilateral AKA S78.119A Chronic systolic CHF (congestive heart failure) I50.22 Ischemic cardiomyopathy I25.5 Aortic stenosis I35.0
[2021-12-15] MEDS: ATORVASTATIN 40 MG TAB PO SCH (20:43)
--- NOTE | 2021-12-15 22:37 | Communication Note ---
Date of Service: December 15, 2021 Notified by nursing about covid test resulting positive. Adding isolation precautions. Patient has fever 38.2C and is documented as 95% sat on room air. Deferring covid management to day provider.
--- NOTE | 2021-12-16 08:58 | XRay Report ---
XR chest 1V portable HISTORY: Shortness of breath. recent CHF, now with COVID-19 COMPARISON: Chest 12/14/2021. FINDINGS: There are low lung volumes. No pneumothorax. The heart remains mildly enlarged. Pulmonary e fabio and small bilateral pleural effusions have improved. Patchy bibasilar densities have also improv ed in the interval. Advanced degenerative changes within the shoulders. IMPRESSION: Interval improvement in the pulmonary edema, small bilateral pleural effusions, and bibasilar densiti es. ACT 112: Negative or not required by law. Electronically signed by: Carlito Eugene M.D. 12/16/2021 8:56 AM
[2021-12-16] MEDS: INSULIN ASPART PER UNIT SC SCH ×4 (09:35→20:14)
[2021-12-16] MEDS: LANTUS PER UNIT CHARGE SQ SCH ×2 (09:41→21:15)
[2021-12-16] MEDS: amLODIPine BESYLATE 5 MG TAB PO SCH ×2 (09:43→21:17)
[2021-12-16] MEDS: SEVELAMER HCL 800 MG TABLET PO SCH ×3 (09:43→16:57)
[2021-12-16] MEDS: ASPIRIN 81 MG ECTAB PO SCH (09:44)
[2021-12-16] MEDS: ASCORBIC ACID 500 MG TAB PO SCH (09:44)
[2021-12-16] MEDS: CALCIUM 600MG + VIT D 400 IU TAB PO SCH (09:45)
[2021-12-16] MEDS: BENZONATATE 100 MG CAPSULE PO SCH ×3 (09:45→21:20)
[2021-12-16] MEDS: CHOLECALCIFEROL 1,000 UNITS 25 MCG TAB PO SCH ×2 (09:46→21:16)
[2021-12-16] MEDS: hydrALAZINE TAB 50 MG TAB PO SCH ×3 (09:46→21:16)
[2021-12-16] MEDS: DOCUSATE SODIUM 100 MG CAP PO SCH ×3 (09:46→21:16)
[2021-12-16] MEDS: ISOSORBIDE MONO EXTENDED REL 60 MG TABCR PO SCH (09:47)
[2021-12-16] MEDS: MULTIVITAMIN TAB PO SCH (09:48)
[2021-12-16] MEDS: CEROVITE ADV FORMULA TAB PO SCH (09:48)
[2021-12-16] MEDS: VENLAFAXINE HCL XR 150 MG CAPXR PO SCH (09:49)
--- NOTE | 2021-12-16 10:23 | Cardiology Progress Note ---
Date of Service December 16, 2021 Assessment & Plan (1) Aortic stenosis: (2) Heart failure with mid-range ejection fraction: (3) End-stage renal disease on hemodialysis: (4) Bilateral pleural effusion: Plan 81-year-old woman with multiple comorbidities including aortic stenosis and m oderately reduced left ventricular systolic function who presented with acute on chronic congestive heart failure and who appears to have responded very favorably to volume unloading with hemodialysis. She continues to do well, but unfortunately developed low-grade fever and was diagnosed with COVID overnight. Appears euvolemic, maintain current weight with intermittent hemodialysis. Doubt aortic stenosis plays a major role, obviously any evaluation will need to be deferred until she recovers from COVID. Would recommend outpatient cardiology follow-up with Dr. Hamm, he knows her well and could best determining the timing/appropriateness of further interventions. Will sign off, please contact [facility] cardiology if she has any additional cardiac issues. Admission and Anticipated Discharge Date Admission Date: December 11, 2021 Subjective No new complaints. She denies chest pain or dyspnea. Lying flat. Weight essentially unchanged overnight. Telemetry shows sinus rhythm with occasional mild sinus tachycardia, heart rate mostly 70 to 90 bpm. Physical Exam Physical Exam: No distress, lying flat. BP 150/66 mmHg. Pulse 95 bpm and regular with ectopy. Respirations 20 but unlabored. Full exam not performed (COVID-positive) Results & Data ([facility]) Vital Signs (Past 12 Hours) Vital Signs Temp Pulse Pulse Resp BP Pulse Ox O2 Del Method 12/16/21 07:51 99.7 F H 95 H 20 150/66 H 91 Room Air 12/16/21 03:00 98.6 F 73 18 137/60 93 12/16/21 00:00 98.2 F 89 18 148/55 H 93 PG Care Time/CCT Total # of Minutes Spent Total Time Spent with Patient: Total time spent is greater than 50% in coordination of care (as documented) at patient's floor/unit and/or counseling patient: Coding Level of Care Code 60336 Subseq Hosp Care Lvl 3 Diagnoses Aortic stenosis I35.0 Heart failure with mid-range ejection fraction I50.9 End-stage renal disease on hemodialysis N18.6; Z99.2 Bilateral pleural effusion J90
--- NOTE | 2021-12-16 11:48 | Nephrology Progress Note ---
Date of Service December 16, 2021 Assessment & Plan (1) ESRD (end stage renal disease) on dialysis: (2) Volume overload: (3) Aortic stenosis: (4) Status post above-knee amputation of right lower extremity: Plan 81-year-old F with ESRD on HD MWF at [facility], admitted with volume overload after she presented to ER with SOB. CXR shower Rt pL effusion and pulmonary edema. On admission her weight was 70 kg and she had 3 days back to back dialysis and her dry weight brought down to 63 kg. She had dialysis yesterday and overall she is feeling well, has been lying flat without any symptom. Has and MR and there was concern that her severe is contributing to volume issue. She was evaluated by Cardiology and felt that her aortic stenosis is not critical and unlikely to have major impact on volume status with any intervention for at this time but can be evaluated again in future if there is issues with volume overload. Of course with her significant comorbidities any intervention will be associated with significant risk. Diagnosed with COVID on 12/15/21 Overall she is doing well with improvement in her volume status, but there was no significant change in right-sided pleural effusion despite improving volume status and having dialysis. --will plan for dialysis tomorrow as MWF schedule --monitor CBC, electrolytes Will follow Admission and Anticipated Discharge Date Admission Date: December 11, 2021 Jason Masters has been overall feeling well, had HD yesterday, no significant SOB, had fever yesterday and now COVID positive. Direct physical exam was not done, discussed with care team. Results & Data ([facility]) Vital Signs (Past 12 Hours) Vital Signs Temp Pulse Pulse Resp BP Pulse Ox O2 Del Method 12/16/21 11:17 37.5 C 75 18 153/70 H 93 Room Air 12/16/21 10:21 Room Air 12/16/21 07:51 37.6 C H 95 H 20 150/66 H 91 Room Air 12/16/21 03:00 37.0 C 73 18 137/60 93 12/16/21 00:00 36.8 C 89 18 148/55 H 93 PG Care Time/CCT Total # of Minutes Spent Total Time Spent with Patient: Total time spent is greater than 50% in coordination of care (as documented) at patient's floor/unit and/or counseling patient: Coding Level of Care Code 88324 Subseq Hosp Care Lvl 2 Diagnoses ESRD (end stage renal disease) on dialysis N18.6; Z99.2 Volume overload E87.70 Aortic stenosis I35.0 Status post above-knee amputation of right lower extremity Z89.611
--- NOTE | 2021-12-16 14:56 | XRay Report ---
XR chest 1V portable HISTORY: 81 years-old Female pigtail cath status post placement of a right-sided pleural drainage ca theter COMPARISON: Chest radiograph 12/16/2021 TECHNIQUE: AP view of the chest FINDINGS: Cardiac silhouette is enlarged. Pulmonary vascular congestion with interstitial coarsening redemonstr ated. Trace right and small left pleural effusions with persistent bibasilar consolidation. The right pleural effusion has decreased in size from prior. A pleural drainage catheter projects over the rig ht lung base. A small right-sided pneumothorax is present with pleural separation at the right lung b ase measuring up to approximately 2.0 cm. Degenerative changes of the shoulders and spine. IMPRESSION: 1. Status post placement of a right-sided pleural catheter. Small right-sided hydropneumothorax with decreased pleural fluid compared to the study earlier today. 2. Cardiomegaly with pulmonary edema, persistent small left pleural effusion with bibasilar consolida tion. ACT 112: Negative or not required by law. The above report was generated using voice recognition software. It may contain grammatical, syntax o r spelling errors. Electronically signed by: All Osullivan M.D. 12/16/2021 2:55 PM
--- NOTE | 2021-12-16 15:27 | Pulmonary Consultation ---
Date of Consultation December 16, 2021 Assessment & Plan (1) Hydropneumothorax: Pleural fluid sent for chemistries, cultures and cytology. Suspect fluid will be mildly exudative due to dialysis. Suspect the etiology of the pleural fluid is related to volume overload from end-stage renal disease and aortic stenosis. During the thoracentesis, the patient developed a pneumothorax. She now has a hydropneumothorax. Pigtail catheter is in place and will be left to suction -10 cm H2O. We will likely discontinue the catheter in the next 1 to 2 days as the pneumothorax resolves. (2) Ischemic cardiomyopathy: Cardiomyopathy likely secondary to valvular heart disease and coronary artery disease. Patient will likely need a TAVR. Cardiology following. Plan Thank you for allowing us participate in the care of this patient. Pulmonary will continue to follow. History of Present Illness Reason for Consultation: Right pleural effusion Attending Physician: Miguel Angel Gaitan History of Present Illness 81-year-old female with a past medical history of end-stage renal disease on hemodialysis, aortic stenosis and mitral valve stenosis who presented to the hospital due to shortness of breath. Patient notes a bit of a cough and subjective fevers. She was found to be COVID-19 positive yesterday and transferred to a COVGA isolation room. Pulmonary is consulted due to right pleural effusion noted on chest x-ray which has been refractory to diuresis and dialysis. Patient consented to a thoracentesis today and understood the risks and benefits. Thoracentesis was performed at bedside and yielded 1 L of pleural fluid removed. During the thoracentesis, air was aspirated. I placed the pigtail catheter over wire due to concerns for pneumothorax. Chest x-ray confirmed no pneumothorax. Pleural effusion appeared improved postthoracentesis. Patient denied any shortness of breath and tolerated the procedure well. Allergies Allergy/AdvReac Type Severity Reaction Status Date / Time codeine AdvReac Mild DOES NOT Verified 12/11/21 21:[address] IT MAKES HER FEEL. Home Medications Medication Instructions Recorded Confirmed Type ascorbic acid (vitamin C) 500 mg 500 mg PO QAM 12/10/18 12/11/21 History tablet polyethylene glycol 3350 17 17 gm PO DAILY PRN Constipation 12/10/18 12/11/21 History gram/dose oral powder venlafaxine 150 mg 150 mg PO QAM 12/10/18 12/11/21 History capsule,extended release 24 hr calcium carbonate 600 mg-vitamin 2 tab PO QAM 03/09/20 12/11/21 History D3 10 mcg (400 unit) chewable tablet (Calcium 600 with Vitamin D3) isosorbide mononitrate 120 mg 120 mg PO QAM #90 tabs 10/25/20 12/11/21 Rx tablet,extended release 24 hr cholecalciferol (vitamin D3) 25 50 mcg PO BID 12/27/20 12/11/21 History mcg (1,000 unit) capsule multivitamin 1 cap PO DAILY 05/18/21 12/11/21 History atorvastatin 80 mg tablet 80 mg PO HS #90 tabs 05/29/21 12/11/21 Rx vitamins A,C,S-kfnl-vrrkgw 14,320 1 cap PO BID 06/14/21 12/11/21 History unit-226 mg-200 unit capsule (PreserVision AREDS) insulin aspart U-100 100 unit/mL 7 unit (0.07 mL) subcut TIDM #30 mL 06/22/21 12/11/21 Rx (3 mL) subcutaneous pen (Novolog Flexpen U-100 Insulin aspart) hydralazine 50 mg tablet 100 mg PO TID #90 tabs 07/23/21 12/11/21 Rx pen needle, diabetic 32 gauge x #400 ea 09/25/21 11/20/21 Rx 5/32" (BD Ultra-Fine [place] Pen Needle) betamethasone dipropionate 0.05 % 1 applic topical DIRECTED PRN 11/20/21 12/11/21 History topical cream Skin Irritation insulin glargine 100 unit/mL (3 12 unit (0.12 mL) subcut QPM #15 mL 11/27/21 12/11/21 Rx mL) subcutaneous pen (Lantus Solostar U-100 Insulin) acetaminophen 500 mg tablet 1,000 mg PO Q8H PRN Pain 12/11/21 12/11/21 History (Tylenol Extra Strength) amlodipine 5 mg tablet 5 mg PO BID 12/11/21 12/11/21 History aspirin 81 mg tablet,delayed 81 mg PO DAILY 12/11/21 12/11/21 History release (Adult Aspirin Regimen) docusate sodium 100 mg capsule 100 mg PO BID 12/11/21 12/11/21 History menthol 0.44 %-zinc oxide 20.6 % 1 applic topical TID PRN NEEDED 12/11/21 12/11/21 History topical ointment (Calmoseptine) sevelamer HCl 800 mg tablet 800 mg PO TID 12/11/21 12/11/21 History Patient History Medical History (Updated 12/16/21 @ 15:25 by Hernandez Boogie MD) Anemia AV fistula LEFT CAD (coronary artery disease) Carotid artery disease less than 50% ICA stenosis per 08/2016 carotid duplex CHF (congestive heart failure) Chronic gastroesophageal reflux disease Chronic kidney disease on HD Dehiscence of wound Depression Diabetic peripheral neuropathy associated with type 2 diabetes mellitus Dialysis patient 3XWK (M/W/F) [facility]>FOLLOWED BY DR. HATHAWAY Dyslipidemia Gallstones Generalized osteoarthritis of multiple sites Graves disease H/O malignant neoplasm of uterine body Hiatal hernia History of kidney stones Hydropneumothorax Hypertension Irregular heart beat metoprolol for this per pt Lab test negative for COVID-19 virus Macular degeneration Moderate calcific aortic stenosis Multinodular goiter (nontoxic) Multiple thyroid nodules Obesity Osteopenia Patella fracture Secondary hyperparathyroidism Sepsis Sleep apnea No device Type 2 diabetes mellitus with insulin therapy Surgical History H/O abdominoplasty H/O basal cell carcinoma excision H/O shoulder surgery Right History of appendectomy History of cataract surgery R/L History of colonoscopy History of esophagogastroduodenoscopy (EGD) History of hip surgery Closed intertrochanteric fracture of left femur 04/10/2021: 02/16/2021: Grade 4 view, MAC#3, ETT#7.0. No issues per anesthesia postop progress note. History of open reduction and internal fixation (ORIF) procedure right patella 05/18/2021: LMA#4 atraumatic + PNB. No issues per anesthesia postop progress note. History of tonsillectomy History of tooth extraction S/P complete hysterectomy Status post knee surgery 05/31/21 Dr. Heriberto Ly- Incision and Debridement Right Knee, Right Open Reduction Internal Fixation Patella, Hardware Removal(Right) Family History Father Diabetes Lung cancer Family history of diabetes mellitus Mother , in a home fire Hypertension Family history of diabetes mellitus Daughter Family history of diabetes mellitus Son Family history of diabetes mellitus Other No family history of adverse response to anesthesia Denies family history of Ovarian cancer Prostate cancer Myocardial infarction Breast cancer Colorectal cancer Social History Smoking Status: Former smoker Tobacco Type: Cigarettes Second Hand Exposure: No; Hx Alcohol Use: No Hx Substance Use: No Preferred Language: Bhutanese Communication Ability: Effective Visual Impairment: No Limitations Hearing Ability: Normal [place] Former Required: No Beliefs That Will Affect Care: None marital status: / Current Living Situation: Family Current Living Situation Comment: Son and Daughter in law. current occupational status: retired Other Information That Helps Us Care for You: No Feels Safe at Home: Yes Safety Concerns: Feels Safe At This Time Safety Concerns Comment: unsteady at times Childhood Exposure to Second-Hand Smoke: Yes Dental Care, Regularly: No Physical Activity Frequency: Does not Exercise Seatbelt Use: always Sunscreen Use: No Assistive Devices: Walker and Wheelchair Review of Systems Review of Systems: All systems reviewed & are unremarkable except as noted in HPI & below Physical Exam Physical Exam: Constitutional: Frail and elderly appearing female in no criss arent distress. Eyes: Pupils are equal round and reactive to light. Conjunctivae are normal. Anicteric sclera. Ears nose, mouth and throat: Deferred. Neck: Trachea is midline. Visual inspection is normal. Respiratory: Diminished bilaterally with crackles. No increased work of breathing. Cardiovascular: 3 out of 6 systolic flow murmur. Trace edema in the lower extremities. Gastrointestinal: Normal bowel sounds, soft, nontender and nondistended. No hepatosplenomegaly noted. Musculoskeletal: Right lower extremity BKA present. Skin: No rashes, warm dry and intact. Neurologic: No obvious focal neurological deficits seen. Psychiatric: Alert and oriented x3 with a euthymic affect. Results & Data Results & Data ([facility]) Vital Signs (Past 12 Hours) Vital Signs Temp Pulse Pulse Resp BP Pulse Ox O2 Del Method 12/16/21 15:15 36.5 C 82 20 122/67 92 Room Air 12/16/21 11:17 37.5 C 75 18 153/70 H 93 Room Air 12/16/21 10:21 Room Air 12/16/21 07:51 37.6 C H 95 H 20 150/66 H 91 Room Air PG Care Time/CCT Total # of Minutes Spent Total Time Spent with Patient: Total time spent is greater than 50% in coordination of care (as documented) at patient's floor/unit and/or counseling patient: Coding Level of Care Code 94811 Initial Inpt Care Lvl 3 Diagnoses Hydropneumothorax J94.8 Ischemic cardiomyopathy I25.5
--- NOTE | 2021-12-16 15:31 | Procedure Note ---
Procedure Note Date of Service December 16, 2021 Note Procedure: Diagnostic and/or therapeutic ultrasound-guided catheter thoracentesis Toxics Program Officer: Dr. Hernandez Boogie Indication: Pleural effusion Consent: Signed by patient and verified with timeout prior to procedure Anesthesia: 8 mL's of 1% lidocaine without epinephrine given locally Procedure: Consent was verified and timeout performed. Consent was verbally obtained from the patient. Consent was witnessed by the nurse. Appropriate imaging studies were reviewed prior to the procedure. Patient was placed in a seated position and limited thoracic ultrasound was performed of the right lateral chest. See separate imaging. The site appropriate for thoracentesis was selected. The skin was prepped and draped in normal sterile fashion. Lidocaine was used for local analgesia. Fluid was aspirated via the finder needle. A small skin parker was made with the scalpel and the catheter over the needle apparatus was advanced over the rib into the pleural space. Using the syringe one-way valve system, a total of 1000 mL's of dark jadiel-colored fluid was removed. Procedure was terminated due to a [place] of air. I was able to aspirate approximately 500 cc of air and it was clear that the patient had pneumothorax. I asked for the nursing staff to bring me a 14 Albanian pigtail catheter. I ultimately cut the end of the thoracentesis catheter and secured the distal end of the thoracentesis catheter with a small hemostat. I then introduced a wire into the thoracentesis catheter after the distal end was cut. I unclamped the hemostat. The wire was inserted through the catheter. The catheter was then removed and the wire remained in place. I dilated the tract over the wire with a 14 Albanian dilator. I inserted the pigtail catheter over the wire. I sutured the catheter in place. The catheter was attached to the Kylah drainage system. Significant air leak was noted. Post procedure chest x-ray was obtained which demonstrated adequate placement of the pigtail catheter with a small to moderate sized pneumothorax at the base. We will leave the pigtail catheter to suction to -10 cm H2O. Pleural fluid sent for cultures, cytology, cell counts. Coding CPT Codes Pulmonary/Thoracic - Pulmonary and Thoracic: 19905 Thoracentesis w imaging ([id number]) Pulmonary/Thoracic - Pulmonary and Thoracic: 17250 Tube thoracostomy ([id number]) [employer] [facility] [employer] Procedure Codes (Charges) Pulmonary/Thoracic Procedure 1: Pulmonary and Thoracic: 06121 Thoracentesis w imaging Procedure 2: Pulmonary and Thoracic: 24751 Tube thoracostomy
--- NOTE | 2021-12-16 16:24 | XRay Report ---
XR chest 1V portable HISTORY: 81 years-old Female follow up ptx right-sided pneumothorax COMPARISON: Chest radiograph of same day at 2:37 PM TECHNIQUE: AP view of the chest FINDINGS: Cardiac silhouette is enlarged. Pulmonary vascular congestion with interstitial coarsening redemonstr ated. Trace right and small left pleural effusions with persistent bibasilar consolidation. The right pleural effusion is unchanged. A pleural drainage catheter projects over the right lung base. A smal l right-sided pneumothorax is present with pleural separation at the right lung base measuring up to approximately 2.2 cm, unchanged. Small amount of subcutaneous emphysema along the right lateral chest wall. Degenerative changes of the shoulders and spine. IMPRESSION: Right-sided pleural catheter in place. The small right-sided pneumothorax is generally st able. ACT 112: Negative or not required by law. The above report was generated using voice recognition software. It may contain grammatical, syntax o r spelling errors. Electronically signed by: All Osullivan M.D. 12/16/2021 4:23 PM
--- NOTE | 2021-12-16 20:34 | Hospitalist Progress Note ---
Date of Service December 16, 2021 Assessment & Plan (1) COVID-19: Plan: tested + last evening. thus far stable. No O2 requirement. difficult to know if any pneumonia present - infiltrates on cxr likely edema, but can't fully rule out pneumonia. if any hypoxia -- add dexamethasone 6mg IV daily. not a candidate for paxlovid or Remdesivir (due to ESRD). cont airborne isolation. (2) Pleural effusion: Plan: right s/p thoracentesis today by Dr Boogie complicated by pneumothorax s/p pigtail catheter placement post-procedural cxrs noted fluid protein level does not meet Lite's criteria for exudate defer catheter management to pulmonary (3) Aortic stenosis: Plan: mod-severe. seen by cardiology - felt NOT contributing to #4 below. (4) Volume overload: Plan: Improving with serial HD sessions. s/p 4 sessions last week with 10-15 pounds of weight removed. TSH wnl. Formal consult by cardiology appreciated - volume overload issues not felt to be driven by valvular heart disease (moderate-severe ). Ischemia possible but felt unlikely per cardiology. Appreciate cards/nephro consults & assistance. Appreciate pulmonary consultation for right sided effusion. HD planned tomorrow. (5) Pulmonary edema: Plan: Improving. see above. (6) ESRD (end stage renal disease) on dialysis: Plan: Typical outpatient schedule M//. s/p 4 serial treatments on 12/12, 12/13, 12/14, 12/15. Appreciate nephrology assistance. HD tomorrow; none today. BMP am. (7) Hypertension, uncontrolled: Plan: Continue amlodipine, hydralazine, and Imdur Continue with hemodialysis for fluid management BPs controlled last 48 hours with serial HD Consider low-dose beta shelby (8) Type 2 diabetes mellitus with insulin therapy: Plan: Continue Lantus as well as NovoLog SSI Controlled Hemoglobin A1c is 5.5% Continue with diabetic diet (9) DVT prophylaxis: Plan: resume Heparin SC BID in am (10) CAD (coronary artery disease): Plan: I can't find any record of a previous cardiac cath. Saw Dr Hamm in 2020 - no mention of formal dx of CAD. Wall motion abnormalities are seen on echo. Thus, can't rule out underlying CAD. Cardiology saw in consult this weekend - defer on w/u for CAD at this time. Cont statin. Cont asa. Should be on BB. Is already on imdur, amlodipine. (11) Dyslipidemia: Plan: Cont statin (12) History of Graves' disease: Plan: noted TSH wnl this admission (13) Unilateral AKA: Plan: right (14) Chronic systolic CHF (congestive heart failure): Plan: EF 45-50% on echo this admission. Was 60-65% in 06/2021. Cardiology consult today appreciated. She will need close f/u with Dr Hamm post-d/c. Her is not felt to be causing her current volume overloaded state. (15) Ischemic cardiomyopathy: Plan: Wall motion abnormalities noted on echo this admission. Cont asa, statin, etc. Cards consult appreciated. Plan pt's daughter extensively updated by phone yesterday evening and this am she is aware of COVID+ diagnosis plan of care discussed Admission and Anticipated Discharge Date Admission Date: December 11, 2021 Subjective patient had fever last pm repeat COVID testing was POSITIVE moved to airborne isolation this am she feels tired and appetite is a bit off she is coughing but denies dyspnea at rest denies orthopnea I saw patient after her right-sided thoracentesis 1000cc of jadiel fluid removed unfortunately complicated by pneumothorax - pigtail catheter placed denies pain at site of pigtail Review of Systems Review of Systems: gen - fatigue, fever, appetite loss cv - no chest pain GI - no pain, nausea, emesis pulm - no sputum despite cough Physical Exam Physical Exam: gen - NAD, comfortable, looks tried mouth - MMM neck - no JVD heart - RR, irregular (ectopy), s1 s2, 2/6 systolic murmur RUSB lungs - decreased BS right base, CTA apices, no wheeze, no increased work of breathing abd - soft NT ND BS+ ext - right AKA, left leg 2+ pulses and no edema psych - a/o x 3 Results & Data Results & Data ([facility]) Vital Signs (Past 12 Hours) Vital Signs Temp Pulse Pulse Resp BP Pulse Ox O2 Del Method 12/16/21 18:54 36.8 C 87 18 150/69 H 93 Room Air 12/16/21 15:15 36.5 C 82 20 122/67 92 Room Air 12/16/21 11:17 37.5 C 75 18 153/70 H 93 Room Air 12/16/21 10:21 Room Air Laboratory Results Laboratory Results - last 24 hr 12/15/21 12/16/21 12/16/21 21:05 07:50 11:18 POC Glucose 127 H 275 H Pleural pH Pleural Total Protein Pleural LDH Pleural Glucose SARS-CoV-2 (PCR) POSITIVE A* 12/16/21 12/16/21 12/16/21 14:24 15:52 20:03 POC Glucose 99 155 H Pleural pH 7.53 H Pleural Total Protein Pleural LDH Pleural Glucose SARS-CoV-2 (PCR) 12/16/21 Unknown POC Glucose Pleural pH Pleural Total Protein 3.0 Pleural LDH 58 Pleural Glucose 174 SARS-CoV-2 (PCR) Diagnostic Findings Chest X-Ray 12/16/21 08:03 XR chest 1V portable HISTORY: Shortness of breath. recent CHF, now with COVID-19 COMPARISON: Chest 12/14/2021. FINDINGS: There are low lung volumes. No pneumothorax. The heart remains mildly enlarged. Pulmonary edema and small bilateral pleural effusions have improved. Patchy bibasilar densities have also improved in the interval. Advanced degenerative changes within the shoulders. IMPRESSION: Interval improvement in the pulmonary edema, small bilateral pleural effusions, and bibasilar densities. ACT 112: Negative or not required by law. Electronically signed by: Carlito Eugene M.D. 12/16/2021 8:56 AM Chest X-Ray 12/16/21 14:23 XR chest 1V portable HISTORY: 81 years-old Female pigtail cath status post placement of a right- sided pleural drainage catheter COMPARISON: Chest radiograph 12/16/2021 TECHNIQUE: AP view of the chest FINDINGS: Cardiac silhouette is enlarged. Pulmonary vascular congestion with interstitial coarsening redemonstrated. Trace right and small left pleural effusions with persistent bibasilar consolidation. The right pleural effusion has decreased in size from prior. A pleural drainage catheter projects over the right lung base. A small right-sided pneumothorax is present with pleural separation at the right lung base measuring up to approximately 2.0 cm. Degenerative changes of the shoulders and spine. IMPRESSION: 1. Status post placement of a right-sided pleural catheter. Small right-sided hydropneumothorax with decreased pleural fluid compared to the study earlier today. 2. Cardiomegaly with pulmonary edema, persistent small left pleural effusion with bibasilar consolidation. ACT 112: Negative or not required by law. The above report was generated using voice recognition software. It may contain grammatical, syntax or spelling errors. Electronically signed by: All Osullivan M.D. 12/16/2021 2:55 PM Chest X-Ray 12/16/21 16:03 XR chest 1V portable HISTORY: 81 years-old Female follow up ptx right-sided pneumothorax COMPARISON: Chest radiograph of same day at 2:37 PM TECHNIQUE: AP view of the chest FINDINGS: Cardiac silhouette is enlarged. Pulmonary vascular congestion with interstitial coarsening redemonstrated. Trace right and small left pleural effusions with persistent bibasilar consolidation. The right pleural effusion is unchanged. A pleural drainage catheter projects over the right lung base. A small right-sided pneumothorax is present with pleural separation at the right lung base measuring up to approximately 2.2 cm, unchanged. Small amount of subcutaneous emphysema along the right lateral chest wall. Degenerative changes of the shoulders and spine. IMPRESSION: Right-sided pleural catheter in place. The small right-sided pneumothorax is generally stable. ACT 112: Negative or not required by law. The above report was generated using voice recognition software. It may contain grammatical, syntax or spelling errors. Electronically signed by: All Osullivan M.D. 12/16/2021 4:23 PM PG Care Time/CCT Total # of Minutes Spent Total Time Spent with Patient: Total time spent is greater than 50% in coordination of care (as documented) at patient's floor/unit and/or counseling patient: Coding Level of Care Code 31516 Subseq Hosp Care Lvl 3 Diagnoses COVID-19 U07.1 Pleural effusion J90 Aortic stenosis I35.0 Volume overload E87.70 Pulmonary edema J81.1 ESRD (end stage renal disease) on dialysis N18.6; Z99.2 Hypertension, uncontrolled I10 Type 2 diabetes mellitus with insulin therapy E11.9; Z79.4 DVT prophylaxis Z29.9 CAD (coronary artery disease) I25.10 Dyslipidemia E78.5 History of Graves' disease Z86.39 Unilateral AKA S78.119A Chronic systolic CHF (congestive heart failure) I50.22 Ischemic cardiomyopathy I25.5
[2021-12-16] MEDS: ATORVASTATIN 40 MG TAB PO SCH (21:17)
[2021-12-16] MEDS: ACETAMINOPHEN 500 MG TAB PO PRN (21:20)
[2021-12-17 06:40] LABS: Basophils # (auto) 0.02 K/uL (0-0.2); Basophils % (auto) 0.3 %; Eosinophils # (auto) 0.06 K/uL (0-0.50); Eosinophils % (auto) 0.9 %; Hematocrit (blood only) 38.3 % (34.1-44.9); Hemoglobin 11.4 g/dl (12.0-16.0); Immature Granulocytes # (auto) 0.02 K/uL (0.00-0.02); Immature Granulocytes % (auto) 0.3 %; Lymphocytes % (auto) 15.3 %; Mean Corpuscular Hemoglobin 25.1 pg (25.0-34.0); Mean Corpuscular Hgb Conc 29.8 g/dL (32.0-36.0); Mean Corpuscular Volume 84.2 fL (80.0-100.0); Mean Platelet Volume 9.9 fL (9.4-12.3); Monocytes # (auto) 1.17 K/uL (0.24-0.82); Monocytes % (auto) 17.9 %; Neutrophils # (auto) 4.26 K/uL (1.4-6.5); Neutrophils % (auto) 65.3 %; Platelet Count 167 K/uL (130-400); RDW Coefficient of Variation 19.1 % (11.5-14.5); RDW Standard Deviation 56.2 fL (36.4-46.3); Red Blood Count 4.55 M/uL (3.93-5.22); White Blood Count 6.53 K/ul (4.8-10.8)
[2021-12-17 07:21] LABS: C Reactive Protein 9.27 mg/dl (0-0.5); Calcium 9.3 mg/dl (8.5-10.1); Creatinine Clr Calc Pharmacy 12.1 ml/min; Est GFR (African American) 13.2 ml/min; Est GFR (Non-African American) 11.4 ml/min; Potassium 4.1 mmol/L (3.5-5.1)
[2021-12-17] MEDS: HEPARIN SOD 5,000 UNIT/0.5 ML VIAL SQ SCH ×2 (08:40→21:09)
[2021-12-17] MEDS: ASCORBIC ACID 500 MG TAB PO SCH (08:41)
[2021-12-17] MEDS: amLODIPine BESYLATE 5 MG TAB PO SCH ×2 (08:41→21:07)
[2021-12-17] MEDS: CALCIUM 600MG + VIT D 400 IU TAB PO SCH (08:41)
[2021-12-17] MEDS: SEVELAMER HCL 800 MG TABLET PO SCH ×3 (08:41→17:17)
[2021-12-17] MEDS: hydrALAZINE TAB 50 MG TAB PO SCH ×3 (08:41→21:08)
[2021-12-17] MEDS: CHOLECALCIFEROL 1,000 UNITS 25 MCG TAB PO SCH ×2 (08:41→21:07)
[2021-12-17] MEDS: VENLAFAXINE HCL XR 150 MG CAPXR PO SCH (08:42)
[2021-12-17] MEDS: ASPIRIN 81 MG ECTAB PO SCH (08:42)
[2021-12-17] MEDS: DOCUSATE SODIUM 100 MG CAP PO SCH ×2 (08:42→20:56)
[2021-12-17] MEDS: ISOSORBIDE MONO EXTENDED REL 60 MG TABCR PO SCH (08:42)
[2021-12-17] MEDS: MULTIVITAMIN TAB PO SCH (08:42)
[2021-12-17] MEDS: CEROVITE ADV FORMULA TAB PO SCH (08:42)
[2021-12-17] MEDS: BENZONATATE 100 MG CAPSULE PO SCH ×3 (08:48→21:07)
--- NOTE | 2021-12-17 09:21 | XRay Report ---
XR chest 1V portable HISTORY: 81 years-old Female ptx follow-up study in a patient with right-sided pneumothorax COMPARISON: Chest radiograph 12/16/2021 TECHNIQUE: Portable AP view of the chest FINDINGS: A right basilar predominant pneumothorax is redemonstrated with pleural separation measuring up to ap proximately 5.9 cm. A pleural drainage catheter is present. Small amount of adjacent subcutaneous emp hysema. There is volume loss within the right lung base with bibasilar airspace opacities, mildly imp roved. Pulmonary vascular congestion. Probable trace pleural effusions. Degenerative changes of the s houlders and spine. IMPRESSION: A right-sided pleural drainage catheter is again noted along with a right basilar predomi nant pneumothorax which has mildly increased in size. ACT 112: Negative or not required by law. The above report was generated using voice recognition software. It may contain grammatical, syntax o r spelling errors. Electronically signed by: All Osullivan M.D. 12/17/2021 9:20 AM
[2021-12-17] MEDS: INSULIN ASPART PER UNIT SC SCH ×4 (09:53→20:49)
[2021-12-17] MEDS: LANTUS PER UNIT CHARGE SQ SCH ×2 (09:54→21:04)
--- NOTE | 2021-12-17 09:55 | Nephrology Progress Note ---
Date of Service December 17, 2021 Assessment & Plan (1) ESRD (end stage renal disease) on dialysis: (2) Volume overload: (3) Aortic stenosis: (4) Status post above-knee amputation of right lower extremity: Plan 81-year-old F with ESRD on HD MWF at [facility], admitted with volume overload after she presented to ER with SOB. CXR shower Rt pL effusion and pulmonary edema. On admission her weight was 70 kg and she had 3 days back to back dialysis and her dry weight brought down to 63 kg. She had dialysis yesterday and overall she is feeling well, has been lying flat without any symptom. Has and MR and there was concern that her severe is contributing to volume issue. She was evaluated by Cardiology and felt that her aortic stenosis is not critical and unlikely to have major impact on volume status with any intervention for at this time but can be evaluated again in future if there is issues with volume overload. Of course with her significant comorbidities any intervention will be associated with significant risk. Diagnosed with COVID on 12/15/21. Had thoracentesis on 12/16/2021 for large right pleural effusion, complicated by pneumothorax, currently has drainage. Overall she is doing well with improvement in her volume status, has some cough but otherwise asymptomatic. --will plan for today, aim for estimated dry weight 63 kg as MWF schedule --monitor CBC, electrolytes Will follow Admission and Anticipated Discharge Date Admission Date: December 11, 2021 Jason Masters has been overall feeling well, had HD yesterday, no significant SOB. had thoracentesis yesterday, complicated by pneumothorax, now has catheter. Review of Systems Review of Systems: Detailed review of system was otherwise unremarkable except mentioned above in HPI. Physical Exam Constitutional: WD/WN, vitals as above no acute distress Eyes: + anicteric sclerae ENMT: Ears: no hearing impairment Neck: normal visual inspection Respiratory: normal respiratory effort; no respiratory distress Au scultation: + diminished lung sounds ( Right lower lobe); no crackles and no wheezes Cardiovascular: Rate/Rhythm: regular rate and regular rhythm Heart Sounds: normal S1 and normal S2 Extremities: no edema Skin: no rashes Neurologic: no focal motor deficits and not confused Psychiatric: Orientation: alert and oriented x 3 Results & Data ([facility]) Vital Signs (Past 12 Hours) Vital Signs Temp Pulse Pulse Pulse Resp BP Pulse Ox 12/17/21 07:55 36.7 C 75 18 120/68 95 12/17/21 07:20 76 12/17/21 03:15 36.5 C 78 18 121/47 L 92 12/17/21 01:17 78 12/16/21 23:17 36.5 C 78 18 129/65 95 12/16/21 22:28 O2 Del Method 12/17/21 07:55 Room Air 12/17/21 07:20 12/17/21 03:15 Room Air 12/17/21 01:17 12/16/21 23:17 12/16/21 22:28 Room Air PG Care Time/CCT Total # of Minutes Spent Total Time Spent with Patient: Total time spent is greater than 50% in coordination of care (as documented) at patient's floor/unit and/or counseling patient: Coding Level of Care Code 46946 Subseq Hosp Care Lvl 3 Diagnoses ESRD (end stage renal disease) on dialysis N18.6; Z99.2 Volume overload E87.70 Aortic stenosis I35.0 Status post above-knee amputation of right lower extremity Z89.611
[2021-12-17] MEDS: ACETAMINOPHEN 500 MG TAB PO PRN (12:07)
--- NOTE | 2021-12-17 17:20 | Pulmonology Progress Note ---
Date of Service December 17, 2021 Assessment & Plan (1) Pleural effusion: (2) Hydropneumothorax: (3) COVID-19: Plan Impression: 81-year-old female with pleural effusion which appears to be borderline exudative. It does not appear that cell counts were sent. Cytology is pending. Gram stain negative. Unclear if this is related to underlying heart disease, kidney disease, or COVID (much less likely). She had a small pneumothorax postprocedure which may have represented a trapped and trapped lung. A pigtail catheter was placed and follow-up imaging demonstrates the pneumothorax to be persistent. There is no air leak. Recommendations: 1. Pleural effusion: Await cytology and cultures. Optimization of the patient's volume status with nephrology and cardiology recommended. 2. Pneumothorax: Unclear if this is pneumo ex vacuo. Will obtain CT of the chest to evaluate further. Additional recommendations will be based on that imaging. 3. COVID. Patient is on room air. No additional adjuvant therapy is necessary at this point time. Management of the patient's other medical issues is deferred to the patient's primary service. Admission and Anticipated Discharge Date Admission Date: December 11, 2021 Subjective Patient seen and examined. EMR reviewed. 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 The patient denies any chest pain. She thinks her breathing is fine. She is not coughing or expectorating phlegm. The chest tube is no longer demonstrating any air leak. There is minimal titling noted. Review of Systems Review of Systems: All systems reviewed & are unremarkable except as noted in Subjective Physical Exam Physical Exam: gen - NAD, comfortable, looks tried mouth - MMM neck - no JVD heart - RR, irregular (ectopy), s1 s2, 2/6 systolic murmur RUSB lungs - decreased BS right base, CTA apices, no wheeze, no increased work of breathing abd - soft NT ND BS+ ext - right AKA, left leg 2+ pulses and no edema psych - a/o x 3 Results & Data Results & Data ([facility]) Vital Signs (Past 12 Hours) Vital Signs Temp Pulse Pulse Pulse Pulse Resp BP 12/17/21 15:05 36.5 C 91 H 18 12/17/21 14:58 88 12/17/21 14:20 36.6 C 75 90 12/17/21 13:40 48 L 117/49 L 12/17/21 12:50 56 L 101/40 L 12/17/21 13:20 51 L 105/63 12/17/21 13:00 58 L 81/62 L 12/17/21 12:40 64 77/41 L 12/17/21 12:05 65 81/36 L 12/17/21 12:20 58 L 96/36 L 12/17/21 12:00 60 70/31 L 12/17/21 11:40 60 87/37 L 12/17/21 11:20 62 96/38 L 12/17/21 11:00 75 92/39 L 12/17/21 10:56 77 102/50 L 12/17/21 10:41 36.8 C 80 12/17/21 07:55 36.7 C 75 18 12/17/21 07:20 76 BP Pulse Ox O2 Del Method 12/17/21 15:05 107/39 L 96 Room Air 12/17/21 14:58 12/17/21 14:20 118/69 12/17/21 13:40 12/17/21 12:50 12/17/21 13:20 12/17/21 13:00 12/17/21 12:40 12/17/21 12:05 12/17/21 12:20 12/17/21 12:00 12/17/21 11:40 12/17/21 11:20 12/17/21 11:00 12/17/21 10:56 12/17/21 10:41 12/17/21 07:55 120/68 95 Room Air 12/17/21 07:20 Laboratory Results 12/17/21 06:17 12/17/21 06:17 Pleural fluid studies: Pleural pH 7.53 Pleural total protein 3.0 Pleural LDH 58 Pleural glucose 178 Pleural cytology pending Gram stain with moderate white blood cells and no organisms, culture pending. Diagnostic Findings CT chest pending. Chest x-ray from today demonstrated persistent loculated pneumothorax at the lung base PG Care Time/CCT Total # of Minutes Spent Total Time Spent with Patient: Total time spent is greater than 50% in coordination of care (as documented) at patient's floor/unit and/or counseling patient: Coding Level of Care Code 50122 Subseq Hosp Care Lvl 3 Diagnoses Pleural effusion J90 Hydropneumothorax J94.8 COVID-19 U07.1
[2021-12-17] MEDS: ATORVASTATIN 40 MG TAB PO SCH (21:08)
--- NOTE | 2021-12-17 21:50 | Hospitalist Progress Note ---
Date of Service December 17, 2021 Assessment & Plan (1) COVID-19: Plan: first day of illness - 12/15/21 (tested + then as well). remains unwell but stable. No hypoxia/No O2 requirement. difficult to know if any pneumonia present - infiltrates on cxr likely edema, but can't fully rule out pneumonia. if any worsening hypoxia -- add dexamethasone 6mg IV daily. defer for now. not a candidate for paxlovid or Remdesivir (due to ESRD). cont airborne isolation. (2) Pleural effusion: Plan: right s/p thoracentesis 12/16/[address] Boogie 1000cc of fluid obtained; transudative by Light's criteria, but borderline exudative. culture thus far negative. pathology pending. complicated by pneumothorax s/p pigtail catheter placement post-procedural cxrs noted defer catheter management to pulmonary (3) Hydropneumothorax: Plan: right see #2 above pigtail catheter remains in place cxr noted other possibility is that this is trapped lung defer management to pulmonary (4) Aortic stenosis: Plan: mod-severe. seen by cardiology - felt NOT contributing to #5 below. (5) Volume overload: Plan: Improved s/p 4 serial HD sessions last week with 10-15 pounds of weight removed. TSH wnl. s/p HD today per usual schedule M/W/. Formal consult by cardiology appreciated - volume overload issues not felt to be driven by valvular heart disease (moderate-severe ). Ischemia possible but felt unlikely per cardiology. Appreciate cards/nephro consults & assistance. Appreciate pulmonary consultation for right sided effusion. (6) Pulmonary edema: Plan: Improving. see above. (7) ESRD (end stage renal disease) on dialysis: Plan: Typical outpatient schedule M/W/F. s/p 4 serial treatments on 12/12, 12/13, 12/14, 12/15. s/p usual treatment today. Appreciate nephrology assistance. (8) Hypertension, uncontrolled: Plan: Continue amlodipine, hydralazine, and Imdur Continue with hemodialysis for fluid management will need to ask pharmacy to schedule her BP meds AFTER HD on HD days to avoid iatrogenic hypotension (9) Type 2 diabetes mellitus with insulin therapy: Plan: Continue Lantus as well as NovoLog SSI Controlled Hemoglobin A1c is 5.5% Continue with diabetic diet (10) DVT prophylaxis: Plan: Heparin SC BID in am (11) CAD (coronary artery disease): Plan: I can't find any record of a previous cardiac cath. Saw Dr Hamm in 2020 - no mention of formal dx of CAD. Wall motion abnormalities are seen on echo this admission. Thus, can't rule out underlying CAD. Cardiology saw in consult this weekend - defer on w/u for CAD at this time. Cont statin. Cont asa. Should be on BB. Is already on imdur, amlodipine. (12) Dyslipidemia: Plan: Cont statin (13) History of Graves' disease: Plan: noted TSH wnl this admission (14) Unilateral AKA: Plan: right (15) Chronic systolic CHF (congestive heart failure): Plan: EF 45-50% on echo this admission. Was 60-65% in 06/2021. Cardiology consult appreciated. She will need close f/u with Dr Hamm post-d/c. Her is not felt to be causing her current volume overloaded state. (16) Ischemic cardiomyopathy: Plan: Wall motion abnormalities noted on echo this admission. Cont asa, statin, etc. Cards consult appreciated. Plan pt's daughter extensively updated by phone multiple times this weekend and again this evening she is aware of COVID+ diagnosis she is aware of pigtail catheter and need for such plan of care discussed in detail Admission and Anticipated Discharge Date Admission Date: December 11, 2021 Subjective patient reports feeling poorly -- appetite is poor, very tired, some headache, ongoing cough (largely nonproductive), and pain over pigtail catheter site no air leak from chest tube noted tele stable overnight was receiving HD session during my visit BPs low during HD today (received her am meds prior to the session) Review of Systems Review of Systems: gen - no fevers or chills today cv - no orthopnea; no substernal cp pulm - cough, no dyspnea GI - no abd pain, nausea, emesis Physical Exam Physical Exam: gen - looks unwell today; lying flat in bed comfortably, however; receiving dialysis during my visit mouth - MMM neck - no JVD heart - RR, irregular (ectopy), s1 s2, 2/6 systolic murmur RUSB lungs - decreased BS right base, CTA apices, no wheeze, no increased work of breathing abd - soft NT ND BS+ ext - right AKA, left leg 2+ pulses and no edema, left arm AV fistula psych - a/o x 3 Results & Data Results & Data ([facility]) Vital Signs (Past 12 Hours) Vital Signs Temp Pulse Pulse Pulse Pulse Resp BP 12/17/21 15:05 36.5 C 91 H 18 12/17/21 14:58 88 12/17/21 14:20 36.6 C 75 90 12/17/21 13:40 48 L 117/49 L 12/17/21 12:50 56 L 101/40 L 12/17/21 13:20 51 L 105/63 12/17/21 13:00 58 L 81/62 L 12/17/21 12:40 64 77/41 L 12/17/21 12:05 65 81/36 L 12/17/21 12:20 58 L 96/36 L 12/17/21 12:00 60 70/31 L 12/17/21 11:40 60 87/37 L 12/17/21 11:20 62 96/38 L 12/17/21 11:00 75 92/39 L 12/17/21 10:56 77 102/50 L 12/17/21 10:41 36.8 C 80 BP Pulse Ox O2 Del Method 12/17/21 15:05 107/39 L 96 Room Air 12/17/21 14:58 12/17/21 14:20 118/69 12/17/21 13:40 12/17/21 12:50 12/17/21 13:20 12/17/21 13:00 12/17/21 12:40 12/17/21 12:05 12/17/21 12:20 12/17/21 12:00 12/17/21 11:40 12/17/21 11:20 12/17/21 11:00 12/17/21 10:56 12/17/21 10:41 Laboratory Results Laboratory Results - last 24 hr 12/17/21 12/17/21 12/17/21 06:17 06:17 07:36 WBC 6.53 RBC 4.55 Hgb 11.4 L Hct 38.3 MCV 84.2 MCH 25.1 MCHC 29.8 L RDW Std Deviation 56.2 H RDW Coeff of Chris 19.1 H Plt Count 167 MPV 9.9 Immature Gran % (Auto) 0.3 Neut % (Auto) 65.3 Lymph % (Auto) 15.3 Armstrong % (Auto) 17.9 Eos % (Auto) 0.9 Baso % (Auto) 0.3 Neut # (Auto) 4.26 Lymph # (Auto) 1.00 L Armstrong # (Auto) 1.17 H Eos # (Auto) 0.06 Baso # (Auto) 0.02 Immature Gran # (Auto) 0.02 Sodium 131 L Potassium 4.1 Chloride 96 L Carbon Dioxide 25 Anion Gap 10 BUN 72 H Creatinine 3.60 H Est Cr Clr Drug Dosing 12.1 Est GFR ( Amer) 13.2 Est GFR (Non-Af Amer) 11.4 BUN/Creatinine Ratio 20.0 Glucose 120 H POC Glucose 137 H Calcium 9.3 AST 16 ALT 12 C-Reactive Protein 9.27 H 12/17/21 12/17/21 16:27 20:40 WBC RBC Hgb Hct MCV MCH MCHC RDW Std Deviation RDW Coeff of Chris Plt Count MPV Immature Gran % (Auto) Neut % (Auto) Lymph % (Auto) Armstrong % (Auto) Eos % (Auto) Baso % (Auto) Neut # (Auto) Lymph # (Auto) Armstrong # (Auto) Eos # (Auto) Baso # (Auto) Immature Gran # (Auto) Sodium Potassium Chloride Carbon Dioxide Anion Gap BUN Creatinine Est Cr Clr Drug Dosing Est GFR ( Amer) Est GFR (Non-Af Amer) BUN/Creatinine Ratio Glucose POC Glucose 155 H 148 H Calcium AST ALT C-Reactive Protein Diagnostic Findings Chest X-Ray 12/17/21 07:38 XR chest 1V portable HISTORY: 81 years-old Female ptx follow-up study in a patient with right-sided pneumothorax COMPARISON: Chest radiograph 12/16/2021 TECHNIQUE: Portable AP view of the chest FINDINGS: A right basilar predominant pneumothorax is redemonstrated with pleural separation measuring up to approximately 5.9 cm. A pleural drainage catheter is present. Small amount of adjacent subcutaneous emphysema. There is volume loss within the right lung base with bibasilar airspace opacities, mildly improved. Pulmonary vascular congestion. Probable trace pleural effusions. Degenerative changes of the shoulders and spine. IMPRESSION: A right-sided pleural drainage catheter is again noted along with a right basilar predominant pneumothorax which has mildly increased in size. ACT 112: Negative or not required by law. The above report was generated using voice recognition software. It may contain grammatical, syntax or spelling errors. Electronically signed by: All Osullivan M.D. 12/17/2021 9:20 AM PG Care Time/CCT Total # of Minutes Spent Total Time Spent with Patient: Total time spent is greater than 50% in coordination of care (as documented) at patient's floor/unit and/or counseling patient: Coding Level of Care Code 86859 Subseq Hosp Care Lvl 2 Diagnoses COVID-19 U07.1 Pleural effusion J90 Hydropneumothorax J94.8 Aortic stenosis I35.0 Volume overload E87.70 Pulmonary edema J81.1 ESRD (end stage renal disease) on dialysis N18.6; Z99.2 Hypertension, uncontrolled I10 Type 2 diabetes mellitus with insulin therapy E11.9; Z79.4 DVT prophylaxis Z29.9 CAD (coronary artery disease) I25.10 Dyslipidemia E78.5 History of Graves' disease Z86.39 Unilateral AKA S78.119A Chronic systolic CHF (congestive heart failure) I50.22 Ischemic cardiomyopathy I25.5
[2021-12-18] MEDS: INSULIN ASPART PER UNIT SC SCH ×4 (08:20→20:14)
[2021-12-18] MEDS: hydrALAZINE TAB 50 MG TAB PO SCH ×3 (08:26→21:06)
[2021-12-18] MEDS: amLODIPine BESYLATE 5 MG TAB PO SCH ×2 (08:27→21:05)
[2021-12-18] MEDS: SEVELAMER HCL 800 MG TABLET PO SCH ×3 (08:27→17:01)
[2021-12-18] MEDS: CHOLECALCIFEROL 1,000 UNITS 25 MCG TAB PO SCH ×2 (08:27→21:06)
[2021-12-18] MEDS: DOCUSATE SODIUM 100 MG CAP PO SCH ×2 (08:28→21:07)
[2021-12-18] MEDS: HEPARIN SOD 5,000 UNIT/0.5 ML VIAL SQ SCH ×2 (08:28→21:07)
[2021-12-18] MEDS: ISOSORBIDE MONO EXTENDED REL 60 MG TABCR PO SCH (08:31)
[2021-12-18] MEDS: MULTIVITAMIN TAB PO SCH (08:31)
[2021-12-18] MEDS: VENLAFAXINE HCL XR 150 MG CAPXR PO SCH (08:31)
[2021-12-18] MEDS: CEROVITE ADV FORMULA TAB PO SCH (08:31)
[2021-12-18] MEDS: CALCIUM 600MG + VIT D 400 IU TAB PO SCH (08:31)
[2021-12-18] MEDS: ASCORBIC ACID 500 MG TAB PO SCH (08:31)
[2021-12-18] MEDS: ASPIRIN 81 MG ECTAB PO SCH (08:31)
--- NOTE | 2021-12-18 08:31 | CT Scan Report ---
CT chest diagnostic wo con CT DOSE: 332.02 mGy.cm CLINICAL HISTORY: 81 years-old Female with pneumothorax. Follow-up study in a patient with a right-s ided pneumothorax TECHNIQUE: Multiaxial CT images of the chest were performed without contrast. A dose lowering techni que was utilized adhering to the principles of ALARA. COMPARISON: Chest radiograph 12/17/2021, chest CT 10/20/2020 FINDINGS: Enlarged multinodular thyroid with numerous calcified nodules. There are several borderline enlarged mediastinal lymph nodes measuring up to approximately 9 mm. The heart is moderately enlarge d. Extensive coronary artery calcifications are noted in addition to atherosclerotic plaque of the th oracic aorta. Dilated pulmonary artery suggests pulmonary arterial hypertension. Small to moderate amount of pneumomediastinum. There is wall thickening of the distal esophagus with areas of adjacent hyperattenuation nonspecific, possibly postsurgical. Pleural thickening is noted, greatest at the level of the lung bases. There is a small mildly loculat ed left-sided pleural effusion. Mild left basilar consolidation containing several calcified subcenti meter granulomata. 4 mm solid nodule of the left lung apex on image 45 is stable. Possible groundglas s nodule of the left lung apex on image 62 measures 4 mm. 6 mm nodule of the right upper lobe on imag e 116 is unchanged. Groundglass densities with mosaic attenuation/air trapping in the right upper lob e. There are several subcentimeter groundglass nodules of the right upper lobe measuring up to 6 mm o n image 158. It is difficult to determine if these were present on the prior study. There is partiall y calcified consolidation with collapse involving the majority of the right lower lobe. A right-sided pleural catheter terminates over the right lung base. A right-sided hydropneumothorax is present wit h moderate amount of air within the pleural space and a small amount of pleural fluid. The central ai rways are generally patent. Cholelithiasis with mild gallbladder distention. Moderate fecal retention. There is mild generalized body wall edema. Degenerative changes of the bilateral shoulders with right greater than left glenohu meral joint effusions. There is flattening involving the articular surface of the right humeral head without articular cortical defects. This is likely degenerative related and has progressed from the p rior study. Healed chronic left-sided rib fractures.. The osteophytes compatible DISH. Subcutaneous e mphysema of the right lateral chest wall. Age-indeterminate superior endplate compression deformity n oted at L1 IMPRESSION: 1. A pigtail catheter is present within the right lower hemithorax. There is a persistent right-sided hydropneumothorax with moderate amount of pleural air and a small amount of pleural fluid. 2. Near complete collapse of the right lower lobe with partially calcified chronic right lower lobe c onsolidation. Findings are suspicious for a trapped lung. 3. Nonspecific bilateral pleural thickening with a small loculated left pleural effusion. 4. Bilateral atelectasis with air trapping. 5. Stable benign bilateral solid pulmonary nodules. There are several indeterminate groundglass nodul es measuring up to 6 mm. Follow-up guidelines provided below. 6. Pneumomediastinum. 7. Nonspecific mid to distal esophageal wall thickening with periesophageal inflammation. Correlate c linically to exclude esophagitis. 8. Cholelithiasis. Please refer to below summary of Fleischner criteria recommendations for follow-up of incidental CT n odules (Pippa Luna, Guidelines for management of small pulmonary nodules detected on CT scans: A sta tement from the Fleischner Society, Radiology 237: [phone].) SOLID NODULES Note: newly detected indeterminate nodule in persons 35 years of age or older. * Low risk patients: minimal or absent history of smoking and/or other known risk factors * high risk patients: history of smoking or of other known risk factors (e.g. first degree relative with lung cancer, or exposure to asbestos, radon, uranium) * if a nodule up to 8 mm is partly solid or is ground glass further follow-up is required after 24 m onths to exclude possible slow growing adenocarcinoma (YUE) SUBSOLID NODULES Multiple subsolid nodules * nodule size <6 mm - follow-up CT at 3-6 months, consider further follow-up at 2 and 4 years if sta ble * nodule size >=6 mm - follow-up CT at 3-6 months, subsequent management based on the most suspiciou s nodule(s) The above report was generated using voice recognition software. It may contain grammatical, syntax o r spelling errors. ACT 112: Negative or not required by law. Electronically signed by: All Osullivan M.D. 12/18/2021 8:30 AM
[2021-12-18] MEDS: BENZONATATE 100 MG CAPSULE PO SCH ×3 (08:32→21:11)
[2021-12-18] MEDS: LANTUS PER UNIT CHARGE SQ SCH ×2 (08:42→20:59)
[2021-12-18 09:14] LABS: Basophils # (auto) 0.02 K/uL (0-0.2); Basophils % (auto) 0.5 %; Eosinophils # (auto) 0.15 K/uL (0-0.50); Eosinophils % (auto) 3.6 %; Hematocrit (blood only) 39.3 % (34.1-44.9); Hemoglobin 11.6 g/dl (12.0-16.0); Immature Granulocytes # (auto) 0.02 K/uL (0.00-0.02); Immature Granulocytes % (auto) 0.5 %; Lymphocytes % (auto) 16.8 %; Mean Corpuscular Hemoglobin 25.3 pg (25.0-34.0); Mean Corpuscular Hgb Conc 29.5 g/dL (32.0-36.0); Mean Corpuscular Volume 85.6 fL (80.0-100.0); Mean Platelet Volume 10.3 fL (9.4-12.3); Monocytes # (auto) 0.62 K/uL (0.24-0.82); Monocytes % (auto) 14.9 %; Neutrophils # (auto) 2.66 K/uL (1.4-6.5); Neutrophils % (auto) 63.7 %; Platelet Count 171 K/uL (130-400); RDW Coefficient of Variation 19.2 % (11.5-14.5); RDW Standard Deviation 57.7 fL (36.4-46.3); Red Blood Count 4.59 M/uL (3.93-5.22); White Blood Count 4.17 K/ul (4.8-10.8)
[2021-12-18 09:47] LABS: BUN Creatinine Ratio 17.2 (10-20); C Reactive Protein 11.13 mg/dl (0-0.5); Calcium 9.2 mg/dl (8.5-10.1); Creatinine Clr Calc Pharmacy 13.4 ml/min; Est GFR (African American) 14.9 ml/min; Est GFR (Non-African American) 12.9 ml/min; Potassium 3.9 mmol/L (3.5-5.1)
--- NOTE | 2021-12-18 10:06 | Nephrology Progress Note ---
Date of Service December 18, 2021 Assessment & Plan (1) ESRD (end stage renal disease) on dialysis: (2) Volume overload: (3) Aortic stenosis: (4) Status post above-knee amputation of right lower extremity: Plan 81-year-old F with ESRD on HD MWF at [facility], admitted with volume overload after she presented to ER with SOB. CXR shower Rt pL effusion and pulmonary edema. On admission her weight was 70 kg and she had 3 days back to back dialysis and her dry weight brought down to 63 kg. She had dialysis yesterday and overall she is feeling well, has been lying flat without any symptom. Has and MR and there was concern that her severe is contributing to volume issue. She was evaluated by Cardiology and felt that her aortic stenosis is not critical and unlikely to have major impact on volume status with any intervention for at this time but can be evaluated again in future if there is issues with volume overload. Of course with her significant comorbidities any intervention will be associated with significant risk. Diagnosed with COVID on 12/15/21. Had thoracentesis on 12/16/2021 for large right pleural effusion, complicated by pneumothorax, currently has drainage. Overall she is doing well with improvement in her volume status, has some cough but otherwise asymptomatic. no respiratory distress. Blood pressure stable. -- Had dialysis yesterday, had 1 L UF, volume status acceptable. Electrolyte acceptable. Will keep on Friday, Friday, Friday dialysis schedule. --monitor CBC, electrolytes Will follow Admission and Anticipated Discharge Date Admission Date: December 11, 2021 Jason Masters has been overall feeling well, had HD yesterday, no significant SOB, had fever yesterday and now COVID positive. Direct physical exam was not done due to COVID isolation, discussed with care team. Had HD yesterday for 3 h, 1 L UF Results & Data ([facility]) Vital Signs (Past 12 Hours) Vital Signs Temp Pulse Pulse Pulse Resp BP Pulse Ox 12/18/21 07:46 36.6 C 68 18 119/66 98 12/18/21 07:04 77 12/18/21 03:13 37.0 C 47 L 15 144/6 H 95 12/18/21 00:00 36.5 C 59 L 18 108/73 94 12/17/21 23:13 76 O2 Del Method 12/18/21 07:46 Room Air 08/09/22 07:04 12/18/21 03:13 Room Air 12/18/21 00:00 Room Air 12/17/21 23:13 PG Care Time/CCT Total # of Minutes Spent Total Time Spent with Patient: Total time spent is greater than 50% in coordination of care (as documented) at patient's floor/unit and/or counseling patient: Coding Level of Care Code 71598 Subseq Hosp Care Lvl 2 Diagnoses ESRD (end stage renal disease) on dialysis N18.6; Z99.2 Volume overload E87.70 Aortic stenosis I35.0 Status post above-knee amputation of right lower extremity Z89.611
--- NOTE | 2021-12-18 14:14 | Procedure Note ---
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 Emiliano Bynum Indication: Persistent pneumothorax, current catheter not functioning well Consent: Signed by patient and verified with timeout prior to procedure Anesthesia: 5 mL's 1% lidocaine without epinephrine local. Procedure: Consent was verified and timeout performed. Appropriate imaging studies were reviewed prior to the procedure. Right side up decubitus position. The dressing for the current pigtail catheter was taken down. An area approximately 4 cm lateral and the posterior axillary line was prepped using chlorhexidine. Sterile field was established. Skin and subcutaneous tissues were anesthetized using a 22-gauge needle. A small skin parker was made with the scalpel. An 18- gauge needle was then placed on the syringe and advanced through the skin parker over the rib into the pleural space. Air was easily aspirated. The syringe was detached leaving the needle in place. A wire was then passed through the needle into the pleural space. The needle was then withdrawn leaving the wire in place. Serial dilators were used to dilate the tract. A 12 Latvian [employer] pigtail locking catheter was then advanced over the wire. The wire and straightening mechanism were removed from the pigtail catheter. Pigtail mechanism was engaged and locked in place. The tube was attached to suction with good tidling and 2+ bubbling. The skater fixation system was used to secure the catheter after a petroleum impregnated gauze was placed around the incision site. Tegaderms were used to reinforce along the course of the catheter to the chest wall. Post procedure chest x-ray is pending. The patient tolerated the procedure well without obvious complication. We will keep the existing catheter in place. Both catheters were placed to 40 cm wall suction. There is good tidling on the 12 Latvian catheter with air leak noted. the existing 14 Fr catheter is showing no air leak and no tidling and may be able to be removed in the near future. Coding CPT Codes Pulmonary/Thoracic - Pulmonary and Thoracic: 86103 Pleural drainage w/o imaging ([id number]) [facility] [place] Procedure Codes (Charges) Pulmonary/Thoracic Procedure 1: Pulmonary and Thoracic: 76973 Pleural drainage w/o imaging
--- NOTE | 2021-12-18 14:18 | Pulmonology Progress Note ---
Date of Service December 18, 2021 Assessment & Plan (1) Pleural effusion: (2) Hydropneumothorax: (3) COVID-19: Plan Impression: 81-year-old female with pleural effusion which appears to be borderline exudative. It does not appear that cell counts were sent. Cytology is pending. Gram stain negative. Unclear if this is related to underlying heart disease, kidney disease, or COVID (much less likely). She has a persistent hydropneumothorax at the lung base despite placement of a 14 Latvian pigtail catheter. I flushed the catheter and continued suction however we were unable to alleviate the significant air leak and the catheter appears either nonfunctional or the patient has significant trapped lung. Both are possibilities. Recommendations: 1. Pleural effusion: Await cytology and cultures. Optimization of the patient's volume status with nephrology and cardiology recommended. 2. Pneumothorax: Unclear if this is pneumo ex vacuo. We placed a second 12 Latvian pigtail catheter in the pneumothorax and attach that to suction. We will follow-up with imaging studies and see if this improves. The patient is relatively asymptomatic. If the lung does not come up, this may represent trapped lung and removal of the catheters and allowing the pleural fluid to reaccumulate would be recommended. Definitive therapy would require video- assisted thoracoscopic decortication which does not appear to be indicated currently. We will follow-up chest x-ray post catheter placement as well as chest x-ray in a.m. Keep both chest tubes to 40 cm of wall suction for now 3. COVID. Patient is on room air. No additional adjuvant therapy is necessary at this point time. Management of the patient's other medical issues is deferred to the patient's primary service. Admission and Anticipated Discharge Date Admission Date: December 11, 2021 Subjective Patient seen and examined. EMR reviewed. The patient is doing well clinically. She reports no respiratory difficulty. No cough. No pain at the catheter site. She is not had fevers chills or night sweats. Review of Systems Review of Systems: All systems reviewed & are unremarkable except as noted in Subjective Physical Exam Constitutional: WD/WN, vitals as above Neck: trachea midline, no thyromegaly Respiratory: normal respiratory effort, lungs clear to auscultation Cardiovascular: RRR, no murmur, no edema Chest (Breasts): Additional Comments: The chest tube showed no air leak and no tidling. Gastrointestinal (Abdomen): normal bowel sounds, soft, nontender, no hepatosplenomegaly Musculoskeletal: Extremities: extremities normal to inspection Skin: no rashes, warm and dry Neurologic: Nonfocal exam Lymphatic: no cervical lymphadenopathy Results & Data Results & Data ([facility]) Vital Signs (Past 12 Hours) Vital Signs Temp Pulse Pulse Pulse Resp BP Pulse Ox 12/18/21 13:20 36.6 C 74 16 108/64 94 12/18/21 10:34 12/18/21 07:46 36.6 C 68 18 119/66 98 12/18/21 07:04 77 12/18/21 03:13 37.0 C 47 L 15 144/6 H 95 O2 Del Method 12/18/21 13:20 Room Air 12/18/21 10:34 Room Air 12/18/21 07:46 Room Air 12/18/21 07:04 12/18/21 03:13 Room Air Laboratory Results 12/18/21 09:02 12/18/21 09:[address] chest reviewed. Large hydropneumothorax at the lung base noted. The catheter appears to be migrating slightly but still appears to be within the pleural space. PG Care Time/CCT Total # of Minutes Spent Total Time Spent with Patient: Total time spent is greater than 50% in coordination of care (as documented) at patient's floor/unit and/or counseling patient: Coding Level of Care Code 73884 Subseq Hosp Care Lvl 3 Diagnoses Pleural effusion J90 Hydropneumothorax J94.8 COVID-19 U07.1
--- NOTE | 2021-12-18 14:35 | XRay Report ---
XR chest 1V portable CLINICAL HISTORY: Status post new right-sided chest tube placement. Shortness of breath.. COMPARISON STUDY: 12/17/2021 at 8:41 AM TECHNIQUE: 1 view of the chest FINDINGS: Single frontal view of the chest demonstrates the cardiomediastinal silhouette to be within normal li mits. Compared to the previous examination, a second chest tube has been placed at the right lung bas e more cephalad to the previous chest tube. There is approximately 25% decrease in the size of the pn eumothorax when compared to the previous study. The left hemithorax is clear. There is no evidence for pleural effusion. There is no evidence for vas cular congestion. There is no acute osseous pathology. IMPRESSION: 1. Status post placement of second chest tube within the right lung base with approximately 25% decre ase in the size of the right basilar pneumothorax. ACT 112: Negative or not required by law. Electronically signed by: Cam Monsivais M.D. 12/18/2021 2:33 PM
[2021-12-18] MEDS: oxyCODONE HCL IR 5 MG TAB (IMMEDIATE RELEASE) PO PRN ×2 (15:09→17:01)
--- NOTE | 2021-12-18 16:27 | Hospitalist Progress Note ---
Date of Service December 18, 2021 Assessment & Plan (1) COVID-19: Plan: first day of illness - 12/15/21 (tested + then as well). remains unwell but stable. No hypoxia/No O2 requirement. no PNA on Chest CT if any worsening hypoxia -- add dexamethasone 6mg IV daily. defer for now. not a candidate for paxlovid or Remdesivir (due to ESRD). cont airborne isolation. (2) Pleural effusion: Plan: right s/p thoracentesis 12/16/[address] Boogie 1000cc of fluid obtained; transudative by Light's criteria, but borderline exudative. culture thus far negative. pathology pending. complicated by pneumothorax s/p pigtail catheter placement post-procedural cxrs noted defer catheter management to pulmonary -placed a second pigtail catheter today byu PULM concern for possible trapped lung-appreciate PULM management -add oxycodone prn moderate-severe pain (3) Hydropneumothorax: Plan: right see #2 above pigtail catheter remains in place cxr noted other possibility is that this is trapped lung defer management to pulmonary (4) Aortic stenosis: Plan: mod-severe. seen by cardiology - felt NOT contributing to #5 below. (5) Volume overload: Plan: Improved s/p 4 serial HD sessions last week with 10-15 pounds of weight removed. TSH wnl. s/p HD now per usual schedule M/W/. Formal consult by cardiology appreciated - volume overload issues not felt to be driven by valvular heart disease (moderate-severe ). Ischemia possible but felt unlikely per cardiology. Appreciate cards/nephro consults & assistance. Appreciate pulmonary consultation for right sided effusion. (6) Pulmonary edema: Plan: Improving. see above. (7) ESRD (end stage renal disease) on dialysis: Plan: Typical outpatient schedule M/W/F. s/p 4 serial treatments on 12/12, 12/13, 12/14, 12/15. s/p usual treatments now Appreciate nephrology assistance. (8) Hypertension, uncontrolled: Plan: Continue amlodipine, hydralazine, and Imdur Continue with hemodialysis for fluid management will need to ask pharmacy to schedule her BP meds AFTER HD on HD days to avoid iatrogenic hypotension (9) Type 2 diabetes mellitus with insulin therapy: Plan: Continue Lantus as well as NovoLog SSI Controlled Hemoglobin A1c is 5.5% Continue with diabetic diet (10) DVT prophylaxis: Plan: Heparin SC BID in am (11) CAD (coronary artery disease): Plan: I can't find any record of a previous cardiac cath. Saw Dr Hamm in 2020 - no mention of formal dx of CAD. Wall motion abnormalities are seen on echo this admission. Thus, can't rule out underlying CAD. Cardiology saw in consult this weekend - defer on w/u for CAD at this time. Cont statin. Cont asa. Should be on BB. Is already on imdur, amlodipine. (12) Dyslipidemia: Plan: Cont statin (13) History of Graves' disease: Plan: noted TSH wnl this admission (14) Unilateral AKA: Plan: right (15) Chronic systolic CHF (congestive heart failure): Plan: EF 45-50% on echo this admission. Was 60-65% in 06/2021. Cardiology consult appreciated. She will need close f/u with Dr Hamm post-d/c. Her is not felt to be causing her current volume overloaded state. (16) Ischemic cardiomyopathy: Plan: Wall motion abnormalities noted on echo this admission. Cont asa, statin, etc. Cards consult appreciated. Plan pt's daughter updated at the bedside today Dispo-continued stay Admission and Anticipated Discharge Date Admission Date: December 11, 2021 Subjective Pt having a lot of pain in right chest wall from second chest tube placement today. Otherwise no issues. No significant BM in many days but does not want any laxatives or softeners. Tele with NSR, PACs, normal rates Review of Systems Review of Systems: All systems reviewed & are unremarkable except as noted in HPI & below Physical Exam Physical Exam: gen -NAD but appears uncomfortable, AAOx3 mouth - MMM neck - no JVD heart - RR, irregular (ectopy), s1 s2, 2/6 systolic murmur RUSB lungs - decreased BS right base, CTA apices, no wheeze, no increased work of breathing abd - soft NT ND BS+ ext - right AKA, left leg 2+ pulses and no edema, left arm AV fistula psych - a/o x 3 Results & Data Results & Data ([facility]) Vital Signs (Past 12 Hours) Vital Signs Temp Pulse Pulse Resp BP Pulse Ox O2 Del Method 08/09/22 15:46 79 12/18/21 14:35 36.8 C 75 18 129/66 97 12/18/21 13:20 36.6 C 74 16 108/64 94 Room Air 12/18/21 10:34 Room Air 12/18/21 07:46 36.6 C 68 18 119/66 98 Room Air 12/18/21 07:04 77 Laboratory Results 12/18/21 12/18/21 12/18/21 Range/Units 12:01 09:02 09:02 WBC 4.17 L (4.8-10.8) K/ul RBC 4.59 (3.93-5.22) M/uL Hgb 11.6 L (12.0-16.0) g/dl Hct 39.3 (34.1-44.9) % MCV 85.6 (80.0-100.0) fL MCH 25.3 (25.0-34.0) pg MCHC 29.5 L (32.0-36.0) g/dL RDW Std Deviation 57.7 H (36.4-46.3) fL RDW Coeff of Chris 19.2 H (11.5-14.5) % Plt Count 171 (130-400) K/uL MPV 10.3 (9.4-12.3) fL Immature Gran % (Auto) 0.5 % Neut % (Auto) 63.7 % Lymph % (Auto) 16.8 % [place] % (Auto) 14.9 % Eos % (Auto) 3.6 % Baso % (Auto) 0.5 % Neut # (Auto) 2.66 (1.4-6.5) K/uL Lymph # (Auto) 0.70 L (1.2-3.4) K/uL [place] # (Auto) 0.62 (0.24-0.82) K/uL Eos # (Auto) 0.15 (0-0.50) K/uL Baso # (Auto) 0.02 (0-0.2) K/uL Immature Gran # (Auto) 0.02 (0.00-0.02) K/uL Sodium 132 L (136-145) mmol/L Potassium 3.9 (3.5-5.1) mmol/L Chloride 95 L (98-107) mmol/L Carbon Dioxide 27 (21-32) mmol/L Anion Gap 10 (3-11) BUN 56 H (6-23) mg/dl Creatinine 3.25 H D (0.6-1.2) mg/dl Est Cr Clr Drug Dosing 13.4 ml/min Est GFR ( Amer) 14.9 ml/min Est GFR (Non-Af Amer) 12.9 ml/min BUN/Creatinine Ratio 17.2 (10-20) Glucose 186 H (70-99(Fasting)) mg/dl POC Glucose 155 H (70-99) mg/dl Calcium 9.2 (8.5-10.1) mg/dl C-Reactive Protein 11.13 H (0-0.5) mg/dl 12/18/21 12/17/21 12/17/21 Range/Units 07:42 20:40 16:27 WBC (4.8-10.8) K/ul RBC (3.93-5.22) M/uL Hgb (12.0-16.0) g/dl Hct (34.1-44.9) % MCV (80.0-100.0) fL MCH (25.0-34.0) pg MCHC (32.0-36.0) g/dL RDW Std Deviation (36.4-46.3) fL RDW Coeff of Chris (11.5-14.5) % Plt Count (130-400) K/uL MPV (9.4-12.3) fL Immature Gran % (Auto) % Neut % (Auto) % Lymph % (Auto) % [place] % (Auto) % Eos % (Auto) % Baso % (Auto) % Neut # (Auto) (1.4-6.5) K/uL Lymph # (Auto) (1.2-3.4) K/uL [place] # (Auto) (0.24-0.82) K/uL Eos # (Auto) (0-0.50) K/uL Baso # (Auto) (0-0.2) K/uL Immature Gran # (Auto) (0.00-0.02) K/uL Sodium (136-145) mmol/L Potassium (3.5-5.1) mmol/L Chloride (98-107) mmol/L Carbon Dioxide (21-32) mmol/L Anion Gap (3-11) BUN (6-23) mg/dl Creatinine (0.6-1.2) mg/dl Est Cr Clr Drug Dosing ml/min Est GFR ( Amer) ml/min Est GFR (Non-Af Amer) ml/min BUN/Creatinine Ratio (10-20) Glucose (70-99(Fasting)) mg/dl POC Glucose 121 H 148 H 155 H (70-99) mg/dl Calcium (8.5-10.1) mg/dl C-Reactive Protein (0-0.5) mg/dl Diagnostic Findings CXR image personally reviewed by me and agree with the following report: Chest X-Ray 12/18/21 14:07 XR chest 1V portable CLINICAL HISTORY: Status post new right-sided chest tube placement. Shortness of breath.. COMPARISON STUDY: 12/17/2021 at 8:41 AM TECHNIQUE: 1 view of the chest FINDINGS: Single frontal view of the chest demonstrates the cardiomediastinal silhouette to be within normal limits. Compared to the previous examination, a second chest tube has been placed at the right lung base more cephalad to the previous chest tube. There is approximately 25% decrease in the size of the pneumothorax when compared to the previous study. The left hemithorax is clear. There is no evidence for pleural effusion. There is no evidence for vascular congestion. There is no acute osseous pathology. IMPRESSION: 1. Status post placement of second chest tube within the right lung base with approximately 25% decrease in the size of the right basilar pneumothorax. ACT 112: Negative or not required by law. Electronically signed by: Cam Monsivais M.D. 12/18/2021 2:33 PM PG Care Time/CCT Total # of Minutes Spent Total Time Spent with Patient: Total time spent is greater than 50% in coordination of care (as documented) at patient's floor/unit and/or counseling patient: Coding Level of Care Code 02580 Subseq Hosp Care Lvl 2 Diagnoses COVID-19 U07.1 Pleural effusion J90 Hydropneumothorax J94.8 Aortic stenosis I35.0 Volume overload E87.70 Pulmonary edema J81.1 ESRD (end stage renal disease) on dialysis N18.6; Z99.2 Hypertension, uncontrolled I10 Type 2 diabetes mellitus with insulin therapy E11.9; Z79.4 DVT prophylaxis Z29.9 CAD (coronary artery disease) I25.10 Dyslipidemia E78.5 History of Graves' disease Z86.39 Unilateral AKA S78.119A Chronic systolic CHF (congestive heart failure) I50.22 Ischemic cardiomyopathy I25.5
[2021-12-18] MEDS: ATORVASTATIN 40 MG TAB PO SCH (21:05)
[2021-12-19] MEDS: oxyCODONE HCL IR 5 MG TAB (IMMEDIATE RELEASE) PO PRN ×3 (01:36→21:23)
[2021-12-19] MEDS: amLODIPine BESYLATE 5 MG TAB PO SCH ×2 (08:28→21:15)
[2021-12-19] MEDS: hydrALAZINE TAB 50 MG TAB PO SCH ×3 (08:29→21:17)
[2021-12-19] MEDS: DOCUSATE SODIUM 100 MG CAP PO SCH ×2 (08:29→21:19)
[2021-12-19] MEDS: INSULIN ASPART PER UNIT SC SCH ×4 (08:34→20:36)
[2021-12-19] MEDS: LANTUS PER UNIT CHARGE SQ SCH ×2 (08:34→20:58)
[2021-12-19] MEDS: ASCORBIC ACID 500 MG TAB PO SCH (08:42)
[2021-12-19] MEDS: SEVELAMER HCL 800 MG TABLET PO SCH ×3 (08:42→18:00)
[2021-12-19] MEDS: CHOLECALCIFEROL 1,000 UNITS 25 MCG TAB PO SCH ×2 (08:43→21:17)
[2021-12-19] MEDS: ASPIRIN 81 MG ECTAB PO SCH (08:43)
[2021-12-19] MEDS: BENZONATATE 100 MG CAPSULE PO SCH ×3 (08:43→21:15)
[2021-12-19] MEDS: CALCIUM 600MG + VIT D 400 IU TAB PO SCH (08:43)
[2021-12-19] MEDS: HEPARIN SOD 5,000 UNIT/0.5 ML VIAL SQ SCH ×2 (08:43→21:18)
[2021-12-19] MEDS: ISOSORBIDE MONO EXTENDED REL 60 MG TABCR PO SCH (08:44)
[2021-12-19] MEDS: MULTIVITAMIN TAB PO SCH (08:44)
[2021-12-19] MEDS: VENLAFAXINE HCL XR 150 MG CAPXR PO SCH (08:45)
[2021-12-19] MEDS: CEROVITE ADV FORMULA TAB PO SCH (08:45)
--- NOTE | 2021-12-19 11:57 | Nephrology Progress Note ---
Date of Service December 19, 2021 Assessment & Plan (1) ESRD (end stage renal disease) on dialysis: (2) Volume overload: (3) Aortic stenosis: (4) Status post above-knee amputation of right lower extremity: Plan 81-year-old F with ESRD on HD MWF at [facility], admitted with volume overload after she presented to ER with SOB. CXR shower Rt pL effusion and pulmonary edema. On admission her weight was 70 kg and she had 3 days back to back dialysis and her dry weight brought down to 63 kg. She had dialysis yesterday and overall she is feeling well, has been lying flat without any symptom. Has and MR and there was concern that her severe is contributing to volume issue. She was evaluated by Cardiology and felt that her aortic stenosis is not critical and unlikely to have major impact on volume status with any intervention for at this time but can be evaluated again in future if there is issues with volume overload. Of course with her significant comorbidities any intervention will be associated with significant risk. Diagnosed with COVID on 12/15/21. Had thoracentesis on 12/16/2021 for large right pleural effusion, complicated by pneumothorax, currently has drainage. Overall she is doing well with improvement in her volume status, has some cough but otherwise asymptomatic. no respiratory distress. Blood pressure stable. --So far tolerating dialysis although volume and blood pressure dropped, will decrease the UF rate and decrease dry weight to 62 kg. -- Dose medications for GFR less than 10 --monitor CBC, electrolytes Will follow Admission and Anticipated Discharge Date Admission Date: December 11, 2021 Jason Masters has been overall feeling well, no significant SOB, fever or chills. Having dialysis today but blood pressure rapidly drop during dialysis, volume status seems acceptable. Review of Systems Review of Systems: Detailed review of system was otherwise unremarkable except mentioned above in HPI. Physical Exam Constitutional: WD/WN, vitals as above no acute distress Eyes: + anicteric sclerae ENMT: Ears: no hearing impairment Neck: normal visual inspection Respiratory: normal respiratory effort; no respiratory distress Auscultation: + diminished lung sounds ( Right lower lobe); no crackles and no wheezes Cardiovascular: Rate/Rhythm: regular rate and regular rhythm Heart Sounds: normal S1 and normal S2 Extremities: no edema Skin: no rashes Neurologic: no focal motor deficits and not confused Psychiatric: Orientation: alert and oriented x 3 Results & Data ([facility]) Vital Signs (Past 12 Hours) Vital Signs Temp Pulse Pulse Pulse Pulse Resp BP 12/19/21 11:40 60 80/58 L 12/19/21 11:45 12/19/21 11:20 61 98/47 L 12/19/21 11:00 59 L 119/31 L 12/19/21 10:40 71 101/45 L 12/19/21 10:20 71 84/42 L 12/19/21 10:00 74 83/55 L 12/19/21 09:40 55 L 100/53 L 12/19/21 09:20 68 96/47 L 12/19/21 08:54 36.5 C 68 12/19/21 08:24 36.4 C L 72 18 12/19/21 07:48 67 12/19/21 03:59 36.5 C 72 20 BP Pulse Ox O2 Del Method 12/19/21 11:40 12/19/21 11:45 Room Air 12/19/21 11:20 12/19/21 11:00 12/19/21 10:40 12/19/21 10:20 12/19/21 10:00 12/19/21 09:40 12/19/21 09:20 12/19/21 08:54 12/19/21 08:24 125/63 96 Room Air 12/19/21 07:48 12/19/21 03:59 124/67 96 Room Air PG Care Time/CCT Total # of Minutes Spent Total Time Spent with Patient: Total time spent is greater than 50% in coordination of care (as documented) at patient's floor/unit and/or counseling patient: Coding Level of Care Code 84155 Subseq Hosp Care Lvl 2 Diagnoses ESRD (end stage renal disease) on dialysis N18.6; Z99.2 Volume overload E87.70 Aortic stenosis I35.0 Status post above-knee amputation of right lower extremity Z89.611
--- NOTE | 2021-12-19 12:38 | Pulmonology Progress Note ---
Date of Service December 19, 2021 Assessment & Plan (1) Pleural effusion: (2) Hydropneumothorax: (3) COVID-19: Plan Attending: Dr. Bynum Impression: This is a 81-year-old female with pleural effusion which appears to be borderline exudative. It does not appear that cell counts were sent. Cytology reveals benign mesothelial cells and frequently lymphocytes. There is no evidence of malignancy. Gram stain negative. Unclear if this is related to underlying heart disease, kidney disease, or COVID (much less likely). She has a persistent hydropneumothorax at the lung base despite placement of a 14 Prydeinig pigtail catheter. I flushed the catheter and continued suction however we were unable to alleviate the significant air leak and the catheter appears either nonfunctional or the patient has significant trapped lung. Both are possibilities. Recommendations: 1. Pleural effusion: * Cytology and cultures are both negative * 14 Prydeinig chest tube should be removed today. We will retain the 12 Prydeinig chest tube and keep it to suction at -40 cm of water. * Unclear etiology. Suspect that this may be related to her congestive heart failure * Patient continues with ultrafiltration with dialysis * Optimization of the patient's volume status with nephrology and cardiology recommended. 2. Pneumothorax: * Unclear if this is pneumo ex vacuo. * 14 Prydeinig chest tube will be removed today. We will retain the 12 Prydeinig pigtail catheter at -40 cm of water. Repeat chest x-ray 90 minutes after removal of 14 Prydeinig chest tube * The patient is relatively asymptomatic. If the lung does not come up, this may represent trapped lung and removal of the catheters and allowing the pleural fluid to reaccumulate would be recommended. Definitive therapy would require video-assisted thoracoscopic decortication which does not appear to be indicated currently. 3. COVID. * Serology for COVID was negative on admission. Repeat serology showed positive PCR * Continue isolation precautions * Relatively asymptomatic * Continue other treatment as above Thank you for including us in the care of this patient. We will continue to follow along with you until we are able to remove the remaining chest tube. Admission and Anticipated Discharge Date Admission Date: December 11, 2021 Subjective Attending: Dr. Bynum Patient seen and examined in room 232. She is currently a dialysis. She has 30 minutes remaining. They have had difficulty pulling off excess fluid with ultrafiltration today. Patient states that she just does not feel well but is n ot able to elucidate specific symptoms. She denies fever, chills, sweats, rigors. She has no complaints regarding her breathing. She has no pain from either of the chest tubes that are in place. She has no other acute findings. Review of Systems Review of Systems: A total of 10 systems was reviewed and is negative other than as listed in the HPI Physical Exam Physical Exam: GENERAL : No acute distress EYES: No icterus, gaze conjugate NOSE: No evidence of epistaxis MOUTH: No lesions or candidiasis NECK: Supple LUNGS: CTA B/L, no wheezes, rales or rhonchi HEART: Regular, rate controlled ABDOMEN: Soft, NT, ND, BS Present BACK: Patient has 2 chest tubes in the right back and flank. There is a blue 12 Prydeinig as well as a white 14 Prydeinig. Dressings are dry and intact on both chest tubes. There is respiratory variation on the 12 Prydeinig associated with a grade 1 airleak in the Pleur-evac. There appears to be no respiratory variation on the 14 Prydeinig with no airleak or drainage into the Pleur-evac. Patient has some minimal tenderness to palpation around both chest tubes. There is no evidence of extending erythema or warmth to suggest any cellulitis or infection in the area of the chest tube insertions. EXTREMITIES: No LE edema, pedal pulses intact NEURO: A&OX3 Results & Data Results & Data ([facility]) Vital Signs (Past 12 Hours) Vital Signs Temp Pulse Pulse Pulse Pulse Resp BP 12/19/21 12:00 45 L 96/37 L 12/19/21 11:40 60 80/58 L 12/19/21 11:45 12/19/21 11:20 61 98/47 L 12/19/21 11:00 59 L 119/31 L 12/19/21 10:40 71 101/45 L 12/19/21 10:20 71 84/42 L 12/19/21 10:00 74 83/55 L 12/19/21 09:40 55 L 100/53 L 12/19/21 09:20 68 96/47 L 12/19/21 08:54 36.5 C 68 12/19/21 08:24 36.4 C L 72 18 12/19/21 07:48 67 12/19/21 03:59 36.5 C 72 20 BP Pulse Ox O2 Del Method 12/19/21 12:00 12/19/21 11:40 12/19/21 11:45 Room Air 12/19/21 11:20 12/19/21 11:00 12/19/21 10:40 12/19/21 10:20 12/19/21 10:00 12/19/21 09:40 12/19/21 09:20 12/19/21 08:54 12/19/21 08:24 125/63 96 Room Air 12/19/21 07:48 12/19/21 03:59 124/67 96 Room Air Critical Care Results & Data Vital Signs (Past 12 Hours) Vital Signs Temp Pulse Pulse Pulse Pulse Resp BP 12/19/21 12:00 45 L 96/37 L 12/19/21 11:40 60 80/58 L 12/19/21 11:45 12/19/21 11:20 61 98/47 L 12/19/21 11:00 59 L 119/31 L 12/19/21 10:40 71 101/45 L 12/19/21 10:20 71 84/42 L 12/19/21 10:00 74 83/55 L 12/19/21 09:40 55 L 100/53 L 12/19/21 09:20 68 96/47 L 12/19/21 08:54 36.5 C 68 12/19/21 08:24 36.4 C L 72 18 12/19/21 07:48 67 12/19/21 03:59 36.5 C 72 20 BP Pulse Ox O2 Del Method 12/19/21 12:00 12/19/21 11:40 12/19/21 11:45 Room Air 12/19/21 11:20 12/19/21 11:00 12/19/21 10:40 12/19/21 10:20 12/19/21 10:00 12/19/21 09:40 12/19/21 09:20 12/19/21 08:54 12/19/21 08:24 125/63 96 Room Air 12/19/21 07:48 12/19/21 03:59 124/67 96 Room Air Lab & Micro Results (Past 24 Hours) No Data to Display No Data to Display No Data to Display Diagnostic Findings (Past 24 Hours) Chest X-Ray 12/18/21 14:07 XR chest 1V portable CLINICAL HISTORY: Status post new right-sided chest tube placement. Shortness of breath.. COMPARISON STUDY: 12/17/2021 at 8:41 AM TECHNIQUE: 1 view of the chest FINDINGS: Single frontal view of the chest demonstrates the cardiomediastinal silhouette t o be within normal limits. Compared to the previous examination, a second chest tube has been placed at the right lung base more cephalad to the previous chest tube. There is approximately 25% decrease in the size of the pneumothorax when compared to the previous study. The left hemithorax is clear. There is no evidence for pleural effusion. There is no evidence for vascular congestion. There is no acute osseous pathology. IMPRESSION: 1. Status post placement of second chest tube within the right lung base with approximately 25% decrease in the size of the right basilar pneumothorax. ACT 112: Negative or not required by law. Electronically signed by: Cam Monsivais M.D. 12/18/2021 2:33 PM I & O Totals 24 Hours 12/18/21 12/19/21 12/20/21 06:59 06:59 06:59 Intake Total 250 / 250 Output Total 216 / 216 Balance 249 / 249 -216 / -216 Cumulative 12/11/21 17:33 thru 12/19/21 08:54 Intake Total 2940 Output Total 387 Balance 2553 RT Ventilator Mngmt (Last Documented) Ventilator Ordered Settings Respiratory Rate 18 12/19/21 08:24 Ventilator - PT Measurements Respiratory Rate 18 PG Care Time/CCT Total # of Minutes Spent Total Time Spent with Patient: Total time spent is greater than 50% in coordination of care (as documented) at patient's floor/unit and/or counseling patient: 30 minutes including chest tube removal. Coding Level of Care Code 39530 Subseq Hosp Care Lvl 3 Diagnoses Pleural effusion J90 Hydropneumothorax J94.8 COVID-19 U07.1 Time Spent (min) 30
--- NOTE | 2021-12-19 13:14 | Procedure Note ---
Procedure Note Date of Service December 19, 2021 Note Procedure note for chest tube removal Date: 12/19/2021 Time: 12:00 noon Consent: Not indicated. Chest tube removal is discussed with the patient however and she is aware that is not functional and approves removal. Indication: Patient had chest tube placed which was a 14 Brazilian pigtail catheter by Dr. Boogie from the pulmonary service. He has been hooked to suction at -40 cm of water. There is no airleak and no evidence of any flow through the tube. In follow-up, Dr. Bynum then placed a 12 Brazilian pigtail catheter as it was unclear if the 14 Brazilian was working. Chest x-ray reveals good placement of the 12 Brazilian catheter. Inasmuch as the 14 Brazilian appears to be occluded, this pigtail catheter can be removed. Narrative: Patient placed in left lateral recumbent position. Both chest tubes were evaluated. Dressings are dry and intact. There is no significant erythema or drainage to the pads around the chest tube. The dressing around the 14 Brazilian pigtail catheter was removed and the area was examined. There is no evidence of overt infection. Catheter is secure with a silk suture in a Darin sandal type fashion. Using clean technique, the suture is cut with scissors from a sterile tray and all suture material was easily removed from the skin. While the patient was humming and creating positive pressure, chest tube was easily removed and a sterile gauze pad was placed over the insertion site. This was then covered with a clear Tegaderm making sure that there was complete adhesion of the Tegaderm to the skin to avoid any air leak. Patient tolerated the procedure well. The chest tube was examined upon removal. It was intact with no evidence of damage or significant bleeding or pus on the tube. Coding
--- NOTE | 2021-12-19 14:09 | XRay Report ---
XR chest 1V portable CLINICAL HISTORY: Follow-up pneumothorax and chest tube placement. COMPARISON STUDY: 12/18/2021 TECHNIQUE: 1 view of the chest FINDINGS: Single frontal view of the chest demonstrates the cardiomediastinal silhouette to be within normal li mits. Compared to the previous study, 2 right-sided pigtail catheters are again seen for a pneumothor ax in the right lung base. The size of the pneumothorax is not significantly changed from the previou s examination. The lungs are clear of alveolar opacities. There is minimal right basilar atelectasis. There is no evidence for pleural effusion. There is no evidence for vascular congestion. There is no acute osseous pathology. IMPRESSION: 1. No significant interval change in right-sided pneumothorax with 2 pigtail catheter chest tubes aga in seen. 2. There is minimal right basilar atelectasis. ACT 112: Negative or not required by law. Electronically signed by: Cam Monsivais M.D. 12/19/2021 2:08 PM
[2021-12-19 16:22] LABS: Basophils # (auto) 0.02 K/uL (0-0.2); Basophils % (auto) 0.5 %; Eosinophils # (auto) 0.19 K/uL (0-0.50); Eosinophils % (auto) 4.6 %; Hematocrit (blood only) 38.9 % (34.1-44.9); Hemoglobin 11.6 g/dl (12.0-16.0); Immature Granulocytes # (auto) 0.01 K/uL (0.00-0.02); Immature Granulocytes % (auto) 0.2 %; Lymphocytes % (auto) 19.5 %; Mean Corpuscular Hemoglobin 25.2 pg (25.0-34.0); Mean Corpuscular Hgb Conc 29.8 g/dL (32.0-36.0); Mean Corpuscular Volume 84.6 fL (80.0-100.0); Mean Platelet Volume 10.4 fL (9.4-12.3); Neutrophils # (auto) 2.39 K/uL (1.4-6.5); Neutrophils % (auto) 58.2 %; Platelet Count 178 K/uL (130-400); RDW Coefficient of Variation 18.8 % (11.5-14.5); RDW Standard Deviation 56.2 fL (36.4-46.3); White Blood Count 4.11 K/ul (4.8-10.8)
[2021-12-19 16:47] LABS: BUN Creatinine Ratio 14.5 (10-20); Calcium 9.6 mg/dl (8.5-10.1); Creatinine Clr Calc Pharmacy 18.6 ml/min; Est GFR (African American) 22.2 ml/min; Est GFR (Non-African American) 19.2 ml/min
--- NOTE | 2021-12-19 19:50 | Hospitalist Progress Note ---
Date of Service December 19, 2021 Assessment & Plan (1) COVID-19: Plan: first day of illness - 12/15/21 (tested + then as well). remains unwell but stable. No hypoxia/No O2 requirement. no PNA on Chest CT if any worsening hypoxia -- add dexamethasone 6mg IV daily. defer for now. not a candidate for paxlovid or Remdesivir (due to ESRD). cont airborne isolation. (2) Pleural effusion: Plan: right s/p thoracentesis 12/16/[address] Boogie 1000cc of fluid obtained; transudative by Light's criteria, but borderline exudative. culture thus far negative. pathology pending. complicated by pneumothorax s/p pigtail catheter placement post-procedural cxrs noted defer catheter management to pulmonary -placed a second pigtail catheter 12/18 by PULM and old one removed 12/19 concern for possible trapped lung-appreciate PULM management -continue oxycodone prn moderate-severe pain (3) Hydropneumothorax: Plan: right see #2 above pigtail catheter remains in place cxr noted other possibility is that this is trapped lung defer management to pulmonary (4) Aortic stenosis: Plan: mod-severe. seen by cardiology - felt NOT contributing to #5 below. (5) Volume overload: Plan: Improved s/p 4 serial HD sessions last week with 10-15 pounds of weight removed. TSH wnl. s/p HD now per usual schedule M/W/F. Formal consult by cardiology appreciated - volume overload issues not felt to be driven by valvular heart disease (moderate-severe ). Ischemia possible but felt unlikely per cardiology. Appreciate cards/nephro consults & assistance. Appreciate pulmonary consultation for right sided effusion. (6) Pulmonary edema: Plan: Improving. see above. (7) ESRD (end stage renal disease) on dialysis: Plan: Typical outpatient schedule M/W/F. s/p 4 serial treatments on 12/12, 12/13, 12/14, 12/15. s/p usual treatments now Appreciate nephrology assistance. (8) Hypertension, uncontrolled: Plan: Continue amlodipine, hydralazine, and Imdur Continue with hemodialysis for fluid management will need to ask pharmacy to schedule her BP meds AFTER HD on HD days to avoid iatrogenic hypotension (9) Type 2 diabetes mellitus with insulin therapy: Plan: Continue Lantus as well as NovoLog SSI Controlled Hemoglobin A1c is 5.5% Continue with diabetic diet (10) DVT prophylaxis: Plan: Heparin SC BID in am (11) CAD (coronary artery disease): Plan: I can't find any record of a previous cardiac cath. Saw Dr Hamm in 2020 - no mention of formal dx of CAD. Wall motion abnormalities are seen on echo this admission. Thus, can't rule out underlying CAD. Cardiology saw in consult this weekend - defer on w/u for CAD at this time. Cont statin. Cont asa. Should be on BB. Is already on imdur, amlodipine. (12) Dyslipidemia: Plan: Cont statin (13) History of Graves' disease: Plan: noted TSH wnl this admission (14) Unilateral AKA: Plan: right (15) Chronic systolic CHF (congestive heart failure): Plan: EF 45-50% on echo this admission. Was 60-65% in 06/2021. Cardiology consult appreciated. She will need close f/u with Dr Hamm post-d/c. Her is not felt to be causing her current volume overloaded state. (16) Ischemic cardiomyopathy: Plan: Wall motion abnormalities noted on echo this admission. Cont asa, statin, etc. Cards consult appreciated. Plan pt's daughter updated at the bedside today Dispo-continued stay Admission and Anticipated Discharge Date Admission Date: December 11, 2021 Subjective Feeling a l ittle better today, less pain in chest but still painful to take a deep breath. No BM yet and refuses to use a bed cisneros. No other issues had HD today Tele with NSR, PVA,PACs Review of Systems Review of Systems: All systems reviewed & are unremarkable except as noted in HPI & below Physical Exam Physical Exam: gen -NAD but appears uncomfortable, AAOx3 mouth - MMM neck - no JVD heart - RR, irregular (ectopy), s1 s2, 2/6 systolic murmur RUSB lungs - decreased BS right base, CTA apices, no wheeze, no increased work of breathing abd - soft NT ND BS+ ext - right AKA, left leg 2+ pulses and no edema, left arm AV fistula psych - a/o x 3 Results & Data Results & Data ([facility]) Vital Signs (Past 12 Hours) Vital Signs Temp Pulse Pulse Pulse Resp BP BP 12/19/21 17:06 36.7 C 77 18 133/61 12/19/21 15:40 82 12/19/21 12:40 36.5 C 68 106/59 L 12/19/21 12:20 45 L 96/37 L 12/19/21 12:00 45 L 96/37 L 12/19/21 11:40 60 80/58 L 12/19/21 11:45 12/19/21 11:20 61 98/47 L 12/19/21 11:00 59 L 119/31 L 12/19/21 10:40 71 101/45 L 12/19/21 10:20 71 84/42 L 12/19/21 10:00 74 83/55 L 12/19/21 09:40 55 L 100/53 L 12/19/21 09:20 68 96/47 L 12/19/21 08:54 36.5 C 68 12/19/21 08:24 36.4 C L 72 18 125/63 12/19/21 07:48 67 Pulse Ox O2 Del Method 12/19/21 17:06 96 Room Air 12/19/21 15:40 12/19/21 12:40 12/19/21 12:20 12/19/21 12:00 12/19/21 11:40 12/19/21 11:45 Room Air 12/19/21 11:20 12/19/21 11:00 12/19/21 10:40 12/19/21 10:20 12/19/21 10:00 12/19/21 09:40 12/19/21 09:20 12/19/21 08:54 12/19/21 08:24 96 Room Air 12/19/21 07:48 Laboratory Results 12/19/21 12/19/21 12/19/21 Range/Units 16:59 16:09 16:09 WBC 4.11 L (4.8-10.8) K/ul RBC 4.60 (3.93-5.22) M/uL Hgb 11.6 L (12.0-16.0) g/dl Hct 38.9 (34.1-44.9) % MCV 84.6 (80.0-100.0) fL MCH 25.2 (25.0-34.0) pg MCHC 29.8 L (32.0-36.0) g/dL RDW Std Deviation 56.2 H (36.4-46.3) fL RDW Coeff of Chris 18.8 H (11.5-14.5) % Plt Count 178 (130-400) K/uL MPV 10.4 (9.4-12.3) fL Immature Gran % (Auto) 0.2 % Neut % (Auto) 58.2 % Lymph % (Auto) 19.5 % Callaway % (Auto) 17.0 % Eos % (Auto) 4.6 % Baso % (Auto) 0.5 % Neut # (Auto) 2.39 (1.4-6.5) K/uL Lymph # (Auto) 0.80 L (1.2-3.4) K/uL Callaway # (Auto) 0.70 (0.24-0.82) K/uL Eos # (Auto) 0.19 (0-0.50) K/uL Baso # (Auto) 0.02 (0-0.2) K/uL Immature Gran # (Auto) 0.01 (0.00-0.02) K/uL Sodium 134 L (136-145) mmol/L Potassium 4.0 (3.5-5.1) mmol/L Chloride 96 L (98-107) mmol/L Carbon Dioxide 32 (21-32) mmol/L Anion Gap 6 (3-11) BUN 34 H D (6-23) mg/dl Creatinine 2.34 H D (0.6-1.2) mg/dl Est Cr Clr Drug Dosing 18.6 ml/min Est GFR ( Amer) 22.2 ml/min Est GFR (Non-Af Amer) 19.2 ml/min BUN/Creatinine Ratio 14.5 (10-20) Glucose 74 (70-99(Fasting)) mg/dl POC Glucose 74 (70-99) mg/dl Calcium 9.6 (8.5-10.1) mg/dl 12/19/21 12/19/21 12/18/21 Range/Units 13:13 07:59 20:10 WBC (4.8-10.8) K/ul RBC (3.93-5.22) M/uL Hgb (12.0-16.0) g/dl Hct (34.1-44.9) % MCV (80.0-100.0) fL MCH (25.0-34.0) pg MCHC (32.0-36.0) g/dL RDW Std Deviation (36.4-46.3) fL RDW Coeff of Chris (11.5-14.5) % Plt Count (130-400) K/uL MPV (9.4-12.3) fL Immature Gran % (Auto) % Neut % (Auto) % Lymph % (Auto) % Callaway % (Auto) % Eos % (Auto) % Baso % (Auto) % Neut # (Auto) (1.4-6.5) K/uL Lymph # (Auto) (1.2-3.4) K/uL Callaway # (Auto) (0.24-0.82) K/uL Eos # (Auto) (0-0.50) K/uL Baso # (Auto) (0-0.2) K/uL Immature Gran # (Auto) (0.00-0.02) K/uL Sodium (136-145) mmol/L Potassium (3.5-5.1) mmol/L Chloride (98-107) mmol/L Carbon Dioxide (21-32) mmol/L Anion Gap (3-11) BUN (6-23) mg/dl Creatinine (0.6-1.2) mg/dl Est Cr Clr Drug Dosing ml/min Est GFR ( Amer) ml/min Est GFR (Non-Af Amer) ml/min BUN/Creatinine Ratio (10-20) Glucose (70-99(Fasting)) mg/dl POC Glucose 93 144 H 134 H (70-99) mg/dl Calcium (8.5-10.1) mg/dl PG Care Time/CCT Total # of Minutes Spent Total Time Spent with Patient: Total time spent is greater than 50% in coordination of care (as documented) at patient's floor/unit and/or counseling patient: Coding Level of Care Code 25456 Subseq Hosp Care Lvl 2 Diagnoses COVID-19 U07.1 Pleural effusion J90 Hydropneumothorax J94.8 Aortic stenosis I35.0 Volume overload E87.70 Pulmonary edema J81.1 ESRD (end stage renal disease) on dialysis N18.6; Z99.2 Hypertension, uncontrolled I10 Type 2 diabetes mellitus with insulin therapy E11.9; Z79.4 DVT prophylaxis Z29.9 CAD (coronary artery disease) I25.10 Dyslipidemia E78.5 History of Graves' disease Z86.39 Unilateral AKA S78.119A Chronic systolic CHF (congestive heart failure) I50.22 Ischemic cardiomyopathy I25.5
[2021-12-19] MEDS: ATORVASTATIN 40 MG TAB PO SCH (21:16)
[2021-12-20] MEDS: HEPARIN SOD 5,000 UNIT/0.5 ML VIAL SQ SCH ×2 (08:02→21:07)
[2021-12-20] MEDS: ASPIRIN 81 MG ECTAB PO SCH (08:02)
[2021-12-20] MEDS: ISOSORBIDE MONO EXTENDED REL 60 MG TABCR PO SCH (08:02)
[2021-12-20] MEDS: ASCORBIC ACID 500 MG TAB PO SCH (08:02)
[2021-12-20] MEDS: CHOLECALCIFEROL 1,000 UNITS 25 MCG TAB PO SCH ×2 (08:02→21:08)
[2021-12-20] MEDS: hydrALAZINE TAB 50 MG TAB PO SCH ×3 (08:02→21:06)
[2021-12-20] MEDS: CEROVITE ADV FORMULA TAB PO SCH (08:02)
[2021-12-20] MEDS: VENLAFAXINE HCL XR 150 MG CAPXR PO SCH (08:02)
[2021-12-20] MEDS: SEVELAMER HCL 800 MG TABLET PO SCH ×3 (08:02→17:50)
[2021-12-20] MEDS: amLODIPine BESYLATE 5 MG TAB PO SCH ×2 (08:02→21:07)
[2021-12-20] MEDS: DOCUSATE SODIUM 100 MG CAP PO SCH ×2 (08:03→21:09)
[2021-12-20] MEDS: MULTIVITAMIN TAB PO SCH (08:03)
--- NOTE | 2021-12-20 08:06 | Pulmonology Progress Note ---
Date of Service December 20, 2021 Assessment & Plan (1) Pleural effusion: (2) Hydropneumothorax: (3) COVID-19: Plan Impression: 81-year-old female with pleural effusion which appears to be borderline exudative. It does not appear that cell counts were sent. Cytology is negative. Gram stain negative with no growth to date. Unclear if this is related to underlying heart disease, kidney disease, or COVID (much less likely). The pneumothorax appears significantly improved on the x-ray today and there is no longer an air leak present. Recommendations: 1. Pleural effusion: Hopefully the fluid will not reaccumulate. Would follow clinically at this point time with attention to volume status. 2. Pneumothorax: Appears much better today on the x-ray. Given resolution of the air leak, will clamp the chest tube and repeat the chest x-ray in the a.m.. If the lung stays up, can likely discontinue the chest tube. If the pneumothorax recurs, can return the tube to suction. Options would be to keep the patient hospitalized or potentially consider sending her home with a H eimlich valve. 3. COVID. Patient is on room air. No additional adjuvant therapy is necessary at this point time. Management of the patient's other medical issues is deferred to the patient's primary service. Admission and Anticipated Discharge Date Admission Date: December 11, 2021 Subjective Patient seen and examined. EMR reviewed. Images independently reviewed. The patient is in no distress. She is awake alert and conversant. She is on room air. She is having some epigastric discomfort but no chest pain or other pulmonary symptoms. Her x-ray was completed this morning. Review of Systems Review of Systems: All systems reviewed & are unremarkable except as noted in Subjective Physical Exam Constitutional: WD/WN, vitals as above Neck: trachea midline, no thyromegaly Respiratory: normal respiratory effort, lungs clear to auscultation Cardiovascular: RRR, no murmur, no edema Chest (Breasts): Additional Comments: Chest tube continues to demonstrate respiratory variation. No air leak at rest with only 1 or 2 bubbles with cough Gastrointestinal (Abdomen): normal bowel sounds, soft, nontender, no hepatospl enomegaly Musculoskeletal: Extremities: extremities normal to inspection Skin: no rashes, warm and dry Lymphatic: no cervical lymphadenopathy Results & Data Results & Data ([facility]) Vital Signs (Past 12 Hours) Vital Signs Temp Pulse Pulse Resp BP Pulse Ox O2 Del Method 12/20/21 07:56 36.6 C 85 18 159/64 H 94 Room Air 12/19/21 22:17 82 12/20/21 04:06 36.9 C 79 16 123/55 L 95 Room Air 12/19/21 23:28 37.1 C 71 18 131/57 L 94 Room Air 12/19/21 22:59 Room Air Laboratory Results 12/19/21 16:09 12/19/21 16:09 Diagnostic Findings Chest x-ray this morning independently reviewed. The tube appears to be in good place. The pneumothorax appears mostly resolved with reexpansion of the previously noted atelectatic lung. PG Care Time/CCT Total # of Minutes Spent Total Time Spent with Patient: Total time spent is greater than 50% in coordination of care (as documented) at patient's floor/unit and/or counseling patient: Coding Level of Care Code 93346 Subseq Hosp Care Lvl 2 Diagnoses Pleural effusion J90 Hydropneumothorax J94.8 COVID-19 U07.1
--- NOTE | 2021-12-20 08:24 | XRay Report ---
XR chest 1V portable CLINICAL HISTORY: ptx COMPARISON STUDY: Chest CT December 18, 2021. Chest radiograph December 19, 2021. FINDINGS: Right basilar pleural pigtail catheter is in place. A right basilar pneumothorax has slight ly decreased in size since prior examination. Persistent bibasilar opacities and a small left pleural effusion are noted. Pulmonary vascular congestion is unchanged. Cardiac mediastinal silhouette is st able. IMPRESSION: 1. Right basilar pleural pigtail catheter place. Slight decrease in size of a right basilar pneumotho rax. 2. Persistent bibasilar opacities and a small left pleural effusion. ACT 112: Negative or not required by law. Electronically signed by: Emigdio Ibrahim M.D. 12/20/2021 8:23 AM
[2021-12-20] MEDS: INSULIN ASPART PER UNIT SC SCH ×4 (08:47→21:30)
[2021-12-20] MEDS: CALCIUM 600MG + VIT D 400 IU TAB PO SCH (08:48)
[2021-12-20] MEDS: LANTUS PER UNIT CHARGE SQ SCH ×2 (08:48→21:30)
[2021-12-20] MEDS: BENZONATATE 100 MG CAPSULE PO SCH ×3 (08:48→21:27)
--- NOTE | 2021-12-20 09:49 | Nephrology Progress Note ---
Date of Service December 20, 2021 Assessment & Plan (1) ESRD (end stage renal disease) on dialysis: (2) Volume overload: (3) Aortic stenosis: (4) Status post above-knee amputation of right lower extremity: Plan 81-year-old F with ESRD on HD MWF at [facility], admitted with volume overload after she presented to ER with SOB. CXR shower Rt pL effusion and pulmonary edema. On admission her weight was 70 kg and she had 3 days back to back dialysis and her dry weight brought down to 63 kg. She had dialysis yesterday and overall she is feeling well, has been lying flat without any symptom. Has and MR and there was concern that her severe is contributing to volume issue. She was evaluated by Cardiology and felt that her aortic stenosis is not critical and unlikely to have major impact on volume status with any intervention for at this time but can be evaluated again in future if there is issues with volume overload. Of course with her significant comorbidities any intervention will be associated with significant risk. Diagnosed with COVID on 12/15/21. Had thoracentesis on 12/16/2021 for large right pleural effusion, complicated by pneumothorax, currently has drainage, but clamped this am. Overall she is doing well with improvement in her volume status, has some cough but otherwise asymptomatic. no respiratory distress. Blood pressure stable. --encourage protein intake, continue boost 1 can TID -- Dose medications for GFR less than 10 --monitor CBC, electrolytes Will follow Admission and Anticipated Discharge Date Admission Date: December 11, 2021 Jason Masters has been overall feeling well, had HD yesterday, no significant SOB, had fever yesterday and now COVID positive. Direct physical exam was not done due to COVID isolation, discussed with care team. Had HD yesterday for 3 h, BP was low so had only minimum UF . Results & Data ([facility]) Vital Signs (Past 12 Hours) Vital Signs Temp Pulse Pulse Resp BP Pulse Ox O2 Del Method 12/20/21 07:56 36.6 C 85 18 159/64 H 94 Room Air 12/19/21 22:17 82 12/20/21 04:06 36.9 C 79 16 123/55 L 95 Room Air 12/19/21 23:28 37.1 C 71 18 131/57 L 94 Room Air 12/19/21 22:59 Room Air PG Care Time/CCT Total # of Minutes Spent Total Time Spent with Patient: Total time spent is greater than 50% in coordination of care (as documented) at patient's floor/unit and/or counseling patient: Coding Level of Care Code 83135 Subseq Hosp Care Lvl 2 Diagnoses ESRD (end stage renal disease) on dialysis N18.6; Z99.2 Volume overload E87.70 Aortic stenosis I35.0 Status post above-knee amputation of right lower extremity Z89.611
--- NOTE | 2021-12-20 17:53 | Hospitalist Progress Note ---
Date of Service December 20, 2021 Assessment & Plan (1) COVID-19: Plan: first day of illness - 12/15/21 (tested + then as well). remains unwell but stable. No hypoxia/No O2 requirement. no PNA on Chest CT if any worsening hypoxia -- add dexamethasone 6mg IV daily. defer for now. not a candidate for paxlovid or Remdesivir (due to ESRD). cont airborne isolation. (2) Pleural effusion: Plan: right s/p thoracentesis 12/16/[address] Boogie 1000cc of fluid obtained; transudative by Light's criteria, but borderline exudative. culture thus far negative. pathology pending. complicated by pneumothorax s/p pigtail catheter placement post-procedural cxrs noted defer catheter management to pulmonary -placed a second pigtail catheter 12/18 by PULM and old one removed 12/19 concern for possible trapped lung-appreciate PULM management cxr today improved PTX, tube clamped, may remove tomorrow if CXR improved -continue oxycodone prn moderate-severe pain (3) Hydropneumothorax: Plan: right see #2 above pigtail catheter remains in place cxr noted other possibility is that this is trapped lung defer management to pulmonary (4) Aortic stenosis: Plan: mod-severe. seen by cardiology - felt NOT contributing to #5 below. (5) Volume overload: Plan: Improved s/p 4 serial HD sessions last week with 10-15 pounds of weight removed. TSH wnl. s/p HD now per usual schedule M/W/. Formal consult by cardiology appreciated - volume overload issues not felt to be driven by valvular heart disease (moderate-severe ). Ischemia possible but felt unlikely per cardiology. Appreciate cards/nephro consults & assistance. Appreciate pulmonary consultation for right sided effusion. (6) Pulmonary edema: Plan: Improving. see above. (7) ESRD (end stage renal disease) on dialysis: Plan: Typical outpatient schedule M/W/F. s/p 4 serial treatments on 12/12, 12/13, 12/14, 12/15. s/p usual treatments now Appreciate nephrology assistance. (8) Hypertension, uncontrolled: Plan: Continue amlodipine, hydralazine, and Imdur Continue with hemodialysis for fluid management will need to ask pharmacy to schedule her BP meds AFTER HD on HD days to avoid iatrogenic hypotension (9) Type 2 diabetes mellitus with insulin therapy: Plan: Continue Lantus as well as NovoLog SSI Controlled Hemoglobin A1c is 5.5% Continue with diabetic diet (10) DVT prophylaxis: Plan: Heparin SC BID (11) CAD (coronary artery disease): Plan: I can't find any record of a previous cardiac cath. Saw Dr Hamm in 2020 - no mention of formal dx of CAD. Wall motion abnormalities are seen on echo this admission. Thus, can't rule out underlying CAD. Cardiology saw in consult this weekend - defer on w/u for CAD at this time. Cont statin. Cont asa. Should be on BB. Is already on imdur, amlodipine. (12) Dyslipidemia: Plan: Cont statin (13) History of Graves' disease: Plan: noted TSH wnl this admission (14) Unilateral AKA: Plan: right (15) Chronic systolic CHF (congestive heart failure): Plan: EF 45-50% on echo this admission. Was 60-65% in 06/2021. Cardiology consult appreciated. She will need close f/u with Dr Hamm post-d/c. Her is not felt to be causing her current volume overloaded state. (16) Ischemic cardiomyopathy: Plan: Wall motion abnormalities noted on echo this admission. Cont asa, statin, etc. Cards consult appreciated. Plan Dispo-continued stay, improving Admission and Anticipated Discharge Date Admission Date: December 11, 2021 Subjective Feeling better. Has no complaints. Was out of bed to a chair briefly today Tele with NSR, frequent pVCs, rates 70-80 Review of Systems Review of Systems: All systems reviewed & are unremarkable except as noted in HPI & below Physical Exam Physical Exam: gen -NAD but appears uncomfortable, AAOx3 mouth - MMM neck - no JVD heart - RR, irregular (ectopy), s1 s2, 2/6 systolic murmur RUSB lungs - decreased BS right base, CTA apices, no wheeze, no increased work of br eathing abd - soft NT ND BS+ ext - right AKA, left leg 2+ pulses and no edema, left arm AV fistula psych - a/o x 3 Results & Data Results & Data ([facility]) Vital Signs (Past 12 Hours) Vital Signs Temp Pulse Pulse Resp BP Pulse Ox O2 Del Method 08/11/22 16:54 36.7 C 75 18 154/63 H 96 Room Air 12/20/21 15:24 36.7 C 81 18 153/55 H 92 Room Air 12/20/21 13:52 94 12/20/21 11:57 36.6 C 79 18 127/65 95 Room Air 12/20/21 08:00 77 12/20/21 08:00 Room Air 12/20/21 07:56 36.6 C 85 18 159/64 H 94 Room Air Laboratory Results 12/20/21 12/20/21 12/20/21 Range/Units 16:53 11:59 07:52 POC Glucose 189 H 108 H 82 (70-99) mg/dl 12/19/21 Range/Units 20:13 POC Glucose 157 H (70-99) mg/dl PG Care Time/CCT Total # of Minutes Spent Total Time Spent with Patient: Total time spent is greater than 50% in coordination of care (as documented) at patient's floor/unit and/or counseling patient: Coding Level of Care Code 53895 Subseq Hosp Care Lvl 2 Diagnoses COVID-19 U07.1 Pleural effusion J90 Hydropneumothorax J94.8 Aortic stenosis I35.0 Volume overload E87.70 Pulmonary edema J81.1 ESRD (end stage renal disease) on dialysis N18.6; Z99.2 Hypertension, uncontrolled I10 Type 2 diabetes mellitus with insulin therapy E11.9; Z79.4 DVT prophylaxis Z29.9 CAD (coronary artery disease) I25.10 Dyslipidemia E78.5 History of Graves' disease Z86.39 Unilateral AKA S78.119A Chronic systolic CHF (congestive heart failure) I50.22 Ischemic cardiomyopathy I25.5
[2021-12-20] MEDS: ATORVASTATIN 40 MG TAB PO SCH (21:09)
[2021-12-21 06:20] LABS: Basophils # (auto) 0.02 K/uL (0-0.2); Basophils % (auto) 0.4 %; Eosinophils % (auto) 4.2 %; Immature Granulocytes # (auto) 0.02 K/uL (0.00-0.02); Immature Granulocytes % (auto) 0.4 %; Lymphocytes # (auto) 0.92 K/uL (1.2-3.4); Lymphocytes % (auto) 19.2 %; Mean Corpuscular Hemoglobin 24.9 pg (25.0-34.0); Mean Corpuscular Hgb Conc 29.7 g/dL (32.0-36.0); Mean Corpuscular Volume 83.7 fL (80.0-100.0); Mean Platelet Volume 10.4 fL (9.4-12.3); Monocytes # (auto) 0.84 K/uL (0.24-0.82); Monocytes % (auto) 17.5 %; Neutrophils % (auto) 58.3 %; Platelet Count 193 K/uL (130-400); RDW Coefficient of Variation 18.5 % (11.5-14.5); RDW Standard Deviation 55.3 fL (36.4-46.3); Red Blood Count 4.42 M/uL (3.93-5.22)
--- NOTE | 2021-12-21 07:27 | XRay Report ---
XR chest 1V portable HISTORY: 81 years-old Female ptx follow-up study in a patient with right-sided hydropneumothorax COMPARISON: Chest radiograph 12/20/2021 TECHNIQUE: AP view of the chest FINDINGS: Cardiomediastinal and hilar silhouettes are unchanged. Mild pulmonary vascular congestion. A right-si ded pleural catheter is in place. Stable appearance of the right basilar pneumothorax. Trace pleural effusions with persistent bibasilar consolidation. Bones appear grossly intact. IMPRESSION: 1. Right basilar pleural catheter is in place. Stable appearance of the small right basilar pneumotho rax. 2. Small left pleural effusion with persistent bibasilar opacities. ACT 112: Negative or not required by law. The above report was generated using voice recognition software. It may contain grammatical, syntax o r spelling errors. Electronically signed by: All Osullivan M.D. 12/21/2021 7:25 AM
[2021-12-21 07:30] LABS: BUN Creatinine Ratio 19.6 (10-20); Calcium 9.4 mg/dl (8.5-10.1); Creatinine Clr Calc Pharmacy 10.5 ml/min; Est GFR (African American) 11.1 ml/min; Est GFR (Non-African American) 9.6 ml/min; Potassium 4.2 mmol/L (3.5-5.1)
[2021-12-21] MEDS: SEVELAMER HCL 800 MG TABLET PO SCH ×3 (08:32→17:30)
[2021-12-21] MEDS: amLODIPine BESYLATE 5 MG TAB PO SCH (08:33)
[2021-12-21] MEDS: ASPIRIN 81 MG ECTAB PO SCH (08:34)
[2021-12-21] MEDS: ASCORBIC ACID 500 MG TAB PO SCH (08:35)
[2021-12-21] MEDS: BENZONATATE 100 MG CAPSULE PO SCH ×2 (08:35→13:43)
[2021-12-21] MEDS: CALCIUM 600MG + VIT D 400 IU TAB PO SCH (08:36)
[2021-12-21] MEDS: CHOLECALCIFEROL 1,000 UNITS 25 MCG TAB PO SCH (08:37)
[2021-12-21] MEDS: DOCUSATE SODIUM 100 MG CAP PO SCH (08:38)
[2021-12-21] MEDS: HEPARIN SOD 5,000 UNIT/0.5 ML VIAL SQ SCH (08:38)
[2021-12-21] MEDS: hydrALAZINE TAB 50 MG TAB PO SCH ×3 (08:39→13:49)
[2021-12-21] MEDS: ISOSORBIDE MONO EXTENDED REL 60 MG TABCR PO SCH (08:39)
[2021-12-21] MEDS: CEROVITE ADV FORMULA TAB PO SCH (08:40)
[2021-12-21] MEDS: MULTIVITAMIN TAB PO SCH (08:40)
[2021-12-21] MEDS: VENLAFAXINE HCL XR 150 MG CAPXR PO SCH (08:41)
[2021-12-21] MEDS: INSULIN ASPART PER UNIT SC SCH ×3 (08:49→17:00)
[2021-12-21] MEDS: LANTUS PER UNIT CHARGE SQ SCH (08:51)
--- NOTE | 2021-12-21 09:08 | Pulmonology Progress Note ---
Date of Service December 21, 2021 Assessment & Plan (1) Pleural effusion: (2) Hydropneumothorax: (3) COVID-19: Plan Impression: 81-year-old female with pleural effusion which appears to be borderline exudative. It does not appear that cell counts were sent. Cytology is negative. Gram stain negative with no growth to date. Suspect related to dialysis and diastolic heart failure. No evidence of reaccumulation. The postprocedural pneumothorax has essentially resolved. The tube has been clamped for more than 24 hours. Recommendations: 1. Pleural effusion: Hopefully the fluid will not reaccumulate. Would follow clinically at this point time with attention to volume status. 2. Pneumothorax: No significant progression with the tube being clamped for 24 hours. It was removed today. See separate procedure note. 3. COVID. Patient is on room air. No additional adjuvant therapy is necessary at this point time. Patient can be dismissed from the hospital from pulmonary perspective. Management of the patient's other medical issues per the primary admitting service. Pulmonary will sign off. Feel free to contact us with additional questions or concerns. Admission and Anticipated Discharge Date Admission Date: December 11, 2021 Subjective Patient seen and examined. EMR reviewed. Patient's chest tube is been clamped since yesterday morning. She remains asymptomatic and specifically denies any chest pain shortness of breath or cough. X-ray this morning demonstrates stability with no increase in the pneumothorax or significant reaccumulation of the pleural effusion. She denies fevers chills or night sweats. Review of Systems Review of Systems: All systems reviewed & are unremarkable except as noted in Subjective Physical Exam Constitutional: WD/WN, vitals as above Neck: trachea midline, no thyromegaly Respiratory: normal respiratory effort, lungs clear to auscultation Cardiovascular: RRR, no murmur, no edema Chest (Breasts): Additional Comments: The tube was unclamped. No significant air leak even when applied to suction Gastrointestinal (Abdomen): normal bowel sounds, soft, nontender, no hepatosplenomegaly Musculoskeletal: Extremities: extremities normal to inspection Skin: no rashes, warm and dry Lymphatic: no cervical lymphadenopathy Results & Data Results & Data ([facility]) Vital Signs (Past 12 Hours) Vital Signs Temp Pulse Pulse Resp BP Pulse Ox O2 Del Method 12/21/21 06:36 36.7 C 78 18 149/56 H 94 Room Air 12/21/21 04:06 36.8 C 73 18 158/60 H 94 Room Air 12/21/21 01:52 79 12/20/21 23:16 36.9 C 73 18 149/67 H 94 Room Air Laboratory Results 12/21/21 05:46 12/21/21 05:46 Diagnostic Findings Chest x-ray from this morning was independently reviewed. The pigtail catheter remains in the pleural space. No significant reaccumulation of the pleural effusion or pneumothorax is noted. PG Care Time/CCT Total # of Minutes Spent Total Time Spent with Patient: Total time spent is greater than 50% in coordination of care (as documented) at patient's floor/unit and/or counseling patient: Coding Level of Care Code 32782 Subseq Hosp Care Lvl 2 Diagnoses Pleural effusion J90 Hydropneumothorax J94.8 COVID-19 U07.1
--- NOTE | 2021-12-21 09:10 | Procedure Note ---
Procedure Note Date of Service December 21, 2021 Note Procedure: Removal of 12 [place] pigtail pleural catheter on the right. Indication: Resolution of pneumothorax and pleural effusion. Hi Lo Driver Dr. Bynum Anesthesia none Patient was placed in a semirecumbent position right side up. The dressing was taken down. The locking mechanism for the pigtail catheter was released. With the patient undergoing exhalation, the catheter was quickly removed. An occlusive dressing was applied over the insertion site. Catheter was observed to be intact. Tegaderm was applied over the site. Dressing can be taken down within the next 24 hours. Patient can shower if needed. No follow-up imaging required in the absence of clinical symptoms. Coding CPT Codes Pulmonary/Thoracic - Pulmonary and Thoracic: 63104 Remove lung catheter ([id number]) [facility] Procedure Codes (Charges) Pulmonary/Thoracic Procedure 1: Pulmonary and Thoracic: 05560 Remove lung catheter
--- NOTE | 2021-12-21 11:29 | Discharge Summary ---
Date of Service December 21, 2021 Admission HPI Per Admitting Provider Patient is a 81-year-old female with a past medical history of end-stage renal disease on dialysis, pulmonary hypertension, type 2 diabetes on insulin, coronary artery disease, hyperlipidemia, Graves' disease, history of right leg amputation, and hypertension who presented to the emergency room via EMS for hypoxia and shortness of breath. Patient reports to me yesterday while she was going to sleep she began feeling short of breath and had a pulse ox of around 60%. Patient turned on her air conditioner and reported feeling better so she slept the night and woke up and was still having shortness of breath. She reports that later in the day should her physical therapist had come and they had taken her oxygen saturation and found that it was in the low 80s and the physical therapist recommended going to the emergency room. Patient is ESDR and receives hemodialysis Friday. Patient reports to me that she does still produces urine albeit not that much. Otherwise denies any other symptoms such as nausea, vomiting, fever, chills, chest pain, or headache. Reports good adherence with her insulin and having good blood sugars at home. Denies any other complaints at this time. ED course: Patient arrived in the emergency department and was given 3 L of oxygen which improved her saturation to greater than 90%. Chest x-ray was taken which revealed cardiomegaly with evidence of congestive heart failure, pulmonary edema with possible superimposed pneumonitis, and layering pleural effusions. CBC revealed a hemoglobin of 10.9. PT INR within normal limits. BMP showed a creatinine of 3.09. Troponin mildly elevated at 29.6. Patient is COVID- negative. Principal Diagnosis Volume overload, pleural effusion, pneumothorax, Acute respiratory failure with hypoxia COVID-19 Discharge Exam gen -NAD but appears uncomfortable, AAOx3 mouth - MMM neck - no JVD heart - RR, irregular (ectopy), s1 s2, 2/6 systolic murmur RUSB lungs - decreased BS right base, CTA apices, no wheeze, no increased work of breathing abd - soft NT ND BS+ ext - right AKA, left leg 2+ pulses and no edema, left arm AV fistula psych - a/o x 3 Discharge Data Allergies Allergy/AdvReac Type Severity Reaction Status Date / Time codeine AdvReac Mild DOES NOT Verified 12/11/21 21:[address] IT MAKES HER FEEL. Consultations 12/11/21 21:19 ED Decision to Admit Stat 12/12/21 00:22 Consult Nephrology Routine 12/15/21 08:53 Consult Cardiology Routine 12/15/21 14:00 Consult Pulmonology Routine Ordered Studies 12/16/21 12:51 US point of care ultrasound Urgent 12/17/21 09:25 CT chest diagnostic wo con Urgent Hospital Course (1) COVID-19: first day of illness - 12/15/21 (tested + then as well). improved, afebrile, off oxygen No hypoxia/No O2 requirement. no PNA on Chest CT did not require any treatment specific for COVID not a candidate for paxlovid or Remdesivir (due to ESRD). cont isolation for 4 more days after discharge (2) Pleural effusion: right s/p thoracentesis 12/16/[address] Boogie 1000cc of fluid obtained; transudative by Light's criteria, but borderline exudative. culture thus far negative. pathology negative complicated by pneumothorax s/p pigtail catheter placement post-procedural cxrs noted -placed a second pigtail catheter 12/18 by PULM and old one removed 12/19 2nd chest tube removed on day of discharge after being clamped for over 24 hrs and no worsening of small right basilar PTX--> chest tube removed f/u with PULM after discharge concern for possible trapped lung-appreciate PULM management (3) Hydropneumothorax: right see #2 above pigtail catheters now removed cxr noted f/u PULM outpt (4) Aortic stenosis: mod-severe. seen by cardiology - felt NOT contributing to #5 below. (5) Volume overload: Improved s/p 4 serial HD sessions last week with 10-15 pounds of weight removed. TSH wnl. s/p HD now per usual schedule M/W/F. Formal consult by cardiology appreciated - volume overload issues not felt to be driven by valvular heart disease (moderate-severe ). Ischemia possible but felt unlikely per cardiology. Appreciate cards/nephro consults & assistance. Appreciate pulmonary consultation for right sided effusion. (6) Pulmonary edema: Improving. see above. (7) ESRD (end stage renal disease) on dialysis: Typical outpatient schedule M/W/F. s/p 4 serial treatments on 12/12, 12/13, 12/14, 12/15. s/p usual treatments now Appreciate nephrology assistance. (8) Hypertension, uncontrolled: Continue amlodipine, hydralazine, and Imdur Continue with hemodialysis for fluid management (9) Type 2 diabetes mellitus with insulin therapy: received Lantus as well as NovoLog SSI Controlled Hemoglobin A1c is 5.5% Continue with diabetic diet (10) DVT prophylaxis: Heparin SC BID (11) CAD (coronary artery disease): I can't find any record of a previous cardiac cath. Saw Dr Hamm in 2020 - no mention of formal dx of CAD. Wall motion abnormalities are seen on echo this admission. Thus, can't rule out underlying CAD. Cardiology saw in consult this weekend - defer on w/u for CAD at this time. Cont statin. Cont asa. Should be on BB. Is already on imdur, amlodipine. (12) Dyslipidemia: Cont statin (13) History of Graves' disease: noted TSH wnl this admission (14) Unilateral AKA: right (15) Chronic systolic CHF (congestive heart failure): EF 45-50% on echo this admission. Was 60-65% in 06/2021. Cardiology consult appreciated. She will need close f/u with Dr Hamm post-d/c. Her is not felt to be causing her current volume overloaded state. (16) Ischemic cardiomyopathy: Wall motion abnormalities noted on echo this admission. Cont asa, statin, etc. Cards consult appreciated. Plan Dispo-dc to home with home health Home Health Attestation I certify that this patient is under my care and that I, or a physicians executive assistant to president working with me, had a face to-face encounter that meets the home health [id number]-fm-[id number] encounter requirements with this patient. The encounter with the patient was in whole, or in part, for the following medical condition, which is the primary reason for home health care (list medical condition): I certify that, based on my findings, the following services are medically necessary home health services: My clinical findings support the need for the above services because: PT Eval for Safety, Gait Training, Assistive Devices Skilled Nsg Assessment Further, I certify that my clinical findings support that this patient is homebound (i.e. absences from home require considerable and taxing effort and are for medical reasons or spiritism services or infrequently or of short duration when for other reasons) because: Assistance of 1 Person for Ambulation/Activities Supportive Aid - Wheelchair Certification for Home Health Services: Based on the above findings, I certify that this patient is confined to the home and needs intermittent intermediate care, physical therapy and/or speech therapy or continues to need occupational therapy. The patient is under my care, and I have initiated the establishment of the plan of care. This patient will be followed by a physician who will periodically review the plan of care. Total Time Total Time Spent Total Time Spent (In Minutes): 35 min Discharge Plan Discharge Items Patient Disposition: Home - Home Health Services Reason For Visit: SOB Discharge Diagnosis: Acute respiratory failure with hypoxia secondary to volume overload, COVID-19, Pleural effusion, Pneumothorax Condition on Discharge: Fair Activity: Resume your previous activity Non-emergency contact: Primary Care Provider, Manager Division and Home Management Supervisor Call non-emergency contact if: you have any medication questions, your symptoms worsen and you have a fever Follow-up/Referrals: David Lopez III, CRNP [Primary Care Provider] - (Follow up in 1 week) Hernandez Boogie MD [Physician] - (Follow up within 2 weeks) Diet: Carb Consistent or DM2 and Dialysis Renal Addtl Attending Provider Instructions: Please remain in quarantine for 4 more days for your COVID-19. Follow up with the Home Management Supervisor in about 2 weeks for your fluid around the lung. Continue your usual dialysis schedule. Pending Studies at Discharge: Yes Studies:: Final pleural fluid cultures-no growth to date Stand-Alone Forms: My [facility] [place], Smoking Cessation Medications and DC Order Prescriptions: Continued polyethylene glycol 3350 17 gram/dose powder 17 gm PO DAILY PRN (Reason: Constipation) venlafaxine 150 mg capsule,extended release 24hr 150 mg PO QAM ascorbic acid (vitamin C) 500 mg tablet 500 mg PO QAM isosorbide mononitrate 120 mg tablet extended release 24 hr 120 mg PO QAM Qty: 90 3RF Label Comments: "if she wrote it down I took it" insulin aspart U-100 [Novolog Flexpen U-100 Insulin] 100 unit/mL (3 mL) insulin pen 7 unit subcut TIDM Qty: 30 3RF Label Comments: pt cant remember if she had insulin today Rx Instructions: Plus sliding scale 3-4 U at HS if > 250 (DME) pen needle, diabetic [BD Ultra-Fine [place] Pen Needle] 32 gauge x 5/32" needle See Rx Instructions .ROUTE .MEDSUPPLY Qty: 400 3RF Rx Instructions: use 4 needles daily insulin glargine [Lantus Solostar U-100 Insulin] 100 unit/mL (3 mL) insulin pen 12 unit subcut QPM Qty: 15 1RF betamethasone dipropionate 0.05 % cream 1 applic topical DIRECTED PRN (Reason: Skin Irritation) cholecalciferol (vitamin D3) 25 mcg (1,000 unit) capsule 50 mcg PO BID atorvastatin 80 mg tablet 80 mg PO HS Qty: 90 3RF Label Comments: Has been out- doesn't remember when Calcium 600 with Vitamin D3 600 mg(1,500mg) -400 unit Tablet,Chewable 2 tab PO QAM multivitamin Capsule 1 cap PO DAILY PreserVision AREDS [id number],320-226-200 pxkh-mu-ayhe Capsule 1 cap PO BID hydralazine 50 mg Tablet 100 mg PO TID Qty: 90 0RF amlodipine 5 mg tablet 5 mg PO BID Rx Instructions: TAKE 1 TABLET BY MOUTH TWICE DAILY aspirin [Adult Aspirin Regimen] 81 mg tablet,delayed release (DR/EC) 81 mg PO DAILY sevelamer HCl 800 mg Tablet 800 mg PO TID Rx Instructions: must administer with a meal/food acetaminophen [Tylenol Extra Strength] 500 mg Tablet 1,000 mg PO Q8H PRN (Reason: Pain) docusate sodium 100 mg Capsule 100 mg PO BID menthol-zinc oxide [Calmoseptine] 0.44-20.6 % ointment 1 applic TOPICAL TID PRN (Reason: NEEDED) Discharge Orders: Discharge Order (Routine); Ordered 12/21/21 Ordered By: Akila Ascencio Admission Data Admit Date/Time: 12/11/21 22:21 Attending Provider: Akila Ascencio Admit Provider: Noé Zimmer Primary Care Provider: David Lopez III Other Providers: Nimesh Demarco ; Sanjay Spangler ; Isai Argueta ; [facility] ; Sekou Davidson ; Hernandez Boogie Coding Level of Care Code D/C DAY MANAGEMENT >30 MINS Diagnoses COVID-19 U07.1 Pleural effusion J90 Hydropneumothorax J94.8 Aortic stenosis I35.0 Volume overload E87.70 Pulmonary edema J81.1 ESRD (end stage renal disease) on dialysis N18.6; Z99.2 Hypertension, uncontrolled I10 Type 2 diabetes mellitus with insulin therapy E11.9; Z79.4 DVT prophylaxis Z29.9 CAD (coronary artery disease) I25.10 Dyslipidemia E78.5 History of Graves' disease Z86.39 Unilateral AKA S78.119A Chronic systolic CHF (congestive heart failure) I50.22 Ischemic cardiomyopathy I25.5
--- NOTE | 2021-12-21 11:39 | Nephrology Progress Note ---
Date of Service December 21, 2021 Assessment & Plan (1) ESRD (end stage renal disease) on dialysis: (2) Volume overload: (3) Aortic stenosis: (4) Status post above-knee amputation of right lower extremity: Plan 81-year-old F with ESRD on HD MWF at [facility], admitted with volume overload after she presented to ER with SOB. CXR shower Rt pL effusion and pulmonary edema. On admission her weight was 70 kg and she had 3 days back to back dialysis and her dry weight brought down to 63 kg. She had dialysis yesterday and overall she is feeling well, has been lying flat without any symptom. Has and MR and there was concern that her severe is contributing to volume issue. She was evaluated by Cardiology and felt that her aortic stenosis is not critical and unlikely to have major impact on volume status with any intervention for at this time but can be evaluated again in future if there is issues with volume overload. Of course with her significant comorbidities any intervention will be associated with significant risk. Diagnosed with COVID on 12/15/21. Had thoracentesis on 12/16/2021 for large right pleural effusion, complicated by pneumothorax, drainage tube was clamped yesterday and removed this morning. Overall she is doing well with improvement in her volume status, has some cough but otherwise asymptomatic. No respiratory distress. Blood pressure stable. --encourage protein intake, continue boost 1 can TID --Dose medications for GFR less than 10 --monitor CBC, electrolytes --Dialysis this afternoon and after that she can be discharged and have next dialysis Friday at [facility] [place]. Will follow Admission and Anticipated Discharge Date Admission Date: December 11, 2021 Jason Masters was seen examined in the room this morning. Overall she feels well, denies any shortness of breath or chest pain. No cough, fever or chills. She is due for dialysis today. Blood pressure, electrolyte, volume status acceptable. Chest you was removed this morning. Review of Systems Review of Systems: Detailed review of system was otherwise unremarkable except mentioned above in HPI. Physical Exam Constitutional: WD/WN, vitals as above no acute distress Respiratory: normal respiratory effort; no respiratory distress Auscultation: + diminished lung sounds ( Right lower lobe); no crackles and no wheezes Cardiovascular: Rate/Rhythm: regular rate and regular rhythm Heart Sounds: normal S1 and normal S2 Extremities: no edema Skin: no rashes Neurologic: no focal motor deficits and not confused Psychiatric: Orientation: alert and oriented x 3 Results & Data ([facility]) Vital Signs (Past 12 Hours) Vital Signs Temp Pulse Pulse Resp BP Pulse Ox O2 Del Method 12/21/21 09:25 Room Air 12/21/21 06:36 36.7 C 78 18 149/56 H 94 Room Air 12/21/21 04:06 36.8 C 73 18 158/60 H 94 Room Air 12/21/21 01:52 79 PG Care Time/CCT Total # of Minutes Spent Total Time Spent with Patient: Total time spent is greater than 50% in coordination of care (as documented) at patient's floor/unit and/or counseling patient: Coding Level of Care Code 19099 Subseq Hosp Care Lvl 3 Diagnoses ESRD (end stage renal disease) on dialysis N18.6; Z99.2 Volume overload E87.70 Aortic stenosis I35.0 Status post above-knee amputation of right lower extremity Z89.611
== END 2021-12-21 19:20 | disposition home health service (06) | DRG 698 ==
LOC: ED 17:47 → SUATTDRO 22:21 → EDINP 22:21 → 2S 12-12 19:34
DX: J96.01 Acute respiratory failure with hypoxia; N18.6 End stage renal disease; I35.0 Nonrheumatic aortic (valve) stenosis; I25.10 Atherosclerotic heart disease of native coronary artery without angina pectoris; D63.1 Anemia in chronic kidney disease; Z86.39 Personal history of other endocrine, nutritional and metabolic disease; I11.0 Hypertensive heart disease with heart failure; E66.9 Obesity, unspecified; F32.A Depression, unspecified; Z89.611 Acquired absence of right leg above knee; Z79.4 Long term (current) use of insulin; Z88.5 Allergy status to narcotic agent; J91.8 Pleural effusion in other conditions classified elsewhere; Z80.1 Family history of malignant neoplasm of trachea, bronchus and lung; Z20.822 Contact with and (suspected) exposure to COVID-19; U07.1 COVID-19; Z79.82 Long term (current) use of aspirin; E11.22 Type 2 diabetes mellitus with diabetic chronic kidney disease; Z83.3 Family history of diabetes mellitus; Z87.891 Personal history of nicotine dependence; Z79.899 Other long term (current) drug therapy; J95.811 Postprocedural pneumothorax; I50.22 Chronic systolic (congestive) heart failure; G47.34 Idiopathic sleep related nonobstructive alveolar hypoventilation; I34.0 Nonrheumatic mitral (valve) insufficiency; E78.5 Hyperlipidemia, unspecified; Z99.2 Dependence on renal dialysis; I25.5 Ischemic cardiomyopathy

== ENCOUNTER 2022-01-13 23:56 | Inpatient (IN) ==
--- NOTE | 2022-01-14 00:35 | Emergency Department Note ---
History of Present Illness General Chief complaint: Shortness of Breath/Dyspnea Stated complaint: SHORTNESS OF BREATH History of Present Illness 81-year-old female presents emergency department reportedly has a history of end-stage renal disease and has dialysis on Friday and Friday and she states that she received dialysis on Friday. Patient has been prone to pneumonia had recent COVID was found to have a pulse ox that was in the low 70s upon EMS arrival they did place her on high flow oxygen and her oxygen level improved greatly. Patient states that she felt generally short of breath. Patient denies hemoptysis. There are no other complaints from the patient. No other mitigating or alleviating factors Home Medications Medication Instructions Recorded Confirmed Type ascorbic acid (vitamin C) 500 mg 500 mg PO QAM 12/10/18 01/14/22 History tablet venlafaxine 150 mg 150 mg PO QAM 12/10/18 01/14/22 History capsule,extended release 24 hr calcium carbonate 600 mg-vitamin 2 tab PO QAM 03/09/20 01/14/22 History D3 10 mcg (400 unit) chewable tablet (Calcium 600 with Vitamin D3) cholecalciferol (vitamin D3) 25 50 mcg PO BID 12/27/20 01/14/22 History mcg (1,000 unit) capsule vitamins A,C,[id number]-rubd-djsvqa 14,320 1 cap PO BID 06/14/21 01/14/22 History unit-226 mg-200 unit capsule (PreserVision AREDS) insulin aspart U-100 100 unit/mL 7 unit (0.07 mL) subcut TIDM #30 mL 06/22/21 01/14/22 Rx (3 mL) subcutaneous pen (Novolog Flexpen U-100 Insulin aspart) pen needle, diabetic 32 gauge x #400 ea 09/25/21 01/03/22 Rx 5/32" (BD Ultra-Fine [place] Pen Needle) betamethasone dipropionate 0.05 % 1 applic topical DIRECTED PRN 11/20/21 01/14/22 History topical cream Skin Irritation acetaminophen 500 mg tablet 1,000 mg PO Q8H PRN Pain 12/11/21 01/14/22 History (Tylenol Extra Strength) amlodipine 5 mg tablet 5 mg PO BID 12/11/21 01/14/22 History docusate sodium 100 mg capsule 100 mg PO BID 12/11/21 01/14/22 History menthol 0.44 %-zinc oxide 20.6 % 1 applic topical TID PRN NEEDED 12/11/21 01/14/22 History topical ointment (Calmoseptine) sevelamer HCl 800 mg tablet 800 mg PO TID 12/11/21 01/14/22 History atorvastatin 80 mg tablet 80 mg PO HS #90 tabs 01/03/22 01/14/22 Rx hydralazine 50 mg tablet 100 mg PO TID #90 tabs 01/03/22 01/14/22 Rx isosorbide mononitrate 120 mg 120 mg PO QAM #90 tabs 01/03/22 01/14/22 Rx tablet,extended release 24 hr aspirin 81 mg tablet,delayed 81 mg PO DAILY #30 tabs 01/04/22 01/14/22 Rx release (Adult Aspirin Regimen) insulin glargine 100 unit/mL (3 12 unit (0.12 mL) subcut QPM #15 mL 01/04/22 01/14/22 Rx mL) subcutaneous pen (Lantus Solostar U-100 Insulin) polyethylene glycol 3350 17 17 g PO DAILY PRN Constipation 01/04/22 01/14/22 Rx gram/dose oral powder #510 grams multivitamin 1 tab PO QAM 01/14/22 01/14/22 History Allergies Allergy/AdvReac Type Severity Reaction Status Date / Time codeine AdvReac Mild DOES NOT Verified 01/14/22 01:34 LIKE THE WAY IT MAKES HER FEEL. Past Med/Surg History Medical History Anemia AV fistula LEFT CAD (coronary artery disease) Carotid artery disease less than 50% ICA stenosis per 08/2016 carotid duplex CHF (congestive heart failure) Chronic gastroesophageal reflux disease Chronic kidney disease on HD Dehiscence of wound Depression Diabetic peripheral neuropathy associated with type 2 diabetes mellitus Dialysis patient 3XWK (M/W/F) [facility]>FOLLOWED BY DR. HATHAWAY Dyslipidemia Gallstones Generalized osteoarthritis of multiple sites Graves disease H/O malignant neoplasm of uterine body Hiatal hernia History of kidney stones Hydropneumothorax Hypertension Irregular heart beat metoprolol for this per pt Lab test negative for COVID-19 virus Macular degeneration Moderate calcific aortic stenosis Multinodular goiter (nontoxic) Multiple thyroid nodules Obesity Osteopenia Patella fracture Secondary hyperparathyroidism Sepsis Sleep apnea No device Type 2 diabetes mellitus with insulin therapy Surgical History H/O abdominoplasty H/O basal cell carcinoma excision H/O shoulder surgery Right History of appendectomy History of cataract surgery R/L History of colonoscopy History of esophagogastroduodenoscopy (EGD) History of hip surgery Closed intertrochanteric fracture of left femur 04/10/2021: 02/16/2021: Grade 4 view, MAC#3, ETT#7.0. No issues per anesthesia postop pro vishal note. History of open reduction and internal fixation (ORIF) procedure right patella 05/18/2021: LMA#4 atraumatic + PNB. No issues per anesthesia postop progress note. History of tonsillectomy History of tooth extraction S/P complete hysterectomy Status post knee surgery 05/31/21 Dr. Heriberto Ly- Incision and Debridement Right Knee, Right Open Reduction Internal Fixation Patella, Hardware Removal(Right) Family History Father Diabetes Lung cancer Family history of diabetes mellitus Mother , in a home fire Hypertension Family history of diabetes mellitus Daughter Family history of diabetes mellitus Son Family history of diabetes mellitus Other No family history of adverse response to anesthesia Denies family history of Ovarian cancer Prostate cancer Myocardial infarction Breast cancer Colorectal cancer Social History Smoking Status: Unknown if ever smoked Tobacco Type: Cigarettes Second Hand Exposure: No; Hx Alcohol Use: No Hx Substance Use: No Preferred Language: Turkish Communication Ability: Effective Visual Impairment: No Limitations Hearing Ability: Normal Stave Machine Tender Required: No Beliefs That Will Affect Care: None marital status: / Current Living Situation: Family Current Living Situation Comment: Son and Daughter in law. current occupational status: retired Feels Safe at Home: Yes Safety Concerns Comment: unsteady at times Childhood Exposure to Second-Hand Smoke: Yes Dental Care, Regularly: No Physical Activity Frequency: Does not Exercise Seatbelt Use: always Sunscreen Use: No Assistive Devices: Walker and Wheelchair Review of Systems A total of 10 systems reviewed and were otherwise negative Constitutional: no fever Respiratory: + dyspnea Cardiovascular: no chest pain Musculoskeletal: no back pain Physical Exam Vital Signs Vital Signs - 24 hr 01/14/22 00:21 01/14/22 00:53 01/14/22 00:54 Pulse Rate [Carotid] Respiratory Rate Respiratory Effort / Characteristics Respiratory Depth Respiratory Pattern Blood Pressure [Right Arm] Blood Pressure Mean [Right Arm] Pulse Oximetry 98 Oxygen Delivery Method Nasal Cannula Nasal Cannula Nasal Cannula Oxygen Flow Rate 2 2 2 Sepsis Recent Fever Within 48 Hours No Sepsis New/Unexplained Change in Mental Status No Sepsis Action Taken by Nursing No Action Required 01/14/22 00:55 Pulse Rate [Carotid] 97 H Respiratory Rate 20 Respiratory Effort / Characteristics Non-Labored Spontaneous Respiratory Depth Normal Respiratory Pattern Regular Blood Pressure [Right Arm] 153/72 H Blood Pressure Mean [Right Arm] 99 Pulse Oximetry 100 Oxygen Delivery Method Nasal Cannula Oxygen Flow Rate 2 Sepsis Recent Fever Within 48 Hours Sepsis New/Unexplained Change in Mental Status Sepsis Action Taken by Nursing GENERAL: Patient is awake alert in no acute distress patient is resting comfortably EYES: The conjunctivae are clear. The pupils are round and reactive. EARS, NOSE, MOUTH AND THROAT: The nose is without any evidence of any deformity. Mucous membranes are moist. Tongue is midline. NECK: The neck is nontender and supple. RESPIRATORY: Normal respiratory effort is noted; rhonchi is present CARDIOVASCULAR: Regular rate and rhythm noted there no murmurs rubs or gallops normal S1 normal S2. GASTROINTESTINAL: The abdomen is soft. Abdomen is nontender. BACK: No midline tenderness or or step-off noted range of motion in flexion extension as well as rotation no signs of muscle spasm noted MUSCULOSKELETAL/EXTREMITIES: There is no evidence of gross deformity full range of motion is noted in the hips and shoulders. Patient has a right AKA; left upper extremity AV graft is present SKIN: There is no obvious evidence of any rash. There are no petechiae, pallor or cyanosis noted. NEUROLOGIC: Patient is awake alert and oriented x3 strength is symmetric PSYCH: Not anxious Course Reevaluation(s) Reevaluation #1: Patient was started on oxygen which improved her pulse oximeter to 98%; started on empiric antibiotics for a right lung infiltrate. Patient is COVID-positive. Patient has renal failure she did receive dialysis on Friday. Patient has a slight increase in her troponin. This case was discussed with the hospitalist for admission Time: :34 Consultations Consultation #1: Spoke with the [facility] hospitalist for admission Time: 03:34 Critical Care Time Critical Care Time: Yes Total Critical Care Time: 35 I have personally spent greater than 35 minutes of critical care time in the direct management of this patient. This includes bedside care, interpretation of diagnostic studies, and testing, discussion with consultants, patient, and family members, and other required patient management activities. These minutes are in excess of all separately billable procedures. Medical Decision Making Medical Records Attestation: I reviewed the patient's medical records. Home Medications Current Medication List: was personally reviewed by me Laboratory Data Attestation: I reviewed the patient's lab results. Result diagrams: 01/14/22 02:00 01/14/22 02:00 Lab Results 01/14/22 01/14/22 01/14/22 Range/Units 00:50 02:00 02:00 WBC 13.45 H (4.8-10.8) K/ul RBC 3.34 L (3.93-5.22) M/uL Hgb 8.3 L (12.0-16.0) g/dl Hct 29.0 L (34.1-44.9) % MCV 86.8 (80.0-100.0) fL MCH 24.9 L (25.0-34.0) pg MCHC 28.6 L (32.0-36.0) g/dL RDW Std Deviation 61.1 H (36.4-46.3) fL RDW Coeff of Chris 19.9 H (11.5-14.5) % Plt Count 355 (130-400) K/uL MPV 9.0 L (9.4-12.3) fL Immature Gran % (Auto) 1.7 % Neut % (Auto) 79.9 % Lymph % (Auto) 7.8 % Luna % (Auto) 8.0 % Eos % (Auto) 2.2 % Baso % (Auto) 0.4 % Neut # (Auto) 10.75 H (1.4-6.5) K/uL Lymph # (Auto) 1.05 L (1.2-3.4) K/uL Luna # (Auto) 1.07 H (0.24-0.82) K/uL Eos # (Auto) 0.30 (0-0.50) K/uL Baso # (Auto) 0.05 (0-0.2) K/uL Immature Gran # (Auto) 0.23 H (0.00-0.02) K/uL Hypochromasia Present Anisocytosis Present PT (9.0-12.0) Seconds INR (0.9-1.1) APTT (21.0-31.0) Seconds PTT Ratio Sodium (136-145) mmol/L Potassium (3.5-5.1) mmol/L Chloride (98-107) mmol/L Carbon Dioxide (21-32) mmol/L Anion Gap (3-11) BUN (6-23) mg/dl Creatinine (0.6-1.2) mg/dl Est Cr Clr Drug Dosing ml/min Est GFR ( Amer) ml/min Est GFR (Non-Af Amer) ml/min BUN/Creatinine Ratio (10-20) Glucose (70-99(Fasting)) mg/dl Calcium (8.5-10.1) mg/dl Magnesium (1.7-2.4) mg/dl Total Bilirubin (0.2-1.0) mg/dl AST (13-39) U/L ALT (7-52) U/L Alkaline Phosphatase (34-104) U/L Troponin I High Sens (0-14) pg/ml B-Natriuretic Peptide 1824 H (0-100) pg/ml Total Protein (6.0-8.3) gm/dl Albumin (3.4-5.0) gm/dl Globulin (2.5-4.0) gm/dl Albumin/Globulin Ratio (0.9-2) SARS-CoV-2, RNA, NAAT POSITIVE A* (NEGATIVE) 01/14/22 01/14/22 Range/Units 02:00 02:00 WBC (4.8-10.8) K/ul RBC (3.93-5.22) M/uL Hgb (12.0-16.0) g/dl Hct (34.1-44.9) % MCV (80.0-100.0) fL MCH (25.0-34.0) pg MCHC (32.0-36.0) g/dL RDW Std Deviation (36.4-46.3) fL RDW Coeff of Chris (11.5-14.5) % Plt Count (130-400) K/uL MPV (9.4-12.3) fL Immature Gran % (Auto) % Neut % (Auto) % Lymph % (Auto) % Luna % (Auto) % Eos % (Auto) % Baso % (Auto) % Neut # (Auto) (1.4-6.5) K/uL Lymph # (Auto) (1.2-3.4) K/uL Luna # (Auto) (0.24-0.82) K/uL Eos # (Auto) (0-0.50) K/uL Baso # (Auto) (0-0.2) K/uL Immature Gran # (Auto) (0.00-0.02) K/uL Hypochromasia Anisocytosis PT 11.3 (9.0-12.0) Seconds INR 1.1 (0.9-1.1) APTT 22.4 (21.0-31.0) Seconds PTT Ratio 0.8 Sodium 134 L (136-145) mmol/L Potassium 4.6 (3.5-5.1) mmol/L Chloride 98 (98-107) mmol/L Carbon Dioxide 28 (21-32) mmol/L Anion Gap 8 (3-11) BUN 41 H (6-23) mg/dl Creatinine 3.44 H (0.6-1.2) mg/dl Est Cr Clr Drug Dosing 12.4 ml/min Est GFR ( Amer) 13.9 ml/min Est GFR (Non-Af Amer) 12.0 ml/min BUN/Creatinine Ratio 11.9 (10-20) Glucose 112 H (70-99(Fasting)) mg/dl Calcium 10.1 (8.5-10.1) mg/dl Magnesium 2.2 (1.7-2.4) mg/dl Total Bilirubin 0.4 (0.2-1.0) mg/dl AST 31 (13-39) U/L ALT 21 (7-52) U/L Alkaline Phosphatase 105 H (34-104) U/L Troponin I High Sens 60.1 H* D (0-14) pg/ml B-Natriuretic Peptide (0-100) pg/ml Total Protein 6.3 (6.0-8.3) gm/dl Albumin 2.7 L (3.4-5.0) gm/dl Globulin 3.6 (2.5-4.0) gm/dl Albumin/Globulin Ratio 0.8 L (0.9-2) SARS-CoV-2, RNA, NAAT (NEGATIVE) Imaging Data Attestation: I personally reviewed and interpreted this imaging study as follows: My Impression: Chest x-ray interpreted by me increased pulmonary markings in the right lung pulmonary infiltrate, pneumonia, pleural effusion ECG Data Attestation: I personally reviewed and interpreted this ECG as follows: Additional Comments: EKG interpreted by me normal sinus rhythm at rate of 99 normal intervals normal axis no obvious ST segment elevation or depression MDM Narrative Medical decision making differential diagnosis CHF, pulmonary edema, pneumonia, upper respiratory tract infection, COVID. Plan is to check dyspnea work-up Patient was evaluated for shortness of breath she improved with oxygen, she has infiltrate in the right lower lobe and pulmonary edema; elevated troponin but a nonischemic EKG she has an elevated creatinine. I suspect the troponin may be due to renal but we will trend. Patient is improved after oxygen. This case was discussed with the hospitalist who understands the patient is here for dyspnea and hypoxia Impression & Plan Hypoxia, Acute dyspnea, Pneumonia, COVID, Elevated troponin, Renal failure Discharge Plan Visit Data Chief Complaint: Shortness of Breath/Dyspnea Stated Complaint: SHORTNESS OF BREATH ED Provider: Rehan Terrazas Discharge Problem: Hypoxia, Acute dyspnea, Pneumonia, COVID, Elevated troponin, Renal failure Patient Disposition: Being Evaluated by Hospitalist Forms Stand Alone Forms: My [facility] [employer] Prescriptions Prescriptions: No Action venlafaxine 150 mg capsule,extended release 24hr 150 mg PO QAM ascorbic acid (vitamin C) 500 mg tablet 500 mg PO QAM insulin aspart U-100 [Novolog Flexpen U-100 Insulin] 100 unit/mL (3 mL) insulin pen 7 unit subcut TIDM Qty: 30 3RF Label Comments: pt cant remember if she had insulin today Rx Instructions: Plus sliding scale 3-4 U at HS if > 250 (DME) pen needle, diabetic [BD Ultra-Fine [place] Pen Needle] 32 gauge x 5/32" needle See Rx Instructions .ROUTE .MEDSUPPLY Qty: 400 3RF Rx Instructions: use 4 needles daily aspirin [Adult Aspirin Regimen] 81 mg tablet,delayed release (DR/EC) 81 mg PO DAILY Qty: 30 11RF insulin glargine [Lantus Solostar U-100 Insulin] 100 unit/mL (3 mL) insulin pen 12 unit subcut QPM Qty: 15 1RF polyethylene glycol 3350 17 gram/dose powder 17 g PO DAILY PRN (Reason: Constipation) Qty: 510 11RF hydralazine 50 mg tablet 100 mg PO TID Qty: 90 0RF isosorbide mononitrate 120 mg tablet extended release 24 hr 120 mg PO QAM Qty: 90 3RF Label Comments: "if she wrote it down I took it" atorvastatin 80 mg tablet 80 mg PO HS Qty: 90 3RF Label Comments: Has been out- doesn't remember when betamethasone dipropionate 0.05 % cream 1 applic topical DIRECTED PRN (Reason: Skin Irritation) cholecalciferol (vitamin D3) 25 mcg (1,000 unit) capsule 50 mcg PO BID Calcium 600 with Vitamin D3 600 mg(1,500mg) -400 unit Tablet,Chewable 2 tab PO QAM PreserVision AREDS 14,320-226-200 [id number] Capsule 1 cap PO BID amlodipine 5 mg tablet 5 mg PO BID Rx Instructions: TAKE 1 TABLET BY MOUTH TWICE DAILY sevelamer HCl 800 mg Tablet 800 mg PO TID Rx Instructions: must administer with a meal/food acetaminophen [Tylenol Extra Strength] 500 mg Tablet 1,000 mg PO Q8H PRN (Reason: Pain) docusate sodium 100 mg Capsule 100 mg PO BID menthol-zinc oxide [Calmoseptine] 0.44-20.6 % ointment 1 applic TOPICAL TID PRN (Reason: NEEDED) multivitamin Tablet 1 tab PO QAM Referrals Referrals: David Lopez III, CRNP [Primary Care Provider] -
[2022-01-14] MEDS ORDERED: PIPERACILLIN/TAZOBACTAM 4.5 GM/120 ML BAG IV ONE ×2 (01:18→06:45)
[2022-01-14 02:41] LABS: INR 1.1 (0.9-1.1); Partial Thromboplastin Ratio 0.8; Partial Thromboplastin Time 22.4 Seconds (21.0-31.0); Prothrombin Time 11.3 Seconds (9.0-12.0)
[2022-01-14 02:46] LABS: Albumin Globulin Ratio 0.8 (0.9-2); Albumin Level 2.7 gm/dl (3.4-5.0); BUN Creatinine Ratio 11.9 (10-20); Bilirubin,Total 0.4 mg/dl (0.2-1.0); Calcium 10.1 mg/dl (8.5-10.1); Creatinine Clr Calc Pharmacy 12.4 ml/min; Est GFR (African American) 13.9 ml/min; Globulin 3.6 gm/dl (2.5-4.0); Magnesium 2.2 mg/dl (1.7-2.4); Potassium 4.6 mmol/L (3.5-5.1); Total Protein 6.3 gm/dl (6.0-8.3)
[2022-01-14 02:55] LABS: Anisocytosis Present; Basophils # (auto) 0.05 K/uL (0-0.2); Basophils % (auto) 0.4 %; Eosinophils % (auto) 2.2 %; Hemoglobin 8.3 g/dl (12.0-16.0); Hypochromasia Present; Immature Granulocytes # (auto) 0.23 K/uL (0.00-0.02); Immature Granulocytes % (auto) 1.7 %; Lymphocytes # (auto) 1.05 K/uL (1.2-3.4); Lymphocytes % (auto) 7.8 %; Mean Corpuscular Hemoglobin 24.9 pg (25.0-34.0); Mean Corpuscular Hgb Conc 28.6 g/dL (32.0-36.0); Mean Corpuscular Volume 86.8 fL (80.0-100.0); Monocytes # (auto) 1.07 K/uL (0.24-0.82); Neutrophils # (auto) 10.75 K/uL (1.4-6.5); Neutrophils % (auto) 79.9 %; Platelet Count 355 K/uL (130-400); RDW Coefficient of Variation 19.9 % (11.5-14.5); RDW Standard Deviation 61.1 fL (36.4-46.3); Red Blood Count 3.34 M/uL (3.93-5.22); White Blood Count 13.45 K/ul (4.8-10.8)
[2022-01-14 03:09] LABS: Troponin I High Sensitivity 60.1 pg/ml (0-14)
--- NOTE | 2022-01-14 04:03 | History & Physical Report ---
Date of Service January 14, 2022 Assessment & Plan (1) COVID-19: Plan: COVID-19 infection/bacterial pneumonia pleural effusion on right Give dexamethasone 4 mg IV now and every morning and modified dosing, do not worsen her blood sugar too much (2) Pleural effusion associated with pulmonary infection: Plan: Recurrent pleural effusion with pulmonary infection/pneumonia- Linezolid and Zosyn IV Albuterol HFA and ipratropium bromide HFA DuoNebs every 2 hours as needed Nasal cannula oxygen, titrate to goal 95% Patient is status post thoracentesis with 1000 cc removed at last admission, and had pneumothorax secondary to pigtail catheter placement (3) Pneumonia: Plan: See above (4) Anemia: Plan: Symptomatic anemia- Hemoglobin 8.3 on admission, with range 10.1-11.6 Denies any blood loss for reason May be secondary to physiologic stress of illness No indication for transfusion at this time, but will watch serially Hold off on anticoagulation for DVT prophylaxis for now (5) Elevated troponin: Plan: Elevated troponin/ischemic cardiomyopathy/CAD- Troponin 60.1 The patient will be admitted to telemetry for serial cardiac enzymes, serial EKG's, cardiac rhythm monitoring Likely type II supply demand mismatch Continue hydralazine, isosorbide mononitrate, aspirin and amlodipine (6) Ischemic cardiomyopathy: Plan: See above (7) ESRD (end stage renal disease) on dialysis: Plan: Usually gets dialysis on Friday, Friday and Friday. Tomorrow, Friday, is a holiday, and may not be able to get HD, but she does not look like she actually will need dialysis tomorrow Consult nephrology Continue sevelamer (8) Depression: Plan: Continue venlafaxine (9) Type 2 diabetes mellitus with insulin therapy: Plan: Continue insulin glargine 12 units subcu in the evening Place on Accu-Cheks before meals and at bedtime with NovoLog coverage per scale Check hemoglobin A1c (10) CAD (coronary artery disease): Plan: See above (11) Dyslipidemia: Plan: Continue atorvastatin 80 mg at bedtime History of Present Illness Chief Complaint: The patient presents to the emergency department with complaint shortness of breath, dyspnea on exertion, and a pulse ox in the low 70s when assessed by EMS this evening, who then placed her on high flow oxygen and with improvement in oxygenation, brought her to the ED for assessment Primary Care Provider: David Lopez III, ELLIOTT The patient is a 81-year-old female with a past medical history including p neumonia, pleural effusion, hydropneumothorax, aortic stenosis, ischemic cardiomyopathy, chronic systolic CHF, right AKA, Graves' disease, ESRD on HD, nonproliferative diabetic retinopathy, diabetic nephropathy, diabetic hypoglycemia, cardiomyopathy, pulmonary hypertension, CAD, moderate calcific aortic stenosis, dyslipidemia, hypertension and anemia. Patient was most recently admitted to the hospital from 12/11-12/21/2021, and gotten completely back to baseline health. She does go to dialysis Friday, Friday, Friday, and did have her routine dialysis 2 days ago on Friday. Assessment in the emergency department include the following abnormal results: Troponin 60.1, BNP 1824, albumin 2.7, hemoglobin 8.3, hematocrit 29.0, WBC 13.45. Patient was COVID-19 positive Chest x-ray showed extensive infiltrate right middle and right lower lobes Allergies Allergy/AdvReac Type Severity Reaction Status Date / Time codeine AdvReac Mild DOES NOT Verified 01/14/22 01:[address] IT MAKES HER FEEL. Home Medications Medication Instructions Recorded Confirmed Type ascorbic acid (vitamin C) 500 mg 500 mg PO QAM 12/10/18 01/14/22 History tablet venlafaxine 150 mg 150 mg PO QAM 12/10/18 01/14/22 History capsule,extended release 24 hr calcium carbonate 600 mg-vitamin 2 tab PO QAM 03/09/20 01/14/22 History D3 10 mcg (400 unit) chewable tablet (Calcium 600 with Vitamin D3) cholecalciferol (vitamin D3) 25 50 mcg PO BID 12/27/20 01/14/22 History mcg (1,000 unit) capsule vitamins A,C,Z-xvqy-uznjst 14,320 1 cap PO BID 06/14/21 01/14/22 History unit-226 mg-200 unit capsule (PreserVision AREDS) insulin aspart U-100 100 unit/mL 7 unit (0.07 mL) subcut TIDM #30 mL 06/22/21 01/14/22 Rx (3 mL) subcutaneous pen (Novolog Flexpen U-100 Insulin aspart) pen needle, diabetic 32 gauge x #400 ea 09/25/21 01/03/22 Rx 5/32" (BD Ultra-Fine [place] Pen Needle) betamethasone dipropionate 0.05 % 1 applic topical DIRECTED PRN 11/20/21 01/14/22 History topical cream Skin Irritation acetaminophen 500 mg tablet 1,000 mg PO Q8H PRN Pain 12/11/21 01/14/22 History (Tylenol Extra Strength) amlodipine 5 mg tablet 5 mg PO BID 12/11/21 01/14/22 History docusate sodium 100 mg capsule 100 mg PO BID 12/11/21 01/14/22 History menthol 0.44 %-zinc oxide 20.6 % 1 applic topical TID PRN NEEDED 12/11/21 01/14/22 History topical ointment (Calmoseptine) sevelamer HCl 800 mg tablet 800 mg PO TID 12/11/21 01/14/22 History atorvastatin 80 mg tablet 80 mg PO HS #90 tabs 01/03/22 01/14/22 Rx hydralazine 50 mg tablet 100 mg PO TID #90 tabs 01/03/22 01/14/22 Rx isosorbide mononitrate 120 mg 120 mg PO QAM #90 tabs 01/03/22 01/14/22 Rx tablet,extended release 24 hr aspirin 81 mg tablet,delayed 81 mg PO DAILY #30 tabs 01/04/22 01/14/22 Rx release (Adult Aspirin Regimen) insulin glargine 100 unit/mL (3 12 unit (0.12 mL) subcut QPM #15 mL 01/04/22 01/14/22 Rx mL) subcutaneous pen (Lantus Solostar U-100 Insulin) polyethylene glycol 3350 17 17 g PO DAILY PRN Constipation 01/04/22 01/14/22 Rx gram/dose oral powder #510 grams multivitamin 1 tab PO QAM 01/14/22 01/14/22 History Past Med/Surg History Medical History Anemia AV fistula LEFT CAD (coronary artery disease) Carotid artery disease less than 50% ICA stenosis per 08/2016 carotid duplex CHF (congestive heart failure) Chronic gastroesophageal reflux disease Chronic kidney disease on HD Dehiscence of wound Depression Diabetic peripheral neuropathy associated with type 2 diabetes mellitus Dialysis patient 3XWK (M/W/F) [facility] Dyslipidemia Gallstones Generalized osteoarthritis of multiple sites Graves disease H/O malignant neoplasm of uterine body Hiatal hernia History of kidney stones Hydropneumothorax Hypertension Irregular heart beat metoprolol for this per pt Lab test negative for COVID-19 virus Macular degeneration Moderate calcific aortic stenosis Multinodular goiter (nontoxic) Multiple thyroid nodules Obesity Osteopenia Patella fracture Secondary hyperparathyroidism Sepsis Sleep apnea No device Type 2 diabetes mellitus with insulin therapy Surgical History H/O abdominoplasty H/O basal cell carcinoma excision H/O shoulder surgery Right History of appendectomy History of cataract surgery R/L History of colonoscopy History of esophagogastroduodenoscopy (EGD) History of hip surgery Closed intertrochanteric fracture of left femur 04/10/2021: 02/16/2021: Grade 4 view, MAC#3, ETT#7.0. No issues per anesthesia postop progress note. History of open reduction and internal fixation (ORIF) procedure right patella 05/18/2021: LMA#4 atraumatic + PNB. No issues per anesthesia postop progress note. History of tonsillectomy History of tooth extraction S/P complete hysterectomy Status post knee surgery 05/31/21 Dr. Heriberto Ly- Incision and Debridement Right Knee, Right Open Reduction Internal Fixation Patella, Hardware Removal(Right) Family History Father Diabetes Lung cancer Family history of diabetes mellitus Mother , in a home fire Hypertension Family history of diabetes mellitus Daughter Family history of diabetes mellitus Son Family history of diabetes mellitus Other No family history of adverse response to anesthesia Denies family history of Ovarian cancer Prostate cancer Myocardial infarction Breast cancer Colorectal cancer Social History Smoking Status: Unknown if ever smoked Tobacco Type: Cigarettes Second Hand Exposure: No; Hx Alcohol Use: No Hx Substance Use: No Preferred Language: Bulgarian Communication Ability: Effective Visual Impairment: No Limitations Hearing Ability: Normal Aircraft Magneto Mechanic Required: No Beliefs That Will Affect Care: None marital status: / Current Living Situation: Family Current Living Situation Comment: Son and Daughter in law. current occupational status: retired Feels Safe at Home: Yes Safety Concerns Comment: unsteady at times Childhood Exposure to Second-Hand Smoke: Yes Dental Care, Regularly: No Physical Activity Frequency: Does not Exercise Seatbelt Use: always Sunscreen Use: No Assistive Devices: Walker and Wheelchair Review of Systems Review of Systems: The patient denies sore throat, fevers, chills, sweats, weight change, fatigue, nausea, vomiting, diarrhea , constipation, abdominal pain, pelvic pain, blood in urine or stool, dysuria, urinary frequency or urgency, lightheadedness, dizziness, headache, memory loss, loss of consciousness, rash, abnormal bruising or bleeding, focal weakness, numbness or tingling in arms or leg, generalized arthralgias or myalgias, back or neck pain, or night sweats. The review of systems is otherwise negative other than for that already noted above, and at least 10 systems have been reviewed. Physical Exam Physical Exam: The patient is awake, alert and oriented 3, well developed and well nourished, normocephalic and atraumatic, lying in bed and in no acute distress. HEENT--PERRL, EOMI, mucous membranes and oropharynx normal Neck--supple. No JVD. No bruits. Thyroid normal, trachea midline, no adenopathy . Heart--normal S1 and S2. No murmurs, rubs or gallops. Lungs--coarse breath sounds on right. No respiratory distress, no accessory muscle use. Abdomen--normal bowel sounds and soft. Nontender. Nondistended, no hernias or masses, no organomegaly. Extremities-- Right AKA Dermatologic--normal skin turgor, normal color, no abnormal lymph nodes, no rash. Neurologic--cranial nerves II through XII grossly intact. Rheumatologic--limited exam Psychiatric--normal affect. Results & Data Results & Data ([facility]) Vital Signs (Past 12 Hours) Vital Signs Pulse Resp BP Pulse Ox O2 Del Method O2 Flow Rate 01/14/22 00:55 97 H 20 153/72 H 100 Nasal Cannula 2 01/14/22 00:54 Nasal Cannula 2 01/14/22 00:53 Nasal Cannula 2 01/14/22 00:21 98 Nasal Cannula 2 Laboratory Results Laboratory Results WBC 13.45 K/ul (4.8-10.8) H 01/14/22 02:00 RBC 3.34 M/uL (3.93-5.22) L 01/14/22 02:00 Hgb 8.3 g/dl (12.0-16.0) L 01/14/22 02:00 Hct 29.0 % (34.1-44.9) L 01/14/22 02:00 MCV 86.8 fL (80.0-100.0) 01/14/22 02:00 MCH 24.9 pg (25.0-34.0) L 01/14/22 02:00 MCHC 28.6 g/dL (32.0-36.0) L 01/14/22 02:00 RDW Std Deviation 61.1 fL (36.4-46.3) H 01/14/22 02:00 RDW Coeff of Chris 19.9 % (11.5-14.5) H 01/14/22 02:00 Plt Count 355 K/uL (130-400) 01/14/22 02:00 MPV 9.0 fL (9.4-12.3) L 01/14/22 02:00 Immature Gran % (Auto) 1.7 % 01/14/22 02:00 Neut % (Auto) 79.9 % 01/14/22 02:00 Lymph % (Auto) 7.8 % 01/14/22 02:00 [place] % (Auto) 8.0 % 01/14/22 02:00 Eos % (Auto) 2.2 % 01/14/22 02:00 Baso % (Auto) 0.4 % 01/14/22 02:00 Neut # (Auto) 10.75 K/uL (1.4-6.5) H 01/14/22 02:00 Lymph # (Auto) 1.05 K/uL (1.2-3.4) L 01/14/22 02:00 [place] # (Auto) 1.07 K/uL (0.24-0.82) H 01/14/22 02:00 Eos # (Auto) 0.30 K/uL (0-0.50) 01/14/22 02:00 Baso # (Auto) 0.05 K/uL (0-0.2) 01/14/22 02:00 Immature Gran # (Auto) 0.23 K/uL (0.00-0.02) H 01/14/22 02:00 Hypochromasia Present 01/14/22 02:00 Anisocytosis Present 01/14/22 02:00 PT 11.3 Seconds (9.0-12.0) 01/14/22 02:00 INR 1.1 (0.9-1.1) 01/14/22 02:00 APTT 22.4 Seconds (21.0-31.0) 01/14/22 02:00 PTT Ratio 0.8 01/14/22 02:00 Sodium 134 mmol/L (136-145) L 01/14/22 02:00 Potassium 4.6 mmol/L (3.5-5.1) 01/14/22 02:00 Chloride 98 mmol/L (98-107) 01/14/22 02:00 Carbon Dioxide 28 mmol/L (21-32) 01/14/22 02:00 Anion Gap 8 (3-11) 01/14/22 02:00 BUN 41 mg/dl (6-23) H 01/14/22 02:00 Creatinine 3.44 mg/dl (0.6-1.2) H 01/14/22 02:00 Est Cr Clr Drug Dosing 12.4 ml/min 01/14/22 02:00 Est GFR ( Amer) 13.9 ml/min 01/14/22 02:00 Est GFR (Non-Af Amer) 12.0 ml/min 01/14/22 02:00 BUN/Creatinine Ratio 11.9 (10-20) 01/14/22 02:00 Glucose 112 mg/dl (70-99(Fasting)) H 01/14/22 02:00 Calcium 10.1 mg/dl (8.5-10.1) 01/14/22 02:00 Magnesium 2.2 mg/dl (1.7-2.4) 01/14/22 02:00 Total Bilirubin 0.4 mg/dl (0.2-1.0) 01/14/22 02:00 AST 31 U/L (13-39) 01/14/22 02:00 ALT 21 U/L (7-52) 01/14/22 02:00 Alkaline Phosphatase 105 U/L (34-104) H 01/14/22 02:00 Troponin I High Sens 60.1 pg/ml (0-14) H* D 01/14/22 02:00 B-Natriuretic Peptide 1824 pg/ml (0-100) H 01/14/22 02:00 Total Protein 6.3 gm/dl (6.0-8.3) 01/14/22 02:00 Albumin 2.7 gm/dl (3.4-5.0) L 01/14/22 02:00 Globulin 3.6 gm/dl (2.5-4.0) 01/14/22 02:00 Albumin/Globulin Ratio 0.8 (0.9-2) L 01/14/22 02:00 SARS-CoV-2, RNA, NAAT POSITIVE (NEGATIVE) A* 01/14/22 00:50 Code Status & VTE Plan Code Status Full code VTE Prophylaxis Plan VTE Prophylaxis will be ordered: Yes PG Care Time/CCT Total # of Minutes Spent Total Time Spent with Patient: Total time spent is greater than 50% in coordination of care (as documented) at patient's floor/unit and/or counseling patient: Coding Level of Care Code 85166 Initial Inpt Care Lvl 3 Diagnoses COVID-19 U07.1 Pleural effusion associated with pulmonary infection J18.9; J91.8 Pneumonia J18.9 Anemia N18.6; D63.1; Z99.2 Anemia type: due to chronic kidney disease Chronic kidney disease stage: on chronic dialysis Elevated troponin R77.8 Ischemic cardiomyopathy I25.5 ESRD (end stage renal disease) on dialysis N18.6; Z99.2 Depression F32.9 Type 2 diabetes mellitus with insulin therapy E11.9; Z79.4 CAD (coronary artery disease) I25.10 Dyslipidemia E78.5 (1) Anemia Anemia type: due to chronic kidney disease Chronic kidney disease stage: on chronic dialysis Qualified Code(s): N18.6 - End stage renal disease; D63.1 - Anemia in chronic kidney disease; Z99.2 - Dependence on renal dialysis
[2022-01-14] MEDS ORDERED: NITROGLYCERIN SL 0.4 MG/TAB TAB SL PRN (05:40)
[2022-01-14] MEDS ORDERED: GLUCAGON FOR INJ 1 MG VIAL SQ PRN (05:40)
[2022-01-14] MEDS ORDERED: CARBOHYDRATES FOR HYPOGLYCEMIA PO PRN (05:40)
[2022-01-14] MEDS ORDERED: ONDANSETRON INJ 2 MG/ML 2 ML VIAL IV PRN (05:40)
[2022-01-14] MEDS ORDERED: GLUCOSE 10 TAB/TUBE PO PRN (05:40)
[2022-01-14] MEDS ORDERED: ALBUT/IPRATROP 3MG/0.5MG NEB 3 ML VIAL NEB PRN (05:40)
[2022-01-14] MEDS ORDERED: POLYETHYLENE (MIRALAX) 17 GM PACK PO PRN (05:40)
[2022-01-14] MEDS ORDERED: GLUCOSE 40% GEL 15 GM TUBE PO PRN (05:40)
[2022-01-14] MEDS ORDERED: DEXTROSE 50% 50 ML SYRINGE IV PRN (05:40)
[2022-01-14] MEDS ORDERED: PNEUMOCOCCAL POLYSACCHARIDES 25 MCG/0.5 ML VIAL/SYR IM ONE (06:26)
[2022-01-14] MEDS ORDERED: BETAMETHASONE DIP AUG (DIPROLENE) 0.05% CR 15 GM TUBE EXT PRN (06:44)
--- NOTE | 2022-01-14 06:46 | XRay Report ---
XR chest 1V portable CLINICAL HISTORY: Dyspnea. COMPARISON STUDY: Chest CT December 18, 2021. Chest radiograph December 21, 2021. FINDINGS: Right basilar pleural catheter has been removed since chest radiograph of December 21, 2021. There is a possible residual right basilar pneumothorax. No right apical component is noted. Extensiv e right mid and lower lung airspace opacity has progressed. Left basilar opacity has progressed as deleon s interstitial thickening. Cardiomediastinal silhouette is stable. IMPRESSION: 1. Extensive bilateral air space opacities, greater on the right. The findings favor pneumonia althou gh alveolar pulmonary edema could appear similar. Radiographic follow-up is recommended. 2. Interstitial pulmonary edema, slightly increased since prior exam. 3. Suspected small right basilar pneumothorax. ACT 112: Negative or not required by law. Electronically signed by: Emigdio Ibrahim M.D. 01/14/2022 6:44 AM
[2022-01-14] MEDS: LINEZOLID 600 MG/300 ML BAG IV SCH ×2 (06:56→18:28)
[2022-01-14] MEDS: IPRATROPIUM BROMIDE HFA INHALER INH SCH ×2 (07:36→11:23)
[2022-01-14] MEDS: ALBUTEROL HFA 8 GM INHALER INH SCH ×2 (07:36→11:23)
--- NOTE | 2022-01-14 07:36 | Electrocardiogram Report ---
Test Reason : Blood Pressure : / mmHG Vent. Rate : 099 BPM Atrial Rate : 099 BPM P-R Int : 156 ms QRS Dur : 102 ms QT Int : 360 ms P-R-T Axes : 092 014 078 degrees QTc Int : 462 ms Normal sinus rhythm Normal ECG When compared with ECG of 11-DEC-2021 18:17, No significant change was found Confirmed by Aamir Travis ([id number] on 01/14/2022 7:35:59 AM Referred By: David Lopez Confirmed By:Juan Travis
[2022-01-14] MEDS: INSULIN ASPART PER UNIT SC SCH ×4 (08:12→20:26)
[2022-01-14] MEDS: ASPIRIN 81 MG ECTAB PO SCH (08:24)
[2022-01-14] MEDS: CHOLECALCIFEROL 1,000 UNITS 25 MCG TAB PO SCH ×2 (08:24→20:36)
[2022-01-14] MEDS: MULTIVITAMIN TAB PO SCH (08:24)
[2022-01-14] MEDS: DOCUSATE SODIUM 100 MG CAP PO SCH ×3 (08:24→20:35)
[2022-01-14] MEDS: ISOSORBIDE MONO EXTENDED REL 60 MG TABCR PO SCH (08:25)
[2022-01-14] MEDS: hydrALAZINE TAB 50 MG TAB PO SCH ×3 (08:25→20:35)
[2022-01-14] MEDS: CALCIUM 600MG + VIT D 400 IU TAB PO SCH (08:25)
[2022-01-14] MEDS: amLODIPine BESYLATE 5 MG TAB PO SCH ×2 (08:26→20:35)
[2022-01-14] MEDS: ASCORBIC ACID 500 MG TAB PO SCH (08:26)
[2022-01-14] MEDS: CEROVITE ADV FORMULA TAB PO SCH (08:29)
[2022-01-14] MEDS: SEVELAMER HCL 800 MG TABLET PO SCH ×3 (08:32→16:03)
[2022-01-14] MEDS ORDERED: VENLAFAXINE HCL XR 150 MG CAPXR PO SCH (09:00)
[2022-01-14] MEDS ORDERED: IPRATROPIUM BROMIDE/ALBUTEROL respimat INH INH SCH (09:00)
[2022-01-14] MEDS: dexAMETHasone 4 MG in SYRINGE 0 ML IV SCH (09:47)
[2022-01-14] MEDS ORDERED: ALBUTEROL HFA 8 GM INHALER INH PRN (11:37)
[2022-01-14] MEDS ORDERED: IPRATROPIUM BROMIDE HFA INHALER INH PRN (11:38)
--- NOTE | 2022-01-14 12:06 | Nephrology Consultation ---
Date of Consultation January 14, 2022 Assessment & Plan (1) ESRD (end stage renal disease) on dialysis: (2) Anemia: (3) COVID-19: (4) Aortic stenosis: (5) Ischemic cardiomyopathy: (6) Pneumonia: Plan ESRD on HD MWF. BP and volume status are currently acceptable. Electrolytes are controlled. Limited ability to provide dialysis due to holiday schedule. Will require isolation for treatment due to COVID. HD will be scheduled for tomorrow AM. Minerva is agreeable. Outpatient Rx: MWF 3.5 hrs, 180 optiflux, 400/800, 2K. EDW 63 kg. L forearm AVF has been functioning well. Clearances have been at goal. Preliminary orders for treatment tomorrow entered into the EHR. Medications are currently appropriately dosed for kidney dysfunction. Dexamethasone provided for COVID; Linezolid and Zosyn for pneumonia. Consider follow up chest CT or CXR. Thankfully, hypoxia improving with treatment and minimal symptoms at this time. Anemia is chronic and stable. Maintained on Micera as outpatient. Received 150 mcg on January 07 for Hgb 8.8. Iron profile will be updated with AM labs. Renal diet and 1 L daily fluid restriction. Sevelamer QAC for hyperphosphatemia. Hold amlodipine in the AM prior to HD. History of Present Illness Reason for Consultation: ESRD on HD Requesting Physician: Miguel Angel Kennedy MD Attending Physician: Miguel Angel Kennedy MD History of Present Illness Sonam Bolivar (Lucy) is a 81 year-old female with DM, CAD, aortic stenosis, hypertension, Grave's disease with hypothyroidism, obesity, and ESRD. ESRD attributed to DKD. Minerva is maintained on hemodialysis MWF at [facility] under my care. She has been tolerating HD well. Outpatient Rx is MWF 3.5 hours, 180 optiflux, Qb 400 via L forearm AVF. EDW 63 kg. She completed her last treatment on Friday (01/11) without complications. Net UF 1.1 L. Minerva felt well leaving dialysis. Unfortunately, she was referred to [facility] yesterday after home care nursing found her to be hypoxic. Minerva noted that she had developed some progressive [place] throughout the day. She denies any chest pain. She denies any fevers or chills. She reports some stable 1-2 pillow orthopnea. She tested positive for COVID. Minerva had tested positive earlier this month as well. CXR reveals extensive BL airspace opacities (R>>L) with right pleural effusion and possible residual basilar pneumothorax on the right. Dexamethasone provided for COVID. Antibiotic therapy with Zosyn and linezolid provided for HCAP. Symptomatic improvement noted overnight. Minerva was resting comfortably on 2 L NC at the time of my assessment today. Minerva was admitted to [facility] earlier this month with hypoxia attributed to volume overload and a right pleural effusion. She tested positive for COVID during the admission. Right pleural effusion was transudative by Light's criteria. Culture and cytology were both negative. She had a pneumothorax following thoracentesis. Pigtail catheter removed prior to discharge. Minerva has had a notable decline in health and functional status over the past year and multiple recent hospitalizations. She suffered several debilitating injuries from falls. ORIF of a IC femoral fracture performed in February. She presented in May for ORIF of a patella fracture. During surgery a seroma was drained. There was concern for infection ultimately leading to revision ORIF with plate and screw placement. Further complications included wound dehiscence and disruption of the patellar tendon. She was then admitted in June with wound infection and necrosis requiring removal of hardware. Ultimately, in July, she required a right AKA. Minerva has a well functioning L RC AVF which was placed by Dr. Gregg in October 2020. She has chronic anemia for which she is maintained on Micera and has required PRBC transfusion support as recently as February. Micera 150 mcg provided on January 07 as an outpatient. Hgb 8.8 on January 09. Allergies Allergy/AdvReac Type Severity Reaction Status Date / Time codeine AdvReac Mild DOES NOT Verified 01/14/22 01:[address] IT MAKES HER FEEL. Home Medications Medication Instructions Recorded Confirmed Type ascorbic acid (vitamin C) 500 mg 500 mg PO QAM 12/10/18 01/14/22 History tablet venlafaxine 150 mg 150 mg PO QAM 12/10/18 01/14/22 History capsule,extended release 24 hr calcium carbonate 600 mg-vitamin 2 tab PO QAM 03/09/20 01/14/22 History D3 10 mcg (400 unit) chewable tablet (Calcium 600 with Vitamin D3) cholecalciferol (vitamin D3) 25 50 mcg PO BID 12/27/20 01/14/22 History mcg (1,000 unit) capsule vitamins A,C,I-tniq-zdlzow 14,320 1 cap PO BID 06/14/21 01/14/22 History unit-226 mg-200 unit capsule (PreserVision AREDS) insulin aspart U-100 100 unit/mL 7 unit (0.07 mL) subcut TIDM #30 mL 06/22/21 01/14/22 Rx (3 mL) subcutaneous pen (Novolog Flexpen U-100 Insulin aspart) pen needle, diabetic 32 gauge x #400 ea 09/25/21 01/03/22 Rx " (BD Ultra-Fine [place] Pen Needle) betamethasone dipropionate 0.05 % 1 applic topical DIRECTED PRN 11/20/21 01/14/22 History topical cream Skin Irritation acetaminophen 500 mg tablet 1,000 mg PO Q8H PRN Pain 12/11/21 01/14/22 History (Tylenol Extra Strength) amlodipine 5 mg tablet 5 mg PO BID 12/11/21 01/14/22 History docusate sodium 100 mg capsule 100 mg PO BID 12/11/21 01/14/22 History menthol 0.44 %-zinc oxide 20.6 % 1 applic topical TID PRN NEEDED 12/11/21 01/14/22 History topical ointment (Calmoseptine) sevelamer HCl 800 mg tablet 800 mg PO TID 12/11/21 01/14/22 History atorvastatin 80 mg tablet 80 mg PO HS #90 tabs 01/03/22 01/14/22 Rx hydralazine 50 mg tablet 100 mg PO TID #90 tabs 01/03/22 01/14/22 Rx isosorbide mononitrate 120 mg 120 mg PO QAM #90 tabs 01/03/22 01/14/22 Rx tablet,extended release 24 hr aspirin 81 mg tablet,delayed 81 mg PO DAILY #30 tabs 01/04/22 01/14/22 Rx release (Adult Aspirin Regimen) insulin glargine 100 unit/mL (3 12 unit (0.12 mL) subcut QPM #15 mL 01/04/22 01/14/22 Rx mL) subcutaneous pen (Lantus Solostar U-100 Insulin) polyethylene glycol 3350 17 17 g PO DAILY PRN Constipation 01/04/22 01/14/22 Rx gram/dose oral powder #510 grams multivitamin 1 tab PO QAM 01/14/22 01/14/22 History Patient History Medical History Anemia AV fistula LEFT CAD (coronary artery disease) Carotid artery disease less than 50% ICA stenosis per 08/2016 carotid duplex CHF (congestive heart failure) Chronic gastroesophageal reflux disease Chronic kidney disease on HD Dehiscence of wound Depression Diabetic peripheral neuropathy associated with type 2 diabetes mellitus Dialysis patient 3XWK (M/W/F) [facility] [place]>FOLLOWED BY DR. HATHAWAY Dyslipidemia Gallstones Generalized osteoarthritis of multiple sites Graves disease H/O malignant neoplasm of uterine body Hiatal hernia History of kidney stones Hydropneumothorax Hypertension Irregular heart beat metoprolol for this per pt Lab test negative for COVID-19 virus Macular degeneration Moderate calcific aortic stenosis Multinodular goiter (nontoxic) Multiple thyroid nodules Obesity Osteopenia Patella fracture Secondary hyperparathyroidism Sepsis Sleep apnea No device Type 2 diabetes mellitus with insulin therapy Surgical History H/O abdominoplasty H/O basal cell carcinoma excision H/O shoulder surgery Right History of appendectomy History of cataract surgery R/L History of colonoscopy History of esophagogastroduodenoscopy (EGD) History of hip surgery Closed intertrochanteric fracture of left femur 04/10/2021: 02/16/2021: Grade 4 view, MAC#3, ETT#7.0. No issues per anesthesia postop progress note. History of open reduction and internal fixation (ORIF) procedure right patella 05/18/2021: LMA#4 atraumatic + PNB. No issues per anesthesia postop progress note. History of tonsillectomy History of tooth extraction S/P complete hysterectomy Status post knee surgery 05/31/21 Dr. Heriberto Ly- Incision and Debridement Right Knee, Right Open Reduction Internal Fixation Patella, Hardware Removal(Right) Family History Father Diabetes Lung cancer Family history of diabetes mellitus Mother , in a home fire Hypertension Family history of diabetes mellitus Daughter Family history of diabetes mellitus Son Family history of diabetes mellitus Other No family history of adverse response to anesthesia Denies family history of Ovarian cancer Prostate cancer Myocardial infarction Breast cancer Colorectal cancer Social History Smoking Status: Former smoker Tobacco Type: Cigarettes Second Hand Exposure: No; Hx Alcohol Use: Yes Alcohol type: hard liquor Hx Substance Use: No Preferred Language: Arabic Communication Ability: Effective Visual Impairment: No Limitations Hearing Ability: Normal Cdl B Driver Required: No Beliefs That Will Affect Care: None marital status: / Current Living Situation: Family Current Living Situation Comment: Son and Daughter in law. current occupational status: retired Feels Safe at Home: Yes Safety Concerns Comment: unsteady at times Childhood Exposure to Second-Hand Smoke: Yes Dental Care, Regularly: No Physical Activity Frequency: Does not Exercise Seatbelt Use: always Sunscreen Use: No Assistive Devices: Denture - Upper, Denture - Lower, Glasses and Wheelchair Review of Systems Review of Systems: All systems reviewed & are unremarkable except as noted in HPI & below Constitutional: + weakness Musculoskeletal: + joint pain and + stiffness Physical Exam Constitutional: well developed and + frail appearing; no acute distress Eyes: + anicteric sclerae; no corneal abnormality ENMT: Mouth: no oral mucosal abnormality and oral mucous membranes not dry Neck: normal visual inspection and trachea midline Respiratory: normal respiratory effort Auscultation: lungs clear to auscultation bilaterally and + rhonchi (R>>L) Cardiovascular: Rate/Rhythm: regular rate Heart Sounds: normal S1, normal S2 and + murmur Extremities: + AV fistula; no edema Musculoskeletal: Extremities: + lower leg abnormality Right (AKA); no cyanosis and no clubbing Skin: normal turgor; no lesions Neurologic: Motor/Sensory: no tremor and no asterixis Psychiatric: Orientation: alert and oriented x 3 Results & Data ([facility]) Vital Signs (Past 12 Hours) Vital Signs Temp Pulse Pulse Pulse Resp BP Pulse Ox 01/14/22 11:59 36.7 C 89 18 133/64 96 01/14/22 11:25 89 16 97 01/14/22 08:00 01/14/22 06:07 94 H 01/14/22 07:36 93 H 16 97 01/14/22 05:20 96 01/14/22 06:31 01/14/22 05:44 01/14/22 05:44 36.7 C 97 H 18 155/66 H 97 01/14/22 05:40 36.7 C 97 H 18 155/66 H 92 01/14/22 04:27 99 H 20 98 01/14/22 00:55 97 H 20 153/72 H 100 01/14/22 00:54 01/14/22 00:53 01/14/22 00:21 98 Pulse Ox O2 Del Method O2 Del Method O2 Flow Rate O2 Flow Rate 01/14/22 11:59 Nasal Cannula 2 01/14/22 11:25 Nasal Cannula 2 01/14/22 08:00 Nasal Cannula 2 01/14/22 06:07 01/14/22 07:36 Nasal Cannula 2 01/14/22 05:20 Nasal Cannula 2 01/14/22 06:31 92 Nasal Cannula 2 01/14/22 05:44 Nasal Cannula 2 01/14/22 05:44 Nasal Cannula 2 01/14/22 05:40 Nasal Cannula 2 01/14/22 04:27 Nasal Cannula 2 01/14/22 00:55 Nasal Cannula 2 01/14/22 00:54 Nasal Cannula 2 01/14/22 00:53 Nasal Cannula 2 01/14/22 00:21 Nasal Cannula 2 Laboratory Results Laboratory Results - last 24 hr 01/14/22 01/14/22 01/14/22 00:50 02:00 02:00 WBC 13.45 H RBC 3.34 L Hgb 8.3 L Hct 29.0 L MCV 86.8 MCH 24.9 L MCHC 28.6 L RDW Std Deviation 61.1 H RDW Coeff of Chris 19.9 H Plt Count 355 MPV 9.0 L Immature Gran % (Auto) 1.7 Neut % (Auto) 79.9 Lymph % (Auto) 7.8 Ellis % (Auto) 8.0 Eos % (Auto) 2.2 Baso % (Auto) 0.4 Neut # (Auto) 10.75 H Lymph # (Auto) 1.05 L Ellis # (Auto) 1.07 H Eos # (Auto) 0.30 Baso # (Auto) 0.05 Immature Gran # (Auto) 0.23 H Hypochromasia Present Anisocytosis Present PT INR APTT PTT Ratio Sodium Potassium Chloride Carbon Dioxide Anion Gap BUN Creatinine Est Cr Clr Drug Dosing Est GFR ( Amer) Est GFR (Non-Af Amer) BUN/Creatinine Ratio Glucose POC Glucose Calcium Magnesium Total Bilirubin AST ALT Alkaline Phosphatase Troponin I High Sens B-Natriuretic Peptide 1824 H Total Protein Albumin Globulin Albumin/Globulin Ratio Procalcitonin SARS-CoV-2, RNA, NAAT POSITIVE A* Blood Type Antibody Screen 01/14/22 01/14/22 01/14/22 02:00 02:00 06:03 WBC RBC Hgb Hct MCV MCH MCHC RDW Std Deviation RDW Coeff of Chris Plt Count MPV Immature Gran % (Auto) Neut % (Auto) Lymph % (Auto) Ellis % (Auto) Eos % (Auto) Baso % (Auto) Neut # (Auto) Lymph # (Auto) Ellis # (Auto) Eos # (Auto) Baso # (Auto) Immature Gran # (Auto) Hypochromasia Anisocytosis PT 11.3 INR 1.1 APTT 22.4 PTT Ratio 0.8 Sodium 134 L Potassium 4.6 Chloride 98 Carbon Dioxide 28 Anion Gap 8 BUN 41 H Creatinine 3.44 H Est Cr Clr Drug Dosing 12.4 Est GFR ( Amer) 13.9 Est GFR (Non-Af Amer) 12.0 BUN/Creatinine Ratio 11.9 Glucose 112 H POC Glucose Calcium 10.1 Magnesium 2.2 Total Bilirubin 0.4 AST 31 ALT 21 Alkaline Phosphatase 105 H Troponin I High Sens 60.1 H* D B-Natriuretic Peptide Total Protein 6.3 Albumin 2.7 L Globulin 3.6 Albumin/Globulin Ratio 0.8 L Procalcitonin SARS-CoV-2, RNA, NAAT Blood Type O Positive Antibody Screen NEGATIVE 01/14/22 01/14/22 01/14/22 06:03 06:06 07:38 WBC RBC Hgb Hct MCV MCH MCHC RDW Std Deviation RDW Coeff of Chris Plt Count MPV Immature Gran % (Auto) Neut % (Auto) Lymph % (Auto) Ellis % (Auto) Eos % (Auto) Baso % (Auto) Neut # (Auto) Lymph # (Auto) Ellis # (Auto) Eos # (Auto) Baso # (Auto) Immature Gran # (Auto) Hypochromasia Anisocytosis PT INR APTT PTT Ratio Sodium Potassium Chloride Carbon Dioxide Anion Gap BUN Creatinine Est Cr Clr Drug Dosing Est GFR ( Amer) Est GFR (Non-Af Amer) BUN/Creatinine Ratio Glucose POC Glucose 198 H Calcium Magnesium Total Bilirubin AST ALT Alkaline Phosphatase Troponin I High Sens 64.3 H* B-Natriuretic Peptide Total Protein Albumin Globulin Albumin/Globulin Ratio Procalcitonin 0.91 H SARS-CoV-2, RNA, NAAT Blood Type Antibody Screen 01/14/22 01/14/22 01/14/22 11:46 11:46 11:59 WBC RBC Hgb Pending Hct Pending MCV MCH MCHC RDW Std Deviation RDW Coeff of Chris Plt Count MPV Immature Gran % (Auto) Neut % (Auto) Lymph % (Auto) Ellis % (Auto) Eos % (Auto) Baso % (Auto) Neut # (Auto) Lymph # (Auto) Ellis # (Auto) Eos # (Auto) Baso # (Auto) Immature Gran # (Auto) Hypochromasia Anisocytosis PT INR APTT PTT Ratio Sodium Potassium Chloride Carbon Dioxide Anion Gap BUN Creatinine Est Cr Clr Drug Dosing Est GFR ( Amer) Est GFR (Non-Af Amer) BUN/Creatinine Ratio Glucose POC Glucose 218 H Calcium Magnesium Total Bilirubin AST ALT Alkaline Phosphatase Troponin I High Sens Pending B-Natriuretic Peptide Total Protein Albumin Globulin Albumin/Globulin Ratio Procalcitonin SARS-CoV-2, RNA, NAAT Blood Type Antibody Screen Diagnostic Findings XR chest 1V portable CLINICAL HISTORY: Dyspnea. COMPARISON STUDY: Chest CT December 18, 2021. Chest radiograph December 21, 2021. FINDINGS: Right basilar pleural catheter has been removed since chest radiograph of December 21, 2021. There is a possible residual right basilar pneumothorax. No right apical component is noted. Extensive right mid and lower lung airspace opacity has progressed. Left basilar opacity has progressed as has interstitial thickening. Cardiomediastinal silhouette is stable. IMPRESSION: 1. Extensive bilateral air space opacities, greater on the right. The findings favor pneumonia although alveolar pulmonary edema could appear similar. Radiographic follow-up is recommended. 2. Interstitial pulmonary edema, slightly increased since prior exam. 3. Suspected small right basilar pneumothorax. PG Care Time/CCT Total # of Minutes Spent Total Time Spent with Patient: Total time spent is greater than 50% in coordination of care (as documented) at patient's floor/unit and/or counseling patient: Coding Level of Care Code 28131 Inpt Consult Level 4 Diagnoses ESRD (end stage renal disease) on dialysis N18.6; Z99.2 Anemia N18.6; D63.1; Z99.2 Anemia type: due to chronic kidney disease Chronic kidney disease stage: on chronic dialysis COVID-19 U07.1 Aortic stenosis I35.0 Ischemic cardiomyopathy I25.5 Pneumonia J18.9 (1) Anemia Anemia type: due to chronic kidney disease Chronic kidney disease stage: on chronic dialysis Qualified Code(s): N18.6 - End stage renal disease; D63.1 - Anemia in chronic kidney disease; Z99.2 - Dependence on renal dialysis
[2022-01-14 12:07] LABS: Hematocrit (blood only) 29.6 % (34.1-44.9); Hemoglobin 8.4 g/dl (12.0-16.0)
[2022-01-14] MEDS: PIPERACILLIN/TAZOBACTAM 3.375 GM in DEXTROSE 5% 100 ML IV SCH (15:56)
[2022-01-14 18:35] LABS: Hematocrit (blood only) 29.2 % (34.1-44.9); Hemoglobin 8.3 g/dl (12.0-16.0)
[2022-01-14] MEDS: LANTUS PER UNIT CHARGE SQ SCH (20:28)
[2022-01-14] MEDS: ATORVASTATIN 40 MG TAB PO SCH (20:35)
--- NOTE | 2022-01-14 22:00 | Communication Note ---
Date of Service: January 14, 2022 Patient was seen and examined but admitted the same day therefore I will not be billing for this encounter. Significant improvement since admission. Down to 2LPM O2. Procalcitonin mildly elevated but CXR concerning for bacterial pneumonia. Agree with current antibiotics.
[2022-01-15 01:07] LABS: Hematocrit (blood only) 29.5 % (34.1-44.9); Hemoglobin 8.5 g/dl (12.0-16.0)
[2022-01-15] MEDS: PIPERACILLIN/TAZOBACTAM 3.375 GM in DEXTROSE 5% 100 ML IV SCH ×2 (02:48→15:39)
[2022-01-15 06:11] LABS: Basophils # (auto) 0.04 K/uL (0-0.2); Basophils % (auto) 0.3 %; Eosinophils # (auto) 0.15 K/uL (0-0.50); Eosinophils % (auto) 1.3 %; Hematocrit (blood only) 28.3 % (34.1-44.9); Hemoglobin 8.2 g/dl (12.0-16.0); Immature Granulocytes # (auto) 0.24 K/uL (0.00-0.02); Immature Granulocytes % (auto) 2.1 %; Lymphocytes # (auto) 0.91 K/uL (1.2-3.4); Lymphocytes % (auto) 7.8 %; Mean Corpuscular Hemoglobin 24.9 pg (25.0-34.0); Mean Platelet Volume 8.7 fL (9.4-12.3); Monocytes # (auto) 0.85 K/uL (0.24-0.82); Monocytes % (auto) 7.3 %; Neutrophils # (auto) 9.48 K/uL (1.4-6.5); Neutrophils % (auto) 81.2 %; Platelet Count 328 K/uL (130-400); RDW Coefficient of Variation 19.9 % (11.5-14.5); RDW Standard Deviation 60.7 fL (36.4-46.3); Red Blood Count 3.29 M/uL (3.93-5.22); White Blood Count 11.67 K/ul (4.8-10.8)
[2022-01-15 06:26] LABS: Estimated Average Glucose 128 mg/dl; Hemoglobin A1C 6.1 % (4.5-5.6)
[2022-01-15 06:27] LABS: INR 1.1 (0.9-1.1); Partial Thromboplastin Ratio 1.3; Partial Thromboplastin Time 34.8 Seconds (21.0-31.0); Prothrombin Time 11.3 Seconds (9.0-12.0)
[2022-01-15 06:39] LABS: Albumin Globulin Ratio 0.8 (0.9-2); Albumin Level 2.7 gm/dl (3.4-5.0); BUN Creatinine Ratio 14.6 (10-20); Bilirubin,Total 0.3 mg/dl (0.2-1.0); Calcium 10.5 mg/dl (8.5-10.1); Creatinine Clr Calc Pharmacy 10.6 ml/min; Est GFR (African American) 11.5 ml/min; Est GFR (Non-African American) 9.9 ml/min; Globulin 3.5 gm/dl (2.5-4.0); Magnesium 2.3 mg/dl (1.7-2.4); Potassium 4.7 mmol/L (3.5-5.1); Total Protein 6.2 gm/dl (6.0-8.3)
[2022-01-15] MEDS ORDERED: EPOETIN ALFA 10,000 UNITS/ML VIAL IV ONE (08:00)
[2022-01-15] MEDS: INSULIN ASPART PER UNIT SC SCH ×4 (08:02→20:46)
[2022-01-15] MEDS: CALCIUM 600MG + VIT D 400 IU TAB PO SCH (08:10)
[2022-01-15] MEDS: DOCUSATE SODIUM 100 MG CAP PO SCH ×2 (08:11→20:15)
[2022-01-15] MEDS: CHOLECALCIFEROL 1,000 UNITS 25 MCG TAB PO SCH ×2 (08:11→20:13)
[2022-01-15] MEDS: ASCORBIC ACID 500 MG TAB PO SCH (08:11)
[2022-01-15] MEDS: SEVELAMER HCL 800 MG TABLET PO SCH ×3 (08:11→17:16)
[2022-01-15] MEDS: ISOSORBIDE MONO EXTENDED REL 60 MG TABCR PO SCH (08:11)
[2022-01-15] MEDS: ASPIRIN 81 MG ECTAB PO SCH (08:11)
[2022-01-15] MEDS: dexAMETHasone 4 MG in SYRINGE 0 ML IV SCH (08:12)
--- NOTE | 2022-01-15 10:04 | Nephrology Progress Note ---
Date of Service January 15, 2022 Assessment & Plan (1) ESRD (end stage renal disease) on dialysis: (2) Anemia: (3) COVID-19: (4) Aortic stenosis: (5) Ischemic cardiomyopathy: (6) Pneumonia: Plan ESRD on HD MWF. admitted with volume overload and hypoxia, chest x-ray is concerning for pneumonia, currently on linezolid. Clinically otherwise stable no significant shortness of breath. L forearm AVF has been functioning well. Clearances have been at goal. Recently estimated dry weight has been 63 kg and currently she is 67 kg. -- Continue dialysis with UF challenge to reach estimated dry weight as tolerated. overall clinically does not seem to be volume overloaded and she has been getting dialysis regularly. If continues to have hypoxia or develops neuro is pretty distress, may need to consider chest CT scan for further evaluation. -- left arm nephrology precaution, dose medications for a GFR less than 10. -- Epogen 4000 units twice a week -- continue on renal diet and 1 L fluid restriction -- continue Sevelamer as phosphate binder Will follow Admission and Anticipated Discharge Date Admission Date: January 14, 2022 Jason Palma was seen and examined during that dialysis this morning. She has been tolerating dialysis and so far tolerating UF challenges, blood pressure and heart rate staying stable. No dizziness or lightheadedness. Denies significant shortness of breath overnight. Appetite has been decent. Review of Systems Review of Systems: Detailed review of system was done and otherwise unremarkable except mentioned above. Physical Exam Constitutional: WD/WN, vitals as above no acute distress Eyes: + anicteric sclerae ENMT: Ears: no hearing impairment Neck: normal visual inspection Respiratory: normal respiratory effort; no respiratory distress Auscultation: + diminished lung sounds Cardiovascular: RRR, no murmur, no edema Skin: no rashes Neurologic: no focal motor deficits Psychiatric: Orientation: alert and oriented x 3 Results & Data ([facility]) Vital Signs (Past 12 Hours) Vital Signs Temp Pulse Pulse Pulse Resp BP BP 01/15/22 09:30 75 114/57 L 01/15/22 09:00 77 125/64 01/15/22 08:40 36.6 C 81 01/15/22 07:45 36.3 C L 80 20 156/64 H 01/15/22 07:00 77 01/15/22 02:49 36.4 C L 82 18 166/63 H 01/14/22 23:16 76 01/14/22 23:12 36.4 C L 81 18 143/71 H Pulse Ox O2 Del Method O2 Flow Rate 01/15/22 09:30 01/15/22 09:00 01/15/22 08:40 01/15/22 07:45 98 Nasal Cannula 1 01/15/22 07:00 01/15/22 02:49 98 Nasal Cannula 1 01/14/22 23:16 01/14/22 23:12 99 Nasal Cannula 2 PG Care Time/CCT Total # of Minutes Spent Total Time Spent with Patient: Total time spent is greater than 50% in coordination of care (as documented) at patient's floor/unit and/or counseling patient: Coding Level of Care Code 76996 Subseq Hosp Care Lvl 3 Diagnoses ESRD (end stage renal disease) on dialysis N18.6; Z99.2 Anemia N18.6; D63.1; Z99.2 Anemia type: due to chronic kidney disease Chronic kidney disease stage: on chronic dialysis COVID-19 U07.1 Aortic stenosis I35.0 Ischemic cardiomyopathy I25.5 Pneumonia J18.9 (1) Anemia Anemia type: due to chronic kidney disease Chronic kidney disease stage: on chronic dialysis Qualified Code(s): N18.6 - End stage renal disease; D63.1 - Anemia in chronic kidney disease; Z99.2 - Dependence on renal dialysis
--- NOTE | 2022-01-15 11:39 | Electrocardiogram Report ---
Test Reason : Blood Pressure : / mmHG Vent. Rate : 076 BPM Atrial Rate : 076 BPM P-R Int : 168 ms QRS Dur : 114 ms QT Int : 402 ms P-R-T Axes : 063 015 082 degrees QTc Int : 452 ms Normal sinus rhythm Normal ECG When compared with ECG of 14-JAN-2022 00:32, No significant change was found Confirmed by Aamir Travis ([id number]) on 01/15/2022 11:38:58 AM Referred By: David Lopez Confirmed By:Juan Travis
[2022-01-15] MEDS ORDERED: Nursing to Pharmacy Communication SCH (12:30)
[2022-01-15] MEDS: CEROVITE ADV FORMULA TAB PO SCH (12:38)
[2022-01-15] MEDS: hydrALAZINE TAB 50 MG TAB PO SCH ×3 (12:39→20:13)
[2022-01-15] MEDS: amLODIPine BESYLATE 5 MG TAB PO SCH ×2 (12:39→20:14)
[2022-01-15] MEDS: MULTIVITAMIN TAB PO SCH (12:40)
[2022-01-15] MEDS: LINEZOLID 600 MG/300 ML BAG IV SCH ×2 (12:40→18:29)
[2022-01-15 14:48] LABS: Hematocrit (blood only) 28.9 % (34.1-44.9); Hemoglobin 8.1 g/dl (12.0-16.0)
[2022-01-15] MEDS: ATORVASTATIN 40 MG TAB PO SCH (20:13)
[2022-01-15] MEDS: LANTUS PER UNIT CHARGE SQ SCH (21:03)
[2022-01-16] MEDS: PIPERACILLIN/TAZOBACTAM 3.375 GM in DEXTROSE 5% 100 ML IV SCH ×2 (04:05→14:53)
[2022-01-16] MEDS: LINEZOLID 600 MG/300 ML BAG IV SCH ×2 (06:10→19:17)
--- NOTE | 2022-01-16 07:14 | Hospitalist Progress Note ---
Date of Service January 15, 2022 Assessment & Plan (1) Pneumonia: Plan: Continue linezolid and Zosyn IV Given prior hospitalization and COVID-19 infection recommend continuing on IV antibiotics for healthcare acquired pneumonia. (2) COVID-19: Plan: COVID-19 infection/bacterial pneumonia pleural effusion on right Previously positive on December 15, 2021 Discussed with infection control and no need for isolation (3) Pleural effusion associated with pulmonary infection: Plan: Recurrent pleural effusion with pulmonary infection/pneumonia- Linezolid and Zosyn IV Albuterol HFA and ipratropium bromide HFA DuoNebs every 2 hours as needed Nasal cannula oxygen, titrate to goal 95% No current effusion that needs dranining. (4) Anemia: Plan: Symptomatic anemia- Hemoglobin 8.3 on admission, with range 10.1-11.6. Appears stable on serial measurements Denies any blood loss for reason May be secondary to physiologic stress of illness No indication for transfusion at this time, but will watch serially Hold off on anticoagulation for DVT prophylaxis for now (5) Elevated troponin: Plan: Elevated troponin/ischemic cardiomyopathy/CAD- Troponin 60.1 The patient will be admitted to telemetry for serial cardiac enzymes, serial EKG's, cardiac rhythm monitoring Suspected type II supply demand mismatch Continue hydralazine, isosorbide mononitrate, aspirin and amlodipine (6) Ischemic cardiomyopathy: Plan: See above (7) ESRD (end stage renal disease) on dialysis: Plan: Usually gets dialysis on Friday, Friday and Friday. Consult nephrology - appreciate dialysis management Continue sevelamer (8) Depression: Plan: Continue venlafaxine (9) Type 2 diabetes mellitus with insulin therapy: Plan: Continue insulin glargine 12 units subcu in the evening Place on Accu-Cheks before meals and at bedtime with NovoLog coverage per scale (10) CAD (coronary artery disease): Plan: See above (11) Dyslipidemia: Plan: Continue atorvastatin 80 mg at bedtime Admission and Anticipated Discharge Date Admission Date: January 14, 2022 Subjective Patient reports improvement in her shortness of breath. Still requiring 1LPM O2 and does not require any at home. No chest pain, abdominal pain, nausea, vomiting, appetite suppression. Mild non-productive cough. Review of Systems Review of Systems: All systems reviewed & are unremarkable except as noted in Subjective Physical Exam Constitutional: WD/WN, vitals as above Respiratory: normal respiratory effort, lungs clear to auscultation Cardiovascular: Rate/Rhythm: regular rate and regular rhythm Heart Sounds: no murmur Extremities: + pedal edema Gastrointestinal (Abdomen): normal bowel sounds, soft, nontender, no hepatosplenomegaly Skin: no rashes, warm and dry Psychiatric: A+Ox3, euthymic affect Results & Data Results & Data ([facility]) Vital Signs (Past 12 Hours) Vital Signs Temp Pulse Pulse Resp BP Pulse Ox Pulse Ox 01/16/22 06:00 93 01/16/22 03:55 36.6 C 91 H 18 126/66 92 01/15/22 23:32 36.8 C 89 18 125/68 98 01/15/22 22:14 91 H 01/15/22 21:00 01/15/22 19:29 36.6 C 96 H 20 116/63 96 O2 Del Method O2 Del Method O2 Flow Rate O2 Flow Rate 01/16/22 06:00 Nasal Cannula 1 01/16/22 03:55 Nasal Cannula 1 01/15/22 23:32 Nasal Cannula 1 01/15/22 22:14 01/15/22 21:00 Nasal Cannula 1 01/15/22 19:29 Nasal Cannula 1 PG Care Time/CCT Total # of Minutes Spent Total Time Spent with Patient: Total time spent is greater than 50% in coordination of care (as documented) at patient's floor/unit and/or counseling patient: Coding Level of Care Code 06104 Subseq Hosp Care Lvl 2 Diagnoses Pneumonia J18.9 COVID-19 U07.1 Pleural effusion associated with pulmonary infection J18.9; J91.8 Anemia N18.6; D63.1; Z99.2 Anemia type: due to chronic kidney disease Chronic kidney disease stage: on chronic dialysis Elevated troponin R77.8 Ischemic cardiomyopathy I25.5 ESRD (end stage renal disease) on dialysis N18.6; Z99.2 Depression F32.9 Type 2 diabetes mellitus with insulin therapy E11.9; Z79.4 CAD (coronary artery disease) I25.10 Dyslipidemia E78.5 (1) Anemia Anemia type: due to chronic kidney disease Chronic kidney disease stage: on chronic dialysis Qualified Code(s): N18.6 - End stage renal disease; D63.1 - Anemia in chronic kidney disease; Z99.2 - Dependence on renal dialysis
[2022-01-16 07:40] LABS: INR 1.1 (0.9-1.1); Partial Thromboplastin Ratio 1.2; Partial Thromboplastin Time 32.3 Seconds (21.0-31.0); Prothrombin Time 11.3 Seconds (9.0-12.0)
[2022-01-16 07:43] LABS: Hematocrit (blood only) 31.3 % (34.1-44.9); Hemoglobin 8.7 g/dl (12.0-16.0); Mean Corpuscular Hemoglobin 24.5 pg (25.0-34.0); Mean Corpuscular Hgb Conc 27.8 g/dL (32.0-36.0); Mean Corpuscular Volume 88.2 fL (80.0-100.0); Mean Platelet Volume 8.8 fL (9.4-12.3); Platelet Count 329 K/uL (130-400); RDW Standard Deviation 62.2 fL (36.4-46.3); Red Blood Count 3.55 M/uL (3.93-5.22); White Blood Count 11.26 K/ul (4.8-10.8)
[2022-01-16 07:44] LABS: Basophils # (auto) 0.07 K/uL (0-0.2); Basophils % (auto) 0.6 %; Eosinophils # (auto) 0.25 K/uL (0-0.50); Eosinophils % (auto) 2.2 %; Hypochromasia Present; Immature Granulocytes # (auto) 0.51 K/uL (0.00-0.02); Immature Granulocytes % (auto) 4.5 %; Lymphocytes # (auto) 1.07 K/uL (1.2-3.4); Lymphocytes % (auto) 9.5 %; Monocytes # (auto) 0.97 K/uL (0.24-0.82); Monocytes % (auto) 8.6 %; Neutrophils # (auto) 8.39 K/uL (1.4-6.5); Neutrophils % (auto) 74.6 %; Polychromasia 1+
[2022-01-16 07:51] LABS: Albumin Globulin Ratio 0.7 (0.9-2); Albumin Level 2.7 gm/dl (3.4-5.0); BUN Creatinine Ratio 10.9 (10-20); Bilirubin,Total 0.3 mg/dl (0.2-1.0); Est GFR (African American) 18.9 ml/min; Est GFR (Non-African American) 16.3 ml/min; Globulin 3.7 gm/dl (2.5-4.0); Magnesium 2.1 mg/dl (1.7-2.4); Potassium 4.3 mmol/L (3.5-5.1); Total Protein 6.4 gm/dl (6.0-8.3)
[2022-01-16] MEDS: INSULIN ASPART PER UNIT SC SCH ×4 (08:06→21:08)
[2022-01-16] MEDS: SEVELAMER HCL 800 MG TABLET PO SCH ×3 (08:08→17:01)
[2022-01-16] MEDS: amLODIPine BESYLATE 5 MG TAB PO SCH ×2 (08:08→20:23)
[2022-01-16] MEDS: ASPIRIN 81 MG ECTAB PO SCH (08:08)
[2022-01-16] MEDS: ASCORBIC ACID 500 MG TAB PO SCH (08:08)
[2022-01-16] MEDS: CALCIUM 600MG + VIT D 400 IU TAB PO SCH (08:09)
[2022-01-16] MEDS: CHOLECALCIFEROL 1,000 UNITS 25 MCG TAB PO SCH ×2 (08:09→20:24)
[2022-01-16] MEDS: hydrALAZINE TAB 50 MG TAB PO SCH ×3 (08:09→20:25)
[2022-01-16] MEDS: DOCUSATE SODIUM 100 MG CAP PO SCH ×2 (08:09→20:23)
[2022-01-16] MEDS: ISOSORBIDE MONO EXTENDED REL 60 MG TABCR PO SCH (08:10)
[2022-01-16] MEDS: CEROVITE ADV FORMULA TAB PO SCH (08:10)
[2022-01-16] MEDS: MULTIVITAMIN TAB PO SCH (08:11)
--- NOTE | 2022-01-16 10:14 | Nephrology Progress Note ---
Date of Service January 16, 2022 Assessment & Plan (1) ESRD (end stage renal disease) on dialysis: (2) Anemia: (3) COVID-19: (4) Aortic stenosis: (5) Ischemic cardiomyopathy: (6) Pneumonia: Plan ESRD on HD MWF. admitted with volume overload and hypoxia, chest x-ray is concerning for pneumonia, currently on linezolid. Clinically otherwise stable no significant shortness of breath. L forearm AVF has been functioning well. Clearances have been at goal. Recently estimated dry weight has been 63 kg and currently she is 66 kg and asymptomatic. SOB and hypoxia was most likely multifactorial. -- Continue dialysis with UF challenge to reach estimated dry weight as tolerated. Overall clinically does not seem to be volume overloaded and she has been getting dialysis regularly. --HD tomorrow -- left arm nephrology precaution, dose medications for a GFR less than 10. -- Epogen 4000 units twice a week -- continue on renal diet and 1 L fluid restriction -- continue Sevelamer as phosphate binder Will follow Admission and Anticipated Discharge Date Admission Date: January 14, 2022 Subjective Minerva was seen and examined this morning. She has been lying flat in bed and remain comfortable , no SOB, blood pressure and heart rate staying stable. No dizziness or lightheadedness. Appetite has been decent. Had 2 L UF yesterday, weight 66 kg this am. Review of Systems Review of Systems: Detailed review of system was done and otherwise unremarkable except mentioned above. Physical Exam Constitutional: WD/WN, vitals as above no acute distress Eyes: + anicteric sclerae ENMT: Ears: no hearing impairment Neck: normal visual inspection Respiratory: normal respiratory effort; no respiratory distress Auscultation: + diminished lung sounds Cardiovascular: RRR, no murmur, no edema Skin: no rashes Neurologic: no focal motor deficits Psychiatric: Orientation: alert and oriented x 3 Results & Data ([facility]) Vital Signs (Past 12 Hours) Vital Signs Temp Pulse Pulse Resp BP Pulse Ox Pulse Ox 01/16/22 08:00 01/16/22 08:01 36.6 C 82 20 138/63 95 01/16/22 06:00 93 01/16/22 03:55 36.6 C 91 H 18 126/66 92 01/15/22 23:32 36.8 C 89 18 125/68 98 O2 Del Method O2 Del Method O2 Flow Rate O2 Flow Rate 01/16/22 08:00 Nasal Cannula 1 01/16/22 08:01 Nasal Cannula 1 01/16/22 06:00 Nasal Cannula 1 01/16/22 03:55 Nasal Cannula 1 01/15/22 23:32 Nasal Cannula 1 PG Care Time/CCT Total # of Minutes Spent Total Time Spent with Patient: Total time spent is greater than 50% in coordination of care (as documented) at patient's floor/unit and/or counseling patient: Coding Level of Care Code 08225 Subseq Hosp Care Lvl 2 Diagnoses ESRD (end stage renal disease) on dialysis N18.6; Z99.2 Anemia N18.6; D63.1; Z99.2 Anemia type: due to chronic kidney disease Chronic kidney disease stage: on chronic dialysis COVID-19 U07.1 Aortic stenosis I35.0 Ischemic cardiomyopathy I25.5 Pneumonia J18.9 (1) Anemia Anemia type: due to chronic kidney disease Chronic kidney disease stage: on chronic dialysis Qualified Code(s): N18.6 - End stage renal disease; D63.1 - Anemia in chronic kidney disease; Z99.2 - Dependence on renal dialysis
--- NOTE | 2022-01-16 10:46 | XRay Report ---
XR chest 2V PA/lateral HISTORY: Right-sided pneumothorax. repeat assessment of pneumothorax COMPARISON: Chest 01/14/2022. FINDINGS: Loculated small right basilar hydropneumothorax remains unchanged. Small left pleural effus ion is also noted. The heart is mildly enlarged. Density within the right mid to lower lung zone favo rs the loculated pleural fluid and airspace opacity. Mild pulmonary edema persists. Bibasilar densiti es are also unchanged. IMPRESSION: 1. No change in the loculated small right basilar hydropneumothorax. 2. Pulmonary edema and a small left pleural effusion persists. 3. Right mid to lower lung zone density likely represents a combination of the loculated pleural flui d and airspace opacity. ACT 112: Negative or not required by law. Electronically signed by: Carlito Eugene M.D. 01/16/2022 10:44 AM
--- NOTE | 2022-01-16 10:49 | Hospitalist Progress Note ---
Date of Service January 16, 2022 Assessment & Plan (1) Pneumonia: Plan: Continue Zosyn IV. MRSA nose swab performed on advice of pulmonology and Linezolid subsequently discontinued. Recommend continuing IV antibiotics while hospitalized given ESRD, recent COVID and hospitalization. Incentive spirometer (2) Hypoxia: Plan: Pt usualy not on O2. No respiratory distress Wean O2 to aim O2 sats > 90% (3) COVID-19: Plan: Prior COVID-19 infection Previously positive on December 15, 2021 Discussed with infection control and no need for isolation (4) Pleural effusion associated with pulmonary infection: Plan: Recurrent pleural effusion with pulmonary infection/pneumonia- Repeat CXR today ?effusion larger. Will consult pulmonology for ongoing management (5) Anemia: Plan: Symptomatic anemia- Hemoglobin 8.3 on admission, with range 10.1-11.6. Appears stable on serial measurements Denies any blood loss for reason May be secondary to physiologic stress of illness No indication for transfusion at this time, but will watch serially (6) Elevated troponin: Plan: Elevated troponin/ischemic cardiomyopathy/CAD- Troponin 60.1 The patient will be admitted to telemetry for serial cardiac enzymes, serial EKG's, cardiac rhythm monitoring Suspected type II supply demand mismatch Continue hydralazine, isosorbide mononitrate, aspirin and amlodipine (7) Ischemic cardiomyopathy: Plan: See above (8) ESRD (end stage renal disease) on dialysis: Plan: Usually gets dialysis on Friday, Friday and Friday. Consult nephrology - appreciate dialysis management Continue sevelamer (9) Depression: Plan: Continue venlafaxine (10) Type 2 diabetes mellitus with insulin therapy: Plan: Continue insulin glargine 12 units subcu in the evening Place on Accu-Cheks before meals and at bedtime with NovoLog coverage per scale Glucose 119 -246 [9/] (11) CAD (coronary artery disease): Plan: See above (12) Dyslipidemia: Plan: Continue atorvastatin 80 mg at bedtime Plan VTE Prophylaxis - heparin 5000 units SQ BID Diet - T2DM, renal dialysis Disposition - continued admission due to hypoxia Admission and Anticipated Discharge Date Admission Date: January 14, 2022 Subjective No significant shortness of breath however finding it difficult to get off last 1LPM O2. Feeling just generally tired. No cough, nasal congestion or sinus pain. No chest pain. Good appetite per patient. Having normal BM. Review of Systems Review of Systems: All systems reviewed & are unremarkable except as noted in Subjective Physical Exam Constitutional: WD/WN, vitals as above Respiratory: normal respiratory effort, lungs clear to auscultation Cardiovascular: Rate/Rhythm: regular rate and regular rhythm Heart Sounds: + murmur (systolic) Extremities: no pedal edema Gastrointestinal (Abdomen): normal bowel sounds, soft, nontender, no hepatosplenomegaly Skin: no rashes, warm and dry Psychiatric: A+Ox3, euthymic affect Results & Data Results & Data ([facility]) Vital Signs (Past 12 Hours) Vital Signs Temp Pulse Pulse Resp BP Pulse Ox Pulse Ox 01/16/22 08:00 01/16/22 08:01 36.6 C 82 20 138/63 95 01/16/22 06:00 93 01/16/22 03:55 36.6 C 91 H 18 126/66 92 01/15/22 23:32 36.8 C 89 18 125/68 98 O2 Del Method O2 Del Method O2 Flow Rate O2 Flow Rate 01/16/22 08:00 Nasal Cannula 1 01/16/22 08:01 Nasal Cannula 1 01/16/22 06:00 Nasal Cannula 1 01/16/22 03:55 Nasal Cannula 1 01/15/22 23:32 Nasal Cannula 1 PG Care Time/CCT Total # of Minutes Spent Total Time Spent with Patient: Total time spent is greater than 50% in coordination of care (as documented) at patient's floor/unit and/or counseling patient: Coding Level of Care Code 04030 Subseq Hosp Care Lvl 2 Diagnoses Pneumonia J18.9 Hypoxia R09.02 COVID-19 U07.1 Pleural effusion associated with pulmonary infection J18.9; J91.8 Anemia N18.6; D63.1; Z99.2 Anemia type: due to chronic kidney disease Chronic kidney disease stage: on chronic dialysis Elevated troponin R77.8 Ischemic cardiomyopathy I25.5 ESRD (end stage renal disease) on dialysis N18.6; Z99.2 Depression F32.9 Type 2 diabetes mellitus with insulin therapy E11.9; Z79.4 CAD (coronary artery disease) I25.10 Dyslipidemia E78.5 (1) Anemia Anemia type: due to chronic kidney disease Chronic kidney disease stage: on chronic dialysis Qualified Code(s): N18.6 - End stage renal disease; D63.1 - Anemia in chronic kidney disease; Z99.2 - Dependence on renal dialysis
--- NOTE | 2022-01-16 12:18 | Pulmonary Consultation ---
Date of Consultation January 16, 2022 Assessment & Plan (1) Acute dyspnea: Secondary to acute CHF. Patient followed by nephrology and scheduled for hemodialysis. Possible superimposed pneumonia. Would recommend MRSA screen and discontinue linezolid if MRSA screen is negative. Procalcitonin elevated, but d ifficult to interpret in the context of end-stage renal disease. Chest x-ray from 01/16/2022 reviewed with findings consistent with CHF. (2) Pleural effusion: Previous thoracentesis from last month was benign and likely a transudate from CHF. She also had possible lung entrapment with her last thoracentesis. No role for further thoracentesis at this time as the patient is saturating well on 1 L oxygen. (3) Severe aortic stenosis: Recommend cardiology evaluation and consideration of TAVR at tertiary center. Unfortunately, she also has moderate to severe mitral valve regurgitation cardiology consult placed. (4) Hypoxia: Wean oxygen to maintain saturations above 92%. Secondary to acute CHF and secondary pulmonary hypertension due to valvular disease. (5) Ischemic cardiomyopathy: Defer management to cardiology and primary team. Recommend optimizing volume status. (6) COVID-19: Likely an incidental finding as I suspect that more of her pressing issues are related to aortic stenosis and CHF. History of Present Illness Reason for Consultation: Pulmonary edema and pleural effusion Attending Physician: Miguel Angel Kennedy MD History of Present Illness 81-year-old female with a past medical history of moderate to severe aortic stenosis, end-stage renal disease on hemodialysis and recent hospitalization and discharge in December for CHF presenting to the hospital on 01/14/2022 due to increasing shortness of breath. She was found to have incidental COVID-19. She was also found to have an increased weight which was thought to be related to fluid retention. She also has a worsening anemia. During her last hospitalization I performed a right thoracentesis and unfortunately, she deve loped a pneumothorax during the procedure. She had a pigtail catheter placed with improvement of pneumothorax. There was some concern of possible lung entrapment. Her fluid was negative for malignancy. There was a lymphocytic predominance, but the effusion appeared to be a transudate. She had an echo 12/12/2021 which revealed mild aortic regurgitation and moderate to severe valvular aortic stenosis. Moderate to severe mitral regurgitation noted as well. RVSP elevated to 40 to 50 mmHg. She is comfortable at this time is lying in bed. She is currently on 1 L of oxygen. Discussed with bedside nurse. No significant concerns. Cough minimal. Allergies Allergy/AdvReac Type Severity Reaction Status Date / Time codeine AdvReac Mild DOES NOT Verified 01/14/22 01:34 [address] IT MAKES HER FEEL. Home Medications Medication Instructions Recorded Confirmed Type ascorbic acid (vitamin C) 500 mg 500 mg PO QAM 12/10/18 01/14/22 History tablet venlafaxine 150 mg 150 mg PO QAM 12/10/18 01/14/22 History capsule,extended release 24 hr calcium carbonate 600 mg-vitamin 2 tab PO QAM 03/09/20 01/14/22 History D3 10 mcg (400 unit) chewable tablet (Calcium 600 with Vitamin D3) cholecalciferol (vitamin D3) 25 50 mcg PO BID 12/27/20 01/14/22 History mcg (1,000 unit) capsule vitamins A,C,D-ynnt-roehba 14,320 1 cap PO BID 06/14/21 01/14/22 History unit-226 mg-200 unit capsule (PreserVision AREDS) insulin aspart U-100 100 unit/mL 7 unit (0.07 mL) subcut TIDM #30 mL 06/22/21 01/14/22 Rx (3 mL) subcutaneous pen (Novolog Flexpen U-100 Insulin aspart) pen needle, diabetic 32 gauge x #400 ea 09/25/21 01/03/22 Rx 5/32" (BD Ultra-Fine [place] Pen Needle) betamethasone dipropionate 0.05 % 1 applic topical DIRECTED PRN 11/20/21 01/14/22 History topical cream Skin Irritation acetaminophen 500 mg tablet 1,000 mg PO Q8H PRN Pain 12/11/21 01/14/22 History (Tylenol Extra Strength) amlodipine 5 mg tablet 5 mg PO BID 12/11/21 01/14/22 History docusate sodium 100 mg capsule 100 mg PO BID 12/11/21 01/14/22 History menthol 0.44 %-zinc oxide 20.6 % 1 applic topical TID PRN NEEDED 12/11/21 01/14/22 History topical ointment (Calmoseptine) sevelamer HCl 800 mg tablet 800 mg PO TID 12/11/21 01/14/22 History atorvastatin 80 mg tablet 80 mg PO HS #90 tabs 01/03/22 01/14/22 Rx hydralazine 50 mg tablet 100 mg PO TID #90 tabs 01/03/22 01/14/22 Rx isosorbide mononitrate 120 mg 120 mg PO QAM #90 tabs 01/03/22 01/14/22 Rx tablet,extended release 24 hr aspirin 81 mg tablet,delayed 81 mg PO DAILY #30 tabs 01/04/22 01/14/22 Rx release (Adult Aspirin Regimen) insulin glargine 100 unit/mL (3 12 unit (0.12 mL) subcut QPM #15 mL 01/04/22 01/14/22 Rx mL) subcutaneous pen (Lantus Solostar U-100 Insulin) polyethylene glycol 3350 17 17 g PO DAILY PRN Constipation 01/04/22 01/14/22 Rx gram/dose oral powder #510 grams multivitamin 1 tab PO QAM 01/14/22 01/14/22 History Patient History Medical History (Updated 01/16/22 @ 12:13 by Hernandez Boogie MD) Anemia AV fistula LEFT CAD (coronary artery disease) Carotid artery disease less than 50% ICA stenosis per 08/2016 carotid duplex CHF (congestive heart failure) Chronic gastroesophageal reflux disease Chronic kidney disease on HD Dehiscence of wound Depression Diabetic peripheral neuropathy associated with type 2 diabetes mellitus Dialysis patient 3XWK (M/W/F) [facility]>FOLLOWED BY DR. HATHAWAY Dyslipidemia Gallstones Generalized osteoarthritis of multiple sites Graves disease H/O malignant neoplasm of uterine body Hiatal hernia History of kidney stones Hydropneumothorax Hypertension Irregular heart beat metoprolol for this per pt Lab test negative for COVID-19 virus Macular degeneration Moderate calcific aortic stenosis Multinodular goiter (nontoxic) Multiple thyroid nodules Obesity Osteopenia Patella fracture Secondary hyperparathyroidism Sepsis Severe aortic stenosis Sleep apnea No device Type 2 diabetes mellitus with insulin therapy Surgical History H/O abdominoplasty H/O basal cell carcinoma excision H/O shoulder surgery Right History of appendectomy History of cataract surgery R/L History of colonoscopy History of esophagogastroduodenoscopy (EGD) History of hip surgery Closed intertrochanteric fracture of left femur 04/10/2021: 02/16/2021: Grade 4 view, MAC#3, ETT#7.0. No issues per anesthesia postop progress note. History of open reduction and internal fixation (ORIF) procedure right patella 05/18/2021: LMA#4 atraumatic + PNB. No issues per anesthesia postop progress note. History of tonsillectomy History of tooth extraction S/P complete hysterectomy Status post knee surgery 05/31/21 Dr. Heriberto Ly- Incision and Debridement Right Knee, Right Open Reduction Internal Fixation Patella, Hardware Removal(Right) Family History Father Diabetes Lung cancer Family history of diabetes mellitus Mother , in a home fire Hypertension Family history of diabetes mellitus Daughter Family history of diabetes mellitus Son Family history of diabetes mellitus Other No family history of adverse response to anesthesia Denies family history of Ovarian cancer Prostate cancer Myocardial infarction Breast cancer Colorectal cancer Social History Smoking Status: Former smoker Tobacco Type: Cigarettes Second Hand Exposure: No; Hx Alcohol Use: Yes Alcohol type: hard liquor Hx Substance Use: No Preferred Language: Icelandic Communication Ability: Effective Visual Impairment: No Limitations Hearing Ability: Normal Station Captain Required: No Beliefs That Will Affect Care: None marital status: / Current Living Situation: Family Current Living Situation Comment: Son and Daughter in law. current occupational status: retired How many Children do You have: 4 Feels Safe at Home: Yes Safety Concerns Comment: unsteady at times Childhood Exposure to Second-Hand Smoke: Yes Dental Care, Regularly: No Physical Activity Frequency: Does not Exercise Seatbelt Use: always Sunscreen Use: No Assistive Devices: Bedside Commode, Hospital Bed, Slide Board and Wheelchair Review of Systems Review of Systems: All systems reviewed & are unremarkable except as noted in HPI & below Physical Exam Physical Exam: Constitutional: Elderly appearing female no apparent distress. Nasal cannula in place. Eyes: Pupils are equal round and reactive to light. Conjunctivae are normal. Anicteric sclera. Ears nose, mouth and throat: Deferred. Neck: Trachea is midline. Visual inspection is normal. Respiratory: Diminished bilaterally. Crackles. Cardiovascular: Regular rate and rhythm. No murmurs. No edema. Gastrointestinal: Normal bowel sounds, soft, nontender and nondistended. No hepatosplenomegaly noted. Musculoskeletal: Right lower extremity amputation. Skin: No rashes, warm dry and intact. Neurologic: No obvious focal neurological deficits seen. Psychiatric: Alert and oriented x3 with a euthymic affect. Results & Data Results & Data ([facility]) Vital Signs (Past 12 Hours) Vital Signs Temp Pulse Pulse Resp BP Pulse Ox Pulse Ox 01/16/22 11:33 36.6 C 88 18 126/57 L 98 01/16/22 08:00 01/16/22 08:01 36.6 C 82 20 138/63 95 01/16/22 06:00 93 01/16/22 03:55 36.6 C 91 H 18 126/66 92 O2 Del Method O2 Del Method O2 Flow Rate O2 Flow Rate 01/16/22 11:33 Nasal Cannula 1 01/16/22 08:00 Nasal Cannula 1 01/16/22 08:01 Nasal Cannula 1 01/16/22 06:00 Nasal Cannula 1 01/16/22 03:55 Nasal Cannula 1 PG Care Time/CCT Total # of Minutes Spent Total Time Spent with Patient: Total time spent is greater than 50% in coordination of care (as documented) at patient's floor/unit and/or counseling patient: Coding Level of Care Code 71777 Initial Inpt Care Lvl 3 Diagnoses Acute dyspnea R06.00 Pleural effusion J90 Severe aortic stenosis I35.0 Hypoxia R09.02 Ischemic cardiomyopathy I25.5 COVID-19 U07.1
--- NOTE | 2022-01-16 13:51 | Cardiology Consultation ---
Date of Consultation January 16, 2022 Assessment & Plan (1) Elevated troponin: (2) Aortic stenosis: (3) Pulmonary edema: (4) Cardiomyopathy: (5) Mitral regurgitation: Plan 1. Aortic stenosis: Her last echocardiogram did not suggest severe aortic stenosis. This was performed approximately 1 month ago. There has been some changes in the transaortic velocities over time in the was 1 echocardiogram suggestive of severe aortic stenosis based on the velocity, but the dimensionl ess index was not indicative of severe stenosis. I do not think she is symptomatic from the valve currently. 2. Cardiomyopathy: She has mildly reduced LV systolic function. Her outpatient medical regimen does not contain any guideline directed therapy for her cardiomyopathy. It seems that in January of last year she was on metoprolol. However, review of her records indicates that this medication was dropped shortly afterwards and has never been resumed. 3. Elevated troponin: Mild. I do not believe this represents recent ischemia. I do not believe this requires an evaluation for ischemia. 4. Mitral regurgitation: Non severe. 5. Dyspnea: Multifactorial. Likely an element pulmonary vascular congestion. However, her volume is controlled currently by dialysis. She was lying flat in quite comfortable at the time of my evaluation. It seems her rejecting her dry weight. History of Present Illness Reason for Consultation: Aortic stenosis Requesting Physician: Chuyita Attending Physician: Miguel Angel Kennedy MD History of Present Illness The patient is a 81-year-old woman with a known history of mildly reduced LV systolic function, congestive heart failure, peripheral vascular disease and aortic stenosis who has been struggling over the years with decompensated heart failure. Most recently she was started on dialysis and has been doing well. However, she was admitted to the hospital was some worsening breathing difficulty that began few days ago. This is felt to be related to a combination of things such as a new infiltrate on x-ray, pulmonary vascular congestion and possibly COVID-19. The patient did report few lb weight gain. She actually has been doing well on dialysis. She did not report any specific problems associated with dialysis. She feels tired afterwards but did not endorse symptoms of chest pain or dizziness. She gets some dizziness when standing up rapidly. This is longstanding in nature. No history of syncope. No chest pain with exertion. Unfortunately, she is very sedentary due to the amputation of the right lower extremity. She has not been aware of any palpitations. She did not report frequent coughing. No history of fevers or chills. Allergies Allergy/AdvReac Type Severity Reaction Status Date / Time codeine AdvReac Mild DOES NOT Verified 01/14/22 01:[address] IT MAKES HER FEEL. Home Medications Medication Instructions Recorded Confirmed Type ascorbic acid (vitamin C) 500 mg 500 mg PO QAM 12/10/18 01/14/22 History tablet venlafaxine 150 mg 150 mg PO QAM 12/10/18 01/14/22 History capsule,extended release 24 hr calcium carbonate 600 mg-vitamin 2 tab PO QAM 03/09/20 01/14/22 History D3 10 mcg (400 unit) chewable tablet (Calcium 600 with Vitamin D3) cholecalciferol (vitamin D3) 25 50 mcg PO BID 12/27/20 01/14/22 History mcg (1,000 unit) capsule vitamins A,C,B-fqkx-hnrkgd 14,320 1 cap PO BID 06/14/21 01/14/22 History unit-226 mg-200 unit capsule (PreserVision AREDS) insulin aspart U-100 100 unit/mL 7 unit (0.07 mL) subcut TIDM #30 mL 06/22/21 01/14/22 Rx (3 mL) subcutaneous pen (Novolog Flexpen U-100 Insulin aspart) pen needle, diabetic 32 gauge x #400 ea 09/25/21 01/03/22 Rx 5/32" (BD Ultra-Fine [place] Pen Needle) betamethasone dipropionate 0.05 % 1 applic topical DIRECTED PRN 11/20/21 01/14/22 History topical cream Skin Irritation acetaminophen 500 mg tablet 1,000 mg PO Q8H PRN Pain 12/11/21 01/14/22 History (Tylenol Extra Strength) amlodipine 5 mg tablet 5 mg PO BID 12/11/21 01/14/22 History docusate sodium 100 mg capsule 100 mg PO BID 12/11/21 01/14/22 History menthol 0.44 %-zinc oxide 20.6 % 1 applic topical TID PRN NEEDED 12/11/21 01/14/22 History topical ointment (Calmoseptine) sevelamer HCl 800 mg tablet 800 mg PO TID 12/11/21 01/14/22 History atorvastatin 80 mg tablet 80 mg PO HS #90 tabs 01/03/22 01/14/22 Rx hydralazine 50 mg tablet 100 mg PO TID #90 tabs 01/03/22 01/14/22 Rx isosorbide mononitrate 120 mg 120 mg PO QAM #90 tabs 01/03/22 01/14/22 Rx tablet,extended release 24 hr aspirin 81 mg tablet,delayed 81 mg PO DAILY #30 tabs 01/04/22 01/14/22 Rx release (Adult Aspirin Regimen) insulin glargine 100 unit/mL (3 12 unit (0.12 mL) subcut QPM #15 mL 01/04/22 01/14/22 Rx mL) subcutaneous pen (Lantus Solostar U-100 Insulin) polyethylene glycol 3350 17 17 g PO DAILY PRN Constipation 01/04/22 01/14/22 Rx gram/dose oral powder #510 grams multivitamin 1 tab PO QAM 01/14/22 01/14/22 History Patient History Medical History (Updated 01/16/22 @ 17:22 by Aamir Travis MD) Anemia AV fistula LEFT CAD (coronary artery disease) Carotid artery disease less than 50% ICA stenosis per 08/2016 carotid duplex CHF (congestive heart failure) Chronic gastroesophageal reflux disease Chronic kidney disease on HD Dehiscence of wound Depression Diabetic peripheral neuropathy associated with type 2 diabetes mellitus Dialysis patient 3XWK (M/W/F) [facility]>FOLLOWED BY DR. HATHAWAY Dyslipidemia Gallstones Generalized osteoarthritis of multiple sites Graves disease H/O malignant neoplasm of uterine body Hiatal hernia History of kidney stones Hydropneumothorax Hypertension Irregular heart beat metoprolol for this per pt Lab test negative for COVID-19 virus Macular degeneration Moderate calcific aortic stenosis Multinodular goiter (nontoxic) Multiple thyroid nodules Obesity Osteopenia Patella fracture Secondary hyperparathyroidism Sepsis Severe aortic stenosis Sleep apnea No device Type 2 diabetes mellitus with insulin therapy Surgical History H/O abdominoplasty H/O basal cell carcinoma excision H/O shoulder surgery Right History of appendectomy History of cataract surgery R/L History of colonoscopy History of esophagogastroduodenoscopy (EGD) History of hip surgery Closed intertrochanteric fracture of left femur 04/10/2021: 02/16/2021: Grade 4 view, MAC#3, ETT#7.0. No issues per anesthesia postop progress note. History of open reduction and internal fixation (ORIF) procedure right patella 05/18/2021: LMA#4 atraumatic + PNB. No issues per anesthesia postop progress note. History of tonsillectomy History of tooth extraction S/P complete hysterectomy Status post knee surgery 05/31/21 Dr. Heriberto Ly- Incision and Debridement Right Knee, Right Open Reduction Internal Fixation Patella, Hardware Removal(Right) Family History Father Diabetes Lung cancer Family history of diabetes mellitus Mother , in a home fire Hypertension Family history of diabetes mellitus Daughter Family history of diabetes mellitus Son Family history of diabetes mellitus Other No family history of adverse response to anesthesia Denies family history of Ovarian cancer Prostate cancer Myocardial infarction Breast cancer Colorectal cancer Social History Smoking Status: Former smoker Tobacco Type: Cigarettes Second Hand Exposure: No; Hx Alcohol Use: Yes Alcohol type: hard liquor Hx Substance Use: No Preferred Language: Chadian Communication Ability: Effective Visual Impairment: No Limitations Hearing Ability: Normal Platform Loader Required: No Beliefs That Will Affect Care: None marital status: / Current Living Situation: Family Current Living Situation Comment: Son and Daughter in law. current occupational status: retired How many Children do You have: 4 Feels Safe at Home: Yes Safety Concerns Comment: unsteady at times Childhood Exposure to Second-Hand Smoke: Yes Dental Care, Regularly: No Physical Activity Frequency: Does not Exercise Seatbelt Use: always Sunscreen Use: No Assistive Devices: Bedside Commode, Hospital Bed, Slide Board and Wheelchair Review of Systems Review of Systems: Per HPI. Some discomfort when lying on the right side due to a rotator cuff injury. Physical Exam Physical Exam: She is alert and oriented x3. Mood affect appear normal. She answered all questions appropriately. HEENT: Sclerae are anicteric. Pupils are equal and reactive to light and accommodation. Extraocular movements were intact. Neuro: Cranial nerves intact Lungs: Reduced breath sounds in the right base. No rales. No expiratory wheezing. Normal respiratory effort. Cardiac: The rhythm was regular. S1 and S2 were normal. Low pitch mid peaking crescendo systolic murmur. The PMI was not markedly displaced on palpation. Abdomen: The abdomen was soft and nontender. Extremities: Right above knee amputation. Patient has bilateral radial pulses that are equal in intensity. There is no evidence cyanosis or clubbing. There was no evidence of significant peripheral edema bilaterally. Fistula in left forearm. Skin: There are no rashes noted on examination today. Results & Data ([facility]) Vital Signs (Past 12 Hours) Vital Signs Temp Pulse Pulse Resp BP Pulse Ox Pulse Ox 01/16/22 11:33 36.6 C 88 18 126/57 L 98 01/16/22 08:00 01/16/22 08:01 36.6 C 82 20 138/63 95 01/16/22 06:00 93 01/16/22 03:55 36.6 C 91 H 18 126/66 92 O2 Del Method O2 Del Method O2 Flow Rate O2 Flow Rate 01/16/22 11:33 Nasal Cannula 1 01/16/22 08:00 Nasal Cannula 1 01/16/22 08:01 Nasal Cannula 1 01/16/22 06:00 Nasal Cannula 1 01/16/22 03:55 Nasal Cannula 1 Laboratory Results Abnormal Lab Results 01/15/22 01/16/22 01/16/22 20:25 07:10 07:10 WBC 11.26 H RBC 3.55 L Hgb 8.7 L Hct 31.3 L MCV 88.2 MCH 24.5 L MCHC 27.8 L RDW Std Deviation 62.2 H RDW Coeff of Chris 20.0 H Plt Count 329 MPV 8.8 L Immature Gran % (Auto) 4.5 Neut % (Auto) 74.6 Lymph % (Auto) 9.5 Floyd % (Auto) 8.6 Eos % (Auto) 2.2 Baso % (Auto) 0.6 Neut # (Auto) 8.39 H Lymph # (Auto) 1.07 L Floyd # (Auto) 0.97 H Eos # (Auto) 0.25 Baso # (Auto) 0.07 Immature Gran # (Auto) 0.51 H Polychromasia 1+ Hypochromasia Present PT 11.3 INR 1.1 APTT 32.3 H PTT Ratio 1.2 Sodium Potassium Chloride Carbon Dioxide Anion Gap BUN Creatinine Est Cr Clr Drug Dosing Est GFR ( Amer) Est GFR (Non-Af Amer) BUN/Creatinine Ratio Glucose POC Glucose 144 H Calcium Magnesium Total Bilirubin AST ALT Alkaline Phosphatase Total Protein Albumin Globulin Albumin/Globulin Ratio 01/16/22 01/16/22 01/16/22 07:10 07:33 11:14 WBC RBC Hgb Hct MCV MCH MCHC RDW Std Deviation RDW Coeff of Chris Plt Count MPV Immature Gran % (Auto) Neut % (Auto) Lymph % (Auto) Floyd % (Auto) Eos % (Auto) Baso % (Auto) Neut # (Auto) Lymph # (Auto) Floyd # (Auto) Eos # (Auto) Baso # (Auto) Immature Gran # (Auto) Polychromasia Hypochromasia PT INR APTT PTT Ratio Sodium 135 L Potassium 4.3 Chloride 98 Carbon Dioxide 31 Anion Gap 6 BUN 29 H D Creatinine 2.67 H D Est Cr Clr Drug Dosing 16.0 Est GFR ( Amer) 18.9 Est GFR (Non-Af Amer) 16.3 BUN/Creatinine Ratio 10.9 Glucose 126 H POC Glucose 146 H 198 H Calcium 10.0 Magnesium 2.1 Total Bilirubin 0.3 AST 15 ALT 14 Alkaline Phosphatase 94 Total Protein 6.4 Albumin 2.7 L Globulin 3.7 Albumin/Globulin Ratio 0.7 L 01/16/22 16:02 WBC RBC Hgb Hct MCV MCH MCHC RDW Std Deviation RDW Coeff of Chris Plt Count MPV Immature Gran % (Auto) Neut % (Auto) Lymph % (Auto) Floyd % (Auto) Eos % (Auto) Baso % (Auto) Neut # (Auto) Lymph # (Auto) Floyd # (Auto) Eos # (Auto) Baso # (Auto) Immature Gran # (Auto) Polychromasia Hypochromasia PT INR APTT PTT Ratio Sodium Potassium Chloride Carbon Dioxide Anion Gap BUN Creatinine Est Cr Clr Drug Dosing Est GFR ( Amer) Est GFR (Non-Af Amer) BUN/Creatinine Ratio Glucose POC Glucose 122 H Calcium Magnesium Total Bilirubin AST ALT Alkaline Phosphatase Total Protein Albumin Globulin Albumin/Globulin Ratio Diagnostic Findings Echocardiogram performed 12/12/2021: Mildly reduced LV systolic function with ejection fraction of 45%. Posterior wall is hypokinetic. Mild aortic regurgitation. Moderate to severe aortic stenosis. Moderate to severe mitral regurgitation. Chest x-ray obtained the time admission revealed interstitial pulmonary edema. Small right pneumothorax. Possible pneumonia in the right lung. ECG Additional Comments: EKG demonstrates normal sinus rhythm. Normal EKG. PG Care Time/CCT Total # of Minutes Spent Total Time Spent with Patient: Total time spent is greater than 50% in coordination of care (as documented) at patient's floor/unit and/or counseling patient: Coding Level of Care Code 35538 Initial Inpt Care Lvl 3 Diagnoses Elevated troponin R77.8 Aortic stenosis I35.0 Pulmonary edema J81.1 Cardiomyopathy I42.9 Cardiomyopathy type: unspecified Mitral regurgitation I34.0 (1) Cardiomyopathy Cardiomyopathy type: unspecified Qualified Code(s): I42.9 - Cardiomyopathy, unspecified
[2022-01-16] MEDS: ATORVASTATIN 40 MG TAB PO SCH (20:24)
[2022-01-16] MEDS: LANTUS PER UNIT CHARGE SQ SCH (21:08)
[2022-01-16] MEDS: ACETAMINOPHEN 500 MG TAB PO PRN (22:19)
[2022-01-17] MEDS: PIPERACILLIN/TAZOBACTAM 3.375 GM in DEXTROSE 5% 100 ML IV SCH ×2 (02:45→15:01)
--- NOTE | 2022-01-17 06:19 | Electrocardiogram Report ---
Test Reason : Blood Pressure : / mmHG Vent. Rate : 085 BPM Atrial Rate : 085 BPM P-R Int : 158 ms QRS Dur : 112 ms QT Int : 378 ms P-R-T Axes : 085 004 066 degrees QTc Int : 449 ms Normal sinus rhythm Normal ECG When compared with ECG of 15-JAN-2022 05:31, No significant change was found Confirmed by Patrice Berrios ([id number]) on 01/17/2022 6:18:54 AM Referred By: David Lopez Confirmed By:Patrice Berrios
[2022-01-17 07:27] LABS: Partial Thromboplastin Ratio 1.1
[2022-01-17] MEDS: DOCUSATE SODIUM 100 MG CAP PO SCH ×2 (08:36→19:56)
[2022-01-17] MEDS: ASCORBIC ACID 500 MG TAB PO SCH (08:37)
[2022-01-17] MEDS: SEVELAMER HCL 800 MG TABLET PO SCH ×3 (08:38→17:52)
[2022-01-17] MEDS: MULTIVITAMIN TAB PO SCH (08:38)
[2022-01-17] MEDS: CALCIUM 600MG + VIT D 400 IU TAB PO SCH (08:38)
[2022-01-17] MEDS: CEROVITE ADV FORMULA TAB PO SCH (08:39)
[2022-01-17] MEDS: ASPIRIN 81 MG ECTAB PO SCH (08:39)
[2022-01-17] MEDS: CHOLECALCIFEROL 1,000 UNITS 25 MCG TAB PO SCH ×2 (08:40→19:57)
[2022-01-17] MEDS: INSULIN ASPART PER UNIT SC SCH ×4 (08:50→20:34)
[2022-01-17] MEDS: HEPARIN SOD 5,000 UNIT/0.5 ML VIAL SQ SCH ×2 (08:55→19:58)
--- NOTE | 2022-01-17 09:32 | Nephrology Progress Note ---
Date of Service January 17, 2022 Assessment & Plan (1) ESRD (end stage renal disease) on dialysis: (2) Anemia: (3) COVID-19: (4) Aortic stenosis: (5) Ischemic cardiomyopathy: (6) Pneumonia: Plan ESRD on HD MWF. admitted with volume overload and hypoxia, chest x-ray is concerning for pneumonia, currently on linezolid. Clinically otherwise stable no significant shortness of breath. L forearm AVF has been functioning well. Clearances have been at goal. Estimated dry weight 63 kg and currently she is 65 kg and asymptomatic while lying flat in bed. SOB and hypoxia was most likely multifactorial. -- hemodialysis with UF to reach estimated dry weight as tolerated. Overall clinically does not seem to be volume overloaded. -- left arm nephrology precaution, dose medications for a GFR less than 10. -- Epogen 4000 units twice a week with HD -- continue on renal diet and 1 L fluid restriction -- continue Sevelamer as phosphate binder Will follow Admission and Anticipated Discharge Date Admission Date: January 14, 2022 Jason Palma was seen and examined during that dialysis this morning. She has been tolerating dialysis and so far tolerating UF challenges, blood pressure and heart rate staying stable. No dizziness or lightheadedness. Denies significant shortness of breath overnight. Appetite has been decent. Review of Systems Review of Systems: Detailed review of system was done and otherwise unremarkable except mentioned above. Physical Exam Constitutional: WD/WN, vitals as above no acute distress Neck: normal visual inspection Respiratory: normal respiratory effort; no respiratory distress Auscultation: + diminished lung sounds Cardiovascular: Rate/Rhythm: regular rate and regular rhythm Heart Sounds: + murmur Extremities: no edema Skin: no rashes Neurologic: no focal motor deficits Psychiatric: Orientation: alert and oriented x 3 Results & Data ([facility]) Vital Signs (Past 12 Hours) Vital Signs Temp Pulse Pulse Pulse Resp BP Pulse Ox 01/17/22 07:53 36.5 C 84 18 154/66 H 95 01/17/22 07:36 76 01/17/22 06:00 01/17/22 03:07 36.6 C 73 14 138/64 98 01/16/22 23:53 36.6 C 82 16 128/65 97 O2 Del Method O2 Del Method O2 Flow Rate O2 Flow Rate 01/17/22 07:53 Nasal Cannula 2 01/17/22 07:36 01/17/22 06:00 Nasal Cannula 1 01/17/22 03:07 Nasal Cannula 1 01/16/22 23:53 Nasal Cannula 1 PG Care Time/CCT Total # of Minutes Spent Total Time Spent with Patient: Total time spent is greater than 50% in coordination of care (as documented) at patient's floor/unit and/or counseling patient: Coding Level of Care Code 72559 Subseq Hosp Care Lvl 3 Diagnoses ESRD (end stage renal disease) on dialysis N18.6; Z99.2 Anemia N18.6; D63.1; Z99.2 Anemia type: due to chronic kidney disease Chronic kidney disease stage: on chronic dialysis COVID-19 U07.1 Aortic stenosis I35.0 Ischemic cardiomyopathy I25.5 Pneumonia J18.9 (1) Anemia Anemia type: due to chronic kidney disease Chronic kidney disease stage: on chronic dialysis Qualified Code(s): N18.6 - End stage renal disease; D63.1 - Anemia in chronic kidney disease; Z99.2 - Dependence on renal dialysis
[2022-01-17] MEDS: ACETAMINOPHEN 500 MG TAB PO PRN ×2 (13:28→21:04)
[2022-01-17] MEDS: hydrALAZINE TAB 50 MG TAB PO SCH ×3 (13:29→19:59)
[2022-01-17] MEDS: amLODIPine BESYLATE 5 MG TAB PO SCH ×2 (13:29→19:58)
[2022-01-17] MEDS: ISOSORBIDE MONO EXTENDED REL 60 MG TABCR PO SCH (13:30)
--- NOTE | 2022-01-17 16:58 | Pulmonology Progress Note ---
Date of Service January 17, 2022 Assessment & Plan (1) Acute dyspnea: Plan: Secondary to acute CHF. Patient followed by nephrology and scheduled for hemodialysis. No signs of bacterial pna. Agree with d/c abx. Chest x-ray from 01/16/2022 reviewed with findings consistent with CHF. (2) Pleural effusion: Plan: Previous thoracentesis from last month was benign and likely a transudate from CHF. She also had possible lung entrapment with her last thoracentesis. No role for further thoracentesis at this time as the patient is saturating well on 1-2 L oxygen. (3) Severe aortic stenosis: Plan: Cards note reviewed. Moderate aortic and mitral disease. Maintain euvolemia. (4) Hypoxia: Plan: Noc ox on room air tonight. (5) Ischemic cardiomyopathy: Plan: Defer management to cardiology and primary team. Recommend optimizing volume status. (6) COVID-19: Plan: No active disease. Admission and Anticipated Discharge Date Admission Date: January 14, 2022 Subjective Patient feels back to her baseline. Denies dyspnea at rest. Wheelchair bound normally due to RLE below the knee amputatution. Review of Systems Review of Systems: All systems reviewed & are unremarkable except as noted in HPI & below Physical Exam Physical Exam: Constitutional: Elderly appearing female no apparent distress. Nasal cannula in place. Eyes: Pupils are equal round and reactive to light. Conjunctivae are normal. Anicteric sclera. Ears nose, mouth and throat: Deferred. Neck: Trachea is midline. Visual inspection is normal. Respiratory: Diminished bilaterally. Crackles. Cardiovascular: Regular rate and rhythm. No murmurs. No edema. Gastrointestinal: Normal bowel sounds, soft, nontender and nondistended. No hepatosplenomegaly noted. Musculoskeletal: Right lower extremity amputation. Skin: No rashes, warm dry and intact. Neurologic: No obvious focal neurological deficits seen. Psychiatric: Alert and oriented x3 with a euthymic affect. Results & Data Results & Data ([facility]) Vital Signs (Past 12 Hours) Vital Signs Temp Pulse Pulse Resp BP BP Pulse Ox 01/17/22 14:28 97 H 01/17/22 12:41 48 L 96/47 L 01/17/22 13:20 36.4 C L 52 L 18 168/68 H 99 01/17/22 12:44 36.5 C 71 119/59 L 01/17/22 12:30 43 L 125/44 L 01/17/22 12:15 46 L 119/36 L 01/17/22 12:00 48 L 130/50 L 01/17/22 11:30 49 L 114/49 L 01/17/22 11:15 44 L 102/36 L 01/17/22 11:00 82 104/46 L 01/17/22 10:30 55 L 120/69 01/17/22 10:00 50 L 127/60 01/17/22 09:30 84 131/61 01/17/22 09:11 88 147/62 H 01/17/22 09:03 36.7 C 89 01/17/22 07:53 36.5 C 84 18 154/66 H 95 01/17/22 07:36 76 01/17/22 06:00 O2 Del Method O2 Del Method O2 Flow Rate O2 Flow Rate 01/17/22 14:28 01/17/22 12:41 01/17/22 13:20 01/17/22 12:44 01/17/22 12:30 01/17/22 12:15 01/17/22 12:00 01/17/22 11:30 01/17/22 11:15 01/17/22 11:00 01/17/22 10:30 01/17/22 10:00 01/17/22 09:30 01/17/22 09:11 01/17/22 09:03 01/17/22 07:53 Nasal Cannula 2 01/17/22 07:36 01/17/22 06:00 Nasal Cannula 1 PG Care Time/CCT Total # of Minutes Spent Total Time Spent with Patient: Total time spent is greater than 50% in coordination of care (as documented) at patient's floor/unit and/or counseling patient: Coding Level of Care Code 67469 Subseq Hosp Care Lvl 2 Diagnoses Acute dyspnea R06.00 Pleural effusion J90 Severe aortic stenosis I35.0 Hypoxia R09.02 Ischemic cardiomyopathy I25.5 COVID-19 U07.1
[2022-01-17] MEDS: ATORVASTATIN 40 MG TAB PO SCH (19:59)
[2022-01-17] MEDS: LANTUS PER UNIT CHARGE SQ SCH (21:03)
--- NOTE | 2022-01-17 21:53 | Hospitalist Progress Note ---
Date of Service January 17, 2022 Assessment & Plan (1) Pneumonia: Plan: Continue Zosyn IV. MRSA nose swab performed on advice of pulmonology and Linezolid subsequently discontinued. Recommend continuing IV antibiotics while hospitalized given ESRD, recent COVID and hospitalization. Incentive spirometer currently on 1 liter nasal cannula possible discharge on 01/18 (2) Hypoxia: Plan: Pt usualy not on O2. No respiratory distress Wean O2 to aim O2 sats > 90% (3) COVID-19: Plan: Prior COVID-19 infection Previously positive on December 15, 2021 Discussed with infection control and no need for isolation (4) Pleural effusion associated with pulmonary infection: Plan: Recurrent pleural effusion with pulmonary infection/pneumonia- Repeat CXR today ?effusion larger. Will consult pulmonology for ongoing management (5) Anemia: Plan: Symptomatic anemia- Hemoglobin 8.3 on admission, with range 10.1-11.6. Appears stable on serial measurements Denies any blood loss for reason May be secondary to physiologic stress of illness No indication for transfusion at this time, but will watch serially (6) Elevated troponin: Plan: Elevated troponin/ischemic cardiomyopathy/CAD- Troponin 60.1 The patient will be admitted to telemetry for serial cardiac enzymes, serial EKG's, cardiac rhythm monitoring Suspected type II supply demand mismatch Continue hydralazine, isosorbide mononitrate, aspirin and amlodipine (7) Ischemic cardiomyopathy: Plan: See above (8) ESRD (end stage renal disease) on dialysis: Plan: Usually gets dialysis on Friday, Friday and Friday. Consult nephrology - appreciate dialysis management Continue sevelamer (9) Depression: Plan: Continue venlafaxine (10) Type 2 diabetes mellitus with insulin therapy: Plan: Continue insulin glargine 12 units subcu in the evening Place on Accu-Cheks before meals and at bedtime with NovoLog coverage per scale Glucose 119 -246 [01/15] (11) CAD (coronary artery disease): Plan: See above (12) Dyslipidemia: Plan: Continue atorvastatin 80 mg at bedtime Plan VTE Prophylaxis - heparin 5000 units SQ BID Diet - T2DM, renal dialysis Disposition - continued admission due to hypoxia Admission and Anticipated Discharge Date Admission Date: January 14, 2022 Subjective Patient reports feeling better today. She has no new complaints at this time. Review of Systems Review of Systems: All systems reviewed & are unremarkable except as noted in HPI & below Physical Exam 2 Constitutional: WD/WN, vitals as above Respiratory: normal respiratory effort, lungs clear to auscultation Cardiovascular: Rate/Rhythm: regular rate and regular rhythm Heart Sounds: + murmur (systolic) Extremities: no pedal edema Gastrointestinal (Abdomen): normal bowel sounds, soft, nontender, no hepatosplenomegaly Skin: no rashes, warm and dry Psychiatric: A+Ox3, euthymic affect Results & Data Results & Data ([facility]) Vital Signs (Past 12 Hours) Vital Signs Temp Pulse Pulse Pulse Resp BP BP 01/17/22 19:19 37 C 63 16 124/60 01/17/22 14:28 97 H 01/17/22 12:41 48 L 96/47 L 01/17/22 13:20 36.4 C L 52 L 18 168/68 H 01/17/22 12:44 36.5 C 71 119/59 L 01/17/22 12:30 43 L 125/44 L 01/17/22 12:15 46 L 119/36 L 01/17/22 12:00 48 L 130/50 L 01/17/22 11:30 49 L 114/49 L 01/17/22 11:15 44 L 102/36 L 01/17/22 11:00 82 104/46 L 01/17/22 10:30 55 L 120/69 01/17/22 10:00 50 L 127/60 Pulse Ox O2 Del Method O2 Flow Rate 01/17/22 19:19 97 Nasal Cannula 1 01/17/22 14:28 01/17/22 12:41 01/17/22 13:20 99 01/17/22 12:44 01/17/22 12:30 01/17/22 12:15 01/17/22 12:00 01/17/22 11:30 01/17/22 11:15 01/17/22 11:00 01/17/22 10:30 01/17/22 10:00 PG Care Time/CCT Total # of Minutes Spent Total Time Spent with Patient: Total time spent is greater than 50% in coordination of care (as documented) at patient's floor/unit and/or counseling patient: Coding Level of Care Code 68376 Subseq Hosp Care Lvl 2 Diagnoses Pneumonia J18.9 Hypoxia R09.02 COVID-19 U07.1 Pleural effusion associated with pulmonary infection J18.9; J91.8 Anemia N18.6; D63.1; Z99.2 Anemia type: due to chronic kidney disease Chronic kidney disease stage: on chronic dialysis Elevated troponin R77.8 Ischemic cardiomyopathy I25.5 ESRD (end stage renal disease) on dialysis N18.6; Z99.2 Depression F32.9 Type 2 diabetes mellitus with insulin therapy E11.9; Z79.4 CAD (coronary artery disease) I25.10 Dyslipidemia E78.5 Time Spent (min) 25 (1) Anemia Anemia type: due to chronic kidney disease Chronic kidney disease stage: on chronic dialysis Qualified Code(s): N18.6 - End stage renal disease; D63.1 - Anemia in chronic kidney disease; Z99.2 - Dependence on renal dialysis
[2022-01-18] MEDS: PIPERACILLIN/TAZOBACTAM 3.375 GM in DEXTROSE 5% 100 ML IV SCH (03:36)
[2022-01-18 06:10] LABS: Hematocrit (blood only) 30.7 % (34.1-44.9); Hemoglobin 8.6 g/dl (12.0-16.0); Mean Corpuscular Hemoglobin 24.6 pg (25.0-34.0); Mean Corpuscular Volume 87.7 fL (80.0-100.0); Mean Platelet Volume 8.7 fL (9.4-12.3); Platelet Count 294 K/uL (130-400); RDW Coefficient of Variation 20.3 % (11.5-14.5); RDW Standard Deviation 62.8 fL (36.4-46.3); White Blood Count 9.53 K/ul (4.8-10.8)
[2022-01-18 06:58] LABS: BUN Creatinine Ratio 9.4 (10-20); Calcium 9.9 mg/dl (8.5-10.1); Creatinine Clr Calc Pharmacy 16.8 ml/min; Est GFR (African American) 20.1 ml/min; Est GFR (Non-African American) 17.3 ml/min; Potassium 3.6 mmol/L (3.5-5.1)
[2022-01-18] MEDS: INSULIN ASPART PER UNIT SC SCH ×4 (07:30→21:57)
[2022-01-18] MEDS: amLODIPine BESYLATE 5 MG TAB PO SCH ×2 (08:11→22:04)
[2022-01-18] MEDS: CHOLECALCIFEROL 1,000 UNITS 25 MCG TAB PO SCH ×2 (08:11→22:04)
[2022-01-18] MEDS: MULTIVITAMIN TAB PO SCH (08:11)
[2022-01-18] MEDS: hydrALAZINE TAB 50 MG TAB PO SCH ×3 (08:11→22:03)
[2022-01-18] MEDS: ASPIRIN 81 MG ECTAB PO SCH (08:12)
[2022-01-18] MEDS: CALCIUM 600MG + VIT D 400 IU TAB PO SCH (08:12)
[2022-01-18] MEDS: CEROVITE ADV FORMULA TAB PO SCH (08:12)
[2022-01-18] MEDS: ISOSORBIDE MONO EXTENDED REL 60 MG TABCR PO SCH (08:12)
[2022-01-18] MEDS: DOCUSATE SODIUM 100 MG CAP PO SCH ×2 (08:13→22:05)
[2022-01-18] MEDS: HEPARIN SOD 5,000 UNIT/0.5 ML VIAL SQ SCH ×2 (08:13→22:04)
[2022-01-18] MEDS: ASCORBIC ACID 500 MG TAB PO SCH (08:14)
[2022-01-18] MEDS: SEVELAMER HCL 800 MG TABLET PO SCH ×3 (08:14→17:42)
--- NOTE | 2022-01-18 10:14 | Nephrology Progress Note ---
Date of Service January 18, 2022 Assessment & Plan (1) ESRD (end stage renal disease) on dialysis: (2) Anemia: (3) COVID-19: (4) Aortic stenosis: (5) Ischemic cardiomyopathy: (6) Pneumonia: Plan ESRD on HD MWF. admitted with volume overload and hypoxia, chest x-ray is concerning for pneumonia, currently on linezolid. Clinically otherwise stable no significant shortness of breath. L forearm AVF has been functioning well. Clearances have been at goal. Estimated dry weight 63 kg and currently she is at her dry weight and asymptomatic while lying flat in bed. -- and waiting for decision regarding need for home oxygen therapy -- continue on hemodialysis, plan for next dialysis tomorrow with UF to reach estimated dry weight as tolerated. Overall clinically does not seem to be volume overloaded. -- left arm nephrology precaution, dose medications for a GFR less than 10. -- Epogen 4000 units twice a week with HD -- continue on renal diet and 1 L fluid restriction -- continue Sevelamer as phosphate binder Will follow Admission and Anticipated Discharge Date Admission Date: January 14, 2022 Jason Palma was seen and examined this morning. She has been lying flat in bed and remain comfortable , no SOB, blood pressure and heart rate staying stable. No dizziness or lightheadedness. Appetite has been decent. Had 2 L UF yesterday, weight 63.1 kg this am. Review of Systems Review of Systems: Detailed review of system was done and otherwise unremarkable except mentioned above. Physical Exam Constitutional: WD/WN, vitals as above no acute distress Eyes: + anicteric sclerae ENMT: Ears: no hearing impairment Neck: normal visual inspection Respiratory: normal respiratory effort; no respiratory distress Auscultation: + diminished lung sounds Cardiovascular: RRR, no murmur, no edema Rate/Rhythm: regular rate and regular rhythm Heart Sounds: + murmur Extremities: no edema Skin: no rashes Neurologic: no focal motor deficits Psychiatric: Orientation: alert and oriented x 3 Results & Data ([facility]) Vital Signs (Past 12 Hours) Vital Signs Temp Pulse Pulse Pulse Pulse Resp BP 01/18/22 07:24 36.6 C 96 H 17 148/63 H 01/18/22 06:00 01/18/22 04:13 100 H 01/18/22 03:25 36.7 C 91 H 16 122/66 09/09/22 01:07 73 01/17/22 23:38 91 H 01/17/22 23:26 36.9 C 105 H 18 146/61 H 01/17/22 22:13 98 H Pulse Ox Pulse Ox O2 Del Method O2 Del Method O2 Del Method O2 Flow Rate FiO2 01/18/22 07:24 91 Room Air 01/18/22 06:00 Room Air 01/18/22 04:13 94 Room Air 0 21 01/18/22 03:25 90 Room Air 01/18/22 01:07 97 Room Air 0 21 01/17/22 23:38 01/17/22 23:26 88 L Room Air 01/17/22 22:13 95 Room Air 0 21 PG Care Time/CCT Total # of Minutes Spent Total Time Spent with Patient: Total time spent is greater than 50% in coordination of care (as documented) at patient's floor/unit and/or counseling patient: Coding Level of Care Code 36261 Subseq Hosp Care Lvl 3 Diagnoses ESRD (end stage renal disease) on dialysis N18.6; Z99.2 Anemia N18.6; D63.1; Z99.2 Anemia type: due to chronic kidney disease Chronic kidney disease stage: on chronic dialysis COVID-19 U07.1 Aortic stenosis I35.0 Ischemic cardiomyopathy I25.5 Pneumonia J18.9 (1) Anemia Anemia type: due to chronic kidney disease Chronic kidney disease stage: on chronic dialysis Qualified Code(s): N18.6 - End stage renal disease; D63.1 - Anemia in chronic kidney disease; Z99.2 - Dependence on renal dialysis
--- NOTE | 2022-01-18 15:46 | Pulmonology Progress Note ---
Date of Service January 18, 2022 Assessment & Plan (1) Acute dyspnea: Plan: Secondary to acute CHF. Patient followed by nephrology and scheduled for hemodialysis. No signs of bacterial pna. Agree with d/c abx. Chest x-ray from 01/16/2022 reviewed with findings consistent with CHF. (2) Pleural effusion: Plan: Previous thoracentesis from last month was benign and likely a transudate from CHF. She also had possible lung entrapment with her last thoracentesis. No role for further thoracentesis at this time as the patient is saturating well on 1-2 L oxygen. (3) Severe aortic stenosis: Plan: Cards note reviewed. Moderate aortic and mitral disease. Maintain euvolemia. (4) Hypoxia: Plan: Overnight pulse oximetry revealed significant hypoxemia likely secondary to patient's valvular heart disease. Cannot rule out sleep disordered breathing. Consider outpatient sleep study. Titrate oxygen to maintain sats above 89%. (5) Ischemic cardiomyopathy: Plan: Defer management to cardiology and primary team. Recommend optimizing volume status. (6) COVID-19: Plan: No active disease. (7) Lack of motivation: Plan: Patient not interested in participating in physical therapy. Her mobility is extremely limited due to her right [id number] amputation. Plan Overall prognosis poor given the patient's limited mobility issues, end-stage renal disease requiring hemodialysis and cardiac issues. Recommend palliative care consultation. Psychiatry consultation may also be considered given the patient's lack of desire to participate in physical therapy and depressive mood. Discussed with bedside nurse. No further recommendations from pulmonary at this time. We will sign off. Thanks for the consult. Admission and Anticipated Discharge Date Admission Date: January 14, 2022 Subjective Patient is feeling weak and anxious today. She refused physical therapy for the past 2 days. She denies any shortness of breath. Overnight pulse oximetry reviewed with significant desaturations on room air. Review of Systems Review of Systems: All systems reviewed & are unremarkable except as noted in HPI & below Physical Exam Physical Exam: Constitutional: Elderly appearing female no apparent distress. Nasal cannula in place. Eyes: Pupils are equal round and reactive to light. Conjunctivae are normal. Anicteric sclera. Ears nose, mouth and throat: Deferred. Neck: Trachea is midline. Visual inspection is normal. Respiratory: Diminished bilaterally. Crackles. Cardiovascular: Regular rate and rhythm. No murmurs. No edema. Gastrointestinal: Normal bowel sounds, soft, nontender and nondistended. No hepatosplenomegaly noted. Musculoskeletal: Right lower extremity amputation. Skin: No rashes, warm dry and intact. Neurologic: No obvious focal neurological deficits seen. Psychiatric: Alert and oriented x3 with a euthymic affect. Results & Data Results & Data ([facility]) Vital Signs (Past 12 Hours) Vital Signs Temp Pulse Pulse Pulse Resp BP Pulse Ox 01/18/22 15:16 110 H 01/18/22 11:27 36.7 C 61 18 167/69 H 97 01/18/22 11:11 91 H 01/18/22 08:10 01/18/22 07:24 36.6 C 96 H 17 148/63 H 91 01/18/22 06:00 01/18/22 04:13 100 H Pulse Ox O2 Del Method O2 Del Method O2 Del Method O2 Flow Rate O2 Flow Rate FiO2 01/18/22 15:16 01/18/22 11:27 Room Air 01/18/22 11:11 01/18/22 08:10 Nasal Cannula 1 01/18/22 07:24 Room Air 01/18/22 06:00 Room Air 01/18/22 04:13 94 Room Air 0 21 PG Care Time/CCT Total # of Minutes Spent Total Time Spent with Patient: Total time spent is greater than 50% in coordination of care (as documented) at patient's floor/unit and/or counseling patient: Coding Level of Care Code 76929 Subseq Hosp Care Lvl 2 Diagnoses Acute dyspnea R06.00 Pleural effusion J90 Severe aortic stenosis I35.0 Hypoxia R09.02 Ischemic cardiomyopathy I25.5 COVID-19 U07.1 Lack of motivation Z91.89
[2022-01-18] MEDS: ACETAMINOPHEN 500 MG TAB PO PRN (16:25)
--- NOTE | 2022-01-18 17:30 | Hospitalist Progress Note ---
Date of Service January 18, 2022 Assessment & Plan (1) Pneumonia: Plan: Continue Zosyn IV. MRSA nose swab performed on advice of pulmonology and Linezolid subsequently discontinued. Recommend continuing IV antibiotics while hospitalized given ESRD, recent COVID and hospitalization. Incentive spirometer currently on 1 liter nasal cannula possible discharge on 01/18 Plan for dialysis tomorrow. (2) Hypoxia: Plan: Pt usualy not on O2. No respiratory distress Wean O2 to aim O2 sats > 90% (3) COVID-19: Plan: Prior COVID-19 infection Previously positive on December 15, 2021 Discussed with infection control and no need for isolation (4) Pleural effusion associated with pulmonary infection: Plan: Recurrent pleural effusion with pulmonary infection/pneumonia- pulmonary signed off. (5) Anemia: Plan: Symptomatic anemia- Hemoglobin 8.3 on admission, with range 10.1-11.6. Appears stable on serial measurements Denies any blood loss for reason May be secondary to physiologic stress of illness No indication for transfusion at this time, but will watch serially (6) Elevated troponin: Plan: Elevated troponin/ischemic cardiomyopathy/CAD- Troponin 60.1 The patient will be admitted to telemetry for serial cardiac enzymes, serial EKG's, cardiac rhythm monitoring Suspected type II supply demand mismatch Continue hydralazine, isosorbide mononitrate, aspirin and amlodipine (7) Ischemic cardiomyopathy: Plan: See above (8) ESRD (end stage renal disease) on dialysis: Plan: Usually gets dialysis on Friday, Friday and Friday. Consult nephrology - appreciate dialysis management Continue sevelamer (9) Depression: Plan: Continue venlafaxine (10) Type 2 diabetes mellitus with insulin therapy: Plan: Continue insulin glargine 12 units subcu in the evening Place on Accu-Cheks before meals and at bedtime with NovoLog coverage per scale Glucose 119 -246 [01/15] (11) CAD (coronary artery disease): Plan: See above (12) Dyslipidemia: Plan: Continue atorvastatin 80 mg at bedtime Plan VTE Prophylaxis - heparin 5000 units SQ BID Diet - T2DM, renal dialysis Disposition - continued admission due to hypoxia Admission and Anticipated Discharge Date Admission Date: January 14, 2022 Subjective 81 yo female reports feeling well. She does state she is depressed and would be interested in seeing psych. Review of Systems Review of Systems: All systems reviewed & are unremarkable except as noted in HPI & below Physical Exam Constitutional: WD/WN, vitals as above Respiratory: normal respiratory effort, lungs clear to auscultation Cardiovascular: Rate/Rhythm: regular rate and regular rhythm Heart Sounds: + murmur (systolic) Extremities: no pedal edema Gastrointestinal (Abdomen): normal bowel sounds, soft, nontender, no hepatosplenomegaly Skin: no rashes, warm and dry Psychiatric: A+Ox3, euthymic affect Results & Data Results & Data ([facility]) Vital Signs (Past 12 Hours) Vital Signs Temp Pulse Pulse Resp BP Pulse Ox O2 Del Method 01/18/22 15:57 38.0 C H 96 H 19 144/70 H 92 Room Air 01/18/22 15:16 110 H 01/18/22 11:27 36.7 C 61 18 167/69 H 97 Room Air 01/18/22 11:11 91 H 01/18/22 08:10 Nasal Cannula 01/18/22 07:24 36.6 C 96 H 17 148/63 H 91 Room Air 01/18/22 06:00 O2 Del Method O2 Flow Rate 01/18/22 15:57 01/18/22 15:16 01/18/22 11:27 01/18/22 11:11 01/18/22 08:10 1 01/18/22 07:24 01/18/22 06:00 Room Air PG Care Time/CCT Total # of Minutes Spent Total Time Spent with Patient: Total time spent is greater than 50% in coordination of care (as documented) at patient's floor/unit and/or counseling patient: Coding Level of Care Code 52014 Subseq Hosp Care Lvl 3 Diagnoses Pneumonia J18.9 Hypoxia R09.02 COVID-19 U07.1 Pleural effusion associated with pulmonary infection J18.9; J91.8 Anemia N18.6; D63.1; Z99.2 Anemia type: due to chronic kidney disease Chronic kidney disease stage: on chronic dialysis Elevated troponin R77.8 Ischemic cardiomyopathy I25.5 ESRD (end stage renal disease) on dialysis N18.6; Z99.2 Depression F32.9 Type 2 diabetes mellitus with insulin therapy E11.9; Z79.4 CAD (coronary artery disease) I25.10 Dyslipidemia E78.5 Time Spent (min) 35 Comment updated daughter (1) Anemia Anemia type: due to chronic kidney disease Chronic kidney disease stage: on chronic dialysis Qualified Code(s): N18.6 - End stage renal disease; D63.1 - Anemia in chronic kidney disease; Z99.2 - Dependence on renal dialysis
[2022-01-18] MEDS: LANTUS PER UNIT CHARGE SQ SCH (21:57)
[2022-01-18] MEDS: ATORVASTATIN 40 MG TAB PO SCH (22:04)
[2022-01-19 06:36] LABS: Hematocrit (blood only) 28.3 % (34.1-44.9); Hemoglobin 7.9 g/dl (12.0-16.0); Mean Corpuscular Hemoglobin 24.3 pg (25.0-34.0); Mean Corpuscular Hgb Conc 27.9 g/dL (32.0-36.0); Mean Corpuscular Volume 87.1 fL (80.0-100.0); Mean Platelet Volume 9.1 fL (9.4-12.3); Platelet Count 276 K/uL (130-400); RDW Coefficient of Variation 20.6 % (11.5-14.5); RDW Standard Deviation 64.2 fL (36.4-46.3); Red Blood Count 3.25 M/uL (3.93-5.22); White Blood Count 12.05 K/ul (4.8-10.8)
[2022-01-19 07:15] LABS: BUN Creatinine Ratio 10.2 (10-20); C Reactive Protein 13.26 mg/dl (0-0.5); Calcium 9.8 mg/dl (8.5-10.1); Creatinine Clr Calc Pharmacy 12.8 ml/min; Est GFR (African American) 14.5 ml/min; Est GFR (Non-African American) 12.5 ml/min; Potassium 4.2 mmol/L (3.5-5.1)
[2022-01-19] MEDS: SEVELAMER HCL 800 MG TABLET PO SCH ×3 (07:53→17:27)
[2022-01-19] MEDS: INSULIN ASPART PER UNIT SC SCH ×4 (09:08→20:32)
[2022-01-19] MEDS: amLODIPine BESYLATE 5 MG TAB PO SCH ×2 (09:18→20:07)
[2022-01-19] MEDS: hydrALAZINE TAB 50 MG TAB PO SCH ×3 (09:19→20:07)
[2022-01-19] MEDS: DOCUSATE SODIUM 100 MG CAP PO SCH ×2 (09:19→20:06)
[2022-01-19] MEDS: CALCIUM 600MG + VIT D 400 IU TAB PO SCH (09:22)
[2022-01-19] MEDS: ASPIRIN 81 MG ECTAB PO SCH (09:22)
[2022-01-19] MEDS: ASCORBIC ACID 500 MG TAB PO SCH (09:22)
[2022-01-19] MEDS: HEPARIN SOD 5,000 UNIT/0.5 ML VIAL SQ SCH ×2 (09:23→20:06)
[2022-01-19] MEDS: CHOLECALCIFEROL 1,000 UNITS 25 MCG TAB PO SCH ×2 (09:23→20:07)
[2022-01-19] MEDS: ISOSORBIDE MONO EXTENDED REL 60 MG TABCR PO SCH (09:24)
[2022-01-19] MEDS: MULTIVITAMIN TAB PO SCH (09:24)
[2022-01-19] MEDS: CEROVITE ADV FORMULA TAB PO SCH (09:25)
[2022-01-19] MEDS ORDERED: EPOETIN ALFA 10,000 UNITS/ML VIAL IV ONE (11:00)
[2022-01-19] MEDS ORDERED: EPOETIN ALFA 10,000 UNITS in SYRINGE 0 ML IV ONE (11:00)
--- NOTE | 2022-01-19 11:07 | Hospitalist Progress Note ---
Date of Service January 19, 2022 Assessment & Plan (1) Pneumonia: Plan: Continue Zosyn IV. MRSA nose swab performed on advice of pulmonology and Linezolid subsequently discontinued. Recommend continuing IV antibiotics while hospitalized given ESRD, recent COVID and hospitalization. Incentive spirometer currently on 1 liter nasal cannula possible discharge on 01/19 remove 3 liters on dialysis. (2) Hypoxia: Plan: Pt usualy not on O2. No respiratory distress Wean O2 to aim O2 sats > 90% (3) COVID-19: Plan: Prior COVID-19 infection Previously positive on December 15, 2021 Discussed with infection control and no need for isolation (4) Pleural effusion associated with pulmonary infection: Plan: Recurrent pleural effusion with pulmonary infection/pneumonia- pulmonary signed off. (5) Anemia: Plan: Symptomatic anemia- Hemoglobin 8.3 on admission, with range 10.1-11.6. Appears stable on serial measurements Denies any blood loss for reason May be secondary to physiologic stress of illness No indication for transfusion at this time, but will watch serially (6) Elevated troponin: Plan: Elevated troponin/ischemic cardiomyopathy/CAD- Troponin 60.1 The patient will be admitted to telemetry for serial cardiac enzymes, serial EKG's, cardiac rhythm monitoring Suspected type II supply demand mismatch Continue hydralazine, isosorbide mononitrate, aspirin and amlodipine (7) Ischemic cardiomyopathy: Plan: See above (8) ESRD (end stage renal disease) on dialysis: Plan: Usually gets dialysis on Friday, Friday and Friday. Consult nephrology - appreciate dialysis management Continue sevelamer (9) Depression: Plan: Continue venlafaxine (10) Type 2 diabetes mellitus with insulin therapy: Plan: Continue insulin glargine 12 units subcu in the evening Place on Accu-Cheks before meals and at bedtime with NovoLog coverage per scale Glucose 119 -246 [01/15] (11) CAD (coronary artery disease): Plan: See above (12) Dyslipidemia: Plan: Continue atorvastatin 80 mg at bedtime Plan VTE Prophylaxis - heparin 5000 units SQ BID Diet - T2DM, renal dialysis Disposition - continued admission due to hypoxia Admission and Anticipated Discharge Date Admission Date: January 14, 2022 Subjective Patient reports no new symptoms. Review of Systems Review of Systems: All systems reviewed & are unremarkable except as noted in HPI & below Physical Exam Constitutional: WD/WN, vitals as above Respiratory: normal respiratory effort, lungs clear to auscultation Cardiovascular: Rate/Rhythm: regular rate and regular rhythm Heart Sounds: + murmur (systolic) Extremities: no pedal edema Gastrointestinal (Abdomen): normal bowel sounds, soft, nontender, no hepatosplenomegaly Skin: no rashes, warm and dry Psychiatric: A+Ox3, euthymic affect Results & Data Results & Data ([facility]) Vital Signs (Past 12 Hours) Vital Signs Temp Pulse Pulse Pulse Resp BP BP 01/19/22 10:30 62 134/58 L 01/19/22 10:00 66 128/71 01/19/22 09:30 36.7 C 96 H 01/19/22 08:13 37.0 C 85 18 104/63 01/19/22 07:56 01/19/22 07:37 81 01/19/22 03:24 36.7 C 79 18 133/86 01/18/22 23:27 36.6 C 95 H 18 164/77 H Pulse Ox O2 Del Method O2 Flow Rate 01/19/22 10:30 01/19/22 10:00 01/19/22 09:30 01/19/22 08:13 95 Nasal Cannula 1.0 01/19/22 07:56 Nasal Cannula 1 01/19/22 07:37 01/19/22 03:24 94 Nasal Cannula 2 01/18/22 23:27 98 Nasal Cannula 2 PG Care Time/CCT Total # of Minutes Spent Total Time Spent with Patient: Total time spent is greater than 50% in coordination of care (as documented) at patient's floor/unit and/or counseling patient: Coding Level of Care Code 06953 Subseq Hosp Care Lvl 2 Diagnoses Pneumonia J18.9 Hypoxia R09.02 COVID-19 U07.1 Pleural effusion associated with pulmonary infection J18.9; J91.8 Anemia N18.6; D63.1; Z99.2 Anemia type: due to chronic kidney disease Chronic kidney disease stage: on chronic dialysis Elevated troponin R77.8 Ischemic cardiomyopathy I25.5 ESRD (end stage renal disease) on dialysis N18.6; Z99.2 Depression F32.9 Type 2 diabetes mellitus with insulin therapy E11.9; Z79.4 CAD (coronary artery disease) I25.10 Dyslipidemia E78.5 Time Spent (min) 25 (1) Anemia Anemia type: due to chronic kidney disease Chronic kidney disease stage: on chronic dialysis Qualified Code(s): N18.6 - End stage renal disease; D63.1 - Anemia in chronic kidney disease; Z99.2 - Dependence on renal dialysis
--- NOTE | 2022-01-19 11:41 | Nephrology Progress Note ---
Date of Service January 19, 2022 Assessment & Plan (1) ESRD (end stage renal disease) on dialysis: Plan: * HD MWF as outpatient at [facility] (3.5 hrs, EDW 63 kg) * Patient had transitioned to TTS schedule during this hospitalization. If discharge is anticipated, please have patient resume MWF schedule in [place] (2) Chronic systolic CHF (congestive heart failure): Plan: * Echocardiogram 12/31 w/ moderate to severe and [facility] notes that valvular disease is likely moderate and not significantly contributing to CHF * Patient appears to have lost a significant amount of muscle mass over the last 12 months. Suspect she will need EDW adjusted down * 01/18/22 CXR with persistent CHF. Attempting 4 L UF on HD today. Will order follow up CXR in am (3) Anemia: Plan: * Will provide EMELINA w/ HD today (4) COVID-19: Plan: * Persistently + since 12/15/21 Admission and Anticipated Discharge Date Admission Date: January 14, 2022 Subjective Ms. Bolivar was evaluated in her hospital room this morning. She reports that she is now breathing comfortably on 1 L/min NC. She voices no medical concerns. Review of Systems Constitutional: no fever Eyes: no problem reported Ear, Nose, Mouth, Throat: no problem reported Respiratory: no cough and no dyspnea Cardiovascular: no chest pain Gastrointestinal: no abdominal pain, no nausea, no vomiting and no diarrhea/loose stools Physical Exam Constitutional: + ill appearing Eyes: PERRL ENMT: external ear and nose normal, oropharynx normal Neck: trachea midline, no thyromegaly Respiratory: normal respiratory effort, lungs clear to auscultation Cardiovascular: Rate/Rhythm: + irregularly irregular Extremities: no edema Gastrointestinal (Abdomen): Inspection/Auscultation: normal bowel sounds Percussion/Palpation: abdomen soft; abdomen nontender Results & Data ([facility]) Vital Signs (Past 12 Hours) Vital Signs Temp Pulse Pulse Pulse Resp BP BP 01/19/22 11:00 53 L 136/59 L 01/19/22 10:30 62 134/58 L 01/19/22 10:00 66 128/71 01/19/22 09:30 36.7 C 96 H 01/19/22 08:13 37.0 C 85 18 104/63 01/19/22 07:56 01/19/22 07:37 81 09/10/22 03:24 36.7 C 79 18 133/86 Pulse Ox O2 Del Method O2 Flow Rate 01/19/22 11:00 01/19/22 10:30 01/19/22 10:00 01/19/22 09:30 01/19/22 08:13 95 Nasal Cannula 1.0 01/19/22 07:56 Nasal Cannula 1 01/19/22 07:37 01/19/22 03:24 94 Nasal Cannula 2 Laboratory Results Laboratory Tests 01/19/22 01/19/22 05:55 05:55 WBC 12.05 H Hgb 7.9 L Hct 28.3 L Plt Count 276 Sodium 134 L Potassium 4.2 Chloride 96 L Carbon Dioxide 30 BUN 34 H Creatinine 3.33 H D Glucose 115 H Laboratory Tests 01/15/22 05:36 Transferrin % Sat 20 Ferritin 2172.0 H PG Care Time/CCT Total # of Minutes Spent Total Time Spent with Patient: Total time spent is greater than 50% in coordination of care (as documented) at patient's floor/unit and/or counseling patient: Coding Level of Care Code 10876 Subseq Hosp Care Lvl 3 Diagnoses ESRD (end stage renal disease) on dialysis N18.6; Z99.2 Chronic systolic CHF (congestive heart failure) I50.22 Anemia N18.6; D63.1; Z99.2 Anemia type: due to chronic kidney disease Chronic kidney disease stage: on chronic dialysis COVID-19 U07.1 (1) Anemia Anemia type: due to chronic kidney disease Chronic kidney disease stage: on chronic dialysis Qualified Code(s): N18.6 - End stage renal disease; D63.1 - Anemia in chronic kidney disease; Z99.2 - Dependence on renal dialysis
--- NOTE | 2022-01-19 14:34 | Communication Note ---
Date of Service: January 19, 2022 consult received/reviewed. Attempted to see patient on rounds but she was in dialysis. On Effexor XR 150 mg for ANILA and depression by Dr. Faulkner at [facility]. Last note from 09/30 on file. Was screened for suicide risk by liaison on 01/14, admit to fleeting SI without any intent or plan, mainly due to frustration of her medical issues. Patient previously had declined any additional services/med changes so will clarify her needs. Typically Effexor XR doses are decreased 25-50% in patients with ESRD so I would not typically titrate. Full consult to follow if patient need/agreeable.
[2022-01-19] MEDS: ACETAMINOPHEN 500 MG TAB PO PRN ×2 (15:08→22:42)
--- NOTE | 2022-01-19 15:29 | XRay Report ---
XR chest 1V portable CLINICAL HISTORY: Congestive heart failure. COMPARISON STUDY: Chest CT December 18, 2021. Chest radiograph January 16, 2022. FINDINGS: A lucency at the right lung base is again noted. This may reflect loculated pleural gas. Th is is similar to prior exam. There is no left pneumothorax. Pulmonary edema has moderately improved s halle prior exam. Residual edema is noted with small to moderate right and small left pleural effusion s. Right basilar opacity has improved. Cardiomediastinal silhouette is stable. IMPRESSION: 1. Persistent, but moderately improved, pulmonary edema. 2. Small to moderate right and small left pleural effusions. 3. Persistent right basilar hydropneumothorax, similar to prior exam. ACT 112: Negative or not required by law. Electronically signed by: Emigdio Ibrahim M.D. 01/19/2022 3:27 PM
[2022-01-19] MEDS: ATORVASTATIN 40 MG TAB PO SCH (20:07)
[2022-01-19] MEDS: LANTUS PER UNIT CHARGE SQ SCH (20:36)
[2022-01-20 06:49] LABS: Hemoglobin 8.6 g/dl (12.0-16.0); Mean Corpuscular Hemoglobin 24.6 pg (25.0-34.0); Mean Corpuscular Hgb Conc 27.7 g/dL (32.0-36.0); Mean Corpuscular Volume 88.6 fL (80.0-100.0); Platelet Count 273 K/uL (130-400); RDW Coefficient of Variation 21.2 % (11.5-14.5); RDW Standard Deviation 66.6 fL (36.4-46.3); White Blood Count 9.51 K/ul (4.8-10.8)
[2022-01-20 06:53] LABS: BUN Creatinine Ratio 10.6 (10-20); Calcium 9.6 mg/dl (8.5-10.1); Creatinine Clr Calc Pharmacy 19.6 ml/min; Est GFR (African American) 24.2 ml/min; Est GFR (Non-African American) 20.9 ml/min; Potassium 3.8 mmol/L (3.5-5.1)
[2022-01-20] MEDS: SEVELAMER HCL 800 MG TABLET PO SCH ×2 (07:54→11:56)
[2022-01-20] MEDS: INSULIN ASPART PER UNIT SC SCH ×2 (08:34→12:28)
[2022-01-20] MEDS: DOCUSATE SODIUM 100 MG CAP PO SCH (08:38)
[2022-01-20] MEDS: hydrALAZINE TAB 50 MG TAB PO SCH ×2 (08:41→15:25)
[2022-01-20] MEDS: HEPARIN SOD 5,000 UNIT/0.5 ML VIAL SQ SCH (08:41)
[2022-01-20] MEDS: CALCIUM 600MG + VIT D 400 IU TAB PO SCH (08:41)
[2022-01-20] MEDS: ASCORBIC ACID 500 MG TAB PO SCH (08:41)
[2022-01-20] MEDS: amLODIPine BESYLATE 5 MG TAB PO SCH (08:41)
[2022-01-20] MEDS: CHOLECALCIFEROL 1,000 UNITS 25 MCG TAB PO SCH (08:41)
[2022-01-20] MEDS: ASPIRIN 81 MG ECTAB PO SCH (08:41)
[2022-01-20] MEDS: CEROVITE ADV FORMULA TAB PO SCH (08:42)
[2022-01-20] MEDS: MULTIVITAMIN TAB PO SCH (08:42)
[2022-01-20] MEDS: ISOSORBIDE MONO EXTENDED REL 60 MG TABCR PO SCH (08:42)
--- NOTE | 2022-01-20 09:25 | Nephrology Progress Note ---
Date of Service January 20, 2022 Assessment & Plan (1) ESRD (end stage renal disease) on dialysis: Plan: * Volume status improved. No acute indication for HD today. * If discharge is anticipated, please have patient resume MWF schedule in [facility] * Review of EMR shows that patient has been losing muscle mass/weight. 12/31 hospitalization records an EDW of 70 kg. She was admitted w/ CHF at that time and EDW was reduced to 63 kg. This hospitalization Ms. Bolivar presented w/ weight 67 kg and recurrent CHF. She is visibly thinner and losing muscle mass. Serum albumin has dropped from 3.3 to 2.7. Ms. Bolivar reports that her diet is limited due to HD and full dental extraction. She has been living off predominantly soup at home. I have encouraged her to meet w/ the HD dietitian and to take Nepro or other high caloric/high protein supplement at least twice daily. Message has been left at [facility] HD unit this am advising dietary evaluation and reduce EDW to 60 kg. (2) Chronic systolic CHF (congestive heart failure): Plan: * Echocardiogram 12/31 w/ moderate to severe and MR. Cardiology notes that valvular disease is likely moderate and not significantly contributing to CHF * Patient appears to have lost a significant amount of muscle mass over the last 12 months. EDW has been reduced to 60 kg this hospitalization * 01/20/22 CXR shows marked improvement in CHF and only very small bilateral effusions (3) Anemia: Plan: * Epogen 10,000 units IV provided w/ HD 01/19/22 (4) COVID-19: Plan: * Persistently + since 12/15/21 Admission and Anticipated Discharge Date Admission Date: January 14, 2022 Subjective Ms. Bolivar was evaluated in her hospital room this morning. She was dialyzed yesterday for 3.5 L volume removal. She is now breathing comfortably flat in bed on RA. Review of Systems Constitutional: no fever Eyes: no problem reported Ear, Nose, Mouth, Throat: no problem reported Respiratory: no cough and no dyspnea Cardiovascular: no chest pain Gastrointestinal: no abdominal pain, no nausea, no vomiting and no diarrhea/loose stools Physical Exam Constitutional: + ill appearing Eyes: PERRL ENMT: external ear and nose normal, oropharynx normal Neck: trachea midline, no thyromegaly Respiratory: normal respiratory effort, lungs clear to auscultation Cardiovascular: Rate/Rhythm: + irregularly irregular Extremities: no edema Gastrointestinal (Abdomen): Inspection/Auscultation: normal bowel sounds Percussion/Palpation: abdomen soft; abdomen nontender Results & Data ([facility]) Vital Signs (Past 12 Hours) Vital Signs Temp Pulse Pulse Pulse Resp BP Pulse Ox 01/20/22 07:59 36.4 C L 87 16 158/71 H 93 01/20/22 07:56 01/20/22 07:35 81 01/20/22 03:56 36.5 C 84 17 132/67 93 01/19/22 22:46 97 H 01/19/22 22:40 36.7 C 91 H 18 130/64 92 O2 Del Method 01/20/22 07:59 Room Air 01/20/22 07:56 Room Air 01/20/22 07:35 01/20/22 03:56 Room Air 01/19/22 22:46 01/19/22 22:40 Room Air Laboratory Results Laboratory Tests 01/15/22 01/20/22 01/20/22 05:36 05:44 05:44 WBC 9.51 Hgb 8.6 L Hct 31.0 L Plt Count 273 Sodium 136 Potassium 3.8 Chloride 99 Carbon Dioxide 29 BUN 23 Creatinine 2.18 H D Glucose 132 H Calcium 9.6 Ferritin 2172.0 H Diagnostic Findings 01/19/22 CXR: 1. Persistent, but moderately improved, pulmonary edema. 2. Small to moderate right and small left pleural effusions. 3. Persistent right basilar hydropneumothorax, similar to prior exam. PG Care Time/CCT Total # of Minutes Spent Total Time Spent with Patient: Total time spent is greater than 50% in coordination of care (as documented) at patient's floor/unit and/or counseling patient: Coding Level of Care Code 75574 Subseq Hosp Care Lvl 3 Diagnoses ESRD (end stage renal disease) on dialysis N18.6; Z99.2 Chronic systolic CHF (congestive heart failure) I50.22 Anemia N18.6; D63.1; Z99.2 Anemia type: due to chronic kidney disease Chronic kidney disease stage: on chronic dialysis COVID-19 U07.1 (1) Anemia Anemia type: due to chronic kidney disease Chronic kidney disease stage: on chronic dialysis Qualified Code(s): N18.6 - End stage renal disease; D63.1 - Anemia in chronic kidney disease; Z99.2 - Dependence on renal dialysis
--- NOTE | 2022-01-20 14:07 | Discharge Summary ---
Date of Service January 20, 2022 Admission HPI Per Admitting Provider The patient is a 81-year-old female with a past medical history including pneumonia, pleural effusion, hydropneumothorax, aortic stenosis, ischemic cardiomyopathy, chronic systolic CHF, right AKA, Graves' disease, ESRD on HD, nonproliferative diabetic retinopathy, diabetic nephropathy, diabetic hypoglycemia, cardiomyopathy, pulmonary hypertension, CAD, moderate calcific aortic stenosis, dyslipidemia, hypertension and anemia. Patient was most recently admitted to the hospital from 12/11-12/21/2021, and gotten completely back to baseline health. She does go to dialysis Friday, Friday, Friday, and did have her routine dialysis 2 days ago on Friday. Assessment in the emergency department include the following abnormal results: Troponin 60.1, BNP 1824, albumin 2.7, hemoglobin 8.3, hematocrit 29.0, WBC 13.45 . Patient was COVID-19 positive Chest x-ray showed extensive infiltrate right middle and right lower lobes Principal Diagnosis pneumonia Discharge Exam Constitutional WD/WN, vitals as above Respiratory normal respiratory effort, lungs clear to auscultation Cardiovascular Rate/Rhythm: regular rate and regular rhythm Heart Sounds: + murmur (systolic) Extremities: no pedal edema Gastrointestinal (Abdomen) normal bowel sounds, soft, nontender, no hepatosplenomegaly Skin no rashes, warm and dry Psychiatric A+Ox3, euthymic affect Discharge Data Allergies Allergy/AdvReac Type Severity Reaction Status Date / Time codeine AdvReac Mild DOES NOT Verified 01/14/22 01:34 [address] THE [address] IT MAKES HER FEEL. Consultations 01/14/22 03:18 ED Decision to Admit Stat 01/14/22 05:40 Consult Nephrology Routine 01/16/22 10:50 Consult Pulmonology Routine 01/16/22 11:01 Consult Cardiology Routine 01/19/22 09:10 Consult Psychiatry Routine Hospital Course (1) Pneumonia: Continue Zosyn IV. MRSA nose swab performed on advice of pulmonology and Linezolid subsequently discontinued. Recommend continuing IV antibiotics while hospitalized given ESRD, recent COVID and hospitalization. Incentive spirometer currently on room air. remove 3 liters on dialysis. (2) Hypoxia: Pt usualy not on O2. No respiratory distress Wean O2 to aim O2 sats > 90% (3) COVID-19: Prior COVID-19 infection Previously positive on December 15, 2021 Discussed with infection control and no need for isolation (4) Pleural effusion associated with pulmonary infection: Recurrent pleural effusion with pulmonary infection/pneumonia- pulmonary signed off. (5) Anemia: Symptomatic anemia- Hemoglobin 8.3 on admission, with range 10.1-11.6. Appears stable on serial measurements Denies any blood loss for reason May be secondary to physiologic stress of illness No indication for transfusion at this time Ok for discharge, will need repeat blood work in a week or two. (6) Elevated troponin: Demand ischemia Elevated troponin/ischemic cardiomyopathy/CAD- Troponin 60.1 The patient will be admitted to telemetry for serial cardiac enzymes, serial EKG's, cardiac rhythm monitoring Suspected type II supply demand mismatch Continue hydralazine, isosorbide mononitrate, aspirin and amlodipine (7) Ischemic cardiomyopathy: See above (8) ESRD (end stage renal disease) on dialysis: Usually gets dialysis on Friday, Friday and Friday. Consult nephrology - appreciate dialysis management Continue sevelamer (9) Depression: Continue venlafaxine (10) Type 2 diabetes mellitus with insulin therapy: Continue insulin glargine 12 units subcu in the evening Place on Accu-Cheks before meals and at bedtime with NovoLog coverage per scale (11) CAD (coronary artery disease): See above (12) Dyslipidemia: Continue atorvastatin 80 mg at bedtime Plan VTE Prophylaxis - heparin 5000 units SQ BID Diet - T2DM, renal dialysis Total Time Total Time Spent Total Time Spent (In Minutes): 35 Discharge Plan Discharge Items Patient Disposition: Home - Home Health Services Reason For Visit: PNEUMONIA, ANEMIA, COVID-19 Discharge Diagnosis: Pneumonia Activity: Resume your previous activity Non-emergency contact: Primary Care Provider Call non-emergency contact if: you have any medication questions Follow-up/Referrals: [facility] [Outside] - 03/21/22 2:40 pm (Dr. Faulkner) David Lopez III, CRNP [Primary Care Provider] - (will need to call provider office fo appointment [phone]) Diet: Carb Consistent or DM2 and Dialysis Renal Fluids: 1500ml (6 cups) Addtl Attending Provider Instructions: You have been hospitalized for an acute medical problem. During your stay at [facility], we have made an effort to correct the problem that brought you to the hospital while keeping you as comfortable as possible. Medications were used to bring your condition under control and your discharge instructions will include directions for any medications you should take after leaving the hospital. Please make sure you see your Primary Care Provider as part of your follow up plan. Due to your weight loss, recommend that you meet with the HD engineering director.Also recommend to take Nepro or any other high caloric/high protein supplement at le ast twice daily. You can ask the HD center if they can provide the nepro for you. If not, please call the hospital and ask for Dr. Anaya. And I can talk with the nutrition team here to help get nepro for you. Recommend close followup with PCP in 1-2 weeks. Pending Studies at Discharge: No Stand-Alone Forms: [facility] Smoking Cessation Medications and DC Order Prescriptions: Continued venlafaxine 150 mg capsule,extended release 24hr 150 mg PO QAM ascorbic acid (vitamin C) 500 mg tablet 500 mg PO QAM insulin aspart U-100 [Novolog Flexpen U-100 Insulin] 100 unit/mL (3 mL) insulin pen 7 unit subcut TIDM Qty: 30 3RF Label Comments: pt cant remember if she had insulin today Rx Instructions: Plus sliding scale 3-4 U at HS if > 250 (DME) pen needle, diabetic [BD Ultra-Fine [place] Pen Needle] 32 gauge x 5/32" needle See Rx Instructions .ROUTE .MEDSUPPLY Qty: 400 3RF Rx Instructions: use 4 needles daily aspirin [Adult Aspirin Regimen] 81 mg tablet,delayed release (DR/EC) 81 mg PO DAILY Qty: 30 11RF insulin glargine [Lantus Solostar U-100 Insulin] 100 unit/mL (3 mL) insulin pen 12 unit subcut QPM Qty: 15 1RF polyethylene glycol 3350 17 gram/dose powder 17 g PO DAILY PRN (Reason: Constipation) Qty: 510 11RF hydralazine 50 mg tablet 100 mg PO TID Qty: 90 0RF isosorbide mononitrate 120 mg tablet extended release 24 hr 120 mg PO QAM Qty: 90 3RF Label Comments: "if she wrote it down I took it" atorvastatin 80 mg tablet 80 mg PO HS Qty: 90 3RF Label Comments: Has been out- doesn't remember when betamethasone dipropionate 0.05 % cream 1 applic topical DIRECTED PRN (Reason: Skin Irritation) cholecalciferol (vitamin D3) 25 mcg (1,000 unit) capsule 50 mcg PO BID Calcium 600 with Vitamin D3 600 mg(1,500mg) -400 unit Tablet,Chewable 2 tab PO QAM PreserVision AREDS [phone]-en-popd Capsule 1 cap PO BID amlodipine 5 mg tablet 5 mg PO BID Rx Instructions: TAKE 1 TABLET BY MOUTH TWICE DAILY sevelamer HCl 800 mg Tablet 800 mg PO TID Rx Instructions: must administer with a meal/food acetaminophen [Tylenol Extra Strength] 500 mg Tablet 1,000 mg PO Q8H PRN (Reason: Pain) docusate sodium 100 mg Capsule 100 mg PO BID menthol-zinc oxide [Calmoseptine] 0.44-20.6 % ointment 1 applic TOPICAL TID PRN (Reason: NEEDED) multivitamin Tablet 1 tab PO QAM Discharge Orders: Discharge Order (Routine); Ordered 01/20/22 Ordered By: Jose Anaya Admission Data Admit Date/Time: 01/14/22 04:02 Attending Provider: Jose Anaya Admit Provider: Nimesh Demarco Primary Care Provider: David Lopez III Other Providers: Nimesh Demarco ; Melinda Shipman ; [facility] ; Hernandez Boogie ; Madan Quiles ; Sekou Davidson ; Mark Stephens ; [place] ; David Watkins ; Jorge Hamm Jr ; Patrice Berrios ; Miri Elizondo ; Christianne Lorenzo ; Luis Diaz ; Aamir Travis ; Davon Longoria ; Ivelisse Banerjee ; Marsha Minor ; Malick Pichardo ; Jonny Engel ; Zohaib Ham ; [place] [facility] ; Yun Meléndez ; Ronel Zimmerman ; Merlyn Del Toro Other Interventions: Discharge Summary Assessment (RN) Last Done: 09/11/22 14:22 Coding Level of Care Code D/C DAY MANAGEMENT >30 MINS Diagnoses Pneumonia J18.9 Hypoxia R09.02 COVID-19 U07.1 Pleural effusion associated with pulmonary infection J18.9; J91.8 Anemia N18.6; D63.1; Z99.2 Anemia type: due to chronic kidney disease Chronic kidney disease stage: on chronic dialysis Elevated troponin R77.8 Ischemic cardiomyopathy I25.5 ESRD (end stage renal disease) on dialysis N18.6; Z99.2 Depression F32.9 Type 2 diabetes mellitus with insulin therapy E11.9; Z79.4 CAD (coronary artery disease) I25.10 Dyslipidemia E78.5
--- NOTE | 2022-01-20 15:20 | Psychiatric Consultation ---
Date of Consultation January 20, 2022 Psych History Chief Complaint see communication note dated 01/19/22. Dr. Jea-nBaptiste confirmed patient being discharged today. Patient has been increasingly more positive/spontaneous in anticipation of discharge and plans to follow up with Dr. Faulkner as is not interested in additional med changes at this time. Allergies Allergy/AdvReac Type Severity Reaction Status Date / Time codeine AdvReac Mild DOES NOT Verified 01/14/22 01:34 LIKE THE WAY IT MAKES HER FEEL. Home Medications Medication Instructions Recorded Confirmed Type ascorbic acid (vitamin C) 500 mg 500 mg PO QAM 12/10/18 01/14/22 History tablet venlafaxine 150 mg 150 mg PO QAM 12/10/18 01/14/22 History capsule,extended release 24 hr calcium carbonate 600 mg-vitamin 2 tab PO QAM 03/09/20 01/14/22 History D3 10 mcg (400 unit) chewable tablet (Calcium 600 with Vitamin D3) cholecalciferol (vitamin D3) 25 50 mcg PO BID 12/27/20 01/14/22 History mcg (1,000 unit) capsule vitamins A,C,W-ubne-hwctts 14,320 1 cap PO BID 06/14/21 01/14/22 History unit-226 mg-200 unit capsule (PreserVision AREDS) insulin aspart U-100 100 unit/mL 7 unit (0.07 mL) subcut TIDM #30 mL 06/22/21 01/14/22 Rx (3 mL) subcutaneous pen (Novolog Flexpen U-100 Insulin aspart) pen needle, diabetic 32 gauge x #400 ea 09/25/21 01/03/22 Rx 5/32" (BD Ultra-Fine [place] Pen Needle) betamethasone dipropionate 0.05 % 1 applic topical DIRECTED PRN 11/20/21 01/14/22 History topical cream Skin Irritation acetaminophen 500 mg tablet 1,000 mg PO Q8H PRN Pain 12/11/21 01/14/22 History (Tylenol Extra Strength) amlodipine 5 mg tablet 5 mg PO BID 12/11/21 01/14/22 History docusate sodium 100 mg capsule 100 mg PO BID 12/11/21 01/14/22 History menthol 0.44 %-zinc oxide 20.6 % 1 applic topical TID PRN NEEDED 12/11/21 01/14/22 History topical ointment (Calmoseptine) sevelamer HCl 800 mg tablet 800 mg PO TID 12/11/21 01/14/22 History atorvastatin 80 mg tablet 80 mg PO HS #90 tabs 01/03/22 01/14/22 Rx hydralazine 50 mg tablet 100 mg PO TID #90 tabs 01/03/22 01/14/22 Rx isosorbide mononitrate 120 mg 120 mg PO QAM #90 tabs 01/03/22 01/14/22 Rx tablet,extended release 24 hr aspirin 81 mg tablet,delayed 81 mg PO DAILY #30 tabs 01/04/22 01/14/22 Rx release (Adult Aspirin Regimen) insulin glargine 100 unit/mL (3 12 unit (0.12 mL) subcut QPM #15 mL 01/04/22 01/14/22 Rx mL) subcutaneous pen (Lantus Solostar U-100 Insulin) polyethylene glycol 3350 17 17 g PO DAILY PRN Constipation 01/04/22 01/14/22 Rx gram/dose oral powder #510 grams multivitamin 1 tab PO QAM 01/14/22 01/14/22 History Personal History Highest Grade Completed: High School Graduate Beliefs That Will Affect Care: None Patient History Medical History (Updated 01/18/22 @ 15:44 by Hernandez Boogie MD) Anemia AV fistula LEFT CAD (coronary artery disease) Carotid artery disease less than 50% ICA stenosis per 08/2016 carotid duplex CHF (congestive heart failure) Chronic gastroesophageal reflux disease Chronic kidney disease on HD Dehiscence of wound Depression Diabetic peripheral neuropathy associated with type 2 diabetes mellitus Dialysis patient 3XWK (M/W/F) [facility]>FOLLOWED BY DR. HATHAWAY Dyslipidemia Gallstones Generalized osteoarthritis of multiple sites Graves disease H/O malignant neoplasm of uterine body Hiatal hernia History of kidney stones Hydropneumothorax Hypertension Irregular heart beat metoprolol for this per pt Lab test negative for COVID-19 virus Lack of motivation Macular degeneration Moderate calcific aortic stenosis Multinodular goiter (nontoxic) Multiple thyroid nodules Obesity Osteopenia Patella fracture Secondary hyperparathyroidism Sepsis Severe aortic stenosis Sleep apnea No device Type 2 diabetes mellitus with insulin therapy Surgical History H/O abdominoplasty H/O basal cell carcinoma excision H/O shoulder surgery Right History of appendectomy History of cataract surgery R/L History of colonoscopy History of esophagogastroduodenoscopy (EGD) History of hip surgery Closed intertrochanteric fracture of left femur 04/10/2021: 02/16/2021: Grade 4 view, MAC#3, ETT#7.0. No issues per anesthesia postop progress note. History of open reduction and internal fixation (ORIF) procedure right patella 05/18/2021: LMA#4 atraumatic + PNB. No issues per anesthesia postop progress note. History of tonsillectomy History of tooth extraction S/P complete hysterectomy Status post knee surgery 05/31/21 Dr. Heriberto Ly- Incision and Debridement Right Knee, Right Open Reduction Internal Fixation Patella, Hardware Removal(Right) Family History Father Diabetes Lung cancer Family history of diabetes mellitus Mother , in a home fire Hypertension Family history of diabetes mellitus Daughter Family history of diabetes mellitus Son Family history of diabetes mellitus Other No family history of adverse response to anesthesia Denies family history of Ovarian cancer Prostate cancer Myocardial infarction Breast cancer Colorectal cancer Social History Smoking Status: Former smoker Tobacco Type: Cigarettes Second Hand Exposure: No; Hx Alcohol Use: Yes Alcohol type: hard liquor Hx Substance Use: No Preferred Language: Tamazight Communication Ability: Effective Visual Impairment: No Limitations Hearing Ability: Normal Watermelon Inspector Required: No Beliefs That Will Affect Care: None marital status: / Current Living Situation: Family Current Living Situation Comment: Son and Daughter in law. current occupational status: retired How many Children do You have: 4 Feels Safe at Home: Yes Safety Concerns Comment: unsteady at times Childhood Exposure to Second-Hand Smoke: Yes Dental Care, Regularly: No Physical Activity Frequency: Does not Exercise Seatbelt Use: always Sunscreen Use: No Assistive Devices: Bedside Commode, Hospital Bed, Slide Board and Wheelchair Physical Exam Vital Signs (Past 24 Hours): Last Vital Signs Temp 36.7 C 01/20/22 14:22 Pulse 97 H 01/20/22 14:22 Resp 16 01/20/22 14:22 BP 149/64 H 01/20/22 14:22 Pulse Ox 93 01/20/22 14:22 O2 Del Method 01/20/22 11:54 O2 Flow Rate 1 01/19/22 13:35 FiO2 21 01/18/22 04:13 Results & Data (PSY) Medications Administered Acetaminophen (Acetaminophen 500 Mg Tab) 1,000 mg PO Q8H PRN PRN Reason: Pain Stop: 02/13/22 05:39 Last Admin: 01/19/22 22:42 Dose: 1,000 mg Documented By: Admin: 01/19/22 15:08 Dose: 1,000 mg Documented By: Admin: 01/18/22 16:25 Dose: 1,000 mg Documented By: Admin: 01/17/22 21:04 Dose: 1,000 mg Documented By: Admin: 01/17/22 13:28 Dose: 1,000 mg Documented By: Admin: 01/16/22 22:19 Dose: 1,000 mg Documented By: EMA Amlodipine Besylate (Amlodipine Besylate 5 Mg Tab) 5 mg PO BID CASA Stop: 02/13/22 08:59 Last Admin: 01/20/22 08:41 Dose: 5 mg Documented By: Admin: 01/19/22 20:07 Dose: 5 mg Documented By: Admin: 01/19/22 09:18 Dose: Not Given Documented By: Admin: 01/18/22 22:04 Dose: 5 mg Documented By: Admin: 01/18/22 08:11 Dose: 5 mg Documented By: Admin: 01/17/22 19:58 Dose: 5 mg Documented By: Admin: 01/17/22 13:29 Dose: 5 mg Documented By: Admin: 01/16/22 20:23 Dose: 5 mg Documented By: Admin: 01/16/22 08:08 Dose: 5 mg Documented By: Admin: 01/15/22 20:14 Dose: 5 mg Documented By: Admin: 01/15/22 12:39 Dose: 5 mg Documented By: Admin: 01/14/22 20:35 Dose: 5 mg Documented By: Admin: 01/14/22 08:26 Dose: 5 mg Documented By: ASHANTI Ascorbic Acid (Ascorbic Acid 500 Mg Tab) 500 mg PO QAM CASA Stop: 02/13/22 08:59 Last Admin: 01/20/22 08:41 Dose: 500 mg Documented By: Admin: 01/19/22 09:22 Dose: 500 mg Documented By: Admin: 01/18/22 08:14 Dose: 500 mg Documented By: Admin: 01/17/22 08:37 Dose: 500 mg Documented By: Admin: 01/16/22 08:08 Dose: 500 mg Documented By: Admin: 01/15/22 08:11 Dose: 500 mg Documented By: Admin: 01/14/22 08:26 Dose: 500 mg Documented By: ASHANTI Aspirin (Aspirin 81 Mg Ectab) 81 mg PO DAILY CASA Stop: 02/13/22 08:59 Last Admin: 01/20/22 08:41 Dose: 81 mg Documented By: Admin: 01/19/22 09:22 Dose: 81 mg Documented By: Admin: 01/18/22 08:12 Dose: 81 mg Documented By: Admin: 01/17/22 08:39 Dose: 81 mg Documented By: Admin: 01/16/22 08:08 Dose: 81 mg Documented By: Admin: 01/15/22 08:11 Dose: 81 mg Documented By: Admin: 01/14/22 08:24 Dose: 81 mg Documented By: ASHANTI Atorvastatin Calcium (Atorvastatin 40 Mg Tab) 80 mg PO HS CASA Stop: 02/13/22 20:59 Last Admin: 01/19/22 20:07 Dose: 80 mg Documented By: Admin: 01/18/22 22:04 Dose: 80 mg Documented By: Admin: 01/17/22 19:59 Dose: 80 mg Documented By: Admin: 01/16/22 20:24 Dose: 80 mg Documented By: Admin: 01/15/22 20:13 Dose: 80 mg Documented By: Admin: 01/14/22 20:35 Dose: 80 mg Documented By: TEMO Docusate Sodium (Docusate Sodium 100 Mg Cap) 100 mg PO BID CASA Stop: 02/13/22 08:59 Last Admin: 01/20/22 08:38 Dose: Not Given Documented By: Admin: 01/19/22 20:06 Dose: 100 mg Documented By: Admin: 01/19/22 09:19 Dose: Not Given Documented By: Admin: 01/18/22 22:05 Dose: Not Given Documented By: Admin: 01/18/22 08:13 Dose: Not Given Documented By: Admin: 01/17/22 19:56 Dose: Not Given Documented By: Admin: 01/17/22 08:36 Dose: 100 mg Documented By: Admin: 01/16/22 20:23 Dose: 100 mg Documented By: Admin: 01/16/22 08:09 Dose: Not Given Documented By: Admin: 01/15/22 20:15 Dose: 100 mg Documented By: Admin: 01/15/22 08:11 Dose: Not Given Documented By: Admin: 01/14/22 20:35 Dose: 100 mg Documented By: Admin: 01/14/22 08:29 Dose: Not Given Documented By: ASHANTI Heparin Sodium (Porcine) (Heparin Sod 5,000 Unit/0.5 Ml Vial) 5,000 units SQ BID CASA Stop: 02/16/22 08:59 Last Admin: 01/20/22 08:41 Dose: 5,000 units Documented By: Admin: 01/19/22 20:06 Dose: 5,000 units Documented By: Admin: 01/19/22 09:23 Dose: 5,000 units Documented By: Admin: 01/18/22 22:04 Dose: 5,000 units Documented By: Admin: 01/18/22 08:13 Dose: 5,000 units Documented By: Admin: 01/17/22 19:58 Dose: 5,000 units Documented By: Admin: 01/17/22 08:55 Dose: 5,000 units Documented By: Hydralazine HCl (Hydralazine Tab 50 Mg Tab) 100 mg PO TID CASA Stop: 02/13/22 08:59 Last Admin: 01/20/22 08:41 Dose: 100 mg Documented By: Admin: 01/19/22 20:07 Dose: 100 mg Documented By: Admin: 01/19/22 14:14 Dose: Not Given Documented By: Admin: 01/19/22 09:19 Dose: Not Given Documented By: Admin: 01/18/22 22:03 Dose: 100 mg Documented By: Admin: 01/18/22 14:38 Dose: 100 mg Documented By: Admin: 01/18/22 08:11 Dose: 100 mg Documented By: Admin: 01/17/22 19:59 Dose: 100 mg Documented By: Admin: 01/17/22 13:54 Dose: Not Given Documented By: Admin: 01/17/22 13:29 Dose: 100 mg Documented By: Admin: 01/16/22 20:25 Dose: 100 mg Documented By: Admin: 01/16/22 14:49 Dose: 100 mg Documented By: Admin: 01/16/22 08:09 Dose: 100 mg Documented By: Admin: 01/15/22 20:13 Dose: 100 mg Documented By: Admin: 01/15/22 15:39 Dose: 100 mg Documented By: Admin: 01/15/22 12:39 Dose: 100 mg Documented By: Admin: 01/14/22 20:35 Dose: 100 mg Documented By: Admin: 01/14/22 13:03 Dose: 100 mg Documented By: Admin: 01/14/22 08:25 Dose: 100 mg Documented By: CG Insulin Aspart (Insulin Aspart Per Unit) 0 units SC ACHS CASA Stop: 02/13/22 07:29 Last Admin: 01/20/22 12:28 Dose: 8 units Documented By: EVELIO Co-signed By: TB Admin: 01/20/22 08:34 Dose: 3 units Documented By: EVELIO Co-signed By: TB Admin: 01/19/22 20:32 Dose: Not Given Documented By: Admin: 01/19/22 17:24 Dose: 7 units Documented By: AK Co-signed By: LCS Admin: 01/19/22 14:11 Dose: 1 units Documented By: EVELIO Co-signed By: TB Admin: 01/19/22 09:08 Dose: 3 units Documented By: EVELIO Co-signed By: LCS Admin: 01/18/22 21:57 Dose: Not Given Documented By: Admin: 01/18/22 17:21 Dose: 1 units Documented By: KENDALL Co-signed By: TB Admin: 01/18/22 12:30 Dose: 4 units Documented By: KENDALL Co-signed By: JB Admin: 01/18/22 07:30 Dose: Not Given Documented By: Admin: 01/17/22 20:34 Dose: Not Given Documented By: Admin: 01/17/22 17:48 Dose: 2 units Documented By: Co-signed By: BARBI Admin: 01/17/22 13:36 Dose: Not Given Documented By: Admin: 01/17/22 08:50 Dose: 3 units Documented By: ENS Co-signed By: DTT Admin: 01/16/22 21:08 Dose: 2 units Documented By: EMA Co-signed By: JADA Admin: 01/16/22 16:57 Dose: 3 units Documented By: RONALDO Co-signed By: KOLTON Admin: 01/16/22 12:16 Dose: 6 units Documented By: RONALDO Co-signed By: KOLTON Admin: 01/16/22 08:06 Dose: 2 units Documented By: RONALDO Co-signed By: RENAN Admin: 01/15/22 20:46 Dose: Not Given Documented By: Admin: 01/15/22 17:11 Dose: 7 units Documented By: MANUELITO Co-signed By: RENAN Admin: 01/15/22 13:20 Dose: Not Given Documented By: Admin: 01/15/22 08:02 Dose: 6 units Documented By: KS Co-signed By: RENAN Admin: 01/14/22 20:26 Dose: 6 units Documented By: CF Co-signed By: SAMEER Admin: 01/14/22 17:35 Dose: 8 units Documented By: CG Co-signed By: RENAN Admin: 01/14/22 12:44 Dose: 5 units Documented By: CG Co-signed By: RENAN Admin: 01/14/22 08:12 Dose: 2 units Documented By: CG Co-signed By: KENDALL Insulin Glargine (Lantus Per Unit Charge) 8 units SQ QPM CASA Stop: 02/17/22 20:59 Last Admin: 01/19/22 20:36 Dose: 8 units Documented By: SKS Co-signed By: ROBERT Admin: 01/18/22 21:57 Dose: 8 units Documented By: EEM Co-signed By: SG Isosorbide Mononitrate (Isosorbide [place] Extended Rel 60 Mg Tabcr) 120 mg PO QAM CASA Stop: 02/13/22 08:59 Last Admin: 01/20/22 08:42 Dose: 120 mg Documented By: Admin: 01/19/22 09:24 Dose: Not Given Documented By: Admin: 01/18/22 08:12 Dose: 120 mg Documented By: Admin: 01/17/22 13:30 Dose: 120 mg Documented By: Admin: 01/16/22 08:10 Dose: 120 mg Documented By: Admin: 01/15/22 08:11 Dose: 120 mg Documented By: Admin: 01/14/22 08:25 Dose: 120 mg Documented By: ASHANTI Miscellaneous (Carbohydrates For Hypoglycemia ) 15 - 30 gm PO UD PRN PRN Reason: Hypoglycemia Protocol Stop: 02/13/22 05:39 Last Admin: 01/18/22 07:06 Dose: 15 gm Documented By: MARCELA Multivitamins (Multivitamin Tab) 1 tab PO QAM CASA Stop: 02/13/22 08:59 Last Admin: 01/20/22 08:42 Dose: 1 tab Documented By: Admin: 01/19/22 09:24 Dose: 1 tab Documented By: Admin: 01/18/22 08:11 Dose: 1 tab Documented By: Admin: 01/17/22 08:38 Dose: 1 tab Documented By: Admin: 01/16/22 08:11 Dose: 1 tab Documented By: Admin: 01/15/22 12:40 Dose: 1 tab Documented By: Admin: 01/14/22 08:24 Dose: 1 tab Documented By: ASHANTI Multivitamins/Minerals (Calcium 600mg + Vit D 400 Iu Tab) 2 tab PO QAM CASA Stop: 02/13/22 08:59 Last Admin: 01/20/22 08:41 Dose: 2 tab Documented By: Admin: 01/19/22 09:22 Dose: 2 tab Documented By: Admin: 01/18/22 08:12 Dose: 2 tab Documented By: Admin: 01/17/22 08:38 Dose: 2 tab Documented By: Admin: 01/16/22 08:09 Dose: 2 tab Documented By: Admin: 01/15/22 08:10 Dose: 2 tab Documented By: Admin: 01/14/22 08:25 Dose: 2 tab Documented By: ASHANTI Multivitamins/Minerals (Cerovite Adv Formula Tab) 1 tab PO DAILY CASA Stop: 02/13/22 08:59 Last Admin: 01/20/22 08:42 Dose: 1 tab Documented By: Admin: 01/19/22 09:25 Dose: 1 tab Documented By: Admin: 01/18/22 08:12 Dose: 1 tab Documented By: Admin: 01/17/22 08:39 Dose: 1 tab Documented By: Admin: 01/16/22 08:10 Dose: 1 tab Documented By: Admin: 01/15/22 12:38 Dose: 1 tab Documented By: Admin: 01/14/22 08:29 Dose: Not Given Documented By: ASHANTI Sevelamer HCl (Sevelamer Hcl 800 Mg Tablet) 800 mg PO TIDM CASA Stop: 02/13/22 07:59 Last Admin: 01/20/22 11:56 Dose: 800 mg Documented By: Admin: 01/20/22 07:54 Dose: 800 mg Documented By: Admin: 01/19/22 17:27 Dose: 800 mg Documented By: Admin: 01/19/22 13:49 Dose: 800 mg Documented By: Admin: 01/19/22 07:53 Dose: 800 mg Documented By: Admin: 01/18/22 17:42 Dose: 800 mg Documented By: Admin: 01/18/22 12:35 Dose: 800 mg Documented By: Admin: 01/18/22 08:14 Dose: 800 mg Documented By: Admin: 01/17/22 17:52 Dose: 800 mg Documented By: Admin: 01/17/22 13:31 Dose: 800 mg Documented By: Admin: 01/17/22 08:38 Dose: 800 mg Documented By: Admin: 01/16/22 17:01 Dose: 800 mg Documented By: Admin: 01/16/22 12:17 Dose: 800 mg Documented By: Admin: 01/16/22 08:08 Dose: 800 mg Documented By: Admin: 01/15/22 17:16 Dose: 800 mg Documented By: Admin: 01/15/22 12:39 Dose: 800 mg Documented By: Admin: 01/15/22 08:11 Dose: 800 mg Documented By: Admin: 01/14/22 16:03 Dose: 800 mg Documented By: Admin: 01/14/22 12:03 Dose: 800 mg Documented By: Admin: 01/14/22 08:32 Dose: Not Given Documented By: ASHANTI Vitamin D (Cholecalciferol 1,000 Units 25 Mcg Tab) 2,000 units PO BID CASA Stop: 02/13/22 08:59 Last Admin: 01/20/22 08:41 Dose: 2,000 units Documented By: Admin: 01/19/22 20:07 Dose: 2,000 units Documented By: SKZoya Admin: 01/19/22 09:23 Dose: 2,000 units Documented By: Admin: 01/18/22 22:04 Dose: 2,000 units Documented By: EELili Admin: 01/18/22 08:11 Dose: 2,000 units Documented By: Admin: 01/17/22 19:57 Dose: 2,000 units Documented By: Admin: 01/17/22 08:40 Dose: 2,000 units Documented By: Admin: 01/16/22 20:24 Dose: 2,000 units Documented By: Admin: 01/16/22 08:09 Dose: 2,000 units Documented By: Admin: 01/15/22 20:13 Dose: 2,000 units Documented By: Admin: 01/15/22 08:11 Dose: 2,000 units Documented By: Admin: 01/14/22 20:36 Dose: 2,000 units Documented By: Admin: 01/14/22 08:24 Dose: 2,000 units Documented By: ASHANTI Coding Level of Care Code None
== END 2022-01-20 16:26 | disposition home health service (06) | DRG 177 ==
LOC: ED 23:56 → SUATTDRO 01-14 04:02 → 2S 01-14 04:02

== ENCOUNTER 2022-01-30 01:58 | Observation (INO) ==
--- NOTE | 2022-01-30 02:14 | Emergency Department Note ---
Impression & Plan Hypoxia Admission ED Provider Note HPI: The patient is a 81-year-old female with history of coronary artery disease, chronic kidney disease, presents the emergency department with a chief complaint of shortness of breath. Patient states is been ongoing for about the past week. She does have a previous diagnosis of COVID-19 from earlier this month. Patient states she was feeling more short of breath this evening, she was unable to wear her oxygen secondary to an equipment issue and when EMS was contacted she reportedly had oxygen saturations in the 70s. She was placed on nasal cannula oxygen with good improvement. On my initial assessment the patient is frail-appearing but she is hemodynamically stable, she is with oxygen saturations at 98% on 2 L nasal cannula oxygen which she is supposed to be wearing her baseline. Patient denies any current chest pain. She is otherwise in no acute distress on my initial evaluation. ROS: -Pulmonary: Shortness of breath *10 point review systems was conducted and is otherwise negative unless stated above *Outpatient medications and allergy history reviewed PE: General: Alert, NAD HEENT: Normocephalic, atraumatic Eyes: Extraocular eye movement is intact, no scleral erythema Pulmonary: Slightly diminished on the right side greater than left, no crackles or wheezing Cardio: Regular rate and rhythm GI: Abdomen is soft, nontender : No suprapubic tenderness MSK: No evidence of trauma or malformation of the extremities, no edema status post right AKA Skin: No evidence of rash Neuro: Alert, no focal deficits Psychiatric: Cooperative night monitor: - An order was placed for continuous cardiac monitoring - Patient was noted to be in normal sinus rhythm with a rate of 90 EKG: Rate: 91 Rhythm: Normal sinus rhythm Intervals: Within normal limits ST changes: No ST elevation Time: 0206 Medical Decision Making: Patient presented to the emergency department with shortness of breath, she does have a history of end-stage renal disease, she also has recently been diagnosed with COVID-19. Repeat testing was performed here in the ED the patient is positive for COVID-19, chest x-ray shows evidence of right-sided multifocal infiltrate that appears improved from previous x-ray on 01/14. Patient was not wearing her oxygen at home, she states this is secondary to an equipment issue, she was hypoxic in the field and did respond well to nasal cannula oxygen. Her lab work shows evidence of hyperkalemia at 5.6, patient was given albuterol, calcium, insulin, and dextrose here in the ED. she remained stable on telemetry otherwise without any peaked T waves or widened QRS on EKG. Patient's daughter does confirm that the patient missed her last dialysis session on Friday because she was not feeling well. I suspect that her shortness of breath is likely related to fluid overload in the setting of pre- existing severe aortic stenosis and CHF. Troponin elevation is near baseline in conjunction with chronic renal failure, patient denies any chest pain. I do feel the patient would benefit from admission for arrangement of dialysis in the morning I do think this would help with her symptoms. She has previously seen pulmonology here for chronic respiratory failure and previously noted hydro/pneumothorax. I discussed all of the above with the patient and her daughter at the bedside, they are in agreement for admission. Case was discussed with the on-call hospitalist, Dr. Fuller, who accepted the patient for further care as an inpatient. * CRITICAL CARE TIME: (40) minutes -Stabilization of hypoxia with oxygen saturations less than 90% on room air requiring nasal cannula oxygen for stabilization, time spent at the bedside, treatment of hyperkalemia 5.6 requiring IV medications and nebulized breathing treatment, arrangement of admission Diagnosis: 1. Hyperkalemia 2. Acute on chronic respiratory failure with hypoxia 3. COVID-19 pneumonia 4. Elevated troponin Disposition: ADMIT Jhonny Kuhn DO Emergency Medicine Past Med/Surg History Medical History (Updated 01/30/22 @ 03:52 by Jhonny Kuhn DO) Anemia AV fistula LEFT CAD (coronary artery disease) Carotid artery disease less than 50% ICA stenosis per 08/2016 carotid duplex CHF (congestive heart failure) Chronic gastroesophageal reflux disease Chronic kidney disease on HD Dehiscence of wound Depression Diabetic peripheral neuropathy associated with type 2 diabetes mellitus Dialysis patient 3XWK (M/W/F) [facility] [employer] [facility]>FOLLOWED BY DR. HATHAWAY Dyslipidemia Gallstones Generalized osteoarthritis of multiple sites Graves disease H/O malignant neoplasm of uterine body Hiatal hernia History of kidney stones Hydropneumothorax Hypertension Irregular heart beat metoprolol for this per pt Lab test negative for COVID-19 virus Lack of motivation Macular degeneration Moderate calcific aortic stenosis Multinodular goiter (nontoxic) Multiple thyroid nodules Obesity Osteopenia Patella fracture Secondary hyperparathyroidism Sepsis Severe aortic stenosis Sleep apnea No device Type 2 diabetes mellitus with insulin therapy Surgical History H/O abdominoplasty H/O basal cell carcinoma excision H/O shoulder surgery Right History of appendectomy History of cataract surgery R/L History of colonoscopy History of esophagogastroduodenoscopy (EGD) History of hip surgery Closed intertrochanteric fracture of left femur 04/10/2021: 02/16/2021: Grade 4 view, MAC#3, ETT#7.0. No issues per anesthesia postop progress note. History of open reduction and internal fixation (ORIF) procedure right patella 05/18/2021: LMA#4 atraumatic + PNB. No issues per anesthesia postop progress note. History of tonsillectomy History of tooth extraction S/P complete hysterectomy Status post knee surgery 05/31/21 Dr. Heriberto Ly- Incision and Debridement Right Knee, Right Open Reduction Internal Fixation Patella, Hardware Removal(Right) Family History Father Diabetes Lung cancer Family history of diabetes mellitus Mother , in a home fire Hypertension Family history of diabetes mellitus Daughter Family history of diabetes mellitus Son Family history of diabetes mellitus Other No family history of adverse response to anesthesia Denies family history of Ovarian cancer Prostate cancer Myocardial infarction Breast cancer Colorectal cancer Social History Smoking Status: Former smoker Tobacco Type: Cigarettes Second Hand Exposure: No; Hx Alcohol Use: Yes Alcohol type: hard liquor Hx Substance Use: No Preferred Language: [place] Communication Ability: Effective Visual Impairment: No Limitations Hearing Ability: Normal Required: No Beliefs That Will Affect Care: None marital status: / Current Living Situation: Family Current Living Situation Comment: Son and Daughter in law. current occupational status: retired How many Children do You have: 4 Feels Safe at Home: Yes Safety Concerns Comment: unsteady at times Childhood Exposure to Second-Hand Smoke: Yes Dental Care, Regularly: No Physical Activity Frequency: Does not Exercise Seatbelt Use: always Sunscreen Use: No Assistive Devices: Bedside Commode, Hospital Bed, Slide Board and Wheelchair Allergies Allergies Allergy/AdvReac Type Severity Reaction Status Date / Time codeine AdvReac Mild DOES NOT Verified 01/24/22 15:[address] IT MAKES HER FEEL. Home Meds Home Medications Medication Instructions Recorded Confirmed ascorbic acid (vitamin C) 500 mg 500 mg PO QAM 12/10/18 01/30/22 tablet venlafaxine 150 mg 150 mg PO QAM 12/10/18 01/30/22 capsule,extended release 24 hr cholecalciferol (vitamin D3) 25 50 mcg PO BID 12/27/20 01/30/22 mcg (1,000 unit) capsule vitamins A,C,X-nivx-rizyfi 14,320 1 cap PO BID 06/14/21 01/30/22 unit-226 mg-200 unit capsule (PreserVision AREDS) betamethasone dipropionate 0.05 % 1 applic topical DIRECTED PRN 11/20/21 01/30/22 topical cream Skin Irritation acetaminophen 500 mg tablet 1,000 mg PO Q8H PRN Pain 12/11/21 01/30/22 (Tylenol Extra Strength) amlodipine 5 mg tablet 5 mg PO BID 12/11/21 01/30/22 docusate sodium 100 mg capsule 100 mg PO BID 12/11/21 01/30/22 menthol 0.44 %-zinc oxide 20.6 % 1 applic topical TID PRN NEEDED 12/11/21 01/30/22 topical ointment (Calmoseptine) multivitamin 1 tab PO QAM 01/14/22 01/30/22 Previous Rx's Medication Instructions Recorded insulin aspart U-100 100 unit/mL 7 unit (0.07 mL) subcut TIDM #30 mL 06/22/21 (3 mL) subcutaneous pen (Novolog Flexpen U-100 Insulin aspart) pen needle, diabetic 32 gauge x #400 ea 09/25/2132" (BD Ultra-Fine [place] Pen Needle) atorvastatin 80 mg tablet 80 mg PO HS #90 tabs 01/03/22 hydralazine 50 mg tablet 100 mg PO TID #90 tabs 01/03/22 isosorbide mononitrate 120 mg 120 mg PO QAM #90 tabs 01/03/22 tablet,extended release 24 hr aspirin 81 mg tablet,delayed 81 mg PO DAILY #30 tabs 01/04/22 release (Adult Aspirin Regimen) polyethylene glycol 3350 17 17 g PO DAILY PRN Constipation 08/26/22 gram/dose oral powder #510 grams insulin glargine 100 unit/mL (3 4 unit (0.04 mL) subcut QPM #15 mL 01/22/22 mL) subcutaneous pen (Lantus Solostar U-100 Insulin) sevelamer HCl 800 mg tablet 800 mg PO TID #270 tabs 01/22/22 Portable Oxygen #1 ea 01/24/22 Results & Data (ED) Vital Signs Vital Signs - 24 hr 01/30/22 02:14 01/30/22 02:31 01/30/22 02:30 Temperature 36.7 C Temperature Source Oral Pulse Rate 86 87 Pulse Rate from SpO2 Sensor 82 Respiratory Rate 24 16 Blood Pressure 138/52 L Blood Pressure Mean 80 Pulse Oximetry 98 97 96 Oxygen Delivery Method Nasal Cannula Nasal Cannula Nasal Cannula Oxygen Flow Rate 4 2 2 Sepsis Recent Fever Within 48 Hours No Sepsis New/Unexplained Change in Mental Status No Sepsis Action Taken by Nursing No Action Required 01/30/22 03:00 Temperature Temperature Source Pulse Rate 74 Pulse Rate from SpO2 Sensor Respiratory Rate 20 Blood Pressure 135/58 L Blood Pressure Mean 83 Pulse Oximetry 94 Oxygen Delivery Method Nasal Cannula Oxygen Flow Rate 2 Sepsis Recent Fever Within 48 Hours Sepsis New/Unexplained Change in Mental Status Sepsis Action Taken by Nursing Laboratory Data Result diagrams: 01/30/22 02:10 01/30/22 02:10 Lab Results 01/30/22 01/30/22 01/30/22 Range/Units 02:10 02:10 02:10 WBC 12.25 H (4.8-10.8) K/ul RBC 3.26 L (3.93-5.22) M/uL Hgb 8.2 L (12.0-16.0) g/dl Hct 28.3 L (34.1-44.9) % MCV 86.8 (80.0-100.0) fL MCH 25.2 (25.0-34.0) pg MCHC 29.0 L (32.0-36.0) g/dL RDW Std Deviation 66.4 H (36.4-46.3) fL RDW Coeff of Chris 21.3 H (11.5-14.5) % Plt Count 320 (130-400) K/uL MPV 8.8 L (9.4-12.3) fL Immature Gran % (Auto) 0.7 % Neut % (Auto) 79.7 % Lymph % (Auto) 6.5 % [place] % (Auto) 9.1 % Eos % (Auto) 3.6 % Baso % (Auto) 0.4 % Neut # (Auto) 9.75 H (1.4-6.5) K/uL Lymph # (Auto) 0.80 L (1.2-3.4) K/uL [place] # (Auto) 1.12 H (0.24-0.82) K/uL Eos # (Auto) 0.44 (0-0.50) K/uL Baso # (Auto) 0.05 (0-0.2) K/uL Immature Gran # (Auto) 0.09 H (0.00-0.02) K/uL Anisocytosis Present PT 11.4 (9.0-12.0) Seconds INR 1.1 (0.9-1.1) APTT 29.3 (21.0-31.0) Seconds PTT Ratio 1.1 VBG pH (7.36-7.41) VBG pCO2 (38-50) mmHg VBG pO2 mmHg VBG HCO3 mmol/L VBG O2 Saturation % VBG Base Excess mEq/L Sodium 131 L (136-145) mmol/L Potassium 5.6 H (3.5-5.1) mmol/L Chloride 95 L (98-107) mmol/L Carbon Dioxide 26 (21-32) mmol/L Anion Gap 10 (3-11) BUN 75 H (6-23) mg/dl Creatinine 4.65 H* (0.6-1.2) mg/dl Est Cr Clr Drug Dosing 9.2 ml/min Est GFR ( Amer) 9.7 ml/min Est GFR (Non-Af Amer) 8.4 ml/min BUN/Creatinine Ratio 16.1 (10-20) Glucose 69 L (70-99(Fasting)) mg/dl Calcium 10.8 H (8.5-10.1) mg/dl Total Bilirubin 0.3 (0.2-1.0) mg/dl AST 17 (13-39) U/L ALT 10 (7-52) U/L Alkaline Phosphatase 88 (34-104) U/L Troponin I High Sens 61.9 H* D (0-14) pg/ml B-Natriuretic Peptide (0-100) pg/ml Total Protein 6.5 (6.0-8.3) gm/dl Albumin 2.9 L (3.4-5.0) gm/dl Globulin 3.6 (2.5-4.0) gm/dl Albumin/Globulin Ratio 0.8 L (0.9-2) SARS-CoV-2 (PCR) (Negative) Influenza Type A (PCR) (Neg) Influenza Type B (PCR) (Neg) RSV (RT-PCR) (Neg) 01/30/22 01/30/22 01/30/22 Range/Units 02:10 02:27 02:28 WBC (4.8-10.8) K/ul RBC (3.93-5.22) M/uL Hgb (12.0-16.0) g/dl Hct (34.1-44.9) % MCV (80.0-100.0) fL MCH (25.0-34.0) pg MCHC (32.0-36.0) g/dL RDW Std Deviation (36.4-46.3) fL RDW Coeff of Chris (11.5-14.5) % Plt Count (130-400) K/uL MPV (9.4-12.3) fL Immature Gran % (Auto) % Neut % (Auto) % Lymph % (Auto) % [place] % (Auto) % Eos % (Auto) % Baso % (Auto) % Neut # (Auto) (1.4-6.5) K/uL Lymph # (Auto) (1.2-3.4) K/uL [place] # (Auto) (0.24-0.82) K/uL Eos # (Auto) (0-0.50) K/uL Baso # (Auto) (0-0.2) K/uL Immature Gran # (Auto) (0.00-0.02) K/uL Anisocytosis PT (9.0-12.0) Seconds INR (0.9-1.1) APTT (21.0-31.0) Seconds PTT Ratio VBG pH 7.37 (7.36-7.41) VBG pCO2 48 (38-50) mmHg VBG pO2 51 mmHg VBG HCO3 28 mmol/L VBG O2 Saturation 84.4 % VBG Base Excess 1.7 mEq/L Sodium (136-145) mmol/L Potassium (3.5-5.1) mmol/L Chloride (98-107) mmol/L Carbon Dioxide (21-32) mmol/L Anion Gap (3-11) BUN (6-23) mg/dl Creatinine (0.6-1.2) mg/dl Est Cr Clr Drug Dosing ml/min Est GFR ( Amer) ml/min Est GFR (Non-Af Amer) ml/min BUN/Creatinine Ratio (10-20) Glucose (70-99(Fasting)) mg/dl Calcium (8.5-10.1) mg/dl Total Bilirubin (0.2-1.0) mg/dl AST (13-39) U/L ALT (7-52) U/L Alkaline Phosphatase (34-104) U/L Troponin I High Sens (0-14) pg/ml B-Natriuretic Peptide 1972 H (0-100) pg/ml Total Protein (6.0-8.3) gm/dl Albumin (3.4-5.0) gm/dl Globulin (2.5-4.0) gm/dl Albumin/Globulin Ratio (0.9-2) SARS-CoV-2 (PCR) POSITIVE A* (Negative) Influenza Type A (PCR) Negative (Neg) Influenza Type B (PCR) Negative (Neg) RSV (RT-PCR) Negative (Neg) Administered Medications Discontinued Medications Albuterol (Albuterol 0.5% Neb Soln 2.5 Mg/0.5 Ml Vial) 10 mg NEB NOW STA Stop: 01/30/22 03:43 Last Admin: 01/30/22 04:08 Dose: 10 mg Documented By: AB Discharge Plan Visit Data Chief Complaint: Shortness of Breath/Dyspnea Stated Complaint: AMS ED Provider: Jhonny Kuhn Discharge Problem: Hypoxia Forms Stand Alone Forms: My [employer] Prescriptions Prescriptions: No Action venlafaxine 150 mg capsule,extended release 24hr 150 mg PO QAM ascorbic acid (vitamin C) 500 mg tablet 500 mg PO QAM insulin aspart U-100 [Novolog Flexpen U-100 Insulin] 100 unit/mL (3 mL) insulin pen 7 unit subcut TIDM Qty: 30 3RF Label Comments: pt cant remember if she had insulin today Rx Instructions: Plus sliding scale 3-4 U at HS if > 250 (DME) pen needle, diabetic [BD Ultra-Fine [place] Pen Needle] 32 gauge x 5/32" needle See Rx Instructions .ROUTE .MEDSUPPLY Qty: 400 3RF Rx Instructions: use 4 needles daily aspirin [Adult Aspirin Regimen] 81 mg tablet,delayed release (DR/EC) 81 mg PO DAILY Qty: 30 11RF polyethylene glycol 3350 17 gram/dose powder 17 g PO DAILY PRN (Reason: Constipation) Qty: 510 11RF hydralazine 50 mg tablet 100 mg PO TID Qty: 90 0RF isosorbide mononitrate 120 mg tablet extended release 24 hr 120 mg PO QAM Qty: 90 3RF Label Comments: "if she wrote it down I took it" atorvastatin 80 mg tablet 80 mg PO HS Qty: 90 3RF (DME) Portable Oxygen Misc See Rx Instructions .MEDSUPPLY Qty: 1 0RF Rx Instructions: Oxygen 2 liters continuous via nasal cannula on exertion with portable con centrator. PATTI 99 insulin glargine [Lantus Solostar U-100 Insulin] 100 unit/mL (3 mL) insulin pen 4 unit subcut QPM Qty: 15 1RF Rx Instructions: Changed by Dr. Mcnair sevelamer HCl 800 mg tablet 800 mg PO TID Qty: 270 1RF Rx Instructions: must administer with a meal/food betamethasone dipropionate 0.05 % cream 1 applic topical DIRECTED PRN (Reason: Skin Irritation) cholecalciferol (vitamin D3) 25 mcg (1,000 unit) capsule 50 mcg PO BID PreserVision AREDS 14,320-226-200 mupt-st-zogo Capsule 1 cap PO BID amlodipine 5 mg tablet 5 mg PO BID Rx Instructions: TAKE 1 TABLET BY MOUTH TWICE DAILY acetaminophen [Tylenol Extra Strength] 500 mg Tablet 1,000 mg PO Q8H PRN (Reason: Pain) docusate sodium 100 mg Capsule 100 mg PO BID menthol-zinc oxide [Calmoseptine] 0.44-20.6 % ointment 1 applic TOPICAL TID PRN (Reason: NEEDED) multivitamin Tablet 1 tab PO QAM Referrals Referrals: David Lopez III, CRNP [Primary Care Provider] -
[2022-01-30 02:26] LABS: Basophils # (auto) 0.05 K/uL (0-0.2); Basophils % (auto) 0.4 %; Eosinophils # (auto) 0.44 K/uL (0-0.50); Eosinophils % (auto) 3.6 %; Hematocrit (blood only) 28.3 % (34.1-44.9); Hemoglobin 8.2 g/dl (12.0-16.0); Immature Granulocytes # (auto) 0.09 K/uL (0.00-0.02); Immature Granulocytes % (auto) 0.7 %; Lymphocytes % (auto) 6.5 %; Mean Corpuscular Hemoglobin 25.2 pg (25.0-34.0); Mean Corpuscular Volume 86.8 fL (80.0-100.0); Mean Platelet Volume 8.8 fL (9.4-12.3); Monocytes # (auto) 1.12 K/uL (0.24-0.82); Monocytes % (auto) 9.1 %; Neutrophils # (auto) 9.75 K/uL (1.4-6.5); Neutrophils % (auto) 79.7 %; Platelet Count 320 K/uL (130-400); RDW Coefficient of Variation 21.3 % (11.5-14.5); RDW Standard Deviation 66.4 fL (36.4-46.3); Red Blood Count 3.26 M/uL (3.93-5.22); White Blood Count 12.25 K/ul (4.8-10.8)
[2022-01-30 02:31] LABS: Base Excess VBG 1.7 mEq/L; HCO3 VBG 28 mmol/L; Oxygen Saturation VBG 84.4 %; PCO2 VBG 48 mmHg (38-50); PO2 VBG 51 mmHg; pH VBG 7.37 (7.36-7.41)
[2022-01-30 02:36] LABS: INR 1.1 (0.9-1.1); Partial Thromboplastin Ratio 1.1; Partial Thromboplastin Time 29.3 Seconds (21.0-31.0); Prothrombin Time 11.4 Seconds (9.0-12.0)
[2022-01-30 02:43] LABS: Anisocytosis Present
[2022-01-30 02:58] LABS: Albumin Globulin Ratio 0.8 (0.9-2); Albumin Level 2.9 gm/dl (3.4-5.0); BUN Creatinine Ratio 16.1 (10-20); Bilirubin,Total 0.3 mg/dl (0.2-1.0); Calcium 10.8 mg/dl (8.5-10.1); Creatinine Clr Calc Pharmacy 9.2 ml/min; Est GFR (African American) 9.7 ml/min; Est GFR (Non-African American) 8.4 ml/min; Globulin 3.6 gm/dl (2.5-4.0); Potassium 5.6 mmol/L (3.5-5.1); Total Protein 6.5 gm/dl (6.0-8.3); Troponin I High Sensitivity 61.9 pg/ml (0-14)
[2022-01-30 03:13] LABS: Influenza A virus by PCR Negative (Neg); Influenza B virus by PCR Negative (Neg); RSV by PCR Negative (Neg)
[2022-01-30 03:19] LABS: SARS CoV2 RNA(COVID-19) InHosp POSITIVE (Negative)
[2022-01-30] MEDS ORDERED: DEXTROSE 50% 50 ML SYRINGE IV STA (03:42)
[2022-01-30] MEDS ORDERED: STAT IV STA (03:42)
[2022-01-30] MEDS ORDERED: ALBUTEROL 0.5% NEB SOLN 2.5 MG/0.5 ML VIAL NEB STA (03:42)
[2022-01-30] MEDS ORDERED: CALCIUM GLUCONATE 10% 1,000 MG in DEXTROSE 5% 50 ML IV STA (03:42)
[2022-01-30] MEDS ORDERED: INSULIN HUMAN REGULAR PER UNIT 10 UNITS in SYRINGE 9.9 ML IV STA (03:42)
--- NOTE | 2022-01-30 04:33 | History & Physical Report ---
Date of Service January 30, 2022 Assessment & Plan (1) Acute respiratory failure with hypoxia: Plan: Patient with acute hypoxic respiratory failure, saturation of 87% on arrival. CXR looks to be improved from prior. Most likely secondary to volume overload. Patient with history of CHF secondary to valvular heart disease, ESRD on HD - missed treatment on Friday. Covid is POSITIVE but has been so since last month, most likely persistent positive test rather than true infection or reinfection. -Admit to medical with telemetry -Continue supplemental O2 as needed -Flutter and IS -Neprhology consultation appreciated re: HD, possibly removing extra fluid with session tomorrow if possible. -Check Procalcitonin (2) COVID-19: Plan: Patient had a negative Covid-19 on 12/11/21, was POSITIVE on 12/15/21 and continues to be positive on ER testing today. She reports a persistent dry cough but denies fever. Most likely persistent positive test rather than infection or reinfection -Will maintain isolation precautions for now until matter can be discussed with infection control (3) Elevated troponin: Plan: Patient denies chest pain. Some nonspecific ST changes on EKG. Patient has had persistent positive troponin in the past near today's value. Doubt cardiac ischemia -Telemetry monitoring -Repeat troponin in AM -Continue ASA, Atorvastatin (4) Chronic systolic CHF (congestive heart failure): Plan: Per echo 12/12/21 patient with mildly reduced LV function. LV is dilated with regional WMA. LA is dilated as well. Moderate AR, moderate to severe and moderate MR with elevated RVSP at 40-55 mmHg -Continue Isosorbide mononitrate -Continue hydralazine -Fluid removal with HD in AM Patient is largely anuric (5) ESRD (end stage renal disease) on dialysis: Plan: ESRD on HD q M/W/. Patient missed session on Friday due to feeling ill. Possibly contributing to hypoxia/SOB due to volume overload. Electrolytes with hyperkalemia K=5.6, no acute EKG changes. Treated medically in the ER with insulin/D50 as well as Calcium and albuterol neb treatment. -Repeat chemistry Plan for HD in AM -Continue Sevelamer (6) Type 2 diabetes mellitus with insulin therapy: Plan: Chronic. Low blood sugar of 69 in ER -Monitor -ISS (7) Dyslipidemia: Plan: Chronic -Continue Atorvastatin (8) Hypertension: Plan: Blood pressure mildly elevated at present -Continue Amlodipine, Isosorbide and Hydralazine -Monitor BP (9) Anemia: Plan: Near baseline -Monitor CBC (10) Depression: Plan: Chronic -Continue Venlafaxine 150mg po daily F/E/N - fluid removal with HD, monitor electrolytes, K treatment, AHA/Renal diet as tolerated Ppx - Heparin BID Code - Full per discussion with patient Dispo - Admit to medical with telemetry History of Present Illness Chief Complaint: SOB and hypoxia Primary Care Provider: David Lopez III, ELLIOTT Sonam Bolivar is a 81yo female with history of ESRD on HD M/W/F, HTN, HLP, DM, GERD, severe , recent Covid-19 infection presenting with persistent and progressive SOB and hypoxia - acutely worse over the last two days. Family reports saturations in the 60's on room air at home. Patient was recently hospitalized at [facility] from 01/14/22 - 01/20/22 for multilobar pneumonia for which she was treated with Zosyn. She was discharged home with home O2 but reports she has been unable to get it at home. She has been using her neighbor's extra O2 tank recently. She denies fever, chills, abdominal pain, nausea, vomiting, diarrhea or constipation. Denies chest pain. Family endorses occasional wheeze. Patient reports a persistent dry cough. Upon arrival to the ER patient hypoxic to 87% on room air. She was placed on supplemental O2 by NC 2L with improvement in saturation, presently 96% ER Course: Calcium gluconate Insulin/D50 Albuterol neb (for K) Allergies Allergy/AdvReac Type Severity Reaction Status Date / Time codeine AdvReac Mild DOES NOT Verified 01/24/22 15:[address] IT MAKES HER FEEL. Home Medications Medication Instructions Recorded Confirmed Type ascorbic acid (vitamin C) 500 mg 500 mg PO QAM 12/10/18 01/30/22 History tablet venlafaxine 150 mg 150 mg PO QAM 12/10/18 01/30/22 History capsule,extended release 24 hr cholecalciferol (vitamin D3) 25 50 mcg PO BID 12/27/20 01/30/22 History mcg (1,000 unit) capsule vitamins A,C,X-skwq-hbaqjn 14,320 1 cap PO BID 06/14/21 01/30/22 History unit-226 mg-200 unit capsule (PreserVision AREDS) insulin aspart U-100 100 unit/mL 7 unit (0.07 mL) subcut TIDM #30 mL 06/22/21 01/30/22 Rx (3 mL) subcutaneous pen (Novolog Flexpen U-100 Insulin aspart) pen needle, diabetic 32 gauge x #400 ea 09/25/21 01/30/22 Rx 5/32" (BD Ultra-Fine [place] Pen Needle) betamethasone dipropionate 0.05 % 1 applic topical DIRECTED PRN 11/20/21 01/30/22 History topical cream Skin Irritation acetaminophen 500 mg tablet 1,000 mg PO Q8H PRN Pain 12/11/21 01/30/22 History (Tylenol Extra Strength) amlodipine 5 mg tablet 5 mg PO BID 12/11/21 01/30/22 History docusate sodium 100 mg capsule 100 mg PO BID 12/11/21 01/30/22 History menthol 0.44 %-zinc oxide 20.6 % 1 applic topical TID PRN NEEDED 12/11/21 01/30/22 History topical ointment (Calmoseptine) atorvastatin 80 mg tablet 80 mg PO HS #90 tabs 01/03/22 01/30/22 Rx hydralazine 50 mg tablet 100 mg PO TID #90 tabs 01/03/22 01/30/22 Rx isosorbide mononitrate 120 mg 120 mg PO QAM #90 tabs 01/03/22 01/30/22 Rx tablet,extended release 24 hr aspirin 81 mg tablet,delayed 81 mg PO DAILY #30 tabs 01/04/22 01/30/22 Rx release (Adult Aspirin Regimen) polyethylene glycol 3350 17 17 g PO DAILY PRN Constipation 01/04/22 01/30/22 Rx gram/dose oral powder #510 grams multivitamin 1 tab PO QAM 01/14/22 01/30/22 History insulin glargine 100 unit/mL (3 4 unit (0.04 mL) subcut QPM #15 mL 01/22/22 01/30/22 Rx mL) subcutaneous pen (Lantus Solostar U-100 Insulin) sevelamer HCl 800 mg tablet 800 mg PO TID #270 tabs 01/22/22 01/30/22 Rx Portable Oxygen #1 ea 01/24/22 01/30/22 Rx Past Med/Surg History Medical History (Updated 01/30/22 @ 03:52 by Jhonny Kuhn DO) Anemia AV fistula LEFT CAD (coronary artery disease) Carotid artery disease less than 50% ICA stenosis per 08/2016 carotid duplex CHF (congestive heart failure) Chronic gastroesophageal reflux disease Chronic kidney disease on HD Dehiscence of wound Depression Diabetic peripheral neuropathy associated with type 2 diabetes mellitus Dialysis patient 3[facility] ([facility]W/F[facility] Dyslipidemia Gallstones Generalized osteoarthritis of multiple sites Graves disease H/O malignant neoplasm of uterine body Hiatal hernia History of kidney stones Hydropneumothorax Hypertension Irregular heart beat metoprolol for this per pt Lab test negative for COVID-19 virus Lack of motivation Macular degeneration Moderate calcific aortic stenosis Multinodular goiter (nontoxic) Multiple thyroid nodules Obesity Osteopenia Patella fracture Secondary hyperparathyroidism Sepsis Severe aortic stenosis Sleep apnea No device Type 2 diabetes mellitus with insulin therapy Surgical History H/O abdominoplasty H/O basal cell carcinoma excision H/O shoulder surgery Right History of appendectomy History of cataract surgery R/L History of colonoscopy History of esophagogastroduodenoscopy (EGD) History of hip surgery Closed intertrochanteric fracture of left femur 04/10/2021: 02/16/2021: Grade 4 view, MAC#3, ETT#7.0. No issues per anesthesia postop progress note. History of open reduction and internal fixation (ORIF) procedure right patella 05/18/2021: LMA#4 atraumatic + PNB. No issues per anesthesia postop progress note. History of tonsillectomy History of tooth extraction S/P complete hysterectomy Status post knee surgery 05/31/21 Dr. Heriberto Ly- Incision and Debridement Right Knee, Right Open Reduction Internal Fixation Patella, Hardware Removal(Right) Family History Father Diabetes Lung cancer Family history of diabetes mellitus Mother , in a home fire Hypertension Family history of diabetes mellitus Daughter Family history of diabetes mellitus Son Family history of diabetes mellitus Other No family history of adverse response to anesthesia Denies family history of Ovarian cancer Prostate cancer Myocardial infarction Breast cancer Colorectal cancer Social History Smoking Status: Former smoker Tobacco Type: Cigarettes Second Hand Exposure: No; Hx Alcohol Use: Yes Alcohol type: hard liquor Hx Substance Use: No Preferred Language: Albanian Communication Ability: Effective Visual Impairment: No Limitations Hearing Ability: Normal Frame Nailer Required: No Beliefs That Will Affect Care: None marital status: / Current Living Situation: Family Current Living Situation Comment: Son and Daughter in law. current occupational status: retired How many Children do You have: 4 Feels Safe at Home: Yes Safety Concerns Comment: unsteady at times Childhood Exposure to Second-Hand Smoke: Yes Dental Care, Regularly: No Physical Activity Frequency: Does not Exercise Seatbelt Use: always Sunscreen Use: No Assistive Devices: Bedside Commode, Hospital Bed, Slide Board and Wheelchair Review of Systems Review of Systems: All systems reviewed & are unremarkable except as noted in HPI & below Physical Exam Physical Exam: General: patient resting comfortably, NAD, non-toxic in appearance, AA&O x 4 Skin: warm, dry, intact, no rashes or lesions HEENT: NC/AT, PERRL, EOMI, anicteric sclera, conjunctiva without injection, external ear normal to inspection and nontender, nares patent, moist mucus membranes, dentition intact, no oropharyngeal lesions, neck supple, trachea midline, no LAD, no thyromegaly, no JVD Heart: +S1/S2, regular, no m/r/g Lungs: diminished breath sounds bilaterally, crackles at right base, no rhonchi or wheezing Abd: +BS, soft, NT/ND, no masses/organomegaly/ascites Ext: warm, 2+ pulses in UE/LE bilaterally, no clubbing/cyanosis or edema Neuro: nonfocal, patient AA&O x 4, speech intact, no facial droop, moving all extremities on command with equal strength 5/5 Results & Data Results & Data ([facility]) Vital Signs (Past 12 Hours) Vital Signs Temp Pulse Pulse Resp BP Pulse Ox O2 Del Method 01/30/22 04:00 81 18 147/72 H 95 Nasal Cannula 01/30/22 04:25 100 Nebulizer 01/30/22 04:12 85 18 97 Nasal Cannula 01/30/22 03:00 74 20 135/58 L 94 Nasal Cannula 01/30/22 02:30 87 16 96 Nasal Cannula 01/30/22 02:31 97 Nasal Cannula 01/30/22 02:14 36.7 C 86 24 138/52 L 98 Nasal Cannula O2 Flow Rate 01/30/22 04:00 2 01/30/22 04:25 01/30/22 04:12 2 01/30/22 03:00 2 01/30/22 02:30 2 01/30/22 02:31 2 01/30/22 02:14 4 Laboratory Results Laboratory Results WBC 12.25 K/ul (4.8-10.8) H 01/30/22 02:10 RBC 3.26 M/uL (3.93-5.22) L 01/30/22 02:10 Hgb 8.2 g/dl (12.0-16.0) L 01/30/22 02:10 Hct 28.3 % (34.1-44.9) L 01/30/22 02:10 MCV 86.8 fL (80.0-100.0) 01/30/22 02:10 MCH 25.2 pg (25.0-34.0) 01/30/22 02:10 MCHC 29.0 g/dL (32.0-36.0) L 01/30/22 02:10 RDW Std Deviation 66.4 fL (36.4-46.3) H 01/30/22 02:10 RDW Coeff of Chris 21.3 % (11.5-14.5) H 01/30/22 02:10 Plt Count 320 K/uL (130-400) 01/30/22 02:10 MPV 8.8 fL (9.4-12.3) L 01/30/22 02:10 Immature Gran % (Auto) 0.7 % 01/30/22 02:10 Neut % (Auto) 79.7 % 01/30/22 02:10 Lymph % (Auto) 6.5 % 01/30/22 02:10 [place] % (Auto) 9.1 % 01/30/22 02:10 Eos % (Auto) 3.6 % 01/30/22 02:10 Baso % (Auto) 0.4 % 01/30/22 02:10 Neut # (Auto) 9.75 K/uL (1.4-6.5) H 01/30/22 02:10 Lymph # (Auto) 0.80 K/uL (1.2-3.4) L 01/30/22 02:10 [place]ro # (Auto) 1.12 K/uL (0.24-0.82) H 01/30/22 02:10 Eos # (Auto) 0.44 K/uL (0-0.50) 01/30/22 02:10 Baso # (Auto) 0.05 K/uL (0-0.2) 01/30/22 02:10 Immature Gran # (Auto) 0.09 K/uL (0.00-0.02) H 01/30/22 02:10 Anisocytosis Present 01/30/22 02:10 PT 11.4 Seconds (9.0-12.0) 01/30/22 02:10 INR 1.1 (0.9-1.1) 01/30/22 02:10 APTT 29.3 Seconds (21.0-31.0) 01/30/22 02:10 PTT Ratio 1.1 01/30/22 02:10 VBG pH 7.37 (7.36-7.41) 01/30/22 02:27 VBG pCO2 48 mmHg (38-50) 01/30/22 02:27 VBG pO2 51 mmHg 01/30/22 02:27 VBG HCO3 28 mmol/L 01/30/22 02:27 VBG O2 Saturation 84.4 % 01/30/22 02:27 VBG Base Excess 1.7 mEq/L 01/30/22 02:27 Sodium 131 mmol/L (136-145) L 01/30/22 02:10 Potassium 5.6 mmol/L (3.5-5.1) H 01/30/22 02:10 Chloride 95 mmol/L (98-107) L 01/30/22 02:10 Carbon Dioxide 26 mmol/L (21-32) 01/30/22 02:10 Anion Gap 10 (3-11) 01/30/22 02:10 BUN 75 mg/dl (6-23) H 01/30/22 02:10 Creatinine 4.65 mg/dl (0.6-1.2) H* 01/30/22 02:10 Est Cr Clr Drug Dosing 9.2 ml/min 01/30/22 02:10 Est GFR ( Amer) 9.7 ml/min 01/30/22 02:10 Est GFR (Non-Af Amer) 8.4 ml/min 01/30/22 02:10 BUN/Creatinine Ratio 16.1 (10-20) 01/30/22 02:10 Glucose 69 mg/dl (70-99(Fasting)) L 01/30/22 02:10 Lactate < 0.2 mmol/L (0.4-2.0) L 01/30/22 04:05 Calcium 10.8 mg/dl (8.5-10.1) H 01/30/22 02:10 Total Bilirubin 0.3 mg/dl (0.2-1.0) 01/30/22 02:10 AST 17 U/L (13-39) 01/30/22 02:10 ALT 10 U/L (7-52) 01/30/22 02:10 Alkaline Phosphatase 88 U/L (34-104) 01/30/22 02:10 Troponin I High Sens 61.9 pg/ml (0-14) H* D 01/30/22 02:10 B-Natriuretic Peptide 1972 pg/ml (0-100) H 01/30/22 02:10 Total Protein 6.5 gm/dl (6.0-8.3) 01/30/22 02:10 Albumin 2.9 gm/dl (3.4-5.0) L 01/30/22 02:10 Globulin 3.6 gm/dl (2.5-4.0) 01/30/22 02:10 Albumin/Globulin Ratio 0.8 (0.9-2) L 01/30/22 02:10 SARS-CoV-2 (PCR) POSITIVE (Negative) A* 01/30/22 02:28 Influenza Type A (PCR) Negative (Neg) 01/30/22 02:28 Influenza Type B (PCR) Negative (Neg) 01/30/22 02:28 RSV (RT-PCR) Negative (Neg) 01/30/22 02:28 Code Status & VTE Plan VTE Prophylaxis Plan VTE Prophylaxis will be ordered: Yes PG Care Time/CCT Total # of Minutes Spent Total Time Spent with Patient: Total time spent is greater than 50% in coordination of care (as documented) at patient's floor/unit and/or counseling patient: Coding Level of Care Code 64471 Initial Inpt Care Lvl 3 Diagnoses Acute respiratory failure with hypoxia J96.01 COVID-19 U07.1 Elevated troponin R77.8 Chronic systolic CHF (congestive heart failure) I50.22 ESRD (end stage renal disease) on dialysis N18.6; Z99.2 Type 2 diabetes mellitus with insulin therapy E11.9; Z79.4 Dyslipidemia E78.5 Hypertension I10 Hypertension type: unspecified Anemia N18.6; D63.1; Z99.2 Anemia type: due to chronic kidney disease Chronic kidney disease stage: on chronic dialysis Depression F32.9 (1) Hypertension Hypertension type: unspecified Qualified Code(s): I10 - Essential (primary) hypertension (2) Anemia Anemia type: due to chronic kidney disease Chronic kidney disease stage: on chronic dialysis Qualified Code(s): N18.6 - End stage renal disease; D63.1 - Anemia in chronic kidney disease; Z99.2 - Dependence on renal dialysis
[2022-01-30] MEDS ORDERED: CARBOHYDRATES FOR HYPOGLYCEMIA PO PRN (07:19)
[2022-01-30] MEDS ORDERED: POLYETHYLENE (MIRALAX) 17 GM PACK PO PRN (07:19)
[2022-01-30] MEDS ORDERED: GLUCOSE 10 TAB/TUBE PO PRN (07:19)
[2022-01-30] MEDS ORDERED: DEXTROSE 50% 50 ML SYRINGE IV PRN (07:19)
[2022-01-30] MEDS ORDERED: GLUCOSE 40% GEL 15 GM TUBE PO PRN (07:19)
[2022-01-30] MEDS ORDERED: ONDANSETRON INJ 2 MG/ML 2 ML VIAL IV PRN (07:19)
[2022-01-30] MEDS ORDERED: ACETAMINOPHEN 500 MG TAB PO PRN (07:19)
[2022-01-30] MEDS ORDERED: GLUCAGON FOR INJ 1 MG VIAL SQ PRN (07:19)
[2022-01-30] MEDS: amLODIPine BESYLATE 5 MG TAB PO SCH ×2 (08:29→20:35)
[2022-01-30] MEDS: ASPIRIN 81 MG ECTAB PO SCH (08:29)
[2022-01-30] MEDS: HEPARIN SOD 5,000 UNIT/0.5 ML VIAL SQ SCH ×2 (08:30→20:36)
[2022-01-30] MEDS: INSULIN ASPART PER UNIT SC SCH ×4 (08:30→20:37)
[2022-01-30] MEDS: DOCUSATE SODIUM 100 MG CAP PO SCH ×2 (08:30→20:35)
[2022-01-30] MEDS: ISOSORBIDE MONO EXTENDED REL 60 MG TABCR PO SCH (08:42)
[2022-01-30] MEDS: VENLAFAXINE HCL XR 150 MG CAPXR PO SCH (08:43)
[2022-01-30] MEDS: hydrALAZINE TAB 50 MG TAB PO SCH ×3 (08:43→20:34)
[2022-01-30] MEDS: SEVELAMER HCL 800 MG TABLET PO SCH ×3 (08:44→17:54)
--- NOTE | 2022-01-30 10:50 | XRay Report ---
XR chest 1V portable HISTORY: 81 years-old Female Dyspnea acute shortness of breath COMPARISON: 01/24/2022 TECHNIQUE: Portable AP view of the chest FINDINGS: Cardiac silhouette is enlarged. Pulmonary vascular congestion with interstitial coarsening. Right gre ater left airspace opacities with small pleural effusions with right basilar hydropneumothorax there is mildly improved aeration of the left lung compared to the prior study. Status post resection of th e distal right clavicle. Degenerative changes of the shoulders and spine. IMPRESSION: 1. Cardiomegaly with persistent mixed interstitial and alveolar opacities suggestive of interstitial and alveolar pulmonary edema. There is mildly improved aeration of the left lung compared to the 01/24 exam. 2. Layering pleural effusions with right basilar hydropneumothorax redemonstrated. ACT 112: Negative or not required by law. The above report was generated using voice recognition software. It may contain grammatical, syntax o r spelling errors. Electronically signed by: All Osullivan M.D. 01/30/2022 10:48 AM
--- NOTE | 2022-01-30 11:24 | Nephrology Consultation ---
Date of Consultation January 30, 2022 Assessment & Plan (1) ESRD (end stage renal disease) on dialysis: (2) Acute respiratory failure with hypoxia: (3) Aortic stenosis: Plan End-stage renal disease on hemodialysis Friday, Friday, Friday, admitted with hypoxic respiratory failure with oxygen saturation less than 80% on room air. She has right-sided hydropneumothorax. respiratory status improved with nasal cannula oxygen. she did miss dialysis Friday and her last dialysis was last Friday. Potassium also noted to be elevated off of dialysis for 5 days. AV fistula has been functioning well. Although she is coming under her dry weight, it is quite possible that she lost more weight with repeated hospitalization. -- Plan for hemodialysis today with 2 K bath, will try to set new dry weight at 60 kg. -- Consult case management to set up home oxygen therapy -- Epogen 78270 units IV x1 dose during dialysis today. -- Left arm nephrology precaution, dose medications for GFR less than 10 Will follow Thank you for allowing me to participate in your patient's care. It was a pleasure to see Minerva. History of Present Illness Reason for Consultation: ESRD, on hemodialysis, admitted with hypoxic respiratory failure. Attending Physician: Adam Ramos MD History of Present Illness Mrs. Sonam Bolivar (Lucy) is a 81 y o f with PMH significant for ESRD on hemodialysis, T2DM, CAD, CHF with EF 45%, HTN, Graves Disease, and Depression admitted for with hypoxic respiratory failure. Nephrology consult requested to manage hemodialysis while inpatient. EMR records are reviewed in detail during patient's visit. Minerva presented to ER with persistent and progressive SOB and hypoxia over the last two days, 02 sat was in the 60's on room air at home. In ER patient hypoxic to 87% on RA which improved on supplemental O2 by NC 2L. She denies fever, chills, abdominal pain, nausea, vomiting, diarrhea or constipation. Denies chest pain.Labs showed Hb 8.2, K 5.6 and calcium 10.8. CXR showed cardiomegaly with persistent mixed interstitial and alveolar opacities suggestive of interstitial and alveolar pulmonary edema which mildly improved compared to CXR on 01/24/2022. There was layering pleural effusions with right basilar hydropneumothorax, which was stable compared to last x-ray. she was last hospitalized at [facility] from 01/14/22 - 01/20/22 for multilobar pneumonia treated with Zosyn. She was discharged home with home O2 but reports she has been unable to get it at home. She has been having repeated hospitalization over last 2 months with volume overload. Her estimated dry weight was decreased and has been maintained at 62 kg. She presented today at 61.2 kg although she missed dialysis Friday as she did not feel well and her last dialysis was last Friday. Last few hospitalization also complicated by repeated right-sided pleural effusion and hydropneumothorax, had chest tube before. During last admission she was evaluated by pulmonology and did not feel any intervention needed at that time. She was also evaluated by Cardiology considering her moderate to severe aortic stenosis but any intervention did not seem necessary at that point. Has End-stage renal disease secondary to diabetic nephropathy, currently on HD, MWF at [facility] under care of Dr. Schneider. EDW has been 62 kg, has well functioning L RC AVF which was placed by Dr. Gregg in October 2020. Shewas seen this morning. Has been doing well, no SOB on . Blood pressure well controlled. She does not make much urine anymore. Allergies Allergy/AdvReac Type Severity Reaction Status Date / Time codeine AdvReac Mild DOES NOT Verified 01/24/22 15:52 [address] THE [address] IT MAKES HER FEEL. Home Medications Medication Instructions Recorded Confirmed Type ascorbic acid (vitamin C) 500 mg 500 mg PO QAM 12/10/18 01/30/22 History tablet venlafaxine 150 mg 150 mg PO QAM 12/10/18 01/30/22 History capsule,extended release 24 hr cholecalciferol (vitamin D3) 25 50 mcg PO BID 12/27/20 01/30/22 History mcg (1,000 unit) capsule vitamins A,C,M-wgrs-pcsnoz 14,320 1 cap PO BID 06/14/21 01/30/22 History unit-226 mg-200 unit capsule (PreserVision AREDS) insulin aspart U-100 100 unit/mL 7 unit (0.07 mL) subcut TIDM #30 mL 06/22/21 01/30/22 Rx (3 mL) subcutaneous pen (Novolog Flexpen U-100 Insulin aspart) pen needle, diabetic 32 gauge x #400 ea 09/25/21 01/30/22 Rx 5/32" (BD Ultra-Fine [place] Pen Needle) betamethasone dipropionate 0.05 % 1 applic topical DIRECTED PRN 11/20/21 01/30/22 History topical cream Skin Irritation acetaminophen 500 mg tablet 1,000 mg PO Q8H PRN Pain 12/11/21 01/30/22 History (Tylenol Extra Strength) amlodipine 5 mg tablet 5 mg PO BID 12/11/21 01/30/22 History docusate sodium 100 mg capsule 100 mg PO BID 12/11/21 01/30/22 History menthol 0.44 %-zinc oxide 20.6 % 1 applic topical TID PRN NEEDED 12/11/21 01/30/22 History topical ointment (Calmoseptine) atorvastatin 80 mg tablet 80 mg PO HS #90 tabs 01/03/22 01/30/22 Rx hydralazine 50 mg tablet 100 mg PO TID #90 tabs 01/03/22 01/30/22 Rx isosorbide mononitrate 120 mg 120 mg PO QAM #90 tabs 01/03/22 01/30/22 Rx tablet,extended release 24 hr aspirin 81 mg tablet,delayed 81 mg PO DAILY #30 tabs 01/04/22 01/30/22 Rx release (Adult Aspirin Regimen) polyethylene glycol 3350 17 17 g PO DAILY PRN Constipation 01/04/22 01/30/22 Rx gram/dose oral powder #510 grams multivitamin 1 tab PO QAM 01/14/22 01/30/22 History insulin glargine 100 unit/mL (3 4 unit (0.04 mL) subcut QPM #15 mL 01/22/22 01/30/22 Rx mL) subcutaneous pen (Lantus Solostar U-100 Insulin) sevelamer HCl 800 mg tablet 800 mg PO TID #270 tabs 01/22/22 01/30/22 Rx Portable Oxygen #1 ea 01/24/22 01/30/22 Rx Patient History Medical History (Updated 01/30/22 @ 03:52 by Jhonny Kuhn DO) Anemia AV fistula LEFT CAD (coronary artery disease) Carotid artery disease less than 50% ICA stenosis per 08/2016 carotid duplex CHF (congestive heart failure) Chronic gastroesophageal reflux disease Chronic kidney disease on HD Dehiscence of wound Depression Diabetic peripheral neuropathy associated with type 2 diabetes mellitus Dialysis patient 3XWK (M/W/F) [facility]>FOLLOWED BY DR. HATHAWAY Dyslipidemia Gallstones Generalized osteoarthritis of multiple sites Graves disease H/O malignant neoplasm of uterine body Hiatal hernia History of kidney stones Hydropneumothorax Hypertension Irregular heart beat metoprolol for this per pt Lab test negative for COVID-19 virus Lack of motivation Macular degeneration Moderate calcific aortic stenosis Multinodular goiter (nontoxic) Multiple thyroid nodules Obesity Osteopenia Patella fracture Secondary hyperparathyroidism Sepsis Severe aortic stenosis Sleep apnea No device Type 2 diabetes mellitus with insulin therapy Surgical History H/O abdominoplasty H/O basal cell carcinoma excision H/O shoulder surgery Right History of appendectomy History of cataract surgery R/L History of colonoscopy History of esophagogastroduodenoscopy (EGD) History of hip surgery Closed intertrochanteric fracture of left femur 04/10/2021: 02/16/2021: Grade 4 view, MAC#3, ETT#7.0. No issues per anesthesia postop progress note. History of open reduction and internal fixation (ORIF) procedure right patella 05/18/2021: LMA#4 atraumatic + PNB. No issues per anesthesia postop progress note. History of tonsillectomy History of tooth extraction S/P complete hysterectomy Status post knee surgery 05/31/21 Dr. Heriberto Ly- Incision and Debridement Right Knee, Right Open Reduction Internal Fixation Patella, Hardware Removal(Right) Family History Father Diabetes Lung cancer Family history of diabetes mellitus Mother , in a home fire Hypertension Family history of diabetes mellitus Daughter Family history of diabetes mellitus Son Family history of diabetes mellitus Other No family history of adverse response to anesthesia Denies family history of Ovarian cancer Prostate cancer Myocardial infarction Breast cancer Colorectal cancer Social History Smoking Status: Former smoker Tobacco Type: Cigarettes Second Hand Exposure: No; Hx Alcohol Use: Yes Alcohol type: hard liquor Hx Substance Use: No Preferred Language: Kazakh Communication Ability: Effective Visual Impairment: No Limitations Hearing Ability: Normal [employer] Wafer Inspector Required: No Beliefs That Will Affect Care: None marital status: / Current Living Situation: Family Current Living Situation Comment: Son and Daughter in law. current occupational status: retired How many Children do You have: 4 Feels Safe at Home: Yes Safety Concerns Comment: unsteady at times Childhood Exposure to Second-Hand Smoke: Yes Dental Care, Regularly: No Physical Activity Frequency: Does not Exercise Seatbelt Use: always Sunscreen Use: No Assistive Devices: Bedside Commode, Hospital Bed, Slide Board and Wheelchair Review of Systems Review of Systems: detailed review of system was done and pertinent positives and negatives are mentioned above. Physical Exam Constitutional: WD/WN, vitals as above no acute distress Eyes: + anicteric sclerae Respiratory: Auscultation: + diminished lung sounds; no wheezes Cardiovascular: Rate/Rhythm: regular rate and regular rhythm Heart Sounds: + murmur Extremities: + AV fistula ( AV fistula with decent thrill and bruit); no edema Gastrointestinal (Abdomen): Inspection/Auscultation: abdomen normal to inspection and normal bowel sounds Percussion/Palpation: abdomen soft; abdomen nontender Musculoskeletal: Extremities: extremities normal to inspection Skin: no rashes Neurologic: no focal motor deficits Psychiatric: Orientation: alert and oriented x 3 Affect: euthymic affect Results & Data ([facility]) Vital Signs (Past 12 Hours) Vital Signs Temp Pulse Pulse Pulse Resp BP BP 01/30/22 09:20 76 01/30/22 07:22 36.7 C 80 17 130/47 L 01/30/22 06:30 91 H 22 01/30/22 06:00 89 18 128/89 01/30/22 05:30 88 14 01/30/22 05:00 84 20 128/53 L 01/30/22 04:00 81 18 147/72 H 01/30/22 04:25 01/30/22 04:12 85 18 01/30/22 03:00 74 20 135/58 L 01/30/22 02:30 87 16 01/30/22 02:31 01/30/22 02:14 36.7 C 86 24 138/52 L Pulse Ox O2 Del Method O2 Flow Rate 01/30/22 09:20 01/30/22 07:22 95 Nasal Cannula 2 01/30/22 06:30 Nasal Cannula 2 09/21/22 06:00 98 Nasal Cannula 2 01/30/22 05:30 99 Nasal Cannula 2 01/30/22 05:00 98 Nasal Cannula 2 01/30/22 04:00 95 Nasal Cannula 2 01/30/22 04:25 100 Nebulizer 01/30/22 04:12 97 Nasal Cannula 2 01/30/22 03:00 94 Nasal Cannula 2 01/30/22 02:30 96 Nasal Cannula 2 01/30/22 02:31 97 Nasal Cannula 2 01/30/22 02:14 98 Nasal Cannula 4 PG Care Time/CCT Total # of Minutes Spent Total Time Spent with Patient: Total time spent is greater than 50% in coordination of care (as documented) at patient's floor/unit and/or counseling patient: Coding Level of Care Code 43378 Initial Inpt Care Lvl 3 Diagnoses ESRD (end stage renal disease) on dialysis N18.6; Z99.2 Acute respiratory failure with hypoxia J96.01 Aortic stenosis I35.0
--- NOTE | 2022-01-30 12:17 | Electrocardiogram Report ---
Test Reason : Blood Pressure : / mmHG Vent. Rate : 091 BPM Atrial Rate : 091 BPM P-R Int : 162 ms QRS Dur : 096 ms QT Int : 362 ms P-R-T Axes : 073 -15 090 degrees QTc Int : 445 ms Poor data quality, interpretation may be adversely affected Normal sinus rhythm Left ventricular hypertrophy with repolarization abnormality Abnormal ECG When compared with ECG of 16-JAN-2022 05:36, ST no longer elevated in Anterior leads Inverted T waves have replaced nonspecific T wave abnormality in Lateral leads Confirmed by David Watkins ([id number]) on 01/30/2022 12:16:49 PM Referred By: REFERRED SELF Confirmed By:David Watkins
[2022-01-30] MEDS ORDERED: EPOETIN ALFA 10,000 UNITS/ML VIAL IV ONE (14:00)
--- NOTE | 2022-01-30 17:42 | History & Physical Bridge Note ---
Date of Service January 30, 2022 History & Physical Bridge Note Patient seen in afternoon during dialysis. Somewhat tired after it, but doing well overall. BP and HR stable. Continue plan as described in admission H&P.
[2022-01-30] MEDS ORDERED: ATORVASTATIN 40 MG TAB PO SCH (21:00)
[2022-01-31] MEDS: INSULIN ASPART PER UNIT SC SCH ×2 (08:57→12:30)
[2022-01-31] MEDS: DOCUSATE SODIUM 100 MG CAP PO SCH (08:57)
[2022-01-31] MEDS: SEVELAMER HCL 800 MG TABLET PO SCH ×2 (08:59→12:44)
[2022-01-31] MEDS: hydrALAZINE TAB 50 MG TAB PO SCH ×2 (08:59→12:45)
[2022-01-31] MEDS: ISOSORBIDE MONO EXTENDED REL 60 MG TABCR PO SCH (09:00)
[2022-01-31] MEDS: VENLAFAXINE HCL XR 150 MG CAPXR PO SCH (09:00)
[2022-01-31] MEDS: amLODIPine BESYLATE 5 MG TAB PO SCH (09:00)
[2022-01-31] MEDS: ASPIRIN 81 MG ECTAB PO SCH (09:00)
[2022-01-31] MEDS: HEPARIN SOD 5,000 UNIT/0.5 ML VIAL SQ SCH (09:01)
--- NOTE | 2022-01-31 10:28 | Nephrology Progress Note ---
Date of Service January 31, 2022 Assessment & Plan (1) ESRD (end stage renal disease) on dialysis: (2) Acute respiratory failure with hypoxia: (3) Aortic stenosis: Plan End-stage renal disease on hemodialysis Friday, Friday, Friday, admitted with hypoxic respiratory failure with oxygen saturation less than 80% on room air. She has right-sided hydropneumothorax. respiratory status improved with nasal cannula oxygen. she did miss dialysis Friday and her last dialysis was last Friday. Potassium also noted to be elevated off of dialysis for 5 days. AV fistula has been functioning well. Although she is coming under her dry weight, it is quite possible that she lost more weight with repeated hospitalization. Had hemodialysis yesterday, had 3 L UF. Weight in EMR is inaccurate. No volume overload. -- received Epogen 66088 units IV x1 dose during dialysis today. -- Left arm nephrology precaution, dose medications for GFR less than 10 Will follow Admission and Anticipated Discharge Date Admission Date: January 30, 2022 Subjective Minerva was seen and evaluated this morning. Overall doing well, no SOB. Had HD yesterday, had 3 L UF. BP, volume status acceptable. Review of Systems Review of Systems: detailed review of system was done and pertinent positives and negatives are mentioned above. Physical Exam Constitutional: WD/WN, vitals as above no acute distress Respiratory: Auscultation: + diminished lung sounds; no wheezes Cardiovascular: Rate/Rhythm: regular rate and regular rhythm Heart Sounds: + murmur Extremities: + AV fistula ( AV fistula with decent thrill and bruit); no edema Skin: no rashes Neurologic: no focal motor deficits Psychiatric: Orientation: alert and oriented x 3 Affect: euthymic affect Results & Data ([facility]) Vital Signs (Past 12 Hours) Vital Signs Temp Pulse Resp BP Pulse Ox O2 Del Method O2 Flow Rate 01/31/22 07:33 36.8 C 91 H 16 127/53 L 93 Nasal Cannula 2 01/31/22 03:01 36.9 C 94 H 16 123/64 95 Nasal Cannula 2 01/30/22 22:52 37.0 C 105 H 18 126/61 97 Nasal Cannula 2 01/30/22 23:16 Nasal Cannula 2 PG Care Time/CCT Total # of Minutes Spent Total Time Spent with Patient: Total time spent is greater than 50% in coordination of care (as documented) at patient's floor/unit and/or counseling patient: Coding Level of Care Code 92226 Subseq Hosp Care Lvl 2 Diagnoses ESRD (end stage renal disease) on dialysis N18.6; Z99.2 Acute respiratory failure with hypoxia J96.01 Aortic stenosis I35.0
--- NOTE | 2022-01-31 16:02 | Discharge Summary ---
Date of Service January 31, 2022 Admission HPI Per Admitting Provider Sonam Bolivar is a 81yo female with history of ESRD on HD M/W/F, HTN, HLP, DM, GERD, severe , recent Covid-19 infection presenting with persistent and progressive SOB and hypoxia - acutely worse over the last two days. Family reports saturations in the 60's on room air at home. Patient was recently hospitalized at [facility] from 01/14/22 - 01/20/22 for multilobar pneumonia for which she was treated with Zosyn. She was discharged home with home O2 but reports she has been unable to get it at home. She has been using her neighbor's extra O2 tank recently. She denies fever, chills, abdominal pain, nausea, vomiting, diarrhea or constipation. Denies chest pain. Family endorses occasional wheeze. Patient reports a persistent dry cough. Upon arrival to the ER patient hypoxic to 87% on room air. She was placed on supplemental O2 by NC 2L with improvement in saturation, presently 96% ER Course: Calcium gluconate Insulin/D50 Albuterol neb (for K) Principal Diagnosis Acute respiratory failure with hypoxia Discharge Exam The patient is awake, alert and oriented 3, well developed and well nourished, normocephalic and atraumatic, lying in bed and in no acute distress. HEENT--PERRL, EOMI, mucous membranes and oropharynx mildly dry Neck--supple. No JVD. No bruits. Thyroid normal, trachea midline, no adenopathy. Heart--normal S1 and S2. No murmurs, rubs or gallops. Lungs--clear bilaterally, no respiratory distress, no accessory muscle use. Abdomen--normal bowel sounds and soft. Mild epigastric and left sided abdominal pain Extremities--no cyanosis or clubbing. No edema. Dermatologic--normal skin turgor, normal color, no abnormal lymph nodes, no rash. Neurologic--cranial nerves II through XII grossly intact. Rheumatologic--normal range of motion. Psychiatric--normal affect. Discharge Data Allergies Allergy/AdvReac Type Severity Reaction Status Date / Time codeine AdvReac Mild DOES NOT Verified 01/24/22 15:52 LIKE THE WAY IT MAKES HER FEEL. Consultations 01/30/22 03:45 ED Decision to Admit Stat 01/30/22 07:19 Consult Nephrology Routine Hospital Course (1) Acute respiratory failure with hypoxia: Patient with acute hypoxic respiratory failure, saturation of 87% on arrival. CXR looks to be improved from prior. Most likely secondary to volume overload. Patient with history of CHF secondary to valvular heart disease, ESRD on HD - missed treatment on Friday. Covid is POSITIVE but has been so since last month, most likely persistent positive test rather than true infection or reinfection. -Clinically much improved after HD -Continue supplemental O2 as needed -Flutter and IS -Home oxygen has been set up (2) COVID-19: Patient had a negative Covid-19 on 12/11/21, was POSITIVE on 12/15/21 and continues to be positive on ER testing today. She reports a persistent dry cough but denies fever. Most likely persistent positive test rather than infection or reinfection -Will maintain isolation precautions for now until matter can be discussed with infection control (3) Elevated troponin: Patient denies chest pain. Some nonspecific ST changes on EKG. Patient has had persistent positive troponin in the past near today's value. Doubt cardiac ischemia -Telemetry monitoring -Repeat troponin in AM -Continue ASA, Atorvastatin (4) Chronic systolic CHF (congestive heart failure): Per echo 12/12/21 patient with mildly reduced LV function. LV is dilated with regional WMA. LA is dilated as well. Moderate AR, moderate to severe and moderate MR with elevated RVSP at 40-55 mmHg -Continue Isosorbide mononitrate -Continue hydralazine -Fluid removal with HD in AM Patient is largely anuric (5) ESRD (end stage renal disease) on dialysis: ESRD on HD q //. Patient missed session on Friday due to feeling ill. Possibly contributing to hypoxia/SOB due to volume overload. Electrolytes with hyperkalemia K=5.6, no acute EKG changes. Treated medically in the ER with insulin/D50 as well as Calcium and albuterol neb treatment. -Repeat chemistry Plan for HD -Continue Sevelamer (6) Type 2 diabetes mellitus with insulin therapy: Chronic. Low blood sugar of 69 in ER -Monitor -ISS (7) Dyslipidemia: Chronic -Continue Atorvastatin (8) Hypertension: Blood pressure mildly elevated at present -Continue Amlodipine, Isosorbide and Hydralazine -Monitor BP (9) Anemia: Near baseline -Monitor CBC (10) Depression: Chronic -Continue Venlafaxine 150mg po daily F/E/N - fluid removal with HD, monitor electrolytes, K treatment, AHA/Renal diet as tolerated Ppx - Heparin BID Code - Full per discussion with patient Dispo - Admit to medical with telemetry Total Time Total Time Spent Total Time Spent (In Minutes): 35 Discharge Plan Discharge Items Patient Disposition: Home - Home Health Services Reason For Visit: ACUTE HYPOXIC RESPIRATORY FAILURE Discharge Diagnosis: Acute Hypoxic Resp failure CHF Exacerbation Activity: Resume your previous activity Non-emergency contact: Primary Care Provider Call non-emergency contact if: you have any medication questions Follow-up/Referrals: David Lopez III, CRNP [Primary Care Provider] - 02/08/22 4:00 pm Diet: Regular Addtl Attending Provider Instructions: please make appointment to follow up with your pcp Pending Studies at Discharge: No Stand-Alone Forms: My Tangler, Smoking Cessation Medications and DC Order Prescriptions: New cefdinir 300 mg capsule 300 mg PO BID 5 Days Qty: 10 0RF Continued venlafaxine 150 mg capsule,extended release 24hr 150 mg PO QAM ascorbic acid (vitamin C) 500 mg tablet 500 mg PO QAM insulin aspart U-100 [Novolog Flexpen U-100 Insulin] 100 unit/mL (3 mL) insulin pen 7 unit subcut TIDM Qty: 30 3RF Label Comments: pt cant remember if she had insulin today Rx Instructions: Plus sliding scale 3-4 U at HS if > 250 (DME) pen needle, diabetic [BD Ultra-Fine [place] Pen Needle] 32 gauge x 5/32" n eedle See Rx Instructions .ROUTE .MEDSUPPLY Qty: 400 3RF Rx Instructions: use 4 needles daily aspirin [Adult Aspirin Regimen] 81 mg tablet,delayed release (DR/EC) 81 mg PO DAILY Qty: 30 11RF polyethylene glycol 3350 17 gram/dose powder 17 g PO DAILY PRN (Reason: Constipation) Qty: 510 11RF docusate sodium 100 mg capsule 100 mg PO BID Qty: 180 1RF hydralazine 50 mg tablet 100 mg PO TID Qty: 540 1RF sevelamer HCl 800 mg tablet 800 mg PO TID Qty: 270 1RF Rx Instructions: must administer with a meal/food isosorbide mononitrate 120 mg tablet extended release 24 hr 120 mg PO QAM Qty: 90 3RF Label Comments: "if she wrote it down I took it" atorvastatin 80 mg tablet 80 mg PO HS Qty: 90 3RF (DME) Portable Oxygen Misc See Rx Instructions .MEDSUPPLY Qty: 1 0RF Rx Instructions: Oxygen 2 liters continuous via nasal cannula on exertion with portable concentrator. PATTI 99 insulin glargine [Lantus Solostar U-100 Insulin] 100 unit/mL (3 mL) insulin pen 4 unit subcut QPM Qty: 15 1RF Rx Instructions: Changed by Dr. Mcnair betamethasone dipropionate 0.05 % cream 1 applic topical DIRECTED PRN (Reason: Skin Irritation) cholecalciferol (vitamin D3) 25 mcg (1,000 unit) capsule 50 mcg PO BID PreserVision AREDS [id number]-aq-[id number] Capsule 1 cap PO BID amlodipine 5 mg tablet 5 mg PO BID Rx Instructions: TAKE 1 TABLET BY MOUTH TWICE DAILY acetaminophen [Tylenol Extra Strength] 500 mg Tablet 1,000 mg PO Q8H PRN (Reason: Pain) menthol-zinc oxide [Calmoseptine] 0.44-20.6 % ointment 1 applic TOPICAL TID PRN (Reason: NEEDED) multivitamin Tablet 1 tab PO QAM Discharge Orders: Discharge Order (Routine); Ordered 01/31/22 Ordered By: Rajan Worrell Admission Data Admit Date/Time: 01/30/22 04:32 Attending Provider: Rajan Worrell Admit Provider: Jennifer Fuller Primary Care Provider: David Lopez III Other Providers: Jennifer Fuller ; Melinda Shipman ; [facility] Other Interventions: Discharge Summary Assessment (RN) Last Done: 01/31/22 13:23 Coding Level of Care Code D/C DAY MANAGEMENT >30 MINS Diagnoses Acute respiratory failure with hypoxia J96.01 COVID-19 U07.1 Elevated troponin R77.8 Chronic systolic CHF (congestive heart failure) I50.22 ESRD (end stage renal disease) on dialysis N18.6; Z99.2 Type 2 diabetes mellitus with insulin therapy E11.9; Z79.4 Dyslipidemia E78.5 Hypertension I10 Hypertension type: unspecified Anemia N18.6; D63.1; Z99.2 Anemia type: due to chronic kidney disease Chronic kidney disease stage: on chronic dialysis Depression F32.9 Time Spent (min) 35
== END 2022-01-31 13:45 | disposition home health service (06) | DRG 640 ==
LOC: ED 01:58 → 2W 04:32 → INTOOBSV 04:32 → SUATTDRO 04:32 → 2W 06:46

== ENCOUNTER 2022-02-06 00:44 | Observation (INO) ==
[2022-02-06] MEDS ORDERED: ACETAMINOPHEN 325 MG TAB PO STA (01:24)
[2022-02-06 01:37] LABS: Anisocytosis Present; Basophils # (auto) 0.06 K/uL (0-0.2); Basophils % (auto) 0.6 %; Eosinophils # (auto) 0.37 K/uL (0-0.50); Eosinophils % (auto) 3.4 %; Hematocrit (blood only) 33.6 % (34.1-44.9); Hemoglobin 9.3 g/dl (12.0-16.0); Hypochromasia Present; Immature Granulocytes # (auto) 0.14 K/uL (0.00-0.02); Immature Granulocytes % (auto) 1.3 %; Lymphocytes # (auto) 0.53 K/uL (1.2-3.4); Lymphocytes % (auto) 4.9 %; Mean Corpuscular Hemoglobin 24.7 pg (25.0-34.0); Mean Corpuscular Hgb Conc 27.7 g/dL (32.0-36.0); Mean Corpuscular Volume 89.4 fL (80.0-100.0); Mean Platelet Volume 8.7 fL (9.4-12.3); Monocytes # (auto) 1.15 K/uL (0.24-0.82); Monocytes % (auto) 10.7 %; Neutrophils # (auto) 8.48 K/uL (1.4-6.5); Neutrophils % (auto) 79.1 %; Platelet Count 320 K/uL (130-400); RDW Coefficient of Variation 20.5 % (11.5-14.5); RDW Standard Deviation 67.3 fL (36.4-46.3); Red Blood Count 3.76 M/uL (3.93-5.22); White Blood Count 10.73 K/ul (4.8-10.8)
--- NOTE | 2022-02-06 01:42 | Emergency Department Note ---
Impression & Plan Bilateral pleural effusion, Hypoglycemia, Breathlessness ED Provider Note CHIEF COMPLAINT: Shortness of breath, chills and sweats HISTORY OF PRESENT ILLNESS: This 81-year-old female patient presents to the emergency department with complaints of chills, sweats, difficulty breathing in the setting of a recent hospital stay for pneumonia. The patient is hemodialysis dependent and has a history of severe aortic stenosis. The patient also has a history of diabetes, ischemic cardiomyopathy and congestive heart failure. Patient denies any chest pain but does describe a heaviness in the ch est. REVIEW OF SYSTEMS: A review of systems was performed with positives and pertinent negatives listed in the history of present illness. 10 systems were reviewed and are otherwise negative. ALLERGIES: see below MEDICATIONS: see below PMH: see below SOCIAL HISTORY: see below DDx: Reactive airway disease, pneumonia, pneumothorax, COPD, CHF, infections, cardiac ischemia, pulmonary embolism, musculoskeletal, gastrointestinal, as well as other pathologies. PHYSICAL EXAM: Vital signs reviewed. General: Chronically ill-appearing 81-year-old female, in no significant distress. HEENT: No scleral icterus, PERRLA, neck supple. Dry mucous membranes. Nasal cannula oxygen in place Cardiovascular: Regular rate and rhythm, no extra sounds. Pulmonary: Clear to auscultation bilaterally, normal work of breathing. Abdomen: Soft, nontender, nondistended, positive bowel sounds. Musculoskeletal: Atraumatic, minimal peripheral edema. Right [id number] amputation Neurologic: Patient awake alert and oriented x 3, speech is clear Skin: Warm, diaphoretic along the hair, neck and back. No rash. EMERGENCY DEPARTMENT COURSE/MDM: Patient was evaluated and appeared to be in no significant distress. Patient's vital signs remained stable on 2 L nasal cannula oxygen. IV fluids were initiated. Chest x-ray reveals persistent consolidations bilaterally. Laboratory work reveals a mildly elevated troponin at 30.7 however it did not change had a 2-hour repeat. This never significantly lower than the patient's previous troponins during her admission last week. CT imaging of the chest was performed without contrast and reveals a persistent right hydropneumothorax. The effusion appears to be slightly bigger than it did on previous exam. Patient was also noted to be markedly hypoglycemic to 30. She was given 1 amp of D50 with significant improvement. IV hydration was continued. The patient's case was discussed with the hospitalist service. I feel the patient would best be served by monitoring closely both glucose and respiratory status. Case was discussed with the hospitalist service who will evaluate the patient for admission and further management. Patient is aware of the plan and agrees. MONITORING: An order for cardiac monitoring was placed and the patient is noted to be in a normal sinus rhythm at 79 beats per minute. RADIOLOGY: X-ray to my interpretation reveals bilateral pulmonary infiltrates/effusions. No significant change from previous. PreliminaryFindingsOnly See Final Report For Complete Findings CT CHEST Without Contrast: Comparison 12/18/2021 Small hydropneumothorax on the right. The amount of air is decreased but the amount of fluid is increased from the prior study. Small left-sided pleural effusion with pleural thickening is unchanged. Rounded atelectasis in the lower lobes with diffuse ground glass throughout the lungs bi laterally. Atypical infection could cause this appearance. Radiologist: Shankar Henderson MD Study ready at 03:02 and initial results transmitted at 03:20 EKG:sinus rhythm with premature supraventricular complexes. QTc 449, normal ST segments. When compared to Jan 30, 2022, premature ventricular complexes are new. DISPOSITION: Admit Past Med/Surg History Medical History Anemia AV fistula LEFT CAD (coronary artery disease) Carotid artery disease less than 50% ICA stenosis per 08/2016 carotid duplex CHF (congestive heart failure) Chronic gastroesophageal reflux disease Chronic kidney disease on HD Dehiscence of wound Depression Diabetic peripheral neuropathy associated with type 2 diabetes mellitus Dialysis patient 3XWK (M/W/F) [facility]>FOLLOWED BY DR. HATHAWAY Dyslipidemia Gallstones Generalized osteoarthritis of multiple sites Graves disease H/O malignant neoplasm of uterine body Hiatal hernia History of kidney stones Hydropneumothorax Hypertension Irregular heart beat metoprolol for this per pt Lab test negative for COVID-19 virus Lack of motivation Macular degeneration Moderate calcific aortic stenosis Multinodular goiter (nontoxic) Multiple thyroid nodules Obesity Osteopenia Patella fracture Secondary hyperparathyroidism Sepsis Severe aortic stenosis Sleep apnea No device Type 2 diabetes mellitus with insulin therapy Surgical History H/O abdominoplasty H/O basal cell carcinoma excision H/O shoulder surgery Right History of appendectomy History of cataract surgery R/L History of colonoscopy History of esophagogastroduodenoscopy (EGD) History of hip surgery Closed intertrochanteric fracture of left femur 04/10/2021: 02/16/2021: Grade 4 view, MAC#3, ETT#7.0. No issues per anesthesia postop progress note. History of open reduction and internal fixation (ORIF) procedure right patella 05/18/2021: LMA#4 atraumatic + PNB. No issues per anesthesia postop progress note. History of tonsillectomy History of tooth extraction S/P complete hysterectomy Status post knee surgery 05/31/21 Dr. Heriberto Ly- Incision and Debridement Right Knee, Right Open Reduction Internal Fixation Patella, Hardware Removal(Right) Family History Father Diabetes Lung cancer Family history of diabetes mellitus Mother , in a home fire Hypertension Family history of diabetes mellitus Daughter Family history of diabetes mellitus Son Family history of diabetes mellitus Other No family history of adverse response to anesthesia Denies family history of Ovarian cancer Prostate cancer Myocardial infarction Breast cancer Colorectal cancer Social History Smoking Status: Never smoker Tobacco Type: Cigarettes Second Hand Exposure: No; Hx Alcohol Use: Yes Alcohol type: hard liquor Hx Substance Use: No Preferred Language: Cuban Communication Ability: Effective Visual Impairment: No Limitations Hearing Ability: Normal Custodian Blood Bank Required: No Beliefs That Will Affect Care: None marital status: / Current Living Situation: Family Current Living Situation Comment: Son and Daughter in law. current occupational status: retired How many Children do You have: 4 Feels Safe at Home: Yes Safety Concerns Comment: unsteady at times Childhood Exposure to Second-Hand Smoke: Yes Dental Care, Regularly: No Physical Activity Frequency: Does not Exercise Seatbelt Use: always Sunscreen Use: No Assistive Devices: Bedside Commode, Oxygen - Continuous, Walker and Wheelchair Allergies Allergies Allergy/AdvReac Type Severity Reaction Status Date / Time codeine AdvReac Mild DOES NOT Verified 01/24/22 15:[address] IT MAKES HER FEEL. Home Meds Home Medications Medication Instructions Recorded Confirmed ascorbic acid (vitamin C) 500 mg 500 mg PO QAM 12/10/18 02/06/22 tablet venlafaxine 150 mg 150 mg PO QAM 12/10/18 02/06/22 capsule,extended release 24 hr cholecalciferol (vitamin D3) 25 50 mcg PO BID 12/27/20 02/06/22 mcg (1,000 unit) capsule vitamins A,C,X-hkjx-mkdasa 14,320 1 cap PO BID 06/14/21 02/06/22 unit-226 mg-200 unit capsule (PreserVision AREDS) betamethasone dipropionate 0.05 % 1 applic topical DIRECTED PRN 11/20/21 02/06/22 topical cream Skin Irritation acetaminophen 500 mg tablet 1,000 mg PO Q8H PRN Pain 12/11/21 02/06/22 (Tylenol Extra Strength) amlodipine 5 mg tablet 5 mg PO BID 12/11/21 02/06/22 menthol 0.44 %-zinc oxide 20.6 % 1 applic topical TID PRN NEEDED 12/11/21 02/06/22 topical ointment (Calmoseptine) multivitamin 1 tab PO QAM 01/14/22 02/06/22 Previous Rx's Medication Instructions Recorded insulin aspart U-100 100 unit/mL 7 unit (0.07 mL) subcut TIDM #30 mL 06/22/21 (3 mL) subcutaneous pen (Novolog Flexpen U-100 Insulin aspart) pen needle, diabetic 32 gauge x #400 ea 09/25/21" (BD Ultra-Fine [place] Pen Needle) atorvastatin 80 mg tablet 80 mg PO HS #90 tabs 01/03/22 isosorbide mononitrate 120 mg 120 mg PO QAM #90 tabs 01/03/22 tablet,extended release 24 hr aspirin 81 mg tablet,delayed 81 mg PO DAILY #30 tabs 01/04/22 release (Adult Aspirin Regimen) polyethylene glycol 3350 17 17 g PO DAILY PRN Constipation 01/04/22 gram/dose oral powder #510 grams insulin glargine 100 unit/mL (3 4 unit (0.04 mL) subcut QPM #15 mL 01/22/22 mL) subcutaneous pen (Lantus Solostar U-100 Insulin) Portable Oxygen #1 ea 01/24/22 docusate sodium 100 mg capsule 100 mg PO BID #180 caps 01/31/22 hydralazine 50 mg tablet 100 mg PO TID #540 tabs 01/31/22 sevelamer HCl 800 mg tablet 800 mg PO TID #270 tabs 01/31/22 Results & Data (ED) Vital Signs Vital Signs - 24 hr 02/06/22 00:51 02/06/22 00:49 02/06/22 01:24 Temperature 36.4 C L 36.6 C Temperature Source Oral Axillary Pulse Rate 79 Pulse Rate [Apical] Pulse Rhythm Regular Pulse Rhythm [Apical] Pulse Strength Normal Pulse Strength [Apical] Respiratory Rate 18 Respiratory Effort / Characteristics Non-Labored Respiratory Depth Normal Respiratory Pattern Regular Blood Pressure 129/51 L Blood Pressure [Right Arm] Blood Pressure Mean 77 Blood Pressure Mean [Right Arm] Blood Pressure Position Lying Pulse Oximetry 98 98 Oxygen Delivery Method Nasal Cannula Nasal Cannula Oxygen Flow Rate 2 2 Sepsis Recent Fever Within 48 Hours No Sepsis New/Unexplained Change in Mental Status N/A Sepsis Action Taken by Nursing No Action Required 02/06/22 02:00 Temperature Temperature Source Pulse Rate Pulse Rate [Apical] 82 Pulse Rhythm Pulse Rhythm [Apical] Regular Pulse Strength Pulse Strength [Apical] Normal Respiratory Rate 19 Respiratory Effort / Characteristics Non-Labored Respiratory Depth Normal Respiratory Pattern Regular Blood Pressure Blood Pressure [Right Arm] 126/55 L Blood Pressure Mean Blood Pressure Mean [Right Arm] 78 Blood Pressure Position Pulse Oximetry 100 Oxygen Delivery Method Nasal Cannula Oxygen Flow Rate 2 Sepsis Recent Fever Within 48 Hours Sepsis New/Unexplained Change in Mental Status Sepsis Action Taken by Correction Medications Current Medication List: was personally reviewed by me Laboratory Data Attestation: I reviewed the patient's lab results. Result diagrams: 02/06/22 01:05 02/06/22 01:05 Lab Results 02/06/22 02/06/22 02/06/22 Range/Units 01:05 01:05 01:05 WBC 10.73 (4.8-10.8) K/ul RBC 3.76 L (3.93-5.22) M/uL Hgb 9.3 L (12.0-16.0) g/dl Hct 33.6 L (34.1-44.9) % MCV 89.4 (80.0-100.0) fL MCH 24.7 L (25.0-34.0) pg MCHC 27.7 L (32.0-36.0) g/dL RDW Std Deviation 67.3 H (36.4-46.3) fL RDW Coeff of Chris 20.5 H (11.5-14.5) % Plt Count 320 (130-400) K/uL MPV 8.7 L (9.4-12.3) fL Immature Gran % (Auto) 1.3 % Neut % (Auto) 79.1 % Lymph % (Auto) 4.9 % Toole % (Auto) 10.7 % Eos % (Auto) 3.4 % Baso % (Auto) 0.6 % Neut # (Auto) 8.48 H (1.4-6.5) K/uL Lymph # (Auto) 0.53 L (1.2-3.4) K/uL Toole # (Auto) 1.15 H (0.24-0.82) K/uL Eos # (Auto) 0.37 (0-0.50) K/uL Baso # (Auto) 0.06 (0-0.2) K/uL Immature Gran # (Auto) 0.14 H (0.00-0.02) K/uL Hypochromasia Present Anisocytosis Present Sodium 137 (136-145) mmol/L Potassium 4.3 (3.5-5.1) mmol/L Chloride 99 (98-107) mmol/L Carbon Dioxide 33 H (21-32) mmol/L Anion Gap 5 (3-11) BUN 33 H (6-23) mg/dl Creatinine 2.73 H (0.6-1.2) mg/dl Est Cr Clr Drug Dosing 16.0 ml/min Est GFR ( Amer) 18.4 ml/min Est GFR (Non-Af Amer) 15.9 ml/min BUN/Creatinine Ratio 12.1 (10-20) Glucose 30 L* (70-99(Fasting)) mg/dl POC Glucose (70-99) mg/dl Calcium 11.3 H (8.5-10.1) mg/dl Total Bilirubin 0.3 (0.2-1.0) mg/dl AST 15 (13-39) U/L ALT 10 (7-52) U/L Alkaline Phosphatase 87 (34-104) U/L Troponin I High Sens (0-14) pg/ml Total Protein 6.8 (6.0-8.3) gm/dl Albumin 3.1 L (3.4-5.0) gm/dl Globulin 3.7 (2.5-4.0) gm/dl Albumin/Globulin Ratio 0.8 L (0.9-2) Procalcitonin (0-0.5) ng/ml TSH 3.276 (0.300-4.500) uIu/ml SARS-CoV-2, RNA, NAAT (NEGATIVE) 02/06/22 02/06/22 02/06/22 Range/Units 01:05 01:05 01:07 WBC (4.8-10.8) K/ul RBC (3.93-5.22) M/uL Hgb (12.0-16.0) g/dl Hct (34.1-44.9) % MCV (80.0-100.0) fL MCH (25.0-34.0) pg MCHC (32.0-36.0) g/dL RDW Std Deviation (36.4-46.3) fL RDW Coeff of Chris (11.5-14.5) % Plt Count (130-400) K/uL MPV (9.4-12.3) fL Immature Gran % (Auto) % Neut % (Auto) % Lymph % (Auto) % Toole % (Auto) % Eos % (Auto) % Baso % (Auto) % Neut # (Auto) (1.4-6.5) K/uL Lymph # (Auto) (1.2-3.4) K/uL Toole # (Auto) (0.24-0.82) K/uL Eos # (Auto) (0-0.50) K/uL Baso # (Auto) (0-0.2) K/uL Immature Gran # (Auto) (0.00-0.02) K/uL Hypochromasia Anisocytosis Sodium (136-145) mmol/L Potassium (3.5-5.1) mmol/L Chloride (98-107) mmol/L Carbon Dioxide (21-32) mmol/L Anion Gap (3-11) BUN (6-23) mg/dl Creatinine (0.6-1.2) mg/dl Est Cr Clr Drug Dosing ml/min Est GFR ( Amer) ml/min Est GFR (Non-Af Amer) ml/min BUN/Creatinine Ratio (10-20) Glucose (70-99(Fasting)) mg/dl POC Glucose (70-99) mg/dl Calcium (8.5-10.1) mg/dl Total Bilirubin (0.2-1.0) mg/dl AST (13-39) U/L ALT (7-52) U/L Alkaline Phosphatase (34-104) U/L Troponin I High Sens 30.7 H D (0-14) pg/ml Total Protein (6.0-8.3) gm/dl Albumin (3.4-5.0) gm/dl Globulin (2.5-4.0) gm/dl Albumin/Globulin Ratio (0.9-2) Procalcitonin 1.24 H (0-0.5) ng/ml TSH (0.300-4.500) uIu/ml SARS-CoV-2, RNA, NAAT NEGATIVE (NEGATIVE) 02/06/22 02/06/22 Range/Units 02:09 03:28 WBC (4.8-10.8) K/ul RBC (3.93-5.22) M/uL Hgb (12.0-16.0) g/dl Hct (34.1-44.9) % MCV (80.0-100.0) fL MCH (25.0-34.0) pg MCHC (32.0-36.0) g/dL RDW Std Deviation (36.4-46.3) fL RDW Coeff of Chris (11.5-14.5) % Plt Count (130-400) K/uL MPV (9.4-12.3) fL Immature Gran % (Auto) % Neut % (Auto) % Lymph % (Auto) % Toole % (Auto) % Eos % (Auto) % Baso % (Auto) % Neut # (Auto) (1.4-6.5) K/uL Lymph # (Auto) (1.2-3.4) K/uL Toole # (Auto) (0.24-0.82) K/uL Eos # (Auto) (0-0.50) K/uL Baso # (Auto) (0-0.2) K/uL Immature Gran # (Auto) (0.00-0.02) K/uL Hypochromasia Anisocytosis Sodium (136-145) mmol/L Potassium (3.5-5.1) mmol/L Chloride (98-107) mmol/L Carbon Dioxide (21-32) mmol/L Anion Gap (3-11) BUN (6-23) mg/dl Creatinine (0.6-1.2) mg/dl Est Cr Clr Drug Dosing ml/min Est GFR ( Amer) ml/min Est GFR (Non-Af Amer) ml/min BUN/Creatinine Ratio (10-20) Glucose (70-99(Fasting)) mg/dl POC Glucose 156 H 137 H (70-99) mg/dl Calcium (8.5-10.1) mg/dl Total Bilirubin (0.2-1.0) mg/dl AST (13-39) U/L ALT (7-52) U/L Alkaline Phosphatase (34-104) U/L Troponin I High Sens (0-14) pg/ml Total Protein (6.0-8.3) gm/dl Albumin (3.4-5.0) gm/dl Globulin (2.5-4.0) gm/dl Albumin/Globulin Ratio (0.9-2) Procalcitonin (0-0.5) ng/ml TSH (0.300-4.500) uIu/ml SARS-CoV-2, RNA, NAAT (NEGATIVE) Administered Medications Discontinued Medications Acetaminophen (Acetaminophen 325 Mg Tab) 650 mg PO NOW STA Stop: 02/06/22 01:25 Last Admin: 02/06/22 01:33 Dose: 650 mg Documented By: OAM Dextrose (Dextrose 50% 50 Ml Syringe) 50 ml IV NOW ONE Stop: 02/06/22 01:48 Last Admin: 02/06/22 01:51 Dose: 50 ml Documented By: SW Blood Pressure Blood Pressure Findings: Elevated blood pressure Blood Pressure Disposition: further management by hospitalist Discharge Plan Visit Data Chief Complaint: Illness Stated Complaint: Illness ED Provider: Aracelis Reyes Discharge Problem: Bilateral pleural effusion, Hypoglycemia, Breathlessness Patient Disposition: Admitted As Inpatient Discharge Instructions Interventions: ED Discharge Assessment Last Done: 02/06/22 05:18
[2022-02-06 01:47] LABS: Albumin Globulin Ratio 0.8 (0.9-2); Albumin Level 3.1 gm/dl (3.4-5.0); BUN Creatinine Ratio 12.1 (10-20); Bilirubin,Total 0.3 mg/dl (0.2-1.0); Calcium 11.3 mg/dl (8.5-10.1); Est GFR (African American) 18.4 ml/min; Est GFR (Non-African American) 15.9 ml/min; Globulin 3.7 gm/dl (2.5-4.0); Potassium 4.3 mmol/L (3.5-5.1); Total Protein 6.8 gm/dl (6.0-8.3)
[2022-02-06] MEDS ORDERED: DEXTROSE 50% 50 ML SYRINGE IV ONE (01:47)
--- NOTE | 2022-02-06 03:25 | History & Physical Report ---
Date of Service February 06, 2022 Assessment & Plan (1) Hypoglycemia: Plan: This is a 81-year-old female with a history of HFrEF and severe , ESRD on dialysis, bilateral pleural effusions with right-sided trapped lung (tapped in 12/2020 - transudative bilaterally; again 12/2021, negative for malignancy) s/p chest tube placemenet, type 2 diabetes, dyslipidemia, hypertension, chronic anemia, depression who presented to [facility] for evaluation of shortness of breath and chest pressure, subsequently found to be diaphoretic, tremulous and with a BSG of 30 on arrival. #Suspected Symptomatic Hypoglycemia / DM - Patient and daughter report sudden-onset SOB and CP accompanied by diaphoresis and tremulousness ; on arrival to [facility] found to have BSG 30 --> CP and reported EMS value of ~80 is somewhat odd; however, other symptoms and reported improvement following D50 here does suggest this was likely hypoglycemic? --> Daughter reports she has had other episodes of hypoglycemia, and during last admission, was found to be hypoglycemia at 68 - Home regimen: Lantus 4U qHS / NovoLog SSI t.i.d. (daughter thinks SSI 1:40) -- has CGM - A1c in 6.1% in 01/2022 - Hypoglycemic protocol on-call - Continue home Lantus 4U qHS --> May benefit from uptitration of this as an outpatient to reduce need for SSI at home - Hold initiation of SSI at this time until glycemic picture is clarified; patient has had several episodes of hypoglycemia - q4h BSG checks for now, change to ACHS when appropriate (2) Bilateral pleural effusion: Plan: #Bilateral Pleural Effusions - Based on multiple thoracenteses since 12/2020, appear transudative without evidence of malignancy at the time they were tapped (last 12/2021 on RIGHT) - CT Chest: "Small hydropneumothorax on the right. The amount of air is decreased but the amount of fluid is increased from prior study. Small left- sided pleural effusion with pleural thickening is unchanged. Rounded atelectasis in the lower lobe with diffuse groundglass throughout the lungs bilaterally. Atypical infection could cause this appearance" - Likely multifactorial: ESRD, CHF, and possibly worsening - [place] [facility] [place]. Kadri --> Did bedside US on 01/24/22: Small R pleural effusion with fibrinous materal / Small-moderate L pleural effusion with B-lines --> Lower suspicion at that time that R-sided effusion was secondary to infectious etiology - Consult radiology for thoracentesis while here, if possible --> If patient cannot get a TAVR soon or is not a candidate, may wish to consider PleurX catheter (3) Chest pain: Plan: #Chest Pain / Elevated Troponin - Acute-onset chest pain associated with SOB, diaphoresis, tremulousness - Initial troponin on arrival minimally elevated 30.7 - lower than last admission --> Will check repeat --> Patient does have chronically elevated troponin in setting of ESRD - No repolarization or conduction abnormalities on ECG - Effusion-related / R-sided lung re-expansion? Anxiety in setting of hypoglycemia and SOB? Lower suspicion for ACS/PE but considered - Monitor on telemetry - Continue ASA, atorvastatin (4) Shortness of breath: Plan: #Shortness of Breath - Chronically on 2L with acute exacerbation DOA. No increased O2 requirement. Comfortable on exam without treatment. Etiology no exactly clear of the event prior -- ?hypoglycemia - Suspect primarily due to HFrEF and ESRD primarily - Lower suspicion for interval development of atypical pneumonia or empyema since last admission given clinical appearance and lack of symptoms -- but considered admit work-up --> Add procalcitonin, CRP ; interpretation may be complicated by ESRD --> Consider initiation of broad-spectrum ABX pending clinical course - No findings at present consistent with PE; would require V/Q scan - Issues as outlined below (5) Chronic systolic CHF (congestive heart failure): Plan: #HFrEF / Moderate-Severe - TTE 12/12/21: Mildly reduced LV function 45-50%, dilated with RWMAs, moderate AR, moderate-severe and moderate MR with elevated MVSP at 40-45 - Continue home medications: hydralazine, isosorbide - Pleural effusions noted; otherwise, does not appear to be overtly volume overloaded - Patient scheduled to see Cardiology as an outpatient on Friday to discuss valve replacement(s) --> Given the importance of this and unclear disposition/needed length of stay, consult cardiology while here to aid with candidacy for the above/TAVR (6) ESRD (end stage renal disease) on dialysis: Plan: #ESRD - Receives HD on //, has been attending as scheduled - Cr on admission 2.73 (from last value of 4.65 earlier this month) - Renal diet. Continue sevelamer - Will consult nephrology while here given need for regular dialysis -- may also benefit from EPO - Monitor lytes (7) Hypertension: Plan: #HLD/HTN - Continue atorvastatin, amlodipine, isosorbide, hydralazine (8) Anemia: Plan: #Anemia - Above baseline for patient in setting of ESRD - May benefit from dose of Epogen while here (9) Depression: Plan: #Major Depressive Disorder - Convinue venlafaxine Plan Diet: Renal/CC PPX: Heparin q8 Dispo: MS/T Code: FULL CODE History of Present Illness Primary Care Provider: David Lopez, III, ELLIOTT This is a 81-year-old female with a history of HFrEF and severe , ESRD on dialysis, bilateral pleural effusions with right-sided trapped lung (tapped in 12/2020 - transudative bilaterally; again 12/2021, negative for malignancy) s/p chest tube placemenet, type 2 diabetes, dyslipidemia, hypertension, chronic anemia, depression who presented to [facility] for evaluation of shortness of breath and chest pressure. Patient says that she was at her baseline level of health since discharge until around 11 PM earlier this evening, when she had acute onset shortness of breath, central chest pressure (like a elephant is sitting on my chest "); her daughter also said she appeared diaphoretic, pale, and "shaky." Her continuous glucose monitor read 80 at this time, per daughter, and EMS glucometer also read something similar. Daughter said that her mentation was not normal at this time; denied any unilateral weakness. No seizure activity. She was brought to the emergency department for further evaluation via EMS. At that time, she was found to have a blood sugar of 30. D50 was given and subsequently increased back to the 100s. Per daughter, insulin is administered by family 3 times a day on a sliding scale; she believes the correction factor is 30. She also receives Lantus 4 units nightly. Her BSGs earlier on the day prior to admission were apparently >300, and she reprotedly received ~3-4U. Neither of these have changed recently. Of note, patient was recently admitted and discharged on 01/31/2022 for acute respiratory failure with hypoxia likely secondary to volume overload, subsequently found to have right-sided hydrothorax; thought is that her symptoms were due to from missed dialysis primarily. Medications reviewed and include Tylenol, amlodipine, vitamin C, aspirin, atorvastatin, vitamin D, Dulcolax, hydralazine, insulin aspart 7 units 3 times daily, insulin glargine 4 units every afternoon, isosorbide mononitrate, MiraLAX, sevelamer, venlafaxine. In the ED, patient was found to have largely normal vital signs; she was saturating 98% on her baseline 2L. Admission labs demonstrated high normal white count 10.7, chronic anemia 9.3, relative neutrophilia/lymphopenia/monocytosis, chemistries revealing BUN 33/creatinine 2.73 (improved from creatinine 4.65 on 01/30), admission blood sugar 30, calcium 11.3, normal LFTs, TSH 3.2. COVID-negative. CTA-Chest STAT-Rad: "Small hydropneumothorax on the right. The amount of air is decreased but the amount of fluid is increased from prior study. Small left-sided pleural effusion with pleural thickening is unchanged. Rounded atelectasis in the lower lobe with diffuse groundglass throughout the lungs bilaterally. Atypical infection could cause this appearance". She was given an amp of D50. Allergies Allergy/AdvReac Type Severity Reaction Status Date / Time codeine AdvReac Mild DOES NOT Verified 01/24/22 15:52 [address] THE WAY IT MAKES HER FEEL. Home Medications Medication Instructions Recorded Confirmed Type ascorbic acid (vitamin C) 500 mg 500 mg PO QAM 12/10/18 02/06/22 History tablet venlafaxine 150 mg 150 mg PO QAM 12/10/18 02/06/22 History capsule,extended release 24 hr cholecalciferol (vitamin D3) 25 50 mcg PO BID 12/27/20 02/06/22 History mcg (1,000 unit) capsule vitamins A,C,A-xvib-ygnulr 14,320 1 cap PO BID 06/14/21 02/06/22 History unit-226 mg-200 unit capsule (PreserVision AREDS) insulin aspart U-100 100 unit/mL 7 unit (0.07 mL) subcut TIDM #30 mL 02/11/22 09/28/22 Rx (3 mL) subcutaneous pen (Novolog Flexpen U-100 Insulin aspart) pen needle, diabetic 32 gauge x #400 ea 09/25/21 02/06/22 Rx " (BD Ultra-Fine [place] Pen Needle) betamethasone dipropionate 0.05 % 1 applic topical DIRECTED PRN 11/20/21 02/06/22 History topical cream Skin Irritation acetaminophen 500 mg tablet 1,000 mg PO Q8H PRN Pain 12/11/21 02/06/22 History (Tylenol Extra Strength) amlodipine 5 mg tablet 5 mg PO BID 12/11/21 02/06/22 History menthol 0.44 %-zinc oxide 20.6 % 1 applic topical TID PRN NEEDED 12/11/21 02/06/22 History topical ointment (Calmoseptine) atorvastatin 80 mg tablet 80 mg PO HS #90 tabs 01/03/22 02/06/22 Rx isosorbide mononitrate 120 mg 120 mg PO QAM #90 tabs 01/03/22 02/06/22 Rx tablet,extended release 24 hr aspirin 81 mg tablet,delayed 81 mg PO DAILY #30 tabs 01/04/22 02/06/22 Rx release (Adult Aspirin Regimen) polyethylene glycol 3350 17 17 g PO DAILY PRN Constipation 01/04/22 02/06/22 Rx gram/dose oral powder #510 grams multivitamin 1 tab PO QAM 01/14/22 02/06/22 History insulin glargine 100 unit/mL (3 4 unit (0.04 mL) subcut QPM #15 mL 01/22/22 02/06/22 Rx mL) subcutaneous pen (Lantus Solostar U-100 Insulin) Portable Oxygen #1 ea 01/24/22 02/06/22 Rx docusate sodium 100 mg capsule 100 mg PO BID #180 caps 01/31/22 02/06/22 Rx hydralazine 50 mg tablet 100 mg PO TID #540 tabs 01/31/22 02/06/22 Rx sevelamer HCl 800 mg tablet 800 mg PO TID #270 tabs 01/31/22 02/06/22 Rx Past Med/Surg History Medical History Anemia AV fistula LEFT CAD (coronary artery disease) Carotid artery disease less than 50% ICA stenosis per 08/2016 carotid duplex CHF (congestive heart failure) Chronic gastroesophageal reflux disease Chronic kidney disease on HD Dehiscence of wound Depression Diabetic peripheral neuropathy associated with type 2 diabetes mellitus Dialysis patient 3XWK (M/W/F) [facility] Dyslipidemia Gallstones Generalized osteoarthritis of multiple sites Graves disease H/O malignant neoplasm of uterine body Hiatal hernia History of kidney stones Hydropneumothorax Hypertension Irregular heart beat metoprolol for this per pt Lab test negative for COVID-19 virus Lack of motivation Macular degeneration Moderate calcific aortic stenosis Multinodular goiter (nontoxic) Multiple thyroid nodules Obesity Osteopenia Patella fracture Secondary hyperparathyroidism Sepsis Severe aortic stenosis Sleep apnea No device Type 2 diabetes mellitus with insulin therapy Surgical History H/O abdominoplasty H/O basal cell carcinoma excision H/O shoulder surgery Right History of appendectomy History of cataract surgery R/L History of colonoscopy History of esophagogastroduodenoscopy (EGD) History of hip surgery Closed intertrochanteric fracture of left femur 04/10/2021: 02/16/2021: Grade 4 view, MAC#3, ETT#7.0. No issues per anesthesia postop progress note. History of open reduction and internal fixation (ORIF) procedure right patella 05/18/2021: LMA#4 atraumatic + PNB. No issues per anesthesia postop progress note. History of tonsillectomy History of tooth extraction S/P complete hysterectomy Status post knee surgery 05/31/21 Dr. Heriberto Ly- Incision and Debridement Right Knee, Right Open Reduction Internal Fixation Patella, Hardware Removal(Right) Family History Father Diabetes Lung cancer Family history of diabetes mellitus Mother , in a home fire Hypertension Family history of diabetes mellitus Daughter Family history of diabetes mellitus Son Family history of diabetes mellitus Other No family history of adverse response to anesthesia Denies family history of Ovarian cancer Prostate cancer Myocardial infarction Breast cancer Colorectal cancer Social History (Reviewed 02/06/22 @ 16:32 by UZAIR Cline Smoking Status: Never smoker Tobacco Type: Cigarettes Second Hand Exposure: No; Hx Alcohol Use: No Hx Substance Use: No Preferred Language: Latvian Communication Ability: Effective Visual Impairment: No Limitations Hearing Ability: Normal Furnace Door Tender Required: No Beliefs That Will Affect Care: None marital status: / Current Living Situation: Family Current Living Situation Comment: Son and daughter in law current occupational status: retired How many Children do You have: 4 Feels Safe at Home: Yes Safety Concerns Comment: unsteady at times Childhood Exposure to Second-Hand Smoke: Yes Dental Care, Regularly: No Physical Activity Frequency: Does not Exercise Seatbelt Use: always Sunscreen Use: No Assistive Devices: Oxygen - Continuous and Wheelchair Review of Systems Review of Systems: as per HPI Physical Exam Physical Exam: General: 81-year old female who is alert, oriented, and appears in no acute distress. HEENT: NCAT. - Eyes - Sclera are white, anicteric, and without injection. - Mouth - MMM - Neck - supple, no appreciable JVD Cardiac: Normal rate and regular rhythm; S1 and S2 present with no murmurs, rubs, or gallops. Pulmonary: Good respiratory effort with symmetric expansion of the chest. No use of accessory muscles. Lungs demonstrated bibasilar crackles. Abdominal: Normoactive bowel sounds. Abdomen was soft, nondistended, and non- tender to palpation. Extremities: Upper and lower extremities are warm and well perfused. No peripheral edema in the LEFT lower extremity; R knee amputation appreciated. Psych: Well-developed, well-nourished, appropriately dressed for occasion. Behavior is cooperative and appropriate. Affect is WNL. Insight is appropriate. Results & Data Results & Data ([facility]) Vital Signs (Past 12 Hours) Vital Signs Temp Pulse Pulse Resp BP BP Pulse Ox 02/06/22 02:00 82 19 126/55 L 100 02/06/22 01:24 36.6 C 02/06/22 00:49 98 02/06/22 00:51 36.4 C L 79 18 129/51 L 98 O2 Del Method O2 Flow Rate 02/06/22 02:00 Nasal Cannula 2 02/06/22 01:24 02/06/22 00:49 Nasal Cannula 2 02/06/22 00:51 Nasal Cannula 2 Supervising Physician Co-Signing Physician Notes Attending addendum: I have physically seen this patient, have supervised the medical residents activities, and agree with the H&P unless as otherwise noted. Assessment and Plan: Hypoglycemia- Patient reports her glucometer was reading in the 80s at home, but she recorded as 30 on blood testing in the ED Modify insulin dosing as noted Bilateral pleural effusions- CT demonstrating increasing pleural effusions, right greater than left For dialysis later on the day today, but unlikely to make a significant impact Would likely benefit from thoracentesis, with ultimate placement of Pleurx catheter while waiting for valvular replacement surgery Elevated troponin/chest pain/significant valvular disease- Consult cardiology, for further assessment, she has been told in the past that she would likely need to have a valve replacement, and has a tentative cardiology appointment on 02/07 ESRD on HD- Due for dialysis Consult nephrology Remaining orders and notations as noted (1) Anemia Anemia type: due to chronic kidney disease Chronic kidney disease stage: on chronic dialysis Qualified Code(s): N18.6 - End stage renal disease; D63.1 - Anemia in chronic kidney disease; Z99.2 - Dependence on renal dialysis (2) Hypertension Hypertension type: unspecified Qualified Code(s): I10 - Essential (primary) hypertension
[2022-02-06] MEDS ORDERED: POLYETHYLENE (MIRALAX) 17 GM PACK PO PRN (05:11)
[2022-02-06] MEDS ORDERED: GLUCOSE 10 TAB/TUBE PO PRN (05:11)
[2022-02-06] MEDS ORDERED: GLUCAGON FOR INJ 1 MG VIAL SQ PRN (05:11)
[2022-02-06] MEDS ORDERED: DEXTROSE 50% 50 ML SYRINGE IV PRN (05:11)
[2022-02-06] MEDS ORDERED: CARBOHYDRATES FOR HYPOGLYCEMIA PO PRN (05:11)
[2022-02-06] MEDS ORDERED: GLUCOSE 40% GEL 15 GM TUBE PO PRN (05:11)
[2022-02-06] MEDS: HEPARIN SOD 5,000 UNIT/0.5 ML VIAL SQ SCH ×3 (07:06→22:13)
--- NOTE | 2022-02-06 07:46 | XRay Report ---
XR chest 1V portable CLINICAL HISTORY: weakness COMPARISON STUDY: Chest radiograph January 30, 2022. Chest CT December 18, 2021. FINDINGS: A right hydropneumothorax is again noted. This was shown on prior exam. Associated moderate amount of right pleural fluid is noted. There is a small left pleural effusion. Interstitial thicken ing in bilateral airspace opacities have slightly decreased since prior exam. Cardiomediastinal silho uette is stable. Degenerative changes of both shoulders are incidentally noted. IMPRESSION: 1. Persistent interstitial thickening, slightly decreased since exam. This favors pulmonary edema. 2. Redemonstration of a right hydropneumothorax. Moderate right and small left pleural effusions with associated bibasilar opacities. ACT 112: Negative or not required by law. Electronically signed by: Emigdio Ibrahim M.D. 02/06/2022 7:44 AM
[2022-02-06] MEDS ORDERED: EPOETIN ALFA 10,000 UNITS/ML VIAL IV SCH (08:00)
[2022-02-06] MEDS: SEVELAMER HCL 800 MG TABLET PO SCH ×3 (08:34→17:46)
[2022-02-06] MEDS: ASPIRIN 81 MG ECTAB PO SCH (08:35)
[2022-02-06] MEDS: amLODIPine BESYLATE 5 MG TAB PO SCH ×2 (08:35→21:43)
[2022-02-06] MEDS: DOCUSATE SODIUM 100 MG CAP PO SCH ×2 (08:35→21:44)
[2022-02-06] MEDS: ISOSORBIDE MONO EXTENDED REL 60 MG TABCR PO SCH (08:37)
[2022-02-06] MEDS: VENLAFAXINE HCL XR 150 MG CAPXR PO SCH (08:37)
[2022-02-06] MEDS: hydrALAZINE TAB 50 MG TAB PO SCH ×3 (08:37→21:43)
--- NOTE | 2022-02-06 10:41 | Nephrology Consultation ---
Date of Consultation February 06, 2022 Assessment & Plan (1) End-stage renal disease on hemodialysis: (2) Chronic systolic CHF (congestive heart failure): (3) Aortic stenosis: (4) Bilateral pleural effusion: (5) Hypoglycemia: Plan ESRD on HD MWF. Orders for HD today entered into the EHR and reviewed with dialysis nurse. Plan of care reviewed with Sonam and her daughter in the ICU this AM. Sonam was seen and evaluated during hemodialysis. UF goal 1-2 L as tolerated. Outpatient Rx: MWF 4 hrs, 180 optiflux, 400/800, 2K. EDW 60 kg. L forearm AVF has been functioning well. Clearances have been at goal. Medications are currently appropriately dosed for kidney dysfunction. Anemia is chronic and stable. Maintained on Micera as outpatient. Epogen 17922 units today with HD. Renal diet and 1 L daily fluid restriction. Sevelamer QAC for hyperphosphatemia. Hold amlodipine and hydralazine prior to HD. History of Present Illness Reason for Consultation: ESRD on HD Requesting Physician: Jose Anaya Attending Physician: Jose Anaya History of Present Illness Sonam Bolivar (Lucy) is a 81 year-old female with DM, CAD, aortic stenosis, hypertension, Grave's disease with hypothyroidism, obesity, and ESRD. ESRD attributed to DKD. Minerva is maintained on hemodialysis MWF at [facility] under my care. Outpatient Rx is MWF 4 hours, 180 optiflux, Qb 400 via L forearm AVF. EDW 60 kg. She completed her last treatment on Friday without complications. Minerva felt well leaving dialysis. Unfortunately, she was referred to [facility] yesterday after developing acute weakness and trembling at home. This is her 3rd hospitalization this month. She has had repeated hospitalizations for failure at home, notably hypoxia and difficulty breathing. Minerva was admitted to [facility] earlier this month with hypoxia attributed to volume overload and a right pleural effusion. She tested positive for COVID during the admission. Right pleural effusion was transudative by Light's criteria. Culture and cytology were both negative. She had a pneumothorax following thoracentesis. Pigtail catheter removed prior to discharge. Minerva has had a notable decline in health and functional status over the past year and multiple recent hospitalizations. She suffered several debilitating injuries from falls. ORIF of a IC femoral fracture performed in February. She presented in May for ORIF of a patella fracture. During surgery a seroma was drained. There was concern for infection ultimately leading to revision ORIF with plate and screw placement. Further complications included wound dehiscence and disruption of the patellar tendon. She was then admitted in June with wound infection and necrosis requiring removal of hardware. Ultimately, in July, she required a right AKA. Minerva has a well functioning L RC AVF which was placed by Dr. Gregg in October 2020. She has chronic anemia for which she is maintained on Micera and has required PRBC transfusion support as recently as February. I met with Minerva and her daughter (Tiffany) in the ER this morning. Minerva was also seen and evaluated during hemodialysis. Allergies Allergy/AdvReac Type Severity Reaction Status Date / Time codeine AdvReac Mild DOES NOT Verified 01/24/22 15:[address] IT MAKES HER FEEL. Home Medications Medication Instructions Recorded Confirmed Type ascorbic acid (vitamin C) 500 mg 500 mg PO QAM 12/10/18 02/06/22 History tablet venlafaxine 150 mg 150 mg PO QAM 12/10/18 02/06/22 History capsule,extended release 24 hr cholecalciferol (vitamin D3) 25 50 mcg PO BID 12/27/20 02/06/22 History mcg (1,000 unit) capsule vitamins A,C,T-dsra-gtremk 14,320 1 cap PO BID 06/14/21 02/06/22 History unit-226 mg-200 unit capsule (PreserVision AREDS) insulin aspart U-100 100 unit/mL 7 unit (0.07 mL) subcut TIDM #30 mL 06/22/21 02/06/22 Rx (3 mL) subcutaneous pen (Novolog Flexpen U-100 Insulin aspart) pen needle, diabetic 32 gauge x #400 ea 09/25/21 02/06/22 Rx 5/32" (BD Ultra-Fine [place] Pen Needle) betamethasone dipropionate 0.05 % 1 applic topical DIRECTED PRN 11/20/21 02/06/22 History topical cream Skin Irritation acetaminophen 500 mg tablet 1,000 mg PO Q8H PRN Pain 12/11/21 02/06/22 History (Tylenol Extra Strength) amlodipine 5 mg tablet 5 mg PO BID 12/11/21 02/06/22 History menthol 0.44 %-zinc oxide 20.6 % 1 applic topical TID PRN NEEDED 12/11/21 02/06/22 History topical ointment (Calmoseptine) atorvastatin 80 mg tablet 80 mg PO HS #90 tabs 01/03/22 02/06/22 Rx isosorbide mononitrate 120 mg 120 mg PO QAM #90 tabs 01/03/22 02/06/22 Rx tablet,extended release 24 hr aspirin 81 mg tablet,delayed 81 mg PO DAILY #30 tabs 01/04/22 02/06/22 Rx release (Adult Aspirin Regimen) polyethylene glycol 3350 17 17 g PO DAILY PRN Constipation 01/04/22 02/06/22 Rx gram/dose oral powder #510 grams multivitamin 1 tab PO QAM 01/14/22 02/06/22 History insulin glargine 100 unit/mL (3 4 unit (0.04 mL) subcut QPM #15 mL 01/22/22 02/06/22 Rx mL) subcutaneous pen (Lantus Solostar U-100 Insulin) Portable Oxygen #1 ea 01/24/22 02/06/22 Rx docusate sodium 100 mg capsule 100 mg PO BID #180 caps 01/31/22 02/06/22 Rx hydralazine 50 mg tablet 100 mg PO TID #540 tabs 01/31/22 02/06/22 Rx sevelamer HCl 800 mg tablet 800 mg PO TID #270 tabs 01/31/22 02/06/22 Rx Patient History Medical History Anemia AV fistula LEFT CAD (coronary artery disease) Carotid artery disease less than 50% ICA stenosis per 08/2016 carotid duplex CHF (congestive heart failure) Chronic gastroesophageal reflux disease Chronic kidney disease on HD Dehiscence of wound Depression Diabetic peripheral neuropathy associated with type 2 diabetes mellitus Dialysis patient 3XWK (M/W/F) [facility]>FOLLOWED BY DR. HATHAWAY Dyslipidemia Gallstones Generalized osteoarthritis of multiple sites Graves disease H/O malignant neoplasm of uterine body Hiatal hernia History of kidney stones Hydropneumothorax Hypertension Irregular heart beat metoprolol for this per pt Lab test negative for COVID-19 virus Lack of motivation Macular degeneration Moderate calcific aortic stenosis Multinodular goiter (nontoxic) Multiple thyroid nodules Obesity Osteopenia Patella fracture Secondary hyperparathyroidism Sepsis Severe aortic stenosis Sleep apnea No device Type 2 diabetes mellitus with insulin therapy Surgical History H/O abdominoplasty H/O basal cell carcinoma excision H/O shoulder surgery Right History of appendectomy History of cataract surgery R/L History of colonoscopy History of esophagogastroduodenoscopy (EGD) History of hip surgery Closed intertrochanteric fracture of left femur 04/10/2021: 02/16/2021: Grade 4 view, MAC#3, ETT#7.0. No issues per anesthesia postop progress note. History of open reduction and internal fixation (ORIF) procedure right patella 05/18/2021: LMA#4 atraumatic + PNB. No issues per anesthesia postop progress note. History of tonsillectomy History of tooth extraction S/P complete hysterectomy Status post knee surgery 05/31/21 Dr. Heriberto Ly- Incision and Debridement Right Knee, Right Open Reduction Internal Fixation Patella, Hardware Removal(Right) Family History Father Diabetes Lung cancer Family history of diabetes mellitus Mother , in a home fire Hypertension Family history of diabetes mellitus Daughter Family history of diabetes mellitus Son Family history of diabetes mellitus Other No family history of adverse response to anesthesia Denies family history of Ovarian cancer Prostate cancer Myocardial infarction Breast cancer Colorectal cancer Social History Smoking Status: Never smoker Tobacco Type: Cigarettes Second Hand Exposure: No; Hx Alcohol Use: Yes Alcohol type: hard liquor Hx Substance Use: No Preferred Language: Bulgarian Communication Ability: Effective Visual Impairment: No Limitations Hearing Ability: Normal 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 current occupational status: retired How many Children do You have: 4 Feels Safe at Home: Yes Safety Concerns Comment: unsteady at times Childhood Exposure to Second-Hand Smoke: Yes Dental Care, Regularly: No Physical Activity Frequency: Does not Exercise Seatbelt Use: always Sunscreen Use: No Assistive Devices: Bedside Commode, Oxygen - Continuous, Walker and Wheelchair Review of Systems Review of Systems: All systems reviewed & are unremarkable except as noted in HPI & below Physical Exam Constitutional: well developed and + frail appearing; no acute distress Eyes: + anicteric sclerae; no corneal abnormality ENMT: Mouth: no oral mucosal abnormality and oral mucous membranes not dry Neck: normal visual inspection and trachea midline Respiratory: normal respiratory effort Auscultation: + rhonchi (R>>L) Cardiovascular: Rate/Rhythm: regular rate Heart Sounds: normal S1, normal S2 and + murmur Extremities: + AV fistula; no edema Musculoskeletal: Extremities: + lower leg abnormality Right (AKA); no cyanosis and no clubbing Skin: normal turgor; no lesions Neurologic: Motor/Sensory: no tremor and no asterixis Psychiatric: Orientation: alert and oriented x 3 Results & Data ([facility]) Vital Signs (Past 12 Hours) Vital Signs Temp Pulse Pulse Pulse Resp BP BP 02/06/22 10:00 76 113/44 L 02/06/22 09:50 85 117/51 L 02/06/22 09:39 36.7 C 88 02/06/22 08:33 89 18 132/57 L 02/06/22 06:00 76 18 133/58 L 02/06/22 04:00 84 20 131/61 02/06/22 02:00 82 19 126/55 L 02/06/22 01:24 36.6 C 02/06/22 00:49 02/06/22 00:51 36.4 C L 79 18 129/51 L Pulse Ox O2 Del Method O2 Flow Rate 02/06/22 10:00 02/06/22 09:50 02/06/22 09:39 02/06/22 08:33 96 Nasal Cannula 2 02/06/22 06:00 100 Nasal Cannula 2 02/06/22 04:00 100 Nasal Cannula 2 02/06/22 02:00 100 Nasal Cannula 2 02/06/22 01:24 02/06/22 00:49 98 Nasal Cannula 2 02/06/22 00:51 98 Nasal Cannula 2 Laboratory Results Laboratory Results - last 24 hr 02/06/22 02/06/22 02/06/22 01:05 01:05 01:05 WBC 10.73 RBC 3.76 L Hgb 9.3 L Hct 33.6 L MCV 89.4 MCH 24.7 L MCHC 27.7 L RDW Std Deviation 67.3 H RDW Coeff of Chris 20.5 H Plt Count 320 MPV 8.7 L Immature Gran % (Auto) 1.3 Neut % (Auto) 79.1 Lymph % (Auto) 4.9 Kendall % (Auto) 10.7 Eos % (Auto) 3.4 Baso % (Auto) 0.6 Neut # (Auto) 8.48 H Lymph # (Auto) 0.53 L Kendall # (Auto) 1.15 H Eos # (Auto) 0.37 Baso # (Auto) 0.06 Immature Gran # (Auto) 0.14 H Hypochromasia Present Anisocytosis Present Sodium 137 Potassium 4.3 Chloride 99 Carbon Dioxide 33 H Anion Gap 5 BUN 33 H Creatinine 2.73 H Est Cr Clr Drug Dosing 16.0 Est GFR ( Amer) 18.4 Est GFR (Non-Af Amer) 15.9 BUN/Creatinine Ratio 12.1 Glucose 30 L* POC Glucose Calcium 11.3 H Total Bilirubin 0.3 AST 15 ALT 10 Alkaline Phosphatase 87 Troponin I High Sens Total Protein 6.8 Albumin 3.1 L Globulin 3.7 Albumin/Globulin Ratio 0.8 L Procalcitonin TSH 3.276 SARS-CoV-2, RNA, NAAT 02/06/22 02/06/22 02/06/22 01:05 01:05 01:07 WBC RBC Hgb Hct MCV MCH MCHC RDW Std Deviation RDW Coeff of Chris Plt Count MPV Immature Gran % (Auto) Neut % (Auto) Lymph % (Auto) Kendall % (Auto) Eos % (Auto) Baso % (Auto) Neut # (Auto) Lymph # (Auto) Kendall # (Auto) Eos # (Auto) Baso # (Auto) Immature Gran # (Auto) Hypochromasia Anisocytosis Sodium Potassium Chloride Carbon Dioxide Anion Gap BUN Creatinine Est Cr Clr Drug Dosing Est GFR ( Amer) Est GFR (Non-Af Amer) BUN/Creatinine Ratio Glucose POC Glucose Calcium Total Bilirubin AST ALT Alkaline Phosphatase Troponin I High Sens 30.7 H D Total Protein Albumin Globulin Albumin/Globulin Ratio Procalcitonin 1.24 H TSH SARS-CoV-2, RNA, NAAT NEGATIVE 02/06/22 02/06/22 02/06/22 02:09 03:28 04:45 WBC RBC Hgb Hct MCV MCH MCHC RDW Std Deviation RDW Coeff of Chris Plt Count MPV Immature Gran % (Auto) Neut % (Auto) Lymph % (Auto) Kendall % (Auto) Eos % (Auto) Baso % (Auto) Neut # (Auto) Lymph # (Auto) Kendall # (Auto) Eos # (Auto) Baso # (Auto) Immature Gran # (Auto) Hypochromasia Anisocytosis Sodium Potassium Chloride Carbon Dioxide Anion Gap BUN Creatinine Est Cr Clr Drug Dosing Est GFR ( Amer) Est GFR (Non-Af Amer) BUN/Creatinine Ratio Glucose POC Glucose 156 H 137 H Calcium Total Bilirubin AST ALT Alkaline Phosphatase Troponin I High Sens 30.7 H Total Protein Albumin Globulin Albumin/Globulin Ratio Procalcitonin TSH SARS-CoV-2, RNA, NAAT 02/06/22 08:15 WBC RBC Hgb Hct MCV MCH MCHC RDW Std Deviation RDW Coeff of Chris Plt Count MPV Immature Gran % (Auto) Neut % (Auto) Lymph % (Auto) Kendall % (Auto) Eos % (Auto) Baso % (Auto) Neut # (Auto) Lymph # (Auto) Kendall # (Auto) Eos # (Auto) Baso # (Auto) Immature Gran # (Auto) Hypochromasia Anisocytosis Sodium Potassium Chloride Carbon Dioxide Anion Gap BUN Creatinine Est Cr Clr Drug Dosing Est GFR ( Amer) Est GFR (Non-Af Amer) BUN/Creatinine Ratio Glucose POC Glucose 148 H Calcium Total Bilirubin AST ALT Alkaline Phosphatase Troponin I High Sens Total Protein Albumin Globulin Albumin/Globulin Ratio Procalcitonin TSH SARS-CoV-2, RNA, NAAT Diagnostic Findings CT chest wo con FINDINGS: Lungs and pleura: Stable right hydropneumothorax, somewhat decreased in size with a smaller gaseous component compared to the prior exam. Stable left pleural effusion. Bilateral atelectasis is seen. There are a few pulmonary nodules including a 3 mm nodule in the left apex. Scattered solid and groundglass opacities and mosaic attenuation are seen. Partial calcification of collapse of the right lower lobe is unchanged. Heart and pericardium: Cardiomegaly is seen with biatrial enlargement. The aortic valve is calcified. Vessels: Severe atherosclerotic changes in the aorta and coronary arteries. Mediastinum and michael: Numerous mediastinal lymph nodes are seen measuring up to 11 mm in diameter. Chest wall and lower neck: Numerous calcified thyroid nodules are seen. Abdomen: Unremarkable. Bones: Degenerative changes in the thoracic spine. Ankylosis of numerous thoracic vertebrae again seen. IMPRESSION: 1. Interval increased fluid component of the right hydropneumothorax. Stable left pleural effusion. There is associated atelectasis. 2. Groundglass and airspace opacities are favored to represent infectious/inflammatory process. Follow-up to resolution is recommended. Lymphadenopathy is likely reactive. 3. Previously noted pneumomediastinum has resolved. 4. Numerous thyroid nodules are seen which have been previously evaluated by ultrasound. PG Care Time/CCT Total # of Minutes Spent Total Time Spent with Patient: Total time spent is greater than 50% in coordination of care (as documented) at patient's floor/unit and/or counseling patient: Coding Level of Care Code 89867 Inpt Consult Level 4 Diagnoses End-stage renal disease on hemodialysis N18.6; Z99.2 Chronic systolic CHF (congestive heart failure) I50.22 Aortic stenosis I35.0 Bilateral pleural effusion J90 Hypoglycemia E16.2
--- NOTE | 2022-02-06 10:42 | CT Scan Report ---
CT chest diagnostic wo con CLINICAL HISTORY: PNA, dialysis, SOB TECHNIQUE: Multidetector row helical CT of the chest was performed. Coronal and sagittal reformations were obtained. Automated dose lowering techniques and/or adjustment according to patient size were u tilized for this exam. CT DOSE: 277.01 mGy.cm Comparison: Comparison is made to CT chest 12/18/2021 FINDINGS: Lungs and pleura: Stable right hydropneumothorax, somewhat decreased in size with a smaller gaseous c omponent compared to the prior exam. Stable left pleural effusion. Bilateral atelectasis is seen. The re are a few pulmonary nodules including a 3 mm nodule in the left apex. Scattered solid and groundgl ass opacities and mosaic attenuation are seen. Partial calcification of collapse of the right lower l obe is unchanged. Heart and pericardium: Cardiomegaly is seen with biatrial enlargement. The aortic valve is calcified. Vessels: Severe atherosclerotic changes in the aorta and coronary arteries. Mediastinum and michael: Numerous mediastinal lymph nodes are seen measuring up to 11 mm in diameter. Chest wall and lower neck: Numerous calcified thyroid nodules are seen. Abdomen: Unremarkable. Bones: Degenerative changes in the thoracic spine. Ankylosis of numerous thoracic vertebrae again see n. IMPRESSION: 1. Interval increased fluid component of the right hydropneumothorax. Stable left pleural effusion. There is associated atelectasis. 2. Groundglass and airspace opacities are favored to represent infectious/inflammatory process. Foll ow-up to resolution is recommended. Lymphadenopathy is likely reactive. 3. Previously noted pneumomediastinum has resolved. 4. Numerous thyroid nodules are seen which have been previously evaluated by ultrasound. ACT 112: Negative or not required by law. Electronically signed by: Juno Vyas M.D. 02/06/2022 10:41 AM
--- NOTE | 2022-02-06 13:24 | Cardiology Consultation ---
Date of Consultation February 06, 2022 Assessment & Plan (1) Heart failure with mid-range ejection fraction: 2. 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 Aortic stenosismoderate to severe. Mild AI 4. Mitral regurgitationmoderate to severe 5. End-stage renal disease on dialysis 6. Recurrent pleural effusions/hydropneumothorax 7. Insulin-dependent diabetes 8. Post right AKA 9. Anemia 10. Pulmonary hypertension - moderate to severe Complex patient with numerous comorbidities and multiple recent recurrent hospitalizations for respiratory failure in the setting of recurrent pleural effusion/hydropneumothorax. Presently patient comfortable, tolerating dialysis. No evidence to suggest recurrent presentations secondary to ACS. Patient's prior echocardiogram from 12/2021 reviewed and compared to prior echo from 06/2021. LV now mildly dilated and LV function has declined from 06/2021. Aortic stenosis does not appear severe (?low flow). Mitral regurgitation (?secondary) is significantly worse. At this point severity of aortic/mitral valve disease unclear as well as the contribution of valve disease to her recurrent presentations. We discussed catheter-based interventions for severe valve disease, TAVR versus MitraClip. If found to have severe symptomatic valve disease she is unsure if she would consider these procedures. She plans to discuss further with her daughter. Going forward if valve intervention would be a consideration feel she would need additional testing to confirm valve disease severity and would recommend ANIVAL and right/left heart catheterization. If she would not want to undergo valve intervention further discussion with palliative care reasonable. For now recommend repeating TTE. With reduced EF recommend starting GDMT with beta-shelby, ARB as BP allows. No ARNI/SGLT2/MRA with ESRD. Continued weight management with dialysis. Will continue to follow History of Present Illness Attending Physician: Jose Anaya History of Present Illness Ms. Bolivar is a 81-year-old woman with a history of moderate to severe aortic stenosis, moderate to severe mitral regurgitation, heart failure with mildly reduced ejection fraction, end-stage renal disease on dialysis, insulin- dependent type 2 diabetes, post AKA after surgical wound dehiscence and recurrent pleural effusions/right hydropneumothorax readmitted with hypoglycemia and respiratory failure. Patient followed by Dr. Hamm for her valve disease, presumed CAD and heart failure, started on dialysis 12/2020. Echo 06/2021 EF 60%, moderate to severe (PV 3.8, MG 34, ANUJ 1.0, DI 0.35) She has had multiple hospitalizations for respiratory failure over the last 2 months. Underwent thoracentesis/chest tube placement in December (benign/transudative effusion). Discharged 01/20 for possible pneumonia, again 01/31 thought secondary to volume overload. Echo 12/2021 read as EF 45 to 50% with posterior hypokinesis and moderate to severe (PV 2.6, MG 16, ANUJ 1.1, DI 0.45), mild AI, moderate to severe MR, PASP 50+. Seen today at dialysis. Since most recent discharge states has gradually felt more short of breath, similar to prior times at home. Has gone to routine dialysis including 2 days ago. Denies any fevers, chest pain. Last night felt more short of breath. Home blood sugar noted in the 80s, 30s on arrival to the hospital. Hstrop flat at 30. ECG sinus rhythm, LVH, no dynamic ST changes. Chest x-ray again showed moderate right, small left pleural effusions. Repeat chest CT showed increased fluid of right hydropneumothorax and groundglass opacities. Allergies Allergy/AdvReac Type Severity Reaction Status Date / Time codeine AdvReac Mild DOES NOT Verified 01/24/22 15:[address] IT MAKES HER FEEL. Home Medications Medication Instructions Recorded Confirmed Type ascorbic acid (vitamin C) 500 mg 500 mg PO QAM 12/10/18 02/06/22 History tablet venlafaxine 150 mg 150 mg PO QAM 12/10/18 02/06/22 History capsule,extended release 24 hr cholecalciferol (vitamin D3) 25 50 mcg PO BID 12/27/20 02/06/22 History mcg (1,000 unit) capsule vitamins A,C,O-efhi-rkmqty 14,320 1 cap PO BID 06/14/21 02/06/22 History unit-226 mg-200 unit capsule (PreserVision AREDS) insulin aspart U-100 100 unit/mL 7 unit (0.07 mL) subcut TIDM #30 mL 06/22/21 02/06/22 Rx (3 mL) subcutaneous pen (Novolog Flexpen U-100 Insulin aspart) pen needle, diabetic 32 gauge x #400 ea 09/25/21 02/06/22 Rx " (BD Ultra-Fine [place] Pen Needle) betamethasone dipropionate 0.05 % 1 applic topical DIRECTED PRN 11/20/21 02/06/22 History topical cream Skin Irritation acetaminophen 500 mg tablet 1,000 mg PO Q8H PRN Pain 12/11/21 02/06/22 History (Tylenol Extra Strength) amlodipine 5 mg tablet 5 mg PO BID 12/11/21 02/06/22 History menthol 0.44 %-zinc oxide 20.6 % 1 applic topical TID PRN NEEDED 12/11/21 02/06/22 History topical ointment (Calmoseptine) atorvastatin 80 mg tablet 80 mg PO HS #90 tabs 01/03/22 02/06/22 Rx isosorbide mononitrate 120 mg 120 mg PO QAM #90 tabs 01/03/22 02/06/22 Rx tablet,extended release 24 hr aspirin 81 mg tablet,delayed 81 mg PO DAILY #30 tabs 01/04/22 02/06/22 Rx release (Adult Aspirin Regimen) polyethylene glycol 3350 17 17 g PO DAILY PRN Constipation 01/04/22 02/06/22 Rx gram/dose oral powder #510 grams multivitamin 1 tab PO QAM 01/14/22 02/06/22 History insulin glargine 100 unit/mL (3 4 unit (0.04 mL) subcut QPM #15 mL 01/22/22 02/06/22 Rx mL) subcutaneous pen (Lantus Solostar U-100 Insulin) Portable Oxygen #1 ea 01/24/22 02/06/22 Rx docusate sodium 100 mg capsule 100 mg PO BID #180 caps 01/31/22 02/06/22 Rx hydralazine 50 mg tablet 100 mg PO TID #540 tabs 01/31/22 02/06/22 Rx sevelamer HCl 800 mg tablet 800 mg PO TID #270 tabs 01/31/22 02/06/22 Rx Patient History Medical History Anemia AV fistula LEFT CAD (coronary artery disease) Carotid artery disease less than 50% ICA stenosis per 08/2016 carotid duplex CHF (congestive heart failure) Chronic gastroesophageal reflux disease Chronic kidney disease on HD Dehiscence of wound Depression Diabetic peripheral neuropathy associated with type 2 diabetes mellitus Dialysis patient 3XWK (M/W/F) [facility] [place]>FOLLOWED BY DR. HATHAWAY Dyslipidemia Gallstones Generalized osteoarthritis of multiple sites Graves disease H/O malignant neoplasm of uterine body Hiatal hernia History of kidney stones Hydropneumothorax Hypertension Irregular heart beat metoprolol for this per pt Lab test negative for COVID-19 virus Lack of motivation Macular degeneration Moderate calcific aortic stenosis Multinodular goiter (nontoxic) Multiple thyroid nodules Obesity Osteopenia Patella fracture Secondary hyperparathyroidism Sepsis Severe aortic stenosis Sleep apnea No device Type 2 diabetes mellitus with insulin therapy Surgical History H/O abdominoplasty H/O basal cell carcinoma excision H/O shoulder surgery Right History of appendectomy History of cataract surgery R/L History of colonoscopy History of esophagogastroduodenoscopy (EGD) History of hip surgery Closed intertrochanteric fracture of left femur 04/10/2021: 02/16/2021: Grade 4 view, MAC#3, ETT#7.0. No issues per anesthesia postop progress note. History of open reduction and internal fixation (ORIF) procedure right patella 05/18/2021: LMA#4 atraumatic + PNB. No issues per anesthesia postop progress note. History of tonsillectomy History of tooth extraction S/P complete hysterectomy Status post knee surgery 05/31/21 Dr. Heriberto Ly- Incision and Debridement Right Knee, Right Open Reduction Internal Fixation Patella, Hardware Removal(Right) Family History Father Diabetes Lung cancer Family history of diabetes mellitus Mother , in a home fire Hypertension Family history of diabetes mellitus Daughter Family history of diabetes mellitus Son Family history of diabetes mellitus Other No family history of adverse response to anesthesia Denies family history of Ovarian cancer Prostate cancer Myocardial infarction Breast cancer Colorectal cancer Social History Smoking Status: Never smoker Tobacco Type: Cigarettes Second Hand Exposure: No; Hx Alcohol Use: Yes Alcohol type: hard liquor Hx Substance Use: No Preferred Language: Yi Communication Ability: Effective Visual Impairment: No Limitations Hearing Ability: Normal Taxation Accountant Required: No Beliefs That Will Affect Care: None marital status: / Current Living Situation: Family Current Living Situation Comment: Son and Daughter in law. current occupational status: retired How many Children do You have: 4 Feels Safe at Home: Yes Safety Concerns Comment: unsteady at times Childhood Exposure to Second-Hand Smoke: Yes Dental Care, Regularly: No Physical Activity Frequency: Does not Exercise Seatbelt Use: always Sunscreen Use: No Assistive Devices: Bedside Commode, Oxygen - Continuous, Walker and Wheelchair Review of Systems Review of Systems: All systems reviewed & are unremarkable except as noted in HPI & below Physical Exam Physical Exam: General: Comfortable, lying flat HEENT: Sclerae anicteric Lungs: Decreased breath sounds at right base Cardiac: Regular, diminished heart sounds, 2 out of 6 systolic ejection murmur heard best at left upper sternal border, 2/6 holosystolic murmur at the apex Vascular: 2+ radial bilaterally. 2+ DP pulse on left Abdomen: Soft, nontender Extremities: Post right AKA, surgical site well-healed. Well perfused, no peripheral edema on left. Left AV fistula in use Neuro: Nonfocal Psych: Alert orient x3, normal affect and mood Results & Data ([facility]) Vital Signs (Past 12 Hours) Vital Signs Temp Pulse Pulse Pulse Resp BP BP 02/06/22 11:30 81 99/47 L 02/06/22 11:00 81 103/51 L 02/06/22 10:45 82 99/45 L 02/06/22 10:30 82 106/51 L 02/06/22 10:15 76 112/54 L 02/06/22 10:00 76 113/44 L 02/06/22 09:50 85 117/51 L 02/06/22 09:39 98.1 F 88 02/06/22 08:33 89 18 132/57 L 02/06/22 06:00 76 18 133/58 L 02/06/22 04:00 84 20 131/61 02/06/22 02:00 82 19 126/55 L 02/06/22 01:24 97.9 F 02/06/22 00:49 02/06/22 00:51 97.5 F L 79 18 129/51 L Pulse Ox O2 Del Method O2 Flow Rate 02/06/22 11:30 02/06/22 11:00 02/06/22 10:45 02/06/22 10:30 02/06/22 10:15 02/06/22 10:00 02/06/22 09:50 02/06/22 09:39 02/06/22 08:33 96 Nasal Cannula 2 02/06/22 06:00 100 Nasal Cannula 2 02/06/22 04:00 100 Nasal Cannula 2 02/06/22 02:00 100 Nasal Cannula 2 02/06/22 01:24 02/06/22 00:49 98 Nasal Cannula 2 02/06/22 00:51 98 Nasal Cannula 2 PG Care Time/CCT Total # of Minutes Spent Total Time Spent with Patient: Total time spent is greater than 50% in coordination of care (as documented) at patient's floor/unit and/or counseling patient: Coding Level of Care Code 72560 Initial Inpt Care Lvl 3 Diagnoses Heart failure with mid-range ejection fraction I50.22
--- NOTE | 2022-02-06 15:30 | History & Physical Bridge Note ---
Date of Service February 06, 2022 History & Physical Bridge Note I have examined the patient, reviewed the History & Physical and in the interval since the performance of the History & Physical I have noted the following changes of clinical significance: Patient admitted early this morning primarily for hypoglycemia, although patient did mention that she was having shortness of breath when she presented to the EMD. She has recently been set up with home O2 last week. Case was discussed with pulmonary team, no plan for further pulmonary invasive testing. Patient is agreeable but asks if this can also be discussed with her daughter as her daughter has been the one to push for her to be aggressive with her medical treatment. Pt verbalizes that she does not want any heroic measures in form of a full resuscitation including compressions, shock, or intubation. Therefore, her code status has been changed to a DNR/DNI. Isai Argueta PA-C intended to meet with her daughter at bedside if she comes in to visit her mother and have a discussion regarding transitioning her to palliative care in the outpatient setting with eventual transition to hospice when the patient is ready. I have discontinued her Lantus (she was only taking 4u at HS prior to admission) with a recent hemoglobin a1c of 6.1% it is likely that she no longer needs any insulin. Will continue to check blood sugars, can change to ac and hs at this time. Will observe overnight and anticipate home tomorrow afternoon with her family that she lives with. Plan d/w Dr. Anaya.
--- NOTE | 2022-02-06 16:30 | Pulmonary Consultation ---
Date of Consultation February 06, 2022 Assessment & Plan (1) Bilateral pleural effusion: (2) Heart failure with mid-range ejection fraction: (3) Hypoxia: (4) Hydropneumothorax: Plan Attending: Dr. Bynum Impression: 81-year-old female who presented to the ED earlier today with hypoglycemia. She was also found to be hypoxic and placed on 2 L of supplemental oxygen and per nasal cannula. At the time of patient's last admission on 01/30/2022 patient was found to be hypoxic to 87% on admission and placed on 2 L of supplemental oxygen at that time with correction to the mid 90s. Patient did reported that time that she could not get oxygen at home and was using her neighbors extra oxygen tank. Imaging of the patient is admission shows persistent bilateral pleural effusions. We are consulted to evaluate appropriateness of thoracentesis versus more advanced intervention. Recommendations: 1. Persistent bilateral pleural effusions * Most likely consistent with CHF and end-stage renal disease as well as severe aortic stenosis and mitral regurgitation * On the most recent thoracentesis, patient developed a pneumothorax and required pigtail catheter which had limited effect as far as drainage * Discussion with the patient reveals that she has not anxious to have recurrent procedures and would prefer not to have a thoracentesis at this time * I did discuss options with the patient and while she would want to continue with dialysis she would prefer not to have further thoracentesis or chest tube placement and would elect to be a DNR/DNI * She would like us to discuss this with her daughter who is the POA. Emergency room nurse was contacted and we are to be advised when the daughter arrived so we can have meaningful discussion regarding CODE STATUS and develop appropriate care plan 2. 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 We will confirm with case management the patient and these does have access to oxygen * Consider palliative care consult as patient is probably eligible for hospice at this time although patient would not elect hospice but would consider palliation * Continue with ultrafiltration with hemodialysis 3. Question of pneumonia: * No fever, chest pain, hemoptysis, cough, sputum production * Although procalcitonin is slightly elevated 1.24 ng/mL this is most likely secondary to her renal disease and not relevant regarding infection * Patient's hypoxia is chronic and corrects easily with 2 L * There is pulmonary edema and chronic bilateral pleural effusions on chest x- ray and CT scan but no evidence of new consolidation or infiltrate * At this time I would not treat with antibiotics but rather would allow the patient to declare herself * Continue to follow clinically Overall prognosis of the patient is poor given the patient's limited mobility, end-stage renal disease on hemodialysis, severe aortic stenosis, moderate mitral regurgitation, persistent bilateral pleural effusions, and probable right lung trapping. Would consider palliative care consultation for which the patient is agreeable. We will also address CODE STATUS to DNR/DNI as this appears to be the patient's wishes. However, she would like us to discuss CODE STATUS and care plan with her daughter/POA prior to making changes in the system. Thank you for including us in the care of this patient. The pulmonary service will sign off at this time. Please feel free to reconsult or call with direct questions. Please refer to Dr. Bynum's addendum for further recommendations and corrections. History of Present Illness Reason for Consultation: Evaluate for pleural effusion Requesting Physician: ANDRAE Dillard Attending Physician: Jose Anaya History of Present Illness Attending: Dr. Bynum This is a 81-year-old female that has been seen by our service before. She has a past medical history including recurrent pleural effusion and CHF. She also has moderate to severe aortic stenosis, end-stage renal disease on hemodialysis, COVID-19 infection in the past, and recurrent hospitalizations. Patient recently in the hospital in early January and seen in pulmonary consultation at that time as well. During her previous hospitalization she had a right thoracentesis performed and developed a pneumothorax during the procedure. A pigtail catheter was placed at that time there was some improvement of pneumothorax but also concern for possible lung entrapment. Pleural effusion was first dated in October 2020. General consensus in the past has been that her exertional shortness of breath is most likely secondary to chronic disease as well as severe aortic stenosis and moderate mitral regurgitation. At bedside today, patient denies any shortness of breath. She is currently on 2 L of supplemental oxygen via nasal cannula. Had extensive discussion with the patient at bedside today. We talked about repeat thoracentesis. She is not anxious to have this done as she previously had the pneumothorax and a chest tube placed. She states that she does not really want to be "poked" anymore. Talked extensively about the patient's CODE STATUS and she does not think that she would want to have anything heroic done. Although she is not ready for hospice, she would consider palliative care and continuing with dialysis at this time. She does state that she would not want to escalate care at this time. She asked that we meet with her family and specifically her daughter and POA. Currently patient denies any chest pain or tightness. She has no flank pain. She has no pleuritic pain. She denies any hemoptysis. She is unaware of any tachyarrhythmias. She has no other acute complaints and is not short of breath with rest. Allergies Allergy/AdvReac Type Severity Reaction Status Date / Time codeine AdvReac Mild DOES NOT Verified 01/24/22 15:[address] IT MAKES HER FEEL. Home Medications Medication Instructions Recorded Confirmed Type ascorbic acid (vitamin C) 500 mg 500 mg PO QAM 12/10/18 02/06/22 History tablet venlafaxine 150 mg 150 mg PO QAM 12/10/18 02/06/22 History capsule,extended release 24 hr cholecalciferol (vitamin D3) 25 50 mcg PO BID 12/27/20 02/06/22 History mcg (1,000 unit) capsule vitamins A,C,D-ndbi-ejxgmy 14,320 1 cap PO BID 06/14/21 02/06/22 History unit-226 mg-200 unit capsule (PreserVision AREDS) insulin aspart U-100 100 unit/mL 7 unit (0.07 mL) subcut TIDM #30 mL 06/22/21 02/06/22 Rx (3 mL) subcutaneous pen (Novolog Flexpen U-100 Insulin aspart) pen needle, diabetic 32 gauge x #400 ea 09/25/21 02/06/22 Rx " (BD Ultra-Fine [place] Pen Needle) betamethasone dipropionate 0.05 % 1 applic topical DIRECTED PRN 11/20/21 02/06/22 History topical cream Skin Irritation acetaminophen 500 mg tablet 1,000 mg PO Q8H PRN Pain 12/11/21 02/06/22 History (Tylenol Extra Strength) amlodipine 5 mg tablet 5 mg PO BID 12/11/21 02/06/22 History menthol 0.44 %-zinc oxide 20.6 % 1 applic topical TID PRN NEEDED 12/11/21 02/06/22 History topical ointment (Calmoseptine) atorvastatin 80 mg tablet 80 mg PO HS #90 tabs 01/03/22 02/06/22 Rx isosorbide mononitrate 120 mg 120 mg PO QAM #90 tabs 01/03/22 02/06/22 Rx tablet,extended release 24 hr aspirin 81 mg tablet,delayed 81 mg PO DAILY #30 tabs 01/04/22 02/06/22 Rx release (Adult Aspirin Regimen) polyethylene glycol 3350 17 17 g PO DAILY PRN Constipation 01/04/22 02/06/22 Rx gram/dose oral powder #510 grams multivitamin 1 tab PO QAM 01/14/22 02/06/22 History insulin glargine 100 unit/mL (3 4 unit (0.04 mL) subcut QPM #15 mL 01/22/22 02/06/22 Rx mL) subcutaneous pen (Lantus Solostar U-100 Insulin) Portable Oxygen #1 ea 01/24/22 02/06/22 Rx docusate sodium 100 mg capsule 100 mg PO BID #180 caps 01/31/22 02/06/22 Rx hydralazine 50 mg tablet 100 mg PO TID #540 tabs 01/31/22 02/06/22 Rx sevelamer HCl 800 mg tablet 800 mg PO TID #270 tabs 01/31/22 02/06/22 Rx Patient History Medical History Anemia AV fistula LEFT CAD (coronary artery disease) Carotid artery disease less than 50% ICA stenosis per 08/2016 carotid duplex CHF (congestive heart failure) Chronic gastroesophageal reflux disease Chronic kidney disease on HD Dehiscence of wound Depression Diabetic peripheral neuropathy associated with type 2 diabetes mellitus Dialysis patient 3XWK (M/W/F) [facility]>FOLLOWED BY DR. HATHAWAY Dyslipidemia Gallstones Generalized osteoarthritis of multiple sites Graves disease H/O malignant neoplasm of uterine body Hiatal hernia History of kidney stones Hydropneumothorax Hypertension Irregular heart beat metoprolol for this per pt Lab test negative for COVID-19 virus Lack of motivation Macular degeneration Moderate calcific aortic stenosis Multinodular goiter (nontoxic) Multiple thyroid nodules Obesity Osteopenia Patella fracture Secondary hyperparathyroidism Sepsis Severe aortic stenosis Sleep apnea No device Type 2 diabetes mellitus with insulin therapy Surgical History H/O abdominoplasty H/O basal cell carcinoma excision H/O shoulder surgery Right History of appendectomy History of cataract surgery R/L History of colonoscopy History of esophagogastroduodenoscopy (EGD) History of hip surgery Closed intertrochanteric fracture of left femur 04/10/2021: 02/16/2021: Grade 4 view, MAC#3, ETT#7.0. No issues per anesthesia postop progress note. History of open reduction and internal fixation (ORIF) procedure right patella 05/18/2021: LMA#4 atraumatic + PNB. No issues per anesthesia postop progress note. History of tonsillectomy History of tooth extraction S/P complete hysterectomy Status post knee surgery 05/31/21 Dr. Heriberto Ly- Incision and Debridement Right Knee, Right Open Reduction Internal Fixation Patella, Hardware Removal(Right) Family History Father Diabetes Lung cancer Family history of diabetes mellitus Mother , in a home fire Hypertension Family history of diabetes mellitus Daughter Family history of diabetes mellitus Son Family history of diabetes mellitus Other No family history of adverse response to anesthesia Denies family history of Ovarian cancer Prostate cancer Myocardial infarction Breast cancer Colorectal cancer Social History Smoking Status: Never smoker Tobacco Type: Cigarettes Second Hand Exposure: No; Hx Alcohol Use: Yes Alcohol type: hard liquor Hx Substance Use: No Preferred Language: Fijian Communication Ability: Effective Visual Impairment: No Limitations Hearing Ability: Normal [employer] Project [employer] Required: No Beliefs That Will Affect Care: None marital status: / Current Living Situation: Family Current Living Situation Comment: Son and Daughter in law. current occupational status: retired How many Children do You have: 4 Feels Safe at Home: Yes Safety Concerns Comment: unsteady at times Childhood Exposure to Second-Hand Smoke: Yes Dental Care, Regularly: No Physical Activity Frequency: Does not Exercise Seatbelt Use: always Sunscreen Use: No Assistive Devices: Bedside Commode, Oxygen - Continuous, Walker and Wheelchair Review of Systems Review of Systems: A total of 10 systems was reviewed and is negative other than as listed in the HPI Physical Exam Physical Exam: GENERAL : No acute distress EYES: No icterus, gaze conjugate NOSE: No evidence of epistaxis MOUTH: No lesions or candidiasis NECK: Supple LUNGS: Generally CTA B/L, no wheezes, rales or rhonchi. Patient does have decrease in breath sounds at the right base. HEART: Regular, rate controlled ABDOMEN: Soft, NT, ND, BS Present EXTREMITIES: No LE edema, pedal pulses intact and equal bilaterally. Dialysis access has been performed on the left forearm. Auscultation reveals good bruit over AV fistula. NEURO: A&OX3 Results & Data Results & Data ([facility]) Vital Signs (Past 12 Hours) Vital Signs Temp Pulse Pulse Pulse Resp BP BP 02/06/22 13:00 78 108/52 L 02/06/22 12:30 78 104/55 L 02/06/22 13:29 36.9 C 86 127/62 02/06/22 12:00 81 96/51 L 02/06/22 11:30 81 99/47 L 02/06/22 11:00 81 103/51 L 02/06/22 10:45 82 99/45 L 02/06/22 10:30 82 106/51 L 02/06/22 10:15 76 112/54 L 02/06/22 10:00 76 113/44 L 02/06/22 09:50 85 117/51 L 02/06/22 09:39 36.7 C 88 02/06/22 08:33 89 18 132/57 L 02/06/22 06:00 76 18 133/58 L Pulse Ox O2 Del Method O2 Flow Rate 02/06/22 13:00 02/06/22 12:30 02/06/22 13:29 02/06/22 12:00 02/06/22 11:30 02/06/22 11:00 02/06/22 10:45 02/06/22 10:30 02/06/22 10:15 02/06/22 10:00 02/06/22 09:50 02/06/22 09:39 02/06/22 08:33 96 Nasal Cannula 2 02/06/22 06:00 100 Nasal Cannula 2 Critical Care Results & Data Vital Signs (Past 12 Hours) Vital Signs Temp Pulse Pulse Pulse Resp BP BP 02/06/22 13:00 78 108/52 L 02/06/22 12:30 78 104/55 L 02/06/22 13:29 36.9 C 86 127/62 02/06/22 12:00 81 96/51 L 02/06/22 11:30 81 99/47 L 02/06/22 11:00 81 103/51 L 02/06/22 10:45 82 99/45 L 02/06/22 10:30 82 106/51 L 02/06/22 10:15 76 112/54 L 02/06/22 10:00 76 113/44 L 02/06/22 09:50 85 117/51 L 02/06/22 09:39 36.7 C 88 02/06/22 08:33 89 18 132/57 L 02/06/22 06:00 76 18 133/58 L Pulse Ox O2 Del Method O2 Flow Rate 02/06/22 13:00 02/06/22 12:30 02/06/22 13:29 02/06/22 12:00 02/06/22 11:30 02/06/22 11:00 02/06/22 10:45 02/06/22 10:30 02/06/22 10:15 02/06/22 10:00 02/06/22 09:50 02/06/22 09:39 02/06/22 08:33 96 Nasal Cannula 2 02/06/22 06:00 100 Nasal Cannula 2 Lab & Micro Results (Past 24 Hours) RBC 3.76 M/uL (3.93-5.22) L 02/06/22 WBC 10.73 K/ul (4.8-10.8) 02/06/22 Hgb 9.3 g/dl (12.0-16.0) L 02/06/22 Hct 33.6 % (34.1-44.9) L 02/06/22 MCV 89.4 fL (80.0-100.0) 02/06/22 MCH 24.7 pg (25.0-34.0) L 02/06/22 MCHC 27.7 g/dL (32.0-36.0) L 02/06/22 RDW Standard Deviation 67.3 fL (36.4-46.3) H 02/06/22 RDW Coefficient of Variation 20.5 % (11.5-14.5) H 02/06/22 Plt Count 320 K/uL (130-400) 02/06/22 MPV 8.7 fL (9.4-12.3) L 02/06/22 Neutrophils (%) (Auto) 79.1 % 02/06/22 Lymphocytes (%) (Auto) 4.9 % 02/06/22 Monocytes # (Auto) 1.15 K/uL (0.24-0.82) H 02/06/22 Eosinophils # (Auto) 0.37 K/uL (0-0.50) 02/06/22 Immature Granulocyte % (Auto) 1.3 % 02/06/22 Neutrophils # (Auto) 8.48 K/uL (1.4-6.5) H 02/06/22 Lymphocytes # (Auto) 0.53 K/uL (1.2-3.4) L 02/06/22 Monocytes # (Auto) 1.15 K/uL (0.24-0.82) H 02/06/22 Eosinophils # (Auto) 0.37 K/uL (0-0.50) 02/06/22 Basophils # (Auto) 0.06 K/uL (0-0.2) 02/06/22 Immature Granulocyte # (Auto) 0.14 K/uL (0.00-0.02) H 02/06 Hypochromasia Present 02/06/22 Anisocytosis Present 02/06/22 Na 137 mmol/L (136-145) 02/06/22 K 4.3 mmol/L (3.5-5.1) 02/06/22 Cl 99 mmol/L (98-107) 02/06/22 CO2 33 mmol/L (21-32) H 02/06/22 Anion Gap 5 (3-11) 02/06/22 BUN 33 mg/dl (6-23) H 02/06/22 Creatinine 2.73 mg/dl (0.6-1.2) H 02/06/22 Estimated GFR ( Amer) 18.4 ml/min 02/06/22 Estimated GFR (Non-Af Amer) 15.9 ml/min 02/06/22 BUN/Creatinine Ratio 12.1 (10-20) 02/06/22 Glu 30 mg/dl (70-99(Fasting)) L* 02/06/22 Ca 11.3 mg/dl (8.5-10.1) H 02/06/22 Total Bilirubin 0.3 mg/dl (0.2-1.0) 02/06/22 AST 15 U/L (13-39) 02/06/22 ALT 10 U/L (7-52) 02/06/22 Alkaline Phosphatase 87 U/L (34-104) 02/06/22 TP 6.8 gm/dl (6.0-8.3) 02/06/22 Albumin 3.1 gm/dl (3.4-5.0) L 02/06/22 Globulin 3.7 gm/dl (2.5-4.0) 02/06/22 Albumin/Globulin Ratio 0.8 (0.9-2) L 02/06/22 Calcium Level 11.3 mg/dl (8.5-10.1) H 02/06/22 01:05 Diagnostic Findings (Past 24 Hours) Chest X-Ray 02/06/22 00:53 XR chest 1V portable CLINICAL HISTORY: weakness COMPARISON STUDY: Chest radiograph January 30, 2022. Chest CT December 18, 2021. FINDINGS: A right hydropneumothorax is again noted. This was shown on prior exam. Associated moderate amount of right pleural fluid is noted. There is a small left pleural effusion. Interstitial thickening in bilateral airspace opacities have slightly decreased since prior exam. Cardiomediastinal silhouette is stable. Degenerative changes of both shoulders are incidentally noted. IMPRESSION: 1. Persistent interstitial thickening, slightly decreased since exam. This favors pulmonary edema. 2. Redemonstration of a right hydropneumothorax. Moderate right and small left pleural effusions with associated bibasilar opacities. ACT 112: Negative or not required by law. Electronically signed by: Emigdio Ibrahim M.D. 02/06/2022 7:[address] 02/06/22 02:06 CT chest diagnostic wo con CLINICAL HISTORY: PNA, dialysis, SOB TECHNIQUE: Multidetector row helical CT of the chest was performed. Coronal and sagittal reformations were obtained. Automated dose lowering techniques and/or adjustment according to patient size were utilized for this exam. CT DOSE: 277.01 mGy.cm Comparison: Comparison is made to CT chest 12/18/2021 FINDINGS: Lungs and pleura: Stable right hydropneumothorax, somewhat decreased in size with a smaller gaseous component compared to the prior exam. Stable left pleural effusion. Bilateral atelectasis is seen. There are a few pulmonary nodules including a 3 mm nodule in the left apex. Scattered solid and groundglass opacities and mosaic attenuation are seen. Partial calcification of collapse of the right lower lobe is unchanged. Heart and pericardium: Cardiomegaly is seen with biatrial enlargement. The aortic valve is calcified. Vessels: Severe atherosclerotic changes in the aorta and coronary arteries. Mediastinum and michael: Numerous mediastinal lymph nodes are seen measuring up to 11 mm in diameter. Chest wall and lower neck: Numerous calcified thyroid nodules are seen. Abdomen: Unremarkable. Bones: Degenerative changes in the thoracic spine. Ankylosis of numerous thoracic vertebrae again seen. IMPRESSION: 1. Interval increased fluid component of the right hydropneumothorax. Stable left pleural effusion. There is associated atelectasis. 2. Groundglass and airspace opacities are favored to represent infectious/inflammatory process. Follow-up to resolution is recommended. Lymphadenopathy is likely reactive. 3. Previously noted pneumomediastinum has resolved. 4. Numerous thyroid nodules are seen which have been previously evaluated by ultrasound. ACT 112: Negative or not required by law. Electronically signed by: Juno Vyas M.D. 02/06/2022 10:41 AM RT Ventilator Mngmt (Last Documented) Ventilator Ordered Settings Respiratory Rate 18 02/06/22 08:33 Ventilator - PT Measurements Respiratory Rate 18 PG Care Time/CCT Total # of Minutes Spent Total Time Spent with Patient: Total time spent is greater than 50% in coordination of care (as documented) at patient's floor/unit and/or counseling patient:60 minutes Coding Level of Care Code 96888 Inpt Consult Level 4 Diagnoses Bilateral pleural effusion J90 Heart failure with mid-range ejection fraction I50.22 Hypoxia R09.02 Hydropneumothorax J94.8 Time Spent (min) 60 Comment Including significant bedside discussion with patient regarding CODE STATUS/treatment plan
[2022-02-06] MEDS ORDERED: LANTUS PER UNIT CHARGE SQ SCH (21:00)
[2022-02-06] MEDS: ATORVASTATIN 40 MG TAB PO SCH (22:12)
--- NOTE | 2022-02-06 22:15 | Billing Data ---
Date of Service February 06, 2022 Coding Level of Care Code 72073 Initial Inpt Care Lvl 3
--- NOTE | 2022-02-06 22:31 | XCELERA ---
[id number]
--- NOTE | 2022-02-06 22:55 | Electrocardiogram Report ---
Test Reason : Blood Pressure : / mmHG Vent. Rate : 085 BPM Atrial Rate : 085 BPM P-R Int : 160 ms QRS Dur : 100 ms QT Int : 378 ms P-R-T Axes : 075 018 084 degrees QTc Int : 449 ms Poor data quality, interpretation may be adversely affected Sinus rhythm with Premature supraventricular complexes Nonspecific T wave abnormality When compared with ECG of 30-JAN-2022 02:06, Premature supraventricular complexes are now Present Confirmed by Patrice Berrios ([id number]) on 02/06/2022 10:54:52 PM Referred By: REFERRED SELF Confirmed By:Patrice Berrios
[2022-02-07] MEDS ORDERED: MELATONIN 3 MG TAB PO PRN (00:28)
[2022-02-07] MEDS: ACETAMINOPHEN 325 MG TAB PO PRN (00:52)
[2022-02-07] MEDS: ONDANSETRON 4 MG OD TAB PO STA ×2 (04:58→04:59)
[2022-02-07] MEDS: HEPARIN SOD 5,000 UNIT/0.5 ML VIAL SQ SCH ×3 (05:00→20:45)
[2022-02-07 06:22] LABS: BUN Creatinine Ratio 10.8 (10-20); Calcium 10.7 mg/dl (8.5-10.1); Creatinine Clr Calc Pharmacy 21.6 ml/min; Est GFR (African American) 27.7 ml/min; Est GFR (Non-African American) 23.9 ml/min; Potassium 4.1 mmol/L (3.5-5.1)
[2022-02-07 06:26] LABS: Basophilic Stippling 1+; Basophils # (auto) 0.11 K/uL (0-0.2); Basophils % (auto) 1.2 %; Eosinophils # (auto) 0.37 K/uL (0-0.50); Hematocrit (blood only) 33.3 % (34.1-44.9); Hypochromasia Present; Immature Granulocytes % (auto) 3.2 %; Lymphocytes # (auto) 0.92 K/uL (1.2-3.4); Mean Corpuscular Hemoglobin 24.7 pg (25.0-34.0); Mean Corpuscular Volume 91.2 fL (80.0-100.0); Mean Platelet Volume 8.8 fL (9.4-12.3); Monocytes # (auto) 0.97 K/uL (0.24-0.82); Monocytes % (auto) 10.5 %; Neutrophils # (auto) 6.57 K/uL (1.4-6.5); Neutrophils % (auto) 71.1 %; Nucleated RBC # (auto) 0.02 K/uL (0-0); Nucleated RBC % (auto) 0.2 %; Platelet Count 308 K/uL (130-400); Polychromasia 1+; RDW Coefficient of Variation 20.9 % (11.5-14.5); RDW Standard Deviation 68.7 fL (36.4-46.3); Red Blood Count 3.65 M/uL (3.93-5.22); White Blood Count 9.24 K/ul (4.8-10.8)
[2022-02-07] MEDS: SEVELAMER HCL 800 MG TABLET PO SCH ×3 (08:12→16:51)
[2022-02-07] MEDS: VENLAFAXINE HCL XR 150 MG CAPXR PO SCH (08:12)
[2022-02-07] MEDS: amLODIPine BESYLATE 5 MG TAB PO SCH ×2 (08:13→20:44)
[2022-02-07] MEDS: ISOSORBIDE MONO EXTENDED REL 60 MG TABCR PO SCH (08:13)
[2022-02-07] MEDS: DOCUSATE SODIUM 100 MG CAP PO SCH ×2 (08:13→20:45)
[2022-02-07] MEDS: hydrALAZINE TAB 50 MG TAB PO SCH ×3 (08:13→20:44)
[2022-02-07] MEDS: ASPIRIN 81 MG ECTAB PO SCH (08:14)
--- NOTE | 2022-02-07 08:20 | Pulmonology Progress Note ---
Date of Service February 07, 2022 Assessment & Plan (1) Bilateral pleural effusion: (2) Acute respiratory failure with hypoxia: Plan Impression: 81-year-old female with end-stage renal disease on dialysis with recurrent bilateral pleural effusions. Prior thoracentesis demonstrated findings of an entrapped/trapped lung. She has continued pleural effusions with rind formation bilaterally. She is minimally symptomatic currently and I think attempted drainage of these pleural effusions will likely result in pneumo ex vacuo as per previous hospitalization. Definitive therapy would require video- assisted thoracoscopic evaluation with pulmonary decortication. As the patient is minimally symptomatic currently and wishes to avoid any additional procedures, I think it is reasonable to manage her conservatively. Recommendations: 1. Bilateral pleural effusions: See comments above. Patient again reiterates a desire to not undergo any additional invasive procedures and given her prior history I think it is reasonable. These effusions do not appear to be infected or compromising her significantly. Continue dialysis. If the patient were to develop fevers or suspicion of an infected pleural space, sampling and drainage at that point time could be considered. 2. Dyspnea with hypoxemia: Multifactorial. Continue conservative management. As there are no plans for pulmonary intervention currently and the patient appears to be relatively stable from a pulmonary standpoint, pulmonary will sign off at this point time. She is established with Dr. Ceja in the outpatient setting and she can follow-up with him when she leaves the hospital if needed. Review of notes indicates that palliative care is being engaged which certainly appears reasonable. Admission and Anticipated Discharge Date Admission Date: February 06, 2022 Subjective Patient seen and examined. EMR reviewed. Discussed with pulmonary ELEAZAR. The patient states that she feels fine this morning. She denies any respiratory complaints including shortness of breath or chest pain. She is not coughing or wheezing. She overall feels well. She continues to express her desire to avoid any invasive procedures which I think is reasonable. Review of Systems Review of Systems: All systems reviewed & are unremarkable except as noted in Subjective Physical Exam Constitutional: WD/WN, vitals as above Neck: trachea midline, no thyromegaly Respiratory: normal respiratory effort, lungs clear to auscultation Cardiovascular: RRR, no murmur, no edema Gastrointestinal (Abdomen): normal bowel sounds, soft, nontender, no hepatosplenomegaly Musculoskeletal: Extremities: extremities normal to inspection Skin: no rashes, warm and dry Lymphatic: no cervical lymphadenopathy Results & Data Results & Data ([facility]) Vital Signs (Past 12 Hours) Vital Signs Temp Pulse Pulse Resp BP Pulse Ox O2 Del Method 02/07/22 07:52 36.5 C 82 19 145/62 H 96 Nasal Cannula 02/07/22 06:56 61 02/07/22 03:47 36.8 C 85 18 158/63 H 95 Nasal Cannula 02/06/22 22:40 96 H 02/06/22 23:07 36.4 C L 83 17 130/56 L 98 Nasal Cannula 02/06/22 21:41 37.1 C 91 H 16 149/63 H 96 Nasal Cannula 02/06/22 21:11 Nasal Cannula O2 Flow Rate 02/07/22 07:52 2 02/07/22 06:56 02/07/22 03:47 2 02/06/22 22:40 02/06/22 23:07 2 02/06/22 21:41 2 02/06/22 21:11 2 Laboratory Results 02/07/22 05:27 02/07/22 05:27 Diagnostic Findings No new imaging PG Care Time/CCT Total # of Minutes Spent Total Time Spent with Patient: Total time spent is greater than 50% in coordination of care (as documented) at patient's floor/unit and/or counseling patient: Coding Level of Care Code 01813 Subseq Hosp Care Lvl 2 Diagnoses Bilateral pleural effusion J90 Acute respiratory failure with hypoxia J96.01
--- NOTE | 2022-02-07 10:39 | Nephrology Progress Note ---
Date of Service February 07, 2022 Assessment & Plan (1) End-stage renal disease on hemodialysis: (2) Chronic systolic CHF (congestive heart failure): (3) Aortic stenosis: (4) Bilateral pleural effusion: (5) Hypoglycemia: Plan ESRD on HD MWF. Completed HD yesterday without complications. Net UF 1 L. Weight down to 58.5 kg. This is lower than prior EDW. Minerva continues to lose weight quickly. Her nutritional status is poor. She is increasingly frail and debilitated. Goals of care continue to be evaluation. She is tolerating HD reasonably well. Pulmonary consultation reviewed. Given her condition and multiple hospitalizations, I have encouraged her to consider SNF. The [facility] team is attempting to arrange a family meeting with palliative care and the patient's family. Outpatient Rx: MWF 4 hrs, 180 optiflux, 400/800, 2K. EDW 60 kg. L forearm AVF has been functioning well. Clearances have been at goal. Minerva is now below prior EDW. Medications are currently appropriately dosed for kidney dysfunction. Anemia is chronic and stable. Maintained on Micera as outpatient. Epogen 45539 units with HD yesterday. Renal diet and 1 L daily fluid restriction. Sevelamer QAC for hyperphosphatemia. Hold amlodipine and hydralazine prior to HD. Admission and Anticipated Discharge Date Admission Date: February 06, 2022 Subjective No acute events overnight. Minerva tolerated HD yesterday without complications. Overall, she feels reasonably well. She noted that she hopes to go home today. We discussed concerns with regard to her frailty, increasing debility, and multiple hospitalizations. Minerva is adamant that she does not want to go to a senior care. She is not ready for hospice care. At this time, she would like to return home with family. She highlights prior experiences at [facility] and [facility] in [place] as reasons that she does not want to go to a SNF. If necessary, she stated that she would prefer [facility]. However, she expressed that home with family is her preference. Review of Systems Review of Systems: All systems reviewed & are unremarkable except as noted in HPI & below Physical Exam Constitutional: well developed and + frail appearing; no acute distress Eyes: + anicteric sclerae; no corneal abnormality ENMT: Mouth: no oral mucosal abnormality and oral mucous membranes not dry Neck: normal visual inspection and trachea midline Respiratory: normal respiratory effort Auscultation: + rhonchi (R>>L) Cardiovascular: Rate/Rhythm: regular rate Heart Sounds: normal S1, normal S2 and + murmur Extremities: + AV fistula; no edema Musculoskeletal: Extremities: + lower leg abnormality; no cyanosis and no clubbing Skin: normal turgor; no lesions Neurologic: Motor/Sensory: no tremor and no asterixis Psychiatric: Orientation: alert and oriented x 3 Results & Data ([facility]) Vital Signs (Past 12 Hours) Vital Signs Temp Pulse Pulse Resp BP Pulse Ox O2 Del Method 02/07/22 07:52 36.5 C 82 19 145/62 H 96 Nasal Cannula 02/07/22 06:56 61 02/07/22 03:47 36.8 C 85 18 158/63 H 95 Nasal Cannula 02/06/22 22:40 96 H 02/06/22 23:07 36.4 C L 83 17 130/56 L 98 Nasal Cannula O2 Flow Rate 02/07/22 07:52 2 02/07/22 06:56 02/07/22 03:47 2 02/06/22 22:40 02/06/22 23:07 2 Laboratory Results Laboratory Results - last 24 hr 02/06/22 02/06/22 02/07/22 15:10 19:20 05:27 WBC 9.24 RBC 3.65 L Hgb 9.0 L Hct 33.3 L MCV 91.2 MCH 24.7 L MCHC 27.0 L RDW Std Deviation 68.7 H RDW Coeff of Chris 20.9 H Plt Count 308 MPV 8.8 L Immature Gran % (Auto) 3.2 Neut % (Auto) 71.1 Lymph % (Auto) 10.0 Keith % (Auto) 10.5 Eos % (Auto) 4.0 Baso % (Auto) 1.2 Neut # (Auto) 6.57 H Lymph # (Auto) 0.92 L Keith # (Auto) 0.97 H Eos # (Auto) 0.37 Baso # (Auto) 0.11 Immature Gran # (Auto) 0.30 H Absolute Nucleated RBC 0.02 H Nucleated RBC % (auto) 0.2 Polychromasia 1+ Hypochromasia Present Basophilic Stippling 1+ Sodium Potassium Chloride Carbon Dioxide Anion Gap BUN Creatinine Est Cr Clr Drug Dosing Est GFR ( Amer) Est GFR (Non-Af Amer) BUN/Creatinine Ratio Glucose POC Glucose 125 H 245 H Calcium 02/07/22 02/07/22 05:27 07:43 WBC RBC Hgb Hct MCV MCH MCHC RDW Std Deviation RDW Coeff of Chris Plt Count MPV Immature Gran % (Auto) Neut % (Auto) Lymph % (Auto) Keith % (Auto) Eos % (Auto) Baso % (Auto) Neut # (Auto) Lymph # (Auto) Keith # (Auto) Eos # (Auto) Baso # (Auto) Immature Gran # (Auto) Absolute Nucleated RBC Nucleated RBC % (auto) Polychromasia Hypochromasia Basophilic Stippling Sodium 135 L Potassium 4.1 Chloride 99 Carbon Dioxide 30 Anion Gap 6 BUN 21 Creatinine 1.95 H D Est Cr Clr Drug Dosing 21.6 Est GFR ( Amer) 27.7 Est GFR (Non-Af Amer) 23.9 BUN/Creatinine Ratio 10.8 Glucose 103 H POC Glucose 109 H Calcium 10.7 H PG Care Time/CCT Total # of Minutes Spent Total Time Spent with Patient: Total time spent is greater than 50% in coordination of care (as documented) at patient's floor/unit and/or counseling patient: Coding Level of Care Code 81286 Subseq Hosp Care Lvl 3 Diagnoses End-stage renal disease on hemodialysis N18.6; Z99.2 Chronic systolic CHF (congestive heart failure) I50.22 Aortic stenosis I35.0 Bilateral pleural effusion J90 Hypoglycemia E16.2
--- NOTE | 2022-02-07 15:23 | Hospitalist Progress Note ---
Date of Service February 07, 2022 Assessment & Plan (1) Hypoglycemia: Plan: This is a 81-year-old female with a history of HFrEF and severe , ESRD on dialysis, bilateral pleural effusions with right-sided trapped lung (tapped in 12/2020 - transudative bilaterally; again 12/2021, negative for malignancy) s/p chest tube placemenet, type 2 diabetes, dyslipidemia, hypertension, chronic anemia, depression who presented to [facility] for evaluation of shortness of breath and chest pressure, subsequently found to be diaphoretic, tremulous and with a BSG of 30 on arrival. #Suspected Symptomatic Hypoglycemia / DM - Patient and daughter report sudden-onset SOB and CP accompanied by diaphoresis and tremulousness ; on arrival to [facility] found to have BSG 30 - Home regimen: Lantus 4U qHS / NovoLog SSI t.i.d. (daughter thinks SSI 1:40) -- has CGM - A1c in 6.1% in 01/2022 - Hypoglycemic protocol on-call - Will consult pharmacy for glycemic management and a short acting insulin regimen- not a candidate for basal given multiple hypoglycemic episodes with a normal fasting BSG of 109 - Likely can be managed on oral diabetic meds as an outpatient (2) Bilateral pleural effusion: Plan: - Based on multiple thoracenteses since 12/2020, appear transudative without evidence of malignancy at the time they were tapped (last 12/2021 on RIGHT) - CT Chest: "Small hydropneumothorax on the right. The amount of air is decreased but the amount of fluid is increased from prior study. Small left- sided pleural effusion with pleural thickening is unchanged. Rounded atelectasis in the lower lobe with diffuse groundglass throughout the lungs bilaterally. Atypical infection could cause this appearance" - Likely multifactorial: ESRD, CHF, and possibly worsening - Follows with [facility] Pulmonology - Dr. Ceja --> Did bedside US on 01/24/22: Small R pleural effusion with fibrinous material / Small-moderate L pleural effusion with B-lines --> Lower suspicion at that time that R-sided effusion was secondary to infectious etiology - Consulted pulm, no plans for invasive pulmonary procedures, this was discussed with patient who was in agreement (3) Chest pain: Plan: Chest Pain with Elevated Troponin - Acute-onset chest pain associated with SOB, diaphoresis, tremulousness - Initial troponin on arrival minimally elevated 30.7 - lower than last admission --> Will check repeat --> Patient does have chronically elevated troponin in setting of ESRD - No repolarization or conduction abnormalities on ECG - Effusion-related / R-sided lung re-expansion? Anxiety in setting of hypoglycemia and SOB? Lower suspicion for ACS/PE but considered - Monitor on telemetry - Continue ASA, atorvastatin (4) Shortness of breath: Plan: - Chronically on 2L with acute exacerbation DOA. No increased O2 requirement. Comfortable on exam without treatment. Etiology no exactly clear of the event prior -- ?hypoglycemia - Suspect primarily due to HFrEF and ESRD primarily - Lower suspicion for interval development of atypical pneumonia or empyema since last admission given clinical appearance and lack of symptoms -- but considered admit work-up --> Add procalcitonin, CRP ; interpretation may be complicated by ESRD --> Consider initiation of broad-spectrum ABX pending clinical course - No findings at present consistent with PE; would require V/Q scan - Issues as outlined below (5) Chronic systolic CHF (congestive heart failure): Plan: #HFrEF / Moderate-Severe - TTE 12/12/21: Mildly reduced LV function 45-50%, dilated with RWMAs, moderate AR, moderate-severe and moderate MR with elevated MVSP at 40-45 - Continue home medications: hydralazine, isosorbide - Pleural effusions noted; otherwise, does not appear to be overtly volume overloaded - Dr. Diaz consulted, appreciate input, discussing TAVR or mitraclip- however needs further diagnostic testing to determine if she is a candidate - Dr. Diaz is to arrange for possible R/L heart cath and ANIVAL tomorrow 02/08 - Will plan tentatively make NPO after MN in preparation for procedures (6) ESRD (end stage renal disease) on dialysis: Plan: - Receives HD on //, has been attending as scheduled - Cr on admission 2.73 (from last value of 4.65 earlier this month) - Renal diet. Continue sevelamer - Will consult nephrology while here given need for regular dialysis - Monitor lytes (7) Hypertension: Plan: - Continue atorvastatin, amlodipine, isosorbide, hydralazine (8) Anemia: Plan: - Above baseline for patient in setting of ESRD - May benefit from dose of Epogen while here (9) Depression: Plan: - Continue venlafaxine Plan Lengthy discussion with patient regarding her code status, she decided to be a DNR/DNI and does not wish to pursue heroic measures to sustain her life given her multiple chronic comorbidities. She is still wishing to pursue HD and is not at all interested in moving to hospice. Discussed with her about speaking with palliative care team which she seemed receptive, however, given that she is now considering valve repair, would hold off on consulting palliative medicine as this could improve her increasing effusions if her valvular disease was corrected. If it is determined that she is NOT a candidate for valve repair/replacement, then would strongly consider palliative care consult to assist patient in establishing her goals with discharge. She has clearly stated that she does not wish to go to rehab or SNF and her daughter is not interested in this either. Will await further diagnostic testing done by Dr. Diaz and then determine if a palliative med consult would be worthwhile to hold a family meeting and consider a POLST. Did discuss this case briefly with Dr. Crockett but did not place consult as of yet. I attempted to speak with daughter earlier today when she was here but upon my arrival back to the floor she had already left. Dr. Diaz plans to speak with her this evening and provide update on plan. Make patient a full admit. Plan d/w Dr. Marcum. Admission and Anticipated Discharge Date Admission Date: February 06, 2022 Subjective Patient seen on daily rounds this morning. Open to discussing palliative care @ home, but not ready for hospice. She reports that her breathing is "good." No further episodes of hypoglycemia. Denies cp, cough, fever, chills, lightheadedness, dizziness, abd pain, or gu symptoms. Apparently pt and daughter are agreeable to cardiac procedures that were mentioned by Dr. Diaz. Review of Systems Review of Systems: All systems reviewed and are unremarkable except as noted in HPI and below. Denies fever, chills, fatigue, headache, nasal congestion, sore throat, cough, chest pain, shortness of breath, palpitations, orthopnea, PND, abdominal pain, n/v/d, constipation, dysuria, hematuria, frequency, back pain, joint pain or swelling, easy bruising or bleeding, skin lesions or rashes. Physical Exam Physical Exam: GENERAL: 81 yo Well-developed, well-nourished WF. NAD. LUNGS: Diminished in bases bilaterally CARDIOVASCULAR: Regular rate and rhythm 3/6 [place] ABDOMEN: Soft, non-tender and non-distended. BS normoactive x 4 quad. EXTREMITIES: No edema. Non-tender. Peripheral pulses +2/4. NEUROLOGIC: A&O x3. PSYCHIATRIC: Cooperative. Appropriate mood and affect. SKIN: Warm, dry, intact. No rashes or lesions. Results & Data Results & Data ([facility]) Vital Signs (Past 12 Hours) Vital Signs Temp Pulse Pulse Resp BP Pulse Ox O2 Del Method 02/07/22 11:32 36.7 C 84 19 146/63 H 94 Nasal Cannula 02/07/22 07:52 36.5 C 82 19 145/62 H 96 Nasal Cannula 02/07/22 06:56 61 02/07/22 03:47 36.8 C 85 18 158/63 H 95 Nasal Cannula O2 Flow Rate 02/07/22 11:32 2 02/07/22 07:52 2 02/07/22 06:56 02/07/22 03:47 2 Laboratory Results 02/07/22 05:27 02/07/22 05:27 PG Care Time/CCT Total # of Minutes Spent Total Time Spent with Patient: Total time spent is greater than 50% in coordination of care (as documented) at patient's floor/unit and/or counseling patient: Coding Level of Care Code 46908 Subseq Hosp Care Lvl 2 Diagnoses Hypoglycemia E16.2 Bilateral pleural effusion J90 Chest pain R07.9 Shortness of breath R06.02 Chronic systolic CHF (congestive heart failure) I50.22 ESRD (end stage renal disease) on dialysis N18.6; Z99.2 Hypertension I10 Hypertension type: unspecified Anemia N18.6; D63.1; Z99.2 Anemia type: due to chronic kidney disease Chronic kidney disease stage: on chronic dialysis Depression F32.9 (1) Anemia Anemia type: due to chronic kidney disease Chronic kidney disease stage: on chronic dialysis Qualified Code(s): N18.6 - End stage renal disease; D63.1 - Anemia in chronic kidney disease; Z99.2 - Dependence on renal dialysis (2) Hypertension Hypertension type: unspecified Qualified Code(s): I10 - Essential (primary) hypertension
[2022-02-07] MEDS ORDERED: PHARMACY GLYCEMIC MGMT CONSULT PRN (18:22)
[2022-02-07] MEDS: INSULIN ASPART PER UNIT SC SCH ×2 (20:39→20:48)
[2022-02-07] MEDS: ATORVASTATIN 40 MG TAB PO SCH (20:44)
--- NOTE | 2022-02-07 21:49 | Cardiology Progress Note ---
Date of Service February 07, 2022 Assessment & Plan (1) Heart failure with mid-range ejection fraction: Plan: 2. 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 Moderate+ AI. Moderate 4. Mitral regurgitationmoderate to severe 5. End-stage renal disease on dialysis 6. Recurrent pleural effusions/hydropneumothorax 7. Insulin-dependent diabetes 8. Post right AKA 9. Anemia 10. Pulmonary hypertension - moderate to severe Reviewed patient's repeat echocardiogram. Her aortic regurgitation and mitral regurgitation have progressed. remains moderate. LV function has declined with large inferior/inferolateral wall motion abnormality. Had long discussion with patient and patient's daughter regarding cardiac options going forward. 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 She is not a surgical candidate for her cardiac issues. Percutaneous repair options complex, with risk. These procedures would not change prognosis and unlikely to change qu ality of life. In that setting patient was happy to avoid further invasive testing. Will not pursue ANIVAL or cardiac cath. Her and her daughter both independently stated that they felt she was tired of dealing with all these medical issues. Patient stated though she wanted to keep going with current management including dialysis to be around to meet her new great great grandson. Continue current antihypertensives. Admission and Anticipated Discharge Date Admission Date: February 07, 2022 Subjective Today reports feeling okay. Mild shortness of breath near recent baseline. Reports some right flank/epigastric discomfort. No other chest pain. Reports no significant appetite. Review of Systems Review of Systems: All systems reviewed & are unremarkable except as noted in HPI & below Physical Exam Physical Exam: General: Comfortable, lying flat HEENT: Sclerae anicteric Lungs: Decreased breath sounds at right base Cardiac: Regular, diminished heart sounds, 2 out of 6 systolic ejection murmur heard best at left upper sternal border, 2/6 holosystolic murmur at the apex Vascular: 2+ radial bilaterally. 2+ DP pulse on left Abdomen: Soft, nontender Extremities: Post right AKA, surgical site well-healed. Well perfused, no peripheral edema on left. Left AV fistula Neuro: Nonfocal Psych: Alert orient x3, normal affect and mood Results & Data ([facility]) Vital Signs (Past 12 Hours) Vital Signs Temp Pulse Pulse Resp BP Pulse Ox O2 Del Method 02/07/22 19:31 97.7 F 83 18 149/64 H 94 Nasal Cannula 02/07/22 18:25 83 02/07/22 16:03 97.5 F L 84 18 134/55 L 94 Nasal Cannula 02/07/22 11:32 98.1 F 84 19 146/63 H 94 Nasal Cannula O2 Flow Rate 02/07/22 19:31 2 02/07/22 18:25 02/07/22 16:03 2 02/07/22 11:32 2 PG Care Time/CCT Total # of Minutes Spent Total Time Spent with Patient: Total time spent is greater than 50% in coordination of care (as documented) at patient's floor/unit and/or counseling patient: Coding Level of Care Code 62730 Subseq Hosp Care Lvl 3 Diagnoses Heart failure with mid-range ejection fraction I50.22
[2022-02-08] MEDS: HEPARIN SOD 5,000 UNIT/0.5 ML VIAL SQ SCH ×3 (03:16→21:06)
[2022-02-08] MEDS: ACETAMINOPHEN 325 MG TAB PO PRN (03:40)
[2022-02-08 07:26] LABS: Hematocrit (blood only) 33.5 % (34.1-44.9); Hemoglobin 9.3 g/dl (12.0-16.0); Mean Corpuscular Hemoglobin 24.7 pg (25.0-34.0); Mean Corpuscular Hgb Conc 27.8 g/dL (32.0-36.0); Mean Corpuscular Volume 88.9 fL (80.0-100.0); Mean Platelet Volume 9.3 fL (9.4-12.3); Nucleated RBC # (auto) 0.03 K/uL (0-0); Nucleated RBC % (auto) 0.3 %; Platelet Count 347 K/uL (130-400); RDW Coefficient of Variation 21.2 % (11.5-14.5); RDW Standard Deviation 66.6 fL (36.4-46.3); Red Blood Count 3.77 M/uL (3.93-5.22); White Blood Count 10.08 K/ul (4.8-10.8)
[2022-02-08 07:46] LABS: BUN Creatinine Ratio 10.9 (10-20); Calcium 11.4 mg/dl (8.5-10.1); Est GFR (African American) 18.2 ml/min; Est GFR (Non-African American) 15.7 ml/min; Phosphorus 3.1 mg/dl (2.5-4.9); Potassium 4.3 mmol/L (3.5-5.1)
[2022-02-08] MEDS: VENLAFAXINE HCL XR 150 MG CAPXR PO SCH (08:04)
[2022-02-08] MEDS: ASPIRIN 81 MG ECTAB PO SCH (08:04)
[2022-02-08] MEDS: SEVELAMER HCL 800 MG TABLET PO SCH ×3 (08:04→17:58)
[2022-02-08] MEDS: INSULIN ASPART PER UNIT SC SCH ×4 (08:06→21:11)
[2022-02-08] MEDS: amLODIPine BESYLATE 5 MG TAB PO SCH ×2 (08:06→21:05)
[2022-02-08] MEDS: ISOSORBIDE MONO EXTENDED REL 60 MG TABCR PO SCH (08:07)
[2022-02-08] MEDS: hydrALAZINE TAB 50 MG TAB PO SCH ×3 (08:07→21:04)
[2022-02-08] MEDS: DOCUSATE SODIUM 100 MG CAP PO SCH ×2 (08:10→21:11)
[2022-02-08] MEDS ORDERED: LANTUS PER UNIT CHARGE SQ SCH (09:00)
--- NOTE | 2022-02-08 10:35 | Nephrology Progress Note ---
Date of Service February 08, 2022 Assessment & Plan (1) End-stage renal disease on hemodialysis: (2) Chronic systolic CHF (congestive heart failure): (3) Aortic stenosis: (4) Bilateral pleural effusion: (5) Hypoglycemia: Plan ESRD on HD MWF. Orders for HD today entered into the EHR and reviewed with dialysis nurse. Tolerating HD well. Qb at goal. AVF function well. UF goal 2 L. Remains below EDW -- dry weight is continuously adjusted with rapid weight loss. Nutritional status remains very is poor. Minerva is increasingly frail and debilitated. Goals of care discussion ongoing. She continues to refuse SNF. She is tolerating HD reasonably well. Pulmonary consultation reviewed. I discussed the patient's history and plan of care in detail with Dr. Diaz yesterday. No cardiology intervention planned. Given her multiple medical comorbidities and multiple hospitalizations, I have encouraged her to consider SNF. The hospitalist team is attempting to arrange a family meeting with palliative care and the patient's family. Outpatient Rx: MWF 4 hrs, 180 optiflux, 400/800, 2K. EDW 60 kg. L forearm AVF has been functioning well. Clearances have been at goal. Medications are currently appropriately dosed for kidney dysfunction. Anemia is chronic and stable. Maintained on Micera as outpatient. Epogen 99989 units with HD on Friday. Renal diet and 1 L daily fluid restriction. Sevelamer QAC for hyperphosphatemia. Hold amlodipine and hydralazine prior to HD. Admission and Anticipated Discharge Date Admission Date: February 07, 2022 Subjective No acute events overnight. Some epigastric discomfort overnight. Minerva reports discomfort in her right upper quadrant this AM. She describes colicky/cramping pain. Similar symptoms in the past. Symptoms are mild to moderate. No nausea or vomiting. Symptoms started prior to dialysis. She states that she has not had a bowel movement since admission. She does not feel constipated. She was seen and evaluated during dialysis. She is tolerating treatment well. Review of Systems Review of Systems: All systems reviewed & are unremarkable except as noted in HPI & below Physical Exam Constitutional: + thin and + frail appearing; no acute distress Eyes: + anicteric sclerae; no corneal abnormality ENMT: Mouth: + dry oral mucous membranes; no oral mucosal abnormality Neck: normal visual inspection and trachea midline Respiratory: normal respiratory effort Auscultation: lungs clear to auscultation bilaterally and + diminished lung sounds Cardiovascular: Rate/Rhythm: regular rate Heart Sounds: normal S1, normal S2 and + murmur Extremities: + AV fistula; no edema Musculoskeletal: Extremities: + lower leg abnormality; no cyanosis and no clubbing Skin: normal turgor; no lesions Neurologic: Motor/Sensory: no tremor and no asterixis Psychiatric: Orientation: alert and oriented x 3 Results & Data ([facility]) Vital Signs (Past 12 Hours) Vital Signs Temp Pulse Pulse Pulse Resp BP BP 02/08/22 10:00 76 141/55 H 02/08/22 09:56 67 02/08/22 09:30 73 137/57 L 02/08/22 09:00 71 137/61 02/08/22 08:47 36.5 C 74 02/08/22 07:20 36.5 C 70 20 152/66 H 02/08/22 02:37 36.5 C 76 18 144/68 H 02/07/22 23:16 36.6 C 76 18 123/58 L 02/07/22 23:29 68 02/07/22 23:04 Pulse Ox O2 Del Method O2 Flow Rate 02/08/22 10:00 02/08/22 09:56 02/08/22 09:30 02/08/22 09:00 02/08/22 08:47 02/08/22 07:20 97 Nasal Cannula 2 02/08/22 02:37 95 Room Air 02/07/22 23:16 95 Nasal Cannula 2 02/07/22 23:29 02/07/22 23:04 Nasal Cannula 2 Laboratory Results Laboratory Results - last 24 hr 02/07/22 02/07/22 02/07/22 11:45 16:39 20:06 WBC RBC Hgb Hct MCV MCH MCHC RDW Std Deviation RDW Coeff of Chris Plt Count MPV Absolute Nucleated RBC Nucleated RBC % (auto) Sodium Potassium Chloride Carbon Dioxide Anion Gap BUN Creatinine Est Cr Clr Drug Dosing Est GFR ( Amer) Est GFR (Non-Af Amer) BUN/Creatinine Ratio Glucose POC Glucose 218 H 163 H 211 H Calcium Phosphorus Albumin 02/08/22 02/08/22 02/08/22 06:31 06:31 07:46 WBC 10.08 RBC 3.77 L Hgb 9.3 L Hct 33.5 L MCV 88.9 MCH 24.7 L MCHC 27.8 L RDW Std Deviation 66.6 H RDW Coeff of Chris 21.2 H Plt Count 347 MPV 9.3 L Absolute Nucleated RBC 0.03 H Nucleated RBC % (auto) 0.3 Sodium 132 L Potassium 4.3 Chloride 98 Carbon Dioxide 29 Anion Gap 5 BUN 30 H Creatinine 2.76 H D Est Cr Clr Drug Dosing 15.0 Est GFR ( Amer) 18.2 Est GFR (Non-Af Amer) 15.7 BUN/Creatinine Ratio 10.9 Glucose 114 H POC Glucose 131 H Calcium 11.4 H Phosphorus 3.1 Albumin 3.0 L PG Care Time/CCT Total # of Minutes Spent Total Time Spent with Patient: Total time spent is greater than 50% in coordination of care (as documented) at patient's floor/unit and/or counseling patient: Coding Level of Care Code 67406 Subseq Hosp Care Lvl 3 Diagnoses End-stage renal disease on hemodialysis N18.6; Z99.2 Chronic systolic CHF (congestive heart failure) I50.22 Aortic stenosis I35.0 Bilateral pleural effusion J90 Hypoglycemia E16.2
--- NOTE | 2022-02-08 14:41 | Pharmacy Report ---
Pharmacy Glycemic Short Note 2 - Date of Service February 08, 2022 - Glycemic Short BSG Results (Last 24 hours): 02/07/22 02/07/22 02/08/22 16:39 20:06 06:31 Glucose 114 H POC Glucose 163 H 211 H 02/08/22 02/08/22 07:46 13:36 Glucose POC Glucose 131 H 112 H OUTPATIENT ANTIDIABETIC REGIMEN: * Lantus 4 units SC HS * Novolog 7 units SC TIDM + 3-4 units SC HS if BSG greater than 250 mg/dL * Patient's A1c = 6.1% on 01/15/22 * However, this result is likely somewhat unreliable in ESRD patients d/t interactions between the A1c analyzing technique and high levels of urea in ESRD, reduced RBC life span, iron deficiency anemia, and EPO administration. HbA1c > 7.5% in ESRD patient may overestimate the extent of hyperglycemia in ESRD patients. 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 following sudden- onset SOB and CP accompanied by diaphoresis and tremulousness * Suspected cause being hypoglycemia due to presenting BSG of 30 mg/dL * BSGs elevated yesterday (no insulin ordered until time of pharmacy glycemic consult in the evening) * Fasting BSG of 131 mg/dL this morning - will give conservative 0.1 unit/kg basal dose today * Prior admission in June of this year, patient required ~30 units of insulin/day (~50/50 basal/bolus split) * Given hypoglycemia - will use looser parameters and lower basal dose to start * Hemodialysis session today PLAN FOR INPATIENT GLYCEMIC CONTROL: * Hold outpatient oral diabetes medications * Basal insulin * Lantus 6 units SQ x 1 * Reassess in AM * Bolus insulin * NovoLog per scale ACHS or Q6hrs while NPO * Goal Range: Low 110 mg/dL - High 140 mg/dL * Correction Factor: 40 mg/dL/unit * Nutritional / Prandial insulin per carb ratio of 1 unit per 13 grams CHO consumed
--- NOTE | 2022-02-08 14:43 | Hospitalist Progress Note ---
Date of Service February 08, 2022 Assessment & Plan (1) Hypoglycemia: Plan: This is a 81-year-old female with a history of HFrEF and severe , ESRD on dialysis, bilateral pleural effusions with right-sided trapped lung (tapped in 12/2020 - transudative bilaterally; again 12/2021, negative for malignancy) s/p chest tube placemenet, type 2 diabetes, dyslipidemia, hypertension, chronic anemia, depression who presented to [facility] for evaluation of shortness of breath and chest pressure, subsequently found to be diaphoretic, tremulous and with a BSG of 30 on arrival. #Suspected Symptomatic Hypoglycemia / DM - Patient and daughter report sudden-onset SOB and CP accompanied by diaphoresis and tremulousness ; on arrival to [facility] found to have BSG 30 - Home regimen: Lantus 4U qHS / NovoLog SSI t.i.d. (daughter thinks SSI 1:40) -- has CGM - A1c in 6.1% in 01/2022 - Hypoglycemic protocol on-call -See following for glycemic adjustments - Likely can be managed on oral diabetic meds as an outpatient versus short acti ng. Given hypoglycemic episodes and tight A1c control, recommend slightly liberalized control and close outpatient follow-up. BSG in target range this morning (2) Bilateral pleural effusion: Plan: - Based on multiple thoracenteses since 12/2020, appear transudative without evidence of malignancy at the time they were tapped (last 12/2021 on RIGHT) - CT Chest: "Small hydropneumothorax on the right. The amount of air is decreased but the amount of fluid is increased from prior study. Small left- sided pleural effusion with pleural thickening is unchanged. Rounded atelectasis in the lower lobe with diffuse groundglass throughout the lungs bilaterally. Atypical infection could cause this appearance" - Likely multifactorial: ESRD, CHF, and possibly worsening - Follows with [facility] Pulmonology - Dr. Ceja --> Did bedside US on 01/24/22: Small R pleural effusion with fibrinous material / Small-moderate L pleural effusion with B-lines --> Lower suspicion at that time that R-sided effusion was secondary to infectious etiology - Consulted pulm, no plans for invasive pulmonary procedures, this was discussed with patient who was in agreement (3) Chest pain: Plan: Chest Pain with Elevated Troponin - Acute-onset chest pain associated with SOB, diaphoresis, tremulousness - Initial troponin on arrival minimally elevated 30.7 - lower than last admission --> Patient does have chronically elevated troponin in setting of ESRD - No repolarization or conduction abnormalities on ECG - Monitor on telemetry - Continue ASA, atorvastatin Cardiology consulted. trop peaked at 61 and down trended, echo with wall motion abnormality. Extensive evaluation and discussion between patient and cardiology last night. She is not a surgical candidate due to complex issues, and procedure unlikely to change prognosis and improve quality of life while carrying significant risk. After her/benefits discussion we will not plan to pursue ANIVAL or cardiac catheterization and avoid further invasive testing. (4) Shortness of breath: Plan: - Chronically on 2L with acute exacerbation DOA. No increased O2 requirement. Comfortable on exam without treatment. Etiology no exactly clear of the event prior -- ?hypoglycemia - Suspect primarily due to HFrEF and ESRD primarily - Lower suspicion for interval development of atypical pneumonia or empyema since last admission given clinical appearance and lack of symptoms -- but considered admit work-up --> PCT/CRP interpretation limited by ESRD --> Clinically without fever/chills and feels she is symptomatically impr oving after dialysis. Following continue O2 wean - No findings at present consistent with PE; would require V/Q scan - Issues as outlined below (5) Chronic systolic CHF (congestive heart failure): Plan: #HFrEF / Moderate-Severe - TTE 12/12/21: Mildly reduced LV function 45-50%, dilated with RWMAs, moderate AR, moderate-severe and moderate MR with elevated MVSP at 40-45 - Continue home medications: hydralazine, isosorbide - Pleural effusions noted; otherwise, does not appear to be overtly volume overloaded - Dr. Diaz consulted, further invasive testing/intervention deferred as noted (6) ESRD (end stage renal disease) on dialysis: Plan: - Receives HD on //, has been attending as scheduled - Cr on admission 2.73 (from last value of 4.65 earlier this month) - Renal diet. Continue sevelamer -Neurology consulted for dialysis Patient seen postdialysis 02/08, extremely fatigued but reports feels relatively normal for a postdialysis day. Tolerated well, has not hypotensive. (7) Hypertension: Plan: - Continue atorvastatin, amlodipine, isosorbide, hydralazine (8) Anemia: Plan: - Above baseline for patient in setting of ESRD -Stable, uptrending (9) Depression: Plan: - Continue venlafaxine Plan Lengthy discussion with patient regarding her code status, she decided to be a DNR/DNI and does not wish to pursue heroic measures to sustain her life given her multiple chronic comorbidities. She is still wishing to pursue HD and is not at all interested in moving to hospice. Discussed with her about speaking with palliative care team which she seemed receptive, however, given that she is now considering valve repair, would hold off on consulting palliative medicine as this could improve her increasing effusions if her valvular disease was corrected. If it is determined that she is NOT a candidate for valve repair/replacement, then would strongly consider palliative care consult to assist patient in establishing her goals with discharge. She has clearly stated that she does not wish to go to rehab or SNF and her daughter is not interested in this either. After decision-making conversation with cardiology above patient has deferred cardiac catheterization and ANIVAL and further invasive testing as they are unlikely to significantly change her prognosis/quality of life, and carry significant risk. Patient is very clear that she is not interested in hospice and her overall care goals are to extend her life as long as possible and to meet her great grandson rather than comfort oriented goals. She is open to meeting with palliative care for symptomatic management, and is deferring invasive testing due to increased risk and likelihood of shortening life should complications Admission and Anticipated Discharge Date Admission Date: February 07, 2022 Subjective Seen just postdialysis. Reports she had an extended discussion with cardiology last night, is not pursuing surgical intervention or catheterization at this time. She reports her goals are to continue all medical treatments to extend her life, but to avoid risky surgeries that may not benefit her or run high risk of shorten her life/complications. She would like to continue hemodialysis. She notes her care goals are to live long enough to meet her great grandson, and are time oriented so that she may spend additional time with family rather than comfort oriented. With this in mind she is open to a palliative care consultation either inpatient or outpatient to help manage the symptoms of her chronic diseases, but is not interested in hospice. At time bedside assessment she feels weak and extremely tired, she notes that dialysis is taxing and she of ten will sleep from 3:00 on after on days of dialysis. At time of assessment she has no shortness of breath, difficulty breathing, chest pain, chest pressure or other pain. Her goal is to progress home, after resting on day of dialysis. No acute questions or concerns at bedside Review of Systems Review of Systems: All systems reviewed & are unremarkable except as noted in Subjective Physical Exam Physical Exam: General: Fatigued but nontoxic. Alert and oriented x3. No acute distress HEENT: Atraumatic, normocephalic. And hearing grossly intact Pulm: Diminished, no wheezes/rales/crackles symmetrical chest rise. No increase in work of breathing. No respiratory distress. Cardiac: RRR, stock murmur present. Radial pulses intact and symmetrical. Abdominal: Nontender, nondistended, soft. BS present. Results & Data Results & Data ([facility]) Vital Signs (Past 12 Hours) Vital Signs Temp Pulse Pulse Pulse Resp BP BP 02/08/22 13:45 36.4 C L 90 18 02/08/22 12:35 36.5 C 82 126/62 02/08/22 12:00 82 126/52 L 02/08/22 11:30 72 126/53 L 02/08/22 11:00 78 123/55 L 02/08/22 10:30 77 114/52 L 02/08/22 10:00 76 141/55 H 02/08/22 09:56 67 02/08/22 09:30 73 137/57 L 02/08/22 09:00 71 137/61 02/08/22 08:47 36.5 C 74 02/08/22 07:20 36.5 C 70 20 152/66 H 02/08/22 02:37 36.5 C 76 18 144/68 H Pulse Ox O2 Del Method O2 Flow Rate 02/08/22 13:45 02/08/22 12:35 02/08/22 12:00 02/08/22 11:30 02/08/22 11:00 02/08/22 10:30 02/08/22 10:00 02/08/22 09:56 02/08/22 09:30 02/08/22 09:00 02/08/22 08:47 02/08/22 07:20 97 Nasal Cannula 2 02/08/22 02:37 95 Room Air PG Care Time/CCT Total # of Minutes Spent Total Time Spent with Patient: Total time spent is greater than 50% in coordination of care (as documented) at patient's floor/unit and/or counseling patient: Coding Level of Care Code 00266 Subseq Hosp Care Lvl 2 Diagnoses Hypoglycemia E16.2 Bilateral pleural effusion J90 Chest pain R07.9 Shortness of breath R06.02 Chronic systolic CHF (congestive heart failure) I50.22 ESRD (end stage renal disease) on dialysis N18.6; Z99.2 Hypertension I10 Hypertension type: unspecified Anemia N18.6; D63.1; Z99.2 Anemia type: due to chronic kidney disease Chronic kidney disease stage: on chronic dialysis Depression F32.9 (1) Hypertension Hypertension type: unspecified Qualified Code(s): I10 - Essential (primary) hypertension (2) Anemia Anemia type: due to chronic kidney disease Chronic kidney disease stage: on chronic dialysis Qualified Code(s): N18.6 - End stage renal disease; D63.1 - Anemia in chronic kidney disease; Z99.2 - Dependence on renal dialysis
[2022-02-08] MEDS: ATORVASTATIN 40 MG TAB PO SCH (21:05)
[2022-02-09] MEDS: HEPARIN SOD 5,000 UNIT/0.5 ML VIAL SQ SCH ×2 (05:43→13:51)
[2022-02-09 07:09] LABS: Anisocytosis Present; Basophilic Stippling 1+; Basophils # (auto) 0.09 K/uL (0-0.2); Basophils % (auto) 0.9 %; Eosinophils # (auto) 0.38 K/uL (0-0.50); Eosinophils % (auto) 3.9 %; Hematocrit (blood only) 35.8 % (34.1-44.9); Hemoglobin 9.8 g/dl (12.0-16.0); Immature Granulocytes # (auto) 0.43 K/uL (0.00-0.02); Immature Granulocytes % (auto) 4.5 %; Lymphocytes # (auto) 0.95 K/uL (1.2-3.4); Lymphocytes % (auto) 9.8 %; Mean Corpuscular Hemoglobin 24.8 pg (25.0-34.0); Mean Corpuscular Hgb Conc 27.4 g/dL (32.0-36.0); Mean Corpuscular Volume 90.6 fL (80.0-100.0); Mean Platelet Volume 8.7 fL (9.4-12.3); Monocytes # (auto) 0.96 K/uL (0.24-0.82); Monocytes % (auto) 9.9 %; Neutrophils # (auto) 6.85 K/uL (1.4-6.5); Nucleated RBC # (auto) 0.03 K/uL (0-0); Nucleated RBC % (auto) 0.3 %; Platelet Count 309 K/uL (130-400); Polychromasia 1+; RDW Coefficient of Variation 21.8 % (11.5-14.5); RDW Standard Deviation 67.7 fL (36.4-46.3); Red Blood Count 3.95 M/uL (3.93-5.22); White Blood Count 9.66 K/ul (4.8-10.8)
[2022-02-09 07:47] LABS: BUN Creatinine Ratio 12.4 (10-20); Creatinine Clr Calc Pharmacy 22.7 ml/min; Est GFR (African American) 30.9 ml/min; Est GFR (Non-African American) 26.7 ml/min; Magnesium 2.2 mg/dl (1.7-2.4); Potassium 4.1 mmol/L (3.5-5.1)
--- NOTE | 2022-02-09 08:53 | Nephrology Progress Note ---
Date of Service February 09, 2022 Assessment & Plan (1) End-stage renal disease on hemodialysis: Plan: * ESKD on HD MWF at [facility]. HD has been challenging due to progressive weight loss * Plan next HD on Friday (2) Frailty: Plan: * Weight has dropped 94 lbs over the last 12 months (217 --> 123 lbs) * Patient relates weight loss to being edentulous and poor oral intake * 01/[address] negative for malignancy * Last mammogram 2018 negative for malignancy * FOBT pending * Patient declines SNF (3) Chronic systolic CHF (congestive heart failure): Plan: * Valvular heart disease and progressive weight loss requiring frequent adjustment of EDW are contributing factors (4) Hypoglycemia: Admission and Anticipated Discharge Date Admission Date: February 07, 2022 Subjective Ms. Bolivar was evaluated in her hospital room this morning. She c/o weakness and requires assistance w/ ADL's. She was breathing comfortably on O2 at 2 L/min NC Review of Systems Constitutional: + weakness; no fever Eyes: no problem reported Ear, Nose, Mouth, Throat: no problem reported Respiratory: no dyspnea Cardiovascular: no chest pain Gastrointestinal: no abdominal pain and no diarrhea/loose stools Physical Exam Constitutional: + ill appearing; not in distress Eyes: PERRL, conjunctivae normal, anicteric sclerae ENMT: external ear and nose normal, oropharynx normal Neck: trachea midline, no thyromegaly Respiratory: normal respiratory effort, lungs clear to auscultation Cardiovascular: Rate/Rhythm: regular rate and regular rhythm Gastrointestinal (Abdomen): normal bowel sounds, soft, nontender, no hepatosplenomegaly Results & Data ([facility]) Vital Signs (Past 12 Hours) Vital Signs Temp Pulse Pulse Resp BP Pulse Ox O2 Del Method 02/09/22 08:00 36.5 C 90 20 154/61 H 94 Nasal Cannula 02/09/22 07:33 60 02/09/22 02:49 36.6 C 78 20 156/57 H 95 Nasal Cannula 02/08/22 22:24 80 02/08/22 23:01 36.3 C L 84 20 134/50 L 92 Nasal Cannula 02/08/22 21:10 Nasal Cannula O2 Flow Rate 02/09/22 08:00 2 02/09/22 07:33 02/09/22 02:49 2 02/08/22 22:24 02/08/22 23:01 2 02/08/22 21:10 2 Laboratory Results Laboratory Tests 02/09/22 02/09/22 06:16 06:16 WBC 9.66 Hgb 9.8 L Hct 35.8 Plt Count 309 Sodium 135 L Potassium 4.1 Chloride 102 Carbon Dioxide 28 BUN 22 Creatinine 1.78 H D Glucose 108 H PG Care Time/CCT Total # of Minutes Spent Total Time Spent with Patient: Total time spent is greater than 50% in coordination of care (as documented) at patient's floor/unit and/or counseling patient: Coding Level of Care Code 93180 Subseq Hosp Care Lvl 3 Diagnoses End-stage renal disease on hemodialysis N18.6; Z99.2 Frailty R54 Chronic systolic CHF (congestive heart failure) I50.22 Hypoglycemia E16.2
[2022-02-09] MEDS: ASPIRIN 81 MG ECTAB PO SCH (09:13)
[2022-02-09] MEDS: amLODIPine BESYLATE 5 MG TAB PO SCH (09:13)
[2022-02-09] MEDS: ISOSORBIDE MONO EXTENDED REL 60 MG TABCR PO SCH (09:13)
[2022-02-09] MEDS: hydrALAZINE TAB 50 MG TAB PO SCH ×2 (09:13→13:51)
[2022-02-09] MEDS: VENLAFAXINE HCL XR 150 MG CAPXR PO SCH (09:13)
[2022-02-09] MEDS: SEVELAMER HCL 800 MG TABLET PO SCH ×2 (09:13→12:19)
[2022-02-09] MEDS: INSULIN ASPART PER UNIT SC SCH ×2 (09:14→12:17)
[2022-02-09] MEDS: DOCUSATE SODIUM 100 MG CAP PO SCH (09:16)
--- NOTE | 2022-02-09 11:54 | Discharge Summary ---
Date of Service February 09, 2022 Admission HPI Per Admitting Provider This is a 81-year-old female with a history of HFrEF and severe , ESRD on dialysis, bilateral pleural effusions with right-sided trapped lung (tapped in 12/2020 - transudative bilaterally; again 12/2021, negative for malignancy) s/p chest tube placemenet, type 2 diabetes, dyslipidemia, hypertension, chronic anemia, depression who presented to [facility] for evaluation of shortness of breath and chest pressure. Patient says that she was at her baseline level of health since discharge until around 11 PM earlier this evening, when she had acute onset shortness of breath, central chest pressure (like a elephant is sitting on my chest "); her daughter also said she appeared diaphoretic, pale, and "shaky." Her continuous glucose monitor read 80 at this time, per daughter, and EMS glucometer also read something similar. Daughter said that her mentation was not normal at this time; denied any unilateral weakness. No seizure activity. She was brought to the emergency department for further evaluation via EMS. At that time, she was found to have a blood sugar of 30. D50 was given and subsequently increased back to the 100s. Per daughter, insulin is administered by family 3 times a day on a sliding scale; she believes the correction factor is 30. She also receives Lantus 4 units nightly. Her BSGs earlier on the day prior to admission were apparently >300, and she reprotedly received ~3-4U. Neither of these have changed recently. Of note, patient was recently admitted and discharged on 01/31/2022 for acute respiratory failure with hypoxia likely secondary to volume overload, subsequently found to have right-sided hydrothorax; thought is that her symptoms were due to from missed dialysis primarily. Medications reviewed and include Tylenol, amlodipine, vitamin C, aspirin, atorvastatin, vitamin D, Dulcolax, hydralazine, insulin aspart 7 units 3 times daily, insulin glargine 4 units every afternoon, isosorbide mononitrate, MiraLAX, sevelamer, venlafaxine. In the ED, patient was found to have largely normal vital signs; she was saturating 98% on her baseline 2L. Admission labs demonstrated high normal white count 10.7, chronic anemia 9.3, relative neutrophilia/lym phopenia/monocytosis, chemistries revealing BUN 33/creatinine 2.73 (improved from creatinine 4.65 on 01/30), admission blood sugar 30, calcium 11.3, normal LFTs, TSH 3.2. COVID-negative. CTA-Chest STAT-Rad: "Small hydropneumothorax on the right. The amount of air is decreased but the amount of fluid is increased from prior study. Small left-sided pleural effusion with pleural thickening is unchanged. Rounded atelectasis in the lower lobe with diffuse groundglass throughout the lungs bilaterally. Atypical infection could cause this appearance". She was given an amp of D50. Principal Diagnosis Hypoglycemia Discharge Exam Constitutional well developed; + not well nourished and no acute distress Eyes + anicteric sclerae; normal pupil size Respiratory normal respiratory effort; no respiratory distress Auscultation: + diminished lung sounds (bibasal); no crackles and no wheezes Cardiovascular Rate/Rhythm: regular rate and regular rhythm Extremities: + pedal edema Gastrointestinal (Abdomen) normal bowel sounds, soft, nontender, no hepatosplenomegaly Psychiatric A+Ox3, euthymic affect Discharge Data Allergies Allergy/AdvReac Type Severity Reaction Status Date / Time codeine AdvReac Mild DOES NOT Verified 02/12/22 15:[address] THE [address] IT MAKES HER FEEL. Consultations 02/06/22 03:32 ED Decision to Admit Stat 02/06/22 04:55 Consult Cardiology Routine 02/06/22 05:00 Consult Nephrology Routine 02/06/22 09:20 Consult Pulmonology Routine Ordered Studies 02/06/22 02:06 CT chest diagnostic wo con Urgent Hospital Course (1) Hypoglycemia: Sonam Bolivar is a 81 year old female admitted to [facility] from February 06 - February 09, 2022 due to shortness of breath and diaphoresis. Suspect these symptoms were due to hypoglycemia and her insulin has been reduced to reduce the risk of this happening again. She should continue to take her usual Lantus 4 units at night. Recommend loosening her short acting insulin aspart to 2 units with meals (only if eating) plus a correction factor ACHS of 1 units for every 50mg/dl > 150. Her fluid management was managed by nephrology and dialysis during her inpatient stay. Given her multiple readmissions and frailty we did discuss hospice care which she declined at this time. She declined long-term placement despite physical and occupational therapy recommendations and wished to be discharged home at this time. She has o xygen at home and is requiring 2LPM O2 on discharge. (2) Bilateral pleural effusion: (3) Chest pain: (4) Shortness of breath: (5) Chronic systolic CHF (congestive heart failure): (6) ESRD (end stage renal disease) on dialysis: (7) Hypertension: (8) Anemia: (9) Depression: Total Time Total Time Spent Total Time Spent (In Minutes): 40 Discharge Plan Discharge Items Patient Disposition: Home - Home Health Services Reason For Visit: HYPOGLYCEMIA Discharge Diagnosis: Hypoglycemia Activity: Resume your previous activity Non-emergency contact: Primary Care Provider Call non-emergency contact if: you have any medication questions and your symptoms worsen Follow-up/Referrals: David Lopez III, CRNP [Primary Care Provider] - 02/12/22 9:20 am Diet: Dialysis Renal Addtl Attending Provider Instructions: You were admitted to [facility] from February 06 - February 09, 2022 due to shortness of breath and sweating. Suspect these were due to your low glucose. Your insulin has been reduced to reduce the risk of this happening again. Please continue to take your usual Lantus 4 units at night. Recommend loosening your short acting insulin aspart to 2 units with meals (only take if eating) plus a correction factor before each meal and at night of 1 units for every 50mg/dl > 150. ie. 1 units for glucose 150-199, 2 units for glucose 200- 249, 3 units for glucose 250-299, 4 units for glucose 300-349, 5 units for glucose 350-399. If over 400 call your primary care physician. Pending Studies at Discharge: No Stand-Alone Forms: My [facility], Smoking Cessation Medications and DC Order Prescriptions: Continued venlafaxine 150 mg capsule,extended release 24hr 150 mg PO QAM ascorbic acid (vitamin C) 500 mg tablet 500 mg PO QAM (DME) pen needle, diabetic [BD Ultra-Fine [place] Pen Needle] 32 gauge x 5/32" needle See Rx Instructions .ROUTE .MEDSUPPLY Qty: 400 3RF Rx Instructions: use 4 needles daily aspirin [Adult Aspirin Regimen] 81 mg tablet,delayed release (DR/EC) 81 mg PO DAILY Qty: 30 11RF polyethylene glycol 3350 17 gram/dose powder 17 g PO DAILY PRN (Reason: Constipation) Qty: 510 11RF docusate sodium 100 mg capsule 100 mg PO BID Qty: 180 1RF sevelamer HCl 800 mg tablet 800 mg PO TID Qty: 270 1RF Rx Instructions: must administer with a meal/food isosorbide mononitrate 120 mg tablet extended release 24 hr 120 mg PO QAM Qty: 90 3RF Label Comments: "if she wrote it down I took it" atorvastatin 80 mg tablet 80 mg PO HS Qty: 90 3RF (DME) Portable Oxygen Misc See Rx Instructions .MEDSUPPLY Qty: 1 0RF Rx Instructions: Oxygen 2 liters continuous via nasal cannula on exertion with portable concentrator. PATTI 99 insulin glargine [Lantus Solostar U-100 Insulin] 100 unit/mL (3 mL) insulin pen 4 unit subcut QPM Qty: 15 1RF Rx Instructions: Changed by Dr. Mcnair betamethasone dipropionate 0.05 % cream 1 applic topical DIRECTED PRN (Reason: Skin Irritation) cholecalciferol (vitamin D3) 25 mcg (1,000 unit) capsule 50 mcg PO BID PreserVision AREDS [id number] Capsule 1 cap PO BID amlodipine 5 mg tablet 5 mg PO BID Rx Instructions: TAKE 1 TABLET BY MOUTH TWICE DAILY acetaminophen [Tylenol Extra Strength] 500 mg Tablet 1,000 mg PO Q8H PRN (Reason: Pain) menthol-zinc oxide [Calmoseptine] 0.44-20.6 % ointment 1 applic TOPICAL TID PRN (Reason: NEEDED) multivitamin Tablet 1 tab PO QAM Changed insulin aspart U-100 [Novolog Flexpen U-100 Insulin] 100 unit/mL (3 mL) insulin pen 2 unit subcut TIDM Qty: 30 3RF Rx Instructions: Only take if eating meal Plus correction scale 1 unit for every glucose 50mg/dl above 150 ACHS No Action hydralazine 50 mg tablet 100 mg PO TID Qty: 540 1RF Discharge Orders: Discharge Order (Routine); Ordered 02/09/22 Ordered By: Miguel Angel Kennedy Admission Data Admit Date/Time: 02/06/22 03:33 Attending Provider: Miguel Angel Kennedy Admit Provider: Rick Andres Primary Care Provider: David Lopez III Other Providers: Madan Quiles ; Sekou Davidson ; Mark Stephens ; [place] ; David Watkins ; Jorge Hamm Jr ; Patrice Berrios ; Miri Elizondo ; Christianne Lorenzo ; Luis Diaz ; Aamir Travis ; Davon Longoria ; Ivelisse Banerjee ; Marsha Minor ; Malick Pichardo ; Jonny Engel ; Zohaib Ham ; [place] [facility]. ; Nimesh Demarco ; Sanjay Spangler ; Miguel Angel Felix ; Melinda Shipman ; Atul Schneider ; Arlette Man ; Enzo Ceja ; [facility] Other Interventions: Discharge Summary Assessment (RN) Last Done: 02/09/22 12:10 Coding Level of Care Code D/C DAY MANAGEMENT >30 MINS Diagnoses Hypoglycemia E16.2 Bilateral pleural effusion J90 Chest pain R07.9 Shortness of breath R06.02 Chronic systolic CHF (congestive heart failure) I50.22 ESRD (end stage renal disease) on dialysis N18.6; Z99.2 Hypertension I10 Hypertension type: unspecified Anemia N18.6; D63.1; Z99.2 Anemia type: due to chronic kidney disease Chronic kidney disease stage: on chronic dialysis Depression F32.9 Home Health Attestation I certify that this patient is under my care and that I, or a physicians foundation assistant working with me, had a face to-face encounter that meets the home health [id number] encounter requirements with this patient. The encounter with the patient was in whole, or in part, for the following medical condition, which is the primary reason for home health care (list medical condition): weakness/hypoglycemia, bilateral pleural effusions I certify that, based on my findings, the following services are medically necessary home health services: My clinical findings support the need for the above services because: OT Assess ADL Status and Restore Function w ADLs PT Assessment for Endurance / Balance / Strength PT Eval for Safety and Mobility PT Eval for Safety, Gait Training, Assistive Devices PT Gait and Balance Training, Strengthening and Safety Skilled Nsg Assessment Further, I certify that my clinical findings support that this patient is homebound (i.e. absences from home require considerable and taxing effort and are for medical reasons or congregation services or infrequently or of short duration when for other reasons) because: Chair Bound; Requires Transfer Assist Supportive Aid - Wheelchair Certification for Home Health Services: Based on the above findings, I certify that this patient is confined to the home and needs intermittent senior care care, physical therapy and/or speech therapy or continues to need occupational therapy. The patient is under my care, and I have initiated the establishment of the plan of care. This patient will be followed by a physician who will periodically review the plan of care.
[2022-02-09] MEDS ORDERED: LANTUS PER UNIT CHARGE SQ SCH (21:00)
== END 2022-02-09 16:10 | disposition home health service (06) ==
LOC: EDINP 00:44 → ED 00:44 → SUATTDRO 03:33 → 2N 05:18 → SUATTDRO 02-07 18:41